=== PATIENT | female | born 1950 | race Hispanic/Latino ===

== ENCOUNTER 2020-01-24 10:49 | Emergency (ER) | payer MEDICARE, OTHER, SELFPAY ==
[2020-01-24] VITALS (29 sets, daily range): BP systolic 147–205; BP diastolic 51–156; PULSE 60–73; RESP 12–20; TEMP 36.6; O2SAT 95–100
--- NOTE | 2020-01-24 11:04 | ECG_ITS ---
Measurements Intervals [place] Rate: 69 P: 44 MT: 168 QRS: -40 QRSD: 147 T: 18 QT: 451 QTc: 484 Interpretive Statements SINUS RHYTHM RIGHT BUNDLE BRANCH BLOCK BASELINE ARTIFACT- II, III, AVF, V3 ABNORMAL ECG Electronically Signed On 01-24-2020 13:40:04 CDT by Fito Mcintosh D.O.
[2020-01-24 11:13] LABS: Basophils Absolute Auto 0.1 K/mm3 (0.0-0.1); Basophils Percent Auto 0.3 % (0.2-1.2); Eosinophils Absolute Auto 0.1 K/mm3 (0-0.3); Eosinophils Percent Auto 0.4 % (0-4.4); Hematocrit 31.7 % (37.0-47.0); Hemoglobin 9.7 g/dL (12.0-15.0); Immature Granulocyte Absolute 0.12 K/mm3 (0.00-0.031); Immature Granulocyte Percent A 0.8 % (0-0.5); Lymphocytes Absolute Auto 0.97 K/mm3 (0.9-3.2); Lymphocytes Percent Auto 6.6 % (18.3-44.2); Mean Corpuscular HGB Conc 30.6 g/dl (32-36); Mean Corpuscular Hemoglobin 28.8 pg (26-34); Mean Corpuscular Volume 94.1 fl (80-100); Mean Platelet Volume 10.8 fl (7.4-10.4); Monocytes Absolute Auto 0.5 K/mm3 (0.1-0.6); Monocytes Percent Auto 3.3 % (2.6-8.5); Neutrophils Percent Auto 88.6 % (45.5-73.1); Platelet Count Result 291 k/mm3 (150-375); Red Blood Count 3.37 M/mm3 (4.2-5.4); Red Cell Distribution Width 13.3 % (11.5-14.5); White Blood Count 14.7 K/mm3 (4.5-10.0)
[2020-01-24] MEDS: PANTOPRAZOLE SODIUM IV 40 MG VIAL IV PUSH (11:46)
[2020-01-24] MEDS: SODIUM CHLORIDE 0.9% IV 500 ML 999 ML IV CONT (11:46)
[2020-01-24 12:05] LABS: Phosphorus 4.4 mg/dL (2.5-4.5)
[2020-01-24 12:06] LABS: Alanine Aminotransferase 8 U/L (4-35); Alkaline Phosphatase 240 U/L (38-126); Aspartate Amino Transferase 15 U/L (14-36); Bilirubin,Total 0.2 mg/dL (0.2-1.3); Lipase 51 U/L (23-300)
[2020-01-24 12:07] LABS: Anion Gap 5 mmol/L (8-16); Blood Urea Nitrogen 29 mg/dL (7-17); Calcium 8.1 mg/dL (8.4-10.2); Carbon Dioxide 28 mmol/L (22-30); Chloride 106 mmol/L (98-107); Estimated Glomerular Filt Rate 26; Glucose 230 mg/dL (65-105); Potassium 4.1 mmol/L (3.4-5.0); Sodium 139 mmol/L (137-145)
[2020-01-24 12:11] LABS: Lipase 49 U/L (23-300)
[2020-01-24 14:02] LABS: Add Urine Microscopic? YES; Appearance Urine Clear (Clear); Bacteria Urine 1+ /hpf; Bilirubin Urine Negative (Negative); Blood Urine Negative (Negative); Color Urine Yellow (Yellow); Glucose Urine UA 3+ mg/dL (Negative); Ketones Urine Negative (Negative); Leukocyte Esterase Ur Negative LEU/UL (Negative); Mucus Urine Rare /lpf; Nitrate Urine Negative (Negative); Protein Urine 3+ mg/dL (Negative); Specific Grav Ur 1.025 (1.001-1.035); Urobilinogen Urine Negative mg/dL (<2.0)
--- NOTE | 2020-01-24 14:12 | ED.GENADULT ---
HPI - General Adult General Chief complaint: Unspecified Stated complaint: HOT FLASHES AND PUKING Time Seen by Provider: 01/24/20 11:06 Source: patient and family Mode of arrival: ambulatory Limitations: no limitations History of Present Illness HPI narrative: Patient is a 69-year-old female who presented to emergency department with family for evaluation of nausea and 1 episode of emesis today noting that she did not feel well this morning but had felt fine yesterday patient has history of renal dialysis and history of infection of the right foot and is currently being scheduled to have amputation patient receives her antibiotics at dialysis and has been compliant with dialysis which she has tomorrow patient on arrival to emergency department in the room in no distress resting comfortably on arrival denying pain. Related Data Home Medications Medication Instructions Recorded Confirmed amlodipine 10 mg PO DAILY 11/03/19 11/03/19 apixaban 5 mg PO BID 11/03/19 11/03/19 carvedilol 25 mg PO BID 11/03/19 11/03/19 gabapentin 200 mg PO TID 11/03/19 11/03/19 insulin aspart U-100 [Novolog 8 unit SUBCUT TID 11/03/19 11/03/19 Flexpen U-100 Insulin] insulin degludec [Tresiba U-100 24 unit SUBCUT HS 11/03/19 11/03/19 Insulin] losartan 50 mg PO DAILY 11/03/19 11/03/19 pravastatin 40 mg PO DAILY 11/03/19 11/03/19 vancomycin in 0.9 % sodium chl 1 g IV Q12H 11/03/19 11/03/19 cefepime 1 g IM EVERY OTHER DAY 01/24/20 clopidogrel 75 mg PO DAILY 01/24/20 Allergies Allergy/AdvReac Type Severity Reaction Status Date / Time No Known Allergies Allergy Verified 01/24/20 10:55 Review of Systems Review of Systems: All systems reviewed & are unremarkable except as noted in HPI and below PMFSH Past Medical History Medical History (Updated 01/24/20 @ 14:19 by Graeme Oconnor PA-C) Below knee amputation Chronic kidney disease Diabetes mellitus Hypertension Osteomyelitis Family History Family History (Updated 12/30/15 @ 23:19 by DOCTOR UNKNOWN) Mother Family history of diabetes mellitus in first degree relative Father Family history of lung cancer Social History Social History (Reviewed 01/24/20 @ 14:15 by NATALI Prado Smoking status: Former smoker Smoking end date: 06/03/15 Alcohol intake: current Gender identity (if verbalized by the patient): Female Exam Narrative: Exam Narrative: GENERAL: Chronically ill-appearing, well-nourished, and in no acute distress. HEAD: Normocephalic, atraumatic. EYES: PERRLA and EOMI. ENT: Nares clear, no rhinorrhea or epistaxis. Mucous membranes moist. Oropharynx without tonsillar hypertrophy exudate or other lesions. NECK: Supple. No adenopathy or masses. CHEST: Clear to auscultation. No respiratory distress. No wheezes rales or rhonchi HEART: Regular rate and rhythm. No murmur heard. Normal peripheral pulses. ABDOMEN: Soft, nontender, nondistended. EXTREMITIES: Normal range of motion. No edema. Patient with left below the knee amputation. Patient with osteomyelitis infection of the right foot which she has been treated for SKIN: Warm, dry, no rash. NEURO: No focal deficits. Alert and oriented x3. Cranial nerves II through XII grossly intact PSYCH: Normal mood and affect. Course Course Emergency Course: Patient in the room at this time resting comfortably in no distress aware of case findings treatment plan and diagnosis follow-up with specialist and primary care patient was given fluid bolus coupled with nausea medication with improvement and is tolerating p.o. intake feeling much better at this time will be discharged home with family who feels comfortable with this plan Vital Signs Vital signs: Vital Signs Temperature 97.8 F 01/24/20 10:52 Pulse Rate 65 01/24/20 10:52 Respiratory Rate 12 01/24/20 10:52 Blood Pressure 147/112 H 01/24/20 10:52 Pulse Oximetry 99 01/24/20 10:52 Temperature 97.8 F 01/24/20 10:52 Pulse Rate 62 08
== END 2020-01-24 14:33 | disposition home or self-care (01) ==
PROVIDERS: Emergency Medicine Emergency Medical Services; Emergency Provider Emergency Medicine; PCP Internal Medicine
DX: R11.2 Nausea with vomiting, unspecified (principal); E11.22 Type 2 diabetes mellitus with diabetic chronic kidney disease; I12.0 Hypertensive chronic kidney disease with stage 5 chronic kidney disease or end stage renal disease; N18.6 End stage renal disease; Z99.2 Dependence on renal dialysis; Z79.4 Long term (current) use of insulin; Z89.519 Acquired absence of unspecified leg below knee; Z87.891 Personal history of nicotine dependence
CPT/HCPCS: 36415; 51701; 80048; 80076; 81001; 83690; 83735; 84100; 85025; 93005; 96361; 96374; 96375; 99284; C9113; J0131; J7040

== ENCOUNTER 2020-01-28 07:45 | Outpatient (RCR) | payer MEDICARE, SELFPAY ==
[2019-11-03 12:10] VITALS: BMI 27.4
--- NOTE | 2019-11-03 12:30 | P.PNWOUND_ITS ---
Wound Care Note Date/Time: 11/03/19 12:30 Assessment and Plan Additional Plan Observe hand after antibiotics are stopped. Review records from her doctors for indications for antibiotics chosen. Continue wound care at [facility]. Change to Santyl daily at home. F/U Wound Center 2 weeks. to see in 1 month Review of Systems Review of Systems: Narrative: End stage renal diabetic followed in [place]. We see her for open surgical wound of the left ring and small finger amputation sites. Surgery done at [facility] and the surgeon chooses not to follow the open dehisced wound. Onset apparently due to vascular steal related to now ligated A-V fistula. Has been on IV Vanco and oral cefalosporin and Metronidazole No negative progression of wound. No drainage. No erythema. Thick yellow dry slough over entire area of sound. Also on thr 2nd metacarpal phalangeal joint radial aspect. That site likely caused by dressings. No new wounds. Antibiotics to stop this week.
--- NOTE | 2019-11-03 14:07 | PCWOUND ---
WOCN NOTE Wound care not following patient for right heel and right foot wound as patient is being followed at [facility] for these wounds.
--- NOTE | 2019-12-01 12:24 | WPDWOUNDNOTE ---
Wound Care Note Date/Time: 12/01/19 12:24 History: Ray amputation of Left 4th and 5th fingers of left hand at [facility] for complications of dialysis fistula. Referred for wound care. Wound width: 6.0 Wound length: 1.5 Wound depth: Undetermined. Drainage: n Surrounding tissue appearance: No cellulitis Tunneling: n Percentage granulation tissue: 2 Treatment/Procedures: kWound measurements improved by 50%. Minimal debridements. Same care. F/Davina in 1 month
--- NOTE | 2019-12-24 09:22 | PCWOUND ---
WOCN NOTE patients daughter called to cancel appointment, she wants to see Dr Rocha at a different date. she will call Dr's office to make a new appointment.
== END 2020-02-01 23:59 | disposition home or self-care (01) ==
LOC: ANHWOC 07:45
PROVIDERS: PCP Internal Medicine; Visit Provider Plastic Surgery
DX: L89.619 Pressure ulcer of right heel, unspecified stage (principal); T81.31XD Disruption of external operation (surgical) wound, not elsewhere classified, subsequent encounter
CPT/HCPCS: 99212; 99213; A9270; G0463

== ENCOUNTER 2020-02-09 11:33 | Outpatient (RCR) | payer MEDICARE, OTHER, SELFPAY ==
[2020-02-02 00:03] VITALS: BMI 27.4
--- NOTE | 2020-02-09 16:53 | WPDWOUNDNOTE ---
Wound Care Note Date/Time: 02/09/20 16:53 History: Open surgical wound left ulnar hand. History of amputation of left 4th and 5th finger. History of A-V shunt vascular steal. Type 2 Diabetes Mellitus End stage renal disease. S/P left BKA. Chronic diabetic right foot wound. Diabetic cardiovascular disease. Assessment and Plan Additional Plan Continue current wound care to hand. Right AKA pending soon per Ortho. Plastic Surgery to F/U one month. Exam Narrative: Exam Narrative: Granulating amputation site 4th and 5th rays. Bone no longer exposed. 1.5 x 4.5 cm. Extrem: General: edema Left upper extremity: hand Hand/finger images: 1. wound site
== END 2020-05-09 23:59 | disposition home or self-care (01) ==
LOC: ANHWOC 11:33
PROVIDERS: PCP Internal Medicine; Visit Provider Plastic Surgery
DX: L89.619 Pressure ulcer of right heel, unspecified stage (principal); T81.31XD Disruption of external operation (surgical) wound, not elsewhere classified, subsequent encounter
CPT/HCPCS: 11042

== ENCOUNTER 2020-02-16 00:37 | Outpatient (CLI) | payer MEDICARE, OTHER, SELFPAY ==
[2020-02-16 17:26] LABS: SARS-CoV-2 RNA PCR Negative
== END 2020-02-16 00:38 | disposition home or self-care (01) ==
LOC: ANHCOVIDDT 00:38
PROVIDERS: PCP Internal Medicine; Visit Provider Orthopaedic Surgery
DX: Z01.812 Encounter for preprocedural laboratory examination (principal); Z20.828 Contact with and (suspected) exposure to other viral communicable diseases
CPT/HCPCS: 87635; C9803; U0003

== ENCOUNTER 2020-02-19 10:00 | Inpatient (IN) | payer MEDICARE, OTHER, SELFPAY ==
[2020-02-11 11:14] VITALS: BMI 27.6
--- NOTE | 2020-02-17 13:39 | WPDANESEPPF ---
Anes - Initial Pre Proc Eval Procedure: Operation Date: 02/18/20 07:30 Proposed Procedures p Right Below Knee Amputation With Immediate Cast - Mauricio Murphy MD Date/Time: 02/17/20 13:39 Surgeon: Mauricio Murphy MD Pre Op Diagnosis: Right Foot Osteomyelitis, Patient Data Age: 69 Gender: F Height: 5 ft 4 in Weight: 73 kg Allergies Allergy/AdvReac Type Severity Reaction Status Date / Time No Known Allergies Allergy Verified 02/18/20 06:24 Home Medications Medication Instructions Recorded Confirmed Type apixaban [Eliquis] 5 mg PO BID 11/03/19 02/18/20 History carvedilol 25 mg PO BID 11/03/19 02/18/20 History gabapentin 300 mg PO TID 11/03/19 02/18/20 History insulin aspart U-100 [Novolog 8 unit SUBCUT TID 11/03/19 02/18/20 History Flexpen U-100 Insulin] insulin degludec [Tresiba U-100 24 unit SUBCUT HS 11/03/19 02/18/20 History Insulin] losartan 50 mg PO QAM 11/03/19 02/18/20 History pravastatin 40 mg PO HS 11/03/19 02/18/20 History vancomycin in 0.9 % sodium chl 1 g IV Q12H 11/03/19 02/18/20 History cefepime 1 g IM EVERY OTHER DAY 01/24/20 02/18/20 History clopidogrel 75 mg PO QAM 01/24/20 02/18/20 History acetaminophen 1,000 mg PO Q6H PRN 02/11/20 02/18/20 History amlodipine 2.5 mg PO QAM 02/11/20 02/18/20 History ferrous sulfate 324 mg PO BID 02/11/20 02/18/20 History oxycodone-acetaminophen 1 - 2 tablet PO Q6H PRN 02/11/20 02/18/20 History sertraline 25 mg PO QAM 02/11/20 02/18/20 History Patient hx anesthesia problems: none Family hx anesthesia problems: none PMFSH Past Medical History Medical History (Updated 01/26/20 @ 19:19 by Mauricio Murphy MD) Anemia Arterial vascular disease Below knee amputation Chronic kidney disease Dyalisis Diabetes mellitus Digital arterial occlusive disease Foot osteomyelitis, right High cholesterol History of amputation of finger Hypertension Osteomyelitis Vision abnormalities Surgical History Surgical History (Updated 01/26/20 @ 19:19 by Mauricio Murphy MD) History of amputation below knee left History of amputation below knee Social History Social History Smoking packs per day: 1 Smoking cigarettes per day: 20.0 Years smoked: 40 Smoking pack-years: 40.00 Smoking status: Former smoker Smoking end date: 06/03/15 Alcohol intake: former Alcohol use details: DRANK SOCIALLY YEARS AGO Substance use: never Living arrangements: with family Additional living arrangements comments: LIVES WITH [facility] [phone] Gender identity (if verbalized by the patient): Female Spiritual care concerns: No Anes - Eval Final PreProcedure Day of Procedure 02/17/20 13:39 Patient weight: overweight Heart: regular rate and rhythm Lungs: clear to auscultation Airway: Mallampati scale class III Neurological: alert and oriented Last oral intake: >/= 8 hours ASA classification: III Emergent: no Anesthetic plan: proceed Anesthesia type and monitoring: general LMA (or ETT) and standard monitoring Informed Consent: The patient's anesthetic plan and its attendant risks and benefits were discussed with the patient/family/POA. Questions were solicited and answers provided to the satisfaction of the patient/family/POA.
[2020-02-18] VITALS (11 sets, daily range): BP systolic 161–192; BP diastolic 47–68; PULSE 62–88; RESP 10–18; TEMP 36.2–36.8; O2SAT 96–100; BMI 27.7
--- NOTE | 2020-02-18 07:05 | WPDHPUPDATE1 ---
History and Physical Update Update Date/Time: 02/18/20 07:05 History and Physical has been reviewed, including an updated exam of the patient. There are NO changes in the patient's condition. Covid test negative. Risks, benefits, and alternatives have been discussed and questions answered. Patient agrees to proceed with procedure.
[2020-02-18 07:11] LABS: Glucose Point of Care 99 (65-105)
[2020-02-18] MEDS: SODIUM CHLORIDE 0.9% IV 500 ML 30 ML IV CONT (07:21)
[2020-02-18] MEDS: fentaNYL CITRATE INJ (*CRX) 100 MCG/2 ML VIAL 25 MCG IV PUSH (07:22)
[2020-02-18] MEDS: KETOROLAC 15 MG/ML VIAL (*BKC) IV PUSH (07:22)
[2020-02-18 07:25] LABS: Anion Gap 2 mmol/L (8-16); Blood Urea Nitrogen 12 mg/dL (7-17); Carbon Dioxide 32 mmol/L (22-30); Chloride 103 mmol/L (98-107); Estimated CRCL calculation 27 ml/min; Estimated Glomerular Filt Rate 34; Glucose 105 mg/dL (65-105); Potassium 3.8 mmol/L (3.4-5.0); Sodium 137 mmol/L (137-145)
[2020-02-18] MEDS: ceFAZolin 2 GM/D5W 50 ML 2 GM/50 ML BAG IVPB (07:32)
[2020-02-18 07:43] LABS: INR 1.3; Prothrombin Time 16.1 Seconds (11.1-14.7)
[2020-02-18 07:44] LABS: Partial Thromboplastin Time 47.7 SECONDS (22.3-36.8)
[2020-02-18] MEDS: BUPIVACAINE/EPINEPHRINE 0.5% 30 ML VIAL INFILTRATE (08:27)
[2020-02-18 09:41] LABS: Glucose Point of Care 79 (65-105)
--- NOTE | 2020-02-18 09:49 | P.OP_ITS ---
Procedure Note - Detailed Date of procedure: 02/18/20 Pre-op diagnosis: Right Foot Osteomyelitis, Procedure performed: right below-knee amputation with immediate cast fitting Description of procedure: Indications: Patient is a 69-year-old woman with severe peripheral arterial disease, diabetes with neuropathy and renal failure. She has undergone previous left below-knee amputation. She now has chronic osteomyelitis and ulceration of the right foot. She presents for right below- knee amputation as she was unable to heal the right foot ulcer despite revascularization attempts. What was done: Patient identified in the preoperative holding. Informed consent given. Operative extremity marked. Patient received intravenous antibiotics. Patient brought to the operating room where underwent general anesthetic by anesthesia team. Positioned supine on operating room table. Time-out performed confirming the patient, site of the surgery and the plan. Leg then prepped and draped usual sterile surgical fashion using Betadine prep solution. Calf and leg exsanguinated and a thigh tourniquet inflated to 250 mmHg. Anatomic landmarks mapped out on the skin to allow for a posterior flap and approximately 12 cm of tibia below the tibial tubercle. Skin incision made with a 10 blade knife. Hemostasis controlled electrocautery. Cautery dissection carried down circumferentially through the fascia. Dissection then carried around the proximal fibula, retractors placed in sagittal saw used to transect the fibula. Elevator used to dissect soft tissue off of the tibia. Tibia once again measured and the tibia osteotomy performed with a sagittal saw with retractors posterior to protect the soft tissue. Saphenous vessels and peroneal vessels were identified and ligated with 2 0 silk suture. The peroneal nerve and saphenous nerve identified and anesthetized with 0.5% Marcaine with epinephrine and ligated. Tibia was then brought forward and an amputation knife was placed posterior to the tibia and the distal fibula and the soft tissue was transected away from the bone. The cut was completed through the Achilles tendon. The distal leg ankle and foot were then passed off as specimen. Tibial artery identified and ligated with 2 0 silk suture. Tibial nerve identified and anesthetized with 0.5% Marcaine with epinephrine and ligated. Any other bleeding points coagulated with cautery. The tourniquet was then released. Any further bleeding was controlled with cautery or 2 0 silk suture ligation. After thorough hemostasis the wound was thoroughly irrigated with antibiotic solution. The anterior cortex of the tibia was shaped with the saw to reduce pressure. Thorough irrigation again performed. Myodesis was then performed of the gastrocnemius over the distal tibia using #2 Ethibond suture placed through trans osseous holes in the distal tibia. Fascia then repaired with 0 Vicryl interrupted suture. Subcutaneous tissue repaired with 2 Vicryl and 3 0 Monocryl interrupted suture and skin repaired with randa And 3 0 nylon interrupted suture. Sterile dressing followed by a immediate fitting weight-bearing cast using fiberglass cast material. Patient awoken from anesthesia, extubated and taken to recovery room in stable condition. All sponge needle and instrument counts correct at the end of the case. Anesthesia: GLMA Surgeon: Mauricio Murphy MD Claims Service Adjustor: 1st executive chef assistant Estimated blood loss (mL): 50 Tourniquet time (min): 30 Drains: No Packing: No Pathology: none sent Complications: None Condition: stable Disposition: PACU Findings: FHL and posterior tibial and flexor digitorum musculature dusky. Peroneal calf and tibialis anterior musculature with good vascularity.
--- NOTE | 2020-02-18 11:00 | ADMGEN ---
This patient, Tawana Prado, was admitted to Medical Room 342-01. Patient/family oriented to hospital policies and general routines including ID bracelet, bed and alarms, visiting hours, pain management, procedures, bathroom and other care routines, personal items, smoking policy, room service/diet, and visiting hours. Valuables list has been completed. Information on how to activate the Rapid Response Team has been discussed. Patient/Family are encouraged to report perceived risks to care and to ask questions if they do not understand what they are told or what they should do.
[2020-02-18 11:18] LABS: Glucose Point of Care 79 (65-105)
--- NOTE | 2020-02-18 14:10 | WPDCN ---
Assessment and Plan Assessment and plan (1) Arterial vascular disease: Code(s): I70.90 - Unspecified atherosclerosis Status: Acute Assessment and Plan: Status post right below-knee amputation. Wound care and pain control per Dr. Murphy. (2) End-stage renal disease on hemodialysis: Code(s): N18.6 - End stage renal disease; Z99.2 - Dependence on renal dialysis Status: Acute Assessment and Plan: Nephrology consulted for dialysis on Saturday. (3) Insulin dependent type 2 diabetes mellitus: Code(s): E11.9 - Type 2 diabetes mellitus without complications; Z79.4 - care home (current) use of insulin Status: Acute Assessment and Plan: Continue basal insulin and initiate sliding scale insulin, Accu-Cheks, and hypoglycemic protocol. Check hemoglobin A1c in a.m. (4) Hypertension: Code(s): I10 - Essential (primary) hypertension Status: Acute Assessment and Plan: Blood pressures were reviewed and they are not at goal in the 160s, but seem historically poorly controlled. Continue antihypertensives and monitor closely. (5) Chronic anemia: Code(s): D64.9 - Anemia, unspecified Status: Acute Assessment and Plan: Check hemoglobin and hematocrit in a.m. Additional Plan Thank you for allowing us to participate in this patient's care. Please do not hesitate to contact us with any questions. Supervising physician for this history and physical is Dr. Vanita El. HPI Data of Consult Date/Time: 02/18/20 14:10 Requesting Physician: Mauricio Murphy MD Primary Care Provider: Rut Viera, Consult Narrative Narrative: Tawana Prado is a 69-year-old female with peripheral vascular disease, insulin-dependent diabetes, end-stage renal disease on hemodialysis, hypertension, chronic anemia whom the hospitalist service has been consulted for management of her medical conditions postoperatively. She has suffered from osteomyelitis of the right foot with continued right lower extremity pain for quite some time, and unfortunately attempts at revascularization have been unsuccessful or impossible and thus she presented today for right [id number] amputation. Her surgery was performed today under general anesthesia and there were no immediate complications documented. Estimated blood loss was 50 mL. At the time my evaluation she complains of a 10/10 pain at the site of the amputation and has a difficult time describing the pain. She denies postoperative fever, chills, chest pain, shortness of breath, nausea, and vomiting. Review of Systems Review of Systems: Narrative: Twelve systems were reviewed with pertinent positives and negatives as per HPI. No recent cold or flu symptoms. She denies recent travel and sick contacts. She believes her diabetes is fairly well controlled. No blurry vision, polydipsia, or polyuria. Except as documented, all other systems were reviewed and are negative. [facility] Past Medical History Medical History (Updated 02/18/20 @ 22:37 by Susan Escudero PA-C) Arterial vascular disease Below knee amputation Chronic anemia Diabetes mellitus Digital arterial occlusive disease End-stage renal disease on hemodialysis Foot osteomyelitis, right History of amputation of finger Hyperlipidemia Hypertension 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 Osteomyelitis Surgical History Surgical History (Updated 02/18/20 @ 22:33 by Susan Escudero PA-C) Amputation of right forefoot :Right 4th and 5th ray amputation in 04/2017. :Right foot transmetatarsal a
[2020-02-18] MEDS: GABAPENTIN 300 MG CAPSULE PO ×2 (14:48→22:01)
[2020-02-18] MEDS: FERROUS SULFATE 324 MG TABLET PO (16:44)
[2020-02-18] MEDS: APIXABAN 5 MG TABLET PO (16:44)
[2020-02-18] MEDS: oxyCODONE HCL (*CRX) 5 MG TAB IR PO (16:48)
[2020-02-18] MEDS: diazePAM (*CRX) 5 MG TABLET PO (16:48)
[2020-02-18 17:09] LABS: Glucose Point of Care 130 (65-105)
[2020-02-18] MEDS: INSULIN ASPART (*BKC) 100 UNITS/ML 8 UNITS SUB-Q (17:14)
[2020-02-18] MEDS: MORPHINE SULFATE (*CRX) 2 MG/ML INJ IV PUSH ×2 (18:45→22:02)
[2020-02-18] MEDS: carvediloL 25 MG TABLET PO (20:40)
[2020-02-18] MEDS: DOCUSATE SODIUM 100 MG CAPSULE PO (20:40)
[2020-02-18] MEDS: INSULIN GLARGINE (*BKC) 100 UNITS/ML 24 UNITS SUB-Q (20:40)
[2020-02-18] MEDS: PRAVASTATIN SODIUM 20 MG TABLET 40 MG PO (20:40)
[2020-02-18] MEDS: FAMOTIDINE 20 MG TABLET PO (20:40)
[2020-02-19] VITALS (21 sets, daily range): BP systolic 101–212; BP diastolic 44–70; PULSE 69–82; RESP 16–18; TEMP 36.3–37; O2SAT 93–98; BMI 27.7
[2020-02-19] MEDS: oxyCODONE HCL (*CRX) 5 MG TAB IR PO ×2 (06:03→18:04)
[2020-02-19] MEDS: GABAPENTIN 300 MG CAPSULE PO ×2 (06:03→20:22)
[2020-02-19 06:16] LABS: Basophils Percent Auto 0.3 % (0.2-1.2); Eosinophils Absolute Auto 0.1 K/mm3 (0-0.3); Eosinophils Percent Auto 0.9 % (0-4.4); Hematocrit 26.3 % (37.0-47.0); Hemoglobin 7.8 g/dL (12.0-15.0); Immature Granulocyte Absolute 0.09 K/mm3 (0.00-0.031); Immature Granulocyte Percent A 0.9 % (0-0.5); Lymphocytes Absolute Auto 1.06 K/mm3 (0.9-3.2); Lymphocytes Percent Auto 10.8 % (18.3-44.2); Mean Corpuscular HGB Conc 29.7 g/dl (32-36); Mean Corpuscular Hemoglobin 27.7 pg (26-34); Mean Corpuscular Volume 93.3 fl (80-100); Mean Platelet Volume 10.7 fl (7.4-10.4); Monocytes Absolute Auto 0.7 K/mm3 (0.1-0.6); Monocytes Percent Auto 7.3 % (2.6-8.5); Neutrophils Absolute Auto 7.8 K/mm3 (1.3-6.7); Neutrophils Percent Auto 79.8 % (45.5-73.1); Platelet Count Result 275 k/mm3 (150-375); Red Blood Count 2.82 M/mm3 (4.2-5.4); Red Cell Distribution Width 13.9 % (11.5-14.5); White Blood Count 9.8 K/mm3 (4.5-10.0)
[2020-02-19 06:40] LABS: Anion Gap 4 mmol/L (8-16); Blood Urea Nitrogen 15 mg/dL (7-17); Calcium 7.6 mg/dL (8.4-10.2); Carbon Dioxide 29 mmol/L (22-30); Chloride 102 mmol/L (98-107); Estimated CRCL calculation 26 ml/min; Estimated Glomerular Filt Rate 30; Glucose 108 mg/dL (65-105); Sodium 135 mmol/L (137-145)
[2020-02-19 07:13] LABS: Hemoglobin A1C 6.8 % (<5.7)
[2020-02-19 07:40] LABS: Glucose Point of Care 124 (65-105)
[2020-02-19] MEDS: INSULIN ASPART (*BKC) 100 UNITS/ML 8 UNITS SUB-Q (07:58)
[2020-02-19] MEDS: FERROUS SULFATE 324 MG TABLET PO ×2 (07:59→18:06)
[2020-02-19] MEDS: carvediloL 25 MG TABLET PO ×2 (08:00→20:22)
[2020-02-19] MEDS: CLOPIDOGREL BISULFATE 75 MG TABLET PO (08:00)
[2020-02-19] MEDS: SERTRALINE HCL 25 MG TABLET PO (08:00)
[2020-02-19] MEDS: APIXABAN 5 MG TABLET PO ×2 (08:00→18:06)
[2020-02-19] MEDS: DOCUSATE SODIUM 100 MG CAPSULE PO ×2 (08:00→20:22)
[2020-02-19] MEDS: LOSARTAN POTASSIUM 50 MG TABLET PO (08:00)
[2020-02-19] MEDS: FAMOTIDINE 20 MG TABLET PO ×2 (08:00→20:22)
[2020-02-19] MEDS: amLODIPine BESYLATE 2.5 MG TABLET PO (08:01)
[2020-02-19] MEDS: diazePAM (*CRX) 5 MG TABLET PO ×2 (08:37→18:04)
[2020-02-19] MEDS: MORPHINE SULFATE (*CRX) 2 MG/ML INJ IV PUSH (08:38)
--- NOTE | 2020-02-19 08:46 | PM.PNORT ---
Progress Note: A&P Assessment and Plan (1) Amputation below knee: Code(s): S88.119A - Complete traumatic amputation at level between knee and ankle, unspecified lower leg, initial encounter Status: Acute Assessment and Plan: postoperative day 1. Right below-knee amputation. Cast in place with patient having a lot of pain and difficulty with transfers secondary to the weight of the cast. Plan to remove cast to allow patient to flex knee in to assist with transfers to chair. Reviewed pain control. Valium for muscle spasm. (2) End-stage renal disease on hemodialysis: Code(s): N18.6 - End stage renal disease; Z99.2 - Dependence on renal dialysis Status: Acute Assessment and Plan: Diabetes, renal failure, arterial disease, dialysis. Appreciate hospitalist consultation. Appreciate Nephrology. (3) Arterial vascular disease: Code(s): I70.90 - Unspecified atherosclerosis Status: Acute Subjective Subjective Date/Time Seen: 02/19/20 08:46 patient awake oriented. Complains of right calf pain. Difficulty moving with cast place. Complains of SYLVAIN horses right leg unable to bend knee. Review of Systems Constitutional: Constitutional: Denies fever(s) Eyes: Eyes: Denies blurry vision ENT: Reports Normal hearing present Cardiovascular: Cardiovascular: Denies chest pain and Denies dyspnea Respiratory: Respiratory: Denies dyspnea and Denies wheezing Gastrointestinal: Gastrointestinal: Denies abdominal pain Genitourinary: Genitourinary: Denies urinary urgency and Reports other ( Dialysis) Musculoskeletal: Musculoskeletal: Reports as per HPI Integumentary/Breasts: Skin/Breast: Reports other ( left hand wound with dressing) Neurologic: Reports Normal hearing present, Denies behavioral changes, Denies confusion, Denies numbness and Denies convulsions Psychiatric: Psychiatric: Denies behavioral changes, Denies confusion and Denies hallucinations Endocrine: Endocrine: Denies heat intolerance Hematologic/Lymphatic: Hematologic/Lymphatic: Denies easy bleeding Allergic/Immunologic: Allergic/Immunologic: Denies wheezing Exam Const: General: no acute distress and ill appearing chronically; No in distress or confusion Orientation/consciousness: patient oriented x3 and No confusion HENMT: Head: normal to inspection, normocephalic and atraumatic Eyes: Conjunctivae: conjunctivae normal Sclera: sclerae normal Resp: Effort & Inspection: normal respiratory effort and no audible wheezes Neuro: General: patient oriented x3 and No confusion Extrem: Other: cast in place right leg. Tender at the thigh to palpation. Two finger with at the proximal cast. Left leg amputation incision well-healed. No erythema or warmth. Psych: Affect: normal affect Objective Data Vital Signs Vital Signs: Vital Signs - 24 hr 02/18/20 09:35 02/18/20 09:50 02/18/20 10:05 Temperature 97.3 F L Pulse Rate 66 67 66 Respiratory Rate 10 L 10 L 11 L Blood Pressure 161/56 H 167/68 H 181/63 H Pulse Oximetry 100 100 100 02/18/20 10:08 02/18/20 10:20 02/18/20 10:35 Temperature Pulse Rate 66 62 64 Respiratory Rate 10 L 11 L 16 Blood Pressure 165/59 H 163/53 H Pulse Oximetry 100 100 99 02/18/20 11:21 02/18/20 14:00 02/18/20 20:40 Temperature 97.2 F L 97.8 F Pulse Rate 63 88 77 Respiratory Rate 12 18 Blood Pressure 165/49 H 192/48 H Pulse Oximetry 98 97 02/18/20 20:56 02/19/20 04:45 02/19/20 08:00 Temperature 98.1 F 98.3 F Pulse Rate 79 79 80 Respiratory Rate 16 16 Blood Pressure 174/52 H 212/70 H Pulse Oximetry 96 98 Intake/Output Intake/Output: Intake & Output 02/16/20 02/17/20 02/18/20 02/19/20 23:59 23:59 23:59 23:59 Intake Total 1220 200 Output Total 400 450 Balance 820 -250 Meds/Results Medications: Active Medications Generic Name Dose Route Start Last Admin Trade Name Freq PRN Reason Stop Dose Admin Acetaminophen 1,000 mg
--- NOTE | 2020-02-19 09:27 | PM.PROC ---
Procedure Note - Detailed Date of procedure: 02/19/20 Pre-op diagnosis: Right Foot Osteomyelitis, Surgeon: Mauricio Murphy MD cast removed right leg. Skin intact. Incision clean dry and intact with mild sanguinous drainage. Good skin color. Patient with noted pain relief after cast removal. Dressing instructions entered. Patient tolerated without incident.
--- NOTE | 2020-02-19 10:19 | PCWOUND ---
WOCN NOTE Entered orders for wound care for left hand wound. patient to continue home orders for daily care.
[2020-02-19] MEDS: COLLAGENASE OINT 30 GM TUBE 1 APPLIC TOPICAL (10:59)
--- NOTE | 2020-02-19 11:21 | PCOTNOTE ---
Attempted to see patient this am, however patient unable to arouse for functional OT at this time. Daughter at bedside stated patient was having a lot of pain this am and has been lethargic from medicine. Pt not seen for this reason.
[2020-02-19] MEDS: GLUCOSE ORAL GEL 15 GM OF GLUCSE IN 37.5 GM TUBE PO (11:41)
[2020-02-19 11:42] LABS: Glucose Point of Care 54 (65-105)
[2020-02-19] MEDS: GLUCAGON FOR INJ 1 MG VIAL IM (11:59)
--- NOTE | 2020-02-19 12:18 | PM.IMPN ---
Progress Note: A&P Assessment and Plan (1) Amputation below knee: Code(s): S88.119A - Complete traumatic amputation at level between knee and ankle, unspecified lower leg, initial encounter Status: Acute Assessment and Plan: Status post right below-knee amputation on 02/19/[address] Murphy. Pain management, Discharge planning, Post-op care, DVT Prophylaxis per Dr. Murphy Continue Wound Care management. (2) Arterial vascular disease: Code(s): I70.90 - Unspecified atherosclerosis Status: Acute Assessment and Plan: Severe, chronic arterial vascular disease. She was on long-term IV antibiotics for chronic wound to right foot without any improvement even with revascularization. Decided to do a right BKA. 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 Both wounds are stable and being monitored by wound care at this time. Continue the patient's Eliquis and Plavix. (3) End-stage renal disease on hemodialysis: Code(s): N18.6 - End stage renal disease; Z99.2 - Dependence on renal dialysis Status: Acute Assessment and Plan: Nephrology was consulted she had dialysis today. Creatinine appears to be stable at 1.7, BUN 15, and GFR 30. Continue monitoring renal function and electrolytes during hospitalization. (4) Insulin dependent type 2 diabetes mellitus: Code(s): E11.9 - Type 2 diabetes mellitus without complications; Z79.4 - geophysics scientist (current) use of insulin Status: Acute Assessment and Plan: Hemoglobin A1c is 6.8% which is pretty well controlled. She had been restarted on her home Lantus 24 units and 8 units of insulin with meals and became hypoglycemic today. I decreased her Lantus at night to be 15 units and stopped her mealtime insulin and is implemented the sliding scale insulin. We may even hold her Lantus tonight if she continues to be hypoglycemia or low normal. Continue monitoring glucose ACHS. Initiate sliding scale insulin and hypoglycemic protocol. (5) Hypertension: Code(s): I10 - Essential (primary) hypertension Status: Acute Assessment and Plan: Blood pressures were reviewed and they are improved today during dialysis. Continue antihypertensives and monitor closely. (6) Chronic anemia: Code(s): D64.9 - Anemia, unspecified Status: Acute Assessment and Plan: Appears her hemoglobin in January was 9.7, today was 7.8. Most likely chronic from CKD on dialysis also slightly lower from acute blood loss from amputation yesterday. Will continue monitoring H&H. No acute signs of bleeding at this time. Transfuse as needed. Time Spent With Patient Time with patient: 25 - 35 minutes Subjective Date/time seen: 02/19/20 12:18 Interval history: Date of service 02/19/2020: Patient is very drowsy today, daughter states she received morphine and Valium this morning. Patient denies any pain at this time. She is arousable to touch and saying her name. Her glucose was low and she denies increased thirst, lightheadedness, dizziness or any other symptoms. She denies chest pain, shortness of breath, fever, chills, cough, nausea, vomiting, diarrhea, constipation, urinary symptoms, or any other symptoms at this time. Review of Systems Review of Systems: All systems reviewed & are unremarkable except as noted in HPI and below Exam Narrative: Exam Narrative: General: 69-year-old woman sitting up in the chair with her daughter at bedside. Appears comfortable. In no acute distress. Skin: No jaundice or cyanosis. Good skin turgor. Neck: Full range of motion
--- NOTE | 2020-02-19 12:18 | PCDIET ---
Hypoglycemic protocol x2 for glucose of 54/52. After second hypoglycemic treatment, bedside glucose 96. IM injection given for second treatment r/t IV access unable to flush. Hospitalist notified and is adjusting insulin administration.
[2020-02-19 12:33] LABS: Glucose Point of Care 52 (65-105)
[2020-02-19 12:33] LABS: Glucose Point of Care 96 (65-105)
--- NOTE | 2020-02-19 13:25 | PM.CNNEP ---
Assessment and Plan Assessment and plan (1) End-stage renal disease on hemodialysis: Code(s): N18.6 - End stage renal disease; Z99.2 - Dependence on renal dialysis Status: Acute Assessment and Plan: the patient has end-stage renal disease. She has been on dialysis for about a year. Dialysis is generally uneventful according to her daughter. We will do dialysis today and take 1 or 2L off as tolerated. She has a normal potassium so will use a 3K bath. Her hemoglobin is below 11 saw go ahead and give her some EPO. It is likely the hemoglobin will drop some because of the surgery. (2) Insulin dependent type 2 diabetes mellitus: Code(s): E11.9 - Type 2 diabetes mellitus without complications; Z79.4 - [facility] (current) use of insulin Status: Acute Assessment and Plan: The patient is on Accu-Cheks and sliding-scale insulin (3) Hypertension: Code(s): I10 - Essential (primary) hypertension Status: Acute Assessment and Plan: her blood pressure is high. She will get back on her blood pressure medications. We will remove some fluid on dialysis and will reassess at that point. (4) Erythropoietin deficiency anemia: Code(s): D63.1 - Anemia in chronic kidney disease Status: Acute Assessment and Plan: Hemoglobin is 10.7. Will give her some EPOgen. (5) Renal osteodystrophy: Code(s): N25.0 - Renal osteodystrophy Status: Acute Assessment and Plan: Will get a renal function panel in the morning. History of Present Illness Reason for Consult Consult date: 02/19/20 Chief Complaint Chief complaint: Right Foot Osteomyelitis, History of Present Illness Narrative: Tawana is a very pleasant 69-year-old lady who has multiple medical problems including end-stage renal disease on dialysis for about a year, diabetes with neuropathy nephropathy and retinopathy, peripheral vascular disease status post left BKA in 2016 and now with a BKA this admission because of vascular disease and a nonhealing wound. The patient also has hypertension, hyperlipidemia, depression, and is on anticoagulation. The patient is sleepy because of pain pills but Cyndi her daughter was present in gave me most of the history as well as what is in her chart. The patient came in the hospital because she needed an amputation. This was after extensive attempts at saving her leg were unsuccessful. She had severe pain in the leg which also drove of this decision. The patient gets dialysis 3 times a week. She does pretty well on the machine. She has a catheter. She had a left AV fistula but developed steal and lost a couple of fingers recently because of this. Review of Systems Review of Systems: ROS unobtainable: Yes unobtainable due to medical condition Endocrine: Endocrine: Reports no additional endocrine complaints PMFSH Past Medical History Medical History Amputation below knee Arterial vascular disease Below knee amputation Chronic anemia Diabetes mellitus Digital arterial occlusive disease End-stage renal disease on hemodialysis Foot osteomyelitis, right History of amputation of finger Hyperlipidemia Hypertension 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 Osteomyelitis Surgical History Surgical History Amputation of right forefoot :Right 4th and 5th ray amputation in 04/2017. :Right foot transmetatarsal amputation with partial fasciotomy due to wet gangrene, osteomyelitis, and necrotizing fasciitis in May 2017. 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 History of below-knee amputation of both lower extremities Left afyll-[id number]-uusw amputation in 2017. Right [id number] amputation in 02/2020. History o
--- NOTE | 2020-02-19 13:50 | PC.NURSE ---
Patient to dialysis per recliner. Report to ALVARO Mc.
[2020-02-19] MEDS: SODIUM CHLORIDE 0.9% IV 1,000 ML 999 ML IV CONT (13:58)
[2020-02-19] MEDS: EPOETIN ALFA-EPBX 10,000 UNITS/ML VIAL 10000 UNITS IV PUSH (14:00)
[2020-02-19 16:59] LABS: Hepatitis B Surface Antigen Negative (Negative)
[2020-02-19] MEDS: HEPARIN SODIUM 1,000 UNITS/ML VIAL 1000 UNITS IV PUSH (17:17)
[2020-02-19 17:18] LABS: Hepatitis B Surface Anti Res Positive
--- NOTE | 2020-02-19 17:57 | PC.NURSE ---
Patient returned from Dialysis per chair.
[2020-02-19 18:00] LABS: Glucose Point of Care 114 (65-105)
[2020-02-19] MEDS: INSULIN GLARGINE (*BKC) 100 UNITS/ML 15 UNITS SUB-Q (20:21)
[2020-02-19] MEDS: PRAVASTATIN SODIUM 20 MG TABLET 40 MG PO (20:22)
[2020-02-19 20:47] LABS: Glucose Point of Care 147 (65-105)
[2020-02-20] VITALS (13 sets, daily range): BP systolic 131–186; BP diastolic 46–72; PULSE 67–78; RESP 16–20; TEMP 36.3–37.4; O2SAT 94–98
[2020-02-20] MEDS: diazePAM (*CRX) 5 MG TABLET PO (03:06)
[2020-02-20] MEDS: oxyCODONE HCL (*CRX) 5 MG TAB IR PO ×3 (03:06→14:58)
[2020-02-20] MEDS: GABAPENTIN 300 MG CAPSULE PO ×3 (05:36→21:14)
[2020-02-20 06:01] LABS: Albumin Level 2.3 g/dL (3.5-5.1); Anion Gap 3 mmol/L (8-16); Blood Urea Nitrogen 13 mg/dL (7-17); Calcium 7.6 mg/dL (8.4-10.2); Carbon Dioxide 34 mmol/L (22-30); Chloride 96 mmol/L (98-107); Estimated CRCL calculation 27 ml/min; Estimated Glomerular Filt Rate 28; Glucose 136 mg/dL (65-105); Phosphorus 3.6 mg/dL (2.5-4.5); Potassium 3.8 mmol/L (3.4-5.0); Sodium 133 mmol/L (137-145)
[2020-02-20 06:06] LABS: Hematocrit 23.1 % (37.0-47.0); Mean Corpuscular HGB Conc 29.9 g/dl (32-36); Mean Corpuscular Hemoglobin 27.6 pg (26-34); Mean Corpuscular Volume 92.4 fl (80-100); Mean Platelet Volume 10.7 fl (7.4-10.4); Platelet Count Result 223 k/mm3 (150-375); Red Cell Distribution Width 14.1 % (11.5-14.5); White Blood Count 8.1 K/mm3 (4.5-10.0)
[2020-02-20 06:10] LABS: Hemoglobin 6.9 g/dL (12.0-15.0)
[2020-02-20 07:43] LABS: Glucose Point of Care 123 (65-105)
[2020-02-20] MEDS: carvediloL 25 MG TABLET PO ×2 (08:08→21:18)
[2020-02-20] MEDS: SERTRALINE HCL 25 MG TABLET PO (08:08)
[2020-02-20] MEDS: CLOPIDOGREL BISULFATE 75 MG TABLET PO (08:08)
[2020-02-20] MEDS: FERROUS SULFATE 324 MG TABLET PO ×2 (08:08→16:46)
[2020-02-20] MEDS: amLODIPine BESYLATE 2.5 MG TABLET PO (08:08)
[2020-02-20] MEDS: APIXABAN 5 MG TABLET PO ×2 (08:09→16:46)
[2020-02-20] MEDS: LOSARTAN POTASSIUM 50 MG TABLET PO (08:09)
--- NOTE | 2020-02-20 08:13 | PM.PNORT ---
Progress Note: A&P Assessment and Plan (1) Amputation below knee: Code(s): S88.119A - Complete traumatic amputation at level between knee and ankle, unspecified lower leg, initial encounter Status: Acute Assessment and Plan: Postoperative day 2. Right BKA pain better after removing cast. Daily dressing changes. Transfers to chair with assistance. PT/OT. Appreciate Hospitalists/assistant customer service manager. Dialysis yesterday and plan for dialysis on Saturday. Acute anemia. Plan for 1 unit PRBC replacement today (2) Anemia associated with acute blood loss: Code(s): D62 - Acute posthemorrhagic anemia Status: Acute Assessment and Plan: planned transfusion today Subjective Subjective Date/Time Seen: 02/20/20 08:13 patient awake and answers questions. Eating breakfast. Appears comfortable. Patient states better with cast removed. Still has cramping, tingling and pain right leg Exam Const: General: no acute distress and ill appearing chronically; No in distress or confusion Orientation/consciousness: patient oriented x3 and No confusion HENMT: Head: normal to inspection, normocephalic and atraumatic Eyes: Conjunctivae: conjunctivae normal Sclera: sclerae normal Resp: Effort & Inspection: normal respiratory effort and no audible wheezes Neuro: General: patient oriented x3 and No confusion Extrem: Other: right leg amputation incision clean and dry. No erythema. Tender to palpation amputation stump diffusely. Able to flex and extend knee. Left leg amputation incision well-healed. No erythema or warmth. Psych: Affect: normal affect Objective Data Vital Signs Vital Signs: Vital Signs - 24 hr 02/19/20 13:50 02/19/20 13:56 02/19/20 14:15 Temperature 98 F Pulse Rate 78 76 78 Respiratory Rate 18 Blood Pressure 146/66 H 153/68 H 101/44 L Pulse Oximetry 02/19/20 14:30 02/19/20 14:45 02/19/20 15:00 Temperature Pulse Rate 78 73 70 Respiratory Rate Blood Pressure 117/51 L 159/68 H 154/67 H Pulse Oximetry 02/19/20 15:15 02/19/20 15:30 02/19/20 15:45 Temperature Pulse Rate 69 70 74 Respiratory Rate Blood Pressure 145/57 H 152/63 H 144/60 H Pulse Oximetry 02/19/20 16:00 02/19/20 16:15 02/19/20 16:30 Temperature Pulse Rate 77 75 76 Respiratory Rate Blood Pressure 112/54 L 137/57 L 126/56 L Pulse Oximetry 02/19/20 16:45 02/19/20 17:00 02/19/20 17:15 Temperature Pulse Rate 75 78 79 Respiratory Rate Blood Pressure 131/59 L 125/49 L 112/49 L Pulse Oximetry 02/19/20 17:28 02/19/20 17:35 02/19/20 20:10 Temperature 98 F 97.3 F L Pulse Rate 79 81 82 Respiratory Rate 18 16 Blood Pressure 133/64 141/56 H 154/52 H Pulse Oximetry 93 02/19/20 20:22 02/20/20 06:00 02/20/20 08:08 Temperature 97.4 F L Pulse Rate 82 73 72 Respiratory Rate 16 Blood Pressure 165/72 H Pulse Oximetry 98 Intake/Output Intake/Output: Intake & Output 02/17/20 02/18/20 02/19/20 02/20/20 23:59 23:59 23:59 23:59 Intake Total 1220 560 200 Output Total 400 1650 Balance 820 -1090 200 Meds/Results Medications: Active Medications Generic Name Dose Route Start Last Admin Trade Name Freq PRN Reason Stop Dose Admin Acetaminophen 1,000 mg 02/18/20 10:52 Tylenol Tablet PO Q6H PRN mild pain Amlodipine Besylate 2.5 mg 02/19/20 09:00 02/20/20 08:08 Norvasc PO 2.5 mg QAM KEMI Administration Apixaban 5 mg 02/18/20 17:00 02/20/20 08:09 Eliquis PO 5 mg BID KEMI Administration Carvedilol 25 mg 02/18/20 21:00 02/20/20 08:08 Coreg PO 25 mg Q12HR KEMI Administration Clopidogrel Bisulfate 75 mg 02/19/20 09:00 02/20/20 08:08 Plavix PO 75 mg QAM KEMI Administration Collagenase 1 applic 02/19/20 09:00 02/19/20 10:59 Santyl Oint TOPICAL 1 applic QAM KEMI Administration Dextrose 12.5 gm 02/18/20 22:07 Dextrose 50% Syringe IV PUSH PRN PRN Hypogl
[2020-02-20] MEDS: FAMOTIDINE 20 MG TABLET PO ×2 (09:06→21:14)
[2020-02-20] MEDS: DOCUSATE SODIUM 100 MG CAPSULE PO ×2 (09:06→21:14)
[2020-02-20] MEDS: SODIUM CHLORIDE 0.9% IV 250 ML 30 ML IV CONT (10:10)
[2020-02-20] MEDS: COLLAGENASE OINT 30 GM TUBE 1 APPLIC TOPICAL (11:26)
[2020-02-20 11:48] LABS: Glucose Point of Care 151 (65-105)
--- NOTE | 2020-02-20 12:19 | PCOTNOTE ---
Upon arrival patient was receiving a blood transfusion, therapy session withheld this date.
[2020-02-20 13:52] LABS: SARS-CoV-2 RNA PCR Negative
--- NOTE | 2020-02-20 14:28 | PM.IMPN ---
Progress Note: A&P Assessment and Plan (1) Chronic anemia: Code(s): D64.9 - Anemia, unspecified Status: Acute Assessment and Plan: Appears her hemoglobin in January was 9.7, today was 7.8. Most likely chronic from CKD on dialysis also slightly lower from acute blood loss from amputation yesterday. Acute on Chronic anemia 02/20/2020: H&H this morning were 6.9/23.1% .She was given 1 Unit of pRBC and pending H&H repeat. Nephrology also gave EPO with dialysis yesterday to help with anemia. Will continue monitoring H&H. No acute signs of bleeding at this time. Transfuse as needed. (2) Amputation below knee: Code(s): S88.119A - Complete traumatic amputation at level between knee and ankle, unspecified lower leg, initial encounter Status: Acute Assessment and Plan: Status post right below-knee amputation on 02/19/[address] Murphy. Pain management, Discharge planning, Post-op care, DVT Prophylaxis per Dr. Murphy Continue Wound Care management. (3) Arterial vascular disease: Code(s): I70.90 - Unspecified atherosclerosis Status: Acute Assessment and Plan: Severe, chronic arterial vascular disease. She was on long-term IV antibiotics for chronic wound to right foot without any improvement even with revascularization. Decided to do a right BKA. 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 Both wounds are stable and being monitored by wound care at this time. Continue the patient's Eliquis and Plavix. (4) End-stage renal disease on hemodialysis: Code(s): N18.6 - End stage renal disease; Z99.2 - Dependence on renal dialysis Status: Acute Assessment and Plan: Nephrology was consulted she had dialysis yesterday. Creatinine appears to be stable at 1.8, BUN 13, and GFR 28. Continue monitoring renal function and electrolytes during hospitalization. 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 She had been restarted on her home Lantus 24 units and 8 units of insulin with meals and became hypoglycemic today. I decreased her Lantus at night to be 15 units and stopped her mealtime insulin and is implemented the sliding scale insulin. We may even hold her Lantus tonight if she continues to be hypoglycemia or low normal. Continue monitoring glucose ACHS. Initiate sliding scale insulin and hypoglycemic protocol. (6) Hypertension: Code(s): I10 - Essential (primary) hypertension Status: Acute Assessment and Plan: Blood pressures were reviewed and they are slightly elevated 140-160's at times. Continue antihypertensives and monitor closely. Time Spent With Patient Time with patient: 25 - 35 minutes Subjective Date/time seen: 02/20/20 14:28 Interval history: Date of service 02/20/2020: Patient is very drowsy today, daughter states she received morphine and Valium this morning. Patient denies any pain at this time. She is arousable to touch and saying her name. Her glucose was low and she denies increased thirst, lightheadedness, dizziness or any other symptoms. She denies chest pain, shortness of breath, fever, chills, cough, nausea, vomiting, diarrhea, constipation, urinary symptoms, or any other symptoms at this time. Review of Systems Review of Systems: All systems reviewed & are unremarkable except as noted in HPI and below Exam Narrative: Exam Narrative: General:
[2020-02-20 15:14] LABS: Hematocrit 25.9 % (37.0-47.0)
--- NOTE | 2020-02-20 15:46 | PM.PNNEP ---
Progress Note: A&P Assessment and Plan (1) End-stage renal disease on hemodialysis: Code(s): N18.6 - End stage renal disease; Z99.2 - Dependence on renal dialysis Status: Acute Assessment and Plan: the patient has end-stage renal disease. She had dialysis yesterday. She is due on Saturday. (2) Insulin dependent type 2 diabetes mellitus: Code(s): E11.9 - Type 2 diabetes mellitus without complications; Z79.4 - long term acute care registered nurse (current) use of insulin Status: Acute Assessment and Plan: The patient is on Accu-Cheks and sliding-scale insulin (3) Hypertension: Code(s): I10 - Essential (primary) hypertension Status: Acute Assessment and Plan: her blood pressure is Doing pretty well today. (4) Erythropoietin deficiency anemia: Code(s): D63.1 - Anemia in chronic kidney disease Status: Acute Assessment and Plan: Hemoglobin is Dropped. She received transfusion. Will check stool guaiacs. it would be hard to believe that she lost this much blood in her colon because blood usually acts as a cathartic and she has not had a bowel movement since Saturday. Will check LDH to make sure she is not hemolyzing. She is not bleeding from her wound but possibly could have lost some blood in surgery. Discussed with Cyndi her daughter. (5) Renal osteodystrophy: Code(s): N25.0 - Renal osteodystrophy Status: Acute Assessment and Plan: Phosphorus is well controlled Subjective Date/time seen: 02/20/20 15:46 Interval history: Patient is alert. Just had her dressing change. She did just receive some pain pills though and so she is looking forward to feeling better. She has not had a bowel movement since Saturday. No chest pain or shortness of breath Review of Systems Cardiovascular: Cardiovascular: Reports no additional cardiovascular complaints Respiratory: Respiratory: Reports no additional respiratory complaints Gastrointestinal: Gastrointestinal: Reports no additional gastrointestinal complaints Genitourinary: Genitourinary: Reports no additional female genitourinary complaints Exam Narrative: Exam Narrative: WDWN in NAD skin no rash head ncat lungs clear cor reg no rub abd BS+ nontender and soft ext no edema. bilateral above the knee amputations. Objective Data Vital Signs Vital Signs: Vital Signs - 24 hr 02/19/20 16:00 02/19/20 16:15 02/19/20 16:30 Temperature Pulse Rate 77 75 76 Respiratory Rate Blood Pressure 112/54 L 137/57 L 126/56 L Pulse Oximetry 02/19/20 16:45 02/19/20 17:00 02/19/20 17:15 Temperature Pulse Rate 75 78 79 Respiratory Rate Blood Pressure 131/59 L 125/49 L 112/49 L Pulse Oximetry 02/19/20 17:28 02/19/20 17:35 02/19/20 20:10 Temperature 36.6 C 36.3 C L Pulse Rate 79 81 82 Respiratory Rate 18 16 Blood Pressure 133/64 141/56 H 154/52 H Pulse Oximetry 93 02/19/20 20:22 02/20/20 06:00 02/20/20 08:00 Temperature 36.3 C L Pulse Rate 82 73 68 Respiratory Rate 16 18 Blood Pressure 165/72 H Pulse Oximetry 98 96 02/20/20 08:08 02/20/20 09:34 02/20/20 10:10 Temperature 37.1 C Pulse Rate 72 68 Respiratory Rate 18 Blood Pressure 147/49 H Pulse Oximetry 94 96 02/20/20 10:35 02/20/20 14:00 02/20/20 14:06 Temperature 37.1 C 37.4 C 37.4 C Pulse Rate 72 77 76 Respiratory Rate 18 20 20 Blood Pressure 153/49 H 147/47 H 147/47 H Pulse Oximetry 96 95 95 Intake/Output Intake/Output: Intake & Output 02/17/20 02/18/20 02/19/20 02/20/20 23:59 23:59 23:59 23:59 Intake Total 1220 560 780 Output Total 400 1650 300 Balance 820 -1090 480 Meds/Results Medications: Active Medications Generic Name Dose Route Start Last Admin Trade Name Freq PRN Reason Stop Dose Admin Acetaminophen 1,000 mg 02/18/20 10:52 Tylenol Tablet PO Q6H PRN mild pain Amlodipine Besylate 2.5 mg 02/19/20 09:00
[2020-02-20 16:35] LABS: Glucose Point of Care 215 (65-105)
[2020-02-20] MEDS: INSULIN ASPART (*BKC) 100 UNITS/ML SUB-Q (16:40)
[2020-02-20] MEDS: hydrALAZINE HCL 20 MG/ML VIAL 10 MG IV PUSH (20:11)
[2020-02-20] MEDS: INSULIN GLARGINE (*BKC) 100 UNITS/ML 15 UNITS SUB-Q (21:18)
[2020-02-20 21:24] LABS: Glucose Point of Care 236 (65-105)
[2020-02-20] MEDS: PRAVASTATIN SODIUM 20 MG TABLET 40 MG PO (21:29)
[2020-02-21] VITALS (7 sets, daily range): BP systolic 123–156; BP diastolic 44–78; PULSE 67–82; RESP 14–16; TEMP 36.2–37.6; O2SAT 94–95
[2020-02-21] MEDS: diazePAM (*CRX) 5 MG TABLET PO (05:22)
[2020-02-21] MEDS: GABAPENTIN 300 MG CAPSULE PO ×3 (05:22→21:07)
[2020-02-21] MEDS: oxyCODONE HCL (*CRX) 5 MG TAB IR PO ×2 (05:22→10:00)
[2020-02-21 06:08] LABS: Hematocrit 28.5 % (37.0-47.0); Hemoglobin 8.7 g/dL (12.0-15.0); Mean Corpuscular HGB Conc 30.5 g/dl (32-36); Mean Corpuscular Hemoglobin 28.2 pg (26-34); Mean Corpuscular Volume 92.2 fl (80-100); Mean Platelet Volume 10.9 fl (7.4-10.4); Platelet Count Result 235 k/mm3 (150-375); Red Blood Count 3.09 M/mm3 (4.2-5.4); Red Cell Distribution Width 14.2 % (11.5-14.5); White Blood Count 8.7 K/mm3 (4.5-10.0)
[2020-02-21 06:55] LABS: Albumin Level 2.6 g/dL (3.5-5.1); Anion Gap 3 mmol/L (8-16); Blood Urea Nitrogen 28 mg/dL (7-17); Calcium 7.9 mg/dL (8.4-10.2); Carbon Dioxide 32 mmol/L (22-30); Chloride 97 mmol/L (98-107); Estimated CRCL calculation 19 ml/min; Estimated Glomerular Filt Rate 18; Glucose 205 mg/dL (65-105); Lactate Dehydrogenase 433 U/L (313-618); Phosphorus 3.5 mg/dL (2.5-4.5); Potassium 4.5 mmol/L (3.4-5.0); Sodium 132 mmol/L (137-145)
[2020-02-21] MEDS: MAGNESIUM HYDROXIDE SUSP 30 ML UDC PO (07:21)
[2020-02-21] MEDS: ACETAMINOPHEN 500 MG TABLET 1000 MG PO (07:28)
[2020-02-21 07:38] LABS: Glucose Point of Care 189 (65-105)
[2020-02-21] MEDS: FERROUS SULFATE 324 MG TABLET PO ×2 (08:57→16:49)
[2020-02-21] MEDS: LOSARTAN POTASSIUM 50 MG TABLET PO (08:58)
[2020-02-21] MEDS: CLOPIDOGREL BISULFATE 75 MG TABLET PO (08:58)
[2020-02-21] MEDS: amLODIPine BESYLATE 2.5 MG TABLET PO (08:58)
[2020-02-21] MEDS: APIXABAN 5 MG TABLET PO ×2 (08:59→16:49)
[2020-02-21] MEDS: carvediloL 25 MG TABLET PO ×2 (08:59→21:08)
[2020-02-21] MEDS: FAMOTIDINE 20 MG TABLET PO ×2 (09:03→21:07)
[2020-02-21] MEDS: SERTRALINE HCL 25 MG TABLET PO (09:04)
[2020-02-21] MEDS: DOCUSATE SODIUM 100 MG CAPSULE PO ×2 (09:04→21:07)
[2020-02-21] MEDS: COLLAGENASE OINT 30 GM TUBE 1 APPLIC TOPICAL (09:45)
[2020-02-21] MEDS: polyethylene glycoL 3350 17 GM POWD.PACK PO (09:46)
--- NOTE | 2020-02-21 10:12 | PM.PNNEP ---
Progress Note: A&P Assessment and Plan (1) End-stage renal disease on hemodialysis: Code(s): N18.6 - End stage renal disease; Z99.2 - Dependence on renal dialysis Status: Acute Assessment and Plan: the patient has end-stage renal disease. She had dialysis yesterday. She is due tomorrow orders have been written (2) Insulin dependent type 2 diabetes mellitus: Code(s): E11.9 - Type 2 diabetes mellitus without complications; Z79.4 - manager terminal (current) use of insulin Status: Acute Assessment and Plan: The patient is on Accu-Cheks and sliding-scale insulin (3) Hypertension: Code(s): I10 - Essential (primary) hypertension Status: Acute Assessment and Plan: her blood pressure is under good control (4) Erythropoietin deficiency anemia: Code(s): D63.1 - Anemia in chronic kidney disease Status: Acute Assessment and Plan: Hemoglobin is up a little bit to 8.7.. She received transfusion Yesterday which drove it up to 8.0.. stool guaiacs Are unavailable cause of no bowel movement.. I ordered p.r.n. lactulose (5) Renal osteodystrophy: Code(s): N25.0 - Renal osteodystrophy Status: Acute Assessment and Plan: Phosphorus is well controlled Subjective Date/time seen: 02/21/20 10:12 Interval history: Patient is alert. Sitting up in a chair. Physical therapy was just working with her and she did well with a sliding board with the assistive 2. Yesterday she was a max assist. She has still not had a bowel movement since Saturday. No chest pain or shortness of breath Review of Systems Cardiovascular: Cardiovascular: Reports no additional cardiovascular complaints Respiratory: Respiratory: Reports no additional respiratory complaints Gastrointestinal: Gastrointestinal: Reports no additional gastrointestinal complaints Genitourinary: Genitourinary: Reports no additional female genitourinary complaints Exam Narrative: Exam Narrative: Well developed well-nourished female sitting up in a chair in no acute distress Lungs are clear Heart regular rate and rhythm no rub or gallop Abdomen bowel sounds positive soft nontender Extremities show no cyanosis clubbing or edema, bilateral [id number] amputations, wound on stump on the right. Skin no rash Objective Data Vital Signs Vital Signs: Vital Signs - 24 hr 02/20/20 10:35 02/20/20 11:35 02/20/20 13:35 Temperature 37.1 C 37.2 C 37.1 C Pulse Rate 72 67 74 Respiratory Rate 18 18 20 Blood Pressure 153/49 H 131/47 L 158/55 H Pulse Oximetry 96 96 97 02/20/20 14:00 02/20/20 14:06 02/20/20 19:54 Temperature 37.4 C 37.4 C 36.6 C Pulse Rate 77 76 72 Respiratory Rate 20 20 18 Blood Pressure 147/47 H 147/47 H 186/58 H Pulse Oximetry 95 95 98 02/20/20 21:18 02/20/20 21:19 02/21/20 05:23 Temperature 36.7 C Pulse Rate 78 78 82 Respiratory Rate 16 Blood Pressure 162/54 H 147/78 H Pulse Oximetry 95 02/21/20 08:00 02/21/20 08:59 Temperature Pulse Rate 82 82 Respiratory Rate 16 Blood Pressure Pulse Oximetry 95 Intake/Output Intake/Output: Intake & Output 02/18/20 02/19/20 02/20/20 02/21/20 23:59 23:59 23:59 23:59 Intake Total 4363 165 9867 460 Output Total 400 1650 500 200 Balance 820 -1090 840 260 Meds/Results Medications: Active Medications Generic Name Dose Route Start Last Admin Trade Name Freq PRN Reason Stop Dose Admin Acetaminophen 1,000 mg 02/18/20 10:52 02/21/20 07:28 Tylenol Tablet PO 1,000 mg Q6H PRN Administration mild pain Amlodipine Besylate 2.5 mg 02/19/20 09:00 02/21/20 08:58 Norvasc PO 2.5 mg QAM KEMI Administration Apixaban 5 mg 02/18/20 17:00 02/21/20 08:59 Eliquis PO 5 mg BID KEMI Administration Bisacodyl 10 mg 02/21/20 09:13 Dulcolax Suppository RECTAL QAM PRN Constipation Carvedilol 25 mg 02/18/20 21:00 02/21/20 08
--- NOTE | 2020-02-21 11:44 | PM.PNORT ---
Progress Note: A&P Assessment and Plan (1) Amputation below knee: Code(s): S88.119A - Complete traumatic amputation at level between knee and ankle, unspecified lower leg, initial encounter Status: Acute Assessment and Plan: Postoperative day 3. Right BKA Pain slightly better. Daily dressing changes. Transfers to chair with assistance. PT/OT. 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 Plan for dialysis on Saturday. 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 Pain with transfers and pressure on leg Exam Const: General: no acute distress and ill appearing chronically; No in distress or confusion Orientation/consciousness: patient oriented x3 and No confusion HENMT: Head: normal to inspection, normocephalic and atraumatic Eyes: Conjunctivae: conjunctivae normal Sclera: sclerae normal Resp: Effort & Inspection: normal respiratory effort and no audible wheezes Neuro: General: patient oriented x3 and No confusion Extrem: Other: right leg amputation incision clean and dry. No erythema. Tender to palpation amputation stump diffusely. Able to flex and extend knee. Left leg amputation incision well-healed. No erythema or warmth. Psych: Affect: normal affect Objective Data Vital Signs Vital Signs: Vital Signs - 24 hr 02/20/20 13:35 02/20/20 14:00 02/20/20 14:06 Temperature 98.8 F 99.4 F 99.4 F Pulse Rate 74 77 76 Respiratory Rate 20 20 20 Blood Pressure 158/55 H 147/47 H 147/47 H Pulse Oximetry 97 95 95 02/20/20 19:54 02/20/20 21:18 02/20/20 21:19 Temperature 98 F Pulse Rate 72 78 78 Respiratory Rate 18 Blood Pressure 186/58 H 162/54 H Pulse Oximetry 98 02/21/20 05:23 02/21/20 08:00 02/21/20 08:59 Temperature 98.1 F Pulse Rate 82 82 82 Respiratory Rate 16 16 Blood Pressure 147/78 H Pulse Oximetry 95 95 Intake/Output Intake/Output: Intake & Output 02/18/20 02/19/20 02/20/20 02/21/20 23:59 23:59 23:59 23:59 Intake Total 0273 592 3271 460 Output Total 400 1650 500 200 Balance 820 -1090 840 260 Meds/Results Medications: Active Medications Generic Name Dose Route Start Last Admin Trade Name Freq PRN Reason Stop Dose Admin Acetaminophen 1,000 mg 02/18/20 10:52 02/21/20 07:28 Tylenol Tablet PO 1,000 mg Q6H PRN Administration mild pain Amlodipine Besylate 2.5 mg 02/19/20 09:00 02/21/20 08:58 Norvasc PO 2.5 mg QAM [facility] Administration Apixaban 5 mg 02/18/20 17:00 02/21/20 08:59 Eliquis PO 5 mg BID [facility] Administration Carvedilol 25 mg 02/18/20 21:00 02/21/20 08:59 Coreg PO 25 mg Q12HR [facility] Administration Clopidogrel Bisulfate 75 mg 02/19/20 09:00 02/21/20 08:58 Plavix PO 75 mg QAM [facility] Administration Collagenase 1 applic 02/19/20 09:00 02/21/20 09:45 Santyl Oint TOPICAL 1 applic QAM [facility] Administration Dextrose 12.5 gm 02/18/20 22:07 Dextrose 50% Syringe IV PUSH PRN PRN Hypoglycemia Protocol Diazepam 5 mg 02/18/20 10:52 02/21/20 05:22 Valium Po PO 5 mg Q8H PRN Administration Muscle Spasm Docusate Sodium 100 mg 02/18/20 21:00 02/21/20 09:04 Colace Capsule PO 100 mg Q12HR [facility] Administration Epoetin José-epbx 10,000 units 02/19/20 12:35 02/19/20 14:00 Retacrit IV PUSH 10,000 units MoWeFr
--- NOTE | 2020-02-21 12:01 | PM.IMPN ---
Progress Note: A&P Assessment and Plan (1) Chronic anemia: Code(s): D64.9 - Anemia, unspecified Status: Acute Assessment and Plan: Appears her hemoglobin in January was 9.7, 02/21/20 was 6.9, post-op and after dialysis treatment. She was given 1 Unit of pRBC. This morning H&H improved to 8.7/28.5% after transfusion and EPO injection by Nephrology. Will continue monitoring H&H. No acute signs of bleeding at this time. Transfuse as needed. (2) Amputation below knee: Code(s): S88.119A - Complete traumatic amputation at level between knee and ankle, unspecified lower leg, initial encounter Status: Acute Assessment and Plan: Status post right below-knee amputation on 02/19/[address] Murphy. Pain management, Discharge planning, Post-op care, DVT Prophylaxis per Dr. Murphy Continue Wound Care management. (3) Arterial vascular disease: Code(s): I70.90 - Unspecified atherosclerosis Status: Acute Assessment and Plan: Severe, chronic arterial vascular disease. She was on long-term IV antibiotics for chronic wound to right foot without any improvement even with revascularization. Decided to do a right BKA. 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 Both wounds are stable and being monitored by wound care at this time. Continue the patient's Eliquis and Plavix. (4) End-stage renal disease on hemodialysis: Code(s): N18.6 - End stage renal disease; Z99.2 - Dependence on renal dialysis Status: Acute Assessment and Plan: Nephrology was consulted she had dialysis Saturday Creatinine increased to 2.60, BUN 28, GFR 19. She is scheduled for dialysis again tomorrow. Continue monitoring renal function and electrolytes during hospitalization. 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 She had been restarted on her home Lantus 24 units and 8 units of insulin with meals and became hypoglycemic post-op Continue Lantus at night to be 15 units and stopped her mealtime insulin and is implemented the sliding scale insulin. We may even hold her Lantus tonight if she continues to be hypoglycemia or low normal. Continue monitoring glucose ACHS. Initiate sliding scale insulin and hypoglycemic protocol. (6) Hypertension: Code(s): I10 - Essential (primary) hypertension Status: Acute Assessment and Plan: Blood pressures were reviewed and they are slightly elevated 140-160's at times. Continue antihypertensives and monitor closely. Time Spent With Patient Time with patient: 25 - 35 minutes Subjective Date/time seen: 02/21/20 12:01 Interval history: Date of service 02/21/2020: Patient is more awake and alert today. She reports 10/10 pain to her post surgical stump. She had just received PO Oxycodone and states she did have some improvement of pain. The patient has not had a bowel movement since before arrival, dispite Colace, Miralax and Mag Oxide she was given this morning. She denies lightheadedness, dizziness or any other symptoms. She denies chest pain, shortness of breath, fever, chills, cough, nausea, vomiting, diarrhea, urinary symptoms, or any other symptoms at this time. Review of Systems Review of Systems: All systems reviewed & are unremarkable except as noted in HPI and below Exam Narrative: Exam Narrative: General: 69-year-old woman sitting up in the chair wit
[2020-02-21 12:03] LABS: Glucose Point of Care 207 (65-105)
[2020-02-21] MEDS: INSULIN ASPART (*BKC) 100 UNITS/ML SUB-Q (12:48)
[2020-02-21] MEDS: LACTULOSE 20 GM/30 ML UDC PO (14:38)
[2020-02-21 16:40] LABS: Glucose Point of Care 152 (65-105)
[2020-02-21] MEDS: PRAVASTATIN SODIUM 20 MG TABLET 40 MG PO (21:07)
[2020-02-21] MEDS: INSULIN GLARGINE (*BKC) 100 UNITS/ML 15 UNITS SUB-Q (21:08)
[2020-02-22] VITALS (23 sets, daily range): BP systolic 98–174; BP diastolic 38–75; PULSE 67–76; RESP 12–20; TEMP 36.1–37; O2SAT 95–97
[2020-02-22] LABS: Glucose Point of Care 218 (65-105)
[2020-02-22 05:33] LABS: Hematocrit 26.9 % (37.0-47.0); Hemoglobin 8.3 g/dL (12.0-15.0); Mean Corpuscular HGB Conc 30.9 g/dl (32-36); Mean Corpuscular Hemoglobin 28.3 pg (26-34); Mean Corpuscular Volume 91.8 fl (80-100); Mean Platelet Volume 10.7 fl (7.4-10.4); Platelet Count Result 236 k/mm3 (150-375); Red Blood Count 2.93 M/mm3 (4.2-5.4); Red Cell Distribution Width 14.1 % (11.5-14.5); White Blood Count 8.2 K/mm3 (4.5-10.0)
[2020-02-22] MEDS: GABAPENTIN 300 MG CAPSULE PO ×3 (05:40→20:34)
[2020-02-22 05:47] LABS: Albumin Level 2.6 g/dL (3.5-5.1); Anion Gap 3 mmol/L (8-16); Blood Urea Nitrogen 38 mg/dL (7-17); Calcium 7.9 mg/dL (8.4-10.2); Carbon Dioxide 32 mmol/L (22-30); Chloride 97 mmol/L (98-107); Estimated CRCL calculation 16 ml/min; Estimated Glomerular Filt Rate 15; Glucose 180 mg/dL (65-105); Phosphorus 4.3 mg/dL (2.5-4.5); Potassium 4.6 mmol/L (3.4-5.0); Sodium 132 mmol/L (137-145)
--- NOTE | 2020-02-22 07:29 | PM.PNORT ---
Progress Note: A&P Assessment and Plan (1) Amputation below knee: Code(s): S88.119A - Complete traumatic amputation at level between knee and ankle, unspecified lower leg, initial encounter Status: Acute Assessment and Plan: Postoperative day 4. Right BKA Pain right leg. Daily dressing changes. Transfers to chair with assistance. PT/OT. 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 Plan for dialysis today. 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 No new complaints. Still with pain right leg. Exam Const: General: no acute distress and ill appearing chronically; No in distress or confusion Orientation/consciousness: patient oriented x3 and No confusion HENMT: Head: normal to inspection, normocephalic and atraumatic Eyes: Conjunctivae: conjunctivae normal Sclera: sclerae normal Resp: Effort & Inspection: normal respiratory effort and no audible wheezes Neuro: General: patient oriented x3 and No confusion Extrem: Other: right leg amputation incision clean and dry. No erythema. Tender to palpation amputation stump diffusely. Able to flex and extend knee. Left leg amputation incision well-healed. No erythema or warmth. Psych: Affect: normal affect Objective Data Vital Signs Vital Signs: Vital Signs - 24 hr 02/21/20 08:00 02/21/20 08:59 02/21/20 14:00 Temperature 97.1 F L Pulse Rate 82 82 68 Respiratory Rate 16 14 Blood Pressure 123/44 L Pulse Oximetry 95 95 02/21/20 14:54 02/21/20 20:29 02/21/20 21:08 Temperature 99.7 F H Pulse Rate 72 70 67 Respiratory Rate 14 Blood Pressure 153/47 H 156/66 H Pulse Oximetry 94 02/22/20 05:40 Temperature 98.1 F Pulse Rate 69 Respiratory Rate 14 Blood Pressure 134/51 L Pulse Oximetry 97 Intake/Output Intake/Output: Intake & Output 02/19/20 02/20/20 02/21/20 02/22/20 23:59 23:59 23:59 23:59 Intake Total 560 1340 920 300 Output Total 1650 500 200 50 Balance -1090 840 720 250 Meds/Results Medications: Active Medications Generic Name Dose Route Start Last Admin Trade Name Freq PRN Reason Stop Dose Admin Acetaminophen 1,000 mg 02/18/20 10:52 02/21/20 07:28 Tylenol Tablet PO 1,000 mg Q6H PRN Administration mild pain Amlodipine Besylate 2.5 mg 02/19/20 09:00 02/21/20 08:58 Norvasc PO 2.5 mg QAM [facility] Administration Apixaban 5 mg 02/18/20 17:00 02/21/20 16:49 Eliquis PO 5 mg BID [facility] Administration Carvedilol 25 mg 02/18/20 21:00 02/21/20 21:08 Coreg PO 25 mg Q12HR [facility] Administration Clopidogrel Bisulfate 75 mg 02/19/20 09:00 02/21/20 08:58 Plavix PO 75 mg QAM [facility] Administration Collagenase 1 applic 02/19/20 09:00 02/21/20 09:45 Santyl Oint TOPICAL 1 applic QAM [facility] Administration Dextrose 12.5 gm 02/18/20 22:07 Dextrose 50% Syringe IV PUSH PRN PRN Hypoglycemia Protocol Diazepam 5 mg 02/18/20 10:52 02/21/20 05:22 Valium Po PO 5 mg Q8H PRN Administration Muscle Spasm Docusate Sodium 100 mg 02/18/20 21:00 02/21/20 21:07 Colace Capsule PO 100 mg Q12HR [facility] Administration Epoetin José-epbx 20,000 units 02/22/20 18:00 Retacrit IV PUSH [email or web address] [facility] Famotidine 20 mg 02/18/20 21:00 02/21/20 21:07 Pepcid PO 20 mg Q12HR [facility] Ad
[2020-02-22 07:45] LABS: Glucose Point of Care 163 (65-105)
--- NOTE | 2020-02-22 08:03 | PCOTNOTE ---
Per RN, patient going for dialysis soon and requiring dressing changes and ask to wait to see patient until later today. Will re-attempt later today to see for OT.
[2020-02-22] MEDS: COLLAGENASE OINT 30 GM TUBE 1 APPLIC TOPICAL (08:32)
[2020-02-22] MEDS: oxyCODONE HCL (*CRX) 5 MG TAB IR PO ×2 (08:40→13:24)
--- NOTE | 2020-02-22 08:58 | PC.NURSE ---
Pt to dialysis.
[2020-02-22] MEDS: EPOETIN ALFA-EPBX 10,000 UNITS/ML VIAL 20000 UNITS IV PUSH (10:28)
--- NOTE | 2020-02-22 10:56 | P.PNNP_ITS ---
Progress Note: A&P Assessment and Plan (1) End-stage renal disease on hemodialysis: Code(s): N18.6 - End stage renal disease; Z99.2 - Dependence on renal dialysis Status: Acute Assessment and Plan: * HD today and continue M/W/F schedule * follow electrolytes, volume status, and clearance (2) Amputation below knee: Code(s): S88.119A - Complete traumatic amputation at level between knee and ankle, unspecified lower leg, initial encounter Status: Acute Assessment and Plan: * s/p right BKA * due to chronic non-healing wounds in-spite of revascularization * Orthopedics following * local wound care * pain control (3) Hypertension: Code(s): I10 - Essential (primary) hypertension Status: Acute Assessment and Plan: * BP well controlled * follow trend of hemodynamics (4) Erythropoietin deficiency anemia: Code(s): D63.1 - Anemia in chronic kidney disease Status: Acute Assessment and Plan: * suspect due to ESRD, acute illness, and operative intervetion * Epogen with HD * follow trend of H/H (5) Renal osteodystrophy: Code(s): N25.0 - Renal osteodystrophy Status: Acute Assessment and Plan: * calcium and phosphorus controlled * follow parameters Will continue to follow. Subjective Date/time seen: 02/22/20 10:56 Tolerating dialysis at the time of my visit (seen on HD at ~ 10:45AM); no apparent distress voiced; no events/problems overnight or earlier this AM; pain control satisfactory. Exam Narrative: Exam Narrative: General: WD/WN female in NAD Heart: normal S1 and S2; no rub Lungs: clear to auscultation Abdomen: soft, nontender, nondistended, positive bowel sounds Extremities: no cyanosis or clubbing; no edema; bilateral [id number] amputations; wound on stump on the right. Skin: warm and dry Objective Data Vital Signs Vital Signs: Vital Signs Temp Pulse Resp BP Pulse Ox 02/22/20 09:30 69 99/50 L 02/22/20 09:15 70 98/45 L 02/22/20 09:02 68 174/75 H 02/22/20 08:55 36.7 C 70 18 160/69 H 02/22/20 05:40 36.7 C 69 14 134/51 L 97 02/21/20 21:08 67 02/21/20 20:29 37.6 C H 70 14 156/66 H 94 02/21/20 14:54 72 153/47 H 02/21/20 14:00 36.2 C L 68 14 123/44 L 95 Intake/Output Intake/Output: Intake & Output 02/19/20 02/20/20 02/21/20 02/22/20 23:59 23:59 23:59 23:59 Intake Total 560 1340 920 540 Output Total 1650 500 200 50 Balance -1090 840 720 490 Meds/Results Medications: Active Medications Generic Name Dose Route Start Last Admin Trade Name Freq PRN Reason Stop Dose Admin Acetaminophen 1,000 mg 02/18/20 10:52 02/21/20 07:28 Tylenol Tablet PO 1,000 mg Q6H PRN Administration mild pain Amlodipine Besylate 2.5 mg 02/19/20 09:00 02/21/20 08:58 Norvasc PO 2.5 mg QAM [facility] Administration Apixaban 5 mg 02/18/20 17:00 02/21/20 16:49 Eliquis PO 5 mg BID [facility] Administration Carvedilol 25 mg 02/18/20 21:00 02/21/20 21:08 Coreg PO 25 mg Q12HR [facility] Administration Clopidogrel Bisulfate 75 mg 02/19/20 09:00 02/21/20 08:58 Plavix PO 75 mg
--- NOTE | 2020-02-22 10:56 | PM.PNNEP ---
Progress Note: A&P Assessment and Plan (1) End-stage renal disease on hemodialysis: Code(s): N18.6 - End stage renal disease; Z99.2 - Dependence on renal dialysis Status: Acute Assessment and Plan: HD today and continue M/W/F schedule follow electrolytes, volume status, and clearance (2) Amputation below knee: Code(s): S88.119A - Complete traumatic amputation at level between knee and ankle, unspecified lower leg, initial encounter Status: Acute Assessment and Plan: s/p right BKA due to chronic non-healing wounds in-spite of revascularization Orthopedics following local wound care pain control (3) Hypertension: Code(s): I10 - Essential (primary) hypertension Status: Acute Assessment and Plan: BP well controlled follow trend of hemodynamics (4) Erythropoietin deficiency anemia: Code(s): D63.1 - Anemia in chronic kidney disease Status: Acute Assessment and Plan: suspect due to ESRD, acute illness, and operative intervetion Epogen with HD follow trend of H/H (5) Renal osteodystrophy: Code(s): N25.0 - Renal osteodystrophy Status: Acute Assessment and Plan: calcium and phosphorus controlled follow parameters Will continue to follow. Subjective Date/time seen: 02/22/20 10:56 Tolerating dialysis at the time of my visit (seen on HD at ~ 10:45AM); no apparent distress voiced; no events/problems overnight or earlier this AM; pain control satisfactory. Exam Narrative: Exam Narrative: General: WD/WN female in NAD Heart: normal S1 and S2; no rub Lungs: clear to auscultation Abdomen: soft, nontender, nondistended, positive bowel sounds Extremities: no cyanosis or clubbing; no edema; bilateral [id number] amputations; wound on stump on the right. Skin: warm and dry Objective Data Vital Signs Vital Signs: Vital Signs Temp Pulse Resp BP Pulse Ox 02/22/20 09:30 69 99/50 L 02/22/20 09:15 70 98/45 L 02/22/20 09:02 68 174/75 H 02/22/20 08:55 36.7 C 70 18 160/69 H 02/22/20 05:40 36.7 C 69 14 134/51 L 97 02/21/20 21:08 67 02/21/20 20:29 37.6 C H 70 14 156/66 H 94 02/21/20 14:54 72 153/47 H 02/21/20 14:00 36.2 C L 68 14 123/44 L 95 Intake/Output Intake/Output: Intake & Output 02/19/20 02/20/20 02/21/20 02/22/20 23:59 23:59 23:59 23:59 Intake Total 560 1340 920 540 Output Total 1650 500 200 50 Balance -1090 840 720 490 Meds/Results Medications: Active Medications Generic Name Dose Route Start Last Admin Trade Name Freq PRN Reason Stop Dose Admin Acetaminophen 1,000 mg 02/18/20 10:52 02/21/20 07:28 Tylenol Tablet PO 1,000 mg Q6H PRN Administration mild pain Amlodipine Besylate 2.5 mg 02/19/20 09:00 02/21/20 08:58 Norvasc PO 2.5 mg QAM [facility] Administration Apixaban 5 mg 02/18/20 17:00 02/21/20 16:49 Eliquis PO 5 mg BID [facility] Administration Carvedilol 25 mg 02/18/20 21:00 02/21/20 21:08 Coreg PO 25 mg Q12HR [facility] Administration Clopidogrel Bisulfate 75 mg 02/19/20 09:00 02/21/20 08:58 Plavix PO 75 mg QAM [facility] Administration Collagenase 1 applic 02/19/20 09:00 02/22/20 08:32 Santyl Oint TOPICAL 1 applic QAM [facility] Administration Dextrose 12.5 gm 02/18/20 22:07 Dextrose 50% Syringe IV PUSH PRN PRN Hypoglycemia Protocol Diazepam 5 mg 02/18/20 10:52 02/21/20 05:22 Valium Po PO 5 mg Q8H PRN Administration Muscle Spasm Docusate Sodium 100 mg 02/18/20 21:00 02/21/20 21:07 Colace Capsule PO 100 mg Q12HR [facility] Administration Epoetin José-epbx 20,000 units 02/22/20 18:00 02/22/20 10:28 Retacrit IV PUSH 20,000 units [email or web address] [facility] Administration Famotidine 20 mg 02/18/20 21:00 02/21/20 21:07 Pepcid PO 20 mg Q12HR [facility] Administration Ferrous Sulfate 324 mg 02/18/20 17:00 02/21/20 16:49 Ferrous S
--- NOTE | 2020-02-22 11:16 | PM.IMPN ---
Progress Note: A&P Assessment and Plan (1) Chronic anemia: Code(s): D64.9 - Anemia, unspecified Status: Acute Assessment and Plan: Appears her hemoglobin in January was 9.7, 02/21/20 was 6.9, post-op and after dialysis treatment. She was given 1 Unit of pRBC. This morning H&H improved after transfusion on 02/20/2020 and EPO injection by Nephrology. H&H remains stable today at 8.3/26.9%. She is in dialysis now and receive EPO tonight. Will continue monitoring H&H. No acute signs of bleeding at this time. Transfuse as needed. (2) Amputation below knee: Code(s): S88.119A - Complete traumatic amputation at level between knee and ankle, unspecified lower leg, initial encounter Status: Acute Assessment and Plan: Status post right below-knee amputation on 02/19/[address] Murphy. Pain management, Discharge planning, Post-op care, DVT Prophylaxis per Dr. Murphy Continue Wound Care management. (3) Arterial vascular disease: Code(s): I70.90 - Unspecified atherosclerosis Status: Acute Assessment and Plan: Severe, chronic arterial vascular disease. She was on long-term IV antibiotics for chronic wound to right foot without any improvement even with revascularization. Decided to do a right BKA. 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 Both wounds are stable and being monitored by wound care at this time. Continue the patient's Eliquis and Plavix. (4) End-stage renal disease on hemodialysis: Code(s): N18.6 - End stage renal disease; Z99.2 - Dependence on renal dialysis Status: Acute Assessment and Plan: Nephrology was consulted Creatinine increased to 3.10. She is in dialysis now. Continue monitoring renal function and electrolytes during hospitalization. 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 She had been restarted on her home Lantus 24 units and 8 units of insulin with meals and became hypoglycemic post-op Continue Lantus at night to be 15 units and stopped her mealtime insulin and is implemented the sliding scale insulin. Continue monitoring glucose ACHS. Initiate sliding scale insulin and hypoglycemic protocol. (6) Hypertension: Code(s): I10 - Essential (primary) hypertension Status: Acute Assessment and Plan: Blood pressures were reviewed and they are slightly elevated 140-160's at times. Continue antihypertensives and monitor closely. Time Spent With Patient Time with patient: 25 - 35 minutes Subjective Date/time seen: 02/22/20 11:16 Interval history: Date of service 02/22/2020: Patient is in dialysis. She is awake and alert. She reports pain to her surgical right stump, stating it is 10/10, but its much better after she received PO Oxycodone an hour ago. She states her pain gets out of control when she misses a pain medication dose. She has still not had a bowel movement despite lactulose, miralax and Colace. She feels like she needs to have a bowel movement. She denies lightheadedness, dizziness or any other symptoms. She denies chest pain, shortness of breath, fever, chills, cough, nausea, vomiting, diarrhea, urinary symptoms, or any other symptoms at this time. Review of Systems Review of Systems: All systems reviewed & are unremarkable except as noted in HPI and below Exam Narrative: Exam Narrative: General: 69-year-old woman lay
--- NOTE | 2020-02-22 12:13 | PCNFU ---
Nutrition Follow-Up Complete: Inadequate Oral Intake as related to pain as evidenced by Left BKA. Goal:Meet estimated nutritional needs Progressing towards goal. We will continue current goal. Pt current nutrition is Renal Dialysis. Nutrition recommendation:Agree Last recorded weight is 88 kg, no new weight since admit. Bowel Motility:NO BM reported. Labs Reviewed:Cr 3.10,BUN 38, GFR 15, Glu 163, Hct 26.9,Hgb 8.3 Meds Noted:Colace,Miralax,Lactulose, Novolog, Lantus Additional Notes: Patient having dialysis today. Oral Intake has been fair. Breakfast today-cereal. Patient has orders for Kumar BID for wound healing due to BKA. Diet orders remains appropriate at this time. Monitoring: Will monitor every 5 days.
[2020-02-22 13:07] LABS: IFOB Positive Control Positive; Immunochemical Fecal Occult Bl Positive (N)
[2020-02-22 13:15] LABS: Glucose Point of Care 111 (65-105)
--- NOTE | 2020-02-22 13:20 | PC.NURSE ---
pt returned from dialysis.
[2020-02-22] MEDS: polyethylene glycoL 3350 17 GM POWD.PACK PO (13:23)
[2020-02-22] MEDS: CLOPIDOGREL BISULFATE 75 MG TABLET PO (13:23)
[2020-02-22] MEDS: APIXABAN 5 MG TABLET PO ×2 (13:23→18:14)
[2020-02-22] MEDS: LOSARTAN POTASSIUM 50 MG TABLET PO (13:23)
[2020-02-22] MEDS: FERROUS SULFATE 324 MG TABLET PO ×2 (13:23→18:14)
[2020-02-22] MEDS: SERTRALINE HCL 25 MG TABLET PO (13:23)
[2020-02-22] MEDS: amLODIPine BESYLATE 2.5 MG TABLET PO (13:23)
[2020-02-22] MEDS: carvediloL 25 MG TABLET PO ×2 (13:24→20:33)
[2020-02-22] MEDS: DOCUSATE SODIUM 100 MG CAPSULE PO ×2 (13:27→20:33)
[2020-02-22] MEDS: FAMOTIDINE 20 MG TABLET PO ×2 (13:27→20:33)
[2020-02-22 16:36] LABS: Glucose Point of Care 167 (65-105)
[2020-02-22] MEDS: ACETAMINOPHEN 500 MG TABLET 1000 MG PO (18:16)
[2020-02-22] MEDS: INSULIN GLARGINE (*BKC) 100 UNITS/ML 15 UNITS SUB-Q (20:33)
[2020-02-22] MEDS: PRAVASTATIN SODIUM 20 MG TABLET 40 MG PO (20:33)
[2020-02-22] MEDS: diazePAM (*CRX) 5 MG TABLET PO (20:35)
[2020-02-22 21:11] LABS: Glucose Point of Care 199 (65-105)
[2020-02-22 23:00] LABS: Hepatitis B Core Ab Total Nonreactive (Nonreactive)
[2020-02-23] VITALS (9 sets, daily range): BP systolic 109–206; BP diastolic 42–58; PULSE 67–72; RESP 12–16; TEMP 36.2–36.8; O2SAT 94–96
[2020-02-23] MEDS: GABAPENTIN 300 MG CAPSULE PO ×3 (05:32→20:56)
[2020-02-23 06:09] LABS: Hematocrit 27.8 % (37.0-47.0); Hemoglobin 8.4 g/dL (12.0-15.0)
[2020-02-23 06:16] LABS: Albumin Level 2.5 g/dL (3.5-5.1); Anion Gap 2 mmol/L (8-16); Blood Urea Nitrogen 24 mg/dL (7-17); Calcium 7.8 mg/dL (8.4-10.2); Carbon Dioxide 35 mmol/L (22-30); Chloride 96 mmol/L (98-107); Estimated CRCL calculation 21 ml/min; Estimated Glomerular Filt Rate 21; Glucose 147 mg/dL (65-105); Phosphorus 3.1 mg/dL (2.5-4.5); Potassium 3.9 mmol/L (3.4-5.0); Sodium 133 mmol/L (137-145)
[2020-02-23 07:49] LABS: Glucose Point of Care 135 (65-105)
[2020-02-23] MEDS: oxyCODONE HCL (*CRX) 5 MG TAB IR PO (08:30)
[2020-02-23] MEDS: polyethylene glycoL 3350 17 GM POWD.PACK PO (08:32)
[2020-02-23] MEDS: APIXABAN 5 MG TABLET PO ×2 (08:33→18:25)
[2020-02-23] MEDS: FERROUS SULFATE 324 MG TABLET PO ×2 (08:33→18:25)
[2020-02-23] MEDS: SERTRALINE HCL 25 MG TABLET PO (08:33)
[2020-02-23] MEDS: DOCUSATE SODIUM 100 MG CAPSULE PO ×2 (08:33→20:11)
[2020-02-23] MEDS: CLOPIDOGREL BISULFATE 75 MG TABLET PO (08:33)
[2020-02-23] MEDS: amLODIPine BESYLATE 2.5 MG TABLET PO (08:48)
[2020-02-23] MEDS: LOSARTAN POTASSIUM 50 MG TABLET PO (08:48)
[2020-02-23] MEDS: carvediloL 25 MG TABLET PO ×2 (08:48→20:56)
--- NOTE | 2020-02-23 10:07 | PM.PNORT ---
Progress Note: A&P Assessment and Plan (1) Amputation below knee: Code(s): S88.119A - Complete traumatic amputation at level between knee and ankle, unspecified lower leg, initial encounter Status: Acute Assessment and Plan: POD #5: Right BKA Continued c/o pain right leg. Daily dressing changes. Transfers to chair with assistance. PT/OT. GI consulted due to stool occult blood positive Plan for dressing change/incision evaluation this afternoon. Continue stump protector. Appreciate hospitalist/commercial finance analyst recommendations. (2) End-stage renal disease on hemodialysis: Code(s): N18.6 - End stage renal disease; Z99.2 - Dependence on renal dialysis Status: Acute Assessment and Plan: HD per nephrology (3) Insulin dependent type 2 diabetes mellitus: Code(s): E11.9 - Type 2 diabetes mellitus without complications; Z79.4 - termite control representative (current) use of insulin Status: Acute Assessment and Plan: close diabetic control needed for optimal healing. (4) Erythropoietin deficiency anemia: Code(s): D63.1 - Anemia in chronic kidney disease Status: Acute Assessment and Plan: Transfusion over weekend. Stool occult +. GI consulted by Medicine team. (5) Anemia associated with acute blood loss: Code(s): D62 - Acute posthemorrhagic anemia Status: Acute Subjective Subjective Date/Time Seen: 02/23/20 0900 Patient awake. Sitting in chair at bedside working with PT/OT. Review of Systems Review of Systems: All systems reviewed & are unremarkable except as noted in HPI and below Exam Const: General: no acute distress and ill appearing chronically; No in distress or confusion Orientation/consciousness: patient oriented x3 and No confusion HENMT: Head: normal to inspection, normocephalic and atraumatic Eyes: Conjunctivae: conjunctivae normal Sclera: sclerae normal Resp: Effort & Inspection: normal respiratory effort and no audible wheezes Neuro: General: patient oriented x3 and No confusion Extrem: Other: Right leg with stump protector in place. Unable to assess incision at time of exam due to working with PT. Thigh soft, nontender. Able to flex and extend knee. Left leg amputation incision well-healed. No erythema or warmth. Psych: Affect: normal affect Objective Data Vital Signs Vital Signs: Vital Signs - 24 hr 02/22/20 10:15 02/22/20 10:30 02/22/20 10:45 Temperature Pulse Rate 71 69 69 Respiratory Rate Blood Pressure 119/59 L 131/59 L 130/56 L Pulse Oximetry 02/22/20 11:00 02/22/20 11:15 02/22/20 11:30 Temperature Pulse Rate 67 67 71 Respiratory Rate Blood Pressure 115/53 L 110/50 L 107/38 L Pulse Oximetry 02/22/20 11:45 02/22/20 12:00 02/22/20 12:15 Temperature Pulse Rate 72 68 69 Respiratory Rate Blood Pressure 112/52 L 104/51 L 107/52 L Pulse Oximetry 02/22/20 12:30 02/22/20 12:36 02/22/20 13:09 Temperature 36.7 C Pulse Rate 68 75 70 Respiratory Rate 20 Blood Pressure 106/50 L 119/52 L 160/69 H Pulse Oximetry 02/22/20 13:24 02/22/20 15:17 02/22/20 19:29 Temperature 36.3 C L 36.1 C L Pulse Rate 73 76 70 Respiratory Rate 18 12 Blood Pressure 120/40 L 149/39 H Pulse Oximetry 95 95 02/22/20 20:33 02/23/20 05:33 02/23/20 08:35 Temperature 36.2 C L Pulse Rate 70 67 72 Respiratory Rate 12 Blood Pressure 155/53 H 164/50 H Pulse Oximetry 94 02/23/20 08:45 02/23/20 08:48 Temperature Pulse Rate 72 Respiratory Rate Blood Pressure 109/58 L Pulse Oximetry Intake/Output Intake/Output: Intake & Output 02/20/20 02/21/20 02/22/20 02/23/20 23:59 23:59 23:59 23:59 Intake Total 1340 920 900 640 Output Total 944 941 8328 Balance 840 720 -1300 640 Meds/Results Medications: Active Medications Generic Name Dose Route Start Last Admin Trade Name Freq PRN Reason Stop Dose Admin Acetaminophen 1,000 mg 02/18/20 10:52
--- NOTE | 2020-02-23 10:55 | PM.PNNEP ---
Progress Note: A&P Assessment and Plan (1) End-stage renal disease on hemodialysis: Code(s): N18.6 - End stage renal disease; Z99.2 - Dependence on renal dialysis Status: Acute Assessment and Plan: HD tomorrow and continue M/W/F schedule follow electrolytes, volume status, and clearance (2) Amputation below knee: Code(s): S88.119A - Complete traumatic amputation at level between knee and ankle, unspecified lower leg, initial encounter Status: Acute Assessment and Plan: s/p right BKA due to chronic non-healing wounds in-spite of revascularization Orthopedics following local wound care pain control (3) Hypertension: Code(s): I10 - Essential (primary) hypertension Status: Acute Assessment and Plan: BP well controlled follow trend of hemodynamics (4) Erythropoietin deficiency anemia: Code(s): D63.1 - Anemia in chronic kidney disease Status: Acute Assessment and Plan: suspect due to ESRD, acute illness, and operative intervetion Epogen with HD follow trend of H/H (5) Renal osteodystrophy: Code(s): N25.0 - Renal osteodystrophy Status: Acute Assessment and Plan: calcium and phosphorus controlled follow parameters Will continue to follow. Subjective Date/time seen: 02/23/20 10:55 Tolerated dialysis yesterday without any issues or problems; noted to be guaiac positive so GI consulted; pain control stable with current medication regimen although some concerns regarding lethargy noted (thought to be secondary to pain medications). Exam Narrative: Exam Narrative: General: WD/WN female in NAD Heart: normal S1 and S2; no rub Lungs: clear to auscultation Abdomen: soft, nontender, nondistended, positive bowel sounds Extremities: no cyanosis or clubbing; no edema; bilateral [id number] amputations; wound on stump on the right. Skin: warm and intact Objective Data Vital Signs Vital Signs: Vital Signs Temp Pulse Resp BP Pulse Ox 02/23/20 08:48 72 02/23/20 08:45 109/58 L 02/23/20 08:35 72 164/50 H 02/23/20 05:33 36.2 C L 67 12 155/53 H 94 02/22/20 20:33 70 02/22/20 19:29 36.1 C L 70 12 149/39 H 95 02/22/20 15:17 36.3 C L 76 18 120/40 L 95 02/22/20 13:24 73 02/22/20 13:09 36.7 C 70 20 160/69 H 02/22/20 12:36 75 119/52 L 02/22/20 12:30 68 106/50 L 02/22/20 12:15 69 107/52 L 02/22/20 12:00 68 104/51 L 02/22/20 11:45 72 112/52 L 02/22/20 11:30 71 107/38 L 02/22/20 11:15 67 110/50 L 02/22/20 11:00 67 115/53 L Intake/Output Intake/Output: Intake & Output 02/20/20 02/21/20 02/22/20 02/23/20 23:59 23:59 23:59 23:59 Intake Total 1340 920 900 640 Output Total 465 704 4030 Balance 840 720 -1300 640 Meds/Results Medications: Active Medications Generic Name Dose Route Start Last Admin Trade Name Freq PRN Reason Stop Dose Admin Acetaminophen 1,000 mg 02/18/20 10:52 02/22/20 18:16 Tylenol Tablet PO 1,000 mg Q6H PRN Administration mild pain Amlodipine Besylate 2.5 mg 02/19/20 09:00 02/23/20 08:48 Norvasc PO 2.5 mg QAM [facility] Administration Apixaban 5 mg 02/18/20 17:00 02/23/20 08:33 Eliquis PO 5 mg BID [facility] Administration Carvedilol 25 mg 02/18/20 21:00 02/23/20 08:48 Coreg PO 25 mg Q12HR [facility] Administration Clopidogrel Bisulfate 75 mg 02/19/20 09:00 02/23/20 08:33 Plavix PO 75 mg QAM [facility] Administration Collagenase 1 applic 02/19/20 09:00 02/22/20 08:32 Santyl Oint TOPICAL 1 applic QAM [facility] Administration Dextrose 12.5 gm 02/18/20 22:07 Dextrose 50% Syringe IV PUSH PRN PRN Hypoglycemia Protocol Diazepam 5 mg 02/18/20 10:52 02/22/20 20:35 Valium Po PO 5 mg Q8H PRN Administration Muscle Spasm Docusate Sodium 100 mg 02/18/20 21:00 02/23/20 08:33 Colace Capsule PO 100 mg
[2020-02-23 11:44] LABS: Glucose Point of Care 147 (65-105)
[2020-02-23] MEDS: FAMOTIDINE 20 MG TABLET PO ×2 (12:17→20:11)
[2020-02-23] MEDS: COLLAGENASE OINT 30 GM TUBE 1 APPLIC TOPICAL (12:18)
--- NOTE | 2020-02-23 13:17 | PM.IMPN ---
Progress Note: A&P Assessment and Plan (1) Chronic anemia: Code(s): D64.9 - Anemia, unspecified Status: Acute Assessment and Plan: Baseline hemoglobin in January was 9.7. Hemoglobin 02/21/20 was 6.9 and she received 1 unit pRBC. Anemia is likely secondary to ESRD and post-op blood loss. She received epogen per nephrology. Stool guaiac was positive. I have consulted GI given this finding and significant anemia requiring blood transfusion. Recommendations are greatly appreciated. Hemoglobin and hematocrit are stable today. Continue to monitor closely and transfuse PRN to maintain Hb >7. (2) Stool guaiac positive: Code(s): R19.5 - Other fecal abnormalities Status: Acute Assessment and Plan: The pt denies melena or hematochezia but guaiac testing was positive. GI was consulted and recommendations are appreciated. Her daughter states that her colonoscopy was many years ago. She was supposed to do Cologuard testing but this was not accomplished. (3) Amputation below knee: Code(s): S88.119A - Complete traumatic amputation at level between knee and ankle, unspecified lower leg, initial encounter Status: Acute Assessment and Plan: Pt is s/p right below-knee amputation on 02/19/[address] Murphy. Pain management, discharge disposition, post-op care, and DVT Prophylaxis per Dr. Murphy. Continue Wound Care management. (4) Arterial vascular disease: Code(s): I70.90 - Unspecified atherosclerosis Status: Acute Assessment and Plan: Pt is s/p bilateral BKA. Continue eliquis and plavix. (5) End-stage renal disease on hemodialysis: Code(s): N18.6 - End stage renal disease; Z99.2 - Dependence on renal dialysis Status: Acute Assessment and Plan: Nephrology is on board. Continue hemodialysis on her regular M// schedule. Management per nephrology. (6) Insulin dependent type 2 diabetes mellitus: Code(s): E11.9 - Type 2 diabetes mellitus without complications; Z79.4 - shelter (current) use of insulin Status: Acute Assessment and Plan: Hemoglobin A1c was 6.8%. Blood sugars were low post-op so mealtime insulin was discontinued and basal insulin was decreased to lantus 15 units qHS. Continue ACHS glucose monitoring, sliding scale insulin, and hypoglycemia protocol. (7) Hypertension: Code(s): I10 - Essential (primary) hypertension Status: Acute Assessment and Plan: Blood pressures were reviewed with intermittent elevation and low readings (likely due to narcotics). Continue amlodipine, carvedilol, and losartan. Continue to monitor. Subjective Date/time seen: 02/23/20 13:17 Mrs. Prado is a chronically-ill 69 y.o. female with multiple medical problems to include ESRD on HD, PAD s/p bilateral BKA, CAD, IDDM who is seen in follow-up s/p right BKA by Dr. Murphy. Guaiac stool was positive so GI has been consulted. The patient reports RLE pain with movement. She reports that her appetite is good. She denies abdominal pain, nausea, and vomiting. She denies chest pain and dyspnea. She denies subjective fever and chills. She reports a large bowel movement yesterday. Guaiac stool testing was positive and GI was consulted. The patient is somnolent secondary to pain medication and her regimen will be hairspring adjuster per orthopedic surgery. She has no other complaints. She denies hematochezia and melena. Review of Systems Review of Systems: All systems reviewed & are unremarkable except as noted in HPI and below Exam Narrative: Exam Narrative: General: Chronically ill-appearing, well-nourished 69 y.o. female lying supine in bed in no acute distress. HEENT: Normocephalic and atraumatic. Conjunctivae without injection or exudate. PERRL. EOMI. Oral mucosa moist. Neck: Supple without lymphadenopathy or masses. Cardiac: Regular rate and rhythm. S1 and S2 normal. Chest: Tunneled hemodialysis catheter to th
--- NOTE | 2020-02-23 16:12 | WPDGICN ---
Assessment and Plan Assessment and plan (1) Stool guaiac positive: Code(s): R19.5 - Other fecal abnormalities Status: Acute Assessment and Plan: occult blood in stools but no report of GIB I think anemia most likely combination from ESRD and post-op (had Rt BKA) she will need a colonoscopy but I will offer as outpatient, I do not think that right now is best timing as she is recovering from recent major surgery and also will have hard time to complete bowel prep, of course if she has overt gib then we can do it while she is here in the hospital (2) Anemia associated with acute blood loss: Code(s): D62 - Acute posthemorrhagic anemia Status: Acute Assessment and Plan: hb stable after her surgery now, monitor (3) Amputation below knee: Code(s): S88.119A - Complete traumatic amputation at level between knee and ankle, unspecified lower leg, initial encounter Status: Acute (4) Insulin dependent type 2 diabetes mellitus: Code(s): E11.9 - Type 2 diabetes mellitus without complications; Z79.4 - [facility] (current) use of insulin Status: Acute (5) Arterial vascular disease: Code(s): I70.90 - Unspecified atherosclerosis Status: Acute (6) End-stage renal disease on hemodialysis: Code(s): N18.6 - End stage renal disease; Z99.2 - Dependence on renal dialysis Status: Acute GI Consult Note Consult date/time: 02/23/20 16:12 Reason for consult: occult blood in stools HPI: Tawana Prado is a 69 year old female with multiple medical problems including peripheral vascular disease, insulin-dependent diabetes, end-stage renal disease on hemodialysis for almost 2 years, hypertension, chronic anemia (Hb 8-9) who was admitted because osteomyelitis of the right foot that failed medical intervention therefore had Right BKA byt orthopedics on 02/17. Hb post-op 6.9 but after transfusion has been around mid 8's. No report of blood in stools or GIB. Had a colonoscopy but years ago. Review of Systems Constitutional: Constitutional: Reports fatigue and Denies headache(s) Eyes: Eyes: Denies blurry vision ENT: Reports Normal hearing present, Denies headache(s) and Denies neck pain Cardiovascular: Cardiovascular: Denies chest pain and Denies dyspnea Respiratory: Respiratory: Denies dyspnea Gastrointestinal: Gastrointestinal: Reports no additional gastrointestinal complaints Musculoskeletal: Comments: s/p Rt BKA Integumentary/Breasts: Skin/Breast: Denies dry skin Neurologic: Reports Normal hearing present, Denies headache(s) and Denies weakness Psychiatric: Psychiatric: Denies anxiety Endocrine: Endocrine: Denies change in body appearance Hematologic/Lymphatic: Hematologic/Lymphatic: Denies easy bleeding Allergic/Immunologic: Allergic/Immunologic: Denies urticaria PMF Past Medical History Medical History (Updated 02/23/20 @ 14:10 by Jocelynn Garrett PA-C) Amputation below knee Anemia associated with acute blood loss Arterial vascular disease Below knee amputation Chronic anemia Diabetes mellitus Digital arterial occlusive disease End-stage renal disease on hemodialysis Erythropoietin deficiency anemia Foot osteomyelitis, right History of amputation of finger Hyperlipidemia Hypertension 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 Osteomyelitis Renal osteodystrophy Surgical History Surgical History Amputation of right forefoot :Right 4th and 5th ray amputation in 04/2017. :Right foot transmetatarsal amputation with partial fasciotomy due to wet gangrene, osteomyelitis, and necrotizing fasciitis in May 2017. 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 History of below-knee amputation of both lower extremities Left [id number] amputation in 2017.
[2020-02-23 16:16] LABS: Glucose Point of Care 144 (65-105)
[2020-02-23] MEDS: hydrALAZINE HCL 20 MG/ML VIAL 10 MG IV PUSH (20:10)
[2020-02-23] MEDS: PRAVASTATIN SODIUM 20 MG TABLET 40 MG PO (20:11)
[2020-02-23] MEDS: INSULIN GLARGINE (*BKC) 100 UNITS/ML 15 UNITS SUB-Q (20:18)
[2020-02-23 21:03] LABS: Glucose Point of Care 157 (65-105)
[2020-02-24] VITALS (22 sets, daily range): BP systolic 95–189; BP diastolic 38–85; PULSE 67–81; RESP 16–18; TEMP 36.2–37.3; O2SAT 97–99
[2020-02-24 05:06] LABS: Hematocrit 27.9 % (37.0-47.0); Hemoglobin 8.4 g/dL (12.0-15.0)
[2020-02-24 05:21] LABS: Albumin Level 2.5 g/dL (3.5-5.1); Anion Gap 3 mmol/L (8-16); Blood Urea Nitrogen 30 mg/dL (7-17); Calcium 7.7 mg/dL (8.4-10.2); Carbon Dioxide 34 mmol/L (22-30); Chloride 98 mmol/L (98-107); Estimated CRCL calculation 20 ml/min; Estimated Glomerular Filt Rate 19; Glucose 158 mg/dL (65-105); Phosphorus 3.2 mg/dL (2.5-4.5); Sodium 135 mmol/L (137-145)
[2020-02-24] MEDS: GABAPENTIN 300 MG CAPSULE PO ×2 (05:47→14:49)
[2020-02-24 07:36] LABS: Glucose Point of Care 130 (65-105)
[2020-02-24] MEDS: FERROUS SULFATE 324 MG TABLET PO ×2 (08:09→16:53)
[2020-02-24] MEDS: DOCUSATE SODIUM 100 MG CAPSULE PO (08:09)
[2020-02-24] MEDS: carvediloL 25 MG TABLET PO (08:09)
[2020-02-24] MEDS: LOSARTAN POTASSIUM 50 MG TABLET PO (08:09)
[2020-02-24] MEDS: CLOPIDOGREL BISULFATE 75 MG TABLET PO (08:09)
[2020-02-24] MEDS: APIXABAN 5 MG TABLET PO ×2 (08:09→16:53)
[2020-02-24] MEDS: SERTRALINE HCL 25 MG TABLET PO (08:10)
[2020-02-24] MEDS: amLODIPine BESYLATE 2.5 MG TABLET PO (08:10)
[2020-02-24] MEDS: polyethylene glycoL 3350 17 GM POWD.PACK PO (08:10)
[2020-02-24] MEDS: COLLAGENASE OINT 30 GM TUBE 1 APPLIC TOPICAL (08:10)
[2020-02-24] MEDS: FAMOTIDINE 20 MG TABLET PO (08:12)
--- NOTE | 2020-02-24 09:00 | PC.NURSE ---
Patient to dialysis per bed. Report to ALVARO Griffin.
--- NOTE | 2020-02-24 09:59 | PM.PNNEP ---
Progress Note: A&P Assessment and Plan (1) End-stage renal disease on hemodialysis: Code(s): N18.6 - End stage renal disease; Z99.2 - Dependence on renal dialysis Status: Acute Assessment and Plan: HD today and continue M/W/F schedule follow electrolytes, volume status, and clearance (2) Amputation below knee: Code(s): S88.119A - Complete traumatic amputation at level between knee and ankle, unspecified lower leg, initial encounter Status: Acute Assessment and Plan: s/p right BKA due to chronic non-healing wounds in-spite of revascularization Orthopedics following local wound care pain control (3) Hypertension: Qualifiers: Hypertension type: renovascular hypertension Qualified Code(s): I15.0 - Renovascular hypertension Code(s): I10 - Essential (primary) hypertension Status: Acute Assessment and Plan: BP well controlled follow trend of hemodynamics (4) Erythropoietin deficiency anemia: Code(s): D63.1 - Anemia in chronic kidney disease Status: Acute Assessment and Plan: suspect due to ESRD, acute illness, and operative intervetion Epogen with HD follow trend of H/H (5) Renal osteodystrophy: Code(s): N25.0 - Renal osteodystrophy Status: Acute Assessment and Plan: calcium and phosphorus controlled follow parameters Will continue to follow. Subjective Date/time seen: 02/24/20 09:59 Tolerating dialysis at the time of my visit (seen on HD at ~ 9:50AM); pain control appears reasonable; no apparent distress voiced; mentation appears stable. Exam Narrative: Exam Narrative: General: WD/WN female in NAD Heart: normal S1 and S2; no rub Lungs: clear to auscultation Abdomen: soft, nontender, nondistended, positive bowel sounds Extremities: no cyanosis or clubbing; no edema; bilateral [id number] amputations; wound on stump on the right Skin: no rash or nodules Objective Data Vital Signs Vital Signs: Vital Signs Temp Pulse Resp BP Pulse Ox 02/24/20 09:45 76 131/64 02/24/20 09:30 81 174/79 H 02/24/20 09:23 70 189/85 H 02/24/20 09:00 37.3 C 70 16 173/77 H 02/24/20 08:09 73 02/24/20 05:49 36.7 C 73 16 150/48 H 97 02/23/20 20:56 72 02/23/20 19:59 36.7 C 72 16 206/58 H 96 02/23/20 19:45 95 02/23/20 14:00 36.8 C 71 14 143/42 H 94 Intake/Output Intake/Output: Intake & Output 02/21/20 02/22/20 02/23/20 02/24/20 23:59 23:59 23:59 23:59 Intake Total 938 787 2214 100 Output Total 200 2200 Balance 720 -1300 1130 100 Meds/Results Medications: Active Medications Generic Name Dose Route Start Last Admin Trade Name Freq PRN Reason Stop Dose Admin Acetaminophen 325 mg 02/23/20 13:40 Tylenol Tablet PO Q6H PRN Mild Pain (1-3) or Fever Amlodipine Besylate 2.5 mg 02/19/20 09:00 02/24/20 08:10 Norvasc PO 2.5 mg QAM [facility] Administration Apixaban 5 mg 02/18/20 17:00 02/24/20 08:09 Eliquis PO 5 mg BID [facility] Administration Carvedilol 25 mg 02/18/20 21:00 02/24/20 08:09 Coreg PO 25 mg Q12HR [facility] Administration Clopidogrel Bisulfate 75 mg 02/19/20 09:00 02/24/20 08:09 Plavix PO 75 mg QAM [facility] Administration Collagenase 1 applic 02/19/20 09:00 02/24/20 08:10 Santyl Oint TOPICAL 1 applic QAM [facility] Administration Dextrose 12.5 gm 02/18/20 22:07 Dextrose 50% Syringe IV PUSH PRN PRN Hypoglycemia Protocol Docusate Sodium 100 mg 02/18/20 21:00 02/24/20 08:09 Colace Capsule PO 100 mg Q12HR [facility] Administration Epoetin [id number]-epbx 20,000 units 02/22/20 18:00 02/22/20 10:28 Retacrit IV PUSH 20,000 units [id number] [facility] Administration Famotidine 20 mg 02/18/20 21:00 02/24/20 08:12 Pepcid PO 20 mg Q12HR [facility] Administration Ferrous Sulfate 324 mg 02/18/20 17:00 02/24/20 08:09 Ferrous Sulfate PO 324 mg
--- NOTE | 2020-02-24 10:08 | PM.IMPN ---
Progress Note: A&P Assessment and Plan (1) Chronic anemia: Code(s): D64.9 - Anemia, unspecified Status: Acute Assessment and Plan: Baseline hemoglobin in January was 9.7. Hemoglobin 02/21/20 was 6.9 and she received 1 unit pRBC. Anemia is likely secondary to ESRD and post-op blood loss. She received epogen per nephrology. Stool guaiac was positive and GI has recommended outpatient colonoscopy after recovery from surgery. Recommendations are greatly appreciated. Hemoglobin and hematocrit remain stable. Continue to monitor closely and transfuse PRN to maintain Hb >7. (2) Stool guaiac positive: Code(s): R19.5 - Other fecal abnormalities Status: Acute Assessment and Plan: The pt denies melena or hematochezia but guaiac testing was positive. GI was consulted and has recommended colonoscopy outpatient once she recovers from surgery. She has no evidence of overt bleeding. Hemoglobin and hematocrit are stable. Continue to monitor. (3) Amputation below knee: Code(s): S88.119A - Complete traumatic amputation at level between knee and ankle, unspecified lower leg, initial encounter Status: Acute Assessment and Plan: Pt is s/p right below-knee amputation on 02/19/[address] Murphy. Pain management, discharge disposition, post-op care, and DVT Prophylaxis per Dr. Murphy. Continue Wound Care management. (4) Arterial vascular disease: Code(s): I70.90 - Unspecified atherosclerosis Status: Acute Assessment and Plan: Pt is s/p bilateral BKA. Continue eliquis and plavix. (5) End-stage renal disease on hemodialysis: Code(s): N18.6 - End stage renal disease; Z99.2 - Dependence on renal dialysis Status: Acute Assessment and Plan: Nephrology is on board. Continue hemodialysis on her regular M/W/F schedule. Management per nephrology. 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 Blood sugars were low post-op so mealtime insulin was discontinued and basal insulin was decreased to lantus 15 units qHS. Continue ACHS glucose monitoring, sliding scale insulin, and hypoglycemia protocol. (7) Hypertension: Code(s): I10 - Essential (primary) hypertension Status: Acute Assessment and Plan: Blood pressures were reviewed and elevated overnight but improved today. Continue amlodipine, carvedilol, and losartan. Continue to monitor. Subjective Date/time seen: 02/24/20 10:08 Mrs. Prado is a chronically-ill 69 y.o. female with multiple medical problems to include ESRD on HD, PAD s/p bilateral BKA, CAD, IDDM who is seen in follow-up s/p right BKA by Dr. Murphy. Guaiac stool was positive and GI was consulted and has recommended outpatient colonoscopy once she recovers from surgery. Hemoglobin and hematocrit are stable. Mrs. Prado is seen in dialysis. She is much more awake and alert today. She reports RLE pain including mild phantom limb pain but feels that it is well-controlled on her current pain regimen. She denies chest pain, dyspnea, and cough. She denies nausea, vomiting, and abdominal pain. Her bowels are regular and she had a bowel movement yesterday. She has no urinary complaints. Review of Systems Review of Systems: All systems reviewed & are unremarkable except as noted in HPI and below Exam Narrative: Exam Narrative: General: Chronically ill-appearing, well-nourished 69 y.o. female lying supine receiving dialysis. She is in no acute distress. HEENT: Normocephalic and atraumatic. EOMI. Oral mucosa moist. Neck: Supple without lymphadenopathy or masses. Cardiac: Regular rate and rhythm. S1 and S2 normal. Chest: Tunneled hemodialysis catheter to the right chest. Lungs: Lungs are clear to auscultation bilaterally. Ab
--- NOTE | 2020-02-24 10:57 | PCOTNOTE ---
Attempted to see patient this am, however patient was off floor for dialysis at this time.
--- NOTE | 2020-02-24 11:29 | WPDGIPROGNO ---
Progress Note: A&P Assessment and Plan (1) Chronic anemia: Code(s): D64.9 - Anemia, unspecified Status: Acute Assessment and Plan: hb is stable, no report of overt gib no plan for colonoscopy now but she can see me in office after she is recovered from recent surgery anemia probably combination from esrd, post-op after amputation, etc call us if questions (2) Stool guaiac positive: Code(s): R19.5 - Other fecal abnormalities Status: Acute Assessment and Plan: denies overt gib (3) Renal osteodystrophy: Code(s): N25.0 - Renal osteodystrophy Status: Acute (4) Arterial vascular disease: Code(s): I70.90 - Unspecified atherosclerosis Status: Acute (5) End-stage renal disease on hemodialysis: Code(s): N18.6 - End stage renal disease; Z99.2 - Dependence on renal dialysis Status: Acute Assessment and Plan: by nephrology (6) Foot osteomyelitis, right: Qualifiers: Osteomyelitis type: other chronic Qualified Code(s): M86.671 - Other chronic osteomyelitis, right ankle and foot Code(s): M86.9 - Osteomyelitis, unspecified Status: Acute Assessment and Plan: recent amputation Subjective Date/time seen: 02/24/20 11:29 Interval history: she is comfortable on dialysis, denies any GIB Review of Systems Review of Systems: All systems reviewed & are unremarkable except as noted in HPI and below Exam Const: General: no acute distress and ill appearing; No in distress or confusion Orientation/consciousness: patient oriented x3 and No confusion HENMT: Head: normal to inspection, normocephalic and atraumatic General nose exam: Normal nares present Eyes: Conjunctivae: conjunctivae normal Sclera: sclerae normal Neck: Neck: supple Resp: Effort & Inspection: normal respiratory effort and no audible wheezes Cardio: Rhythm: regular rhythm GI: GI Palp: Yes Soft to palpation, No Firmness to palpation present (GI) and No Tenderness to palpation present (GI) Auscultation: normal bowel sounds Skin: General skin exam: no erythema Neuro: General: patient oriented x3 and No confusion Speech: normal speech Extrem: Other: Right leg with stump protector in place. Left leg amputation incision well-healed. Psych: Affect: normal affect Objective Data Vital Signs Vital Signs: Vital Signs - 24 hr 09/22/20 14:00 02/23/20 19:45 02/23/20 19:59 Temperature 98.2 F 98.1 F Pulse Rate 71 72 Respiratory Rate 14 16 Blood Pressure 143/42 H 206/58 H Pulse Oximetry 94 95 96 02/23/20 20:56 02/24/20 05:49 02/24/20 08:09 Temperature 98.1 F Pulse Rate 72 73 73 Respiratory Rate 16 Blood Pressure 150/48 H Pulse Oximetry 97 02/24/20 09:00 02/24/20 09:23 02/24/20 09:30 Temperature 99.1 F Pulse Rate 70 70 81 Respiratory Rate 16 Blood Pressure 173/77 H 189/85 H 174/79 H Pulse Oximetry 02/24/20 09:45 02/24/20 10:00 02/24/20 10:15 Temperature Pulse Rate 76 74 70 Respiratory Rate Blood Pressure 131/64 133/64 110/53 L Pulse Oximetry 02/24/20 10:30 02/24/20 10:45 02/24/20 11:00 Temperature Pulse Rate 77 72 75 Respiratory Rate Blood Pressure 96/42 L 130/61 144/65 H Pulse Oximetry 02/24/20 11:15 Temperature Pulse Rate 71 Respiratory Rate Blood Pressure 143/60 H Pulse Oximetry Intake/Output Intake/Output: Intake & Output 02/21/20 02/22/20 02/23/20 02/24/20 23:59 23:59 23:59 23:59 Intake Total 948 640 8755 280 Output Total 200 2200 Balance 720 -1300 1130 280 Meds/Results Medications: Active Medications Generic Name Dose Route Start Last Admin Trade Name Freq PRN Reason Stop Dose Admin Acetaminophen 325 mg 02/23/20 13:40 Tylenol Tablet PO Q6H PRN Mild Pain (1-3) or Fever Amlodipine Besylate 2.5 mg 02/19/20 09:00 02/24/20 08:10 Norvasc PO 2.5 mg QAM KEMI Administration Apixaban 5 mg 02/18/20 17:00 02/24/20 08:09
[2020-02-24] MEDS: EPOETIN ALFA-EPBX 10,000 UNITS/ML VIAL 20000 UNITS IV PUSH (11:36)
[2020-02-24] MEDS: ACETAMINOPHEN 325 MG TABLET PO (12:51)
[2020-02-24 12:56] LABS: Glucose Point of Care 129 (65-105)
[2020-02-24] MEDS: HEPARIN SODIUM 1,000 UNITS/ML VIAL 1000 UNITS IV PUSH (13:25)
--- NOTE | 2020-02-24 13:39 | PC.NURSE ---
Patient returned from dialysis per bed. Report received per ALVARO Griffin.
--- NOTE | 2020-02-24 13:45 | PCPTNOTE ---
attempted PT x 2-pt out of room for dialysis
[2020-02-24 16:29] LABS: Glucose Point of Care 257 (65-105)
--- NOTE | 2020-02-24 16:40 | PM.DS ---
DS: Admitting Diagnosis Admitting Diagnosis Admitting Diagnosis: Right Foot Osteomyelitis, DS: Discharge Diagnosis Discharge Diagnosis (1) Status post below knee amputation of right lower extremity: Code(s): Z89.511 - Acquired absence of right leg below knee Status: Acute Assessment and Plan: 1 week status post right BKA. Continue with daily dressing changes. Stump protector when up. PT/OT with nonweightbearing. Wheelchair for ambulation. Assist with transfers. Suture and staple removal March 08, 2020. Follow up in orthopedic office in 3 to 4 weeks. (2) Insulin dependent type 2 diabetes mellitus: Code(s): E11.9 - Type 2 diabetes mellitus without complications; Z79.4 - correction (current) use of insulin Status: Acute (3) End-stage renal disease on hemodialysis: Code(s): N18.6 - End stage renal disease; Z99.2 - Dependence on renal dialysis Status: Acute Assessment and Plan: continue hemodialysis on Saturday schedule (4) History of amputation below knee: Qualifiers: Laterality: left Qualified Code(s): Z89.512 - Acquired absence of left leg below knee Code(s): Z89.519 - Acquired absence of unspecified leg below knee Status: Acute (5) Foot osteomyelitis, right: Qualifiers: Osteomyelitis type: other chronic Qualified Code(s): M86.671 - Other chronic osteomyelitis, right ankle and foot Code(s): M86.9 - Osteomyelitis, unspecified Status: Acute Assessment and Plan: Resolved with below-knee amputation (6) Arterial vascular disease: Code(s): I70.90 - Unspecified atherosclerosis Status: Acute (7) Hypertension: Qualifiers: Hypertension type: renovascular hypertension Qualified Code(s): I15.0 - Renovascular hypertension Code(s): I10 - Essential (primary) hypertension Status: Acute (8) Anemia associated with acute blood loss: Code(s): D62 - Acute posthemorrhagic anemia Status: Acute Assessment and Plan: Patient received 1 unit packed red blood cells. Responded well to transfusion. H&H have been stable. Continue with routine labs for dialysis. (9) Renal osteodystrophy: Code(s): N25.0 - Renal osteodystrophy Status: Acute (10) Erythropoietin deficiency anemia: Code(s): D63.1 - Anemia in chronic kidney disease Status: Acute (11) Chronic anemia: Code(s): D64.9 - Anemia, unspecified Status: Acute (12) Stool guaiac positive: Code(s): R19.5 - Other fecal abnormalities Status: Acute Assessment and Plan: H&H stable at this time. Continue to monitor labs. Follow-up with gastroenterology as outpatient. Agree with colo guard stool testing DS: Summary Time Spent with Patient Time attestation: Total time spent providing and/or coordinating discharge services: patient admitted on February 17 and taken to operating room for right below-knee amputation for chronic unresolved osteomyelitis of the right foot and chronic unhealing diabetic foot ulcer. Patient with severe peripheral arterial disease and inability to heal lower extremity reconstruction. Patient admitted after surgery. Initially had difficulty with pain control and muscle spasms. The immediate cast was removed in the incision leg were checked and noted to be stable. Daily dressing changes were instituted. PT/OT was consulted. Wound Care was consulted for continued care of the left hand chronic wound. Postoperative course complicated by pain control which eventually was better with oral medication. Hospitalist consultation for assistance with medical management. Patient continued with dialysis. Nephrology consult for her dialysis orders. Found to have 1 episode of acute anemia which was thought to be result of surgical acute blood loss. Responded well to blood transfusion. Also noted to have guaiac-positive stool test. Gastroent
[2020-02-24] MEDS: INSULIN ASPART (*BKC) 100 UNITS/ML SUB-Q (16:48)
== END 2020-02-24 18:55 | DRG 617 ==
LOC: ANHSURGERY 10:15 → ANH3MED 10:15
PROVIDERS: Anesthesiology; Internal Medicine; Internal Medicine Nephrology; Physician Assistant; Admitting Provider Orthopaedic Surgery; PCP Internal Medicine; Visit Provider Orthopaedic Surgery
PROC: (CPT 27882; principal; 2020-02-18 07:30)
DX: E11.69 Type 2 diabetes mellitus with other specified complication (principal); M86.671 Other chronic osteomyelitis, right ankle and foot; I12.0 Hypertensive chronic kidney disease with stage 5 chronic kidney disease or end stage renal disease; D62 Acute posthemorrhagic anemia; D63.1 Anemia in chronic kidney disease; Z20.828 Contact with and (suspected) exposure to other viral communicable diseases; N18.6 End stage renal disease; E11.22 Type 2 diabetes mellitus with diabetic chronic kidney disease; E11.40 Type 2 diabetes mellitus with diabetic neuropathy, unspecified; E11.51 Type 2 diabetes mellitus with diabetic peripheral angiopathy without gangrene; E11.621 Type 2 diabetes mellitus with foot ulcer; L97.519 Non-pressure chronic ulcer of other part of right foot with unspecified severity; Z99.2 Dependence on renal dialysis; R19.5 Other fecal abnormalities; E78.00 Pure hypercholesterolemia, unspecified; N25.0 Renal osteodystrophy; Z23 Encounter for immunization; Z79.01 Long term (current) use of anticoagulants; Z79.4 Long term (current) use of insulin; Z89.512 Acquired absence of left leg below knee
CPT/HCPCS: 36415; 36430; 80048; 80069; 82274; 83036; 83615; 85014; 85018; 85025; 85027; 85610; 85730; 86704; 86706; 86850; 86900; 86901; 86920; 87040; 87340; 87635; 88307; 88311; 90471; 90686; 97110; 97161; 97166; 97530; 97535; A9270; C9803; G0008; G0257; J0360; J0690; J1170; J1610; J1644; J1815; J1885; J2250; J2270; J2405; J2704; J3010; J7030; J7040; J7050; P9016; Q5106; U0003

== ENCOUNTER 2020-05-09 01:45 | Outpatient (CLI) | payer MEDICARE, OTHER, SELFPAY ==
[2020-05-09 18:52] LABS: SARS-CoV-2 RNA PCR Negative
== END 2020-05-09 01:46 | disposition home or self-care (01) ==
LOC: ANHCOVIDDT 01:46
PROVIDERS: PCP Internal Medicine; Visit Provider Orthopaedic Surgery
DX: Z01.812 Encounter for preprocedural laboratory examination (principal); Z20.828 Contact with and (suspected) exposure to other viral communicable diseases
CPT/HCPCS: 87635; C9803; U0003

== ENCOUNTER 2020-05-10 07:28 | Outpatient (RCR) | payer MEDICARE, OTHER, SELFPAY ==
--- NOTE | 2020-04-22 14:37 | PM.PNORT ---
Progress Note: A&P Assessment and Plan (1) Status post below knee amputation of right lower extremity: Code(s): Z89.511 - Acquired absence of right leg below knee Status: Acute Assessment and Plan: The patient is now 2 months status post right transtibial amputation. She had unfortunate interval wound dehiscence with necrosis secondary to peripheral vascular disease. Per the patient and her family she has a blockage in the right femoral artery. She has not seen her vascular surgeon since the time of surgery but does plan to make an appointment today following her wound clinic evaluation. She was recently seen by her home health and there was concern for worsening of the wound bed. She was instructed to be seen in the Wound Clinic today. She has been undergoing daily dressing changes with silver gel. Recommended transitioning to sandal and silver gel for debridement and infection control. Patient to continue with nonweightbearing of the right hip at this time. Recommended follow up next Saturday for re-evaluation. Patient may need surgical debridement however at this time it is important for her to have her evaluation by her vascular surgeon in order to improve blood flow prior to a 2nd surgical intervention. Patient family at bedside verbalized understanding. Subjective Subjective Date/Time Seen: 04/22/20 14:37 69-year-old female returns today status post right kaafg-pok-blac amputation. She is 2 months status post surgical intervention. She unfortunately now has a wound dehiscence of the right stump with necrosis secondary to peripheral vascular disease. Her dressing changes as performed by her family as well as her home health team. She has been utilizing silver gel to the wound bed Daily. she presents today [facility] wound clinic today for further evaluation. Review of Systems Review of Systems: All systems reviewed & are unremarkable except as noted in HPI and below Exam Const: General: no acute distress and ill appearing chronically; No in distress or confusion Orientation/consciousness: patient oriented x3 and No confusion HENMT: Head: normal to inspection, normocephalic and atraumatic General nose exam: Normal nares present Eyes: Conjunctivae: conjunctivae normal Sclera: sclerae normal Neck: Neck: supple Resp: Effort & Inspection: normal respiratory effort and no audible wheezes Cardio: Rhythm: regular rhythm GI: GI Palp: Yes Soft to palpation and No Tenderness to palpation present (GI) Skin: General skin exam: no erythema Neuro: General: patient oriented x3 and No confusion Speech: normal speech Extrem: Right lower extremity: knee ( BKA, see below ) Left lower extremity: knee ( BKA) Other: Right stump with incision dehiscence and necrosis. The incision measures 3.7 x 8.5 x 2.5 cm with tunneling in the 1 o'clock position to 2.5 cm and at the 3 o'clock position to 2.7 cm. The medial aspect of the wound measures 1 x 1 x 0.8 cm with green and blue drainage. Wound bed is necrotic in nature with sloughing as well. Surrounding tissue without redness, warmth or swelling. No tracking up the more proximal aspect of the leg. Knee benign. Left BKA well healed. Psych: Affect: normal affect Objective Data Meds/Results Medications: Active Medications Generic Name Dose Route Start Last Admin Trade Name Freq PRN Reason Stop Dose Admin Collagenase 1 applic 04/22/20 08:32 Collagenase Oint 30 Gm Tube TOPICAL 07/23/20 23:59 PRN PRN Wound Care Silver Nitrate 1 applic 04/22/20 08:32 Silvergel (Elta) 45 Ml TOPICAL 07/23/20 23:59 PRN PRN Wound Care
--- NOTE | 2020-04-26 12:12 | PM.PNORT ---
Progress Note: A&P Assessment and Plan (1) Status post below knee amputation of right lower extremity: Code(s): Z89.511 - Acquired absence of right leg below knee Status: Acute Assessment and Plan: The patient follows up in the [facility] wound clinic today 2 months status post right transtibial amputation. She was seen last week due to an unfortunate wound dehiscence with necrosis secondary to peripheral vascular disease. Following our appointment on Saturday of last week they contacted their vascular surgeon. The vascular surgeon then contacted our office for further discussion. Per her surgeon, the patient has a FFA in severe vascular compromise of the right lower extremity. He does not feel she is a candidate for opening up the femoral artery as it would occlude days later. He does not believe she has a good chance of healing a pdyis-azj-asiy amputation. He does feel that she would have a good chance of healing and above the knee amputation. We discussed this in depth with the patient and her daughter at the bedside today. Wound with very little improvement status post beginning Santyl from last week. No signs of acute infection. Patient denies fever, chills, night sweats, nausea, vomiting or diarrhea. Discussed further debridement versus dvcuj-yto-xbig amputation. The patient and family would like to continue with conservative treatment at this time while determining definitive treatment plan. Patient aware of likely need for above the knee amputation poor chances of wound healing given severe peripheral vascular disease. Continue Santyl and silver gel to the right stump wound in the interim. We did reviewed signs and symptoms of worsening infection to report to the emergency room immediately. Patient and family member verbalized understanding. The patient will follow up in 1 week for re-evaluation at which time we will determine further surgical intervention. Subjective Subjective Date/Time Seen: 04/26/20 12:12 69-year-old female returns today status post right sxsgq-dpu-cits amputation. She is 2 months status post surgical intervention. She unfortunately now has a wound dehiscence of the right stump with necrosis secondary to peripheral vascular disease. Her dressing changes as performed by her family as well as her home health team. She has been utilizing silver gel/santyl to the wound bed daily. She presents today to [facility] wound clinic today for further evaluation. Review of Systems Review of Systems: All systems reviewed & are unremarkable except as noted in HPI and below Exam Const: General: no acute distress and ill appearing chronically; No in distress or confusion Orientation/consciousness: patient oriented x3 and No confusion HENMT: Head: normal to inspection, normocephalic and atraumatic General nose exam: Normal nares present Eyes: Conjunctivae: conjunctivae normal Sclera: sclerae normal Neck: Neck: supple Resp: Effort & Inspection: normal respiratory effort and no audible wheezes Cardio: Rhythm: regular rhythm GI: GI Palp: Yes Soft to palpation and No Tenderness to palpation present (GI) Skin: General skin exam: no erythema Neuro: General: patient oriented x3 and No confusion Speech: normal speech Extrem: Right lower extremity: knee ( BKA, see below ) Left lower extremity: knee ( BKA) Other: Right stump with incision dehiscence and necrosis. The incision measures 4.0x8.8x2.0 cm with tunneling in the 1 o'clock position to 2.5 cm and at the 3 o'clock position to 2.7 cm. The medial aspect of the wound measures 1 x 1 x 0.8 cm with green and blue drainage. Wound bed is necrotic in nature with sloughing as well. Surrounding tissue without redness, warmth or swelling. No tracking up the more proximal aspect of the leg. Knee benign. Left BKA well healed. Psych: Affect: normal affect Objective Data Meds/Results Medications: Active Medications Generic Name Dose Route St
--- NOTE | 2020-05-03 08:28 | PM.PNORT ---
Progress Note: A&P Assessment and Plan (1) Status post below knee amputation of right lower extremity: Code(s): Z89.511 - Acquired absence of right leg below knee Status: Acute Assessment and Plan: The patient follows up today [place] wound clinic today with continuing worsening pain of her right BKA wound. She was seen 1 week ago for re-evaluation at which point we discussed an vwbmy-mmi-ptti amputation. Previous vascular surgeon was consulted and did not feel that she was a candidate for healing the current vljwe-ktu-cuie amputation wound. Given her severe peripheral vascular disease, he feels that she would be a better candidate for qbpah-gru-jieb amputation. We discussed this again with the patient and family today. Given lack of improvement despite aggressive wound care for the past 1 week, the patient would like to proceed with surgical intervention. We will continue conservative treatment with wound care in the interim. We will plan for surgical intervention in 1 week. Patient will need preoperative workup as well as a negative COVID-19 testing. She will need inpatient hospitalization status post qptbg-pjm-bedg amputation. She will follow up in 1 week. We reviewed signs symptoms of infection to report to the emergency room immediately, patient verbalized understanding agrees with plan of care. Patient's daughter at the bedside also verbalized understanding agrees with plan of care. Continue Santyl delivered all to the right stump wound in the interim .Patient follow up 1 week. Subjective Subjective Date/Time Seen: 05/03/20 08:28 69-year-old female returns today status post right avfcm-ixy-tahk amputation. She is 2 months status post surgical intervention. She unfortunately now has a wound dehiscence of the right stump with necrosis secondary to peripheral vascular disease. Her dressing changes as performed by her family as well as her home health team. She has been utilizing silver gel/santyl to the wound bed daily. She presents today to [place] wound clinic today for further evaluation. Review of Systems Review of Systems: All systems reviewed & are unremarkable except as noted in HPI and below Exam Const: General: no acute distress and ill appearing chronically; No in distress or confusion Orientation/consciousness: patient oriented x3 and No confusion HENMT: Head: normal to inspection, normocephalic and atraumatic General nose exam: Normal nares present Eyes: Conjunctivae: conjunctivae normal Sclera: sclerae normal Neck: Neck: supple Resp: Effort & Inspection: normal respiratory effort and no audible wheezes Cardio: Rhythm: regular rhythm GI: GI Palp: Yes Soft to palpation and No Tenderness to palpation present (GI) Skin: General skin exam: no erythema Neuro: General: patient oriented x3 and No confusion Speech: normal speech Extrem: Right lower extremity: knee ( BKA, see below ) Left lower extremity: knee ( BKA) Other: Right thumb with continued incision dehiscence and worsening necrosis. The incision measures 4.0 x 8.8 x 2.0 cm with ongoing to the bone. Large amount of slough seen in necrotic tissue noted. Green blue drainage noted as well. Surrounding tissue without redness, warmth or swelling. No signs of active worsening infection. No tracking to the more proximal aspect of the leg. The knee remains benign. Left BKA is well healed. No purulence drainage. No malodor. Psych: Affect: normal affect Objective Data Meds/Results Medications: Active Medications Generic Name Dose Route Start Last Admin Trade Name Freq PRN Reason Stop Dose Admin Collagenase 1 applic 04/22/20 08:32 Collagenase Oint 30 Gm Tube TOPICAL 07/23/20 23:59 PRN PRN Wound Care Silver Nitrate 1 applic 04/22/20 08:32 Silvergel (Elta) 45 Ml TOPICAL 07/23/20 23:59 PRN PRN Wound Care
--- NOTE | 2020-05-10 08:42 | PM.CNOR ---
Assessment and Plan Assessment and plan (1) Status post below knee amputation of right lower extremity: Code(s): Z89.511 - Acquired absence of right leg below knee Status: Acute Assessment and Plan: 3 months status post right below-knee amputation complicated by wound dehiscence and now with exposed tibia. Patient with peripheral arterial disease with blockage at the popliteal fossa right leg. Per vascular surgery unable to improve blood flow. Wound dehiscence is nonhealing and now suspected osteomyelitis of the tibia given the exposure to air. Long discussion with the patient and family, her daughter is here with her, regarding treatment options of continued non operative treatment, revision below-knee amputation, above knee amputation. Risks, benefits and alternatives of each were discussed in detail. Their questions were answered. She would like to proceed with xocvw-scy-edek amputation. Discussed nonoperative and operative treatment options with the patient. Risks and benefits of each as well as alternatives were reviewed. All of the patient's questions were answered. The risks of surgery reviewed including but not limited to: Neurovascular damage, wound complication, infection, blood clot, pulmonary embolus, stroke, myocardial infarction, and anesthetic risks up to and including . Continued pain and possible dysfunction were explained. Specific risks of the procedure including later recurrence of deformity. No guarantees were offered. If hardware used, discussed risk of failure/ breakage and possible need for removal. If complications occur, the patient understands the need for further treatment, possible further surgery. Patient verbalizes understanding and wishes to proceed. PLAN: Right above knee amputation (2) Wound dehiscence, surgical: Qualifiers: Encounter type: subsequent encounter Qualified Code(s): T81.31XD - Disruption of external operation (surgical) wound, not elsewhere classified, subsequent encounter Code(s): T81.31XA - Disruption of external operation (surgical) wound, not elsewhere classified, initial encounter Status: Acute (3) Osteomyelitis of right tibia: Qualifiers: Osteomyelitis type: other Qualified Code(s): M86.8X6 - Other osteomyelitis, lower leg Code(s): M86.9 - Osteomyelitis, unspecified Status: Acute (4) Arterial vascular disease: Code(s): I70.90 - Unspecified atherosclerosis Status: Acute History of Present Illness HPI Consult date: 05/10/20 Requesting physician: Maximiliano,MD [facility] Consult reason: other ( right below-knee amputation wound dehiscence and infection) Chief complaint: Z89.511 Acquired absence of right leg below knee Narrative: 69-year-old woman 3 months now status post right below-knee amputation with wound dehiscence and infection. Patient returns [facility] wound clinic for re-evaluation. She reports pain at the distal end of the amputation stump. She also has pain posterior to the knee difficulty with range of motion and extending the knee. She also has phantom pain. She has been unable to be up more than just to transfer to a chair. She has continued dressing changes with the assistance of home health for the right leg. Review of Systems Constitutional: Constitutional: Denies fever(s) Eyes: Eyes: Denies blurry vision ENT: Reports Normal hearing present Cardiovascular: Cardiovascular: Denies chest pain and Denies dyspnea Respiratory: Respiratory: Denies dyspnea and Denies wheezing Gastrointestinal: Gastrointestinal: Denies abdominal pain Genitourinary: Genitourinary: Denies urinary urgency and Reports other ( Dialysis) Musculoskeletal: Musculoskeletal: Reports as per HPI Integumentary/Breasts: Skin/Breast: Reports other ( left hand wound with dressing) Neurologic: Reports Normal hearing present, Denies behavioral changes, Denies confusion, Denies numbness and Den
== END 2020-07-13 12:43 | disposition home or self-care (01) ==
LOC: ANHWOC 07:28
PROVIDERS: PCP Internal Medicine; Visit Provider Nurse Practitioner Family
DX: Z89.511 Acquired absence of right leg below knee (principal); T81.31XD Disruption of external operation (surgical) wound, not elsewhere classified, subsequent encounter
CPT/HCPCS: 11042; 99212; G0463

== ENCOUNTER 2020-05-12 08:36 | Inpatient (IN) | payer MEDICARE, OTHER, SELFPAY ==
[2020-05-05 10:06] VITALS: BMI 25.0
[2020-05-12] VITALS (11 sets, daily range): BP systolic 146–231; BP diastolic 42–108; PULSE 63–88; RESP 10–20; TEMP 36.2–36.8; O2SAT 96–100; BMI 25.0
--- NOTE | ~2020-05-12 | CT_ITS ---
EXAMINATION: CT brain wo con DATE: 05/16/2020 13:58 INDICATION: Altered mental status TECHNIQUE: Computed tomography (CT) of the head was performed without intravenous contrast. The dose- length product was 605.33 mGy-cm. Automated exposure control and iterative reconstruction technique w ere employed. COMPARISON: None FINDINGS: No acute intracranial hemorrhage, infarction, mass or mass effect. There are scattered mode rate periventricular and subcortical white matter changes, most likely related to small vessel ischem ic disease (microangiopathy). There is intracranial atherosclerosis. No ventriculomegaly or midline s hift. Basilar cisterns are patent. Study limited by motion artifact. Paranasal sinuses are pneumatize d. Mastoids are pneumatized. No depressed skull fractures. IMPRESSION: 1. No acute intracranial abnormality. 2: Chronic age-related findings. Reviewed, dictated and finalized at location A. [facility] [employer]
--- NOTE | 2020-05-12 06:47 | WPDHPUPDATE1 ---
History and Physical Update Update Date/Time: 05/12/20 06:47 History and Physical has been reviewed, including an updated exam of the patient. There are NO changes in the patient's condition. Covid test negative. Risks, benefits, and alternatives have been discussed and questions answered. Patient agrees to proceed with procedure.
--- NOTE | 2020-05-12 08:15 | WPDANESEPP ---
Anes - Eval Pre Procedure Procedure: Operation Date: 05/12/20 12:00 Proposed Procedures p Right Above Knee Amputation - Mauricio Murphy MD Date/Time: 05/12/20 08:15 Pre Op Diagnosis: right non healing amputation site Patient Data Age: 69 Gender: F Height: 1.65 m Weight: 68.18 kg Allergies Allergy/AdvReac Type Severity Reaction Status Date / Time No Known Allergies Allergy Verified 05/05/20 09:37 Home Medications Medication Instructions Recorded Confirmed Type Eliquis 5 mg PO BID 11/03/19 05/05/20 History Tresiba U-100 Insulin 24 unit SUBCUT HS 11/03/19 05/05/20 History carvedilol 25 mg PO BID 11/03/19 05/05/20 History gabapentin 400 mg PO TID 11/03/19 05/05/20 History insulin aspart U-100 [Novolog 8 unit SUBCUT TID 11/03/19 05/05/20 History Flexpen U-100 Insulin] losartan 50 mg PO QAM 11/03/19 05/05/20 History pravastatin 40 mg PO HS 11/03/19 05/05/20 History clopidogrel 75 mg PO QAM 01/24/20 05/05/20 History acetaminophen 1,000 mg PO Q6H PRN 02/11/20 05/05/20 History amlodipine 2.5 mg PO QAM 02/11/20 05/05/20 History ferrous sulfate 324 mg PO BID 02/11/20 05/05/20 History sertraline 25 mg PO QAM 02/11/20 05/05/20 History foam bandage [Mepilex Border #10 ea 02/24/20 04/12/20 Rx Sacrum] B complex with C 20-folic acid 1 cap PO DAILY 05/05/20 05/05/20 History [Renal Softgels] Patient hx anesthesia problems: none Family hx anesthesia problems: none PMFSH Past Medical History Medical History Amputation below knee Anemia associated with acute blood loss Arterial vascular disease Below knee amputation Chronic anemia Diabetes mellitus Digital arterial occlusive disease End-stage renal disease on hemodialysis Erythropoietin deficiency anemia Foot osteomyelitis, right History of amputation of finger Hyperlipidemia Hypertension 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 Osteomyelitis Osteomyelitis of right tibia Renal osteodystrophy Wound dehiscence, surgical Surgical History Surgical History Amputation of right forefoot :Right 4th and 5th ray amputation in 04/2017. :Right foot transmetatarsal amputation with partial fasciotomy due to wet gangrene, osteomyelitis, and necrotizing fasciitis in May 2017. 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 History of below-knee amputation of both lower extremities Left msvvz-syc-xvhi amputation in 2017. Right vrwoc-jlg-fgag amputation in 02/2020. History of carpal tunnel release History of spinal fusion History of surgical procedure on eye proper using laser Related to diabetic retinopathy. History of vascular surgery Right lower extremity stents in March 2017. Left lower extremity stent in 2014. Status post below knee amputation of right lower extremity Family History Family History Mother Family history of diabetes mellitus in first degree relative Father Family history of lung cancer Social History Social History Social History: Surrogate decision maker: Hunter Prado, spouse. Code status: Full code. Smoking packs per day: 1 Smoking cigarettes per day: 20.0 Years smoked: 40 Smoking pack-years: 40.00 Smoking status: Former smoker Smoking end date: 06/03/15 Alcohol intake: former Substance use: never Living arrangements: with family Additional living arrangements comments: Lives with her in [place]. Gender identity (if verbalized by the patient): Female Spiritual care concerns: No Exam Day of Procedure 05/12/20 08:15
[2020-05-12] MEDS: SODIUM CHLORIDE 0.9% IV 500 ML 30 ML IV CONT (11:05)
[2020-05-12 11:06] LABS: Glucose Point of Care 130 (65-105)
[2020-05-12 11:07] LABS: Hematocrit 38.5 % (37.0-47.0); Hemoglobin 12.5 g/dL (12.0-15.0)
[2020-05-12 11:18] LABS: Prothrombin Time 14.2 Seconds (11.1-14.7)
[2020-05-12 11:19] LABS: Anion Gap 4 mmol/L (8-16); Blood Urea Nitrogen 19 mg/dL (7-17); Calcium 8.6 mg/dL (8.4-10.2); Carbon Dioxide 32 mmol/L (22-30); Chloride 103 mmol/L (98-107); Estimated CRCL calculation 28 ml/min; Estimated Glomerular Filt Rate 34; Glucose 141 mg/dL (65-105); Partial Thromboplastin Time 40.1 SECONDS (22.3-36.8); Potassium 4.3 mmol/L (3.4-5.0); Sodium 139 mmol/L (137-145)
[2020-05-12] MEDS: fentaNYL CITRATE INJ (*CRX) 100 MCG/2 ML VIAL 25 MCG IV PUSH ×4 (11:27→16:03)
--- NOTE | 2020-05-12 11:27 | WPDANESEPPF ---
Anes - Initial Pre Proc Eval Procedure: Operation Date: 05/12/20 12:00 Proposed Procedures p Right Above Knee Amputation - Mauricio Murphy MD Date/Time: 05/12/20 11:27 Surgeon: Mauricio Murphy MD Pre Op Diagnosis: right non healing amputation site Patient Data Age: 69 Gender: F Height: 5 ft 5 in Weight: 68.18 kg Allergies Allergy/AdvReac Type Severity Reaction Status Date / Time No Known Allergies Allergy Verified 05/05/20 09:37 Home Medications Medication Instructions Recorded Confirmed Type Eliquis 5 mg PO BID 11/03/19 05/05/20 History Tresiba U-100 Insulin 24 unit SUBCUT HS 11/03/19 05/05/20 History carvedilol 25 mg PO BID 11/03/19 05/05/20 History gabapentin 400 mg PO TID 11/03/19 05/05/20 History insulin aspart U-100 [Novolog 8 unit SUBCUT TID 11/03/19 05/05/20 History Flexpen U-100 Insulin] losartan 50 mg PO QAM 11/03/19 05/05/20 History pravastatin 40 mg PO HS 11/03/19 05/05/20 History clopidogrel 75 mg PO QAM 01/24/20 05/05/20 History acetaminophen 1,000 mg PO Q6H PRN 02/11/20 05/05/20 History amlodipine 2.5 mg PO QAM 02/11/20 05/05/20 History ferrous sulfate 324 mg PO BID 02/11/20 05/05/20 History sertraline 25 mg PO QAM 02/11/20 05/05/20 History foam bandage [Mepilex Border #10 ea 02/24/20 04/12/20 Rx Sacrum] B complex with C 20-folic acid 1 cap PO DAILY 05/05/20 05/05/20 History [Renal Softgels] Laboratory Tests 05/12/20 05/12/20 05/12/20 10:52 10:52 10:52 Hgb 12.5 g/dL D g/dL (12.0-15.0) Hct 38.5 % % (37.0-47.0) PT 14.2 Seconds Seconds (11.1-14.7) INR 1.0 APTT 40.1 SECONDS H SECONDS (22.3-36.8) Sodium 139 mmol/L mmol/L (137-145) Potassium 4.3 mmol/L mmol/L (3.4-5.0) Chloride 103 mmol/L mmol/L (98-107) Carbon Dioxide 32 mmol/L H mmol/L (22-30) Anion Gap 4 mmol/L L mmol/L (8-16) BUN 19 mg/dL H D mg/dL (7-17) Creatinine 1.50 mg/dL H mg/dL (0.7-1.0) Estim Creat Clear Calc 28 ml/min ml/min Estimated GFR 34 L (59 - ) Glucose 141 mg/dL H mg/dL (65-105) POC Capillary Glucose Calcium 8.6 mg/dL mg/dL (8.4-10.2) 05/12/20 11:01 Hgb Hct PT INR APTT Sodium Potassium Chloride Carbon Dioxide Anion Gap BUN Creatinine Estim Creat Clear Calc Estimated GFR Glucose POC Capillary Glucose 130 mg/dl H mg/dl (65-105) Calcium Patient hx anesthesia problems: none Family hx anesthesia problems: none PMFSH Past Medical History Medical History Amputation below knee Anemia associated with acute blood loss Arterial vascular disease Below knee amputation Chronic anemia Diabetes mellitus Digital arterial occlusive disease End-stage renal disease on hemodialysis Erythropoietin deficiency anemia Foot osteomyelitis, right History of amputation of finger Hyperlipidemia Hypertension 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 Osteomyelitis Osteomyelitis of right tibia Renal osteodystrophy Wound dehiscence, surgical Surgical History Surgical History Amputation of right forefoot :Right 4th and 5th ray amputation in 04/2017. :Right foot transmetatarsal amputation with partial fasciotomy due to wet gangrene, osteomyelitis, and necrotizing fasciitis in May 2017. 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 History of below-knee amputation of both lower extremities Left exyes-pze-ddcl amputation in 2017. Right pdqvl-rup-mqwv amputation in 02/2020. History of carpal tunnel release History of spinal fusion History of surgical p
[2020-05-12] MEDS: ceFAZolin 2 GM/D5W 50 ML 2 GM/50 ML BAG IVPB (13:16)
[2020-05-12 14:59] LABS: Glucose Point of Care 113 (65-105)
[2020-05-12] MEDS: hydrALAZINE HCL 20 MG/ML VIAL 10 MG IV PUSH (15:20)
--- NOTE | 2020-05-12 15:30 | PM.PROC ---
Procedure Note - Detailed Date of procedure: 05/12/20 Pre-op diagnosis: right non healing amputation site Post-op diagnosis: same Procedure performed: right above knee amputation Description of procedure: Indications: Patient is a 69-year-old woman with peripheral vascular disease renal failure and diabetes who underwent a previous right transtibial amputation. This was complicated by postoperative wound necrosis, wound dehiscence and tibial osteomyelitis. She presents now for treatment with above knee amputation. What was done: Patient identified in the preoperative holding. Informed consent given. Operative extremity marked. Patient received intravenous antibiotics. Patient brought to the operating room where underwent general anesthetic by anesthesia team. Positioned supine on operating room table. Time-out performed confirming the patient, site of the surgery and the plan. The right leg was prepped and draped usual sterile surgical fashion using a Betadine prep solution. There was a large ulceration from the previous below-knee amputation approximately 6 x 7 cm over the midportion of the incision with necrotic tissue as well as exposed tibia which appear to be infected. Sterile stockinette was placed over this and secured. Local anesthetic with 0.5% Marcaine plain was done at the distal thigh. Skin incision was marked out on the leg to allow for a posterior skin flap. Ten blade knife was used to make the incision just proximal to the patella with a posterior based flap. Hemostasis was controlled electrocautery. Bovie dissection was then carried down through the soft tissue and the fascia in circumferential fashion. The superficial femoral artery was then dissected out from the posteromedial aspect of the distal femur this was suture ligated and cut. Sagittal saw was then used to transect the femur. Amputation knife was then used to divide the soft tissue posterior to the femur to complete the amputation. The distal stump was then passed off as specimen. Anterior portion of the femur was shaped with the sagittal saw to remove pressure. Bleeding points were either coagulated or controlled with suture ligation. Meticulous hemostasis was ensured. Wound was then thoroughly irrigated antibiotic solution. The posterior fascia was repaired to the anterior fascia with 0 Vicryl interrupted suture including the quadriceps tendon. Subcutaneous tissue repaired with 2 Vicryl interrupted suture and skin repaired with randa. Sterile dressing applied. The patient was then woken from anesthesia, extubated and taken to the recovery room in stable condition. All sponge, needle, instrument counts were correct at the end of the case. Implants: none Anesthesia: GLMA Surgeon: Mauricio Murphy MD Administrative Analyst: 1st executive administrative assistant Estimated blood loss (mL): 500 Tourniquet time (min): 0 Drains: No Packing: No Pathology: yes ( right leg specimen) Complications: None Condition: stable Disposition: PACU
[2020-05-12] MEDS: ONDANSETRON INJ 4 MG/2 ML VIAL IV PUSH ×2 (16:08→20:51)
[2020-05-12] MEDS: MORPHINE SULFATE (*CRX) 2 MG/ML INJ IV PUSH ×2 (16:34→21:37)
[2020-05-12] MEDS: HYDROcodone/acetaminophen (*CRX) 5-325 MG TABLET 1 TAB PO (17:48)
[2020-05-12] MEDS: FERROUS SULFATE 324 MG TABLET PO (17:50)
[2020-05-12] MEDS: GABAPENTIN 400 MG CAPSULE PO (17:50)
[2020-05-12] MEDS: DOCUSATE SODIUM 100 MG CAPSULE PO (17:50)
[2020-05-12] MEDS: carvediloL 25 MG TABLET PO (17:50)
[2020-05-12] MEDS: APIXABAN 5 MG TABLET PO (17:50)
[2020-05-12 18:03] LABS: Glucose Point of Care 192 (65-105)
--- NOTE | 2020-05-12 18:06 | ADMGEN ---
This patient, Tawana Prado, was admitted to 2 Medical Room 253-01. Patient/family oriented to hospital policies and general routines including ID bracelet, bed and alarms, visiting hours, pain management, procedures, bathroom and other care routines, personal items, smoking policy, room service/diet, and visiting hours. Information on how to activate the Rapid Response Team has been discussed. Patient/Family are encouraged to report perceived risks to care and to ask questions if they do not understand what they are told or what they should do.
--- NOTE | 2020-05-12 19:51 | ADMGEN ---
This patient, Tawana Prado, was admitted to Medical Room [facility] at 1935. Patient/family oriented to hospital policies and general routines including ID bracelet, bed and alarms, visiting hours, pain management, procedures, bathroom and other care routines, personal items, smoking policy, room service/diet, and visiting hours. Information on how to activate the Rapid Response Team has been discussed. Patient/Family are encouraged to report perceived risks to care and to ask questions if they do not understand what they are told or what they should do.
[2020-05-12] MEDS: PRAVASTATIN SODIUM 20 MG TABLET 40 MG PO (20:52)
--- NOTE | 2020-05-12 22:00 | WPDCN ---
Assessment and Plan Assessment and plan (1) Arterial vascular disease: Code(s): I70.90 - Unspecified atherosclerosis Status: Acute (2) End-stage renal disease on hemodialysis: Code(s): N18.6 - End stage renal disease; Z99.2 - Dependence on renal dialysis Status: Acute (3) Insulin dependent type 2 diabetes mellitus: Code(s): E11.9 - Type 2 diabetes mellitus without complications; Z79.4 - FCI (current) use of insulin Status: Acute (4) Hypertension: Qualifiers: Hypertension type: renovascular hypertension Qualified Code(s): I15.0 - Renovascular hypertension Code(s): I10 - Essential (primary) hypertension Status: Acute (5) Chronic anemia: Code(s): D64.9 - Anemia, unspecified Status: Acute (6) Osteomyelitis of right tibia: Qualifiers: Osteomyelitis type: other Qualified Code(s): M86.8X6 - Other osteomyelitis, lower leg Code(s): M86.9 - Osteomyelitis, unspecified Status: Acute Additional Plan Postoperative day 0, status post right fiyst-ghi-nrvc amputation given wound dehiscence and necrosis of a previous right BKA with right tibial osteomyelitis. Wound care and pain control will be deferred to Dr. Murphy as well as antibiotics and DVT prophylaxis. She seems to have been doing a pretty good job with regards to keeping her diabetes under control, and I stressed the importance of good glycemic control to aid in wound healing. We will continue her basal insulin and initiate sliding scale insulin. Her blood pressures were reviewed and they have been high post-operatively, I suspect due to her ongoing nausea and pain. Her antihypertensives have been resumed and we will need to monitor her blood pressures closely. Check baseline labs in a.m.. Nephrology has been consulted for dialysis. Thank you for allowing us to participate in this patient's care. Please do not hesitate to contact us with any questions. We will follow with you. Supervising physician for this medical consultation is Dr. Baljit Mendoza. HPI Data of Consult Date/Time: 05/12/20 22:00 Requesting Physician: Mauricio Murphy MD Primary Care Provider: Rut Viera, Consult Narrative Narrative: Tawana Prado is a 69-year-old female with peripheral vascular disease, insulin-dependent diabetes, end-stage renal disease on hemodialysis, hypertension, and chronic anemia whom the hospitalist service has been consulted for management of her medical conditions postoperatively. She is known to myself in the hospitalist service as we saw her in consultation on February 18, 2020 at which time she was status post right gqawl-aff-cdrw amputation due to ongoing issues with osteomyelitis. Unfortunately her postoperative course has been complicated by wound necrosis and dehiscence with osteomyelitis of the tibia. She is now status post right akmdj-tja-bgag amputation with no immediate complications documented an estimated blood loss of 500 mL. Postoperatively she has had some nausea which has improved with Zofran. She is currently complaining of a tight pain in her right thigh. She has no other complaints and specifically denies fever, chills, sweats, vomiting, chest pain, and shortness of breath. Review of Systems Review of Systems: Narrative: Twelve systems were reviewed with pertinent positives and negatives as per HPI. She denies fever, chills, sweats. No recent cold or flu symptoms. No known exposure to those positive for COVID-19. Her diabetes has been pretty well controlled with a hemoglobin A1c of 6.8% in February 2020. She has occasional lows but nothing too frequent or severe. Except as documented, all other systems were reviewed and are negative. [facility] Past Medical History Medical History (Updated 05/12/20 @ 22:47 by Susan Escudero PA-C) Arterial vascular disease Chronic anemia Digital arterial occlusive disease End-stage renal disease on hemod
[2020-05-13] VITALS (27 sets, daily range): BP systolic 95–217; BP diastolic 42–88; PULSE 70–110; RESP 14–20; TEMP 36–37.4; O2SAT 94–98
[2020-05-13 00:30] LABS: Glucose Point of Care 162 (65-105)
[2020-05-13] MEDS: HYDROcodone/acetaminophen (*CRX) 5-325 MG TABLET 1 TAB PO ×4 (04:37→23:51)
[2020-05-13 05:48] LABS: Basophils Percent Auto 0.3 % (0.2-1.2); Eosinophils Absolute Auto 0.1 K/mm3 (0-0.3); Eosinophils Percent Auto 0.9 % (0-4.4); Hematocrit 32.6 % (37.0-47.0); Hemoglobin 10.3 g/dL (12.0-15.0); Immature Granulocyte Absolute 0.08 K/mm3 (0.00-0.031); Immature Granulocyte Percent A 0.9 % (0-0.5); Lymphocytes Absolute Auto 1.13 K/mm3 (0.9-3.2); Lymphocytes Percent Auto 12.4 % (18.3-44.2); Mean Corpuscular HGB Conc 31.6 g/dl (32-36); Mean Corpuscular Hemoglobin 29.7 pg (26-34); Mean Corpuscular Volume 93.9 fl (80-100); Mean Platelet Volume 11.5 fl (7.4-10.4); Monocytes Absolute Auto 0.5 K/mm3 (0.1-0.6); Monocytes Percent Auto 5.7 % (2.6-8.5); Neutrophils Absolute Auto 7.3 K/mm3 (1.3-6.7); Neutrophils Percent Auto 79.8 % (45.5-73.1); Platelet Count Result 134 k/mm3 (150-375); Red Blood Count 3.47 M/mm3 (4.2-5.4); Red Cell Distribution Width 13.2 % (11.5-14.5); White Blood Count 9.1 K/mm3 (4.5-10.0)
[2020-05-13 06:00] LABS: Hemoglobin A1C 7.5 % (<5.7)
[2020-05-13 06:01] LABS: Anion Gap 4 mmol/L (8-16); Blood Urea Nitrogen 22 mg/dL (7-17); Calcium 7.9 mg/dL (8.4-10.2); Carbon Dioxide 30 mmol/L (22-30); Chloride 102 mmol/L (98-107); Estimated CRCL calculation 25 ml/min; Estimated Glomerular Filt Rate 30; Glucose 174 mg/dL (65-105); Magnesium 1.7 mg/dL (1.6-2.3); Potassium 4.5 mmol/L (3.4-5.0); Sodium 136 mmol/L (137-145)
--- NOTE | 2020-05-13 07:12 | WPDANESPN ---
Anes - Prog Note Post-Op Date/Time: 05/13/20 07:12 Cardiovascular status: normal Respiratory status: normal Airway patency: baseline Mental status: baseline Post-Op hydration status: normal Vital Signs: Last Vital Signs Temp 97.8 F 05/13/20 01:58 Pulse 70 05/13/20 01:58 Resp 20 05/13/20 01:58 BP 142/50 H 05/13/20 01:58 Pulse Ox 98 05/13/20 01:58 Pain Score (VAS): 08/10 I/O: Intake & Output 05/12/20 05/12/20 05/13/20 15:59 23:59 07:59 Intake Total 50 0 Output Total 0 Balance 50 0 Laboratory Tests 05/13/20 05:36 05/13/20 05:36 05/12/20 05/12/20 05/12/20 10:52 10:52 10:52 WBC RBC Hgb 12.5 D Hct 38.5 MCV MCH MCHC RDW Plt Count MPV Immature Gran % (Auto) Neut % (Auto) Lymph % (Auto) [place] % (Auto) Eos % (Auto) Baso % (Auto) Lymph # (Auto) [place] # (Auto) Eos # (Auto) Baso # (Auto) Abs Immat Gran (auto) Absolute Neuts (auto) Absolute Nucleated RBC Nucleated RBC % PT 14.2 INR 1.0 APTT 40.1 H Sodium 139 Potassium 4.3 Chloride 103 Carbon Dioxide 32 H Anion Gap 4 L BUN 19 H D Creatinine 1.50 H Estim Creat Clear Calc 28 Estimated GFR 34 L Glucose 141 H POC Capillary Glucose Hemoglobin A1c Calcium 8.6 Magnesium Blood Type Antibody Screen 05/12/20 05/12/20 05/12/20 10:52 11:01 14:56 WBC RBC Hgb Hct MCV MCH MCHC RDW Plt Count MPV Immature Gran % (Auto) Neut % (Auto) Lymph % (Auto) [place] % (Auto) Eos % (Auto) Baso % (Auto) Lymph # (Auto) [place] # (Auto) Eos # (Auto) Baso # (Auto) Abs Immat Gran (auto) Absolute Neuts (auto) Absolute Nucleated RBC Nucleated RBC % PT INR APTT Sodium Potassium Chloride Carbon Dioxide Anion Gap BUN Creatinine Estim Creat Clear Calc Estimated GFR Glucose POC Capillary Glucose 130 H 113 H Hemoglobin A1c Calcium Magnesium Blood Type O Positive Antibody Screen Negative 05/12/20 05/12/20 05/13/20 18:01 21:42 05:36 WBC 9.1 RBC 3.47 L Hgb 10.3 L Hct 32.6 L MCV 93.9 MCH 29.7 MCHC 31.6 L RDW 13.2 Plt Count 134 L MPV 11.5 H Immature Gran % (Auto) 0.9 H Neut % (Auto) 79.8 H Lymph % (Auto) 12.4 L [place] % (Auto) 5.7 Eos % (Auto) 0.9 Baso % (Auto) 0.3 Lymph # (Auto) 1.13 [place] # (Auto) 0.5 Eos # (Auto) 0.1 Baso # (Auto) 0.0 Abs Immat Gran (auto) 0.08 H Absolute Neuts (auto) 7.3 H Absolute Nucleated RBC 0.0 Nucleated RBC % 0.0 PT INR APTT Sodium Potassium Chloride Carbon Dioxide Anion Gap BUN Creatinine Estim Creat Clear Calc Estimated GFR Glucose POC Capillary Glucose 192 H 162 H Hemoglobin A1c Calcium Magnesium Blood Type Antibody Screen 05/13/20 05/13/20 05:36 05:36 WBC RBC Hgb Hct MCV MCH MCHC RDW Plt Count MPV Immature Gran % (Auto) Neut % (Auto) Lymph % (Auto) [place] % (Auto) Eos % (Auto) Baso % (Auto) Lymph # (Auto) [place] # (Auto) Eos # (Auto) Baso # (Auto) Abs Immat Gran (auto) Absolute Neuts (auto) Absolute Nucleated RBC Nucleated RBC % PT INR APTT Sodium 136 L Potassium 4.5 Chloride 102 Carbon Dioxide 30 Anion Gap 4 L BUN 22 H Creatinine 1.70 H Estim Creat Clear Calc 25 Estimated GFR 30 L Glucose 174 H POC Capillary Glucose Hemoglobin A1c 7.5 H Calcium 7.9 L Magnesium 1.7 Blood Type Antibody Screen Post-procedural complaints: none Patient Feedback: Patient satisfied with anesthetic care.
[2020-05-13 07:41] LABS: Glucose Point of Care 186 (65-105)
--- NOTE | 2020-05-13 08:52 | PM.PNORT ---
Progress Note: A&P Assessment and Plan (1) Osteomyelitis of right tibia: Qualifiers: Osteomyelitis type: other Qualified Code(s): M86.8X6 - Other osteomyelitis, lower leg Code(s): M86.9 - Osteomyelitis, unspecified Status: Acute Assessment and Plan: Postoperative day 1 right above knee amputation. Patient overall stable except for pain control. Difficulty with medication given kidney disease and dialysis. We will see if we can add some breakthrough control. PT/OT for transfers. Plan for dialysis today. Overall goal is for discharge home if pain controlled. Subjective Subjective Date/Time Seen: 05/13/20 08:52 Patient awake and alert. Transferred to sitting at the edge of the bed with the help of therapy. Patient complains of severe pain posterior aspect of the right leg. Was able to sleep last night. Minimal appetite. No nausea or vomiting. Exam Const: General: no acute distress and ill appearing chronically; No in distress or confusion Orientation/consciousness: patient oriented x3 and No confusion HENMT: Head: normal to inspection, normocephalic and atraumatic General nose exam: Normal nares present Eyes: Conjunctivae: conjunctivae normal Sclera: sclerae normal Neck: Neck: supple Resp: Effort & Inspection: normal respiratory effort and no audible wheezes Cardio: Rhythm: regular rhythm GI: GI Palp: Yes Soft to palpation and No Tenderness to palpation present (GI) Skin: General skin exam: no erythema Neuro: General: patient oriented x3 and No confusion Speech: normal speech Extrem: Right lower extremity: knee ( BKA, see below ) Left lower extremity: knee ( BKA) Other: Left hand dehiscence improved. Left BKA is well healed. Right leg dressing in place, clean and dry. Patient able to flex and extend the hip. No purulence drainage. No malodor. Psych: Affect: normal affect Objective Data Vital Signs Vital Signs: Vital Signs - 24 hr 05/12/20 10:18 05/12/20 14:44 05/12/20 14:55 Temperature 97.3 F L 97.6 F Pulse Rate 63 67 67 Respiratory Rate 20 10 L 12 Blood Pressure 183/108 H 195/76 H 231/80 H Pulse Oximetry 100 100 98 05/12/20 15:10 05/12/20 15:25 05/12/20 15:40 Temperature Pulse Rate 66 67 68 Respiratory Rate 16 16 14 Blood Pressure 226/72 H 211/69 H 195/55 H Pulse Oximetry 100 100 98 05/12/20 15:55 05/12/20 16:10 05/12/20 17:50 Temperature Pulse Rate 67 68 88 Respiratory Rate 14 14 Blood Pressure 172/57 H 181/52 H Pulse Oximetry 98 100 05/12/20 18:45 05/12/20 22:00 05/13/20 01:58 Temperature 97.1 F L 98.3 F 97.8 F Pulse Rate 69 73 70 Respiratory Rate 16 20 20 Blood Pressure 146/42 H 170/54 H 142/50 H Pulse Oximetry 96 98 98 05/13/20 05:58 Temperature 98.9 F Pulse Rate 70 Respiratory Rate 16 Blood Pressure 180/48 H Pulse Oximetry 94 Intake/Output Intake/Output: Intake & Output 05/10/20 05/11/20 05/12/20 05/13/20 23:59 23:59 23:59 23:59 Intake Total 50 520 Output Total 0 600 Balance 50 -80 Meds/Results Medications: Active Medications Generic Name Dose Route Start Last Admin Trade Name Freq PRN Reason Stop Dose Admin Acetaminophen 1,000 mg 05/12/20 16:13 Acetaminophen 500 Mg Tablet PO Q6H PRN PAIN RATED 1-3 Hydrocodone Bitart/Acetaminophen 1 tab 05/12/20 16:13 05/13/20 04:37 Hydrocodone/Acetaminophen (*Crx) 5-325 Mg Tablet PO 1 tab Q3H PRN Administration Pain Rated 4-6 Amlodipine Besylate 2.5 mg 05/13/20 09:00 Amlodipine Besylate 2.5 Mg Tablet PO QAM [facility] Apixaban 5 mg 05/12/20 17:00 05/12/20 17:50 Apixaban 5 Mg Tablet PO 5 mg BID KEMI Administration Carvedilol 25 mg 05/12/20 17:00 05/12/20 17:50 Carvedilol 25 Mg Tablet PO 25 mg BID KEMI Administration Clopidogrel Bisulfate 75 mg 05/13/20 09:00 Clopidogrel Bisulfate 75 Mg Tablet PO QAM KEMI Dextrose 12.5 gm 05/12/20 22:59 Dextrose 50% 25 Gm/50 Ml Syringe IV PUS
[2020-05-13] MEDS: APIXABAN 5 MG TABLET PO ×2 (09:11→16:59)
[2020-05-13] MEDS: amLODIPine BESYLATE 2.5 MG TABLET PO (09:11)
[2020-05-13] MEDS: LOSARTAN POTASSIUM 50 MG TABLET PO (09:12)
[2020-05-13] MEDS: carvediloL 25 MG TABLET PO ×2 (09:12→16:59)
[2020-05-13] MEDS: DOCUSATE SODIUM 100 MG CAPSULE PO ×2 (09:12→17:00)
[2020-05-13] MEDS: GABAPENTIN 400 MG CAPSULE PO ×2 (09:12→17:00)
[2020-05-13] MEDS: CLOPIDOGREL BISULFATE 75 MG TABLET PO (09:12)
[2020-05-13] MEDS: FERROUS SULFATE 324 MG TABLET PO ×2 (09:12→17:00)
[2020-05-13] MEDS: VITAMIN B CMPLX/VIT C/FOLIC AC 1 CAPSULE 1 CAP PO (09:13)
[2020-05-13] MEDS: SERTRALINE HCL 25 MG TABLET PO (09:13)
[2020-05-13] MEDS: INSULIN ASPART (*BKC) 100 UNITS/ML 8 UNITS SUB-Q (09:19)
[2020-05-13 11:43] LABS: Hepatitis B Core IgM Result Negative (Negative); Hepatitis B Surface Antigen Negative (Negative)
[2020-05-13 11:56] LABS: Hepatitis B Surface Anti Res Positive
[2020-05-13] MEDS: EPOETIN ALFA-EPBX 10,000 UNITS/ML VIAL 10000 UNITS IV PUSH (13:16)
--- NOTE | 2020-05-13 14:58 | PM.CNNEP ---
Assessment and Plan Assessment and plan (1) End stage renal disease: Code(s): N18.6 - End stage renal disease Status: Chronic Assessment and Plan: HD today and continue M/W/F dialysis schedule follow electrolytes, volume status, and clearance (2) Status post above-knee amputation of right lower extremity: Code(s): Z89.611 - Acquired absence of right leg above knee Status: Acute Assessment and Plan: tolerated the procedure reasonably well local wound care pain control PT/OT as outlined by Orthopedics (3) Anemia: Code(s): D64.9 - Anemia, unspecified Status: Acute Assessment and Plan: due to ESRD Epogen with HD follow trend of H/H (4) Hypertension: Qualifiers: Hypertension type: renovascular hypertension Qualified Code(s): I15.0 - Renovascular hypertension Code(s): I10 - Essential (primary) hypertension Status: Acute Assessment and Plan: reasonable control at this time follow trend of hemodynamics (5) Insulin dependent type 2 diabetes mellitus: Code(s): E11.9 - Type 2 diabetes mellitus without complications; Z79.4 - shelter (current) use of insulin Status: Acute Assessment and Plan: follow accuchecks on SSI Will continue to follow. History of Present Illness Reason for Consult Consult date: 05/13/20 Reason for consult: end stage renal disease Chief Complaint Chief complaint: Right tibia osteo History of Present Illness Narrative: The patient is a 69-year-old female with past medical history as outlined below who was admitted to the hospital following her planned/scheduled right above knee amputation. The patient was recently admitted several months ago for issues/problems of right lower extremity wounds/infections. At that time, she underwent a right below-knee amputation for definitive treatment of this issue as it was felt that given her severe peripheral vascular disease, these wounds/infections would never heal with conservative therapy. Unfortunately, her postoperative course in the last few months has been complicated by wound necorosis and dehiscence as well as right tibial osteomyelitis. Hence, she presented yesterday for further surgical intervention in the form of the right above knee amputation. She tolerated the right above knee amputation without any significant issues or problems although she has had some postoperative nausea and decrease in appetite. She does have pain in her right thigh area but her medications seem to be helping to some degree. She has no other acute issues or complaints at this time with regard to fevers, chills chest pain, or shortness of breath. Renal consultation was requested due to her end-stage renal disease. The patient normally dialyzes on a Saturday, Saturday, Saturday dialysis schedule at [facility] dialysis under the care of Dr. Clarke. she usually does reasonably well with her dialysis treatments although she has had issues /problems with dialysis access as her previous AV fistula cause steal syndrome and she currently dialyzes through a tunneled dialysis catheter. She is currently receiving dialysis at the time of this dictation and seems to be doing reasonably well. She has no critical electrolyte abnormalities and her volume status appears to be stable at this time as well. Currently, her only major complaint is that of some thigh pain which is tolerable. Review of Systems Review of Systems: Narrative: As per HPI. [facility] Past Medical History Medical History (Updated 05/14/20 @ 07:47 by Elio Pereira MD) Arterial vascular disease Chronic anemia Digital arterial occlusive disease End-stage renal disease on hemodialysis Saturday, Saturday, Saturday. 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 Hemoglobin A1c was 6.8% in February 2020. [facility]
[2020-05-13 15:33] LABS: Glucose Point of Care 164 (65-105)
--- NOTE | 2020-05-13 16:31 | PM.IMPN ---
Progress Note: A&P Assessment and Plan (1) Osteomyelitis of right tibia: Qualifiers: Osteomyelitis type: other Qualified Code(s): M86.8X6 - Other osteomyelitis, lower leg Code(s): M86.9 - Osteomyelitis, unspecified Status: Acute Assessment and Plan: -status post above the knee amputation postop day 1 -patient doing well overall -continue Eliquis -continue with Dr. Murphy says recommendations (2) Insulin dependent type 2 diabetes mellitus: Code(s): E11.9 - Type 2 diabetes mellitus without complications; Z79.4 - intermediate manager (current) use of insulin Status: Acute Assessment and Plan: Last glucose 164 -I am hesitant to start long-acting insulin since the patient isn't eating every meal -will continue sliding scale insulin and will add Lantus if her glucose worsens -A1c 7.5 (3) Arterial vascular disease: Code(s): I70.90 - Unspecified atherosclerosis Status: Acute Assessment and Plan: Patient has a right fakys-nxx-xpxy amputation and a left dgnxj-xcu-fcgz amputation -continue Plavix (4) End-stage renal disease on hemodialysis: Code(s): N18.6 - End stage renal disease; Z99.2 - Dependence on renal dialysis Status: Acute Assessment and Plan: Continue dialysis per Nephrology -1500 mL were taken off today within the patient became hypotensive -she continues to have crackles (5) Hypertension: Qualifiers: Hypertension type: renovascular hypertension Qualified Code(s): I15.0 - Renovascular hypertension Code(s): I10 - Essential (primary) hypertension Status: Acute Assessment and Plan: Last blood pressure 149/42 -continue Coreg and losartan (6) Chronic anemia: Code(s): D64.9 - Anemia, unspecified Status: Acute Assessment and Plan: Hemoglobin 10.3 and stable -continue Epoetin Time Spent With Patient Time with patient: 25 - 35 minutes Subjective Date/time seen: 05/13/20 16:31 Interval history: Pt is a 69-year-old female here for right above the knee amputation. Patient was seen today while and dialysis and was very sleepy but able to answer my questions. She states her pain was controlled. Pt denies nausea, vomiting, fevers, chills, constipation, diarrhea, chest pain, sob, or abdominal pain. She has been really tired and does not have much of an appetite Review of Systems Review of Systems: All systems reviewed & are unremarkable except as noted in HPI and below Exam Narrative: Exam Narrative: General: Elderly patient resting comfortably in bed in no acute distress HEENT: normocephalic Neck: supple Neuro: Alert and oriented x to herself, place and situation but did not know the president or the year. Somnolent on exam but easily aroused. No neurological deficits noted CV:RRR Resp: Crackles bilaterally Abd: Soft, non distended. No pain to palpation. Positive bowel sounds Extremities: Right above the knee amputation wrapped in Chente wrap without excessive bleeding noted. Left mjvpg-tqu-qsuq amputation Objective Data Vital Signs Vital Signs: Vital Signs - 24 hr 05/12/20 17:50 05/12/20 18:45 05/12/20 22:00 Temperature 97.1 F L 98.3 F Pulse Rate 88 69 73 Respiratory Rate 16 20 Blood Pressure 146/42 H 170/54 H Pulse Oximetry 96 98 05/13/20 01:58 05/13/20 05:58 05/13/20 08:00 Temperature 97.8 F 98.9 F Pulse Rate 70 70 70 Respiratory Rate 20 16 16 Blood Pressure 142/50 H 180/48 H Pulse Oximetry 98 94 94 05/13/20 09:12 05/13/20 10:00 05/13/20 11:07 Temperature 97.8 F 99.3 F Pulse Rate 70 76 77 Respiratory Rate 14 18 Blood Pressure 183/50 H 196/79 H Pulse Oximetry 95 05/13/20 11:20 05/13/20 11:30 05/13/20 11:45 Temperature Pulse Rate 73 74 71 Respiratory Rate Blood Pressure 217/88 H 183/84 H 152/67 H Pulse Oximetry 05/13/20 12:00 05/13/20 12:15 05/13/20 12:24 Temperature Pulse Rate 88 79 1
[2020-05-13 17:14] LABS: Glucose Point of Care 167 (65-105)
--- NOTE | 2020-05-13 18:22 | PC.NURSE ---
Patient picked at pudding, and some liquids for dinner. Scheduled insulin was held due to poor intake.
[2020-05-13] MEDS: PRAVASTATIN SODIUM 20 MG TABLET 40 MG PO (20:41)
[2020-05-13] MEDS: MORPHINE SULFATE (*CRX) 2 MG/ML INJ IV PUSH (20:44)
[2020-05-13] MEDS: ONDANSETRON INJ 4 MG/2 ML VIAL IV PUSH (20:46)
[2020-05-13 20:51] LABS: Glucose Point of Care 314 (65-105)
[2020-05-14] VITALS (8 sets, daily range): BP systolic 121–155; BP diastolic 41–52; PULSE 64–77; RESP 14–18; TEMP 36.2–37.3; O2SAT 95–98
[2020-05-14] MEDS: HYDROcodone/acetaminophen (*CRX) 5-325 MG TABLET 1 TAB PO ×4 (05:01→20:36)
[2020-05-14 06:22] LABS: Hematocrit 31.8 % (37.0-47.0); Hemoglobin 10.1 g/dL (12.0-15.0)
[2020-05-14 06:35] LABS: Alanine Aminotransferase 13 U/L (4-35); Albumin Level 2.8 g/dL (3.5-5.1); Alkaline Phosphatase 124 U/L (38-126); Anion Gap 4 mmol/L (8-16); Aspartate Amino Transferase 25 U/L (14-36); Bilirubin,Total 0.4 mg/dL (0.2-1.3); Blood Urea Nitrogen 19 mg/dL (7-17); Carbon Dioxide 28 mmol/L (22-30); Chloride 102 mmol/L (98-107); Estimated CRCL calculation 20 ml/min; Estimated Glomerular Filt Rate 23; Glucose 227 mg/dL (65-105); Potassium 4.3 mmol/L (3.4-5.0); Sodium 134 mmol/L (137-145)
[2020-05-14 07:41] LABS: Glucose Point of Care 228 (65-105)
[2020-05-14] MEDS: INSULIN ASPART (*BKC) 100 UNITS/ML SUB-Q (07:46)
[2020-05-14] MEDS: INSULIN ASPART (*BKC) 100 UNITS/ML 8 UNITS SUB-Q ×3 (07:51→18:08)
[2020-05-14] MEDS: APIXABAN 5 MG TABLET PO ×2 (08:01→17:59)
[2020-05-14] MEDS: carvediloL 25 MG TABLET PO ×2 (08:01→18:01)
[2020-05-14] MEDS: amLODIPine BESYLATE 2.5 MG TABLET PO (08:01)
[2020-05-14] MEDS: DOCUSATE SODIUM 100 MG CAPSULE PO ×2 (08:05→18:04)
[2020-05-14] MEDS: FERROUS SULFATE 324 MG TABLET PO ×2 (08:05→18:00)
[2020-05-14] MEDS: GABAPENTIN 400 MG CAPSULE PO ×3 (08:05→18:00)
[2020-05-14] MEDS: CLOPIDOGREL BISULFATE 75 MG TABLET PO (08:05)
[2020-05-14] MEDS: SERTRALINE HCL 25 MG TABLET PO (08:06)
[2020-05-14] MEDS: LOSARTAN POTASSIUM 50 MG TABLET PO (08:06)
[2020-05-14] MEDS: VITAMIN B CMPLX/VIT C/FOLIC AC 1 CAPSULE 1 CAP PO (08:06)
--- NOTE | 2020-05-14 09:02 | PM.PNNEP ---
Progress Note: A&P Assessment and Plan (1) End stage renal disease: Code(s): N18.6 - End stage renal disease Status: Chronic Assessment and Plan: HD Saturday. Volume status looks okay. Potassium is normal. (2) Status post above-knee amputation of right lower extremity: Code(s): Z89.611 - Acquired absence of right leg above knee Status: Acute Assessment and Plan: tolerated the procedure reasonably well local wound care pain control PT/OT as outlined by Orthopedics (3) Anemia: Code(s): D64.9 - Anemia, unspecified Status: Acute Assessment and Plan: due to ESRD Epogen with HD follow trend of H/H (4) Hypertension: Qualifiers: Hypertension type: renovascular hypertension Qualified Code(s): I15.0 - Renovascular hypertension Code(s): I10 - Essential (primary) hypertension Status: Acute Assessment and Plan: Good control (5) Insulin dependent type 2 diabetes mellitus: Code(s): E11.9 - Type 2 diabetes mellitus without complications; Z79.4 - [facility]itentiary (current) use of insulin Status: Acute Assessment and Plan: follow accuchecks on SSI Will continue to follow. Subjective Date/time seen: 05/14/20 09:02 Interval history: Patient is alert. She is feeling okay. Appetite is not very good. She is about to start dialysis. Her pain is moderate right now. She is just getting some pain pills now. No shortness of breath. She just had dialysis yesterday Review of Systems Cardiovascular: Cardiovascular: Reports no additional cardiovascular complaints Respiratory: Respiratory: Reports no additional respiratory complaints Gastrointestinal: Gastrointestinal: Reports no additional gastrointestinal complaints Genitourinary: Genitourinary: Reports no additional female genitourinary complaints Exam Narrative: Exam Narrative: WDWN in NAD skin no rash head ncat lungs clear cor reg no rub abd BS+ nontender and soft ext no edema or cyanosis. Objective Data Vital Signs Vital Signs: Vital Signs - 24 hr 05/13/20 09:12 05/13/20 10:00 05/13/20 11:07 Temperature 36.6 C 37.4 C Pulse Rate 70 76 77 Respiratory Rate 14 18 Blood Pressure 183/50 H 196/79 H Pulse Oximetry 95 05/13/20 11:20 05/13/20 11:30 05/13/20 11:45 Temperature Pulse Rate 73 74 71 Respiratory Rate Blood Pressure 217/88 H 183/84 H 152/67 H Pulse Oximetry 05/13/20 12:00 05/13/20 12:15 05/13/20 12:24 Temperature Pulse Rate 88 79 110 H Respiratory Rate Blood Pressure 141/66 H 117/61 95/45 L Pulse Oximetry 05/13/20 12:27 05/13/20 12:30 05/13/20 12:45 Temperature Pulse Rate 101 H 88 86 Respiratory Rate Blood Pressure 120/55 L 122/55 L 126/49 L Pulse Oximetry 05/13/20 13:00 05/13/20 13:15 05/13/20 13:30 Temperature Pulse Rate 77 81 84 Respiratory Rate Blood Pressure 133/60 127/56 L 104/48 L Pulse Oximetry 05/13/20 13:45 05/13/20 14:00 05/13/20 14:15 Temperature Pulse Rate 81 79 80 Respiratory Rate Blood Pressure 110/52 L 106/49 L 111/51 L Pulse Oximetry 05/13/20 14:32 05/13/20 14:42 05/13/20 15:10 Temperature 36.7 C 36.6 C Pulse Rate 81 74 82 Respiratory Rate 18 14 Blood Pressure 110/49 L 130/53 L 149/42 H Pulse Oximetry 94 05/13/20 16:59 05/13/20 18:00 05/13/20 21:41 Temperature 36.7 C 36.2 C L Pulse Rate 82 84 76 Respiratory Rate 16 18 Blood Pressure 166/51 H 121/48 L Pulse Oximetry 97 98 05/14/20 01:24 05/14/20 06:00 05/14/20 08:01 Temperature 36.3 C L 36.3 C L Pulse Rate 68 64 76 Respiratory Rate 18 16 Blood Pressure 136/41 L 132/45 L Pulse Oximetry 97 95 Intake/Output Intake/Output: Intake & Output 05/11/20 05/12/20 05/13/20 05/14/20 23:59 23:59 23:59 23:59 Intake Total 50 820 220 Output Total 0 2100 50 Balance 50 -1280 170 Meds/Results Medications: Active Medications Generic Name
--- NOTE | 2020-05-14 09:50 | PM.PNORT ---
Progress Note: A&P Assessment and Plan (1) Osteomyelitis of right tibia: Qualifiers: Osteomyelitis type: other Qualified Code(s): M86.8X6 - Other osteomyelitis, lower leg Code(s): M86.9 - Osteomyelitis, unspecified Status: Acute Assessment and Plan: Postoperative day 2 right above knee amputation. Patient overall stable, pain control Slightly improved. Dressing changed yesterday. appreciate hospitalist and nephrologists input. dialysis yesterday and plan for Saturday. PT/OT for transfers. Overall goal is for discharge home if pain controlled. Subjective Subjective Date/Time Seen: 05/14/20 09:15 Patient awake and alert. Pain better today. Dressing changed yesterday per nursing. Exam Const: General: no acute distress and ill appearing chronically; No in distress or confusion Orientation/consciousness: patient oriented x3 and No confusion HENMT: Head: normal to inspection, normocephalic and atraumatic General nose exam: Normal nares present Eyes: Conjunctivae: conjunctivae normal Sclera: sclerae normal Neck: Neck: supple Resp: Effort & Inspection: normal respiratory effort and no audible wheezes Cardio: Rhythm: regular rhythm GI: GI Palp: Yes Soft to palpation and No Tenderness to palpation present (GI) Skin: General skin exam: no erythema Neuro: General: patient oriented x3 and No confusion Speech: normal speech Extrem: Right lower extremity: knee ( BKA, see below ) Left lower extremity: knee ( BKA) Other: Left hand dehiscence improved. Left BKA is well healed. Right leg dressing in place, clean and dry. Patient able to flex and extend the hip. No purulence drainage. No malodor. Psych: Affect: normal affect Objective Data Vital Signs Vital Signs: Vital Signs - 24 hr 05/13/20 10:00 05/13/20 11:07 05/13/20 11:20 Temperature 97.8 F 99.3 F Pulse Rate 76 77 73 Respiratory Rate 14 18 Blood Pressure 183/50 H 196/79 H 217/88 H Pulse Oximetry 95 05/13/20 11:30 05/13/20 11:45 05/13/20 12:00 Temperature Pulse Rate 74 71 88 Respiratory Rate Blood Pressure 183/84 H 152/67 H 141/66 H Pulse Oximetry 05/13/20 12:15 05/13/20 12:24 05/13/20 12:27 Temperature Pulse Rate 79 110 H 101 H Respiratory Rate Blood Pressure 117/61 95/45 L 120/55 L Pulse Oximetry 05/13/20 12:30 05/13/20 12:45 05/13/20 13:00 Temperature Pulse Rate 88 86 77 Respiratory Rate Blood Pressure 122/55 L 126/49 L 133/60 Pulse Oximetry 05/13/20 13:15 05/13/20 13:30 05/13/20 13:45 Temperature Pulse Rate 81 84 81 Respiratory Rate Blood Pressure 127/56 L 104/48 L 110/52 L Pulse Oximetry 05/13/20 14:00 05/13/20 14:15 05/13/20 14:32 Temperature Pulse Rate 79 80 81 Respiratory Rate Blood Pressure 106/49 L 111/51 L 110/49 L Pulse Oximetry 05/13/20 14:42 05/13/20 15:10 05/13/20 16:59 Temperature 98.0 F 97.9 F Pulse Rate 74 82 82 Respiratory Rate 18 14 Blood Pressure 130/53 L 149/42 H Pulse Oximetry 94 05/13/20 18:00 05/13/20 21:41 05/14/20 01:24 Temperature 98.0 F 97.1 F L 97.3 F L Pulse Rate 84 76 68 Respiratory Rate 16 18 18 Blood Pressure 166/51 H 121/48 L 136/41 L Pulse Oximetry 97 98 97 05/14/20 06:00 05/14/20 08:01 Temperature 97.4 F L Pulse Rate 64 76 Respiratory Rate 16 Blood Pressure 132/45 L Pulse Oximetry 95 Intake/Output Intake/Output: Intake & Output 05/11/20 05/12/20 05/13/20 05/14/20 23:59 23:59 23:59 23:59 Intake Total 50 820 220 Output Total 0 2100 50 Balance 50 -1280 170 Meds/Results Medications: Active Medications Generic Name Dose Route Start Last Admin Trade Name Freq PRN Reason Stop Dose Admin Acetaminophen 1,000 mg 05/12/20 16:13 Acetaminophen 500 Mg Tablet PO Q6H PRN PAIN RATED 1-3 Hydrocodone Bitart/Acetaminophen 1 tab 05/12/20 16:13 05/14/20 08:00 Hydrocodone/Acetaminophen (*Crx) 5-325 Mg Tablet PO 1 tab Q3H PRN Admi
[2020-05-14 11:50] LABS: Glucose Point of Care 171 (65-105)
--- NOTE | 2020-05-14 14:18 | PM.IMPN ---
Progress Note: A&P Assessment and Plan (1) Osteomyelitis of right tibia: Qualifiers: Osteomyelitis type: other Qualified Code(s): M86.8X6 - Other osteomyelitis, lower leg Code(s): M86.9 - Osteomyelitis, unspecified Status: Acute Assessment and Plan: -status post above the knee amputation postop day 2 -patient doing well overall -continue Eliquis -continue with Dr. Murphy recommendations (2) Insulin dependent type 2 diabetes mellitus: Code(s): E11.9 - Type 2 diabetes mellitus without complications; Z79.4 - keno terminal operator (current) use of insulin Status: Acute Assessment and Plan: Last glucose 171 -she was 314 before bed last night and 200s today so I am going to start long-acting insulin -what she takes at home is non formulary. When transitioning to Lantus it is recommended that you take the dose and decrease it by 20%. Because of her low appetite I am just going to do 10 units of Lantus and increase as needed -will continue sliding scale insulin -A1c 7.5 (3) Arterial vascular disease: Code(s): I70.90 - Unspecified atherosclerosis Status: Acute Assessment and Plan: Patient has a right tgojf-uzm-gmlq amputation and a left jlypz-nmy-ntcs amputation -continue Plavix (4) End-stage renal disease on hemodialysis: Code(s): N18.6 - End stage renal disease; Z99.2 - Dependence on renal dialysis Status: Acute Assessment and Plan: Continue dialysis per Nephrology -1500 mL was taken off 05/13/20 -she continues to have crackles but no shortness of breath (5) Hypertension: Qualifiers: Hypertension type: renovascular hypertension Qualified Code(s): I15.0 - Renovascular hypertension Code(s): I10 - Essential (primary) hypertension Status: Acute Assessment and Plan: Last blood pressure 134/46 -continue Coreg and losartan (6) Chronic anemia: Code(s): D64.9 - Anemia, unspecified Status: Acute Assessment and Plan: Hemoglobin 10.1 and stable -continue Epoetin Subjective Date/time seen: 05/14/20 14:18 Interval history: Pt is a 69-year-old female here for right above the knee amputation. Patient was seen today and is doing okay. She does have night of 10 pain and is due for her pain medication at this time. The patient has no other complaints and denies chest pain, shortness of breath, fevers, chills, abdominal pain, nausea or vomiting. She believes her appetite is better. Exam Narrative: Exam Narrative: General: Elderly patient resting comfortably in bed in no acute distress HEENT: normocephalic Neck: supple Neuro: Alert and oriented x4. No neurological deficits noted CV:RRR Resp: Crackles bilaterally Abd: Soft, non distended. No pain to palpation. Positive bowel sounds Extremities: Right above the knee amputation wrapped in Chente wrap with some blood on the gauze wrap. Left xqdvr-nba-qkhd amputation Objective Data Vital Signs Vital Signs: Vital Signs - 24 hr 05/13/20 14:32 05/13/20 14:42 05/13/20 15:10 Temperature 98.0 F 97.9 F Pulse Rate 81 74 82 Respiratory Rate 18 14 Blood Pressure 110/49 L 130/53 L 149/42 H Pulse Oximetry 94 05/13/20 16:59 05/13/20 18:00 05/13/20 21:41 Temperature 98.0 F 97.1 F L Pulse Rate 82 84 76 Respiratory Rate 16 18 Blood Pressure 166/51 H 121/48 L Pulse Oximetry 97 98 05/14/20 01:24 05/14/20 06:00 05/14/20 08:01 Temperature 97.3 F L 97.4 F L Pulse Rate 68 64 76 Respiratory Rate 18 16 Blood Pressure 136/41 L 132/45 L Pulse Oximetry 97 95 05/14/20 10:59 Temperature 99 F Pulse Rate 69 Respiratory Rate 15 Blood Pressure 134/46 L Pulse Oximetry 98 Intake/Output Intake/Output: Intake & Output 05/11/20 05/12/20 05/13/20 05/14/20 23:59 23:59 23:59 23:59 Intake Total 50 820 220 Output Total 0 2100 50 Balance 50 -1280 170 Meds/Results Medications: Active Medications Gener
[2020-05-14 17:43] LABS: Glucose Point of Care 125 (65-105)
[2020-05-14] MEDS: INSULIN GLARGINE (*BKC) 100 UNITS/ML 10 UNITS SUB-Q (20:38)
[2020-05-14] MEDS: PRAVASTATIN SODIUM 20 MG TABLET 40 MG PO (20:39)
[2020-05-14 22:39] LABS: Glucose Point of Care 141 (65-105)
[2020-05-15] VITALS (9 sets, daily range): BP systolic 96–128; BP diastolic 35–52; PULSE 60–88; RESP 16–18; TEMP 36.1–36.9; O2SAT 96–100
[2020-05-15] MEDS: HYDROcodone/acetaminophen (*CRX) 5-325 MG TABLET 1 TAB PO ×4 (00:24→17:08)
[2020-05-15 06:35] LABS: Hematocrit 28.9 % (37.0-47.0); Hemoglobin 9.1 g/dL (12.0-15.0); Mean Corpuscular HGB Conc 31.5 g/dl (32-36); Mean Corpuscular Volume 98.3 fl (80-100); Mean Platelet Volume 11.8 fl (7.4-10.4); Platelet Count Result 143 k/mm3 (150-375); Red Blood Count 2.94 M/mm3 (4.2-5.4); Red Cell Distribution Width 13.7 % (11.5-14.5); White Blood Count 6.8 K/mm3 (4.5-10.0)
--- NOTE | 2020-05-15 07:00 | PM.PNNEP ---
Progress Note: A&P Assessment and Plan (1) End stage renal disease: Code(s): N18.6 - End stage renal disease Status: Chronic Assessment and Plan: HD tomorrow Volume status looks okay. Potassium is pending for today. (2) Status post above-knee amputation of right lower extremity: Code(s): Z89.611 - Acquired absence of right leg above knee Status: Acute Assessment and Plan: tolerated the procedure reasonably well local wound care pain control with oral narcotics. PT/OT (3) Anemia: Code(s): D64.9 - Anemia, unspecified Status: Acute Assessment and Plan: due to ESRD Epogen 10,000 with HD follow trend of H/H (4) Hypertension: Qualifiers: Hypertension type: renovascular hypertension Qualified Code(s): I15.0 - Renovascular hypertension Code(s): I10 - Essential (primary) hypertension Status: Acute Assessment and Plan: Good control (5) Insulin dependent type 2 diabetes mellitus: Code(s): E11.9 - Type 2 diabetes mellitus without complications; Z79.4 - care home (current) use of insulin Status: Acute Assessment and Plan: follow accuchecks on SSI Subjective Date/time seen: 05/15/20 07:00 Interval history: Patient is alert. She is feeling okay. She slept well last night. No shortness of breath. Due for dialysis tomorrow Review of Systems Cardiovascular: Cardiovascular: Reports no additional cardiovascular complaints Respiratory: Respiratory: Reports no additional respiratory complaints Gastrointestinal: Gastrointestinal: Reports no additional gastrointestinal complaints Genitourinary: Genitourinary: Reports no additional female genitourinary complaints Exam Narrative: Exam Narrative: WDWN in NAD skin no rash head ncat lungs clear bilaterally cor reg no rub or gallop abd BS+ nontender and soft ext no edema or cyanosis. Objective Data Vital Signs Vital Signs: Vital Signs - 24 hr 05/14/20 08:01 05/14/20 10:59 05/14/20 14:00 Temperature 37.2 C 37.3 C Pulse Rate 76 69 70 Respiratory Rate 15 14 Blood Pressure 134/46 L 129/44 L Pulse Oximetry 98 98 05/14/20 18:00 05/14/20 18:01 05/14/20 21:44 Temperature 36.4 C 36.2 C L Pulse Rate 75 68 77 Respiratory Rate 18 16 Blood Pressure 155/52 H 121/46 L Pulse Oximetry 98 98 05/15/20 06:00 Temperature 36.1 C L Pulse Rate 72 Respiratory Rate 16 Blood Pressure 128/42 L Pulse Oximetry 100 Intake/Output Intake/Output: Intake & Output 05/12/20 05/13/20 05/14/20 05/15/20 23:59 23:59 23:59 23:59 Intake Total 50 820 1100 300 Output Total 0 2100 350 Balance 50 -1280 750 300 Meds/Results Medications: Active Medications Generic Name Dose Route Start Last Admin Trade Name Freq PRN Reason Stop Dose Admin Acetaminophen 1,000 mg 05/12/20 16:13 Acetaminophen 500 Mg Tablet PO Q6H PRN PAIN RATED 1-3 Hydrocodone Bitart/Acetaminophen 1 tab 05/12/20 16:13 05/15/20 04:45 Hydrocodone/Acetaminophen (*Crx) 5-325 Mg Tablet PO 1 tab Q3H PRN Administration Pain Rated 4-6 Amlodipine Besylate 2.5 mg 05/13/20 09:00 05/14/20 08:01 Amlodipine Besylate 2.5 Mg Tablet PO 2.5 mg QAM KEMI Administration Apixaban 5 mg 05/12/20 17:00 05/14/20 17:59 Apixaban 5 Mg Tablet PO 5 mg BID KEMI Administration Carvedilol 25 mg 05/12/20 17:00 05/14/20 18:01 Carvedilol 25 Mg Tablet PO 25 mg BID KEMI Administration Clopidogrel Bisulfate 75 mg 05/13/20 09:00 05/14/20 08:05 Clopidogrel Bisulfate 75 Mg Tablet PO 75 mg QAM KEMI Administration Dextrose 12.5 gm 05/12/20 22:59 Dextrose 50% 25 Gm/50 Ml Syringe IV PUSH PRN PRN Hypoglycemia Protocol Docusate Sodium 100 mg 05/12/20 17:00 05/14/20 18:04 Docusate Sodium 100 Mg Capsule PO 100 mg BID KEMI Administration Epoetin José-epbx 10,000 units 05/16/20 09:00 Epoetin José-[id number] 1
[2020-05-15 07:09] LABS: Albumin Level 2.7 g/dL (3.5-5.1); Anion Gap 5 mmol/L (8-16); Blood Urea Nitrogen 36 mg/dL (7-17); Calcium 7.9 mg/dL (8.4-10.2); Carbon Dioxide 28 mmol/L (22-30); Chloride 103 mmol/L (98-107); Estimated CRCL calculation 13 ml/min; Estimated Glomerular Filt Rate 13; Glucose 214 mg/dL (65-105); Phosphorus 5.2 mg/dL (2.5-4.5); Sodium 136 mmol/L (137-145)
[2020-05-15 07:36] LABS: Potassium 4.2 mmol/L (3.4-5.0)
--- NOTE | 2020-05-15 08:21 | PM.PNORT ---
Progress Note: A&P Assessment and Plan (1) Osteomyelitis of right tibia: Qualifiers: Osteomyelitis type: other Qualified Code(s): M86.8X6 - Other osteomyelitis, lower leg Code(s): M86.9 - Osteomyelitis, unspecified Status: Acute Assessment and Plan: Postoperative day 3 right above knee amputation. Patient overall stable, pain control slightly improved. appreciate hospitalist and nephrologists input. dialysis plan for Saturday. PT/OT for transfers. Overall goal is for discharge home if pain controlled and medically stable. Subjective Subjective Date/Time Seen: 05/15/20 08:21 Patient resting comfortably. Pain improved. Appetite slightly improved. Exam Const: General: no acute distress and ill appearing chronically; No in distress or confusion Orientation/consciousness: patient oriented x3 and No confusion HENMT: Head: normal to inspection, normocephalic and atraumatic General nose exam: Normal nares present Eyes: Conjunctivae: conjunctivae normal Sclera: sclerae normal Neck: Neck: supple Resp: Effort & Inspection: normal respiratory effort and no audible wheezes Cardio: Rhythm: regular rhythm GI: GI Palp: Yes Soft to palpation and No Tenderness to palpation present (GI) Skin: General skin exam: no erythema Neuro: General: patient oriented x3 and No confusion Speech: normal speech Extrem: Right lower extremity: knee ( BKA, see below ) Left lower extremity: knee ( BKA) Other: Left hand dehiscence improved. Left BKA is well healed. Right leg dressing in place, clean and dry. Patient able to flex and extend the hip. No purulence drainage. No malodor. Psych: Affect: normal affect Objective Data Vital Signs Vital Signs: Vital Signs - 24 hr 05/14/20 10:59 05/14/20 14:00 05/14/20 18:00 Temperature 99 F 99.1 F 97.6 F Pulse Rate 69 70 75 Respiratory Rate 15 14 18 Blood Pressure 134/46 L 129/44 L 155/52 H Pulse Oximetry 98 98 98 05/14/20 18:01 05/14/20 21:44 05/15/20 06:00 Temperature 97.2 F L 96.9 F L Pulse Rate 68 77 72 Respiratory Rate 16 16 Blood Pressure 121/46 L 128/42 L Pulse Oximetry 98 100 Intake/Output Intake/Output: Intake & Output 12/10/20 05/13/20 05/14/20 05/15/20 23:59 23:59 23:59 23:59 Intake Total 50 820 1100 300 Output Total 0 2100 350 Balance 50 -1280 750 300 Meds/Results Medications: Active Medications Generic Name Dose Route Start Last Admin Trade Name Freq PRN Reason Stop Dose Admin Acetaminophen 1,000 mg 05/12/20 16:13 Acetaminophen 500 Mg Tablet PO Q6H PRN PAIN RATED 1-3 Hydrocodone Bitart/Acetaminophen 1 tab 05/12/20 16:13 05/15/20 04:45 Hydrocodone/Acetaminophen (*Crx) 5-325 Mg Tablet PO 1 tab Q3H PRN Administration Pain Rated 4-6 Amlodipine Besylate 2.5 mg 05/13/20 09:00 05/14/20 08:01 Amlodipine Besylate 2.5 Mg Tablet PO 2.5 mg QAM KEMI Administration Apixaban 5 mg 05/12/20 17:00 05/14/20 17:59 Apixaban 5 Mg Tablet PO 5 mg BID KEMI Administration Calcium Acetate 667 mg 05/15/20 09:00 Calcium Acetate 667 Mg Tablet PO TID KEMI Carvedilol 25 mg 05/12/20 17:00 05/14/20 18:01 Carvedilol 25 Mg Tablet PO 25 mg BID KEMI Administration Clopidogrel Bisulfate 75 mg 05/13/20 09:00 05/14/20 08:05 Clopidogrel Bisulfate 75 Mg Tablet PO 75 mg QAM KEMI Administration Dextrose 12.5 gm 05/12/20 22:59 Dextrose 50% 25 Gm/50 Ml Syringe IV PUSH PRN PRN Hypoglycemia Protocol Docusate Sodium 100 mg 05/12/20 17:00 05/14/20 18:04 Docusate Sodium 100 Mg Capsule PO 100 mg BID KEMI Administration Epoetin José-epbx 10,000 units 05/16/20 09:00 Epoetin José-Epbx 10,000 Units/Ml Vial IV PUSH [facility] Ferrous Sulfate 324 mg 05/12/20 17:00 05/14/20 18:00 Ferrous Sulfate 324 Mg Tablet PO 324 mg BID KEMI Administration Gabapentin 400 mg 05/12/20 17:00 05/14/20 18:00 Gabapentin 400 Mg Capsule PO
[2020-05-15] MEDS: INSULIN ASPART (*BKC) 100 UNITS/ML 8 UNITS SUB-Q (08:41)
[2020-05-15] MEDS: INSULIN ASPART (*BKC) 100 UNITS/ML SUB-Q ×2 (08:41→17:07)
[2020-05-15] MEDS: amLODIPine BESYLATE 2.5 MG TABLET PO (08:45)
[2020-05-15] MEDS: CALCIUM ACETATE 667 MG TABLET PO ×2 (08:46→17:02)
[2020-05-15] MEDS: CLOPIDOGREL BISULFATE 75 MG TABLET PO (08:46)
[2020-05-15] MEDS: APIXABAN 5 MG TABLET PO ×2 (08:46→17:02)
[2020-05-15] MEDS: carvediloL 25 MG TABLET PO ×2 (08:46→17:02)
[2020-05-15] MEDS: GABAPENTIN 400 MG CAPSULE PO ×2 (08:47→17:02)
[2020-05-15] MEDS: VITAMIN B CMPLX/VIT C/FOLIC AC 1 CAPSULE 1 CAP PO (08:47)
[2020-05-15] MEDS: LOSARTAN POTASSIUM 50 MG TABLET PO (08:47)
[2020-05-15] MEDS: FERROUS SULFATE 324 MG TABLET PO ×2 (08:47→17:02)
[2020-05-15] MEDS: SERTRALINE HCL 25 MG TABLET PO (08:47)
[2020-05-15] MEDS: DOCUSATE SODIUM 100 MG CAPSULE PO ×2 (08:53→17:08)
[2020-05-15 09:19] LABS: Glucose Point of Care 226 (65-105)
[2020-05-15 12:11] LABS: Glucose Point of Care 174 (65-105)
[2020-05-15] MEDS: ONDANSETRON INJ 4 MG/2 ML VIAL IV PUSH (12:21)
--- NOTE | 2020-05-15 12:55 | PM.IMPN ---
Progress Note: A&P Assessment and Plan (1) Osteomyelitis of right tibia: Qualifiers: Osteomyelitis type: other Qualified Code(s): M86.8X6 - Other osteomyelitis, lower leg Code(s): M86.9 - Osteomyelitis, unspecified Status: Acute Assessment and Plan: -status post above the knee amputation postop day 3 -patient doing well overall -continue Eliquis -continue with Dr. Murphy recommendations (2) Insulin dependent type 2 diabetes mellitus: Code(s): E11.9 - Type 2 diabetes mellitus without complications; Z79.4 - [employer] professional (current) use of insulin Status: Acute Assessment and Plan: Last glucose 174 -Continue SSI and lantus -hold meal time insulin d/t her throwing up and non-consistent diet -A1c 7.5 (3) Arterial vascular disease: Code(s): I70.90 - Unspecified atherosclerosis Status: Acute Assessment and Plan: Patient has a right pwpqr-[id number] amputation and a left mcxjp-jnu-cpgg amputation -continue Plavix (4) End-stage renal disease on hemodialysis: Code(s): N18.6 - End stage renal disease; Z99.2 - Dependence on renal dialysis Status: Acute Assessment and Plan: Continue dialysis per Nephrology -1500 mL was taken off 05/13/20 -she continues to have crackles but no shortness of breath (5) Hypertension: Qualifiers: Hypertension type: renovascular hypertension Qualified Code(s): I15.0 - Renovascular hypertension Code(s): I10 - Essential (primary) hypertension Status: Acute Assessment and Plan: Last blood pressure 118/38 -continue Coreg and losartan (6) Chronic anemia: Code(s): D64.9 - Anemia, unspecified Status: Acute Assessment and Plan: Hemoglobin 9.1 and stable -continue Epoetin Subjective Date/time seen: 05/15/20 12:55 Interval history: Pt is a 69-year-old female here for right above the knee amputation. Patient was seen today and is sitting down getting a bath. She states she feels a little woozy and is nauseated. This is the 1st time she has been sitting up in a chair since her surgery. She has not had a bowel movement since her surgery but is not having any abdominal pain. She also denies chest pain, shortness of breath, fevers, chills or headache. Exam Narrative: Exam Narrative: General: Elderly patient resting comfortably in the chair in no acute distress but is dry heaving HEENT: normocephalic Neck: supple Neuro: Alert and oriented x4. No neurological deficits noted CV:RRR Resp: Crackles bilaterally Abd: Soft, non distended. No pain to palpation. Positive bowel sounds Extremities: Right above the knee amputation wrapped in Chente wrap with some blood on the gauze wrap. Nurse reports no signs of infection when changing the wound dressing prior to my arrival. Left prelv-ddc-ollb amputation Objective Data Vital Signs Vital Signs: Vital Signs - 24 hr 05/14/20 14:00 05/14/20 18:00 05/14/20 18:01 Temperature 99.1 F 97.6 F Pulse Rate 70 75 68 Respiratory Rate 14 18 Blood Pressure 129/44 L 155/52 H Pulse Oximetry 98 98 05/14/20 21:44 05/15/20 06:00 05/15/20 08:46 Temperature 97.2 F L 96.9 F L Pulse Rate 77 72 88 Respiratory Rate 16 16 Blood Pressure 121/46 L 128/42 L Pulse Oximetry 98 100 05/15/20 10:00 05/15/20 12:19 Temperature 97.4 F L Pulse Rate 71 Respiratory Rate 18 Blood Pressure 96/44 L 118/38 L Pulse Oximetry 97 Intake/Output Intake/Output: Intake & Output 05/12/20 05/13/20 05/14/20 05/15/20 23:59 23:59 23:59 23:59 Intake Total 50 820 1100 520 Output Total 0 2100 350 Balance 50 -1280 750 520 Meds/Results Medications: Active Medications Generic Name Dose Route Start Last Admin Trade Name Freq PRN Reason Stop Dose Admin Acetaminophen 1,000 mg 05/12/20 16:13 Acetaminophen 500 Mg Tablet PO Q6H PRN PAIN RATED 1-3 Hydrocodone Bitart/Acetaminophen 1 tab 05/03
[2020-05-15 17:05] LABS: Glucose Point of Care 209 (65-105)
[2020-05-15] MEDS: PRAVASTATIN SODIUM 20 MG TABLET 40 MG PO (20:30)
[2020-05-15] MEDS: INSULIN GLARGINE (*BKC) 100 UNITS/ML 10 UNITS SUB-Q (20:31)
[2020-05-15 20:50] LABS: Glucose Point of Care 183 (65-105)
[2020-05-16] VITALS (26 sets, daily range): BP systolic 87–155; BP diastolic 34–67; PULSE 56–102; RESP 13–22; TEMP 36.1–37.3; O2SAT 96–98
[2020-05-16 05:44] LABS: Basophils Percent Auto 0.5 % (0.2-1.2); Eosinophils Absolute Auto 0.3 K/mm3 (0-0.3); Hematocrit 29.4 % (37.0-47.0); Hemoglobin 9.1 g/dL (12.0-15.0); Immature Granulocyte Absolute 0.04 K/mm3 (0.00-0.031); Immature Granulocyte Percent A 0.7 % (0-0.5); Lymphocytes Absolute Auto 1.31 K/mm3 (0.9-3.2); Lymphocytes Percent Auto 23.3 % (18.3-44.2); Mean Corpuscular Hemoglobin 30.2 pg (26-34); Mean Corpuscular Volume 97.7 fl (80-100); Mean Platelet Volume 11.6 fl (7.4-10.4); Monocytes Absolute Auto 0.5 K/mm3 (0.1-0.6); Monocytes Percent Auto 8.3 % (2.6-8.5); Neutrophils Absolute Auto 3.5 K/mm3 (1.3-6.7); Neutrophils Percent Auto 62.2 % (45.5-73.1); Platelet Count Result 167 k/mm3 (150-375); Red Blood Count 3.01 M/mm3 (4.2-5.4); Red Cell Distribution Width 13.5 % (11.5-14.5); White Blood Count 5.6 K/mm3 (4.5-10.0)
[2020-05-16 05:58] LABS: Albumin Level 2.7 g/dL (3.5-5.1); Anion Gap 5 mmol/L (8-16); Blood Urea Nitrogen 50 mg/dL (7-17); Calcium 8.2 mg/dL (8.4-10.2); Carbon Dioxide 28 mmol/L (22-30); Chloride 103 mmol/L (98-107); Estimated CRCL calculation 12 ml/min; Estimated Glomerular Filt Rate 12; Glucose 161 mg/dL (65-105); Phosphorus 5.8 mg/dL (2.5-4.5); Potassium 4.4 mmol/L (3.4-5.0); Sodium 136 mmol/L (137-145)
[2020-05-16] MEDS: HYDROcodone/acetaminophen (*CRX) 5-325 MG TABLET 1 TAB PO ×2 (07:32→15:19)
[2020-05-16 07:44] LABS: Glucose Point of Care 187 (65-105)
[2020-05-16] MEDS: CLOPIDOGREL BISULFATE 75 MG TABLET PO (08:57)
[2020-05-16] MEDS: FERROUS SULFATE 324 MG TABLET PO ×2 (08:57→17:35)
[2020-05-16] MEDS: GABAPENTIN 400 MG CAPSULE PO ×3 (08:58→17:35)
[2020-05-16] MEDS: CALCIUM ACETATE 667 MG TABLET PO ×3 (08:58→17:34)
[2020-05-16] MEDS: APIXABAN 5 MG TABLET PO ×2 (08:58→20:21)
[2020-05-16] MEDS: SERTRALINE HCL 25 MG TABLET PO (08:58)
[2020-05-16] MEDS: VITAMIN B CMPLX/VIT C/FOLIC AC 1 CAPSULE 1 CAP PO (08:58)
--- NOTE | 2020-05-16 09:08 | PM.PNORT ---
Progress Note: A&P Assessment and Plan (1) Osteomyelitis of right tibia: Qualifiers: Osteomyelitis type: other Qualified Code(s): M86.8X6 - Other osteomyelitis, lower leg Code(s): M86.9 - Osteomyelitis, unspecified Status: Acute Assessment and Plan: POD #4: Right AKA Continue PT/OT. Continue pain control. Elevate b/l LE on pillows. Monitor drainage. Dressing changed today. Xeroform, gauze, cover dry. Plan for HD today. Dispo: Goal is for d/c home with home health when medically stable. Patient had home health on board prior to admission, resume for post op wound care. Staple removal at 3 weeks post op. Subjective Subjective Date/Time Seen: 05/16/20 09:08 Patient awake. Eating breakfast. Pain well controlled. No new complaints. Review of Systems Constitutional: Constitutional: Denies fever(s) Eyes: Eyes: Denies blurry vision ENT: Reports Normal hearing present Cardiovascular: Cardiovascular: Denies chest pain and Denies dyspnea Respiratory: Respiratory: Denies dyspnea and Denies wheezing Gastrointestinal: Gastrointestinal: Denies abdominal pain Genitourinary: Genitourinary: Denies urinary urgency and Reports other ( Dialysis) Musculoskeletal: Musculoskeletal: Reports as per HPI Integumentary/Breasts: Skin/Breast: Reports other ( left hand wound with dressing) Neurologic: Reports Normal hearing present, Denies behavioral changes, Denies confusion, Denies numbness and Denies convulsions Psychiatric: Psychiatric: Denies behavioral changes, Denies confusion and Denies hallucinations Endocrine: Endocrine: Denies heat intolerance Hematologic/Lymphatic: Hematologic/Lymphatic: Denies easy bleeding Allergic/Immunologic: Allergic/Immunologic: Denies wheezing Exam Const: General: no acute distress and ill appearing chronically; No in distress or confusion Orientation/consciousness: patient oriented x3 and No confusion HENMT: Head: normal to inspection, normocephalic and atraumatic General nose exam: Normal nares present Eyes: Conjunctivae: conjunctivae normal Sclera: sclerae normal Neck: Neck: supple Resp: Effort & Inspection: normal respiratory effort and no audible wheezes Cardio: Rhythm: regular rhythm GI: GI Palp: Yes Soft to palpation and No Tenderness to palpation present (GI) Skin: General skin exam: no erythema Neuro: General: patient oriented x3 and No confusion Speech: normal speech Extrem: Right lower extremity: knee ( BKA, see below ) Left lower extremity: knee ( BKA) Other: Left hand dehiscence improved. Left BKA is well healed. Right AKA dressing changed. Scant drainage. No signs of infection. Patient able to flex/extend the hip. No malodor. New dressing applied. Psych: Affect: normal affect Objective Data Vital Signs Vital Signs: Vital Signs - 24 hr 05/15/20 10:00 05/15/20 12:19 05/15/20 14:00 Temperature 36.3 C L 36.3 C L Pulse Rate 71 60 Respiratory Rate 18 18 Blood Pressure 96/44 L 118/38 L 106/52 L Pulse Oximetry 97 98 05/15/20 16:15 05/15/20 17:02 05/15/20 18:15 Temperature 36.9 C 36.4 C L Pulse Rate 64 70 76 Respiratory Rate 18 18 Blood Pressure 124/48 L 116/50 L Pulse Oximetry 100 99 05/15/20 21:23 05/16/20 06:00 Temperature 36.5 C 36.1 C L Pulse Rate 74 70 Respiratory Rate 18 16 Blood Pressure 118/35 L 138/38 L Pulse Oximetry 96 98 Intake/Output Intake/Output: Intake & Output 05/13/20 05/14/20 05/15/20 05/16/20 23:59 23:59 23:59 23:59 Intake Total 820 1100 890 150 Output Total 2100 350 300 50 Balance -1280 750 590 100 Meds/Results Medications: Active Medications Generic Name Dose Route Start Last Admin Trade Name Freq PRN Reason Stop Dose Admin Acetaminophen 1,000 mg 05/12/20 16:13 Acetaminophen 500 Mg Tablet PO Q6H PRN PAIN RATED 1-3 Hydrocodone Bitart/Acetaminophen 1 tab 05/12/20 16:13 05/16/20 07:32 Hydrocodone/Acetaminophen (*Crx) 5-325 M
--- NOTE | 2020-05-16 10:21 | PM.PNNEP ---
Progress Note: A&P Assessment and Plan (1) End stage renal disease: Code(s): N18.6 - End stage renal disease Status: Chronic Assessment and Plan: HD today. Volume status looks okay. Potassium is normal today. (2) Status post above-knee amputation of right lower extremity: Code(s): Z89.611 - Acquired absence of right leg above knee Status: Acute Assessment and Plan: tolerated the procedure reasonably well local wound care pain control with oral narcotics. PT/OT . Working with a transfer board. She had 1 at home. (3) Anemia: Code(s): D64.9 - Anemia, unspecified Status: Acute Assessment and Plan: due to ESRD Epogen 10,000 with HD Hemoglobin stable at 9.1. (4) Hypertension: Qualifiers: Hypertension type: renovascular hypertension Qualified Code(s): I15.0 - Renovascular hypertension Code(s): I10 - Essential (primary) hypertension Status: Acute Assessment and Plan: Good control (5) Insulin dependent type 2 diabetes mellitus: Code(s): E11.9 - Type 2 diabetes mellitus without complications; Z79.4 - manager intermediate (current) use of insulin Status: Acute Assessment and Plan: follow accuchecks on SSI Subjective Date/time seen: 05/16/20 10:21 Interval history: Patient is alert. She is feeling okay. She is on dialysis now and tolerating it well. She was seen at 9:50 a.m. she slept well last night. Her pain in the stump is much better. She is eager for discharge Review of Systems Cardiovascular: Cardiovascular: Reports no additional cardiovascular complaints Respiratory: Respiratory: Reports no additional respiratory complaints Gastrointestinal: Gastrointestinal: Reports no additional gastrointestinal complaints Genitourinary: Genitourinary: Reports no additional female genitourinary complaints Exam Narrative: Exam Narrative: WDWN in NAD skin no rash or subcu nodules head ncat lungs clear bilaterally cor reg no rub or gallop abd BS+ nontender ext no edema or cyanosis. Objective Data Vital Signs Vital Signs: Vital Signs - 24 hr 05/15/20 12:19 05/15/20 14:00 05/15/20 16:15 Temperature 36.3 C L 36.9 C Pulse Rate 60 64 Respiratory Rate 18 18 Blood Pressure 118/38 L 106/52 L 124/48 L Pulse Oximetry 98 100 05/15/20 17:02 05/15/20 18:15 05/15/20 21:23 Temperature 36.4 C L 36.5 C Pulse Rate 70 76 74 Respiratory Rate 18 18 Blood Pressure 116/50 L 118/35 L Pulse Oximetry 99 96 05/16/20 06:00 05/16/20 09:15 05/16/20 09:33 Temperature 36.1 C L 36.1 C L Pulse Rate 70 73 71 Respiratory Rate 16 18 Blood Pressure 138/38 L 140/53 L 155/67 H Pulse Oximetry 98 05/16/20 09:45 05/16/20 09:54 05/16/20 10:00 Temperature Pulse Rate 70 87 80 Respiratory Rate Blood Pressure 117/55 L 87/34 L 102/44 L Pulse Oximetry 05/16/20 10:15 Temperature Pulse Rate 73 Respiratory Rate Blood Pressure 119/55 L Pulse Oximetry Intake/Output Intake/Output: Intake & Output 05/13/20 05/14/20 05/15/20 05/16/20 23:59 23:59 23:59 23:59 Intake Total 820 1100 890 150 Output Total 2100 350 300 50 Balance -1280 750 590 100 Meds/Results Medications: Active Medications Generic Name Dose Route Start Last Admin Trade Name Freq PRN Reason Stop Dose Admin Acetaminophen 1,000 mg 05/12/20 16:13 Acetaminophen 500 Mg Tablet PO Q6H PRN PAIN RATED 1-3 Hydrocodone Bitart/Acetaminophen 1 tab 05/12/20 16:13 05/16/20 07:32 Hydrocodone/Acetaminophen (*Crx) 5-325 Mg Tablet PO 1 tab Q3H PRN Administration Pain Rated 4-6 Amlodipine Besylate 2.5 mg 05/13/20 09:00 05/15/20 08:45 Amlodipine Besylate 2.5 Mg Tablet PO 2.5 mg QAM KEMI Administration Apixaban 5 mg 05/12/20 17:00 05/16/20 08:58 Apixaban 5 Mg Tablet PO 5 mg BID KEMI Administration Calcium Acetate 667 mg 05/15/20 09:00 05/16/20 08:58
[2020-05-16] MEDS: EPOETIN ALFA-EPBX 10,000 UNITS/ML VIAL 10000 UNITS IV PUSH (11:41)
--- NOTE | 2020-05-16 12:11 | PM.IMPN ---
Progress Note: A&P Assessment and Plan (1) Acute metabolic encephalopathy: Code(s): G93.41 - Metabolic encephalopathy Status: Acute Assessment and Plan: Noted today during dialysis -no neurological deficits noted -patient seems to be improving already -vitals were completely stable and glucose in 130s -differential includes: Infection, stroke, TIA, seizure, hospital delirium, electrolyte shift, CO2 retention, or narcotic use -at this time stroke seems less likely since no neurological deficits and the patient is on Eliquis as well as Plavix. Will order CT scan. Obviously tPA cannot be given since she is on Eliquis and her symptoms are improving already -will await her lab work such as ammonia, ABG, CBC, LFTs, lactic, and will do neurological checks -I spoke with Dr. Murphy and until her blood cultures come back, will start vancomycin and cefepime for infection since she had a recent amputation although this seems less likely since the patient is afebrile with no leukocytosis (2) Osteomyelitis of right tibia: Qualifiers: Osteomyelitis type: other Qualified Code(s): M86.8X6 - Other osteomyelitis, lower leg Code(s): M86.9 - Osteomyelitis, unspecified Status: Acute Assessment and Plan: -status post above the knee amputation postop day 4 -continue Eliquis -continue with Dr. Murphy recommendations -pain under control with pain medications (3) Insulin dependent type 2 diabetes mellitus: Code(s): E11.9 - Type 2 diabetes mellitus without complications; Z79.4 - FPC (current) use of insulin Status: Acute Assessment and Plan: Last glucose 187 -Continue SSI and lantus -hold meal time insulin d/t inconsistent diet -will discharge on home regimen -A1c 7.5 (4) Arterial vascular disease: Code(s): I70.90 - Unspecified atherosclerosis Status: Acute Assessment and Plan: Patient has a right ksxit-zbx-cqja amputation and a left pbrxn-vqv-bbke amputation -continue Plavix (5) End-stage renal disease on hemodialysis: Code(s): N18.6 - End stage renal disease; Z99.2 - Dependence on renal dialysis Status: Acute Assessment and Plan: Continue dialysis per Nephrology -dialysis was done today and 1500 taken off (6) Hypertension: Qualifiers: Hypertension type: renovascular hypertension Qualified Code(s): I15.0 - Renovascular hypertension Code(s): I10 - Essential (primary) hypertension Status: Acute Assessment and Plan: Last blood pressure 117/44 -continue Coreg and losartan (7) Chronic anemia: Code(s): D64.9 - Anemia, unspecified Status: Acute Assessment and Plan: Hemoglobin 9.1 and stable -continue Epoetin Subjective Date/time seen: 05/16/20 12:11 Interval history: Pt is a 69-year-old female here for right above the knee amputation. Patient was seen today during dialysis due to altered mental status. The patient is usually alert and oriented x4 but was hallucinating and only alert and oriented to herself during dialysis. On my exam she seems calm and collective and states she is in no pain. She knows her name, year, president and that she hd surgery but thinks she is at [employer]. It did take her a while to, with these answers. She specifically denied numbness, tingling, chest pain, shortness of breath, fevers, chills, abdominal pain. She states her pain is not that bad in her lower extremity Exam Narrative: Exam Narrative: General: Elderly patient resting comfortably in dialysis in no acute distress HEENT: normocephalic Neck: supple Neuro: Alert and oriented to herself, president, and year but not location. She knew she just had surgery. Cranial nerves 2-12 appear to be intact. Able to do hytbka-rx-tlzk with both extremities. Upper extremities 5/5. Appears to move her lower extremities as well. No slurred speech and tongue is midl
[2020-05-16 13:12] LABS: Glucose Point of Care 135 (65-105)
[2020-05-16] MEDS: HEPARIN SODIUM 1,000 UNITS/ML VIAL 1000 UNITS IV PUSH (13:31)
--- NOTE | 2020-05-16 13:56 | PCPTNOTE ---
The PT treatment was unable to be completed today due to patient being out of room for dialysis and tests. Will continue per Plan of Care frequency and duration.
[2020-05-16 14:20] LABS: Alveolar/Arterial O2 Gradient 38.1 mmHg; Base Excess ABG 3.3 mEq/l (+/-2.0); Carboxyhemoglobin 0.3 % THb (0-2.0); Fractional Inspired Oxygen 21 %; HCO3 ABG 27.7 mEq/l (22.0-26.0); Methemoglobin ABG 0.2 %THb (0-1.5); Oxygen Content ABG 14.3 %vol (16.0-22.0); Oxygen Saturation ABG 92.7 % (95.0-100.0); PCO2 ABG 41.2 mmHg (35.0-45.0); PO2 ABG 62.3 mmHg (80.0-100.0); PO2 FiO2 Ratio Arterial Blood 2.97 %; Reduced Hemoglobin 7.5 %THb (0-5.0); pH ABG 7.445 (7.350-7.450)
[2020-05-16 14:21] LABS: Device ROOM AIR; Modified Allen's Test Pass; Site Drawn RIGHT RADIAL
[2020-05-16] MEDS: amLODIPine BESYLATE 2.5 MG TABLET PO (14:22)
[2020-05-16] MEDS: LOSARTAN POTASSIUM 50 MG TABLET PO (14:23)
[2020-05-16] MEDS: carvediloL 25 MG TABLET PO ×2 (14:23→17:34)
[2020-05-16] MEDS: DOCUSATE SODIUM 100 MG CAPSULE PO ×2 (14:28→17:36)
[2020-05-16 14:50] LABS: Basophils Percent Auto 0.3 % (0.2-1.2); Eosinophils Absolute Auto 0.2 K/mm3 (0-0.3); Eosinophils Percent Auto 2.8 % (0-4.4); Hematocrit 32.6 % (37.0-47.0); Hemoglobin 10.5 g/dL (12.0-15.0); Immature Granulocyte Absolute 0.09 K/mm3 (0.00-0.031); Immature Granulocyte Percent A 1.2 % (0-0.5); Lymphocytes Absolute Auto 1.08 K/mm3 (0.9-3.2); Lymphocytes Percent Auto 13.8 % (18.3-44.2); Mean Corpuscular HGB Conc 32.2 g/dl (32-36); Mean Corpuscular Hemoglobin 30.5 pg (26-34); Mean Corpuscular Volume 94.8 fl (80-100); Mean Platelet Volume 11.1 fl (7.4-10.4); Monocytes Absolute Auto 0.5 K/mm3 (0.1-0.6); Neutrophils Absolute Auto 5.9 K/mm3 (1.3-6.7); Neutrophils Percent Auto 75.9 % (45.5-73.1); Platelet Count Result 217 k/mm3 (150-375); Red Blood Count 3.44 M/mm3 (4.2-5.4); Red Cell Distribution Width 13.3 % (11.5-14.5); White Blood Count 7.8 K/mm3 (4.5-10.0)
[2020-05-16 15:03] LABS: Glucose Point of Care 183 (65-105)
[2020-05-16 15:04] LABS: Alanine Aminotransferase 8 U/L (4-35); Albumin Level 3.3 g/dL (3.5-5.1); Alkaline Phosphatase 150 U/L (38-126); Ammonia < 9 umol/L (9-30); Aspartate Amino Transferase 24 U/L (14-36); Bilirubin,Total 0.5 mg/dL (0.2-1.3)
[2020-05-16 15:05] LABS: Lactic Acid Reflex 0.9 mmol/L (0.7-2.1)
[2020-05-16 15:11] LABS: Anion Gap 6 mmol/L (8-16); Blood Urea Nitrogen 15 mg/dL (7-17); Calcium 8.2 mg/dL (8.4-10.2); Carbon Dioxide 32 mmol/L (22-30); Chloride 94 mmol/L (98-107); Estimated CRCL calculation 26 ml/min; Estimated Glomerular Filt Rate 32; Glucose 142 mg/dL (65-105); Potassium 3.6 mmol/L (3.4-5.0); Sodium 132 mmol/L (137-145)
[2020-05-16] MEDS: INSULIN ASPART (*BKC) 100 UNITS/ML SUB-Q (17:37)
[2020-05-16 18:13] LABS: Glucose Point of Care 210 (65-105)
[2020-05-16] MEDS: PRAVASTATIN SODIUM 20 MG TABLET 40 MG PO (20:21)
[2020-05-16] MEDS: INSULIN GLARGINE (*BKC) 100 UNITS/ML 10 UNITS SUB-Q (20:22)
[2020-05-16 20:58] LABS: Glucose Point of Care 222 (65-105)
[2020-05-17 03:54] LABS: Hepatitis B Core Ab Total Nonreactive (Nonreactive)
[2020-05-17 05:45] LABS: Basophils Percent Auto 0.4 % (0.2-1.2); Eosinophils Absolute Auto 0.3 K/mm3 (0-0.3); Eosinophils Percent Auto 4.4 % (0-4.4); Hemoglobin 8.8 g/dL (12.0-15.0); Immature Granulocyte Absolute 0.05 K/mm3 (0.00-0.031); Immature Granulocyte Percent A 0.7 % (0-0.5); Lymphocytes Absolute Auto 1.31 K/mm3 (0.9-3.2); Lymphocytes Percent Auto 18.2 % (18.3-44.2); Mean Corpuscular HGB Conc 32.6 g/dl (32-36); Mean Corpuscular Hemoglobin 30.4 pg (26-34); Mean Corpuscular Volume 93.4 fl (80-100); Mean Platelet Volume 11.3 fl (7.4-10.4); Monocytes Absolute Auto 0.8 K/mm3 (0.1-0.6); Monocytes Percent Auto 10.6 % (2.6-8.5); Neutrophils Absolute Auto 4.7 K/mm3 (1.3-6.7); Neutrophils Percent Auto 65.7 % (45.5-73.1); Platelet Count Result 178 k/mm3 (150-375); Red Blood Count 2.89 M/mm3 (4.2-5.4); Red Cell Distribution Width 13.2 % (11.5-14.5); White Blood Count 7.2 K/mm3 (4.5-10.0)
[2020-05-17 06:00] VITALS: BP 134/59; PULSE 62; RESP 20; TEMP 36.2; O2SAT 98
[2020-05-17 06:02] LABS: Albumin Level 2.7 g/dL (3.5-5.1); Anion Gap 4 mmol/L (8-16); Blood Urea Nitrogen 30 mg/dL (7-17); Calcium 7.8 mg/dL (8.4-10.2); Carbon Dioxide 32 mmol/L (22-30); Chloride 93 mmol/L (98-107); Estimated CRCL calculation 15 ml/min; Estimated Glomerular Filt Rate 17; Glucose 196 mg/dL (65-105); Phosphorus 3.7 mg/dL (2.5-4.5); Sodium 129 mmol/L (137-145)
--- NOTE | 2020-05-17 07:00 | PM.PNNEP ---
Progress Note: A&P Assessment and Plan (1) End stage renal disease: Code(s): N18.6 - End stage renal disease Status: Chronic Assessment and Plan: HD tomorrow. Either here or at her home unit if she is discharged.. (2) Status post above-knee amputation of right lower extremity: Code(s): Z89.611 - Acquired absence of right leg above knee Status: Acute Assessment and Plan: tolerated the procedure reasonably well local wound care PT/OT . (3) Anemia: Code(s): D64.9 - Anemia, unspecified Status: Acute Assessment and Plan: due to ESRD Epogen 10,000 with HD Hemoglobin stable at a value of around 9. (4) Hypertension: Qualifiers: Hypertension type: renovascular hypertension Qualified Code(s): I15.0 - Renovascular hypertension Code(s): I10 - Essential (primary) hypertension Status: Acute Assessment and Plan: Good control (5) Insulin dependent type 2 diabetes mellitus: Code(s): E11.9 - Type 2 diabetes mellitus without complications; Z79.4 - intermediate (current) use of insulin Status: Acute Assessment and Plan: follow accuchecks on SSI Subjective Date/time seen: 05/17/20 07:00 Interval history: Patient is alert. She is feeling okay. Slept well last night. The rest of her dialysis yesterday went well. She is eager for discharge Review of Systems Cardiovascular: Cardiovascular: Reports no additional cardiovascular complaints Respiratory: Respiratory: Reports no additional respiratory complaints Gastrointestinal: Gastrointestinal: Reports no additional gastrointestinal complaints Genitourinary: Genitourinary: Reports no additional female genitourinary complaints Exam Narrative: Exam Narrative: WDWN in NAD skin no rash or subcu nodules head ncat lungs clear bilaterally cor reg no rub or gallop abd BS+ nontender ext no edema or cyanosis. Objective Data Vital Signs Vital Signs: Vital Signs - 24 hr 05/16/20 09:15 05/16/20 09:33 05/16/20 09:45 Temperature 36.1 C L Pulse Rate 73 71 70 Respiratory Rate 18 Blood Pressure 140/53 L 155/67 H 117/55 L Pulse Oximetry 05/16/20 09:54 05/16/20 10:00 05/16/20 10:15 Temperature Pulse Rate 87 80 73 Respiratory Rate Blood Pressure 87/34 L 102/44 L 119/55 L Pulse Oximetry 05/16/20 10:30 05/16/20 10:45 05/16/20 11:00 Temperature Pulse Rate 72 71 102 H Respiratory Rate Blood Pressure 134/54 L 111/49 L 104/57 L Pulse Oximetry 05/16/20 11:15 05/16/20 11:30 05/16/20 11:45 Temperature Pulse Rate 72 72 71 Respiratory Rate Blood Pressure 128/55 L 124/56 L 137/55 L Pulse Oximetry 05/16/20 12:00 05/16/20 12:15 05/16/20 12:30 Temperature Pulse Rate 71 74 89 Respiratory Rate Blood Pressure 140/62 112/56 L 102/57 L Pulse Oximetry 05/16/20 12:45 05/16/20 13:00 05/16/20 13:09 Temperature Pulse Rate 80 83 79 Respiratory Rate Blood Pressure 104/53 L 115/59 L 118/45 L Pulse Oximetry 05/16/20 13:20 05/16/20 14:20 05/16/20 14:23 Temperature 36.6 C 36.6 C Pulse Rate 72 74 72 Respiratory Rate 13 22 H Blood Pressure 117/44 L 154/51 H Pulse Oximetry 97 05/16/20 17:34 05/16/20 18:00 05/16/20 22:00 Temperature 36.2 C L 36.2 C L Pulse Rate 72 76 56 L Respiratory Rate 18 18 Blood Pressure 110/47 L 119/54 L Pulse Oximetry 97 96 Intake/Output Intake/Output: Intake & Output 05/14/20 05/15/20 05/16/20 05/17/20 23:59 23:59 23:59 23:59 Intake Total 1100 890 880 Output Total 709 990 0623 Balance 750 590 -970 Meds/Results Medications: Active Medications Generic Name Dose Route Start Last Admin Trade Name Freq PRN Reason Stop Dose Admin Acetaminophen 1,000 mg 05/12/20 16:13 Acetaminophen 500 Mg Tablet PO Q6H PRN PAIN RATED 1-3 Hydrocodone Bitart/Acetaminophen 1 tab 05/12/20 16:13 05/16/20 15:19 Hydrocodone
[2020-05-17 08:10] LABS: Glucose Point of Care 197 (65-105)
--- NOTE | 2020-05-17 08:46 | PM.PNORT ---
Progress Note: A&P Assessment and Plan (1) Osteomyelitis of right tibia: Qualifiers: Osteomyelitis type: other Qualified Code(s): M86.8X6 - Other osteomyelitis, lower leg Code(s): M86.9 - Osteomyelitis, unspecified Status: Acute Assessment and Plan: POD #5: Right AKA Continue PT/OT. Continue pain control. Elevate b/l LE on pillows. Monitor drainage. Dressing changed. Xeroform, gauze, cover dry. Plan for HD tomorrow at her home unit if medically cleared for d/c per nephrology notes. Dispo: Goal is for d/c home with home health today s/p if medically cleared. Patient had home health on board prior to admission, resume for post op wound care. Staple removal at 3 weeks post op, appt scheduled. Subjective Subjective Date/Time Seen: 05/17/20 08:46 No new complaints. Feels better today. Up in chair eating breakfast. Wants to go home. Review of Systems Constitutional: Constitutional: Denies fever(s) Eyes: Eyes: Denies blurry vision ENT: Reports Normal hearing present Cardiovascular: Cardiovascular: Denies chest pain and Denies dyspnea Respiratory: Respiratory: Denies dyspnea and Denies wheezing Gastrointestinal: Gastrointestinal: Denies abdominal pain Genitourinary: Genitourinary: Denies urinary urgency and Reports other ( Dialysis) Musculoskeletal: Musculoskeletal: Reports as per HPI Integumentary/Breasts: Skin/Breast: Reports other ( left hand wound with dressing) Neurologic: Reports Normal hearing present, Denies behavioral changes, Denies confusion, Denies numbness and Denies convulsions Psychiatric: Psychiatric: Denies behavioral changes, Denies confusion and Denies hallucinations Endocrine: Endocrine: Denies heat intolerance Hematologic/Lymphatic: Hematologic/Lymphatic: Denies easy bleeding Allergic/Immunologic: Allergic/Immunologic: Denies wheezing Exam Const: General: no acute distress and ill appearing chronically; No in distress or confusion Orientation/consciousness: patient oriented x3 and No confusion HENMT: Head: normal to inspection, normocephalic and atraumatic General nose exam: Normal nares present Eyes: Conjunctivae: conjunctivae normal Sclera: sclerae normal Neck: Neck: supple Resp: Effort & Inspection: normal respiratory effort and no audible wheezes Cardio: Rhythm: regular rhythm GI: GI Palp: Yes Soft to palpation and No Tenderness to palpation present (GI) Skin: General skin exam: no erythema Neuro: General: patient oriented x3 and No confusion Speech: normal speech Extrem: Right lower extremity: knee ( BKA, see below ) Left lower extremity: knee ( BKA) Other: Left hand dehiscence improved. Left BKA is well healed. Right AKA dressing changed. Scant drainage. No signs of infection. Patient able to flex/extend the hip. No malodor. New dressing applied. Psych: Affect: normal affect Objective Data Vital Signs Vital Signs: Vital Signs - 24 hr 05/16/20 09:15 05/16/20 09:33 05/16/20 09:45 Temperature 36.1 C L Pulse Rate 73 71 70 Respiratory Rate 18 Blood Pressure 140/53 L 155/67 H 117/55 L Pulse Oximetry 05/16/20 09:54 05/16/20 10:00 05/16/20 10:15 Temperature Pulse Rate 87 80 73 Respiratory Rate Blood Pressure 87/34 L 102/44 L 119/55 L Pulse Oximetry 05/16/20 10:30 05/16/20 10:45 05/16/20 11:00 Temperature Pulse Rate 72 71 102 H Respiratory Rate Blood Pressure 134/54 L 111/49 L 104/57 L Pulse Oximetry 05/16/20 11:15 05/16/20 11:30 05/16/20 11:45 Temperature Pulse Rate 72 72 71 Respiratory Rate Blood Pressure 128/55 L 124/56 L 137/55 L Pulse Oximetry 05/16/20 12:00 05/16/20 12:15 05/16/20 12:30 Temperature Pulse Rate 71 74 89 Respiratory Rate Blood Pressure 140/62 112/56 L 102/57 L Pulse Oximetry 05/16/20 12:45 05/16/20 13:00 05/16/20 13:09 Temperature Pulse Rate 80 83 79 Respiratory Rate Blood Pressure 104/53 L 115/59 L 11
[2020-05-17 09:24] VITALS: PULSE 62
[2020-05-17] MEDS: LOSARTAN POTASSIUM 50 MG TABLET PO (09:24)
[2020-05-17] MEDS: GABAPENTIN 400 MG CAPSULE PO ×2 (09:24→14:04)
[2020-05-17] MEDS: CLOPIDOGREL BISULFATE 75 MG TABLET PO (09:24)
[2020-05-17] MEDS: carvediloL 25 MG TABLET PO (09:24)
[2020-05-17] MEDS: VITAMIN B CMPLX/VIT C/FOLIC AC 1 CAPSULE 1 CAP PO (09:24)
[2020-05-17] MEDS: SERTRALINE HCL 25 MG TABLET PO (09:28)
[2020-05-17] MEDS: amLODIPine BESYLATE 2.5 MG TABLET PO (09:28)
[2020-05-17] MEDS: FERROUS SULFATE 324 MG TABLET PO (09:28)
[2020-05-17] MEDS: APIXABAN 5 MG TABLET PO (09:28)
[2020-05-17] MEDS: CALCIUM ACETATE 667 MG TABLET PO ×2 (09:28→14:04)
[2020-05-17] MEDS: DOCUSATE SODIUM 100 MG CAPSULE PO (09:30)
--- NOTE | 2020-05-17 09:34 | PCOTNOTE ---
Unable to complete OT treatment due to patient refusal. Pt states she is feeling light headed and declines therapy at this time, will continue per POC
--- NOTE | 2020-05-17 11:07 | PM.IMPN ---
Progress Note: A&P Assessment and Plan (1) Acute metabolic encephalopathy: Code(s): G93.41 - Metabolic encephalopathy Status: Resolved Assessment and Plan: Confusion noted during dialysis yesterday; resolved today. Workup including CT brain, ABG, ammonia, routine labs unrevealing. May have been related to electrolyte shift with dialysis vs. TIA. Patient was started empirically on antibiotics yesterday; with blood cultures no growth to date this afternoon, reasonable to stop ABX. She is afebrile without leukocytosis. (2) Osteomyelitis of right tibia: Qualifiers: Osteomyelitis type: other Qualified Code(s): M86.8X6 - Other osteomyelitis, lower leg Code(s): M86.9 - Osteomyelitis, unspecified Status: Acute Assessment and Plan: Status post above the knee amputation postop day 5. Management per the primary service. Patient is medically stable for discharge from hospitalist standpoint. (3) Insulin dependent type 2 diabetes mellitus: Code(s): E11.9 - Type 2 diabetes mellitus without complications; Z79.4 - halfway (current) use of insulin Status: Acute Assessment and Plan: A1c 7.5%; discharge with home regimen. (4) Arterial vascular disease: Code(s): I70.90 - Unspecified atherosclerosis Status: Acute Assessment and Plan: Patient has a right nwdvr-vtf-[id number] amputation and a left oexek-saf-hynp amputation. Continue Plavix (5) End-stage renal disease on hemodialysis: Code(s): N18.6 - End stage renal disease; Z99.2 - Dependence on renal dialysis Status: Acute Assessment and Plan: Continue dialysis per Nephrology recommendations. (6) Hypertension: Qualifiers: Hypertension type: renovascular hypertension Qualified Code(s): I15.0 - Renovascular hypertension Code(s): I10 - Essential (primary) hypertension Status: Acute Assessment and Plan: BPs stable on the lower end. Continue home Coreg and losartan, monitor BP. (7) Chronic anemia: Code(s): D64.9 - Anemia, unspecified Status: Acute Assessment and Plan: Hgb low but stable, has been getting Epogen with dialysis. Monitor CBC. Subjective Date/time seen: 05/17/20 1000 Interval history: Ms. Prado is a 69yo F admitted for right AKA seen in consultation follow up now POD#5. She was confused yesterday during dialysis but is able to answer all questions appropriately for me this morning. She reports minimal right stump discomfort with movement but is tolerable. She denies chest pain, shortness of breath, cough or palpitations. She denies nausea or vomiting. Review of Systems Review of Systems: All systems reviewed & are unremarkable except as noted in HPI and below Exam Narrative: Exam Narrative: General: Female resting comfortably supine in bed in no acute distress. HEENT: Normocephalic, EOMI, oral mucosa moist. Cardiovascular: Rate and rhythm are regular. Respiratory: Lungs clear to auscultation bilaterally. Respirations even and non-labored. Tolerating room air. Abdomen: Soft, non-tender, non-distended, bowel sounds present. Extremities: New right AKA in BENNIE wrap; left BKA with normal appearance. ELIDA radial pulses 2+. Neuro: No focal neurological deficits are noted. Speech is clear. She is awake and answering questions appropriately; oriented to self, [facility], month and year. Appears improved compared to notes from yesterday. Objective Data Vital Signs Vital Signs: Last Vital Signs Temp 97.2 F L 05/17/20 06:00 Pulse 62 05/17/20 09:24 Resp 20 05/17/20 06:00 BP 134/59 L 05/17/20 06:00 Pulse Ox 98 05/17
[2020-05-17 11:44] LABS: Glucose Point of Care 224 (65-105)
[2020-05-17] MEDS: INSULIN ASPART (*BKC) 100 UNITS/ML SUB-Q (11:45)
[2020-05-17 14:00] VITALS: BP 122/42; PULSE 71; RESP 16; TEMP 36.9; O2SAT 98
--- NOTE | 2020-05-24 15:30 | PM.DS ---
DS: Admitting Diagnosis Admitting Diagnosis Admitting Diagnosis: Right tibia osteomyelitis, right leg wound dehiscence peripheral arterial disease DS: Discharge Diagnosis Discharge Diagnosis (1) Status post above-knee amputation of right lower extremity: Code(s): Z89.611 - Acquired absence of right leg above knee Status: Acute Assessment and Plan: dressing changes reviewed with the patient and family. Nonweightbearing right leg. Continue with dialysis as scheduled. Pain control reviewed. Follow up in orthopedic office in 2 to 3 weeks. (2) Osteomyelitis of right tibia: Qualifiers: Osteomyelitis type: other Qualified Code(s): M86.8X6 - Other osteomyelitis, lower leg Code(s): M86.9 - Osteomyelitis, unspecified Status: Acute (3) Wound dehiscence, surgical: Qualifiers: Encounter type: subsequent encounter Qualified Code(s): T81.31XD - Disruption of external operation (surgical) wound, not elsewhere classified, subsequent encounter Code(s): T81.31XA - Disruption of external operation (surgical) wound, not elsewhere classified, initial encounter Status: Acute (4) Insulin dependent type 2 diabetes mellitus: Code(s): E11.9 - Type 2 diabetes mellitus without complications; Z79.4 - residential (current) use of insulin Status: Acute (5) Arterial vascular disease: Code(s): I70.90 - Unspecified atherosclerosis Status: Acute (6) End-stage renal disease on hemodialysis: Code(s): N18.6 - End stage renal disease; Z99.2 - Dependence on renal dialysis Status: Acute DS: Summary Hospital Course Reason for hospitalization: Wound dehiscence with osteomyelitis right leg Hospital Course: Patient with previous right below-knee amputation complicated by wound dehiscence, poor healing and peripheral arterial disease. When on to develop wound necrosis and tibial osteomyelitis. Presents now for conversion of below-knee to above knee amputation. Patient taken the operating room on May 12, 2020 where she underwent right above knee amputation. Tolerated procedure without incident was admitted to the floor postoperatively in stable condition. Patient went to dialysis on May 13 and May 16, 2020. Initially was in difficulty with pain control. Eventually was weaned off of intravenous medications and was stable on oral medication. Her eating gradually improved. Her voiding return to baseline. Dressing changes were started on May 13. Her incision remained stable. Patient cleared for discharge on May 17, 2020 to home with home health in stable condition. Status at Discharge Functional status at discharge: wheelchair bound Overall status at discharge: patient is not back to baseline Time Spent with Patient Time attestation: Total time spent providing and/or coordinating discharge services: Patient with previous right below-knee amputation complicated by wound dehiscence, poor healing and peripheral arterial disease. When on to develop wound necrosis and tibial osteomyelitis. Presents now for conversion of below-knee to above knee amputation. Patient taken the operating room on May 12, 2020 where she underwent right above knee amputation. Tolerated procedure without incident was admitted to the floor postoperatively in stable condition. Patient went to dialysis on May 13 and May 16, 2020. Initially was in difficulty with pain control. Eventually was weaned off of intravenous medications and was stable on oral medication. Her eating gradually improved. Her voiding return to baseline. Dressing changes were started on May 13. Her incision remained stable. Patient cleared for discharge on May 17, 2020 to home with home health in stable condition. Exam Const: General: no acute distress and ill appearing chronically; No in distress or confusion Orientation/consciousness: patient oriented x3 and No confusion SANDRA
== END 2020-05-17 17:55 | disposition home health service (06) | DRG 616 ==
LOC: ANHSURGERY 10:08 → ANH2MED 17:39
PROVIDERS: Anesthesiology; Internal Medicine Nephrology; Physician Assistant; Admitting Provider Orthopaedic Surgery; PCP Internal Medicine; Visit Provider Orthopaedic Surgery
PROC: 0Y6C0Z3 Detachment at Right Upper Leg, Low, Open Approach (ICD-10-PCS; CPT 27882; principal; 2020-05-12 12:00)
DX: E11.69 Type 2 diabetes mellitus with other specified complication (principal); G93.41 Metabolic encephalopathy; M86.8X6 Other osteomyelitis, lower leg; I12.0 Hypertensive chronic kidney disease with stage 5 chronic kidney disease or end stage renal disease; T87.53 Necrosis of amputation stump, right lower extremity; T87.81 Dehiscence of amputation stump; N18.6 End stage renal disease; E11.22 Type 2 diabetes mellitus with diabetic chronic kidney disease; I70.90 Unspecified atherosclerosis; D63.1 Anemia in chronic kidney disease; E78.5 Hyperlipidemia, unspecified; E11.319 Type 2 diabetes mellitus with unspecified diabetic retinopathy without macular edema; E11.21 Type 2 diabetes mellitus with diabetic nephropathy; E11.40 Type 2 diabetes mellitus with diabetic neuropathy, unspecified; N25.0 Renal osteodystrophy; E11.51 Type 2 diabetes mellitus with diabetic peripheral angiopathy without gangrene; Z89.512 Acquired absence of left leg below knee; Z89.511 Acquired absence of right leg below knee; Z99.2 Dependence on renal dialysis; Z79.4 Long term (current) use of insulin; Z87.891 Personal history of nicotine dependence; Z98.1 Arthrodesis status
CPT/HCPCS: 36415; 36600; 70450; 80048; 80069; 80076; 82140; 82375; 82805; 83036; 83050; 83605; 83735; 85014; 85018; 85025; 85027; 85610; 85730; 86704; 86705; 86706; 86850; 86900; 86901; 87040; 87340; 88307; 88311; 97110; 97161; 97165; 97530; 97535; 99212; A9270; C9803; G0257; G0463; J0360; J0690; J0692; J1644; J1815; J2270; J2405; J2704; J3010; J3370; J7030; J7040; Q5106; U0003

== ENCOUNTER 2020-08-03 15:17 | Emergency (ER) | payer MEDICARE, OTHER, SELFPAY ==
--- NOTE | ~2020-08-03 | CT_ITS ---
EXAMINATION: CT thoracic spine wo con EXAM DATE: 08/03/2020 16:28 INDICATION: Fall, mid back pain. TECHNIQUE: Spiral CT thoracic spine wo con was performed without contrast. Axial, coronal and sagit rich images were reviewed. The dose-length product (DLP) for this examination was 1132.52 mGy-cm. Th e exposure was tailored according to patient size (auto mA exposure control), and iterative reconstru ction (ASIR) was used as additional dose reduction technique. There is no prior study for comparison . FINDINGS: There is moderate mid and lower thoracic disc disease. The vertebral body heights are relat ively well-maintained. There are no acute fractures identified. No posterior rib fracture. The verteb ral bodies are aligned in the AP dimension. Mild to moderate thoracic arthropathy. No evidence of tho racic central canal stenosis. Number than mild to moderate thoracic neural foraminal stenosis at some of the midthoracic levels. Linear left basilar atelectasis. Liver granulomata. IMPRESSION: 1. No acute thoracic findings. 2. Moderate thoracic disc disease, mild to moderate arthropathy. Reviewed, dictated and finalized at location A. ACE ATTENDANT
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
--- NOTE | ~2020-08-03 | XR_ITS ---
EXAMINATION: XR chest 1V EXAM DATE: 08/03/2020 16:33 INDICATION: Fell out of wheelchair today, shortness of breath. History high blood pressure, diabetes. TECHNIQUE: Portable AP frontal chest x-ray was obtained. There is no prior study for comparison. FINDINGS: Double-lumen right-sided IJ approach dialysis catheter. There is mild cardiomegaly and pulm onary vascular congestion. Sternotomy wires and plates. Some linear left basilar atelectasis. The julius gs are otherwise clear. There is no pneumothorax suspected. There are no pleural effusions. Mild thor acic dextroscoliosis. IMPRESSION: 1. Cardiomegaly, congestion. 2. Left basilar linear subsegmental atelectasis. Reviewed, dictated and finalized at location A. R VALVE MECHANIC
[2020-08-03 15:29] VITALS: BP 209/84; PULSE 69; RESP 18; TEMP 36.6; O2SAT 100
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
[2020-08-03 15:54] VITALS: BP 192/62
[2020-08-03] MEDS: ACETAMINOPHEN 500 MG TABLET 1000 MG PO (15:54)
[2020-08-03 17:29] VITALS: BP 178/74; PULSE 71; RESP 18; O2SAT 100
== END 2020-08-03 17:49 | disposition home or self-care (01) ==
PROVIDERS: Emergency Provider Emergency Medicine; PCP Internal Medicine
DX: S20.223A Contusion of bilateral back wall of thorax, initial encounter (principal); S16.1XXA Strain of muscle, fascia and tendon at neck level, initial encounter; E11.22 Type 2 diabetes mellitus with diabetic chronic kidney disease; I12.0 Hypertensive chronic kidney disease with stage 5 chronic kidney disease or end stage renal disease; N18.6 End stage renal disease; Z99.2 Dependence on renal dialysis; E11.319 Type 2 diabetes mellitus with unspecified diabetic retinopathy without macular edema; E11.40 Type 2 diabetes mellitus with diabetic neuropathy, unspecified; E11.21 Type 2 diabetes mellitus with diabetic nephropathy; Z87.891 Personal history of nicotine dependence; D63.1 Anemia in chronic kidney disease; E78.5 Hyperlipidemia, unspecified; N25.0 Renal osteodystrophy; Z79.4 Long term (current) use of insulin; Z89.022 Acquired absence of left finger(s); Z89.512 Acquired absence of left leg below knee; Z89.511 Acquired absence of right leg below knee; W05.0XXA Fall from non-moving wheelchair, initial encounter
CPT/HCPCS: 70450; 71045; 72125; 72128; 99284; A9270

== ENCOUNTER 2020-12-28 19:48 | Emergency (ER) | payer MEDICARE, OTHER, SELFPAY ==
[2020-12-28 19:50] VITALS: BP 90/42; PULSE 76; RESP 18; TEMP 36.7; O2SAT 99
[2020-12-28 19:53] LABS: Glucose Point of Care 120 mg/dl (65-105)
--- NOTE | 2020-12-28 20:04 | ECG_ITS ---
Measurements Intervals Peggs Rate: 73 P: 25 MA: 168 QRS: -82 QRSD: 141 T: -14 QT: 427 QTc: 473 Interpretive Statements SINUS RHYTHM LEFT AXIS DEVIATION RIGHT BUNDLE BRANCH BLOCK BASELINE WANDER- I, II, III, AVR, AVL, AVF, V2-V3 ABNORMAL ECG Electronically Signed On 12-29-2020 6:42:50 CDT by Fito Mcintosh D.O.
--- NOTE | 2020-12-28 20:07 | ED.GENADULT ---
HPI - General Adult General Chief complaint: Unspecified Stated complaint: UNKNOWN Time Seen by Provider: 12/28/20 19:48 History of Present Illness HPI narrative: 70 yo female w/ h/o ESRD on dialysis, DM presents to the ED for AMS. She reports that she accidentally took too much insulin. She thinks this happened around 1630 today. Her daughter reports that when she saw her she looked pale and was not talking to her. glucose on arrival here is 120. She is awake and fully oriented. She reports feeling mildly weak and dizzy. She says that sometimes this happens after dialysis, which she had today. No CP, SOB. Related Data Home Medications Medication Instructions Recorded Confirmed Eliquis 5 mg PO BID 11/03/19 06/07/20 Tresiba U-100 Insulin 24 unit SUBCUT HS 11/03/19 06/07/20 carvedilol 25 mg PO BID 11/03/19 06/07/20 gabapentin 400 mg PO TID 11/03/19 06/07/20 insulin aspart U-100 [Novolog 8 unit SUBCUT TID 11/03/19 06/07/20 Flexpen U-100 Insulin] losartan 50 mg PO QAM 11/03/19 06/07/20 pravastatin 40 mg PO HS 11/03/19 06/07/20 clopidogrel 75 mg PO QAM 01/24/20 06/07/20 acetaminophen 1,000 mg PO Q6H PRN 02/11/20 06/07/20 ferrous sulfate 324 mg PO BID 02/11/20 06/07/20 sertraline 25 mg PO QAM 02/11/20 06/07/20 B complex with C 20-folic acid 1 cap PO DAILY 05/05/20 06/07/20 insulin aspart U-100 [Novolog unit SUBCUT 12/28/20 Flexpen U-100 Insulin] Allergies Allergy/AdvReac Type Severity Reaction Status Date / Time No Known Allergies Allergy Verified 12/28/20 19:59 Review of Systems Review of Systems: All systems reviewed & are unremarkable except as noted in HPI and below Constitutional: Constitutional: Denies fever(s) ENT: Reports system reviewed and no additional complaints, except as documented Cardiovascular: Cardiovascular: Denies chest pain Respiratory: Respiratory: Denies dyspnea Gastrointestinal: Gastrointestinal: Denies nausea Genitourinary: Genitourinary: Reports no additional female genitourinary complaints Musculoskeletal: Musculoskeletal: Reports no additional musculoskeletal complaints Neurologic: Reports dizziness and Reports weakness [facility] Past Medical History Medical History Arterial vascular disease Chronic anemia Digital arterial occlusive disease End-stage renal disease on hemodialysis Saturday, Saturday, Saturday. 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 Hemoglobin A1c was 6.8% in February 2020. Osteomyelitis Osteomyelitis of right tibia Renal osteodystrophy Surgical History Surgical History Amputation of right forefoot :Right 4th and 5th ray amputation in 04/2017. :Right foot transmetatarsal amputation with partial fasciotomy due to wet gangrene, osteomyelitis, and necrotizing fasciitis in May 2017. 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 History of below-knee amputation of both lower extremities Left kbxlv-ogk-[id number] amputation in 2017. Right qjhvb-vbg-kplo amputation in 02/2020. History of carpal tunnel release History of right above knee amputation (~05/12/20) History of right below knee amputation (~02/2020) History of spinal fusion History of surgical procedure on eye proper using laser Related to diabetic retinopathy. History of vascular surgery Right lower extremity stents in March 2017. Left lower extremity stent in 2014. Family History Family History Mother Diabetes mellitus Father Lung cancer Social History Social History Social History: Surrogate decision maker: Hunter Prado, spouse. Code status: Full code. Smoking packs per day: 1 Smoking ciga
[2020-12-28 20:28] LABS: Basophils Percent Auto 0.4 % (0.2-1.2); Eosinophils Absolute Auto 0.2 K/mm3 (0-0.3); Hematocrit 34.5 % (37.0-47.0); Hemoglobin 11.3 g/dL (12.0-15.0); Immature Granulocyte Absolute 0.03 K/mm3 (0.00-0.031); Immature Granulocyte Percent A 0.4 % (0-0.5); Lymphocytes Absolute Auto 1.26 K/mm3 (0.9-3.2); Lymphocytes Percent Auto 15.9 % (18.3-44.2); Mean Corpuscular HGB Conc 32.8 g/dl (32-36); Mean Corpuscular Hemoglobin 31.9 pg (26-34); Mean Corpuscular Volume 97.5 fl (80-100); Mean Platelet Volume 11.7 fl (7.4-10.4); Monocytes Absolute Auto 0.6 K/mm3 (0.1-0.6); Monocytes Percent Auto 7.2 % (2.6-8.5); Neutrophils Absolute Auto 5.9 K/mm3 (1.3-6.7); Neutrophils Percent Auto 74.1 % (45.5-73.1); Nucleated Red Blood Cells Perc 0.3 % (0.0-0.2); Platelet Count Result 143 k/mm3 (150-375); Red Blood Count 3.54 M/mm3 (4.2-5.4); Red Cell Distribution Width 12.8 % (11.5-14.5); White Blood Count 7.9 K/mm3 (4.5-10.0)
[2020-12-28 20:39] LABS: Anion Gap 6 mmol/L (8-16); Blood Urea Nitrogen 18 mg/dL (7-17); Calcium 8.4 mg/dL (8.4-10.2); Carbon Dioxide 32 mmol/L (22-30); Chloride 97 mmol/L (98-107); Estimated CRCL calculation 19 ml/min; Estimated Glomerular Filt Rate 19; Glucose 121 mg/dL (65-110); Potassium 4.3 mmol/L (3.4-5.0); Sodium 135 mmol/L (137-145)
[2020-12-28 21:36] LABS: Glucose Point of Care 133 mg/dl (65-105)
[2020-12-28 22:01] VITALS: BP 104/78; PULSE 78; RESP 18; O2SAT 99
== END 2020-12-28 22:02 | disposition home or self-care (01) ==
PROVIDERS: Emergency Provider Emergency Medicine; PCP Internal Medicine
DX: R55 Syncope and collapse (principal); D64.9 Anemia, unspecified; I12.0 Hypertensive chronic kidney disease with stage 5 chronic kidney disease or end stage renal disease; E11.22 Type 2 diabetes mellitus with diabetic chronic kidney disease; N18.6 End stage renal disease; Z99.2 Dependence on renal dialysis; Z79.4 Long term (current) use of insulin; E78.5 Hyperlipidemia, unspecified
CPT/HCPCS: 36415; 80048; 82948; 85025; 93005; 99283

== ENCOUNTER 2021-09-15 09:30 | Emergency (ER) | payer MEDICARE, OTHER, SELFPAY ==
[2021-09-15] VITALS (7 sets, daily range): BP systolic 147–179; BP diastolic 51–64; PULSE 62–79; RESP 14–18; TEMP 36.6; O2SAT 96–100
--- NOTE | ~2021-09-15 | XR_ITS ---
EXAMINATION: XR chest 1V portable EXAM DATE: 09/15/2021 10:16 INDICATION: Shortness of breath. TECHNIQUE: Portable AP frontal chest x-ray was obtained. Comparison is made to prior examination from 08/03/2020. FINDINGS: There is double-lumen dialysis catheter, tip projecting over right atrium. Sternotomy wires in place. No confluent consolidation, pneumothorax or pleural effusion suspected. Cardiomediastinal silhouette is normal. There are no osseous abnormalities identified. There is no significant interval change. IMPRESSION: No acute cardiopulmonary findings. Reviewed, dictated and finalized at location B.
--- NOTE | 2021-09-15 10:02 | ECG_ITS ---
Measurements Intervals [place] Rate: 65 P: 30 FL: 186 QRS: -78 QRSD: 149 T: 18 QT: 457 QTc: 475 Interpretive Statements SINUS RHYTHM LEFT AXIS DEVIATION [QRS AXIS < -30] RIGHT BUNDLE BRANCH BLOCK [120+ ms QRS DURATION, UPRIGHT V1, 40+ ms S IN I/aVL/V4/V5/V6] PROBABLE ANTEROSEPTAL MYOCARDIAL INFARCTION , OF INDETERMINATE AGE [35 ms Q WAVE IN V1- V4] ABNORMAL ECG COMPARED TO ECG 12/28/2020 20:09:04 NO SIGNIFICANT CHANGES Electronically Signed On 09-15-2021 15:48:40 CDT by Noé Calzada M.D.
[2021-09-15] MEDS: ALBUTEROL SULFATE NEB 2.5 MG/0.5 ML INH 5 MG INHALATION (10:23)
--- NOTE | 2021-09-15 10:36 | ED.SOB ---
HPI - SOB/Dyspnea General Chief Complaint: Shortness of Breath/Dyspnea Stated Complaint: shortness of breath Time Seen by Provider: 09/15/21 09:41 Source: patient, EMS, RN notes reviewed and old records reviewed Mode of arrival: EMS Limitations: no limitations History of Present Illness HPI Narrative: This is a 70 year old female with history of CABG, smoking, ESRD on dialysis who presents for evaluation of shortness of breath. Patient states she was short of breath prior to dialysis this morning. She states an hour into her dialysis treatment her shortness of breath worsened. She reports during dialysis she developed chest tightness. She also reports associated nonproductive cough for a couple days and wheezing. She is unsure is she has been diagnosed with COPD or asthma but she does smoke cigarettes. She denies fever, chills, nausea, vomiting or sinus congestion. She denies any sick contacts and she has been vaccinated for covid. She states she feels slightly better but she is still having chest tightness. Her tightness does seem worse with breathing. She is on chronic anticoaguation. Related Data Home Medications Medication Instructions Recorded Confirmed Eliquis 5 mg PO BID 11/03/19 06/07/20 Tresiba U-100 Insulin 24 unit SUBCUT HS 11/03/19 06/07/20 carvedilol 25 mg PO BID 11/03/19 06/07/20 gabapentin 400 mg PO TID 11/03/19 06/07/20 insulin aspart U-100 [Novolog 8 unit SUBCUT TID 11/03/19 06/07/20 Flexpen U-100 Insulin] losartan 50 mg PO QAM 11/03/19 06/07/20 pravastatin 40 mg PO HS 11/03/19 06/07/20 clopidogrel 75 mg PO QAM 01/24/20 06/07/20 acetaminophen 1,000 mg PO Q6H PRN 02/11/20 06/07/20 ferrous sulfate 324 mg PO BID 02/11/20 06/07/20 sertraline 25 mg PO QAM 02/11/20 06/07/20 B complex with C 20-folic acid 1 cap PO DAILY 05/05/20 06/07/20 insulin aspart U-100 [Novolog unit SUBCUT 12/28/20 Flexpen U-100 Insulin] Allergies Allergy/AdvReac Type Severity Reaction Status Date / Time No Known Allergies Allergy Verified 12/28/20 19:59 Review of Systems Review of Systems: All systems reviewed & are unremarkable except as noted in HPI and below PMFSH Past Medical History Medical History Arterial vascular disease Chronic anemia Digital arterial occlusive disease End-stage renal disease on hemodialysis Saturday, Saturday, Saturday. 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 Hemoglobin A1c was 6.8% in February 2020. Osteomyelitis Osteomyelitis of right tibia Renal osteodystrophy Surgical History Surgical History Amputation of right forefoot :Right 4th and 5th ray amputation in 04/2017. :Right foot transmetatarsal amputation with partial fasciotomy due to wet gangrene, osteomyelitis, and necrotizing fasciitis in May 2017. 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 History of below-knee amputation of both lower extremities Left ofjol-bpi-dqhb amputation in 2017. Right pvaod-nec-otue amputation in 02/2020. History of carpal tunnel release History of right above knee amputation (~05/12/20) History of right below knee amputation (~02/2020) History of spinal fusion History of surgical procedure on eye proper using laser Related to diabetic retinopathy. History of vascular surgery Right lower extremity stents in March 2017. Left lower extremity stent in 2014. Family History Family History Mother Diabetes mellitus Father Lung cancer Social History Social History Social History: Surrogate decision maker: Hunteryocasta Prado, spouse. Code status: Full code. Smoking packs per day: 1 Smoking cigarette
[2021-09-15 10:48] LABS: Base Excess ABG 2.8 mEq/l (+/-2.0); Carboxyhemoglobin 2.1 % THb (0-2.0); Fractional Inspired Oxygen 36 %; HCO3 ABG 28.6 mEq/l (22.0-26.0); Methemoglobin ABG 0.3 %THb (0-1.5); Oxygen Content ABG 16.4 %vol (16.0-22.0); Oxygen Saturation ABG 99.4 % (95.0-100.0); PO2 ABG 214.6 mmHg (80.0-100.0); PO2 FiO2 Ratio Arterial Blood 5.96 %; Reduced Hemoglobin 1.6 %THb (0-5.0); Total Hemoglobin 11.8 g/dL (12.0-18.0); pH ABG 7.384 (7.350-7.450)
[2021-09-15 10:50] LABS: Device OTHER DEVICE; Modified Allen's Test Pass; Site Drawn RIGHT RADIAL
[2021-09-15] MEDS: IPRATROPIUM BR 0.02% INH SOLN 0.5 MG/2.5 ML VIAL INHALATION (11:00)
[2021-09-15 11:02] LABS: SARS-CoV-2 RNA PCR Negative
[2021-09-15 11:07] LABS: Basophils Absolute Auto 0.1 K/mm3 (0.0-0.1); Basophils Percent Auto 0.3 % (0.2-1.2); Eosinophils Absolute Auto 0.2 K/mm3 (0-0.3); Eosinophils Percent Auto 1.2 % (0-4.4); Hematocrit 32.3 % (37.0-47.0); Hemoglobin 10.7 g/dL (12.0-15.0); Immature Granulocyte Absolute 0.13 K/mm3 (0.00-0.031); Immature Granulocyte Percent A 0.9 % (0-0.5); Lymphocytes Absolute Auto 1.44 K/mm3 (0.9-3.2); Mean Corpuscular HGB Conc 33.1 g/dl (32-36); Mean Corpuscular Hemoglobin 32.6 pg (26-34); Mean Corpuscular Volume 98.5 fl (80-100); Mean Platelet Volume 11.8 fl (7.4-10.4); Monocytes Absolute Auto 0.7 K/mm3 (0.1-0.6); Monocytes Percent Auto 4.8 % (2.6-8.5); Neutrophils Absolute Auto 11.9 K/mm3 (1.3-6.7); Neutrophils Percent Auto 82.8 % (45.5-73.1); Platelet Count Result 152 k/mm3 (150-375); Red Blood Count 3.28 M/mm3 (4.2-5.4); Red Cell Distribution Width 12.3 % (11.5-14.5); White Blood Count 14.4 K/mm3 (4.5-10.0)
[2021-09-15 11:10] LABS: Alanine Aminotransferase 13 U/L (4-35); Albumin Level 3.6 g/dL (3.5-5.1); Alkaline Phosphatase 218 U/L (38-126); Anion Gap 10 mmol/L (8-16); Aspartate Amino Transferase 19 U/L (14-36); Bilirubin,Total 0.3 mg/dL (0.2-1.3); Blood Urea Nitrogen 30 mg/dL (7-17); Calcium 7.9 mg/dL (8.4-10.2); Carbon Dioxide 27 mmol/L (22-30); Chloride 99 mmol/L (98-107); Estimated Glomerular Filt Rate 11; Glucose 162 mg/dL (65-110); Potassium 4.4 mmol/L (3.4-5.0); Sodium 136 mmol/L (137-145)
[2021-09-15 11:21] LABS: NT Pro B Type Natriuretic Pept 7420 pg/mL (5-100)
[2021-09-15 11:25] LABS: Troponin I < 0.012 ng/mL (0.000-0.034)
--- NOTE | 2021-09-15 12:20 | PC.NURSE ---
[facility] in [place]. They are unable to complete pts treatment today since they close at 2pm.
[2021-09-15] MEDS: predniSONE 20 MG TABLET 60 MG PO (12:28)
--- NOTE | 2021-09-15 12:37 | PC.NURSE ---
Store Operations Manager informed patient that we needed to straight cath her for urine. Patient reported that she does make urine and was able to urinate herself in a bedpan. salvage engineering technician and fiction writer placed patient on bedpan at this time. Patient requested her daughter sit with her until she is able to urinate. Patient's daughter at bedside with call light and instructed to alert staff when patient is able to provide urine sample or is unable and wants to come off the bedpan.
[2021-09-15 13:36] LABS: Glucose Point of Care 119 mg/dl (65-105)
[2021-09-15 13:58] LABS: Bacteria Urine 4+ /hpf; Squamous Epithelial Cell Urine Rare /hpf (Few); WBC Clumps Urine Present /HPF; WBC Urine 51-75 /hpf
--- NOTE | 2021-09-15 14:10 | PC.NURSE ---
Spoke with other [facility] in [place]. They are unable to fit pt in for treatment tomorrow. Pt okay with waiting until saturday.
[2021-09-15 14:12] LABS: Add Urine Microscopic? YES; Appearance Urine Cloudy (Clear); Bilirubin Urine Negative (Negative); Blood Urine 1+ (Negative); Color Urine Yellow (Yellow); Glucose Urine UA Negative (Negative); Ketones Urine Trace mg/dL (Negative); Leukocyte Esterase Ur Trace LEU/UL (Negative); Nitrate Urine Negative (Negative); Protein Urine 3+ mg/dL (Negative); Specific Grav Ur 1.025 (1.001-1.035); Urobilinogen Urine 0.2 mg/dL (<2.0)
== END 2021-09-15 15:20 | disposition home or self-care (01) ==
PROVIDERS: Emergency Provider General Practice; PCP Internal Medicine
DX: J44.1 Chronic obstructive pulmonary disease with (acute) exacerbation (principal); N39.0 Urinary tract infection, site not specified; E11.22 Type 2 diabetes mellitus with diabetic chronic kidney disease; I12.0 Hypertensive chronic kidney disease with stage 5 chronic kidney disease or end stage renal disease; N18.6 End stage renal disease; Z20.822 Contact with and (suspected) exposure to COVID-19; E11.319 Type 2 diabetes mellitus with unspecified diabetic retinopathy without macular edema; E11.40 Type 2 diabetes mellitus with diabetic neuropathy, unspecified; E11.21 Type 2 diabetes mellitus with diabetic nephropathy; I25.10 Atherosclerotic heart disease of native coronary artery without angina pectoris; D64.9 Anemia, unspecified; E78.5 Hyperlipidemia, unspecified; N25.0 Renal osteodystrophy; Z99.2 Dependence on renal dialysis; Z95.1 Presence of aortocoronary bypass graft; Z89.022 Acquired absence of left finger(s); Z89.611 Acquired absence of right leg above knee; Z89.512 Acquired absence of left leg below knee; Z87.891 Personal history of nicotine dependence; I45.10 Unspecified right bundle-branch block; R94.31 Abnormal electrocardiogram [ECG] [EKG]; Z79.01 Long term (current) use of anticoagulants; Z79.4 Long term (current) use of insulin
CPT/HCPCS: 36415; 36600; 71045; 80053; 81001; 82375; 82805; 82948; 83050; 83880; 84484; 85025; 87086; 87088; 93005; 94640; 96365; 99284; C9803; J0696; J7512; U0003; U0005

== ENCOUNTER 2021-10-09 06:58 | Observation (INO) | payer MEDICARE, OTHER, SELFPAY ==
[2021-10-09] VITALS (17 sets, daily range): BP systolic 141–194; BP diastolic 45–102; PULSE 63–73; RESP 11–21; TEMP 36.4–36.9; O2SAT 93–100; BMI 33.1
--- NOTE | ~2021-10-09 | XR_ITS ---
EXAMINATION: XR chest 2V DATE: 10/09/2021 07:32 INDICATION: Shortness of breath and chest pain TECHNIQUE: AP and lateral views of the chest are obtained. COMPARISON: 09/15/2021 FINDINGS: A right internal jugular dialysis catheter ends with its tip in the right atrium. The lungs are free of acute opacities. There is no pleural effusion or pneumothorax. Median sternotomy wires a nd mediastinal surgical clips are seen, likely from prior coronary artery bypass grafting. There is m oderate thoracic spondylosis. IMPRESSION: 1. No acute cardiopulmonary abnormality. Reviewed, dictated and finalized at location A.
--- NOTE | 2021-10-09 07:06 | ECG_ITS ---
Measurements Intervals [place] Rate: 70 P: 95 [place]: 178 QRS: -81 QRSD: 146 T: 39 QT: 434 QTc: 471 Interpretive Statements SINUS RHYTHM LEFT AXIS DEVIATION RIGHT BUNDLE BRANCH BLOCK BASELINE ARTIFACT- V3 ABNORMAL ECG Electronically Signed On 10-09-2021 7:47:47 CDT by Fito Mcintosh D.O.
[2021-10-09 07:16] LABS: Basophils Percent Auto 0.3 % (0.2-1.2); Eosinophils Absolute Auto 0.2 K/mm3 (0-0.3); Eosinophils Percent Auto 1.3 % (0-4.4); Hematocrit 30.7 % (37.0-47.0); Hemoglobin 9.6 g/dL (12.0-15.0); Immature Granulocyte Absolute 0.08 K/mm3 (0.00-0.031); Immature Granulocyte Percent A 0.6 % (0-0.5); Lymphocytes Absolute Auto 1.07 K/mm3 (0.9-3.2); Mean Corpuscular HGB Conc 31.3 g/dl (32-36); Mean Corpuscular Hemoglobin 31.6 pg (26-34); Mean Platelet Volume 11.9 fl (7.4-10.4); Monocytes Absolute Auto 0.3 K/mm3 (0.1-0.6); Monocytes Percent Auto 2.4 % (2.6-8.5); Neutrophils Absolute Auto 11.8 K/mm3 (1.3-6.7); Neutrophils Percent Auto 87.4 % (45.5-73.1); Platelet Count Result 165 k/mm3 (150-375); Red Blood Count 3.04 M/mm3 (4.2-5.4); Red Cell Distribution Width 12.2 % (11.5-14.5); White Blood Count 13.4 K/mm3 (4.5-10.0)
[2021-10-09 07:25] LABS: INR 1.6; Prothrombin Time 18.7 Seconds (11.1-14.7)
[2021-10-09 07:27] LABS: Partial Thromboplastin Time 56.4 SECONDS (22.3-36.8)
[2021-10-09 07:30] LABS: Alanine Aminotransferase 11 U/L (6-35); Albumin Level 3.2 g/dL (3.5-5.1); Alkaline Phosphatase 181 U/L (38-126); Anion Gap 8 mmol/L (8-16); Aspartate Amino Transferase 18 U/L (14-36); Bilirubin,Total 0.3 mg/dL (0.2-1.3); Blood Urea Nitrogen 48 mg/dL (7-17); Calcium 7.5 mg/dL (8.4-10.2); Carbon Dioxide 26 mmol/L (22-30); Chloride 104 mmol/L (98-107); Estimated Glomerular Filt Rate 10; Glucose 150 mg/dL (65-110); Lipase 367 U/L (23-300); Potassium 4.8 mmol/L (3.4-5.0); Sodium 138 mmol/L (137-145)
[2021-10-09 07:41] LABS: Troponin I < 0.012 ng/mL (0.000-0.034)
--- NOTE | 2021-10-09 09:20 | ED.SOB ---
HPI - SOB/Dyspnea General Chief Complaint: Shortness of Breath/Dyspnea Stated Complaint: CP/SOB @ dialysis Time Seen by Provider: 10/09/21 07:11 Source: patient and EMS Mode of arrival: EMS Limitations: clinical condition History of Present Illness HPI Narrative: 70-year-old with a history of diabetes, ESRD on hemodialysis, bilateral BKA, COPD, was brought from dialysis center with complaints of chest pain, shortness of breath. Patient's daughter who is at bedside stated he was she was at the dialysis center started having chest pain. Upon arrival patient denies having any fever or chills or cough. She states that chest pain is much improved. Related Data Home Medications Medication Instructions Recorded Confirmed Eliquis 5 mg PO BID 11/03/19 06/07/20 Tresiba U-100 Insulin 24 unit SUBCUT HS 11/03/19 06/07/20 carvedilol 25 mg PO BID 11/03/19 06/07/20 gabapentin 400 mg PO TID 11/03/19 06/07/20 insulin aspart U-100 [Novolog 8 unit SUBCUT TID 11/03/19 06/07/20 Flexpen U-100 Insulin] losartan 50 mg PO QAM 11/03/19 06/07/20 pravastatin 40 mg PO HS 11/03/19 06/07/20 clopidogrel 75 mg PO QAM 01/24/20 06/07/20 acetaminophen 1,000 mg PO Q6H PRN 02/11/20 06/07/20 ferrous sulfate 324 mg PO BID 02/11/20 06/07/20 sertraline 25 mg PO QAM 02/11/20 06/07/20 B complex with C 20-folic acid 1 cap PO DAILY 05/05/20 06/07/20 insulin aspart U-100 [Novolog unit SUBCUT 12/28/20 Flexpen U-100 Insulin] Allergies Allergy/AdvReac Type Severity Reaction Status Date / Time No Known Allergies Allergy Verified 10/09/21 07:17 Review of Systems Review of Systems: All systems reviewed & are unremarkable except as noted in HPI and below Constitutional: Constitutional: Reports no additional constitutional complaints Eyes: Eyes: Reports no additional eye complaints ENT: Reports system reviewed and no additional complaints, except as documented Cardiovascular: Cardiovascular: Reports as per HPI Respiratory: Respiratory: Reports as per HPI Gastrointestinal: Gastrointestinal: Reports no additional gastrointestinal complaints Musculoskeletal: Musculoskeletal: Reports no additional musculoskeletal complaints [facility] Past Medical History Medical History Arterial vascular disease Chronic anemia Digital arterial occlusive disease End-stage renal disease on hemodialysis Saturday, Saturday, Saturday. 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 Hemoglobin A1c was 6.8% in February 2020. Osteomyelitis Osteomyelitis of right tibia Renal osteodystrophy Surgical History Surgical History Amputation of right forefoot :Right 4th and 5th ray amputation in 04/2017. :Right foot transmetatarsal amputation with partial fasciotomy due to wet gangrene, osteomyelitis, and necrotizing fasciitis in May 2017. 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 History of below-knee amputation of both lower extremities Left ompzo-rhb-dupt amputation in 2017. Right jcogw-rtq-nswf amputation in 02/2020. History of carpal tunnel release History of right above knee amputation (~05/12/20) History of right below knee amputation (~02/2020) History of spinal fusion History of surgical procedure on eye proper using laser Related to diabetic retinopathy. History of vascular surgery Right lower extremity stents in March 2017. Left lower extremity stent in 2014. Family History Family History Mother Diabetes mellitus Father Lung cancer Social History Social History Social History: Surrogate decision maker: Hunter Prado, spouse. Code status: Full code. Smoking packs per day: 1
[2021-10-09 10:52] LABS: Troponin I < 0.012 ng/mL (0.000-0.034)
--- NOTE | 2021-10-09 11:28 | PC.NURSE ---
Ordered meal tray for patient
[2021-10-09 12:21] LABS: Glucose Point of Care 118 mg/dl (65-105)
--- NOTE | 2021-10-09 14:03 | ADMGEN ---
This patient, Tawana Prado, was admitted to IMU Room 210-01 on 10/09/21 at 1340. Patient/family oriented to hospital policies and general routines including ID bracelet, bed and alarms, visiting hours, pain management, procedures, bathroom and other care routines, personal items, smoking policy, room service/diet, and visiting hours. Information on how to activate the Rapid Response Team has been discussed. Patient/Family are encouraged to report perceived risks to care and to ask questions if they do not understand what they are told or what they should do.
--- NOTE | 2021-10-09 14:23 | PM.IMHP ---
H&P: HPI History of Present Illness Date/Time: Patient was placed observation status for expected length of stay less than 23 hours for management, will plan to re-evaluate tomorrow for improvement. 10/09/21 14:23 Chief Complaint: Chest pain Narrative: Ms. Prado is a 70-year-old female who presented to the emergency room with complaints of chest discomfort. Patient is end-stage renal disease on hemodialysis Saturday, Saturday, and Saturday and was at dialysis for approximately 40 minutes today when she began having midsternal chest discomfort. Patient states that she did feel short of breath and had some nausea vomiting associated with this chest discomfort. Patient denied any diaphoresis. Patient states that she was unable to finish her hemodialysis treatment and was sent to emergency room via EMS. Patient states she is chest pain-free at this time. Patient states that nothing made the chest pain worse such as deep breathing or movement. Patient states that nothing made the chest pain better, although she did not try any medical regimens. Patient does have a significant history for coronary artery disease. Patient follows with Cardiology and [facility] Dr. Vu Blackwood and states the last time she saw Dr. Blackwood was in June and she was told everything was within normal limits and to continue to follow the routine basis. Patient has a known history of coronary artery disease status post coronary bypass grafting, COPD, diabetes mellitus, peripheral vascular disease status post bilateral BKA, amputation of 4th and 5th digit on left hand secondary to vascular problems, and end-stage renal disease on hemodialysis Saturday, Saturday, and Saturday. Review of Systems Review of Systems: A 12 point review of systems was completed patient all pertinent positive and negative per HPI the remainder are unremarkable. [facility] Past Medical History Medical History (Updated 10/09/21 @ 14:27 by Verito Oliveira APRN) Arterial vascular disease Chronic anemia Coronary artery disease Digital arterial occlusive disease End-stage renal disease on hemodialysis Saturday, Saturday, Saturday. 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 Hemoglobin A1c was 6.8% in February 2020. Osteomyelitis Osteomyelitis of right tibia Renal osteodystrophy Surgical History Surgical History (Updated 10/09/21 @ 14:27 by Verito Oliveira APRN) Amputation of right forefoot :Right 4th and 5th ray amputation in 04/2017. :Right foot transmetatarsal amputation with partial fasciotomy due to wet gangrene, osteomyelitis, and necrotizing fasciitis in May 2017. 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 History of below-knee amputation of both lower extremities Left viikp-gpo-rrqq amputation in 2017. Right cechd-mkg-beak amputation in 02/2020. History of carpal tunnel release History of coronary artery bypass graft History of right above knee amputation (~05/12/20) History of right below knee amputation (~02/2020) History of spinal fusion History of surgical procedure on eye proper using laser Related to diabetic retinopathy. History of vascular surgery Right lower extremity stents in March 2017. Left lower extremity stent in 2014. Family History Family History Mother Diabetes mellitus Father Lung cancer Social History Social History Social History: Surrogate decision maker: Hunter Prado, spouse. Code status: Full code. Smoking packs per day: 1 Smoking cigarettes per day: 20.0 Years smoked: 40 Smoking pack-years: 40.00 Smoking status: Current every day smoker Tobacco type: cigarettes Smoking end date: 06/03/15 Alcohol intake: never Alcohol use details: Previous social
[2021-10-09 14:29] LABS: Phosphorus 6.1 mg/dL (2.5-4.5)
[2021-10-09 14:53] LABS: Troponin I < 0.012 ng/mL (0.000-0.034)
[2021-10-09 16:41] LABS: Glucose Point of Care 95 mg/dl (65-105)
--- NOTE | 2021-10-09 16:45 | PM.CNNEP ---
Assessment and Plan Assessment and plan (1) End stage renal disease: Code(s): N18.6 - End stage renal disease Status: Chronic Assessment and Plan: only received partial dialysis treatment no critical electrolytes and volume status is stable will plan HD treatment tomorrow and eventually get her back on M/W/F dialysis schedule follow electrolytes, volume status, and clearance (2) Chest pain: Qualifiers: Chest pain type: unspecified Qualified Code(s): R07.9 - Chest pain, unspecified Code(s): R07.9 - Chest pain, unspecified Status: Acute Assessment and Plan: as noted on admission this AM follow trend of troponins follows with Dr. Cass Blackwood (3) Hypertension: Qualifiers: Hypertension type: renovascular hypertension Qualified Code(s): I15.0 - Renovascular hypertension Code(s): I10 - Essential (primary) hypertension Status: Chronic Assessment and Plan: reasonable control resume home medications may improve further following dialysis (4) Anemia: Code(s): D64.9 - Anemia, unspecified Status: Chronic Assessment and Plan: due to ESRD Epogen with HD follow H/H (5) Insulin dependent type 2 diabetes mellitus: Code(s): E11.9 - Type 2 diabetes mellitus without complications; Z79.4 - prison (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 History of Present Illness Reason for Consult Consult date: 10/09/21 Reason for consult: end stage renal disease Chief Complaint Chief complaint: Chest Pain History of Present Illness Narrative: The patient is a 70-year-old female with a past medical history as outlined below who presented to [facility] Emergency room from her outpatient dialysis unit with complaints of chest pain. The patient was receiving dialysis earlier this morning when she developed chest pain approximately 40 minutes into her dialysis treatment. Associated symptoms include some mild shortness of breath as well as nausea and vomiting. No reported diaphoresis either. Her dialysis treatment was aborted due to the a for mentioned chest pain and subsequently 911 was called and EMS transfer the patient to [facility] Emergency room for further evaluation. Workup and evaluation emergency room demonstrated the patient to be hemodynamically stable and by the time of her arrival to the ER, she was chest pain-free. Further workup and evaluation demonstrated labs consistent with her known history of end-stage renal disease and her troponins were elevated but in the context of her end-stage renal disease were not significant and were flat. Her chest x-ray did not demonstrate any type of acute pulmonary process. However, as she did not receive her complete hemodialysis treatment today in conjunction with the constellation of symptoms that led to her presentation to the ER as well as her complex medical history, she was admitted the hospital for further evaluation and therapy. Renal consultation was requested due to her end-stage renal disease. The patient normally dialyzes on a Saturday, Saturday, Saturday dialysis schedule at [facility] under the care of Dr. Clarke. She usually does reasonably well with her dialysis treatments although she has had issues /problems with dialysis access as her previous AV fistula caused steal syndrome and she currently dialyzes through a tunneled dialysis catheter. From my discussion with her outpatient dialysis unit, her compliance with dialysis is not that good and she sometimes misses quite a few treatments in a month. As mentioned above, she only received about 40 minutes of her dialysis treatment today before her dialysis treatment was aborted and she was transferred to the emergency room for further evaluation. Currently, at the time my visit, she does
[2021-10-09 20:31] LABS: Glucose Point of Care 123 mg/dl (65-105)
[2021-10-09] MEDS: ALBUTEROL SULFATE NEB 2.5 MG/0.5 ML INH 5 MG INHALATION (21:15)
[2021-10-09] MEDS: IPRATROPIUM BR 0.02% INH SOLN 0.5 MG/2.5 ML VIAL INHALATION (21:15)
[2021-10-09] MEDS: PRAVASTATIN SODIUM 20 MG TABLET 40 MG PO (22:17)
[2021-10-09] MEDS: carvediloL 25 MG TABLET PO (22:17)
[2021-10-09] MEDS: ASCORBIC ACID 500 MG TABLET PO (22:17)
[2021-10-09 22:49] LABS: SARS-CoV-2 RNA PCR Negative
[2021-10-09 23:54] LABS: Glucose Point of Care 63 mg/dl (65-105)
[2021-10-09] MEDS: DEXTROSE 50% 25 GM/50 ML SYRINGE IV PUSH (23:54)
[2021-10-10] VITALS (27 sets, daily range): BP systolic 107–184; BP diastolic 34–80; PULSE 60–88; RESP 16–20; TEMP 35.2–37.1; O2SAT 94–97
[2021-10-10 00:39] LABS: Glucose Point of Care 150 mg/dl (65-105)
[2021-10-10] MEDS: ALBUTEROL SULFATE NEB 2.5 MG/0.5 ML INH 5 MG INHALATION ×3 (02:45→14:38)
[2021-10-10] MEDS: IPRATROPIUM BR 0.02% INH SOLN 0.5 MG/2.5 ML VIAL INHALATION ×3 (02:45→14:38)
[2021-10-10 03:16] LABS: Basophils Absolute Auto 0.1 K/mm3 (0.0-0.1); Basophils Percent Auto 0.6 % (0.2-1.2); Eosinophils Absolute Auto 0.3 K/mm3 (0-0.3); Eosinophils Percent Auto 3.7 % (0-4.4); Hematocrit 27.8 % (37.0-47.0); Hemoglobin 8.4 g/dL (12.0-15.0); Immature Granulocyte Absolute 0.04 K/mm3 (0.00-0.031); Immature Granulocyte Percent A 0.5 % (0-0.5); Lymphocytes Absolute Auto 1.52 K/mm3 (0.9-3.2); Mean Corpuscular HGB Conc 30.2 g/dl (32-36); Mean Corpuscular Hemoglobin 31.7 pg (26-34); Mean Corpuscular Volume 104.9 fl (80-100); Mean Platelet Volume 11.8 fl (7.4-10.4); Monocytes Absolute Auto 0.5 K/mm3 (0.1-0.6); Monocytes Percent Auto 6.2 % (2.6-8.5); Platelet Count Result 141 k/mm3 (150-375); Red Blood Count 2.65 M/mm3 (4.2-5.4); Red Cell Distribution Width 12.4 % (11.5-14.5); White Blood Count 8.4 K/mm3 (4.5-10.0)
[2021-10-10 03:28] LABS: Alanine Aminotransferase 10 U/L (6-35); Alkaline Phosphatase 128 U/L (38-126); Anion Gap 7 mmol/L (8-16); Aspartate Amino Transferase 16 U/L (14-36); Bilirubin,Total 0.2 mg/dL (0.2-1.3); Blood Urea Nitrogen 54 mg/dL (7-17); Calcium 7.3 mg/dL (8.4-10.2); Carbon Dioxide 26 mmol/L (22-30); Chloride 107 mmol/L (98-107); Estimated CRCL calculation 10 ml/min; Estimated Glomerular Filt Rate 8; Glucose 86 mg/dL (65-110); Magnesium 2.1 mg/dL (1.6-2.3); Phosphorus 6.5 mg/dL (2.5-4.5); Potassium 4.8 mmol/L (3.4-5.0); Sodium 140 mmol/L (137-145)
--- NOTE | 2021-10-10 04:18 | PC.NURSE ---
around 0000 hr, patient was lethargic, diaphoretic, increased confusion. she did not even know who she was. all answers were inappropriate. patients blood sugar was checked and she was 63. per protocol was given d50. patient blood sugar did go up to around 150. patient orientation was better, no longer diaphoretic and was answering questions correctly.
[2021-10-10 04:19] LABS: Hepatitis B Surface Antigen Negative (Negative)
[2021-10-10 04:40] LABS: Hepatitis B Surface Anti Res Positive
--- NOTE | 2021-10-10 04:53 | PC.NURSE ---
patient is now alert and oriented x3, smiling and talking clearly.
[2021-10-10 08:59] LABS: Glucose Point of Care 80 mg/dl (65-105)
--- NOTE | 2021-10-10 09:48 | PM.PNNEP ---
Progress Note: A&P Assessment and Plan (1) End stage renal disease: Code(s): N18.6 - End stage renal disease Status: Chronic Assessment and Plan: only received partial dialysis treatment yesterday (about 40 minutes) HD treatment today and eventually get her back on M/W/F dialysis schedule follow electrolytes, volume status, and clearance (2) Chest pain: Qualifiers: Chest pain type: unspecified Qualified Code(s): R07.9 - Chest pain, unspecified Code(s): R07.9 - Chest pain, unspecified Status: Acute Assessment and Plan: as noted on admission this AM follow trend of troponins follows with Dr. Cass Blackwood (outpatient Cardiology) (3) Hypertension: Qualifiers: Hypertension type: renovascular hypertension Qualified Code(s): I15.0 - Renovascular hypertension Code(s): I10 - Essential (primary) hypertension Status: Chronic Assessment and Plan: reasonable control resume home medications may improve further following dialysis (4) Anemia: Code(s): D64.9 - Anemia, unspecified Status: Chronic Assessment and Plan: due to ESRD Epogen with HD follow H/H (5) Insulin dependent type 2 diabetes mellitus: Code(s): E11.9 - Type 2 diabetes mellitus without complications; Z79.4 - tank terminal gauger (current) use of insulin Status: Chronic Assessment and Plan: follow accuchecks glycemic control Would not be opposed to discharge following dialysis if otherwise medically stable and no further testing/intervention to be done. Will continue to follow. Subjective Date/time seen: 10/10/21 09:48 Tolerating hemodialysis treatment at the time of my visit (seen on HD at 9:30PM); no issues or events overnight or earlier this AM; no apparent distress voiced currently; no further chest pain since admission. Exam Narrative: General: WD/WN female in NAD Heart: normal S1 and S2; no rub Lungs: clear to auscultation Abdomen: soft, nontender, nondistended, positive bowel sounds Extremities: no cyanosis or clubbing; no edema; bilateral cwiyu-upf-exko amputations Skin: warm and dry Objective Data Vital Signs Vital Signs: Vital Signs Temp Pulse Resp BP Pulse Ox 10/10/21 09:45 74 155/39 H 10/10/21 09:25 65 165/34 H 10/10/21 09:05 83 183/53 H 10/10/21 08:55 37.1 C 86 16 182/53 H 10/10/21 08:40 65 18 10/10/21 08:35 96 10/10/21 08:32 60 18 10/10/21 08:00 36.2 C L 67 16 184/63 H 97 10/10/21 06:00 66 10/10/21 04:00 36.6 C 68 20 155/80 H 97 10/10/21 02:56 62 18 10/10/21 02:45 61 18 10/10/21 02:00 60 10/10/21 00:00 64 18 94 10/09/21 23:52 36.4 C 63 18 146/45 H 94 10/09/21 22:17 68 10/09/21 22:00 73 10/09/21 21:25 67 18 10/09/21 21:15 67 18 98 10/09/21 20:00 36.6 C 71 18 194/48 H 99 10/09/21 18:00 69 10/09/21 16:00 36.7 C 68 12 154/59 H 98 10/09/21 14:00 68 10/09/21 13:40 36.9 C 71 19 145/46 H 99 10/09/21 13:15 67 18 173/63 H 100 10/09/21 10:32 69 21 H 144/102 H 99 Intake/Output Intake/Output: Intake & Output 10/07/21 10/08/21 10/09/21 10/10/21 23:59 23:59 23:59 23:59 Intake Total 200 100 Output Total 300 Balance -100 100 Meds/Results Medications: Active Medications Generic Name Dose Route Start Last Admin Trade Name Freq PRN Reason Stop Dose Admin Acetaminophen 1,000 mg 10/09/21 20:43 Acetaminophen 500 Mg Tablet PO Q6H PRN Pain Albuterol 5 mg 10/09/21 14:00 10/10/21 08:32 Albuterol Sulfate Neb 2.5 Mg/0.5 Ml Inh INHALATION 5 mg Q6HRT KEMI Administration Albuterol 2 puff 10/09/21 20:43 Albuterol Sulfate (*Sp) Aerosol 1 Puff INHALATION Q6H PRN shortness of breath or wheezing Apixaban 5 mg 10/10/21 09:00 Apixaban 5 Mg Tablet PO BID [facility] Ascorbic Acid 500 mg 10/09/21 22:00
[2021-10-10] MEDS: ACETAMINOPHEN 500 MG TABLET 1000 MG PO (13:08)
[2021-10-10] MEDS: carvediloL 25 MG TABLET PO (13:10)
[2021-10-10] MEDS: LOSARTAN POTASSIUM 100 MG TABLET PO (13:11)
[2021-10-10] MEDS: ASPIRIN 81 MG CHEWABLE TABLET PO (13:11)
[2021-10-10] MEDS: GABAPENTIN 400 MG CAPSULE PO (13:11)
[2021-10-10] MEDS: ASCORBIC ACID 500 MG TABLET PO (13:12)
[2021-10-10] MEDS: APIXABAN 5 MG TABLET PO (13:12)
[2021-10-10] MEDS: SERTRALINE HCL 25 MG TABLET PO (13:12)
[2021-10-10] MEDS: FERROUS SULFATE 324 MG TABLET PO (13:13)
--- NOTE | 2021-10-10 13:35 | PM.DS ---
DS: Admitting Diagnosis Discharge Date 10/10/2021 Admitting Diagnosis chest pain DS: Discharge Diagnosis Discharge Diagnosis (1) Chest pain: Qualifiers: Chest pain type: unspecified Qualified Code(s): R07.9 - Chest pain, unspecified Code(s): R07.9 - Chest pain, unspecified Status: Acute Assessment and Plan: Patient has had 2 troponins that were negative and EKG shows normal sinus rhythm with right bundle branch block which is the same as previous EKGs. Patient follows up with cardiology elsewhere. Will attempt to obtain records. If patient can not rule out for myocardial infarction patient can follow up with her motor tune up specialist as an outpatient for any further recommendations. (2) End stage renal disease: Code(s): N18.6 - End stage renal disease Status: Chronic Assessment and Plan: Patient is a hemodialysis patient on Saturday, Saturday, and Saturday. Patient only received 40 minutes of hemodialysis prior to being transported to the emergency room. Nephrology has been consult and appreciate further recommendations. (3) Hypertension: Qualifiers: Hypertension type: renovascular hypertension Qualified Code(s): I15.0 - Renovascular hypertension Code(s): I10 - Essential (primary) hypertension Status: Chronic Assessment and Plan: Will resume patient's home medications once verified home medication list and adjust medications accordingly for optimal blood pressure control. (4) Insulin dependent type 2 diabetes mellitus: Code(s): E11.9 - Type 2 diabetes mellitus without complications; Z79.4 - correction (current) use of insulin Status: Chronic Assessment and Plan: Will have blood glucose monitoring before meals and at bedtime with sliding scale insulin available. DS: Summary Hospital Course Reason for hospitalization: Chief Complaint: Chest pain Narrative: Ms. Prado is a 70-year-old female who presented to the emergency room with complaints of chest discomfort. Patient is end-stage renal disease on hemodialysis Saturday, Saturday, and Saturday and was at dialysis for approximately 40 minutes today when she began having midsternal chest discomfort. Patient states that she did feel short of breath and had some nausea vomiting associated with this chest discomfort. Patient denied any diaphoresis. Patient states that she was unable to finish her hemodialysis treatment and was sent to emergency room via EMS. Patient states she is chest pain-free at this time. Patient states that nothing made the chest pain worse such as deep breathing or movement. Patient states that nothing made the chest pain better, although she did not try any medical regimens. Patient does have a significant history for coronary artery disease. Patient follows with Cardiology and current City Dr. Vu Blackwood and states the last time she saw Dr. Blackwood was in June and she was told everything was within normal limits and to continue to follow the routine basis. Patient has a known history of coronary artery disease status post coronary bypass grafting, COPD, diabetes mellitus, peripheral vascular disease status post bilateral BKA, amputation of 4th and 5th digit on left hand secondary to vascular problems, and end-stage renal disease on hemodialysis Saturday, Saturday, and Saturday. Hospital Course: 70-year-old female with history of diabetes and end-stage renal disease on hemodialysis presented with chest pain patient workup is negative seen by Nephrology and suspect most likely secondary to volume overload, patient is feeling better chest pain has resolved will discharge the patient today Status at Discharge Functional status at discharge: wheelchair bound Overall status at discharge: patient is back to baseline Time Spent with Patient Time attestation: Total time spent providing and/or coordinating discharge services: Patient was seen and examined at the time of the discharge Condition at di
[2021-10-10 13:41] LABS: Glucose Point of Care 130 mg/dl (65-105)
== END 2021-10-10 15:26 | disposition home or self-care (01) ==
LOC: ANHED 10:01 → ANHIMU 15:21
PROVIDERS: Internal Medicine Nephrology; Nurse Practitioner Adult Health; Admitting Provider Internal Medicine; Emergency Provider Family Medicine; PCP Internal Medicine; Visit Provider Family Medicine
DX: R07.9 Chest pain, unspecified (principal); R06.02 Shortness of breath; E11.22 Type 2 diabetes mellitus with diabetic chronic kidney disease; N18.6 End stage renal disease; Z99.2 Dependence on renal dialysis; Z89.512 Acquired absence of left leg below knee; Z89.511 Acquired absence of right leg below knee; J44.9 Chronic obstructive pulmonary disease, unspecified; E78.5 Hyperlipidemia, unspecified; F17.210 Nicotine dependence, cigarettes, uncomplicated; I25.10 Atherosclerotic heart disease of native coronary artery without angina pectoris; Z95.1 Presence of aortocoronary bypass graft; I12.0 Hypertensive chronic kidney disease with stage 5 chronic kidney disease or end stage renal disease; D64.9 Anemia, unspecified; Z20.822 Contact with and (suspected) exposure to COVID-19; Z79.4 Long term (current) use of insulin
CPT/HCPCS: 36415; 71046; 80053; 82948; 83690; 83735; 84100; 84484; 85025; 85610; 85730; 86706; 87040; 87340; 93005; 94640; 96374; 99285; A9270; C9803; G0257; G0378; J1644; J7030; U0003; U0005

== ENCOUNTER 2021-10-25 16:15 | Observation (INO) | payer MEDICARE, OTHER, SELFPAY ==
--- NOTE | ~2021-10-25 | XR_ITS ---
EXAMINATION: XR chest 1V portable DATE: 10/26/2021 07:41 INDICATION: Shortness of breath. TECHNIQUE: A single frontal view of the chest was obtained. COMPARISON: Chest 2 views 10/09/2021, CT abdomen and pelvis 10/25/2021 FINDINGS: There are interstitial opacities in the mid and lower lung zones, likely mild pulmonary dinh ma. No pleural effusion or pneumothorax. Cardiomegaly is noted. Median sternotomy wires and mediastin al surgical clips are seen, likely from prior coronary artery bypass grafting. A right internal jugul ar central venous catheter is seen with tip in the right atrium. IMPRESSION: 1. Mild pulmonary edema. 2. Cardiomegaly. Reviewed, dictated and finalized at location A.
--- NOTE | ~2021-10-25 | CT_ITS ---
EXAMINATION: CT abdomen pelvis wo con DATE: 10/25/2021 18:08 INDICATION: pancreatitis TECHNIQUE: Computed tomography (CT) of the abdomen and pelvis was performed without intravenous contr ast. Automated exposure control and iterative reconstruction technique were employed. The dose-length product was 1112.71 mGy-cm. COMPARISON: None FINDINGS: Lower thorax: Motion artifact. Bibasilar atelectasis. Liver: Granulomatous calcifications. Hepatomegaly. Nodular liver border. Biliary/Gallbladder: Cholelithiasis. No bile duct dilation. Pancreas: No mass or duct dilation. Spleen: Normal. Adrenals:No mass. Kidneys: Scattered vascular and nonobstructing punctate calculi. No renal mass. Bilateral atrophy and perinephric stranding. GI tract: No small or large bowel dilation. Normal appendix. Scattered diverticuli without diverticul itis. Mesentery/Peritoneum: Mamie hepatic, upper abdominal, and mesenteric lymphadenopathy. No free air or free fluid. Retroperitoneum: No mass. Severe abdominal arterial calcification. Pelvis: The endometrial cavity is dilated by fluid and to a maximum transverse diameter of 9.6 cm. Soft Tissues: Soft tissues and body wall unremarkable. Bones: No acute osseous finding. IMPRESSION: No CT evidence of pancreatitis. Cirrhosis. Portal hepatic, upper abdominal mesenteric adenopathy. Hyd rometra (abnormal fluid collection in the endometrial cavity) with marked uterine distention, which c an occur with infection, inflammation, or malignancy. Reviewed, dictated and finalized at location K. IMPRESSION: No CT evidence of pancreatitis. Cirrhosis. Portal hepatic, upper abdominal mese nteric adenopathy. Hydrometra (abnormal fluid collection in the endometrial cav ity) with marked uterine distention, which can occur with infection, inflammati on, or malignancy.
--- NOTE | ~2021-10-25 | US_ITS ---
EXAMINATION: US transvaginal DATE: 10/26/2021 15:02 INDICATION: Abnormal CT of the uterus. Comparison:No prior studies for comparison. TECHNIQUE: Multiple transabdominal and endovaginal sonographic images of the pelvis performed. FINDINGS: The uterus measures 12.8 x 11.4 x 8.7 cm. The endometrium contains a large amount of comple x debris of heterogeneous echotexture. The endometrial complex measures 7.6 cm. The ovaries are not visualized. There is no free fluid in the pelvis. There are no abnormal masses seen on either side. IMPRESSION: 1. Markedly thickened endometrium filled with complex debris measuring up to 7.6 cm. Differential mandy gnosis includes malignancy, infection and inflammatory process. Recommend direct clinical correlation . Reviewed, dictated and finalized at location A. IMPRESSION: 1. Markedly thickened endometrium filled with complex debris measuring up to 7. 6 cm. Differential diagnosis includes malignancy, infection and inflammatory pr ocess. Recommend direct clinical correlation.
[2021-10-25 16:36] VITALS: BP 189/66; PULSE 75; RESP 18; TEMP 37.3; O2SAT 94
[2021-10-25 17:03] LABS: Basophils Percent Auto 0.1 % (0.2-1.2); Eosinophils Absolute Auto 0.2 K/mm3 (0-0.3); Eosinophils Percent Auto 1.1 % (0-4.4); Hematocrit 30.7 % (37.0-47.0); Hemoglobin 9.3 g/dL (12.0-15.0); Immature Granulocyte Absolute 0.09 K/mm3 (0.00-0.031); Immature Granulocyte Percent A 0.6 % (0-0.5); Lymphocytes Absolute Auto 1.74 K/mm3 (0.9-3.2); Lymphocytes Percent Auto 12.3 % (18.3-44.2); Mean Corpuscular HGB Conc 30.3 g/dl (32-36); Mean Corpuscular Hemoglobin 31.3 pg (26-34); Mean Corpuscular Volume 103.4 fl (80-100); Mean Platelet Volume 11.6 fl (7.4-10.4); Monocytes Absolute Auto 0.8 K/mm3 (0.1-0.6); Monocytes Percent Auto 5.4 % (2.6-8.5); Neutrophils Absolute Auto 11.4 K/mm3 (1.3-6.7); Neutrophils Percent Auto 80.5 % (45.5-73.1); Platelet Count Result 137 k/mm3 (150-375); Red Blood Count 2.97 M/mm3 (4.2-5.4); Red Cell Distribution Width 12.9 % (11.5-14.5); White Blood Count 14.1 K/mm3 (4.5-10.0)
[2021-10-25 17:11] LABS: Alanine Aminotransferase 19 U/L (6-35); Albumin Level 3.4 g/dL (3.5-5.1); Alkaline Phosphatase 202 U/L (38-126); Anion Gap 7 mmol/L (8-16); Aspartate Amino Transferase 27 U/L (14-36); Bilirubin,Total 0.2 mg/dL (0.2-1.3); Blood Urea Nitrogen 42 mg/dL (7-17); Calcium 7.6 mg/dL (8.4-10.2); Carbon Dioxide 24 mmol/L (22-30); Chloride 105 mmol/L (98-107); Estimated Glomerular Filt Rate 10; Glucose 117 mg/dL (65-110); Lipase 1138 U/L (23-300); Potassium 4.8 mmol/L (3.4-5.0); Sodium 136 mmol/L (137-145)
[2021-10-25 17:40] LABS: Appearance Urine Slightly Cloudy (Clear); Bilirubin Urine Negative (Negative); Blood Urine 2+ (Negative); Color Urine Yellow (Yellow); Glucose Urine UA Negative (Negative); Ketones Urine Negative (Negative); Leukocyte Esterase Ur 2+ LEU/UL (Negative); Nitrate Urine Positive (Negative); Protein Urine 3+ mg/dL (Negative); Specific Grav Ur 1.025 (1.001-1.035); Urobilinogen Urine 0.2 mg/dL (<2.0)
[2021-10-25 17:44] LABS: Bacteria Urine 1+ /hpf; RBC Urine 21-50 /hpf (0-2); Squamous Epithelial Cell Urine Occasional /hpf (Few); WBC Urine >75 /hpf
[2021-10-25 17:47] LABS: Add Urine Microscopic? YES
--- NOTE | 2021-10-25 17:50 | ED.NAVMDI ---
HPI - Nausea/Vomiting/Diarrhea General Chief complaint: Nausea/Vomiting/Diarrhea <Katie Peck PA-C - Last Filed: 10/25/21 17:55> Stated complaint: V/D <Katie Peck PA-C - Last Filed: 10/25/21 17:55> Time Seen by Provider: 10/25/21 17:15 <Katie Peck PA-C - Last Filed: 10/25/21 17:55> Source: patient <BRIJESH Andrews Last Filed: 10/25/21 17:55> Mode of arrival: EMS <BRIJESH Andrews Last Filed: 10/25/21 17:55> Limitations: no limitations <BRIJESH Andrews Last Filed: 10/25/21 17:55> History of Present Illness HPI Narrative: This is a 71-year-old female that presents to the emergency department for abdominal discomfort and diarrhea. Ongoing since yesterday. She has history of ESRD is on dialysis Saturday, Saturday and Saturday. She was unable to go to dialysis today due to frequent diarrhea. Denies fever, chest pain, shortness of breath, vomiting, or hematochezia. <BRIJESH Andrews Last Filed: 10/25/21 17:55> Related Data Home medications: Home Medications Medication Instructions Recorded Confirmed apixaban 5 mg tablet (Eliquis) 5 mg PO BID 11/03/19 10/09/21 carvedilol 25 mg tablet 25 mg PO BID 11/03/19 10/09/21 insulin aspart U-100 100 unit/mL 8 unit subcut TIDWM 11/03/19 10/09/21 (3 mL) subcutaneous pen (Novolog Flexpen U-100 Insulin aspart) insulin degludec 100 unit/mL 35 unit subcut HS 11/03/19 10/09/21 subcutaneous solution (Tresiba U-100 Insulin) pravastatin 40 mg tablet 40 mg PO HS 11/03/19 10/09/21 acetaminophen 500 mg capsule 1,000 mg PO Q6H PRN Pain 02/11/20 10/09/21 ferrous sulfate 324 mg (65 mg 324 mg PO BID 02/11/20 10/09/21 iron) tablet,delayed release sertraline 25 mg tablet 25 mg PO QAM 02/11/20 10/09/21 insulin aspart U-100 100 unit/mL See Rx Instructions .Route .COMPLEX 12/28/20 10/09/21 (3 mL) subcutaneous pen (Novolog Flexpen U-100 Insulin aspart) ascorbic acid (vitamin C) 500 mg 500 mg PO Q12H 10/09/21 10/09/21 tablet gabapentin 400 mg capsule 400 mg PO TID 10/09/21 10/09/21 losartan 100 mg tablet 100 mg PO [id number] 10/09/21 10/09/21 nifedipine 30 mg tablet,extended 30 mg PO Q12H 10/09/21 10/09/21 release <Katie Peck PA-C - Last Filed: 10/25/21 17:55> Allergies/Adverse reactions: Allergies Allergy/AdvReac Type Severity Reaction Status Date / Time No Known Allergies Allergy Verified 10/09/21 07:17 <Katie Peck PA-C - Last Filed: 10/25/21 17:55> Review of Systems Review of Systems: CONSTITUTIONAL: Denies fever CARDIOVASCULAR: Denies chest pain or edema. RESPIRATORY: Denies dyspnea. GASTROINTESTINAL: Reports abdominal pain, and diarrhea. Denies nausea, or vomiting. GENITOURINARY: Denies dysuria <Katie Peck PA-C - Last Filed: 10/25/21 17:55> All systems reviewed & are unremarkable except as noted in HPI and below <Katie Peck PA-C - Last Filed: 10/25/21 17:55> [facility] Past Medical History Medical History: Medical History (Updated 10/09/21 @ 16:49 by Elio Pereira MD) Arterial vascular disease Chronic anemia Coronary artery disease Digital arterial occlusive disease End-stage renal disease on hemodialysis Saturday, Saturday, Saturday. 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 Hemoglobin A1c was 6.8% in February 2020. Osteomyelitis Osteomyelitis of right tibia Renal osteodystrophy <BRIJESH Andrews Last Filed: 10/25/21 17:55> Surgical History Surgical History: Surgical History (Updated 10/09/21 @ 14:27 by Verito Oliveira APRN) Amputation of right forefoot :Right 4th and 5th ray amputation in 04/2017. :Right foot transmetatarsal amputation with partial fasciotomy due to wet gangrene, osteomyelitis, and necrotizing fasciitis in May 2017. History of amputation of finger of left hand Ray amputation of left 4th an
--- NOTE | 2021-10-25 18:03 | PC.NURSE ---
pt to CT at this time.
--- NOTE | 2021-10-25 19:49 | PM.IMHP ---
H&P: HPI History of Present Illness Date/Time: 10/25/21 19:49 Chief Complaint: Diarrhea. Narrative: This is a 71-year-old female with past medical history significant for end-stage renal disease on hemodialysis, hypertension, hyperlipidemia, type 2 diabetes mellitus, right AKA and left BKA, peripheral arterial vascular disease, tobacco dependence, patient is a current everyday smoker. Patient has been having numerous episodes of diarrhea and a skip dialysis due to these not feeling well, patient denies any chills, rigors, fevers, any pain or burning with urination, no cough, no sputum production. Preliminary workup was significant for urinalysis with numerous WBCs present, lipase of 1000, CT of abdomen and pelvis showed an enlarged uterus, gallbladder with stones no inflammatory changes of the pancreas. Patient has been admitted for further evaluation management and treatment. Review of Systems Review of Systems: Diarrhea, generalized weakness. Constitutional: Constitutional: Denies chills, Reports fatigue, Denies fever(s), Reports lethargy and Denies night sweats Eyes: Eyes: Denies change in vision ENT: Denies dysphagia, Denies nasal congestion, Denies nasal discharge and Denies odynophagia Cardiovascular: Cardiovascular: Denies chest pain, Reports pedal edema, Denies lightheadedness, Denies radiating jaw, neck or arm pain, Denies palpitations, Denies dyspnea on exertion, Denies orthopnea and Reports other (Patient is a bilateral lower extremity amputee) Respiratory: Respiratory: Denies change in phlegm color, Denies cough, Denies excessive phlegm production and Denies dyspnea Gastrointestinal: Gastrointestinal: Denies abdominal pain, Denies dyspepsia, Denies heartburn, Reports diarrhea, Denies nausea and Denies vomiting Musculoskeletal: Musculoskeletal: Denies arthralgias and Denies joint swelling Integumentary/Breasts: Skin/Breast: Denies rash Psychiatric: Psychiatric: Reports no additional psychiatric complaints and Reports as per HPI Endocrine: Endocrine: Denies cold intolerance, Denies fatigue, Denies flushing, Denies heat intolerance, Denies polyphagia, Denies polydipsia and Denies palpitations Hematologic/Lymphatic: Hematologic/Lymphatic: Reports no additional hematologic/lymphatic complaints and Reports as per HPI Allergic/Immunologic: Allergic/Immunologic: Reports no additional allergic/immunologic complaints and Reports as per HPI [facility] Past Medical History Medical History (Updated 10/26/21 @ 04:47 by Abbe Guzmán MD) Arterial vascular disease Chronic anemia Coronary artery disease Digital arterial occlusive disease End-stage renal disease on hemodialysis Saturday, Saturday, Saturday. 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 Hemoglobin A1c was 6.8% in February 2020. Osteomyelitis Osteomyelitis of right tibia Renal osteodystrophy Surgical History Surgical History (Updated 10/09/21 @ 14:27 by Verito Oliveira APRN) Amputation of right forefoot :Right 4th and 5th ray amputation in 04/2017. :Right foot transmetatarsal amputation with partial fasciotomy due to wet gangrene, osteomyelitis, and necrotizing fasciitis in May 2017. 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 History of below-knee amputation of both lower extremities Left yqozz-cud-bcsu amputation in 2017. Right xreci-rlb-jezq amputation in 02/2020. History of carpal tunnel release History of coronary artery bypass graft History of right above knee amputation (~05/12/20) History of right below knee amputation (~02/2020) History of spinal fusion History of surgical procedure on eye proper using laser Related to diabetic retinopathy. History of vascular surgery Right lower extremity stents in March 2017. Left lower extremity stent in 2014. Family History
[2021-10-25 20:19] VITALS: BP 131/40; PULSE 74; RESP 20; TEMP 36.6; O2SAT 92; BMI 37.8
[2021-10-25 22:01] VITALS: BP 124/70; PULSE 75; RESP 20; TEMP 37.8; O2SAT 93
[2021-10-25 22:08] LABS: Glucose Point of Care 127 mg/dl (65-105)
--- NOTE | 2021-10-25 22:19 | ADMGEN ---
This patient, Tawana Prado, was admitted to [facility] Surg Room 316-02. Patient/family oriented to hospital policies and general routines including ID bracelet, bed and alarms, visiting hours, pain management, procedures, bathroom and other care routines, personal items, smoking policy, room service/diet, and visiting hours. Information on how to activate the Rapid Response Team has been discussed. Patient/Family are encouraged to report perceived risks to care and to ask questions if they do not understand what they are told or what they should do.
[2021-10-26] VITALS (22 sets, daily range): BP systolic 122–176; BP diastolic 43–67; PULSE 64–98; RESP 16–17; TEMP 36.2–37; O2SAT 91–97
[2021-10-26 07:51] LABS: Glucose Point of Care 87 mg/dl (65-105)
--- NOTE | 2021-10-26 08:02 | PM.IMHP ---
H&P: HPI History of Present Illness Date/Time: 10/26/21 08:02 Chief Complaint: Diarrhea Narrative: 71-year-old female who lies asked to see secondary to enlarged uterus. She has long history of multiple medical problems including end-stage renal disease and multiple amputations secondary to uncontrolled diabetes. She had a CT scan enlarged uterus with fluid inside was seen. She is presently being treated with antibiotics for presumed infection. Ultrasound is pending at this point. [facility] Past Medical History Medical History Arterial vascular disease Chronic anemia Coronary artery disease Digital arterial occlusive disease End-stage renal disease on hemodialysis Saturday, Saturday, Saturday. 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 Hemoglobin A1c was 6.8% in February 2020. Osteomyelitis Osteomyelitis of right tibia Renal osteodystrophy Surgical History Surgical History Amputation of right forefoot :Right 4th and 5th ray amputation in 04/2017. :Right foot transmetatarsal amputation with partial fasciotomy due to wet gangrene, osteomyelitis, and necrotizing fasciitis in May 2017. 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 History of below-knee amputation of both lower extremities Left hrulk-hef-ldib amputation in 2017. Right rlipw-lfi-ezjo amputation in 02/2020. History of carpal tunnel release History of coronary artery bypass graft History of right above knee amputation (~05/12/20) History of right below knee amputation (~02/2020) History of spinal fusion History of surgical procedure on eye proper using laser Related to diabetic retinopathy. History of vascular surgery Right lower extremity stents in March 2017. Left lower extremity stent in 2014. Family History Family History Mother Diabetes mellitus Father Lung cancer Social History Social History Social History: Surrogate decision maker: Hunteryocasta Prado, spouse. Code status: Full code. Smoking packs per day: 0.3 Smoking cigarettes per day: 6.0 Years smoked: 40 Smoking pack-years: 12.00 Smoking status: Current every day smoker Tobacco type: cigarettes Smoking end date: 06/03/15 Alcohol intake: former Alcohol use details: Previous social drinker. Substance use: never Substance use type: does not use Additional living arrangements comments: Lives with her in [place]. Gender identity (if verbalized by the patient): Female Spiritual care concerns: No Meds Home Medications and Allergies Home Medications Medication Instructions Recorded Confirmed Type apixaban 5 mg tablet (Eliquis) 5 mg PO BID 11/03/19 10/25/21 History carvedilol 25 mg tablet 25 mg PO BID 11/03/19 10/25/21 History insulin aspart U-100 100 unit/mL 8 unit subcut TIDWM 11/03/19 10/25/21 History (3 mL) subcutaneous pen (Novolog Flexpen U-100 Insulin aspart) insulin degludec 100 unit/mL 35 unit subcut HS 11/03/19 10/25/21 History subcutaneous solution (Tresiba U-100 Insulin) pravastatin 40 mg tablet 40 mg PO HS 11/03/19 10/25/21 History acetaminophen 500 mg capsule 1,000 mg PO Q6H PRN Pain 02/11/20 10/25/21 History ferrous sulfate 324 mg (65 mg 324 mg PO BID 02/11/20 10/25/21 History iron) tablet,delayed release sertraline 25 mg tablet 25 mg PO QAM 02/11/20 10/25/21 History albuterol sulfate 90 mcg/actuation 2 puff inhalation QID PRN 09/15/21 10/25/21 Rx aerosol inhaler shortness of breath or wheezing #6.7 grams ascorbic acid (vitamin C) 500 mg 500 mg PO Q12H 10/09/21 10/25/21 History tablet gabapentin 400 mg
[2021-10-26] MEDS: ASPIRIN 81 MG CHEWABLE TABLET PO (08:26)
[2021-10-26] MEDS: GABAPENTIN 400 MG CAPSULE PO ×3 (08:26→16:09)
[2021-10-26] MEDS: FERROUS SULFATE 324 MG TABLET PO ×2 (08:27→16:09)
[2021-10-26] MEDS: APIXABAN 5 MG TABLET PO ×2 (08:27→16:09)
[2021-10-26] MEDS: LOSARTAN POTASSIUM 100 MG TABLET PO (08:27)
[2021-10-26] MEDS: ASCORBIC ACID 500 MG TABLET PO ×2 (08:27→20:21)
[2021-10-26] MEDS: NIFEdipine 30 MG TAB.ER.24 PO ×2 (08:27→20:23)
[2021-10-26] MEDS: carvediloL 25 MG TABLET PO ×2 (08:27→20:21)
[2021-10-26] MEDS: SERTRALINE HCL 25 MG TABLET PO (08:27)
--- NOTE | 2021-10-26 09:30 | PM.IMPN ---
Progress Note: A&P Assessment and Plan (1) Urinary tract infection: Code(s): N39.0 - Urinary tract infection, site not specified Status: Acute Assessment and Plan: UA Positive Nitrates, 2+ Leukocyte esterase, >75 WBC 1+ Bacteria Continue Zosyn Trend urine output Cultures in progress Adjust therapy to culture results WBC 14.4, trend (2) End-stage renal disease on hemodialysis: Code(s): N18.6 - End stage renal disease; Z99.2 - Dependence on renal dialysis Status: Acute Assessment and Plan: Patient dialyzes Saturday and Saturday Nephrology consult to help manage dialysis Current BUN/Cr 42/4.20 Trend urine output Daily weights (3) Elevated lipase: Code(s): R74.8 - Abnormal levels of other serum enzymes Status: Acute Assessment and Plan: CT abdomen and pelvis did not show pancreas inflammation Does report nausea Lipases is 1138 Trend labs Clear liquid diet (4) Diarrhea: Code(s): R19.7 - Diarrhea, unspecified Status: Acute Assessment and Plan: Secondary to underlying disease seems to be resolved at this time Continue to monitor Supportive care (5) Enlarged uterus: Code(s): N85.2 - Hypertrophy of uterus Status: Acute Assessment and Plan: Concerning findings for enlarged uterus on CT of abdomen and pelvis Marine Engine Mechanic consult thank you for your help Transvaginal ultrasound pending (6) Insulin dependent type 2 diabetes mellitus: Code(s): E11.9 - Type 2 diabetes mellitus without complications; Z79.4 - watermelon inspector (current) use of insulin Status: Chronic Assessment and Plan: Current Glucose 117 Continue home meds Continue to monitor Accu-Cheks AC and HS Trend glucose Adjust therapy as indicated (7) Chronic anemia: Code(s): D64.9 - Anemia, unspecified Status: Acute Assessment and Plan: H/H 9.3/30.7 Anemia of chronic diseases, and ESRD Continue to trend H/H Transfuse as indicated Procrit in the outpatient (8) Coronary artery disease: Code(s): I25.10 - Atherosclerotic heart disease of [place] coronary artery without angina pectoris Status: Acute Assessment and Plan: Chest pain-free Continue home meds (9) Obesity: Code(s): E66.9 - Obesity, unspecified Status: Acute Assessment and Plan: Lifestyle and diet modifications Carb consistent diet 1800 calorie Ethologist consult Time Spent With Patient Time with patient: 25 - 35 minutes Subjective Date/time seen: 10/26/21 0930 Patient seems to be very drowsy today. She states that she feels funny. She states she is nauseated however her diarrhea has stopped. She has been he abdominal pain. She denies any chest pain, shortness a breath, vomiting, weakness or fatigue. 10/25/21? 19:49 This is a 71-year-old female with past medical history significant for end-stage renal disease on hemodialysis, hypertension, hyperlipidemia, type 2 diabetes mellitus, right AKA and left BKA, peripheral arterial vascular disease, tobacco dependence, patient is a current everyday smoker. Patient has been having numerous episodes of diarrhea and a skip dialysis due to these not feeling well, patient denies any chills, rigors, fevers, any pain or burning with urination, no cough, no sputum production.? Preliminary workup was significant for urinalysis with numerous WBCs present, lipase of 1000, CT of abdomen and pelvis showed an enlarged uterus, gallbladder with stones no inflammatory changes of the pancreas.? Patient has been admitted for further evaluation management and treatment. Review of Systems Review of Systems: All systems reviewed & are unremarkable except as noted in HPI and below Exam Const: General: comfortable, no acute distress, well developed, alert, awake, ill appearing chronically and tired appea
--- NOTE | 2021-10-26 09:30 | P.PNIM_ITS ---
Progress Note: A&P Assessment and Plan (1) Urinary tract infection: Code(s): N39.0 - Urinary tract infection, site not specified Status: Acute Assessment and Plan: UA Positive Nitrates, 2+ Leukocyte esterase, >75 WBC 1+ Bacteria Continue Zosyn Trend urine output Cultures in progress Adjust therapy to culture results WBC 14.4, trend (2) End-stage renal disease on hemodialysis: Code(s): N18.6 - End stage renal disease; Z99.2 - Dependence on renal dialysis Status: Acute Assessment and Plan: * Patient dialyzes Saturday and Saturday * Nephrology consult to help manage dialysis * Current BUN/Cr 42/4.20 * Trend urine output * Daily weights (3) Elevated lipase: Code(s): R74.8 - Abnormal levels of other serum enzymes Status: Acute Assessment and Plan: * CT abdomen and pelvis did not show pancreas inflammation * Does report nausea * Lipases is 1138 * Trend labs * Clear liquid diet (4) Diarrhea: Code(s): R19.7 - Diarrhea, unspecified Status: Acute Assessment and Plan: * Secondary to underlying disease * seems to be resolved at this time * Continue to monitor * Supportive care (5) Enlarged uterus: Code(s): N85.2 - Hypertrophy of uterus Status: Acute Assessment and Plan: * Concerning findings for enlarged uterus on CT of abdomen and pelvis * Oven Attendant consult thank you for your help * Transvaginal ultrasound pending (6) Insulin dependent type 2 diabetes mellitus: Code(s): E11.9 - Type 2 diabetes mellitus without complications; Z79.4 - drapery sewer hand (current) use of insulin Status: Chronic Assessment and Plan: * Current Glucose 117 * Continue home meds * Continue to monitor * Accu-Cheks AC and HS * Trend glucose * Adjust therapy as indicated (7) Chronic anemia: Code(s): D64.9 - Anemia, unspecified Status: Acute Assessment and Plan: * H/H 9.3/30.7 * Anemia of chronic diseases, and ESRD * Continue to trend H/H * Transfuse as indicated * Procrit in the outpatient (8) Coronary artery disease: Code(s): I25.10 - Atherosclerotic heart disease of [place] coronary artery without angina pectoris Status: Acute Assessment and Plan: * Chest pain-free * Continue home meds (9) Obesity: Code(s): E66.9 - Obesity, unspecified Status: Acute Assessment and Plan: * Lifestyle and diet modifications * Carb consistent diet 1800 calorie * Comic Book Designer consult Time Spent With Patient Time with patient: 25 - 35 minutes Subjective Date/time seen: 10/26/21 0930 Patient seems to be very drowsy today. She states that she feels funny. She states she is nauseated however her diarrhea has stopped. She has been he abdominal pain. She denies any chest pain, shortness a breath, vomiting, weakness or fatigue. 10/25/21? 19:49 This is a 71-year-old female with past medical history significant for end-stage renal disease on hemodialysis, hypertension, hyperlipidemia, type 2 diabetes mellitus, right AKA and left BKA, peripheral arterial vascular disease, tobacco dependence, patient is a current everyday smoker. Patient has been having numerous episodes of diarrhea and a skip dialysis due to these not feeling well, patient denies any chills, r
--- NOTE | 2021-10-26 10:45 | PC.NURSE ---
family reported pt has not have dialysis since Saturday, family inquiring about pt going to dialysis today. Called Md Pereira, Md Pereira consulted for pt yesterday. Md Pereira to see pt today.
[2021-10-26 11:47] LABS: Glucose Point of Care 116 mg/dl (65-105)
--- NOTE | 2021-10-26 14:09 | PC.NURSE ---
pt to have dialysis later this afternoon.
--- NOTE | 2021-10-26 15:33 | PM.CNNEP ---
Assessment and Plan Assessment and plan (1) End stage renal disease: Code(s): N18.6 - End stage renal disease Status: Chronic Assessment and Plan: short HD treatment today and then full treatment tomorrow to resume M/W/F dialysis schedule follow electrolytes, volume status, and clearance (2) Urinary tract infection: Code(s): N39.0 - Urinary tract infection, site not specified Status: Acute Assessment and Plan: as evidenced by admission urinalysis on antibiotics follow culture results (3) Enlarged uterus: Code(s): N85.2 - Hypertrophy of uterus Status: Acute Assessment and Plan: as noted by admission imaging Window Repairer consultation/recommendations noted (4) Hypertension: Qualifiers: Hypertension type: renovascular hypertension Qualified Code(s): I15.0 - Renovascular hypertension Code(s): I10 - Essential (primary) hypertension Status: Chronic Assessment and Plan: reasonable control resume home medications may improve further following dialysis (5) Anemia: Code(s): D64.9 - Anemia, unspecified Status: Chronic Assessment and Plan: due to ESRD Epogen with HD follow H/H (6) Insulin dependent type 2 diabetes mellitus: Code(s): E11.9 - Type 2 diabetes mellitus without complications; Z79.4 - intermediate frame tender (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 History of Present Illness Reason for Consult Consult date: 10/26/21 Reason for consult: end stage renal disease Chief Complaint Chief complaint: UTI, pancreatitis History of Present Illness Narrative: 71-year-old female with past medical history significant for end-stage renal disease on hemodialysis, hypertension, hyperlipidemia, type 2 diabetes mellitus, right AKA and left BKA, peripheral arterial vascular disease, tobacco dependence, patient is a current everyday smoker. Patient has been having numerous episodes of diarrhea and a skip dialysis due to these not feeling well, patient denies any chills, rigors, fevers, any pain or burning with urination, no cough, no sputum production.? Preliminary workup was significant for urinalysis with numerous WBCs present, lipase of 1000, CT of abdomen and pelvis showed an enlarged uterus, gallbladder with stones no inflammatory changes of the pancreas.? Patient has been admitted for further evaluation management and treatment. The patient is a 70-year-old female with a past medical history as outlined below who presented to [facility] Emergency room abdominal pain and diarrhea. The patient states that she has had numerous episodes of diarrhea and this is the reason why she did not go to dialysis on the day of presentation to the emergency room. She gave no specific complaints of chills, fevers, burning with urination, cough, shortness of breath or nausea /vomiting. Workup and evaluation emergency room demonstrated the patient to be hemodynamically stable. Routine blood test demonstrated elevated white blood cell count, elevated lipase, and electrolytes/chemistry consistent with her known history of end-stage renal disease. Given the elevated lipase, she underwent a CT scan of the abdomen pelvis which did not demonstrate any evidence of pancreatitis but did show liver cirrhosis. portal hepatic, upper abdominal mesenteric adenopathy and hydrometra with marked uterine distention. Her urinalysis was also highly suggestive of urinary tract infection as well. Given these findings in conjunction with a constellation of symptoms that led to her presentation to the emergency room, appropriate cultures were obtained, she was started on IV antibiotic therapy, and admitted to the hospital for further evaluation and therapy. Since her admission, she has been seen by Gynecology with regard to the a for mentioned CT sc
[2021-10-26 16:42] LABS: Glucose Point of Care 111 mg/dl (65-105)
--- NOTE | 2021-10-26 17:56 | PC.NURSE ---
all insulin was held this shift, DEPUTY JAILER Venu Huang informed, pt currently on clear liquid diet bs 80-110's.
--- NOTE | 2021-10-26 18:51 | PC.NURSE ---
pt to received short dialysis tx today 10/26/21, and longer tx tomorrow to resume MWF schedule per Md Pereira.
[2021-10-26] MEDS: PRAVASTATIN SODIUM 20 MG TABLET 40 MG PO (20:23)
[2021-10-26 21:04] LABS: Glucose Point of Care 118 mg/dl (65-105)
--- NOTE | 2021-10-26 22:20 | PC.NURSE ---
1950 Pt return to room from dialysis, no acute distress noted.
[2021-10-27] VITALS (18 sets, daily range): BP systolic 103–152; BP diastolic 37–57; PULSE 66–80; RESP 16–18; TEMP 35.7–37.5; O2SAT 95
[2021-10-27 07:29] LABS: Basophils Percent Auto 0.2 % (0.2-1.2); Eosinophils Absolute Auto 0.2 K/mm3 (0-0.3); Eosinophils Percent Auto 1.1 % (0-4.4); Hematocrit 28.4 % (37.0-47.0); Hemoglobin 8.8 g/dL (12.0-15.0); Immature Granulocyte Absolute 0.08 K/mm3 (0.00-0.031); Immature Granulocyte Percent A 0.6 % (0-0.5); Lymphocytes Absolute Auto 0.97 K/mm3 (0.9-3.2); Lymphocytes Percent Auto 7.2 % (18.3-44.2); Mean Corpuscular Hemoglobin 31.2 pg (26-34); Mean Corpuscular Volume 100.7 fl (80-100); Mean Platelet Volume 12.1 fl (7.4-10.4); Monocytes Absolute Auto 0.7 K/mm3 (0.1-0.6); Monocytes Percent Auto 4.9 % (2.6-8.5); Neutrophils Absolute Auto 11.5 K/mm3 (1.3-6.7); Platelet Count Result 144 k/mm3 (150-375); Red Blood Count 2.82 M/mm3 (4.2-5.4); Red Cell Distribution Width 12.7 % (11.5-14.5); White Blood Count 13.4 K/mm3 (4.5-10.0)
[2021-10-27 07:39] LABS: Glucose Point of Care 119 mg/dl (65-105)
[2021-10-27 07:40] LABS: Alanine Aminotransferase 12 U/L (6-35); Albumin Level 2.9 g/dL (3.5-5.1); Alkaline Phosphatase 135 U/L (38-126); Anion Gap 4 mmol/L (8-16); Aspartate Amino Transferase 17 U/L (14-36); Bilirubin,Total 0.5 mg/dL (0.2-1.3); Blood Urea Nitrogen 25 mg/dL (7-17); Calcium 7.3 mg/dL (8.4-10.2); Carbon Dioxide 30 mmol/L (22-30); Chloride 102 mmol/L (98-107); Estimated Glomerular Filt Rate 14; Glucose 118 mg/dL (65-110); Magnesium 1.9 mg/dL (1.6-2.3); Potassium 4.2 mmol/L (3.4-5.0); Sodium 136 mmol/L (137-145)
[2021-10-27] MEDS: ASPIRIN 81 MG CHEWABLE TABLET PO (08:15)
[2021-10-27] MEDS: FERROUS SULFATE 324 MG TABLET PO ×2 (08:15→16:10)
[2021-10-27] MEDS: GABAPENTIN 400 MG CAPSULE PO ×3 (08:16→16:10)
[2021-10-27] MEDS: SERTRALINE HCL 25 MG TABLET PO (08:16)
[2021-10-27] MEDS: ASCORBIC ACID 500 MG TABLET PO (08:16)
--- NOTE | 2021-10-27 10:00 | PCPTNOTE ---
The patient treatment was not able to be completed due to patient out of room for dialysis. Will plan to continue treatment per plan of care.
--- NOTE | 2021-10-27 10:20 | PM.PNNEP ---
Progress Note: A&P Assessment and Plan (1) End stage renal disease: Code(s): N18.6 - End stage renal disease Status: Chronic Assessment and Plan: HD today and continue M/W/F dialysis outpatient schedule follow electrolytes, volume status, and clearance (2) Urinary tract infection: Code(s): N39.0 - Urinary tract infection, site not specified Status: Acute Assessment and Plan: as evidenced by admission urinalysis on antibiotics follow culture results (3) Enlarged uterus: Code(s): N85.2 - Hypertrophy of uterus Status: Acute Assessment and Plan: as noted by admission imaging Seed Analyst consultation/recommendations noted (4) Hypertension: Qualifiers: Hypertension type: renovascular hypertension Qualified Code(s): I15.0 - Renovascular hypertension Code(s): I10 - Essential (primary) hypertension Status: Chronic Assessment and Plan: reasonable control resume home medications may improve further following dialysis (5) Anemia: Code(s): D64.9 - Anemia, unspecified Status: Chronic Assessment and Plan: due to ESRD Epogen with HD follow H/H (6) Insulin dependent type 2 diabetes mellitus: Code(s): E11.9 - Type 2 diabetes mellitus without complications; Z79.4 - equipment operator intermodal yard (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 Subjective Date/time seen: 10/27/21 10:20 Tolerating dialysis treatment at the time of my visit (seen on HD at ~ 10:00AM); tolerated short HD treatment yesterday afternoon/eveninng as well; no issues/events overnight or earlier this AM. Exam Narrative: General: WD/WN female in NAD Heart: normal S1 and S2; no rub Lungs: clear to auscultation Abdomen: soft, nontender, nondistended, positive bowel sounds Extremities: no cyanosis or clubbing; no edema; bilateral ibdor-ect-fqwi amputations Skin: warm and dry Objective Data Vital Signs Vital Signs: Vital Signs Temp Pulse Resp BP Pulse Ox O2 Del Method 10/27/21 09:34 73 116/49 L 10/27/21 09:15 73 112/44 L 10/27/21 08:56 74 130/51 L 10/27/21 08:45 37.4 C 75 16 147/57 H 10/27/21 08:25 Room Air 10/27/21 05:51 36.2 C L 73 18 130/37 L 95 10/26/21 20:00 Room Air 10/26/21 21:29 36.3 C L 68 16 122/47 L 93 10/26/21 21:06 97 Room Air 10/26/21 20:21 98 10/26/21 18:30 64 145/61 H 10/26/21 18:00 64 164/60 H 10/26/21 17:45 64 150/58 H 10/26/21 17:30 65 148/61 H 10/26/21 17:15 65 167/66 H 10/26/21 19:40 36.7 C 66 16 163/53 H 10/26/21 19:30 65 136/62 10/26/21 19:15 67 138/66 10/26/21 19:00 66 168/60 H 10/26/21 18:45 64 172/64 H 10/26/21 18:15 66 176/59 H 10/26/21 16:59 36.9 C 68 16 166/65 H 10/26/21 17:02 67 149/67 H 10/26/21 14:34 97 Room Air 10/26/21 14:00 36.2 C L 65 17 162/43 H 94 10/26/21 11:01 Room Air Intake/Output Intake/Output: Intake & Output 10/24/21 10/25/21 10/26/21 10/27/21 23:59 23:59 23:59 23:59 Intake Total 50 1630 390 Output Total 1900 50 Balance 50 -270 340 Meds/Results Medications: Active Medications Generic Name Dose Route Start Last Admin Trade Name Freq PRN Reason Stop Dose Admin Acetaminophen 1,000 mg 10/26/21 04:09 Acetaminophen 500 Mg Tablet PO Q6H PRN Pain Albuterol 2 puff 10/26/21 04:09 Albuterol Sulfate (*Sp) Aerosol 1 Puff INHALATION QIDRT PRN shortness of breath or wheezin Apixaban 5 mg 10/26/21 09:00 10/26/21 16:09 Apixaban 5 Mg Tablet PO 5 mg BID KEMI Administration Ascorbic Acid 500 mg 10/26/21 09:00 10/27/21 08:16 Ascorbic Acid 500 Mg Tablet PO 500 mg Q12HR KEMI Administration Aspirin 81 mg 10/26/21 08:00 10/27/21 08:15 Aspirin 81 Mg Chew[place]
--- NOTE | 2021-10-27 10:30 | P.DS_ITS ---
DS: Admitting Diagnosis Discharge Date 10/27/21 1045 Admitting Diagnosis UTI/Uterine enlargement DS: Discharge Diagnosis Discharge Diagnosis (1) Urinary tract infection: Code(s): N39.0 - Urinary tract infection, site not specified Status: Acute Assessment and Plan: UA Positive Nitrates, 2+ Leukocyte esterase, >75 WBC 1+ Bacteria Continue Zosyn Trend urine output Cultures found mixed yris indicating contamination Adjust therapy to culture results WBC 13.8 today (2) End-stage renal disease on hemodialysis: Code(s): N18.6 - End stage renal disease; Z99.2 - Dependence on renal dialysis Status: Acute Assessment and Plan: * Patient dialyzes Saturday and Saturday * Nephrology consult to help manage dialysis * Current BUN/Cr 25/3.30 * Trend urine output * Daily weights (3) Elevated lipase: Code(s): R74.8 - Abnormal levels of other serum enzymes Status: Acute Assessment and Plan: * CT abdomen and pelvis did not show pancreas inflammation * Does report nausea * Lipases is * Trend labs * advanced diet to renal (4) Diarrhea: Code(s): R19.7 - Diarrhea, unspecified Status: Acute Assessment and Plan: * Secondary to underlying disease * seems to be resolved at this time * Continue to monitor * Supportive care (5) Enlarged uterus: Code(s): N85.2 - Hypertrophy of uterus Status: Acute Assessment and Plan: * Concerning findings for enlarged uterus on CT of abdomen and pelvis * Regional Truck Driver consult thank you for your help * Transvaginal ultrasound Markedly thickened endometrium filled with complex debris measuring up to 7.6 cm. Differential diagnosis includes malignancy, infection and inflammatory process. Recommend direct clinical correlation. * Patient is being scheduled for an outpatient D&C (6) Insulin dependent type 2 diabetes mellitus: Code(s): E11.9 - Type 2 diabetes mellitus without complications; Z79.4 - custodial (current) use of insulin Status: Chronic Assessment and Plan: * Current Glucose 119 * Continue home meds * Continue to monitor * Accu-Cheks AC and HS * Trend glucose * Adjust therapy as indicated (7) Chronic anemia: Code(s): D64.9 - Anemia, unspecified Status: Acute Assessment and Plan: * H/H 9.5/30.5 * Anemia of chronic diseases, and ESRD * Continue to trend H/H * Transfuse as indicated * Procrit in the outpatient (8) Coronary artery disease: Code(s): I25.10 - Atherosclerotic heart disease of [place] coronary artery without angina pectoris Status: Acute Assessment and Plan: * Chest pain-free * Continue home meds (9) Obesity: Code(s): E66.9 - Obesity, unspecified Status: Acute Assessment and Plan: * Lifestyle and diet modifications * Carb consistent diet 1800 calorie * Investment Manager consult DS: Summary Hospital Course Hospital Course: Patient is 71-year-old female with a past medical history of end-stage renal disease on hemodialysis, hypertension, hyperlipidemia, type 2 diabetes, right AKA and left BKA that is here for diarrhea. UA did show possibilities of a UTI with positive nitrates, 2+ leukocyte esterase, greater than 75 white blood cell count, 1+ bacteria. Patient was started on IV Zosyn a
--- NOTE | 2021-10-27 10:30 | PM.DS ---
DS: Admitting Diagnosis Discharge Date 10/27/21 1045 Admitting Diagnosis UTI/Uterine enlargement DS: Discharge Diagnosis Discharge Diagnosis (1) Urinary tract infection: Code(s): N39.0 - Urinary tract infection, site not specified Status: Acute Assessment and Plan: UA Positive Nitrates, 2+ Leukocyte esterase, >75 WBC 1+ Bacteria Continue Zosyn Trend urine output Cultures found mixed yris indicating contamination Adjust therapy to culture results WBC 13.8 today (2) End-stage renal disease on hemodialysis: Code(s): N18.6 - End stage renal disease; Z99.2 - Dependence on renal dialysis Status: Acute Assessment and Plan: Patient dialyzes Saturday and Saturday Nephrology consult to help manage dialysis Current BUN/Cr 25/3.30 Trend urine output Daily weights (3) Elevated lipase: Code(s): R74.8 - Abnormal levels of other serum enzymes Status: Acute Assessment and Plan: CT abdomen and pelvis did not show pancreas inflammation Does report nausea Lipases is Trend labs advanced diet to renal (4) Diarrhea: Code(s): R19.7 - Diarrhea, unspecified Status: Acute Assessment and Plan: Secondary to underlying disease seems to be resolved at this time Continue to monitor Supportive care (5) Enlarged uterus: Code(s): N85.2 - Hypertrophy of uterus Status: Acute Assessment and Plan: Concerning findings for enlarged uterus on CT of abdomen and pelvis Underwear Welter consult thank you for your help Transvaginal ultrasound Markedly thickened endometrium filled with complex debris measuring up to 7.6 cm. Differential diagnosis includes malignancy, infection and inflammatory process. Recommend direct clinical correlation. Patient is being scheduled for an outpatient D&C (6) Insulin dependent type 2 diabetes mellitus: Code(s): E11.9 - Type 2 diabetes mellitus without complications; Z79.4 - emt intermediate (current) use of insulin Status: Chronic Assessment and Plan: Current Glucose 119 Continue home meds Continue to monitor Accu-Cheks AC and HS Trend glucose Adjust therapy as indicated (7) Chronic anemia: Code(s): D64.9 - Anemia, unspecified Status: Acute Assessment and Plan: H/H 9.5/30.5 Anemia of chronic diseases, and ESRD Continue to trend H/H Transfuse as indicated Procrit in the outpatient (8) Coronary artery disease: Code(s): I25.10 - Atherosclerotic heart disease of [place] coronary artery without angina pectoris Status: Acute Assessment and Plan: Chest pain-free Continue home meds (9) Obesity: Code(s): E66.9 - Obesity, unspecified Status: Acute Assessment and Plan: Lifestyle and diet modifications Carb consistent diet 1800 calorie Manager Intranet consult DS: Summary Hospital Course Hospital Course: Patient is 71-year-old female with a past medical history of end-stage renal disease on hemodialysis, hypertension, hyperlipidemia, type 2 diabetes, right AKA and left BKA that is here for diarrhea. UA did show possibilities of a UTI with positive nitrates, 2+ leukocyte esterase, greater than 75 white blood cell count, 1+ bacteria. Patient was started on IV Zosyn and white blood cell count was also noted to be elevated. White blood cell count has been trending down it is currently 13.4. Patient did have an abdominal CT which did show enlarged uterus. bottle washer machine was consulted and a transverse ultrasound was performed which did show debris with possible infection versus malignancy. OB is recommending an outpatient D&C for further investigation. Patient was also noted to have a remarkably elevated lipase with no signs of pancreatitis on the CT. Lipase has been trending down and is currently 71 and she is also tolerating a diet. Patient feels okay today and is ready to
[2021-10-27] MEDS: EPOETIN ALFA-EPBX 10,000 UNITS/ML VIAL 10000 UNITS IV PUSH (12:09)
[2021-10-27] MEDS: SODIUM CHLORIDE 0.9% IV 1,000 ML 999 ML IV CONT (12:10)
[2021-10-27 12:25] LABS: Glucose Point of Care 122 mg/dl (65-105)
[2021-10-27] MEDS: APIXABAN 5 MG TABLET PO ×2 (13:51→16:10)
--- NOTE | 2021-10-27 13:54 | PCDIET ---
RDN consulted for diet modification. See nutritional teaching for further information.
--- NOTE | 2021-10-27 14:00 | P.PNIM_ITS ---
Progress Note: A&P Assessment and Plan (1) Urinary tract infection: Code(s): N39.0 - Urinary tract infection, site not specified Status: Acute Assessment and Plan: UA Positive Nitrates, 2+ Leukocyte esterase, >75 WBC 1+ Bacteria Continue Zosyn Trend urine output Cultures found mixed yris indicating contamination Adjust therapy to culture results WBC 11.7 today (2) End-stage renal disease on hemodialysis: Code(s): N18.6 - End stage renal disease; Z99.2 - Dependence on renal dialysis Status: Acute Assessment and Plan: * Patient dialyzes Saturday and Saturday * Nephrology consult to help manage dialysis * Current BUN/Cr 25/3.30 * Trend urine output * Daily weights (3) Elevated lipase: Code(s): R74.8 - Abnormal levels of other serum enzymes Status: Acute Assessment and Plan: * CT abdomen and pelvis did not show pancreas inflammation * Does report nausea * Lipases is * Trend labs * advanced diet to renal (4) Diarrhea: Code(s): R19.7 - Diarrhea, unspecified Status: Acute Assessment and Plan: * Secondary to underlying disease * seems to be resolved at this time * Continue to monitor * Supportive care (5) Enlarged uterus: Code(s): N85.2 - Hypertrophy of uterus Status: Acute Assessment and Plan: * Concerning findings for enlarged uterus on CT of abdomen and pelvis * Striker Out consult thank you for your help * Transvaginal ultrasound Markedly thickened endometrium filled with complex debris measuring up to 7.6 cm. Differential diagnosis includes malignancy, infection and inflammatory process. Recommend direct clinical correlation. * Patient is being scheduled for an outpatient D&C (6) Insulin dependent type 2 diabetes mellitus: Code(s): E11.9 - Type 2 diabetes mellitus without complications; Z79.4 - ad terminal makeup operator (current) use of insulin Status: Chronic Assessment and Plan: * Current Glucose 119 * Continue home meds * Continue to monitor * Accu-Cheks AC and HS * Trend glucose * Adjust therapy as indicated (7) Chronic anemia: Code(s): D64.9 - Anemia, unspecified Status: Acute Assessment and Plan: * H/H 8.5/28.4 * Anemia of chronic diseases, and ESRD * Continue to trend H/H * Transfuse as indicated * Procrit in the outpatient (8) Coronary artery disease: Code(s): I25.10 - Atherosclerotic heart disease of [place] coronary artery without angina pectoris Status: Acute Assessment and Plan: * Chest pain-free * Continue home meds (9) Obesity: Code(s): E66.9 - Obesity, unspecified Status: Acute Assessment and Plan: * Lifestyle and diet modifications * Carb consistent diet 1800 calorie * Aircraft Skin Burnisher consult Time Spent With Patient Time with patient: Greater than 35 minutes Subjective Date/time seen: 10/27/21 10:45 Interval history: 10/27/21 1045 Patient was in dialysis when he went seen her. Patient had no complaints including chest pain, shortness a breath, nausea, vomiting, diarrhea constipation, weakness or fatigue. Ultrasound was done of the uterus which did show 7.6 cm and debris along with possible fluid. Did talk to the daughter ab out patient's plan of care explained to her what the results were. Maya
--- NOTE | 2021-10-27 14:00 | PM.IMPN ---
Progress Note: A&P Assessment and Plan (1) Urinary tract infection: Code(s): N39.0 - Urinary tract infection, site not specified Status: Acute Assessment and Plan: UA Positive Nitrates, 2+ Leukocyte esterase, >75 WBC 1+ Bacteria Continue Zosyn Trend urine output Cultures found mixed yris indicating contamination Adjust therapy to culture results WBC 11.7 today (2) End-stage renal disease on hemodialysis: Code(s): N18.6 - End stage renal disease; Z99.2 - Dependence on renal dialysis Status: Acute Assessment and Plan: Patient dialyzes Saturday and Saturday Nephrology consult to help manage dialysis Current BUN/Cr 25/3.30 Trend urine output Daily weights (3) Elevated lipase: Code(s): R74.8 - Abnormal levels of other serum enzymes Status: Acute Assessment and Plan: CT abdomen and pelvis did not show pancreas inflammation Does report nausea Lipases is Trend labs advanced diet to renal (4) Diarrhea: Code(s): R19.7 - Diarrhea, unspecified Status: Acute Assessment and Plan: Secondary to underlying disease seems to be resolved at this time Continue to monitor Supportive care (5) Enlarged uterus: Code(s): N85.2 - Hypertrophy of uterus Status: Acute Assessment and Plan: Concerning findings for enlarged uterus on CT of abdomen and pelvis Grinding Machine Tender consult thank you for your help Transvaginal ultrasound Markedly thickened endometrium filled with complex debris measuring up to 7.6 cm. Differential diagnosis includes malignancy, infection and inflammatory process. Recommend direct clinical correlation. Patient is being scheduled for an outpatient D&C (6) Insulin dependent type 2 diabetes mellitus: Code(s): E11.9 - Type 2 diabetes mellitus without complications; Z79.4 - [facility] (current) use of insulin Status: Chronic Assessment and Plan: Current Glucose 119 Continue home meds Continue to monitor Accu-Cheks AC and HS Trend glucose Adjust therapy as indicated (7) Chronic anemia: Code(s): D64.9 - Anemia, unspecified Status: Acute Assessment and Plan: H/H 8.5/28.4 Anemia of chronic diseases, and ESRD Continue to trend H/H Transfuse as indicated Procrit in the outpatient (8) Coronary artery disease: Code(s): I25.10 - Atherosclerotic heart disease of [place] coronary artery without angina pectoris Status: Acute Assessment and Plan: Chest pain-free Continue home meds (9) Obesity: Code(s): E66.9 - Obesity, unspecified Status: Acute Assessment and Plan: Lifestyle and diet modifications Carb consistent diet 1800 calorie Gun Number consult Time Spent With Patient Time with patient: Greater than 35 minutes Subjective Date/time seen: 10/27/21 10:45 Interval history: 10/27/21 1045 Patient was in dialysis when he went seen her. Patient had no complaints including chest pain, shortness a breath, nausea, vomiting, diarrhea constipation, weakness or fatigue. Ultrasound was done of the uterus which did show 7.6 cm and debris along with possible fluid. Did talk to the daughter about patient's plan of care explained to her what the results were. Patient's blood pressure is also been low. 10/26/21? 0930 Patient seems to be very drowsy today.? She states that she feels funny.? She states she is nauseated however her diarrhea has stopped.? She has been he abdominal pain.? She denies any chest pain, shortness a breath, vomiting, weakness or fatigue. 10/25/21? 19:49 This is a 71-year-old female with past medical history significant for end-stage renal disease on hemodialysis, hypertension, hyperlipidemia, type 2 diabetes mellitus, right AKA and left BKA, peripheral arterial vascular disease, tobacco dependence, patient is a current everyday smoker.
[2021-10-27] MEDS: carvediloL 25 MG TABLET PO (14:29)
[2021-10-27 14:40] LABS: Basophils Percent Auto 0.2 % (0.2-1.2); Eosinophils Absolute Auto 0.1 K/mm3 (0-0.3); Hematocrit 30.5 % (37.0-47.0); Hemoglobin 9.5 g/dL (12.0-15.0); Immature Granulocyte Absolute 0.08 K/mm3 (0.00-0.031); Immature Granulocyte Percent A 0.6 % (0-0.5); Lymphocytes Absolute Auto 0.97 K/mm3 (0.9-3.2); Lymphocytes Percent Auto 7.1 % (18.3-44.2); Mean Corpuscular HGB Conc 31.1 g/dl (32-36); Mean Corpuscular Hemoglobin 31.4 pg (26-34); Mean Corpuscular Volume 100.7 fl (80-100); Monocytes Absolute Auto 0.6 K/mm3 (0.1-0.6); Monocytes Percent Auto 4.5 % (2.6-8.5); Neutrophils Absolute Auto 11.9 K/mm3 (1.3-6.7); Neutrophils Percent Auto 86.6 % (45.5-73.1); Platelet Count Result 147 k/mm3 (150-375); Red Blood Count 3.03 M/mm3 (4.2-5.4); Red Cell Distribution Width 12.8 % (11.5-14.5); White Blood Count 13.8 K/mm3 (4.5-10.0)
[2021-10-27 14:50] LABS: Lipase 71 U/L (23-300)
== END 2021-10-27 16:25 | disposition home health service (06) ==
LOC: ANHED 17:15 → ANH3MEDSUR 22:14
PROVIDERS: Admitting Provider Internal Medicine; Emergency Provider Emergency Medicine; PCP Internal Medicine; Visit Provider Nurse Practitioner
DX: N39.0 Urinary tract infection, site not specified (principal); R11.2 Nausea with vomiting, unspecified; N85.8 Other specified noninflammatory disorders of uterus; R74.8 Abnormal levels of other serum enzymes; R19.7 Diarrhea, unspecified; N85.2 Hypertrophy of uterus; D64.9 Anemia, unspecified; I12.0 Hypertensive chronic kidney disease with stage 5 chronic kidney disease or end stage renal disease; E11.22 Type 2 diabetes mellitus with diabetic chronic kidney disease; N18.6 End stage renal disease; Z99.2 Dependence on renal dialysis; I25.10 Atherosclerotic heart disease of native coronary artery without angina pectoris; E11.51 Type 2 diabetes mellitus with diabetic peripheral angiopathy without gangrene; E78.5 Hyperlipidemia, unspecified; E11.69 Type 2 diabetes mellitus with other specified complication; M86.9 Osteomyelitis, unspecified; E11.40 Type 2 diabetes mellitus with diabetic neuropathy, unspecified; E11.319 Type 2 diabetes mellitus with unspecified diabetic retinopathy without macular edema; E11.21 Type 2 diabetes mellitus with diabetic nephropathy; N25.0 Renal osteodystrophy; Z79.01 Long term (current) use of anticoagulants; Z79.4 Long term (current) use of insulin; Z79.82 Long term (current) use of aspirin; Z89.022 Acquired absence of left finger(s); Z89.512 Acquired absence of left leg below knee; Z89.511 Acquired absence of right leg below knee; Z95.1 Presence of aortocoronary bypass graft; Z98.1 Arthrodesis status; Z95.820 Peripheral vascular angioplasty status with implants and grafts; F17.210 Nicotine dependence, cigarettes, uncomplicated; E66.9 Obesity, unspecified; Z68.37 Body mass index [BMI] 37.0-37.9, adult
CPT/HCPCS: 36415; 71045; 74176; 76830; 80053; 81001; 82948; 83690; 83735; 85025; 87086; 87088; 96365; 96375; 96376; 97162; 97166; 99285; A9270; G0257; G0378; J0696; J1644; J1815; J2543; J7030; Q5105

== ENCOUNTER 2022-02-06 18:16 | Observation (INO) | payer MEDICARE, OTHER, SELFPAY ==
[2022-02-06] VITALS (15 sets, daily range): BP systolic 155–188; BP diastolic 39–64; PULSE 64–77; RESP 12–20; TEMP 36.4–36.6; O2SAT 94–100; BMI 37.5
--- NOTE | ~2022-02-06 | CT_ITS ---
EXAMINATION: CT brain wo con DATE: 02/07/2022 18:41 INDICATION: confusion . TECHNIQUE: Computed tomography (CT) of the head was performed without intravenous contrast. The mA wa s adjusted according to patient size. Iterative reconstruction technique was employed. The dose-lengt h product was 605.33 mGy-cm. COMPARISON: 08/03/2020 FINDINGS: Motion limited examination. No acute intracranial hemorrhage or extra-axial fluid collection. No hydrocephalus, mass, or herniation. No acute ischemic infarct. Unremarkable dural venous sinus attenuation. No acute osseous abnormality. Trace right mastoid fluid. The remaining aerated spaces are clear. Mild atrophy and moderate chronic white matter change. Atherosclerotic intracranial calcification. Ol d small bilateral basal ganglia and lacunar infarcts. Small left pontine infarct. Bilateral lens repl acements. IMPRESSION: Motion limited examination. Within that constraint, no definite acute intracranial process. Reviewed, dictated and finalized at location K. IMPRESSION: Motion limited examination. Within that constraint, no definite acute intracran ial process.
--- NOTE | ~2022-02-06 | XR_ITS ---
EXAMINATION: XR chest 1V portable Exam Date/Time: 02/07/2022 17:23 CDT HISTORY: chest pain Comparison: 02/06/2022. RESULT: Lines, tubes, and devices: Right IJ catheter remains in stable and good position. Stable sternotomy wires and closure devices. Mediastinal surgical clips. Lungs and pleura: Slightly increased reticular opacities, most evident in the right lower lung. Cardiomediastinal silhouette: Stable. Other: No acute osseous or upper abdominal finding. IMPRESSION: Pulmonary opacities likely reflect slightly increased interstitial pulmonary edema. Reviewed, dictated and finalized at location K. IMPRESSION: Pulmonary opacities likely reflect slightly increased interstitial pulmonary ed jaycee.
--- NOTE | ~2022-02-06 | XR_ITS ---
EXAMINATION: XR chest 1V portable DATE: 02/08/2022 05:53 INDICATION: Shortness of breath. TECHNIQUE: A single frontal view of the chest was obtained. COMPARISON: Chest single view 02/07/2022 FINDINGS: There is mild elevation of right hemidiaphragm without change. There is no pneumonia, pleur al effusion, or pneumothorax. Cardiomegaly is noted. Median sternotomy wires and mediastinal surgical clips are seen, likely from prior coronary artery bypass grafting. A right internal jugular central venous catheter is seen with tip in the right atrium. IMPRESSION: 1. Cardiomegaly. Reviewed, dictated and finalized at location A. IMPRESSION: 1. Cardiomegaly.
--- NOTE | ~2022-02-06 | XR_ITS ---
EXAMINATION: XR chest 2V DATE: 02/06/2022 18:59 INDICATION: Shortness of breath. TECHNIQUE: Frontal and lateral views of the chest were obtained. COMPARISON: Chest single view 10/26/2021, CT abdomen and pelvis 10/25/2021 FINDINGS: There are reticular opacities in the lower lung zones, consistent with mild pulmonary edema . There are small pleural effusions. No pneumothorax. Cardiomegaly is noted. Median sternotomy wires and mediastinal surgical clips are seen, likely from prior coronary artery bypass grafting. There is a right internal jugular central venous catheter with tip in right atrium. IMPRESSION: 1. Mild pulmonary edema. 2. Small pleural effusions. 3. Cardiomegaly. Reviewed, dictated and finalized at location E.
--- NOTE | 2022-02-06 18:22 | ECG_ITS ---
Measurements Intervals [place] Rate: 70 P: 60 CO: 187 QRS: -81 QRSD: 145 T: 61 QT: 437 QTc: 472 Interpretive Statements SINUS RHYTHM RIGHT BUNDLE BRANCH BLOCK LEFT ANTERIOR FASCICULAR BLOCK BASELINE ARTIFACT- AVR, AVL, AVF, V5-V6 ABNORMAL ECG COMPARED TO ECG 10/09/2021 07:03:04 NO SIGNIFICANT CHANGES Electronically Signed On 02-06-2022 21:05:57 CDT by Fito Mcintosh D.O.
[2022-02-06 18:57] LABS: Basophils Percent Auto 0.6 % (0.2-1.2); Eosinophils Absolute Auto 0.4 K/mm3 (0-0.3); Eosinophils Percent Auto 5.3 % (0-4.4); Hematocrit 34.5 % (37.0-47.0); Hemoglobin 10.7 g/dL (12.0-15.0); Immature Granulocyte Absolute 0.02 K/mm3 (0.00-0.031); Immature Granulocyte Percent A 0.3 % (0-0.5); Lymphocytes Absolute Auto 1.48 K/mm3 (0.9-3.2); Lymphocytes Percent Auto 22.4 % (18.3-44.2); Mean Corpuscular Hemoglobin 31.7 pg (26-34); Mean Corpuscular Volume 102.1 fl (80-100); Mean Platelet Volume 12.9 fl (7.4-10.4); Monocytes Absolute Auto 0.3 K/mm3 (0.1-0.6); Monocytes Percent Auto 4.7 % (2.6-8.5); Neutrophils Absolute Auto 4.4 K/mm3 (1.3-6.7); Neutrophils Percent Auto 66.7 % (45.5-73.1); Platelet Count Result 101 k/mm3 (150-375); Red Blood Count 3.38 M/mm3 (4.2-5.4); Red Cell Distribution Width 12.2 % (11.5-14.5); White Blood Count 6.6 K/mm3 (4.5-10.0)
[2022-02-06 19:11] LABS: Alanine Aminotransferase 9 U/L (6-35); Albumin Level 3.3 g/dL (3.5-5.1); Alkaline Phosphatase 157 U/L (38-126); Anion Gap 11 mmol/L (8-16); Aspartate Amino Transferase 16 U/L (14-36); Bilirubin,Total 0.3 mg/dL (0.2-1.3); Blood Urea Nitrogen 64 mg/dL (7-17); Calcium 6.8 mg/dL (8.4-10.2); Carbon Dioxide 22 mmol/L (22-30); Chloride 110 mmol/L (98-107); Estimated Glomerular Filt Rate 6; Glucose 187 mg/dL (65-110); Potassium 5.3 mmol/L (3.4-5.0); Sodium 143 mmol/L (137-145)
--- NOTE | 2022-02-06 20:12 | ED.SOB ---
HPI - SOB/Dyspnea General Chief Complaint: Shortness of Breath/Dyspnea Stated Complaint: SOB Time Seen by Provider: 02/06/22 19:15 History of Present Illness HPI Narrative: This is a 71-year-old female with end-stage renal disease on dialysis Saturday, last dialysis done on February 02, who presents to the emergency department complaining of shortness of breath beginning this morning. Patient states she did not have her regular scheduled dialysis yesterday due to the holiday. She complains of 2/10, chest pressure that does not radiate and denies other pain. She also notes some fevers and chills at home with no known sick contacts. Related Data Home Medications Medication Instructions Recorded Confirmed apixaban 5 mg tablet (Eliquis) 5 mg PO BID 11/03/19 02/06/22 carvedilol 25 mg tablet 25 mg PO BID 11/03/19 02/06/22 insulin degludec 100 unit/mL 32 unit subcut HS 11/03/19 02/06/22 subcutaneous solution (Tresiba U-100 Insulin) pravastatin 40 mg tablet 40 mg PO HS 11/03/19 02/06/22 acetaminophen 500 mg capsule 1,000 mg PO Q6H PRN Pain 02/11/20 02/06/22 sertraline 25 mg tablet 25 mg PO QAM 02/11/20 02/06/22 gabapentin 400 mg capsule 400 mg PO TID 10/09/21 02/06/22 losartan 100 mg tablet 100 mg PO [id number] 10/09/21 02/06/22 nifedipine 30 mg tablet,extended 30 mg PO Q12H 10/09/21 02/06/22 release cetirizine 10 mg tablet 10 mg PO 1XD 02/06/22 02/06/22 Allergies Allergy/AdvReac Type Severity Reaction Status Date / Time No Known Allergies Allergy Verified 10/09/21 07:17 Review of Systems Review of Systems: CONSTITUTIONAL: fever, chills, Denies , or sweats. EYES: Denies visual changes, redness, or discharge. ENT: Denies rhinorrhea, congestion, sore throat, or otalgia. CARDIOVASCULAR: +Chest pressure, denies palpitations, or edema. RESPIRATORY: +dyspnea. Denies cough GASTROINTESTINAL: Denies abdominal pain, nausea, vomiting, or diarrhea. GENITOURINARY: Denies dysuria or hematuria. SKIN: Denies rash or itching. MUSCULOSKELETAL: Denies back pain, joint pain, or myalgia. NEUROLOGIC: Denies headache, numbness, dizziness, or weakness. PSYCHIATRIC: Denies anxiety or depression. [facility] Past Medical History Medical History Arterial vascular disease Chronic anemia Coronary artery disease Digital arterial occlusive disease End-stage renal disease on hemodialysis Saturday, Saturday, Saturday. 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 Hemoglobin A1c was 6.8% in February 2020. Osteomyelitis Osteomyelitis of right tibia Renal osteodystrophy Surgical History Surgical History Amputation of right forefoot :Right 4th and 5th ray amputation in 04/2017. :Right foot transmetatarsal amputation with partial fasciotomy due to wet gangrene, osteomyelitis, and necrotizing fasciitis in May 2017. 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 History of below-knee amputation of both lower extremities Left [id number]-[id number] amputation in 2017. Right [id number] amputation in 02/2020. History of carpal tunnel release History of coronary artery bypass graft History of right above knee amputation (~05/12/20) History of right below knee amputation (~02/2020) History of spinal fusion History of surgical procedure on eye proper using laser Related to diabetic retinopathy. History of vascular surgery Right lower extremity stents in March 2017. Left lower extremity stent in 2014. Family History Family History Mother Diabetes mellitus Father Lung cancer Social History Social History (Updated 02/06/22 @ 23:11 by Lovely Veronica RN) Social History: Surrogate decision maker:
[2022-02-06] MEDS: FUROSEMIDE INJ 40 MG/4 ML VIAL IV PUSH (20:41)
[2022-02-06 20:53] LABS: Troponin I < 0.012 ng/mL (0.000-0.034)
[2022-02-06 21:08] LABS: Fractional Inspired Oxygen 28 %; HCO3 VBG 22.4 mEq/l (24.0-30.0); PCO2 VBG 46.3 mmHg (42.0-48.0); PO2 VBG 42.9 mmHg (35.0-45.0); pH VBG 7.303 (7.300-7.400)
[2022-02-06 21:09] LABS: Device NASAL CANNULA
[2022-02-06 21:20] LABS: SARS-CoV-2 RNA PCR Negative
--- NOTE | 2022-02-06 21:46 | PM.IMHP ---
H&P: HPI History of Present Illness Date/Time: 02/06/22 21:46 Chief Complaint: shortness of breath Narrative: This is a 71-year-old female with past medical history significant for end-stage renal disease on hemodialysis Saturday, type 2 diabetes mellitus, right AKA, left BKA, left upper extremity 4th and 5th finger amputation, failed fistula, Tobacco dependence, hypertension, peripheral vascular disease, anemia chronic disease. patient presents today to the emergency room due to worsening shortness of breath for the last 3 days or so she has skipped dialysis, denies any fevers, rigors, chills have has had a cough productive of sputum however can tell me the color of it is states that has not her usual. Denies any nausea, vomiting, abdominal pain, diarrhea, has has retrosternal chest pain. preliminary workup was significant for chest x-ray 1. Mild pulmonary edema. 2. Small pleural effusions. 3. Cardiomegaly. In emergency room patient receive Lasix times once, the time of my visit she stated having some relieve from shortness of breath. she required supplemental oxygen by nasal cannula and her saturations is stay at 94%. Patient is been admitted for further evaluation management and treatment. Review of Systems Review of Systems: Shortness of breath, cough, productive of sputum. Constitutional: Constitutional: Denies chills, Reports fatigue, Denies fever(s), Reports lethargy, Reports malaise, Denies night sweats and Reports weakness Eyes: Eyes: Denies change in vision ENT: Denies dysphagia, Denies vertigo, Denies dizziness and Denies odynophagia Cardiovascular: Cardiovascular: Reports chest pain, Denies syncope, Denies irregular heart rhythm, Denies lightheadedness, Denies palpitations and Reports dyspnea Respiratory: Respiratory: Denies change in phlegm color, Reports cough, Reports excessive phlegm production and Denies wheezing Gastrointestinal: Gastrointestinal: Denies abdominal pain, Denies dyspepsia, Denies heartburn, Denies diarrhea, Denies nausea and Denies vomiting Genitourinary: Genitourinary: Denies dysuria Musculoskeletal: Musculoskeletal: Denies myalgias and Denies joint swelling Integumentary/Breasts: Skin/Breast: Denies rash Neurologic: Denies focal weakness and Denies Sensory deficit (Neuro) Psychiatric: Psychiatric: Reports no additional psychiatric complaints and Reports as per HPI Endocrine: Endocrine: Denies cold intolerance, Denies flushing, Denies heat intolerance, Denies polyphagia, Denies polydipsia and Denies palpitations Hematologic/Lymphatic: Hematologic/Lymphatic: Reports no additional hematologic/lymphatic complaints and Reports as per HPI Allergic/Immunologic: Allergic/Immunologic: Reports no additional allergic/immunologic complaints and Reports as per HPI PMF Past Medical History Medical History Arterial vascular disease Chronic anemia Coronary artery disease Digital arterial occlusive disease End-stage renal disease on hemodialysis Saturday, Saturday, Saturday. 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 Hemoglobin A1c was 6.8% in February 2020. Osteomyelitis Osteomyelitis of right tibia Renal osteodystrophy Surgical History Surgical History Amputation of right forefoot :Right 4th and 5th ray amputation in 04/2017. :Right foot transmetatarsal amputation with partial fasciotomy due to wet gangrene, osteomyelitis, and necrotizing fasciitis in May 2017. 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 History of below-knee amputation of both lower extremities Left [id number]-tuv-pnld amputation in 2017. Right hwszy-[id number]-[id number] amputation in 02/2020. History of carpal tunnel release His
--- NOTE | 2022-02-06 22:32 | PC.NURSE ---
Report called and given to Lovely at [phone]
--- NOTE | 2022-02-06 23:09 | ADMGEN ---
This patient, Tawana Prado, was admitted to [facility] Surg Room 323-02. Patient/family oriented to hospital policies and general routines including ID bracelet, bed and alarms, visiting hours, pain management, procedures, bathroom and other care routines, personal items, smoking policy, room service/diet, and visiting hours. Information on how to activate the Rapid Response Team has been discussed. Patient/Family are encouraged to report perceived risks to care and to ask questions if they do not understand what they are told or what they should do.
[2022-02-07] VITALS (25 sets, daily range): BP systolic 80–207; BP diastolic 42–102; PULSE 63–96; RESP 14–18; TEMP 36–37; O2SAT 93–100
[2022-02-07 07:57] LABS: Glucose Point of Care 128 mg/dl (65-105)
[2022-02-07] MEDS: FUROSEMIDE INJ 40 MG/4 ML VIAL IV PUSH (08:09)
[2022-02-07] MEDS: NIFEdipine 30 MG TAB.ER.24 PO ×2 (08:37→21:06)
[2022-02-07] MEDS: SERTRALINE HCL 25 MG TABLET PO (08:38)
[2022-02-07] MEDS: carvediloL 25 MG TABLET PO ×2 (08:38→19:40)
[2022-02-07] MEDS: GABAPENTIN 400 MG CAPSULE PO ×3 (08:38→19:41)
[2022-02-07] MEDS: APIXABAN 5 MG TABLET PO ×2 (08:38→21:06)
[2022-02-07] MEDS: ASPIRIN 81 MG CHEWABLE TABLET PO (08:38)
[2022-02-07] MEDS: LORATADINE 10 MG TABLET PO (08:38)
--- NOTE | 2022-02-07 09:29 | PM.CNNEP ---
Assessment and Plan Assessment and plan (1) ESRD (end stage renal disease): Code(s): N18.6 - End stage renal disease Status: Acute Assessment and Plan: Tawana has end-stage renal disease. This is due to diabetes and hypertension. She was due for dialysis last Saturday. Unfortunate she has not been to dialysis in about a week. So presently her potassium is only 5.3. Will do her dialysis today on a low K bath. She does have some volume overload as evidenced by chest x-ray and exam. Will take some fluid off today. (2) Volume overload: Code(s): E87.70 - Fluid overload, unspecified Status: Acute Assessment and Plan: The patient has volume overload due to missing treatments and eating and drinking over the last week. The patient does have some chest pressure. This is most likely related to the fluid however I will let hospitalist evaluate this. So far troponins are negative and the EKG is unchanged. Will remove fluid on dialysis this morning. (3) Renal osteodystrophy: Code(s): N25.0 - Renal osteodystrophy Status: Acute Assessment and Plan: Will check a phosphorus level in the morning (4) Erythropoietin deficiency anemia: Code(s): D63.1 - Anemia in chronic kidney disease Status: Acute Assessment and Plan: hemoglobin is 10.2. Will give Epogen today. (5) Hypertension: Qualifiers: Hypertension type: renovascular hypertension Qualified Code(s): I15.0 - Renovascular hypertension Code(s): I10 - Essential (primary) hypertension Status: Chronic Assessment and Plan: The blood pressure is somewhat generous with a systolic between 150 and 180. Continue home meds and remove fluid. (6) Insulin dependent type 2 diabetes mellitus: Code(s): E11.9 - Type 2 diabetes mellitus without complications; Z79.4 - nursing home (current) use of insulin Status: Chronic Assessment and Plan: Insulin and Accu-Cheks per hospitalist. 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 The patient did not go to dialysis on Saturday. She said that I was just tired of it . Saturday she was supposed to get the dialysis as well but did not go. Yesterday the patient developed some shortness of breath and yesterday evening it got worse and so she came to the hospital. She also had some chest pressure. This is constant and has been going on as long she has been short of breath. She does not have pain down the arm up and the jaw or into the back. She has no cough. No fevers or chills. She has diabetes. She has had this for a long time. Accu-Cheks have been okay. She has chronic hypertension as well and her blood pressures have been under good control. Review of Systems Constitutional: Constitutional: Reports no additional constitutional complaints Eyes: Eyes: Reports no additional eye complaints ENT: Reports system reviewed and no additional complaints, except as documented Cardiovascular: Cardiovascular: Reports no additional cardiovascular complaints Respiratory: Respiratory: Reports no additional respiratory complaints Gastrointestinal: Gastrointestinal: Reports no additional gastrointestinal complaints Genitourinary: Genitourinary: Reports no additional female genitourinary complaints Musculoskeletal: Musculoskeletal: Reports no additio
[2022-02-07 11:31] LABS: Glucose Point of Care 129 mg/dl (65-105)
--- NOTE | 2022-02-07 11:45 | PM.IMPN ---
Progress Note: A&P Assessment and Plan (1) Acute dyspnea: Code(s): R06.00 - Dyspnea, unspecified Status: Acute Assessment and Plan: likely secondary to fluid overload as patient skipped dialysis nephrology has been consulted dialysis scheduled here (2) Pulmonary edema: Code(s): J81.1 - Chronic pulmonary edema Status: Acute Assessment and Plan: Lasix as needed continue to monitor intake and output daily secondary to skipping dialysis Scheduled for inpatient hemodialysis at 1:30 a.m. today. Recheck x-ray in the morning (3) ESRD (end stage renal disease): Code(s): N18.6 - End stage renal disease Status: Acute Assessment and Plan: hemodialysis Saturday (4) Status post above-knee amputation of right lower extremity: Code(s): Z89.611 - Acquired absence of right leg above knee Status: Acute Assessment and Plan: fall precautions (5) Coronary artery disease: Code(s): I25.10 - Atherosclerotic heart disease of [place] coronary artery without angina pectoris Status: Acute Assessment and Plan: no EKG changes (6) History of left below knee amputation: Code(s): Z89.512 - Acquired absence of left leg below knee Status: Acute Assessment and Plan: fall precautions (7) Insulin dependent type 2 diabetes mellitus: Code(s): E11.9 - Type 2 diabetes mellitus without complications; Z79.4 - [facility] (current) use of insulin Status: Chronic Assessment and Plan: continue home meds Accu-Cheks AC and HS Subjective Date/time seen: 02/07/22 11:45 Interval history: feel short of breath earlier today received Lasix IV which helped some. He has awaited for dialysis this afternoon and 130 missed dialysis since last week. Review of Systems Review of Systems: All systems reviewed & are unremarkable except as noted in HPI and below Exam Narrative: GENERAL: Well-developed, well-nourished not in acute distress HEAD: Normocephalic, atraumatic. EYES: PERRLA and EOMI. ENT: Nares clear, no rhinorrhea or epistaxis.? Mucous membranes moist.? NECK: JVD, Supple.? No adenopathy or masses.? No carotid bruits CHEST: Rales noted to bilateral lower lung loera, no wheeze or rhonchi no respiratory distress. HEART: Regular rate and rhythm.? No murmur heard.? Normal peripheral pulses. ABDOMEN: Soft, nontender, nondistended, normal active bowel sounds. EXTREMITIES: Right AKA with well-healed surgical scar, left BKA with well-healed surgical scar, normal range of motion.? No edema. SKIN: Warm, dry, no rash. NEURO: No focal deficits.? Alert and oriented x3. PSYCH: Normal mood and affect. Objective Data Vital Signs Vital Signs: Vital Signs - 24 hr 02/06/22 18:24 02/06/22 18:38 02/06/22 18:39 Temperature 97.6 F Pulse Rate 70 71 Respiratory Rate 14 Blood Pressure 188/58 H Pulse Oximetry 96 96 Oxygen Delivery Room Air Room Air Oxygen Flow Rate 02/06/22 18:39 02/06/22 19:29 02/06/22 19:35 Temperature Pulse Rate 72 Respiratory Rate 14 Blood Pressure 155/57 H Pulse Oximetry 100 98 94 Oxygen Delivery Nasal Cannula Room Air Oxygen Flow Rate 2 02/06/22 19:37 02/06/22 19:27 02/06/22 19:36 Temperature Pulse Rate 72 77 Respiratory Rate 20 14 Blood Pressure 155/57 H Pulse Oximetry 97 100 94 Oxygen Delivery Nasal Cannula Oxygen Flow Rate 2 02/06/22 20:01 02/06/22 20:16 02/06/22 20:31 Temperature Pulse Rate 70 70 71 Respiratory Rate 12 12 12 Blood Pressure 157/57 H 171/55 H 167/64 H Pulse Oximetry 99 98 Oxygen Delivery Oxygen Flow Rate 02/06/22 21:04 02/06/22 22:01 02/06/22 22:16 Temperature Pulse Rate 69 67 67 Respiratory Rate 14 12 12 Blood Pressure 175/56 H 166/60 H Pulse Oximetry 100 Oxygen Delivery Oxygen Flow Rate 02/06/22 22:45 02/07/22 00:00 02/07/22 04:00 Temperature 97.9 F Pulse Rate 64 67 65
--- NOTE | 2022-02-07 13:41 | PC.NURSE ---
patient to dialysis per bed. currently on 2L
[2022-02-07 16:10] LABS: Glucose Point of Care 127 mg/dl (65-105)
[2022-02-07] MEDS: EPOETIN ALFA-EPBX 10,000 UNITS/ML VIAL 10000 UNITS IV PUSH (16:43)
--- NOTE | 2022-02-07 17:16 | ECG_ITS ---
Measurements Intervals [place] Rate: 70 P: 55 SD: 183 QRS: 240 QRSD: 152 T: -24 QT: 431 QTc: 466 Interpretive Statements SINUS RHYTHM RIGHT AXIS DEVIATION RIGHT BUNDLE BRANCH BLOCK BASELINE ARTIFACT- I, II, III, AVR, AVL, AVF, V2-V3, V5 ABNORMAL ECG COMPARED TO ECG 02/06/2022 19:16:08 NO SIGNIFICANT CHANGES Electronically Signed On 02-08-2022 7:10:56 CDT by Fito Mcintosh D.O.
[2022-02-07 17:43] LABS: Glucose Point of Care 128 mg/dl (65-105)
--- NOTE | 2022-02-07 18:00 | PC.NURSE ---
called pharmacy to let them know I am missing 1700 coreg and gabapentin. Will give when received
[2022-02-07 18:27] LABS: Alveolar/Arterial O2 Gradient 79.4 mmHg; Base Excess ABG 2.8 mEq/l (+/-2.0); Device NASAL CANNULA; Fractional Inspired Oxygen 28 %; HCO3 ABG 27.4 mEq/l (22.0-26.0); Oxygen Saturation ABG 94.5 % (95.0-100.0); Oxyhemoglobin 93.2 % THb (90.0-100.0); PCO2 ABG 42.4 mmHg (35.0-45.0); PO2 ABG 70.2 mmHg (80.0-100.0); PO2 FiO2 Ratio Arterial Blood 2.51 %; Site Drawn LEFT BRACHIAL; Total Hemoglobin 12.2 g/dL (12.0-18.0); pH ABG 7.429 (7.350-7.450)
[2022-02-07 20:04] LABS: Troponin I < 0.012 ng/mL (0.000-0.034)
[2022-02-07] MEDS: INSULIN GLARGINE (*BKC) 100 UNITS/ML 32 UNITS SUB-Q (21:04)
[2022-02-07] MEDS: PRAVASTATIN SODIUM 20 MG TABLET 40 MG PO (21:06)
[2022-02-07 21:37] LABS: Glucose Point of Care 165 mg/dl (65-105)
[2022-02-08] VITALS (7 sets, daily range): BP systolic 155–178; BP diastolic 49–58; PULSE 67–72; RESP 16; TEMP 36.3–36.4; O2SAT 93–98
[2022-02-08 06:13] LABS: Basophils Percent Auto 0.8 % (0.2-1.2); Eosinophils Absolute Auto 0.3 K/mm3 (0-0.3); Eosinophils Percent Auto 4.9 % (0-4.4); Hematocrit 31.9 % (37.0-47.0); Hemoglobin 10.2 g/dL (12.0-15.0); Immature Granulocyte Absolute 0.03 K/mm3 (0.00-0.031); Immature Granulocyte Percent A 0.6 % (0-0.5); Lymphocytes Absolute Auto 1.54 K/mm3 (0.9-3.2); Lymphocytes Percent Auto 29.1 % (18.3-44.2); Mean Corpuscular Hemoglobin 30.9 pg (26-34); Mean Corpuscular Volume 96.7 fl (80-100); Mean Platelet Volume 12.4 fl (7.4-10.4); Monocytes Absolute Auto 0.4 K/mm3 (0.1-0.6); Monocytes Percent Auto 6.8 % (2.6-8.5); Neutrophils Absolute Auto 3.1 K/mm3 (1.3-6.7); Neutrophils Percent Auto 57.8 % (45.5-73.1); Platelet Count Result 102 k/mm3 (150-375); Red Cell Distribution Width 11.9 % (11.5-14.5); White Blood Count 5.3 K/mm3 (4.5-10.0)
[2022-02-08 06:24] LABS: Alanine Aminotransferase 9 U/L (6-35); Albumin Level 3.1 g/dL (3.5-5.1); Alkaline Phosphatase 115 U/L (38-126); Anion Gap 11 mmol/L (8-16); Aspartate Amino Transferase 16 U/L (14-36); Bilirubin,Total 0.2 mg/dL (0.2-1.3); Blood Urea Nitrogen 31 mg/dL (7-17); Carbon Dioxide 29 mmol/L (22-30); Chloride 100 mmol/L (98-107); Estimated CRCL calculation 10 ml/min; Estimated Glomerular Filt Rate 10; Glucose 92 mg/dL (65-110); Phosphorus 5.3 mg/dL (2.5-4.5); Potassium 4.1 mmol/L (3.4-5.0); Sodium 140 mmol/L (137-145)
[2022-02-08 07:57] LABS: Glucose Point of Care 87 mg/dl (65-105)
[2022-02-08] MEDS: GABAPENTIN 400 MG CAPSULE PO ×2 (08:50→14:15)
[2022-02-08] MEDS: carvediloL 25 MG TABLET PO (08:50)
[2022-02-08] MEDS: LOSARTAN POTASSIUM 100 MG TABLET PO (08:50)
[2022-02-08] MEDS: APIXABAN 5 MG TABLET PO (08:50)
[2022-02-08] MEDS: LORATADINE 10 MG TABLET PO (08:50)
[2022-02-08] MEDS: ASPIRIN 81 MG CHEWABLE TABLET PO (08:50)
[2022-02-08] MEDS: NIFEdipine 30 MG TAB.ER.24 PO (08:51)
[2022-02-08] MEDS: SERTRALINE HCL 25 MG TABLET PO (08:51)
[2022-02-08 11:21] LABS: Glucose Point of Care 134 mg/dl (65-105)
--- NOTE | 2022-02-08 12:44 | PM.DS ---
DS: Admitting Diagnosis Discharge Date 02/08/2022 02/08/2022 Admitting Diagnosis Shortness of breath DS: Discharge Diagnosis Discharge Diagnosis (1) Acute dyspnea: Code(s): R06.00 - Dyspnea, unspecified Status: Acute (2) Pulmonary edema: Code(s): J81.1 - Chronic pulmonary edema Status: Acute (3) ESRD (end stage renal disease): Code(s): N18.6 - End stage renal disease Status: Acute (4) Status post above-knee amputation of right lower extremity: Code(s): Z89.611 - Acquired absence of right leg above knee Status: Acute (5) Coronary artery disease: Code(s): I25.10 - Atherosclerotic heart disease of [place] coronary artery without angina pectoris Status: Acute (6) History of left below knee amputation: Code(s): Z89.512 - Acquired absence of left leg below knee Status: Acute (7) Insulin dependent type 2 diabetes mellitus: Code(s): E11.9 - Type 2 diabetes mellitus without complications; Z79.4 - USP (current) use of insulin Status: Chronic DS: Summary Hospital Course Reason for hospitalization: Shortness of breath Hospital Course: # acute dyspnea: Chest x-ray with congestive changes. She was treated with Lasix as needed. secondary to fluid overload as patient skipped dialysis since last week ?nephrology has been consulted ? dialysis was scheduled. Repeat chest x-ray with improved congestion # end-stage renal disease on hemodialysis Saturday # status post above-knee amputation right lower extremity and below-knee amputation left lower extremity # coronary artery disease # No EKG changes # insulin-dependent diabetes mellitus: ?continue home meds ?Accu-Cheks AC and HS # confusion post dialysis 02/07/2022 CT head negative ABG okay. Likely due to hypotension transient from dialysis improved next day Time Spent with Patient Time attestation: Total time spent providing and/or coordinating discharge services: 45 minutes Exam Narrative: GENERAL: Well-developed, well-nourished not in acute distress HEAD: Normocephalic, atraumatic. EYES: PERRLA and EOMI. ENT: Nares clear, no rhinorrhea or epistaxis.? Mucous membranes moist.? NECK: JVD, Supple.? No adenopathy or masses.? No carotid bruits CHEST: Rales noted to bilateral lower lung loera, no wheeze or rhonchi no respiratory distress. HEART: Regular rate and rhythm.? No murmur heard.? Normal peripheral pulses. ABDOMEN: Soft, nontender, nondistended, normal active bowel sounds. EXTREMITIES: Right AKA with well-healed surgical scar, left BKA with well-healed surgical scar, normal range of motion.? No edema. SKIN: Warm, dry, no rash. NEURO: No focal deficits.? Alert and oriented x3. PSYCH: Normal mood and affect. DS: Data Data Completed and Pending Labs on day of discharge: Labs from last 24 hours 02/08/22 02/08/22 02/08/22 11:18 07:50 05:52 WBC RBC Hgb Hct MCV MCH MCHC RDW Plt Count MPV Immature Gran % (Auto) Neut % (Auto) Lymph % (Auto) [place] % (Auto) Eos % (Auto) Baso % (Auto) Lymph # (Auto) [place] # (Auto) Eos # (Auto) Baso # (Auto) Abs Immat Gran (auto) Absolute Neuts (auto) Absolute Nucleated RBC Nucleated RBC % Puncture Site ABG pH ABG pCO2 ABG pO2 ABG PO2/FiO2 Ratio ABG HCO3 ABG O2 Saturation ABG O2 Content ABG Base Excess A-a Gradient Oxyhemoglobin Total Hemoglobin O2 Delivery Device O2 Liters/Min FiO2 Sodium 140 Potassium 4.1 Chloride 100 Carbon Dioxide 29 Anion Gap 11 BUN 31 H D Creatinine 4.50 H Estim Creat Clear Calc 10 Estimated GFR 10 L Glucose 92 POC Capillary Glucose 134 H 87 Calcium 7.0 L Phosphorus 5.3 H Total Bilirubin 0.2 AST 16 ALT 9 Alkaline Phosphatase 115 Troponin I Total Protein 6.0 L Albumin 3.1 L 02/08/22 02/07/22
--- NOTE | 2022-02-08 14:33 | PM.PNNEP ---
Progress Note: A&P Assessment and Plan (1) ESRD (end stage renal disease): Code(s): N18.6 - End stage renal disease Status: Acute Assessment and Plan: Tawana has end-stage renal disease. This is due to diabetes and hypertension. She was due for dialysis last Saturday. Unfortunate she has not been to dialysis in about a week. So presently her potassium is only 5.3. Will do her dialysis today on a low K bath. She does have some volume overload as evidenced by chest x-ray and exam. Will take some fluid off today. (2) Volume overload: Code(s): E87.70 - Fluid overload, unspecified Status: Acute Assessment and Plan: The patient has volume overload due to missing treatments and eating and drinking over the last week. The patient does have some chest pressure. This is most likely related to the fluid however I will let hospitalist evaluate this. So far troponins are negative and the EKG is unchanged. Will remove fluid on dialysis this morning. (3) Renal osteodystrophy: Code(s): N25.0 - Renal osteodystrophy Status: Acute Assessment and Plan: Will check a phosphorus level in the morning (4) Erythropoietin deficiency anemia: Code(s): D63.1 - Anemia in chronic kidney disease Status: Acute Assessment and Plan: hemoglobin is 10.2. Will give Epogen today. (5) Hypertension: Qualifiers: Hypertension type: renovascular hypertension Qualified Code(s): I15.0 - Renovascular hypertension Code(s): I10 - Essential (primary) hypertension Status: Chronic Assessment and Plan: The blood pressure is somewhat generous with a systolic between 150 and 180. Continue home meds and remove fluid. 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 Subjective Date/time seen: 02/08/22 14:33 Interval history: Patient is feeling better today. Objective Data Vital Signs Vital Signs: Vital Signs - 24 hr 02/07/22 15:00 02/07/22 17:15 02/07/22 14:40 Temperature Pulse Rate 64 69 64 Respiratory Rate 14 Blood Pressure 175/71 H 92/67 L 196/63 H Pulse Oximetry Oxygen Delivery Oxygen Flow Rate 02/07/22 15:20 02/07/22 15:39 02/07/22 16:00 Temperature Pulse Rate 67 69 72 Respiratory Rate Blood Pressure 187/69 H 207/64 H 151/85 H Pulse Oximetry Oxygen Delivery Oxygen Flow Rate 02/07/22 16:20 02/07/22 16:40 02/07/22 17:00 Temperature Pulse Rate 76 96 69 Respiratory Rate Blood Pressure 80/59 L 133/102 H 134/53 L Pulse Oximetry Oxygen Delivery Oxygen Flow Rate 02/07/22 16:00 02/07/22 17:06 02/07/22 17:30 Temperature 36.2 C L 36.4 C Pulse Rate 72 89 70 Respiratory Rate 16 16 Blood Pressure 158/68 H 129/63 Pulse Oximetry 100 99 Oxygen Delivery Oxygen Flow Rate 02/07/22 19:40 02/07/22 21:21 02/07/22 20:00 Temperature 36.9 C Pulse Rate 78 70 72 Respiratory Rate 16 Blood Pressure 153/57 H Pulse Oximetry 99 Oxygen Delivery Oxygen Flow Rate 02/07/22 20:00 02/08/22 00:00 02/08/22 04:00 Temperature Pulse Rate 72 69 Respiratory Rate Blood Pressure Pulse Oximetry 99 Oxygen Delivery Nasal Cannula Oxygen Flow Rate 2 02/08/22 05:51 02/08/22 08:50 02/08/22 08:00 Temperature 36.4 C Pulse Rate 67 67 Respiratory Rate 16 Blood Pressure 155/58 H Pulse Oximetry 98 93 Oxygen Delivery Room Air Oxygen Flow Rate 02/08/22 12:00 Temperature Pulse Rate Respiratory Rate Blood Pressure Pulse Oximetry 94 Oxygen Delivery Oxygen Flow Rate Intake/Output Intake/Output: Intake & Output 02/05/22 02/06/22 02/07/22 02/08/22 23:59 23:59 23:59 23:59 Intake Total 800 1090 Output T[place]
--- NOTE | 2022-02-08 14:36 | PM.PNNEP ---
Progress Note: A&P Assessment and Plan (1) ESRD (end stage renal disease): Code(s): N18.6 - End stage renal disease Status: Acute Assessment and Plan: The patient had dialysis yesterday. She had lots of fluid removed. Today she is feeling fine. She is eager for discharge. I agree with her going home volume overload is better. Had fluid removed yesterday. Blood pressure is a little bit on the high side. She is back on her home antihypertensive regimen. hemoglobin is target at 10.2. Will continue Epogen with dialysis. She has diabetes. Accu-Cheks and sliding-scale insulin per hospitalist. The patient has renal osteodystrophy. Her phosphorus level is doing pretty well. Discussed with Dr. De La Cruz Subjective Date/time seen: 02/08/22 14:36 Interval history: The patient feels okay. She is not having any chest pain or shortness of breath. She is eager for discharge. Review of Systems Cardiovascular: Cardiovascular: Reports no additional cardiovascular complaints Respiratory: Respiratory: Reports no additional respiratory complaints Gastrointestinal: Gastrointestinal: Reports no additional gastrointestinal complaints Genitourinary: Genitourinary: Reports no additional female genitourinary complaints Exam Narrative: WDWN in NAD skin no rash head ncat lungs clear cor reg no rub abd BS+ nontender and soft ext no edema. Objective Data Vital Signs Vital Signs: Vital Signs - 24 hr 02/07/22 15:00 02/07/22 17:15 02/07/22 14:40 Temperature Pulse Rate 64 69 64 Respiratory Rate 14 Blood Pressure 175/71 H 92/67 L 196/63 H Pulse Oximetry Oxygen Delivery Oxygen Flow Rate 02/07/22 15:20 02/07/22 15:39 02/07/22 16:00 Temperature Pulse Rate 67 69 72 Respiratory Rate Blood Pressure 187/69 H 207/64 H 151/85 H Pulse Oximetry Oxygen Delivery Oxygen Flow Rate 02/07/22 16:20 02/07/22 16:40 02/07/22 17:00 Temperature Pulse Rate 76 96 69 Respiratory Rate Blood Pressure 80/59 L 133/102 H 134/53 L Pulse Oximetry Oxygen Delivery Oxygen Flow Rate 02/07/22 16:00 02/07/22 17:06 02/07/22 17:30 Temperature 36.2 C L 36.4 C Pulse Rate 72 89 70 Respiratory Rate 16 16 Blood Pressure 158/68 H 129/63 Pulse Oximetry 100 99 Oxygen Delivery Oxygen Flow Rate 02/07/22 19:40 02/07/22 21:21 02/07/22 20:00 Temperature 36.9 C Pulse Rate 78 70 72 Respiratory Rate 16 Blood Pressure 153/57 H Pulse Oximetry 99 Oxygen Delivery Oxygen Flow Rate 02/07/22 20:00 02/08/22 00:00 02/08/22 04:00 Temperature Pulse Rate 72 69 Respiratory Rate Blood Pressure Pulse Oximetry 99 Oxygen Delivery Nasal Cannula Oxygen Flow Rate 2 02/08/22 05:51 02/08/22 08:50 02/08/22 08:00 Temperature 36.4 C Pulse Rate 67 67 Respiratory Rate 16 Blood Pressure 155/58 H Pulse Oximetry 98 93 Oxygen Delivery Room Air Oxygen Flow Rate 02/08/22 12:00 Temperature Pulse Rate Respiratory Rate Blood Pressure Pulse Oximetry 94 Oxygen Delivery Oxygen Flow Rate Intake/Output Intake/Output: Intake & Output 02/05/22 02/06/22 02/07/22 02/08/22 23:59 23:59 23:59 23:59 Intake Total 800 1090 Output Total 3000 Balance -2200 1090 Meds/Results Medications: Active Medications Generic Name Dose Route Start Last Admin Trade Name Freq PRN Reason Stop Dose Admin Acetaminophen 1,000 mg 02/07/22 01:34 Acetaminophen 500 Mg Tablet PO Q6H PRN Pain Albuterol 2 puff 02/07/22 01:34 Albuterol Sulfate (*Sp) Aerosol 1 Puff INHALATION QID PRN shortness of breath or wheezing Apixaban 5 mg 02/07/22 09:00 02/08/22 08:50 Apixaban 5 Mg Tablet PO 5 mg Q12HR KEMI Administration Aspirin 81 mg 02/07/22 08:00 02/08/22 08:50 Aspirin 81 Mg Chewable Tablet PO 81 mg DAILY@0800 KEMI Administration Carvedilol 25 mg 02/07/22 08:00
== END 2022-02-08 14:44 | disposition home or self-care (01) ==
LOC: ANHED 20:01 → ANH3MEDSUR 22:06
PROVIDERS: Emergency Medicine; Admitting Provider Internal Medicine; Emergency Provider Preventive Medicine Aerospace Medicine; PCP Internal Medicine; Visit Provider Internal Medicine
DX: R06.00 Dyspnea, unspecified (principal); R50.9 Fever, unspecified; R07.89 Other chest pain; I12.0 Hypertensive chronic kidney disease with stage 5 chronic kidney disease or end stage renal disease; N18.6 End stage renal disease; E11.22 Type 2 diabetes mellitus with diabetic chronic kidney disease; D63.1 Anemia in chronic kidney disease; Z99.2 Dependence on renal dialysis; E11.42 Type 2 diabetes mellitus with diabetic polyneuropathy; E78.5 Hyperlipidemia, unspecified; M86.9 Osteomyelitis, unspecified; N25.0 Renal osteodystrophy; R09.02 Hypoxemia; J90 Pleural effusion, not elsewhere classified; Z95.820 Peripheral vascular angioplasty status with implants and grafts; I51.7 Cardiomegaly; J81.1 Chronic pulmonary edema; E87.70 Fluid overload, unspecified; I45.2 Bifascicular block; Z20.822 Contact with and (suspected) exposure to COVID-19; Z89.022 Acquired absence of left finger(s); Z89.611 Acquired absence of right leg above knee; Z89.512 Acquired absence of left leg below knee; Z95.1 Presence of aortocoronary bypass graft; I25.10 Atherosclerotic heart disease of native coronary artery without angina pectoris; E11.21 Type 2 diabetes mellitus with diabetic nephropathy; E11.319 Type 2 diabetes mellitus with unspecified diabetic retinopathy without macular edema; F17.210 Nicotine dependence, cigarettes, uncomplicated; Z79.4 Long term (current) use of insulin; Z79.01 Long term (current) use of anticoagulants; Z79.1 Long term (current) use of non-steroidal anti-inflammatories (NSAID); Z79.51 Long term (current) use of inhaled steroids; Z79.82 Long term (current) use of aspirin; Z79.899 Other long term (current) drug therapy
CPT/HCPCS: 36415; 36600; 70450; 71045; 71046; 80053; 82803; 82805; 82948; 84100; 84484; 85025; 93005; 96374; 96375; 96376; 99285; A9270; C9803; G0257; G0378; J1815; J1940; J7030; Q5105; U0003; U0005

== ENCOUNTER 2022-02-28 06:31 | Inpatient (IN) | payer MEDICARE, OTHER, SELFPAY ==
[2022-02-28] VITALS (30 sets, daily range): BP systolic 169–211; BP diastolic 32–92; PULSE 62–80; RESP 12–20; TEMP 36–36.8; O2SAT 95–100; BMI 31.9
--- NOTE | 2022-02-28 | ECHO_ITS ---
Patient Info Name: Tawana Prado Age: 71 years : 1950 Gender: Female Ht: 64 in Wt: 194 lbs BSA: 2.03 m2 BP: 181 / 58 mmHg Heart Rhythm: Sinus Rhythm Technical Quality: Fair Exam Date: 02/28/2022 2:11 PM Exam Location: [facility] Pulmonary Patient Status: Outpatient Admit Date: 02/28/2022 Staff Ordering Physician: Noé Calzada MD Industrial Hygiene Technician: Pinky Angulo RDCS Attending Provider: Karlene Cortes DO Referring Physician: Zheng GRAHAM; Exam Type: CA echo doppler color flow Study Info Indications R07.9 - Chest pain, unspecified Complete two-dimensional, color flow and Doppler transthoracic echocardiogram is performed. Summary 1. Technically difficult study. 2. Left ventricular systolic function is normal, estimated at 55-60%. 3. There is mildly increased left ventricular wall thickness. Left Ventricle Left ventricular systolic function is normal, estimated at 55-60%. There is mildly increased left ventricular wall thickness. Right Ventricle Right ventricular chamber dimension is normal. Right ventricular systolic function is normal. Left Atria Left atrial chamber dimension is normal. Right Atria Right atrial chamber dimension is normal. Aortic Valve The aortic valve is not well visualized. There is no aortic valve stenosis. There is no aortic valve regurgitation. Pulmonic Valve The pulmonic valve is not well visualized. Mitral Valve The mitral valve has normal leaflets. There is no mitral valve stenosis. There is mild mitral valve regurgitation. Tricuspid Valve The tricuspid valve leaflets are not well visualized. There is trace tricuspid valve regurgitation. Pericardium/Pleural There is no pericardial effusion. Aorta The aortic root size at the sinus of Valsalva is normal. Left Ventricular Outflow Tract Name Value Normal LVOT 2D LVOT Diameter 1.9 cm LVOT Doppler LVOT Peak Gradient 2 mmHg LVOT Mean Gradient 1 mmHg LVOT VTI 21 cm LVOT VTI/AV VTI Ratio 0.5 LVOT Stroke Volume 57 ml LVOT CO 3.7 l/min LVOT CI 1.8 l/min/m2 Pulmonic Valve Name Value Normal RVOT Doppler RVOT Peak Gradient 2 mmHg PV Doppler PV Peak Gradient 4 mmHg Mitral Valve Name Value Normal MV Doppler MV Peak Gradient 10 mmHg
--- NOTE | ~2022-02-28 | NM_ITS ---
EXAMINATION: NM guevara stress w perfusion DATE: 03/01/2022 10:03 INDICATION: Chest pain. TECHNIQUE: Rest images were obtained following intravenous administration of 10.5 mCi Tc99m tetrofosm in (Myoview). The patient was infused intravenously with Lexiscan (regadenoson). Then, 33 mCi Tc99m t etrofosmin (Myoview) was administered intravenously, and stress images were obtained. Data was recons tructed into short axis and horizontal and vertical long axis SPECT images. Gated SPECT images were a lso obtained. COMPARISON: None. FINDINGS: There is no definite reversible or fixed perfusion abnormality to suggest ischemia or infar ction. There is no segmental wall motion abnormality. Left ventricular ejection fraction measures 5 6%. IMPRESSION: 1. No definite ischemia or infarct. 2. Normal left ventricular ejection fraction measuring 56%. Reviewed, dictated and finalized at location A.
--- NOTE | ~2022-02-28 | XR_ITS ---
EXAMINATION: XR chest 2V DATE: 02/28/2022 06:54 INDICATION: Chest pain. TECHNIQUE: Frontal and lateral views of the chest were obtained. COMPARISON: Chest single view 02/08/2022, chest 2 views 02/06/2022 FINDINGS: There is mild atelectasis in right middle lower lung zones. No pleural effusion or pneumoth orax. Cardiomegaly is noted. Median sternotomy fixation and mediastinal surgical clips are seen, like ly from prior coronary artery bypass grafting. A right internal jugular central venous catheter is se en with tip in the right atrium. There is mild chronic anterior wedging of multiple thoracic vertebra l bodies. IMPRESSION: 1. Mild atelectasis in right mid and lower lung zones. 2. Cardiomegaly. Reviewed, dictated and finalized at location A.
--- NOTE | 2022-02-28 06:31 | ECG_ITS ---
Measurements Intervals [place] Rate: 63 P: 45 [place]: 193 QRS: -79 QRSD: 156 T: 60 QT: 466 QTc: 480 Interpretive Statements SINUS RHYTHM RIGHT BUNDLE BRANCH BLOCK LEFT ANTERIOR FASCICULAR BLOCK ABNORMAL ECG COMPARED TO ECG 02/07/2022 17:39:10 LEFT ANTERIOR FASCICULAR BLOCK NOW PRESENT Electronically Signed On 02-28-2022 7:06:11 CDT by Fito Mcintosh D.O.
--- NOTE | 2022-02-28 07:07 | ED.CHESTPAIN ---
HPI - Chest Pain General Chief Complaint: Chest Pain Stated Complaint: chest pain Time Seen by Provider: 02/28/22 07:02 Source: RN notes reviewed History of Present Illness HPI narrative: Patient presents emergency department from home for chest pain. Patient states pain began upon awaking this morning the pain was across the lower mid chest and was described as a tightness in nature. Patient states she felt mildly short of breath with the pain. Patient states the pain is resolved at this time she denies any fevers or chills abdominal pain nausea or vomiting she states that she is a dialysis patient and gets dialysis Saturday history of dialysis today. Patient states she does have a history of cardiac history with a stent in place Related Data Home Medications Medication Instructions Recorded Confirmed apixaban 5 mg tablet (Eliquis) 5 mg PO BID 11/03/19 02/06/22 carvedilol 25 mg tablet 25 mg PO BID 11/03/19 02/06/22 insulin degludec 100 unit/mL 32 unit subcut HS 11/03/19 02/06/22 subcutaneous solution (Tresiba U-100 Insulin) pravastatin 40 mg tablet 40 mg PO HS 11/03/19 02/06/22 acetaminophen 500 mg capsule 1,000 mg PO Q6H PRN Pain 02/11/20 02/06/22 sertraline 25 mg tablet 25 mg PO QAM 02/11/20 02/06/22 gabapentin 400 mg capsule 400 mg PO TID 10/09/21 02/06/22 losartan 100 mg tablet 100 mg PO [id number] 10/09/21 02/06/22 nifedipine 30 mg tablet,extended 30 mg PO Q12H 10/09/21 02/06/22 release cetirizine 10 mg tablet 10 mg PO 1XD 02/06/22 02/06/22 Allergies Allergy/AdvReac Type Severity Reaction Status Date / Time No Known Allergies Allergy Verified 10/09/21 07:17 Review of Systems Review of Systems: Gen.: Denies fevers or chills ENT: Denies congestion Respiratory: Reports shortness of breath CV: See HPI GI: Denies abdominal pain nausea, emesis or diarrhea reports chronic renal failure dialysis Musculoskeletal: Denies back pain or muscle pain Neuro: Denies numbness, tingling, weakness or focal weakness Skin: Denies rash Except as documented, all other systems reviewed and negative PMFSH Past Medical History Medical History Arterial vascular disease Chronic anemia Coronary artery disease Digital arterial occlusive disease End-stage renal disease on hemodialysis Saturday, Saturday, Saturday. 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 Hemoglobin A1c was 6.8% in February 2020. Osteomyelitis Osteomyelitis of right tibia Renal osteodystrophy Volume overload Surgical History Surgical History Amputation of right forefoot :Right 4th and 5th ray amputation in 04/2017. :Right foot transmetatarsal amputation with partial fasciotomy due to wet gangrene, osteomyelitis, and necrotizing fasciitis in May 2017. 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 History of below-knee amputation of both lower extremities Left [id number] amputation in 2017. Right [id number] amputation in 02/2020. History of carpal tunnel release History of coronary artery bypass graft History of right above knee amputation (~05/12/20) History of right below knee amputation (~02/2020) History of spinal fusion History of surgical procedure on eye proper using laser Related to diabetic retinopathy. History of vascular surgery Right lower extremity stents in March 2017. Left lower extremity stent in 2014. Family History Family History Mother Diabetes mellitus Father Lung cancer Social History Social History Social History: Surrogate decision maker: Hunter Prado, spouse. Code status: Full code. Smoking packs per
[2022-02-28 07:09] LABS: Basophils Percent Auto 0.5 % (0.2-1.2); Eosinophils Absolute Auto 0.4 K/mm3 (0-0.3); Eosinophils Percent Auto 6.2 % (0-4.4); Hematocrit 35.8 % (37.0-47.0); Hemoglobin 11.3 g/dL (12.0-15.0); Immature Granulocyte Absolute 0.01 K/mm3 (0.00-0.031); Immature Granulocyte Percent A 0.2 % (0-0.5); Lymphocytes Absolute Auto 1.25 K/mm3 (0.9-3.2); Lymphocytes Percent Auto 21.4 % (18.3-44.2); Mean Corpuscular HGB Conc 31.6 g/dl (32-36); Mean Corpuscular Hemoglobin 31.8 pg (26-34); Mean Corpuscular Volume 100.8 fl (80-100); Monocytes Absolute Auto 0.4 K/mm3 (0.1-0.6); Monocytes Percent Auto 6.3 % (2.6-8.5); Neutrophils Absolute Auto 3.8 K/mm3 (1.3-6.7); Neutrophils Percent Auto 65.4 % (45.5-73.1); Platelet Count Result 101 k/mm3 (150-375); Red Blood Count 3.55 M/mm3 (4.2-5.4); White Blood Count 5.8 K/mm3 (4.5-10.0)
[2022-02-28 07:18] LABS: INR 1.3; Partial Thromboplastin Time 36.4 SECONDS (22.3-36.8)
[2022-02-28 07:20] LABS: Alanine Aminotransferase 14 U/L (6-35); Albumin Level 3.2 g/dL (3.5-5.1); Alkaline Phosphatase 208 U/L (38-126); Anion Gap 9 mmol/L (8-16); Aspartate Amino Transferase 18 U/L (14-36); Bilirubin,Total 0.3 mg/dL (0.2-1.3); Blood Urea Nitrogen 47 mg/dL (7-17); Calcium 7.4 mg/dL (8.4-10.2); Carbon Dioxide 24 mmol/L (22-30); Chloride 104 mmol/L (98-107); Estimated CRCL calculation 9 ml/min; Estimated Glomerular Filt Rate 8; Glucose 252 mg/dL (65-110); Lipase 388 U/L (23-300); Potassium 4.7 mmol/L (3.4-5.0); Sodium 137 mmol/L (137-145)
[2022-02-28 07:31] LABS: Troponin I < 0.012 ng/mL (0.000-0.034)
--- NOTE | 2022-02-28 09:01 | PM.IMHP ---
H&P: HPI History of Present Illness Date/Time: 02/28/22 09:01 Chief Complaint: Dyspnea Narrative: 71-year-old female with past medical history significant for end-stage renal disease on hemodialysis as well as coronary disease with history of CABG x4 vessels is presenting with shortness of breath described as a chest tightness and inability to take a deep breath. No nausea, vomiting or diarrhea. No fevers or chills. No recent travel. Cardiology was consulted from the ER. ECG showed right bundle branch block with new left anterior fascicular block. Troponins negative x2. Review of Systems Review of Systems: 12 point review of systems was assessed and was negative except as noted in the HPI [facility] Past Medical History Medical History Arterial vascular disease Chronic anemia Coronary artery disease Digital arterial occlusive disease End-stage renal disease on hemodialysis Saturday, Saturday, Saturday. 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 Hemoglobin A1c was 6.8% in February 2020. Osteomyelitis Osteomyelitis of right tibia Renal osteodystrophy Volume overload Surgical History Surgical History Amputation of right forefoot :Right 4th and 5th ray amputation in 04/2017. :Right foot transmetatarsal amputation with partial fasciotomy due to wet gangrene, osteomyelitis, and necrotizing fasciitis in May 2017. 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 History of below-knee amputation of both lower extremities Left [id number] amputation in 2017. Right [id number]-[id number] amputation in 02/2020. History of carpal tunnel release History of coronary artery bypass graft History of right above knee amputation (~05/12/20) History of right below knee amputation (~02/2020) History of spinal fusion History of surgical procedure on eye proper using laser Related to diabetic retinopathy. History of vascular surgery Right lower extremity stents in March 2017. Left lower extremity stent in 2014. Family History Family History Mother Diabetes mellitus Father Lung cancer Social History Social History Social History: Surrogate decision maker: Hunter Prado, spouse. Code status: Full code. Smoking packs per day: 0.3 Smoking cigarettes per day: 6.0 Years smoked: 60 Smoking pack-years: 18.00 Smoking status: Current every day smoker Tobacco type: cigarettes Second hand tobacco smoke exposure: Yes Smoking end date: 06/03/15 Alcohol intake: current Drinks per week: 1 Alcohol use details: Previous social drinker. Substance use: never Substance use type: does not use Additional living arrangements comments: Lives with her in [place]. Gender identity (if verbalized by the patient): Female Spiritual care concerns: No Meds Home Medications and Allergies Home Medications Medication Instructions Recorded Confirmed Type apixaban 5 mg tablet (Eliquis) 5 mg PO BID 11/03/19 02/28/22 History carvedilol 25 mg tablet 25 mg PO BID 11/03/19 02/28/22 History insulin degludec 100 unit/mL 32 unit subcut HS 11/03/19 02/28/22 History subcutaneous solution (Tresiba U-100 Insulin) pravastatin 40 mg tablet 40 mg PO HS 11/03/19 02/28/22 History acetaminophen 500 mg capsule 1,000 mg PO Q6H PRN Pain 02/11/20 02/28/22 History sertraline 25 mg tablet 25 mg PO QAM 02/11/20 02/28/22 History albuterol sulfate 90 mcg/actuation 2 puff inhalation QID PRN 09/15/21 02/28/22 Rx aerosol inhaler shortness of breath or wheezing #6.7 grams gabapentin 400 mg capsule 400 mg PO TID 10/09/21 02/28/22 History losa
--- NOTE | 2022-02-28 09:14 | PM.CNCAR ---
Assessment and Plan Assessment and plan (1) Chest pain: Code(s): R07.9 - Chest pain, unspecified Status: Acute Assessment and Plan: Chest pain is probably cardiac. May be though related to marked hypertension or underlying CAD or combination of both. Continue rule out myocardial infarction with serial cardiac enzymes. Continue her carvedilol, losartan, nifedipine, pravastatin. Medical reconciliation says she is on apixaban I am sending this is because of her significant peripheral vascular disease albeit not confirmed. 2D echocardiogram with Doppler will be ordered and will be reviewed. If she rules out for myocardial infarction, will proceed with Lexiscan stress test tomorrow. P.r.n. nitroglycerin to be given for chest pain (2) ESRD (end stage renal disease): Code(s): N18.6 - End stage renal disease Status: Acute Assessment and Plan: Will need dialysis today (3) Coronary artery disease: Code(s): I25.10 - Atherosclerotic heart disease of [place] coronary artery without angina pectoris Status: Acute Assessment and Plan: As detailed above. Continue current meds. (4) Hypertension: Qualifiers: Hypertension type: renovascular hypertension Qualified Code(s): I15.0 - Renovascular hypertension Code(s): I10 - Essential (primary) hypertension Status: Chronic Assessment and Plan: Resume home medications. Will give a dose of IV hydralazine 10 mg now since her blood pressure is markedly elevated History of Present Illness History of Present Illness Consult date/time: 02/28/22 09:14 Requesting physician: oKle Dyson DO Consult reason: chest pain Reason For Visit: Chest Pain/Chronic Renal Failure Narrative: Date of service 02/28/2022 Reason consultation: Chest pain Requesting physician: Dr. Dyson History patient is a 71-year-old female who has a history of coronary disease in CABG about 4 years ago. She also has significant vascular disease, end-stage renal disease, hypertension and multiple other health concerns. She woke up this morning and was brushing her teeth and she felt some tightness in her chest. EMS was called and she was given 2 sprays of sublingual nitroglycerin which did seem to help her pain. Her blood pressure was markedly elevated. Blood pressure is around 200 systolic. She was also short of breath. She denies any recent syncope or presyncope. No swelling. She does have a cough and has some PND whenever she does cough at times. No palpitations. Currently has no pain. Initial troponins are negative and EKG shows no acute ST or T-wave abnormalities. Review of Systems Review of Systems: All systems reviewed & are unremarkable except as noted in HPI and below Constitutional: Constitutional: Denies body ache(s) Eyes: Eyes: Denies blurry vision ENT: Reports Normal hearing present Cardiovascular: Cardiovascular: Reports chest pain Respiratory: Respiratory: Reports dyspnea Gastrointestinal: Gastrointestinal: Denies abdominal pain Genitourinary: Genitourinary: Denies nocturia Musculoskeletal: Musculoskeletal: Denies back pain Integumentary/Breasts: Skin/Breast: Denies dry skin Neurologic: Denies headache(s) Psychiatric: Psychiatric: Denies confusion Endocrine: Endocrine: Denies fatigue Hematologic/Lymphatic: Hematologic/Lymphatic: Denies easy bleeding Allergic/Immunologic: Allergic/Immunologic: Denies GI upset with certain foods PMFSH Past Medical History Medical History Arterial vascular disease Chronic anemia Coronary artery disease Digital arterial occlusive disease End-stage renal disease on hemodialysis Saturday, Saturday, Saturday. 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 Hemoglobin A1c was 6.8% in February 2020. Osteomyelitis Osteom
--- NOTE | 2022-02-28 09:20 | ADMGEN ---
This patient, Tawana Prado, was admitted to IMU Room 207-01. Patient/family oriented to hospital policies and general routines including ID bracelet, bed and alarms, visiting hours, pain management, procedures, bathroom and other care routines, personal items, smoking policy, room service/diet, and visiting hours. Information on how to activate the Rapid Response Team has been discussed. Patient/Family are encouraged to report perceived risks to care and to ask questions if they do not understand what they are told or what they should do.
[2022-02-28 09:30] LABS: Glucose Point of Care 272 mg/dl (65-105)
[2022-02-28] MEDS: hydrALAZINE HCL 20 MG/ML VIAL 10 MG IV PUSH (09:32)
[2022-02-28 10:12] LABS: Troponin I < 0.012 ng/mL (0.000-0.034)
[2022-02-28 12:50] LABS: Glucose Point of Care 222 mg/dl (65-105)
[2022-02-28 13:21] LABS: Troponin I < 0.012 ng/mL (0.000-0.034)
[2022-02-28 13:32] LABS: Hemoglobin A1C 6.8 % (<5.7)
--- NOTE | 2022-02-28 15:15 | PM.CNNEP ---
Assessment and Plan Assessment and plan (1) End stage renal disease: Code(s): N18.6 - End stage renal disease Status: Chronic Assessment and Plan: HD treatment today and resume M/W/F dialysis schedule follow electrolytes, volume status, and clearance (2) Chest pain: Code(s): R07.9 - Chest pain, unspecified Status: Acute Assessment and Plan: as noted on admission follow cardiac enzymes continue BP medications and statin Cardiology following with recommendations noted follow up on Echo possible stess test tomorrow (3) Hypertension: Qualifiers: Hypertension type: renovascular hypertension Qualified Code(s): I15.0 - Renovascular hypertension Code(s): I10 - Essential (primary) hypertension Status: Chronic Assessment and Plan: still quite elevated at this time resume home medications may improve with dialysis PRN IV hydralazine (4) Anemia: Code(s): D64.9 - Anemia, unspecified Status: Chronic Assessment and Plan: due to ESRD at goal Epogen with HD follow trend of H/H (5) Insulin dependent type 2 diabetes mellitus: Code(s): E11.9 - Type 2 diabetes mellitus without complications; Z79.4 - jail (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 History of Present Illness Reason for Consult Consult date: 02/28/22 Reason for consult: end stage renal disease Chief Complaint Chief complaint: Chest Pain/Chronic Renal Failure History of Present Illness Narrative: The patient is a 71-year-old female with a past medical history as outlined below who presented to [facility] Emergency room for further evaluation of chest pain. The patient woke up this morning and felt some chest tightness while brushing her teeth. She called EMS for further assistance and was given sublingual nitroglycerin which helped alleviate this pain. Her blood pressure was reported quite high in the 200 systolic range. Associated symptoms included short of breath as well. but denies nausea, vomiting, palpitations or lightheadedness. She was subsequently transferred to the ER. Work-up and evaluation in the ER demonstrated the patient to be hemodynamically stable with the exception of her elevated blood pressure. She denied any chest pain on arrival to the ER. Routine blood tests were consistent with her known history of end stage renal disease. Initial troponins were negative and her EKG shows no acute ST or T-wave abnormalities. Given her constellation of symptoms in conjunction with her history and laboratory findings, she was admitted to the hospital for furtehr evaluation. Renal consultation was requested due to her end-stage renal disease. The patient normally dialyzes on a Saturday, Saturday, Saturday dialysis schedule at [facility] under the care of Dr. Clarke. She usually does reasonably well with her dialysis treatments although her compliance with dialysis in general is not very good as noted by her recurrent admissions here for volume overload and hyperkalemia. Per my discussion with her outpatient dialysis unit, she misses quite a few treatments in a month. I am not sure when her last dialysis treatment was but she has no critical electroltyes and her volume status is relatively stable. Currently, at the time my visit, she is tolerating her hemodialysis treatment (seen on HD at 3:10PM) and she does not appear to be in acute distress. Review of Systems Review of Systems: As per HPI. [facility] Past Medical History Medical History Arterial vascular disease Chronic anemia Coronary artery disease Digital arterial occlusive disease End-stage renal disease on hemodialysis Saturday, Saturday, Saturday. Hyperlipidemia Hypertension Insulin dependent type 2 diabetes me
[2022-02-28 20:26] LABS: Glucose Point of Care 148 mg/dl (65-105)
[2022-02-28 20:46] LABS: Hepatitis B Surface Antigen Negative (Negative)
[2022-02-28 20:51] LABS: Hepatitis B Core IgM Result Negative (Negative)
[2022-02-28 21:11] LABS: Hepatitis B Surface Anti Res Positive
[2022-03-01] VITALS (21 sets, daily range): BP systolic 163–216; BP diastolic 37–60; PULSE 62–91; RESP 14–18; TEMP 36.1–36.9; O2SAT 96–100
--- NOTE | 2022-03-01 | EST_ITS ---
Patient Info Name: Tawana Prado Age: 71 years : 1950 Gender: Female Ht: 64 in Wt: 186 lbs BSA: 1.98 m2 Exam Date: 03/01/2022 8:32 AM Exam Location: [facility] Stress Patient Status: Inpatient Admit Date: 02/28/2022 Staff Ordering Physician: Basil Bentley Attending Provider: Karlene Cortes DO Exercise Technologist: Raquel Carnes RDCS Nurse: BASIL BENTLEY NP Exam Type: CA stress guevara w NM Study Info Indications R07.9 - Chest pain, unspecified A regadenoson stress test was performed. Summary 1. Sinus rhythm with right bundle branch block at baseline and with Lexiscan. 2. No ST/T wave changes with Lexiscan. 3. Occasional PACs. 4. Please correlate with nuclear medicine images, reported separately. Protocol: Lexiscan Stress ECG Details Stage: REST Duration (min): 3 min : 11 sec HR (bpm): 61 SBP (mmHg): 244 DBP (mmHg): 73 Stage: REST Duration (min): 9 min : 7 sec HR (bpm): 80 SBP (mmHg): 190 DBP (mmHg): 88 Stage: STAGE 1 Duration (min): 1 min : 0 sec HR (bpm): 87 SBP (mmHg): 190 DBP (mmHg): 88 Stage: RECOVERY Duration (min): 1 min : 0 sec HR (bpm): 94 SBP (mmHg): 190 DBP (mmHg): 88 Stage: RECOVERY Duration (min): 2 min : 0 sec HR (bpm): 88 SBP (mmHg): 190 DBP (mmHg): 88 Stage: RECOVERY Duration (min): 3 min : 0 sec HR (bpm): 90 SBP (mmHg): 190 DBP (mmHg): 88 Stage: RECOVERY Duration (min): 4 min : 0 sec HR (bpm): 88 SBP (mmHg): 190 DBP (mmHg): 88 Stage: RECOVERY Duration (min): 4 min : 46 sec HR (bpm): 89 SBP (mmHg): 186 DBP (mmHg): 76 Rest HR: 80 bpm Peak HR: 95 bpm Rest Sys BP: 242 mmHg Peak Sys BP: 186 mmHg Max Pred HR: 147 bpm % Max Pred HR: 65 % Target HR: 125 bpm Max RPP: 17,670 bpm*mmHg Total Time: 1 min : 0 sec Rest Engel BP: 70 mmHg Peak Engel BP: 76 mmHg Total Dose: 0.4 mg Resting ECG Sinus rhythm. Right bundle branch block. Stress ECG SInus rhythm. Right bundle branch block. No ST/T wave changes with Lexiscan. Arrhythmias Occasional PACs. Report Signatures
[2022-03-01] MEDS: carvediloL 25 MG TABLET PO ×2 (04:52→21:45)
[2022-03-01] MEDS: NIFEdipine 30 MG TAB.ER.24 PO ×2 (04:52→21:45)
[2022-03-01] MEDS: LOSARTAN POTASSIUM 100 MG TABLET PO (04:52)
--- NOTE | 2022-03-01 07:33 | PM.IMPN ---
Progress Note: A&P Assessment and Plan (1) Chest pain: Code(s): R07.9 - Chest pain, unspecified Status: Acute Assessment and Plan: Stress test was normal, Cardiology signed off Differential diagnosis includes costochondritis, other musculoskeletal allergy and anxiety Will trial Ativan 1 mg IV and monitor, also ordered albuterol treatment No sign of COPD exacerbation or pleural etiology, do not suspect PE at this time, could consider V/Q scan (2) ESRD (end stage renal disease): Code(s): N18.6 - End stage renal disease Status: Acute Assessment and Plan: Appreciate nephrology consultation, received dialysis (3) History of left below knee amputation: Code(s): Z89.512 - Acquired absence of left leg below knee Status: Acute (4) Coronary artery disease: Code(s): I25.10 - Atherosclerotic heart disease of [place] coronary artery without angina pectoris Status: Acute (5) Status post above-knee amputation of right lower extremity: Code(s): Z89.611 - Acquired absence of right leg above knee Status: Acute (6) Hypertension: Qualifiers: Hypertension type: renovascular hypertension Qualified Code(s): I15.0 - Renovascular hypertension Code(s): I10 - Essential (primary) hypertension Status: Chronic Assessment and Plan: Continue home meds, still somewhat elevated, will defer to Cardiology for further medication (7) Insulin dependent type 2 diabetes mellitus: Code(s): E11.9 - Type 2 diabetes mellitus without complications; Z79.4 - snf (current) use of insulin Status: Chronic Assessment and Plan: Check A1c, continue sliding scale with Accu-Cheks Plan DVT prophylaxis with SCDs GI prophylaxis not indicated Code status full code Subjective Date/time seen: 03/01/22 07:33 Interval history: Patient still with some dyspnea on occasion with inability to take a deep breath. No overnight events noted. No chest pain or shortness of breath. No nausea, vomiting or diarrhea. No fevers or chills. Review of Systems Review of Systems: 12 point review of systems was assessed and was negative except as noted in the HPI Exam Narrative: General: No acute distress, alert and oriented per baseline HEENT: Atraumatic, normocephalic, mucous membranes moist CV: Regular rate and rhythm, S1, S2 Lungs: Clear to auscultation bilaterally, no rales or crackles noted, no wheezes, good air entry Abdomen: Soft, nontender, nondistended Extremities: Normal to inspection Skin: No rashes noted, no lesions or wounds seen Psych: Euthymic, normal affect Objective Data Vital Signs Vital Signs: Vital Signs - 24 hr 02/28/22 07:47 02/28/22 08:02 02/28/22 08:17 Temperature Pulse Rate 65 65 66 Respiratory Rate 13 13 13 Blood Pressure 198/62 H 205/61 H 208/67 H Pulse Oximetry 97 96 98 Oxygen Delivery 02/28/22 08:32 02/28/22 09:16 02/28/22 09:57 Temperature 97.9 F Pulse Rate 66 65 Respiratory Rate 12 16 Blood Pressure 197/61 H 200/54 H 181/58 H Pulse Oximetry 95 100 Oxygen Delivery 02/28/22 10:00 02/28/22 12:00 02/28/22 12:00 Temperature 97.2 F L Pulse Rate 65 68 64 Respiratory Rate 16 Blood Pressure 197/48 H Pulse Oximetry 100 Oxygen Delivery 02/28/22 10:00 02/28/22 12:43 02/28/22 16:00 Temperature Pulse Rate Respiratory Rate Blood Pressure Pulse Oximetry 97 Oxygen Delivery Room Air Room Air Room Air 02/28/22 15:00 02/28/22 15:18 02/28/22 15:30 Temperature 97.2 F L Pulse Rate 78 70 70 Respiratory Rate 20 Blood Pressure 191/70 H 201/69 H 196/74 H Pulse Oximetry 95 Oxygen Delivery 02/28/22 15:45 02/28/22 16:00 02/28/22 16:15 Temperature Pulse Rate 80 74 80 Respiratory Rate Blood Pressure 211/80 H 180/70 H 199/71 H Pulse Oximetry Oxygen Delivery 02/28/22 16:30 02/28/22 16:45 02/28/22 17:00 Temperature Pulse Rate 76
--- NOTE | 2022-03-01 08:56 | PM.PNCARD ---
Progress Note: A&P Assessment and Plan (1) Chest pain: Code(s): R07.9 - Chest pain, unspecified Status: Acute Assessment and Plan: Chest pain is probably cardiac. May be though related to marked hypertension or underlying CAD or combination of both. Ruled out for NH with negative serial cardiac enzymes Continue carvedilol, losartan, nifedipine, pravastatin. 2D echocardiogram with Doppler pending P.r.n. nitroglycerin to be given for chest pain Lexiscan stress test performed this morning. Will leave any further recommendations when results are available. (2) ESRD (end stage renal disease): Code(s): N18.6 - End stage renal disease Status: Acute Assessment and Plan: On dialysis (3) Coronary artery disease: Code(s): I25.10 - Atherosclerotic heart disease of [place] coronary artery without angina pectoris Status: Acute Assessment and Plan: Continue current medical therapy (4) Hypertension: Qualifiers: Hypertension type: renovascular hypertension Qualified Code(s): I15.0 - Renovascular hypertension Code(s): I10 - Essential (primary) hypertension Status: Chronic Assessment and Plan: Resume home medications. Subjective Date/time seen: 03/01/22 08:56 Cardiology follow up for chest pain Complaining of persistent productive cough. No chest pain, shortness of breath. Review of Systems Review of Systems: All systems reviewed & are unremarkable except as noted in HPI and below Constitutional: Constitutional: Denies body ache(s), Denies fatigue and Denies headache(s) Eyes: Eyes: Denies blurry vision ENT: Reports Normal hearing present and Denies headache(s) Cardiovascular: Cardiovascular: Reports chest pain and Reports dyspnea Respiratory: Respiratory: Reports dyspnea Gastrointestinal: Gastrointestinal: Denies abdominal pain Genitourinary: Genitourinary: Denies nocturia Musculoskeletal: Musculoskeletal: Denies back pain Integumentary/Breasts: Skin/Breast: Denies dry skin Neurologic: Reports Normal hearing present, Denies confusion and Denies headache(s) Psychiatric: Psychiatric: Denies confusion Endocrine: Endocrine: Denies fatigue Hematologic/Lymphatic: Hematologic/Lymphatic: Denies easy bleeding Allergic/Immunologic: Allergic/Immunologic: Denies GI upset with certain foods Exam Narrative: Alert oriented. Appears stated age Const: General: comfortable and no acute distress; No confusion Orientation/consciousness: No confusion HENMT: General nose exam: Normal nares present Eyes: Sclera: sclerae normal Neck: Neck: supple Carotids: no bruits Chest: Other: No reproducible chest wall pain to palpation. Previous sternotomy incision noted Resp: Effort & Inspection: normal respiratory effort Auscultation: diminished lung sounds Cardio: Rate: regular rate Rhythm: regular rhythm GI: Auscultation: normal bowel sounds Skin: General skin exam: normal color Neuro: General: No confusion Cranial nerves: Yes Normal hearing present Speech: normal speech Extrem: Other: Status post right AKA, left BKA. No upper extremity edema Psych: Affect: normal affect Objective Data Vital Signs Vital Signs: Vital Signs - 24 hr 02/28/22 09:16 02/28/22 09:57 02/28/22 10:00 Temperature 36.6 C Pulse Rate 65 65 Respiratory Rate 16 Blood Pressure 200/54 H 181/58 H Pulse Oximetry 100 Oxygen Delivery 02/28/22 12:00 02/28/22 12:00 02/28/22 10:00 Temperature 36.2 C L Pulse Rate 68 64 Respiratory Rate 16 Blood Pressure 197/48 H Pulse Oximetry 100 Oxygen Delivery Room Air 02/28/22 12:43 02/28/22 16:00 02/28/22 15:00 Temperature 36.2 C L Pulse Rate 78 Respiratory Rate 20 Blood Pressure 191/70 H Pulse Oximetry 97 95 Oxygen Delivery Room Air Room Air 02/28/22 15:18 02/28/22 15:30 02/28/22 15:45 Temperature Pulse Rate 70 70 80 Respiratory Rate Bloo
[2022-03-01 09:58] LABS: Glucose Point of Care 122 mg/dl (65-105)
--- NOTE | 2022-03-01 10:10 | P.PNNP_ITS ---
Progress Note: A&P Assessment and Plan (1) End stage renal disease: Code(s): N18.6 - End stage renal disease Status: Chronic Assessment and Plan: * HD tomorrow and continue M/W/F dialysis schedule * follow electrolytes, volume status, and clearance (2) Chest pain: Code(s): R07.9 - Chest pain, unspecified Status: Acute Assessment and Plan: * as noted on admission * trend of cardiac enzymes noted * continue BP medications and statin * Cardiology following with recommendations noted * follow up on Echo * stress test this AM (3) Hypertension: Qualifiers: Hypertension type: renovascular hypertension Qualified Code(s): I15.0 - Renovascular hypertension Code(s): I10 - Essential (primary) hypertension Status: Chronic Assessment and Plan: * still quite elevated at this time * resumed home medications * consider titration of nifedipine depending on trend of hemodynamics * however, heart already in the 60 - 70s * will add oral hydralazine * PRN IV hydralazine (4) Anemia: Code(s): D64.9 - Anemia, unspecified Status: Chronic Assessment and Plan: * due to ESRD * at goal * Epogen with HD * follow trend of H/H (5) Insulin dependent type 2 diabetes mellitus: Code(s): E11.9 - Type 2 diabetes mellitus without complications; Z79.4 - halfway (current) use of insulin Status: Chronic Assessment and Plan: * follow accuchecks * glycemic control Will continue to follow. Subjective Date/time seen: 03/01/22 10:10 Tolerated dialysis treatment yesterday without any issues or problems; no further chest pain reported; stress test done this AM (results pending); no other problems or events overnight or earlier this morning. Exam Narrative: General: WD/WN female in NAD Heart: normal S1 and S2; no rub Lungs: clear to auscultation Abdomen: soft, nontender, nondistended, positive bowel sounds Extremities: no cyanosis or clubbing; no edema; s/p left BKA and right AKA Skin: warm and dry Objective Data Vital Signs Vital Signs: Vital Signs Temp Pulse Resp BP Pulse Ox O2 Del Method 03/01/22 07:45 Room Air 03/01/22 08:00 63 03/01/22 06:00 65 03/01/22 06:28 171/45 H 03/01/22 04:00 62 03/01/22 04:00 96 Room Air 03/01/22 04:52 70 03/01/22 04:00 36.1 C L 63 16 216/48 H 97 03/01/22 04:03 200/60 H 03/01/22 02:00 70 03/01/22 00:00 66 02/28/22 23:42 36.7 C 65 14 197/59 H 98 02/28/22 22:00 67 02/28/22 20:00 65 02/28/22 20:00 36.2 C L 70 16 169/32 H 100 02/28/22 18:25 36.8 C 66 14 179/73 H 02/28/22 18:20 62 181/70 H 02/28/22 18:15 66 173/64 H 02/28/22 18:00 70 182/92 H 02/28/22 17:45 71 188/88 H 02/28/22 17:30 65 201/77 H 02/28/22 18:00 64 02/28/22 16:00 65 02/28/22 14:00 68 02/28/22 17:15 62 194/72 H 02/28/22 17:00 75 176/68 H 02/28/22 16:45 75 180/70 H 02/28/22 16:30 76 210/73 H 02/28/22 16:15 80 199/71 H 02/28/22 16:00 74 180/70 H 02/28/22 15:45 80 211/80 H
--- NOTE | 2022-03-01 10:10 | PM.PNNEP ---
Progress Note: A&P Assessment and Plan (1) End stage renal disease: Code(s): N18.6 - End stage renal disease Status: Chronic Assessment and Plan: HD tomorrow and continue M/W/F dialysis schedule follow electrolytes, volume status, and clearance (2) Chest pain: Code(s): R07.9 - Chest pain, unspecified Status: Acute Assessment and Plan: as noted on admission trend of cardiac enzymes noted continue BP medications and statin Cardiology following with recommendations noted follow up on Echo stress test this AM (3) Hypertension: Qualifiers: Hypertension type: renovascular hypertension Qualified Code(s): I15.0 - Renovascular hypertension Code(s): I10 - Essential (primary) hypertension Status: Chronic Assessment and Plan: still quite elevated at this time resumed home medications consider titration of nifedipine depending on trend of hemodynamics however, heart already in the 60 - 70s will add oral hydralazine PRN IV hydralazine (4) Anemia: Code(s): D64.9 - Anemia, unspecified Status: Chronic Assessment and Plan: due to ESRD at goal Epogen with HD follow trend of H/H (5) Insulin dependent type 2 diabetes mellitus: Code(s): E11.9 - Type 2 diabetes mellitus without complications; Z79.4 - 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 Subjective Date/time seen: 03/01/22 10:10 Tolerated dialysis treatment yesterday without any issues or problems; no further chest pain reported; stress test done this AM (results pending); no other problems or events overnight or earlier this morning. Exam Narrative: General: WD/WN female in NAD Heart: normal S1 and S2; no rub Lungs: clear to auscultation Abdomen: soft, nontender, nondistended, positive bowel sounds Extremities: no cyanosis or clubbing; no edema; s/p left BKA and right AKA Skin: warm and dry Objective Data Vital Signs Vital Signs: Vital Signs Temp Pulse Resp BP Pulse Ox O2 Del Method 03/01/22 07:45 Room Air 03/01/22 08:00 63 03/01/22 06:00 65 03/01/22 06:28 171/45 H 03/01/22 04:00 62 03/01/22 04:00 96 Room Air 03/01/22 04:52 70 03/01/22 04:00 36.1 C L 63 16 216/48 H 97 03/01/22 04:03 200/60 H 03/01/22 02:00 70 03/01/22 00:00 66 02/28/22 23:42 36.7 C 65 14 197/59 H 98 02/28/22 22:00 67 02/28/22 20:00 65 02/28/22 20:00 36.2 C L 70 16 169/32 H 100 02/28/22 18:25 36.8 C 66 14 179/73 H 02/28/22 18:20 62 181/70 H 02/28/22 18:15 66 173/64 H 02/28/22 18:00 70 182/92 H 02/28/22 17:45 71 188/88 H 02/28/22 17:30 65 201/77 H 02/28/22 18:00 64 02/28/22 16:00 65 02/28/22 14:00 68 02/28/22 17:15 62 194/72 H 02/28/22 17:00 75 176/68 H 02/28/22 16:45 75 180/70 H 02/28/22 16:30 76 210/73 H 02/28/22 16:15 80 199/71 H 02/28/22 16:00 74 180/70 H 02/28/22 15:45 80 211/80 H 02/28/22 15:30 70 196/74 H 02/28/22 15:18 70 201/69 H 02/28/22 15:00 36.2 C L 78 20 191/70 H 95 02/28/22 16:00 97 Room Air 02/28/22 12:43 Room Air 02/28/22 12:00 36.2 C L 64 16 197/48 H 100 02/28/22 12:00 68 Intake/Output Intake/Output: Intake & Output 02/26/22 02/27/22 02/28/22 03/01/22 23:59 23:59 23:59 23:59 Intake Total 440 200 Output Total 2850 450 Balance -2410 -250 Meds/Results Medications: Active Medications Generic Name Dose Route Start Last Admin Trade Name Nba PRN Reason Stop Dose Admin Acetaminophen 1,000 mg 03/01/22 03:50 Acetaminophen 500 Mg Tablet PO Q6H PRN Pain Rated 1-3 Albuterol 2 puff 03/01/22 03:50 Albuterol Sulfate (*Sp) Aerosol 1 Puff INHALAT
[2022-03-01] MEDS: APIXABAN 5 MG TABLET PO ×2 (10:42→17:40)
[2022-03-01] MEDS: GABAPENTIN 400 MG CAPSULE PO ×3 (10:42→17:40)
[2022-03-01] MEDS: PANTOPRAZOLE 40 MG TABLET PO (10:42)
[2022-03-01] MEDS: SERTRALINE HCL 25 MG TABLET PO (10:42)
[2022-03-01] MEDS: LORATADINE 10 MG TABLET PO (10:42)
[2022-03-01] MEDS: ASPIRIN 81 MG CHEWABLE TABLET PO (10:44)
[2022-03-01] MEDS: hydrALAZINE HCL 20 MG/ML VIAL 10 MG IV PUSH (11:24)
[2022-03-01 12:28] LABS: Glucose Point of Care 142 mg/dl (65-105)
[2022-03-01] MEDS: INSULIN ASPART (*BKC) 100 UNITS/ML 8 UNITS SUB-Q ×2 (12:56→17:39)
--- NOTE | 2022-03-01 14:04 | PC.NURSE ---
On 03/01/22, the student, [Zonia Sam], provided care and [facility]. I have reviewed the student's documentation and agree with the findings.
[2022-03-01] MEDS: LORazepam INJ (*CRX) 2 MG/ML VIAL 1 MG IV PUSH (15:35)
[2022-03-01 16:46] LABS: Glucose Point of Care 105 mg/dl (65-105)
[2022-03-01 20:32] LABS: Glucose Point of Care 153 mg/dl (65-105)
[2022-03-01] MEDS: PRAVASTATIN SODIUM 20 MG TABLET 40 MG PO (21:45)
[2022-03-01] MEDS: INSULIN GLARGINE (*BKC) 100 UNITS/ML 32 UNITS SUB-Q (22:09)
[2022-03-02] VITALS (19 sets, daily range): BP systolic 128–192; BP diastolic 46–76; PULSE 66–73; RESP 16–20; TEMP 36–36.8; O2SAT 97
[2022-03-02 08:25] LABS: Glucose Point of Care 111 mg/dl (65-105)
--- NOTE | 2022-03-02 08:36 | PM.DS ---
DS: Admitting Diagnosis Discharge Date March 02, 2022 Admitting Diagnosis Chest pain DS: Discharge Diagnosis Discharge Diagnosis (1) Chest pain: Code(s): R07.9 - Chest pain, unspecified Status: Acute Assessment and Plan: Stress test was normal, Cardiology signed off Differential diagnosis includes costochondritis, other musculoskeletal allergy and anxiety Will trial Ativan 1 mg IV and monitor, also ordered albuterol treatment No sign of COPD exacerbation or pleural etiology, do not suspect PE at this time, could consider V/Q scan (2) ESRD (end stage renal disease): Code(s): N18.6 - End stage renal disease Status: Acute Assessment and Plan: Appreciate nephrology consultation, received dialysis (3) History of left below knee amputation: Code(s): Z89.512 - Acquired absence of left leg below knee Status: Acute (4) Coronary artery disease: Code(s): I25.10 - Atherosclerotic heart disease of [place] coronary artery without angina pectoris Status: Acute (5) Status post above-knee amputation of right lower extremity: Code(s): Z89.611 - Acquired absence of right leg above knee Status: Acute (6) Hypertension: Qualifiers: Hypertension type: renovascular hypertension Qualified Code(s): I15.0 - Renovascular hypertension Code(s): I10 - Essential (primary) hypertension Status: Chronic Assessment and Plan: Continue home meds, still somewhat elevated, will defer to Cardiology for further medication (7) Insulin dependent type 2 diabetes mellitus: Code(s): E11.9 - Type 2 diabetes mellitus without complications; Z79.4 - watermaster (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 No nausea, vomiting or diarrhea.? No fevers or chills. No recent travel. Cardiology was consulted from the ER.? ECG showed right bundle branch block with new left anterior fascicular block.? Troponins negative x2. Cardiology ordered a stress test and echo, both of which were within normal limits and they signed off. Nephrology was consulted for dialysis. Patient's symptoms completely resolved with Ativan. They were thought to be secondary to anxiety versus costochondritis. She was discharged in good condition with close outpatient follow-up. Time Spent with Patient Time attestation: Total time spent providing and/or coordinating discharge services: Exam Narrative: General: No acute distress, alert and oriented per baseline HEENT: Atraumatic, normocephalic, mucous membranes moist CV: Regular rate and rhythm, S1, S2 Lungs: Clear to auscultation bilaterally, no rales or crackles noted, no wheezes, good air entry Abdomen: Soft, nontender, nondistended Extremities: Normal to inspection Skin: No rashes noted, no lesions or wounds seen Psych: Euthymic, normal affect DS: Data Data Completed and Pending Labs on day of discharge: Labs from last 24 hours 03/02/22 03/01/22 03/01/22 08:00 19:54 16:43 POC Capillary Glucose 111 H 153 H 105 03/01/22 03/01/22 12:26 09:54 POC Capillary Glucose 142 H 122 H Discharge Plan Discharge Attending physician on discharge: Karlene Cortes Consulting providers: Noé Calzada ; Elio Pereira Discharging Clinician: Karlene Cortes Patient Disposition: Home, Self-Care Activity: as tolerated Diet: as tolerated Patient Instructions: Hydralazine (By mouth), Cardiac Stress Test (DC), Transthora
[2022-03-02 09:58] LABS: Hematocrit 36.3 % (37.0-47.0); Hemoglobin 11.6 g/dL (12.0-15.0); Mean Corpuscular Hemoglobin 31.8 pg (26-34); Mean Corpuscular Volume 99.5 fl (80-100); Mean Platelet Volume 12.6 fl (7.4-10.4); Platelet Count Result 110 k/mm3 (150-375); Red Blood Count 3.65 M/mm3 (4.2-5.4); Red Cell Distribution Width 11.9 % (11.5-14.5); White Blood Count 6.4 K/mm3 (4.5-10.0)
[2022-03-02] MEDS: carvediloL 25 MG TABLET PO ×2 (09:58→20:20)
[2022-03-02] MEDS: SERTRALINE HCL 25 MG TABLET PO (09:58)
[2022-03-02] MEDS: APIXABAN 5 MG TABLET PO (09:58)
[2022-03-02] MEDS: GABAPENTIN 400 MG CAPSULE PO (09:58)
[2022-03-02] MEDS: LORATADINE 10 MG TABLET PO (09:58)
[2022-03-02] MEDS: hydrALAZINE HCL 50 MG TABLET PO (09:59)
[2022-03-02] MEDS: NIFEdipine 30 MG TAB.ER.24 PO ×2 (09:59→20:20)
[2022-03-02] MEDS: INSULIN ASPART (*BKC) 100 UNITS/ML 8 UNITS SUB-Q (10:00)
[2022-03-02] MEDS: ASPIRIN 81 MG CHEWABLE TABLET PO (10:05)
[2022-03-02 10:17] LABS: Albumin Level 3.2 g/dL (3.5-5.1); Anion Gap 10 mmol/L (8-16); Blood Urea Nitrogen 32 mg/dL (7-17); Calcium 7.5 mg/dL (8.4-10.2); Carbon Dioxide 27 mmol/L (22-30); Chloride 101 mmol/L (98-107); Estimated CRCL calculation 10 ml/min; Estimated Glomerular Filt Rate 9; Glucose 97 mg/dL (65-110); Phosphorus 5.5 mg/dL (2.5-4.5); Sodium 138 mmol/L (137-145)
[2022-03-02 12:49] LABS: Glucose Point of Care 73 mg/dl (65-105)
--- NOTE | 2022-03-02 14:04 | P.PNNP_ITS ---
Progress Note: A&P Assessment and Plan (1) End stage renal disease: Code(s): N18.6 - End stage renal disease Status: Chronic Assessment and Plan: * HD today and continue M/W/ dialysis schedule * follow electrolytes, volume status, and clearance (2) Chest pain: Code(s): R07.9 - Chest pain, unspecified Status: Acute Assessment and Plan: * as noted on admission * trend of cardiac enzymes noted * continue BP medications and statin * Cardiology following with recommendations noted * follow up on Echo * stress test this AM (3) Hypertension: Qualifiers: Hypertension type: renovascular hypertension Qualified Code(s): I15.0 - Renovascular hypertension Code(s): I10 - Essential (primary) hypertension Status: Chronic Assessment and Plan: * still elevated at this time * resumed home medications * consider titration of nifedipine depending on trend of hemodynamics * however, heart already in the 60 - 70s * added oral hydralazine and titrate as needed * PRN IV hydralazine (4) Anemia: Code(s): D64.9 - Anemia, unspecified Status: Chronic Assessment and Plan: * due to ESRD * at goal * Epogen with HD * follow trend of H/H (5) Insulin dependent type 2 diabetes mellitus: Code(s): E11.9 - Type 2 diabetes mellitus without complications; Z79.4 - watermaster (current) use of insulin Status: Chronic Assessment and Plan: * follow accuchecks * glycemic control Not oppose to discharge from renal perspective if otherwise medically stable. Will continue to follow. Subjective Date/time seen: 03/02/22 14:04 Tolerating hemodialysis treatment at the time of my visit (seen on HD at ~ 1:45PM); no apparent issues or problems to report at this time; stress test yesterday as negative for ischemia; BP still running high but oral hydralazine just started; no issues/events overnight or earlier this morning. Exam Narrative: General: WD/WN female in NAD Heart: normal S1 and S2; no rub Lungs: clear to auscultation Abdomen: soft, nontender, nondistended, positive bowel sounds Extremities: no cyanosis or clubbing; no edema; s/p left BKA and right AKA Skin: warm and dry Objective Data Vital Signs Vital Signs: Vital Signs Temp Pulse Resp BP Pulse Ox O2 Del Method 03/02/22 08:00 67 03/02/22 08:00 Room Air 03/02/22 09:58 73 03/02/22 08:00 36.6 C 68 16 189/46 H 97 03/02/22 04:00 Room Air 03/02/22 06:00 67 03/02/22 04:00 73 03/02/22 04:00 36.6 C 67 16 173/62 H 97 03/02/22 02:00 67 03/02/22 00:00 71 03/01/22 22:00 72 03/01/22 20:00 75 03/02/22 00:00 Room Air 03/01/22 20:00 Room Air 03/01/22 23:48 36.3 C L 69 16 163/42 H 99 03/01/22 21:45 72 03/01/22 20:00 36.6 C 76 14 170/42 H 100 03/01/22 18:00 91 03/01/22 16:00 Room Air 03/01/22 16:00 73 03/01/22 15:54 36.3 C L 72 16 163/41 H 96 03/01/22 15:11 71 18 03/01/22 15:11 71 96 Room Air Intake/Output Intake/Output: Intake & Output 02/27/22 02/28/22 03/01/22
--- NOTE | 2022-03-02 14:04 | PM.PNNEP ---
Progress Note: A&P Assessment and Plan (1) End stage renal disease: Code(s): N18.6 - End stage renal disease Status: Chronic Assessment and Plan: HD today and continue M/W/F dialysis schedule follow electrolytes, volume status, and clearance (2) Chest pain: Code(s): R07.9 - Chest pain, unspecified Status: Acute Assessment and Plan: as noted on admission trend of cardiac enzymes noted continue BP medications and statin Cardiology following with recommendations noted follow up on Echo stress test this AM (3) Hypertension: Qualifiers: Hypertension type: renovascular hypertension Qualified Code(s): I15.0 - Renovascular hypertension Code(s): I10 - Essential (primary) hypertension Status: Chronic Assessment and Plan: still elevated at this time resumed home medications consider titration of nifedipine depending on trend of hemodynamics however, heart already in the 60 - 70s added oral hydralazine and titrate as needed PRN IV hydralazine (4) Anemia: Code(s): D64.9 - Anemia, unspecified Status: Chronic Assessment and Plan: due to ESRD at goal Epogen with HD follow trend of H/H (5) Insulin dependent type 2 diabetes mellitus: Code(s): E11.9 - Type 2 diabetes mellitus without complications; Z79.4 - longterm (current) use of insulin Status: Chronic Assessment and Plan: follow accuchecks glycemic control Not oppose to discharge from renal perspective if otherwise medically stable. Will continue to follow. Subjective Date/time seen: 03/02/22 14:04 Tolerating hemodialysis treatment at the time of my visit (seen on HD at ~ 1:45PM); no apparent issues or problems to report at this time; stress test yesterday as negative for ischemia; BP still running high but oral hydralazine just started; no issues/events overnight or earlier this morning. Exam Narrative: General: WD/WN female in NAD Heart: normal S1 and S2; no rub Lungs: clear to auscultation Abdomen: soft, nontender, nondistended, positive bowel sounds Extremities: no cyanosis or clubbing; no edema; s/p left BKA and right AKA Skin: warm and dry Objective Data Vital Signs Vital Signs: Vital Signs Temp Pulse Resp BP Pulse Ox O2 Del Method 03/02/22 08:00 67 03/02/22 08:00 Room Air 03/02/22 09:58 73 03/02/22 08:00 36.6 C 68 16 189/46 H 97 03/02/22 04:00 Room Air 03/02/22 06:00 67 03/02/22 04:00 73 03/02/22 04:00 36.6 C 67 16 173/62 H 97 03/02/22 02:00 67 03/02/22 00:00 71 03/01/22 22:00 72 03/01/22 20:00 75 03/02/22 00:00 Room Air 03/01/22 20:00 Room Air 03/01/22 23:48 36.3 C L 69 16 163/42 H 99 03/01/22 21:45 72 03/01/22 20:00 36.6 C 76 14 170/42 H 100 03/01/22 18:00 91 03/01/22 16:00 Room Air 03/01/22 16:00 73 03/01/22 15:54 36.3 C L 72 16 163/41 H 96 03/01/22 15:11 71 18 03/01/22 15:11 71 96 Room Air Intake/Output Intake/Output: Intake & Output 02/27/22 02/28/22 03/01/22 03/02/22 23:59 23:59 23:59 23:59 Intake Total 440 710 540 Output Total 2850 840 200 Balance -2410 -130 340 Meds/Results Medications: Active Medications Generic Name Dose Route Start Last Admin Trade Name Freq PRN Reason Stop Dose Admin Acetaminophen 1,000 mg 03/01/22 03:50 Acetaminophen 500 Mg Tablet PO Q6H PRN Pain Rated 1-3 Albuterol 2 puff 03/01/22 03:50 Albuterol Sulfate (*Sp) Aerosol 1 Puff INHALATION QID PRN shortness of breath or wheezing Apixaban 5 mg 03/01/22 09:00 03/02/22 09:58 Apixaban 5 Mg Tablet PO 5 mg BID KEMI Administration Aspirin 81 mg 03/01/22 08:00 03/02/22 10:05 Aspirin 81 Mg Chewable Tablet PO 81 mg DAILY@0800 KEMI Administration Carvedilol 25 mg 03/01/22 09:00 03/02/22 09:58
[2022-03-02] MEDS: EPOETIN ALFA-EPBX 4,000 UNITS/ML VIAL 4000 UNITS IV PUSH (16:22)
[2022-03-02] MEDS: PRAVASTATIN SODIUM 20 MG TABLET 40 MG PO (20:20)
[2022-03-02 20:45] LABS: Glucose Point of Care 137 mg/dl (65-105)
== END 2022-03-02 20:58 | disposition home or self-care (01) | DRG 313 ==
LOC: ANHED 08:17 → ANHIMU 08:34 → ANH3MEDSUR 03-02 16:34 → ANHIMU 03-02 16:35
PROVIDERS: Emergency Medicine; Internal Medicine Nephrology; Admitting Provider Student in an Organized Health Care Education/Training Program; Emergency Provider Emergency Medicine; PCP Internal Medicine; Visit Provider Student in an Organized Health Care Education/Training Program
DX: R07.89 Other chest pain (principal); N18.6 End stage renal disease; I25.10 Atherosclerotic heart disease of native coronary artery without angina pectoris; E11.22 Type 2 diabetes mellitus with diabetic chronic kidney disease; D63.1 Anemia in chronic kidney disease; I15.0 Renovascular hypertension; E11.319 Type 2 diabetes mellitus with unspecified diabetic retinopathy without macular edema; E11.40 Type 2 diabetes mellitus with diabetic neuropathy, unspecified; E78.5 Hyperlipidemia, unspecified; F17.210 Nicotine dependence, cigarettes, uncomplicated; Z99.2 Dependence on renal dialysis; Z79.01 Long term (current) use of anticoagulants; Z79.4 Long term (current) use of insulin; Z79.82 Long term (current) use of aspirin; Z79.899 Other long term (current) drug therapy; Z89.511 Acquired absence of right leg below knee; Z89.512 Acquired absence of left leg below knee; Z95.1 Presence of aortocoronary bypass graft
CPT/HCPCS: 36415; 71046; 78452; 80053; 80069; 82948; 83036; 83690; 84484; 85025; 85027; 85610; 85730; 86705; 86706; 87340; 93005; 93017; 93306; 94640; 96374; 96375; 96376; 99285; A9270; A9502; G0257; G0378; J0360; J1815; J2060; J2785; Q5105

== ENCOUNTER 2022-03-26 13:15 | Observation (INO) | payer MEDICARE, OTHER, SELFPAY ==
[2022-03-26] VITALS (7 sets, daily range): BP systolic 151–186; BP diastolic 52–96; PULSE 56–62; RESP 13–20; TEMP 36.6–37; O2SAT 94–98; BMI 33.0
--- NOTE | ~2022-03-26 | XR_ITS ---
XR chest 2V 03/26/2022 15:50 Indication: Cough and dyspnea Procedure: Two-view chest Comparison: Comparison to multiple prior studies sequentially, with oldest reviewed study dated 12/2021. Findings: Status post median sternotomy for CABG. Cardiomegaly. Bibasilar atelectasis. Port catheter tips near the cavoatrial junction. No focal pneumonia, edema or pneumothorax. No significant effusion . Impression: 1: Bibasilar atelectasis. 2: Cardiomegaly. Reviewed, dictated and finalized at location B. Impression: 1: Bibasilar atelectasis. 2: Cardiomegaly.
--- NOTE | ~2022-03-26 | XR_ITS ---
XR chest 1V portable DATE: 03/26/2022 14:39 INDICATION: Shortness of breath TECHNIQUE: Portable AP chest on 03/22/2022 at 1436 hours COMPARISON: 02/28/2022 AP and lateral chest FINDINGS: Status post sternotomy and probable coronary bypass graft surgery. Cardiomegaly. Aortic maru cification. There is pulmonary vascular redistribution suggesting mild pulmonary venous hypertension. No pulmonary infiltrate or consolidation, pleural effusion or pneumothorax. Diffuse osteopenia. IMPRESSION: Cardiomegaly, pulmonary vascular redistribution, suggesting mild congestive change Reviewed, dictated and finalized at location A. IMPRESSION: Cardiomegaly, pulmonary vascular redistribution, suggesting mild co ngestive change
--- NOTE | 2022-03-26 13:17 | ECG_ITS ---
Measurements Intervals Center Rate: 59 P: -21 ME: 148 QRS: 261 QRSD: 149 T: 19 QT: 465 QTc: 463 Interpretive Statements SINUS BRADYCARDIA RIGHT AXIS DEVIATION RIGHT BUNDLE BRANCH BLOCK ABNORMAL ECG COMPARED TO ECG 02/28/2022 06:38:56 HEART RATE HAS DECREASED Electronically Signed On 03-26-2022 16:26:00 CDT by Shaheen Patel M.D.
[2022-03-26 13:35] LABS: Basophils Percent Auto 0.4 % (0.2-1.2); Eosinophils Absolute Auto 0.1 K/mm3 (0-0.3); Eosinophils Percent Auto 4.1 % (0-4.4); Hematocrit 35.5 % (37.0-47.0); Immature Granulocyte Absolute 0.01 K/mm3 (0.00-0.031); Immature Granulocyte Percent A 0.4 % (0-0.5); Immature Platelet Fraction Pct 8.5 % (0.9-11.2); Lymphocytes Absolute Auto 1.23 K/mm3 (0.9-3.2); Lymphocytes Percent Auto 45.4 % (18.3-44.2); Mean Corpuscular Hemoglobin 31.7 pg (26-34); Mean Corpuscular Volume 102.3 fl (80-100); Mean Platelet Volume 12.6 fl (7.4-10.4); Monocytes Absolute Auto 0.3 K/mm3 (0.1-0.6); Neutrophils Absolute Auto 1.1 K/mm3 (1.3-6.7); Neutrophils Percent Auto 39.7 % (45.5-73.1); Platelet Count Result 85 k/mm3 (150-375); Red Blood Count 3.47 M/mm3 (4.2-5.4); Red Cell Distribution Width 12.2 % (11.5-14.5); White Blood Count 2.7 K/mm3 (4.5-10.0)
[2022-03-26 13:49] LABS: Alanine Aminotransferase 17 U/L (6-35); Albumin Level 3.1 g/dL (3.5-5.1); Alkaline Phosphatase 117 U/L (38-126); Anion Gap 10 mmol/L (8-16); Aspartate Amino Transferase 27 U/L (14-36); Bilirubin,Total 0.2 mg/dL (0.2-1.3); Blood Urea Nitrogen 42 mg/dL (7-17); Calcium 6.5 mg/dL (8.4-10.2); Carbon Dioxide 23 mmol/L (22-30); Chloride 105 mmol/L (98-107); Estimated CRCL calculation 7 ml/min; Estimated Glomerular Filt Rate 6; Glucose 91 mg/dL (65-110); Potassium 5.3 mmol/L (3.4-5.0); Sodium 138 mmol/L (137-145)
--- NOTE | 2022-03-26 13:51 | ED.GENADULT ---
HPI - General Adult General Chief complaint: Shortness of Breath/Dyspnea Stated complaint: sob, covid + 03/26, missed dialysis today History of Present Illness HPI narrative: This is a 71-year-old female with history of end-stage renal disease presenting ED with 3 days of feeling unwell. Patient describes shortness of breath, weakness and body aches. She denies nausea vomiting diarrhea, chest pain, abdominal pain or urinary symptoms. She is supposed to have dialysis Saturday. She skip paralysis good she has not feel well. Patient is vaccinated against COVID. She is vaccinated against flu. She denies sick contacts at home. Related Data Home Medications Medication Instructions Recorded Confirmed apixaban 5 mg tablet (Eliquis) 5 mg PO BID 11/03/19 02/28/22 carvedilol 25 mg tablet 25 mg PO BID 11/03/19 02/28/22 insulin degludec 100 unit/mL 32 unit subcut HS 11/03/19 02/28/22 subcutaneous solution (Tresiba U-100 Insulin) pravastatin 40 mg tablet 40 mg PO HS 11/03/19 02/28/22 acetaminophen 500 mg capsule 1,000 mg PO Q6H PRN Pain 02/11/20 02/28/22 sertraline 25 mg tablet 25 mg PO QAM 02/11/20 02/28/22 gabapentin 400 mg capsule 400 mg PO TID 10/09/21 02/28/22 losartan 100 mg tablet 100 mg PO [id number] 10/09/21 02/28/22 nifedipine 30 mg tablet,extended 30 mg PO Q12H 10/09/21 02/28/22 release cetirizine 10 mg tablet 10 mg PO 1XD 02/06/22 02/28/22 insulin aspart U-100 100 unit/mL 8 unit subcut TIDWMEAL 02/28/22 02/28/22 (3 mL) subcutaneous pen (Novolog Flexpen U-100 Insulin aspart) pantoprazole 40 mg tablet,delayed 40 mg PO 1XD PRN Heartburn 02/28/22 02/28/22 release Allergies Allergy/AdvReac Type Severity Reaction Status Date / Time No Known Allergies Allergy Verified 03/26/22 13:16 Review of Systems Review of Systems: CONSTITUTIONAL: Denies night sweats. EYES: No eye pain ENT: Denies rhinorrhea CARDIOVASCULAR: Denies palpitations RESPIRATORY: Denies hemoptysis GASTROINTESTINAL: Denies hematemesis GENITOURINARY: Denies hematuria. SKIN: Denies rash MUSCULOSKELETAL: Denies myalgia. NEUROLOGIC: Denies weakness. PSYCHIATRIC: Denies delusions PMF Past Medical History Medical History Arterial vascular disease Chronic anemia Coronary artery disease Digital arterial occlusive disease End-stage renal disease on hemodialysis Saturday, Saturday, Saturday. 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 Hemoglobin A1c was 6.8% in February 2020. Osteomyelitis Osteomyelitis of right tibia Renal osteodystrophy Volume overload Surgical History Surgical History Amputation of right forefoot :Right 4th and 5th ray amputation in 04/2017. :Right foot transmetatarsal amputation with partial fasciotomy due to wet gangrene, osteomyelitis, and necrotizing fasciitis in May 2017. 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 History of below-knee amputation of both lower extremities Left rilei-ihp-xorz amputation in 2017. Right exepr-ubx-wmzi amputation in 02/2020. History of carpal tunnel release History of coronary artery bypass graft History of right above knee amputation (~05/12/20) History of right below knee amputation (~02/2020) History of spinal fusion History of surgical procedure on eye proper using laser Related to diabetic retinopathy. History of vascular surgery Right lower extremity stents in March 2017. Left lower extremity stent in 2014. Family History Family History Mother Diabetes mellitus Father Lung cancer Social History Social History Social History: Surrogate decision maker: Hunter
[2022-03-26] MEDS: methylPREDNISolone SOD SUCC 125 MG VIAL IV PUSH (14:07)
[2022-03-26 14:10] LABS: SARS-CoV-2 RNA PCR Positive
[2022-03-26] MEDS: IPRATROPIUM BR 0.02% INH SOLN 0.5 MG/2.5 ML VIAL INHALATION (14:12)
[2022-03-26] MEDS: ALBUTEROL SULFATE NEB 2.5 MG/3 ML INH 5 MG INHALATION (14:12)
[2022-03-26 14:13] LABS: Atypical Lymphocytes Present; Platelet Estimate Decreased (Adequate); Schistocytes None Seen (NORMAL)
--- NOTE | 2022-03-26 18:00 | PM.IMHP ---
H&P: HPI History of Present Illness Date/Time: 03/26/22 18:00 <Susan Escudero PA-C - Last Filed: 03/27/22 17:02> Chief Complaint: Cough and shortness of breath. <Susan Escudero PA-C - Last Filed: 03/27/22 17:02> Narrative: This is a 71-year-old female with peripheral vascular disease, insulin-dependent diabetes, end-stage renal disease on hemodialysis, hypertension, and chronic anemia who presented to the emergency department for evaluation of cough and shortness of breath. She has not been feeling well for a couple of days with subjective fever, sore throat, chest congestion, nonproductive cough, and decreased appetite. She was supposed to go to dialysis today but did not feel well enough to do so thus she came to the hospital. Vital signs were stable on arrival. Chest x-ray showed pulmonary vascular congestion but no evidence of pneumonia. SARS-CoV-2 by PCR came back positive. Potassium was mildly elevated at 5.3 but her other labs look stable. She is being admitted in this setting for dialysis. Currently she has no specific complaints aside for those listed as above. She is hungry, however. She lives with her sister who has had similar symptoms. <Susan Escudero PA-C - Last Filed: 03/27/22 17:02> Review of Systems Review of Systems: Twelve systems were reviewed and are negative except for as per HPI. <Susan Escudero PA-C - Last Filed: 03/27/22 17:02> [facility] Past Medical History Medical History: Medical History (Updated 04/10/22 @ 07:45 by Patricia Bowers MD) Arterial vascular disease Chronic anemia Coronary artery disease Digital arterial occlusive disease End-stage renal disease on hemodialysis Saturday, Saturday, Saturday. 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 Hemoglobin A1c was 6.8% in February 2020. Osteomyelitis Renal osteodystrophy Thrombocytopenia Volume overload <Susan Escudero PA-C - Last Filed: 03/27/22 17:02> Surgical History Surgical History: Surgical History Amputation of right forefoot :Right 4th and 5th ray amputation in 04/2017. :Right foot transmetatarsal amputation with partial fasciotomy due to wet gangrene, osteomyelitis, and necrotizing fasciitis in May 2017. 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 History of below-knee amputation of both lower extremities Left wgkth-yom-uafj amputation in 2017. Right dxuny-hoa-leyy amputation in 02/2020. History of carpal tunnel release History of coronary artery bypass graft History of right above knee amputation (~05/12/20) History of right below knee amputation (~02/2020) History of spinal fusion History of surgical procedure on eye proper using laser Related to diabetic retinopathy. History of vascular surgery Right lower extremity stents in March 2017. Left lower extremity stent in 2014. <Susan Escudero PA-C - Last Filed: 03/27/22 17:02> Family History Family History: Family History Mother Diabetes mellitus Father Lung cancer <Susan Escudero PA-C - Last Filed: 03/27/22 17:02> Social History Social History: Social History Social History: Code status: Full code. Smoking packs per day: 0.25 Smoking cigarettes per day: 5.0 Years smoked: 60 Smoking pack-years: 15.00 Smoking status: Never smoker Tobacco type: cigarettes Second hand tobacco smoke exposure: Yes Smoking end date: 06/03/15 Alcohol intake: never Drinks per week: 1 Alcohol use details: Previous social drinker. Substance use: never Substance use type: does not use Lack of Transportation: No Lack of Food: Sometimes True Current Housing
--- NOTE | 2022-03-26 19:30 | ADMGEN ---
This patient, Tawana Prado, was admitted to [facility] Surg Room 311-01. Patient/family oriented to hospital policies and general routines including ID bracelet, bed and alarms, visiting hours, pain management, procedures, bathroom and other care routines, personal items, smoking policy, room service/diet, and visiting hours. Information on how to activate the Rapid Response Team has been discussed. Patient/Family are encouraged to report perceived risks to care and to ask questions if they do not understand what they are told or what they should do.
[2022-03-27] VITALS (22 sets, daily range): BP systolic 99–190; BP diastolic 41–77; PULSE 50–88; RESP 12–22; TEMP 36–37.1; O2SAT 92–94
--- NOTE | 2022-03-27 00:39 | PC.NURSE ---
Pt arrived to the floor at shift change. Pt is covid positive and understands the reason for wearing PPE. Pt educated on covid protocol. Pt participated and contributed in plan of care for shift. During pt intake pt expressed to charge nurse that if something should happen and she become unresponsive, pt does not want to be resuscitated. Pt verbalized this to multiple staff and provider put in DNR orders. Pt has not complaints or needs at this time. Pt will continue to be monitored.
[2022-03-27 03:22] LABS: Hemoglobin A1C 6.9 % (<5.7)
[2022-03-27 03:27] LABS: Anion Gap 12 mmol/L (8-16); Blood Urea Nitrogen 48 mg/dL (7-17); Calcium 6.6 mg/dL (8.4-10.2); Carbon Dioxide 23 mmol/L (22-30); Chloride 105 mmol/L (98-107); Estimated CRCL calculation 7 ml/min; Estimated Glomerular Filt Rate 5; Glucose 149 mg/dL (65-110); Potassium 6.3 mmol/L (3.4-5.0); Sodium 140 mmol/L (137-145)
[2022-03-27] MEDS: SODIUM POLYSTYRENE SULFONONATE 15 GM/60 ML BTL 30 GM PO (05:02)
[2022-03-27] MEDS: carvediloL 25 MG TABLET PO ×2 (07:39→21:44)
[2022-03-27] MEDS: APIXABAN 5 MG TABLET PO ×2 (07:40→17:00)
[2022-03-27] MEDS: LORATADINE 10 MG TABLET PO (07:40)
[2022-03-27] MEDS: hydrALAZINE HCL 50 MG TABLET PO ×3 (07:40→17:00)
[2022-03-27] MEDS: NIFEdipine 30 MG TAB.ER.24 PO ×2 (07:40→21:44)
[2022-03-27] MEDS: ASPIRIN 81 MG CHEWABLE TABLET PO (07:41)
[2022-03-27] MEDS: SERTRALINE HCL 25 MG TABLET PO (07:41)
[2022-03-27] MEDS: GABAPENTIN 400 MG CAPSULE PO ×3 (07:41→17:00)
[2022-03-27] MEDS: PANTOPRAZOLE 40 MG TABLET PO (07:41)
[2022-03-27 08:08] LABS: Glucose Point of Care 169 mg/dl (65-105)
[2022-03-27] MEDS: INSULIN ASPART (*BKC) 100 UNITS/ML 8 UNITS SUB-Q ×3 (08:24→16:59)
[2022-03-27 08:45] LABS: Hematocrit 36.3 % (37.0-47.0); Hemoglobin 11.5 g/dL (12.0-15.0); Immature Granulocyte Absolute 0.01 K/mm3 (0.00-0.031); Immature Granulocyte Percent A 0.5 % (0-0.5); Immature Platelet Fraction Pct 8.6 % (0.9-11.2); Lymphocytes Absolute Auto 0.62 K/mm3 (0.9-3.2); Mean Corpuscular HGB Conc 31.7 g/dl (32-36); Mean Corpuscular Volume 101.1 fl (80-100); Mean Platelet Volume 12.7 fl (7.4-10.4); Monocytes Absolute Auto 0.2 K/mm3 (0.1-0.6); Monocytes Percent Auto 7.5 % (2.6-8.5); Neutrophils Absolute Auto 1.4 K/mm3 (1.3-6.7); Platelet Count Result 91 k/mm3 (150-375); Red Blood Count 3.59 M/mm3 (4.2-5.4); Red Cell Distribution Width 11.9 % (11.5-14.5); White Blood Count 2.1 K/mm3 (4.5-10.0)
[2022-03-27 08:55] LABS: Anion Gap 12 mmol/L (8-16); Blood Urea Nitrogen 52 mg/dL (7-17); Calcium 6.6 mg/dL (8.4-10.2); Carbon Dioxide 20 mmol/L (22-30); Chloride 109 mmol/L (98-107); Estimated CRCL calculation 6 ml/min; Estimated Glomerular Filt Rate 5; Glucose 153 mg/dL (65-110); Magnesium 2.2 mg/dL (1.6-2.3); Phosphorus 8.4 mg/dL (2.5-4.5); Potassium 5.3 mmol/L (3.4-5.0); Sodium 141 mmol/L (137-145)
--- NOTE | 2022-03-27 09:31 | PC.NURSE ---
patient to dialysis per bed
--- NOTE | 2022-03-27 10:47 | PM.IMPN ---
Progress Note: A&P Assessment and Plan (1) COVID: Code(s): U07.1 - COVID-19 Status: Acute Assessment and Plan: Currently not requiring any oxygen. She is mildly short of breath. Patient cannot Have remdesivir due to end-stage renal disease. Hold on dexamethasone. (2) Pancytopenia: Code(s): D61.818 - Other pancytopenia Status: Acute Assessment and Plan: White blood cell count has dropped. Other parameters stable. Will monitor. (3) Hyperkalemia: Code(s): E87.5 - Hyperkalemia Status: Acute Assessment and Plan: Improved. Monitor. (4) Volume overload: Code(s): E87.70 - Fluid overload, unspecified Status: Acute Assessment and Plan: Secondary to end-stage renal disease needing hemodialysis. Nephrology has been consulted. (5) End stage renal disease: Code(s): N18.6 - End stage renal disease Status: Chronic Assessment and Plan: nephrology has been consult (6) Insulin dependent type 2 diabetes mellitus: Code(s): E11.9 - Type 2 diabetes mellitus without complications; Z79.4 - correction (current) use of insulin Status: Chronic Assessment and Plan: will continue insulin. Monitor blood sugars. (7) Hypertension: Qualifiers: Hypertension type: renovascular hypertension Qualified Code(s): I15.0 - Renovascular hypertension Code(s): I10 - Essential (primary) hypertension Status: Chronic Assessment and Plan: monitor blood pressure. (8) Chronic anemia: Code(s): D64.9 - Anemia, unspecified Status: Acute Subjective Date/time seen: 03/27/22 10:47 patient reports she is having some myalgias but otherwise feels okay. Exam Narrative: General: Chronically ill appearing female. HEENT: PERRL, EOMI. Sclera anicteric. Tacky mucous membranes. Neck: Supple. Respiratory: Respirations are nonlabored. Fine crackles at the bases with scattered expiratory wheezing. Cardiovascular: Regular rate and rhythm with S1-S2. Chest: Hemodialysis catheter in the right chest. Gastrointestinal: Abdomen is soft, nontender, and nondistended with positive bowel sounds. No organomegaly. Skin: Warm and dry. No rash or lesions on limited exam. Extremities: No cyanosis, clubbing, or edema. Status post left akhkg-slw-bzpa amputation right wnubo-lru-xjbk amputation. Neurological: Alert. Cranial nerves 2-12 are grossly intact. Speech is clear. No gross focal deficits to casual conversation. Psychiatric: Pleasant and cooperative with normal mood and affect. Judgment and insight intact. Objective Data Vital Signs Vital Signs: Vital Signs - 24 hr 03/26/22 13:07 03/26/22 13:14 03/26/22 13:14 Temperature 98.6 F Pulse Rate 62 61 Respiratory Rate 19 Blood Pressure 156/52 H Pulse Oximetry 94 95 Oxygen Delivery Room Air Room Air 03/26/22 13:14 03/26/22 14:10 03/26/22 14:22 Temperature Pulse Rate 57 L 56 L Respiratory Rate 13 13 Blood Pressure Pulse Oximetry 95 Oxygen Delivery Room Air 03/26/22 18:04 03/26/22 19:11 03/26/22 23:00 Temperature Pulse Rate 62 60 Respiratory Rate 20 14 Blood Pressure 151/96 H 186/59 H Pulse Oximetry 96 97 Oxygen Delivery Room Air 03/26/22 19:30 03/27/22 04:01 03/27/22 07:39 Temperature 97.8 F Pulse Rate 57 L 54 L 57 L Respiratory Rate 15 Blood Pressure 168/54 H Pulse Oximetry 98 Oxygen Delivery 03/27/22 06:00 03/27/22 09:30 03/27/22 09:20 Temperature 97 F L 98.3 F Pulse Rate 61 61 63 Respiratory Rate 16 22 H Blood Pressure 190/57 H 161/60 H 146/65 H Pulse Oximetry 94 Oxygen Delivery 03/27/22 09:50 03/27/22 10:10 03/27/22 10:30 Temperature Pulse Rate 61 61 63 Respiratory Rate Blood Pressure 149/59 H 104/43 L 99/49 L Pulse Oximetry Oxygen Delivery 03/27/22 08:00 Temperature Pulse Rate 70 Respiratory Rate Blood Pressure Pulse Oximet
[2022-03-27 11:45] LABS: Glucose Point of Care 130 mg/dl (65-105)
--- NOTE | 2022-03-27 15:03 | PM.CNNEP ---
Assessment and Plan Assessment and plan (1) ESRD (end stage renal disease): Code(s): N18.6 - End stage renal disease Status: Acute Assessment and Plan: Patient has end-stage renal disease. She dialyzes 3 times a week on Wednesdays and Fridays. She skipped yesterday. Today her potassium was very high at 6.3 so she was done on a low-potassium bath in dialysis this morning. She has some volume overload as well so fluid was removed in dialysis. (2) COVID: Code(s): U07.1 - COVID-19 Status: Acute Assessment and Plan: The patient has COVID. She has zjlr-ca-vqowhihu symptoms but is not hypoxic. (3) Hyperkalemia: Code(s): E87.5 - Hyperkalemia Status: Acute Assessment and Plan: The patient's potassium was high from skipping treatments. Will check another potassium in the morning (4) Volume overload: Code(s): E87.70 - Fluid overload, unspecified Status: Acute Assessment and Plan: this is from skipping treatments. We remove some fluid today and will remove fluid tomorrow as well. (5) Diarrhea: Code(s): R19.7 - Diarrhea, unspecified Status: Acute Assessment and Plan: She says she has a little bit of liquid stools today which just started happening today. She will talk with hospitalist about that. (6) Renal osteodystrophy: Code(s): N25.0 - Renal osteodystrophy Status: Acute Assessment and Plan: Will check a phosphorus level in the morning (7) Erythropoietin deficiency anemia: Code(s): D63.1 - Anemia in chronic kidney disease Status: Acute Assessment and Plan: hemoglobin was above 11 last night. Will check another CBC tomorrow. No EPO given. (8) Hypertension: Qualifiers: Hypertension type: renovascular hypertension Qualified Code(s): I15.0 - Renovascular hypertension Code(s): I10 - Essential (primary) hypertension Status: Chronic Assessment and Plan: Blood pressure is under good control (9) Insulin dependent type 2 diabetes mellitus: Code(s): E11.9 - Type 2 diabetes mellitus without complications; Z79.4 - residential (current) use of insulin Status: Chronic Assessment and Plan: on Accu-Cheks and sliding-scal e inspuliner hospitalists History of Present Illness Reason for Consult Consult date: 03/27/22 Chief Complaint Chief complaint: covid History of Present Illness Narrative: Tawana is a very pleasant 71-year-old lady who has multiple medical problems including end-stage renal disease on dialysis 3 times a week, hypertension, diabetes, chronic anemia, renal osteodystrophy, peripheral vascular disease status post left saonp-bbj-mzph and right inljf-int-xzxc amputations, a 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 The patient still smokes. Patient normally dialyzes on Wednesdays and Fridays. She says that on Saturday she started getting sick. She had a cough and weakness. She did not have a fever that she knew of however she did feel hot and cold all weekend long. She had a calm COVID test which was positive. Yesterday she felt crummy so she decided not to go to dialysis. Today she felt worse so came to the ER. Her sister also has COVID. She has a cough, sore throat, headache he feeling, poor appetite, some abdominal discomfort, and generalized weakness. These symptoms have gradually gotten worse over the last few days but about the same today as yesterday. Review of Systems Constitutional: Constitutional: Reports no additional constitutional complaints Eyes: Eyes: Reports no additional eye complaints ENT: Reports system reviewed and no additional complaints, except as documented Cardiovascular: Cardiovascular: Reports no additional cardiovascular complaints Respiratory: Respiratory: Reports no additional respiratory complaints Gastroin
[2022-03-27 16:56] LABS: Glucose Point of Care 148 mg/dl (65-105)
[2022-03-27] MEDS: ALBUTEROL SULFATE (*SP) INHALER 2 PUFF INHALATION (17:45)
[2022-03-27] MEDS: PRAVASTATIN SODIUM 20 MG TABLET 40 MG PO (21:44)
[2022-03-27] MEDS: INSULIN GLARGINE (*BKC) 100 UNITS/ML 32 UNITS SUB-Q (21:44)
[2022-03-27 21:52] LABS: Glucose Point of Care 166 mg/dl (65-105)
[2022-03-28] VITALS (18 sets, daily range): BP systolic 110–164; BP diastolic 44–65; PULSE 62–88; RESP 16–19; TEMP 35.9–37; O2SAT 94–95
--- NOTE | 2022-03-28 07:06 | PM.PNNEP ---
Progress Note: A&P Assessment and Plan (1) ESRD (end stage renal disease): Code(s): N18.6 - End stage renal disease Status: Acute Assessment and Plan: Patient has end-stage renal disease. She dialyzes 3 times a week on Wednesdays and Fridays. she had dialysis yesterday. She did well. She will get another treatment today to get back on schedule. Labs today are pending. Will remove more fluid in dialysis today. (2) COVID: Code(s): U07.1 - COVID-19 Status: Acute Assessment and Plan: The patient has COVID. She is on no supplementary oxygen She has fgmy-oi-yjnxpzro symptoms but is not hypoxic. (3) Hyperkalemia: Code(s): E87.5 - Hyperkalemia Status: Acute Assessment and Plan: this is pending (4) Volume overload: Code(s): E87.70 - Fluid overload, unspecified Status: Acute Assessment and Plan: will remove more fluid today as tolerated. (5) Diarrhea: Code(s): R19.7 - Diarrhea, unspecified Status: Acute (6) Renal osteodystrophy: Code(s): N25.0 - Renal osteodystrophy Status: Acute Assessment and Plan: Phosphorus pending (7) Erythropoietin deficiency anemia: Code(s): D63.1 - Anemia in chronic kidney disease Status: Acute Assessment and Plan: hemoglobin 11.5 yesterday morning. (8) Hypertension: Qualifiers: Hypertension type: renovascular hypertension Qualified Code(s): I15.0 - Renovascular hypertension Code(s): I10 - Essential (primary) hypertension Status: Chronic Assessment and Plan: Systolic running 110-145. She is on carvedilol, nifedipine, hydralazine, losartan. (9) Insulin dependent type 2 diabetes mellitus: Code(s): E11.9 - Type 2 diabetes mellitus without complications; Z79.4 - senior care (current) use of insulin Status: Chronic Assessment and Plan: on Accu-Cheks and sliding-scal e inspuliner hospitalists Subjective Date/time seen: 03/28/22 07:06 Interval history: the patient is feeling about the same. Cough is the same. Shortness of breath is better. Still in respiratory isolation on no oxygen. Review of Systems Cardiovascular: Cardiovascular: Reports no additional cardiovascular complaints Respiratory: Respiratory: Reports no additional respiratory complaints Gastrointestinal: Gastrointestinal: Reports no additional gastrointestinal complaints Genitourinary: Genitourinary: Reports no additional female genitourinary complaints Exam Narrative: WDWN in NAD skin no rash head ncat lungs clear bilaterally cor reg no rub abd BS+ nontender and soft ext no edema. Objective Data Vital Signs Vital Signs: Vital Signs - 24 hr 03/27/22 07:39 03/27/22 09:30 03/27/22 09:20 Temperature 36.8 C Pulse Rate 57 L 61 63 Respiratory Rate 22 H Blood Pressure 161/60 H 146/65 H Pulse Oximetry Oxygen Delivery 03/27/22 09:50 03/27/22 10:10 03/27/22 10:30 Temperature Pulse Rate 61 61 63 Respiratory Rate Blood Pressure 149/59 H 104/43 L 99/49 L Pulse Oximetry Oxygen Delivery 03/27/22 10:50 03/27/22 11:10 03/27/22 11:30 Temperature Pulse Rate 67 65 63 Respiratory Rate Blood Pressure 106/47 L 112/53 L 118/53 L Pulse Oximetry Oxygen Delivery 03/27/22 11:50 03/27/22 12:10 03/27/22 12:31 Temperature Pulse Rate 50 L 88 66 Respiratory Rate Blood Pressure 107/50 L 112/77 119/52 L Pulse Oximetry Oxygen Delivery 03/27/22 12:40 03/27/22 08:00 03/27/22 12:00 Temperature 37.1 C Pulse Rate 64 70 60 Respiratory Rate 18 Blood Pressure 122/57 L Pulse Oximetry Oxygen Delivery 03/27/22 14:00 03/27/22 16:00 03/27/22 21:44 Temperature 36.1 C L Pulse Rate 67 70 65 Respiratory Rate 12 Blood Pressure 133/41 L Pulse Oximetry 92 Oxygen Delivery 03/27/22 22:00 03/27/22 21:44 10
[2022-03-28 07:15] LABS: Albumin Level 2.7 g/dL (3.5-5.1); Anion Gap 12 mmol/L (8-16); Blood Urea Nitrogen 30 mg/dL (7-17); Calcium 6.1 mg/dL (8.4-10.2); Carbon Dioxide 31 mmol/L (22-30); Chloride 97 mmol/L (98-107); Estimated CRCL calculation 9 ml/min; Estimated Glomerular Filt Rate 8; Glucose 99 mg/dL (65-110); Phosphorus 4.9 mg/dL (2.5-4.5); Potassium 3.5 mmol/L (3.4-5.0); Sodium 140 mmol/L (137-145)
[2022-03-28 08:19] LABS: Glucose Point of Care 90 mg/dl (65-105)
[2022-03-28] MEDS: INSULIN ASPART (*BKC) 100 UNITS/ML 8 UNITS SUB-Q (09:47)
[2022-03-28] MEDS: ACETAMINOPHEN 500 MG TABLET 1000 MG PO (09:49)
[2022-03-28] MEDS: SERTRALINE HCL 25 MG TABLET PO (09:50)
[2022-03-28] MEDS: carvediloL 25 MG TABLET PO (09:50)
[2022-03-28] MEDS: GABAPENTIN 400 MG CAPSULE PO ×2 (09:50→13:51)
[2022-03-28] MEDS: LORATADINE 10 MG TABLET PO (09:50)
[2022-03-28] MEDS: NIFEdipine 30 MG TAB.ER.24 PO (09:50)
[2022-03-28] MEDS: APIXABAN 5 MG TABLET PO (09:50)
[2022-03-28] MEDS: ASPIRIN 81 MG CHEWABLE TABLET PO (09:50)
[2022-03-28] MEDS: hydrALAZINE HCL 50 MG TABLET PO (09:51)
[2022-03-28 11:42] LABS: Glucose Point of Care 81 mg/dl (65-105)
--- NOTE | 2022-03-28 14:50 | PM.DS ---
DS: Admitting Diagnosis Discharge Date 03/28/22 Admitting Diagnosis Cough and shortness of breath DS: Discharge Diagnosis Discharge Diagnosis (1) COVID: Code(s): U07.1 - COVID-19 Status: Acute (2) Pancytopenia: Code(s): D61.818 - Other pancytopenia Status: Acute (3) Hyperkalemia: Code(s): E87.5 - Hyperkalemia Status: Acute (4) Volume overload: Code(s): E87.70 - Fluid overload, unspecified Status: Acute (5) End stage renal disease: Code(s): N18.6 - End stage renal disease Status: Chronic (6) Insulin dependent type 2 diabetes mellitus: Code(s): E11.9 - Type 2 diabetes mellitus without complications; Z79.4 - custodial (current) use of insulin Status: Chronic (7) Hypertension: Qualifiers: Hypertension type: renovascular hypertension Qualified Code(s): I15.0 - Renovascular hypertension Code(s): I10 - Essential (primary) hypertension Status: Chronic (8) Chronic anemia: Code(s): D64.9 - Anemia, unspecified Status: Acute DS: Summary Hospital Course Reason for hospitalization: 71yo female with DM, ESRD, HTN and chronic anemia here for cough and SOB. Please see H&P for details Hospital Course: The patient presented to the ED for cough and shortness of breath. She tested positive for SARS-CoV-2 by PCR. She has no oxygen requirement thus no indication for dexamethasone. Labs show a mild pancytopenia which was felt to be chronic that was made worse by the COVID infection. She had evidence of mild volume overload related to her missing dialysis. She had no critical electrolyte abnormalities except her potassium was elevated at 6.3. Dr. Maria was consulted by the ED physician for dialysis and the patient underwent dialysis here. Her CXR showed CMG and pulmonary vascular redistribution. Calcium was low but felt related to low albumin (corrected was 7.4). Paxlovid not recommended in renal failure patients. She remained afebrile and vital signs were stable. She remained on room air. She overall did well and was able to be discharged home Status at Discharge Cognitive/behavioral status at discharge: stable Time Spent with Patient Time attestation: Total time spent providing and/or coordinating discharge services: 35 minutes Time spent: Greater than 30 minutes Specific discharge activities: Discussed with family. All questions were answered. Exam Narrative: AF 98.6 124/44 68 16 94% RA Gen - NARD Chest - CTA bilaterally, nml RR CV - RRR S1/S2 Abd - Soft, NT/ND, Positive BS Ext - No pedal edema Neuro - Alert and oriented. Nonfocal exam. Psych - Nml mood and affect Skin - Warm and dry DS: Data Data Completed and Pending Labs on day of discharge: Labs from last 24 hours 03/28/22 03/28/22 03/28/22 11:39 08:07 06:26 Sodium 140 Potassium 3.5 Chloride 97 L Carbon Dioxide 31 H Anion Gap 12 BUN 30 H D Creatinine 5.30 H Estim Creat Clear Calc 9 Estimated GFR 8 L Glucose 99 POC Capillary Glucose 81 90 Calcium 6.1 L Phosphorus 4.9 H Albumin 2.7 L 03/27/22 03/27/22 21:40 16:37 Sodium Potassium Chloride Carbon Dioxide Anion Gap BUN Creatinine Estim Creat Clear Calc Estimated GFR Glucose POC Capillary Glucose 166 H 148 H Calcium Phosphorus Albumin Preliminary micro results at discharge 03/26/22 23:18 Blood Culture - Preliminary Blood 03/26/22 23:18 Blood Culture - Preliminary Blood Discharge Plan Discharge Attending physician on discharge: Brad Mendoza Consulting providers: San[facility] Maria Discharging Clinician: Brad Mendoza Anticipated Discharge Date/Time: 03/28/22 14:55 Patient Disposition: Home, Self-Care Activity: as tolerated Diet: renal Discharge Instructions: Per Care Coordination , please fax discharge instructions and medication sheets
[2022-03-28 16:31] LABS: Glucose Point of Care 160 mg/dl (65-105)
--- NOTE | 2022-04-04 09:46 | PC.NURSE ---
Blood cx are negative. Dr. Reji buitrago.
== END 2022-03-28 17:35 | disposition home or self-care (01) ==
LOC: ANHED 17:19 → ANH3MEDSUR 19:52
PROVIDERS: Internal Medicine Nephrology; Physician Assistant; Admitting Provider Family Medicine; Emergency Provider Emergency Medicine; PCP Internal Medicine; Visit Provider Internal Medicine
DX: U07.1 COVID-19 (principal); D61.818 Other pancytopenia; E87.5 Hyperkalemia; E87.70 Fluid overload, unspecified; E11.22 Type 2 diabetes mellitus with diabetic chronic kidney disease; I12.0 Hypertensive chronic kidney disease with stage 5 chronic kidney disease or end stage renal disease; N18.6 End stage renal disease; Z99.2 Dependence on renal dialysis; R19.7 Diarrhea, unspecified; E78.5 Hyperlipidemia, unspecified; D63.1 Anemia in chronic kidney disease; I25.10 Atherosclerotic heart disease of native coronary artery without angina pectoris; Z95.1 Presence of aortocoronary bypass graft; D64.9 Anemia, unspecified; E11.319 Type 2 diabetes mellitus with unspecified diabetic retinopathy without macular edema; E11.40 Type 2 diabetes mellitus with diabetic neuropathy, unspecified; E11.21 Type 2 diabetes mellitus with diabetic nephropathy; M86.9 Osteomyelitis, unspecified; M86.8X6 Other osteomyelitis, lower leg; J98.11 Atelectasis; R00.1 Bradycardia, unspecified; I45.10 Unspecified right bundle-branch block; R94.31 Abnormal electrocardiogram [ECG] [EKG]; N25.0 Renal osteodystrophy; Z89.022 Acquired absence of left finger(s); Z89.512 Acquired absence of left leg below knee; Z89.511 Acquired absence of right leg below knee; Z95.820 Peripheral vascular angioplasty status with implants and grafts; Z79.01 Long term (current) use of anticoagulants; F17.210 Nicotine dependence, cigarettes, uncomplicated; Z79.1 Long term (current) use of non-steroidal anti-inflammatories (NSAID); Z79.4 Long term (current) use of insulin; Z79.899 Other long term (current) drug therapy; Z83.3 Family history of diabetes mellitus; F10.90 Alcohol use, unspecified, uncomplicated; I51.7 Cardiomegaly
CPT/HCPCS: 36415; 71045; 71046; 80048; 80053; 80069; 82948; 83036; 83735; 84100; 85025; 85055; 87040; 93005; 94640; 96374; 99285; A9270; G0257; G0378; J1644; J1815; J2930; J7030; U0003; U0005

== ENCOUNTER 2022-03-31 22:39 | Inpatient (IN) | payer MEDICARE, OTHER, SELFPAY ==
[2022-03-31] VITALS (12 sets, daily range): BP systolic 106–117; BP diastolic 37–42; PULSE 69–86; RESP 14–21; TEMP 38.2; O2SAT 85–98
--- NOTE | ~2022-03-31 | XR_ITS ---
EXAMINATION: XR chest 1V portable DATE: 04/03/2022 05:56 INDICATION: COVID-19 pneumonia. TECHNIQUE: A single frontal view of the chest was obtained. COMPARISON: Chest single view 03/31/2022, CT abdomen and pelvis 10/25/2021 FINDINGS: There are mild airspace opacities in right mid and lower lung zones. No pleural effusion or pneumothorax. Cardiomegaly is noted. Median sternotomy wires and mediastinal surgical clips are seen , likely from prior coronary artery bypass grafting. A right internal jugular central venous catheter is seen with tip in the right atrium. IMPRESSION: 1. Stable mild airspace opacities in right mid and lower lung zones, consistent with atelectasis vers us pulmonary edema versus pneumonia. 2. Cardiomegaly. Reviewed, dictated and finalized at location A. IMPRESSION: 1. Stable mild airspace opacities in right mid and lower lung zones, consistent with atelectasis versus pulmonary edema versus pneumonia. 2. Cardiomegaly.
--- NOTE | ~2022-03-31 | CT_ITS ---
EXAMINATION: CT brain wo con DATE: 04/01/2022 00:55 INDICATION: Confusion and weakness. TECHNIQUE: Computed tomography (CT) of the head was performed without intravenous contrast. The dose- length product was 681.00 mGy-cm. Automated exposure control and iterative reconstruction technique w ere employed. COMPARISON: CT dated 02/07/2022 FINDINGS: Mild generalized atrophy. There are scattered moderate periventricular and subcortical whit e matter changes, most likely related to small vessel ischemic disease (microangiopathy). No ventricu lomegaly or midline shift. Basilar cisterns are patent. There is intracranial atherosclerosis. There is mild mucosal thickening of the maxillary and ethmoid sinuses. Mastoids are pneumatized. No depress ed skull fractures. IMPRESSION: 1. No acute intracranial abnormality. 2: Mild sinus disease. 3: Chronic age-related findings. Reviewed, dictated and finalized at location A.
--- NOTE | ~2022-03-31 | XR_ITS ---
XR chest 1V portable 03/31/2022 23:54 Indication: Confusion and weakness. Covid positive. Procedure: AP portable chest Comparison: Comparison to multiple prior studies sequentially, with oldest reviewed study dated 01/2022. Findings: Status post median sternotomy for CABG. Cardiomegaly. There is diffuse bilateral interstiti al infiltrates with peribronchial thickening. No pleural effusion or pneumothorax. Large bore right I J central venous catheter tip near the cavoatrial junction. Impression: 1: Diffuse bilateral interstitial infiltrates which may represent edema or less likely pneumonia. Reviewed, dictated and finalized at location A. Impression: 1: Diffuse bilateral interstitial infiltrates which may represent edema or less likely pneumonia.
--- NOTE | 2022-03-31 22:58 | ECG_ITS ---
Measurements Intervals [place] Rate: 71 P: 72 NC: 182 QRS: -81 QRSD: 162 T: 71 QT: 438 QTc: 478 Interpretive Statements SINUS RHYTHM RIGHT BUNDLE BRANCH BLOCK [120+ ms QRS DURATION, UPRIGHT V1, 40+ ms S IN I/aVL/V4/V5/V6] PROBABLE SEPTAL MYOCARDIAL INFARCTION , PROBABLY OLD [35 ms Q WAVE IN V1/V2] COMPARED TO ECG 03/26/2022 13:49:08 NO SIGNIFICANT CHANGES Electronically Signed On 04-01-2022 12:15:46 CDT by Marci Domínguez M.D.
[2022-03-31 23:10] LABS: Glucose Point of Care 167 mg/dl (65-105)
--- NOTE | 2022-03-31 23:20 | ED.GENADULT ---
HPI - General Adult General Chief complaint: Altered Mental Status Stated complaint: covid positive and ams Time Seen by Provider: 03/31/22 23:06 History of Present Illness HPI narrative: Patient 71-year-old female who presents the emergency department with chief complaint of generalized weakness and altered mental status. Patient reports that she has history of recent diagnosis of COVID-19 on the and reports that since then she has been getting more short of breath at home. The family noticed that she was confused and hypoxic. Related Data Home Medications Medication Instructions Recorded Confirmed apixaban 5 mg tablet (Eliquis) 5 mg PO BID 11/03/19 03/26/22 carvedilol 25 mg tablet 25 mg PO BID 11/03/19 03/26/22 insulin degludec 100 unit/mL 32 unit subcut HS 11/03/19 03/26/22 subcutaneous solution (Tresiba U-100 Insulin) pravastatin 40 mg tablet 40 mg PO HS 11/03/19 03/26/22 acetaminophen 500 mg capsule 1,000 mg PO Q6H PRN Pain 02/11/20 03/26/22 sertraline 25 mg tablet 25 mg PO QAM 02/11/20 03/26/22 gabapentin 400 mg capsule 400 mg PO TID 10/09/21 03/26/22 losartan 100 mg tablet 100 mg PO [id number] 10/09/21 03/26/22 nifedipine 30 mg tablet,extended 30 mg PO Q12H 10/09/21 03/26/22 release cetirizine 10 mg tablet 10 mg PO 1XD 02/06/22 03/26/22 insulin aspart U-100 100 unit/mL 8 unit subcut TIDWMEAL 02/28/22 03/26/22 (3 mL) subcutaneous pen (Novolog Flexpen U-100 Insulin aspart) pantoprazole 40 mg tablet,delayed 40 mg PO 1XD PRN Heartburn 02/28/22 03/26/22 release Allergies Allergy/AdvReac Type Severity Reaction Status Date / Time No Known Allergies Allergy Verified 03/26/22 23:14 Review of Systems Review of Systems: A 10 system review of systems was completed on the patient and is negative except for what is stated in the HPI. Nursing and ancillary documentation was reviewed. [facility] Past Medical History Medical History Arterial vascular disease Chronic anemia Coronary artery disease Digital arterial occlusive disease End-stage renal disease on hemodialysis Saturday, Saturday, Saturday. 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 Hemoglobin A1c was 6.8% in February 2020. Osteomyelitis Renal osteodystrophy Volume overload Surgical History Surgical History Amputation of right forefoot :Right 4th and 5th ray amputation in 04/2017. :Right foot transmetatarsal amputation with partial fasciotomy due to wet gangrene, osteomyelitis, and necrotizing fasciitis in May 2017. 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 History of below-knee amputation of both lower extremities Left zdnzc-lju-enms amputation in 2017. Right vldix-etu-sxpp amputation in 02/2020. History of carpal tunnel release History of coronary artery bypass graft History of right above knee amputation (~05/12/20) History of right below knee amputation (~02/2020) History of spinal fusion History of surgical procedure on eye proper using laser Related to diabetic retinopathy. History of vascular surgery Right lower extremity stents in March 2017. Left lower extremity stent in 2014. Family History Family History Mother Diabetes mellitus Father Lung cancer Social History Social History Social History: Code status: Full code. Smoking packs per day: 0.25 Smoking cigarettes per day: 5.0 Years smoked: 60 Smoking pack-years: 15.00 Smoking status: Current every day smoker Tobacco type: cigarettes Second hand tobacco smoke exposure: Yes Smoking end date: 06/03/15 Alcohol intake: never Dri
[2022-03-31 23:36] LABS: Basophils Percent Auto 0.2 % (0.2-1.2); Eosinophils Absolute Auto 0.2 K/mm3 (0-0.3); Eosinophils Percent Auto 4.1 % (0-4.4); Hematocrit 30.5 % (37.0-47.0); Hemoglobin 9.5 g/dL (12.0-15.0); Immature Granulocyte Absolute 0.02 K/mm3 (0.00-0.031); Immature Granulocyte Percent A 0.4 % (0-0.5); Immature Platelet Fraction Pct 9.4 % (0.9-11.2); Lymphocytes Absolute Auto 1.31 K/mm3 (0.9-3.2); Lymphocytes Percent Auto 28.6 % (18.3-44.2); Mean Corpuscular HGB Conc 31.1 g/dl (32-36); Mean Corpuscular Hemoglobin 31.3 pg (26-34); Mean Corpuscular Volume 100.3 fl (80-100); Mean Platelet Volume 12.7 fl (7.4-10.4); Monocytes Absolute Auto 0.4 K/mm3 (0.1-0.6); Monocytes Percent Auto 8.5 % (2.6-8.5); Neutrophils Absolute Auto 2.7 K/mm3 (1.3-6.7); Neutrophils Percent Auto 58.2 % (45.5-73.1); Platelet Count Result 99 k/mm3 (150-375); Red Blood Count 3.04 M/mm3 (4.2-5.4); White Blood Count 4.6 K/mm3 (4.5-10.0)
[2022-03-31 23:45] LABS: INR 1.7; Prothrombin Time 18.9 Seconds (11.1-14.7)
[2022-03-31 23:46] LABS: Partial Thromboplastin Time 54.1 SECONDS (22.3-36.8)
[2022-03-31] MEDS: ALBUTEROL SULFATE (*SP) INHALER 2 PUFF INHALATION (23:46)
[2022-03-31 23:47] LABS: Appearance Urine Cloudy (Clear); Bilirubin Urine Negative (Negative); Blood Urine Trace-lysed (Negative); Color Urine Yellow (Yellow); Glucose Urine UA Trace mg/dL (Negative); Ketones Urine Negative (Negative); Leukocyte Esterase Ur Trace LEU/UL (Negative); Nitrate Urine Negative (Negative); Protein Urine 3+ mg/dL (Negative); Urobilinogen Urine 0.2 mg/dL (<2.0)
[2022-03-31 23:48] LABS: Alanine Aminotransferase 15 U/L (6-35); Albumin Level 2.7 g/dL (3.5-5.1); Alkaline Phosphatase 95 U/L (38-126); Anion Gap 9 mmol/L (8-16); Aspartate Amino Transferase 21 U/L (14-36); Bilirubin,Total 0.2 mg/dL (0.2-1.3); Blood Urea Nitrogen 28 mg/dL (7-17); Calcium 6.2 mg/dL (8.4-10.2); Carbon Dioxide 28 mmol/L (22-30); Chloride 98 mmol/L (98-107); Estimated Glomerular Filt Rate 7; Glucose 167 mg/dL (65-110); Lactic Acid Reflex 1.5 mmol/L (0.7-2.0); Magnesium 1.9 mg/dL (1.6-2.3); Potassium 3.7 mmol/L (3.4-5.0); Sodium 135 mmol/L (137-145)
[2022-03-31 23:53] LABS: Bacteria Urine 2+ /hpf; Mucus Urine Rare /lpf; Squamous Epithelial Cell Urine Few /hpf (Few); WBC Clumps Urine Present /HPF; WBC Urine >75 /hpf
[2022-03-31 23:56] LABS: Add Urine Microscopic? YES
[2022-03-31 23:59] LABS: NT Pro B Type Natriuretic Pept 6300 pg/mL (5-100); Troponin I 0.023 ng/mL (0.000-0.034)
[2022-04-01] VITALS (29 sets, daily range): BP systolic 100–143; BP diastolic 36–93; PULSE 60–81; RESP 12–22; TEMP 36.2–38.2; O2SAT 91–100; BMI 44.4
[2022-04-01 00:02] LABS: Alveolar/Arterial O2 Gradient 135.5 mmHg; Base Excess ABG 2.8 mEq/l (+/-2.0); Fractional Inspired Oxygen 48 %; HCO3 ABG 28.4 mEq/l (22.0-26.0); Oxygen Content ABG 14.8 %vol (16.0-22.0); Oxygen Saturation ABG 98.9 % (95.0-100.0); Oxyhemoglobin 95.6 % THb (90.0-100.0); PCO2 ABG 48.7 mmHg (35.0-45.0); PO2 ABG 151.7 mmHg (80.0-100.0); PO2 FiO2 Ratio Arterial Blood 3.16 %; Total Hemoglobin 10.8 g/dL (12.0-18.0); pH ABG 7.384 (7.350-7.450)
[2022-04-01 00:03] LABS: Site Drawn RIGHT BRACHIAL
[2022-04-01 00:04] LABS: Device NASAL CANNULA
--- NOTE | 2022-04-01 00:16 | PM.IMHP ---
H&P: HPI History of Present Illness Date/Time: 04/01/22 00:16 Chief Complaint: shortness of breath Narrative: This is a 71-year-old female with past medical history significant for end-stage renal disease on hemodialysis, peripheral vascular disease, status post right BKA and left AKA, tobacco dependence, morbid obesity, atrial fibrillation rate controlled anticoagulated, hypertension, insulin-dependent diabetes mellitus, dyslipidemia. patient was just recently discharged from [facility] patient was treated for COPD exacerbation and she was successfully treated and went home however she comes back today with shortness of breath, chest congestion, productive cough, generalized malaise, chills, fevers. history taking was somehow limited due to patient's obtundation, lethargy, preliminary workup was significant for positive COVID-19, a urinalysis was significant for +75 white blood cells per high-power field. Patient is been admitted for further evaluation management and treat. Review of Systems Review of Systems: ROS unobtainable: Yes unobtainable due to mental status ( OBTUNDATION, LETHARGY) [facility] Past Medical History Medical History Arterial vascular disease Chronic anemia Coronary artery disease Digital arterial occlusive disease End-stage renal disease on hemodialysis Saturday, Saturday, Saturday. 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 Hemoglobin A1c was 6.8% in February 2020. Osteomyelitis Renal osteodystrophy Volume overload Surgical History Surgical History Amputation of right forefoot :Right 4th and 5th ray amputation in 04/2017. :Right foot transmetatarsal amputation with partial fasciotomy due to wet gangrene, osteomyelitis, and necrotizing fasciitis in May 2017. 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 History of below-knee amputation of both lower extremities Left [id number] amputation in 2017. Right [id number] amputation in 02/2020. History of carpal tunnel release History of coronary artery bypass graft History of right above knee amputation (~05/12/20) History of right below knee amputation (~02/2020) History of spinal fusion History of surgical procedure on eye proper using laser Related to diabetic retinopathy. History of vascular surgery Right lower extremity stents in March 2017. Left lower extremity stent in 2014. Family History Family History Mother Diabetes mellitus Father Lung cancer Social History Social History Social History: Code status: Full code. Smoking packs per day: 0.25 Smoking cigarettes per day: 5.0 Years smoked: 60 Smoking pack-years: 15.00 Smoking status: Current every day smoker Tobacco type: cigarettes Second hand tobacco smoke exposure: Yes Smoking end date: 06/03/15 Alcohol intake: never Drinks per week: 1 Alcohol use details: Previous social drinker. Substance use: never Substance use type: does not use Has the Lack of Transportation Kept You From Medical Appointments or From Getting Medications?: Yes Within the Past 12 Months, Were You Worried Whether Your Food Would Run Out Before You Got Money to Buy More?: Never True What is Your Housing Situation Today?: I Have Housing Are You Worried That in the Next 2 Months, You May Not Have Your Own Housing to Live In?: No Do You Have Trouble Paying Your Heating Or Electricity Bill?: No Do You Have Trouble Paying For Medicines?: No Are You Currently Unemployed and Looking for Work?: No Highest Level of Education Completed: Grade School Do You Have
[2022-04-01 00:42] LABS: Procalcitonin 0.3 ng/mL
[2022-04-01] MEDS: ONDANSETRON INJ 4 MG/2 ML VIAL IV PUSH (01:47)
--- NOTE | 2022-04-01 02:33 | ADMGEN ---
This patient, Tawana Prado, was admitted to [facility] Surg Room 331-01. Patient/family oriented to hospital policies and general routines including ID bracelet, bed and alarms, visiting hours, pain management, procedures, bathroom and other care routines, personal items, smoking policy, room service/diet, and visiting hours. Information on how to activate the Rapid Response Team has been discussed. Patient/Family are encouraged to report perceived risks to care and to ask questions if they do not understand what they are told or what they should do.
[2022-04-01] MEDS: ALBUTEROL SULFATE (*SP) AEROSOL 1 PUFF 2 PUFF INHALATION ×5 (02:45→20:13)
[2022-04-01 03:18] LABS: Troponin I 0.022 ng/mL (0.000-0.034)
[2022-04-01 08:06] LABS: Glucose Point of Care 161 mg/dl (65-105)
--- NOTE | 2022-04-01 09:34 | PM.CNNEP ---
Assessment and Plan Assessment and plan (1) ESRD (end stage renal disease): Code(s): N18.6 - End stage renal disease Status: Acute Assessment and Plan: the patient has end-stage renal disease. this is due to diabetes and hypertension. She is due for dialysis tomorrow. She does have some volume overload with some swelling and infiltrates on chest x-ray but she has good oxygenation and is not symptomatically short of breath. Will hold off on dialysis today and treat her tomorrow. (2) COVID: Code(s): U07.1 - COVID-19 Status: Acute Assessment and Plan: The patient has COVID. He has just a few symptoms including a cough. She is on respiratory isolation. Consider steroid since she is on oxygen? (3) AMS (altered mental status): Code(s): R41.82 - Altered mental status, unspecified Status: Acute Assessment and Plan: It is hard to know whether the altered mental status is due to the COVID or due to the bladder infection but she is getting treatment for both. Her altered mental status is better today. (4) UTI (urinary tract infection): Code(s): N39.0 - Urinary tract infection, site not specified Status: Acute Assessment and Plan: The patient has pyuria. Urine culture is pending. She is on ceftriaxone (5) Anemia: Code(s): D64.9 - Anemia, unspecified Status: Chronic Assessment and Plan: hemoglobin is below 10. Will give Epogen with dialysis. (6) Thrombocytopenia: Code(s): D69.6 - Thrombocytopenia, unspecified Status: Acute Assessment and Plan: This has been an issue since October of this year. 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 History of Present Illness Reason for Consult Consult date: 04/01/22 Chief Complaint Chief complaint: covid-19, pnuemonia, esrd, uti History of Present Illness Narrative: Tawana is a very pleasant 71-year-old lady who has multiple medical problems including end-stage renal disease on dialysis 3 times a week, peripheral vascular disease, status post bilateral lower extremity amputations, hyperlipidemia, hypertension, diabetes, osteomyelitis in the past, anemia of chronic kidney disease, renal osteodystrophy, coronary disease , atrial fibrillation. The patient dialyzes on Wednesdays and Fridays. She went to dialysis all 3 times last week she thinks.. The patient was in the hospital last week for COPD exacerbation. She was treated supportively and improved and was discharged. She was home for a few days but then became weak. Apparently she became short of breath as well. The patient came to the hospital. She was confused yesterday on admission and hypoxic. The patient was given oxygen and supportive care and admitted to the floor. COVID test was positive so she is on respiratory isolation. Today the patient does not remember much of yesterday. She is fairly alert and oriented and remembers who I am. She is somewhat tangential. She denies shortness of breath. She does have a little bit of a cough. She has no nausea or vomiting. She ate all of her breakfast. Review of Systems Constitutional: Constitutional: Reports no additional constitutional complaints Eyes: Eyes: Reports no ad
[2022-04-01 11:54] LABS: Glucose Point of Care 254 mg/dl (65-105)
--- NOTE | 2022-04-01 12:02 | PM.IMPN ---
Progress Note: A&P Assessment and Plan (1) AMS (altered mental status): Code(s): R41.82 - Altered mental status, unspecified Status: Acute Assessment and Plan: Patient alert but confused. CT the brain showing no acute findings. Routine lab work showing no acute findings to explain her altered mental status. Probably related to COVID and/ or UTI. Continue to monitor. Further workup if her condition does not improve with appropriate treatment. (2) COVID: Code(s): U07.1 - COVID-19 Status: Acute Assessment and Plan: COVID positive on 03/26. CXR on 03/26 showing bibasilar atelectasis. She did not have an o2 requirement so no treatment for COVID at that time. Patient returns with SOB and now with O2 requirement. CXR showing diffuse bilateral interstitial infiltrates; possibly PNA but more likely related to fluid overload. Trop negative x2. Started on Cefepime and Vanco. Started on Decadron. Unclear if she has been compliant with HD. Plan for HD tomorrow. Repeat CXR after HD. (3) UTI (urinary tract infection): Code(s): N39.0 - Urinary tract infection, site not specified Status: Acute Assessment and Plan: UA noted but has been abnormal before with negative cultures. Will continue IV abx. Follow up on BCx and UCx results. (4) End-stage renal disease on hemodialysis: Code(s): N18.6 - End stage renal disease; Z99.2 - Dependence on renal dialysis Status: Acute Assessment and Plan: Patient due for HD tomorrow. Nephrology consulted and appreciate their input. 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 The patient's blood glucose was reviewed on 04/01/22 Glucose remains reasonably well controlled. Continue AccuCheks covering with sliding scale. Hypoglycemia protocol available as needed. Continue to monitor Plan TCP - Plt count at 99K. Plt count has been low for most of the year. Check b12 level. COVID could be contributing to her low plt count. Subjective Date/time seen: 04/01/22 12:02 Interval history: 71yo female with ESRD, DM and recent COVID infection who was recently hospitalized here and returns for GNW and altered mental status. Patient is alert but confused. She is unable to provide history. Review of Systems Review of Systems: ROS unobtainable: Yes unobtainable due to mental status Exam Narrative: Tm 100.7 97.6 138/43 64 12 100% 4L Gen - NARD lying semi-recumbent in bed. Chest - bibasilar crackles. right upper chest tunneled hemodialysis catheter noted. CV - RRR S1/S2.Telemetry showing no alarms Abd - Soft, NT/ND, Positive BS Ext - 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 Neuro - Alert but confused. Psych - Nml mood and affect Skin - Warm and dry Objective Data Vital Signs Vital Signs: Vital Signs - 24 hr 03/31/22 22:44 03/31/22 23:26 03/31/22 23:26 Temperature 100.7 F H Pulse Rate 74 Respiratory Rate 19 Blood Pressure Pulse Oximetry 93 85 L 90 Oxygen Delivery Nasal Cannula Room Air Nasal Cannula Oxygen Flow Rate 2 2 03/31/22 23:26 03/31/22 23:26 03/31/22 23:26 Temperature Pulse Rate Respiratory Rate Blood Pressure Pulse Oximetry 85 L 88 L 89 L Oxygen Delivery Nasal Cannula Nasal Cannula Nasal Cannula Oxygen Flow Rate 2 4 6 03/31/22 23:45 03/31/22 23:47 04/01/22 00:00 Temperature Pulse Rate 69 69 69 Respiratory Rate 16 20 20 Blood Pressure 107/41 L Pulse Oximetry 90 Oxygen Delivery Oxygen Flow Rate 04/01/22 01:43 03/31/22 23:46 04/01/22 02:26 Temperature 100.7 F H Pulse Rate 76 Respiratory Rate 20 Blood Pressure Pulse Oximetry 95 Oxygen Delivery Nasal Cannula Oxygen Flow Rate 4 03/31/22 22:56 03/31/22 23:00 03/31/22
[2022-04-01] MEDS: hydrALAZINE HCL 50 MG TABLET PO ×2 (14:15→17:43)
[2022-04-01] MEDS: LOSARTAN POTASSIUM 100 MG TABLET PO (14:16)
[2022-04-01] MEDS: LORATADINE 10 MG TABLET PO (14:16)
[2022-04-01] MEDS: GABAPENTIN 400 MG CAPSULE PO ×2 (14:16→21:04)
[2022-04-01] MEDS: PANTOPRAZOLE 40 MG TABLET PO (14:17)
[2022-04-01] MEDS: NIFEdipine 30 MG TAB.ER.24 PO ×2 (14:17→21:04)
[2022-04-01] MEDS: carvediloL 25 MG TABLET PO ×2 (14:17→21:04)
[2022-04-01 16:24] LABS: Glucose Point of Care 284 mg/dl (65-105)
[2022-04-01] MEDS: INSULIN ASPART (*BKC) 100 UNITS/ML SUB-Q (17:42)
[2022-04-01] MEDS: SERTRALINE HCL 25 MG TABLET PO (17:43)
[2022-04-01] MEDS: ASPIRIN 81 MG CHEWABLE TABLET PO (17:43)
[2022-04-01] MEDS: APIXABAN 5 MG TABLET PO (17:44)
[2022-04-01] MEDS: PRAVASTATIN SODIUM 20 MG TABLET 40 MG PO (21:04)
[2022-04-01] MEDS: INSULIN GLARGINE (*BKC) 100 UNITS/ML 32 UNITS SUB-Q (21:05)
[2022-04-01 21:15] LABS: Glucose Point of Care 259 mg/dl (65-105)
[2022-04-02] VITALS (24 sets, daily range): BP systolic 100–145; BP diastolic 35–66; PULSE 60–77; RESP 16–20; TEMP 35.9–37; O2SAT 98–99
[2022-04-02] MEDS: ALBUTEROL SULFATE (*SP) AEROSOL 1 PUFF 2 PUFF INHALATION ×3 (01:04→21:35)
[2022-04-02] MEDS: GABAPENTIN 400 MG CAPSULE PO ×3 (06:39→22:13)
[2022-04-02 06:52] LABS: Basophils Percent Auto 0.3 % (0.2-1.2); Hematocrit 31.1 % (37.0-47.0); Hemoglobin 9.9 g/dL (12.0-15.0); Immature Granulocyte Absolute 0.02 K/mm3 (0.00-0.031); Immature Granulocyte Percent A 0.6 % (0-0.5); Lymphocytes Absolute Auto 0.68 K/mm3 (0.9-3.2); Lymphocytes Percent Auto 21.3 % (18.3-44.2); Mean Corpuscular HGB Conc 31.8 g/dl (32-36); Mean Corpuscular Hemoglobin 31.5 pg (26-34); Mean Platelet Volume 12.6 fl (7.4-10.4); Monocytes Absolute Auto 0.3 K/mm3 (0.1-0.6); Monocytes Percent Auto 8.5 % (2.6-8.5); Neutrophils Absolute Auto 2.2 K/mm3 (1.3-6.7); Neutrophils Percent Auto 69.3 % (45.5-73.1); Platelet Count Result 101 k/mm3 (150-375); Red Blood Count 3.14 M/mm3 (4.2-5.4); Red Cell Distribution Width 11.9 % (11.5-14.5); White Blood Count 3.2 K/mm3 (4.5-10.0)
[2022-04-02 07:06] LABS: Albumin Level 2.7 g/dL (3.5-5.1); Anion Gap 10 mmol/L (8-16); Blood Urea Nitrogen 45 mg/dL (7-17); Carbon Dioxide 26 mmol/L (22-30); Chloride 97 mmol/L (98-107); Estimated Glomerular Filt Rate 5; Glucose 237 mg/dL (65-110); Phosphorus 6.7 mg/dL (2.5-4.5); Potassium 4.6 mmol/L (3.4-5.0); Sodium 133 mmol/L (137-145)
[2022-04-02 07:54] LABS: Glucose Point of Care 265 mg/dl (65-105)
[2022-04-02 08:07] LABS: Folic Acid 9.3 ng/mL (2.76->20)
[2022-04-02 08:21] LABS: Thyroid Stimulating Hormone Reflex 0.801 uIU/mL (0.465-4.68)
[2022-04-02] MEDS: carvediloL 25 MG TABLET PO ×2 (09:48→22:11)
[2022-04-02] MEDS: ASPIRIN 81 MG CHEWABLE TABLET PO (09:48)
[2022-04-02] MEDS: LORATADINE 10 MG TABLET PO (09:48)
[2022-04-02] MEDS: SERTRALINE HCL 25 MG TABLET PO (09:48)
[2022-04-02] MEDS: APIXABAN 5 MG TABLET PO ×2 (09:49→17:32)
[2022-04-02] MEDS: PANTOPRAZOLE 40 MG TABLET PO (09:49)
[2022-04-02] MEDS: INSULIN ASPART (*BKC) 100 UNITS/ML SUB-Q ×2 (09:49→17:32)
[2022-04-02] MEDS: NIFEdipine 30 MG TAB.ER.24 PO ×2 (09:49→21:59)
[2022-04-02] MEDS: hydrALAZINE HCL 50 MG TABLET PO ×2 (09:49→17:32)
--- NOTE | 2022-04-02 11:14 | PM.IMPN ---
Progress Note: A&P Assessment and Plan (1) AMS (altered mental status): Code(s): R41.82 - Altered mental status, unspecified Status: Acute Assessment and Plan: Patient was alert but confused on admission. CT the brain showing no acute findings. Routine lab work showing no acute findings to explain her altered mental status. Probably related to UTI. Her mental status is much better today. Continue to monitor. Resolving (2) UTI (urinary tract infection): Code(s): N39.0 - Urinary tract infection, site not specified Status: Acute Assessment and Plan: UA noted and UCx growing EColi. Will continue IV abx. Follow up on BCx and UCx results. (3) COVID: Code(s): U07.1 - COVID-19 Status: Acute Assessment and Plan: COVID positive on 03/26. CXR on 03/26 showing bibasilar atelectasis. She was admitted but did not have an O2 requirement so no treatment for COVID at that time. Patient returns with SOB and now with O2 requirement. CXR showing diffuse bilateral interstitial infiltrates; possibly PNA but more likely related to fluid overload. Trop negative x2. Started on Cefepime and Vanco. Started on Decadron. She states she has been compliant with HD. Plan for HD today. Repeat CXR tomorrow (4) End-stage renal disease on hemodialysis: Code(s): N18.6 - End stage renal disease; Z99.2 - Dependence on renal dialysis Status: Acute Assessment and Plan: Patient due for HD today. Nephrology following and appreciate their input. 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 The patient's blood glucose was reviewed on 04/02 Glucose poorly controlled. Continue AccuCheks covering with sliding scale. Hypoglycemia protocol available as needed. Resume meal time insulin. Advance Lantus. Continue to monitor Plan TCP - Plt count at 101K. Plt count has been low for most of the year. B12 level okay. COVID could be contributing to her low plt count. Follow Subjective Date/time seen: 04/02/22 11:14 Interval history: 71yo female with ESRD, DM and recent COVID infection who was recently hospitalized here and returns for GNW and altered mental status. Patient is more oriented today. SOB better. No n/v. No CP. She did do HD the week prior. Exam Narrative: AF 97.8 143/65 63 20 98% 4L Gen - NARD lying semi-recumbent in bed. Chest - R>L mid and lower lung inspiratory crackles. nml RR. right upper chest tunneled hemodialysis catheter noted. CV - RRR S1/S2.Telemetry showing significant dysrhythmias Abd - Soft, NT/ND, Positive BS Ext - 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 Neuro - Alert and oriented x3 (not month) Psych - Nml mood and affect Skin - Warm and dry Objective Data Vital Signs Vital Signs: Vital Signs - 24 hr 04/01/22 14:17 04/01/22 12:00 04/01/22 16:00 Temperature Pulse Rate 64 64 61 Respiratory Rate Blood Pressure Pulse Oximetry Oxygen Delivery Oxygen Flow Rate 04/01/22 20:15 04/01/22 21:04 04/01/22 22:00 Temperature 97.2 F L Pulse Rate 61 62 Respiratory Rate 22 H Blood Pressure 143/93 H Pulse Oximetry 100 100 Oxygen Delivery Nasal Cannula Oxygen Flow Rate 2 04/01/22 20:00 04/02/22 00:00 04/02/22 04:00 Temperature Pulse Rate 60 63 64 Respiratory Rate Blood Pressure Pulse Oximetry Oxygen Delivery Oxygen Flow Rate 04/02/22 05:47 04/02/22 08:05 04/02/22 09:48 Temperature 96.9 F L Pulse Rate 68 68 Respiratory Rate 20 Blood Pressure 140/49 L Pulse Oximetry 99 98 Oxygen Delivery Nasal Cannula Oxygen Flow Rate 2 04/02/22 10:27 04/02/22 10:19 04/02/22 10:19 Temperature 97.8 F Pulse Rate 63 64 Respiratory Rate 20 Blood Pressure 143/65 H 145
[2022-04-02 11:31] LABS: Glucose Point of Care 166 mg/dl (65-105)
--- NOTE | 2022-04-02 12:01 | PM.PNNEP ---
Progress Note: A&P Assessment and Plan (1) ESRD (end stage renal disease): Code(s): N18.6 - End stage renal disease Status: Acute Assessment and Plan: the patient has end-stage renal disease. this is due to diabetes and hypertension. the patient is going to get dialysis today. (2) COVID: Code(s): U07.1 - COVID-19 Status: Acute Assessment and Plan: The patient has COVID. He has just a few symptoms including a cough. The patient is on dexamethasone She is on respiratory isolation. (3) AMS (altered mental status): Code(s): R41.82 - Altered mental status, unspecified Status: Acute Assessment and Plan: seems to be thinking a little bit better today. (4) UTI (urinary tract infection): Code(s): N39.0 - Urinary tract infection, site not specified Status: Acute Assessment and Plan: The patient has pyuria. Urine culture Shows E coli. Sensitivities are pending. She is on ceftriaxone (5) Anemia: Code(s): D64.9 - Anemia, unspecified Status: Chronic Assessment and Plan: hemoglobin is below 10. Patient will get Epogen with dialysis. (6) Thrombocytopenia: Code(s): D69.6 - Thrombocytopenia, unspecified Status: Acute Assessment and Plan: This has been an issue since October of this year. (7) Renal osteodystrophy: Code(s): N25.0 - Renal osteodystrophy Status: Acute Assessment and Plan: Will check a phosphorus in the morning (8) Hypertension: Qualifiers: Hypertension type: renovascular hypertension Qualified Code(s): I15.0 - Renovascular hypertension Code(s): I10 - Essential (primary) hypertension Status: Chronic Assessment and Plan: blood pressure is well controlled (9) Insulin dependent type 2 diabetes mellitus: Code(s): E11.9 - Type 2 diabetes mellitus without complications; Z79.4 - custodial (current) use of insulin Status: Chronic Assessment and Plan: on Accu-Cheks and sliding-scale insulin per hospitalist. Subjective Date/time seen: 04/02/22 12:01 Interval history: Tawana is feeling a little bit better. Still weak. She has a little bit of a cough. Mild dyspnea. Review of Systems Cardiovascular: Cardiovascular: Reports no additional cardiovascular complaints Respiratory: Respiratory: Reports no additional respiratory complaints Gastrointestinal: Gastrointestinal: Reports no additional gastrointestinal complaints Genitourinary: Genitourinary: Reports no additional female genitourinary complaints Exam Narrative: WDWN in NAD skin no rash head ncat lungs Rare crackles at the bases cor reg no rub abd BS+ nontender and soft ext no edema. Objective Data Vital Signs Vital Signs: Vital Signs - 24 hr 04/01/22 14:17 04/01/22 16:00 04/01/22 20:15 Temperature Pulse Rate 64 61 Respiratory Rate Blood Pressure Pulse Oximetry 100 Oxygen Delivery Nasal Cannula Oxygen Flow Rate 2 04/01/22 21:04 04/01/22 22:00 04/01/22 20:00 Temperature 36.2 C L Pulse Rate 61 62 60 Respiratory Rate 22 H Blood Pressure 143/93 H Pulse Oximetry 100 Oxygen Delivery Oxygen Flow Rate 04/02/22 00:00 04/02/22 04:00 04/02/22 05:47 Temperature 36.1 C L Pulse Rate 63 64 68 Respiratory Rate 20 Blood Pressure 140/49 L Pulse Oximetry 99 Oxygen Delivery Oxygen Flow Rate 04/02/22 08:05 04/02/22 09:48 04/02/22 10:27 Temperature Pulse Rate 68 63 Respiratory Rate Blood Pressure 143/65 H Pulse Oximetry 98 Oxygen Delivery Nasal Cannula Oxygen Flow Rate 2 04/02/22 10:19 04/02/22 10:19 Temperature 36.6 C Pulse Rate 64 Respiratory Rate 20 Blood Pressure 145/61 H Pulse Oximetry Oxygen Delivery Oxygen Flow Rate 4 Intake/Output Intake/Output: Intake & Output 03/30/22 03/31/22 04/01/22 04/02/22 23:59 23:59
[2022-04-02 16:37] LABS: Glucose Point of Care 245 mg/dl (65-105)
[2022-04-02 21:56] LABS: Glucose Point of Care 186 mg/dl (65-105)
[2022-04-02] MEDS: PRAVASTATIN SODIUM 20 MG TABLET 40 MG PO (21:57)
[2022-04-02] MEDS: INSULIN GLARGINE (*BKC) 100 UNITS/ML 36 UNITS SUB-Q (22:05)
[2022-04-03] VITALS (11 sets, daily range): BP systolic 126–143; BP diastolic 39–76; PULSE 62–80; RESP 16–20; TEMP 36.6–37.5; O2SAT 92–100
[2022-04-03] MEDS: ALBUTEROL SULFATE (*SP) AEROSOL 1 PUFF 2 PUFF INHALATION ×3 (03:11→14:07)
[2022-04-03 06:21] LABS: Basophils Percent Auto 0.2 % (0.2-1.2); Eosinophils Percent Auto 0.2 % (0-4.4); Hematocrit 31.3 % (37.0-47.0); Hemoglobin 9.9 g/dL (12.0-15.0); Immature Granulocyte Absolute 0.07 K/mm3 (0.00-0.031); Immature Granulocyte Percent A 1.4 % (0-0.5); Lymphocytes Absolute Auto 1.18 K/mm3 (0.9-3.2); Lymphocytes Percent Auto 23.9 % (18.3-44.2); Mean Corpuscular HGB Conc 31.6 g/dl (32-36); Mean Corpuscular Hemoglobin 31.7 pg (26-34); Mean Corpuscular Volume 100.3 fl (80-100); Mean Platelet Volume 12.3 fl (7.4-10.4); Monocytes Absolute Auto 0.5 K/mm3 (0.1-0.6); Monocytes Percent Auto 9.7 % (2.6-8.5); Neutrophils Absolute Auto 3.2 K/mm3 (1.3-6.7); Neutrophils Percent Auto 64.6 % (45.5-73.1); Platelet Count Result 112 k/mm3 (150-375); Red Blood Count 3.12 M/mm3 (4.2-5.4); Red Cell Distribution Width 11.9 % (11.5-14.5); White Blood Count 4.9 K/mm3 (4.5-10.0)
[2022-04-03 06:57] LABS: Albumin Level 2.8 g/dL (3.5-5.1); Anion Gap 8 mmol/L (8-16); Blood Urea Nitrogen 33 mg/dL (7-17); Carbon Dioxide 32 mmol/L (22-30); Chloride 97 mmol/L (98-107); Estimated Glomerular Filt Rate 9; Glucose 100 mg/dL (65-110); Phosphorus 4.2 mg/dL (2.5-4.5); Potassium 3.8 mmol/L (3.4-5.0); Sodium 137 mmol/L (137-145)
[2022-04-03] MEDS: ERTAPENEM SODIUM 0.5 GM in SODIUM CHLORIDE 0.9% IV 50 ML IVPB (09:00)
[2022-04-03 09:04] LABS: Glucose Point of Care 73 mg/dl (65-105)
[2022-04-03] MEDS: PANTOPRAZOLE 40 MG TABLET PO (09:36)
[2022-04-03] MEDS: GABAPENTIN 400 MG CAPSULE PO ×3 (09:36→22:41)
[2022-04-03] MEDS: carvediloL 25 MG TABLET PO ×2 (09:36→22:41)
[2022-04-03] MEDS: SERTRALINE HCL 25 MG TABLET PO (09:36)
[2022-04-03] MEDS: LORATADINE 10 MG TABLET PO (09:36)
[2022-04-03] MEDS: ASPIRIN 81 MG CHEWABLE TABLET PO (09:36)
[2022-04-03] MEDS: NIFEdipine 30 MG TAB.ER.24 PO ×2 (09:36→22:42)
[2022-04-03] MEDS: APIXABAN 5 MG TABLET PO ×2 (09:37→17:46)
[2022-04-03] MEDS: hydrALAZINE HCL 50 MG TABLET PO ×3 (09:37→17:46)
[2022-04-03] MEDS: LOSARTAN POTASSIUM 100 MG TABLET PO (09:37)
--- NOTE | 2022-04-03 10:53 | PM.PNNEP ---
Progress Note: A&P Assessment and Plan (1) ESRD (end stage renal disease): Code(s): N18.6 - End stage renal disease Status: Acute Assessment and Plan: the patient has end-stage renal disease. this is due to diabetes and hypertension. she is due for hd tomorrow. (2) COVID: Code(s): U07.1 - COVID-19 Status: Acute Assessment and Plan: The patient has COVID. He has just a few symptoms including a cough. The patient is on dexamethasone She is on respiratory isolation. (3) AMS (altered mental status): Code(s): R41.82 - Altered mental status, unspecified Status: Acute Assessment and Plan: mental status is better. (4) UTI (urinary tract infection): Code(s): N39.0 - Urinary tract infection, site not specified Status: Acute Assessment and Plan: The patient has pyuria. Urine culture Shows E coli. Sensitivities show ESBL. getting ertapenem now. (5) Anemia: Code(s): D64.9 - Anemia, unspecified Status: Chronic Assessment and Plan: hemoglobin is below 10. Patient will get Epogen with dialysis. (6) Thrombocytopenia: Code(s): D69.6 - Thrombocytopenia, unspecified Status: Acute Assessment and Plan: This has been an issue since October of this year. 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 Subjective Date/time seen: 04/03/22 10:53 Interval history: Tawana is feeling better. no sob. Exam Narrative: WDWN in NAD skin no rash head ncat lungs Rare crackles at the bases cor reg no rub or gallop abd BS+ nontender and soft ext no edema or cyanosis.. Objective Data Vital Signs Vital Signs: Vital Signs - 24 hr 04/02/22 10:57 04/02/22 11:00 04/02/22 11:30 Temperature Pulse Rate 77 67 60 Respiratory Rate Blood Pressure 141/51 H 130/66 117/56 L Pulse Oximetry Oxygen Delivery Oxygen Flow Rate 04/02/22 12:00 04/02/22 12:30 04/02/22 13:00 Temperature Pulse Rate 61 60 60 Respiratory Rate Blood Pressure 133/56 L 132/57 L 120/58 L Pulse Oximetry Oxygen Delivery Oxygen Flow Rate 04/02/22 13:30 04/02/22 13:58 04/02/22 14:13 Temperature 36.8 C Pulse Rate 75 63 63 Respiratory Rate 16 Blood Pressure 100/53 L 117/53 L 144/54 H Pulse Oximetry Oxygen Delivery Oxygen Flow Rate 04/02/22 14:00 04/02/22 12:00 04/02/22 16:00 Temperature 35.9 C L Pulse Rate 68 61 65 Respiratory Rate 16 Blood Pressure 109/35 L Pulse Oximetry 98 Oxygen Delivery Oxygen Flow Rate 04/02/22 22:11 04/02/22 22:00 04/02/22 21:40 Temperature 37.0 C Pulse Rate 66 63 Respiratory Rate 18 Blood Pressure 140/35 L Pulse Oximetry 99 98 Oxygen Delivery Nasal Cannula Oxygen Flow Rate 2 04/02/22 20:00 04/03/22 06:00 04/03/22 08:33 Temperature 36.8 C 36.8 C Pulse Rate 66 66 63 Respiratory Rate 18 20 16 Blood Pressure 139/39 L 137/42 L Pulse Oximetry 99 100 100 Oxygen Delivery Nasal Cannula Oxygen Flow Rate 2 04/03/22 08:57 04/03/22 09:36 04/03/22 09:30 Temperature Pulse Rate 78 68 Respiratory Rate 16 Blood Pressure Pulse Oximetry 100 Oxygen Delivery Nasal Cannula Oxygen Flow Rate 2 Intake/Output Intake/Output: Intak
[2022-04-03 11:33] LABS: Glucose Point of Care 118 mg/dl (65-105)
--- NOTE | 2022-04-03 11:36 | PM.IMPN ---
Progress Note: A&P Assessment and Plan (1) AMS (altered mental status): Code(s): R41.82 - Altered mental status, unspecified Status: Acute Assessment and Plan: Patient was alert but confused on admission. CT the brain showing no acute findings. Routine lab work showing no acute findings to explain her altered mental status. Probably related to UTI. Her mental status has returned to baseline. Continue to monitor. Resolved (2) UTI (urinary tract infection): Code(s): N39.0 - Urinary tract infection, site not specified Status: Acute Assessment and Plan: UA noted and UCx growing ESBL EColi. BCx NGTD. Changed to Ertapenem. Discussed with PharmD ID about abx choices with HD. He recommended Ertapenem 500mg thrice weekly after HD. Plan to discharge tomorrow after HD and a dose of Ertapenem. (3) COVID: Code(s): U07.1 - COVID-19 Status: Acute Assessment and Plan: COVID positive on 03/26. CXR on 03/26 showing bibasilar atelectasis. She was admitted but did not have an O2 requirement so no treatment for COVID at that time. Patient returns with SOB and now with O2 requirement. She states she has been compliant with HD. CXR showing diffuse bilateral interstitial infiltrates; possibly PNA vs fluid overload. Trop negative x2. CXR today after HD still showing mild airspace disease. Started on Cefepime and Vanco but now changed to Ertapenem. Continue Decadron. (4) End-stage renal disease on hemodialysis: Code(s): N18.6 - End stage renal disease; Z99.2 - Dependence on renal dialysis Status: Acute Assessment and Plan: Nephrology following and appreciate their input. Continue HD per nephrology (5) Insulin dependent type 2 diabetes mellitus: Code(s): E11.9 - Type 2 diabetes mellitus without complications; Z79.4 - mechatronics technologist (current) use of insulin Status: Chronic Assessment and Plan: A1c 6.9. The patient's blood glucose was reviewed on 04/03 Glucose better controled but still widely flucuating 73-235 Continue AccuCheks covering with sliding scale. Hypoglycemia protocol available as needed. Continue meal time insulin. Decrease Lantus since morning glucose was 100. Continue to monitor Plan TCP - Plt count at 112K. Plt count has been low for most of the year. B12 level okay. COVID could be contributing to her low plt count. Follow Subjective Date/time seen: 04/03/22 11:36 Interval history: 71yo female with ESRD, DM and recent COVID infection who was recently hospitalized here and returns for GNW and altered mental status. Patient has a nonproductive cough. Eating well. No chest pain, shortness of breath, nausea or vomiting. Exam Narrative: AF 98.2 137/42 68 16 100% 2L Gen - NARD lying semi-recumbent in bed. Chest -bilateraly mid and lower lung field inspiratory crackles, nml RR. 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 Neuro - Alert and appropriate Psych - Nml mood and affect Skin - Warm and dry Objective Data Vital Signs Vital Signs: Vital Signs - 24 hr 04/02/22 12:00 04/02/22 12:30 04/02/22 13:00 Temperature Pulse Rate 61 60 60 Respiratory Rate Blood Pressure 133/56 L 132/57 L 120/58 L Pulse Oximetry Oxygen Delivery Oxygen Flow Rate 04/02/22 13:30 04/02/22 13:58 04/02/22 14:13 Temperature 98.2 F Pulse Rate 75 63 63 Respiratory Rate 16 Blood Pressure 100/53 L 117/53 L 144/54 H Pulse Oximetry Oxygen Delivery Oxygen Flow Rate 04/02/22 14:00 04/02/22 12:00 04/02/22 16:00 Temperature 96.6 F L Pulse Rate 68 61 65 Respiratory Rate 16 Blood Pressure 109/35 L Pulse Oximetry 98 Oxygen Delivery Oxygen Flow Rate 04/02/22 22:11 04/02/22 22:00 04/02/22 21:40 Temperature 98.6 F Pulse Rate 66 63 Respiratory Rate 18 Blood Pressure
--- NOTE | 2022-04-03 12:08 | IDPHARM ---
Background The patient is currently receiving ertapenem for the management of an ESBL E coli UTI. The patient's PMH includes ESRD receiving hemodialysis. Assessment/Recommendation/Discussion Upon discussing with the patient's provider it was determined that a post-HD dosing based regimen would be most ideal for this patient to facilitate discharge. Unfortunately, given the resistance profile of the organism, carbapenems, specifically ertapenem is likely the most appropriate. Post-HD dosing for ertapenem is available at 500 mg - 1000 mg given after dialysis on dialysis days only. I had contacted [employer] [facility] to confirm the following: Ertapenem remains sensitive and Ertapenem's JIA for this isolate is <= 0.5 mcg/mL. They will be releasing this information shortly. The references that relate the thrice-weekly post-HD dosing scheme are PMID's: [id number], [id number], [id number] and are all pharmacokinetic studies. Most notably the study notated by the first PMID found 500 mg daily to be sufficient in maintaining a plasma level of 2 mcg/mL (which is sufficient for our patient's isolate with an JIA of less than or equal to 0.5 mcg/mL). The other two reference the 1-gram dosing strategem. One study was a single-dose PK study while the second relates the authors' success with their pilot boat deckhand study of 1g thrice weekly with this agent. Through this, it appears that an ertapenem 500 mg thrice weekly after dialysis dosing seems appropriate for this patient given the sufficiently low JIA's of the E coli to carbapenems. Please consider reaching out if I may be of further assistance. Thank you for the interesting consult. Carlos Domínguez, PharmD Infectious Disease/Antimicrobial Stewardship Pharmacist 04/03/22; [id number]
[2022-04-03 16:41] LABS: Glucose Point of Care 235 mg/dl (65-105)
[2022-04-03] MEDS: INSULIN ASPART (*BKC) 100 UNITS/ML SUB-Q (17:47)
[2022-04-03] MEDS: INSULIN ASPART (*BKC) 100 UNITS/ML 8 UNITS SUB-Q (17:47)
[2022-04-03] MEDS: PRAVASTATIN SODIUM 20 MG TABLET 40 MG PO (22:40)
[2022-04-03 22:48] LABS: Glucose Point of Care 127 mg/dl (65-105)
[2022-04-04] VITALS (22 sets, daily range): BP systolic 105–163; BP diastolic 38–62; PULSE 63–72; RESP 14–20; TEMP 35.9–36.8; O2SAT 92–100
--- NOTE | 2022-04-04 01:30 | PCRCNOTE ---
window of time for administration has passed. next available administration at 0200.
[2022-04-04] MEDS: ALBUTEROL SULFATE (*SP) AEROSOL 1 PUFF 2 PUFF INHALATION ×2 (03:46→15:42)
[2022-04-04 07:45] LABS: Albumin Level 2.8 g/dL (3.5-5.1); Anion Gap 11 mmol/L (8-16); Blood Urea Nitrogen 47 mg/dL (7-17); Carbon Dioxide 30 mmol/L (22-30); Chloride 95 mmol/L (98-107); Estimated Glomerular Filt Rate 6; Glucose 108 mg/dL (65-110); Phosphorus 4.4 mg/dL (2.5-4.5); Potassium 3.7 mmol/L (3.4-5.0); Sodium 136 mmol/L (137-145)
[2022-04-04 08:31] LABS: Glucose Point of Care 98 mg/dl (65-105)
[2022-04-04 11:53] LABS: Glucose Point of Care 123 mg/dl (65-105)
[2022-04-04] MEDS: EPOETIN ALFA-EPBX 10,000 UNITS/ML VIAL 10000 UNITS IV PUSH (12:19)
[2022-04-04] MEDS: SODIUM CHLORIDE 0.9% IV 1,000 ML 999 ML IV CONT (12:19)
[2022-04-04] MEDS: NIFEdipine 30 MG TAB.ER.24 PO ×2 (13:16→21:11)
[2022-04-04] MEDS: APIXABAN 5 MG TABLET PO ×2 (13:17→17:25)
[2022-04-04] MEDS: LORATADINE 10 MG TABLET PO (13:17)
[2022-04-04] MEDS: SERTRALINE HCL 25 MG TABLET PO (13:17)
[2022-04-04] MEDS: PANTOPRAZOLE 40 MG TABLET PO (13:17)
[2022-04-04] MEDS: ASPIRIN 81 MG CHEWABLE TABLET PO (13:18)
[2022-04-04] MEDS: GABAPENTIN 400 MG CAPSULE PO ×3 (13:18→22:34)
[2022-04-04 16:19] LABS: Glucose Point of Care 177 mg/dl (65-105)
[2022-04-04] MEDS: hydrALAZINE HCL 50 MG TABLET PO (17:41)
[2022-04-04] MEDS: INSULIN ASPART (*BKC) 100 UNITS/ML 8 UNITS SUB-Q (17:43)
[2022-04-04] MEDS: ERTAPENEM SODIUM 0.5 GM in SODIUM CHLORIDE 0.9% IV 50 ML IVPB (17:45)
--- NOTE | 2022-04-04 18:17 | PC.NURSE ---
Pt was in dialysis this AM so cardiac meds and insulin held and given as appropriate for vitals and blood sugar.
--- NOTE | 2022-04-04 19:13 | PM.PNNEP ---
Progress Note: A&P Assessment and Plan (1) ESRD (end stage renal disease): Code(s): N18.6 - End stage renal disease Status: Acute Assessment and Plan: the patient has end-stage renal disease. this is due to diabetes and hypertension. she had treatment today earlier (2) COVID: Code(s): U07.1 - COVID-19 Status: Acute Assessment and Plan: The patient has COVID. He has just a few symptoms including a cough. The patient is on dexamethasone She is on respiratory isolation. (3) AMS (altered mental status): Code(s): R41.82 - Altered mental status, unspecified Status: Acute Assessment and Plan: mental status is better. (4) UTI (urinary tract infection): Code(s): N39.0 - Urinary tract infection, site not specified Status: Acute Assessment and Plan: The patient has pyuria. Urine culture Shows E coli. Sensitivities show ESBL. getting ertapenem now. id pharmacist said it is okay to give ertapenem 500 mg IV after each dialysis for the rest of her treatment. She will probably need a prescription and to pick this up at the pharmacy and take it with her to dialysis. (5) Anemia: Code(s): D64.9 - Anemia, unspecified Status: Chronic Assessment and Plan: Patient is getting Epogen with dialysis. Neck CBC tomorrow (6) Thrombocytopenia: Code(s): D69.6 - Thrombocytopenia, unspecified Status: Acute Assessment and Plan: This has been an issue since October of this year. (7) Renal osteodystrophy: Code(s): N25.0 - Renal osteodystrophy Status: Acute Assessment and Plan: phosphorus level is normal (8) Hypertension: Qualifiers: Hypertension type: renovascular hypertension Qualified Code(s): I15.0 - Renovascular hypertension Code(s): I10 - Essential (primary) hypertension Status: Chronic Assessment and Plan: blood pressure is well controlled (9) Insulin dependent type 2 diabetes mellitus: Code(s): E11.9 - Type 2 diabetes mellitus without complications; Z79.4 - intermediate (current) use of insulin Status: Chronic Assessment and Plan: on Accu-Cheks and sliding-scale insulin per hospitalist. Subjective Date/time seen: 04/04/22 19:13 Interval history: Tawana is feeling better. She is eager for discharge. she had dialysis earlier today Exam Narrative: WDWN in NAD skin no rash or subcu nodules head ncat lungs Rare crackles at the bases cor reg no rub or gallop abd BS+ nontender and soft ext no edema or cyanosis. Objective Data Vital Signs Vital Signs: Vital Signs - 24 hr 04/03/22 22:41 04/03/22 20:00 04/03/22 23:39 Temperature 36.9 C 36.6 C Pulse Rate 62 66 64 Respiratory Rate 20 20 Blood Pressure 126/45 L 135/71 Pulse Oximetry 95 92 Oxygen Delivery 04/04/22 03:55 04/04/22 04:00 04/04/22 09:16 Temperature 36.8 C Pulse Rate 65 64 Respiratory Rate 20 Blood Pressure 163/49 H 136/59 L Pulse Oximetry 96 94 Oxygen Delivery Room Air 04/04/22 09:05 04/04/22 09:30 04/04/22 09:50 Temperature 36.6 C Pulse Rate 64 68 63 Respiratory Rate 18 Blood Pressure 146/60 H 137/62 121/57 L Pulse Oximetry Oxygen Delivery 04/04/22 10:10 04/04/22 10:30 04/04/22 10:50 Temperature Pulse Rate 67 63 64 Respiratory Rate Blood Pressure 119/47 L 109/48 L 120/55 L Pulse Oximetry Oxygen Delivery 04/04/22 11:10 04/04/22 11:30 04/04/22 11:50 Temperature Pulse Rate 65 64 67 Respiratory Rate Blood Pressure 132/58 L 115/52 L 105/51 L Pulse Oximetry Oxygen Delivery 04/04/22 12:10 04/04/22 12:30 04/04/22 12:47 Temperature Pulse Rate 69 68 70 Respiratory Rate Blood Pressure 114/55 L 105/49 L 126/52 L Pulse Oximetry Oxygen Delivery 04/04/22 12:55 04/04/22 08:00 04/04/22 14:57 Temperature 36.4 C 36.1 C L 36.3 C L Pulse Rate 68
--- NOTE | 2022-04-04 19:42 | PM.IMPN ---
Progress Note: A&P Assessment and Plan (1) AMS (altered mental status): Code(s): R41.82 - Altered mental status, unspecified Status: Acute (2) UTI (urinary tract infection): Code(s): N39.0 - Urinary tract infection, site not specified Status: Acute (3) COVID: Code(s): U07.1 - COVID-19 Status: Acute (4) End-stage renal disease on hemodialysis: Code(s): N18.6 - End stage renal disease; Z99.2 - Dependence on renal dialysis Status: Acute (5) Insulin dependent type 2 diabetes mellitus: Code(s): E11.9 - Type 2 diabetes mellitus without complications; Z79.4 - retirement (current) use of insulin Status: Chronic Plan 06/03/21 Patient was alert but confused on admission.? CT the brain showing no acute findings.? Routine lab work showing no acute findings to explain her altered mental status. Probably related to UTI. Her mental status has returned to baseline. Continue to monitor.? Resolved UA noted and UCx growing ESBL EColi. BCx NGTD. Changed to Ertapenem. Discussed with PharmD ID about abx choices with HD.? He recommended Ertapenem 500mg thrice weekly after HD. Plan to discharge tomorrow after HD and a dose of Ertapenem.? COVID positive on 03/26. CXR on 03/26 showing bibasilar atelectasis. She was admitted but did not have an O2 requirement so no treatment for COVID at that time. Patient returns with SOB and now with O2 requirement. She states she has been compliant with HD. CXR showing diffuse bilateral interstitial infiltrates; possibly PNA vs fluid overload. Trop negative x2. CXR today after HD still showing mild airspace disease. Started on Cefepime and Vanco but now changed to Ertapenem. Continue Decadron.? Nephrology following and appreciate their input. Continue HD per nephrology A1c 6.9. The patient's blood glucose was reviewed on 04/03 Glucose better controled but still widely flucuating 73-235 Continue AccuCheks covering with sliding scale.? Hypoglycemia protocol available as needed.? Continue meal time insulin. Decrease Lantus since morning glucose was 100. Continue to monitor Plt count at 112K. Plt count has been low for most of the year. B12 level okay. COVID could be contributing to her low plt count. Follow 04/04/22 pt doing ok confusion improving reports that Dr Montelongo is her body artist understands we are pending abx plan to dc her POC reviewed w Dr Maria, recs appreciated cont current care off isolation precautions for COVID tomorrow c/s CM for DC planning Subjective Date/time seen: 04/04/22 19:42 pt doing ok asking when she can go home Review of Systems Review of Systems: All systems reviewed & are unremarkable except as noted in HPI and below Exam Narrative: Gen - NAD, chronically ill appearing Chest -bilateraly mid and lower lung field inspiratory crackles, nml RR. 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 Neuro - Alert and appropriate Psych - congruent mood and affect Skin - Warm and dry Objective Data Vital Signs Vital Signs: Vital Signs - 24 hr 04/03/22 22:41 04/03/22 20:00 04/03/22 23:39 Temperature 98.5 F 98 F Pulse Rate 62 66 64 Respiratory Rate 20 20 Blood Pressure 126/45 L 135/71 Pulse Oximetry 95 92 Oxygen Delivery 04/04/22 03:55 04/04/22 04:00 04/04/22 09:16 Temperature 98.3 F Pulse Rate 65 64 Respiratory Rate 20 Blood Pressure 163/49 H 136/59 L Pulse Oximetry 96 94 Oxygen Delivery Room Air 04/04/22 09:05 04/04/22 09:30 04/04/22 09:50 Temperature 97.9 F Pulse Rate 64 68 63 Respiratory Rate 18 Blood Pressure 146/60 H 137/62 121/57 L Pulse Oximetry Oxygen Delivery 04/04/22 10:10 04/04/22 10:30 04/04/22 10:50 Temperature Pulse Rate 67 63 64 Respiratory Rate Blood Pressure 119/47 L 109/48 L 120/55 L Pulse Oximetry Oxygen Delivery 04/04/22 11:1
[2022-04-04 20:18] LABS: Glucose Point of Care 226 mg/dl (65-105)
[2022-04-04] MEDS: PRAVASTATIN SODIUM 20 MG TABLET 40 MG PO (21:09)
[2022-04-04] MEDS: carvediloL 25 MG TABLET PO (21:10)
[2022-04-04] MEDS: INSULIN GLARGINE (*BKC) 100 UNITS/ML 32 UNITS SUB-Q (21:11)
--- NOTE | 2022-04-04 21:57 | PCRCNOTE ---
Window of time for administration has passed. See next scheduled administration.
[2022-04-05] VITALS (10 sets, daily range): BP systolic 137–158; BP diastolic 47–52; PULSE 64–71; RESP 18–20; TEMP 36–36.3; O2SAT 91–98
[2022-04-05] MEDS: ALBUTEROL SULFATE (*SP) AEROSOL 1 PUFF 2 PUFF INHALATION ×4 (02:16→21:08)
[2022-04-05] MEDS: GABAPENTIN 400 MG CAPSULE PO ×3 (05:21→21:14)
[2022-04-05 07:28] LABS: Hematocrit 33.7 % (37.0-47.0); Hemoglobin 10.7 g/dL (12.0-15.0); Mean Corpuscular HGB Conc 31.8 g/dl (32-36); Mean Corpuscular Hemoglobin 31.5 pg (26-34); Mean Corpuscular Volume 99.1 fl (80-100); Mean Platelet Volume 12.2 fl (7.4-10.4); Platelet Count Result 143 k/mm3 (150-375); Red Cell Distribution Width 11.9 % (11.5-14.5); White Blood Count 6.7 K/mm3 (4.5-10.0)
[2022-04-05 07:32] LABS: Anion Gap 9 mmol/L (8-16); Blood Urea Nitrogen 29 mg/dL (7-17); Calcium 6.3 mg/dL (8.4-10.2); Carbon Dioxide 31 mmol/L (22-30); Chloride 96 mmol/L (98-107); Estimated Glomerular Filt Rate 10; Glucose 99 mg/dL (65-110); Phosphorus 3.5 mg/dL (2.5-4.5); Potassium 3.8 mmol/L (3.4-5.0); Sodium 136 mmol/L (137-145)
[2022-04-05 08:13] LABS: Glucose Point of Care 78 mg/dl (65-105)
[2022-04-05] MEDS: LOSARTAN POTASSIUM 100 MG TABLET PO (09:14)
[2022-04-05] MEDS: carvediloL 25 MG TABLET PO ×2 (09:14→21:13)
[2022-04-05] MEDS: NIFEdipine 30 MG TAB.ER.24 PO ×2 (09:14→21:14)
[2022-04-05] MEDS: ASPIRIN 81 MG CHEWABLE TABLET PO (09:14)
[2022-04-05] MEDS: SERTRALINE HCL 25 MG TABLET PO (09:14)
[2022-04-05] MEDS: LORATADINE 10 MG TABLET PO (09:14)
[2022-04-05] MEDS: APIXABAN 5 MG TABLET PO ×2 (09:14→17:17)
[2022-04-05] MEDS: hydrALAZINE HCL 50 MG TABLET PO ×3 (09:18→17:16)
[2022-04-05] MEDS: INSULIN ASPART (*BKC) 100 UNITS/ML 8 UNITS SUB-Q (09:19)
[2022-04-05 11:34] LABS: Glucose Point of Care 66 mg/dl (65-105)
--- NOTE | 2022-04-05 15:42 | PM.PNNEP ---
Progress Note: A&P Assessment and Plan (1) ESRD (end stage renal disease): Code(s): N18.6 - End stage renal disease Status: Acute Assessment and Plan: the patient has end-stage renal disease. this is due to diabetes and hypertension. Will get another tx tomorrow. (2) COVID: Code(s): U07.1 - COVID-19 Status: Acute Assessment and Plan: The patient has COVID. cough but no hypoxia. The patient is on dexamethasone She is on respiratory isolation. (3) AMS (altered mental status): Code(s): R41.82 - Altered mental status, unspecified Status: Acute Assessment and Plan: mental status is better. (4) UTI (urinary tract infection): Code(s): N39.0 - Urinary tract infection, site not specified Status: Acute Assessment and Plan: The patient has pyuria. Urine culture Shows E coli. Sensitivities show ESBL. getting ertapenem now. outpt unit won't give her the ertapenem. will stay her for 4 more days. (5) Anemia: Code(s): D64.9 - Anemia, unspecified Status: Chronic Assessment and Plan: Patient is getting Epogen with dialysis. hb 10.7 check CBC tomorrow (6) Thrombocytopenia: Code(s): D69.6 - Thrombocytopenia, unspecified Status: Acute Assessment and Plan: This has been an issue since October of this year. (7) Renal osteodystrophy: Code(s): N25.0 - Renal osteodystrophy Status: Acute Assessment and Plan: phosphorus level is normal calcium is low and so is albumin. will give tms at bedtime (8) Hypertension: Qualifiers: Hypertension type: renovascular hypertension Qualified Code(s): I15.0 - Renovascular hypertension Code(s): I10 - Essential (primary) hypertension Status: Chronic Assessment and Plan: blood pressure is well controlled (9) Insulin dependent type 2 diabetes mellitus: Code(s): E11.9 - Type 2 diabetes mellitus without complications; Z79.4 - termite helper (current) use of insulin Status: Chronic Assessment and Plan: on Accu-Cheks and sliding-scale insulin per hospitalist. Subjective Date/time seen: 04/05/22 15:42 Interval history: Tawana is feeling better. no sob. HD went well yesterday. Exam Narrative: WDWN in NAD skin no rash or subcu nodules head ncat lungs fairly clear today cor reg no rub or gallop abd BS+ nontender and soft ext no edema Objective Data Vital Signs Vital Signs: Vital Signs - 24 hr 04/04/22 16:00 04/04/22 21:10 04/04/22 20:00 Temperature 36.4 C L 35.9 C L Pulse Rate 72 70 71 Respiratory Rate 18 16 Blood Pressure 157/45 H 149/38 H Pulse Oximetry 100 97 Oxygen Delivery 04/05/22 00:00 04/04/22 20:00 04/05/22 04:00 Temperature 36.2 C L 36.3 C L Pulse Rate 66 68 Respiratory Rate 18 18 Blood Pressure 158/52 H 157/52 H Pulse Oximetry 95 95 95 Oxygen Delivery Room Air 04/05/22 08:00 04/05/22 09:14 04/05/22 09:40 Temperature 36.2 C L Pulse Rate 65 64 68 Respiratory Rate 20 Blood Pressure 143/49 H Pulse Oximetry 94 98 Oxygen Delivery Room Air 04/05/22 09:40 04/05/22 11:34 Temperature 36.0 C L Pulse Rate 68 66 Respiratory Rate 18 20 Blood Pressure 153/47 H Pulse Oximetry 95 Oxygen Delivery Intake/Output Intake/Output: Intake & Output 04/02/22 04/03/22 04/04/22 04/05/22 23:59 23:59 23:59 23:59 Intake Total 970 1620 1130 358 Output Total 2900 2000 Balance -1930 1620 -870 358 Meds/Results Medications: Active Medications Generic Name Dose Route Start Last Admin Trade Name Joshq PRN Reason Stop Dose Admin Acetaminophen 1,000 mg 04/01/22 07:42 Acetaminophen 500 Mg Tablet PO Q6H PRN Pain Albuterol 2 puff 04/01/22 02:00 04/05/22 14:34 Albuterol Sulfate (*Sp) Aerosol 1 Puff INHALATION 2 puff Q6HRT KEMI Administration Albuterol 2 puff 04/01/22 07:42
[2022-04-05 16:57] LABS: Glucose Point of Care 157 mg/dl (65-105)
[2022-04-05] MEDS: INSULIN ASPART (*BKC) 100 UNITS/ML 6 UNITS SUB-Q (17:20)
--- NOTE | 2022-04-05 17:49 | PM.IMPN ---
Progress Note: A&P Assessment and Plan (1) AMS (altered mental status): Code(s): R41.82 - Altered mental status, unspecified Status: Acute (2) UTI (urinary tract infection): Code(s): N39.0 - Urinary tract infection, site not specified Status: Acute (3) COVID: Code(s): U07.1 - COVID-19 Status: Acute (4) End-stage renal disease on hemodialysis: Code(s): N18.6 - End stage renal disease; Z99.2 - Dependence on renal dialysis Status: Acute (5) Insulin dependent type 2 diabetes mellitus: Code(s): E11.9 - Type 2 diabetes mellitus without complications; Z79.4 - alf (current) use of insulin Status: Chronic Plan 06/03/21 Patient was alert but confused on admission.? CT the brain showing no acute findings.? Routine lab work showing no acute findings to explain her altered mental status. Probably related to UTI. Her mental status has returned to baseline. Continue to monitor.? Resolved UA noted and UCx growing ESBL EColi. BCx NGTD. Changed to Ertapenem. Discussed with PharmD ID about abx choices with HD.? He recommended Ertapenem 500mg thrice weekly after HD. Plan to discharge tomorrow after HD and a dose of Ertapenem.? COVID positive on 03/26. CXR on 03/26 showing bibasilar atelectasis. She was admitted but did not have an O2 requirement so no treatment for COVID at that time. Patient returns with SOB and now with O2 requirement. She states she has been compliant with HD. CXR showing diffuse bilateral interstitial infiltrates; possibly PNA vs fluid overload. Trop negative x2. CXR today after HD still showing mild airspace disease. Started on Cefepime and Vanco but now changed to Ertapenem. Continue Decadron.? Nephrology following and appreciate their input. Continue HD per nephrology A1c 6.9. The patient's blood glucose was reviewed on 04/03 Glucose better controled but still widely flucuating 73-235 Continue AccuCheks covering with sliding scale.? Hypoglycemia protocol available as needed.? Continue meal time insulin. Decrease Lantus since morning glucose was 100. Continue to monitor Plt count at 112K. Plt count has been low for most of the year. B12 level okay. COVID could be contributing to her low plt count. Follow 04/04/22 pt doing ok confusion improving reports that Dr Montelongo is her radiologic technologist understands we are pending abx plan to dc her POC reviewed w Dr Maria, recs appreciated cont current care off isolation precautions for COVID tomorrow c/s CM for DC planning 04/05/22 difficulty urinating Bladder scan w 285 HD dependent repeat scan at 9pm cont current care anticipate dc Saturday Subjective Date/time seen: 04/05/22 17:49 pt ok understands that she needs to stay hospitalized until abx completed complains of difficulty urinating RN requested to bladder scan pt Review of Systems Review of Systems: All systems reviewed & are unremarkable except as noted in HPI and below Exam Narrative: Gen - NAD, chronically ill appearing , obese Chest -inspiratory crackles, Right upper chest tunnelled catheter CV - RRR S1/S2 Abd - Soft, NT/ND, Positive BS : palpable bladder Ext - 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 Neuro - Alert and appropriate Psych - congruent mood and affect Skin - Warm and dry Objective Data Vital Signs Vital Signs: Vital Signs - 24 hr 04/04/22 21:10 04/04/22 20:00 04/05/22 00:00 Temperature 96.6 F L 97.2 F L Pulse Rate 70 71 66 Respiratory Rate 16 18 Blood Pressure 149/38 H 158/52 H Pulse Oximetry 97 95 Oxygen Delivery 04/04/22 20:00 04/05/22 04:00 04/05/22 08:00 Temperature 97.3 F L 97.2 F L Pulse Rate 68 65 Respiratory Rate 18 20 Blood Pressure 157/52 H 143/49 H Pulse Oximetry 95 95 94 Oxygen Delivery Room Air 04/05/22 09:14 04/05/22 09:40 04/05/22 09:40 Temperature Pulse Rate 64 68 68 Respiratory Rate 18 Blood Pressure Pulse Oximetry 98 Oxygen Delivery
[2022-04-05 20:48] LABS: Glucose Point of Care 161 mg/dl (65-105)
[2022-04-05] MEDS: PRAVASTATIN SODIUM 20 MG TABLET 40 MG PO (21:14)
[2022-04-05] MEDS: INSULIN GLARGINE (*BKC) 100 UNITS/ML 32 UNITS SUB-Q (21:14)
[2022-04-05] MEDS: CALCIUM CARBONATE (TUMS) 500 MG (200 MG ELEMENTAL) PO (21:14)
--- NOTE | 2022-04-05 23:41 | PC.NURSE ---
Pt was bladder scanned with maximum volume found at 138 mL.
[2022-04-06] VITALS (23 sets, daily range): BP systolic 92–182; BP diastolic 45–64; PULSE 59–84; RESP 16–20; TEMP 36.1–37.1; O2SAT 91–99
[2022-04-06] MEDS: ALBUTEROL SULFATE (*SP) AEROSOL 1 PUFF 2 PUFF INHALATION ×3 (01:45→20:16)
[2022-04-06] MEDS: GABAPENTIN 400 MG CAPSULE PO ×3 (05:53→21:56)
[2022-04-06 06:47] LABS: Albumin Level 2.9 g/dL (3.5-5.1); Anion Gap 8 mmol/L (8-16); Blood Urea Nitrogen 45 mg/dL (7-17); Calcium 6.3 mg/dL (8.4-10.2); Carbon Dioxide 31 mmol/L (22-30); Chloride 95 mmol/L (98-107); Estimated Glomerular Filt Rate 8; Glucose 103 mg/dL (65-110); Phosphorus 4.4 mg/dL (2.5-4.5); Potassium 3.7 mmol/L (3.4-5.0); Sodium 134 mmol/L (137-145)
[2022-04-06 08:24] LABS: Glucose Point of Care 88 mg/dl (65-105)
[2022-04-06] MEDS: INSULIN ASPART (*BKC) 100 UNITS/ML 6 UNITS SUB-Q ×3 (08:33→17:19)
[2022-04-06] MEDS: SODIUM CHLORIDE 0.9% IV 1,000 ML 999 ML IV CONT (09:40)
[2022-04-06] MEDS: EPOETIN ALFA-EPBX 10,000 UNITS/ML VIAL 10000 UNITS IV PUSH (12:08)
[2022-04-06 12:46] LABS: Glucose Point of Care 76 mg/dl (65-105)
[2022-04-06] MEDS: ASPIRIN 81 MG CHEWABLE TABLET PO (12:57)
[2022-04-06] MEDS: carvediloL 25 MG TABLET PO ×2 (12:58→21:53)
[2022-04-06] MEDS: LORATADINE 10 MG TABLET PO (13:02)
[2022-04-06] MEDS: SERTRALINE HCL 25 MG TABLET PO (13:02)
[2022-04-06] MEDS: hydrALAZINE HCL 50 MG TABLET PO ×2 (13:03→17:24)
--- NOTE | 2022-04-06 13:03 | PC.NURSE ---
per dialysis nurse-hold all AM meds unless blood pressure is elevated and then ok to administer AM blood pressure medications if elevated BP. ALL AM meds held except Novolog as pt. was going to eat breakfast during dialysis.
--- NOTE | 2022-04-06 16:38 | PM.PNNEP ---
Progress Note: A&P Assessment and Plan (1) ESRD (end stage renal disease): Code(s): N18.6 - End stage renal disease Status: Acute Assessment and Plan: the patient has end-stage renal disease. this is due to diabetes and hypertension. She had dialysis earlier today. (2) COVID: Code(s): U07.1 - COVID-19 Status: Acute Assessment and Plan: The patient has COVID. She timed out and so is off isolation. The patient is on dexamethasone (3) AMS (altered mental status): Code(s): R41.82 - Altered mental status, unspecified Status: Acute Assessment and Plan: mental status is better. (4) UTI (urinary tract infection): Code(s): N39.0 - Urinary tract infection, site not specified Status: Acute Assessment and Plan: The patient has pyuria. Urine culture Shows E coli. Sensitivities show ESBL. getting ertapenem now. outpt unit won't give her the ertapenem. will stay her for a few more days (5) Anemia: Code(s): D64.9 - Anemia, unspecified Status: Chronic Assessment and Plan: Patient is getting Epogen with dialysis. hb 10.7 check CBC tomorrow (6) Thrombocytopenia: Code(s): D69.6 - Thrombocytopenia, unspecified Status: Acute Assessment and Plan: This has been an issue since October of this year. (7) Renal osteodystrophy: Code(s): N25.0 - Renal osteodystrophy Status: Acute Assessment and Plan: phosphorus level is normal calcium is low and so is albumin. will give tms at bedtime (8) Hypertension: Qualifiers: Hypertension type: renovascular hypertension Qualified Code(s): I15.0 - Renovascular hypertension Code(s): I10 - Essential (primary) hypertension Status: Chronic Assessment and Plan: blood pressure is well controlled (9) Insulin dependent type 2 diabetes mellitus: Code(s): E11.9 - Type 2 diabetes mellitus without complications; Z79.4 - [facility] (current) use of insulin Status: Chronic Assessment and Plan: on Accu-Cheks and sliding-scale insulin per hospitalist. Subjective Date/time seen: 04/06/22 16:38 Interval history: Tawana is feeling better. daughter in the room. Patient feels good. Eager for discharge. Exam Narrative: WDWN in NAD skin no rash or subcu nodules head ncat lungs fairly clear today cor reg no rub or gallop abd BS+ nontender and soft ext no edema Objective Data Vital Signs Vital Signs: Vital Signs - 24 hr 04/05/22 21:08 04/05/22 20:00 04/05/22 20:00 Temperature 36.1 C L Pulse Rate 64 64 Respiratory Rate 18 18 Blood Pressure 142/48 H Pulse Oximetry 91 94 91 Oxygen Delivery Room Air Room Air 04/05/22 23:08 04/06/22 00:00 04/06/22 04:00 Temperature 36.8 C 36.3 C L Pulse Rate 64 65 70 Respiratory Rate 18 18 18 Blood Pressure 143/50 H 152/59 H Pulse Oximetry 91 99 96 Oxygen Delivery Room Air 04/06/22 08:33 04/06/22 08:57 04/06/22 08:49 Temperature 36.1 C L 36.6 C Pulse Rate 65 59 L 60 Respiratory Rate 18 18 Blood Pressure 144/46 H 121/52 L 141/52 H Pulse Oximetry 94 Oxygen Delivery 04/06/22 09:00 04/06/22 09:30 04/06/22 10:00 Temperature Pulse Rate 66 61 64 Respiratory Rate Blood Pressure 140/63 112/52 L 94/45 L Pulse Oximetry Oxygen Delivery 04/06/22 10:30 04/06/22 11:00 04/06/22 12:58 Temperature Pulse Rate 63 65 84 Respiratory Rate Blood Pressure 119/52 L 134/64 Pulse Oximetry Oxygen Delivery 04/06/22 13:43 04/06/22 13:49 04/06/22 11:30 Temperature 36.9 C Pulse Rate 68 66 Respiratory Rate 16 Blood Pressure 132/45 L 121/55 L Pulse Oximetry 96 Oxygen Delivery Room Air 04/06/22 12:00 04/06/22 12:19 04/06/22 12:25 Temperature 36.8 C Pulse Rate 69 73 69 Respiratory Rate 18 Blood Pressure 92/45 L 95/45 L 135/59 L Pulse Oximetry Oxyg
[2022-04-06 17:03] LABS: Glucose Point of Care 117 mg/dl (65-105)
[2022-04-06] MEDS: APIXABAN 5 MG TABLET PO (17:26)
--- NOTE | 2022-04-06 17:34 | PM.IMPN ---
Progress Note: A&P Assessment and Plan (1) AMS (altered mental status): Code(s): R41.82 - Altered mental status, unspecified Status: Acute (2) UTI (urinary tract infection): Code(s): N39.0 - Urinary tract infection, site not specified Status: Acute (3) COVID: Code(s): U07.1 - COVID-19 Status: Acute (4) End-stage renal disease on hemodialysis: Code(s): N18.6 - End stage renal disease; Z99.2 - Dependence on renal dialysis Status: Acute (5) Insulin dependent type 2 diabetes mellitus: Code(s): E11.9 - Type 2 diabetes mellitus without complications; Z79.4 - residential (current) use of insulin Status: Chronic Plan 06/03/21 Patient was alert but confused on admission.? CT the brain showing no acute findings.? Routine lab work showing no acute findings to explain her altered mental status. Probably related to UTI. Her mental status has returned to baseline. Continue to monitor.? Resolved UA noted and UCx growing ESBL EColi. BCx NGTD. Changed to Ertapenem. Discussed with PharmD ID about abx choices with HD.? He recommended Ertapenem 500mg thrice weekly after HD. Plan to discharge tomorrow after HD and a dose of Ertapenem.? COVID positive on 03/26. CXR on 03/26 showing bibasilar atelectasis. She was admitted but did not have an O2 requirement so no treatment for COVID at that time. Patient returns with SOB and now with O2 requirement. She states she has been compliant with HD. CXR showing diffuse bilateral interstitial infiltrates; possibly PNA vs fluid overload. Trop negative x2. CXR today after HD still showing mild airspace disease. Started on Cefepime and Vanco but now changed to Ertapenem. Continue Decadron.? Nephrology following and appreciate their input. Continue HD per nephrology A1c 6.9. The patient's blood glucose was reviewed on 04/03 Glucose better controled but still widely flucuating 73-235 Continue AccuCheks covering with sliding scale.? Hypoglycemia protocol available as needed.? Continue meal time insulin. Decrease Lantus since morning glucose was 100. Continue to monitor Plt count at 112K. Plt count has been low for most of the year. B12 level okay. COVID could be contributing to her low plt count. Follow 04/04/22 pt doing ok confusion improving reports that Dr Montelongo is her golf range attendant understands we are pending abx plan to dc her POC reviewed w Dr Maria, recs appreciated cont current care off isolation precautions for COVID tomorrow c/s CM for DC planning 04/05/22 difficulty urinating Bladder scan w 285 HD dependent repeat scan at 9pm cont current care anticipate dc Saturday04/06/2022 Patient feeling better no further signs or symptoms of urinary distention vital signs within normal limits continue ertapenem through Saturday off COVID isolation continue current care Dispo discharge home to care of sister on Saturday after completion of antibiotic therapy with ongoing outpatient hemodialysis Subjective Date/time seen: 04/06/22 12:34 patient seen during dialysis doing well without any complaints Exam Narrative: Gen - NAD, chronically ill appearing , obese Chest -inspiratory crackles, Right upper chest tunnelled catheter CV - RRR S1/S2 Abd - Soft, NT/ND, Positive BS : palpable bladder Ext - 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 Neuro - Alert and appropriate Psych - congruent mood and affect Skin - Warm and dry Objective Data Vital Signs Vital Signs: Vital Signs - 24 hr 04/05/22 21:08 04/05/22 20:00 04/05/22 20:00 Temperature 96.9 F L Pulse Rate 64 64 Respiratory Rate 18 18 Blood Pressure 142/48 H Pulse Oximetry 91 94 91 Oxygen Delivery Room Air Room Air 04/05/22 23:08 04/06/22 00:00 04/06/22 04:00 Temperature 98.3 F 97.4 F L Pulse Rate 64 65 70 Respiratory Rate 18 18 18 Blood Pressure 143/50 H 152/59 H Pulse Oximetry 91 99 96 Oxygen Delivery Room Air 04/06/22 08:33
[2022-04-06] MEDS: ERTAPENEM SODIUM 0.5 GM in SODIUM CHLORIDE 0.9% IV 50 ML IVPB (17:51)
[2022-04-06] MEDS: INSULIN GLARGINE (*BKC) 100 UNITS/ML 32 UNITS SUB-Q (21:50)
[2022-04-06] MEDS: NIFEdipine 30 MG TAB.ER.24 PO (21:55)
[2022-04-06] MEDS: PRAVASTATIN SODIUM 20 MG TABLET 40 MG PO (21:56)
[2022-04-06 22:01] LABS: Glucose Point of Care 192 mg/dl (65-105)
[2022-04-06] MEDS: CALCIUM CARBONATE (TUMS) 500 MG (200 MG ELEMENTAL) PO (22:04)
[2022-04-07] VITALS (13 sets, daily range): BP systolic 114–270; BP diastolic 55–100; PULSE 56–74; RESP 14–18; TEMP 36–36.8; O2SAT 92–100
[2022-04-07] MEDS: LOSARTAN POTASSIUM 100 MG TABLET PO ×2 (01:50→09:04)
[2022-04-07] MEDS: ALBUTEROL SULFATE (*SP) AEROSOL 1 PUFF 2 PUFF INHALATION ×4 (02:01→21:17)
[2022-04-07] MEDS: hydrALAZINE HCL 20 MG/ML VIAL 10 MG IV PUSH (04:12)
[2022-04-07] MEDS: GABAPENTIN 400 MG CAPSULE PO ×3 (05:39→20:57)
[2022-04-07 08:08] LABS: Glucose Point of Care 109 mg/dl (65-105)
[2022-04-07] MEDS: INSULIN ASPART (*BKC) 100 UNITS/ML 6 UNITS SUB-Q ×3 (09:02→17:35)
[2022-04-07] MEDS: LORATADINE 10 MG TABLET PO (09:04)
[2022-04-07] MEDS: hydrALAZINE HCL 50 MG TABLET PO ×3 (09:04→18:19)
[2022-04-07] MEDS: ASPIRIN 81 MG CHEWABLE TABLET PO (09:04)
[2022-04-07] MEDS: APIXABAN 5 MG TABLET PO ×2 (09:04→18:19)
[2022-04-07] MEDS: SERTRALINE HCL 25 MG TABLET PO (09:04)
[2022-04-07] MEDS: NIFEdipine 30 MG TAB.ER.24 PO ×2 (09:05→20:57)
--- NOTE | 2022-04-07 09:23 | PC.NURSE ---
call to pharm for missing coreg dose
[2022-04-07 12:13] LABS: Glucose Point of Care 121 mg/dl (65-105)
[2022-04-07] MEDS: carvediloL 25 MG TABLET PO ×2 (13:00→20:57)
--- NOTE | 2022-04-07 15:22 | PM.PNNEP ---
Progress Note: A&P Assessment and Plan (1) ESRD (end stage renal disease): Code(s): N18.6 - End stage renal disease Status: Acute Assessment and Plan: the patient has end-stage renal disease. this is due to diabetes and hypertension. due for HD on saturday (2) COVID: Code(s): U07.1 - COVID-19 Status: Acute Assessment and Plan: The patient has COVID. She timed out and so is off isolation. The patient is off dexamethasone (3) AMS (altered mental status): Code(s): R41.82 - Altered mental status, unspecified Status: Acute Assessment and Plan: resolved. (4) UTI (urinary tract infection): Code(s): N39.0 - Urinary tract infection, site not specified Status: Acute Assessment and Plan: The patient has pyuria. Urine culture Shows resistant E coli. getting ertapenem now. (5) Anemia: Code(s): D64.9 - Anemia, unspecified Status: Chronic Assessment and Plan: Patient is getting Epogen with dialysis. hb 10.7 check CBC tomorrow (6) Thrombocytopenia: Code(s): D69.6 - Thrombocytopenia, unspecified Status: Acute Assessment and Plan: This has been an issue since October of this year. (7) Renal osteodystrophy: Code(s): N25.0 - Renal osteodystrophy Status: Acute Assessment and Plan: phosphorus level is normal calcium is low and so is albumin. on tums at hs (8) Hypertension: Qualifiers: Hypertension type: renovascular hypertension Qualified Code(s): I15.0 - Renovascular hypertension Code(s): I10 - Essential (primary) hypertension Status: Chronic Assessment and Plan: blood pressure is well controlled (9) Insulin dependent type 2 diabetes mellitus: Code(s): E11.9 - Type 2 diabetes mellitus without complications; Z79.4 - [facility] (current) use of insulin Status: Chronic Assessment and Plan: on Accu-Cheks and sliding-scale insulin per hospitalist. Subjective Date/time seen: 04/07/22 15:22 Interval history: Tawana is feeling better. eating some lunch Patient feels good. Eager for discharge. Hoping for saturday Exam Narrative: WDWN in NAD skin no rash or subcu nodules head ncat lungs clear cor reg no rub or gallop abd BS+ nontender and soft ext no edema or cyanosis Objective Data Vital Signs Vital Signs: Vital Signs - 24 hr 04/06/22 18:19 04/06/22 20:00 04/06/22 21:53 Temperature 36.1 C L 37.1 C Pulse Rate 76 72 70 Respiratory Rate 18 16 Blood Pressure 168/50 H 182/62 H Pulse Oximetry 91 95 Oxygen Delivery 04/06/22 20:35 04/07/22 00:00 04/07/22 01:35 Temperature 36.7 C Pulse Rate 70 68 Respiratory Rate 16 14 Blood Pressure 207/65 H 240/98 H Pulse Oximetry 95 98 Oxygen Delivery Room Air 04/06/22 20:16 04/06/22 20:35 04/06/22 20:35 Temperature Pulse Rate 72 70 70 Respiratory Rate 18 20 20 Blood Pressure Pulse Oximetry 95 Oxygen Delivery Room Air 04/07/22 02:01 04/07/22 02:19 04/07/22 03:38 Temperature Pulse Rate 74 70 Respiratory Rate 18 18 Blood Pressure 270/100 H Pulse Oximetry Oxygen Delivery 04/07/22 03:41 04/07/22 05:09 04/07/22 08:00 Temperature 36.7 C 36.2 C L Pulse Rate 65 69 Respiratory Rate 16 16 Blood Pressure 190/68 H 145/55 H Pulse Oximetry 95 94 Oxygen Delivery 04/07/22 12:00 04/07/22 13:00 04/07/22 08:30 Temperature 36.8 C Pulse Rate 66 66 Respiratory Rate 18 Blood Pressure 156/55 H Pulse Oximetry 100 Oxygen Delivery Room Air 04/07/22 13:53 Temperature Pulse Rate Respiratory Rate Blood Pressure Pulse Oximetry 96 Oxygen Delivery Room Air Intake/Output Intake/Output: Intake & Output 04/04/22 04/05/22 04/06/22 04/07/22 23:59 23:59 23:59 23:59 Intake Total 1130 1271 997 220 Output Total 1999 1999 [facility] -[phone] 220
[2022-04-07 16:43] LABS: Glucose Point of Care 217 mg/dl (65-105)
--- NOTE | 2022-04-07 17:20 | PM.IMPN ---
Progress Note: A&P Assessment and Plan (1) AMS (altered mental status): Code(s): R41.82 - Altered mental status, unspecified Status: Acute (2) UTI (urinary tract infection): Code(s): N39.0 - Urinary tract infection, site not specified Status: Acute (3) COVID: Code(s): U07.1 - COVID-19 Status: Acute (4) End-stage renal disease on hemodialysis: Code(s): N18.6 - End stage renal disease; Z99.2 - Dependence on renal dialysis Status: Acute (5) Insulin dependent type 2 diabetes mellitus: Code(s): E11.9 - Type 2 diabetes mellitus without complications; Z79.4 - nursing home (current) use of insulin Status: Chronic (6) Constipation: Code(s): K59.00 - Constipation, unspecified Status: Acute (7) S/P AKA (above knee amputation) unilateral: Code(s): Z89.619 - Acquired absence of unspecified leg above knee Status: Acute Plan 06/03/21 Patient was alert but confused on admission.? CT the brain showing no acute findings.? Routine lab work showing no acute findings to explain her altered mental status. Probably related to UTI. Her mental status has returned to baseline. Continue to monitor.? Resolved UA noted and UCx growing ESBL EColi. BCx NGTD. Changed to Ertapenem. Discussed with PharmD ID about abx choices with HD.? He recommended Ertapenem 500mg thrice weekly after HD. Plan to discharge tomorrow after HD and a dose of Ertapenem.? COVID positive on 03/26. CXR on 03/26 showing bibasilar atelectasis. She was admitted but did not have an O2 requirement so no treatment for COVID at that time. Patient returns with SOB and now with O2 requirement. She states she has been compliant with HD. CXR showing diffuse bilateral interstitial infiltrates; possibly PNA vs fluid overload. Trop negative x2. CXR today after HD still showing mild airspace disease. Started on Cefepime and Vanco but now changed to Ertapenem. Continue Decadron.? Nephrology following and appreciate their input. Continue HD per nephrology A1c 6.9. The patient's blood glucose was reviewed on 04/03 Glucose better controled but still widely flucuating 73-235 Continue AccuCheks covering with sliding scale.? Hypoglycemia protocol available as needed.? Continue meal time insulin. Decrease Lantus since morning glucose was 100. Continue to monitor Plt count at 112K. Plt count has been low for most of the year. B12 level okay. COVID could be contributing to her low plt count. Follow 04/04/22 pt doing ok confusion improving reports that Dr Montelongo is her mfg assoc understands we are pending abx plan to dc her POC reviewed w Dr Maria, recs appreciated cont current care off isolation precautions for COVID tomorrow c/s CM for DC planning 04/05/22 difficulty urinating Bladder scan w 285 HD dependent repeat scan at 9pm cont current care anticipate dc Saturday04/06/2022 Patient feeling better no further signs or symptoms of urinary distention vital signs within normal limits continue ertapenem through Saturday off COVID isolation continue current care Dispo discharge home to care of sister on Saturday after completion of antibiotic therapy with ongoing outpatient hemodialysis 04/07/22 cont Ertapenem last dose Saturday lactulose q 6hr until stooling supportive care HD per nephro dispo home w sister Sat Subjective Date/time seen: 04/07/22 12:20 pt doing ok complains of constipation otherwise well voided this am feels relief from pressure Review of Systems Review of Systems: All systems reviewed & are unremarkable except as noted in HPI and below Exam Narrative: Gen - NAD, chronically ill appearing , obese Chest -symmetric chest rise, Right upper chest tunnelled catheter Abd - Soft, NT/ND, Positive BS Ext - 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 Neuro - Alert and appropriate Psych - congruent mood and affect Skin - Warm and dry Objective Data Vital Signs
[2022-04-07] MEDS: INSULIN ASPART (*BKC) 100 UNITS/ML SUB-Q (17:34)
[2022-04-07] MEDS: LACTULOSE 20 GM/30 ML UDC PO (18:19)
[2022-04-07] MEDS: ERTAPENEM SODIUM 0.5 GM in SODIUM CHLORIDE 0.9% IV 50 ML IVPB (18:20)
[2022-04-07] MEDS: CALCIUM CARBONATE (TUMS) 500 MG (200 MG ELEMENTAL) PO (20:57)
[2022-04-07] MEDS: PRAVASTATIN SODIUM 20 MG TABLET 40 MG PO (20:57)
[2022-04-07] MEDS: INSULIN GLARGINE (*BKC) 100 UNITS/ML 32 UNITS SUB-Q (21:01)
[2022-04-08] VITALS (11 sets, daily range): BP systolic 140–167; BP diastolic 50–70; PULSE 61–96; RESP 14–20; TEMP 35.9–36.9; O2SAT 93–96
[2022-04-08 00:06] LABS: Glucose Point of Care 148 mg/dl (65-105)
--- NOTE | 2022-04-08 01:26 | PC.NURSE ---
Daylight Savings Time For Daylight Savings Time Ending in the Fall - Clocks are moved back. For Daylight Savings Time Beginning in the Spring - Clocks are moved ahead. For [facility], the time of change occurs at 0200 hrs. Time is taken from the in home baby sitter. This entry on the patient's chart recognizes the change in time reflected during documentation. Example: 2 entries for vital signs may be charted for 0200 hrs.
[2022-04-08] MEDS: ALBUTEROL SULFATE (*SP) AEROSOL 1 PUFF 2 PUFF INHALATION ×3 (02:52→20:59)
[2022-04-08] MEDS: GABAPENTIN 400 MG CAPSULE PO ×3 (06:00→21:52)
[2022-04-08 07:58] LABS: Hematocrit 34.8 % (37.0-47.0); Hemoglobin 10.9 g/dL (12.0-15.0); Mean Corpuscular HGB Conc 31.3 g/dl (32-36); Mean Corpuscular Volume 98.9 fl (80-100); Mean Platelet Volume 11.8 fl (7.4-10.4); Platelet Count Result 175 k/mm3 (150-375); Red Blood Count 3.52 M/mm3 (4.2-5.4); Red Cell Distribution Width 12.6 % (11.5-14.5); White Blood Count 8.9 K/mm3 (4.5-10.0)
[2022-04-08] MEDS: GLUCOSE ORAL GEL 15 GM OF GLUCSE IN 37.5 GM TUBE PO ×2 (08:04→08:29)
[2022-04-08 08:11] LABS: Glucose Point of Care 44 mg/dl (65-105)
[2022-04-08 08:20] LABS: Albumin Level 2.9 g/dL (3.5-5.1); Anion Gap 12 mmol/L (8-16); Blood Urea Nitrogen 54 mg/dL (7-17); Calcium 7.1 mg/dL (8.4-10.2); Carbon Dioxide 31 mmol/L (22-30); Chloride 96 mmol/L (98-107); Estimated Glomerular Filt Rate 7; Glucose 40 mg/dL (65-110); Phosphorus 4.4 mg/dL (2.5-4.5); Potassium 3.9 mmol/L (3.4-5.0); Sodium 139 mmol/L (137-145)
[2022-04-08 08:31] LABS: Glucose Point of Care 47 mg/dl (65-105)
[2022-04-08] MEDS: hydrALAZINE HCL 50 MG TABLET PO ×3 (08:32→17:35)
[2022-04-08] MEDS: ASPIRIN 81 MG CHEWABLE TABLET PO (08:32)
[2022-04-08] MEDS: APIXABAN 5 MG TABLET PO ×2 (08:33→17:35)
[2022-04-08] MEDS: carvediloL 25 MG TABLET PO ×2 (08:33→21:52)
[2022-04-08] MEDS: SERTRALINE HCL 25 MG TABLET PO (08:34)
[2022-04-08] MEDS: LORATADINE 10 MG TABLET PO (08:34)
[2022-04-08] MEDS: NIFEdipine 30 MG TAB.ER.24 PO ×2 (08:35→21:52)
[2022-04-08] MEDS: LOSARTAN POTASSIUM 100 MG TABLET PO (08:35)
[2022-04-08 08:53] LABS: Glucose Point of Care 64 mg/dl (65-105)
[2022-04-08] MEDS: DEXTROSE 50% 25 GM/50 ML SYRINGE IV PUSH (09:13)
[2022-04-08 10:31] LABS: Glucose Point of Care 183 mg/dl (65-105)
--- NOTE | 2022-04-08 11:01 | PM.PNNEP ---
Progress Note: A&P Assessment and Plan (1) ESRD (end stage renal disease): Code(s): N18.6 - End stage renal disease Status: Acute Assessment and Plan: the patient has end-stage renal disease. this is due to diabetes and hypertension. will get dialysis tomorrow.y (2) COVID: Code(s): U07.1 - COVID-19 Status: Acute Assessment and Plan: The patient has COVID. She timed out and so is off isolation. The patient is off dexamethasone (3) AMS (altered mental status): Code(s): R41.82 - Altered mental status, unspecified Status: Acute Assessment and Plan: resolved. (4) UTI (urinary tract infection): Code(s): N39.0 - Urinary tract infection, site not specified Status: Acute Assessment and Plan: The patient has pyuria. Urine culture Shows resistant E coli. getting ertapenem now. Last dose coming up. (5) Anemia: Code(s): D64.9 - Anemia, unspecified Status: Chronic Assessment and Plan: Patient is getting Epogen with dialysis. hb 10.7 check CBC tomorrow (6) Thrombocytopenia: Code(s): D69.6 - Thrombocytopenia, unspecified Status: Acute Assessment and Plan: This has been an issue since October of this year. (7) Renal osteodystrophy: Code(s): N25.0 - Renal osteodystrophy Status: Acute Assessment and Plan: phosphorus level is normal calcium is low and so is albumin. on tums at hs (8) Hypertension: Qualifiers: Hypertension type: renovascular hypertension Qualified Code(s): I15.0 - Renovascular hypertension Code(s): I10 - Essential (primary) hypertension Status: Chronic Assessment and Plan: blood pressure is well controlled (9) Insulin dependent type 2 diabetes mellitus: Code(s): E11.9 - Type 2 diabetes mellitus without complications; Z79.4 - [facility] (current) use of insulin Status: Chronic Assessment and Plan: on Accu-Cheks and sliding-scale insulin per hospitalist. Subjective Date/time seen: 04/08/22 11:01 Interval history: Tawana is feeling better. eating some lunch Patient feels good. Hemodialysis due tomorrow Exam Narrative: WDWN in NAD skin no rash or subcu nodules head ncat lungs clear bilaterally cor reg no rub or gallop abd BS+ nontender and soft ext no edema or cyanosis Objective Data Vital Signs Vital Signs: Vital Signs - 24 hr 04/07/22 13:00 04/07/22 13:53 04/07/22 16:00 Temperature 36.3 C L Pulse Rate 66 70 Respiratory Rate 14 Blood Pressure 140/65 Pulse Oximetry 96 92 Oxygen Delivery Room Air 04/07/22 20:00 04/08/22 00:00 04/08/22 03:32 Temperature 36.0 C L 36.1 C L 35.9 C L Pulse Rate 56 L 63 64 Respiratory Rate 18 20 17 Blood Pressure 114/72 140/50 L 150/55 H Pulse Oximetry 97 96 96 Oxygen Delivery 04/08/22 08:33 04/08/22 08:00 Temperature 36.9 C Pulse Rate 64 64 Respiratory Rate 16 Blood Pressure 165/70 H Pulse Oximetry 93 Oxygen Delivery Intake/Output Intake/Output: Intake & Output 04/05/22 04/06/22 04/07/22 04/08/22 23:59 23:59 23:59 22:59 Intake Total 1673 421 0876 240 Output Total 1999 Balance 1274 -1230 1160 240 Meds/Results Medications: Active Medications Generic Name Dose Route Start Last Admin Trade Name Freq PRN Reason Stop Dose Admin Acetaminophen 1,000 mg 04/01/22 07:42 Acetaminophen 500 Mg Tablet PO Q6H PRN Pain Albuterol 2 puff 04/01/22 02:00 04/08/22 10:03 Albuterol Sulfate (*Sp) Aerosol 1 Puff INHALATION 2 puff Q6HRT KEMI Administration Albuterol 2 puff 04/01/22 07:42 04/01/22 17:50 Albuterol Sulfate (*Sp) Aerosol 1 Puff INHALATION 2 puff QID PRN Administration shortness of breath or wheezing Apixaban 5 mg 04/01/22 09:00 04/08/22 08:33 Apixaban 5 Mg Tablet PO 5 mg BID KEMI Administration Aspirin
[2022-04-08 11:29] LABS: Glucose Point of Care 183 mg/dl (65-105)
--- NOTE | 2022-04-08 11:38 | PM.IMPN ---
Progress Note: A&P Assessment and Plan (1) AMS (altered mental status): Code(s): R41.82 - Altered mental status, unspecified Status: Acute (2) UTI (urinary tract infection): Code(s): N39.0 - Urinary tract infection, site not specified Status: Acute (3) COVID: Code(s): U07.1 - COVID-19 Status: Acute (4) End-stage renal disease on hemodialysis: Code(s): N18.6 - End stage renal disease; Z99.2 - Dependence on renal dialysis Status: Acute (5) Insulin dependent type 2 diabetes mellitus: Code(s): E11.9 - Type 2 diabetes mellitus without complications; Z79.4 - [facility] (current) use of insulin Status: Chronic (6) Constipation: Code(s): K59.00 - Constipation, unspecified Status: Acute (7) S/P AKA (above knee amputation) unilateral: Code(s): Z89.619 - Acquired absence of unspecified leg above knee Status: Acute Plan 06/03/21 Patient was alert but confused on admission.? CT the brain showing no acute findings.? Routine lab work showing no acute findings to explain her altered mental status. Probably related to UTI. Her mental status has returned to baseline. Continue to monitor.? Resolved UA noted and UCx growing ESBL EColi. BCx NGTD. Changed to Ertapenem. Discussed with PharmD ID about abx choices with HD.? He recommended Ertapenem 500mg thrice weekly after HD. Plan to discharge tomorrow after HD and a dose of Ertapenem.? COVID positive on 03/26. CXR on 03/26 showing bibasilar atelectasis. She was admitted but did not have an O2 requirement so no treatment for COVID at that time. Patient returns with SOB and now with O2 requirement. She states she has been compliant with HD. CXR showing diffuse bilateral interstitial infiltrates; possibly PNA vs fluid overload. Trop negative x2. CXR today after HD still showing mild airspace disease. Started on Cefepime and Vanco but now changed to Ertapenem. Continue Decadron.? Nephrology following and appreciate their input. Continue HD per nephrology A1c 6.9. The patient's blood glucose was reviewed on 04/03 Glucose better controled but still widely flucuating 73-235 Continue AccuCheks covering with sliding scale.? Hypoglycemia protocol available as needed.? Continue meal time insulin. Decrease Lantus since morning glucose was 100. Continue to monitor Plt count at 112K. Plt count has been low for most of the year. B12 level okay. COVID could be contributing to her low plt count. Follow 04/04/22 pt doing ok confusion improving reports that Dr Montelongo is her cpc coder understands we are pending abx plan to dc her POC reviewed w Dr Maria, recs appreciated cont current care off isolation precautions for COVID tomorrow c/s CM for DC planning 04/05/22 difficulty urinating Bladder scan w 285 HD dependent repeat scan at 9pm cont current care anticipate dc Saturday04/06/2022 Patient feeling better no further signs or symptoms of urinary distention vital signs within normal limits continue ertapenem through Saturday off COVID isolation continue current care Dispo discharge home to care of sister on Saturday after completion of antibiotic therapy with ongoing outpatient hemodialysis 04/07/22 cont Ertapenem last dose Saturday lactulose q 6hr until stooling supportive care HD per nephro dispo home w sister Sat04/08/22 BG 40s this am -> lantus 32U -> 25 U 1/2 Amp D50 dexamethasone discontinued pt does not have sign or sxs of COVID will adjust insulin tomorrow off steroid to ensure dc meds appropriate pt will have HD on Saturday and then receive last dose of Ertapenem she should be able to return to home with her sister after HD and Abx administered plan is home w [facility] Subjective Date/time seen: 04/08/22 11:38 Spoke with RN this morning; patient noted to have hypoglycemia down in the 40s this morning hypoglycemia protocol was followed but patient did not improve as anticipated. Half amp of D50 was ordered and
[2022-04-08 16:54] LABS: Glucose Point of Care 352 mg/dl (65-105)
--- NOTE | 2022-04-08 17:16 | PC.NURSE ---
Pt started off the day with a blood sugar of 44. Pt was treated with 15 glutose. Pt came up to 47 and was treated with 15 glutose again. Pt came up to 64. Pt was treated with 1/2amp D50 per Dr. Bowers. Pt then went up to 183. Insulin was held at lunch time due to dropping early in the day. Pt then came up to above 300. Pt will be treated with standing dose and sliding scale per Dr. Bowers. Pt has been able to participate and contribute to plan of care. Pt has no complaints of pain and verbalizes no needs. Will continue to monitor pt.
[2022-04-08] MEDS: INSULIN ASPART (*BKC) 100 UNITS/ML 6 UNITS SUB-Q (17:33)
[2022-04-08] MEDS: INSULIN ASPART (*BKC) 100 UNITS/ML SUB-Q (17:33)
[2022-04-08] MEDS: ERTAPENEM SODIUM 0.5 GM in SODIUM CHLORIDE 0.9% IV 50 ML IVPB (17:34)
[2022-04-08 20:36] LABS: Glucose Point of Care 274 mg/dl (65-105)
[2022-04-08] MEDS: CALCIUM CARBONATE (TUMS) 500 MG (200 MG ELEMENTAL) PO (21:51)
[2022-04-08] MEDS: PRAVASTATIN SODIUM 20 MG TABLET 40 MG PO (21:52)
[2022-04-09] VITALS (17 sets, daily range): BP systolic 86–155; BP diastolic 45–71; PULSE 64–80; RESP 14–22; TEMP 36.7–37; O2SAT 95–97
[2022-04-09] MEDS: ALBUTEROL SULFATE (*SP) AEROSOL 1 PUFF 2 PUFF INHALATION ×3 (02:50→13:49)
[2022-04-09] MEDS: GABAPENTIN 400 MG CAPSULE PO (05:37)
[2022-04-09 06:25] LABS: Hemoglobin 10.6 g/dL (12.0-15.0); Mean Corpuscular HGB Conc 31.2 g/dl (32-36); Mean Corpuscular Volume 99.4 fl (80-100); Mean Platelet Volume 11.7 fl (7.4-10.4); Platelet Count Result 156 k/mm3 (150-375); Red Blood Count 3.42 M/mm3 (4.2-5.4); Red Cell Distribution Width 13.1 % (11.5-14.5); White Blood Count 8.5 K/mm3 (4.5-10.0)
[2022-04-09 06:41] LABS: Albumin Level 2.9 g/dL (3.5-5.1); Anion Gap 14 mmol/L (8-16); Blood Urea Nitrogen 66 mg/dL (7-17); Calcium 6.6 mg/dL (8.4-10.2); Carbon Dioxide 28 mmol/L (22-30); Chloride 94 mmol/L (98-107); Estimated Glomerular Filt Rate 7; Glucose 134 mg/dL (65-110); Phosphorus 5.2 mg/dL (2.5-4.5); Potassium 4.2 mmol/L (3.4-5.0); Sodium 136 mmol/L (137-145)
[2022-04-09 08:39] LABS: Glucose Point of Care 115 mg/dl (65-105)
[2022-04-09] MEDS: ASPIRIN 81 MG CHEWABLE TABLET PO (09:22)
[2022-04-09] MEDS: APIXABAN 5 MG TABLET PO (09:22)
[2022-04-09] MEDS: SERTRALINE HCL 25 MG TABLET PO (09:22)
[2022-04-09] MEDS: NIFEdipine 30 MG TAB.ER.24 PO (09:22)
[2022-04-09] MEDS: LORATADINE 10 MG TABLET PO (09:22)
[2022-04-09] MEDS: hydrALAZINE HCL 50 MG TABLET PO (09:23)
[2022-04-09] MEDS: carvediloL 25 MG TABLET PO (09:24)
[2022-04-09] MEDS: INSULIN ASPART (*BKC) 100 UNITS/ML 6 UNITS SUB-Q (09:28)
[2022-04-09] MEDS: SODIUM CHLORIDE 0.9% IV 1,000 ML 999 ML IV CONT (10:15)
[2022-04-09] MEDS: EPOETIN ALFA-EPBX 10,000 UNITS/ML VIAL 10000 UNITS IV PUSH (10:15)
--- NOTE | 2022-04-09 11:29 | PCNWS ---
Weekly nutritional screen. Patient is tolerating current diet with adequate intake. No weight loss reported. No nutritional needs at this time.
--- NOTE | 2022-04-09 11:33 | PM.PNNEP ---
Progress Note: A&P Assessment and Plan (1) ESRD (end stage renal disease): Code(s): N18.6 - End stage renal disease Status: Acute Assessment and Plan: HD today and continue M/W/F schedule follow electrolytes, volume status, and clearance (2) COVID: Code(s): U07.1 - COVID-19 Status: Acute Assessment and Plan: off isolation completed treatment with steroids respiratory status stable (3) AMS (altered mental status): Code(s): R41.82 - Altered mental status, unspecified Status: Acute Assessment and Plan: resolved follow mentantion (4) UTI (urinary tract infection): Code(s): N39.0 - Urinary tract infection, site not specified Status: Acute Assessment and Plan: urine culture with E.coli on IV antibiotics (last dose today) (5) Anemia: Code(s): D64.9 - Anemia, unspecified Status: Chronic Assessment and Plan: due to ESRD on Epogen with HD follow trend of H/H (6) Hypertension: Qualifiers: Hypertension type: renovascular hypertension Qualified Code(s): I15.0 - Renovascular hypertension Code(s): I10 - Essential (primary) hypertension Status: Chronic Assessment and Plan: reasonable control at this time follow trend of hemodynamics (7) Insulin dependent type 2 diabetes mellitus: Code(s): E11.9 - Type 2 diabetes mellitus without complications; Z79.4 - terminal manager (current) use of insulin Status: Chronic Assessment and Plan: follow Accu-Cheks on sliding-scale insulin per hospitalist Will continue to follow. Subjective Date/time seen: 04/09/22 11:33 Chart reviewed -- assuming care from Dr. Maria; tolerating dialysis treatment at the time of my visit (seen on HD treatment at 11:20AM); no apparent distress voiced; no issues/events overnight or earlier this morning; no apparent distress noted. Exam Narrative: General: WD/WN female in NAD Heart: normal S1 and S2; no rub Lungs: clear to auscultation Abdomen: soft, nontender, nondistended, positive bowel sounds Extremities: no cyanosis or clubbing; no edema; s/p left BKA and right AKA Skin: warm and dry Objective Data Vital Signs Vital Signs: Vital Signs Temp Pulse Resp BP Pulse Ox O2 Del Method 04/09/22 11:20 65 101/45 L 04/09/22 11:00 64 114/51 L 04/09/22 08:00 Room Air 04/09/22 10:40 66 86/45 L 04/09/22 10:20 65 106/50 L 04/09/22 10:00 66 107/50 L 04/09/22 09:30 36.7 C 69 16 145/71 H 04/09/22 09:41 66 142/64 H 04/09/22 09:24 69 04/09/22 08:43 96 Room Air 04/09/22 06:02 97 Room Air 04/09/22 04:00 36.7 C 69 22 H 155/59 H 95 04/09/22 02:51 76 14 04/08/22 23:57 36.2 C L 66 18 163/54 H 93 04/08/22 21:52 96 04/08/22 21:00 69 14 04/08/22 20:00 36.7 C 68 18 156/55 H 93 04/08/22 16:00 36.7 C 67 16 167/54 H 95 04/08/22 12:00 36.7 C 61 16 164/52 H 95 Intake/Output Intake/Output: Intake & Output 04/07/22 04/08/22 04/08/22 04/09/22 00:59 00:59 23:59 23:59 Intake Total 0 Output Total 100 Balance -100 Meds/Results Medications: Active Medications Generic Name Dose Route Start Last Admin Trade Name Freq PRN Reason Stop Dose Admin Acetaminophen 1,000 mg 04/01/22 07:42 Acetaminophen 500 Mg Tablet PO Q6H PRN Pain Albuterol 2 puff 04/01/22 02:00 04/09/22 08:42 Albuterol Sulfate (*Sp) Aerosol 1 Puff INHALATION 2 puff Q6HRT KEMI Administration Albuterol 2 puff 04/01/22 07:42 04/01/22 17:50 Albuterol Sulfate (*Sp) Aerosol 1 Puff INHALATION 2 puff QID PRN Administration shortness of breath or wheezing Apixaban 5 mg 04/01/22 09:00 04/09/22 09:22 Apixaban 5 Mg Tablet PO 5 mg BID KEMI Administration Aspirin 81 mg 04/01/22 08:00 04/09/22 09:22 Aspirin 81 Mg Chewable Tablet PO 81 mg
--- NOTE | 2022-04-09 12:37 | PM.DS ---
DS: Admitting Diagnosis Discharge Date 04/19/22 Admitting Diagnosis (1) COVID: ?Code(s): U07.1 - COVID-19 ?Status:?Acute (2) UTI (urinary tract infection): ?Code(s): N39.0 - Urinary tract infection, site not specified ?Status:?Acute (3) End-stage renal disease on hemodialysis: ?Code(s): N18.6 - End stage renal disease; Z99.2 - Dependence on renal dialysis ?Status:?Acute (4) Insulin dependent type 2 diabetes mellitus: ?Code(s): E11.9 - Type 2 diabetes mellitus without complications; Z79.4 - senior care (current) use of insulin ?Status:?Chronic ? (5) AMS (altered mental status): ?Code(s): R41.82 - Altered mental status, unspecified ?Status:?Acute (6) Status post below knee amputation of right lower extremity: ?Code(s): Z89.511 - Acquired absence of right leg below knee ?Status:?Acute (7) S/P AKA (above knee amputation) unilateral: ?Code(s): Z89.619 - Acquired absence of unspecified leg above knee ?Status:?Acute DS: Discharge Diagnosis Discharge Diagnosis (1) Thrombocytopenia: Code(s): D69.6 - Thrombocytopenia, unspecified Status: Chronic (2) Constipation: Code(s): K59.00 - Constipation, unspecified Status: Acute (3) S/P AKA (above knee amputation) unilateral: Code(s): Z89.619 - Acquired absence of unspecified leg above knee Status: Acute (4) AMS (altered mental status): Code(s): R41.82 - Altered mental status, unspecified Status: Acute (5) COVID: Code(s): U07.1 - COVID-19 Status: Acute (6) End-stage renal disease on hemodialysis: Code(s): N18.6 - End stage renal disease; Z99.2 - Dependence on renal dialysis Status: Acute (7) Amputation below knee: Code(s): S88.119A - Complete traumatic amputation at level between knee and ankle, unspecified lower leg, initial encounter Status: Acute (8) UTI due to extended-spectrum beta lactamase (ESBL) producing Escherichia coli: Code(s): N39.0 - Urinary tract infection, site not specified; B96.29 - Other Escherichia coli [E. coli] as the cause of diseases classified elsewhere; Z16.12 - Extended spectrum beta lactamase (ESBL) resistance Status: Acute DS: Summary Hospital Course Reason for hospitalization: Chief Complaint: ?shortness of breath Narrative: ?This is a 71-year-old female with past medical history significant for end-stage renal disease on hemodialysis, peripheral vascular disease, status post right BKA and? left AKA, tobacco dependence, morbid obesity, atrial fibrillation rate controlled anticoagulated, hypertension, insulin-dependent diabetes mellitus, dyslipidemia. patient was just recently discharged from [facility] patient was treated for COPD exacerbation and she was successfully treated and went home however she comes back today with shortness of breath, chest congestion, productive cough, generalized malaise, chills, fevers.? history taking was somehow limited due to patient's obtundation, lethargy, preliminary workup was significant for positive COVID-19, a urinalysis was significant for +75 white blood cells per high-power field. Patient is been admitted for further evaluation management and treat. Hospital Course: 04/01/22 patient has been admitted to regular medical floor ?supportive care ?started on broad-spectrum antibiotics for antibacterial coverage ?patient just recently discharged from [facility] ?continue to monitor ?on broad-spectrum antibiotics ?await cultures ?patient dialyzes Tuesdays and Saturdays ?nephrology consult ?continue insulin ?Accu-Cheks AC and HS ?1800? carb consistent diet ?likely secondary to acute illness ?supportive care ?fall precautions ?left lower extremity 04/02/22 Patient was alert but confused on admission.? CT the brain showing no acute findings.? Routine lab work showing no acute findings to explain her altered mental status
[2022-04-09 12:44] LABS: Glucose Point of Care 93 mg/dl (65-105)
[2022-04-09] MEDS: ERTAPENEM SODIUM 0.5 GM in SODIUM CHLORIDE 0.9% IV 50 ML IVPB (12:58)
== END 2022-04-09 14:45 | disposition home or self-care (01) | DRG 689 ==
LOC: ANHED 23:56 → ANH3MEDSUR 04-01 01:00
PROVIDERS: Internal Medicine; Internal Medicine Nephrology; Physician Assistant; Admitting Provider Internal Medicine; Emergency Provider Emergency Medicine; PCP Internal Medicine; Visit Provider Hospitalist
DX: N39.0 Urinary tract infection, site not specified (principal); N18.6 End stage renal disease; U07.1 COVID-19; I12.0 Hypertensive chronic kidney disease with stage 5 chronic kidney disease or end stage renal disease; Z16.12 Extended spectrum beta lactamase (ESBL) resistance; B96.20 Unspecified Escherichia coli [E. coli] as the cause of diseases classified elsewhere; I25.10 Atherosclerotic heart disease of native coronary artery without angina pectoris; E11.22 Type 2 diabetes mellitus with diabetic chronic kidney disease; Z99.2 Dependence on renal dialysis; E11.319 Type 2 diabetes mellitus with unspecified diabetic retinopathy without macular edema; E11.40 Type 2 diabetes mellitus with diabetic neuropathy, unspecified; D69.6 Thrombocytopenia, unspecified; D63.8 Anemia in other chronic diseases classified elsewhere; N25.0 Renal osteodystrophy; E78.5 Hyperlipidemia, unspecified; F17.210 Nicotine dependence, cigarettes, uncomplicated; E11.51 Type 2 diabetes mellitus with diabetic peripheral angiopathy without gangrene; E66.01 Morbid (severe) obesity due to excess calories; J44.9 Chronic obstructive pulmonary disease, unspecified; R41.82 Altered mental status, unspecified; I48.91 Unspecified atrial fibrillation; K59.00 Constipation, unspecified; Z79.01 Long term (current) use of anticoagulants; Z79.4 Long term (current) use of insulin; Z79.82 Long term (current) use of aspirin; Z79.899 Other long term (current) drug therapy; Z89.511 Acquired absence of right leg below knee; Z89.612 Acquired absence of left leg above knee; Z99.3 Dependence on wheelchair
CPT/HCPCS: 36415; 36600; 51701; 70450; 71045; 80053; 80069; 81001; 82565; 82607; 82746; 82805; 82948; 83605; 83735; 83880; 84145; 84443; 84484; 85025; 85027; 85055; 85610; 85730; 87040; 87077; 87086; 87088; 87186; 93005; 94640; 99285; A9270; G0257; J0131; J0360; J0692; J1100; J1335; J1644; J1815; J2405; J3370; J7030; Q5105

== ENCOUNTER 2022-08-09 08:05 | Observation (INO) | payer MEDICARE, OTHER, SELFPAY ==
[2022-08-09] VITALS (39 sets, daily range): BP systolic 182–223; BP diastolic 33–83; PULSE 59–94; RESP 12–19; TEMP 35.7–36.7; O2SAT 93–100; BMI 17.8
--- NOTE | ~2022-08-09 | XR_ITS ---
Clinical Indication: Shortness of breath AP and lateral views of the chest: Comparison: 04/03/2022 Findings: Stable right-sided central venous support line. Possible minimal central congestive change. No consolidation or pleural effusion otherwise. Cardiomediastinal silhouette is stable. Bones and s oft tissues are unremarkable. Impression: No interval change. Stable support line. Possible minimal central congestive change. Stable evidence of prior cardiac surgery. Reviewed, dictated and finalized at location M. TESY DRIVER Impression: No interval change. Stable support line. Possible minimal central congestive change. Stable evidence of prior cardiac surgery.
--- NOTE | 2022-08-09 08:10 | ECG_ITS ---
Measurements Intervals [place] Rate: 74 P: 42 FL: 177 QRS: -80 QRSD: 151 T: 50 QT: 418 QTc: 465 Interpretive Statements SINUS RHYTHM RIGHT BUNDLE BRANCH BLOCK LEFT ANTERIOR FASCICULAR BLOCK CONSIDER ANTEROSEPTAL INFARCT, AGE INDETERMINATE ABNORMAL ECG COMPARED TO ECG 03/31/2022 23:13:36 NO SIGNIFICANT CHANGES Electronically Signed On 08-09-2022 8:19:44 ADVERTISING DIRECTOR by Fito Mcintosh D.O.
--- NOTE | 2022-08-09 08:11 | ED.SOB ---
HPI - SOB/Dyspnea General Chief Complaint: Shortness of Breath/Dyspnea Stated Complaint: SOB COUGH Time Seen by Provider: 08/09/22 08:11 Source: patient and EMS Mode of arrival: EMS Limitations: no limitations History of Present Illness HPI Narrative: 71 years old white female came from home by an ambulance complaining of productive cough of yellow sputum for the last 2 weeks, right chest pain all night long worse with breathing, worsening shortness of breath over the last 2 days. Patient is status post a dialysis yesterday. History of CHF, CABG, diabetes, hypertension, right above-knee amputation, left below-knee amputation, pressure ulcer on the buttocks and tobacco dependence. Patient is DNR. Patient is telling me that she missed dialysis sometimes. Related Data Home Medications Medication Instructions Recorded Confirmed apixaban 5 mg tablet (Eliquis) 5 mg PO BID 11/03/19 04/01/22 carvedilol 25 mg tablet 25 mg PO BID 11/03/19 04/01/22 insulin degludec 100 unit/mL 32 unit subcut HS 11/03/19 04/01/22 subcutaneous solution (Tresiba U-100 Insulin) pravastatin 40 mg tablet 40 mg PO HS 11/03/19 04/01/22 acetaminophen 500 mg capsule 1,000 mg PO Q6H PRN Pain 02/11/20 04/01/22 sertraline 25 mg tablet 25 mg PO QAM 02/11/20 04/01/22 gabapentin 400 mg capsule 400 mg PO TID 10/09/21 04/01/22 losartan 100 mg tablet 100 mg PO [id number] 10/09/21 04/01/22 nifedipine 30 mg tablet,extended 30 mg PO Q12H 10/09/21 04/01/22 release cetirizine 10 mg tablet 10 mg PO 1XD 02/06/22 04/01/22 insulin aspart U-100 100 unit/mL 8 unit subcut TIDWMEAL 02/28/22 04/01/22 (3 mL) subcutaneous pen (Novolog FlexPen U-100 Insulin aspart) pantoprazole 40 mg tablet,delayed 40 mg PO 1XD PRN Heartburn 02/28/22 04/01/22 release Allergies Allergy/AdvReac Type Severity Reaction Status Date / Time No Known Allergies Allergy Verified 08/09/22 08:21 Review of Systems Review of Systems: All systems reviewed & are unremarkable except as noted in HPI and below PMFSH Past Medical History Medical History Arterial vascular disease Chronic anemia Coronary artery disease Digital arterial occlusive disease End-stage renal disease on hemodialysis Saturday, Saturday, Saturday. 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 Hemoglobin A1c was 6.8% in February 2020. Osteomyelitis Renal osteodystrophy Thrombocytopenia Volume overload Surgical History Surgical History Amputation of right forefoot :Right 4th and 5th ray amputation in 04/2017. :Right foot transmetatarsal amputation with partial fasciotomy due to wet gangrene, osteomyelitis, and necrotizing fasciitis in May 2017. 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 History of below-knee amputation of both lower extremities Left [id number]-[id number] amputation in 2017. Right ehfnf-bcu-uojn amputation in 02/2020. History of carpal tunnel release History of coronary artery bypass graft History of right above knee amputation (~05/12/20) History of right below knee amputation (~02/2020) History of spinal fusion History of surgical procedure on eye proper using laser Related to diabetic retinopathy. History of vascular surgery Right lower extremity stents in March 2017. Left lower extremity stent in 2014. Family History Family History Mother Diabetes mellitus Father Lung cancer Social History Social History Social History: Code status: Full code. Smoking packs per day: 0.25 Smoking cigarettes per day: 5.0 Years smoked: 60 Smoking pack-years: 15.00 Smoking status: Never smoker Tobacco type: cigarettes S
--- NOTE | 2022-08-09 08:40 | PC.NURSE ---
Pt off floor to xray.
[2022-08-09 08:48] LABS: Basophils Percent Auto 0.5 % (0.2-1.2); Eosinophils Absolute Auto 0.3 K/mm3 (0-0.3); Hematocrit 34.5 % (37.0-47.0); Hemoglobin 10.9 g/dL (12.0-15.0); Immature Granulocyte Absolute 0.03 K/mm3 (0.00-0.031); Immature Granulocyte Percent A 0.5 % (0-0.5); Lymphocytes Absolute Auto 0.99 K/mm3 (0.9-3.2); Mean Corpuscular HGB Conc 31.6 g/dl (32-36); Mean Corpuscular Hemoglobin 31.1 pg (26-34); Mean Corpuscular Volume 98.6 fl (80-100); Mean Platelet Volume 12.4 fl (7.4-10.4); Monocytes Absolute Auto 0.3 K/mm3 (0.1-0.6); Monocytes Percent Auto 4.4 % (2.6-8.5); Neutrophils Absolute Auto 4.5 K/mm3 (1.3-6.7); Neutrophils Percent Auto 73.6 % (45.5-73.1); Platelet Count Result 110 k/mm3 (150-375); Red Cell Distribution Width 12.2 % (11.5-14.5); White Blood Count 6.2 K/mm3 (4.5-10.0)
[2022-08-09 08:59] LABS: Alanine Aminotransferase 12 U/L (6-35); Albumin Level 3.4 g/dL (3.5-5.1); Alkaline Phosphatase 168 U/L (38-126); Anion Gap 3 mmol/L (8-16); Aspartate Amino Transferase 15 U/L (14-36); Bilirubin,Total 0.4 mg/dL (0.2-1.3); Blood Urea Nitrogen 24 mg/dL (7-17); Calcium 7.8 mg/dL (8.4-10.2); Carbon Dioxide 30 mmol/L (22-30); Chloride 106 mmol/L (98-107); Estimated CRCL calculation 11 ml/min; Estimated Glomerular Filt Rate 10; Glucose 262 mg/dL (65-110); INR 1.3; Prothrombin Time 15.6 Seconds (11.1-14.7); Sodium 139 mmol/L (137-145)
[2022-08-09 09:00] LABS: Partial Thromboplastin Time 35.9 SECONDS (22.3-36.8)
[2022-08-09 09:10] LABS: NT Pro B Type Natriuretic Pept 17500 pg/mL (19.9-100); Troponin I < 0.012 ng/mL (0.000-0.034)
[2022-08-09 09:31] LABS: Alveolar/Arterial O2 Gradient 30.9 mmHg; Base Excess ABG 2.4 mEq/l (+/-2.0); Fractional Inspired Oxygen 21 %; Oxygen Content ABG 14.4 %vol (16.0-22.0); PCO2 ABG 54.1 mmHg (35.0-45.0); PO2 FiO2 Ratio Arterial Blood 2.57 %; pH ABG 7.347 (7.350-7.450)
[2022-08-09 09:34] LABS: Oxygen Saturation ABG 85.9 % (95.0-100.0); Oxyhemoglobin 85.2 % THb (90.0-100.0); Site Drawn RIGHT BRACHIAL
--- NOTE | 2022-08-09 09:48 | PC.NURSE ---
Per Dr Nicholas, no need for blood cultures at this time. to cancel order
[2022-08-09 10:10] LABS: SARS-CoV-2 RNA PCR Negative
[2022-08-09] MEDS: FUROSEMIDE INJ 40 MG/4 ML VIAL 60 MG IV PUSH (10:26)
--- NOTE | 2022-08-09 10:55 | PC.NURSE ---
Per sister, patient is a Saturday, Saturday, and Saturday dialysis patient, Did complete treatment yesterday. Pt sees mercerizer at [facility].
--- NOTE | 2022-08-09 11:05 | PC.NURSE ---
report received from Sommer JOHN including plan of care and history and physical
--- NOTE | 2022-08-09 11:29 | PC.NURSE ---
aware of BP. Verbal order to restart home BP medications per list sent from sister.
[2022-08-09] MEDS: LOSARTAN POTASSIUM 100 MG TABLET PO (11:52)
[2022-08-09] MEDS: carvediloL 25 MG TABLET PO ×2 (11:52→19:11)
--- NOTE | 2022-08-09 14:00 | PC.NURSE ---
patient to dialysis at this time
--- NOTE | 2022-08-09 14:30 | PM.CNNEP ---
Assessment and Plan Assessment and plan (1) End stage renal disease: Code(s): N18.6 - End stage renal disease Status: Chronic Assessment and Plan: HD treatment tomorrow and continue M/W/F dialysis schedule follow electrolytes, volume status, and clearance (2) Acute respiratory failure with hypoxia: Code(s): J96.01 - Acute respiratory failure with hypoxia Status: Acute Assessment and Plan: suspect multifactorial: CHF/volume overload bronchitis(?) possible pneumonia (?) DUF today (dry ultrafiltration) for fluid removal repeat CXR in AM follow respiratory status (3) Hypertension: Qualifiers: Hypertension type: renovascular hypertension Qualified Code(s): I15.0 - Renovascular hypertension Code(s): I10 - Essential (primary) hypertension Status: Chronic Assessment and Plan: still quite elevated at this time resume home medications may improve with dialysis PRN IV hydralazine (4) Anemia: Code(s): D64.9 - Anemia, unspecified Status: Chronic Assessment and Plan: due to ESRD at goal Epogen with HD follow trend of H/H (5) Insulin dependent type 2 diabetes mellitus: Code(s): E11.9 - Type 2 diabetes mellitus without complications; Z79.4 - lobsterman (current) use of insulin Status: Chronic Assessment and Plan: follow accuchecks glycemic control per hospitalists Will continue to follow. History of Present Illness Reason for Consult Consult date: 08/09/22 Reason for consult: end stage renal disease Chief Complaint Chief complaint: Acute Hypoxic,Hypercapnic Resp Failure,CHF,Dialysi History of Present Illness Narrative: The patient is a 71-year-old female with a past medical history as outlined below who presented to [facility] Emergency room for further evaluation of shortness of breath. The patient reports that for the last 2 weeks she has had significant coughing with yellowish sputum production in association with shortness of breath. She reports right-sided chest pain that she thinks is related to all the coughing that she has been doing and yesterday evening, she had a difficult time catching her breath. As the symptoms seem to be progressively getting worse including her shortness of breath, more so in the last couple of days, she presented to the emergency room via EMS for further assessment. Workup and evaluation emergency room demonstrated labs consistent with her known history of end-stage renal disease although she was quite hypertensive. She reports that her last dialysis treatment was yesterday and she did completed but she is well known to miss treatments at times which she admits to. Her chest x-ray showed minimal pulmonary vascular congestion more so in the central location with no overt infiltrates or other significant findings. She was requiring 1-2 L of oxygen for support with regard to her shortness of breath. Given her constellation of symptoms in association with her complex medical history, she was admitted the hospital for further evaluation and therapy. Renal consultation was requested due to her end-stage renal disease. The patient normally dialyzes on a Saturday, Saturday, Saturday dialysis schedule at [facility] under the care of Dr. Clarke. She usually does reasonably well with her dialysis treatments although her compliance with dialysis in general is not very good as noted by her recurrent admissions here for volume overload and hyperkalemia. Per my discussion with her outpatient dialysis unit, she misses quite a few treatments in a month. As already mentioned above, she reports her last dialysis treatment was yesterday. Currently, at the time my visit, she is tolerating her dry ultrafiltration treatment (seen on DUF at 2:15PM) and she does not appear to be in acute distress. Review of Systems Review of Systems: As per HPI. PMF
--- NOTE | 2022-08-09 14:39 | PC.NURSE ---
report given to Jocelynn JOHN at this time
[2022-08-09 17:22] LABS: Glucose Point of Care 373 mg/dl (65-105)
--- NOTE | 2022-08-09 17:28 | ADMGEN ---
This patient, Tawana Prado, was admitted to IMU Room 203-01. Patient/family oriented to hospital policies and general routines including ID bracelet, bed and alarms, visiting hours, pain management, procedures, bathroom and other care routines, personal items, smoking policy, room service/diet, and visiting hours. Information on how to activate the Rapid Response Team has been discussed. Patient/Family are encouraged to report perceived risks to care and to ask questions if they do not understand what they are told or what they should do.
--- NOTE | 2022-08-09 18:15 | PM.IMHP ---
H&P: HPI History of Present Illness Date/Time: 08/09/22 18:15 Chief Complaint: Shortness of breath. Narrative: This is a pleasant 71-year-old female with peripheral vascular disease, insulin-dependent diabetes, end-stage renal disease on hemodialysis, hypertension, and chronic anemia who presented to the emergency department for evaluation of shortness of breath. Patient provides the following history. He she had full dialysis session yesterday but is unsure if she got to her dry weight, in fact she does not even know her dry weight. She felt fine when she got home yesterday but she does mention that for the last couple of weeks she has had a nagging cough. In the cat operator hours she awoke with shortness of breath and it sounds as though she had a pretty significant coughing jag. Thereafter she felt as though she just could not catch her breath and she called 911. On arrival to triage she was speaking in short sentences and her SpO2 was 88% on room air. In route to the hospital she was given 5 mg albuterol nebulizer treatment and 10 mg IV Decadron. Blood pressure in the ED was as high as 223/65. Labs were reviewed and there were no critical electrolyte abnormalities. ProBNP was quite a bit higher than what it typically runs at 17,500. Chest x-ray showed minimal central congestive changes. She was sent for dialysis and reports quite a bit improvement following her treatment. She continues to have cough but again that has been going on for weeks. It is rarely productive of yellow phlegm. Her sister lives at home with her and she has not been ill. The patient denies fever, chills, sweats, sinus congestion, sore throat, chest pain, pleuritic pain, nausea, vomiting, diarrhea, and dysuria (she still urinates a small amount). Review of Systems Review of Systems: Twelve systems were reviewed and are negative except for as per HPI. [facility] Past Medical History Medical History (Updated 08/09/22 @ 22:46 by Susan Escudero PA-C) Arterial vascular disease Chronic anemia Coronary artery disease Digital arterial occlusive disease End-stage renal disease on hemodialysis Saturday, Saturday, Saturday. 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 Hemoglobin A1c was 6.8% in February 2020. Osteomyelitis Renal osteodystrophy Thrombocytopenia Volume overload Surgical History Surgical History (Updated 08/09/22 @ 17:08 by Susan Escudero PA-C) Amputation of right forefoot Right 4th and 5th ray amputation in 04/2017. Right foot transmetatarsal amputation with partial fasciotomy due to wet gangrene, osteomyelitis, and necrotizing fasciitis in May 2017. 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 History of below-knee amputation of both lower extremities Left uczcz-efo-iuqv amputation in 2017. Right biopn-xsm-ebcz amputation in 02/2020. History of carpal tunnel release History of coronary artery bypass graft History of right above knee amputation (~05/12/20) History of right below knee amputation (~02/2020) History of spinal fusion History of surgical procedure on eye proper using laser Related to diabetic retinopathy. History of vascular surgery Right lower extremity stents in March 2017. Left lower extremity stent in 2014. Family History Family History Mother Diabetes mellitus Father Lung cancer Social History Social History (Updated 08/09/22 @ 22:41 by Susan Escudero PA-C) Social History: Surrogate medical decision maker: Kierra Blanton (sister) or Cyndi Blanton (daughter). Code status: Full code. Smoking packs per day: 0.25 Smoking cigarettes per day: 5.0 Years smoked: 60 Smoking pack-years: 15.00 Smoking status: Current every day smoker Tobacco type: cigarettes Second hand toba
[2022-08-09] MEDS: GABAPENTIN 400 MG CAPSULE PO (19:10)
[2022-08-09] MEDS: APIXABAN 5 MG TABLET PO (19:11)
[2022-08-09 20:16] LABS: Glucose Point of Care 381 mg/dl (65-105)
[2022-08-09] MEDS: PRAVASTATIN SODIUM 20 MG TABLET 40 MG PO (21:07)
[2022-08-09] MEDS: NIFEdipine 30 MG TAB.ER.24 PO (21:08)
[2022-08-09] MEDS: INSULIN GLARGINE (*BKC) 100 UNITS/ML 32 UNITS SUB-Q (21:08)
[2022-08-10] VITALS (30 sets, daily range): BP systolic 110–195; BP diastolic 46–83; PULSE 58–78; RESP 18–20; TEMP 36–36.7; O2SAT 92–100; BMI 17.8
[2022-08-10] MEDS: AZITHROMYCIN 250 MG TABLET 500 MG PO (01:34)
[2022-08-10 05:01] LABS: Hematocrit 31.4 % (37.0-47.0); Hemoglobin 10.1 g/dL (12.0-15.0); Mean Corpuscular HGB Conc 32.2 g/dl (32-36); Mean Corpuscular Hemoglobin 31.1 pg (26-34); Mean Corpuscular Volume 96.6 fl (80-100); Mean Platelet Volume 12.7 fl (7.4-10.4); Platelet Count Result 118 k/mm3 (150-375); Red Blood Count 3.25 M/mm3 (4.2-5.4); White Blood Count 6.9 K/mm3 (4.5-10.0)
[2022-08-10 05:14] LABS: Alanine Aminotransferase 12 U/L (6-35); Albumin Level 3.2 g/dL (3.5-5.1); Alkaline Phosphatase 101 U/L (38-126); Anion Gap 5 mmol/L (8-16); Aspartate Amino Transferase 13 U/L (14-36); Bilirubin,Total 0.4 mg/dL (0.2-1.3); Blood Urea Nitrogen 39 mg/dL (7-17); Calcium 7.3 mg/dL (8.4-10.2); Carbon Dioxide 29 mmol/L (22-30); Chloride 104 mmol/L (98-107); Estimated CRCL calculation 6 ml/min; Estimated Glomerular Filt Rate 8; Glucose 231 mg/dL (65-110); Magnesium 2.2 mg/dL (1.6-2.3); Phosphorus 4.6 mg/dL (2.5-4.5); Potassium 5.5 mmol/L (3.4-5.0); Sodium 138 mmol/L (137-145)
[2022-08-10] MEDS: IPRATROPIUM BR 0.02% INH SOLN 0.5 MG/2.5 ML VIAL INHALATION (07:21)
[2022-08-10] MEDS: ALBUTEROL SULFATE NEB 2.5 MG/3 ML INH INHALATION (07:21)
[2022-08-10 08:08] LABS: Glucose Point of Care 164 mg/dl (65-105)
[2022-08-10] MEDS: INSULIN ASPART (*BKC) 100 UNITS/ML 8 UNITS SUB-Q ×3 (08:34→16:49)
[2022-08-10] MEDS: carvediloL 25 MG TABLET PO ×2 (09:02→16:54)
[2022-08-10] MEDS: NIFEdipine 30 MG TAB.ER.24 PO (09:02)
[2022-08-10] MEDS: GABAPENTIN 400 MG CAPSULE PO ×3 (09:02→16:54)
[2022-08-10] MEDS: LORATADINE 10 MG TABLET PO (09:02)
[2022-08-10] MEDS: SERTRALINE HCL 25 MG TABLET PO (09:02)
[2022-08-10] MEDS: ASPIRIN 81 MG CHEWABLE TABLET PO (09:03)
[2022-08-10] MEDS: APIXABAN 5 MG TABLET PO ×2 (09:03→16:54)
[2022-08-10] MEDS: AZITHROMYCIN 250 MG TABLET PO (09:03)
--- NOTE | 2022-08-10 10:24 | P.PNNP_ITS ---
Progress Note: A&P Assessment and Plan (1) End stage renal disease: Code(s): N18.6 - End stage renal disease Status: Chronic Assessment and Plan: * hemodialysis Underway (2) Acute respiratory failure with hypoxia: Code(s): J96.01 - Acute respiratory failure with hypoxia Status: Acute Assessment and Plan: * suspect multifactorial: * CHF/volume overload * bronchitis(?) * possible pneumonia (?) * DUF today (dry ultrafiltration) for fluid removal * repeat CXR from yesterday shows mild congestive changes. * follow respiratory status (3) Hypertension: Qualifiers: Hypertension type: renovascular hypertension Qualified Code(s): I15.0 - Renovascular hypertension Code(s): I10 - Essential (primary) hypertension Status: Chronic Assessment and Plan: * Blood pressure is still high. Today early in dialysis it was 154. Will remove fluid and see how the blood pressure is after dialysis. * At home she takes carvedilol 25 twice a day, losartan 100mg once a day, nifedipine 30 twice a day, and hydralazine 50 3 times a day. * Will restart the hydralazine to start this evening. (4) Anemia: Code(s): D64.9 - Anemia, unspecified Status: Chronic Assessment and Plan: * due to ESRD * at goal * Epogen with HD * follow trend of H/H (5) Insulin dependent type 2 diabetes mellitus: Code(s): E11.9 - Type 2 diabetes mellitus without complications; Z79.4 - superintendent container terminal (current) use of insulin Status: Chronic Assessment and Plan: * follow accuchecks * glycemic control per hospitalists Subjective Date/time seen: 08/10/22 10:24 Interval history: patient is feeling better. Shortness of breath is better but still there is some. She has some swelling. Review of Systems Cardiovascular: Cardiovascular: Reports no additional cardiovascular complaints Respiratory: Respiratory: Reports no additional respiratory complaints Gastrointestinal: Gastrointestinal: Reports no additional gastrointestinal complaints Genitourinary: Genitourinary: Reports no additional female genitourinary complaints Exam Narrative: WDWN in NAD skin no rash head ncat lungs clear cor reg no rub abd BS+ nontender and soft ext Bilateral amputations. 1+ bilateral edema. Objective Data Vital Signs Vital Signs: Vital Signs - 24 hr 08/09/22 10:29 08/09/22 10:30 08/09/22 10:47 Temperature Pulse Rate 86 70 94 Respiratory Rate 12 16 Blood Pressure 223/65 H Pulse Oximetry 100 Oxygen Delivery Oxygen Flow Rate Fraction of Inspired Oxygen 08/09/22 11:07 08/09/22 11:26 08/09/22 11:34 Temperature Pulse Rate 83 69 73 Respiratory Rate 13 13 Blood Pressure Pulse Oximetry 100 97 Oxygen Delivery Oxygen Flow Rate Fraction of Inspired Oxygen 08/09/22 11:52 08/09/22 10:30 08/09/22 11:00 Temperature Pulse Rate 69 83 72 Respiratory Rate 16 Blood Pressure 219/64 H 221/67 H Pulse Oximetry Oxygen Delivery Oxygen Flow Rate Fraction of Inspired Oxygen
--- NOTE | 2022-08-10 10:24 | PM.PNNEP ---
Progress Note: A&P Assessment and Plan (1) End stage renal disease: Code(s): N18.6 - End stage renal disease Status: Chronic Assessment and Plan: hemodialysis Underway (2) Acute respiratory failure with hypoxia: Code(s): J96.01 - Acute respiratory failure with hypoxia Status: Acute Assessment and Plan: suspect multifactorial: CHF/volume overload bronchitis(?) possible pneumonia (?) DUF today (dry ultrafiltration) for fluid removal repeat CXR from yesterday shows mild congestive changes. follow respiratory status (3) Hypertension: Qualifiers: Hypertension type: renovascular hypertension Qualified Code(s): I15.0 - Renovascular hypertension Code(s): I10 - Essential (primary) hypertension Status: Chronic Assessment and Plan: Blood pressure is still high. Today early in dialysis it was 154. Will remove fluid and see how the blood pressure is after dialysis. At home she takes carvedilol 25 twice a day, losartan 100mg once a day, nifedipine 30 twice a day, and hydralazine 50 3 times a day. Will restart the hydralazine to start this evening. (4) Anemia: Code(s): D64.9 - Anemia, unspecified Status: Chronic Assessment and Plan: due to ESRD at goal Epogen with HD follow trend of H/H (5) Insulin dependent type 2 diabetes mellitus: Code(s): E11.9 - Type 2 diabetes mellitus without complications; Z79.4 - lobsterman (current) use of insulin Status: Chronic Assessment and Plan: follow accuchecks glycemic control per hospitalists Subjective Date/time seen: 08/10/22 10:24 Interval history: patient is feeling better. Shortness of breath is better but still there is some. She has some swelling. Review of Systems Cardiovascular: Cardiovascular: Reports no additional cardiovascular complaints Respiratory: Respiratory: Reports no additional respiratory complaints Gastrointestinal: Gastrointestinal: Reports no additional gastrointestinal complaints Genitourinary: Genitourinary: Reports no additional female genitourinary complaints Exam Narrative: WDWN in NAD skin no rash head ncat lungs clear cor reg no rub abd BS+ nontender and soft ext Bilateral amputations. 1+ bilateral edema. Objective Data Vital Signs Vital Signs: Vital Signs - 24 hr 08/09/22 10:29 08/09/22 10:30 08/09/22 10:47 Temperature Pulse Rate 86 70 94 Respiratory Rate 12 16 Blood Pressure 223/65 H Pulse Oximetry 100 Oxygen Delivery Oxygen Flow Rate Fraction of Inspired Oxygen 08/09/22 11:07 08/09/22 11:26 08/09/22 11:34 Temperature Pulse Rate 83 69 73 Respiratory Rate 13 13 Blood Pressure Pulse Oximetry 100 97 Oxygen Delivery Oxygen Flow Rate Fraction of Inspired Oxygen 08/09/22 11:52 08/09/22 10:30 08/09/22 11:00 Temperature Pulse Rate 69 83 72 Respiratory Rate 16 Blood Pressure 219/64 H 221/67 H Pulse Oximetry Oxygen Delivery Oxygen Flow Rate Fraction of Inspired Oxygen 08/09/22 11:15 08/09/22 14:00 08/09/22 14:00 Temperature 98.0 F Pulse Rate 68 65 Respiratory Rate 16 18 Blood Pressure 219/76 H 201/74 H Pulse Oximetry 97 Oxygen Delivery Oxygen Flow Rate 1 Fraction of Inspired Oxygen 08/09/22 14:10 08/09/22 14:30 08/09/22 14:50 Temperature Pulse Rate 67 61 64 Respiratory Rate Blood Pressure 200/59 H 182/33 H 182/33 H Pulse Oximetry Oxygen Delivery Oxygen Flow Rate Fraction of Inspired Oxygen 08/09/22 15:10 08/09/22 15:30 08/09/22 15:50 Temperature Pulse Rate 59 L 64 64 Respiratory Rate Blood Pressure 198/58 H 207/62 H 205/53 H Pulse Oximetry Oxygen Delivery Oxygen Flow Rate Fraction of Inspired Oxygen 08/09/22 16:10 08/09/22 16:30 08/09/22 16:40 Temperature Pulse Rate 64 64 75 Respiratory Rate Blood Pressure 185/55 H 209/
[2022-08-10 11:02] LABS: Hepatitis B Surface Antigen Negative (Negative)
[2022-08-10 11:07] LABS: Hepatitis B Core IgM Result Negative (Negative)
[2022-08-10 11:19] LABS: Hepatitis B Surface Anti Res Positive
--- NOTE | 2022-08-10 12:14 | PM.IMPN ---
Progress Note: A&P Assessment and Plan (1) Chronic obstructive pulmonary disease: Code(s): J44.9 - Chronic obstructive pulmonary disease, unspecified Status: Acute (2) CHF (congestive heart failure): Code(s): I50.9 - Heart failure, unspecified Status: Acute (3) S/P AKA (above knee amputation) unilateral: Code(s): Z89.619 - Acquired absence of unspecified leg above knee Status: Acute (4) Volume overload: Code(s): E87.70 - Fluid overload, unspecified Status: Acute (5) ESRD (end stage renal disease): Code(s): N18.6 - End stage renal disease Status: Acute Plan DVT prophylaxis with Eliquis GI prophylaxis with PPI Code status DNR Subjective Date/time seen: 08/10/22 12:14 Interval history: 71-year-old female with peripheral vascular disease, insulin-dependent diabetes, end-stage renal disease on hemodialysis, hypertension, and chronic anemia who presented to the emergency department for evaluation of shortness of breath. Objective Data Vital Signs Vital Signs: Vital Signs - 24 hr 08/09/22 14:00 08/09/22 14:00 08/09/22 14:10 Temperature 98.0 F Pulse Rate 65 67 Respiratory Rate 18 Blood Pressure 201/74 H 200/59 H Pulse Oximetry Oxygen Delivery Oxygen Flow Rate 1 Fraction of Inspired Oxygen 08/09/22 14:30 08/09/22 14:50 08/09/22 15:10 Temperature Pulse Rate 61 64 59 L Respiratory Rate Blood Pressure 182/33 H 182/33 H 198/58 H Pulse Oximetry Oxygen Delivery Oxygen Flow Rate Fraction of Inspired Oxygen 08/09/22 15:30 08/09/22 15:50 08/09/22 16:10 Temperature Pulse Rate 64 64 64 Respiratory Rate Blood Pressure 207/62 H 205/53 H 185/55 H Pulse Oximetry Oxygen Delivery Oxygen Flow Rate Fraction of Inspired Oxygen 08/09/22 16:30 08/09/22 16:40 08/09/22 16:54 Temperature 97.8 F Pulse Rate 64 75 65 Respiratory Rate 16 Blood Pressure 209/47 H 214/59 H 203/49 H Pulse Oximetry Oxygen Delivery Oxygen Flow Rate Fraction of Inspired Oxygen 08/09/22 17:00 08/09/22 19:11 08/09/22 18:00 Temperature 97.9 F Pulse Rate 62 66 92 Respiratory Rate 18 Blood Pressure 192/63 H Pulse Oximetry 100 Oxygen Delivery Oxygen Flow Rate Fraction of Inspired Oxygen 08/09/22 20:00 08/09/22 20:00 08/09/22 20:00 Temperature 97.2 F L Pulse Rate 67 68 68 Respiratory Rate 16 16 Blood Pressure 213/52 H Pulse Oximetry 99 99 Oxygen Delivery Nasal Cannula Oxygen Flow Rate 3 Fraction of Inspired Oxygen 08/10/22 00:00 08/10/22 00:00 08/10/22 00:00 Temperature 97.4 F L Pulse Rate 72 78 78 Respiratory Rate 20 20 Blood Pressure 110/73 Pulse Oximetry 100 100 Oxygen Delivery Nasal Cannula Oxygen Flow Rate 3 Fraction of Inspired Oxygen 08/10/22 02:00 08/10/22 04:00 08/10/22 04:00 Temperature Pulse Rate 69 66 66 Respiratory Rate 20 Blood Pressure Pulse Oximetry 100 Oxygen Delivery Nasal Cannula Oxygen Flow Rate 3 Fraction of Inspired Oxygen 08/10/22 04:00 08/10/22 06:00 08/10/22 07:21 Temperature 97.6 F Pulse Rate 67 68 65 Respiratory Rate 20 18 Blood Pressure 177/53 H Pulse Oximetry 98 97 Oxygen Delivery Nasal Cannula Oxygen Flow Rate 2 Fraction of Inspired Oxygen 28 08/10/22 07:21 08/10/22 07:39 08/10/22 08:09 Temperature 97.0 F L Pulse Rate 65 66 65 Respiratory Rate 18 18 18 Blood Pressure 182/53 H Pulse Oximetry 100 Oxygen Delivery Oxygen Flow Rate Fraction of Inspired Oxygen 08/10/22 09:02 08/10/22 09:20 08/10/22 09:25 Temperature 98.0 F Pulse Rate 69 66 Respiratory Rate 20 Blood Pressure 154/58 H Pulse Oximetry 98 Oxygen Delivery Oxygen Flow Rate 2 Fraction of Inspired Oxygen 08/10/22 09:36 08/10/22 09:40 08/10/22 10:00 Temperature Pulse Rate 67 65 64 Respiratory Rate Blood Pressure 181/74 H 181/83 H 195/78 H Pulse Ox
[2022-08-10] MEDS: EPOETIN ALFA-EPBX 4,000 UNITS/ML VIAL 4000 UNITS IV PUSH (12:24)
[2022-08-10 13:28] LABS: Glucose Point of Care 94 mg/dl (65-105)
--- NOTE | 2022-08-10 15:57 | PM.DS ---
DS: Admitting Diagnosis Discharge Date 08/10/22 Admitting Diagnosis Dyspnea with cough DS: Discharge Diagnosis Discharge Diagnosis (1) Chronic obstructive pulmonary disease: Code(s): J44.9 - Chronic obstructive pulmonary disease, unspecified Status: Acute (2) CHF (congestive heart failure): Code(s): I50.9 - Heart failure, unspecified Status: Acute (3) S/P AKA (above knee amputation) unilateral: Code(s): Z89.619 - Acquired absence of unspecified leg above knee Status: Acute (4) Volume overload: Code(s): E87.70 - Fluid overload, unspecified Status: Acute (5) ESRD (end stage renal disease): Code(s): N18.6 - End stage renal disease Status: Acute DS: Summary Hospital Course Hospital Course: 71-year-old female with peripheral vascular disease, insulin-dependent diabetes, end-stage renal disease on hemodialysis hypertension anemia presented to the ER with shortness of breath and cough. She was started on a short course of azithromycin and given a few extra treatments of dialysis. Chest x-ray had showed some mild congestion that resolved with dialysis. All symptoms resolved she was discharged back home in stable condition. Time Spent with Patient Time attestation: Total time spent providing and/or coordinating discharge services: Exam Narrative: General: No acute distress, alert and oriented per baseline HEENT: Atraumatic, normocephalic, mucous membranes moist CV: Regular rate and rhythm, S1, S2 Lungs: Clear to auscultation bilaterally, no wheeze, a few scattered crackles noted at bases Abdomen: Soft, nontender, nondistended Extremities: Left BKA, right AKA Skin: No rashes noted, no lesions or wounds seen Psych: Euthymic, normal affect DS: Data Data Completed and Pending Labs on day of discharge: Labs from last 24 hours 08/10/22 08/10/22 08/10/22 13:25 07:48 04:41 WBC RBC Hgb Hct MCV MCH MCHC RDW Plt Count MPV Sodium Potassium Chloride Carbon Dioxide Anion Gap BUN Creatinine Estim Creat Clear Calc Estimated GFR Glucose POC Capillary Glucose 94 164 H Calcium Phosphorus Magnesium Total Bilirubin AST ALT Alkaline Phosphatase Total Protein Albumin TSH (Reflex) 1.620 Hep Bs Antigen Hep Bs Antibody Hep B Core IgM Ab 08/10/22 08/10/22 08/10/22 04:41 04:41 04:25 WBC 6.9 RBC 3.25 L Hgb 10.1 L Hct 31.4 L MCV 96.6 MCH 31.1 MCHC 32.2 RDW 12.0 Plt Count 118 L MPV 12.7 H Sodium 138 Potassium 5.5 H Chloride 104 Carbon Dioxide 29 Anion Gap 5 L BUN 39 H D Creatinine 5.20 H Estim Creat Clear Calc 6 Estimated GFR 8 L Glucose 231 H POC Capillary Glucose Calcium 7.3 L Phosphorus 4.6 H Magnesium 2.2 Total Bilirubin 0.4 AST 13 L ALT 12 Alkaline Phosphatase 101 Total Protein 6.0 L Albumin 3.2 L TSH (Reflex) Hep Bs Antigen Negative Hep Bs Antibody Positive Hep B Core IgM Ab Negative 08/09/22 08/09/22 20:10 17:17 WBC RBC Hgb Hct MCV MCH MCHC RDW Plt Count MPV Sodium Potassium Chloride Carbon Dioxide Anion Gap BUN Creatinine Estim Creat Clear Calc Estimated GFR Glucose POC Capillary Glucose 381 H 373 H Calcium Phosphorus Magnesium Total Bilirubin AST ALT Alkaline Phosphatase Total Protein Albumin TSH (Reflex) Hep Bs Antigen Hep Bs Antibody Hep B Core IgM Ab Discharge Plan Discharge Attending physician on discharge: Karlene Cortes Consulting providers: Elio Pereira Discharging Clinician: Karlene Cortes Patient Disposition: Home, Self-Care Activity: as tolerated Diet: as tolerated and renal Patient Instructions: Antibiotic Form Stand Alone Forms: General Discharge Information Fol
[2022-08-10 16:47] LABS: Glucose Point of Care 103 mg/dl (65-105)
--- NOTE | 2022-08-10 19:55 | PC.NURSE ---
rose delgado family member of patient is coming up to pepper picker patient for discharge. patient was supposed to go by [facility] but it was taking to long. housekeeping and laundry team leader updated.
[2022-08-10 20:23] LABS: Glucose Point of Care 165 mg/dl (65-105)
== END 2022-08-10 20:30 | disposition home or self-care (01) ==
LOC: ANHED 08:35 → ANHIMU 12:48
PROVIDERS: Internal Medicine Nephrology; Physician Assistant; Admitting Provider Student in an Organized Health Care Education/Training Program; Emergency Provider Emergency Medicine; PCP Internal Medicine; Visit Provider Student in an Organized Health Care Education/Training Program
DX: J44.9 Chronic obstructive pulmonary disease, unspecified (principal); I13.2 Hypertensive heart and chronic kidney disease with heart failure and with stage 5 chronic kidney disease, or end stage renal disease; I50.9 Heart failure, unspecified; E11.22 Type 2 diabetes mellitus with diabetic chronic kidney disease; N18.6 End stage renal disease; Z99.2 Dependence on renal dialysis; D64.9 Anemia, unspecified; E11.319 Type 2 diabetes mellitus with unspecified diabetic retinopathy without macular edema; E11.40 Type 2 diabetes mellitus with diabetic neuropathy, unspecified; E11.21 Type 2 diabetes mellitus with diabetic nephropathy; E87.70 Fluid overload, unspecified; L89.309 Pressure ulcer of unspecified buttock, unspecified stage; Z20.822 Contact with and (suspected) exposure to COVID-19; R12 Heartburn; I25.10 Atherosclerotic heart disease of native coronary artery without angina pectoris; Z95.1 Presence of aortocoronary bypass graft; E78.5 Hyperlipidemia, unspecified; N25.0 Renal osteodystrophy; D69.6 Thrombocytopenia, unspecified; Z98.62 Peripheral vascular angioplasty status; Z89.611 Acquired absence of right leg above knee; Z89.512 Acquired absence of left leg below knee; Z89.022 Acquired absence of left finger(s); R94.31 Abnormal electrocardiogram [ECG] [EKG]; Z89.431 Acquired absence of right foot; Z77.22 Contact with and (suspected) exposure to environmental tobacco smoke (acute) (chronic); F10.90 Alcohol use, unspecified, uncomplicated; Z66 Do not resuscitate; Z79.01 Long term (current) use of anticoagulants; Z79.4 Long term (current) use of insulin; Z79.1 Long term (current) use of non-steroidal anti-inflammatories (NSAID); Z79.85 Long-term (current) use of injectable non-insulin antidiabetic drugs; Z79.899 Other long term (current) drug therapy; Z83.3 Family history of diabetes mellitus
CPT/HCPCS: 36415; 36600; 71046; 80053; 82805; 82948; 83735; 83880; 84100; 84443; 84484; 85025; 85027; 85610; 85730; 86705; 86706; 87340; 93005; 94640; 96374; 99285; A9270; G0257; G0378; J1644; J1815; J1940; J7030; Q5105; U0003; U0005

== ENCOUNTER 2022-10-06 08:03 | Observation (INO) | payer MEDICARE, OTHER, SELFPAY ==
[2022-10-06] VITALS (49 sets, daily range): BP systolic 127–198; BP diastolic 49–123; PULSE 59–80; RESP 11–20; TEMP 36–36.7; O2SAT 96–100; BMI 37.8
--- NOTE | ~2022-10-06 | XR_ITS ---
EXAMINATION: XR chest 1V portable DATE: 10/06/2022 08:23 INDICATION: Chest pain. TECHNIQUE: A single frontal view of the chest was obtained. COMPARISON: Chest 2 views 08/10/2022, CT abdomen and pelvis 10/25/2021 FINDINGS: There are airspace opacities in the lower lung zones. No pleural effusion or pneumothorax. Cardiomegaly is noted. Median sternotomy wires and mediastinal surgical clips are seen, likely from p rior coronary artery bypass grafting. A right internal jugular central venous catheter is seen with t ip in the right atrium. IMPRESSION: 1. Airspace opacities in the lower lung zones, consistent with atelectasis versus pneumonia. 2. Cardiomegaly. Reviewed, dictated and finalized at location A. IMPRESSION: 1. Airspace opacities in the lower lung zones, consistent with atelectasis vers us pneumonia. 2. Cardiomegaly.
--- NOTE | 2022-10-06 08:04 | ECG_ITS ---
Measurements Intervals [place] Rate: 63 P: 44 MO: 196 QRS: -80 QRSD: 149 T: 65 QT: 470 QTc: 485 Interpretive Statements SINUS RHYTHM RIGHT BUNDLE BRANCH BLOCK LEFT ANTERIOR FASCICULAR BLOCK CONSIDER ANTEROSEPTAL INFARCT, AGE INDETERMINATE BASELINE ARTIFACT- AVL ABNORMAL ECG COMPARED TO ECG 08/09/2022 08:15:14 NO SIGNIFICANT CHANGES Electronically Signed On 10-06-2022 8:53:34 CDT by Fito Mcintosh D.O.
--- NOTE | 2022-10-06 08:13 | PC.NURSE ---
Patient reports she get dialysis every Saturday, , and Saturday. Patient missed her dialysis today due to coming to the hospital.
[2022-10-06 08:25] LABS: Basophils Percent Auto 0.5 % (0.2-1.2); Eosinophils Absolute Auto 0.3 K/mm3 (0-0.3); Eosinophils Percent Auto 4.7 % (0-4.4); Hematocrit 31.2 % (37.0-47.0); Hemoglobin 9.8 g/dL (12.0-15.0); Immature Granulocyte Absolute 0.03 K/mm3 (0.00-0.031); Immature Granulocyte Percent A 0.5 % (0-0.5); Lymphocytes Absolute Auto 0.98 K/mm3 (0.9-3.2); Lymphocytes Percent Auto 15.2 % (18.3-44.2); Mean Corpuscular HGB Conc 31.4 g/dl (32-36); Mean Corpuscular Hemoglobin 31.8 pg (26-34); Mean Corpuscular Volume 101.3 fl (80-100); Mean Platelet Volume 12.4 fl (7.4-10.4); Monocytes Absolute Auto 0.4 K/mm3 (0.1-0.6); Monocytes Percent Auto 5.4 % (2.6-8.5); Neutrophils Absolute Auto 4.7 K/mm3 (1.3-6.7); Neutrophils Percent Auto 73.7 % (45.5-73.1); Platelet Count Result 111 k/mm3 (150-375); Red Blood Count 3.08 M/mm3 (4.2-5.4); Red Cell Distribution Width 12.4 % (11.5-14.5); White Blood Count 6.4 K/mm3 (4.5-10.0)
--- NOTE | 2022-10-06 08:29 | PC.NURSE ---
Patient oxygen turned off and patient's oxygen saturations dropped to 88%, freelance writer placed patient back on 2L of oxygen and oxygen saturations increased to 97%.
[2022-10-06 08:36] LABS: INR 1.4; Prothrombin Time 18.2 Seconds (11.1-14.7)
[2022-10-06 08:39] LABS: Alanine Aminotransferase 13 U/L (6-35); Albumin Level 3.4 g/dL (3.5-5.1); Alkaline Phosphatase 128 U/L (38-126); Anion Gap 8 mmol/L (8-16); Aspartate Amino Transferase 15 U/L (14-36); Bilirubin,Total 0.4 mg/dL (0.2-1.3); Blood Urea Nitrogen 30 mg/dL (7-17); Calcium 6.9 mg/dL (8.4-10.2); Carbon Dioxide 29 mmol/L (22-30); Chloride 102 mmol/L (98-107); Estimated Glomerular Filt Rate 6; Glucose 143 mg/dL (65-110); Potassium 5.1 mmol/L (3.4-5.0); Sodium 139 mmol/L (137-145)
[2022-10-06] MEDS: IPRATROPIUM BR 0.02% INH SOLN 0.5 MG/2.5 ML VIAL 1.5 MG INHALATION (09:00)
[2022-10-06] MEDS: LEVALBUTEROL NEB 1.25 MG/3 ML 2.5 MG INHALATION (09:00)
[2022-10-06 09:18] LABS: NT Pro B Type Natriuretic Pept > 30000 pg/mL (19.9-100)
--- NOTE | 2022-10-06 10:49 | ED.CHESTPAIN ---
HPI - Chest Pain General Chief Complaint: Chest Pain Stated Complaint: CP c SOB History of Present Illness HPI narrative: Patient is a 71-year-old female who presents ER with chest pain and shortness of breath. Began this morning. Central chest pain worse with deep breath. She also reports she is having dyspnea at rest and has noticed some wheezing. No fevers or chills or sweats. She is anticoagulated on Eliquis. Patient has history of end-stage renal disease and requires dialysis. She is due for dialysis today. Denies missing a treatment. No runny nose or sore throat. Patient does make urine. Related Data Home Medications Medication Instructions Recorded Confirmed apixaban 5 mg tablet (Eliquis) 5 mg PO BID 11/03/19 10/06/22 carvedilol 25 mg tablet 25 mg PO BID 11/03/19 10/06/22 insulin degludec 100 unit/mL 32 unit subcut HS 11/03/19 10/06/22 subcutaneous solution (Tresiba U-100 Insulin) pravastatin 40 mg tablet 40 mg PO HS 11/03/19 10/06/22 acetaminophen 500 mg capsule 1,000 mg PO Q6H PRN Pain 02/11/20 10/06/22 sertraline 25 mg tablet 25 mg PO QAM 02/11/20 10/06/22 gabapentin 400 mg capsule 400 mg PO TID 10/09/21 10/06/22 losartan 100 mg tablet 100 mg PO [id number] 10/09/21 10/06/22 nifedipine 30 mg tablet,extended 30 mg PO Q12H 10/09/21 10/06/22 release cetirizine 10 mg tablet 10 mg PO 1XD 02/06/22 10/06/22 insulin aspart U-100 100 unit/mL 8 unit subcut TIDWMEAL 02/28/22 10/06/22 (3 mL) subcutaneous pen (Novolog FlexPen U-100 Insulin aspart) pantoprazole 40 mg tablet,delayed 40 mg PO 1XD PRN Heartburn 02/28/22 10/06/22 release Allergies Allergy/AdvReac Type Severity Reaction Status Date / Time No Known Allergies Allergy Verified 10/06/22 15:23 Review of Systems Review of Systems: All systems reviewed & are unremarkable except as noted in HPI and below Constitutional: Constitutional: Denies chills, Denies fatigue and Denies fever(s) ENT: Denies nasal congestion and Denies sore throat Cardiovascular: Cardiovascular: Reports chest pain, Denies rapid heart rate and Denies radiating jaw, neck or arm pain Respiratory: Respiratory: Reports cough, Reports dyspnea and Reports wheezing Gastrointestinal: Gastrointestinal: Denies abdominal pain, Denies nausea and Denies vomiting [facility] Past Medical History Medical History (Updated 10/06/22 @ 17:58 by Kimo Cooper MD) Arterial vascular disease Chronic anemia Coronary artery disease Digital arterial occlusive disease End-stage renal disease on hemodialysis Saturday, Saturday, Saturday. 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 Hemoglobin A1c was 6.8% in February 2020. Osteomyelitis Renal osteodystrophy Thrombocytopenia Surgical History Surgical History (Updated 10/06/22 @ 14:23 by Susan Escudero PA-C) Amputation of right forefoot Right 4th and 5th ray amputation in 04/2017. Right foot transmetatarsal amputation with partial fasciotomy due to wet gangrene, osteomyelitis, and necrotizing fasciitis in May 2017. 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 History of below-knee amputation of both lower extremities Left [id number] amputation in 2017. Right [id number] amputation in 02/2020. History of bilateral cataract extraction History of carpal tunnel release History of four vessel coronary artery bypass graft (04/2019) History of right above knee amputation (05/12/20) History of right below knee amputation (10/06/22) History of spinal fusion History of surgical procedure on eye proper using laser Related to diabetic retinopathy. History of vascular surgery Right lower extremity stents in March 2017. Left lower extremity stent in 2014. Family History Family History Mother Diabetes me
[2022-10-06] MEDS: FUROSEMIDE INJ 100 MG/10 ML VIAL 40 MG IV PUSH (11:18)
[2022-10-06 11:40] LABS: Troponin I 0.075 ng/mL (0.000-0.034)
--- NOTE | 2022-10-06 13:39 | PC.NURSE ---
PT tray ordered at this time
[2022-10-06] MEDS: LEVALBUTEROL NEB 1.25 MG/3 ML 0.63 MG INHALATION ×2 (14:17→20:25)
[2022-10-06] MEDS: IPRATROPIUM BR 0.02% INH SOLN 0.5 MG/2.5 ML VIAL INHALATION ×2 (14:17→20:25)
--- NOTE | 2022-10-06 14:19 | PM.IMHP ---
H&P: HPI History of Present Illness Date/Time: 10/06/22 15:00 Chief Complaint: Chest pain and shortness of breath. Narrative: This is a pleasant 71-year-old female with coronary artery disease, peripheral vascular disease, insulin-dependent diabetes, end-stage renal disease on hemodialysis, hypertension, chronic obstructive pulmonary disease, and chronic anemia who presented to the emergency department for evaluation of chest pain and shortness of breath. The patient provides the following history. It is not unusual for her to have a cough and this morning she reports having a prolonged coughing fit, productive of clear phlegm. She felt like she was not able to catch her breath after that coughing episode and she reports having a tightness and heaviness sensation in the substernal chest at that time. She was also wheezing quite significantly in used her rescue inhaler with only mild benefit. She denies syncope, near syncope, sweats, nausea, vomiting, pleuritic pain, and palpitations. Due to ongoing chest discomfort and shortness of breath EMS was summoned. On arrival her SpO2 was 80% on room air and she has been on 2 L nasal cannula since that time. Labs were significant for a stable anemia, sodium 139, potassium 5.1, troponin 0.070, proBNP greater than 30,000. EKG showed a sinus rhythm with right bundle branch block, left anterior fascicular block, and age-indeterminate anteroseptal infarct; this tracing is not significantly changed when compared to prior EKGs. With her comorbidities I was asked to admit the patient overnight to rule out acute coronary syndrome. At the time my evaluation she is not having any chest discomfort at this time. She denies feeling any more short of breath than usual. Review of Systems Review of Systems: Twelve systems were reviewed and are negative except for as per HPI. [facility] Past Medical History Medical History (Updated 10/06/22 @ 20:41 by Susan Escudero PA-C) Arterial vascular disease Chronic anemia Coronary artery disease Digital arterial occlusive disease End-stage renal disease on hemodialysis Saturday, , Saturday. 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 Hemoglobin A1c was 6.8% in February 2020. Osteomyelitis Renal osteodystrophy Thrombocytopenia Surgical History Surgical History (Updated 10/06/22 @ 14:23 by Susan Escudero PA-C) Amputation of right forefoot Right 4th and 5th ray amputation in 04/2017. Right foot transmetatarsal amputation with partial fasciotomy due to wet gangrene, osteomyelitis, and necrotizing fasciitis in May 2017. 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 History of below-knee amputation of both lower extremities Left [id number]-[id number] amputation in 2017. Right [id number]-gin-jefg amputation in 02/2020. History of bilateral cataract extraction History of carpal tunnel release History of four vessel coronary artery bypass graft (04/2019) History of right above knee amputation (05/12/20) History of right below knee amputation (10/06/22) History of spinal fusion History of surgical procedure on eye proper using laser Related to diabetic retinopathy. History of vascular surgery Right lower extremity stents in March 2017. Left lower extremity stent in 2014. Family History Family History Mother Diabetes mellitus Father Lung cancer Social History Social History Social History: Surrogate medical decision maker: Kierra Blanton (sister) or Cyndi Blanton (daughter). Code status: Full code. Smoking packs per day: 0.5 Smoking cigarettes per day: 10.0 Years smoked: 55 Smoking pack-years: 27.50 Smoking status: Current every day smoker Tobacco type: ciga
[2022-10-06 14:39] LABS: Troponin I 0.058 ng/mL (0.000-0.034)
[2022-10-06 15:05] LABS: Glucose Point of Care 224 mg/dl (65-105)
--- NOTE | 2022-10-06 15:20 | ADMGEN ---
This patient, Tawana Prado, was admitted to IMU Room 212-01. Patient/family oriented to hospital policies and general routines including ID bracelet, bed and alarms, visiting hours, pain management, procedures, bathroom and other care routines, personal items, smoking policy, room service/diet, and visiting hours. Information on how to activate the Rapid Response Team has been discussed. Patient/Family are encouraged to report perceived risks to care and to ask questions if they do not understand what they are told or what they should do.
[2022-10-06 17:33] LABS: Hepatitis B Surface Antigen Negative (Negative)
--- NOTE | 2022-10-06 17:35 | PM.CNNEP ---
Assessment and Plan Assessment and plan (1) End stage renal disease: Code(s): N18.6 - End stage renal disease Status: Chronic Assessment and Plan: HD today and continue T/T/S dialysis schedule follow electrolytes, volume status, and clearance (2) Chest pain: Qualifiers: Chest pain type: unspecified Qualified Code(s): R07.9 - Chest pain, unspecified Code(s): R07.9 - Chest pain, unspecified Status: Acute Assessment and Plan: suspect musculoskeletal etiology troponins and EKG noted reproducible pain on palpation of chest related to cough (?) continue supportive therapy (3) Chronic obstructive pulmonary disease: Code(s): J44.9 - Chronic obstructive pulmonary disease, unspecified Status: Acute Assessment and Plan: exacerbation noted continue supplemental oxygen continue nebulizer treatment need steroids (?) follow respiratory status (4) Hypertension: Qualifiers: Hypertension type: renovascular hypertension Qualified Code(s): I15.0 - Renovascular hypertension Code(s): I10 - Essential (primary) hypertension Status: Chronic Assessment and Plan: quite elevated at this time resume home medications may improve with dialysis PRN IV hydralazine (5) Anemia: Code(s): D64.9 - Anemia, unspecified Status: Chronic Assessment and Plan: due to ESRD at goal Epogen with HD follow trend of H/H (6) Insulin dependent type 2 diabetes mellitus: Code(s): E11.9 - Type 2 diabetes mellitus without complications; Z79.4 - [employer] (current) use of insulin Status: Chronic Assessment and Plan: follow accuchecks glycemic control per hospitalists Will continue to follow. History of Present Illness Reason for Consult Consult date: 10/06/22 Reason for consult: end stage renal disease Chief Complaint Chief complaint: Chest pain, volume overload, wheezing History of Present Illness Narrative: The patient is a 71-year-old female with a past medical history as outlined below who presented to [facility] Emergency room for further evaluation of shortness of breath and chest pain. she noted this morning that she had a cough that was somewhat more prolonged than usual productive of clear sputum. Following this event she was unable to catch her breath and reports feeling a tightness /heaviness in the substernal chest area. She also reports audible wheezing which usually improves with use of her rescue inhaler but this did not occur. Due to the progressive nature of her shortness of breath and chest discomfort, she called 911. upon EMS arrival, she was apparently 80% on room air and had to be placed on 2 L of oxygen to improve her oxygen saturations. She was subsequently transferred to the ER for further assessment. Workup and evaluation in the emergency room demonstrated the patient to be hemodynamically stable (if not hypertensive). Routine blood tests were significant for labs consistent with her known history of end-stage renal disease with a potassium that was mildly elevated at 5.1 a proBNP greater than 30,000 and no other significant electrolyte abnormalities. Her EKG did not show any significant ischemic changes. It should be noted that by the time of her arrival to the emergency room, her chest discomfort had resolved. Never less, given her extensive comorbidities and past medical history, the patient was admitted to the hospital for further evaluation and therapy. Renal consultation was requested due to her end-stage renal disease. The patient normally dialyzes on a Saturday, , Saturday dialysis schedule at [facility] under the care of Dr. Clarke. She usually does reasonably well with her dialysis treatments although her compliance with dialysis in general is not very good as noted by her recurrent admissions here at [facility] fo
[2022-10-06 17:51] LABS: Hepatitis B Surface Anti Res Positive
[2022-10-06] MEDS: EPOETIN ALFA-EPBX 4,000 UNITS/ML VIAL 4000 UNITS IV PUSH (18:33)
[2022-10-06] MEDS: SODIUM CHLORIDE 0.9% IV 1,000 ML 999 ML IV CONT (18:33)
[2022-10-06 20:35] LABS: Glucose Point of Care 255 mg/dl (65-105)
[2022-10-06] MEDS: FUROSEMIDE INJ 40 MG/4 ML VIAL IV PUSH (22:12)
[2022-10-06] MEDS: APIXABAN 5 MG TABLET PO (22:12)
[2022-10-06] MEDS: carvediloL 25 MG TABLET PO (22:13)
[2022-10-06] MEDS: PANTOPRAZOLE 40 MG TABLET PO (22:13)
[2022-10-06] MEDS: NIFEdipine 30 MG TAB.ER.24 PO (22:14)
[2022-10-06] MEDS: GABAPENTIN 400 MG CAPSULE PO (22:14)
[2022-10-06] MEDS: PRAVASTATIN SODIUM 20 MG TABLET 40 MG PO (22:15)
[2022-10-07] VITALS (23 sets, daily range): BP systolic 116–198; BP diastolic 40–102; PULSE 51–78; RESP 16–22; TEMP 36.3–36.6; O2SAT 91–100
[2022-10-07] MEDS: LEVALBUTEROL NEB 1.25 MG/3 ML 0.63 MG INHALATION ×4 (02:06→21:27)
[2022-10-07] MEDS: IPRATROPIUM BR 0.02% INH SOLN 0.5 MG/2.5 ML VIAL INHALATION ×4 (02:07→21:27)
[2022-10-07 04:46] LABS: Hematocrit 31.2 % (37.0-47.0); Mean Corpuscular HGB Conc 32.1 g/dl (32-36); Mean Corpuscular Hemoglobin 31.8 pg (26-34); Mean Corpuscular Volume 99.4 fl (80-100); Mean Platelet Volume 12.2 fl (7.4-10.4); Platelet Count Result 106 k/mm3 (150-375); Red Blood Count 3.14 M/mm3 (4.2-5.4); Red Cell Distribution Width 12.4 % (11.5-14.5); White Blood Count 6.9 K/mm3 (4.5-10.0)
[2022-10-07 05:10] LABS: Anion Gap 3 mmol/L (8-16); Blood Urea Nitrogen 23 mg/dL (7-17); Calcium 7.1 mg/dL (8.4-10.2); Carbon Dioxide 37 mmol/L (22-30); Chloride 96 mmol/L (98-107); Estimated CRCL calculation 11 ml/min; Estimated Glomerular Filt Rate 10; Glucose 182 mg/dL (65-110); Magnesium 1.9 mg/dL (1.6-2.3); Sodium 136 mmol/L (137-145)
[2022-10-07] MEDS: carvediloL 25 MG TABLET PO ×2 (08:53→16:29)
[2022-10-07] MEDS: NIFEdipine 30 MG TAB.ER.24 PO (08:54)
[2022-10-07] MEDS: LOSARTAN POTASSIUM 100 MG TABLET PO (08:54)
[2022-10-07] MEDS: LORATADINE 10 MG TABLET PO (08:54)
[2022-10-07] MEDS: GABAPENTIN 400 MG CAPSULE PO ×2 (08:54→16:30)
[2022-10-07] MEDS: AZITHROMYCIN 250 MG TABLET PO (08:54)
[2022-10-07] MEDS: APIXABAN 5 MG TABLET PO ×2 (08:54→16:29)
[2022-10-07] MEDS: FUROSEMIDE INJ 40 MG/4 ML VIAL IV PUSH ×2 (08:54→21:07)
[2022-10-07] MEDS: ASPIRIN 81 MG CHEWABLE TABLET PO (08:54)
[2022-10-07] MEDS: SERTRALINE HCL 25 MG TABLET PO (08:55)
[2022-10-07 10:56] LABS: Glucose Point of Care 149 mg/dl (65-105)
[2022-10-07 12:13] LABS: Glucose Point of Care 162 mg/dl (65-105)
--- NOTE | 2022-10-07 12:13 | PM.IMPN ---
Progress Note: A&P Assessment and Plan (1) Chest pain: Qualifiers: Chest pain type: unspecified Qualified Code(s): R07.9 - Chest pain, unspecified Code(s): R07.9 - Chest pain, unspecified Status: Acute Assessment and Plan: Resolved, do not suspect cardiac etiology (2) End-stage renal disease on hemodialysis: Code(s): N18.6 - End stage renal disease; Z99.2 - Dependence on renal dialysis Status: Acute Assessment and Plan: Appreciate nephrology management for fluid overload (3) Hypertension: Qualifiers: Hypertension type: renovascular hypertension Qualified Code(s): I15.0 - Renovascular hypertension Code(s): I10 - Essential (primary) hypertension Status: Chronic Assessment and Plan: Continue antihypertensives Blood pressures reviewed 10/07 Hydralazine as needed (4) Insulin dependent type 2 diabetes mellitus: Code(s): E11.9 - Type 2 diabetes mellitus without complications; Z79.4 - [facility] (current) use of insulin Status: Chronic Assessment and Plan: Continue basal insulin. Initiate sliding scale insulin, Accu-Cheks, and hypoglycemic protocol. Blood glucose reviewed 10/07 (5) Chronic anemia: Code(s): D64.9 - Anemia, unspecified Status: Acute Assessment and Plan: Stable on review of previous labs. (6) Chronic obstructive pulmonary disease: Code(s): J44.9 - Chronic obstructive pulmonary disease, unspecified Status: Acute Assessment and Plan: No significant bronchospasm on exam today. Continue p.r.n. inhalers. Plan DVT prophylaxis with Eliquis GI prophylaxis not indicated Code status full code Subjective Date/time seen: 10/07/22 12:13 Interval history: 71-year-old female with history of heart disease, diabetes, ESRD on hemodialysis as well as COPD is presenting with chest pain and shortness of breath thought to be secondary to volume overload, nephrology consulted for dialysis. No overnight events noted. No chest pain. No nausea, vomiting or diarrhea. No fevers or chills. States she feels like there is fluid in her chest and is c/o MATHIS. Review of Systems Review of Systems: 12 point review of systems was assessed and was negative except as noted in the HPI Exam Narrative: General: No acute distress, alert and oriented per baseline HEENT: Atraumatic, normocephalic, mucous membranes moist CV: Regular rate and rhythm, S1, S2 Lungs: Scattered crackles, no wheeze, diminished at bases Abdomen: Soft, nontender, nondistended Extremities: Normal to inspection, B/L BKA Skin: No rashes noted, no lesions or wounds seen Psych: Euthymic, normal affect Objective Data Vital Signs Vital Signs: Vital Signs - 24 hr 10/06/22 12:15 10/06/22 12:16 10/06/22 12:31 Temperature Pulse Rate 65 65 64 Respiratory Rate 12 13 13 Blood Pressure 166/67 H 159/67 H Pulse Oximetry 100 100 100 Oxygen Delivery Oxygen Flow Rate 10/06/22 12:32 10/06/22 12:49 10/06/22 13:00 Temperature Pulse Rate 63 62 63 Respiratory Rate 12 16 Blood Pressure Pulse Oximetry 100 100 Oxygen Delivery Oxygen Flow Rate 10/06/22 13:02 10/06/22 14:43 10/06/22 14:44 Temperature 97.3 F L Pulse Rate 64 67 Respiratory Rate 12 20 Blood Pressure 166/64 H 190/58 H 172/61 H Pulse Oximetry 100 100 Oxygen Delivery Oxygen Flow Rate 10/06/22 17:20 10/06/22 17:15 10/06/22 17:15 Temperature 98.0 F Pulse Rate 69 71 Respiratory Rate 18 Blood Pressure 179/92 H 198/77 H Pulse Oximetry Oxygen Delivery Oxygen Flow Rate 2 10/06/22 17:40 10/06/22 18:00 10/06/22 18:20 Temperature Pulse Rate 80 66 65 Respiratory Rate Blood Pressure 179/96 H 194/89 H 187/78 H Pulse Oximetry Oxygen Delivery Oxygen Flow Rate 10/06/22 18:40 10/06/22 19:00 10/06/22 19:20 Temperature Pulse Rate 65 70
--- NOTE | 2022-10-07 12:17 | P.PNNP_ITS ---
Progress Note: A&P Assessment and Plan (1) End stage renal disease: Code(s): N18.6 - End stage renal disease Status: Chronic Assessment and Plan: * HD yesterday and continue T/T/S dialysis schedule while hospitalized * follow electrolytes, volume status, and clearance (2) Chest pain: Qualifiers: Chest pain type: unspecified Qualified Code(s): R07.9 - Chest pain, unspecified Code(s): R07.9 - Chest pain, unspecified Status: Acute Assessment and Plan: * suspect musculoskeletal etiology * troponins and EKG noted * reproducible pain on palpation of chest * related to cough (?) * continue supportive therapy (3) Chronic obstructive pulmonary disease: Code(s): J44.9 - Chronic obstructive pulmonary disease, unspecified Status: Acute Assessment and Plan: * exacerbation noted * continue supplemental oxygen * continue nebulizer treatment * follow respiratory status (4) Hypertension: Qualifiers: Hypertension type: renovascular hypertension Qualified Code(s): I15.0 - Renovascular hypertension Code(s): I10 - Essential (primary) hypertension Status: Chronic Assessment and Plan: * still elevated at this time (difficult to control at baseline) * resumed on home medications * will increase nifedipine to 60mg bid * PRN IV hydralazine (5) Anemia: Code(s): D64.9 - Anemia, unspecified Status: Chronic Assessment and Plan: * due to ESRD * at goal * Epogen with HD * follow trend of H/H (6) Insulin dependent type 2 diabetes mellitus: Code(s): E11.9 - Type 2 diabetes mellitus without complications; Z79.4 - skilled nursing (current) use of insulin Status: Chronic Assessment and Plan: * follow accuchecks * glycemic control per hospitalists Will continue to follow. Subjective Date/time seen: 10/07/22 12:17 Interval history: Follow-up for end stage renal disease on hemodialysis. Tolerated dialysis treatment yesterday afternoon/evening with almost 3.5L fluid removal; breathing/respiratory status seems to have significantly improved at this time; no other acute issues/events overnight or earlier this morning; no ap parent distress. Exam Narrative: General: WD/WN female in NAD Heart: normal S1 and S2; no rub Lungs: clear anteriorly; decreased at bases Abdomen: soft, nontender, nondistended, positive bowel sounds Extremities: no cyanosis or clubbing; no edema; s/p left BKA and right AKA Skin: warm and dry Objective Data Vital Signs Vital Signs: Vital Signs Temp Pulse Resp BP Pulse Ox O2 Del Method O2 Flow Rate 10/07/22 12:00 71 10/07/22 12:00 97.6 F 66 20 187/102 H 97 10/07/22 11:27 96 Room Air 10/07/22 08:00 67 10/07/22 08:00 97.4 F L 65 20 198/46 H 97 10/07/22 08:53 65 10/07/22 08:39 75 18 10/07/22 08:20 63 18 10/07/22 07:54 51 L 16 97 Nasal Cannula 1 10/07/22 04:00 97 Nasal Cannula 2 10/07/22 00:00 98 Nasal Cannula 2 10/07/22 06:00 63 10/07/22 04:00 65 10/07/22 02:00 65 10/07/22 00:00 65 10/06/22 22:00 67 10/06/22 20:00 72 10/06/22 20:00 98 Nasal Cannul
--- NOTE | 2022-10-07 12:17 | PM.PNNEP ---
Progress Note: A&P Assessment and Plan (1) End stage renal disease: Code(s): N18.6 - End stage renal disease Status: Chronic Assessment and Plan: HD yesterday and continue T/T/S dialysis schedule while hospitalized follow electrolytes, volume status, and clearance (2) Chest pain: Qualifiers: Chest pain type: unspecified Qualified Code(s): R07.9 - Chest pain, unspecified Code(s): R07.9 - Chest pain, unspecified Status: Acute Assessment and Plan: suspect musculoskeletal etiology troponins and EKG noted reproducible pain on palpation of chest related to cough (?) continue supportive therapy (3) Chronic obstructive pulmonary disease: Code(s): J44.9 - Chronic obstructive pulmonary disease, unspecified Status: Acute Assessment and Plan: exacerbation noted continue supplemental oxygen continue nebulizer treatment follow respiratory status (4) Hypertension: Qualifiers: Hypertension type: renovascular hypertension Qualified Code(s): I15.0 - Renovascular hypertension Code(s): I10 - Essential (primary) hypertension Status: Chronic Assessment and Plan: still elevated at this time (difficult to control at baseline) resumed on home medications will increase nifedipine to 60mg bid PRN IV hydralazine (5) Anemia: Code(s): D64.9 - Anemia, unspecified Status: Chronic Assessment and Plan: due to ESRD at goal Epogen with HD follow trend of H/H (6) Insulin dependent type 2 diabetes mellitus: Code(s): E11.9 - Type 2 diabetes mellitus without complications; Z79.4 - [facility] (current) use of insulin Status: Chronic Assessment and Plan: follow accuchecks glycemic control per hospitalists Will continue to follow. Subjective Date/time seen: 10/07/22 12:17 Interval history: Follow-up for end stage renal disease on hemodialysis. Tolerated dialysis treatment yesterday afternoon/evening with almost 3.5L fluid removal; breathing/respiratory status seems to have significantly improved at this time; no other acute issues/events overnight or earlier this morning; no apparent distress. Exam Narrative: General: WD/WN female in NAD Heart: normal S1 and S2; no rub Lungs: clear anteriorly; decreased at bases Abdomen: soft, nontender, nondistended, positive bowel sounds Extremities: no cyanosis or clubbing; no edema; s/p left BKA and right AKA Skin: warm and dry Objective Data Vital Signs Vital Signs: Vital Signs Temp Pulse Resp BP Pulse Ox O2 Del Method O2 Flow Rate 10/07/22 12:00 71 10/07/22 12:00 97.6 F 66 20 187/102 H 97 10/07/22 11:27 96 Room Air 10/07/22 08:00 67 10/07/22 08:00 97.4 F L 65 20 198/46 H 97 10/07/22 08:53 65 10/07/22 08:39 75 18 10/07/22 08:20 63 18 10/07/22 07:54 51 L 16 97 Nasal Cannula 1 10/07/22 04:00 97 Nasal Cannula 2 10/07/22 00:00 98 Nasal Cannula 2 10/07/22 06:00 63 10/07/22 04:00 65 10/07/22 02:00 65 10/07/22 00:00 65 10/06/22 22:00 67 10/06/22 20:00 72 10/06/22 20:00 98 Nasal Cannula 2 10/07/22 04:00 97.7 F 64 20 176/43 H 100 10/07/22 02:22 64 16 10/06/22 20:42 66 16 10/07/22 02:09 65 16 10/06/22 23:30 97.4 F L 68 20 168/49 H 99 10/06/22 22:13 66 10/06/22 20:00 97.1 F L 68 20 154/49 H 96 10/06/22 20:29 97 Nasal Cannula 2 10/06/22 20:28 68 16 10/06/22 18:00 72 10/06/22 16:00 69 10/06/22 20:11 98 F 69 16 147/90 H 10/06/22 20:00 67 130/58 L 10/06/22 19:40 67 127/65 10/06/22 19:20 67 141/68 H 10/06/22 19:00 70 173/92 H 10/06/22 18:40 65 176/82 H 10/06/22 18:20 65 187/78 H 10/06/22 18:00 66 194/89 H 10/06/22 17:40 80 17
[2022-10-07] MEDS: INSULIN ASPART (*BKC) 100 UNITS/ML SUB-Q (16:29)
[2022-10-07] MEDS: hydrALAZINE HCL 20 MG/ML VIAL 10 MG IV PUSH (16:31)
[2022-10-07 16:58] LABS: Glucose Point of Care 209 mg/dl (65-105)
[2022-10-07 20:25] LABS: Glucose Point of Care 173 mg/dl (65-105)
[2022-10-07] MEDS: INSULIN GLARGINE (*BKC) 100 UNITS/ML 32 UNITS SUB-Q (21:07)
[2022-10-07] MEDS: PRAVASTATIN SODIUM 20 MG TABLET 40 MG PO (21:08)
[2022-10-07] MEDS: NIFEdipine 30 MG TAB.ER.24 60 MG PO (21:08)
[2022-10-08] VITALS (9 sets, daily range): BP systolic 144–154; BP diastolic 47–49; PULSE 51–74; RESP 14–20; TEMP 36.4–36.5; O2SAT 91–99
[2022-10-08] MEDS: IPRATROPIUM BR 0.02% INH SOLN 0.5 MG/2.5 ML VIAL INHALATION ×2 (02:09→08:41)
[2022-10-08] MEDS: LEVALBUTEROL NEB 1.25 MG/3 ML 0.63 MG INHALATION ×2 (02:10→08:41)
[2022-10-08 07:44] LABS: Glucose Point of Care 89 mg/dl (65-105)
[2022-10-08] MEDS: APIXABAN 5 MG TABLET PO (09:14)
[2022-10-08] MEDS: carvediloL 25 MG TABLET PO (09:14)
[2022-10-08] MEDS: ASPIRIN 81 MG CHEWABLE TABLET PO (09:14)
[2022-10-08] MEDS: GABAPENTIN 400 MG CAPSULE PO ×2 (09:14→12:13)
[2022-10-08] MEDS: FUROSEMIDE INJ 40 MG/4 ML VIAL IV PUSH (09:15)
[2022-10-08] MEDS: AZITHROMYCIN 250 MG TABLET PO (09:15)
[2022-10-08] MEDS: LORATADINE 10 MG TABLET PO (09:15)
[2022-10-08] MEDS: NIFEdipine 30 MG TAB.ER.24 60 MG PO (09:15)
[2022-10-08] MEDS: SERTRALINE HCL 25 MG TABLET PO (09:16)
--- NOTE | 2022-10-08 10:15 | P.PNNP_ITS ---
Progress Note: A&P Assessment and Plan (1) End stage renal disease: Code(s): N18.6 - End stage renal disease Status: Chronic Assessment and Plan: * HD tomorrow and continue T/T/S dialysis schedule while hospitalized * follow electrolytes, volume status, and clearance (2) Chest pain: Qualifiers: Chest pain type: unspecified Qualified Code(s): R07.9 - Chest pain, unspecified Code(s): R07.9 - Chest pain, unspecified Status: Acute Assessment and Plan: * suspect musculoskeletal etiology * troponins and EKG noted * reproducible pain on palpation of chest * related to cough (?) * continue supportive therapy (3) Chronic obstructive pulmonary disease: Code(s): J44.9 - Chronic obstructive pulmonary disease, unspecified Status: Acute Assessment and Plan: * exacerbation noted - suspect precipitated by volume overload * off supplemental oxygen * continue nebulizer treatment * follow respiratory status (4) Hypertension: Qualifiers: Hypertension type: renovascular hypertension Qualified Code(s): I15.0 - Renovascular hypertension Code(s): I10 - Essential (primary) hypertension Status: Chronic Assessment and Plan: * better control at this time * resumed on home medications * now on nifedipine to 60mg bid * PRN IV hydralazine (5) Anemia: Code(s): D64.9 - Anemia, unspecified Status: Chronic Assessment and Plan: * due to ESRD * at goal * Epogen with HD * follow trend of H/H (6) Insulin dependent type 2 diabetes mellitus: Code(s): E11.9 - Type 2 diabetes mellitus without complications; Z79.4 - long-term (current) use of insulin Status: Chronic Assessment and Plan: * follow accuchecks * glycemic control per hospitalists Not opposed to discharge from renal perspective if otherwise medically stable. Will continue to follow. Subjective Date/time seen: 10/08/22 10:15 Interval history: Follow-up for end stage renal disease on hemodialysis. Breathing and respiratory status appear stable at the time of my vist; blood pressure seems to be doing better with recent medication changes as well; no other complaints voiced at this time. Exam Narrative: General: WD/WN female in NAD Heart: normal S1 and S2; no rub Lungs: clear anteriorly; decreased at bases Abdomen: soft, nontender, nondistended, positive bowel sounds Extremities: no cyanosis or clubbing; no edema; s/p left BKA and right AKA Skin: warm and intact Objective Data Vital Signs Vital Signs: Vital Signs Temp Pulse Resp BP Pulse Ox O2 Del Method 10/08/22 08:00 Room Air 10/08/22 10:00 59 L 10/08/22 08:00 72 10/08/22 08:58 62 16 10/08/22 08:45 91 Room Air 10/08/22 08:45 60 16 10/08/22 08:00 97.6 F 61 20 144/47 H 96 10/08/22 06:00 59 L 10/08/22 04:00 97.7 F 51 L 20 154/49 H 99 10/08/22 04:00 61 10/08/22 02:00 61 10/08/22 00:00 62 10/08/22 02:11 74 14 10/07/22 23:31 97.6 F 62 20 116/54 L 95 10/07/22 22:00 62 10/07/22 20:00 64 10/07/22 21:27 78 16 10/07/22 20:00 97.5 F L 66 20 130/47 L 93 05/0
--- NOTE | 2022-10-08 10:15 | PM.PNNEP ---
Progress Note: A&P Assessment and Plan (1) End stage renal disease: Code(s): N18.6 - End stage renal disease Status: Chronic Assessment and Plan: HD tomorrow and continue T/T/S dialysis schedule while hospitalized follow electrolytes, volume status, and clearance (2) Chest pain: Qualifiers: Chest pain type: unspecified Qualified Code(s): R07.9 - Chest pain, unspecified Code(s): R07.9 - Chest pain, unspecified Status: Acute Assessment and Plan: suspect musculoskeletal etiology troponins and EKG noted reproducible pain on palpation of chest related to cough (?) continue supportive therapy (3) Chronic obstructive pulmonary disease: Code(s): J44.9 - Chronic obstructive pulmonary disease, unspecified Status: Acute Assessment and Plan: exacerbation noted - suspect precipitated by volume overload off supplemental oxygen continue nebulizer treatment follow respiratory status (4) Hypertension: Qualifiers: Hypertension type: renovascular hypertension Qualified Code(s): I15.0 - Renovascular hypertension Code(s): I10 - Essential (primary) hypertension Status: Chronic Assessment and Plan: better control at this time resumed on home medications now on nifedipine to 60mg bid PRN IV hydralazine (5) Anemia: Code(s): D64.9 - Anemia, unspecified Status: Chronic Assessment and Plan: due to ESRD at goal Epogen with HD follow trend of H/H (6) Insulin dependent type 2 diabetes mellitus: Code(s): E11.9 - Type 2 diabetes mellitus without complications; Z79.4 - longterm (current) use of insulin Status: Chronic Assessment and Plan: follow accuchecks glycemic control per hospitalists Not opposed to discharge from renal perspective if otherwise medically stable. Will continue to follow. Subjective Date/time seen: 10/08/22 10:15 Interval history: Follow-up for end stage renal disease on hemodialysis. Breathing and respiratory status appear stable at the time of my vist; blood pressure seems to be doing better with recent medication changes as well; no other complaints voiced at this time. Exam Narrative: General: WD/WN female in NAD Heart: normal S1 and S2; no rub Lungs: clear anteriorly; decreased at bases Abdomen: soft, nontender, nondistended, positive bowel sounds Extremities: no cyanosis or clubbing; no edema; s/p left BKA and right AKA Skin: warm and intact Objective Data Vital Signs Vital Signs: Vital Signs Temp Pulse Resp BP Pulse Ox O2 Del Method 10/08/22 08:00 Room Air 10/08/22 10:00 59 L 10/08/22 08:00 72 10/08/22 08:58 62 16 10/08/22 08:45 91 Room Air 10/08/22 08:45 60 16 10/08/22 08:00 97.6 F 61 20 144/47 H 96 10/08/22 06:00 59 L 10/08/22 04:00 97.7 F 51 L 20 154/49 H 99 10/08/22 04:00 61 10/08/22 02:00 61 10/08/22 00:00 62 10/08/22 02:11 74 14 10/07/22 23:31 97.6 F 62 20 116/54 L 95 10/07/22 22:00 62 10/07/22 20:00 64 10/07/22 21:27 78 16 10/07/22 20:00 97.5 F L 66 20 130/47 L 93 10/07/22 18:00 69 10/07/22 16:30 98 F 66 22 H 167/40 H 91 10/07/22 16:00 65 10/07/22 16:29 66 10/07/22 16:28 167/65 H 10/07/22 16:00 95 Room Air 10/07/22 15:23 68 20 10/07/22 12:00 71 10/07/22 12:00 97.6 F 66 20 187/102 H 97 Intake/Output Intake/Output: Intake & Output 10/05/22 10/06/22 10/07/22 10/08/22 23:59 23:59 23:59 23:59 Intake Total 2130 200 Output Total 3441 1250 400 Balance -3441 880 -200 Meds/Results Medications: Active Medications Generic Name Dose Route Start Last Admin Trade Name Freq PRN Reason Stop Dose Admin Acetaminophen 650 mg 10/06/22 10:52 Acetaminophen 325 Mg Tablet PO Q4H PRN Mild Pain (1
--- NOTE | 2022-10-08 12:51 | PM.DS ---
DS: Admitting Diagnosis Discharge Date 10/08/22 Admitting Diagnosis sob DS: Summary Hospital Course Hospital Course: 71-year-old female with history of heart disease, diabetes, ESRD on hemodialysis as well as COPD is presenting with chest pain and shortness of breath thought to be secondary to volume overload, nephrology consulted for dialysis. The patient was dialyzed in all symptoms resolved. Nephrology did increase her nifedipine dosing. She was discharged in stable condition with close outpatient follow-up. Please see above and med rec for details. Time Spent with Patient Time attestation: Total time spent providing and/or coordinating discharge services: DS: Data Data Completed and Pending Labs on day of discharge: Labs from last 24 hours 10/08/22 10/07/22 10/07/22 07:24 20:02 16:21 POC Capillary Glucose 89 173 H 209 H Discharge Plan Discharge Attending physician on discharge: Karlene Cortes Consulting providers: Elio Pereira Discharging Clinician: Karlene Cortes Patient Disposition: Home, Self-Care Activity: as tolerated Diet: as tolerated Patient Instructions: Antibiotic Form, How to Stop Smoking (GEN) Stand Alone Forms: General Discharge Information Follow-up/Referrals: Maximiliano,MD Rut [Primary Care Provider] - Discharge Medications: New nifedipine [Procardia XL] 30 mg Tablet Extended Release 24hr 60 mg PO Q12H Qty: 120 0RF Continued carvedilol 25 mg Tablet 25 mg PO BID pravastatin 40 mg Tablet 40 mg PO HS Eliquis 5 mg Tablet 5 mg PO BID insulin degludec [Tresiba U-100 Insulin] 100 unit/mL Solution 32 unit SUBCUT HS albuterol sulfate 90 mcg/actuation HFA aerosol inhaler 2 puff inhalation QID PRN (Reason: shortness of breath or wheezing) Qty: 6.7 0RF pantoprazole 40 mg tablet,delayed release (DR/EC) 40 mg PO 1XD PRN (Reason: Heartburn) insulin aspart U-100 [Novolog FlexPen U-100 Insulin] 100 unit/mL (3 mL) insulin pen 8 unit SUBCUT TIDWMEAL Rx Instructions: 8 units + sliding scale sertraline 25 mg Tablet 25 mg PO QAM acetaminophen 500 mg Capsule 1,000 mg PO Q6H PRN (Reason: Pain) gabapentin 400 mg capsule 400 mg PO TID losartan 100 mg tablet 100 mg PO [id number] Rx Instructions: to be taken on non-dialysis days aspirin [Children's Aspirin] 81 mg Tablet,Chewable 81 mg PO DAILY@0800 Qty: 30 0RF cetirizine 10 mg tablet 10 mg PO 1XD Discontinued nifedipine 30 mg tablet extended release 30 mg PO Q12H azithromycin [Zithromax] 250 mg Tablet 250 mg PO DAILY 3 Days Qty: 3 0RF Date of admission: 10/06/22 10:52 Primary Care Provider: Maximiliano,Rut Admitting Provider: Karlene Cortes Attending physician on admission: Karlene Cortes Condition: Improved
== END 2022-10-08 15:15 | disposition home or self-care (01) ==
LOC: ANHED 08:16 → ANHIMU 13:54
PROVIDERS: Internal Medicine Nephrology; Physician Assistant; Admitting Provider Student in an Organized Health Care Education/Training Program; Emergency Provider Emergency Medicine; PCP Internal Medicine; Visit Provider Student in an Organized Health Care Education/Training Program
DX: R07.9 Chest pain, unspecified (principal); E11.22 Type 2 diabetes mellitus with diabetic chronic kidney disease; I12.0 Hypertensive chronic kidney disease with stage 5 chronic kidney disease or end stage renal disease; N18.6 End stage renal disease; Z99.2 Dependence on renal dialysis; E11.319 Type 2 diabetes mellitus with unspecified diabetic retinopathy without macular edema; D64.9 Anemia, unspecified; J44.9 Chronic obstructive pulmonary disease, unspecified; R06.02 Shortness of breath; E11.42 Type 2 diabetes mellitus with diabetic polyneuropathy; E11.21 Type 2 diabetes mellitus with diabetic nephropathy; E87.70 Fluid overload, unspecified; I25.10 Atherosclerotic heart disease of native coronary artery without angina pectoris; Z95.1 Presence of aortocoronary bypass graft; R94.31 Abnormal electrocardiogram [ECG] [EKG]; R91.8 Other nonspecific abnormal finding of lung field; I45.2 Bifascicular block; E78.5 Hyperlipidemia, unspecified; D69.6 Thrombocytopenia, unspecified; M86.9 Osteomyelitis, unspecified; F17.210 Nicotine dependence, cigarettes, uncomplicated; Z79.01 Long term (current) use of anticoagulants; Z79.4 Long term (current) use of insulin; Z79.82 Long term (current) use of aspirin; Z79.1 Long term (current) use of non-steroidal anti-inflammatories (NSAID); Z79.899 Other long term (current) drug therapy
CPT/HCPCS: 36415; 71045; 80048; 80053; 82948; 83735; 83880; 84484; 85025; 85027; 85610; 85730; 86706; 87340; 93005; 94640; 96374; 96375; 99285; A9270; G0257; G0378; J0360; J1644; J1815; J1940; J7030; Q5105

== ENCOUNTER 2022-11-12 02:39 | Inpatient (IN) | payer MEDICARE, OTHER, SELFPAY ==
[2022-11-12] VITALS (56 sets, daily range): BP systolic 91–189; BP diastolic 43–86; PULSE 19–86; RESP 13–20; TEMP 36–37; O2SAT 94–100; BMI 47.4
--- NOTE | 2022-11-12 | ECHO_ITS ---
Patient Info Name: Tawana Prado Age: 72 years : 1950 Gender: Female Ht: 52 in Wt: 189 lbs BSA: 1.84 m2 HR: 75 bpm BP: 136 / 45 mmHg Heart Rhythm: Sinus Rhythm Technical Quality: Fair Exam Date: 11/12/2022 3:28 PM Exam Location: [facility] Exam Room: 214 Patient Status: Inpatient Admit Date: 11/12/2022 Staff Ordering Physician: Brad Mendoza MD Engineer System Administrator: Meche Garduno RDCS Attending Provider: Lisa Enriquez DO Exam Type: CA echo dop color flow w con Study Info Indications - chest pain - on hemo dialysis cad cabg bilateral leg amputee Complete two-dimensional, color flow and Doppler transthoracic echocardiogram is performed. Contrast/Agitated Saline Contrast/Ag. Saline: Definity Amount: 2.00 ml Administered By: Meche Garduno [facility] Existing IV Access: Yes IV Access Condition: patent with no signs of infiltration Summary 1. Complete two-dimensional, color flow and Doppler transthoracic echocardiogram is performed. 2. Technically difficult study with limited views. Definity contrast administered. 3. Left ventricular chamber dimension is normal. 4. Left ventricular systolic function is normal, estimated at 60-65%. 5. There is moderately increased left ventricular wall thickness. 6. The left ventricular diastolic function is grade I diastolic dysfunction. 7. There is no aortic valve stenosis. 8. There is trace mitral valve regurgitation. 9. There is trace tricuspid valve regurgitation. 10. No pulmonary hypertension, estimated pulmonary arterial systolic pressure is 23 mmHg. Left Ventricle Left ventricular chamber dimension is normal. Left ventricular systolic function is normal, estimated at 60-65%. There is moderately increased left ventricular wall thickness. The left ventricular diastolic function is grade I diastolic dysfunction. Technically difficult study with limited views. Definity contrast administered. Right Ventricle Right ventricular chamber dimension is normal. Right ventricular systolic function is normal. Left Atria Left atrial chamber dimension is mildly enlarged. Right Atria Right atrial chamber dimension is normal. Aortic Valve The aortic valve is probable trileaflet. There is mild aortic valve sclerosis. There is no aortic valve stenosis. There is trace aortic valve regurgitation. Pulmonic Valve The pulmonic valve is not well visualized. Mitral Valve The mitral valve has thickened leaflets. There is trace mitral valve regurgitation. The mitral valve annulus is moderately calcified. Tricuspid Valve The tricuspid valve leaflets are not well visualized. There is trace tricuspid valve regurgitation. No pulmonary hypertension, estimated pulmonary arterial systolic pressure is 23 mmHg. Pericardium/Pleural The pericardium appears epicardial fat pad. There is trivial pericardial effusion. Aorta The aortic root size at the sinus of Valsalva is normal. There is mild-moderate aortic atherosclerosis. Left Ventricular Outflow Tract Name Value Normal LVOT 2D LVOT Diameter 2.04 cm LVOT Doppler LVOT Peak Gradient 4 mmHg LVOT Mean Gradient
--- NOTE | ~2022-11-12 | XR_ITS ---
EXAMINATION: XR chest 1V portable INDICATION: Shortness of breath TECHNIQUE: Portable AP chest at 0400 hours COMPARISON: 10/06/2022 FINDINGS: A right internal jugular central venous catheter ends with its tip in the proximal right at rium. Cardiomegaly is noted. There is a mild diffuse interstitial pattern. No pleural effusion or pne umothorax. IMPRESSION: 1. Cardiomegaly with mild pulmonary edema. Reviewed, dictated and finalized at location A.
--- NOTE | ~2022-11-12 | US_ITS ---
EXAMINATION: US abdomen complete DATE: 11/12/2022 19:14 INDICATION: thrombocytopenia - assess for hepatosplemeg TECHNIQUE: Multiple grayscale and Doppler ultrasound images of the abdomen were obtained. COMPARISON: 10/25/2021, CT abdomen and pelvis. FINDINGS: The visualized portions of the pancreas are normal. The liver is small to normal size, with heterogeneous parenchyma. Nodular liver surface. Normal hepatopetal flow in the main portal vein. Th e gallbladder is normal size with no abnormal wall thickening or pericholecystic fluid. Gallstones ar e present. The common bile duct measures 5 mm. There was no sonographic Woodson sign. The visualized p ortions of the aorta and inferior vena cava are normal. The right kidney measures 10.1 x 3.8 x 4.5 cm. The left kidney measures 10.0 x 5.0 x 4.2 cm. The kidn eys demonstrate normal parenchymal echogenicity. Bilateral cortical thinning. There is no hydronephro sis. The spleen is normal in appearance and measures 12 cm. IMPRESSION: Cirrhosis. Cholelithiasis without sonographic evidence of cholecystitis. Reviewed, dictated and finalized at location K.
--- NOTE | 2022-11-12 02:52 | ECG_ITS ---
Measurements Intervals [place] Rate: 77 P: 52 NH: 172 QRS: -86 QRSD: 158 T: 61 QT: 438 QTc: 496 Interpretive Statements SINUS RHYTHM RIGHT BUNDLE BRANCH BLOCK [120+ ms QRS DURATION, UPRIGHT V1, 40+ ms S IN I/aVL/V4/V5/V6] LEFT ANTERIOR FASCICULAR BLOCK [QRS AXIS <= -45, QR IN I, RS IN II] MODERATE T-WAVE ABNORMALITY, CONSIDER LATERAL ISCHEMIA [-0.1+ mV T WAVE IN I/aVL/V5/V6] ABNORMAL ECG COMPARED TO ECG 10/06/2022 08:09:16 NO SIGNIFICANT CHANGES Electronically Signed On 11-12-2022 11:27:01 CDT by Gilbert Hurley M.D.
[2022-11-12 03:12] LABS: Basophils Percent Auto 0.6 % (0.2-1.2); Eosinophils Absolute Auto 0.2 K/mm3 (0-0.3); Eosinophils Percent Auto 4.4 % (0-4.4); Hematocrit 34.6 % (37.0-47.0); Hemoglobin 11.1 g/dL (12.0-15.0); Immature Granulocyte Absolute 0.02 K/mm3 (0.00-0.031); Immature Granulocyte Percent A 0.4 % (0-0.5); Immature Platelet Fraction Pct 11.4 % (0.9-11.2); Lymphocytes Absolute Auto 1.12 K/mm3 (0.9-3.2); Lymphocytes Percent Auto 21.3 % (18.3-44.2); Mean Corpuscular HGB Conc 32.1 g/dl (32-36); Mean Corpuscular Hemoglobin 31.8 pg (26-34); Mean Corpuscular Volume 99.1 fl (80-100); Monocytes Absolute Auto 0.4 K/mm3 (0.1-0.6); Monocytes Percent Auto 6.9 % (2.6-8.5); Neutrophils Absolute Auto 3.5 K/mm3 (1.3-6.7); Neutrophils Percent Auto 66.4 % (45.5-73.1); Platelet Count Result 87 k/mm3 (150-375); Red Blood Count 3.49 M/mm3 (4.2-5.4); Red Cell Distribution Width 13.1 % (11.5-14.5); White Blood Count 5.3 K/mm3 (4.5-10.0)
[2022-11-12 03:23] LABS: Alanine Aminotransferase 16 U/L (6-35); Albumin Level 3.7 g/dL (3.5-5.1); Alkaline Phosphatase 269 U/L (38-126); Anion Gap 7 mmol/L (8-16); Aspartate Amino Transferase 22 U/L (14-36); Bilirubin,Total 0.4 mg/dL (0.2-1.3); Blood Urea Nitrogen 40 mg/dL (7-17); Calcium 7.6 mg/dL (8.4-10.2); Carbon Dioxide 30 mmol/L (22-30); Chloride 97 mmol/L (98-107); Estimated Glomerular Filt Rate 7; Glucose 496 mg/dL (65-110); Lactic Acid Reflex 1.3 mmol/L (0.7-2.0); Potassium 4.5 mmol/L (3.4-5.0); Sodium 134 mmol/L (137-145)
[2022-11-12 03:25] LABS: INR 1.1; Prothrombin Time 14.4 Seconds (11.1-14.7)
[2022-11-12 03:26] LABS: Partial Thromboplastin Time 30.3 SECONDS (22.3-36.8)
[2022-11-12 03:34] LABS: NT Pro B Type Natriuretic Pept > 30000 pg/mL (19.9-100); Troponin I 0.031 ng/mL (0.000-0.034)
[2022-11-12 03:47] LABS: Influenza A QL RT-PCR Negative (Negative); Influenza B QL RT-PCR Negative (Negative); SARS-CoV-2 RNA PCR Negative (Negative)
--- NOTE | 2022-11-12 04:10 | ED.GENADULT ---
HPI - General Adult General Chief complaint: Shortness of Breath/Dyspnea Stated complaint: Respiratory distress Time Seen by Provider: 11/12/22 02:53 History of Present Illness HPI narrative: Patient 72-year-old female who presents the emergency department with chief complaint of shortness of breath. Patient has prior history of congestive heart failure and end-stage renal disease and on dialysis Saturday the patient reports that she went to her normal run of dialysis on Saturday and reports that she started having shortness of breath this evening. The patient has history of a below-knee amputation on the left and an above-knee amputation on the right patient reports that this feels similar to whenever she is been fluid overloaded. When EMS arrived the patient sats she was hypoxic and was extremely tachypneic the patient was started on CPAP prior to arrival in the emergency department. Related Data Home Medications Medication Instructions Recorded Confirmed apixaban 5 mg tablet (Eliquis) 5 mg PO BID 11/03/19 10/06/22 carvedilol 25 mg tablet 25 mg PO BID 11/03/19 10/06/22 insulin degludec 100 unit/mL 32 unit subcut HS 11/03/19 10/06/22 subcutaneous solution (Tresiba U-100 Insulin) pravastatin 40 mg tablet 40 mg PO HS 11/03/19 10/06/22 acetaminophen 500 mg capsule 1,000 mg PO Q6H PRN Pain 02/11/20 10/06/22 sertraline 25 mg tablet 25 mg PO QAM 02/11/20 10/06/22 gabapentin 400 mg capsule 400 mg PO TID 10/09/21 10/06/22 losartan 100 mg tablet 100 mg PO [id number] 10/09/21 10/06/22 cetirizine 10 mg tablet 10 mg PO 1XD 02/06/22 10/06/22 insulin aspart U-100 100 unit/mL 8 unit subcut TIDWMEAL 02/28/22 10/06/22 (3 mL) subcutaneous pen (Novolog FlexPen U-100 Insulin aspart) pantoprazole 40 mg tablet,delayed 40 mg PO 1XD PRN Heartburn 02/28/22 10/06/22 release Allergies Allergy/AdvReac Type Severity Reaction Status Date / Time No Known Allergies Allergy Verified 10/06/22 15:23 Review of Systems Review of Systems: A 10 system review of systems was completed on the patient and is negative except for what is stated in the HPI. Nursing and ancillary documentation was reviewed. [facility] Past Medical History Medical History Arterial vascular disease Chronic anemia Coronary artery disease Digital arterial occlusive disease End-stage renal disease on hemodialysis Saturday, , Saturday. 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 Hemoglobin A1c was 6.8% in February 2020. Osteomyelitis Renal osteodystrophy Thrombocytopenia Surgical History Surgical History Amputation of right forefoot Right 4th and 5th ray amputation in 04/2017. Right foot transmetatarsal amputation with partial fasciotomy due to wet gangrene, osteomyelitis, and necrotizing fasciitis in May 2017. 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 History of below-knee amputation of both lower extremities Left kgclx-plq-mlzz amputation in 2017. Right wfrfg-kfz-evtg amputation in 02/2020. History of bilateral cataract extraction History of carpal tunnel release History of four vessel coronary artery bypass graft (04/2019) History of right above knee amputation (05/12/20) History of right below knee amputation (10/06/22) History of spinal fusion History of surgical procedure on eye proper using laser Related to diabetic retinopathy. History of vascular surgery Right lower extremity stents in March 2017. Left lower extremity stent in 2014. Family History Family History Mother Diabetes mellitus Father Lung cancer Social History Social History (Reviewed 11/12/22 @ 04
[2022-11-12 04:51] LABS: Procalcitonin 0.2 ng/mL
[2022-11-12] MEDS: INSULIN ASPART (*BKC) 100 UNITS/ML SUB-Q (05:22)
--- NOTE | 2022-11-12 05:47 | PC.NURSE ---
ERP stated pt transport to IMU on 4L instead of BIPAP. Receiving nurse Katie at IMU is aware, EDP respiratory also made aware. Pt to continue BIPAP once settled in at IMU.
--- NOTE | 2022-11-12 05:49 | PC.NURSE ---
This patient, Tawana Prado, was admitted to IMU Room 214-01. Patient/family oriented to hospital policies and general routines including ID bracelet, bed and alarms, visiting hours, pain management, procedures, bathroom and other care routines, personal items, smoking policy, room service/diet, and visiting hours. Information on how to activate the Rapid Response Team has been discussed. Patient/Family are encouraged to report perceived risks to care and to ask questions if they do not understand what they are told or what they should do.
[2022-11-12 07:02] LABS: Troponin I 0.276 ng/mL (0.000-0.034)
--- NOTE | 2022-11-12 07:41 | PM.CNNEP ---
Assessment and Plan Assessment and plan (1) End-stage renal disease on hemodialysis: Code(s): N18.6 - End stage renal disease; Z99.2 - Dependence on renal dialysis Status: Acute Assessment and Plan: The patient has end-stage renal disease. She is due for dialysis tomorrow but she is volume overloaded today by chest x-ray. It is unclear why she is volume overloaded now since she just had treatment on Saturday. She says that she did not get all the fluid taken off on Saturday. Her blood pressure is a bit high and the chest x-ray does show some fluid so volume overload may be why she short of breath. Her potassium is okay. Will dialyze her today on a 3K bath and get fluid off. (2) Shortness of breath: Code(s): R06.02 - Shortness of breath Status: Acute Assessment and Plan: The patient has shortness of breath. She did have some chest pain last night. She does not have any more today. Most likely the patient shortness of breath is due to volume overload. It is possible that this may be a cardiac issue because she had the chest pain and she does have known coronary artery disease and her troponin did rise a bit. Will repeat the EKG and get another troponin level to see if we need to get Cardiology a involved. I will add a nitrate until we figure this out. (3) Hypertension: Qualifiers: Hypertension type: renovascular hypertension Qualified Code(s): I15.0 - Renovascular hypertension Code(s): I10 - Essential (primary) hypertension Status: Chronic Assessment and Plan: Blood pressure is mildly high. Will take some fluid off in dialysis and see however blood pressure is afterwards before adjusting medications. The nitrate may help bring the blood pressure down a bit as well. (4) Chronic anemia: Code(s): D64.9 - Anemia, unspecified Status: Acute Assessment and Plan: Hemoglobin is low but above target so will not give EPO today. (5) Insulin dependent type 2 diabetes mellitus: Code(s): E11.9 - Type 2 diabetes mellitus without complications; Z79.4 - lab rn (current) use of insulin Status: Chronic Assessment and Plan: Hospitalists to manage this. (6) Renal osteodystrophy: Code(s): N25.0 - Renal osteodystrophy Status: Acute Assessment and Plan: Will check a renal panel in the morning (7) Coronary artery disease: Code(s): I25.10 - Atherosclerotic heart disease of [place] coronary artery without angina pectoris Status: Acute Assessment and Plan: Will check troponins and another EKG (8) Chronic obstructive pulmonary disease: Code(s): J44.9 - Chronic obstructive pulmonary disease, unspecified Status: Acute Assessment and Plan: She continues to smoke 5-6 cigarettes per day. History of Present Illness Reason for Consult Consult date: 11/12/22 Chief Complaint Chief complaint: Respiratory Failure/End Stage Renal Disease on Marcia History of Present Illness Narrative: Tawana is a very pleasant 72-year-old lady who has multiple medical problems including end-stage renal disease on dialysis Tuesdays and Saturdays, congestive heart failure, coronary disease, hyperlipidemia, hypertension, anemia, renal osteodystrophy, diabetes, peripheral vascular disease, thrombocytopenia, history of osteomyelitis. Patient gets dialysis at [facility] under the care of Dr. Blackwood. She went to dialysis on Saturday. She does not know if she had a lot of fluid on but they did not take all of her fluid off she says. She did not have cramping or low blood pressure. The rest of Saturday and Saturday morning she did fine but then last night she woke up with chest pain and shortness of breath. She came to the emergency room. She appeared volume overloaded according to the emergency room doctor. Troponin was 0.031 and then a few hours later was 0.276. EKG showed sinus rhythm, right bundle branch block, l
[2022-11-12 07:53] LABS: Glucose Point of Care 411 mg/dl (65-105)
--- NOTE | 2022-11-12 07:53 | ECG_ITS ---
Measurements Intervals [place] Rate: 67 P: 42 [place]: 189 QRS: -84 QRSD: 157 T: 211 QT: 405 QTc: 428 Interpretive Statements SINUS RHYTHM WITH OCCASIONAL SUPRAVENTRICULAR PREMATURE COMPLEXES RIGHT BUNDLE BRANCH BLOCK LEFT ANTERIOR FASCICULAR BLOCK MODERATE T-WAVE ABNORMALITY, CONSIDER LATERAL ISCHEMIA ABNORMAL ECG COMPARED TO ECG 11/12/2022 02:49:59 NO SIGNIFICANT CHANGES Electronically Signed On 11-12-2022 17:02:54 CDT by Shaheen Patel M.D.
--- NOTE | 2022-11-12 08:15 | PM.IMHP ---
H&P: HPI History of Present Illness Date/Time: 11/12/22 08:15 Chief Complaint: Shortness of breath Narrative: 72yo female with ESRD on HD T//Sat, DM, CAD and HTN here for shortness of breath. She is compliant with HD and last dialysis was 11/10. She developed shortness of breath overnight hours and contracted EMS. She is somnolent and confused but able to provide the following history. She is not sure how much fluid was removed or if she was down to her dry weight. She felt well after HD on 11/10. She is not on oxygen or NIV at home. No hx of ALANNA. She felt well yesterday except for complaints of lower suprapubic abdominal pain with dysruia. No heamturia. Having normal BMs without diarrhea, constipation, melena or hematochezia. She is compliant with her medications. She does not drink excessive amounts of fluids at home. Not been hospitalized since being here one month ago. Patient, while laying flat in bed this morning, developed acute onset of shortness of breath. She denies fever, chills, cough or palpitations. Was having chest pain (01/10) lower substernal area. No radiation to the pain. No diaphoresis or nausea. She had CABG in 2018 and denies stress test or LHC since that time (however chart review shows normal Lexiscan stress test Feb 2022). EMS was called. No EMS report but per the notes, patient noted to be hypoxic and tachypneic so CPAP started. Patient was brought to the ED for evaluation. It the ED, vital signs were normal. RR was 18 and states 98% on room air (but suspect she was on BiPAP at this time). WBC was normal, Hgb 11 and plt count low at 87K (but has hx of low platelet counts). ABG attempted but patient refused. Glucose was 496 with BUN 40 and Cr 6. Potassium was normal and no acidosis. Troponin 0.031 --> 0.276. BNP >30K. Procalcitonin 0.2. Influenza and COVID negative. CXR showing CMG with pulmonary edema. BCx collected. EKG showing normal sinus, Rt BBB, LAFB but no change from prior. She was given 5U SQ insulin and admitted for further care to IMU on BiPAP. She is being taken for HD this morning. Review of Systems Review of Systems: All systems reviewed & are unremarkable except as noted in HPI and below PMFSH Past Medical History Medical History Arterial vascular disease Chronic anemia Coronary artery disease Digital arterial occlusive disease End-stage renal disease on hemodialysis Saturday, , Saturday. 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 Hemoglobin A1c was 6.8% in February 2020. Osteomyelitis Renal osteodystrophy Thrombocytopenia Surgical History Surgical History Amputation of right forefoot Right 4th and 5th ray amputation in 04/2017. Right foot transmetatarsal amputation with partial fasciotomy due to wet gangrene, osteomyelitis, and necrotizing fasciitis in May 2017. 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 History of below-knee amputation of both lower extremities Left gvdeg-dtl-[id number] amputation in 2017. Right wxccb-ssg-hcbn amputation in 02/2020. History of bilateral cataract extraction History of carpal tunnel release History of four vessel coronary artery bypass graft (04/2019) History of right above knee amputation (05/12/20) History of right below knee amputation (10/06/22) History of spinal fusion History of surgical procedure on eye proper using laser Related to diabetic retinopathy. History of vascular surgery Right lower extremity stents in March 2017. Left lower extremity stent in 2014. Family History Family History Mother Diabetes mellitus Father Lung cancer Sibling Diabetes mellitus Social History Social History (Up
[2022-11-12] MEDS: NITROGLYCERIN 0.2 MG/HR PATCH 1 PATCH TRANSDERM (08:32)
[2022-11-12 10:08] LABS: Troponin I 0.655 ng/mL (0.000-0.034)
[2022-11-12 11:16] LABS: Hemoglobin A1C 6.5 % (<5.7)
--- NOTE | 2022-11-12 11:35 | PM.CNCAR ---
Assessment and Plan Assessment and plan (1) Elevated troponin: Code(s): R77.8 - Other specified abnormalities of plasma proteins <BRENDON Riley - Last Filed: 11/12/22 15:46> Status: Acute <Alisa ABRENDON Thomas - Last Filed: 11/12/22 15:46> Assessment and Plan: Troponin levels are elevated at 0.276, 0.655, 1.190. Her EKG showed sinus rhythm with RBBB, diffuse T wave inversions, minimal ST elevation in aVR, V1. She is denying any chest pain at this time. Her EKG changes and elevated troponin levels are likely secondary to hypoxia and CHF (BNP >30,000). She did have a lexiscan in February of 2022 that did not show any ischemia. Unlikely she would develop any obstructive CAD in that period of time. Will repeat EKG now and check another troponin level this evening. Check echo for WMA, LV systolic function. Further recommendations will be forthcoming based on results of the echo, but in the absence of chest pain no further ischemic workup is being recommended at this time. <BRENDON Riley - Last Filed: 11/12/22 15:46> (2) Hypertension: Qualifiers: Hypertension type: renovascular hypertension Qualified Code(s): I15.0 - Renovascular hypertension <BRENDON Riley - Last Filed: 11/12/22 15:46> Code(s): I10 - Essential (primary) hypertension <BRENDON Riley - Last Filed: 11/12/22 15:46> Status: Chronic <BRENDON Riley - Last Filed: 11/12/22 15:46> Assessment and Plan: BP reasonably controlled at present. <BRENDON Riley - Last Filed: 11/12/22 15:46> (3) Coronary artery disease: Code(s): I25.10 - Atherosclerotic heart disease of [place] coronary artery without angina pectoris <BRENDON Riley - Last Filed: 11/12/22 15:46> Status: Acute <BRENDON Riley - Last Filed: 11/12/22 15:46> Assessment and Plan: S/p CABG in 2019. Continue ASA, pravastatin, coreg. <BRENDON Riley - Last Filed: 11/12/22 15:46> (4) Shortness of breath: Code(s): R06.02 - Shortness of breath <BRENDON Riley - Last Filed: 11/12/22 15:46> Status: Acute <BRENDON Riley - Last Filed: 11/12/22 15:46> Assessment and Plan: Resolved. Now breathing comfortably on room air. ? Secondary to CHF, mild pulmonary edema on CXR in ED. Volume removal with dialysis. <BRENDON Riley - Last Filed: 11/12/22 15:46> Assessment and Plan: Attending addendum: I agree with the above documentation and plan of care as outlined. <Shaheen Patel MD - Last Filed: 11/12/22 16:58> History of Present Illness History of Present Illness Consult date/time: 11/12/22 11:35 <BRENDON Riley - Last Filed: 11/12/22 15:46> Requesting physician: Brad Mendoza MD <BRENDON Riley - Last Filed: 11/12/22 15:46> Consult reason: chest pain <BRENDON Riley - Last Filed: 11/12/22 15:46> Reason For Visit: Respiratory Failure/End Stage Renal Disease on Marcia <BRENDON Riley - Last Filed: 11/12/22 15:46> Narrative: Tawana Prado is a 72 year old female with end stage renal disease on dialysis, type 2 diabetes mellitus, coronary artery disease status post bypass grafting in 2019. This is a patient who follows at [facility] with Dr. Blackwood. She enters the hospital because of shortness of breath. At the time of my evaluation she is lethargic and does not stay awake for long enough to answer many questions. She does confirm that significant shortness of breath was the reason she came to the hospital. She denies having any chest pain at the time of my visit with her. Unable to give me any other history or details surrounding any symptoms she has been having lately. <BRENDON Riley - Last Filed: 11/12/22 15:46> Review of Systems Review of Systems: ROS unobtainable: Yes unobtainable due to medical condition <BRENDON Riley - [place]
[2022-11-12 13:26] LABS: Glucose Point of Care 162 mg/dl (65-105)
[2022-11-12 13:30] LABS: Hepatitis B Surface Antigen Negative (Negative)
[2022-11-12] MEDS: APIXABAN 5 MG TABLET PO ×2 (13:41→20:23)
[2022-11-12] MEDS: SERTRALINE HCL 25 MG TABLET PO (13:41)
[2022-11-12] MEDS: GABAPENTIN 400 MG CAPSULE PO (13:42)
[2022-11-12] MEDS: ASPIRIN 81 MG CHEWABLE TABLET PO (13:45)
[2022-11-12] MEDS: NIFEdipine 30 MG TAB.ER.24 PO ×2 (13:46→20:24)
[2022-11-12] MEDS: carvediloL 25 MG TABLET PO ×2 (13:47→20:23)
[2022-11-12 15:41] LABS: Hepatitis B Surface Anti Res Indeterminate
--- NOTE | 2022-11-12 15:48 | ECG_ITS ---
Measurements Intervals [place] Rate: 71 P: 46 [place]: 169 QRS: -81 QRSD: 154 T: 110 QT: 457 QTc: 498 Interpretive Statements SINUS RHYTHM WITH OCCASIONAL SUPRAVENTRICULAR PREMATURE COMPLEXES MARKED LEFT AXIS DEVIATION [QRS AXIS < -30] RIGHT BUNDLE BRANCH BLOCK MODERATE T-WAVE ABNORMALITY, CONSIDER LATERAL ISCHEMIA ABNORMAL ECG COMPARED TO ECG 11/12/2022 08:22:20 LEFT-AXIS DEVIATION NOW PRESENT Electronically Signed On 11-12-2022 17:20:13 CDT by Shaheen Patel M.D.
[2022-11-12] MEDS: PERFLUTREN LIPID MICROSPHERES 1.5 ML VIAL DILUTED TO 10 ML TOTAL VOLUME IV PUSH (15:50)
[2022-11-12 16:36] LABS: Glucose Point of Care 182 mg/dl (65-105)
[2022-11-12] MEDS: PRAVASTATIN SODIUM 20 MG TABLET 40 MG PO (20:23)
[2022-11-12 20:31] LABS: Glucose Point of Care 212 mg/dl (65-105)
[2022-11-12] MEDS: INSULIN GLARGINE (*BKC) 100 UNITS/ML 31 UNITS SUB-Q (20:33)
[2022-11-13] VITALS (26 sets, daily range): BP systolic 97–153; BP diastolic 41–84; PULSE 58–84; RESP 18–20; TEMP 36–36.8; O2SAT 93–99
[2022-11-13 05:00] LABS: Basophils Percent Auto 0.6 % (0.2-1.2); Eosinophils Absolute Auto 0.2 K/mm3 (0-0.3); Eosinophils Percent Auto 4.4 % (0-4.4); Hematocrit 32.7 % (37.0-47.0); Hemoglobin 10.4 g/dL (12.0-15.0); Immature Granulocyte Absolute 0.02 K/mm3 (0.00-0.031); Immature Granulocyte Percent A 0.4 % (0-0.5); Lymphocytes Absolute Auto 1.45 K/mm3 (0.9-3.2); Lymphocytes Percent Auto 26.9 % (18.3-44.2); Mean Corpuscular HGB Conc 31.8 g/dl (32-36); Mean Corpuscular Hemoglobin 31.6 pg (26-34); Mean Corpuscular Volume 99.4 fl (80-100); Mean Platelet Volume 12.7 fl (7.4-10.4); Monocytes Absolute Auto 0.4 K/mm3 (0.1-0.6); Monocytes Percent Auto 7.8 % (2.6-8.5); Neutrophils Absolute Auto 3.2 K/mm3 (1.3-6.7); Neutrophils Percent Auto 59.9 % (45.5-73.1); Platelet Count Result 104 k/mm3 (150-375); Red Blood Count 3.29 M/mm3 (4.2-5.4); Red Cell Distribution Width 13.2 % (11.5-14.5); White Blood Count 5.4 K/mm3 (4.5-10.0)
[2022-11-13 05:23] LABS: Alanine Aminotransferase 15 U/L (6-35); Albumin Level 3.2 g/dL (3.5-5.1); Alkaline Phosphatase 81 U/L (38-126); Anion Gap 2 mmol/L (8-16); Aspartate Amino Transferase 22 U/L (14-36); Bilirubin,Total 0.4 mg/dL (0.2-1.3); Blood Urea Nitrogen 24 mg/dL (7-17); Calcium 7.5 mg/dL (8.4-10.2); Carbon Dioxide 36 mmol/L (22-30); Chloride 97 mmol/L (98-107); Estimated Glomerular Filt Rate 9; Glucose 211 mg/dL (65-110); Magnesium 2.1 mg/dL (1.6-2.3); Phosphorus 4.1 mg/dL (2.5-4.5); Potassium 4.3 mmol/L (3.4-5.0); Sodium 135 mmol/L (137-145)
[2022-11-13 07:38] LABS: Ammonia < 9 umol/L (9-30)
[2022-11-13 07:39] LABS: Glucose Point of Care 220 mg/dl (65-105)
[2022-11-13] MEDS: ASPIRIN 81 MG CHEWABLE TABLET PO (08:22)
[2022-11-13] MEDS: carvediloL 25 MG TABLET PO (08:22)
[2022-11-13] MEDS: GABAPENTIN 400 MG CAPSULE PO ×3 (08:22→17:11)
[2022-11-13] MEDS: APIXABAN 5 MG TABLET PO (08:22)
[2022-11-13] MEDS: SERTRALINE HCL 25 MG TABLET PO (08:22)
[2022-11-13] MEDS: NIFEdipine 30 MG TAB.ER.24 PO (08:23)
[2022-11-13] MEDS: NITROGLYCERIN 0.2 MG/HR PATCH 1 PATCH TRANSDERM (08:23)
[2022-11-13] MEDS: INSULIN ASPART (*BKC) 100 UNITS/ML 6 UNITS SUB-Q ×3 (08:23→17:12)
[2022-11-13] MEDS: INSULIN ASPART (*BKC) 100 UNITS/ML SUB-Q (08:24)
[2022-11-13] MEDS: PANTOPRAZOLE 40 MG TABLET PO (14:21)
[2022-11-13 14:29] LABS: Glucose Point of Care 142 mg/dl (65-105)
--- NOTE | 2022-11-13 15:48 | PM.PNCARD ---
Progress Note: A&P Assessment and Plan (1) Elevated troponin: Code(s): R77.8 - Other specified abnormalities of plasma proteins <BRENDON Riley - Last Filed: 11/13/22 16:12> Status: Acute <BRENDON Riley - Last Filed: 11/13/22 16:12> Assessment and Plan: Troponin levels elevated at 0.276, 0.655, 1.190. Her EKG showed sinus rhythm with RBBB, diffuse T wave inversions, minimal ST elevation in aVR, V1. No chest pain. Her EKG changes and elevated troponin levels are likely secondary to hypoxia and CHF (BNP >30,000). She did have a lexiscan in February of 2022 that did not show any ischemia. Unlikely she would develop any obstructive CAD in that period of time. Repeat EKG with improvement of t wave abnormalities, similar to older EKGs. Echo showed normal LVSF, with EF 60-65%, grade I diastolic dysfunction, no RWMA. She continues to be free from chest pain. Will not pursue any ischemic workup at this time. She should follow up with her vp sales, Dr. Blackwood after discharge. Cardiology will sign off. Please call with questions. <BRENDON Riley - Last Filed: 11/13/22 16:12> (2) Hypertension: Qualifiers: Hypertension type: renovascular hypertension Qualified Code(s): I15.0 - Renovascular hypertension <BRENDON Riley - Last Filed: 11/13/22 16:12> Code(s): I10 - Essential (primary) hypertension <BRENDON Riley - Last Filed: 11/13/22 16:12> Status: Chronic <BRENDON Riley - Last Filed: 11/13/22 16:12> Assessment and Plan: BP reasonably controlled at present. <BRENDON Riley - Last Filed: 11/13/22 16:12> (3) Coronary artery disease: Code(s): I25.10 - Atherosclerotic heart disease of [place] coronary artery without angina pectoris <BRENDON Riley - Last Filed: 11/13/22 16:12> Status: Acute <BRENDON Riley - Last Filed: 11/13/22 16:12> Assessment and Plan: S/p CABG in 2019. Continue ASA, pravastatin, coreg. <BRENDON Riley - Last Filed: 11/13/22 16:12> (4) Shortness of breath: Code(s): R06.02 - Shortness of breath <BRENDON Riley - Last Filed: 11/13/22 16:12> Status: Acute <BRENDON Riley - Last Filed: 11/13/22 16:12> Assessment and Plan: Resolved. Now breathing comfortably on room air. ? Secondary to CHF, mild pulmonary edema on CXR in ED. Volume removal with dialysis. <BRENDON Riley - Last Filed: 11/13/22 16:12> Assessment and Plan: Attending addendum: I agree with the above documentation and plan of care as outlined. <BRENDON Riley - Last Filed: 11/13/22 16:12> Attending addendum: I agree with the above documentation and plan of care as outlined. While she remains hospitalized will follow her on an as-needed basis. Please do not hesitate to contact with any questions or concerns. Continue aspirin 81 mg daily in addition to statin therapy. She remains on Eliquis which would need to be held least 72 hours prior to invasive procedure. As she is asymptomatic in this regard continue with conservative medical management. <Shaheen Patel MD - Last Filed: 11/13/22 16:51> Subjective Date/time seen: 11/13/22 15:48 Cardiology follow up for elevated troponin <BRENDON Riley - Last Filed: 11/13/22 16:12> Interval history: She is feeling better today. Had another dialysis treatment this morning. Breathing comfortably on room air now. She continues to deny chest pain. <BRENDON Riley - Last Filed: 11/13/22 16:12> Review of Systems Review of Systems: All systems reviewed & are unremarkable except as noted in HPI and below <BRENDON Riley - Last Filed: 11/13/22 16:12> Exam Const: General: comfortable and no acute distress <BRENDON Riley - Last Filed: 11/13/22 16:12> HENMT: Head: normal to inspection <BRENDON Riley - Last Filed: 11/13/
--- NOTE | 2022-11-13 16:27 | PM.DS ---
DS: Admitting Diagnosis Discharge Date 11/13/22 Admitting Diagnosis Shortness of breath DS: Discharge Diagnosis Discharge Diagnosis (1) Acute respiratory failure with hypoxia: Code(s): J96.01 - Acute respiratory failure with hypoxia Status: Acute (2) Pulmonary edema: Code(s): J81.1 - Chronic pulmonary edema Status: Acute (3) AMS (altered mental status): Code(s): R41.82 - Altered mental status, unspecified Status: Acute (4) Chest pain: Qualifiers: Chest pain type: unspecified Qualified Code(s): R07.9 - Chest pain, unspecified Code(s): R07.9 - Chest pain, unspecified Status: Acute (5) Elevated troponin: Code(s): R77.8 - Other specified abnormalities of plasma proteins Status: Acute (6) Abdominal pain: Code(s): R10.9 - Unspecified abdominal pain Status: Acute (7) End-stage renal disease on hemodialysis: Code(s): N18.6 - End stage renal disease; Z99.2 - Dependence on renal dialysis Status: Acute (8) Insulin dependent type 2 diabetes mellitus: Code(s): E11.9 - Type 2 diabetes mellitus without complications; Z79.4 - terminal make up operator (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 Please see H&P for details. Hospital Course: In the ED, vital signs were normal. RR was 18 and states 98% on room air (but suspect she was on BiPAP at this time). WBC was normal, Hgb 11 and plt count low at 87K (but has hx of low platelet counts). ABG attempted but patient refused. Glucose was 496 with BUN 40 and Cr 6. Potassium was normal and no acidosis. Troponin 0.031 --> 0.276. BNP >30K. Procalcitonin 0.2. Influenza and COVID negative. CXR showing CMG with pulmonary edema. BCx NGTD. EKG showing normal sinus, Rt BBB, LAFB but no change from prior. Repeat EKG showing diffuse T wave changes. Cardiology was consulted. Echo showing EF 60-65%, Grade I diastolic dysfunction. Repeat EKG showing resolution of the T wave changes. Patient had a normal stress test in Feb 2022. Cardiology had no further recommendations. For her respiroatory distress, she wsa stabilized with BiPAP. She underwent HD 2 days in a row with improved fluid status. She was able to come off bipap and oxygen. Low platelet and abdominal pain prompted an abdominal US which showed cirrhosis and cholelithiasis without cholecystitis. Ammonia <9. She had clinical improvement and was able to be discharged home on 11/13/22. Discussed with family and all questions answered. Status at Discharge Cognitive/behavioral status at discharge: stable Time Spent with Patient Time attestation: Total time spent providing and/or coordinating discharge services: 35 minutes Time spent: Greater than 30 minutes Exam Narrative: AF 98.0 140/59 76 20 94% RA Gen - chronically ill appearing female in NARD Chest - bibasilar inspiratory crackles with a few scattered expiratory wheeze. Right upper chest tunneled HD catheter CV - RRR. S1-S2. Tele showing PVCs Abd - soft, NT/ND, +BS Ext - Left BKA, Right AKA. Left hand s/p amputation of 4th/5th fingers Psych - normal mood Skin - warm and dry. DS: Data Data Completed and Pending Labs on day of discharge: Labs from last 24 hours 11/13/22 11/13/22 11/13/22 14:20 07:22 07:20 WBC RBC Hgb Hct MCV MCH MCHC
[2022-11-13 16:35] LABS: Glucose Point of Care 195 mg/dl (65-105)
--- NOTE | 2022-11-13 17:53 | PM.PNNEP ---
Progress Note: A&P Assessment and Plan (1) End-stage renal disease on hemodialysis: Code(s): N18.6 - End stage renal disease; Z99.2 - Dependence on renal dialysis Status: Acute Assessment and Plan: The patient has end-stage renal disease. she had dialysis yesterday and today. Volume status looks better. Her potassium is good at 4.3. (2) Shortness of breath: Code(s): R06.02 - Shortness of breath Status: Acute Assessment and Plan: The patient had shortness of breath. Most likely from volume overload. She is doing much better now. She does have positive troponins. Cardiology saw the patient and is evaluating her. (3) Hypertension: Qualifiers: Hypertension type: renovascular hypertension Qualified Code(s): I15.0 - Renovascular hypertension Code(s): I10 - Essential (primary) hypertension Status: Chronic Assessment and Plan: Blood pressure is Better overall. It dropped to 97 on dialysis but generally has been better ranging from 110-150. No need to change her blood pressure meds. (4) Chronic anemia: Code(s): D64.9 - Anemia, unspecified Status: Acute Assessment and Plan: Hemoglobin is low And now in the 10s. If she still here on we can give her some EPO then (5) Insulin dependent type 2 diabetes mellitus: Code(s): E11.9 - Type 2 diabetes mellitus without complications; Z79.4 - longterm (current) use of insulin Status: Chronic Assessment and Plan: Hospitalists to manage this. (6) Renal osteodystrophy: Code(s): N25.0 - Renal osteodystrophy Status: Acute Assessment and Plan: phosphorus is normal (7) Coronary artery disease: Code(s): I25.10 - Atherosclerotic heart disease of [place] coronary artery without angina pectoris Status: Acute Assessment and Plan: Will check troponins and another EKG (8) Chronic obstructive pulmonary disease: Code(s): J44.9 - Chronic obstructive pulmonary disease, unspecified Status: Acute Assessment and Plan: She continues to smoke 5-6 cigarettes per day. Subjective Date/time seen: 11/13/22 17:53 Interval history: Patient feels better today. She is off oxygen and off the CPAP machine during the day. She is not having any chest pain. No jaw pain, no back pain, no left shoulder or arm pain, and no nausea. Review of Systems Cardiovascular: Cardiovascular: Reports no additional cardiovascular complaints Respiratory: Respiratory: Reports no additional respiratory complaints Gastrointestinal: Gastrointestinal: Reports no additional gastrointestinal complaints Genitourinary: Genitourinary: Reports no additional female genitourinary complaints Exam Narrative: WDWN in NAD skin no rash head ncat lungs clear cor reg no rub abd BS+ nontender and soft ext no edema. Right above the knee and left clfaa-mha-epun amputations Objective Data Vital Signs Vital Signs: Vital Signs - 24 hr 11/12/22 18:00 11/12/22 20:00 11/12/22 20:23 Temperature 97.9 F Pulse Rate 71 86 70 Respiratory Rate 20 Blood Pressure 128/63 Pulse Oximetry 98 Oxygen Delivery Oxygen Flow Rate Fraction of Inspired Oxygen 11/12/22 20:00 11/12/22 23:16 11/12/22 20:00 Temperature 97.9 F Pulse Rate 70 65 70 Respiratory Rate 20 20 Blood Pressure 134/79 Pulse Oximetry 98 96 Oxygen Delivery Nasal Cannula Oxygen Flow Rate 1 Fraction of Inspired Oxygen 11/12/22 22:00 11/13/22 00:00 11/13/22 00:00 Temperature Pulse Rate 70 65 63 Respiratory Rate 20 Blood Pressure Pulse Oximetry 96 Oxygen Delivery Nasal Cannula Oxygen Flow Rate 1 Fraction of Inspired Oxygen 11/12/22 20:00 11/13/22 02:00 11/13/22 03:18 Temperature 97.6 F Pulse Rate 71 63 65 Respiratory Rate 20 20 Blood Pressure 119/75 Pulse Oximetry 98 98 Oxygen Delivery Nasal Cannu
[2022-11-17 03:14] LABS: Hepatitis B Core Ab Total Nonreactive (Nonreactive)
== END 2022-11-13 18:58 | disposition home or self-care (01) | DRG 291 ==
LOC: ANHED 05:09 → ANHIMU 05:24
PROVIDERS: Internal Medicine Nephrology; Nurse Practitioner; Admitting Provider Internal Medicine; Emergency Provider Emergency Medicine; PCP Internal Medicine; Visit Provider Internal Medicine
DX: I13.2 Hypertensive heart and chronic kidney disease with heart failure and with stage 5 chronic kidney disease, or end stage renal disease (principal); J96.01 Acute respiratory failure with hypoxia; N18.6 End stage renal disease; J81.1 Chronic pulmonary edema; M86.9 Osteomyelitis, unspecified; E11.22 Type 2 diabetes mellitus with diabetic chronic kidney disease; F17.210 Nicotine dependence, cigarettes, uncomplicated; I50.9 Heart failure, unspecified; R07.9 Chest pain, unspecified; R77.8 Other specified abnormalities of plasma proteins; I15.0 Renovascular hypertension; D69.6 Thrombocytopenia, unspecified; D63.1 Anemia in chronic kidney disease; E78.5 Hyperlipidemia, unspecified; I25.10 Atherosclerotic heart disease of native coronary artery without angina pectoris; N25.0 Renal osteodystrophy; Z20.822 Contact with and (suspected) exposure to COVID-19; Z89.512 Acquired absence of left leg below knee; Z89.611 Acquired absence of right leg above knee; Z79.82 Long term (current) use of aspirin; Z89.022 Acquired absence of left finger(s); Z98.41 Cataract extraction status, right eye; Z98.42 Cataract extraction status, left eye; Z95.1 Presence of aortocoronary bypass graft; Z98.1 Arthrodesis status; Z99.2 Dependence on renal dialysis; Z79.4 Long term (current) use of insulin
CPT/HCPCS: 36415; 36600; 71045; 76700; 80053; 82140; 82948; 83036; 83605; 83735; 83880; 84100; 84145; 84484; 85025; 85055; 85610; 85730; 86704; 86706; 87040; 87340; 87636; 93005; 99291; A9270; C8929; G0257; G0378; J1644; J1815; J7030; Q9957

== ENCOUNTER 2022-11-24 13:20 | Observation (INO) | payer MEDICARE, OTHER, SELFPAY ==
[2022-11-24] VITALS (12 sets, daily range): BP systolic 101–195; BP diastolic 51–77; PULSE 57–70; RESP 13–20; TEMP 36.5–36.7; O2SAT 90–100; BMI 33.8
--- NOTE | ~2022-11-24 | XR_ITS ---
XR chest 1V portable DATE: 11/24/2022 13:46 INDICATION: Chest pain, shortness of breath. STEMI. TECHNIQUE: Portable AP view on 11/20/2022 at 1344 hours COMPARISON: 11/12/2022 portable AP chest at 0400 hours FINDINGS: A right tunneled catheter tip overlying right atrium. Status post sternotomy, coronary bypass graft surgery. Probable cardiomegaly. Aortic arch calcification. There is mild elevation right leaf of diaphragm. There are minimal atelectasis at the right lung base . The lungs otherwise appear clear. No of any pleural effusion. No pneumothorax. IMPRESSION: No significant change since 11/12/2022 Reviewed, dictated and finalized at location A.
--- NOTE | 2022-11-24 13:23 | ECG_ITS ---
Measurements Intervals [place] Rate: 67 P: 48 CO: 163 QRS: 216 QRSD: 142 T: 255 QT: 435 QTc: 462 Interpretive Statements SINUS RHYTHM WITH OCCASIONAL VENTRICULAR PREMATURE COMPLEXES INDETERMINATE AXIS RIGHT BUNDLE BRANCH BLOCK [120+ ms QRS DURATION, UPRIGHT V1, 40+ ms S IN I/aVL/V4/V5/V6] WITH NONSPECIFIC ST AND T-WAVE CHANGES ABNORMAL ECG COMPARED TO ECG 11/12/2022 16:10:56 NO SIGNIFICANT CHANGES Electronically Signed On 11-25-2022 8:23:21 CDT by Gilbert Hurley M.D.
--- NOTE | 2022-11-24 13:34 | ED.GENADULT ---
HPI - General Adult General Chief complaint: Chest Pain Stated complaint: CP/SOB Time Seen by Provider: 11/24/22 13:24 History of Present Illness HPI narrative: this is a 72-year-old female presenting to ED with chief complaint of chest pain. Patient was undergoing dialysis when she started to develop chest pain was sent to the hospital for evaluation. Patient is A&O times 1-2. She says the pain feels like someone is sitting on her chest. The patient is A&O times 1-2 and cannot provide very much useful information. patient gets dialysis Saturday. Related Data Home Medications Medication Instructions Recorded Confirmed apixaban 5 mg tablet (Eliquis) 5 mg PO BID 11/03/19 11/12/22 carvedilol 25 mg tablet 25 mg PO BID 11/03/19 11/12/22 insulin degludec 100 unit/mL 35 unit subcut HS 11/03/19 11/12/22 subcutaneous solution (Tresiba U-100 Insulin) pravastatin 40 mg tablet 40 mg PO HS 11/03/19 11/12/22 sertraline 25 mg tablet 25 mg PO QAM 02/11/20 11/12/22 gabapentin 400 mg capsule 400 mg PO TID 10/09/21 11/12/22 losartan 100 mg tablet See Rx Instructions .Route .COMPLEX 10/09/21 11/12/22 cetirizine 10 mg tablet 10 mg PO DAILY 02/06/22 11/12/22 insulin aspart U-100 100 unit/mL 8 unit subcut TIDWMEAL 02/28/22 11/12/22 (3 mL) subcutaneous pen (Novolog FlexPen U-100 Insulin aspart) pantoprazole 40 mg tablet,delayed 40 mg PO DAILY Heartburn 02/28/22 11/12/22 release nifedipine 30 mg tablet,extended 30 mg PO Q12H 11/12/22 11/12/22 release 24 hr (Procardia XL) Allergies Allergy/AdvReac Type Severity Reaction Status Date / Time No Known Allergies Allergy Verified 11/24/22 13:53 [facility] Past Medical History Medical History Arterial vascular disease Chronic anemia Coronary artery disease Digital arterial occlusive disease End-stage renal disease on hemodialysis Saturday, , Saturday. 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 Hemoglobin A1c was 6.8% in February 2020. Osteomyelitis Renal osteodystrophy Thrombocytopenia Surgical History Surgical History Amputation of right forefoot Right 4th and 5th ray amputation in 04/2017. Right foot transmetatarsal amputation with partial fasciotomy due to wet gangrene, osteomyelitis, and necrotizing fasciitis in May 2017. 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 History of below-knee amputation of both lower extremities Left zizxp-tcc-dudo amputation in 2017. Right uwsje-xzw-ernj amputation in 02/2020. History of bilateral cataract extraction History of carpal tunnel release History of four vessel coronary artery bypass graft (04/2019) History of right above knee amputation (05/12/20) History of right below knee amputation (10/06/22) History of spinal fusion History of surgical procedure on eye proper using laser Related to diabetic retinopathy. History of vascular surgery Right lower extremity stents in March 2017. Left lower extremity stent in 2014. Family History Family History Mother Diabetes mellitus Father Lung cancer Sibling Diabetes mellitus Social History Social History Social History: Surrogate medical decision maker: Kierra Blanton (sister) or Cyndi Blanton (daughter). Code status: DNR Smoking packs per day: 0.5 Smoking cigarettes per day: 10.0 Years smoked: 60 Smoking pack-years: 30.00 Smoking status: Current every day smoker Tobacco type: cigarettes Second hand tobacco smoke exposure: Yes Smoking end date: 06/03/15 Alcohol intake: never Drinks per week: 1 Alcohol use details: Previous social drinker.
--- NOTE | 2022-11-24 13:39 | ECG_ITS ---
Measurements Intervals [place] Rate: 67 P: 41 ME: 177 QRS: 232 QRSD: 143 T: 248 QT: 428 QTc: 452 Interpretive Statements SINUS RHYTHM WITH OCCASIONAL VENTRICULAR PREMATURE COMPLEXES RIGHT AXIS DEVIATION [QRS AXIS > 100] RIGHT BUNDLE BRANCH BLOCK [120+ ms QRS DURATION, UPRIGHT V1, 40+ ms S IN I/aVL/V4/V5/V6] NONSPECIFIC ST AND T-WAVE CHANGES ABNORMAL ECG COMPARED WITH EARLIER TODAY NO SIGNIFICANT CHANGES Electronically Signed On 11-25-2022 8:24:13 CDT by Gilbert Hurley M.D.
[2022-11-24 13:53] LABS: Basophils Percent Auto 0.5 % (0.2-1.2); Eosinophils Absolute Auto 0.2 K/mm3 (0-0.3); Eosinophils Percent Auto 3.5 % (0-4.4); Hematocrit 32.1 % (37.0-47.0); Hemoglobin 10.4 g/dL (12.0-15.0); Immature Granulocyte Absolute 0.05 K/mm3 (0.00-0.031); Immature Granulocyte Percent A 0.9 % (0-0.5); Immature Platelet Fraction Pct 12.5 % (0.9-11.2); Lymphocytes Absolute Auto 1.11 K/mm3 (0.9-3.2); Lymphocytes Percent Auto 19.3 % (18.3-44.2); Mean Corpuscular HGB Conc 32.4 g/dl (32-36); Mean Corpuscular Hemoglobin 32.5 pg (26-34); Mean Corpuscular Volume 100.3 fl (80-100); Mean Platelet Volume 13.3 fl (7.4-10.4); Monocytes Absolute Auto 0.3 K/mm3 (0.1-0.6); Monocytes Percent Auto 5.6 % (2.6-8.5); Neutrophils Absolute Auto 4.1 K/mm3 (1.3-6.7); Neutrophils Percent Auto 70.2 % (45.5-73.1); Platelet Count Result 104 k/mm3 (150-375); Red Cell Distribution Width 12.7 % (11.5-14.5); White Blood Count 5.8 K/mm3 (4.5-10.0)
[2022-11-24 13:56] LABS: Alanine Aminotransferase 21 U/L (6-35); Albumin Level 3.5 g/dL (3.5-5.1); Alkaline Phosphatase 123 U/L (38-126); Anion Gap 3 mmol/L (8-16); Aspartate Amino Transferase 24 U/L (14-36); Bilirubin,Total 0.4 mg/dL (0.2-1.3); Blood Urea Nitrogen 29 mg/dL (7-17); Calcium 7.5 mg/dL (8.4-10.2); Carbon Dioxide 32 mmol/L (22-30); Chloride 104 mmol/L (98-107); Estimated CRCL calculation 12 ml/min; Estimated Glomerular Filt Rate 11; Glucose 181 mg/dL (65-110); Lipase 287 U/L (23-300); Potassium 4.1 mmol/L (3.4-5.0); Sodium 139 mmol/L (137-145)
[2022-11-24 13:57] LABS: INR 1.4; Prothrombin Time 17.7 Seconds (11.1-14.7)
[2022-11-24 13:58] LABS: Partial Thromboplastin Time 37.5 SECONDS (22.3-36.8)
[2022-11-24 14:10] LABS: Troponin I 0.043 ng/mL (0.000-0.034)
--- NOTE | 2022-11-24 14:12 | PC.NURSE ---
pt. stated they would like staff to call her sister 'Kierra' and daughter 'Cyndi'. Both parties did not answer the phone call.
[2022-11-24 16:14] LABS: Appearance Urine Turbid (Clear); Bacteria Urine 4+ /hpf; Bilirubin Urine Negative (Negative); Blood Urine 1+ (Negative); Color Urine Yellow (Yellow); Glucose Urine UA 2+ mg/dL (Negative); Hyaline Casts Urine Present /lpf; Ketones Urine Negative (Negative); Leukocyte Esterase Ur 2+ LEU/UL (Negative); Nitrate Urine Negative (Negative); Protein Urine 4+ mg/dL (Negative); Specific Grav Ur 1.019 (1.001-1.035); Squamous Epithelial Cell Urine Occasional /hpf (Few); Urobilinogen Urine 0.2 mg/dL (<2.0); WBC Urine >100 /hpf; pH Urine 6.5 (5.0-9.0)
[2022-11-24 16:32] LABS: Add Urine Microscopic? YES
[2022-11-24] MEDS: PIPERACILLIN/TAZ 2.25G/NS 50ML 2.25 GM/50 ML BAG IVPB ×2 (17:19→20:52)
[2022-11-24] MEDS: CRASH CART LOCKS 1 EACH XX (17:19)
[2022-11-24 17:45] LABS: Troponin I < 0.012 ng/mL (0.000-0.034)
[2022-11-24 20:10] LABS: Troponin I 0.047 ng/mL (0.000-0.034)
--- NOTE | 2022-11-24 20:17 | PM.IMHP ---
H&P: HPI History of Present Illness Date/Time: 11/24/22 20:17 Chief Complaint: Chest pain Narrative: This is a 72-year-old female patient who came in with chest pain. The patient has end-stage renal disease and had dialysis today. Patient stated that her chest pain developed while she was in hemodialysis. The patient stated that she felt like somebody was sitting on her chest. She stated that she does occasionally make some urine. Her H&H is 10.4 and 32.1 which appears to be her baseline. Her platelet count is 104. BUN 29 creatinine 3.9 with a GFR of 11. Her blood glucose was 181 and then 106. Troponin 0.043 and 0.049. Her urine was positive for UTI. The patient was started on Zosyn. Chest x-ray was read as no significant change. The patient is being admitted to inpatient status on the date of service of 11/24/2022. Review of Systems Review of Systems: All systems reviewed & are unremarkable except as noted in HPI and below Constitutional: Constitutional: Reports as per HPI and Reports no additional constitutional complaints Eyes: Eyes: Reports as per HPI and Reports no additional eye complaints ENT: Reports system reviewed and no additional complaints, except as documented and Reports Normal hearing present Cardiovascular: Cardiovascular: Reports no additional cardiovascular complaints Respiratory: Respiratory: Reports no additional respiratory complaints and Reports no additional respiratory complaints Gastrointestinal: Gastrointestinal: Reports as per HPI and Reports no additional gastrointestinal complaints Musculoskeletal: Musculoskeletal: Reports no additional musculoskeletal complaints Integumentary/Breasts: Skin/Breast: Reports system reviewed and no additional complaints, except as docu and Reports as per HPI Neurologic: Reports system reviewed and no additional complaints, except as documented, Reports as per HPI and Reports Normal hearing present Psychiatric: Psychiatric: Reports no additional psychiatric complaints and Reports as per HPI Endocrine: Endocrine: Reports no additional endocrine complaints Hematologic/Lymphatic: Hematologic/Lymphatic: Reports no additional hematologic/lymphatic complaints Allergic/Immunologic: Allergic/Immunologic: Reports no additional allergic/immunologic complaints [facility] Past Medical History Medical History (Updated 11/25/22 @ 00:14 by Marta Juarez NP) Anxiety with depression Arterial vascular disease Chronic anemia Coronary artery disease COVID Digital arterial occlusive disease End-stage renal disease on hemodialysis Saturday, , Saturday. 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 Hemoglobin A1c was 6.8% in February 2020. Osteomyelitis Renal osteodystrophy Thrombocytopenia Surgical History Surgical History (Updated 11/25/22 @ 00:03 by Marta Juarez NP) Amputation of right forefoot Right 4th and 5th ray amputation in 04/2017. Right foot transmetatarsal amputation with partial fasciotomy due to wet gangrene, osteomyelitis, and necrotizing fasciitis in May 2017. 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 History of below-knee amputation of both lower extremities Left zoqzu-oon-xuyh amputation in 2017. Right istio-tod-tgkg amputation in 02/2020. 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 History of vascular surgery Right lower extremity stents in March 2017. Left lower extremity stent in 2014. Family History Family History Mother Marcia
[2022-11-24 20:34] LABS: Troponin I 0.049 ng/mL (0.000-0.034)
[2022-11-24 22:11] LABS: Glucose Point of Care 106 mg/dl (65-105)
--- NOTE | 2022-11-24 23:07 | ADMGEN ---
This patient, Tawana Prado, was admitted to [facility] Surg Room 330-01 at 1910. Patient/family oriented to hospital policies and general routines including ID bracelet, bed and alarms, visiting hours, pain management, procedures, bathroom and other care routines, personal items, smoking policy, room service/diet, and visiting hours. Information on how to activate the Rapid Response Team has been discussed. Patient/Family are encouraged to report perceived risks to care and to ask questions if they do not understand what they are told or what they should do.
[2022-11-25] VITALS (16 sets, daily range): BP systolic 139–206; BP diastolic 41–57; PULSE 56–84; RESP 16–18; TEMP 35.8–36.7; O2SAT 92–100
[2022-11-25] MEDS: carvediloL 25 MG TABLET PO ×3 (02:20→16:47)
[2022-11-25] MEDS: NIFEdipine 30 MG TAB.ER.24 PO ×3 (02:20→21:51)
[2022-11-25] MEDS: hydrALAZINE HCL 20 MG/ML VIAL 10 MG IV PUSH (04:30)
[2022-11-25] MEDS: PIPERACILLIN/TAZ 2.25G/NS 50ML 2.25 GM/50 ML BAG IVPB ×3 (05:24→21:51)
[2022-11-25 07:41] LABS: Lactic Acid Reflex 1.3 mmol/L (0.7-2.0)
[2022-11-25 07:42] LABS: Hemoglobin A1C 7.1 % (<5.7)
[2022-11-25 07:43] LABS: Alanine Aminotransferase 20 U/L (6-35); Albumin Level 3.2 g/dL (3.5-5.1); Alkaline Phosphatase 87 U/L (38-126); Anion Gap 4 mmol/L (8-16); Aspartate Amino Transferase 24 U/L (14-36); Bilirubin,Total 0.4 mg/dL (0.2-1.3); Blood Urea Nitrogen 37 mg/dL (7-17); Calcium 7.7 mg/dL (8.4-10.2); Carbon Dioxide 32 mmol/L (22-30); Chloride 102 mmol/L (98-107); Estimated CRCL calculation 9 ml/min; Estimated Glomerular Filt Rate 8; Glucose 189 mg/dL (65-110); Magnesium 2.3 mg/dL (1.6-2.3); Phosphorus 5.9 mg/dL (2.5-4.5); Potassium 4.6 mmol/L (3.4-5.0); Sodium 138 mmol/L (137-145)
[2022-11-25 07:53] LABS: Troponin I 0.038 ng/mL (0.000-0.034)
[2022-11-25 08:04] LABS: Basophils Percent Auto 0.5 % (0.2-1.2); Eosinophils Absolute Auto 0.2 K/mm3 (0-0.3); Eosinophils Percent Auto 4.1 % (0-4.4); Hematocrit 31.8 % (37.0-47.0); Hemoglobin 9.9 g/dL (12.0-15.0); Immature Granulocyte Absolute 0.03 K/mm3 (0.00-0.031); Immature Granulocyte Percent A 0.7 % (0-0.5); Lymphocytes Absolute Auto 0.72 K/mm3 (0.9-3.2); Lymphocytes Percent Auto 16.3 % (18.3-44.2); Mean Corpuscular HGB Conc 31.1 g/dl (32-36); Mean Corpuscular Hemoglobin 31.5 pg (26-34); Mean Corpuscular Volume 101.3 fl (80-100); Mean Platelet Volume 13.4 fl (7.4-10.4); Monocytes Absolute Auto 0.3 K/mm3 (0.1-0.6); Monocytes Percent Auto 6.3 % (2.6-8.5); Neutrophils Absolute Auto 3.2 K/mm3 (1.3-6.7); Neutrophils Percent Auto 72.1 % (45.5-73.1); Platelet Count Result 92 k/mm3 (150-375); Red Blood Count 3.14 M/mm3 (4.2-5.4); Red Cell Distribution Width 12.8 % (11.5-14.5); White Blood Count 4.4 K/mm3 (4.5-10.0)
[2022-11-25 08:32] LABS: Glucose Point of Care 186 mg/dl (65-105)
[2022-11-25] MEDS: APIXABAN 5 MG TABLET PO ×2 (09:01→16:47)
[2022-11-25] MEDS: LOSARTAN POTASSIUM 100 MG TABLET BY MOUTH (09:01)
[2022-11-25] MEDS: PANTOPRAZOLE 40 MG TABLET PO (09:01)
[2022-11-25] MEDS: GABAPENTIN 400 MG CAPSULE PO ×3 (09:02→16:47)
[2022-11-25] MEDS: SERTRALINE HCL 25 MG TABLET PO (09:02)
[2022-11-25] MEDS: LORATADINE 10 MG TABLET PO (09:02)
[2022-11-25 12:09] LABS: Glucose Point of Care 210 mg/dl (65-105)
[2022-11-25] MEDS: INSULIN ASPART (*BKC) 100 UNITS/ML SUB-Q ×3 (12:12→21:53)
--- NOTE | 2022-11-25 12:55 | PM.IMPN ---
Progress Note: A&P Assessment and Plan (1) Acute UTI: Code(s): N39.0 - Urinary tract infection, site not specified Status: Acute Assessment and Plan: UA showing 2+ leukocyte esterase, 3-5 RBCs, greater than 100 wbc's and 4+ bacteria. The patient has a history of ESBL. The patient was started on piperacillin and tazobactam as this is sensitive to the ESBL. Blood and urine cultures are pending. (2) Diabetes: Code(s): E11.9 - Type 2 diabetes mellitus without complications Status: Acute Assessment and Plan: Accu-Cheks AC and HS with sliding scale insulin continue with long-acting insulin. Continue with gabapentin for the diabetic neuropathy. Patient has had multiple amputations. Hemoglobin A1c 7.1 (3) COPD (chronic obstructive pulmonary disease): Code(s): J44.9 - Chronic obstructive pulmonary disease, unspecified Status: Acute Assessment and Plan: No problems at this time. (4) CHF (congestive heart failure): Code(s): I50.9 - Heart failure, unspecified Status: Acute Assessment and Plan: Last echo on 11/12/2022. (5) HTN (hypertension): Code(s): I10 - Essential (primary) hypertension Status: Acute Assessment and Plan: Continue with Coreg, losartan and Procardia (6) End-stage renal disease (ESRD): Code(s): N18.6 - End stage renal disease Status: Acute Assessment and Plan: Patient has dialysis on Saturday. The patient stated that she had her dialysis today. Nephrology has been consulted. (7) Elevated troponin: Code(s): R77.8 - Other specified abnormalities of plasma proteins Status: Acute Assessment and Plan: Most likely secondary to her end-stage renal disease. The patient initially complained of chest pain but this is now resolved. (8) Chronic anemia: Code(s): D64.9 - Anemia, unspecified Status: Acute Assessment and Plan: The patient is at her baseline. (9) Anxiety with depression: Code(s): F41.8 - Other specified anxiety disorders Status: Acute Assessment and Plan: Continue with Zoloft Plan Anticoagulation continue with Eliquis. Subjective Date/time seen: 11/25/22 12:55 Interval history: Patient feeling much better today. She presented with chest pain although this is resolved. Is found to have UTI. She rarely urinates. States that she might urinate once a day. She is on dialysis. She denies dizziness, chest pain, shortness a breath, nausea, vomiting and edema. Awaiting cultures to return. Review of Systems Review of Systems: All systems reviewed & are unremarkable except as noted in HPI and below Exam Narrative: GENERAL: Comfortable, no acute distress HENMT: moist mucous membranes EYES: EOM intact b/l NECK: no lymphadenopathy RESPIRATORY: clear to auscultation CARDIO: RRR GI: soft, nontender, bowel sounds present SKIN: no rashes EXTREMITIES: Bilateral lower extremity amputation Objective Data Vital Signs Vital Signs: Vital Signs - 24 hr 11/24/22 13:20 11/24/22 13:22 11/24/22 13:28 Temperature 98.0 F 98.0 F Pulse Rate 65 67 67 Respiratory Rate 15 13 Blood Pressure 101/51 L 101/51 L Pulse Oximetry 96 92 Oxygen Delivery Room Air Oxygen Flow Rate 11/24/22 13:37 11/24/22 13:56 11/24/22 15:30 Temperature Pulse Rate 70 68 61 Respiratory Rate 20 14 15 Blood Pressure 110/54 L 110/54 L 165/54 H Pulse Oximetry 90 98 100 Oxygen Delivery Oxygen Flow Rate 11/24/22 17:05 11/24/22 18:22 11/24/22 18:49 Temperature Pulse Rate 64 58 L 61 Respiratory Rate 13 14 17 Blood Pressure 186/57 H 129/77 Pulse Oximetry 92 98 96 Oxygen Delivery Oxygen Flow Rate 11/24/22 19:56 11/24/22 20:36 11/24/22 20:00 Temperature 97.7 F 97.7 F Pulse Rate 58 L 57 L 59 L Respiratory
--- NOTE | 2022-11-25 13:17 | PM.CNNEP ---
Assessment and Plan Assessment and plan (1) End stage renal disease: Code(s): N18.6 - End stage renal disease Status: Chronic Assessment and Plan: plan HD Saturday and continue T/T/S dialysis schedule while hospitalized follow electrolytes, volume status, and clearance (2) Chest pain: Qualifiers: Chest pain type: unspecified Qualified Code(s): R07.9 - Chest pain, unspecified Code(s): R07.9 - Chest pain, unspecified Status: Acute Assessment and Plan: resolved on its own troponins and EKG noted continue supportive therapy (3) Acute UTI: Code(s): N39.0 - Urinary tract infection, site not specified Status: Acute Assessment and Plan: admission UA highly suggestive known history of ESBL E.coli on antibiotics follow cultures results (4) Chronic obstructive pulmonary disease: Code(s): J44.9 - Chronic obstructive pulmonary disease, unspecified Status: Acute Assessment and Plan: appears compensated at this time continue supplemental oxygen continue home inhalesrs follow respiratory status (5) Hypertension: Qualifiers: Hypertension type: renovascular hypertension Qualified Code(s): I15.0 - Renovascular hypertension Code(s): I10 - Essential (primary) hypertension Status: Chronic Assessment and Plan: reasonable control at this time resumed on home medications follow trend of hemodynamics (6) Anemia: Code(s): D64.9 - Anemia, unspecified Status: Chronic Assessment and Plan: due to ESRD close to goal Epogen with HD follow trend of H/H (7) Insulin dependent type 2 diabetes mellitus: Code(s): E11.9 - Type 2 diabetes mellitus without complications; Z79.4 - shelter (current) use of insulin Status: Chronic Assessment and Plan: follow accuchecks glycemic control per hospitalists I will continue follow the patient with you while she remains hospitalized make further recommendations during her hospital course. Thank you for allowing me to participate in the care of this patient. History of Present Illness Reason for Consult Consult date: 11/25/22 Reason for consult: end stage renal disease Chief Complaint Chief complaint: UTI/Chest Pain History of Present Illness Narrative: The patient is a 72-year-old female with a past medical history as outlined below who presented to [facility] Emergency room for further evaluation of chest pain. The patient apparently had chest pain during her dialysis treatment yesterday. She her dialysis treatment was subsequently ended early and EMS was called for transport to the ER. She reported that the chest pain was like somebody was standing on my chest that was persistent during her dialysis treatment and was not easing up despite conservative therapy. Hence, as already mentioned, her dialysis treatment was aborted and EMS was called for further evaluation and subsequent transport to the ER for assessment. Workup and evaluation emergency room demonstrated the patient be hemodynamically stable (if not hypertensive). Her initial EKG was concerning for possible ischemia and STEMI but on further review of her previous EKGs, there were no significant changes. Troponins were mildly elevated but relatively flat. Routine blood test demonstrated labs consistent with her known history of end-stage renal disease with no critical electrolyte abnormalities and her CBC was unremarkable with anemia consistent with her previous laboratory findings. Her urinalysis was highly suggestive of urinary tract infection and her chest x-ray demonstrated no significant pathology. After appropriate cultures were obtained, she was started on broad-spectrum IV antibiotic therapy for her presumed urinary tract infection and possible bloodstream infection (she does have a tunneled dialysis catheter in place) and subseque
--- NOTE | 2022-11-25 15:59 | PC.NURSE ---
Pt has been compliant with care all day. Pt has reported no pain and expresses no needs at this time. Pt has times of confusion but can answer questions appropriately if given time to recall information. Will continue to monitor pt.
[2022-11-25 17:11] LABS: Glucose Point of Care 221 mg/dl (65-105)
[2022-11-25 21:10] LABS: Glucose Point of Care 248 mg/dl (65-105)
[2022-11-25] MEDS: PRAVASTATIN SODIUM 20 MG TABLET 40 MG PO (21:51)
[2022-11-25] MEDS: INSULIN GLARGINE (*BKC) 100 UNITS/ML 35 UNITS SUB-Q (22:00)
[2022-11-26] VITALS (16 sets, daily range): BP systolic 136–167; BP diastolic 44–59; PULSE 60–83; RESP 12–20; TEMP 35.5–36.6; O2SAT 95–100
[2022-11-26] MEDS: PIPERACILLIN/TAZ 2.25G/NS 50ML 2.25 GM/50 ML BAG IVPB (04:58)
[2022-11-26 06:32] LABS: Basophils Percent Auto 0.6 % (0.2-1.2); Eosinophils Absolute Auto 0.2 K/mm3 (0-0.3); Eosinophils Percent Auto 4.8 % (0-4.4); Hematocrit 29.9 % (37.0-47.0); Hemoglobin 9.3 g/dL (12.0-15.0); Immature Granulocyte Absolute 0.03 K/mm3 (0.00-0.031); Immature Granulocyte Percent A 0.6 % (0-0.5); Immature Platelet Fraction Pct 10.7 % (0.9-11.2); Lymphocytes Absolute Auto 0.84 K/mm3 (0.9-3.2); Lymphocytes Percent Auto 18.1 % (18.3-44.2); Mean Corpuscular HGB Conc 31.1 g/dl (32-36); Mean Corpuscular Hemoglobin 31.7 pg (26-34); Mean Platelet Volume 13.3 fl (7.4-10.4); Monocytes Absolute Auto 0.3 K/mm3 (0.1-0.6); Monocytes Percent Auto 6.5 % (2.6-8.5); Neutrophils Absolute Auto 3.2 K/mm3 (1.3-6.7); Neutrophils Percent Auto 69.4 % (45.5-73.1); Platelet Count Result 91 k/mm3 (150-375); Red Blood Count 2.93 M/mm3 (4.2-5.4); Red Cell Distribution Width 12.7 % (11.5-14.5); White Blood Count 4.6 K/mm3 (4.5-10.0)
[2022-11-26 06:34] LABS: Alanine Aminotransferase 17 U/L (6-35); Albumin Level 3.1 g/dL (3.5-5.1); Alkaline Phosphatase 87 U/L (38-126); Anion Gap 5 mmol/L (8-16); Aspartate Amino Transferase 20 U/L (14-36); Bilirubin,Total 0.4 mg/dL (0.2-1.3); Blood Urea Nitrogen 47 mg/dL (7-17); Calcium 7.1 mg/dL (8.4-10.2); Carbon Dioxide 30 mmol/L (22-30); Chloride 103 mmol/L (98-107); Estimated CRCL calculation 7 ml/min; Estimated Glomerular Filt Rate 6; Glucose 169 mg/dL (65-110); Potassium 4.5 mmol/L (3.4-5.0); Sodium 138 mmol/L (137-145)
[2022-11-26 07:10] LABS: Hepatitis B Surface Antigen Negative (Negative)
[2022-11-26 07:40] LABS: Glucose Point of Care 154 mg/dl (65-105)
[2022-11-26] MEDS: SERTRALINE HCL 25 MG TABLET PO (09:41)
[2022-11-26] MEDS: NIFEdipine 30 MG TAB.ER.24 PO ×2 (09:41→21:04)
[2022-11-26] MEDS: PANTOPRAZOLE 40 MG TABLET PO (09:41)
[2022-11-26] MEDS: LOSARTAN POTASSIUM 100 MG TABLET BY MOUTH (09:42)
[2022-11-26] MEDS: LORATADINE 10 MG TABLET PO (09:42)
[2022-11-26] MEDS: APIXABAN 5 MG TABLET PO ×2 (09:42→17:17)
[2022-11-26] MEDS: GABAPENTIN 400 MG CAPSULE PO ×3 (09:42→17:17)
[2022-11-26] MEDS: carvediloL 25 MG TABLET PO ×2 (09:42→17:18)
[2022-11-26 09:44] LABS: Hepatitis B Surface Anti Res Indeterminate
--- NOTE | 2022-11-26 10:12 | PM.PNNEP ---
Progress Note: A&P Assessment and Plan (1) End stage renal disease: Code(s): N18.6 - End stage renal disease Status: Chronic Assessment and Plan: HD tomorrow and continue T/T/S dialysis schedule while hospitalized follow electrolytes, volume status, and clearance (2) Chest pain: Qualifiers: Chest pain type: unspecified Qualified Code(s): R07.9 - Chest pain, unspecified Code(s): R07.9 - Chest pain, unspecified Status: Acute Assessment and Plan: resolved on its own troponins and EKG noted continue supportive therapy (3) Acute UTI: Code(s): N39.0 - Urinary tract infection, site not specified Status: Acute Assessment and Plan: admission UA highly suggestive urine culture with Enterococcus 1/2 blood culture with gram positive cocci (contaminant?) on antibiotics follow cultures results (4) Chronic obstructive pulmonary disease: Code(s): J44.9 - Chronic obstructive pulmonary disease, unspecified Status: Acute Assessment and Plan: appears compensated at this time continue supplemental oxygen continue home inhalesrs follow respiratory status (5) Hypertension: Qualifiers: Hypertension type: renovascular hypertension Qualified Code(s): I15.0 - Renovascular hypertension Code(s): I10 - Essential (primary) hypertension Status: Chronic Assessment and Plan: reasonable control at this time resumed on home medications follow trend of hemodynamics (6) Anemia: Code(s): D64.9 - Anemia, unspecified Status: Chronic Assessment and Plan: due to ESRD close to goal Epogen with HD follow trend of H/H (7) Insulin dependent type 2 diabetes mellitus: Code(s): E11.9 - Type 2 diabetes mellitus without complications; Z79.4 - residential (current) use of insulin Status: Chronic Assessment and Plan: follow accuchecks glycemic control per hospitalists Will continue to follow. Subjective Date/time seen: 11/26/22 10:12 Interval history: Follow-up for end stage renal disease on hemodialysis. No apparent distress noted at the time of my visit; no recurrence of chest pain noted; breathing appears stable; no issues/events overnight or earlier this morning. Exam Narrative: General: elderly female in NAD Heart: normal S1 and S2; no rub Lungs: clear anteriorly; decreased at bases Abdomen: soft, nontender, nondistended, positive bowel sounds Extremities: no cyanosis or clubbing; no edema; s/p left BKA and right AKA Skin: warm and dry Objective Data Vital Signs Vital Signs: Vital Signs Temp Pulse Resp BP Pulse Ox O2 Del Method O2 Flow Rate 11/26/22 08:02 63 11/26/22 08:00 100 Nasal Cannula 2 11/26/22 09:42 63 11/26/22 07:54 97.7 F 60 12 139/44 L 100 11/26/22 06:00 96 F L 65 16 160/46 H 100 11/26/22 04:00 70 11/26/22 00:10 95 Nasal Cannula 2 11/26/22 01:40 97 F L 65 20 167/54 H 96 11/26/22 00:00 66 11/25/22 20:00 97 Nasal Cannula 2 11/25/22 20:00 84 11/25/22 20:15 96.4 F L 60 18 159/45 H 97 11/25/22 16:02 65 11/25/22 14:00 97.3 F L 62 16 150/41 H 97 11/25/22 16:47 66 Intake/Output Intake/Output: Intake & Output 11/23/22 11/24/22 11/25/22 11/26/22 23:59 23:59 23:59 23:59 Intake Total 100 1230 570 Output Total 0 240 Balance 100 1230 330 Meds/Results Medications: Active Medications Generic Name Dose Route Start Last Admin Trade Name Freq PRN Reason Stop Dose Admin Apixaban 5 mg 11/25/22 09:00 11/26/22 09:42 Apixaban 5 Mg Tablet PO 5 mg BID KEMI Administration Carvedilol 25 mg 11/25/22 09:00 11/26/22 09:42 Carvedilol 25 Mg Tablet PO 25 mg BID KEMI Administration Dextrose 12.5 gm 11/24/22 23:59 Dextrose 50% 25 Gm/50 Ml Syringe IV PUSH PRN PRN Hyp
--- NOTE | 2022-11-26 10:12 | P.PNNP_ITS ---
Progress Note: A&P Assessment and Plan (1) End stage renal disease: Code(s): N18.6 - End stage renal disease Status: Chronic Assessment and Plan: * HD tomorrow and continue T/T/S dialysis schedule while hospitalized * follow electrolytes, volume status, and clearance (2) Chest pain: Qualifiers: Chest pain type: unspecified Qualified Code(s): R07.9 - Chest pain, unspecified Code(s): R07.9 - Chest pain, unspecified Status: Acute Assessment and Plan: * resolved on its own * troponins and EKG noted * continue supportive therapy (3) Acute UTI: Code(s): N39.0 - Urinary tract infection, site not specified Status: Acute Assessment and Plan: * admission UA highly suggestive * urine culture with Enterococcus * 1/2 blood culture with gram positive cocci (contaminant?) * on antibiotics * follow cultures results (4) Chronic obstructive pulmonary disease: Code(s): J44.9 - Chronic obstructive pulmonary disease, unspecified Status: Acute Assessment and Plan: * appears compensated at this time * continue supplemental oxygen * continue home inhalesrs * follow respiratory status (5) Hypertension: Qualifiers: Hypertension type: renovascular hypertension Qualified Code(s): I15.0 - Renovascular hypertension Code(s): I10 - Essential (primary) hypertension Status: Chronic Assessment and Plan: * reasonable control at this time * resumed on home medications * follow trend of hemodynamics (6) Anemia: Code(s): D64.9 - Anemia, unspecified Status: Chronic Assessment and Plan: * due to ESRD * close to goal * Epogen with HD * follow trend of H/H (7) Insulin dependent type 2 diabetes mellitus: Code(s): E11.9 - Type 2 diabetes mellitus without complications; Z79.4 - [facility] (current) use of insulin Status: Chronic Assessment and Plan: * follow accuchecks * glycemic control per hospitalists Will continue to follow. Subjective Date/time seen: 11/26/22 10:12 Interval history: Follow-up for end stage renal disease on hemodialysis. No apparent distress noted at the time of my visit; no recurrence of chest pain noted; breathing appears stable; no issues/events overnight or earlier this morning. Exam Narrative: General: elderly female in NAD Heart: normal S1 and S2; no rub Lungs: clear anteriorly; decreased at bases Abdomen: soft, nontender, nondistended, positive bowel sounds Extremities: no cyanosis or clubbing; no edema; s/p left BKA and right AKA Skin: warm and dry Objective Data Vital Signs Vital Signs: Vital Signs Temp Pulse Resp BP Pulse Ox O2 Del Method O2 Flow Rate 11/26/22 08:02 63 11/26/22 08:00 100 Nasal Cannula 2 11/26/22 09:42 63 11/26/22 07:54 97.7 F 60 12 139/44 L 100 11/26/22 06:00 96 F L 65 16 160/46 H 100 11/26/22 04:00 70 11/26/22 00:10 95 Nasal Cannula 2 11/26/22 01:40 97 F L 65 20 167/54 H 96 11/26/22 00:00 66 11/25/22 20:00 97 Nasal Cannula 2 11/25/22 20:00 84 11/25/22 20:15 96.4 F L 60 18 159/45 H 97 11/25/22 16:02 65 11/25/22 14:00 97.3 F L 62 16 150/
--- NOTE | 2022-11-26 11:25 | PCCCNOTE ---
On 11/26/22, the student, [Lorraine Flanagan], provided care and completed [facility] documentation on this patient. I have reviewed the student's documentation and agree with the findings.
[2022-11-26 11:26] LABS: Glucose Point of Care 196 mg/dl (65-105)
--- NOTE | 2022-11-26 13:21 | PM.IMPN ---
Progress Note: A&P Assessment and Plan (1) Acute UTI: Code(s): N39.0 - Urinary tract infection, site not specified Status: Acute Assessment and Plan: UA showing 2+ leukocyte esterase, 3-5 RBCs, greater than 100 wbc's and 4+ bacteria. The patient has a history of ESBL. The patient was initially started on piperacillin and tazobactam as this is sensitive to the ESBL. Zosyn discontinued. 11/26 Urine culture post Enterococcus species Blood culture positive for g positive cocci in 1 bottle Antibiotics transition to vancomycin, sensitivities pending (2) Diabetes: Code(s): E11.9 - Type 2 diabetes mellitus without complications Status: Acute Assessment and Plan: Accu-Cheks AC and HS with sliding scale insulin continue with long-acting insulin. Continue with gabapentin for the diabetic neuropathy. Patient has had multiple amputations. Hemoglobin A1c 7.1 (3) COPD (chronic obstructive pulmonary disease): Code(s): J44.9 - Chronic obstructive pulmonary disease, unspecified Status: Acute Assessment and Plan: No problems at this time. (4) CHF (congestive heart failure): Code(s): I50.9 - Heart failure, unspecified Status: Acute Assessment and Plan: Last echo on 11/12/2022. (5) HTN (hypertension): Code(s): I10 - Essential (primary) hypertension Status: Acute Assessment and Plan: Continue with Coreg, losartan and Procardia (6) End-stage renal disease (ESRD): Code(s): N18.6 - End stage renal disease Status: Acute Assessment and Plan: Patient has dialysis on Saturday. The patient stated that she had her dialysis today. Nephrology has been consulted. (7) Elevated troponin: Code(s): R77.8 - Other specified abnormalities of plasma proteins Status: Acute Assessment and Plan: Most likely secondary to her end-stage renal disease. The patient initially complained of chest pain but this is now resolved. (8) Chronic anemia: Code(s): D64.9 - Anemia, unspecified Status: Acute Assessment and Plan: The patient is at her baseline. (9) Anxiety with depression: Code(s): F41.8 - Other specified anxiety disorders Status: Acute Assessment and Plan: Continue with Zoloft Plan Anticoagulation continue with Eliquis. Subjective Date/time seen: 11/26/22 13:21 Interval history: Patient doing much better today and has no new complaints. Her chest pain has resolved. She denies any nausea, vomiting, abdominal pain, dizziness, shortness of breath. Discussed with her the course of action with a positive urine and blood culture. Review of Systems Review of Systems: All systems reviewed & are unremarkable except as noted in HPI and below Exam Narrative: GENERAL: Comfortable, no acute distress HENMT: moist mucous membranes EYES: EOM intact b/l NECK: no lymphadenopathy RESPIRATORY: clear to auscultation CARDIO: RRR GI: soft, nontender, bowel sounds present SKIN: no rashes EXTREMITIES: no edema, redness or tenderness Objective Data Vital Signs Vital Signs: Vital Signs - 24 hr 11/25/22 16:47 11/25/22 14:00 11/25/22 16:02 Temperature 97.3 F L Pulse Rate 66 62 65 Respiratory Rate 16 Blood Pressure 150/41 H Pulse Oximetry 97 Oxygen Delivery Oxygen Flow Rate Fraction of Inspired Oxygen 11/25/22 20:15 11/25/22 20:00 11/25/22 20:00 Temperature 96.4 F L Pulse Rate 60 84 Respiratory Rate 18 Blood Pressure 159/45 H Pulse Oximetry 97 97 Oxygen Delivery Nasal Cannula Oxygen Flow Rate 2 Fraction of Inspired Oxygen 11/26/22 00:00 11/26/22 01:40 11/26/22 00:10 Temperature 97 F L Pulse Rate 66 65 Respiratory Rate 20 Blood Pressure 167/54 H Pulse Oximetry 96 95 Oxygen Delivery Nasal Cannula Oxygen
[2022-11-26 16:54] LABS: Glucose Point of Care 350 mg/dl (65-105)
[2022-11-26] MEDS: INSULIN ASPART (*BKC) 100 UNITS/ML SUB-Q ×2 (17:18→20:55)
--- NOTE | 2022-11-26 19:29 | PC.NURSE ---
Pt has no change in status today. Pt has been compliant with care and reported no pain. Pt expresses no needs at this time. Pt monitored for any changes.
[2022-11-26 20:15] LABS: Glucose Point of Care 296 mg/dl (65-105)
[2022-11-26] MEDS: INSULIN GLARGINE (*BKC) 100 UNITS/ML 35 UNITS SUB-Q (20:57)
[2022-11-26] MEDS: PRAVASTATIN SODIUM 20 MG TABLET 40 MG PO (20:59)
[2022-11-27] VITALS (24 sets, daily range): BP systolic 108–171; BP diastolic 42–63; PULSE 55–89; RESP 16–20; TEMP 36–36.9; O2SAT 94–98
[2022-11-27 05:20] LABS: Basophils Percent Auto 0.4 % (0.2-1.2); Eosinophils Absolute Auto 0.3 K/mm3 (0-0.3); Eosinophils Percent Auto 5.4 % (0-4.4); Hematocrit 29.5 % (37.0-47.0); Hemoglobin 9.4 g/dL (12.0-15.0); Immature Granulocyte Absolute 0.03 K/mm3 (0.00-0.031); Immature Granulocyte Percent A 0.6 % (0-0.5); Immature Platelet Fraction Pct 11.7 % (0.9-11.2); Lymphocytes Absolute Auto 1.02 K/mm3 (0.9-3.2); Lymphocytes Percent Auto 20.5 % (18.3-44.2); Mean Corpuscular HGB Conc 31.9 g/dl (32-36); Mean Corpuscular Hemoglobin 32.3 pg (26-34); Mean Corpuscular Volume 101.4 fl (80-100); Mean Platelet Volume 12.9 fl (7.4-10.4); Monocytes Absolute Auto 0.3 K/mm3 (0.1-0.6); Monocytes Percent Auto 6.4 % (2.6-8.5); Neutrophils Absolute Auto 3.3 K/mm3 (1.3-6.7); Neutrophils Percent Auto 66.7 % (45.5-73.1); Platelet Count Result 89 k/mm3 (150-375); Red Blood Count 2.91 M/mm3 (4.2-5.4); Red Cell Distribution Width 12.4 % (11.5-14.5)
[2022-11-27 05:30] LABS: Alanine Aminotransferase 16 U/L (6-35); Albumin Level 3.2 g/dL (3.5-5.1); Alkaline Phosphatase 93 U/L (38-126); Anion Gap 6 mmol/L (8-16); Aspartate Amino Transferase 18 U/L (14-36); Bilirubin,Total 0.3 mg/dL (0.2-1.3); Blood Urea Nitrogen 52 mg/dL (7-17); Calcium 6.8 mg/dL (8.4-10.2); Carbon Dioxide 28 mmol/L (22-30); Chloride 102 mmol/L (98-107); Estimated CRCL calculation 6 ml/min; Estimated Glomerular Filt Rate 5; Glucose 182 mg/dL (65-110); Potassium 4.6 mmol/L (3.4-5.0); Sodium 136 mmol/L (137-145)
[2022-11-27 05:47] LABS: Vancomycin Random 18.3 ug/mL (10-20)
[2022-11-27 08:04] LABS: Glucose Point of Care 152 mg/dl (65-105)
[2022-11-27] MEDS: GABAPENTIN 400 MG CAPSULE PO ×3 (08:54→17:03)
[2022-11-27] MEDS: carvediloL 25 MG TABLET PO ×2 (08:54→17:03)
[2022-11-27] MEDS: NIFEdipine 30 MG TAB.ER.24 PO (08:54)
[2022-11-27] MEDS: SERTRALINE HCL 25 MG TABLET PO (08:55)
[2022-11-27] MEDS: APIXABAN 5 MG TABLET PO ×2 (08:55→17:03)
[2022-11-27] MEDS: PANTOPRAZOLE 40 MG TABLET PO (08:55)
[2022-11-27] MEDS: LORATADINE 10 MG TABLET PO (08:55)
[2022-11-27] MEDS: EPOETIN ALFA-EPBX 10,000 UNITS/ML VIAL 10000 UNITS IV PUSH (09:57)
--- NOTE | 2022-11-27 10:00 | P.PNNP_ITS ---
Progress Note: A&P Assessment and Plan (1) End stage renal disease: Code(s): N18.6 - End stage renal disease Status: Chronic Assessment and Plan: * HD today and continue T/T/S dialysis schedule while hospitalized * follow electrolytes, volume status, and clearance (2) Chest pain: Qualifiers: Chest pain type: unspecified Qualified Code(s): R07.9 - Chest pain, unspecified Code(s): R07.9 - Chest pain, unspecified Status: Acute Assessment and Plan: * resolved on its own * troponins and EKG noted * continue supportive therapy (3) Acute UTI: Code(s): N39.0 - Urinary tract infection, site not specified Status: Acute Assessment and Plan: * admission UA highly suggestive * urine culture with Enterococcus * 1/2 blood culture with gram positive cocci (contaminant?) * on antibiotics * follow cultures results (4) Chronic obstructive pulmonary disease: Code(s): J44.9 - Chronic obstructive pulmonary disease, unspecified Status: Acute Assessment and Plan: * appears compensated at this time * continue supplemental oxygen * continue home inhalesrs * follow respiratory status (5) Hypertension: Qualifiers: Hypertension type: renovascular hypertension Qualified Code(s): I15.0 - Renovascular hypertension Code(s): I10 - Essential (primary) hypertension Status: Chronic Assessment and Plan: * reasonable control at this time * resumed on home medications * follow trend of hemodynamics (6) Anemia: Code(s): D64.9 - Anemia, unspecified Status: Chronic Assessment and Plan: * due to ESRD * close to goal * Epogen with HD * follow trend of H/H (7) Insulin dependent type 2 diabetes mellitus: Code(s): E11.9 - Type 2 diabetes mellitus without complications; 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 Subjective Date/time seen: 11/27/22 10:00 Interval history: Follow-up for end stage renal disease on hemodialysis. Tolerating hemodialysis treatment at the time of my visit (seen on HD at ~ 9:48AM); resting comfortably currently; no other acute complaints voiced; no issues/events overnight or earlier today. Exam Narrative: General: elderly female in NAD Heart: normal S1 and S2; no rub Lungs: clear anteriorly; decreased at bases Abdomen: soft, nontender, nondistended, positive bowel sounds Extremities: no cyanosis or clubbing; no edema; s/p left BKA and right AKA Skin: warm and intact Objective Data Vital Signs Vital Signs: Vital Signs Temp Pulse Resp BP Pulse Ox O2 Del Method O2 Flow Rate 11/27/22 08:54 84 11/27/22 06:00 96.9 F L 61 16 171/47 H 98 11/27/22 04:00 63 11/27/22 00:00 65 11/26/22 20:00 71 11/27/22 01:30 98.4 F 63 20 118/45 L 97 11/26/22 20:00 100 Nasal Cannula 2 11/26/22 22:00 97.8 F 65 20 166/48 H 100 11/26/22 21:58 67 97 Nasal Cannula 2 11/26/22 16:02 69 11/26/22 12:03 67 11/26/22 17:18 83 11/26/22 14:00 96.9 F L 64 14 136/59 L 99 Intake/Outp
--- NOTE | 2022-11-27 10:00 | PM.PNNEP ---
Progress Note: A&P Assessment and Plan (1) End stage renal disease: Code(s): N18.6 - End stage renal disease Status: Chronic Assessment and Plan: HD today and continue T/T/S dialysis schedule while hospitalized follow electrolytes, volume status, and clearance (2) Chest pain: Qualifiers: Chest pain type: unspecified Qualified Code(s): R07.9 - Chest pain, unspecified Code(s): R07.9 - Chest pain, unspecified Status: Acute Assessment and Plan: resolved on its own troponins and EKG noted continue supportive therapy (3) Acute UTI: Code(s): N39.0 - Urinary tract infection, site not specified Status: Acute Assessment and Plan: admission UA highly suggestive urine culture with Enterococcus 1/2 blood culture with gram positive cocci (contaminant?) on antibiotics follow cultures results (4) Chronic obstructive pulmonary disease: Code(s): J44.9 - Chronic obstructive pulmonary disease, unspecified Status: Acute Assessment and Plan: appears compensated at this time continue supplemental oxygen continue home inhalesrs follow respiratory status (5) Hypertension: Qualifiers: Hypertension type: renovascular hypertension Qualified Code(s): I15.0 - Renovascular hypertension Code(s): I10 - Essential (primary) hypertension Status: Chronic Assessment and Plan: reasonable control at this time resumed on home medications follow trend of hemodynamics (6) Anemia: Code(s): D64.9 - Anemia, unspecified Status: Chronic Assessment and Plan: due to ESRD close to goal Epogen with HD follow trend of H/H (7) Insulin dependent type 2 diabetes mellitus: Code(s): E11.9 - Type 2 diabetes mellitus without complications; 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 Subjective Date/time seen: 11/27/22 10:00 Interval history: Follow-up for end stage renal disease on hemodialysis. Tolerating hemodialysis treatment at the time of my visit (seen on HD at ~ 9:48AM); resting comfortably currently; no other acute complaints voiced; no issues/events overnight or earlier today. Exam Narrative: General: elderly female in NAD Heart: normal S1 and S2; no rub Lungs: clear anteriorly; decreased at bases Abdomen: soft, nontender, nondistended, positive bowel sounds Extremities: no cyanosis or clubbing; no edema; s/p left BKA and right AKA Skin: warm and intact Objective Data Vital Signs Vital Signs: Vital Signs Temp Pulse Resp BP Pulse Ox O2 Del Method O2 Flow Rate 11/27/22 08:54 84 11/27/22 06:00 96.9 F L 61 16 171/47 H 98 11/27/22 04:00 63 11/27/22 00:00 65 11/26/22 20:00 71 11/27/22 01:30 98.4 F 63 20 118/45 L 97 11/26/22 20:00 100 Nasal Cannula 2 11/26/22 22:00 97.8 F 65 20 166/48 H 100 11/26/22 21:58 67 97 Nasal Cannula 2 11/26/22 16:02 69 11/26/22 12:03 67 11/26/22 17:18 83 11/26/22 14:00 96.9 F L 64 14 136/59 L 99 Intake/Output Intake/Output: Intake & Output 11/24/22 11/25/22 11/26/22 11/27/22 23:59 23:59 23:59 23:59 Intake Total 100 1230 626 340 Output Total 0 240 Balance 100 1230 386 340 Meds/Results Medications: Active Medications Generic Name Dose Route Start Last Admin Trade Name Freq PRN Reason Stop Dose Admin Apixaban 5 mg 11/25/22 09:00 11/27/22 08:55 Apixaban 5 Mg Tablet PO 5 mg BID KEMI Administration Carvedilol 25 mg 11/25/22 09:00 11/27/22 08:54 Carvedilol 25 Mg Tablet PO 25 mg BID KEMI Administration Dextrose 12.5 gm 11/24/22 23:59 Dextrose 50% 25 Gm/50 Ml Syringe IV PUSH PRN PRN Hypoglycemia Protocol Epoetin José-epbx 10,000
--- NOTE | 2022-11-27 10:31 | P.CDI_ITS ---
CDI Query Clarification Request Documented history of CHF. CHF noted in the assessment and plan. Please specify type and acuity of heart failure if known. * Acute * Chronic * Acute on Chronic * Unknown * Systolic * Diastolic * Combined Systolic and Diastolic * Unknown
--- NOTE | 2022-11-27 10:31 | WPDCDIQUERY2 ---
CDI Query Clarification Request Documented history of CHF. CHF noted in the assessment and plan. Please specify type and acuity of heart failure if known. Acute Chronic Acute on Chronic Unknown Systolic Diastolic Combined Systolic and Diastolic Unknown
[2022-11-27 11:55] LABS: Glucose Point of Care 123 mg/dl (65-105)
[2022-11-27] MEDS: AMOXICILLIN 500 MG CAPSULE PO (13:33)
--- NOTE | 2022-11-27 13:56 | PM.DS ---
DS: Admitting Diagnosis Discharge Date 11/27/22 Admitting Diagnosis Chest pain DS: Discharge Diagnosis Discharge Diagnosis (1) Acute UTI: Code(s): N39.0 - Urinary tract infection, site not specified Status: Acute Assessment and Plan: UA showing 2+ leukocyte esterase, 3-5 RBCs, greater than 100 wbc's and 4+ bacteria. The patient has a history of ESBL. The patient was initially started on piperacillin and tazobactam as this is sensitive to the ESBL. Zosyn discontinued. 11/26 Urine culture post Enterococcus species Blood culture positive for Staph epidermis and micrococcus species. This is likely contaminant. Vancomycin transition to amoxicillin to cover for Enterococcus species. (2) Diabetes: Code(s): E11.9 - Type 2 diabetes mellitus without complications Status: Acute Assessment and Plan: Accu-Cheks AC and HS with sliding scale insulin continue with long-acting insulin. Continue with gabapentin for the diabetic neuropathy. Patient has had multiple amputations. Hemoglobin A1c 7.1 (3) COPD (chronic obstructive pulmonary disease): Code(s): J44.9 - Chronic obstructive pulmonary disease, unspecified Status: Acute Assessment and Plan: No problems at this time. (4) CHF (congestive heart failure): Code(s): I50.9 - Heart failure, unspecified Status: Acute Assessment and Plan: Last echo on 11/12/2022. (5) HTN (hypertension): Code(s): I10 - Essential (primary) hypertension Status: Acute Assessment and Plan: Continue with Coreg, losartan and Procardia (6) End-stage renal disease (ESRD): Code(s): N18.6 - End stage renal disease Status: Acute Assessment and Plan: Patient has dialysis on Saturday. The patient stated that she had her dialysis today. Nephrology has been consulted. (7) Elevated troponin: Code(s): R77.8 - Other specified abnormalities of plasma proteins Status: Acute Assessment and Plan: Most likely secondary to her end-stage renal disease. The patient initially complained of chest pain but this is now resolved. (8) Chronic anemia: Code(s): D64.9 - Anemia, unspecified Status: Acute Assessment and Plan: The patient is at her baseline. (9) Anxiety with depression: Code(s): F41.8 - Other specified anxiety disorders Status: Acute Assessment and Plan: Continue with Zoloft Plan Anticoagulation continue with Eliquis. DS: Summary Hospital Course Hospital Course: This is a 72-year-old female that presents to the ED on 11/24/2022 with chief complaint of chest pain. She has a history of end-stage renal disease requiring dialysis, diabetes, CAD, hypertension, hyperlipidemia, and chronic anemia. Patient's chest x-ray revealed no significant change. Her troponins were slightly elevated but flat likely due to her end-stage renal disease. Her urine appeared to be infectious. UA showing 2+ leukocyte esterase, 3-5 rbc's and greater than 100 wbc's with 4+ bacteria. She has a history of ESBL and she was started on Zosyn that was sensitive to ESBL previously. Urine cultures came back positive for Enterococcus and she was put on vancomycin. He had 1 positive blood culture for Staph epidermidis and micrococcus species which were likely contaminants. Vancomycin transition to amoxicillin for her to continue total therapy of 5 days. Patient received dialysis during her stay her dialysis days are Saturday and Saturday. Patient's symptom of chest pain resolved. She is feeling much better and has no complaints at this time. She will be sent home with antibiotics and advised to continue her regularly scheduled dialysis appointments. Patient medically cleared for discharge. Time Spent with Patient Time attestation: Total time spent providing and/o
--- NOTE | 2022-11-27 15:25 | PC.NURSE ---
Called Kierra, patient's sister, to verify she will be home to let EMS inside upon arrival. Kierra stated she was home and will be for the rest of the day and night.
[2022-11-27 16:49] LABS: Glucose Point of Care 109 mg/dl (65-105)
== END 2022-11-27 18:10 | disposition home or self-care (01) ==
LOC: ANHED 17:55 → ANH3MEDSUR 23:42
PROVIDERS: Internal Medicine Nephrology; Nurse Practitioner; Admitting Provider Internal Medicine; Emergency Provider Emergency Medicine; PCP Internal Medicine; Visit Provider Internal Medicine Critical Care Medicine
DX: N39.0 Urinary tract infection, site not specified (principal); B95.2 Enterococcus as the cause of diseases classified elsewhere; B95.7 Other staphylococcus as the cause of diseases classified elsewhere; J44.9 Chronic obstructive pulmonary disease, unspecified; I13.2 Hypertensive heart and chronic kidney disease with heart failure and with stage 5 chronic kidney disease, or end stage renal disease; I50.9 Heart failure, unspecified; E11.22 Type 2 diabetes mellitus with diabetic chronic kidney disease; D63.1 Anemia in chronic kidney disease; N18.6 End stage renal disease; R77.8 Other specified abnormalities of plasma proteins; F41.8 Other specified anxiety disorders; I25.10 Atherosclerotic heart disease of native coronary artery without angina pectoris; Z95.1 Presence of aortocoronary bypass graft; Z66 Do not resuscitate; Z99.2 Dependence on renal dialysis; I15.0 Renovascular hypertension; I45.10 Unspecified right bundle-branch block; E78.5 Hyperlipidemia, unspecified; N25.0 Renal osteodystrophy; D69.6 Thrombocytopenia, unspecified; R94.31 Abnormal electrocardiogram [ECG] [EKG]; F17.210 Nicotine dependence, cigarettes, uncomplicated; Z79.01 Long term (current) use of anticoagulants; Z79.4 Long term (current) use of insulin; Z79.899 Other long term (current) drug therapy; Z89.431 Acquired absence of right foot; Z89.022 Acquired absence of left finger(s); Z89.512 Acquired absence of left leg below knee; Z89.511 Acquired absence of right leg below knee; Z83.3 Family history of diabetes mellitus
CPT/HCPCS: 36415; 71045; 80053; 80202; 81001; 82948; 83036; 83605; 83690; 83735; 84100; 84443; 84484; 85025; 85055; 85610; 85730; 86706; 86850; 86900; 86901; 87040; 87086; 87147; 87181; 87186; 87340; 93005; 96365; 96366; 96375; 99285; A9270; G0257; G0378; J0360; J1644; J1815; J2543; J3370; J7030; Q5105

== ENCOUNTER 2022-12-09 09:24 | Inpatient (IN) | payer MEDICARE, OTHER, SELFPAY ==
[2022-12-09] VITALS (51 sets, daily range): BP systolic 173–225; BP diastolic 50–108; PULSE 60–70; RESP 12–19; TEMP 36.7–37; O2SAT 92–100; BMI 34.9
--- NOTE | ~2022-12-09 | XR_ITS ---
EXAMINATION: XR chest 1V portable DATE: 12/09/2022 10:23 INDICATION: Chest pain. Shortness of breath. Cough. TECHNIQUE: A single frontal view of the chest was obtained. COMPARISON: Chest single view 11/20/2022, CT abdomen and pelvis 10/25/2021 FINDINGS: There are airspace opacities in left lower lung zone with mild elevation of left hemidiaphr agm. Kimi B-lines are noted, consistent mild pulmonary edema. No pleural effusion or pneumothorax. Cardiomegaly is noted. There are changes of coronary artery bypass grafting. A right internal jugular central venous catheter is seen with tip in the right atrium. IMPRESSION: 1. Mild pulmonary edema. 2. Airspace opacities in left lower lung zone, consistent with atelectasis or less likely pneumonia. 3. Cardiomegaly. Reviewed, dictated and finalized at location A. IMPRESSION: 1. Mild pulmonary edema. 2. Airspace opacities in left lower lung zone, consistent with atelectasis or l ess likely pneumonia. 3. Cardiomegaly.
--- NOTE | 2022-12-09 09:41 | ECG_ITS ---
Measurements Intervals [place] Rate: 65 P: 84 ND: 183 QRS: -87 QRSD: 149 T: 87 QT: 482 QTc: 502 Interpretive Statements SINUS RHYTHM RIGHT BUNDLE BRANCH BLOCK LEFT ANTERIOR FASCICULAR BLOCK CANNOT RULE OUT SEPTAL INFARCT, AGE INDETERMINATE BASELINE ARTIFACT- I, III, AVL, V2-V3, V5-V6 ABNORMAL ECG NO PREVIOUS ECG AVAILABLE FOR COMPARISON Electronically Signed On 12-09-2022 18:41:49 CDT by Fito Mcintosh D.O.
--- NOTE | 2022-12-09 09:52 | ED.CHESTPAIN ---
HPI - Chest Pain General Chief Complaint: Chest Pain Stated Complaint: chest pain Time Seen by Provider: 12/09/22 09:40 History of Present Illness HPI narrative: Patient is a 72-year-old female with a history of ESRD on dialysis Saturdays, COPD, CAD, diabetes presenting with shortness of breath. Patient states that she woke up this morning feeling short of breath with diffuse chest pain. States that she has had this before. She denies missing any dialysis treatments. States that she went yesterday. She denies fevers, lightheadedness, headache, abdominal pain, vomiting, diarrhea. Patient does make urine denies dysuria. Related Data Home Medications Medication Instructions Recorded Confirmed apixaban 5 mg tablet (Eliquis) 5 mg PO BID 11/03/19 11/24/22 carvedilol 25 mg tablet 25 mg PO BID 11/03/19 11/24/22 insulin degludec 100 unit/mL 35 unit subcut HS 11/03/19 11/24/22 subcutaneous solution (Tresiba U-100 Insulin) pravastatin 40 mg tablet 40 mg PO HS 11/03/19 11/24/22 sertraline 25 mg tablet 25 mg PO QAM 02/11/20 11/24/22 gabapentin 400 mg capsule 400 mg PO TID 10/09/21 11/24/22 losartan 100 mg tablet See Rx Instructions .Route .COMPLEX 10/09/21 11/24/22 cetirizine 10 mg tablet 10 mg PO DAILY 02/06/22 11/24/22 insulin aspart U-100 100 unit/mL 8 unit subcut TIDWMEAL 02/28/22 11/24/22 (3 mL) subcutaneous pen (Novolog FlexPen U-100 Insulin aspart) pantoprazole 40 mg tablet,delayed 40 mg PO DAILY Heartburn 02/28/22 11/24/22 release nifedipine 30 mg tablet,extended 30 mg PO Q12H 11/12/22 11/24/22 release 24 hr (Procardia XL) gabapentin 400 mg capsule 400 mg PO TID 12/09/22 12/09/22 insulin aspart U-100 100 unit/mL 10 unit subcut TID 12/09/22 12/09/22 (3 mL) subcutaneous pen (Novolog FlexPen U-100 Insulin aspart) losartan 100 mg tablet 100 mg PO DAILY 12/09/22 12/09/22 nifedipine 30 mg tablet,extended 30 mg PO DAILY 12/09/22 12/09/22 release Allergies Allergy/AdvReac Type Severity Reaction Status Date / Time No Known Allergies Allergy Verified 12/10/22 09:16 Review of Systems Review of Systems: All systems reviewed & are unremarkable except as noted in HPI and below PMFSH Past Medical History Medical History Anxiety with depression Arterial vascular disease Chronic anemia Coronary artery disease COVID Digital arterial occlusive disease End-stage renal disease on hemodialysis Saturday, , Saturday. 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 Hemoglobin A1c was 6.8% in February 2020. Osteomyelitis Renal osteodystrophy Thrombocytopenia Surgical History Surgical History Amputation of right forefoot Right 4th and 5th ray amputation in 04/2017. Right foot transmetatarsal amputation with partial fasciotomy due to wet gangrene, osteomyelitis, and necrotizing fasciitis in May 2017. 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 History of below-knee amputation of both lower extremities Left [id number] amputation in 2017. Right cofya-[id number]-[id number] amputation in 02/2020. 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 History of vascular surgery Right lower extremity stents in March 2017. Left lower extremity stent in 2014. Family History Family History Mother Diabetes mellitus Father Lung cancer Sibling Diabetes mellitus Social History Social History (Reviewe
[2022-12-09 09:59] LABS: Basophils Percent Auto 0.5 % (0.2-1.2); Eosinophils Absolute Auto 0.2 K/mm3 (0-0.3); Hematocrit 31.7 % (42.0-52.0); Hemoglobin 9.8 g/dL (14.0-18.0); Immature Granulocyte Absolute 0.03 K/mm3 (0.00-0.031); Immature Granulocyte Percent A 0.5 % (0-0.5); Lymphocytes Absolute Auto 1.02 K/mm3 (0.9-3.2); Lymphocytes Percent Auto 16.9 % (18.3-44.2); Mean Corpuscular HGB Conc 30.9 g/dl (32-36); Mean Corpuscular Hemoglobin 31.2 pg (26-34); Mean Platelet Volume 12.4 fl (7.4-10.4); Monocytes Absolute Auto 0.4 K/mm3 (0.1-0.6); Monocytes Percent Auto 7.1 % (2.6-8.5); Neutrophils Absolute Auto 4.3 K/mm3 (1.3-6.7); Platelet Count Result 107 k/mm3 (150-375); Red Blood Count 3.14 M/mm3 (4.6-6.20); Red Cell Distribution Width 13.1 % (11.5-14.5); White Blood Count 6.1 K/mm3 (4.5-10.0)
[2022-12-09 10:09] LABS: INR 1.2
[2022-12-09 10:10] LABS: Partial Thromboplastin Time 36.4 SECONDS (22.3-36.8)
[2022-12-09] MEDS: ALBUTEROL SULFATE NEB 2.5 MG/3 ML INH 5 MG INHALATION (10:11)
[2022-12-09] MEDS: IPRATROPIUM BR 0.02% INH SOLN 0.5 MG/2.5 ML VIAL INHALATION ×3 (10:11→20:05)
[2022-12-09 10:31] LABS: Troponin I 0.362 ng/mL (0.000-0.034)
[2022-12-09 10:47] LABS: Influenza A QL RT-PCR Negative (Negative); Influenza B QL RT-PCR Negative (Negative); SARS-CoV-2 RNA PCR Negative (Negative)
[2022-12-09 11:16] LABS: Alanine Aminotransferase 16 U/L (6-35); Albumin Level 3.3 g/dL (3.5-5.1); Alkaline Phosphatase 130 U/L (38-126); Anion Gap 0 mmol/L (8-16); Aspartate Amino Transferase 20 U/L (14-36); Bilirubin,Total 0.4 mg/dL (0.2-1.3); Blood Urea Nitrogen 42 mg/dL (7-17); Calcium 7.3 mg/dL (8.4-10.2); Carbon Dioxide 31 mmol/L (22-30); Chloride 99 mmol/L (98-107); Estimated CRCL calculation 6 ml/min; Estimated Glomerular Filt Rate 6; Glucose 284 mg/dL (65-110); Lipase 241 U/L (23-300); Potassium 4.9 mmol/L (3.4-5.0); Sodium 130 mmol/L (137-145)
[2022-12-09 13:20] LABS: Troponin I 0.416 ng/mL (0.000-0.034)
[2022-12-09] MEDS: ALBUTEROL SULFATE NEB 2.5 MG/3 ML INH INHALATION ×2 (14:08→20:05)
[2022-12-09] MEDS: FUROSEMIDE INJ 40 MG/4 ML VIAL IV PUSH (14:41)
--- NOTE | 2022-12-09 15:43 | ADMGEN ---
This patient, Tawana Prado, was admitted to 3 [facility] Surg Room 327-01 @ 1530. Patient/family oriented to hospital policies and general routines including ID bracelet, bed and alarms, visiting hours, pain management, procedures, bathroom and other care routines, personal items, smoking policy, room service/diet, and visiting hours. Information on how to activate the Rapid Response Team has been discussed. Patient/Family are encouraged to report perceived risks to care and to ask questions if they do not understand what they are told or what they should do.
--- NOTE | 2022-12-09 15:46 | PM.IMHP ---
H&P: HPI History of Present Illness Date/Time: 12/09/22 15:46 Chief Complaint: chest pain Narrative: ED-HPI narrative: Patient is a 72-year-old female with a history of ESRD on dialysis Saturdays, COPD, CAD, diabetes presenting with shortness of breath.? Patient states that she woke up this morning feeling short of breath with diffuse chest pain.? States that she has had this before.? She denies missing any dialysis treatments.? States that she went yesterday.? She denies fevers, lightheadedness, headache, abdominal pain, vomiting, diarrhea.? Patient does make urine denies dysuria. patient is 72 y/o female with history of ESRD on HD Saturday, and Saturday presented with C/O of shortness of breath and CP, patient tropes are elevated and chest x-ray suspecious for volume overload, discuss with ER physician and senior hr business partner, most likely volume overload, will give lasix and may need HD, will monitor. Patient admitted as observation status Review of Systems Review of Systems: All systems reviewed & are unremarkable except as noted in HPI and below PMFSH Past Medical History Medical History (Updated 12/10/22 @ 14:02 by Vanita El MD) Anxiety with depression Arterial vascular disease Chronic anemia Coronary artery disease COVID Digital arterial occlusive disease End-stage renal disease on hemodialysis Saturday, , Saturday. 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 Hemoglobin A1c was 6.8% in February 2020. Osteomyelitis Renal osteodystrophy Thrombocytopenia Surgical History Surgical History (Updated 12/10/22 @ 09:16 by Shabnam Schwartz) Amputation of right forefoot Right 4th and 5th ray amputation in 04/2017. Right foot transmetatarsal amputation with partial fasciotomy due to wet gangrene, osteomyelitis, and necrotizing fasciitis in May 2017. 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 History of below-knee amputation of both lower extremities Left qwyqy-etq-auav amputation in 2017. Right yscul-rxv-qmbk amputation in 02/2020. 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 History of vascular surgery Right lower extremity stents in March 2017. Left lower extremity stent in 2014. Family History Family History (System 12/10/22 @ 09:16 by Shabnam Schwartz) Mother Diabetes mellitus Father Lung cancer Sibling Diabetes mellitus Social History Social History (System 12/10/22 @ 09:16 by Shabnam Schwartz) Social History: The patient currently lives with her sister. She is . She is retired. She has a son and a daughter. Surrogate medical decision maker: Kierra Blanton (sister) or Cyndi Blanton (daughter). Code status: DNR Smoking packs per day: 0.5 Smoking cigarettes per day: 10.0 Years smoked: 40 Smoking pack-years: 20.00 Smoking status: Current every day smoker Tobacco type: cigarettes Second hand tobacco smoke exposure: Yes Alcohol intake: never Drinks per week: 1 Alcohol use details: Previous social drinker. Substance use: never Substance use type: does not use Lack of Transportation: No Lack of Food: Never True Current Housing: I Have Housing Concerned About Future Housing: No Difficulty Paying Gas/Electric Bills: No Difficulty Paying for Meds: No Currently Unemployed: No Education: Don't Know Difficulty w/ Childcare or Family Care: No Living arrangements: with family Additional living arrangements comments: Lives in [place]. Sister lives with her. Spiritual care conc
[2022-12-09 20:14] LABS: Glucose Point of Care 197 mg/dl (65-105)
[2022-12-09 20:34] LABS: Troponin I 0.434 ng/mL (0.000-0.034)
[2022-12-09] MEDS: HEPARIN SODIUM 5,000 UNITS/ML VIAL 5000 UNITS SUB-Q (20:48)
[2022-12-10] VITALS (29 sets, daily range): BP systolic 135–199; BP diastolic 52–80; PULSE 56–70; RESP 13–18; TEMP 0–36.9; O2SAT 91–96
[2022-12-10] MEDS: IPRATROPIUM BR 0.02% INH SOLN 0.5 MG/2.5 ML VIAL INHALATION ×4 (02:02→22:21)
[2022-12-10] MEDS: ALBUTEROL SULFATE NEB 2.5 MG/3 ML INH INHALATION ×4 (02:02→22:21)
[2022-12-10 06:14] LABS: Basophils Percent Auto 0.6 % (0.2-1.2); Eosinophils Absolute Auto 0.2 K/mm3 (0-0.3); Eosinophils Percent Auto 3.9 % (0-4.4); Hematocrit 30.4 % (37.0-47.0); Hemoglobin 9.5 g/dL (12.0-15.0); Immature Granulocyte Absolute 0.03 K/mm3 (0.00-0.031); Immature Granulocyte Percent A 0.6 % (0-0.5); Lymphocytes Absolute Auto 1.37 K/mm3 (0.9-3.2); Lymphocytes Percent Auto 26.4 % (18.3-44.2); Mean Corpuscular HGB Conc 31.3 g/dl (32-36); Mean Corpuscular Hemoglobin 31.4 pg (26-34); Mean Corpuscular Volume 100.3 fl (80-100); Mean Platelet Volume 12.8 fl (7.4-10.4); Monocytes Absolute Auto 0.4 K/mm3 (0.1-0.6); Monocytes Percent Auto 7.9 % (2.6-8.5); Neutrophils Absolute Auto 3.1 K/mm3 (1.3-6.7); Neutrophils Percent Auto 60.6 % (45.5-73.1); Platelet Count Result 104 k/mm3 (150-375); Red Blood Count 3.03 M/mm3 (4.2-5.4); White Blood Count 5.2 K/mm3 (4.5-10.0)
[2022-12-10 06:18] LABS: Alanine Aminotransferase 13 U/L (6-35); Albumin Level 3.2 g/dL (3.5-5.1); Alkaline Phosphatase 78 U/L (38-126); Anion Gap 6 mmol/L (8-16); Aspartate Amino Transferase 19 U/L (14-36); Bilirubin,Total 0.4 mg/dL (0.2-1.3); Blood Urea Nitrogen 48 mg/dL (7-17); Calcium 7.2 mg/dL (8.4-10.2); Carbon Dioxide 31 mmol/L (22-30); Chloride 101 mmol/L (98-107); Estimated CRCL calculation 6 ml/min; Estimated Glomerular Filt Rate 5; Glucose 125 mg/dL (65-110); Magnesium 2.3 mg/dL (1.6-2.3); Phosphorus 6.3 mg/dL (2.5-4.5); Potassium 4.2 mmol/L (3.4-5.0); Sodium 138 mmol/L (137-145)
[2022-12-10 06:55] LABS: Hepatitis B Surface Antigen Negative (Negative)
[2022-12-10 07:14] LABS: Hepatitis B Surface Anti Res Positive
[2022-12-10 07:54] LABS: Glucose Point of Care 135 mg/dl (65-105)
[2022-12-10] MEDS: HEPARIN SODIUM 5,000 UNITS/ML VIAL 5000 UNITS SUB-Q ×2 (09:20→21:22)
[2022-12-10] MEDS: GABAPENTIN 400 MG CAPSULE PO ×3 (09:29→17:50)
[2022-12-10 11:29] LABS: Glucose Point of Care 188 mg/dl (65-105)
[2022-12-10] MEDS: INSULIN ASPART (*BKC) 100 UNITS/ML 10 UNITS SUB-Q ×2 (12:30→17:52)
--- NOTE | 2022-12-10 14:06 | WPDPN ---
Progress Note: A&P Assessment and Plan (1) End-stage renal disease on hemodialysis: Code(s): N18.6 - End stage renal disease; Z99.2 - Dependence on renal dialysis Status: Acute Assessment and Plan: ED-HPI narrative: Patient is a 72-year-old female with a history of ESRD on dialysis Saturdays, COPD, CAD, diabetes presenting with shortness of breath.? Patient states that she woke up this morning feeling short of breath with diffuse chest pain.? States that she has had this before.? She denies missing any dialysis treatments.? States that she went yesterday.? She denies fevers, lightheadedness, headache, abdominal pain, vomiting, diarrhea.? Patient does make urine denies dysuria. 12/10/2022 interval history: patient is 72 y/o female with history of ESRD on HD Saturday, and Saturday presented with C/O of shortness of breath and CP, patient tropes are elevated and chest x-ray suspecious for volume overload, discuss with ER physician and business ethics professor, most likely volume overload, will give lasix and may need HD, also will consult supervisor telephone clerks for further revaluation and recommendations. patient is scheduled for dialysis today. (2) Chronic anemia: Code(s): D64.9 - Anemia, unspecified Status: Acute Assessment and Plan: Most likely secondary to chronic kidney disease seen by Nephrology and further recommendation to follow (3) Shortness of breath at rest: Code(s): R06.02 - Shortness of breath Status: Acute Assessment and Plan: Patient with history of end-stage renal disease on hemodialysis suspect volume overload patient does urinate will give the patient Lasix patient may need additional dialysis will discuss with business ethics professor Subjective Date/time seen: 12/10/22 14:06 Interval history: ED-HPI narrative: Patient is a 72-year-old female with a history of ESRD on dialysis Saturdays, COPD, CAD, diabetes presenting with shortness of breath.? Patient states that she woke up this morning feeling short of breath with diffuse chest pain.? States that she has had this before.? She denies missing any dialysis treatments.? States that she went yesterday.? She denies fevers, lightheadedness, headache, abdominal pain, vomiting, diarrhea.? Patient does make urine denies dysuria. 12/10/2022 interval history: patient is 72 y/o female with history of ESRD on HD Saturday, and Saturday presented with C/O of shortness of breath and CP, patient tropes are elevated and chest x-ray suspecious for volume overload, discuss with ER physician and business ethics professor, most likely volume overload, will give lasix and may need HD, also will consult supervisor telephone clerks for further revaluation and recommendations. patient is scheduled for dialysis today. Review of Systems Review of Systems: All systems reviewed & are unremarkable except as noted in HPI and below Exam Narrative: Morbidly obese Patient is comfortable, NAD HEENT: eyes are clear and none icteric LUNGS: Bilateral fair air entry with rales and rhonchi HEART: RR S1S2 ABD: Distended Lower extremities: no edema SKIN: nonjaundiced Neuro: grossly intact. Objective Data Vital Signs Vital Signs: Vital Signs - 24 hr 12/09/22 14:10 12/09/22 14:10 12/09/22 14:15 Temperature Pulse Rate 63 61 65 Respiratory Rate 17 14 16 Blood Pressure Pulse Oximetry 100 100 Oxygen Delivery Nasal Cannula Oxygen Flow Rate 1 Fraction of Inspired Oxygen 24 12/09/22 14:16 12/09/22 14:30 12/09/22 14:45 Temperature Pulse Rate 63 70 62 Respiratory Rate 15 19 13 Blood Pressure 208/73 H Pulse Oximetry 100 99 98 Oxygen Delivery Oxygen Flow Rate Fraction of Inspired Oxygen 12/09/22 15:43 12/09/22 15:32 12/09/22 16:00 Temperature 98.2 F Pulse Rate 61 63 Respiratory Rate 13 Blood Pressure 194/71 H Pulse Oximetry 97 97 Oxygen Delivery Nasal Cannula Oxygen Flow Rate 1 Fraction of Inspir
--- NOTE | 2022-12-10 15:00 | PM.CNNEP ---
Assessment and Plan Assessment and plan (1) End stage renal disease: Status: Chronic Assessment and Plan: plan HD tomorrow and continue T/T/S dialysis schedule while hospitalized follow electrolytes, volume status, and clearance (2) Volume overload: Code(s): E87.70 - Fluid overload, unspecified Status: Acute Assessment and Plan: as noted by exam and imaging studies on admision dry ultrafiltration today for excess fluid removal plan HD tomorrow for further fluid removal (3) Chronic obstructive pulmonary disease: Status: Acute Assessment and Plan: partly playing a role with shortness of breath and hypoxia continue supplemental oxygen PRN continue home inhalers and nebulizer treatments follow respiratory status (4) Hypertension: Qualifiers: Qualified Code(s): I15.0 - Renovascular hypertension Status: Chronic Assessment and Plan: reasonable control at this time resumed on home medications follow trend of hemodynamics (5) Anemia: Status: Chronic Assessment and Plan: due to ESRD close to goal Epogen with HD follow trend of H/H (6) Insulin dependent type 2 diabetes mellitus: Status: Chronic Assessment and Plan: follow accuchecks glycemic control per hospitalists I will continue follow the patient with you while she remains hospitalized make further recommendations during her hospital course. Thank you for allowing me to participate in the care of this patient. History of Present Illness Reason for Consult Consult date: 12/10/22 Reason for consult: end stage renal disease Chief Complaint Chief complaint: Respiratory failure with hypoxia History of Present Illness Narrative: The patient is a 72-year-old female with a past medical history as outlined below who presented to [facility] Emergency Room with complaints of shortness of breath. The patient reports she woke up early on the morning of admission feeling short of breath in association with diffuse chest pain. The patient reports that she has had symptoms like this before and usually they resolve with just supportive therapy. She reported no other subjective symptoms with regard to fevers, chills, lightheadedness, headache, abdominal pain, vomiting, diarrhea, or palpitations. Given the persistence of the symptoms, she presented to the ER for further assessment Workup and evaluation emergency room demonstrated the patient be hemodynamically stable but in mild respiratory distress. Routine blood test demonstrated labs consistent with her known history of end-stage renal disease with no significant electrolyte abnormalities and her CBC demonstrated labs consistent with anemia of chronic kidney disease. Her chest x-ray was somewhat suggestive of mild volume overload but was also noted on physical exam that she had significant wheezing arguing in favor possible reactive airway disease or COPD exacerbation. She was given diuretics on the assumption of mild volume and started on nebulizer treatments as well as supplemental oxygen with subsequent admission to the hospital for further evaluation Since her admission, her respiratory status seems to be doing somewhat better with current interventions today. Renal consultation was requested due to her end-stage renal disease. The patient normally dialyzes on a Saturday, , Saturday dialysis schedule at [facility] under the care of Dr. Clarke. She usually does reasonably well with her dialysis treatments although her compliance with dialysis in general is not very good as noted by her recurrent admissions here at [facility] for volume overload and hyperkalemia. According to the patient, she had her dialysis treatment on Saturday (12/08/22). She has no critical electrolyte abnormalities based on her recent blood work but as already mentioned, her volume status is somewhat of
--- NOTE | 2022-12-10 15:08 | PCWOUND ---
Patient currently in dialysis, will assess patient tomorrow 12/11/22.
[2022-12-10 17:51] LABS: Glucose Point of Care 166 mg/dl (65-105)
[2022-12-10 20:44] LABS: Glucose Point of Care 190 mg/dl (65-105)
[2022-12-11] VITALS (28 sets, daily range): BP systolic 122–179; BP diastolic 59–89; PULSE 57–98; RESP 14–18; TEMP 35.7–37.1; O2SAT 91–97
--- NOTE | 2022-12-11 04:56 | PCRCNOTE ---
Pt refused 0200 updraft treatment due to wanting sleep. RT instructed to call RN if short of breath. RN to RT and RT to patient.
[2022-12-11 06:40] LABS: Hematocrit 33.7 % (37.0-47.0); Hemoglobin 10.6 g/dL (12.0-15.0); Mean Corpuscular HGB Conc 31.5 g/dl (32-36); Mean Corpuscular Hemoglobin 31.9 pg (26-34); Mean Corpuscular Volume 101.5 fl (80-100); Mean Platelet Volume 12.8 fl (7.4-10.4); Platelet Count Result 119 k/mm3 (150-375); Red Blood Count 3.32 M/mm3 (4.2-5.4); Red Cell Distribution Width 12.9 % (11.5-14.5); White Blood Count 5.4 K/mm3 (4.5-10.0)
[2022-12-11 07:05] LABS: Albumin Level 3.6 g/dL (3.5-5.1); Anion Gap 7 mmol/L (8-16); Blood Urea Nitrogen 57 mg/dL (7-17); Calcium 7.6 mg/dL (8.4-10.2); Carbon Dioxide 28 mmol/L (22-30); Chloride 101 mmol/L (98-107); Estimated CRCL calculation 5 ml/min; Estimated Glomerular Filt Rate 4; Glucose 144 mg/dL (65-110); Magnesium 2.3 mg/dL (1.6-2.3); Phosphorus 6.8 mg/dL (2.5-4.5); Potassium 5.1 mmol/L (3.4-5.0); Sodium 136 mmol/L (137-145)
[2022-12-11 07:20] LABS: Glucose Point of Care 157 mg/dl (65-105)
[2022-12-11] MEDS: GABAPENTIN 400 MG CAPSULE PO ×3 (08:26→16:51)
[2022-12-11] MEDS: HEPARIN SODIUM 5,000 UNITS/ML VIAL 5000 UNITS SUB-Q ×2 (08:30→21:14)
[2022-12-11] MEDS: ALBUTEROL SULFATE NEB 2.5 MG/3 ML INH INHALATION ×3 (08:42→21:28)
[2022-12-11] MEDS: IPRATROPIUM BR 0.02% INH SOLN 0.5 MG/2.5 ML VIAL INHALATION ×3 (08:42→21:28)
--- NOTE | 2022-12-11 10:21 | PM.PNNEP ---
Progress Note: A&P Assessment and Plan (1) End stage renal disease: Code(s): N18.6 - End stage renal disease Status: Chronic Assessment and Plan: HD today and continue T/T/S dialysis schedule while hospitalized follow electrolytes, volume status, and clearance (2) Volume overload: Code(s): E87.70 - Fluid overload, unspecified Status: Acute Assessment and Plan: as evidenced by exam and CXR on admission s/p dry ultrafiltration with 3L fluid removal HD today for further fluid removal (3) Chronic obstructive pulmonary disease: Code(s): J44.9 - Chronic obstructive pulmonary disease, unspecified Status: Acute Assessment and Plan: playing some role with shortness of breath/hypoxia evidence of wheezing on presentation continue PRN supplemental oxygen continue nebulizer treatments/home inhalers follow respiratory status (4) Hypertension: Status: Chronic Assessment and Plan: can be quite erratic at times resumed on home medications follow trend of hemodynamics (5) Anemia: Code(s): D64.9 - Anemia, unspecified Status: Chronic Assessment and Plan: due to ESRD close to goal Epogen with HD follow trend of H/H (6) Insulin dependent type 2 diabetes mellitus: Code(s): E11.9 - Type 2 diabetes mellitus without complications; Z79.4 - correction (current) use of insulin Status: Chronic Assessment and Plan: follow accuchecks glycemic control per hospitalists Will continue to follow. Subjective Date/time seen: 12/11/22 10:21 Interval history: Follow-up for end stage renal disease on hemodialysis. Tolerating dialysis treatment at the time of my visit (seen on HD at 10:10AM); breathing/respiratory status appears stable if not improved; no apparent distress noted; no issues/events overnight or earlier this morning. Exam Narrative: General: elderly female in NAD Heart: normal S1 and S2; no rub Lungs: clear anteriorly; decreased at bases Abdomen: soft, nontender, nondistended, positive bowel sounds Extremities: no cyanosis or clubbing; no edema; s/p left BKA and right AKA Skin: warm and dry Objective Data Vital Signs Vital Signs: Vital Signs Temp Pulse Resp BP Pulse Ox O2 Del Method 12/11/22 10:20 62 170/69 H 12/11/22 10:00 63 138/63 12/11/22 09:40 60 169/67 H 12/11/22 09:29 63 169/60 H 12/11/22 09:20 98.7 F 67 18 179/59 H 12/11/22 08:00 60 12/11/22 09:00 84 16 12/11/22 08:51 92 Room Air 12/11/22 08:44 80 16 12/11/22 05:44 97.2 F L 61 14 179/64 H 95 12/11/22 04:00 63 12/11/22 00:00 63 12/10/22 20:00 66 12/10/22 22:31 63 92 Room Air 12/10/22 22:30 67 16 12/10/22 22:21 63 18 12/10/22 21:36 98.2 F 66 13 158/60 H 93 12/10/22 17:30 97.7 F 64 16 176/78 H 12/10/22 17:17 69 158/79 H 12/10/22 17:00 69 172/56 H 12/10/22 16:40 67 151/71 H 12/10/22 16:20 64 159/71 H 12/10/22 16:00 68 135/67 12/10/22 15:40 67 139/61 12/10/22 15:20 66 137/52 L 12/10/22 15:00 66 176/62 H 12/10/22 14:45 65 199/80 H 12/10/22 14:35 98.5 F 69 17 191/78 H 12/10/22 16:00 67 12/10/22 14:21 68 16 12/10/22 14:11 91 Room Air 12/10/22 14:07 64 16 Intake/Output Intake/Output: Intake & Output 12/08/22 12/09/22 12/10/22 12/11/22 23:59 23:59 23:59 23:59 Intake Total 722 253 6399 Output Total 3475 Balance 640 -6581 1104 Meds/Results Medications: Active Medications Generic Name Dose Route Start Last Admin Trade Name Freq PRN Reason Stop Dose Admin Albuterol 2.5 mg 12/09/22 14:00 12/11/22 08:42 Albuterol Sulfate Neb 2.5 Mg/3 Ml Inh INHALATION 2.5 mg Q6HRT KEMI Administration Dextrose 12.5 gm 12/09/22 18:30 Dextrose 50% 25 Gm/50 Ml Syringe IV PUSH
--- NOTE | 2022-12-11 10:21 | P.PNNP_ITS ---
Progress Note: A&P Assessment and Plan (1) End stage renal disease: Code(s): N18.6 - End stage renal disease Status: Chronic Assessment and Plan: * HD today and continue T/T/S dialysis schedule while hospitalized * follow electrolytes, volume status, and clearance (2) Volume overload: Code(s): E87.70 - Fluid overload, unspecified Status: Acute Assessment and Plan: * as evidenced by exam and CXR on admission * s/p dry ultrafiltration with 3L fluid removal * HD today for further fluid removal (3) Chronic obstructive pulmonary disease: Code(s): J44.9 - Chronic obstructive pulmonary disease, unspecified Status: Acute Assessment and Plan: * playing some role with shortness of breath/hypoxia * evidence of wheezing on presentation * continue PRN supplemental oxygen * continue nebulizer treatments/home inhalers * follow respiratory status (4) Hypertension: Status: Chronic Assessment and Plan: * can be quite erratic at times * resumed on home medications * follow trend of hemodynamics (5) Anemia: Code(s): D64.9 - Anemia, unspecified Status: Chronic Assessment and Plan: * due to ESRD * close to goal * Epogen with HD * follow trend of H/H (6) Insulin dependent type 2 diabetes mellitus: Code(s): E11.9 - Type 2 diabetes mellitus without complications; Z79.4 - medical terminologist (current) use of insulin Status: Chronic Assessment and Plan: * follow accuchecks * glycemic control per hospitalists Will continue to follow. Subjective Date/time seen: 12/11/22 10:21 Interval history: Follow-up for end stage renal disease on hemodialysis. Tolerating dialysis treatment at the time of my visit (seen on HD at 10:10AM); breathing/respiratory status appears stable if not improved; no apparent distress noted; no issues/events overnight or earlier this morning. Exam Narrative: General: elderly female in NAD Heart: normal S1 and S2; no rub Lungs: clear anteriorly; decreased at bases Abdomen: soft, nontender, nondistended, positive bowel sounds Extremities: no cyanosis or clubbing; no edema; s/p left BKA and right AKA Skin: warm and dry Objective Data Vital Signs Vital Signs: Vital Signs Temp Pulse Resp BP Pulse Ox O2 Del Method 12/11/22 10:20 62 170/69 H 12/11/22 10:00 63 138/63 12/11/22 09:40 60 169/67 H 12/11/22 09:29 63 169/60 H 12/11/22 09:20 98.7 F 67 18 179/59 H 12/11/22 08:00 60 12/11/22 09:00 84 16 12/11/22 08:51 92 Room Air 12/11/22 08:44 80 16 12/11/22 05:44 97.2 F L 61 14 179/64 H 95 12/11/22 04:00 63 12/11/22 00:00 63 12/10/22 20:00 66 12/10/22 22:31 63 92 Room Air 12/10/22 22:30 67 16 12/10/22 22:21 63 18 12/10/22 21:36 98.2 F 66 13 158/60 H 93 12/10/22 17:30 97.7 F 64 16 176/78 H 12/10/22 17:17 69 158/79 H 12/10/22 17:00 69 172/56 H 12/10/22 16:40 67 151/71 H 12/10/22 16:20 64 159/71 H 12/10/22 16:00 68 135/67 12/10/22 15:40 67 139/61 12/10/22 15:20 66 137/52 L 12/10/22 15:00 66 176/62 H
[2022-12-11] MEDS: EPOETIN ALFA-EPBX 2,000 UNITS/ML VIAL 2000 UNITS IV PUSH (11:36)
[2022-12-11 11:43] LABS: Glucose Point of Care 183 mg/dl (65-105)
[2022-12-11] MEDS: EPOETIN ALFA-EPBX 4,000 UNITS/ML VIAL 8000 UNITS IV PUSH (11:47)
--- NOTE | 2022-12-11 12:14 | PM.CNCAR ---
Assessment and Plan Assessment and plan (1) Elevated troponin: Code(s): R77.8 - Other specified abnormalities of plasma proteins Status: Acute Assessment and Plan: Mildly elevated troponins. EKG shows some chronic ST and T changes. Likely not ACS but troponinemia related to her CHF, hypertension and end-stage renal disease. She did have some chest discomfort on admission which be angina related to her severe hypertension and CHF, but she also has some chest wall tenderness. --follow-up with her usual montessori lead teacher, Dr. Blackwood (2) Coronary artery disease: Code(s): I25.10 - Atherosclerotic heart disease of [place] coronary artery without angina pectoris Status: Acute Assessment and Plan: History of CAD and CABG in 2019. Negative Lexiscan in November 2022. --continue Eliquis and pravastatin (3) Acute diastolic CHF (congestive heart failure): Code(s): I50.31 - Acute diastolic (congestive) heart failure Status: Acute Assessment and Plan: Acute on chronic diastolic heart failure, likely related to volume overload and end-stage renal disease. --volume control through dialysis --blood pressure control (4) Hypertension: Qualifiers: Hypertension type: renovascular hypertension Qualified Code(s): I15.0 - Renovascular hypertension Code(s): I10 - Essential (primary) hypertension Status: Chronic Assessment and Plan: Blood pressure still running high. --continue nifedipine, losartan, carvedilol --blood pressure does not improve may need the addition of hydralazine or other blood pressure lowering agent (5) End stage renal disease: Code(s): N18.6 - End stage renal disease Status: Chronic Assessment and Plan: Followed by Dr. Pereira. History of Present Illness History of Present Illness Consult date/time: 12/11/22 12:14 Reason For Visit: Respiratory failure with hypoxia Narrative: Tawana Prado is a 72-year-old female whom we are asked to see at the request of Dr. El for advice and opinion regarding her elevated troponins and chest pain, in consultation. She usually sees Dr. Cass Blackwood for her CAD and h/o CABG. She is a dialysis patient and has lower extremity amputations. She takes Eliquis chronically (for vascular disease? ). Ms. Conklin felt fine over the w/e but awoke on 12/09/2022 complaining of shortness of breath and chest discomfort. She felt a strong heart ache in the substernal area which lasted approximately 2 hours. When she came to the emergency room, her BP was 215/94. She required O2 and she appeared to be volume overloaded. She has been dialyzed since then and her discomfort and shortness of breath have been relieved. She states that she has had this discomfort before but can not give me any specifics, though apparently none recently except for the day of admission. She states her blood pressure is usually well controlled. She had not missed any dialysis treatments. The patient was admitted in November 2022 for shortness of breath and heart failure, volume overload. She was very tachypneic on arrival and had elevated troponins at that time as well as some inferolateral T-wave inversion. EKG changes and elevated troponins were thought to be related to nonischemic cardiac injury due to her heart failure, hypoxia. She had a similar though less severe admission in October. 12/09/2022 troponins: 0.36, 0.42, 0.43 11/12/2022 echo: EF 60-65%, LVH, diastolic dysfunction, technically difficult study. 03/01/2022 Lexiscan: Normal perfusion, EF 56%. 12/09/2022 EKG at 9:29 a.m.: NSR, RBBB, LAFB, nonspecific ST and T-wave changes. She has some slight chronic ST in elevation in AVR and V1, and the previously noted infero- lateral T-wave inversion have improved. However, the ST and T-wave changes appear chronic. Personally reviewed. Review of Systems Constitutional: Constitutional: Denies fever(s) Eyes: E
--- NOTE | 2022-12-11 12:39 | WPDPN ---
Progress Note: A&P Assessment and Plan (1) End-stage renal disease on hemodialysis: Code(s): N18.6 - End stage renal disease; Z99.2 - Dependence on renal dialysis Status: Acute Assessment and Plan: ED-HPI narrative: Patient is a 72-year-old female with a history of ESRD on dialysis Saturdays, COPD, CAD, diabetes presenting with shortness of breath.? Patient states that she woke up this morning feeling short of breath with diffuse chest pain.? States that she has had this before.? She denies missing any dialysis treatments.? States that she went yesterday.? She denies fevers, lightheadedness, headache, abdominal pain, vomiting, diarrhea.? Patient does make urine denies dysuria. 12/11/2022 interval history: patient is 72 y/o female with history of ESRD on HD Saturday, and Saturday presented with C/O of shortness of breath and CP, patient tropes are elevated and chest x-ray suspecious for volume overload, discuss with ER physician and hydraulic controls technician, most likely volume overload, will give lasix and may need HD, Patient had HD on 12/10 and patient is having HD today again, stats her symptms are improving, patient will be seen by her hydraulic controls technician, also consulted remotely piloted vehicle controller for further revaluation and recommendations. (2) Chronic anemia: Code(s): D64.9 - Anemia, unspecified Status: Acute Assessment and Plan: Most likely secondary to chronic kidney disease seen by Nephrology and further recommendation to follow (3) Shortness of breath at rest: Code(s): R06.02 - Shortness of breath Status: Acute Assessment and Plan: Patient with history of end-stage renal disease on hemodialysis suspect volume overload patient does urinate will give the patient Lasix patient may need additional dialysis will discuss with hydraulic controls technician Subjective Date/time seen: 12/11/22 12:39 Interval history: ED-HPI narrative: Patient is a 72-year-old female with a history of ESRD on dialysis Saturdays, COPD, CAD, diabetes presenting with shortness of breath.? Patient states that she woke up this morning feeling short of breath with diffuse chest pain.? States that she has had this before.? She denies missing any dialysis treatments.? States that she went yesterday.? She denies fevers, lightheadedness, headache, abdominal pain, vomiting, diarrhea.? Patient does make urine denies dysuria. 12/11/2022 interval history: patient is 72 y/o female with history of ESRD on HD Saturday, and Saturday presented with C/O of shortness of breath and CP, patient tropes are elevated and chest x-ray suspecious for volume overload, discuss with ER physician and hydraulic controls technician, most likely volume overload, will give lasix and may need HD, Patient had HD on 12/10 and patient is having HD today again, stats her symptms are improving, patient will be seen by her hydraulic controls technician, also consulted remotely piloted vehicle controller for further revaluation and recommendations. Review of Systems Review of Systems: All systems reviewed & are unremarkable except as noted in HPI and below Exam Narrative: Morbidly obese Patient is comfortable, NAD HEENT: eyes are clear and none icteric LUNGS: Bilateral fair air entry with rales and rhonchi HEART: RR S1S2 ABD: Distended Lower extremities: no edema SKIN: nonjaundiced Neuro: grossly intact. Objective Data Vital Signs Vital Signs: Vital Signs - 24 hr 12/10/22 14:07 12/10/22 14:11 12/10/22 14:21 Temperature Pulse Rate 64 68 Respiratory Rate 16 16 Blood Pressure Pulse Oximetry 91 Oxygen Delivery Room Air 12/10/22 16:00 12/10/22 14:35 12/10/22 14:45 Temperature 98.5 F Pulse Rate 67 69 65 Respiratory Rate 17 Blood Pressure 191/78 H 199/80 H Pulse Oximetry Oxygen Delivery 12/10/22 15:00 12/10/22 15:20 12/10/22 15:40 Temperature Pulse Rate 66 66 67 Respiratory Rate Blood Pressure 176/62 H 137/52 L 139/61 Pulse Oximetry
[2022-12-11 16:27] LABS: Glucose Point of Care 263 mg/dl (65-105)
[2022-12-11] MEDS: INSULIN ASPART (*BKC) 100 UNITS/ML 10 UNITS SUB-Q (16:53)
[2022-12-11 21:03] LABS: Glucose Point of Care 254 mg/dl (65-105)
[2022-12-12] VITALS (11 sets, daily range): BP systolic 157–173; BP diastolic 42–48; PULSE 65–81; RESP 18; TEMP 35.9–36.8; O2SAT 90–99
[2022-12-12] MEDS: IPRATROPIUM BR 0.02% INH SOLN 0.5 MG/2.5 ML VIAL INHALATION ×2 (03:35→13:56)
[2022-12-12] MEDS: ALBUTEROL SULFATE NEB 2.5 MG/3 ML INH INHALATION ×2 (03:35→13:56)
[2022-12-12 06:39] LABS: Albumin Level 3.4 g/dL (3.5-5.1); Anion Gap 6 mmol/L (8-16); Blood Urea Nitrogen 34 mg/dL (7-17); Calcium 7.9 mg/dL (8.4-10.2); Carbon Dioxide 26 mmol/L (22-30); Chloride 105 mmol/L (98-107); Estimated CRCL calculation 8 ml/min; Estimated Glomerular Filt Rate 7; Glucose 231 mg/dL (65-110); Magnesium 2.2 mg/dL (1.6-2.3); Phosphorus 6.1 mg/dL (2.5-4.5); Potassium 4.3 mmol/L (3.4-5.0); Sodium 137 mmol/L (137-145)
[2022-12-12 06:47] LABS: Hematocrit 32.4 % (37.0-47.0); Hemoglobin 9.9 g/dL (12.0-15.0); Mean Corpuscular HGB Conc 30.6 g/dl (32-36); Mean Corpuscular Volume 101.6 fl (80-100); Platelet Count Result 107 k/mm3 (150-375); Red Blood Count 3.19 M/mm3 (4.2-5.4); Red Cell Distribution Width 12.9 % (11.5-14.5); White Blood Count 5.5 K/mm3 (4.5-10.0)
[2022-12-12 07:20] LABS: Glucose Point of Care 214 mg/dl (65-105)
[2022-12-12] MEDS: INSULIN ASPART (*BKC) 100 UNITS/ML 10 UNITS SUB-Q ×2 (09:09→12:10)
[2022-12-12] MEDS: HEPARIN SODIUM 5,000 UNITS/ML VIAL 5000 UNITS SUB-Q (09:12)
[2022-12-12] MEDS: NIFEdipine 30 MG TAB.ER.24 PO (09:15)
[2022-12-12] MEDS: GABAPENTIN 400 MG CAPSULE PO ×2 (09:15→12:10)
[2022-12-12 11:35] LABS: Glucose Point of Care 317 mg/dl (65-105)
--- NOTE | 2022-12-12 13:22 | PM.PNNEP ---
Progress Note: A&P Assessment and Plan (1) End stage renal disease: Code(s): N18.6 - End stage renal disease Status: Chronic Assessment and Plan: HD tomorrow and continue T/T/S dialysis schedule while hospitalized follow electrolytes, volume status, and clearance (2) Volume overload: Code(s): E87.70 - Fluid overload, unspecified Status: Acute Assessment and Plan: as evidenced by exam and CXR on admission s/p dry ultrafiltration with 3L fluid removal HD yesterday (3) Chronic obstructive pulmonary disease: Code(s): J44.9 - Chronic obstructive pulmonary disease, unspecified Status: Acute Assessment and Plan: playing some role with shortness of breath/hypoxia evidence of wheezing on presentation continue PRN supplemental oxygen continue nebulizer treatments/home inhalers follow respiratory status (4) Hypertension: Qualifiers: Qualified Code(s): I15.0 - Renovascular hypertension Code(s): I10 - Essential (primary) hypertension Status: Chronic Assessment and Plan: can be quite erratic at times resumed on home medications follow trend of hemodynamics (5) Anemia: Code(s): D64.9 - Anemia, unspecified Status: Chronic Assessment and Plan: due to ESRD close to goal Epogen with HD follow trend of H/H (6) Insulin dependent type 2 diabetes mellitus: Code(s): E11.9 - Type 2 diabetes mellitus without complications; Z79.4 - intermission coordinator (current) use of insulin Status: Chronic Assessment and Plan: follow accuchecks glycemic control per hospitalists Not opposed to discharge from renal perspective if otherwise medically stable. Will continue to follow. Subjective Date/time seen: 12/12/22 13:22 Interval history: Follow-up for end stage renal disease on hemodialysis. Tolerated dialysis treatment yesterday with issues or problems; respiratory status/breathing seems back to baseline if not better; no other issues/events overnight or earlier this morning. Exam Narrative: General: elderly female in NAD Heart: normal S1 and S2; no rub Lungs: clear anteriorly; decreased at bases Abdomen: soft, nontender, nondistended, positive bowel sounds Extremities: no cyanosis or clubbing; no edema; s/p left BKA and right AKA Skin: warm and intact Objective Data Vital Signs Vital Signs: Vital Signs Temp Pulse Resp BP Pulse Ox O2 Del Method 12/12/22 13:07 96.7 F L 66 18 157/48 H 94 12/12/22 12:00 70 12/12/22 08:00 67 12/12/22 08:00 90 Room Air 12/12/22 08:30 93 Room Air 12/12/22 04:53 98.3 F 71 18 173/42 H 99 12/12/22 04:00 65 12/12/22 03:48 75 18 12/12/22 03:35 73 18 12/12/22 00:00 81 12/11/22 20:00 74 12/11/22 21:36 78 18 12/11/22 21:28 75 18 12/11/22 20:28 97.6 F 74 16 176/62 H 94 12/11/22 16:00 68 Intake/Output Intake/Output: Intake & Output 12/09/22 12/10/22 12/11/22 12/12/22 23:59 23:59 23:59 23:59 Intake Total 738 051 1231 920 Output Total 3475 500 Balance 640 -8456 1344 920 Meds/Results Medications: Active Medications Generic Name Dose Route Start Last Admin Trade Name Freq PRN Reason Stop Dose Admin Albuterol 2.5 mg 12/09/22 14:00 12/12/22 13:56 Albuterol Sulfate Neb 2.5 Mg/3 Ml Inh INHALATION 2.5 mg Q6HRT KEMI Administration Dextrose 12.5 gm 12/09/22 18:30 Dextrose 50% 25 Gm/50 Ml Syringe IV PUSH PRN PRN Hypoglycemia Protocol Gabapentin 400 mg 12/10/22 09:00 12/12/22 12:10 Gabapentin 400 Mg Capsule PO 400 mg TID KEMI Administration Glucagon 1 mg 12/09/22 18:30 Glucagon For Inj 1 Mg Vial IM PRN PRN Hypoglycemia Protocol Glucose 15 gm 12/09/22 18:30 Glucose Oral Gel 15 Gm Of Glucse In 37.5 Gm Tube PO PRN PRN Hypoglycemia Protocol Hepa
--- NOTE | 2022-12-12 13:22 | P.PNNP_ITS ---
Progress Note: A&P Assessment and Plan (1) End stage renal disease: Code(s): N18.6 - End stage renal disease Status: Chronic Assessment and Plan: * HD tomorrow and continue T/T/S dialysis schedule while hospitalized * follow electrolytes, volume status, and clearance (2) Volume overload: Code(s): E87.70 - Fluid overload, unspecified Status: Acute Assessment and Plan: * as evidenced by exam and CXR on admission * s/p dry ultrafiltration with 3L fluid removal * HD yesterday (3) Chronic obstructive pulmonary disease: Code(s): J44.9 - Chronic obstructive pulmonary disease, unspecified Status: Acute Assessment and Plan: * playing some role with shortness of breath/hypoxia * evidence of wheezing on presentation * continue PRN supplemental oxygen * continue nebulizer treatments/home inhalers * follow respiratory status (4) Hypertension: Qualifiers: Qualified Code(s): I15.0 - Renovascular hypertension Code(s): I10 - Essential (primary) hypertension Status: Chronic Assessment and Plan: * can be quite erratic at times * resumed on home medications * follow trend of hemodynamics (5) Anemia: Code(s): D64.9 - Anemia, unspecified Status: Chronic Assessment and Plan: * due to ESRD * close to goal * Epogen with HD * follow trend of H/H (6) Insulin dependent type 2 diabetes mellitus: Code(s): E11.9 - Type 2 diabetes mellitus without complications; Z79.4 - intermediate manager (current) use of insulin Status: Chronic Assessment and Plan: * follow accuchecks * glycemic control per hospitalists Not opposed to discharge from renal perspective if otherwise medically stable. Will continue to follow. Subjective Date/time seen: 12/12/22 13:22 Interval history: Follow-up for end stage renal disease on hemodialysis. Tolerated dialysis treatment yesterday with issues or problems; respiratory status/breathing seems back to baseline if not better; no other issues/events overnight or earlier this morning. Exam Narrative: General: elderly female in NAD Heart: normal S1 and S2; no rub Lungs: clear anteriorly; decreased at bases Abdomen: soft, nontender, nondistended, positive bowel sounds Extremities: no cyanosis or clubbing; no edema; s/p left BKA and right AKA Skin: warm and intact Objective Data Vital Signs Vital Signs: Vital Signs Temp Pulse Resp BP Pulse Ox O2 Del Method 12/12/22 13:07 96.7 F L 66 18 157/48 H 94 12/12/22 12:00 70 12/12/22 08:00 67 12/12/22 08:00 90 Room Air 12/12/22 08:30 93 Room Air 12/12/22 04:53 98.3 F 71 18 173/42 H 99 12/12/22 04:00 65 12/12/22 03:48 75 18 12/12/22 03:35 73 18 12/12/22 00:00 81 12/11/22 20:00 74 12/11/22 21:36 78 18 12/11/22 21:28 75 18 12/11/22 20:28 97.6 F 74 16 176/62 H 94 12/11/22 16:00 68 Intake/Output Intake/Output: Intake & Output 12/09/22 12/10/22 12/11/22 12/12/22 23:59 23:59 23:59 23:59 Intake Total 414 917 2160 920 Output Total 3475 500 Balance 640 -1461 5275 920
--- NOTE | 2022-12-12 14:31 | PM.DS ---
DS: Admitting Diagnosis Discharge Date 12/12/2022 Admitting Diagnosis Chest Pain DS: Discharge Diagnosis Discharge Diagnosis (1) End-stage renal disease on hemodialysis: Code(s): N18.6 - End stage renal disease; Z99.2 - Dependence on renal dialysis Status: Acute Assessment and Plan: ED-HPI narrative: Patient is a 72-year-old female with a history of ESRD on dialysis Saturdays, COPD, CAD, diabetes presenting with shortness of breath.? Patient states that she woke up this morning feeling short of breath with diffuse chest pain.? States that she has had this before.? She denies missing any dialysis treatments.? States that she went yesterday.? She denies fevers, lightheadedness, headache, abdominal pain, vomiting, diarrhea.? Patient does make urine denies dysuria. 12/11/2022 interval history: patient is 72 y/o female with history of ESRD on HD Saturday, and Saturday presented with C/O of shortness of breath and CP, patient tropes are elevated and chest x-ray suspecious for volume overload, discuss with ER physician and food sampler, most likely volume overload, will give lasix and may need HD, Patient had HD on 12/10 and patient is having HD today again, stats her symptms are improving, patient will be seen by her food sampler, also consulted footwear sales coordinator for further revaluation and recommendations. (2) Chronic anemia: Code(s): D64.9 - Anemia, unspecified Status: Acute Assessment and Plan: Most likely secondary to chronic kidney disease seen by Nephrology and further recommendation to follow (3) Shortness of breath at rest: Code(s): R06.02 - Shortness of breath Status: Acute Assessment and Plan: Patient with history of end-stage renal disease on hemodialysis suspect volume overload patient does urinate will give the patient Lasix patient may need additional dialysis will discuss with food sampler DS: Summary Hospital Course Reason for hospitalization: chest pain Narrative: ED-HPI narrative: Patient is a 72-year-old female with a history of ESRD on dialysis Saturdays, COPD, CAD, diabetes presenting with shortness of breath.? Patient states that she woke up this morning feeling short of breath with diffuse chest pain.? States that she has had this before.? She denies missing any dialysis treatments.? States that she went yesterday.? She denies fevers, lightheadedness, headache, abdominal pain, vomiting, diarrhea.? Patient does make urine denies dysuria. patient is 72 y/o female with history of ESRD on HD Saturday, and Saturday presented with C/O of shortness of breath and CP, patient tropes are elevated and chest x-ray suspecious for volume overload, discuss with ER physician and food sampler, most likely volume overload, will give lasix and may need HD, will monitor. Hospital Course: patient is 72 y/o female with history of ESRD on HD Saturday, and Saturday presented with C/O of shortness of breath and CP, patient tropes are elevated and chest x-ray suspecious for volume overload, discuss with ER physician and food sampler, most likely volume overload, will give lasix and may need HD, Patient had HD on 12/10 and patient is having HD today again, stats her symptms are improving, patient will be seen by her food sampler, also? consulted footwear sales coordinator for further revaluation and recommendations. Patient had HD and her symptosm have improved, clinically stable, will discaharge patient today. Time Spent with Patient Time attestation: Total time spent providing and/or coordinating discharge services: Exam Narrative: Morbidly obese Patient is comfortable, NAD HEENT: eyes are clear and none icteric LUNGS: Bilateral fair air entry with rales and rhonchi HEART: RR S1S2 ABD: Distended Lower extremities: no edema SKIN: nonjaundiced Neuro: grossly intact. DS: Data Data Completed and Pending Labs on day of discharge: Labs fr
--- NOTE | 2022-12-12 15:59 | PM.PNCARD ---
Progress Note: A&P Assessment and Plan (1) Elevated troponin: Code(s): R77.8 - Other specified abnormalities of plasma proteins Status: Acute Assessment and Plan: Mildly elevated troponins. EKG shows some chronic ST and T changes. Likely not ACS but troponinemia related to her CHF, hypertension and end-stage renal disease. She did have some chest discomfort on admission which be angina related to her severe hypertension and CHF, but she also has some chest wall tenderness. --follow-up with her usual field artillery fire control man, Dr. Blackwood (2) Coronary artery disease: Code(s): I25.10 - Atherosclerotic heart disease of [place] coronary artery without angina pectoris Status: Acute Assessment and Plan: History of CAD and CABG in 2019. Negative Lexiscan in November 2022. --continue Eliquis and pravastatin (3) Acute diastolic CHF (congestive heart failure): Code(s): I50.31 - Acute diastolic (congestive) heart failure Status: Acute Assessment and Plan: Acute on chronic diastolic heart failure, likely related to volume overload and end-stage renal disease. --Admits to dietary indiscretion recently --volume control through dialysis --blood pressure control (4) Hypertension: Qualifiers: Hypertension type: renovascular hypertension Qualified Code(s): I15.0 - Renovascular hypertension Code(s): I10 - Essential (primary) hypertension Status: Chronic Assessment and Plan: Blood pressure still running high. --continue nifedipine, losartan, carvedilol (has not been getting the latter two this admission) --blood pressure does not improve may need the addition of hydralazine or other blood pressure lowering agent (5) End stage renal disease: Code(s): N18.6 - End stage renal disease Status: Chronic Assessment and Plan: Followed by Dr. Pereira. Subjective Date/time seen: 12/12/22 15:59 Interval history: Follow-up for chest pressure and elevated troponins, thought to be secondary to CHF, hypertension and volume overload. History of CAD, CABG 2019, and diastolic CHF. Her usual field artillery fire control man is Dr. Evette Blackwood. Date of service 12/12/2022: Blood pressure is running usually 155-178 mmHg systolic. Pt thinks she is not getting her reguuar home meds. Admits to fluid indiscretion over the lsat 2 weeks. On room air. Had dialysis 2 days in a row. Prob DC today. Review of Systems Review of Systems: No dizziness, SOB and chest pressure better, no nausea, bleeding Exam Const: General: cooperative and comfortable; No confusion Orientation/consciousness: oriented to person, patient oriented x3 and No confusion Other: Lying supine, NAD HENMT: Mouth: Yes moist mucous membranes Eyes: General: appearance normal, both eyes and all related structures EOM: EOMs intact bilaterally Resp: Effort & Inspection: normal respiratory effort Auscultation: clear to auscultation bilaterally Cardio: Rate: regular rate Rhythm: regular rhythm Heart sounds: no murmurs GI: Inspection: normal to inspection GI Palp: No abdominal tenderness Skin: General skin exam: normal color and no rashes or lesions noted Neuro: General: oriented to person, patient oriented x3 and No confusion Extrem: Right lower extremity: no edema Left lower extremity: no edema Other: left AKA, right BKA, also some finger amputations LUE Psych: Appearance: grossly normal Mental Status: mental status grossly normal Objective Data Vital Signs Vital Signs: Vital Signs - 24 hr 12/11/22 16:00 12/11/22 20:28 12/11/22 21:28 Temperature 97.6 F Pulse Rate 68 74 75 Respiratory Rate 16 18 Blood Pressure 176/62 H Pulse Oximetry 94 Oxygen Delivery 12/11/22 21:36 12/11/22 20:00 12/12/22 00:00 Temperature Pulse Rate 78 74 81 Respiratory Rate 18 Blood Pressure Pulse Oximetry Oxygen Delivery 12/12/22 03:35 12/12/22 03
== END 2022-12-12 17:00 | disposition home or self-care (01) | DRG 291 ==
LOC: ANHED 10:25 → ANH3MEDSUR 15:18
PROVIDERS: Internal Medicine Nephrology; Admitting Provider Family Medicine; Emergency Provider Emergency Medicine; PCP Internal Medicine; Visit Provider Family Medicine
DX: I13.2 Hypertensive heart and chronic kidney disease with heart failure and with stage 5 chronic kidney disease, or end stage renal disease (principal); I50.33 Acute on chronic diastolic (congestive) heart failure; N18.6 End stage renal disease; E11.22 Type 2 diabetes mellitus with diabetic chronic kidney disease; Z99.2 Dependence on renal dialysis; I25.10 Atherosclerotic heart disease of native coronary artery without angina pectoris; I70.208 Unspecified atherosclerosis of native arteries of extremities, other extremity; J44.9 Chronic obstructive pulmonary disease, unspecified; E78.5 Hyperlipidemia, unspecified; E11.319 Type 2 diabetes mellitus with unspecified diabetic retinopathy without macular edema; E11.40 Type 2 diabetes mellitus with diabetic neuropathy, unspecified; N25.0 Renal osteodystrophy; D63.1 Anemia in chronic kidney disease; D69.6 Thrombocytopenia, unspecified; F41.9 Anxiety disorder, unspecified; F32.A Depression, unspecified; F17.210 Nicotine dependence, cigarettes, uncomplicated; Z20.822 Contact with and (suspected) exposure to COVID-19; Z89.431 Acquired absence of right foot; Z89.022 Acquired absence of left finger(s); Z89.512 Acquired absence of left leg below knee; Z89.511 Acquired absence of right leg below knee; Z95.1 Presence of aortocoronary bypass graft; Z95.5 Presence of coronary angioplasty implant and graft; Z79.01 Long term (current) use of anticoagulants; Z79.4 Long term (current) use of insulin
CPT/HCPCS: 36415; 71045; 80053; 80069; 82948; 83690; 83735; 84100; 84484; 85025; 85027; 85610; 85730; 86706; 87340; 87636; 93005; 94640; 96372; 96374; 96376; 99285; A9270; G0257; G0378; J1644; J1815; J1940; J7030; Q5105

== ENCOUNTER 2022-12-19 17:15 | Observation (INO) | payer MEDICARE, OTHER, SELFPAY ==
--- NOTE | ~2022-12-19 | CT_ITS ---
EXAMINATION: CT abdomen pelvis wo con DATE: 12/19/2022 19:49 INDICATION: Coccyx ulcer evaluate for abscess ESRD on HD TECHNIQUE: Computed tomography (CT) of the abdomen and pelvis was performed without intravenous contr ast. Automated exposure control and iterative reconstruction technique were employed. The dose-length product was 1129.40 mGy-cm. COMPARISON: 10/25/2021. FINDINGS: Lower thorax: New 1.4 cm right lower lobe nodule. Bibasilar atelectasis. Small left and trace right p leural effusions. Incompletely visualized dialysis catheter terminating in right atrium. Abandoned ep icardial pacing wire. Coronary artery calcifications. Innumerable diffuse punctate calcifications. Liver: Diffuse calcifications, possibly vascular and/or granulomatous. Nodular liver border as can be seen with cirrhosis. Biliary/Gallbladder: Cholelithiasis. No bile duct dilation. Pancreas: No mass or duct dilation. Spleen: Normal. Adrenals:No mass. Kidneys: No mass, stone, or hydronephrosis. Bilateral cortical thinning. GI tract: No small or large bowel dilation. Normal appendix. Diverticulosis without diverticulitis. Mesentery/Peritoneum: Multiple enlarged mesenteric lymph nodes Retroperitoneum: No mass. Atherosclerotic abdominal aortic and/or arterial calcifications. Multiple e nlarged right peroneal lymph nodes. Pelvis: Mild bladder wall thickening. Extensive calcifications within the uterus, likely vascular. In terval resolution of the previously described hydrometra. Soft Tissues: Soft tissue induration overlying the distal sacrum and coccyx without soft tissue defec t. No fluid collection. Bones: No acute osseous finding. Specifically, there is no erosion, osteopenia, or sclerosis in the distal sacrum/coccyx. IMPRESSION: New 1.4 cm right lower lobe pulmonary nodule, suspicious for malignancy. Recommend CT-guided lung bio psy or PET/CT. Small left and trace right pleural effusions. Cirrhosis. Mesenteric and retroperitoneal lymphadenopathy. Soft tissue induration overlying the sacrum and coccyx, may correspond to a sacral decubitus ulcer. N o abscess or CT evidence of osteomyelitis. Reviewed, dictated and finalized at location K. IMPRESSION: New 1.4 cm right lower lobe pulmonary nodule, suspicious for malignancy. Recomm end CT-guided lung biopsy or PET/CT. Small left and trace right pleural effusions. Cirrhosis. Mesenteric and retroperitoneal lymphadenopathy. Soft tissue induration overlying the sacrum and coccyx, may correspond to a sac ral decubitus ulcer. No abscess or CT evidence of osteomyelitis.
--- NOTE | ~2022-12-19 | XR_ITS ---
EXAMINATION: XR chest 1V Exam Date/Time: 12/19/2022 19:45 CDT HISTORY: Shortness of breath BROUGHT IN FOR HYPOXIA Comparison: 12/09/2022; CT abdomen pelvis 12/19/2022. RESULT: Lines, tubes, and devices: Right IJ dialysis catheter terminating in the right atrium. Sternotomy wi res and closure devices. Mediastinal surgical clips. Abandoned epicardial pacing wires. Lungs and pleura: Nodular 1.4 cm opacity in the right lower lobe. Streaky bibasilar atelectasis. Cardiomediastinal silhouette: Stable. Other: No acute osseous or upper abdominal finding. IMPRESSION: 1.4 cm nodular right lower lobe opacity concerning for malignancy, recommend CT guided lung biopsy or PET CT. Bibasilar atelectasis. The small pleural effusions seen by the prior CT are not visible radi ographically. Reviewed, dictated and finalized at location K. IMPRESSION: 1.4 cm nodular right lower lobe opacity concerning for malignancy, recommend CT guided lung biopsy or PET CT. Bibasilar atelectasis. The small pleural effusio ns seen by the prior CT are not visible radiographically.
[2022-12-19 17:40] VITALS: BP 133/46; PULSE 70; RESP 24; TEMP 36.1; O2SAT 96
--- NOTE | 2022-12-19 18:17 | PC.NURSE ---
Subclavian R upper chest upon arrival
[2022-12-19 19:09] VITALS: BP 136/70; PULSE 67; RESP 12; O2SAT 98
--- NOTE | 2022-12-19 19:27 | ECG_ITS ---
Measurements Intervals [place] Rate: 64 P: 54 NC: 184 QRS: -79 QRSD: 158 T: 173 QT: 434 QTc: 448 Interpretive Statements SINUS RHYTHM RIGHT BUNDLE BRANCH BLOCK LEFT ANTERIOR FASCICULAR BLOCK ST-T WAVE ABNORMALITY IN ANTEROLAT/HIGH LAT LEADS- CONSIDER ISCHEMIA BASELINE ARTIFACT- V5 ABNORMAL ECG COMPARED TO ECG 12/09/2022 09:29:53 NO SIGNIFICANT CHANGES Electronically Signed On 12-19-2022 21:04:27 CDT by Fito Mcintosh D.O.
[2022-12-19] MEDS: MORPHINE SULFATE (*CRX) 4 MG/ML INJ IV PUSH (19:57)
--- NOTE | 2022-12-19 19:57 | ED.GENADULT ---
HPI - General Adult General Chief complaint: Wound/Laceration Stated complaint: bed sores, hyperglycemia, hypoxia Time Seen by Provider: 12/19/22 19:09 History of Present Illness HPI narrative: Patient is a 72-year-old female who presents to Emergency Department with a chief complaint of shortness of breath and pain in the sacral area. The patient reports she has history of diabetes also end-stage renal disease and on dialysis patient has history of a above-knee amputation of the right lower extremity in a below-knee amputation on the left lower extremity. Patient was recently hospitalized for shortness of breath and reports that she has been having discomfort in her coccyx area and reports that there is a ulceration that is present. The patient reports she has been applying barrier cream to the area denies purulent drainage from the area patient also reports that she is been short of breath lately and normally goes to dialysis Saturday. Related Data Home Medications Medication Instructions Recorded Confirmed apixaban 5 mg tablet (Eliquis) 5 mg PO BID 11/03/19 11/24/22 carvedilol 25 mg tablet 25 mg PO BID 11/03/19 11/24/22 insulin degludec 100 unit/mL 35 unit subcut HS 11/03/19 11/24/22 subcutaneous solution (Tresiba U-100 Insulin) pravastatin 40 mg tablet 40 mg PO HS 11/03/19 11/24/22 sertraline 25 mg tablet 25 mg PO QAM 02/11/20 11/24/22 gabapentin 400 mg capsule 400 mg PO TID 10/09/21 11/24/22 losartan 100 mg tablet See Rx Instructions .Route .COMPLEX 10/09/21 11/24/22 cetirizine 10 mg tablet 10 mg PO DAILY 02/06/22 11/24/22 insulin aspart U-100 100 unit/mL 8 unit subcut TIDWMEAL 02/28/22 11/24/22 (3 mL) subcutaneous pen (Novolog FlexPen U-100 Insulin aspart) pantoprazole 40 mg tablet,delayed 40 mg PO DAILY Heartburn 02/28/22 11/24/22 release nifedipine 30 mg tablet,extended 30 mg PO Q12H 11/12/22 11/24/22 release 24 hr (Procardia XL) gabapentin 400 mg capsule 400 mg PO TID 12/09/22 12/09/22 insulin aspart U-100 100 unit/mL 10 unit subcut TID 12/09/22 12/09/22 (3 mL) subcutaneous pen (Novolog FlexPen U-100 Insulin aspart) losartan 100 mg tablet 100 mg PO DAILY 12/09/22 12/09/22 nifedipine 30 mg tablet,extended 30 mg PO DAILY 12/09/22 12/09/22 release Allergies Allergy/AdvReac Type Severity Reaction Status Date / Time No Known Allergies Allergy Verified 12/19/22 18:19 Review of Systems Review of Systems: A 10 system review of systems was completed on the patient and is negative except for what is stated in the HPI. Nursing and ancillary documentation was reviewed. [facility] Past Medical History Medical History Anxiety with depression Arterial vascular disease Chronic anemia Coronary artery disease COVID Digital arterial occlusive disease End-stage renal disease on hemodialysis Saturday, , Saturday. 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 Hemoglobin A1c was 6.8% in February 2020. Osteomyelitis Renal osteodystrophy Thrombocytopenia Surgical History Surgical History Amputation of right forefoot Right 4th and 5th ray amputation in 04/2017. Right foot transmetatarsal amputation with partial fasciotomy due to wet gangrene, osteomyelitis, and necrotizing fasciitis in May 2017. 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 History of below-knee amputation of both lower extremities Left [id number] amputation in 2017. Right dzjvu-[id number] amputation in 02/2020. History of bilateral cataract extraction History of carpal tunnel release History of four vessel coronary artery bypass graft (04/2019) History of right above knee amputation (05/12/20) His
[2022-12-19 20:20] LABS: Basophils Percent Auto 0.4 % (0.2-1.2); Eosinophils Absolute Auto 0.1 K/mm3 (0-0.3); Eosinophils Percent Auto 1.5 % (0-4.4); Hematocrit 31.3 % (37.0-47.0); Hemoglobin 9.6 g/dL (12.0-15.0); Immature Granulocyte Absolute 0.03 K/mm3 (0.00-0.031); Immature Granulocyte Percent A 0.4 % (0-0.5); Lymphocytes Percent Auto 10.6 % (18.3-44.2); Mean Corpuscular HGB Conc 30.7 g/dl (32-36); Mean Corpuscular Hemoglobin 30.8 pg (26-34); Mean Corpuscular Volume 100.3 fl (80-100); Mean Platelet Volume 12.9 fl (7.4-10.4); Monocytes Absolute Auto 0.5 K/mm3 (0.1-0.6); Monocytes Percent Auto 6.4 % (2.6-8.5); Neutrophils Absolute Auto 6.1 K/mm3 (1.3-6.7); Neutrophils Percent Auto 80.7 % (45.5-73.1); Platelet Count Result 118 k/mm3 (150-375); Red Blood Count 3.12 M/mm3 (4.2-5.4); Red Cell Distribution Width 13.2 % (11.5-14.5); White Blood Count 7.5 K/mm3 (4.5-10.0)
[2022-12-19 20:30] LABS: Alanine Aminotransferase 15 U/L (6-35); Albumin Level 3.2 g/dL (3.5-5.1); Alkaline Phosphatase 112 U/L (38-126); Anion Gap 7 mmol/L (8-16); Aspartate Amino Transferase 17 U/L (14-36); Bilirubin,Total 0.6 mg/dL (0.2-1.3); Blood Urea Nitrogen 42 mg/dL (7-17); Calcium 7.6 mg/dL (8.4-10.2); Carbon Dioxide 32 mmol/L (22-30); Chloride 100 mmol/L (98-107); Estimated CRCL calculation 7 ml/min; Estimated Glomerular Filt Rate 6; Glucose 304 mg/dL (65-110); Magnesium 2.2 mg/dL (1.6-2.3); Potassium 4.4 mmol/L (3.4-5.0); Sodium 139 mmol/L (137-145)
[2022-12-19 20:32] LABS: Lactic Acid Reflex 0.9 mmol/L (0.7-2.0)
[2022-12-19 20:33] LABS: Prothrombin Time 23.5 Seconds (11.1-14.7)
[2022-12-19 20:34] LABS: Partial Thromboplastin Time 55.6 SECONDS (22.3-36.8)
[2022-12-19 20:46] LABS: Troponin I 0.822 ng/mL (0.000-0.034)
--- NOTE | 2022-12-19 20:53 | PC.NURSE ---
Barrier cream applied to pts wound and to groin area.
[2022-12-19] MEDS: ASPIRIN 81 MG CHEWABLE TABLET 324 MG PO (21:56)
[2022-12-19 23:38] VITALS: BP 128/49; PULSE 61; RESP 13; O2SAT 94
[2022-12-19 23:53] VITALS: PULSE 62
--- NOTE | 2022-12-19 23:59 | PM.IMHP ---
H&P: HPI History of Present Illness Date/Time: 12/19/22 23:59 Chief Complaint: Shortness of breath and sacral pain Narrative: Patient is a 72-year-old female with a past medical history including but not limited to ESRD on hemodialysis TTS, left BKA, right AKA, who presents to Emergency Department with a chief complaint of shortness of breath and pain in the sacral area.? The patient reports a history of complicated diabetes with end-stage renal disease on dialysis, above-knee amputation of the right lower extremity and a below-knee amputation on the left lower extremity.? Patient was recently hospitalized for shortness of breath and reports that she has been having discomfort in her coccyx area and reports that there is a ulceration that is present.? The patient reports she has been applying barrier cream to the area denies purulent drainage from the area patient also reports that she is been short of breath lately and normally goes to dialysis Saturday. In the emergency department the patient had the following vital signs: Temperature of 36.1?, pulse 70, respiration 24, blood pressure 133/46, ox 96% on room air. Her CBC showed a WBC of 7.5, hemoglobin 9.6, hematocrit 31.3 and a platelet count of 118. Serum chemistry shows a sodium of 139, potassium 4.4, chloride 100, bicarbonate 32, BUN 42, creatinine is [address] Abdomen CT reveals new 14 cm right lower lobe pulmonary nodule, suspicious for malignancy. Recommend CT-guided lung biopsy or PET/CT. Small left and trace right pleural effusions. Cirrhosis. Mesenteric and retroperitoneal lymphadenopathy. Soft tissue induration overlying the sacrum and coccyx, may correspond to a sacral decubitus ulcer. No abscess or CT evidence of osteomyelitis. Chest x-ray shows 1.4 cm nodular right lower lobe opacity concerning for malignancy, recommend CT guided lung biopsy or PET CT. Bibasilar atelectasis. The small pleural effusions seen by the prior CT are not visible radiographically. [facility] Past Medical History Medical History Anxiety with depression Arterial vascular disease Chronic anemia Coronary artery disease COVID Digital arterial occlusive disease End-stage renal disease on hemodialysis Saturday, , Saturday. 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 Hemoglobin A1c was 6.8% in February 2020. Osteomyelitis Renal osteodystrophy Thrombocytopenia Surgical History Surgical History Amputation of right forefoot Right 4th and 5th ray amputation in 04/2017. Right foot transmetatarsal amputation with partial fasciotomy due to wet gangrene, osteomyelitis, and necrotizing fasciitis in May 2017. 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 History of below-knee amputation of both lower extremities Left fydlt-[id number] amputation in 2017. Right nyacj-ivt-jkji amputation in 02/2020. 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 History of vascular surgery Right lower extremity stents in March 2017. Left lower extremity stent in 2014. Family History Family History (Updated 12/20/22 @ 00:18 by Drea Rivers RN) Mother Diabetes mellitus Father Lung cancer Acute myocardial infarction Sibling Diabetes mellitus Social History Social History Social History: The patient currently lives with her sister. She is . She is reti
[2022-12-20] VITALS (26 sets, daily range): BP systolic 93–157; BP diastolic 42–74; PULSE 56–109; RESP 12–18; TEMP 35.5–37.2; O2SAT 95–100; BMI 55.5
[2022-12-20 00:07] LABS: Troponin I 0.762 ng/mL (0.000-0.034)
[2022-12-20 00:14] LABS: Glucose Point of Care 267 mg/dl (65-105)
--- NOTE | 2022-12-20 00:40 | PC.NURSE ---
This patient, Tawana Prado, was admitted to IMU Room 206-01. Patient/family oriented to hospital policies and general routines including ID bracelet, bed and alarms, visiting hours, pain management, procedures, bathroom and other care routines, personal items, smoking policy, room service/diet, and visiting hours. Information on how to activate the Rapid Response Team has been discussed. Patient/Family are encouraged to report perceived risks to care and to ask questions if they do not understand what they are told or what they should do.
--- NOTE | 2022-12-20 01:11 | PC.NURSE ---
Spoke with sister Kierra Carmel. Pt was unsure if she had taken all of her meds tonight. Kierra confirms that she has.
[2022-12-20] MEDS: traMADol HCL (*CRX) 50 MG TABLET PO (04:34)
[2022-12-20 05:41] LABS: Hematocrit 27.5 % (37.0-47.0); Hemoglobin 8.5 g/dL (12.0-15.0); Mean Corpuscular HGB Conc 30.9 g/dl (32-36); Mean Corpuscular Hemoglobin 31.7 pg (26-34); Mean Corpuscular Volume 102.6 fl (80-100); Mean Platelet Volume 13.4 fl (7.4-10.4); Platelet Count Result 108 k/mm3 (150-375); Red Blood Count 2.68 M/mm3 (4.2-5.4); Red Cell Distribution Width 13.3 % (11.5-14.5); White Blood Count 6.3 K/mm3 (4.5-10.0)
[2022-12-20 05:43] LABS: Anion Gap 7 mmol/L (8-16); Blood Urea Nitrogen 46 mg/dL (7-17); Calcium 7.2 mg/dL (8.4-10.2); Carbon Dioxide 29 mmol/L (22-30); Chloride 103 mmol/L (98-107); Estimated Glomerular Filt Rate 5; Glucose 169 mg/dL (65-110); Potassium 4.2 mmol/L (3.4-5.0); Sodium 139 mmol/L (137-145)
[2022-12-20 08:09] LABS: Iron 35 ug/dL (37-170)
[2022-12-20 08:12] LABS: Prealbumin 11.4 mg/dL (17.6-36.0)
[2022-12-20 08:29] LABS: Percent Iron Saturation 16 % (20-50)
[2022-12-20 08:43] LABS: Vitamin D 25 Hydroxy 13.7 ng/mL
[2022-12-20 09:12] LABS: Folic Acid 7.3 ng/mL (2.76->20)
[2022-12-20 09:58] LABS: Hepatitis B Surface Antigen Negative (Negative)
[2022-12-20] MEDS: NIFEdipine 30 MG TAB.ER.24 PO ×2 (09:59→20:34)
[2022-12-20] MEDS: LORATADINE 10 MG TABLET PO (09:59)
[2022-12-20] MEDS: PANTOPRAZOLE 40 MG TABLET PO (09:59)
[2022-12-20] MEDS: GABAPENTIN 400 MG CAPSULE PO ×2 (09:59→17:20)
[2022-12-20] MEDS: carvediloL 25 MG TABLET PO ×2 (09:59→20:35)
[2022-12-20] MEDS: APIXABAN 5 MG TABLET PO ×2 (09:59→17:20)
[2022-12-20] MEDS: LOSARTAN POTASSIUM 100 MG TABLET PO (09:59)
[2022-12-20] MEDS: SERTRALINE HCL 25 MG TABLET PO (09:59)
[2022-12-20] MEDS: ASPIRIN 81 MG CHEWABLE TABLET PO (10:01)
[2022-12-20] MEDS: INSULIN ASPART (*BKC) 100 UNITS/ML 8 UNITS SUB-Q (10:03)
[2022-12-20 10:12] LABS: Glucose Point of Care 173 mg/dl (65-105)
[2022-12-20] MEDS: ACETAMINOPHEN 325 MG TABLET 650 MG PO (10:48)
--- NOTE | 2022-12-20 10:49 | PC.NURSE ---
Pt to dialysis via bed
--- NOTE | 2022-12-20 11:24 | PM.CNCAR ---
Assessment and Plan Assessment and plan (1) Elevated troponin: Code(s): R77.8 - Other specified abnormalities of plasma proteins Status: Acute Assessment and Plan: These are not related to acute coronary syndrome. Likely secondary to renal insufficiency/kidney failure. She has no clinical syndrome or significant rise or fall of troponins. No need for further workup at this point (2) Sacral decubitus ulcer: Code(s): L89.159 - Pressure ulcer of sacral region, unspecified stage Status: Acute Assessment and Plan: Treatment per wound care and hospitalist service (3) End stage renal disease on dialysis: Code(s): N18.6 - End stage renal disease; Z99.2 - Dependence on renal dialysis Status: Acute Assessment and Plan: On dialysis (4) Coronary artery disease: Code(s): I25.10 - Atherosclerotic heart disease of [place] coronary artery without angina pectoris Status: Acute Assessment and Plan: Continue carvedilol, statin, ARB, Eliquis History of Present Illness History of Present Illness Consult date/time: 12/20/22 11:24 Requesting physician: Brad Cohen MD Consult reason: Other (Elevated troponin) Reason For Visit: Dyspnea/Elevated Troponin/ESRD on HD/Sacral Wound Narrative: Reason for consultation: Elevated troponin Date of service 12/20/2022 Requesting provider: Dr. Cohen History: Patient is a 72-year-old female who was known to the service who we were consulted because of elevated troponins. She came to hospital though because of sacral pain from decubitus ulcers. Troponins were drawn which were minimally elevated. Troponins were drawn for unknown reasons as she has no chest pain or shortness of breath. Consultation was requested though because of the elevated troponins. She is seen in dialysis and currently denies any chest pain, shortness breath, syncope, presyncope, paroxysmal nocturnal dyspnea, orthopnea or palpitations. Review of Systems Review of Systems: All systems reviewed & are unremarkable except as noted in HPI and below Constitutional: Constitutional: Denies body ache(s) Eyes: Eyes: Denies blurry vision ENT: Reports Normal hearing present Cardiovascular: Cardiovascular: Denies chest pain Respiratory: Respiratory: Denies dyspnea Gastrointestinal: Gastrointestinal: Denies abdominal pain Genitourinary: Genitourinary: Denies hematuria Musculoskeletal: Musculoskeletal: Denies back pain Integumentary/Breasts: Skin/Breast: Reports wounds Neurologic: Denies Abnormal speech present Psychiatric: Psychiatric: Denies confusion Endocrine: Endocrine: Denies fatigue Hematologic/Lymphatic: Hematologic/Lymphatic: Denies easy bleeding Allergic/Immunologic: Allergic/Immunologic: Denies GI upset with certain foods PMFSH Past Medical History Medical History Anxiety with depression Arterial vascular disease Chronic anemia Coronary artery disease COVID Digital arterial occlusive disease End-stage renal disease on hemodialysis Saturday, , Saturday. 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 Hemoglobin A1c was 6.8% in February 2020. Osteomyelitis Renal osteodystrophy Thrombocytopenia Surgical History Surgical History Amputation of right forefoot Right 4th and 5th ray amputation in 04/2017. Right foot transmetatarsal amputation with partial fasciotomy due to wet gangrene, osteomyelitis, and necrotizing fasciitis in May 2017. 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 History of below-knee amputation of both lower extremities Left [id number]-[id number] amputation in 2017. Right [id number]-[id number] amputation in
[2022-12-20 11:55] LABS: Glucose Point of Care 132 mg/dl (65-105)
--- NOTE | 2022-12-20 13:05 | PM.EVENT ---
Event Note Event Note Event Note: Patient is on dialysis. She is tolerating it well. She was seen at 12:55 p.m..
--- NOTE | 2022-12-20 13:05 | PM.CNNEP ---
Assessment and Plan Assessment and plan (1) End-stage renal disease on hemodialysis: Code(s): N18.6 - End stage renal disease; Z99.2 - Dependence on renal dialysis Status: Acute Assessment and Plan: The patient has end-stage renal disease. She dialyzes at [facility] under Dr. Clarke. Her dialysis sessions go pretty well generally. She says she does not have a lot of fluid on generally. She has had no cramps. She is due for dialysis today She does not seem to have a whole lot of fluid on today. But she does have some intermittent swelling so will take a little fluid off.\ The patient's potassium is okay so will do a 3K bath. (2) Decubitus ulcer of back: Code(s): L89.109 - Pressure ulcer of unspecified part of back, unspecified stage Status: Acute Assessment and Plan: The patient will be seen by surgeon and the wound nurse. Fortunately the CT does not show osteomyelitis. Will see what it looks like after debridement. (3) Hypertension: Qualifiers: Hypertension type: renovascular hypertension Qualified Code(s): I15.0 - Renovascular hypertension Code(s): I10 - Essential (primary) hypertension Status: Chronic Assessment and Plan: Systolic blood pressure 119 today. Will continue outpatient medications. (4) Chronic anemia: Code(s): D64.9 - Anemia, unspecified Status: Acute Assessment and Plan: Hemoglobin is 8.5. She will get Epogen with her dialysis. 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 (6) Renal osteodystrophy: Code(s): N25.0 - Renal osteodystrophy Status: Acute Assessment and Plan: Will check a phosphorus level in the morning. (7) Coronary artery disease: Code(s): I25.10 - Atherosclerotic heart disease of [place] coronary artery without angina pectoris Status: Acute Assessment and Plan: No chest pain. History of Present Illness Reason for Consult Consult date: 12/20/22 Chief Complaint Chief complaint: Dyspnea/Elevated Troponin/ESRD on HD/Sacral Wound History of Present Illness Narrative: The Kecia is a very pleasant lady who has multiple medical problems including end-stage renal disease who gets dialysis on Tuesdays and Saturdays at [facility] under the care of Dr. Betancourt. 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 The patient says that she has had a wound that is been draining slowly for the last couple of weeks. This wound is pre sacral. She was getting dressing changes for this however the pain became worse and she was hardly able to stand at yesterday so she came to the ER. In the ER they evaluated her. CT scan did not show osteomyelitis but she needed attention to her wound so she was admitted for wound care and surgical consultation. The patient is due for dialysis today. She has been on dialysis for a few years. She has been tolerating the treatments well. She has been getting to her dry weight. She has not had any cramps. She denies any chest pain or shortness of breath. Blood pressure has been fairly well controlled. Review of Systems Constitutional: Constitutional: Reports no additional constitutional complaints Eyes: Eyes: Reports no additional eye complaints ENT: Reports system reviewed and no additional complaints, except as documented Cardiovascular: Cardiovascular: Reports no additional cardiovascular complaints Respiratory: Respiratory: Reports no additional respiratory complaints Gastrointestinal: Gastrointestinal: Reports n
[2022-12-20 13:45] LABS: Glucose Point of Care 99 mg/dl (65-105)
[2022-12-20] MEDS: SODIUM CHLORIDE 0.9% IV 1,000 ML 999 ML IV CONT (13:55)
[2022-12-20] MEDS: EPOETIN ALFA-EPBX 4,000 UNITS/ML VIAL 4000 UNITS IV PUSH (13:56)
[2022-12-20] MEDS: EPOETIN ALFA-EPBX 3,000 UNITS/ML VIAL 6000 UNITS IV PUSH (13:56)
--- NOTE | 2022-12-20 14:40 | PC.NURSE ---
Pt returned from dialysis via bed
[2022-12-20 16:12] LABS: Glucose Point of Care 73 mg/dl (65-105)
--- NOTE | 2022-12-20 17:28 | PM.IMPN ---
Progress Note: A&P Assessment and Plan (1) Shortness of breath at rest: Code(s): R06.02 - Shortness of breath Status: Acute Assessment and Plan: Patient presenting with shortness of breath at rest. Chest x-ray does not show evidence of congestion but does show a new 1.4cm RLL lung nodule. CT A/P does show smal bibasilar pleural effusions and atelectasis. There is mild flat elevation of troponin. She was started on anti-platelet therapy. Cardiology was consulted but did not feel elevated Troponins were related to ACS. SOB better after HD. PE unlikely given that she is on Eliquis. She is on O2. Wean O2 as tolerated. (2) Elevated troponin: Code(s): R77.8 - Other specified abnormalities of plasma proteins Status: Acute Assessment and Plan: Elevation of troponin is deemed to be flat: 0.88->0.76->0.77. Currently patient asymptomatic. She was started on anti-platelet treatment. Patient was already on Eliquis, carvedilol, losartan and nifedipine at home. Reeder elevated Trop related to her renal failure. (3) Sacral decubitus ulcer: Code(s): L89.159 - Pressure ulcer of sacral region, unspecified stage Status: Acute Assessment and Plan: No evidence of osteomyelitis on abdomen pelvis CT. Wound Care consulted. Continue current dressing changes. (4) Hypertension: Qualifiers: Hypertension type: renovascular hypertension Qualified Code(s): I15.0 - Renovascular hypertension Code(s): I10 - Essential (primary) hypertension Status: Chronic Assessment and Plan: Patient's blood pressure was reviewed on 12/20 Blood pressure remains well controlled. Her BP was soft and she was symptomatic during HD. Will discuss with Nephrology to see if some of her anti-HTN medications should be held on dialysis days. Will continue current medications. (5) End-stage renal disease on hemodialysis: Code(s): N18.6 - End stage renal disease; Z99.2 - Dependence on renal dialysis Status: Acute Assessment and Plan: Patient has ESRD secondary to diabetes on dialysis Saturday. Nephrology has been consulted. (6) Chronic anemia: Code(s): D64.9 - Anemia, unspecified Status: Acute Assessment and Plan: Anemia is moderate with any hemoglobin of 8-9. macrocytic and normochromic. Iron study consistent wiht anemia of chronic disease related to her ESRD. (7) Insulin dependent type 2 diabetes mellitus: Code(s): E11.9 - Type 2 diabetes mellitus without complications; Z79.4 - long term (current) use of insulin Status: Chronic Assessment and Plan: A1c 7.1. The patient's blood glucose was reviewed on 12/20 Glucose remains well controlled. Continue AccuCheks covering with sliding scale. Hypoglycemia protocol available as needed. Continue to monitor Subjective Date/time seen: 12/20/22 17:28 Interval history: 72yo female with ESRD and DM here for shortness of breath and sacral pain from known sacral decubitus ulcer. She is somnolent but awakens easily. She is back from HD. She denies CP or SOB. Able to lie flat in bed without respiratory problems. Patient did have HD earlier and had HoTN 93/44 and became diaphoretic. Glucose was normal. She states this happens often with HD. Exam Narrative: AF 95.9 122/44 59 12 95% ra Gen - NARD Chest - clear anteriorly, nml RR. Tunneled HD catheter in the right upper chest. CV - RRR S1/S2. Tele showing no significant dysrhythmias Abd - Soft, NT/ND, Positive BS Ext - Left BKA and Right AKA Psych - somnolent Skin - Warm and dry Objective Data Vital Signs Vital Signs: Vital Signs - 24 hr 12/19/22 17:40 12/19/22 19:09 12/19/22 23:38 Temperature 97 F L Pulse Rate 70 67 61 Respiratory Rate 24 H 12 13 Blood Pressure 133/46 L 136/70 128/49 L Pulse Oximetry 96 98 94 Oxygen Delivery Room Air 12/20/22 00:10 12/20/22 02:00 12/20/22
[2022-12-20 19:37] LABS: Glucose Point of Care 109 mg/dl (65-105)
[2022-12-20] MEDS: PRAVASTATIN SODIUM 20 MG TABLET 40 MG PO (20:34)
[2022-12-21] VITALS (8 sets, daily range): BP systolic 110–115; BP diastolic 34–52; PULSE 58–70; RESP 16–18; TEMP 36.4–36.8; O2SAT 95–100
[2022-12-21 07:25] LABS: Albumin Level 3.2 g/dL (3.5-5.1); Anion Gap 7 mmol/L (8-16); Blood Urea Nitrogen 28 mg/dL (7-17); Calcium 7.4 mg/dL (8.4-10.2); Carbon Dioxide 32 mmol/L (22-30); Chloride 99 mmol/L (98-107); Estimated Glomerular Filt Rate 8; Glucose 100 mg/dL (65-110); Phosphorus 5.4 mg/dL (2.5-4.5); Potassium 4.4 mmol/L (3.4-5.0); Sodium 138 mmol/L (137-145)
[2022-12-21 09:29] LABS: Hematocrit 30.8 % (37.0-47.0); Hemoglobin 9.2 g/dL (12.0-15.0); Mean Corpuscular HGB Conc 29.9 g/dl (32-36); Mean Corpuscular Hemoglobin 30.9 pg (26-34); Mean Corpuscular Volume 103.4 fl (80-100); Mean Platelet Volume 13.5 fl (7.4-10.4); Platelet Count Result 131 k/mm3 (150-375); Red Blood Count 2.98 M/mm3 (4.2-5.4); Red Cell Distribution Width 13.4 % (11.5-14.5)
[2022-12-21 09:31] LABS: Immature Platelet Fraction Pct 13.3 % (0.9-11.2)
[2022-12-21] MEDS: SERTRALINE HCL 25 MG TABLET PO (10:13)
[2022-12-21] MEDS: APIXABAN 5 MG TABLET PO ×2 (10:13→17:49)
[2022-12-21] MEDS: NIFEdipine 30 MG TAB.ER.24 PO ×2 (10:13→21:47)
[2022-12-21] MEDS: GABAPENTIN 400 MG CAPSULE PO ×3 (10:13→17:49)
[2022-12-21] MEDS: ASPIRIN 81 MG CHEWABLE TABLET PO (10:13)
[2022-12-21] MEDS: carvediloL 25 MG TABLET PO ×2 (10:13→21:47)
[2022-12-21] MEDS: PANTOPRAZOLE 40 MG TABLET PO (10:14)
[2022-12-21] MEDS: LORATADINE 10 MG TABLET PO (10:14)
[2022-12-21] MEDS: LOSARTAN POTASSIUM 100 MG TABLET PO (10:14)
--- NOTE | 2022-12-21 11:09 | PM.PNNEP ---
Progress Note: A&P Assessment and Plan (1) End-stage renal disease on hemodialysis: Code(s): N18.6 - End stage renal disease; Z99.2 - Dependence on renal dialysis Status: Acute Assessment and Plan: The patient has end-stage renal disease. She dialyzes at [facility] under Dr. Clarke. She had dialysis yesterday. Will write orders for tomorrow's treatment. Volume status looks okay. Potassium has been good (2) Decubitus ulcer of back: Code(s): L89.109 - Pressure ulcer of unspecified part of back, unspecified stage Status: Acute Assessment and Plan: The patient will be seen by the wound nurse. Fortunately the CT does not show osteomyelitis. Management per wound nurse (3) Hypertension: Qualifiers: Hypertension type: renovascular hypertension Qualified Code(s): I15.0 - Renovascular hypertension Code(s): I10 - Essential (primary) hypertension Status: Chronic Assessment and Plan: Systolic blood pressure 113 today. Will continue outpatient medications. (4) Chronic anemia: Code(s): D64.9 - Anemia, unspecified Status: Acute Assessment and Plan: Hemoglobin is 9.3. She will get Epogen with her dialysis. (5) Insulin dependent type 2 diabetes mellitus: Code(s): E11.9 - Type 2 diabetes mellitus without complications; Z79.4 - manager intermediate (current) use of insulin Status: Chronic Assessment and Plan: Hospitalists to manage this. (6) Renal osteodystrophy: Code(s): N25.0 - Renal osteodystrophy Status: Acute Assessment and Plan: Phosphorus 5.4. She is not on any binders right now. Will start a small dose of sevelamer. (7) Coronary artery disease: Code(s): I25.10 - Atherosclerotic heart disease of [place] coronary artery without angina pectoris Status: Acute Assessment and Plan: No chest pain. Subjective Date/time seen: 12/21/22 11:09 Interval history: Tawana is feeling better today. Grandson is in the room. She is eating some popcorn. She has no chest pain or shortness of breath. Review of Systems Cardiovascular: Cardiovascular: Reports no additional cardiovascular complaints Respiratory: Respiratory: Reports no additional respiratory complaints Gastrointestinal: Gastrointestinal: Reports no additional gastrointestinal complaints Genitourinary: Genitourinary: Reports no additional female genitourinary complaints Exam Narrative: WDWN in NAD skin no rash head ncat lungs clear cor reg no rub abd BS+ nontender and soft ext no edema. Objective Data Vital Signs Vital Signs: Vital Signs - 24 hr 12/20/22 11:20 12/20/22 11:40 12/20/22 12:00 Temperature Pulse Rate 58 L 61 63 Respiratory Rate Blood Pressure 157/68 H 139/74 102/64 Pulse Oximetry Oxygen Delivery 12/20/22 11:57 12/20/22 12:20 12/20/22 12:40 Temperature 97.6 F Pulse Rate 63 63 62 Respiratory Rate 16 Blood Pressure 101/49 L 124/64 131/68 Pulse Oximetry 98 Oxygen Delivery 12/20/22 13:00 12/20/22 13:20 12/20/22 13:40 Temperature Pulse Rate 62 62 63 Respiratory Rate Blood Pressure 119/62 99/51 L 116/58 L Pulse Oximetry Oxygen Delivery 12/20/22 14:00 12/20/22 14:16 12/20/22 16:00 Temperature 98 F 95.9 F L Pulse Rate 64 62 59 L Respiratory Rate 16 12 Blood Pressure 98/46 L 93/44 L 122/44 L Pulse Oximetry 100 Oxygen Delivery 12/20/22 16:00 12/20/22 16:00 12/20/22 18:00 Temperature Pulse Rate 60 62 Respiratory Rate Blood Pressure Pulse Oximetry 95 Oxygen Delivery Room Air 12/20/22 12:00 12/20/22 14:00 12/20/22 20:01 Temperature 97.7 F Pulse Rate 62 63 109 H Respiratory Rate 16 Blood Pressure 120/47 L Pulse Oximetry 95 Oxygen Delivery 12/20/22 20:35 12/20/22 20:00 12/20/22 20:00 Temperature Pulse Rate 97 97 63 Respiratory Rate 16 Blood Pressure Pulse Oxime
[2022-12-21 12:28] LABS: Glucose Point of Care 185 mg/dl (65-105)
[2022-12-21] MEDS: INSULIN ASPART (*BKC) 100 UNITS/ML 8 UNITS SUB-Q ×2 (12:44→17:49)
[2022-12-21] MEDS: SEVELAMER CARBONATE 800 MG TABLET PO ×2 (12:44→17:49)
--- NOTE | 2022-12-21 13:28 | PCCCNOTE ---
On 12/21/22, the student, [Lorraine Flanagan], provided care and completed [facility] documentation on this patient. I have reviewed the student's documentation and agree with the findings.
--- NOTE | 2022-12-21 16:18 | PM.IMPN ---
Progress Note: A&P Assessment and Plan (1) Shortness of breath at rest: Code(s): R06.02 - Shortness of breath Status: Acute Assessment and Plan: Patient presenting with shortness of breath at rest. Chest x-ray does not show evidence of congestion but does show a new 1.4cm RLL lung nodule. CT A/P does show smal bibasilar pleural effusions and atelectasis. There is mild flat elevation of troponin. She was started on anti-platelet therapy. Cardiology was consulted but did not feel elevated Troponins were related to ACS. SOB better after HD but still on O2. PE unlikely given that she is on Eliquis. Wean O2 as tolerated. (2) Elevated troponin: Code(s): R77.8 - Other specified abnormalities of plasma proteins Status: Acute Assessment and Plan: Elevation of troponin is deemed to be flat: 0.88->0.76->0.77. Currently patient asymptomatic. She was started on anti-platelet treatment. Patient was already on Eliquis, carvedilol, losartan and nifedipine at home. [place] elevated Trop related to her renal failure. (3) Sacral decubitus ulcer: Code(s): L89.159 - Pressure ulcer of sacral region, unspecified stage Status: Acute Assessment and Plan: No evidence of osteomyelitis on abdomen pelvis CT. Wound care input appreciated. Continue Triple Care Antifungal barrier cream. Continue current wound care. (4) Hypertension: Qualifiers: Hypertension type: renovascular hypertension Qualified Code(s): I15.0 - Renovascular hypertension Code(s): I10 - Essential (primary) hypertension Status: Chronic Assessment and Plan: Patient's blood pressure was reviewed on 12/21 Blood pressure remains well controlled. Her BP was soft and she was symptomatic during HD yesterday. Discussed with Nephrology. Will hold her Nifedipine before HD tomorrow Will continue to follow (5) End-stage renal disease on hemodialysis: Code(s): N18.6 - End stage renal disease; Z99.2 - Dependence on renal dialysis Status: Acute Assessment and Plan: Patient has ESRD secondary to diabetes on dialysis Saturday. Nephrology has been consulted and appreciate thier input (6) Chronic anemia: Code(s): D64.9 - Anemia, unspecified Status: Acute Assessment and Plan: Anemia is moderate with any hemoglobin of 8-9. macrocytic and normochromic. Iron study consistent wiht anemia of chronic disease related to her ESRD. Hgb stable (7) Insulin dependent type 2 diabetes mellitus: Code(s): E11.9 - Type 2 diabetes mellitus without complications; Z79.4 - USP (current) use of insulin Status: Chronic Assessment and Plan: A1c 7.1. The patient's blood glucose was reviewed on 12/21 Glucose remains well controlled. Continue AccuCheks covering with sliding scale. Hypoglycemia protocol available as needed. Continue to monitor Subjective Date/time seen: 12/21/22 16:18 Interval history: 72yo female with ESRD and DM here for shortness of breath and sacral pain from known sacral decubitus ulcer. She is more awake and alert. Slept well last night. No n/v. No CP or SOB. Exam Narrative: AF 98.2 113/52 62 16 99% ra (on 1.5L at the time of my visit) Gen - NARD Chest - right lung base crackles. CV - RRR S1/S2. Tele showing no alarms Abd - Soft, NT/ND, Positive BS Ext - Left BKA and Right AKA Psych - more awake and alert. Skin - Warm and dry Objective Data Vital Signs Vital Signs: Vital Signs - 24 hr 12/20/22 18:00 12/20/22 20:01 12/20/22 20:35 Temperature 97.7 F Pulse Rate 62 109 H 97 Respiratory Rate 16 Blood Pressure 120/47 L Pulse Oximetry 95 Oxygen Delivery 12/20/22 20:00 12/20/22 20:00 12/20/22 23:15 Temperature 97.7 F Pulse Rate 97 63 65 Respiratory Rate 16 17 Blood Pressure 128/42 L Pulse Oximetry 95 98 Oxygen Delivery Room Air 12/21/22 08:00 12/21/22 08:00 Tem
[2022-12-21 17:45] LABS: Glucose Point of Care 118 mg/dl (65-105)
[2022-12-21 21:29] LABS: Glucose Point of Care 182 mg/dl (65-105)
[2022-12-21] MEDS: PRAVASTATIN SODIUM 20 MG TABLET 40 MG PO (21:46)
[2022-12-21] MEDS: INSULIN GLARGINE (*BKC) 100 UNITS/ML 35 UNITS SUB-Q (21:50)
--- NOTE | 2022-12-21 22:30 | PC.NURSE ---
This patient, Tawana Prado, was transferred to [facility] on 12/21/22 at 2230. Personal belongings sent with patient. Report given to Anamika JOHN. Appropriate documentation sent with patient.
--- NOTE | 2022-12-21 23:02 | PC.NURSE ---
Addendum entered by Gisselle Bautista RN 12/21/22 23:16: EDIT: Pt transferred to Room 248. Original Note: Pt transferred from IMU to 2nd Medical Room 249 @ 2338. Report received from Katie JOHN.
[2022-12-22] VITALS (22 sets, daily range): BP systolic 91–162; BP diastolic 42–73; PULSE 56–76; RESP 14–18; TEMP 35.3–37; O2SAT 94–95
[2022-12-22 05:50] LABS: Albumin Level 3.4 g/dL (3.5-5.1); Anion Gap 10 mmol/L (8-16); Blood Urea Nitrogen 44 mg/dL (7-17); Calcium 7.2 mg/dL (8.4-10.2); Carbon Dioxide 31 mmol/L (22-30); Chloride 95 mmol/L (98-107); Estimated Glomerular Filt Rate 5; Glucose 152 mg/dL (65-110); Potassium 4.4 mmol/L (3.4-5.0); Sodium 136 mmol/L (137-145)
[2022-12-22 07:59] LABS: Glucose Point of Care 147 mg/dl (65-105)
[2022-12-22] MEDS: INSULIN ASPART (*BKC) 100 UNITS/ML 8 UNITS SUB-Q ×3 (08:51→17:48)
[2022-12-22] MEDS: SEVELAMER CARBONATE 800 MG TABLET PO ×3 (08:52→17:48)
[2022-12-22] MEDS: APIXABAN 5 MG TABLET PO ×2 (09:19→17:47)
[2022-12-22] MEDS: GABAPENTIN 400 MG CAPSULE PO ×3 (09:19→17:47)
[2022-12-22] MEDS: ALBUMIN HUMAN 25% 12.5 GM/50ML 50 ML IVPB (10:06)
--- NOTE | 2022-12-22 10:36 | PM.PNNEP ---
Progress Note: A&P Assessment and Plan (1) End-stage renal disease on hemodialysis: Code(s): N18.6 - End stage renal disease; Z99.2 - Dependence on renal dialysis Status: Acute Assessment and Plan: The patient has end-stage renal disease. She dialyzes at [facility] under Dr. Clarke. Dialysis underway. She dropped her pressure and became diaphoretic last visit when we only removed 1L. Will not take any fluid off today. Volume status looks okay. Potassium has been good (2) Decubitus ulcer of back: Code(s): L89.109 - Pressure ulcer of unspecified part of back, unspecified stage Status: Acute Assessment and Plan: The patient will be seen by the wound nurse. Fortunately the CT does not show osteomyelitis. Management per wound nurse (3) Hypertension: Qualifiers: Hypertension type: renovascular hypertension Qualified Code(s): I15.0 - Renovascular hypertension Code(s): I10 - Essential (primary) hypertension Status: Chronic Assessment and Plan: Systolic blood pressure 107 today. Will continue outpatient medications. (4) Chronic anemia: Code(s): D64.9 - Anemia, unspecified Status: Acute Assessment and Plan: Hemoglobin is 9.3 last check. She will get Epogen with her dialysis. 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 (6) Renal osteodystrophy: Code(s): N25.0 - Renal osteodystrophy Status: Acute Assessment and Plan: Phosphorus 7 today She is not on any binders right now. She just started on sevelamer (7) Coronary artery disease: Code(s): I25.10 - Atherosclerotic heart disease of [place] coronary artery without angina pectoris Status: Acute Assessment and Plan: No chest pain. Subjective Date/time seen: 12/22/22 10:36 Interval history: Patient is on dialysis and tolerating it well. She was seen at 10:25 a.m.. Blood pressure is 107. Will hold off on fluid removal today. She is going to go home. Exam Narrative: WDWN in NAD skin no rash head ncat lungs clear cor reg no rub abd BS+ nontender and soft ext no edema. Objective Data Vital Signs Vital Signs: Vital Signs - 24 hr 12/21/22 12:00 12/21/22 16:00 12/21/22 16:00 Temperature 97.9 F Pulse Rate 63 60 58 L Respiratory Rate 18 Blood Pressure 110/34 L Pulse Oximetry 100 Oxygen Delivery 12/21/22 19:57 12/21/22 21:47 12/21/22 20:00 Temperature 97.6 F Pulse Rate 64 70 63 Respiratory Rate 18 Blood Pressure 115/49 L Pulse Oximetry 95 Oxygen Delivery 12/21/22 20:00 12/21/22 22:00 12/21/22 22:35 Temperature Pulse Rate 68 Respiratory Rate Blood Pressure Pulse Oximetry 95 Oxygen Delivery Room Air Room Air 12/21/22 23:27 12/22/22 00:00 12/22/22 04:00 Temperature Pulse Rate 63 65 64 Respiratory Rate Blood Pressure Pulse Oximetry Oxygen Delivery 12/22/22 05:02 Temperature 98.6 F Pulse Rate 63 Respiratory Rate 16 Blood Pressure 141/45 H Pulse Oximetry 94 Oxygen Delivery Intake/Output Intake/Output: Intake & Output 12/19/22 12/20/22 12/21/22 12/22/22 23:59 23:59 23:59 23:59 Intake Total 680 1570 240 Output Total 2420 Balance -1740 1570 240 Meds/Results Medications: Active Medications Generic Name Dose Route Start Last Admin Trade Name Freq PRN Reason Stop Dose Admin Acetaminophen 650 mg 12/20/22 10:31 12/20/22 10:48 Acetaminophen 325 Mg Tablet PO 650 mg Q4H PRN Administration Mild Pain (1-3) or Fever Apixaban 5 mg 12/20/22 09:00 12/22/22 09:19 Apixaban 5 Mg Tablet PO 5 mg BID KEMI Administration Aspirin 81 mg 12/20/22 08:00 12/21/22 10:13 Aspirin 81 Mg Chewable Tablet
--- NOTE | 2022-12-22 11:54 | PM.DS ---
DS: Admitting Diagnosis Discharge Date 12/22/22 Admitting Diagnosis Shortness of breath DS: Discharge Diagnosis Discharge Diagnosis (1) Shortness of breath at rest: Code(s): R06.02 - Shortness of breath Status: Acute (2) Elevated troponin: Code(s): R77.8 - Other specified abnormalities of plasma proteins Status: Acute (3) Sacral decubitus ulcer: Code(s): L89.159 - Pressure ulcer of sacral region, unspecified stage Status: Acute (4) Hypertension: Qualifiers: Hypertension type: renovascular hypertension Qualified Code(s): I15.0 - Renovascular hypertension Code(s): I10 - Essential (primary) hypertension Status: Chronic (5) End-stage renal disease on hemodialysis: Code(s): N18.6 - End stage renal disease; Z99.2 - Dependence on renal dialysis Status: Acute (6) Chronic anemia: Code(s): D64.9 - Anemia, unspecified Status: Acute (7) Insulin dependent type 2 diabetes mellitus: Code(s): E11.9 - Type 2 diabetes mellitus without complications; Z79.4 - terminologist (current) use of insulin Status: Chronic (8) Lung mass: Code(s): R91.8 - Other nonspecific abnormal finding of lung field Status: Acute DS: Summary Hospital Course Reason for hospitalization: 72yo female with ESRD and DM here for shortness of breath and sacral pain from known sacral decubitus ulcer. Please see H&P for details Hospital Course: Patient presented with shortness of breath at rest.? Chest x-ray did not show evidence of congestion but does show a new 1.4cm RLL lung nodule. CT A/P does show a new 1.4cm RLL pulmonary nodule suspicious for malignancy, small bibasilar pleural effusions, cirrhosis, abdominal lymphadenopathy and sacral decubitus ulcer but no abscess or evidence of osteomyelitis. Troponin was elevated but overall flat at 0.88.?She was started on anti-platelet treatment.? Patient was already on Eliquis, carvedilol, losartan and nifedipine at home. Cardiology consulted and felt elevated Trop related to her renal failure. Wound care evaluated the patient and she was started on Triple Care Antifungal barrier cream. Patient's blood pressure remained well controlled.?Her BP was soft and she was symptomatic during HD so we held her Nifedipine before HD. Patient has ESRD secondary to diabetes on dialysis Rtaqsjm-Qkjthzch-Kshtmemo.? Nephrology was consulted and HD was continued. SOB was better after HD but still on O2. PE unlikely given that she is on Eliquis. Able to wean of oxygen. It was felt her SOB was related to fluid overload. Anemia is chronic with hemoglobin of 8-9.?Iron study consistent with anemia of chronic disease related to her ESRD. A1c 7.1. The patient's blood glucose was monitored closely with AccuCheks covering with sliding scale.? Hypoglycemia protocol was available as needed.? She overall did well and was able to be discharged home on 12/22/22. Patient will need further evaluation of this lung mass with biopsy off Eliquis. Called three different times to reach daughter but no answer. I did leave a message with Dtr. No answer at the other two contacts in the chart (son and sibling). Status at Discharge Cognitive/behavioral status at discharge: stable Time Spent with Patient Time attestation: Total time spent providing and/or coordinating discharge services: 35 minutes Time spent: Greater than 30 minutes Exam Narrative: AF 98.6 141/45 63 16 94% ra Gen - NARD lying semirecumbent in bed undergoing HD Chest - lungs clear anteriorly. CV - RRR S1/S2. Tele showing frequent PACs possibly MAT vs AFib vs frequent PACs Abd - Soft, NT/ND, Positive BS Ext - Left BKA and Right AKA Psych - awake and alert. Skin - Warm and dry DS: Data Data Completed and Pending Labs on day of discharge: Labs from last 24 hours 12/22/22 12/22/22 12/21/22 07:42 05:27 21:26 Sodium 136 L Potassium 4.4 Chloride 95 L Carbon Di
[2022-12-22] MEDS: EPOETIN ALFA 10,000 UNITS/ML VIAL 10000 UNITS IV PUSH (12:33)
[2022-12-22 14:04] LABS: Glucose Point of Care 126 mg/dl (65-105)
[2022-12-22] MEDS: SERTRALINE HCL 25 MG TABLET PO (14:09)
[2022-12-22] MEDS: ASPIRIN 81 MG CHEWABLE TABLET PO (14:10)
[2022-12-22] MEDS: LORATADINE 10 MG TABLET PO (14:10)
[2022-12-22] MEDS: carvediloL 25 MG TABLET PO ×2 (14:13→20:33)
[2022-12-22] MEDS: PANTOPRAZOLE 40 MG TABLET PO (14:13)
[2022-12-22 17:31] LABS: Glucose Point of Care 136 mg/dl (65-105)
[2022-12-22] MEDS: PRAVASTATIN SODIUM 20 MG TABLET 40 MG PO (20:33)
[2022-12-22 23:00] LABS: Glucose Point of Care 118 mg/dl (65-105)
--- NOTE | 2022-12-28 11:38 | PC.NURSE ---
Blood cultures are negative. Dr. Reji buitrago.
== END 2022-12-22 22:33 | disposition home or self-care (01) ==
LOC: ANHED 22:32 → ANHIMU 12-20 00:41 → ANH2MED 12-22 12:17 → ANHIMU 12-24 12:27
PROVIDERS: Internal Medicine Nephrology; Admitting Provider Internal Medicine; Emergency Provider Emergency Medicine; PCP Internal Medicine; Visit Provider Internal Medicine
DX: R06.02 Shortness of breath (principal); R77.8 Other specified abnormalities of plasma proteins; L89.159 Pressure ulcer of sacral region, unspecified stage; D69.6 Thrombocytopenia, unspecified; E11.22 Type 2 diabetes mellitus with diabetic chronic kidney disease; I12.0 Hypertensive chronic kidney disease with stage 5 chronic kidney disease or end stage renal disease; N18.6 End stage renal disease; D63.1 Anemia in chronic kidney disease; Z99.2 Dependence on renal dialysis; E11.319 Type 2 diabetes mellitus with unspecified diabetic retinopathy without macular edema; E11.40 Type 2 diabetes mellitus with diabetic neuropathy, unspecified; E11.65 Type 2 diabetes mellitus with hyperglycemia; N25.0 Renal osteodystrophy; E78.5 Hyperlipidemia, unspecified; E87.8 Other disorders of electrolyte and fluid balance, not elsewhere classified; R59.0 Localized enlarged lymph nodes; F41.8 Other specified anxiety disorders; M86.9 Osteomyelitis, unspecified; I70.92 Chronic total occlusion of artery of the extremities; R79.89 Other specified abnormal findings of blood chemistry; R91.8 Other nonspecific abnormal finding of lung field; K74.60 Unspecified cirrhosis of liver; R91.1 Solitary pulmonary nodule; R94.31 Abnormal electrocardiogram [ECG] [EKG]; I25.10 Atherosclerotic heart disease of native coronary artery without angina pectoris; I45.2 Bifascicular block; Z95.1 Presence of aortocoronary bypass graft; Z89.611 Acquired absence of right leg above knee; Z89.021 Acquired absence of right finger(s); Z89.512 Acquired absence of left leg below knee; Z66 Do not resuscitate; F17.210 Nicotine dependence, cigarettes, uncomplicated; Z86.16 Personal history of COVID-19; Z79.01 Long term (current) use of anticoagulants; Z79.4 Long term (current) use of insulin; Z79.899 Other long term (current) drug therapy
CPT/HCPCS: 36415; 71045; 74176; 80048; 80053; 80069; 82306; 82607; 82728; 82746; 82948; 83540; 83550; 83605; 83735; 84134; 84484; 85025; 85027; 85610; 85730; 87040; 87340; 93005; 96374; 96375; 96376; 99285; A9270; G0257; G0378; J1644; J1815; J2270; J7030; P9047; Q4081; Q5105

== ENCOUNTER 2023-01-10 12:31 | Observation (INO) | payer MEDICARE, OTHER, SELFPAY ==
[2023-01-10] VITALS (43 sets, daily range): BP systolic 106–183; BP diastolic 37–105; PULSE 59–73; RESP 12–23; TEMP 36.7–36.9; O2SAT 95–100
--- NOTE | ~2023-01-10 | XR_ITS ---
EXAMINATION: XR chest 1V portable DATE: 01/10/2023 13:06 INDICATION: Chest pain. TECHNIQUE: A single frontal view of the chest was obtained. COMPARISON: Chest one view 12/19/2022 FINDINGS: There is no pneumonia, pleural effusion, or pneumothorax. The heart size is normal. Median sternotomy wires and mediastinal surgical clips are seen, likely from prior coronary artery bypass gr afting. A right internal jugular central venous catheter is seen with tip in the right atrium. IMPRESSION: 1. No acute cardiopulmonary disease. Reviewed, dictated and finalized at location A.
--- NOTE | ~2023-01-10 | CT_ITS ---
EXAMINATION:CT diagnostic chest wo con DATE: 01/11/2023 15:54 INDICATION: Lung nodule. TECHNIQUE: Computed tomography (CT) of the chest was performed without intravenous contrast. Automate d exposure control and iterative reconstruction technique were employed. The dose-length product (DLP ) was 425.08 mGy-cm. COMPARISON: CT abdomen and pelvis 12/19/2022, 10/25/2021 FINDINGS: There is a 13 mm nodule in right lung lower lobe, new from 10/25/21. There is mild atelectas is bilaterally. There are trace right and small left pleural effusions. There is a right internal jug ular central venous catheter with tip in right atrium. Cardiomegaly is noted. There are coronary sarah ry calcifications. There are changes of coronary artery bypass grafting. The liver demonstrates a nod ular surface contour, consistent with cirrhosis. Calcifications in the liver and spleen are consisten t with old granulomatous disease. There are gallstones in the gallbladder, which is normal in size. T here are widespread arterial calcifications. There is moderate thoracic spondylosis. IMPRESSION: 1. 13 mm nodule in right lung lower lobe suspicious for primary bronchogenic carcinoma. 2. Cirrhosis of the liver. 3. Small left pleural effusion. Reviewed, dictated and finalized at location A. IMPRESSION: 1. 13 mm nodule in right lung lower lobe suspicious for primary bronchogenic ca rcinoma. 2. Cirrhosis of the liver. 3. Small left pleural effusion.
--- NOTE | 2023-01-10 12:36 | ECG_ITS ---
Measurements Intervals [place] Rate: 61 P: 42 AL: 185 QRS: -74 QRSD: 137 T: -32 QT: 454 QTc: 458 Interpretive Statements SINUS RHYTHM MARKED LEFT AXIS DEVIATION [QRS AXIS < -30] RIGHT BUNDLE BRANCH BLOCK [120+ ms QRS DURATION, UPRIGHT V1, 40+ ms S IN I/aVL/V4/V5/V6] MODERATE T-WAVE ABNORMALITY, CONSIDER LATERAL ISCHEMIA [-0.1+ mV T WAVE IN I/aVL/V5/V6] ABNORMAL ECG COMPARED TO ECG 12/19/2022 20:34:34 LEFT-AXIS DEVIATION NOW PRESENT Electronically Signed On 01-10-2023 13:09:06 CDT by Noé Calzada M.D.
[2023-01-10 13:07] LABS: Basophils Percent Auto 0.7 % (0.2-1.2); Eosinophils Absolute Auto 0.2 K/mm3 (0-0.3); Eosinophils Percent Auto 3.5 % (0-4.4); Hematocrit 32.3 % (37.0-47.0); Hemoglobin 9.9 g/dL (12.0-15.0); Immature Granulocyte Absolute 0.02 K/mm3 (0.00-0.031); Immature Granulocyte Percent A 0.4 % (0-0.5); Immature Platelet Fraction Pct 8.3 % (0.9-11.2); Lymphocytes Absolute Auto 0.92 K/mm3 (0.9-3.2); Lymphocytes Percent Auto 20.3 % (18.3-44.2); Mean Corpuscular HGB Conc 30.7 g/dl (32-36); Mean Corpuscular Hemoglobin 30.7 pg (26-34); Mean Platelet Volume 12.1 fl (7.4-10.4); Monocytes Absolute Auto 0.3 K/mm3 (0.1-0.6); Monocytes Percent Auto 6.4 % (2.6-8.5); Neutrophils Absolute Auto 3.1 K/mm3 (1.3-6.7); Neutrophils Percent Auto 68.7 % (45.5-73.1); Platelet Count Result 108 k/mm3 (150-375); Red Blood Count 3.23 M/mm3 (4.2-5.4); Red Cell Distribution Width 13.2 % (11.5-14.5); White Blood Count 4.5 K/mm3 (4.5-10.0)
[2023-01-10 13:16] LABS: INR 1.4; Prothrombin Time 18.4 Seconds (11.1-14.7)
[2023-01-10 13:17] LABS: Alanine Aminotransferase 13 U/L (6-35); Albumin Level 3.6 g/dL (3.5-5.1); Alkaline Phosphatase 108 U/L (38-126); Anion Gap 6 mmol/L (8-16); Aspartate Amino Transferase 17 U/L (14-36); Bilirubin,Total 0.4 mg/dL (0.2-1.3); Blood Urea Nitrogen 26 mg/dL (7-17); Calcium 7.9 mg/dL (8.4-10.2); Carbon Dioxide 34 mmol/L (22-30); Chloride 100 mmol/L (98-107); Estimated Glomerular Filt Rate 10; Glucose 156 mg/dL (65-110); Lipase 209 U/L (23-300); Partial Thromboplastin Time 40.5 SECONDS (22.3-36.8); Potassium 4.5 mmol/L (3.4-5.0); Sodium 140 mmol/L (137-145)
[2023-01-10] MEDS: ASPIRIN 81 MG CHEWABLE TABLET 324 MG PO (13:17)
[2023-01-10 13:27] LABS: Troponin I < 0.012 ng/mL (0.000-0.034)
--- NOTE | 2023-01-10 15:20 | ED.CHESTPAIN ---
HPI - Chest Pain General Chief Complaint: Chest Pain Stated Complaint: cp Time Seen by Provider: 01/10/23 14:39 Source: patient Limitations: no limitations History of Present Illness HPI narrative: Patient is a 72-year-old female presents to the emergency department complaining of chest pain. Patient states she was at dialysis which she typically gets Saturday and Saturday for usually 3 hours at a time and about 1 hour and 2 the dialysis session she gradually noticed left-sided chest pain described as a stretching sensation that was nonradiating with associated shortness of breath, notes that it lasted until she arrived in the emergency department and is since resolved and not recurred while being present in the emergency department. Patient admits to a history of this pain in the past when getting dialysis. Patient notes that she sees a packaging line attendant on a regular basis and last saw 1 about 3 weeks ago. Patient admits to a history of a CABG. Patient admits to being a smoker. Patient denies cough, fever, recent injuries, recent illness, diarrhea, vomiting, melena, hematochezia, vaginal bleeding, abdominal pain, numbness, weakness, headache, vision changes, sore throat. Patient states that currently overall she feels well. Patient denies noticing anything associated with exertion in regards to pain. Patient denies history of blood clots or use of blood thinners. Patient denies diaphoresis. Related Data Home Medications Medication Instructions Recorded Confirmed apixaban 5 mg tablet (Eliquis) 5 mg PO BID 11/03/19 01/10/23 carvedilol 25 mg tablet 25 mg PO BID 11/03/19 01/10/23 insulin degludec 100 unit/mL 35 unit subcut HS 11/03/19 01/10/23 subcutaneous solution (Tresiba U-100 Insulin) pravastatin 40 mg tablet 40 mg PO HS 11/03/19 01/10/23 sertraline 25 mg tablet 25 mg PO DAILY 02/11/20 01/10/23 cetirizine 10 mg tablet 10 mg PO DAILY 02/06/22 01/10/23 insulin aspart U-100 100 unit/mL 8 unit subcut TIDWMEAL 02/28/22 01/10/23 (3 mL) subcutaneous pen (Novolog FlexPen U-100 Insulin aspart) pantoprazole 40 mg tablet,delayed 40 mg PO DAILY Heartburn 02/28/22 01/10/23 release gabapentin 400 mg capsule 400 mg PO TID 12/09/22 01/10/23 losartan 100 mg tablet 100 mg PO DAILY 12/09/22 01/10/23 Allergies Allergy/AdvReac Type Severity Reaction Status Date / Time No Known Allergies Allergy Verified 01/10/23 13:13 [facility] Past Medical History Medical History Anxiety with depression Arterial vascular disease Chronic anemia Coronary artery disease COVID Digital arterial occlusive disease End-stage renal disease on hemodialysis Saturday, , Saturday. 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 Hemoglobin A1c was 6.8% in February 2020. Osteomyelitis Renal osteodystrophy Thrombocytopenia Surgical History Surgical History Amputation of right forefoot Right 4th and 5th ray amputation in 04/2017. Right foot transmetatarsal amputation with partial fasciotomy due to wet gangrene, osteomyelitis, and necrotizing fasciitis in May 2017. 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 History of below-knee amputation of both lower extremities Left cdysa-avu-vthc amputation in 2017. Right lovqs-snf-hggo amputation in 02/2020. 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 History of vascular surgery Right lower extremity stents in March 2017. Left lower extremity stent in 2014
[2023-01-10 16:00] LABS: NT Pro B Type Natriuretic Pept > 30000 pg/mL (19.9-100); Troponin I < 0.012 ng/mL (0.000-0.034)
--- NOTE | 2023-01-10 19:00 | PC.NURSE ---
Assumed care of pt. at this time. Report from ALVARO Sarmiento
[2023-01-10 19:04] LABS: Troponin I < 0.012 ng/mL (0.000-0.034)
[2023-01-10] MEDS: NIFEdipine 30 MG TAB.ER.24 PO (23:29)
[2023-01-10] MEDS: GABAPENTIN 400 MG CAPSULE PO (23:29)
[2023-01-10] MEDS: APIXABAN 5 MG TABLET PO (23:29)
[2023-01-10] MEDS: INSULIN GLARGINE (*BKC) 100 UNITS/ML 35 UNITS SUB-Q (23:29)
[2023-01-10] MEDS: carvediloL 25 MG TABLET PO (23:29)
--- NOTE | 2023-01-10 23:38 | PM.IMHP ---
H&P: HPI History of Present Illness Date/Time: 01/10/23 23:38 [facility] Past Medical History Medical History Anxiety with depression Arterial vascular disease Chronic anemia Coronary artery disease COVID Digital arterial occlusive disease End-stage renal disease on hemodialysis Saturday, , Saturday. 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 Hemoglobin A1c was 6.8% in February 2020. Osteomyelitis Renal osteodystrophy Thrombocytopenia Surgical History Surgical History Amputation of right forefoot Right 4th and 5th ray amputation in 04/2017. Right foot transmetatarsal amputation with partial fasciotomy due to wet gangrene, osteomyelitis, and necrotizing fasciitis in May 2017. 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 History of below-knee amputation of both lower extremities Left qddpd-now-omty amputation in 2017. Right jpsqy-qjo-jyuk amputation in 02/2020. 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 History of vascular surgery Right lower extremity stents in March 2017. Left lower extremity stent in 2014. Family History Family History Mother Diabetes mellitus Father Lung cancer Acute myocardial infarction Sibling Diabetes mellitus Social History Social History Social History: The patient currently lives with her sister. She is . She is retired. She has a son and a daughter. Surrogate medical decision maker: Kierra Blanton (sister) or Cyndi Blanton (daughter). Code status: DNR Smoking packs per day: 0.15 Smoking cigarettes per day: 3.0 Years smoked: 59 Smoking pack-years: 8.85 Smoking status: Current every day smoker Tobacco type: cigarettes Second hand tobacco smoke exposure: Yes Additional smoking assessment comments: 4 daily currently Alcohol intake: never Drinks per week: 1 Alcohol use details: Previous social drinker. Substance use: never Substance use type: does not use Lack of Transportation: YES Lack of Food: Never True Current Housing: I Have Housing Concerned About Future Housing: No Difficulty Paying Gas/Electric Bills: No Difficulty Paying for Meds: No Currently Unemployed: No Education: Grade School Difficulty w/ Childcare or Family Care: No Living arrangements: with family Additional living arrangements comments: Lives in [place]. Sister lives with her. Spiritual care concerns: No Meds Home Medications and Allergies Home Medications Medication Instructions Recorded Confirmed Type apixaban 5 mg tablet (Eliquis) 5 mg PO BID 11/03/19 01/10/23 History carvedilol 25 mg tablet 25 mg PO BID 11/03/19 01/10/23 History insulin degludec 100 unit/mL 35 unit subcut HS 11/03/19 01/10/23 History subcutaneous solution (Tresiba U-100 Insulin) pravastatin 40 mg tablet 40 mg PO DAILY 11/03/19 01/10/23 History sertraline 25 mg tablet 25 mg PO DAILY 02/11/20 01/10/23 History cetirizine 10 mg tablet 10 mg PO DAILY 02/06/22 01/10/23 History insulin aspart U-100 100 unit/mL 8 unit subcut TIDWMEAL 02/28/22 01/10/23 History (3 mL) subcutaneous pen (Novolog FlexPen U-100 Insulin aspart) pantoprazole 40 mg tablet,delayed 40 mg PO DAILY Heartburn 02/28/22 01/10/23 History release gabapentin 400 mg capsule 400 mg PO TID 12/09/22 01/10/23 History losartan 100 m
[2023-01-10 23:40] LABS: Glucose Point of Care 120 mg/dl (65-105)
[2023-01-11] VITALS (13 sets, daily range): BP systolic 133–163; BP diastolic 31–56; PULSE 58–98; RESP 16–20; TEMP 36.1–37; O2SAT 91–99
[2023-01-11] MEDS: SEVELAMER CARBONATE 800 MG TABLET PO ×3 (08:38→16:59)
[2023-01-11] MEDS: INSULIN ASPART (*BKC) 100 UNITS/ML 8 UNITS SUB-Q ×2 (08:38→11:38)
[2023-01-11] MEDS: LOSARTAN POTASSIUM 100 MG TABLET PO (08:39)
[2023-01-11] MEDS: APIXABAN 5 MG TABLET PO ×2 (08:40→16:59)
[2023-01-11] MEDS: carvediloL 25 MG TABLET PO ×2 (08:40→16:59)
[2023-01-11] MEDS: PRAVASTATIN SODIUM 20 MG TABLET 40 MG PO (08:40)
[2023-01-11] MEDS: PANTOPRAZOLE 40 MG TABLET PO (08:41)
[2023-01-11] MEDS: SERTRALINE HCL 25 MG TABLET PO (08:41)
[2023-01-11] MEDS: LORATADINE 10 MG TABLET PO (08:41)
[2023-01-11] MEDS: GABAPENTIN 400 MG CAPSULE PO ×2 (08:41→16:59)
[2023-01-11] MEDS: NIFEdipine 30 MG TAB.ER.24 PO ×2 (08:41→20:50)
[2023-01-11 08:49] LABS: Glucose Point of Care 68 mg/dl (65-105)
[2023-01-11 11:46] LABS: Glucose Point of Care 61 mg/dl (65-105)
--- NOTE | 2023-01-11 14:41 | PM.IMHP ---
H&P: HPI History of Present Illness Date/Time: 01/24/23 07:41 Chief Complaint: Chest pain Narrative: 72-year-old female present to the ED with complaint of shortness of breath and chest pain.? She was of the dialysis which she typically gets Saturday.? While on dialysis yesterday she noticed stretching sensation and her retro sternum nonradiating associated with shortness of breath.? It lasted until she arrived to the ED and has resolved since then.? She sees a ui engineer at [facility].? She has a history of CABG.? She is smoker no cough fever.? EKG was done which showed nonspecific ST-T changes.? Troponin was negative chest x-ray was negative.? He currently feels well.? Denies any new pain.? She has history of peripheral vascular disease insulin-dependent diabetes mellitus hypertension hyperlipidemia status post AKA right and BKA left history of osteomyelitis.? And chronic anemia lipase was 209 BNP was greater than 30,000.? She is admitted for further observation.? She feels back to her normal self Review of Systems Review of Systems: - CONSTITUTIONAL: Denies weight loss, fever and chills. - HEENT: Denies changes in vision and hearing - RESPIRATORY: Denies SOB and cough. - CV: Denies palpitations and reports CP. - GI: Denies abdominal pain, nausea, vomiting and diarrhea. - : Denies dysuria and urinary frequency. - MSK: Denies myalgia and joint pain. - SKIN: Denies rash and pruritus. - NEUROLOGICAL: Denies headache and syncope. - PSYCHIATRIC: Denies recent changes in mood. Denies anxiety and depression. [facility] Past Medical History Medical History Anxiety with depression Arterial vascular disease Chronic anemia Coronary artery disease COVID Digital arterial occlusive disease End-stage renal disease on hemodialysis Saturday, , Saturday. 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 Hemoglobin A1c was 6.8% in February 2020. Osteomyelitis Renal osteodystrophy Thrombocytopenia Surgical History Surgical History Amputation of right forefoot Right 4th and 5th ray amputation in 04/2017. Right foot transmetatarsal amputation with partial fasciotomy due to wet gangrene, osteomyelitis, and necrotizing fasciitis in May 2017. 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 History of below-knee amputation of both lower extremities Left ehvrd-vth-osvr amputation in 2017. Right abcju-ram-cgjl amputation in 02/2020. 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 History of vascular surgery Right lower extremity stents in March 2017. Left lower extremity stent in 2014. Family History Family History Mother Diabetes mellitus Father Lung cancer Acute myocardial infarction Sibling Diabetes mellitus Social History Social History Social History: The patient currently lives with her sister. She is . She is retired. She has a son and a daughter. Surrogate medical decision maker: Kierra Blanton (sister) or Cyndi Blanton (daughter). Code status: DNR Smoking packs per day: 0.15 Smoking cigarettes per day: 3.0 Years smoked: 59 Smoking pack-years: 8.85 Smoking status: Current every day smoker Tobacco type: cigarettes Second hand tobacco smoke exposure: Yes Additional smoking assessment comments: 4 daily currently Al
--- NOTE | 2023-01-11 14:57 | PM.IMPN ---
Progress Note: A&P Assessment and Plan (1) Chest pain: Code(s): R07.9 - Chest pain, unspecified Status: Acute (2) Hypertension: Qualifiers: Hypertension type: renovascular hypertension Qualified Code(s): I15.0 - Renovascular hypertension Code(s): I10 - Essential (primary) hypertension Status: Chronic (3) Arterial vascular disease: Code(s): I70.90 - Unspecified atherosclerosis Status: Acute (4) History of amputation below knee: Code(s): Z89.519 - Acquired absence of unspecified leg below knee Status: Acute (5) End-stage renal disease on hemodialysis: Code(s): N18.6 - End stage renal disease; Z99.2 - Dependence on renal dialysis Status: Acute (6) Chronic anemia: Code(s): D64.9 - Anemia, unspecified Status: Acute (7) Insulin dependent type 2 diabetes mellitus: Code(s): E11.9 - Type 2 diabetes mellitus without complications; Z79.4 - penitentiary (current) use of insulin Status: Chronic Plan 72-year-old female present to the ED with complaint of shortness of breath and chest pain. She was of the dialysis which she typically gets Saturday. While on dialysis yesterday she noticed stretching sensation and her retro sternum nonradiating associated with shortness of breath. It lasted until she arrived to the ED and has resolved since then. She sees a cone former at [facility]. She has a history of CABG. She is smoker no cough fever. EKG was done which showed nonspecific ST-T changes. Troponin was negative chest x-ray was negative. He currently feels well. Denies any new pain. She has history of peripheral vascular disease insulin-dependent diabetes mellitus hypertension hyperlipidemia status post AKA right and BKA left history of osteomyelitis. And chronic anemia lipase was 209 BNP was greater than 30,000. She is admitted for further observation. She feels back to her normal self. Continue to monitor for any chest pain. With subtle new changes in the EKG will repeat [address] abdomen pelvis showed right lower lobe 1.4 cm nodule patient already on Eliquis and needs to be off Eliquis for biopsy PE unlikely as she is on Eliquis she was recently started on antiplatelet therapy for underlying coronary artery disease continue on carvedilol losartan nifedipine has sacral decubitus ulcer will get dedicated CT chest today. Stress test 02/22 was negative with ejection fraction 56% Subjective Date/time seen: 01/11/23 14:57 Interval history: 72-year-old female present to the ED with complaint of shortness of breath and chest pain. She was of the dialysis which she typically gets Saturday. While on dialysis yesterday she noticed stretching sensation and her retro sternum nonradiating associated with shortness of breath. It lasted until she arrived to the ED and has resolved since then. She sees a cone former at [facility]. She has a history of CABG. She is smoker no cough fever. EKG was done which showed nonspecific ST-T changes. Troponin was negative chest x-ray was negative. He currently feels well. Denies any new pain. She has history of peripheral vascular disease insulin-dependent diabetes mellitus hypertension hyperlipidemia status post AKA right and BKA left history of osteomyelitis. And chronic anemia lipase was 209 BNP was greater than 30,000. She is admitted for further observation. She feels back to her normal self Review of Systems Review of Systems: All systems reviewed & are unremarkable except as noted in HPI and below Exam Narrative: Gen - NARD lying semirecumbent in bed undergoing HD Chest - lungs clear anteriorly. CV - RRR S1/S2. Abd - Soft, NT/ND, Positive BS Ext - Left BKA and Right AKA Psych - awake and alert. Skin - Warm and dry Objective Data Vital Signs Vital Signs: Vital Signs - 24 hr 01/10/23 15:00 01/10/23 15:01 01/10/23 15:16 Temperature Pul
--- NOTE | 2023-01-11 15:00 | PM.CNNEP ---
Assessment and Plan Assessment and plan (1) End stage renal disease: Assessment and Plan: plan HD tomorrow and continue T/T/S dialysis schedule while hospitalized follow electrolytes, volume status, and clearance (2) Chest pain: Code(s): R07.9 - Chest pain, unspecified Status: Acute Assessment and Plan: no further episodes since admission she thinks it was precipitated by dialysis staff attempting to remove too much fluid to fast... continue supportive therapy (3) Hypertension: Assessment and Plan: reasonable control at this time resumed on home medications follow trend of hemodynamics (4) Anemia: Assessment and Plan: due to ESRD close to goal Epogen with HD follow trend of H/H (5) Insulin dependent type 2 diabetes mellitus: Assessment and Plan: follow accuchecks glycemic control per hospitalists I will continue follow the patient with you while she remains hospitalized make further recommendations during her hospital course. Thank you for allowing me to participate in the care of this patient. History of Present Illness Reason for Consult Consult date: 01/11/23 Reason for consult: end stage renal disease Chief Complaint Chief complaint: chest pain History of Present Illness Narrative: The patient is a 72-year-old female with a past medical history as outlined below who presented to [facility] Emergency Room with complaints of chest pain. The patient went to her regularly scheduled dialysis treatment yesterday. She started her dialysis treatment without any issues or problems but then about an hour into her treatment she developed left-sided chest pain. She described the chest pain as a stretching sensation with no radiation but was associated with mild shortness of breath. Given these symptoms, her dialysis treatment was aborted and EMS was called and she was subsequently transported to the emergency room for further assessment. On further questioning, the patient admits that she has had symptoms like this before in the past when getting dialysis and usually resolves with discontinuation of dialysis in general. She does state that in the past, she has associated the symptoms with the dialysis nursing staff being too aggressive and in fluid removal. She reported no other symptoms with regard to fever, chills, nausea, vomiting, diarrhea, dysuria, abdominal pain, weakness, lightheadedness, or any other subjective symptoms. Workup and evaluation emergency room demonstrated the patient be hemodynamically stable and would seem that her chest pain symptoms resolved by the time of her arrival. Routine blood test demonstrated labs consistent with her known history of end-stage renal disease without any critical electrolyte abnormalities. Her chest x-ray did not show any significant pulmonary findings either. However, given her significant risk profile and history, she was admitted the hospital for further evaluation and therapy. Since her admission, as noted earlier, she reports no further chest pain and appears to be back to her baseline. Renal consultation was requested due to her end-stage renal disease. The patient normally dialyzes on a Saturday, , Saturday dialysis schedule at [facility] under the care of Dr. Clarke. She usually does reasonably well with her dialysis treatments although her compliance with dialysis in general is not very good as noted by her recurrent admissions here at [facility] for volume overload and hyperkalemia. Her last dialysis treatment was yesterday but only received a partial treatment as her dialysis treatment was aborted/discontinued when she starting having chest pain. She is tentatively due for dialysis tomorrow. Currently, at the time my visit, she appears in no distress Review of Systems Review of Systems: As per HPI. [facility] Past Medical History Medical Histo
--- NOTE | 2023-01-11 15:01 | ECG_ITS ---
Measurements Intervals [place] Rate: 67 P: 38 UT: 181 QRS: -86 QRSD: 148 T: 82 QT: 449 QTc: 475 Interpretive Statements SINUS RHYTHM MARKED LEFT AXIS DEVIATION [QRS AXIS < -30] RIGHT BUNDLE BRANCH BLOCK [120+ ms QRS DURATION, UPRIGHT V1, 40+ ms S IN I/aVL/V4/V5/V6] ABNORMAL ECG COMPARED TO ECG 01/10/2023 12:42:02 NO SIGNIFICANT CHANGES Electronically Signed On 01-12-2023 12:36:14 CDT by Noé Calzada M.D.
--- NOTE | 2023-01-11 16:57 | PC.NURSE ---
This RN took over for previous RN. This RN proceeded to do 1700 med pass and seen that Gabapentin from 1300 was hanging out on chart. Pt not sure if she received medication or not. Medication non-admin on aug. Pt received 1700 dose from this RN
[2023-01-11] MEDS: INSULIN ASPART (*BKC) 100 UNITS/ML 6 UNITS SUB-Q (16:59)
[2023-01-11 17:05] LABS: Glucose Point of Care 118 mg/dl (65-105)
[2023-01-11 20:48] LABS: Glucose Point of Care 130 mg/dl (65-105)
[2023-01-11] MEDS: INSULIN GLARGINE (*BKC) 100 UNITS/ML 24 UNITS SUB-Q (20:50)
[2023-01-12] VITALS (18 sets, daily range): BP systolic 109–167; BP diastolic 39–71; PULSE 54–67; RESP 13–16; TEMP 36–36.8; O2SAT 95–96
[2023-01-12 04:55] LABS: Basophils Percent Auto 0.4 % (0.2-1.2); Eosinophils Absolute Auto 0.2 K/mm3 (0-0.3); Eosinophils Percent Auto 4.7 % (0-4.4); Hematocrit 31.1 % (37.0-47.0); Hemoglobin 9.5 g/dL (12.0-15.0); Immature Granulocyte Absolute 0.01 K/mm3 (0.00-0.031); Immature Granulocyte Percent A 0.2 % (0-0.5); Immature Platelet Fraction Pct 6.6 % (0.9-11.2); Lymphocytes Absolute Auto 1.51 K/mm3 (0.9-3.2); Lymphocytes Percent Auto 33.5 % (18.3-44.2); Mean Corpuscular HGB Conc 30.5 g/dl (32-36); Mean Corpuscular Hemoglobin 30.9 pg (26-34); Mean Corpuscular Volume 101.3 fl (80-100); Mean Platelet Volume 11.7 fl (7.4-10.4); Monocytes Absolute Auto 0.3 K/mm3 (0.1-0.6); Monocytes Percent Auto 7.3 % (2.6-8.5); Neutrophils Absolute Auto 2.4 K/mm3 (1.3-6.7); Neutrophils Percent Auto 53.9 % (45.5-73.1); Platelet Count Result 116 k/mm3 (150-375); Red Blood Count 3.07 M/mm3 (4.2-5.4); Red Cell Distribution Width 13.2 % (11.5-14.5); White Blood Count 4.5 K/mm3 (4.5-10.0)
[2023-01-12 05:04] LABS: Alanine Aminotransferase 13 U/L (6-35); Albumin Level 3.3 g/dL (3.5-5.1); Alkaline Phosphatase 92 U/L (38-126); Anion Gap 8 mmol/L (8-16); Aspartate Amino Transferase 17 U/L (14-36); Bilirubin,Total 0.4 mg/dL (0.2-1.3); Blood Urea Nitrogen 40 mg/dL (7-17); Calcium 7.6 mg/dL (8.4-10.2); Carbon Dioxide 29 mmol/L (22-30); Chloride 100 mmol/L (98-107); Estimated Glomerular Filt Rate 6; Glucose 90 mg/dL (65-110); Magnesium 2.4 mg/dL (1.6-2.3); Sodium 137 mmol/L (137-145)
[2023-01-12 05:55] LABS: Hepatitis B Surface Antigen Negative (Negative)
[2023-01-12 07:18] LABS: Hepatitis B Surface Anti Res Indeterminate
[2023-01-12 07:33] LABS: Glucose Point of Care 86 mg/dl (65-105)
[2023-01-12] MEDS: SEVELAMER CARBONATE 800 MG TABLET PO (09:50)
--- NOTE | 2023-01-12 10:45 | PM.PNNEP ---
Progress Note: A&P Assessment and Plan (1) End stage renal disease: Code(s): N18.6 - End stage renal disease Status: Chronic Assessment and Plan: HD todayand continue T/T/S dialysis schedule while hospitalized follow electrolytes, volume status, and clearance (2) Chest pain: Code(s): R07.9 - Chest pain, unspecified Status: Acute Assessment and Plan: no further episodes since admission she thinks it was precipitated by dialysis staff attempting to remove too much fluid to fast... continue supportive therapy (3) Hypertension: Qualifiers: Qualified Code(s): I15.0 - Renovascular hypertension Code(s): I10 - Essential (primary) hypertension Status: Chronic Assessment and Plan: can be quite erratic at times resumed on home medications follow trend of hemodynamics (4) Anemia: Code(s): D64.9 - Anemia, unspecified Status: Chronic Assessment and Plan: due to ESRD close to goal Epogen with HD follow trend of H/H (5) Insulin dependent type 2 diabetes mellitus: Code(s): E11.9 - Type 2 diabetes mellitus without complications; Z79.4 - skilled nursing (current) use of insulin Status: Chronic Assessment and Plan: follow accuchecks glycemic control per hospitalists Not opposed to discharge from renal perspective if otherwise medically stable. Will continue to follow. Subjective Date/time seen: 01/12/23 10:45 Interval history: Follow-up for end stage renal disease on hemodialysis. Tolerating hemodialysis treatment at the time of my visit (seen on HD at 10:35AM); no issues/events overnight or earlier this morning; no apparent distress noted; no further chest pain episodes since her admission to the hospital. Exam Narrative: General: elderly female in NAD Heart: normal S1 and S2; no rub Lungs: clear anteriorly; decreased at bases Abdomen: soft, nontender, nondistended, positive bowel sounds Extremities: no cyanosis or clubbing; no edema; s/p left BKA and right AKA Skin: warm and intact Objective Data Vital Signs Vital Signs: Vital Signs Temp Pulse Resp BP Pulse Ox O2 Del Method 01/12/23 10:40 57 L 156/66 H 01/12/23 10:20 55 L 141/54 H 01/12/23 10:00 58 L 153/49 H 01/12/23 09:40 57 L 143/48 H 01/12/23 09:21 67 147/69 H 01/12/23 09:10 98.0 F 63 16 135/55 L 01/12/23 08:00 Room Air 01/12/23 08:00 59 L 01/12/23 07:58 98.3 F 64 13 109/39 L 95 01/12/23 04:00 61 01/12/23 00:00 64 01/12/23 00:00 97.6 F 64 16 131/44 L 96 01/11/23 20:00 73 01/11/23 20:00 Room Air 01/11/23 19:56 97.1 F L 71 18 133/31 L 96 01/11/23 16:00 98.6 F 70 20 162/53 H 91 01/11/23 16:59 72 01/11/23 16:00 98 01/11/23 14:00 65 01/11/23 12:00 65 01/11/23 12:00 97.7 F 65 20 135/55 L 99 01/11/23 12:00 Room Air Intake/Output Intake/Output: Intake & Output 01/09/23 01/10/23 01/11/23 01/12/23 23:59 23:59 23:59 23:59 Intake Total 610 800 Output Total 150 Balance 610 650 Meds/Results Medications: Active Medications Generic Name Dose Route Start Last Admin Trade Name Freq PRN Reason Stop Dose Admin Acetaminophen 1,000 mg 01/10/23 22:57 Acetaminophen 500 Mg Tablet PO Q6H PRN Pain1-5 Albuterol 2 puff 01/10/23 22:57 Albuterol Sulfate (*Sp) Aerosol 1 Puff INHALATION QID PRN Shortness Of Breath Or Wheezing Apixaban 5 mg 01/10/23 23:15 01/11/23 16:59 Apixaban 5 Mg Tablet PO 5 mg BID KEMI Administration Calcium Carbonate 200 mg 01/12/23 11:00 Calcium Carbonate (Tums) 500 Mg (200 Mg Elemental) PO DAILY KEMI Carvedilol 25 mg 01/10/23 23:00 01/11/23 16:59 Carvedilol 25 Mg Tablet PO 25 mg BID KEMI Administration Dextrose 12.5 gm 01/10/23 22:59 Dextrose 50% 25 Gm/50 Ml Syringe
[2023-01-12] MEDS: EPOETIN ALFA 10,000 UNITS/ML VIAL 10000 UNITS IV PUSH (11:24)
--- NOTE | 2023-01-12 15:08 | PM.DS ---
DS: Admitting Diagnosis Discharge Date 01/12/2023 Admitting Diagnosis shortness of breath DS: Discharge Diagnosis Discharge Diagnosis (1) Chest pain: Code(s): R07.9 - Chest pain, unspecified Status: Acute (2) Hypertension: Qualifiers: Hypertension type: renovascular hypertension Qualified Code(s): I15.0 - Renovascular hypertension Code(s): I10 - Essential (primary) hypertension Status: Chronic (3) Arterial vascular disease: Code(s): I70.90 - Unspecified atherosclerosis Status: Acute (4) History of amputation below knee: Code(s): Z89.519 - Acquired absence of unspecified leg below knee Status: Acute (5) End-stage renal disease on hemodialysis: Code(s): N18.6 - End stage renal disease; Z99.2 - Dependence on renal dialysis Status: Acute (6) Chronic anemia: Code(s): D64.9 - Anemia, unspecified Status: Acute (7) Insulin dependent type 2 diabetes mellitus: Code(s): E11.9 - Type 2 diabetes mellitus without complications; Z79.4 - roasterman (current) use of insulin Status: Chronic DS: Summary Hospital Course Hospital Course: 72-year-old female present to the ED with complaint of shortness of breath and chest pain.? She was of the dialysis which she typically gets Saturday.? While on dialysis she noticed stretching sensation and her retro sternum nonradiating associated with shortness of breath.? It lasted until she arrived to the ED and has resolved since then.? She sees a dental cream maker at [facility].? She has a history of CABG.? She is smoker no cough fever.? EKG was done which showed nonspecific ST-T changes.? Troponin was negative chest x-ray was negative.? He currently feels well.? Denies any new pain.? She has history of peripheral vascular disease insulin-dependent diabetes mellitus hypertension hyperlipidemia status post AKA right and BKA left history of osteomyelitis.? And chronic anemia lipase was 209 BNP was greater than 30,000.? She is admitted for further observation.? She feels back to her normal self with no further recurrence of chest pain /shortness of breath.? Recent CT abdomen pelvis showed right lower lobe 1.4 cm nodule patient already on Eliquis and needs to be off Eliquis for biopsy PE unlikely as she is on Eliquis she was recently started on antiplatelet therapy for underlying coronary artery disease continue on carvedilol losartan nifedipine has sacral decubitus ulcer. dedicated CT chest Reveals 13 mm nodule in right lung lower lobe suspicious for primary bronchogenic carcinoma along with cirrhosis of liver and small left pleural effusion. This was discussed with the patient and suggested possible biopsy of this lesion with further workup. She does 1 do any further workup as suggested to follow up with PCP /Pulmonary in case she decides to undergo further treatment and evaluation. She also had Stress test 02/22 which was negative with ejection fraction 56%. She will be discharged back home to follow-up with PCP for ongoing management. She also sees regular dental cream maker was suggested to follow-up with. Time Spent with Patient Time attestation: Total time spent providing and/or coordinating discharge services: 45 minutes Exam Narrative: Gen - NARD lying semirecumbent in bed undergoing HD Chest - lungs clear anteriorly. CV - RRR S1/S2. Abd - Soft, NT/ND, Positive BS Ext - Left BKA and Right AKA Psych - awake and alert. Skin - Warm and dry DS: Data Data Completed and Pending Labs on day of discharge: Labs from last 24 hours 01/12/23 01/12/23 01/12/23 07:30 04:41 04:40 WBC 4.5 RBC 3.07 L Hgb 9.5 L Hct 31.1 L MCV 101.3 H MCH 30.9 MCHC 30.5 L RDW 13.2 Plt Count 116 L MPV 11.7 H Immature Gran % (Auto) 0.2 Neut % (Auto) 53.9 Lymph % (Auto) 33.5 [place] % (Auto) 7.3 Eos % (Auto) 4.7 H Baso % (Auto) 0.4 Lymph # (Auto) 1.51 [place] # (A
== END 2023-01-12 16:49 | disposition home or self-care (01) ==
LOC: ANHED 17:44 → ANHIMU 21:16
PROVIDERS: Internal Medicine Nephrology; Preventive Medicine Aerospace Medicine; Admitting Provider Internal Medicine; Emergency Provider Student in an Organized Health Care Education/Training Program; PCP Internal Medicine; Visit Provider Internal Medicine
DX: I12.0 Hypertensive chronic kidney disease with stage 5 chronic kidney disease or end stage renal disease (principal); R07.9 Chest pain, unspecified; R06.02 Shortness of breath; I70.90 Unspecified atherosclerosis; E11.22 Type 2 diabetes mellitus with diabetic chronic kidney disease; N18.6 End stage renal disease; Z99.2 Dependence on renal dialysis; I25.10 Atherosclerotic heart disease of native coronary artery without angina pectoris; E78.5 Hyperlipidemia, unspecified; N25.0 Renal osteodystrophy; D64.9 Anemia, unspecified; F41.8 Other specified anxiety disorders; E11.41 Type 2 diabetes mellitus with diabetic mononeuropathy; Z95.1 Presence of aortocoronary bypass graft; Z79.01 Long term (current) use of anticoagulants; Z79.4 Long term (current) use of insulin; Z95.820 Peripheral vascular angioplasty status with implants and grafts; F17.210 Nicotine dependence, cigarettes, uncomplicated; Z89.519 Acquired absence of unspecified leg below knee
CPT/HCPCS: 36415; 71045; 71250; 80053; 82948; 83690; 83735; 83880; 84484; 85025; 85055; 85610; 85730; 86706; 87040; 87340; 93005; 96374; 99285; A9270; G0257; G0378; J1644; J1815; J7030; Q4081

== ENCOUNTER 2023-01-24 09:47 | Observation (INO) | payer MEDICARE, OTHER, SELFPAY ==
[2023-01-24] VITALS (41 sets, daily range): BP systolic 96–156; BP diastolic 29–90; PULSE 62–83; RESP 12–23; TEMP 36.3–36.6; O2SAT 90–100
--- NOTE | ~2023-01-24 | XR_ITS ---
XR chest 1V portable 01/24/2023 11:00 Indication: Vomiting Procedure: AP portable chest Comparison: Comparison to multiple prior studies sequentially, with oldest reviewed study dated 11/24. Findings: Status post median sternotomy for CABG. Heart size normal. Central venous catheter tips in the right atrium. There is ar 13 mm right lower lobe nodule, suspicious for bronchogenic carcinoma. N o focal pneumonia, edema, pleural effusion or pneumothorax. Impression: 1: Right basilar nodule measuring 13 mm, concerning for bronchogenic carcinoma. Reviewed, dictated and finalized at location L. Impression: 1: Right basilar nodule measuring 13 mm, concerning for bronchogenic carcinoma.
[2023-01-24 10:30] LABS: Basophils Absolute Auto 0.1 K/mm3 (0.0-0.1); Basophils Percent Auto 0.7 % (0.2-1.2); Eosinophils Absolute Auto 0.1 K/mm3 (0-0.3); Eosinophils Percent Auto 1.1 % (0-4.4); Hematocrit 37.6 % (37.0-47.0); Immature Granulocyte Absolute 0.04 K/mm3 (0.00-0.031); Immature Granulocyte Percent A 0.5 % (0-0.5); Immature Platelet Fraction Pct 13.3 % (0.9-11.2); Lymphocytes Absolute Auto 0.87 K/mm3 (0.9-3.2); Lymphocytes Percent Auto 11.6 % (18.3-44.2); Mean Corpuscular HGB Conc 31.9 g/dl (32-36); Mean Corpuscular Hemoglobin 31.3 pg (26-34); Mean Corpuscular Volume 97.9 fl (80-100); Mean Platelet Volume 12.9 fl (7.4-10.4); Monocytes Absolute Auto 0.3 K/mm3 (0.1-0.6); Monocytes Percent Auto 4.3 % (2.6-8.5); Neutrophils Absolute Auto 6.2 K/mm3 (1.3-6.7); Neutrophils Percent Auto 81.8 % (45.5-73.1); Platelet Count Result 105 k/mm3 (150-375); Red Blood Count 3.84 M/mm3 (4.2-5.4); Red Cell Distribution Width 13.5 % (11.5-14.5); White Blood Count 7.5 K/mm3 (4.5-10.0)
[2023-01-24 10:41] LABS: Alanine Aminotransferase 20 U/L (6-35); Albumin Level 4.1 g/dL (3.5-5.1); Alkaline Phosphatase 85 U/L (38-126); Anion Gap 9 mmol/L (8-16); Aspartate Amino Transferase 26 U/L (14-36); Bilirubin,Total 0.6 mg/dL (0.2-1.3); Blood Urea Nitrogen 27 mg/dL (7-17); Calcium 8.1 mg/dL (8.4-10.2); Carbon Dioxide 32 mmol/L (22-30); Chloride 94 mmol/L (98-107); Estimated Glomerular Filt Rate 9; Glucose 278 mg/dL (65-110); Lipase 131 U/L (23-300); Potassium 3.8 mmol/L (3.4-5.0); Sodium 135 mmol/L (137-145)
--- NOTE | 2023-01-24 10:47 | ECG_ITS ---
Measurements Intervals [place] Rate: 63 P: 44 ID: [id number] QRS: -82 QRSD: 165 T: 109 QT: 501 QTc: 517 Interpretive Statements SINUS RHYTHM WITH OCCASIONAL SUPRAVENTRICULAR PREMATURE COMPLEXES MARKED LEFT AXIS DEVIATION [QRS AXIS < -30] RIGHT BUNDLE BRANCH BLOCK NONSPECIFIC ST ELEVATION/REPOLARIZATION IN V1 WHICH IS CHRONIC. SIGNIFICANT QT PROLONGATION, CONSIDER DRUG EFFECT OR ELECTROLYTE ABNORMALITY. COMPARED TO ECG 01/11/2023 15:36:06 QT PROLONGATION IS NEW. INFORMATION ARCHITECT informed. Electronically Signed On 01-24-2023 11:34:33 CDT by Abril Vance M.D.
--- NOTE | 2023-01-24 10:49 | ED.NAVMDI ---
HPI - Nausea/Vomiting/Diarrhea General Chief complaint: Nausea/Vomiting/Diarrhea Stated complaint: nausea Time Seen by Provider: 01/24/23 10:23 Source: patient Limitations: no limitations History of Present Illness HPI Narrative: Patient states discharged from hospital yesterday and unable to tolerate PO since arriving home. Lives with sister. Full course of dialysis yesterday. Does not make urine. Denies fever or sick contacts. Admits to regular bowel movements. MD elicited complaint: nausea, vomiting and other (No abdominal pain, chest pain, shortness of breath, or diaphoresis.) Pertinent past history: other (ESRD on hemodialysis with last dialysis yesterday that was a full course. DM. HTN. CHF. Sacral decubitus ulcer. ) Onset (ago): day(s) (1) Description of vomiting: food contents and watery Associated nausea: Yes Associated abdominal pain: No Associated symptoms: other (Denies cough, diarrhea, melena, fever, antibiotic use, numbness, weakness, abdominal pain, back pain, rash, sore throat, rhinorrhea, alcohol use, illicit drug use, recent injuries, fatigue, myalgias, ) Treatment prior to arrival: none Related Data Home Medications Medication Instructions Recorded Confirmed apixaban 5 mg tablet (Eliquis) 5 mg PO BID 11/03/19 01/24/23 carvedilol 25 mg tablet 6.25 mg PO BID 11/03/19 01/24/23 insulin degludec 100 unit/mL 15 unit subcut HS 11/03/19 01/24/23 subcutaneous solution (Tresiba U-100 Insulin) pravastatin 40 mg tablet 40 mg PO HS 11/03/19 01/24/23 sertraline 25 mg tablet 25 mg PO HS 02/11/20 01/24/23 cetirizine 10 mg tablet 10 mg PO DAILY 02/06/22 01/24/23 insulin aspart U-100 100 unit/mL 8 unit subcut TIDWMEAL 02/28/22 01/24/23 (3 mL) subcutaneous pen (Novolog FlexPen U-100 Insulin aspart) pantoprazole 40 mg tablet,delayed 40 mg PO DAILY Heartburn 02/28/22 01/24/23 release gabapentin 400 mg capsule 400 mg PO TID 12/09/22 01/24/23 losartan 100 mg tablet 50 mg PO DAILY 12/09/22 01/24/23 acetaminophen 500 mg capsule 1,000 mg PO Q6H PRN Pain 01/10/23 01/24/23 albuterol sulfate 90 mcg/actuation 2 puff inhalation QID PRN 01/10/23 01/24/23 aerosol inhaler Shortness Of Breath Or Wheezing calcium carbonate 300 mg (750 mg) 2 tablet PO DAILY PRN Indigestion 01/10/23 01/24/23 chewable tablet (Tums E-X) aspirin 81 mg tablet 81 mg PO DAILY 01/24/23 01/24/23 miconazole nitrate 2 % topical 1 applic topical BID PRN redness 01/24/23 01/24/23 ointment to sacral area Allergies Allergy/AdvReac Type Severity Reaction Status Date / Time No Known Allergies Allergy Verified 01/24/23 09:58 [facility] Past Medical History Medical History Anxiety with depression Arterial vascular disease Chronic anemia Coronary artery disease COVID Digital arterial occlusive disease End-stage renal disease on hemodialysis Saturday, , Saturday. 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 Hemoglobin A1c was 6.8% in February 2020. Osteomyelitis Renal osteodystrophy Thrombocytopenia Surgical History Surgical History Amputation of right forefoot Right 4th and 5th ray amputation in 04/2017. Right foot transmetatarsal amputation with partial fasciotomy due to wet gangrene, osteomyelitis, and necrotizing fasciitis in May 2017. 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 History of below-knee amputation of both lower extremities Left [id number] amputation in 2017. Right [id number] amputation in 02/2020. History of bilateral cataract extraction History of carpal tunnel release History of four vessel coronary artery bypass graft (04/2019) History of right above knee amputation (05/12/20) History of spinal fusion History of surgic
[2023-01-24] MEDS: ONDANSETRON INJ 4 MG/2 ML VIAL IV PUSH (10:58)
[2023-01-24] MEDS: FAMOTIDINE 20 MG/2 ML VIAL IV PUSH (10:58)
[2023-01-24 12:26] LABS: Magnesium 2.1 mg/dL (1.6-2.3)
[2023-01-24 12:47] LABS: Troponin I 0.156 ng/mL (0.000-0.034)
[2023-01-24 15:48] LABS: Troponin I 0.163 ng/mL (0.000-0.034)
--- NOTE | 2023-01-24 16:53 | PC.NURSE ---
Dinner tray ordered for pt and request sent to room 207-1
--- NOTE | 2023-01-24 20:40 | PM.IMHP ---
H&P: HPI History of Present Illness Date/Time: 01/24/23 21:00 Chief Complaint: Nausea and vomiting. Narrative: This is a 72-year-old female with peripheral vascular disease, insulin-dependent diabetes, end-stage renal disease on hemodialysis, hypertension, and chronic anemia who presented to the emergency department for evaluation of nausea and vomiting. Patient provides the following history. She has not felt well for the past 24 hours and reports nearly intractable nausea and vomiting. She was supposed to go to dialysis today however came to the ER instead as they would send her to the ER if she presented there with these complaints. She denies epigastric and abdominal pain, bloating, hematemesis, melena, and hematochezia. She also denies sick contacts. She has not had chest pain, pleuritic pain, palpitations, or significant shortness of breath. Labs done on arrival to the ED seem to be fairly consistent compared to previous labs. Her troponin was elevated however and while this is not necessarily unusual for her, her troponins were well within normal limits last week and thus I was asked to admit her to trend the troponins. As above she is not having any chest pain whatsoever, reports feeling better, and she was able eat her dinner this evening without issue. Review of Systems Review of Systems: Twelve systems were reviewed and are negative except for as per HPI. [facility] Past Medical History Medical History Anxiety with depression Arterial vascular disease Chronic anemia Coronary artery disease COVID Digital arterial occlusive disease End-stage renal disease on hemodialysis Saturday, , Saturday. 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 Hemoglobin A1c was 6.8% in February 2020. Osteomyelitis Renal osteodystrophy Thrombocytopenia Surgical History Surgical History Amputation of right forefoot Right 4th and 5th ray amputation in 04/2017. Right foot transmetatarsal amputation with partial fasciotomy due to wet gangrene, osteomyelitis, and necrotizing fasciitis in May 2017. 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 History of below-knee amputation of both lower extremities Left [id number] amputation in 2017. Right [id number] amputation in 02/2020. 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 History of vascular surgery Right lower extremity stents in March 2017. Left lower extremity stent in 2014. Family History Family History Mother Diabetes mellitus Father Lung cancer Acute myocardial infarction Sibling Diabetes mellitus Social History Social History Social History: The patient currently lives with her sister. She is . She is retired. She has a son and a daughter. Surrogate medical decision maker: Kierra Blanton (sister) or Cyndi Blanton (daughter). Code status: DNR Smoking packs per day: 0.15 Smoking cigarettes per day: 3.0 Years smoked: 30 Smoking pack-years: 4.50 Smoking status: Current some day smoker Tobacco type: cigarettes Second hand tobacco smoke exposure: Yes Additional smoking assessment comments: 4 daily currently Alcohol intake: never Drinks per week: 1 Alcohol use details: Previous social drinker. Substance use: never Substance use type: does not use Lack of Transportat
[2023-01-25] VITALS (10 sets, daily range): BP systolic 99–129; BP diastolic 53–66; PULSE 61–82; RESP 12–16; TEMP 35.7–36.8; O2SAT 82–98
[2023-01-25 00:24] LABS: Glucose Point of Care 127 mg/dl (65-105)
[2023-01-25] MEDS: SERTRALINE HCL 25 MG TABLET PO (00:28)
[2023-01-25] MEDS: carvediloL 6.25 MG TABLET PO ×2 (00:28→09:29)
[2023-01-25] MEDS: PRAVASTATIN SODIUM 20 MG TABLET 40 MG PO (00:28)
[2023-01-25] MEDS: APIXABAN 5 MG TABLET PO ×2 (00:28→09:30)
[2023-01-25] MEDS: INSULIN GLARGINE (*BKC) 100 UNITS/ML 15 UNITS SUB-Q (00:29)
[2023-01-25 04:58] LABS: Basophils Absolute Auto 0.1 K/mm3 (0.0-0.1); Basophils Percent Auto 0.8 % (0.2-1.2); Eosinophils Absolute Auto 0.2 K/mm3 (0-0.3); Hematocrit 33.8 % (37.0-47.0); Hemoglobin 10.6 g/dL (12.0-15.0); Immature Granulocyte Absolute 0.02 K/mm3 (0.00-0.031); Immature Granulocyte Percent A 0.3 % (0-0.5); Lymphocytes Absolute Auto 1.84 K/mm3 (0.9-3.2); Lymphocytes Percent Auto 28.9 % (18.3-44.2); Mean Corpuscular HGB Conc 31.4 g/dl (32-36); Mean Corpuscular Hemoglobin 30.9 pg (26-34); Mean Corpuscular Volume 98.5 fl (80-100); Mean Platelet Volume 12.9 fl (7.4-10.4); Monocytes Absolute Auto 0.6 K/mm3 (0.1-0.6); Monocytes Percent Auto 8.6 % (2.6-8.5); Neutrophils Absolute Auto 3.7 K/mm3 (1.3-6.7); Neutrophils Percent Auto 58.4 % (45.5-73.1); Platelet Count Result 102 k/mm3 (150-375); Red Blood Count 3.43 M/mm3 (4.2-5.4); Red Cell Distribution Width 13.3 % (11.5-14.5); White Blood Count 6.4 K/mm3 (4.5-10.0)
[2023-01-25 05:09] LABS: Magnesium 2.2 mg/dL (1.6-2.3); Phosphorus 5.4 mg/dL (2.5-4.5)
[2023-01-25 07:59] LABS: Glucose Point of Care 127 mg/dl (65-105)
--- NOTE | 2023-01-25 08:31 | PM.IMPN ---
Progress Note: A&P Assessment and Plan (1) Nausea & vomiting: Qualifiers: Vomiting type: unspecified Qualified Code(s): R11.2 - Nausea with vomiting, unspecified Code(s): R11.2 - Nausea with vomiting, unspecified Status: Acute Assessment and Plan: Unsure of etiology, reassess after dialysis (2) Elevated troponin: Code(s): R77.8 - Other specified abnormalities of plasma proteins Status: Acute Assessment and Plan: Likely secondary to dialysis, do not suspect acute cardiac etiology, troponin curve is quite flat (3) End-stage renal disease on hemodialysis: Code(s): N18.6 - End stage renal disease; Z99.2 - Dependence on renal dialysis Status: Acute Assessment and Plan: Appreciate nephrology consultation (4) Hypertension: Qualifiers: Hypertension type: renovascular hypertension Qualified Code(s): I15.0 - Renovascular hypertension Code(s): I10 - Essential (primary) hypertension Status: Chronic Assessment and Plan: Blood pressures reviewed 01/25 (5) Insulin dependent type 2 diabetes mellitus: Code(s): E11.9 - Type 2 diabetes mellitus without complications; Z79.4 - polisher balance screwhead (current) use of insulin Status: Chronic Assessment and Plan: Blood glucose reviewed 01/25 Accu-Cheks, sliding scale insulin A1c is 7.1 11/23 (6) Chronic anemia: Code(s): D64.9 - Anemia, unspecified Status: Acute Assessment and Plan: Stable, monitor (7) Chronic obstructive pulmonary disease: Code(s): J44.9 - Chronic obstructive pulmonary disease, unspecified Status: Acute Assessment and Plan: Does not appear to be in acute exacerbation Plan DVT prophylaxis with eliquis GI prophylaxis not indicated Code status full code Subjective Date/time seen: 01/25/23 08:31 Interval history: No overnight events noted. No chest pain or shortness of breath. No nausea, vomiting or diarrhea. No fevers or chills. Review of Systems Review of Systems: 12 point review of systems was assessed and was negative except as noted in the HPI Exam Narrative: General: No acute distress, alert and oriented per baseline HEENT: Atraumatic, normocephalic, mucous membranes moist CV: Regular rate and rhythm, S1, S2 Lungs: Clear to auscultation bilaterally, no rales or crackles noted, no wheezes, good air entry Abdomen: Soft, nontender, nondistended Extremities: Normal to inspection Skin: No rashes noted, no lesions or wounds seen Psych: Euthymic, normal affect Objective Data Vital Signs Vital Signs: Vital Signs - 24 hr 01/24/23 09:50 01/24/23 09:54 01/24/23 09:56 Temperature 97.8 F Pulse Rate 67 67 Respiratory Rate 20 20 Blood Pressure 156/42 H 156/42 H Pulse Oximetry 95 95 93 Oxygen Delivery Room Air 01/24/23 10:00 01/24/23 10:02 01/24/23 10:03 Temperature Pulse Rate 66 66 67 Respiratory Rate 19 19 19 Blood Pressure 145/38 H Pulse Oximetry 91 90 91 Oxygen Delivery 01/24/23 10:31 01/24/23 10:45 01/24/23 11:00 Temperature Pulse Rate 64 70 65 Respiratory Rate 15 23 H 15 Blood Pressure Pulse Oximetry 92 Oxygen Delivery 01/24/23 11:15 01/24/23 11:30 01/24/23 11:45 Temperature Pulse Rate 64 64 64 Respiratory Rate 14 13 13 Blood Pressure Pulse Oximetry Oxygen Delivery 01/24/23 12:00 01/24/23 12:15 01/24/23 12:34 Temperature Pulse Rate 63 62 64 Respiratory Rate 14 12 12 Blood Pressure Pulse Oximetry Oxygen Delivery 01/24/23 12:45 01/24/23 13:00 01/24/23 13:16 Temperature Pulse Rate 68 64 76 Respiratory Rate 14 13 15 Blood Pressure Pulse Oximetry Oxygen Delivery 01/24/23 13:18 01/24/23 13:19 01/24/23 13:30 Temperature Pulse Rate 66 67 67 Respiratory Rate 14 13 15 Blood Pressure 113/50 L Pulse Oximetry Oxygen Delivery 01/24/23 13:46 0
[2023-01-25] MEDS: INSULIN ASPART (*BKC) 100 UNITS/ML 8 UNITS SUB-Q ×2 (09:28→12:00)
[2023-01-25] MEDS: SEVELAMER CARBONATE 800 MG TABLET PO ×2 (09:29→12:00)
[2023-01-25] MEDS: ASPIRIN 81 MG ENTERIC TABLET PO (09:29)
[2023-01-25] MEDS: PANTOPRAZOLE 40 MG TABLET PO (09:30)
[2023-01-25] MEDS: LORATADINE 10 MG TABLET PO (09:30)
[2023-01-25] MEDS: GABAPENTIN 400 MG CAPSULE PO ×2 (09:30→12:00)
[2023-01-25] MEDS: LOSARTAN POTASSIUM 50 MG TABLET PO (09:30)
[2023-01-25 11:38] LABS: Glucose Point of Care 113 mg/dl (65-105)
--- NOTE | 2023-01-25 14:43 | PM.DS ---
DS: Admitting Diagnosis Discharge Date 01/25/23 Admitting Diagnosis nausea with emesis DS: Discharge Diagnosis Discharge Diagnosis (1) Nausea & vomiting: Qualifiers: Vomiting type: unspecified Qualified Code(s): R11.2 - Nausea with vomiting, unspecified Code(s): R11.2 - Nausea with vomiting, unspecified Status: Acute (2) Elevated troponin: Code(s): R77.8 - Other specified abnormalities of plasma proteins Status: Acute (3) End-stage renal disease on hemodialysis: Code(s): N18.6 - End stage renal disease; Z99.2 - Dependence on renal dialysis Status: Acute (4) Hypertension: Qualifiers: Hypertension type: renovascular hypertension Qualified Code(s): I15.0 - Renovascular hypertension Code(s): I10 - Essential (primary) hypertension Status: Chronic (5) Insulin dependent type 2 diabetes mellitus: Code(s): E11.9 - Type 2 diabetes mellitus without complications; Z79.4 - snf (current) use of insulin Status: Chronic (6) Chronic anemia: Code(s): D64.9 - Anemia, unspecified Status: Acute (7) Chronic obstructive pulmonary disease: Code(s): J44.9 - Chronic obstructive pulmonary disease, unspecified Status: Acute Plan Assessment and Plan (1) Nausea & vomiting: ?Qualifiers: ?Vomiting type:?unspecified? Qualified Code(s):?R11.2 - Nausea with vomiting, unspecified ?Code(s): R11.2 - Nausea with vomiting, unspecified ?Status:?Acute ?Assessment and Plan: Unsure of etiology, reassess after dialysis (2) Elevated troponin: ?Code(s): R77.8 - Other specified abnormalities of plasma proteins ?Status:?Acute ?Assessment and Plan: Likely secondary to dialysis, do not suspect acute cardiac etiology, troponin curve is quite flat (3) End-stage renal disease on hemodialysis: ?Code(s): N18.6 - End stage renal disease; Z99.2 - Dependence on renal dialysis ?Status:?Acute ?Assessment and Plan: Appreciate nephrology consultation (4) Hypertension: ?Qualifiers: ?Hypertension type:?renovascular hypertension? Qualified Code(s):?I15.0 - Renovascular hypertension ?Code(s): I10 - Essential (primary) hypertension ?Status:?Chronic ?Assessment and Plan: Blood pressures reviewed 01/25 (5) Insulin dependent type 2 diabetes mellitus: ?Code(s): E11.9 - Type 2 diabetes mellitus without complications; Z79.4 - long term care social worker (current) use of insulin ?Status:?Chronic ?Assessment and Plan: Blood glucose reviewed 01/25 Accu-Cheks, sliding scale insulin A1c is 7.1 11/23 (6) Chronic anemia: ?Code(s): D64.9 - Anemia, unspecified ?Status:?Acute ?Assessment and Plan: Stable, monitor (7) Chronic obstructive pulmonary disease: ?Code(s): J44.9 - Chronic obstructive pulmonary disease, unspecified ?Status:?Acute ?Assessment and Plan: Does not appear to be in acute exacerbation Plan DVT prophylaxis with eliquis GI prophylaxis not indicated Code status full code DS: Summary Hospital Course Hospital Course: 72-year-old female with peripheral vascular disease, insulin-dependent diabetes, end-stage renal disease on hemodialysis, hypertension, and chronic anemia who presented to the emergency department for evaluation of nausea and vomiting. All symptoms resolved with supportive care and patient requested to be discharged home. Please see above and med rec for details. Time Spent with Patient Time attestation: Total time spent providing and/or coordinating discharge services: Exam Narrative: General: No acute distress, alert and oriented per baseline HEENT: Atraumatic, normocephalic, mucous membranes moist CV: Regular rate and rhythm, S1, S2 Lungs: Clear to auscultation bilaterally, no rales or crackles noted, no wheezes, good air entry Abdomen: Soft, nontender, nondistended Extremities: Norm
--- NOTE | 2023-01-25 16:20 | PC.NURSE ---
1601 Report given to [facility] staff, vitals stable, pt alert and oriented, belongings sent.
== END 2023-01-25 16:01 | disposition home or self-care (01) ==
LOC: ANHED 16:07 → ANHIMU 16:41
PROVIDERS: Physician Assistant; Admitting Provider Student in an Organized Health Care Education/Training Program; Emergency Provider Student in an Organized Health Care Education/Training Program; PCP Internal Medicine; Visit Provider Student in an Organized Health Care Education/Training Program
DX: R11.2 Nausea with vomiting, unspecified (principal); R77.8 Other specified abnormalities of plasma proteins; I13.2 Hypertensive heart and chronic kidney disease with heart failure and with stage 5 chronic kidney disease, or end stage renal disease; E11.22 Type 2 diabetes mellitus with diabetic chronic kidney disease; N18.6 End stage renal disease; I50.9 Heart failure, unspecified; D63.1 Anemia in chronic kidney disease; Z99.2 Dependence on renal dialysis; J44.9 Chronic obstructive pulmonary disease, unspecified; L89.159 Pressure ulcer of sacral region, unspecified stage; R06.02 Shortness of breath; K30 Functional dyspepsia; F41.8 Other specified anxiety disorders; E78.5 Hyperlipidemia, unspecified; E11.51 Type 2 diabetes mellitus with diabetic peripheral angiopathy without gangrene; E11.319 Type 2 diabetes mellitus with unspecified diabetic retinopathy without macular edema; Z86.16 Personal history of COVID-19; M86.9 Osteomyelitis, unspecified; Z98.62 Peripheral vascular angioplasty status; Z89.431 Acquired absence of right foot; Z89.022 Acquired absence of left finger(s); R91.8 Other nonspecific abnormal finding of lung field; R94.31 Abnormal electrocardiogram [ECG] [EKG]; I25.10 Atherosclerotic heart disease of native coronary artery without angina pectoris; Z95.1 Presence of aortocoronary bypass graft; F17.210 Nicotine dependence, cigarettes, uncomplicated; Z66 Do not resuscitate; Z79.01 Long term (current) use of anticoagulants; Z79.4 Long term (current) use of insulin; Z79.1 Long term (current) use of non-steroidal anti-inflammatories (NSAID); Z79.51 Long term (current) use of inhaled steroids; Z79.82 Long term (current) use of aspirin; Z79.899 Other long term (current) drug therapy
CPT/HCPCS: 36415; 71045; 80053; 82948; 83690; 83735; 84100; 84443; 84484; 85025; 85055; 93005; 96374; 96375; 99285; A9270; G0378; J1815; J2405

== ENCOUNTER 2023-02-20 02:01 | Inpatient (IN) | payer MEDICARE, OTHER, SELFPAY ==
[2023-02-20] VITALS (42 sets, daily range): BP systolic 126–201; BP diastolic 32–87; PULSE 63–75; RESP 12–19; TEMP 36–37.1; O2SAT 89–100
--- NOTE | ~2023-02-20 | XR_ITS ---
Portable chest x-ray Comparison: 01/24/2023 Clinical History: Chest pain Findings: Right-sided central venous line is unchanged. There is mild bibasilar haziness, suggestive of mild pulmonary edema. No pleural effusion or pneumothorax. Cardiomediastinal silhouette is stabl e. Bones and soft tissues are unremarkable. Impression: Probable mild bibasilar pulmonary edema. Stable support line. Reviewed, dictated and finalized at location M. Impression: Probable mild bibasilar pulmonary edema. Stable support line.
--- NOTE | 2023-02-20 02:08 | ECG_ITS ---
Measurements Intervals [place] Rate: 71 P: 40 TX: 199 QRS: -82 QRSD: 155 T: 67 QT: 452 QTc: 492 Interpretive Statements SINUS RHYTHM ATRIAL PREMATURE COMPLEXES RIGHT BUNDLE BRANCH BLOCK LEFT ANTERIOR FASCICULAR BLOCK CANNOT RULE OUT SEPTAL INFARCT, AGE INDETERMINATE BASELINE ARTIFACT- V5 ABNORMAL ECG COMPARED TO ECG 01/24/2023 11:13:52 NO SIGNIFICANT CHANGES Electronically Signed On 02-20-2023 7:52:38 CDT by Fito Mcintosh D.O.
--- NOTE | 2023-02-20 02:15 | ED.CHESTPAIN ---
HPI - Chest Pain General Chief Complaint: Chest Pain Stated Complaint: CP, DIFFICULTY IN BREATHING Time Seen by Provider: 02/20/23 02:03 History of Present Illness HPI narrative: Patient brought to the emergency department by EMS for chest discomfort. Patient is end-stage renal disease and gets dialysis Saturday and Saturdays. She missed dialysis yesterday because she was having diarrhea. Patient denies abdominal discomfort. She woke up in the middle of the night to go to the bathroom and developed diffuse chest discomfort. Also mild shortness of breath. Related Data Home Medications Medication Instructions Recorded Confirmed apixaban 5 mg tablet (Eliquis) 5 mg PO BID 11/03/19 01/24/23 carvedilol 25 mg tablet 6.25 mg PO BID 11/03/19 01/24/23 insulin degludec 100 unit/mL 15 unit subcut HS 11/03/19 01/24/23 subcutaneous solution (Tresiba U-100 Insulin) pravastatin 40 mg tablet 40 mg PO HS 11/03/19 01/24/23 sertraline 25 mg tablet 25 mg PO HS 02/11/20 01/24/23 cetirizine 10 mg tablet 10 mg PO DAILY 02/06/22 01/24/23 insulin aspart U-100 100 unit/mL 8 unit subcut TIDWMEAL 02/28/22 01/24/23 (3 mL) subcutaneous pen (Novolog FlexPen U-100 Insulin aspart) pantoprazole 40 mg tablet,delayed 40 mg PO DAILY Heartburn 02/28/22 01/24/23 release gabapentin 400 mg capsule 400 mg PO TID 12/09/22 01/24/23 losartan 100 mg tablet 50 mg PO DAILY 12/09/22 01/24/23 acetaminophen 500 mg capsule 1,000 mg PO Q6H PRN Pain 01/10/23 01/24/23 albuterol sulfate 90 mcg/actuation 2 puff inhalation QID PRN 01/10/23 01/24/23 aerosol inhaler Shortness Of Breath Or Wheezing calcium carbonate 300 mg (750 mg) 2 tablet PO DAILY PRN Indigestion 01/10/23 01/24/23 chewable tablet (Tums E-X) aspirin 81 mg tablet 81 mg PO DAILY 01/24/23 01/24/23 miconazole nitrate 2 % topical 1 applic topical BID PRN redness 01/24/23 01/24/23 ointment to sacral area Allergies Allergy/AdvReac Type Severity Reaction Status Date / Time No Known Allergies Allergy Verified 01/24/23 09:58 Review of Systems Review of Systems: Negative except what is documented in the [facility] Past Medical History Medical History Anxiety with depression Arterial vascular disease Chronic anemia Coronary artery disease COVID Digital arterial occlusive disease End-stage renal disease on hemodialysis Saturday, , Saturday. 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 Hemoglobin A1c was 6.8% in February 2020. Osteomyelitis Renal osteodystrophy Thrombocytopenia Surgical History Surgical History Amputation of right forefoot Right 4th and 5th ray amputation in 04/2017. Right foot transmetatarsal amputation with partial fasciotomy due to wet gangrene, osteomyelitis, and necrotizing fasciitis in May 2017. 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 History of below-knee amputation of both lower extremities Left [id number] amputation in 2017. Right vkgro-mgu-[id number] amputation in 02/2020. 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 History of vascular surgery Right lower extremity stents in March 2017. Left lower extremity stent in 2014. Family History Family History Mother Diabetes mellitus Father Lung cancer Acute myocardial infarction Sibling Diabetes mellitus Social History Social History (Reviewed 01/25/23 @ 14:41 by Susan
[2023-02-20 02:23] LABS: Basophils Percent Auto 0.7 % (0.2-1.2); Eosinophils Absolute Auto 0.2 K/mm3 (0-0.3); Eosinophils Percent Auto 2.9 % (0-4.4); Hematocrit 35.5 % (37.0-47.0); Hemoglobin 10.8 g/dL (12.0-15.0); Immature Granulocyte Absolute 0.03 K/mm3 (0.00-0.031); Immature Granulocyte Percent A 0.5 % (0-0.5); Immature Platelet Fraction Pct 8.2 % (0.9-11.2); Lymphocytes Absolute Auto 1.47 K/mm3 (0.9-3.2); Lymphocytes Percent Auto 25.4 % (18.3-44.2); Mean Corpuscular HGB Conc 30.4 g/dl (32-36); Mean Corpuscular Hemoglobin 31.9 pg (26-34); Mean Corpuscular Volume 104.7 fl (80-100); Mean Platelet Volume 12.9 fl (7.4-10.4); Monocytes Absolute Auto 0.3 K/mm3 (0.1-0.6); Monocytes Percent Auto 5.5 % (2.6-8.5); Neutrophils Absolute Auto 3.8 K/mm3 (1.3-6.7); Platelet Count Result 104 k/mm3 (150-375); Red Blood Count 3.39 M/mm3 (4.2-5.4); Red Cell Distribution Width 13.6 % (11.5-14.5); White Blood Count 5.8 K/mm3 (4.5-10.0)
--- NOTE | 2023-02-20 02:24 | PC.NURSE ---
Pt reports pain now 11/10. Nitro given per orders.
[2023-02-20] MEDS: NITROGLYCERIN SL 0.4 MG TABLET SUBLINGUAL ×2 (02:25→02:32)
[2023-02-20 02:31] LABS: Alanine Aminotransferase 14 U/L (6-35); Albumin Level 3.4 g/dL (3.5-5.1); Alkaline Phosphatase 129 U/L (38-126); Anion Gap 7 mmol/L (8-16); Aspartate Amino Transferase 19 U/L (14-36); Bilirubin,Total 0.4 mg/dL (0.2-1.3); Blood Urea Nitrogen 50 mg/dL (7-17); Calcium 7.7 mg/dL (8.4-10.2); Carbon Dioxide 27 mmol/L (22-30); Chloride 105 mmol/L (98-107); Estimated Glomerular Filt Rate 6; Glucose 260 mg/dL (65-110); Sodium 139 mmol/L (137-145)
--- NOTE | 2023-02-20 02:32 | PC.NURSE ---
Still reports pain 6/10. Second sublingual nitro given.
--- NOTE | 2023-02-20 02:34 | PC.NURSE ---
Pt O2 sats decreased to 90% with good pleath. Placed pt back on 2L NC with increase in O2 sats to 98%
--- NOTE | 2023-02-20 02:37 | PC.NURSE ---
Reports cp remains 11/10
[2023-02-20 02:42] LABS: Troponin I 0.014 ng/mL (0.000-0.034)
[2023-02-20] MEDS: fentaNYL CITRATE INJ (*CRX) 100 MCG/2 ML VIAL 50 MCG IV PUSH (02:44)
--- NOTE | 2023-02-20 02:51 | PC.NURSE ---
Reports pain now 5/10 after fentanyl
--- NOTE | 2023-02-20 04:57 | ADMGEN ---
This patient, Tawana Prado, was admitted to 2 Medical Room 249-01. Patient/family oriented to hospital policies and general routines including ID bracelet, bed and alarms, visiting hours, pain management, procedures, bathroom and other care routines, personal items, smoking policy, room service/diet, and visiting hours. Information on how to activate the Rapid Response Team has been discussed. Patient/Family are encouraged to report perceived risks to care and to ask questions if they do not understand what they are told or what they should do.
--- NOTE | 2023-02-20 05:00 | PM.IMHP ---
H&P: HPI History of Present Illness Date/Time: 02/20/23 05:00 Chief Complaint: patient missed her hemodialysis yesterday and was brought to the ER for evaluation by EMS for chest pain Narrative: Our patient is a very unfortunate 72 years old female with bilateral leg amputations and CKD on hemodialysis, who missed her hemodialysis on Saturday because of diarrhea. She does hemodialysis Tuesdays and Saturdays. She got up in the middle of the night to go to the bathroom and developed chest pain, intensity 5/10 located in the upper chest, no palpitations or sweating, no radiation down the arms. She has history of CAD and got concerned, called EMS who brought her to the ER for evaluation. Patient was given IV fentanyl and sublingual nitroglycerin which helped with her symptoms. First set of troponin was obtained which was negative. Cardiology was consulted and she is being placed under observation for nephrology evaluation, hemodialysis, monitoring of cardiac enzymes, Cardiology evaluation and further work up. Review of Systems Review of Systems: she denies any nausea or vomiting, abdominal pain fever rigors chills. All systems reviewed & are unremarkable except as noted in HPI and below PMFSH Past Medical History Medical History Anxiety with depression Arterial vascular disease Chronic anemia Coronary artery disease COVID Digital arterial occlusive disease End-stage renal disease on hemodialysis Saturday, , Saturday. 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 Hemoglobin A1c was 6.8% in February 2020. Osteomyelitis Renal osteodystrophy Thrombocytopenia Surgical History Surgical History Amputation of right forefoot Right 4th and 5th ray amputation in 04/2017. Right foot transmetatarsal amputation with partial fasciotomy due to wet gangrene, osteomyelitis, and necrotizing fasciitis in May 2017. 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 History of below-knee amputation of both lower extremities Left hwkdo-[id number]-[id number] amputation in 2017. Right wlixl-hse-jitd amputation in 02/2020. 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 History of vascular surgery Right lower extremity stents in March 2017. Left lower extremity stent in 2014. Family History Family History Mother Diabetes mellitus Father Lung cancer Acute myocardial infarction Sibling Diabetes mellitus Social History Social History Social History: The patient currently lives with her sister. She is . She is retired. She has a son and a daughter. Surrogate medical decision maker: Kierra Blanton (sister) or Cyndi Blanton (daughter). Code status: DNR Smoking packs per day: 0.15 Smoking cigarettes per day: 3.0 Years smoked: 60 Smoking pack-years: 9.00 Smoking status: Current every day smoker Tobacco type: cigarettes Second hand tobacco smoke exposure: Yes Additional smoking assessment comments: 4 daily currently Alcohol intake: never Drinks per week: 1 Alcohol use details: Previous social drinker. Substance use: never Substance use type: does not use Lack of Transportation: No Lack of Food: Never True Current Housing: I Have Housing Concerned About Future Housing: No Difficulty Paying Gas/Electric Bills: No Difficulty Paying for Meds: No Currently
[2023-02-20 06:34] LABS: Troponin I 0.023 ng/mL (0.000-0.034)
[2023-02-20 08:34] LABS: Glucose Point of Care 247 mg/dl (65-105)
[2023-02-20] MEDS: ASPIRIN 81 MG ENTERIC TABLET PO (08:36)
[2023-02-20] MEDS: carvediloL 6.25 MG TABLET PO ×2 (08:36→20:23)
[2023-02-20] MEDS: APIXABAN 5 MG TABLET PO ×2 (08:36→20:22)
[2023-02-20] MEDS: LOSARTAN POTASSIUM 50 MG TABLET PO (08:36)
[2023-02-20] MEDS: GABAPENTIN 400 MG CAPSULE PO ×3 (08:36→16:38)
[2023-02-20] MEDS: SEVELAMER CARBONATE 800 MG TABLET PO ×3 (08:37→16:38)
[2023-02-20] MEDS: PANTOPRAZOLE 40 MG TABLET PO (08:37)
[2023-02-20] MEDS: NIFEdipine 30 MG TAB.ER.24 PO ×2 (08:39→16:38)
[2023-02-20] MEDS: INSULIN ASPART (*BKC) 100 UNITS/ML 8 UNITS SUB-Q (08:39)
[2023-02-20 09:02] LABS: Troponin I 0.028 ng/mL (0.000-0.034)
--- NOTE | 2023-02-20 09:24 | PM.CNCAR ---
Assessment and Plan Assessment and plan (1) Coronary artery disease with hx of myocardial infarct w/o hx of CABG: Code(s): I25.10 - Atherosclerotic heart disease of [place] coronary artery without angina pectoris; I25.2 - Old myocardial infarction Status: Acute Assessment and Plan: Continue aspirin, statin, beta-keith, losartan, nifedipine. (2) Chest pain: Qualifiers: Chest pain type: unspecified Qualified Code(s): R07.9 - Chest pain, unspecified Code(s): R07.9 - Chest pain, unspecified Status: Acute Assessment and Plan: Chest pain may be anginal but she did have a negative stress test around a year ago. Will continue to up titrate medications. She is pain-free at this point certainly her symptoms may have been related to missed dialysis today. Will increase her carvedilol to 12.5 mg p.o. b.i.d.. If she has recurrent chest pain, would order a Lexiscan perfusion study but at this point, since her troponins are negative and she is pain free, will not pursue further inpatient workup at this point. (3) Hypertension: Qualifiers: Hypertension type: renovascular hypertension Qualified Code(s): I15.0 - Renovascular hypertension Code(s): I10 - Essential (primary) hypertension Status: Chronic Assessment and Plan: Above goal (4) Missed dialysis: Status: Acute Assessment and Plan: Per nephrology (5) End-stage renal disease on hemodialysis: Code(s): N18.6 - End stage renal disease; Z99.2 - Dependence on renal dialysis Status: Acute History of Present Illness History of Present Illness Consult date/time: 02/20/23 09:24 Requesting physician: Ken Ross MD Consult reason: chest pain Reason For Visit: Chest Pain Narrative: Date of service 02/20/2023: Reason consultation: Chest pain, CAD Requesting provider: History: Patient is a 72-year-old female who follows with Dr. Blackwood for her CAD. She has a history of CABG, P 80, lower extremity amputations bilaterally, end-stage renal disease who has been in and out of the hospital several times recently. She had an echocardiogram in November which showed preserved ejection fraction. She had a stress test in February of 2022 which was normal. She returns to the hospital because of recurrent chest pain. She Mr. Dialysis yesterday because of some diarrhea. She woke up in the night she was having some chest pain and she came to the hospital for further evaluation. She reportedly was given fentanyl as well as nitroglycerin. This combination did improve her symptoms. Troponins have remained negative although slightly up trending. She currently has no chest pain, shortness breath, syncope, presyncope, paroxysmal nocturnal dyspnea, orthopnea edema palpitations. There is no acute ST or T-wave changes at this point. Review of Systems Review of Systems: All systems reviewed & are unremarkable except as noted in HPI and below Constitutional: Constitutional: Denies body ache(s) Eyes: Eyes: Denies blurry vision ENT: Reports Normal hearing present Cardiovascular: Cardiovascular: Reports chest pain Respiratory: Respiratory: Denies hemoptysis Gastrointestinal: Gastrointestinal: Reports diarrhea Genitourinary: Genitourinary: Denies hematuria Musculoskeletal: Musculoskeletal: Denies back pain Integumentary/Breasts: Skin/Breast: Denies dry skin Neurologic: Reports Abnormal speech present Psychiatric: Psychiatric: Denies anxiety Endocrine: Endocrine: Denies excessive sweating Hematologic/Lymphatic: Hematologic/Lymphatic: Denies easy bleeding Allergic/Immunologic: Allergic/Immunologic: Denies GI upset with certain foods PMFSH Past Medical History Medical History Anxiety with depression Arterial vascular disease Chronic anemia Coronary artery disease COVID Digital arterial occlusive disease End-stage renal
[2023-02-20 11:53] LABS: Glucose Point of Care 145 mg/dl (65-105)
[2023-02-20 11:58] LABS: Hepatitis B Surface Antigen Negative (Negative)
--- NOTE | 2023-02-20 13:15 | PM.CNNEP ---
Assessment and Plan Assessment and plan (1) End stage renal disease: Assessment and Plan: HD today since missed treatment yesterday plan HD tomorrow and continue T/T/S dialysis schedule while hospitalized follow electrolytes, volume status, and clearance (2) Chest pain: Qualifiers: Chest pain type: unspecified Qualified Code(s): R07.9 - Chest pain, unspecified Code(s): R07.9 - Chest pain, unspecified Status: Acute Assessment and Plan: no further episodes since admission related to missed dialysis treatment Cardiology recommendations noted . (3) Hypertension: Assessment and Plan: elevated at this time resumed on home medications will add PRN medications as well follow trend of hemodynamics (4) Anemia: Assessment and Plan: due to ESRD close to goal Epogen with HD follow trend of H/H (5) Insulin dependent type 2 diabetes mellitus: Assessment and Plan: follow accuchecks glycemic control per hospitalists I will continue follow the patient with you while she remains hospitalized make further recommendations during her hospital course. Thank you for allowing me to participate in the care of this patient. History of Present Illness Reason for Consult Consult date: 02/20/23 Reason for consult: end stage renal disease Chief Complaint Chief complaint: Chest Pain History of Present Illness Narrative: The patient is a 72-year-old female with a past medical history as outlined below who presented to [facility] Emergency Room with complaints of chest pain. Yesterday evening, she got up in the middle the night to go to the bathroom and developed chest pain. The chest pain was rated as a 5/10 in severity and localized to her upper chest. She had no associated symptoms with regard to palpitations, diaphoresis, or radiation. She has a known history of coronary artery disease and due to the severity of the pain, called EMS who brought her to [facility] Emergency Room for further assessment. Workup and evaluation emergency room demonstrated the patient be hemodynamically stable if not a bit hypertensive. She was given sublingual nitroglycerin as well as IV fentanyl with seem to alleviate her symptoms. Her initial troponin was negative and EKG did not show any other significant ischemic changes as far as I am aware. However, given the patient's complex medical history including known coronary artery disease, she was admitted the hospital for further evaluation therapy. Since her admission, she has been seen by Cardiology with subsequent adjustment in her medications at this time. Recommendations are possible stress test if her chest pain continues to persist or recur her. Renal consultation was requested due to her end-stage renal disease. The patient is quite familiar to me as I have taking care of her on multiple occasions whenever she is admitted here to [facility]. The patient normally dialyzes on a Saturday, , Saturday dialysis schedule at [facility] under the care of Dr. Clarke. She usually does reasonably well with her dialysis treatments although her compliance with dialysis in general is not very good as noted by her recurrent admissions here at [facility] for volume overload and hyperkalemia. Her last dialysis treatment Saturday (02/16/23) as she missed her treatment yesterday due to issues related to diarrhea. Currently, at the time my visit, she is tolerating dialysis without any issues or problems (she was seen on HD at 1:05PM). Review of Systems Review of Systems: As per HPI. [facility] Past Medical History Medical History Anxiety with depression Arterial vascular disease Chronic anemia Coronary artery disease COVID Digital arterial occlusive disease End-stage renal disease on hemodialysis Saturday, , Saturday.
[2023-02-20 16:47] LABS: Glucose Point of Care 90 mg/dl (65-105)
[2023-02-20] MEDS: ATORVASTATIN 40 MG TABLET PO (20:22)
[2023-02-20] MEDS: PRAVASTATIN SODIUM 20 MG TABLET 40 MG PO (20:22)
[2023-02-20 21:11] LABS: Glucose Point of Care 137 mg/dl (65-105)
[2023-02-20 23:04] LABS: Hepatitis B Surface Anti Res Indeterminate
[2023-02-21] VITALS (27 sets, daily range): BP systolic 120–198; BP diastolic 38–89; PULSE 61–92; RESP 16–18; TEMP 36–37.6; O2SAT 68–97
[2023-02-21 06:42] LABS: Basophils Percent Auto 0.4 % (0.2-1.2); Eosinophils Absolute Auto 0.2 K/mm3 (0-0.3); Eosinophils Percent Auto 3.8 % (0-4.4); Hematocrit 34.5 % (37.0-47.0); Hemoglobin 10.6 g/dL (12.0-15.0); Immature Granulocyte Absolute 0.02 K/mm3 (0.00-0.031); Immature Granulocyte Percent A 0.4 % (0-0.5); Lymphocytes Absolute Auto 1.46 K/mm3 (0.9-3.2); Lymphocytes Percent Auto 32.5 % (18.3-44.2); Mean Corpuscular HGB Conc 30.7 g/dl (32-36); Mean Corpuscular Hemoglobin 31.5 pg (26-34); Mean Corpuscular Volume 102.4 fl (80-100); Mean Platelet Volume 12.7 fl (7.4-10.4); Monocytes Absolute Auto 0.4 K/mm3 (0.1-0.6); Monocytes Percent Auto 7.8 % (2.6-8.5); Neutrophils Absolute Auto 2.5 K/mm3 (1.3-6.7); Neutrophils Percent Auto 55.1 % (45.5-73.1); Platelet Count Result 108 k/mm3 (150-375); Red Blood Count 3.37 M/mm3 (4.2-5.4); Red Cell Distribution Width 13.3 % (11.5-14.5); White Blood Count 4.5 K/mm3 (4.5-10.0)
[2023-02-21 06:54] LABS: Albumin Level 3.3 g/dL (3.5-5.1); Anion Gap 4 mmol/L (8-16); Blood Urea Nitrogen 27 mg/dL (7-17); Calcium 7.7 mg/dL (8.4-10.2); Carbon Dioxide 36 mmol/L (22-30); Chloride 98 mmol/L (98-107); Estimated Glomerular Filt Rate 9; Glucose 138 mg/dL (65-110); Phosphorus 3.5 mg/dL (2.5-4.5); Potassium 4.4 mmol/L (3.4-5.0); Sodium 138 mmol/L (137-145)
[2023-02-21 07:46] LABS: Glucose Point of Care 132 mg/dl (65-105)
[2023-02-21] MEDS: SEVELAMER CARBONATE 800 MG TABLET PO ×2 (08:15→18:33)
[2023-02-21] MEDS: APIXABAN 5 MG TABLET PO (08:15)
[2023-02-21] MEDS: ASPIRIN 81 MG ENTERIC TABLET PO (08:16)
[2023-02-21] MEDS: GABAPENTIN 400 MG CAPSULE PO ×2 (08:16→18:33)
[2023-02-21] MEDS: carvediloL 6.25 MG TABLET PO (08:16)
[2023-02-21] MEDS: LOSARTAN POTASSIUM 50 MG TABLET PO (08:17)
[2023-02-21] MEDS: PANTOPRAZOLE 40 MG TABLET PO (08:17)
[2023-02-21] MEDS: ALBUTEROL SULFATE (*SP) AEROSOL 1 PUFF 2 PUFF INHALATION (11:50)
[2023-02-21 12:02] LABS: Glucose Point of Care 243 mg/dl (65-105)
[2023-02-21] MEDS: INSULIN ASPART (*BKC) 100 UNITS/ML SUB-Q (12:17)
--- NOTE | 2023-02-21 12:54 | PC.NURSE ---
On 02/21/23, the student, [Page Vergara], provided care and completed [facility] documentation on this patient. I have reviewed the student's documentation and agree with the findings.
--- NOTE | 2023-02-21 14:55 | PM.PNNEP ---
Progress Note: A&P Assessment and Plan (1) End stage renal disease: Status: Chronic Assessment and Plan: HD yesterday (since missed treatment on Saturday) HD today and continue T/T/S dialysis schedule while hospitalized follow electrolytes, volume status, and clearance (2) Chest pain: Code(s): R07.9 - Chest pain, unspecified Status: Acute Assessment and Plan: no further episodes since admission related to missed dialysis treatment Cardiology recommendations noted (3) Hypertension: Status: Chronic Assessment and Plan: can be quite erratic at times resumed on home medications follow trend of hemodynamics (4) Anemia: Status: Chronic Assessment and Plan: due to ESRD close to goal Epogen with HD follow trend of H/H (5) Insulin dependent type 2 diabetes mellitus: Status: Chronic Assessment and Plan: follow accuchecks glycemic control per hospitalists Not opposed to discharge from renal perspective if otherwise medically stable. Will continue to follow. Subjective Date/time seen: 02/21/23 14:55 Interval history: Follow-up for end stage renal disease on hemodialysis. Tolerating dialysis treatment at the time of my visit (seen on HD at 2:45PM); resting comfortably and in no distress; no further episodes of chest pain voiced; breathing appears stable; no other issues/events overnight or earlier this morning. Exam Narrative: General: elderly female in NAD Heart: normal S1 and S2; no rub Lungs: clear anteriorly; decreased at bases Abdomen: soft, nontender, nondistended, positive bowel sounds Extremities: no cyanosis or clubbing; no edema; s/p left BKA and right AKA Skin: warm and dry Objective Data Vital Signs Vital Signs: Vital Signs Temp Pulse Resp BP Pulse Ox O2 Del Method 02/21/23 14:45 64 181/75 H 02/21/23 14:34 66 169/87 H 02/21/23 12:00 66 02/21/23 11:53 92 Room Air 02/21/23 08:00 65 02/21/23 11:19 Room Air 02/21/23 09:54 96.8 F L 65 16 156/58 H 97 02/21/23 08:37 93 Room Air 02/21/23 08:26 66 155/60 H 93 02/21/23 08:16 66 02/21/23 04:00 98.5 F 64 18 169/41 H 94 02/21/23 04:00 62 02/21/23 04:00 98.5 F 62 18 152/38 H 96 02/21/23 00:00 98.3 F 68 18 186/51 H 68 L 02/21/23 00:00 98.1 F 92 18 120/42 L 94 02/21/23 00:04 77 02/20/23 20:01 70 02/20/23 20:23 68 02/20/23 20:00 98.0 F 70 18 158/45 H 96 02/20/23 20:09 98.8 F 71 18 141/32 H 92 02/20/23 16:00 70 02/20/23 16:00 97.5 F L 71 18 151/55 H 94 Intake/Output Intake/Output: Intake & Output 02/18/23 02/19/23 02/20/23 02/21/23 23:59 23:59 23:59 23:59 Intake Total 390 480 Output Total 2000 200 Balance -1610 280 Meds/Results Medications: Active Medications Generic Name Dose Route Start Last Admin Trade Name Freq PRN Reason Stop Dose Admin Acetaminophen 650 mg 02/20/23 05:20 Acetaminophen 325 Mg Tablet PO Q4H PRN Mild Pain (1-3) or Fever Albuterol 2 puff 02/20/23 05:14 02/21/23 11:50 Albuterol Sulfate (*Sp) Aerosol 1 Puff INHALATION 2 puff QID PRN Administration Shortness Of Breath Or Wheezing Apixaban 5 mg 02/20/23 09:00 02/21/23 08:15 Apixaban 5 Mg Tablet PO 5 mg Q12HR KEMI Administration Aspirin 81 mg 02/20/23 09:00 02/21/23 08:16 Aspirin 81 Mg Enteric Tablet PO 81 mg QAM KEMI Administration Atorvastatin Calcium 40 mg 02/20/23 21:00 02/20/23 20:22 Atorvastatin 40 Mg Tablet PO 40 mg HS KEMI Administration Calcium Carbonate 400 mg 02/20/23 05:25 Calcium Carbonate (Tums) 500 Mg (200 Mg Elemental) BY MOUTH DAILY PRN Indigestion Carvedilol 6.25 mg 02/20/23 09:00 02/21/23 08:16 Carvedilol 6.25 Mg Tablet PO 6.25 mg Q12HR KEMI Administration Dextrose 12.5 gm 02/20/23 11:56 D
--- NOTE | 2023-02-21 15:43 | PM.DS ---
DS: Admitting Diagnosis Discharge Date 02/21/2023 Admitting Diagnosis Shortness of breath/chest pain DS: Discharge Diagnosis Discharge Diagnosis (1) Chest pain: Qualifiers: Chest pain type: unspecified Qualified Code(s): R07.9 - Chest pain, unspecified Code(s): R07.9 - Chest pain, unspecified Status: Acute (2) Coronary artery disease with hx of myocardial infarct w/o hx of CABG: Code(s): I25.10 - Atherosclerotic heart disease of [place] coronary artery without angina pectoris; I25.2 - Old myocardial infarction Status: Acute (3) Benign hypertension with ESRD (end-stage renal disease): Code(s): I12.0 - Hypertensive chronic kidney disease with stage 5 chronic kidney disease or end stage renal disease; N18.6 - End stage renal disease Status: Acute (4) Amputation of lower extremity: Code(s): S88.919A - Complete traumatic amputation of unspecified lower leg, level unspecified, initial encounter Status: Acute (5) Hypertension: Qualifiers: Hypertension type: renovascular hypertension Qualified Code(s): I15.0 - Renovascular hypertension Code(s): I10 - Essential (primary) hypertension Status: Chronic (6) Digital arterial occlusive disease: Code(s): I77.9 - Disorder of arteries and arterioles, unspecified Status: Acute (7) History of amputation below knee: Code(s): Z89.519 - Acquired absence of unspecified leg below knee Status: Acute (8) End-stage renal disease on hemodialysis: Code(s): N18.6 - End stage renal disease; Z99.2 - Dependence on renal dialysis Status: Acute (9) Chronic anemia: Code(s): D64.9 - Anemia, unspecified Status: Acute (10) Insulin dependent type 2 diabetes mellitus: Code(s): E11.9 - Type 2 diabetes mellitus without complications; Z79.4 - FDC (current) use of insulin Status: Chronic (11) Amputation below knee: Code(s): S88.119A - Complete traumatic amputation at level between knee and ankle, unspecified lower leg, initial encounter Status: Acute (12) Obesity: Code(s): E66.9 - Obesity, unspecified Status: Acute (13) ESRD (end stage renal disease): Code(s): N18.6 - End stage renal disease Status: Acute (14) Anxiety with depression: Code(s): F41.8 - Other specified anxiety disorders Status: Acute (15) Missed dialysis: Status: Acute DS: Summary Hospital Course Hospital Course: Patient presented the ER with chest discomfort and shortness of breath. She has end-stage renal disease and gets dialysis Saturday. She missed dialysis on Saturday because she was having diarrhea. She reports the diarrhea has already resolved. She woke up in the middle of the night to go to the bathroom and developed diffuse chest discomfort and mild shortness of breath. She was hypertensive on arrival to the ER. EKG had some subtle changes which were reviewed with the radiologic technician. Troponin were negative. Chest x-ray with probable mild bibasilar pulmonary edema. It was suspected her symptoms related to her missed dialysis. She was dialyzed with the help of Nephrology team on Saturday with improvement in her symptoms. She is continued on they usual dialysis schedule and will be discharged home. Cardiology deferred any inpatient workup for her chest pain as was probably related to her missed dialysis. She was hypertensive and will had just her medication losartan to 100 mg daily. She will be discharged home and will follow-up with her regular radiologic technician and juvenile justice officer as an outpatient basis. Time Spent with Patient Time attestation: Total time spent providing and/or coordinating discharge services: 35 minutes Exam Narrative: General physical exam: patient lying in bed, no acute distress Head/eyes: Atraumatic, EOMI, PERRLA ENT: Moist mucous membranes, nasal passages clear Neck: Supple, full
[2023-02-21] MEDS: EPOETIN ALFA-EPBX 10,000 UNITS/ML VIAL 10000 UNITS IV PUSH (16:38)
[2023-02-21] MEDS: HEPARIN SODIUM 1,000 UNITS/ML VIAL 1000 UNITS IV PUSH (17:43)
== END 2023-02-21 19:15 | disposition home or self-care (01) | DRG 313 ==
LOC: ANHED 03:34 → ANH2MED 04:18
PROVIDERS: Hospitalist; Internal Medicine Nephrology; Admitting Provider Family Medicine; Emergency Provider Emergency Medicine; PCP Internal Medicine; Visit Provider Internal Medicine
DX: R07.89 Other chest pain (principal); N18.6 End stage renal disease; I12.0 Hypertensive chronic kidney disease with stage 5 chronic kidney disease or end stage renal disease; Z91.158 Patient's noncompliance with renal dialysis for other reason; E11.22 Type 2 diabetes mellitus with diabetic chronic kidney disease; I25.10 Atherosclerotic heart disease of native coronary artery without angina pectoris; F41.8 Other specified anxiety disorders; E66.9 Obesity, unspecified; E78.5 Hyperlipidemia, unspecified; N25.0 Renal osteodystrophy; D63.1 Anemia in chronic kidney disease; E11.319 Type 2 diabetes mellitus with unspecified diabetic retinopathy without macular edema; E11.42 Type 2 diabetes mellitus with diabetic polyneuropathy; Z66 Do not resuscitate; F17.210 Nicotine dependence, cigarettes, uncomplicated; Z79.4 Long term (current) use of insulin; I25.2 Old myocardial infarction; Z86.16 Personal history of COVID-19; Z95.1 Presence of aortocoronary bypass graft; Z98.41 Cataract extraction status, right eye; Z98.42 Cataract extraction status, left eye; Z99.2 Dependence on renal dialysis; Z98.1 Arthrodesis status; Z89.611 Acquired absence of right leg above knee; Z89.512 Acquired absence of left leg below knee; Z89.022 Acquired absence of left finger(s); Z95.820 Peripheral vascular angioplasty status with implants and grafts
CPT/HCPCS: 36415; 71045; 80053; 80069; 82948; 84484; 85025; 85055; 86706; 87040; 87340; 93005; 94640; 96374; 99285; A9270; G0257; G0378; J1644; J1815; J3010; J7030; Q5105

== ENCOUNTER 2023-02-26 06:50 | Inpatient (IN) | payer MEDICARE, OTHER, SELFPAY ==
[2023-02-26] VITALS (37 sets, daily range): BP systolic 130–199; BP diastolic 54–88; PULSE 64–85; RESP 15–23; TEMP 36–37.1; O2SAT 87–100; BMI 48.2
--- NOTE | ~2023-02-26 | XR_ITS ---
EXAMINATION: XR chest 1V portable DATE: 02/26/2023 07:36 INDICATION: Chest pain. Shortness of breath. TECHNIQUE: A single frontal view of the chest was obtained. COMPARISON: Chest single view 02/20/2023 FINDINGS: There is an interstitial pattern, consistent with mild pulmonary edema. No pleural effusion or pneumothorax. Cardiomegaly is noted. Median sternotomy wires and mediastinal surgical clips are s een, likely from prior coronary artery bypass grafting. A right internal jugular central venous slade ter is seen with tip in the right atrium. IMPRESSION: 1. Mild pulmonary edema. 2. Cardiomegaly. Reviewed, dictated and finalized at location A.
--- NOTE | 2023-02-26 06:54 | ECG_ITS ---
Measurements Intervals [place] Rate: 79 P: 54 MD: 200 QRS: -89 QRSD: 152 T: 64 QT: 423 QTc: 486 Interpretive Statements SINUS RHYTHM ATRIAL PREMATURE COMPLEXES RIGHT BUNDLE BRANCH BLOCK LEFT ANTERIOR FASCICULAR BLOCK CANNOT RULE OUT SEPTAL INFARCT, AGE INDETERMINATE BASELINE WANDER- I, III, AVR, AVL, AVF, V4-V6 ABNORMAL ECG COMPARED TO ECG 02/20/2023 02:09:42 NO SIGNIFICANT CHANGES Electronically Signed On 02-26-2023 7:02:17 CDT by Fito Mcintosh D.O.
[2023-02-26 07:11] LABS: Basophils Percent Auto 0.5 % (0.2-1.2); Eosinophils Absolute Auto 0.2 K/mm3 (0-0.3); Eosinophils Percent Auto 2.8 % (0-4.4); Hematocrit 36.2 % (37.0-47.0); Hemoglobin 11.2 g/dL (12.0-15.0); Immature Granulocyte Absolute 0.04 K/mm3 (0.00-0.031); Immature Granulocyte Percent A 0.5 % (0-0.5); Lymphocytes Absolute Auto 1.18 K/mm3 (0.9-3.2); Lymphocytes Percent Auto 15.8 % (18.3-44.2); Mean Corpuscular HGB Conc 30.9 g/dl (32-36); Mean Corpuscular Hemoglobin 31.9 pg (26-34); Mean Corpuscular Volume 103.1 fl (80-100); Mean Platelet Volume 12.9 fl (7.4-10.4); Monocytes Absolute Auto 0.5 K/mm3 (0.1-0.6); Monocytes Percent Auto 6.3 % (2.6-8.5); Neutrophils Absolute Auto 5.6 K/mm3 (1.3-6.7); Neutrophils Percent Auto 74.1 % (45.5-73.1); Platelet Count Result 111 k/mm3 (150-375); Red Blood Count 3.51 M/mm3 (4.2-5.4); Red Cell Distribution Width 13.5 % (11.5-14.5); White Blood Count 7.5 K/mm3 (4.5-10.0)
[2023-02-26 07:21] LABS: Alanine Aminotransferase 13 U/L (6-35); Albumin Level 3.6 g/dL (3.5-5.1); Alkaline Phosphatase 125 U/L (38-126); Anion Gap 7 mmol/L (8-16); Aspartate Amino Transferase 18 U/L (14-36); Bilirubin,Total 0.7 mg/dL (0.2-1.3); Blood Urea Nitrogen 35 mg/dL (7-17); Calcium 7.5 mg/dL (8.4-10.2); Carbon Dioxide 28 mmol/L (22-30); Chloride 103 mmol/L (98-107); Estimated Glomerular Filt Rate 7; Glucose 287 mg/dL (65-110); Lipase 239 U/L (23-300); Potassium 4.9 mmol/L (3.4-5.0); Sodium 138 mmol/L (137-145)
[2023-02-26 07:22] LABS: INR 1.3; Prothrombin Time 16.8 Seconds (11.1-14.7)
[2023-02-26 07:23] LABS: Partial Thromboplastin Time 35.9 SECONDS (22.3-36.8)
[2023-02-26 07:33] LABS: Troponin I 0.019 ng/mL (0.000-0.034)
--- NOTE | 2023-02-26 07:35 | ED.GENADULT ---
HPI - General Adult General Chief complaint: Chest Pain Stated complaint: chest pain Time Seen by Provider: 02/26/23 06:59 History of Present Illness HPI narrative: 72-year-old female presented to the emergency department for evaluation of increased shortness of breath. Patient is on dialysis and gets dialysis on Tuesdays and Saturday. Patient began having increased chest pain and shortness of breath overnight. Related Data Home Medications Medication Instructions Recorded Confirmed apixaban 5 mg tablet (Eliquis) 5 mg PO BID 11/03/19 02/26/23 carvedilol 25 mg tablet 6.25 mg PO BID 11/03/19 02/26/23 insulin degludec 100 unit/mL 15 unit subcut HS 11/03/19 02/26/23 subcutaneous solution (Tresiba U-100 Insulin) pravastatin 40 mg tablet 40 mg PO HS 11/03/19 02/26/23 cetirizine 10 mg tablet 10 mg PO DAILY PRN allergies 02/06/22 02/26/23 insulin aspart U-100 100 unit/mL 8 unit subcut TIDWMEAL 02/28/22 02/26/23 (3 mL) subcutaneous pen (Novolog FlexPen U-100 Insulin aspart) pantoprazole 40 mg tablet,delayed 40 mg PO DAILY Heartburn 02/28/22 02/26/23 release acetaminophen 500 mg capsule 1,000 mg PO Q6H PRN Pain 01/10/23 02/26/23 calcium carbonate 300 mg (750 mg) 2 tablet PO DAILY PRN Indigestion 01/10/23 02/26/23 chewable tablet (Tums E-X) nifedipine 30 mg tablet,extended 30 mg PO .MONWEDFRISUN 02/20/23 02/26/23 release Allergies Allergy/AdvReac Type Severity Reaction Status Date / Time No Known Allergies Allergy Verified 01/24/23 09:58 Review of Systems Review of Systems: All systems reviewed & are unremarkable except as noted in HPI and below PMFSH Past Medical History Medical History Anxiety with depression Arterial vascular disease Chronic anemia Coronary artery disease COVID Digital arterial occlusive disease End-stage renal disease on hemodialysis Saturday, , Saturday. 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 Hemoglobin A1c was 6.8% in February 2020. Osteomyelitis Peripheral vascular disease Renal osteodystrophy Thrombocytopenia Surgical History Surgical History Amputation of right forefoot Right 4th and 5th ray amputation in 04/2017. Right foot transmetatarsal amputation with partial fasciotomy due to wet gangrene, osteomyelitis, and necrotizing fasciitis in May 2017. 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 History of below-knee amputation of both lower extremities Left [id number] amputation in 2017. Right [id number] amputation in 02/2020. 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 History of vascular surgery Right lower extremity stents in March 2017. Left lower extremity stent in 2014. Family History Family History Mother Diabetes mellitus Father Lung cancer Acute myocardial infarction Sibling Diabetes mellitus Social History Social History Social History: Surrogate medical decision maker: Kierra Blanton (sister) or Cyndi Blanton (daughter). Code status: DNR Smoking packs per day: 0.15 Smoking cigarettes per day: 3.0 Years smoked: 60 Smoking pack-years: 9.00 Smoking status: Current some day smoker Tobacco type: cigarettes Second hand tobacco smoke exposure: Yes Additional smoking assessment comments: 4 daily currently Alcohol intake: never Drinks per week: 1 Alcohol
[2023-02-26] MEDS: ALBUTEROL SULFATE NEB 2.5 MG/3 ML INH INHALATION (07:48)
--- NOTE | 2023-02-26 10:31 | ADMGEN ---
This patient, Tawana Prado, was admitted to IMU Room [id number]. Patient/family oriented to hospital policies and general routines including ID bracelet, bed and alarms, visiting hours, pain management, procedures, bathroom and other care routines, personal items, smoking policy, room service/diet, and visiting hours. Information on how to activate the Rapid Response Team has been discussed. Patient/Family are encouraged to report perceived risks to care and to ask questions if they do not understand what they are told or what they should do.
--- NOTE | 2023-02-26 12:35 | PM.CNNEP ---
Assessment and Plan Assessment and plan (1) End stage renal disease: Status: Chronic Assessment and Plan: HD today continue T/T/S dialysis schedule while hospitalized follow electrolytes, volume status, and clearance (2) Chest pain: Qualifiers: Chest pain type: unspecified Qualified Code(s): R07.9 - Chest pain, unspecified Code(s): R07.9 - Chest pain, unspecified Status: Acute Assessment and Plan: no further episodes since admission follow telemetry and repeat troponins need for stress test? . (3) Shortness of breath: Code(s): R06.02 - Shortness of breath Status: Acute Assessment and Plan: likely related to several issues: mild pulmonary edema chest pain underlying history of COPD admission CXR noted push fluid removal/ultrafiltration as tolerated wean supplemental oxygen as tolerated (4) Hypertension: Status: Chronic Assessment and Plan: elevated at this time resumed home medications may need to add PRN medications as well follow trend of hemodynamics post-HD (5) Anemia: Status: Chronic Assessment and Plan: due to ESRD at goal Epogen with HD if Hgb < 10 follow trend of H/H (6) Insulin dependent type 2 diabetes mellitus: Status: Chronic Assessment and Plan: follow accuchecks glycemic control per hospitalists I will continue follow the patient with you while she remains hospitalized make further recommendations during her hospital course. Thank you for allowing me to participate in the care of this patient. History of Present Illness Reason for Consult Consult date: 02/26/23 Reason for consult: end stage renal disease Chief Complaint Chief complaint: chest pain,fluid overload,hypoxia History of Present Illness Narrative: The patient is a 72-year-old female with a past medical history as outlined below who presented to [facility] Emergency Room with complaints of chest pain and shortness of breath. The patient reports that she started having issues with shortness of breath and chest pain early this AM that did not resolve and continued to worsen. Her symptoms started about an hour prior to her arrival to the emergency room and seemed to worsen when she attempted to use the restroom. As she was feeling so poorly, EMS was called for assistance. By the time of their arrival, she reportedly was 83% on room air and a non-rebreather mask had to be applied to improve her oxygen saturations. Given her complaints of chest pain, she was given sublingual nitro as well as aspirin and subsequently transferred to the emergency room for further assessment. Workup and evaluation in the emergency room demonstrated the patient to be hemodynamically stable (if not a bit hypertensive in the 160s systolic) with improvement in her complaints of shortness of breath and chest pain By the time of her arrival. Her oxygen saturations were doing better and she was able to be weaned down to 2 L nasal cannula. Routine blood test demonstrated labs consistent with her known history of end-stage renal disease with no critical electrolyte abnormalities. Her chest x-ray showed mild pulmonary edema and cardiomegaly and her EKG did not demonstrate any acute ischemic changes. Her initial troponin was negative. Given her known complex history with regard to cardiovascular disease and numerous risk factors as well as the fact that she is due for dialysis today, she was admitted to the hospital for further evaluation and therapy. Renal consultation was requested due to her end-stage renal disease. The patient is quite familiar to me as I have taking care of her on multiple occasions whenever she is admitted here to [facility]. The patient normally dialyzes on a Saturday, , Saturday dialysis schedule at [facility] under the care of Dr. Clarke. From my discussion with her ou
--- NOTE | 2023-02-26 13:09 | PM.IMHP ---
H&P: HPI History of Present Illness Date/Time: 02/26/23 13:00 Chief Complaint: Chest pain. Narrative: This is a 72-year-old female with coronary artery disease with history of CABG peripheral vascular disease status post bilateral lower extremity amputations, insulin-dependent diabetes, end-stage renal disease on hemodialysis, hypertension, and chronic anemia who presented to the emergency department for evaluation of chest pain. She is well known to the hospitalist service from frequent admissions over the years. She has been in and out of the hospital recently with chest pain and was just discharged home 5 days ago. She was seen by Dr. Calzada at that time who increased her carvedilol dose to 12.5 mg p.o. b.i.d.; her troponins were negative throughout the stay. He did recommend a Lexiscan perfusion study if she developed chest pain again. This morning she got up to use the restroom and she started to feel short of breath ?like I was suffocating? with diffuse anterior chest tightness. Emergency services were summoned and on EMS arrival her spO2 was 83%. She was placed on a non-rebreather mask and was given aspirin and nitroglycerin en route to the hospital. She is chest pain free at this time. In the ED: Blood pressures have been running between the 150s to 190s systolic. CMP and CBC are pretty consistent with her baseline without electrolyte abnormalities. Initial troponin was 0.019 however her 3 are troponin did jump to 0.390. EKG showed sinus rhythm without any significant change compared to prior tracings. Mild pulmonary edema was noted on chest x-ray. She is being admitted in this setting for close monitoring and Cardiology consultation. Review of Systems Review of Systems: Twelve systems were reviewed and are negative except for as per HPI. [facility] Past Medical History Medical History Anxiety with depression Arterial vascular disease Chronic anemia Coronary artery disease COVID Digital arterial occlusive disease End-stage renal disease on hemodialysis Saturday, , Saturday. 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 Hemoglobin A1c was 6.8% in February 2020. Osteomyelitis Peripheral vascular disease Renal osteodystrophy Thrombocytopenia Surgical History Surgical History Amputation of right forefoot Right 4th and 5th ray amputation in 04/2017. Right foot transmetatarsal amputation with partial fasciotomy due to wet gangrene, osteomyelitis, and necrotizing fasciitis in May 2017. 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 History of below-knee amputation of both lower extremities Left [id number] amputation in 2017. Right [id number] amputation in 02/2020. 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 History of vascular surgery Right lower extremity stents in March 2017. Left lower extremity stent in 2014. Family History Family History Mother Diabetes mellitus Father Lung cancer Acute myocardial infarction Sibling Diabetes mellitus Social History Social History Social History: Surrogate medical decision maker: Kierra Blanton (sister) or Cyndi Blanton (daughter). Code status: DNR Smoking packs per day: 0.15 Smoking cigarettes per day: 3.0 Years smoked: 60 Smoking pack-years: 9.00 Smoking status: Current some day smoke
--- NOTE | 2023-02-26 16:19 | PM.CNCAR ---
Assessment and Plan Assessment and plan (1) NSTEMI (non-ST elevated myocardial infarction): Code(s): I21.4 - Non-ST elevation (NSTEMI) myocardial infarction Status: Acute Assessment and Plan: Initial troponin negative at 0.019. Second troponin elevated at 0.390. Third troponin is now up to 1.480. EKG with sinus rhythm, PACs, RBBB, no significant changes compared to prior EKG. At last admission on 02/20, her troponins were negative at that time. Patient has had several recurrent admissions now for chest pain evaluation. I personally reviewed the coronary angiogram images that were done at [facility] in 2019 prior to her bypass, along with her last peripheral angiography images. She has not had catheterization since her bypass. Given her history of significant complex coronary artery disease, her symptoms, and the degree of troponin elevation, recommend coronary angiography + bypass graft angiography to delineate her coronary and graft anatomy. Her presentation this time certainly could be demand ischemia from hypertensive urgency, but cannot rule out underlying acute coronary syndrome. I discussed recommendations for cardiac cath with the patient, including indication for the procedure, procedure details, risks vs benefits, along with alternative management options with the patient. I also discussed with the patient that she is at higher risk for complications, particularly vascular complications given her known severe PAD. I also discussed with the patient that if she did need coronary intervention done, unfortunately, we would not be able to do intervention here at [facility] as we cannot perform complex intervention here. I also discussed with the patient that because she is on Eliquis, we would need at least a 48 hour washout prior to cath to decrease her risk of bleeding. Patient states that she took all of her medications this morning, therefore, the earliest that we would be able to do the cardiac cath would be . After my discussion with the patient, patient is agreeable to cardiac cath, but she also tells me that she would prefer to have procedure done by her [facility] team if possible. I will reach out to [facility] team to discuss her case and possible transfer to their team. In the meantime, I will place her Eliquis on hold. Loaded with ASA 324mg in the ED, will continue with ASA 81mg once daily. Will load with Plavix 600mg x 1 followed by 75mg daily. Will start Heparin drip. Continue beta keith and statin. (2) Coronary artery disease with hx of myocardial infarct w/o hx of CABG: Code(s): I25.10 - Atherosclerotic heart disease of [place] coronary artery without angina pectoris; I25.2 - Old myocardial infarction Status: Acute Assessment and Plan: Underwent 4 vessel CABG on 04/29/[address] Alexander. Graft anatomy: HATSINGS to LAD SVG to Ramus SVG to OM SVG to posterolateral branch of RCA Management of CAD as noted above (3) Peripheral vascular disease: Code(s): I73.9 - Peripheral vascular disease, unspecified Status: Acute Assessment and Plan: Has known severe PAD. Continue ASA, statin. (4) Hypertension: Qualifiers: Hypertension type: renovascular hypertension Qualified Code(s): I15.0 - Renovascular hypertension Code(s): I10 - Essential (primary) hypertension Status: Chronic Assessment and Plan: Presented with SBP in the 190s, now improved. Continue home Losartan 100mg. Continue home Nifedipine and Coreg. Can uptitrate dose of Nifedipine and Coreg as needed for additional blood pressure control. (5) End-stage renal disease on hemodialysis: Code(s): N18.6 - End stage renal disease; Z99.2 - Dependence on renal dialysis Status: Acute Assessment and Plan: Nephrology has been consulted. (6) Insulin dependent type 2 diabetes mellitus: Code(s): E11.9 - Type 2 diabetes mellitus without complications; Z79.4 - prison (current) use of i
[2023-02-26 17:08] LABS: Glucose Point of Care 185 mg/dl (65-105)
[2023-02-26 17:27] LABS: Basophils Percent Auto 0.6 % (0.2-1.2); Eosinophils Absolute Auto 0.2 K/mm3 (0-0.3); Eosinophils Percent Auto 2.7 % (0-4.4); Hematocrit 36.7 % (37.0-47.0); Hemoglobin 11.3 g/dL (12.0-15.0); Immature Granulocyte Absolute 0.04 K/mm3 (0.00-0.031); Immature Granulocyte Percent A 0.6 % (0-0.5); Lymphocytes Absolute Auto 1.19 K/mm3 (0.9-3.2); Lymphocytes Percent Auto 18.6 % (18.3-44.2); Mean Corpuscular HGB Conc 30.8 g/dl (32-36); Mean Corpuscular Hemoglobin 31.7 pg (26-34); Mean Corpuscular Volume 102.8 fl (80-100); Mean Platelet Volume 12.9 fl (7.4-10.4); Monocytes Absolute Auto 0.4 K/mm3 (0.1-0.6); Monocytes Percent Auto 6.7 % (2.6-8.5); Neutrophils Absolute Auto 4.5 K/mm3 (1.3-6.7); Neutrophils Percent Auto 70.8 % (45.5-73.1); Platelet Count Result 118 k/mm3 (150-375); Red Blood Count 3.57 M/mm3 (4.2-5.4); Red Cell Distribution Width 13.4 % (11.5-14.5); White Blood Count 6.4 K/mm3 (4.5-10.0)
[2023-02-26] MEDS: HEPARIN SODIUM 5,000 UNITS/ML VIAL 3000 UNITS IV PUSH (17:30)
[2023-02-26] MEDS: HEPARIN SOD/D5W 100 UNITS/ML 25,000 UNITS/250 ML BAG 6 UNITS IV CONT (17:31)
[2023-02-26] MEDS: CLOPIDOGREL BISULFATE 300 MG TABLET 600 MG PO (17:31)
[2023-02-26] MEDS: SEVELAMER CARBONATE 800 MG TABLET PO (17:32)
[2023-02-26] MEDS: carvediloL 12.5 MG TABLET PO (17:32)
[2023-02-26] MEDS: INSULIN ASPART (*BKC) 100 UNITS/ML 8 UNITS SUB-Q (17:32)
[2023-02-26 17:43] LABS: INR 1.2; Prothrombin Time 16.1 Seconds (11.1-14.7)
[2023-02-26 17:45] LABS: Partial Thromboplastin Time 38.4 SECONDS (22.3-36.8)
[2023-02-26 20:59] LABS: Glucose Point of Care 152 mg/dl (65-105)
[2023-02-26] MEDS: PRAVASTATIN SODIUM 20 MG TABLET 40 MG PO (21:03)
[2023-02-26] MEDS: INSULIN GLARGINE (*BKC) 100 UNITS/ML 15 UNITS SUB-Q (21:07)
[2023-02-27] VITALS (18 sets, daily range): BP systolic 145–172; BP diastolic 31–54; PULSE 57–78; RESP 16–21; TEMP 36.1–37.1; O2SAT 94–100
[2023-02-27 00:03] LABS: Partial Thromboplastin Time 48.7 SECONDS (22.3-36.8)
[2023-02-27] MEDS: HEPARIN SODIUM 5,000 UNITS/ML VIAL 4000 UNITS IV PUSH (00:25)
[2023-02-27 08:00] LABS: Basophils Percent Auto 0.5 % (0.2-1.2); Eosinophils Absolute Auto 0.2 K/mm3 (0-0.3); Eosinophils Percent Auto 2.6 % (0-4.4); Hematocrit 35.3 % (37.0-47.0); Hemoglobin 10.8 g/dL (12.0-15.0); Immature Granulocyte Absolute 0.03 K/mm3 (0.00-0.031); Immature Granulocyte Percent A 0.5 % (0-0.5); Lymphocytes Absolute Auto 1.37 K/mm3 (0.9-3.2); Lymphocytes Percent Auto 24.1 % (18.3-44.2); Mean Corpuscular HGB Conc 30.6 g/dl (32-36); Mean Corpuscular Hemoglobin 31.4 pg (26-34); Mean Corpuscular Volume 102.6 fl (80-100); Mean Platelet Volume 12.5 fl (7.4-10.4); Monocytes Absolute Auto 0.4 K/mm3 (0.1-0.6); Neutrophils Absolute Auto 3.7 K/mm3 (1.3-6.7); Neutrophils Percent Auto 65.3 % (45.5-73.1); Platelet Count Result 103 k/mm3 (150-375); Red Blood Count 3.44 M/mm3 (4.2-5.4); Red Cell Distribution Width 13.3 % (11.5-14.5); White Blood Count 5.7 K/mm3 (4.5-10.0)
[2023-02-27 08:16] LABS: Anion Gap 8 mmol/L (8-16); Blood Urea Nitrogen 20 mg/dL (7-17); Calcium 7.5 mg/dL (8.4-10.2); Carbon Dioxide 27 mmol/L (22-30); Chloride 100 mmol/L (98-107); Estimated Glomerular Filt Rate 10; Glucose 209 mg/dL (65-110); Magnesium 2.1 mg/dL (1.6-2.3); Potassium 4.2 mmol/L (3.4-5.0); Sodium 135 mmol/L (137-145)
[2023-02-27 08:20] LABS: Glucose Point of Care 168 mg/dl (65-105)
[2023-02-27 08:23] LABS: Partial Thromboplastin Time > 200.0 SECONDS (22.3-36.8)
[2023-02-27] MEDS: PANTOPRAZOLE 40 MG TABLET PO (09:10)
[2023-02-27] MEDS: SEVELAMER CARBONATE 800 MG TABLET PO ×3 (09:10→17:04)
[2023-02-27] MEDS: carvediloL 12.5 MG TABLET PO ×2 (09:10→17:04)
[2023-02-27] MEDS: ASPIRIN 81 MG ENTERIC TABLET PO (09:10)
[2023-02-27] MEDS: CLOPIDOGREL BISULFATE 75 MG TABLET PO (09:10)
[2023-02-27] MEDS: LOSARTAN POTASSIUM 100 MG TABLET PO (09:10)
[2023-02-27] MEDS: INSULIN ASPART (*BKC) 100 UNITS/ML 8 UNITS SUB-Q ×3 (09:11→17:13)
[2023-02-27] MEDS: NIFEdipine 30 MG TAB.ER.24 PO (09:16)
[2023-02-27 09:31] LABS: Partial Thromboplastin Time 66.2 SECONDS (22.3-36.8)
--- NOTE | 2023-02-27 09:46 | PM.IMPN ---
Progress Note: A&P Assessment and Plan (1) Chest pain: Qualifiers: Chest pain type: unspecified Qualified Code(s): R07.9 - Chest pain, unspecified Code(s): R07.9 - Chest pain, unspecified Status: Acute (2) Elevated troponin: Code(s): R77.8 - Other specified abnormalities of plasma proteins Status: Acute (3) End-stage renal disease on hemodialysis: Code(s): N18.6 - End stage renal disease; Z99.2 - Dependence on renal dialysis Status: Acute (4) Hypertension: Qualifiers: Hypertension type: renovascular hypertension Qualified Code(s): I15.0 - Renovascular hypertension Code(s): I10 - Essential (primary) hypertension Status: Chronic (5) Insulin dependent type 2 diabetes mellitus: Code(s): E11.9 - Type 2 diabetes mellitus without complications; Z79.4 - snf (current) use of insulin Status: Chronic (6) Chronic anemia: Code(s): D64.9 - Anemia, unspecified Status: Acute (7) Chronic obstructive pulmonary disease: Code(s): J44.9 - Chronic obstructive pulmonary disease, unspecified Status: Acute (8) Peripheral vascular disease: Code(s): I73.9 - Peripheral vascular disease, unspecified Status: Acute Plan NSTEMI The patient presented to the emergency department for evaluation of chest pain shortness a breath as detailed in HPI. Labs, imaging, EKG, and all reports were personally reviewed. Her troponins are trending upwards. Dr. Domínguez spoke with the patient's global technical writer and they recommend going ahead with cardiac catheterization here at [place] however she is a high risk candidate for PCI and will need to be transferred if intervention was deemed necessary. She is on apixaban and presumably took her morning dose and thus her cardiac catheterization will be postponed until . She will be started on a heparin drip in the interim. Vital signs are stable, END-STAGE RENAL DISEASE AND UNCONTROLLED HYPERTENSION blood pressures are improving following dialysis. No acute electrolyte abnormalities noted on labs. CHRONIC ANEMIA Hemoglobin and hematocrit are stable. TYPE 2 DIABETES Initiate sliding scale insulin, Accu-Cheks, and hypoglycemic protocol. Her home medications will be reviewed and resumed as appropriate. Subjective Date/time seen: 02/27/23 09:46 Interval history: I saw and examined patient today. Patient still has intermittent chest pain. Patient denies shortness breath, palpitation Exam Narrative: General:??Chronically ill appearing female sitting up in bed. Weight: 81 kg. HEENT:??PERRL, EOMI. Sclera anicteric. Tacky mucous membranes. Neck:??Supple. Respiratory:?Respirations are nonlabored. Fine crackles at the bases. Cardiovascular:??Regular rate and rhythm with S1-S2.? Chest:?Hemodialysis catheter in the right chest. Gastrointestinal:??Abdomen is soft, nontender, and nondistended with positive bowel sounds. Skin:??Warm and dry. Extremities:??No cyanosis, clubbing, or edema. Status post left [id number] amputation and right usani-wew-zqos amputation. Neurological:??Alert.? Cranial nerves 2-12 are grossly intact. No gross focal deficits to casual conversation. Psychiatric:?Appropriate mood and affect. Objective Data Vital Signs Vital Signs: Vital Signs - 24 hr 02/26/23 11:52 02/26/23 11:52 02/26/23 12:05 Temperature 98.3 F Pulse Rate 69 65 Respiratory Rate 18 Blood Pressure 189/75 H 192/86 H Pulse Oximetry Oxygen Delivery Oxygen Flow Rate 2 Fraction of Inspired Oxygen 02/26/23 12:00 02/26/23 12:15 02/26/23 12:45 Temperature 97.4 F L Pulse Rate 66 65 64 Respiratory Rate 18 Blood Pressure 156/64 H 199/88 H 174/76 H Pulse Oximetry 100 Oxygen Delivery Oxygen Flow Rate Fraction of Inspired Oxygen 02/26/23 13:15 02/26/23 13:45 02/26/23 14:15 Temperature Pulse Rate 65 66 68 Respiratory Rate Blood Pressure 165
[2023-02-27] MEDS: HEPARIN SODIUM 5,000 UNITS/ML VIAL 2000 UNITS IV PUSH ×2 (09:53→17:04)
[2023-02-27 11:59] LABS: Glucose Point of Care 187 mg/dl (65-105)
--- NOTE | 2023-02-27 12:00 | PM.PNCARD ---
Progress Note: A&P Assessment and Plan (1) NSTEMI (non-ST elevated myocardial infarction): Code(s): I21.4 - Non-ST elevation (NSTEMI) myocardial infarction Status: Acute Assessment and Plan: Initial troponin negative at 0.019. Second troponin elevated at 0.390. Third troponin is now up to 1.480. Her troponin peaked at 2. EKG with sinus rhythm, PACs, RBBB, no significant changes compared to prior EKG. At last admission on 02/20, her troponins were negative at that time. Patient has had several recurrent admissions now for chest pain evaluation. I personally reviewed the coronary angiogram images that were done at [facility] in 2019 prior to her bypass, along with her last peripheral angiography images. She has not had catheterization since her bypass. Given her history of significant complex coronary artery disease, her symptoms, and the degree of troponin elevation, recommend coronary angiography + bypass graft angiography to delineate her coronary and graft anatomy. Her presentation this time certainly could be demand ischemia from hypertensive urgency, but cannot rule out underlying acute coronary syndrome. I discussed recommendations for cardiac cath with the patient, including indication for the procedure, procedure details, risks vs benefits, along with alternative management options with the patient. I also discussed with the patient that she is at higher risk for complications, particularly vascular complications given her known severe PAD. I also discussed with the patient that if she did need coronary intervention done, unfortunately, we would not be able to do intervention here at [facility] as we cannot perform complex intervention here. I also discussed with the patient that because she is on Eliquis, we would need at least a 48 hour washout prior to cath to decrease her risk of bleeding. Therefore, the earliest that we would be able to do the cardiac cath would be 02/28. After my discussion with the patient, patient is agreeable to cardiac cath. I also discussed patient's case with her primary clinical associate, Dr. Evette Blackwood with [facility]. Will plan on doing cardiac cath here at [place]. If she does need coronary intervention, then will plan to do that as an outpatient with her [facility] team (would not need inpatient transfer for PCI as patient has remained chest pain free, feels well and otherwise remains stable). Cardiac cath on 02/28. Eliquis on hold, Heparin drip started. Loaded with ASA 324mg in the ED, will continue with ASA 81mg once daily. Loaded with Plavix 600mg x 1, continue 75mg daily. Continue beta keith and statin. (2) Coronary artery disease with hx of myocardial infarct w/o hx of CABG: Code(s): I25.10 - Atherosclerotic heart disease of [place] coronary artery without angina pectoris; I25.2 - Old myocardial infarction Status: Acute Assessment and Plan: Underwent 4 vessel CABG on 04/29/[address] Alexander. Graft anatomy: HASTINGS to LAD SVG to Ramus SVG to OM SVG to posterolateral branch of RCA Management of CAD as noted above (3) Peripheral vascular disease: Code(s): I73.9 - Peripheral vascular disease, unspecified Status: Acute Assessment and Plan: Has known severe PAD. Continue ASA, statin. (4) Hypertension: Qualifiers: Hypertension type: renovascular hypertension Qualified Code(s): I15.0 - Renovascular hypertension Code(s): I10 - Essential (primary) hypertension Status: Chronic Assessment and Plan: Presented with SBP in the 190s, now improved. Continue home Losartan 100mg. Continue home Nifedipine and Coreg. Can uptitrate dose of Nifedipine and Coreg as needed for additional blood pressure control. (5) End-stage renal disease on hemodialysis: Code(s): N18.6 - End stage renal disease; Z99.2 - Dependence on renal dialysis Status: Acute Assessment and Plan: Nephrology has been consulted. (6) Insulin dependent
--- NOTE | 2023-02-27 13:08 | PM.PNNEP ---
Progress Note: A&P Assessment and Plan (1) End stage renal disease: Assessment and Plan: HD tomorrow continue T/T/S dialysis schedule while hospitalized follow electrolytes, volume status, and clearance (2) Chest pain: Qualifiers: Chest pain type: unspecified Qualified Code(s): R07.9 - Chest pain, unspecified Code(s): R07.9 - Chest pain, unspecified Status: Acute Assessment and Plan: elevated troponins noted Cardiology recommendations noted plan for cardiac catheterization tomorrow . (3) Shortness of breath: Code(s): R06.02 - Shortness of breath Status: Acute Assessment and Plan: likely related to several issues: mild pulmonary edema chest pain underlying history of COPD admission CXR noted push fluid removal/ultrafiltration as tolerated wean supplemental oxygen as tolerated (4) Hypertension: Assessment and Plan: can be quite erratic at times resumed on home medications follow trend of hemodynamics (5) Anemia: Assessment and Plan: due to ESRD at goal Epogen with HD when Hgb < 10 follow trend of H/H (6) Insulin dependent type 2 diabetes mellitus: Assessment and Plan: follow accuchecks glycemic control per hospitalists Will continue to follow. Subjective Date/time seen: 02/27/23 13:08 Interval history: Follow-up for end stage renal disease on hemodialysis. Tolerated hemodialysis treatment yesterday without any issues or problems; no apparent distress noted; trend of troponins noted but no further chest pain episodes since her admission to the hospital; no events overnight or earlier this morning. Exam Narrative: General: elderly female in NAD Heart: normal S1 and S2; no rub Lungs: clear anteriorly; decreased at bases Abdomen: soft, nontender, nondistended, positive bowel sounds Extremities: no cyanosis or clubbing; no edema; s/p left BKA and right AKA Skin: warm and dry Objective Data Vital Signs Vital Signs: Vital Signs Temp Pulse Resp BP Pulse Ox O2 Del Method O2 Flow Rate 02/27/23 12:00 68 02/27/23 12:00 96 Room Air 02/27/23 11:23 98.2 F 68 21 H 168/31 H 96 02/27/23 08:00 94 Room Air 02/27/23 10:00 63 02/27/23 08:00 64 02/27/23 08:10 94 Room Air 02/27/23 07:43 97.0 F L 60 20 154/43 H 100 02/27/23 06:00 58 L 02/26/23 20:00 99 Nasal Cannula 2 02/27/23 04:00 58 L 02/27/23 04:00 99 Nasal Cannula 2 02/27/23 03:19 98.7 F 57 L 16 149/54 H 99 02/27/23 02:00 60 02/27/23 00:00 100 Nasal Cannula 2 02/26/23 22:00 66 02/27/23 00:00 64 02/26/23 20:00 70 02/27/23 00:00 96.9 F L 64 20 164/54 H 100 02/26/23 20:00 99 Nasal Cannula 2 02/26/23 20:00 96.9 F L 67 16 164/60 H 99 02/26/23 18:00 70 02/26/23 16:00 100 Nasal Cannula 2 02/26/23 16:00 68 02/26/23 16:00 97.6 F 67 16 188/57 H 100 02/26/23 15:38 71 130/65 02/26/23 15:30 68 160/75 H 02/26/23 15:15 68 162/73 H 02/26/23 15:44 97.9 F 66 18 173/76 H 02/26/23 15:00 153/76 H Intake/Output Intake/Output: Intake & Output 02/24/23 02/25/23 02/26/23 02/27/23 23:59 23:59 23:59 23:59 Intake Total 340 680 Output Total 2500 Balance -2160 680 Meds/Results Medications: Active Medications Generic Name Dose Route Start Last Admin Trade Name Freq PRN Reason Stop Dose Admin Acetaminophen 650 mg 02/26/23 14:33 Acetaminophen 325 Mg Tablet PO Q6H PRN Mild Pain (1-3) or Fever Apixaban 5 mg 02/26/23 17:00 Apixaban 5 Mg Tablet PO BID KEMI Aspirin 81 mg 02/27/23 09:00 02/27/23 09:10 Aspirin 81 Mg Enteric Tablet PO 81 mg QAM KEMI Administration Calcium Carbonate 400 mg 02/26/23 14:34 Calcium Carbonate (Tums) 500 Mg (200 Mg Elemental) PO
[2023-02-27 16:46] LABS: Partial Thromboplastin Time 70.9 SECONDS (22.3-36.8)
[2023-02-27 17:14] LABS: Glucose Point of Care 134 mg/dl (65-105)
[2023-02-27 20:47] LABS: Glucose Point of Care 146 mg/dl (65-105)
[2023-02-27] MEDS: PRAVASTATIN SODIUM 20 MG TABLET 40 MG PO (21:40)
[2023-02-27 23:20] LABS: Partial Thromboplastin Time 88.4 SECONDS (22.3-36.8)
[2023-02-27] MEDS: HEPARIN SOD/D5W 100 UNITS/ML 25,000 UNITS/250 ML BAG 9 UNITS IV CONT (23:37)
[2023-02-28] VITALS (27 sets, daily range): BP systolic 137–187; BP diastolic 44–89; PULSE 55–67; RESP 12–20; TEMP 35.7–36.9; O2SAT 93–100
[2023-02-28 05:18] LABS: Hematocrit 32.1 % (37.0-47.0); Hemoglobin 10.3 g/dL (12.0-15.0); Immature Platelet Fraction Pct 10.4 % (0.9-11.2); Mean Corpuscular HGB Conc 32.1 g/dl (32-36); Mean Corpuscular Volume 99.7 fl (80-100); Mean Platelet Volume 12.6 fl (7.4-10.4); Platelet Count Result 99 k/mm3 (150-375); Red Blood Count 3.22 M/mm3 (4.2-5.4); Red Cell Distribution Width 13.1 % (11.5-14.5); White Blood Count 5.4 K/mm3 (4.5-10.0)
[2023-02-28 05:27] LABS: Albumin Level 3.2 g/dL (3.5-5.1); Anion Gap 5 mmol/L (8-16); Blood Urea Nitrogen 29 mg/dL (7-17); Calcium 7.5 mg/dL (8.4-10.2); Carbon Dioxide 26 mmol/L (22-30); Chloride 101 mmol/L (98-107); Estimated Glomerular Filt Rate 7; Glucose 136 mg/dL (65-110); Magnesium 2.2 mg/dL (1.6-2.3); Phosphorus 4.3 mg/dL (2.5-4.5); Potassium 4.2 mmol/L (3.4-5.0); Sodium 132 mmol/L (137-145)
[2023-02-28 05:29] LABS: Partial Thromboplastin Time 76.2 SECONDS (22.3-36.8)
[2023-02-28 08:36] LABS: Glucose Point of Care 176 mg/dl (65-105)
[2023-02-28] MEDS: LOSARTAN POTASSIUM 100 MG TABLET PO (08:37)
[2023-02-28] MEDS: CLOPIDOGREL BISULFATE 75 MG TABLET PO (08:37)
[2023-02-28] MEDS: ASPIRIN 81 MG ENTERIC TABLET PO (08:37)
[2023-02-28] MEDS: carvediloL 12.5 MG TABLET PO ×2 (08:38→17:14)
[2023-02-28] MEDS: PANTOPRAZOLE 40 MG TABLET PO (08:38)
[2023-02-28 11:36] LABS: Glucose Point of Care 194 mg/dl (65-105)
--- NOTE | 2023-02-28 13:22 | PC.NURSE ---
Dialysis treatment cx after set-up. Patient in cardiac nursery laborer for extended time (scheduled for 1000). MD notified and dialysis treatment moved to 9 AM. Floor RN notified.
--- NOTE | 2023-02-28 13:41 | WPDMODSED ---
Moderate Sedation Note-Pt Data Patient Data Diagnosis: NSTEMI Present Complaint: NSTEMI Procedure to be performed/Plan: Coronary angiography, left heart cath, bypass graft angiography Allergies Allergy/AdvReac Type Severity Reaction Status Date / Time No Known Allergies Allergy Verified 01/24/23 09:58 Home Medications Medication Instructions Recorded Confirmed Type apixaban 5 mg tablet (Eliquis) 5 mg PO BID 11/03/19 02/26/23 History carvedilol 25 mg tablet 6.25 mg PO BID 11/03/19 02/26/23 History insulin degludec 100 unit/mL 15 unit subcut HS 11/03/19 02/26/23 History subcutaneous solution (Tresiba U-100 Insulin) pravastatin 40 mg tablet 40 mg PO HS 11/03/19 02/26/23 History cetirizine 10 mg tablet 10 mg PO DAILY PRN allergies 02/06/22 02/26/23 History insulin aspart U-100 100 unit/mL 8 unit subcut TIDWMEAL 02/28/22 02/26/23 History (3 mL) subcutaneous pen (Novolog FlexPen U-100 Insulin aspart) pantoprazole 40 mg tablet,delayed 40 mg PO DAILY Heartburn 02/28/22 02/26/23 History release sevelamer carbonate 800 mg tablet 800 mg PO TIDWM #90 tabs 12/22/22 02/26/23 Rx (Renvela) acetaminophen 500 mg capsule 1,000 mg PO Q6H PRN Pain 01/10/23 02/26/23 History calcium carbonate 300 mg (750 mg) 2 tablet PO DAILY PRN Indigestion 01/10/23 02/26/23 History chewable tablet (Tums E-X) nifedipine 30 mg tablet,extended 30 mg PO .MONWEDFRISUN 02/20/23 02/26/23 History release losartan 100 mg tablet 100 mg PO DAILY #30 tabs 02/21/23 02/26/23 Rx Current Medications: Active Medications Acetaminophen (Acetaminophen 325 Mg Tablet) 650 mg PO Q6H PRN PRN Reason: Mild Pain (1-3) or Fever Apixaban (Apixaban 5 Mg Tablet) 5 mg PO BID KEMI Calcium Carbonate (Calcium Carbonate (Tums) 500 Mg (200 Mg Elemental)) 400 mg PO DAILY PRN PRN Reason: Indigestion Carvedilol (Carvedilol 12.5 Mg Tablet) 12.5 mg PO BID [facility] Last Admin: 02/28/23 08:38 Dose: 12.5 mg Clopidogrel Bisulfate (Clopidogrel Bisulfate 75 Mg Tablet) 75 mg PO QAM [facility] Last Admin: 02/28/23 08:37 Dose: 75 mg Dextrose (Dextrose 50% 25 Gm/50 Ml Syringe) 12.5 gm IV PUSH PRN PRN; Protocol PRN Reason: Hypoglycemia Epoetin José-epbx (Epoetin José-Epbx 10,000 Units/Ml Vial) 10,000 units IV PUSH ONCE ONE Stop: 02/28/23 20:01 Glucagon (Glucagon For Inj 1 Mg Vial) 1 mg IM PRN PRN; Protocol PRN Reason: Hypoglycemia Glucose (Glucose Oral Gel 15 Gm Of Glucse In 37.5 Gm Tube) 15 gm PO PRN PRN; Protocol PRN Reason: Hypoglycemia Albumin Human (Albutein) 50 mls @ 999 mls/hr IVPB Q10M PRN PRN Reason: HYPOTENSION Stop: 03/28/23 09:38 Dextrose (Dextrose 5% 1,000 Ml) 1,000 mls @ 100 mls/hr IVPB PRN PRN; Protocol PRN Reason: Hypoglycemia Insulin Aspart (Insulin Aspart (*Bkc) 100 Units/Ml) 3 - 6 units SUB-Q TIDWM [facility]; Protocol Last Admin: 02/28/23 11:50 Dose: Not Given Insulin Aspart (Insulin Aspart (*Bkc) 100 Units/Ml) 1 - 3 units SUB-Q HS KEMI; Protocol Last Admin: 02/27/23 21:42 Dose: Not Given Insulin Aspart (Insulin Aspart (*Bkc) 100 Units/Ml) 8 units SUB-Q TIDWM [facility] Last Admin: 02/28/23 12:12 Dose: Not Given Insulin Glargine (Insulin Glargine (*Bkc) 100 Units/Ml) 15 units SUB-Q HS [facility] Stop: 03/28/23 20:59 Last Admin: 02/27/23 21:42 Dose: Not Given Loratadine (Loratadine 10 Mg Tablet) 10 mg PO DAILY PRN PRN Reason: allergies Losartan Potassium (Losartan Potassium 100 Mg Tablet) 100 mg PO DAILY [facility] Last Admin: 02/28/23 08:37 Dose: 100 mg Nifedipine (Nifedipine 30 Mg Tab.Er.24) 30 mg PO [id number] [facility] Last Admin: 02/27/23 09:16 Dose: 30 mg Pantoprazole Sodium (Pantoprazole 40 Mg Tablet) 40 mg PO DAILY [facility] Last Admin: 02/28/23 08:38 Dose: 40 mg Pravastatin Sodium (Pravastatin Sodium 20 Mg Tablet) 40 mg PO HS [facility] Last Admin: 02/27/23 21:40 Dose: 40 mg Sevelamer Carbonate (Sevelamer Carbonate 800 Mg Tablet) 800 mg PO TIDWM [facility] Last Admin: 02/28/23 12:12 Dose: Not Given Sedation/Anesthesia: No previ
--- NOTE | 2023-02-28 13:42 | WPDCARDPROC ---
Cardiac Cath Procedure Note Date of procedure:: 02/28/23 Performing physician:: CATHETERIZATION LABORATORY REPORT Procedure Date: 02/28/2023 Integrative Medicine Physician: Marci Domínguez M.D., [facility]? Referring Physician: Marci Domínguez M.D. ? Anesthesia: Versed and Fentanyl were ordered and given in my presence at 12:18, procedure ended at 13:28. Supervision of nurse monitored moderate sedation with Versed and Fentanyl was provided for 70 minutes. Total of Versed 4mg and Fentanyl 100mcg were administered by the Design Engineer Agricultural Equipment RN Ro Callahan. Pre-op Diagnosis: Coronary artery disease Post-op Diagnosis: 1. Severe [place] multivessel coronary artery disease 2. Patent HASTINGS to LAD bypass graft, however, the proximal portion of HASTINGS has a 70-80% focal stenosis. 3. Patent sequential SVG bypass graft to Ramus, OM, and RPLV. However, the proximal portion of the SVG bypass graft has an 80-90% focal stenosis; the mid portion of the graft has an 80% stenosis. 4. Left ventricular end-diastolic pressure is 14mmHg 5. Occluded right common femoral artery Procedure(s): 1. Moderate sedation 2. Ultrasound-guided access of the right common femoral artery, left common femoral artery 3. Coronary angiography 4. Left heart cath 5. Bypass graft angiography Access Site: Left common femoral artery (Right common femoral artery was accessed with micropuncture needle, but was found to be occluded; no sheath was placed in RCFA). Brief History and Clinical Indications: Patient is a 72 year old female with severe vascular disease and CAD s/p CABG who is referred for coronary angiography, left heart cath, bypass graft angiography for NSTEMI. All risks, benefits and alternatives to left heart catheterization with or without percutaneous coronary intervention was discussed at length with the patient. Risk of complications including but not limited to bleeding, infection, arrhythmia, stroke, worsening kidney function, blood loss, groin hematoma, limb loss, emergency coronary artery bypass grafting, and even were discussed with the patient and all questions were answered. The patient understood and wished to proceed. Time out called, patient name, date of , medical record number, allergies, procedure performed, identify Integrative Medicine Physician, patient and staff member concurred with accurate data, procedure carried on. Findings: LEFT HEART CATHETERIZATION FINDINGS: 1. Left main: There is severe distal left main stenosis of 90-99%. 2. Left anterior descending: The ostial LAD has a 90-99% stenosis. The LAD is AUGER SUPERVISOR in its mid portion immediately after the bifurcation of the first diagonal branch. The first diagonal branch is diffusely disease. Competitive filling is seen from the HASTINGS graft. 3. Ramus: The Ramus is a very small caliber vessel that is completely occluded just after the ostium. 4. Left circumflex: The left circumflex is diffusely diseased with severe ostial stenosis and severe disease throughout the mid and distal portions. OM-1 is a small caliber vessel with diffuse disease. Slow antegrade flow is seen in OM-2 with competitive filling in the distal portion from the bypass graft. OM-3 is a small caliber vessel with diffuse disease. 5. Right coronary artery: The RCA is the dominant vessel. The RCA is diffusely diseased with an 80% stenosis in the mid-distal portion. RPLV with significant diffuse disease with competitive filling seen in the distal portion. 6. Bypass graft angiography: A. Patent HASTINGS to LAD bypass graft, however, the proximal portion of HASTINGS has a 70-80% focal stenosis. B. Patent sequential SVG bypass graft to Ramus, OM, and RPLV. However, the proximal portion of the SVG bypass graft has an 80-90% focal stenosis; the mid portion of the graft has an 80% stenosis. 7. Left ventricle: A. End-diastolic pressure 14mmHg. B. LV gram deferred. C. No significant gradient across aortic valve on catheter pullback. 8. Iliofemoral angiography shows occlud
--- NOTE | 2023-02-28 14:16 | PM.PNCARD ---
Progress Note: A&P Assessment and Plan (1) NSTEMI (non-ST elevated myocardial infarction): Code(s): I21.4 - Non-ST elevation (NSTEMI) myocardial infarction Status: Acute Assessment and Plan: Initial troponin negative at 0.019. Second troponin elevated at 0.390. Third troponin is now up to 1.480. Her troponin peaked at 2. EKG with sinus rhythm, PACs, RBBB, no significant changes compared to prior EKG. At last admission on 02/20, her troponins were negative at that time. Patient has had several recurrent admissions now for chest pain evaluation. I personally reviewed the coronary angiogram images that were done at [facility] in 2019 prior to her bypass, along with her last peripheral angiography images. She has not had catheterization since her bypass. Given her history of significant complex coronary artery disease, her symptoms, and the degree of troponin elevation, recommend coronary angiography + bypass graft angiography to delineate her coronary and graft anatomy. Her presentation this time certainly could be demand ischemia from hypertensive urgency, but cannot rule out underlying acute coronary syndrome. I discussed recommendations for cardiac cath with the patient, including indication for the procedure, procedure details, risks vs benefits, along with alternative management options with the patient. I also discussed with the patient that she is at higher risk for complications, particularly vascular complications given her known severe PAD. I also discussed with the patient that if she did need coronary intervention done, unfortunately, we would not be able to do intervention here at [facility] as we cannot perform complex intervention here. I also discussed with the patient that because she is on Eliquis, we would need at least a 48 hour washout prior to cath to decrease her risk of bleeding. Therefore, the earliest that we would be able to do the cardiac cath would be 02/28. After my discussion with the patient, patient is agreeable to cardiac cath. I also discussed patient's case with her primary wheat combine driver, Dr. Evette Blackwood with [facility]. Will plan on doing cardiac cath here at [place]. If she does need coronary intervention, then will plan to do that as an outpatient with her [facility] team (would not need inpatient transfer for PCI as patient has remained chest pain free, feels well and otherwise remains stable). Cardiac cath on 02/28: 1. Severe [place] multivessel coronary artery disease 2. Patent HASTINGS to LAD bypass graft, however, the proximal portion of HASTINGS has a 70-80% focal stenosis. 3. Patent sequential SVG bypass graft to Ramus, OM, and RPLV. However, the proximal portion of the SVG bypass graft has an 80-90% focal stenosis; the mid portion of the graft has an 80% stenosis. 4. Left ventricular end-diastolic pressure is 14mmHg 5. Occluded right common femoral artery Continue with medical management of CAD. Will resume Eliquis 03/01. Has completed 48 hours of Heparin therapy for NSTEMI, therefore, will discontinue Heparin drip. To avoid triple therapy for now, will stop ASA and continue with Plavix. Continue beta keith and statin. (2) Coronary artery disease with hx of myocardial infarct w/o hx of CABG: Code(s): I25.10 - Atherosclerotic heart disease of [place] coronary artery without angina pectoris; I25.2 - Old myocardial infarction Status: Acute Assessment and Plan: Underwent 4 vessel CABG on 04/29/[address] Alexander. Graft anatomy: HASTINGS to LAD SVG to Ramus SVG to OM SVG to posterolateral branch of RCA Management of CAD as noted above (3) Peripheral vascular disease: Code(s): I73.9 - Peripheral vascular disease, unspecified Status: Acute Assessment and Plan: Has known severe PAD. Continue ASA, statin. (4) Hypertension: Qualifiers: Hypertension type: renovascular hypertension Qualified Code(s): I15.0 - Renovascular hypertension Code(s): I10 - E
[2023-02-28] MEDS: hydrALAZINE HCL 20 MG/ML VIAL 5 MG IV PUSH (14:23)
--- NOTE | 2023-02-28 15:50 | PM.IMPN ---
Progress Note: A&P Assessment and Plan (1) Chest pain: Qualifiers: Chest pain type: unspecified Qualified Code(s): R07.9 - Chest pain, unspecified Code(s): R07.9 - Chest pain, unspecified Status: Acute (2) Elevated troponin: Code(s): R77.8 - Other specified abnormalities of plasma proteins Status: Acute (3) End-stage renal disease on hemodialysis: Code(s): N18.6 - End stage renal disease; Z99.2 - Dependence on renal dialysis Status: Acute (4) Hypertension: Qualifiers: Hypertension type: renovascular hypertension Qualified Code(s): I15.0 - Renovascular hypertension Code(s): I10 - Essential (primary) hypertension Status: Chronic (5) Insulin dependent type 2 diabetes mellitus: Code(s): E11.9 - Type 2 diabetes mellitus without complications; Z79.4 - assisted (current) use of insulin Status: Chronic (6) Chronic anemia: Code(s): D64.9 - Anemia, unspecified Status: Acute (7) Chronic obstructive pulmonary disease: Code(s): J44.9 - Chronic obstructive pulmonary disease, unspecified Status: Acute (8) Peripheral vascular disease: Code(s): I73.9 - Peripheral vascular disease, unspecified Status: Acute Plan NSTEMI The patient presented to the emergency department for evaluation of chest pain shortness a breath as detailed in HPI. Labs, imaging, EKG, and all reports were personally reviewed. Her troponins are trending upwards. Dr. 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 She was on apixaban, postponed cardiac catheterization today Bridge heparin drip in the interim. Patient still has chest pain today associated with some shortness breath END-STAGE RENAL DISEASE AND UNCONTROLLED HYPERTENSION blood pressures are improving following dialysis. ?No acute electrolyte abnormalities noted on labs. CHRONIC ANEMIA Hemoglobin and hematocrit are stable. TYPE 2 DIABETES Initiate sliding scale insulin, Accu-Cheks, and hypoglycemic protocol. Her home medications will be reviewed and resumed as appropriate. Subjective Date/time seen: 02/28/23 15:50 Exam Narrative: General:??Chronically ill appearing female sitting up in bed. Weight: 81 kg. HEENT:??PERRL, EOMI. Sclera anicteric. Tacky mucous membranes. Neck:??Supple. Respiratory:?Respirations are nonlabored. Fine crackles at the bases. Cardiovascular:??Regular rate and rhythm with S1-S2.? Chest:?Hemodialysis catheter in the right chest. Gastrointestinal:??Abdomen is soft, nontender, and nondistended with positive bowel sounds. Skin:??Warm and dry. Extremities:??No cyanosis, clubbing, or edema. Status post left aaymn-sow-icyc amputation and right faswd-hds-xvem amputation. Neurological:??Alert.? Cranial nerves 2-12 are grossly intact. No gross focal deficits to casual conversation. Psychiatric:?Appropriate mood and affect. Objective Data Vital Signs Vital Signs: Vital Signs - 24 hr 02/27/23 16:00 02/27/23 16:00 02/27/23 16:00 Temperature 98.1 F Pulse Rate 68 67 Respiratory Rate 21 H Blood Pressure 151/48 H Pulse Oximetry 96 97 Oxygen Delivery Room Air Fraction of Inspired Oxygen 02/27/23 18:00 02/27/23 20:33 02/27/23 20:00 Temperature 97.0 F L Pulse Rate 78 64 63 Respiratory Rate 18 Blood Pressure 145/49 H Pulse Oximetry 98 Oxygen Delivery Fraction of Inspired Oxygen 02/27/23 20:00 02/27/23 22:00 02/27/23 23:53 Temperature 97.2 F L Pulse Rate 62 61 Respiratory Rate 18 Blood Pressure 172/50 H Pulse Oximetry 97 100 Oxygen Delivery Room Air Fraction of Inspired Oxygen 02/28/23 00:00 02/28/23 00:00 02/28/23 02:00 Temperature Pulse Rate 63 61 Respiratory Rate Blood Pressure Pu
[2023-02-28 16:13] LABS: Glucose Point of Care 137 mg/dl (65-105)
--- NOTE | 2023-02-28 16:47 | PC.NURSE ---
On 02/28/23, the student, Charles [facility]ASQUEZ [facility], provided care and completed [facility] documentation on this patient. I have reviewed the student's documentation and agree with the findings.
[2023-02-28] MEDS: SEVELAMER CARBONATE 800 MG TABLET PO (17:14)
[2023-02-28] MEDS: hydrALAZINE HCL 20 MG/ML VIAL 10 MG IV PUSH (17:44)
[2023-02-28 20:26] LABS: Glucose Point of Care 211 mg/dl (65-105)
[2023-02-28] MEDS: INSULIN ASPART (*BKC) 100 UNITS/ML SUB-Q (20:43)
[2023-02-28] MEDS: PRAVASTATIN SODIUM 20 MG TABLET 40 MG PO (20:43)
[2023-02-28] MEDS: INSULIN GLARGINE (*BKC) 100 UNITS/ML 15 UNITS SUB-Q (20:43)
[2023-03-01] VITALS (32 sets, daily range): BP systolic 102–197; BP diastolic 36–97; PULSE 60–83; RESP 16–20; TEMP 36.2–37; O2SAT 97–98
[2023-03-01 04:17] LABS: Hematocrit 30.8 % (37.0-47.0); Mean Corpuscular HGB Conc 32.5 g/dl (32-36); Mean Corpuscular Hemoglobin 32.1 pg (26-34); Mean Corpuscular Volume 98.7 fl (80-100); Mean Platelet Volume 12.5 fl (7.4-10.4); Platelet Count Result 103 k/mm3 (150-375); Red Blood Count 3.12 M/mm3 (4.2-5.4); Red Cell Distribution Width 13.6 % (11.5-14.5); White Blood Count 5.1 K/mm3 (4.5-10.0)
[2023-03-01 04:27] LABS: Albumin Level 3.1 g/dL (3.5-5.1); Anion Gap 7 mmol/L (8-16); Blood Urea Nitrogen 35 mg/dL (7-17); Calcium 7.6 mg/dL (8.4-10.2); Carbon Dioxide 26 mmol/L (22-30); Chloride 100 mmol/L (98-107); Estimated Glomerular Filt Rate 6; Glucose 98 mg/dL (65-110); Phosphorus 4.8 mg/dL (2.5-4.5); Potassium 4.9 mmol/L (3.4-5.0); Sodium 133 mmol/L (137-145)
[2023-03-01 07:46] LABS: Glucose Point of Care 103 mg/dl (65-105)
[2023-03-01] MEDS: carvediloL 12.5 MG TABLET PO ×2 (08:54→17:54)
[2023-03-01] MEDS: PANTOPRAZOLE 40 MG TABLET PO (08:54)
[2023-03-01] MEDS: LOSARTAN POTASSIUM 100 MG TABLET PO (08:54)
[2023-03-01] MEDS: SEVELAMER CARBONATE 800 MG TABLET PO (08:54)
[2023-03-01] MEDS: ISOSORBIDE MONONITRATE 30 MG TAB.ER.24H PO (08:54)
[2023-03-01] MEDS: CLOPIDOGREL BISULFATE 75 MG TABLET PO (08:54)
[2023-03-01] MEDS: NIFEdipine 30 MG TAB.ER.24 PO (08:57)
--- NOTE | 2023-03-01 09:47 | PM.IMPN ---
Progress Note: A&P Assessment and Plan (1) Chest pain: Qualifiers: Chest pain type: unspecified Qualified Code(s): R07.9 - Chest pain, unspecified Code(s): R07.9 - Chest pain, unspecified Status: Acute (2) Elevated troponin: Code(s): R77.8 - Other specified abnormalities of plasma proteins Status: Acute (3) End-stage renal disease on hemodialysis: Code(s): N18.6 - End stage renal disease; Z99.2 - Dependence on renal dialysis Status: Acute (4) Hypertension: Qualifiers: Hypertension type: renovascular hypertension Qualified Code(s): I15.0 - Renovascular hypertension Code(s): I10 - Essential (primary) hypertension Status: Chronic (5) Insulin dependent type 2 diabetes mellitus: Code(s): E11.9 - Type 2 diabetes mellitus without complications; Z79.4 - assisted (current) use of insulin Status: Chronic (6) Chronic anemia: Code(s): D64.9 - Anemia, unspecified Status: Acute (7) Chronic obstructive pulmonary disease: Code(s): J44.9 - Chronic obstructive pulmonary disease, unspecified Status: Acute (8) Peripheral vascular disease: Code(s): I73.9 - Peripheral vascular disease, unspecified Status: Acute Plan NSTEMI The patient presented to the emergency department for evaluation of chest pain shortness a breath as detailed in HPI. Labs, imaging, EKG, and all reports were personally reviewed. Her troponins are trending upwards. Dr. 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 She was on apixaban, bridge heparin drip in the interim. underwent cardiac catheterization 02/28 1. Severe [place] multivessel coronary artery disease 2. Patent HASTINGS to LAD bypass graft, however, the proximal portion of HASTINGS has a 70-80% focal stenosis. 3. Patent sequential SVG bypass graft to Ramus, OM, and RPLV. However, the proximal portion of the SVG bypass graft has an 80-90% focal stenosis; the mid portion of the graft has an 80% stenosis. 4. Left ventricular end-diastolic pressure is 14mmHg 5. Occluded right common femoral artery Plan for outpatient PCI with her primary cardiology team at [facility] Continue with medical management of CAD.? Eliquis resumed today. Continue Plavix, beta keith, and statin.? ASA discontinued to avoid triple therapy. Patient has no chest pain today on HD END-STAGE RENAL DISEASE AND UNCONTROLLED HYPERTENSION blood pressures are improving following dialysis. ?No acute electrolyte abnormalities noted on labs. CHRONIC ANEMIA Hemoglobin and hematocrit are stable. TYPE 2 DIABETES Initiate sliding scale insulin, Accu-Cheks, and hypoglycemic protocol. Her home medications will be reviewed and resumed as appropriate. Subjective Date/time seen: 03/01/23 09:47 Interval history: I saw and examined patient when patient was on dialysis. Patient feels tired, denies chest pain, shortness of breath. Patient is afebrile,, labs reviewed Exam Narrative: General:??Chronically ill appearing female sitting up in bed. Weight: 81 kg. HEENT:??PERRL, EOMI. Sclera anicteric. Tacky mucous membranes. Neck:??Supple. Respiratory:?Respirations are nonlabored. Fine crackles at the bases. Cardiovascular:??Regular rate and rhythm with S1-S2.? Chest:?Hemodialysis catheter in the right chest. Gastrointestinal:??Abdomen is soft, nontender, and nondistended with positive bowel sounds. Skin:??Warm and dry. Extremities:??No cyanosis, clubbing, or edema. Status post left lntup-cqt-gqbl amputation and right qxali-wcj-hhfj amputation. Neurological:??Alert.? Cranial nerves 2-12 are grossly intact. No gross focal deficits to casual conversation. Psychiatric:?Appropriate mood and affect. Objective Data Vital Signs Vital Signs: Vital Signs - 24 hr
--- NOTE | 2023-03-01 10:00 | PM.PNNEP ---
Progress Note: A&P Assessment and Plan (1) End stage renal disease: Status: Chronic Assessment and Plan: HD today and tomorrow continue T/T/S dialysis schedule while hospitalized follow electrolytes, volume status, and clearance (2) Chest pain: Qualifiers: Chest pain type: unspecified Qualified Code(s): R07.9 - Chest pain, unspecified Code(s): R07.9 - Chest pain, unspecified Status: Acute Assessment and Plan: elevated troponins noted s/p cardiac catheterization with findings noted continue medical management Cardiology following . (3) Shortness of breath: Code(s): R06.02 - Shortness of breath Status: Acute Assessment and Plan: likely related to several issues: mild pulmonary edema chest pain underlying history of COPD admission CXR noted push fluid removal/ultrafiltration as tolerated (although LVEDP on cath reasonable) (4) Hypertension: Status: Chronic Assessment and Plan: can be quite erratic at times resumed on home medications; adjust/titrate as needed follow trend of hemodynamics (5) Anemia: Status: Chronic Assessment and Plan: due to ESRD at goal Epogen with HD when Hgb < 10 follow trend of H/H (6) Insulin dependent type 2 diabetes mellitus: Status: Chronic Assessment and Plan: follow accuchecks glycemic control per hospitalists Will continue to follow. Subjective Date/time seen: 03/01/23 10:00 Interval history: Follow-up for end stage renal disease on hemodialysis. Tolerating hemodialysis treatment at the time of my visit (seen on HD at 9:50AM); unable to see yesterday due to cardiac catheterization which she tolerated reasonably well; no further chest pain or acute complaints of shortness of breath; no apparent distress voiced at this time. Exam Narrative: General: elderly female in NAD Heart: normal S1 and S2; no rub Lungs: clear anteriorly; decreased at bases Abdomen: soft, nontender, nondistended, positive bowel sounds Extremities: no cyanosis or clubbing; no edema; s/p left BKA and right AKA Skin: warm and intact Objective Data Vital Signs Vital Signs: Vital Signs Temp Pulse Resp BP Pulse Ox O2 Del Method 03/01/23 09:09 97.7 F 65 16 160/65 H 03/01/23 10:00 67 03/01/23 08:00 69 03/01/23 09:15 Room Air 03/01/23 08:54 66 03/01/23 07:28 97.5 F L 66 18 169/38 H 98 03/01/23 06:00 62 03/01/23 04:00 Room Air 03/01/23 04:00 60 03/01/23 04:00 97.1 F L 60 20 170/44 H 98 03/01/23 00:00 Room Air 03/01/23 02:00 61 03/01/23 00:00 60 02/28/23 23:56 98.2 F 63 16 179/89 H 97 02/28/23 22:00 64 02/28/23 20:00 Room Air 02/28/23 20:00 63 02/28/23 19:39 97.3 F L 67 20 162/44 H 99 02/28/23 18:00 66 02/28/23 16:00 58 L 02/28/23 16:00 Room Air 02/28/23 16:38 96.5 F L 55 L 12 187/58 H 100 02/28/23 15:38 97.8 F 56 L 16 181/51 H 100 02/28/23 15:30 62 16 177/68 H 98 Room Air 02/28/23 15:00 61 14 183/56 H 98 Room Air 02/28/23 14:45 65 12 160/68 H 96 Room Air 02/28/23 15:15 65 16 186/62 H 100 Room Air 02/28/23 14:20 63 13 170/50 H 95 Room Air 02/28/23 14:10 62 13 167/50 H 95 Room Air 02/28/23 14:30 62 14 168/51 H 96 Room Air 02/28/23 14:25 61 14 164/79 H 96 Room Air 02/28/23 14:15 62 14 155/55 H 93 Room Air 02/28/23 14:05 63 15 150/61 H 96 Room Air Intake/Output Intake/Output: Intake & Output 02/26/23 02/27/23 02/28/23 03/01/23 23:59 23:59 23:59 23:59 Intake Total 340 1170 360 200 Output Total 2500 100 150 Balance -2160 1170 260 50 Meds/Results Medications: Active Medications Generic Name Dose Route Start Last Admin Trade Name Freq PRN Reason Stop Dose Admin Acetaminophen 650 mg 02/26/23 14:33 Ac
--- NOTE | 2023-03-01 10:00 | P.PNNP_ITS ---
Progress Note: A&P Assessment and Plan (1) End stage renal disease: Status: Chronic Assessment and Plan: * HD today and tomorrow * continue T/T/S dialysis schedule while hospitalized * follow electrolytes, volume status, and clearance (2) Chest pain: Qualifiers: Chest pain type: unspecified Qualified Code(s): R07.9 - Chest pain, unspecified Code(s): R07.9 - Chest pain, unspecified Status: Acute Assessment and Plan: * elevated troponins noted * s/p cardiac catheterization with findings noted * continue medical management * Cardiology following . (3) Shortness of breath: Code(s): R06.02 - Shortness of breath Status: Acute Assessment and Plan: * likely related to several issues: * mild pulmonary edema * chest pain * underlying history of COPD * admission CXR noted * push fluid removal/ultrafiltration as tolerated (although LVEDP on cath reasonable) (4) Hypertension: Status: Chronic Assessment and Plan: * can be quite erratic at times * resumed on home medications; adjust/titrate as needed * follow trend of hemodynamics (5) Anemia: Status: Chronic Assessment and Plan: * due to ESRD * at goal * Epogen with HD when Hgb < 10 * follow trend of H/H (6) Insulin dependent type 2 diabetes mellitus: Status: Chronic Assessment and Plan: * follow accuchecks * glycemic control per hospitalists Will continue to follow. Subjective Date/time seen: 03/01/23 10:00 Interval history: Follow-up for end stage renal disease on hemodialysis. Tolerating hemodialysis treatment at the time of my visit (seen on HD at 9:50AM); unable to see yesterday due to cardiac catheterization which she kraig ated reasonably well; no further chest pain or acute complaints of shortness of breath; no apparent distress voiced at this time. Exam Narrative: General: elderly female in NAD Heart: normal S1 and S2; no rub Lungs: clear anteriorly; decreased at bases Abdomen: soft, nontender, nondistended, positive bowel sounds Extremities: no cyanosis or clubbing; no edema; s/p left BKA and right AKA Skin: warm and intact Objective Data Vital Signs Vital Signs: Vital Signs Temp Pulse Resp BP Pulse Ox O2 Del Method 03/01/23 09:09 97.7 F 65 16 160/65 H 03/01/23 10:00 67 03/01/23 08:00 69 03/01/23 09:15 Room Air 03/01/23 08:54 66 03/01/23 07:28 97.5 F L 66 18 169/38 H 98 03/01/23 06:00 62 03/01/23 04:00 Room Air 03/01/23 04:00 60 03/01/23 04:00 97.1 F L 60 20 170/44 H 98 03/01/23 00:00 Room Air 03/01/23 02:00 61 03/01/23 00:00 60 02/28/23 23:56 98.2 F 63 16 179/89 H 97 02/28/23 22:00 64 02/28/23 20:00 Room Air 02/28/23 20:00 63 02/28/23 19:39 97.3 F L 67 20 162/44 H 99 02/28/23 18:00 66 02/28/23 16:00 58 L 02/28/23 16:00 Room Air 02/28/23 16:38 96.5 F L 55 L 12 187/58 H 100 02/28/23 15:38 97.8 F 56 L 16 181/51 H 100 02/28/23 15:30 62 16 177/68 H 98 Room Air 02/28/23 15:00 61 14 183/56 H 98 Room Air 02/28/23 14:45 65
[2023-03-01 11:24] LABS: Glucose Point of Care 190 mg/dl (65-105)
[2023-03-01] MEDS: EPOETIN ALFA-EPBX 10,000 UNITS/ML VIAL 10000 UNITS IV PUSH (11:28)
--- NOTE | 2023-03-01 13:01 | PM.PNCARD ---
Progress Note: A&P Assessment and Plan (1) NSTEMI (non-ST elevated myocardial infarction): Code(s): I21.4 - Non-ST elevation (NSTEMI) myocardial infarction Status: Acute Assessment and Plan: Initial troponin negative at 0.019. Second troponin elevated at 0.390. Third troponin is now up to 1.480. Her troponin peaked at 2. EKG with sinus rhythm, PACs, RBBB, no significant changes compared to prior EKG. At last admission on 02/20, her troponins were negative at that time. Patient has had several recurrent admissions now for chest pain evaluation. I personally reviewed the coronary angiogram images that were done at [facility] in 2019 prior to her bypass, along with her last peripheral angiography images. She has not had catheterization since her bypass. Given her history of significant complex coronary artery disease, her symptoms, and the degree of troponin elevation, recommend coronary angiography + bypass graft angiography to delineate her coronary and graft anatomy. Her presentation this time certainly could be demand ischemia from hypertensive urgency, but cannot rule out underlying acute coronary syndrome. Cardiac cath on 02/28: 1. Severe [place] multivessel coronary artery disease 2. Patent HASTINGS to LAD bypass graft, however, the proximal portion of HASTINGS has a 70-80% focal stenosis. 3. Patent sequential SVG bypass graft to Ramus, OM, and RPLV. However, the proximal portion of the SVG bypass graft has an 80-90% focal stenosis; the mid portion of the graft has an 80% stenosis. 4. Left ventricular end-diastolic pressure is 14mmHg 5. Occluded right common femoral artery Plan for outpatient PCI with her primary cardiology team at [facility] Continue with medical management of CAD. Eliquis resumed today. Continue Plavix, beta keith, and statin. ASA discontinued to avoid triple therapy. (2) Coronary artery disease with hx of myocardial infarct w/o hx of CABG: Code(s): I25.10 - Atherosclerotic heart disease of [place] coronary artery without angina pectoris; I25.2 - Old myocardial infarction Status: Acute Assessment and Plan: Underwent 4 vessel CABG on 04/29/[address] Alexander. Graft anatomy: HASTINGS to LAD SVG to Ramus SVG to OM SVG to posterolateral branch of RCA Management of CAD as noted above (3) Peripheral vascular disease: Code(s): I73.9 - Peripheral vascular disease, unspecified Status: Acute Assessment and Plan: Has known severe PAD. Continue ASA, statin. (4) Hypertension: Qualifiers: Hypertension type: renovascular hypertension Qualified Code(s): I15.0 - Renovascular hypertension Code(s): I10 - Essential (primary) hypertension Status: Chronic Assessment and Plan: Presented with SBP in the 190s, now improved. Continue home Losartan 100mg. Continue home Nifedipine and Coreg. Can uptitrate dose of Nifedipine and Coreg as needed for additional blood pressure control. (5) End-stage renal disease on hemodialysis: Code(s): N18.6 - End stage renal disease; Z99.2 - Dependence on renal dialysis Status: Acute Assessment and Plan: Nephrology has been consulted. 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 (7) Paroxysmal atrial fibrillation: Code(s): I48.0 - Paroxysmal atrial fibrillation Status: Acute Assessment and Plan: In sinus rhythm. Continue beta keith. Eliquis resumed Subjective Date/time seen: 03/01/23 13:01 Interval history: Reason for visit: NSTEMI HPI: We are consulted for chest pain. This is a 72 year old female with coronary artery disease s/[place] CAB[place] [address] Alexander, peripheral arterial disease s/p prior intervention, history of bilateral lower extremity amputation, paroxysmal atrial fibri
[2023-03-01 16:03] LABS: Glucose Point of Care 199 mg/dl (65-105)
[2023-03-01] MEDS: APIXABAN 5 MG TABLET PO (17:54)
[2023-03-01 20:19] LABS: Glucose Point of Care 210 mg/dl (65-105)
[2023-03-01] MEDS: INSULIN ASPART (*BKC) 100 UNITS/ML SUB-Q (20:45)
[2023-03-01] MEDS: INSULIN GLARGINE (*BKC) 100 UNITS/ML 15 UNITS SUB-Q (20:45)
[2023-03-01] MEDS: PRAVASTATIN SODIUM 20 MG TABLET 40 MG PO (20:45)
[2023-03-02] VITALS (20 sets, daily range): BP systolic 140–203; BP diastolic 48–88; PULSE 64–83; RESP 16–19; TEMP 35.8–37; O2SAT 95–100
[2023-03-02 08:01] LABS: Glucose Point of Care 109 mg/dl (65-105)
--- NOTE | 2023-03-02 10:30 | PM.PNNEP ---
Progress Note: A&P Assessment and Plan (1) End stage renal disease: Assessment and Plan: short HD treatment today (since had HD yesterday) continue T/T/S dialysis schedule while hospitalized follow electrolytes, volume status, and clearance (2) Chest pain: Qualifiers: Chest pain type: unspecified Qualified Code(s): R07.9 - Chest pain, unspecified Code(s): R07.9 - Chest pain, unspecified Status: Acute Assessment and Plan: elevated troponins noted s/p cardiac catheterization with findings noted continue medical management Cardiology following . (3) Shortness of breath: Code(s): R06.02 - Shortness of breath Status: Acute Assessment and Plan: likely related to several issues: mild pulmonary edema chest pain underlying history of COPD admission CXR noted push fluid removal/ultrafiltration as tolerated (although LVEDP on cath reasonable) (4) Hypertension: Assessment and Plan: can be quite erratic at times resumed on home medications; adjust/titrate as needed follow trend of hemodynamics (5) Anemia: Assessment and Plan: due to ESRD at goal Epogen with HD when Hgb < 10 follow trend of H/H (6) Insulin dependent type 2 diabetes mellitus: Assessment and Plan: follow accuchecks glycemic control per hospitalists Not opposed to discharge from renal perspective if otherwise medically stable. Will continue to follow. Subjective Date/time seen: 03/02/23 10:30 Interval history: Follow-up for end stage renal disease on hemodialysis. Tolerating hemodialysis treatment at the time of my visit (seen on HD at 10:20AM); tolerated dialysis yesterday as well (unable to receive treatment on due to emergency dialysis treatments at another hospital); no apparent distress noted; no issues/events overnight or earlier this AM. Exam Narrative: General: elderly female in NAD Heart: normal S1 and S2; no rub Lungs: clear anteriorly; decreased at bases Abdomen: soft, nontender, nondistended, positive bowel sounds Extremities: no cyanosis or clubbing; no edema; s/p left BKA and right AKA Skin: no rash Objective Data Vital Signs Vital Signs: Vital Signs Temp Pulse Resp BP Pulse Ox O2 Del Method 03/02/23 10:20 69 195/83 H 03/02/23 10:00 72 140/62 03/02/23 09:40 64 189/83 H 03/02/23 09:30 68 198/74 H 03/02/23 09:20 96.4 F L 68 17 161/71 H 100 03/02/23 10:00 70 03/02/23 08:00 70 03/02/23 09:12 95 Room Air 03/02/23 07:43 97.4 F L 71 19 181/60 H 100 03/02/23 06:00 64 03/02/23 04:28 97.7 F 71 16 141/65 H 98 03/02/23 04:00 Room Air 03/02/23 04:00 69 03/02/23 01:50 65 03/01/23 23:54 Room Air 03/01/23 23:53 72 03/01/23 23:38 97.8 F 67 18 141/97 H 97 03/01/23 22:00 64 03/01/23 20:00 Room Air 03/01/23 20:00 65 03/01/23 20:11 97.8 F 69 18 176/60 H 97 03/01/23 18:00 74 03/01/23 17:54 66 03/01/23 16:00 Room Air 03/01/23 16:00 66 03/01/23 15:38 97.7 F 66 18 152/43 H 97 Intake/Output Intake/Output: Intake & Output 02/27/23 02/28/23 03/01/23 03/02/23 23:59 23:59 23:59 23:59 Intake Total 4708 938 1361 340 Output Total 100 2033 550 Balance 1014 264 -674 -245 Meds/Results Medications: Active Medications Generic Name Dose Route Start Last Admin Trade Name Freq PRN Reason Stop Dose Admin Acetaminophen 650 mg 02/26/23 14:33 Acetaminophen 325 Mg Tablet PO Q6H PRN Mild Pain (1-3) or Fever Apixaban 5 mg 02/26/23 17:00 03/02/23 12:48 Apixaban 5 Mg Tablet PO 5 mg BID KEMI Administration Calcium Carbonate 400 mg 02/26/23 14:34 Calcium Carbonate (Tums) 500 Mg (200 Mg Elemental) PO DAILY PRN Indigestion Carvedilol 12.5 mg 02/26/23 17:00 03/02/23 12:48 Carvedilol 1
--- NOTE | 2023-03-02 10:30 | P.PNNP_ITS ---
Progress Note: A&P Assessment and Plan (1) End stage renal disease: Assessment and Plan: * short HD treatment today (since had HD yesterday) * continue T/T/S dialysis schedule while hospitalized * follow electrolytes, volume status, and clearance (2) Chest pain: Qualifiers: Chest pain type: unspecified Qualified Code(s): R07.9 - Chest pain, unspecified Code(s): R07.9 - Chest pain, unspecified Status: Acute Assessment and Plan: * elevated troponins noted * s/p cardiac catheterization with findings noted * continue medical management * Cardiology following . (3) Shortness of breath: Code(s): R06.02 - Shortness of breath Status: Acute Assessment and Plan: * likely related to several issues: * mild pulmonary edema * chest pain * underlying history of COPD * admission CXR noted * push fluid removal/ultrafiltration as tolerated (although LVEDP on cath reasonable) (4) Hypertension: Assessment and Plan: * can be quite erratic at times * resumed on home medications; adjust/titrate as needed * follow trend of hemodynamics (5) Anemia: Assessment and Plan: * due to ESRD * at goal * Epogen with HD when Hgb < 10 * follow trend of H/H (6) Insulin dependent type 2 diabetes mellitus: Assessment and Plan: * follow accuchecks * glycemic control per hospitalists Not opposed to discharge from renal perspective if otherwise medically stable. Will continue to follow. Subjective Date/time seen: 03/02/23 10:30 Interval history: Follow-up for end stage renal disease on hemodialysis. Tolerating hemodialysis treatment at the time of my visit (seen on HD at 10: 20AM); tolerated dialysis yesterday as well (unable to receive treatment on due to emergency dialysis treatments at another hospital); no apparent distress noted; no issues/events overnight or earlier this AM. Exam Narrative: General: elderly female in NAD Heart: normal S1 and S2; no rub Lungs: clear anteriorly; decreased at bases Abdomen: soft, nontender, nondistended, positive bowel sounds Extremities: no cyanosis or clubbing; no edema; s/p left BKA and right AKA Skin: no rash Objective Data Vital Signs Vital Signs: Vital Signs Temp Pulse Resp BP Pulse Ox O2 Del Method 03/02/23 10:20 69 195/83 H 03/02/23 10:00 72 140/62 03/02/23 09:40 64 189/83 H 03/02/23 09:30 68 198/74 H 03/02/23 09:20 96.4 F L 68 17 161/71 H 100 03/02/23 10:00 70 03/02/23 08:00 70 03/02/23 09:12 95 Room Air 03/02/23 07:43 97.4 F L 71 19 181/60 H 100 03/02/23 06:00 64 03/02/23 04:28 97.7 F 71 16 141/65 H 98 03/02/23 04:00 Room Air 03/02/23 04:00 69 03/02/23 01:50 65 03/01/23 23:54 Room Air 03/01/23 23:53 72 03/01/23 23:38 97.8 F 67 18 141/97 H 97 03/01/23 22:00 64 03/01/23 20:00 Room Air 03/01/23 20:00 65 03/01/23 20:11 97.8 F 69 18 176/60 H 97 03/01/23 18:00 74 03/01/23 17:54 66 03/01/23 16:00 Room Air 03/01/23 16:00 66 03/01/23 15:38 97.7 F 66 18 152/43 H 97
--- NOTE | 2023-03-02 11:04 | PM.IMPN ---
Progress Note: A&P Assessment and Plan (1) Chest pain: Qualifiers: Chest pain type: unspecified Qualified Code(s): R07.9 - Chest pain, unspecified Code(s): R07.9 - Chest pain, unspecified Status: Acute (2) Elevated troponin: Code(s): R77.8 - Other specified abnormalities of plasma proteins Status: Acute (3) End-stage renal disease on hemodialysis: Code(s): N18.6 - End stage renal disease; Z99.2 - Dependence on renal dialysis Status: Acute (4) Hypertension: Qualifiers: Hypertension type: renovascular hypertension Qualified Code(s): I15.0 - Renovascular hypertension Code(s): I10 - Essential (primary) hypertension Status: Chronic (5) Insulin dependent type 2 diabetes mellitus: Code(s): E11.9 - Type 2 diabetes mellitus without complications; Z79.4 - intermediate (current) use of insulin Status: Chronic (6) Chronic anemia: Code(s): D64.9 - Anemia, unspecified Status: Acute (7) Chronic obstructive pulmonary disease: Code(s): J44.9 - Chronic obstructive pulmonary disease, unspecified Status: Acute (8) Peripheral vascular disease: Code(s): I73.9 - Peripheral vascular disease, unspecified Status: Acute Plan NSTEMI The patient presented to the emergency department for evaluation of chest pain shortness a breath as detailed in HPI. Labs, imaging, EKG, and all reports were personally reviewed. Her troponins are trending upwards. Dr. Domínguez spoke with the patient's overnight cashier and they recommend going ahead with cardiac catheterization here at [facility] however she is a high risk candidate for PCI and will need to be transferred if intervention was deemed necessary. She was on apixaban, bridge heparin drip in the interim. underwent cardiac catheterization 02/28 1. Severe [place] multivessel coronary artery disease 2. Patent HASTINGS to LAD bypass graft, however, the proximal portion of HASTINGS has a 70-80% focal stenosis. 3. Patent sequential SVG bypass graft to Ramus, OM, and RPLV. However, the proximal portion of the SVG bypass graft has an 80-90% focal stenosis; the mid portion of the graft has an 80% stenosis. 4. Left ventricular end-diastolic pressure is 14mmHg 5. Occluded right common femoral artery Plan for outpatient PCI with her primary cardiology team at [facility] Continue with medical management of CAD.? Eliquis resumed today. Continue Plavix, beta keith, and statin.? ASA discontinued to avoid triple therapy. Patient has no chest pain today on HD END-STAGE RENAL DISEASE AND UNCONTROLLED HYPERTENSION blood pressures are improving following dialysis. ?No acute electrolyte abnormalities noted on labs. CHRONIC ANEMIA Hemoglobin and hematocrit are stable. TYPE 2 DIABETES Initiate sliding scale insulin, Accu-Cheks, and hypoglycemic protocol. Her home medications will be reviewed and resumed as appropriate. Subjective Date/time seen: 03/02/23 11:04 Interval history: I saw and examined patient when patient was on dialysis. Patient feels better, denies chest pain, shortness of breath. Patient is afebrile,, labs reviewed Exam Narrative: General:??Chronically ill appearing female sitting up in bed. Weight: 81 kg. HEENT:??PERRL, EOMI. Sclera anicteric. Tacky mucous membranes. Neck:??Supple. Respiratory:?Respirations are nonlabored. Fine crackles at the bases. Cardiovascular:??Regular rate and rhythm with S1-S2.? Chest:?Hemodialysis catheter in the right chest. Gastrointestinal:??Abdomen is soft, nontender, and nondistended with positive bowel sounds. Skin:??Warm and dry. Extremities:??No cyanosis, clubbing, or edema. Status post left xavll-ppb-[id number] amputation and right hracs-bxb-[id number] amputation. Neurological:??Alert.? Cranial nerves 2-12 are grossly intact. No gross focal deficits to casual conversation. Psychiatric:?Appropriate mood and affect. Objective Data Vital Signs Vital Signs: Vital Signs - 24 hr
[2023-03-02 11:42] LABS: Basophils Percent Auto 0.5 % (0.2-1.2); Eosinophils Absolute Auto 0.2 K/mm3 (0-0.3); Eosinophils Percent Auto 2.3 % (0-4.4); Hematocrit 34.7 % (37.0-47.0); Hemoglobin 10.9 g/dL (12.0-15.0); Immature Granulocyte Absolute 0.08 K/mm3 (0.00-0.031); Lymphocytes Absolute Auto 1.39 K/mm3 (0.9-3.2); Lymphocytes Percent Auto 17.8 % (18.3-44.2); Mean Corpuscular HGB Conc 31.4 g/dl (32-36); Mean Corpuscular Hemoglobin 31.1 pg (26-34); Mean Corpuscular Volume 98.9 fl (80-100); Mean Platelet Volume 12.6 fl (7.4-10.4); Monocytes Absolute Auto 0.6 K/mm3 (0.1-0.6); Neutrophils Absolute Auto 5.6 K/mm3 (1.3-6.7); Neutrophils Percent Auto 71.4 % (45.5-73.1); Platelet Count Result 116 k/mm3 (150-375); Red Blood Count 3.51 M/mm3 (4.2-5.4); Red Cell Distribution Width 13.5 % (11.5-14.5); White Blood Count 7.8 K/mm3 (4.5-10.0)
[2023-03-02 12:09] LABS: Anion Gap 6 mmol/L (8-16); Blood Urea Nitrogen 8 mg/dL (7-17); Calcium 8.8 mg/dL (8.4-10.2); Carbon Dioxide 28 mmol/L (22-30); Chloride 97 mmol/L (98-107); Estimated Glomerular Filt Rate 23; Glucose 125 mg/dL (65-110); Potassium 3.7 mmol/L (3.4-5.0); Sodium 131 mmol/L (137-145)
[2023-03-02] MEDS: PANTOPRAZOLE 40 MG TABLET PO (12:48)
[2023-03-02] MEDS: ISOSORBIDE MONONITRATE 30 MG TAB.ER.24H PO (12:48)
[2023-03-02] MEDS: CLOPIDOGREL BISULFATE 75 MG TABLET PO (12:48)
[2023-03-02] MEDS: LOSARTAN POTASSIUM 100 MG TABLET PO (12:48)
[2023-03-02] MEDS: carvediloL 12.5 MG TABLET PO (12:48)
[2023-03-02] MEDS: APIXABAN 5 MG TABLET PO (12:48)
[2023-03-02] MEDS: SEVELAMER CARBONATE 800 MG TABLET PO (12:48)
--- NOTE | 2023-03-02 13:05 | PM.DS ---
DS: Admitting Diagnosis Discharge Date Today Admitting Diagnosis (1) Chest pain: ?Qualifiers: ?Chest pain type:?unspecified? Qualified Code(s):?R07.9 - Chest pain, unspecified ?Code(s): R07.9 - Chest pain, unspecified ?Status:?Acute (2) Elevated troponin: ?Code(s): R77.8 - Other specified abnormalities of plasma proteins ?Status:?Acute (3) End-stage renal disease on hemodialysis: ?Code(s): N18.6 - End stage renal disease; Z99.2 - Dependence on renal dialysis ?Status:?Acute (4) Hypertension: ?Qualifiers: ?Hypertension type:?renovascular hypertension? Qualified Code(s):?I15.0 - Renovascular hypertension ?Code(s): I10 - Essential (primary) hypertension ?Status:?Chronic (5) Insulin dependent type 2 diabetes mellitus: ?Code(s): E11.9 - Type 2 diabetes mellitus without complications; Z79.4 - continuous churn buttermaker (current) use of insulin ?Status:?Chronic (6) Chronic anemia: ?Code(s): D64.9 - Anemia, unspecified ?Status:?Acute (7) Chronic obstructive pulmonary disease: ?Code(s): J44.9 - Chronic obstructive pulmonary disease, unspecified ?Status:?Acute (8) Peripheral vascular disease: ?Code(s): I73.9 - Peripheral vascular disease, unspecified ?Status:?Acute DS: Discharge Diagnosis Discharge Diagnosis (1) Chest pain: Qualifiers: Chest pain type: unspecified Qualified Code(s): R07.9 - Chest pain, unspecified Code(s): R07.9 - Chest pain, unspecified Status: Acute (2) Elevated troponin: Code(s): R77.8 - Other specified abnormalities of plasma proteins Status: Acute (3) End-stage renal disease on hemodialysis: Code(s): N18.6 - End stage renal disease; Z99.2 - Dependence on renal dialysis Status: Acute (4) Hypertension: Qualifiers: Hypertension type: renovascular hypertension Qualified Code(s): I15.0 - Renovascular hypertension Code(s): I10 - Essential (primary) hypertension Status: Chronic (5) Insulin dependent type 2 diabetes mellitus: Code(s): E11.9 - Type 2 diabetes mellitus without complications; Z79.4 - long-term (current) use of insulin Status: Chronic (6) Chronic anemia: Code(s): D64.9 - Anemia, unspecified Status: Acute (7) Chronic obstructive pulmonary disease: Code(s): J44.9 - Chronic obstructive pulmonary disease, unspecified Status: Acute (8) Peripheral vascular disease: Code(s): I73.9 - Peripheral vascular disease, unspecified Status: Acute DS: Summary Hospital Course Hospital Course: Per H&P, this is a 72-year-old female with coronary artery disease with history of CABG peripheral vascular disease status post bilateral lower extremity amputations, insulin-dependent diabetes, end-stage renal disease on hemodialysis, hypertension, and chronic anemia who presented to the emergency department for evaluation of chest pain. She is well known to the hospitalist service from frequent admissions over the years. She has been in and out of the hospital recently with chest pain and was just discharged home 5 days ago. She was seen by Dr. Calzada at that time who increased her carvedilol dose to 12.5 mg p.o. b.i.d.; her troponins were negative throughout the stay. He did recommend a Lexiscan perfusion study if she developed chest pain again. This morning she got up to use the restroom and she started to feel short of breath ?like I was suffocating? with diffuse anterior chest tightness. Emergency services were summoned and on EMS arrival her spO2 was 83%. She was placed on a non-rebreather mask and was given aspirin and nitroglycerin en route to the hospital. In the ED: Blood pressures have been running between the 150s to 190s systolic. CMP and CBC are pretty consistent with her baseline without electrolyte abnormalities. Initial troponin was 0.019 however her 3 are troponin did jump to 0.390. EKG showed sinus
== END 2023-03-02 15:45 | disposition home or self-care (01) | DRG 280 ==
LOC: ANHED 07:54 → ANHIMU 08:24
PROVIDERS: Internal Medicine; Internal Medicine Cardiovascular Disease; Internal Medicine Nephrology; Physician Assistant; Admitting Provider Internal Medicine; Emergency Provider Emergency Medicine; PCP Internal Medicine; Visit Provider Hospitalist
PROC: 4A023N7 Measurement of Cardiac Sampling and Pressure, Left Heart, Percutaneous Approach (ICD-10-PCS; CPT 93459; principal; 2023-02-28 10:30)
DX: I21.4 Non-ST elevation (NSTEMI) myocardial infarction (principal); N18.6 End stage renal disease; I12.0 Hypertensive chronic kidney disease with stage 5 chronic kidney disease or end stage renal disease; I25.810 Atherosclerosis of coronary artery bypass graft(s) without angina pectoris; I25.10 Atherosclerotic heart disease of native coronary artery without angina pectoris; R07.9 Chest pain, unspecified; E11.22 Type 2 diabetes mellitus with diabetic chronic kidney disease; R77.8 Other specified abnormalities of plasma proteins; I73.9 Peripheral vascular disease, unspecified; J44.9 Chronic obstructive pulmonary disease, unspecified; F41.8 Other specified anxiety disorders; N25.0 Renal osteodystrophy; E78.5 Hyperlipidemia, unspecified; E11.319 Type 2 diabetes mellitus with unspecified diabetic retinopathy without macular edema; I48.0 Paroxysmal atrial fibrillation; E11.21 Type 2 diabetes mellitus with diabetic nephropathy; D63.1 Anemia in chronic kidney disease; F17.210 Nicotine dependence, cigarettes, uncomplicated; Z66 Do not resuscitate; Z99.2 Dependence on renal dialysis; Z79.4 Long term (current) use of insulin; Z95.1 Presence of aortocoronary bypass graft; Z86.16 Personal history of COVID-19; Z89.611 Acquired absence of right leg above knee; Z89.512 Acquired absence of left leg below knee; Z98.42 Cataract extraction status, left eye; Z98.41 Cataract extraction status, right eye; Z98.1 Arthrodesis status; I25.2 Old myocardial infarction; Z79.01 Long term (current) use of anticoagulants
CPT/HCPCS: 36415; 71045; 80048; 80053; 80069; 82948; 83690; 83735; 84484; 85025; 85027; 85055; 85610; 85730; 93005; 93459; 94640; 96365; 96366; 99285; A9270; C1769; C1887; C1894; G0257; G0378; J0360; J1644; J1815; J2250; J3010; J7030; J7040; Q5105

== ENCOUNTER 2023-03-04 15:33 | Observation (INO) | payer MEDICARE, OTHER, SELFPAY ==
--- NOTE | ~2023-03-04 | XR_ITS ---
EXAMINATION: XR chest 1V portable Exam Date/Time: 03/04/2023 17:16 CDT HISTORY: SOB Comparison: 02/26/2023. RESULT: Lines, tubes, and devices: Right IJ dialysis catheter, terminating in the right atrium. Intact gold otomy wires and sternal closure devices. Mediastinal surgical clips. Abandoned epicardial pacing wire s. Lungs and pleura: Mild diffuse reticular opacities. Linear left basilar scar/atelectasis. Cardiomediastinal silhouette: Stable. Other: No acute osseous or upper abdominal finding. IMPRESSION: Mild interstitial edema. Reviewed, dictated and finalized at location K. IMPRESSION: Mild interstitial edema.
--- NOTE | ~2023-03-04 | US_ITS ---
EXAMINATION: US venous doppler UE RT DATE: 03/04/2023 20:25 INDICATION: pain, swelling, redness . TECHNIQUE: Grayscale ultrasound images without and with compression and Doppler ultrasound images of the right upper extremity veins were obtained. COMPARISON: None. FINDINGS: The visualized portions of the right internal jugular vein, subclavian vein, axillary vein, brachial veins, basilic vein, cephalic vein, radial vein, and ulnar vein are patent. IMPRESSION: No deep venous thrombosis. Reviewed, dictated and finalized at location K. IMPRESSION: No deep venous thrombosis.
[2023-03-04 15:37] VITALS: BP 196/62; PULSE 87; RESP 17; TEMP 37.6; O2SAT 96
[2023-03-04 15:47] VITALS: PULSE 84
--- NOTE | 2023-03-04 16:31 | ECG_ITS ---
Measurements Intervals [place] Rate: 84 P: 38 MD: 187 QRS: 264 QRSD: 164 T: 66 QT: 414 QTc: 490 Interpretive Statements SINUS RHYTHM MARKED RIGHT AXIS DEVIATION [QRS AXIS > 100] RIGHT BUNDLE BRANCH BLOCK [120+ ms QRS DURATION, UPRIGHT V1, 40+ ms S IN I/aVL/V4/V5/V6] COMPARED TO ECG 02/26/2023 06:57:39 NO SIGNIFICANT CHANGES Electronically Signed On 03-05-2023 12:11:39 CDT by Marci Domínguez M.D.
[2023-03-04 17:08] LABS: Basophils Percent Auto 0.4 % (0.2-1.2); Eosinophils Absolute Auto 0.1 K/mm3 (0-0.3); Eosinophils Percent Auto 1.4 % (0-4.4); Hematocrit 34.4 % (37.0-47.0); Hemoglobin 10.9 g/dL (12.0-15.0); Immature Granulocyte Absolute 0.04 K/mm3 (0.00-0.031); Immature Granulocyte Percent A 0.6 % (0-0.5); Lymphocytes Absolute Auto 1.18 K/mm3 (0.9-3.2); Lymphocytes Percent Auto 16.6 % (18.3-44.2); Mean Corpuscular HGB Conc 31.7 g/dl (32-36); Mean Corpuscular Volume 100.9 fl (80-100); Monocytes Absolute Auto 0.6 K/mm3 (0.1-0.6); Monocytes Percent Auto 8.3 % (2.6-8.5); Neutrophils Absolute Auto 5.2 K/mm3 (1.3-6.7); Neutrophils Percent Auto 72.7 % (45.5-73.1); Platelet Count Result 102 k/mm3 (150-375); Red Blood Count 3.41 M/mm3 (4.2-5.4); Red Cell Distribution Width 13.4 % (11.5-14.5); White Blood Count 7.1 K/mm3 (4.5-10.0)
[2023-03-04 17:15] VITALS: BP 176/54; PULSE 85; RESP 20; O2SAT 96
[2023-03-04 17:17] LABS: Alanine Aminotransferase 16 U/L (6-35); Albumin Level 3.5 g/dL (3.5-5.1); Alkaline Phosphatase 114 U/L (38-126); Anion Gap 8 mmol/L (8-16); Aspartate Amino Transferase 26 U/L (14-36); Bilirubin,Total 0.6 mg/dL (0.2-1.3); Blood Urea Nitrogen 32 mg/dL (7-17); Calcium 7.5 mg/dL (8.4-10.2); Carbon Dioxide 24 mmol/L (22-30); Chloride 101 mmol/L (98-107); Estimated Glomerular Filt Rate 6; Glucose 271 mg/dL (65-110); Sodium 133 mmol/L (137-145)
--- NOTE | 2023-03-04 19:03 | ED.WEAKNESS ---
HPI - Weakness General Chief complaint: Weakness <Katie Peck PA-C - Last Filed: 03/04/23 23:17> Stated complaint: weak <BRIJESH Andrews Last Filed: 03/04/23 23:17> Time Seen by Provider: 03/04/23 17:18 <BRIJESH Andrews Last Filed: 03/04/23 23:17> Source: patient and family <BRIJESH Andrews Last Filed: 03/04/23 23:17> Mode of arrival: EMS <BRIJESH Andrews Last Filed: 03/04/23 23:17> Limitations: no limitations <BRIJESH Andrews Last Filed: 03/04/23 23:17> History of Present Illness HPI Narrative: This is a 72 year old female that presents to the ER for generalized weakness today. Reports no localizing symptoms. Daughter reports an area of tenderness to the right forearm where her recent IV site was. Denies fever, chest pain, shortness of breath, abdominal pain, vomiting, or dysuria. <BRIJESH Andrews Last Filed: 03/04/23 23:17> Related Data Home medications: Home Medications Medication Instructions Recorded Confirmed apixaban 5 mg tablet (Eliquis) 5 mg PO BID 11/03/19 03/04/23 insulin degludec 100 unit/mL 15 unit subcut HS 11/03/19 03/05/23 subcutaneous solution (Tresiba U-100 Insulin) pravastatin 40 mg tablet 40 mg PO HS 11/03/19 03/04/23 cetirizine 10 mg tablet 10 mg PO DAILY PRN allergies 02/06/22 03/04/23 insulin aspart U-100 100 unit/mL 8 unit subcut TIDWMEAL 02/28/22 03/05/23 (3 mL) subcutaneous pen (Novolog FlexPen U-100 Insulin aspart) pantoprazole 40 mg tablet,delayed 40 mg PO DAILY Heartburn 02/28/22 03/04/23 release acetaminophen 500 mg capsule 1,000 mg PO Q6H PRN Pain 01/10/23 03/04/23 calcium carbonate 300 mg (750 mg) 2 tablet PO DAILY PRN Indigestion 01/10/23 03/05/23 chewable tablet (Tums E-X) nifedipine 30 mg tablet,extended 30 mg PO .MONWEDFRISUN 02/20/23 03/04/23 release <Katie Peck PA-C - Last Filed: 03/04/23 23:17> Allergies/Adverse reactions: Allergies Allergy/AdvReac Type Severity Reaction Status Date / Time No Known Allergies Allergy Verified 03/04/23 23:56 <Katie Peck PA-C - Last Filed: 03/04/23 23:17> Review of Systems Review of Systems: CONSTITUTIONAL: Denies fever ENT: Denies congestion, sore throat CARDIOVASCULAR: Denies chest pain, or edema. RESPIRATORY: Denies cough or dyspnea. GASTROINTESTINAL: Denies abdominal pain, nausea, vomiting GENITOURINARY: Denies dysuria NEUROLOGIC: Reports generalized weakness. <Katie Peck PA-C - Last Filed: 03/04/23 23:17> All systems reviewed & are unremarkable except as noted in HPI and below <Katie Peck PA-C - Last Filed: 03/04/23 23:17> [facility] Past Medical History Medical History: Medical History (Updated 03/04/23 @ 23:43 by Lisa Enriquez DO) Anxiety with depression Arterial vascular disease Chronic anemia Coronary artery disease COVID Digital arterial occlusive disease End-stage renal disease on hemodialysis Saturday, , Saturday. 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 Hemoglobin A1c was 6.8% in February 2020. NSTEMI (non-ST elevated myocardial infarction) Osteomyelitis Paroxysmal atrial fibrillation Peripheral vascular disease Renal osteodystrophy Thrombocytopenia <Katie Peck PA-C - Last Filed: 03/04/23 23:17> Surgical History Surgical History: Surgical History Amputation of right forefoot Right 4th and 5th ray amputation in 04/2017. Right foot transmetatarsal amputation with partial fasciotomy due to wet gangrene, osteomyelitis, and necrotizing fasciitis in May 2017. 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 History of below-knee amputation of both lower extremities Left [id number] amputation i
[2023-03-04 19:35] LABS: Lactic Acid Reflex 1.9 mmol/L (0.7-2.0)
[2023-03-04 19:51] LABS: Erythrocyte Sedimentation Rate 66 mm/hr (0-20)
[2023-03-04 19:51] LABS: Influenza A QL RT-PCR Negative (Negative); Influenza B QL RT-PCR Negative (Negative); SARS-CoV-2 RNA PCR Negative (Negative)
[2023-03-04] MEDS: ACETAMINOPHEN 500 MG TABLET 1000 MG PO (20:47)
[2023-03-04 20:49] VITALS: BP 199/62; PULSE 87; RESP 17; O2SAT 96
[2023-03-04 21:20] VITALS: TEMP 37.7
[2023-03-04] MEDS: ceFAZolin 1 GM/NS 50 ML 1 GM/50 ML BAG IVPB (22:00)
--- NOTE | 2023-03-04 23:24 | PM.IMHP ---
H&P: HPI History of Present Illness Date/Time: 03/04/23 23:24 Chief Complaint: Weakness Narrative: 72-year-old female with past medical history of end-stage renal disease on hemodialysis Saturday, hypertension, hyperlipidemia, insulin-dependent diabetes mellitus and other associated complications who presented to the ER from home due to generalized weakness. The patient has no other complaints P 100 generalized weakness. She has a small amount of urine output at baseline denies dysuria. She has erythema of the right forearm. She has not had any fevers. Her temperature on arrival to the ER was 99.7. She denies any respiratory symptoms. She has not had any changes in her bowels. Patient was alert oriented person place and year. She is confused as to the month and thought it was December. She has had numerous contacts with the healthcare system recently and multiple admissions. She receives hemodialysis in [place] her computer systems architect is located there is well. The patient had just been hospitalized 02/27/2023 through 03/02/2023 for same symptoms. At that time she was having some chest pain and given she had multiple admissions for similar symptoms she underwent cardiac catheterization which demonstrated multivessel coronary artery disease. Her case was discussed with her track and field coach who recommended medical management. Her CT did demonstrate new stenosis 1 artery 70- 80%. Patient was discharged home. Patient reports that the day after she was discharged home she developed erythema to her right forearm with some tenderness at an IV site. She has not had any drainage from the area. In the ER CRP and ESR were elevated. Patient's clinical exam fits with superficial thrombophlebitis. Patient was admitted for treatment of possible cellulitis. Review of Systems Review of Systems: 12 systems were reviewed with pertinent positives and negatives per HPI. Except as documented in the HPI, all other systems were reviewed and are negative. FORMERLY [facility], [facility] Past Medical History Medical History (Updated 03/04/23 @ 23:43 by Lisa Enriquez DO) Anxiety with depression Arterial vascular disease Chronic anemia Coronary artery disease COVID Digital arterial occlusive disease End-stage renal disease on hemodialysis Saturday, , Saturday. 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 Hemoglobin A1c was 6.8% in February 2020. NSTEMI (non-ST elevated myocardial infarction) Osteomyelitis Paroxysmal atrial fibrillation Peripheral vascular disease Renal osteodystrophy Thrombocytopenia Surgical History Surgical History Amputation of right forefoot Right 4th and 5th ray amputation in 04/2017. Right foot transmetatarsal amputation with partial fasciotomy due to wet gangrene, osteomyelitis, and necrotizing fasciitis in May 2017. 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 History of below-knee amputation of both lower extremities Left mhjfy-hfi-arow amputation in 2017. Right vista-duq-cenw amputation in 02/2020. 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 History of vascular surgery Right lower extremity stents in March 2017. Left lower extremity stent in 2014. Family History Family History Mother Diabetes mellitus Father Lung cancer Acute myocardial infarction Sibling Diabetes mellitus Social History Social History (Updated 03/04/23 @ 23:31 by Lisa Enriquez DO) S
[2023-03-04 23:35] VITALS: BP 140/48; PULSE 73; RESP 16; TEMP 35.6; O2SAT 98
--- NOTE | 2023-03-04 23:35 | ADMGEN ---
This patient, Tawana Prado, was admitted to Medical Room 344-01. Patient/family oriented to hospital policies and general routines including ID bracelet, bed and alarms, visiting hours, pain management, procedures, bathroom and other care routines, personal items, smoking policy, room service/diet, and visiting hours. Information on how to activate the Rapid Response Team has been discussed. Patient/Family are encouraged to report perceived risks to care and to ask questions if they do not understand what they are told or what they should do.
[2023-03-04 23:59] VITALS: BMI 35.9
[2023-03-05] VITALS (15 sets, daily range): BP systolic 107–197; BP diastolic 44–105; PULSE 65–97; RESP 16–18; TEMP 35.6–37.2; O2SAT 96–99; BMI 35.9
[2023-03-05] MEDS: ceFAZolin 1 GM/NS 50 ML 1 GM/50 ML BAG IVPB ×2 (05:26→13:31)
[2023-03-05 08:28] LABS: Glucose Point of Care 271 mg/dl (65-105)
[2023-03-05] MEDS: ISOSORBIDE MONONITRATE 30 MG TAB.ER.24H PO (09:06)
[2023-03-05] MEDS: CLOPIDOGREL BISULFATE 75 MG TABLET PO (09:06)
[2023-03-05] MEDS: LOSARTAN POTASSIUM 100 MG TABLET PO (09:06)
[2023-03-05] MEDS: PANTOPRAZOLE 40 MG TABLET PO (09:07)
[2023-03-05] MEDS: APIXABAN 5 MG TABLET PO (09:07)
[2023-03-05] MEDS: SEVELAMER CARBONATE 800 MG TABLET PO ×3 (09:07→17:36)
[2023-03-05] MEDS: INSULIN ASPART (*BKC) 100 UNITS/ML SUB-Q ×2 (09:08→13:32)
[2023-03-05] MEDS: carvediloL 12.5 MG TABLET PO (09:08)
[2023-03-05] MEDS: INSULIN ASPART (*BKC) 100 UNITS/ML 8 UNITS SUB-Q ×3 (09:09→17:39)
--- NOTE | 2023-03-05 11:22 | PM.CNNEP ---
Assessment and Plan Assessment and plan (1) End stage renal disease: Status: Chronic Assessment and Plan: HD today continue T/T/S dialysis schedule while hospitalized follow electrolytes, volume status, and clearance (2) Thrombophlebitis: Code(s): I80.9 - Phlebitis and thrombophlebitis of unspecified site Status: Acute Assessment and Plan: on antibiotics follow culture data monitor clinical exam (3) Hypertension: Status: Chronic Assessment and Plan: reasonable control at this time resumed home medications follow trend of hemodynamics (4) Anemia: Status: Chronic Assessment and Plan: due to ESRD at goal Epogen with HD if Hgb < 10 follow trend of H/H (5) Insulin dependent type 2 diabetes mellitus: Status: Chronic Assessment and Plan: follow accuchecks glycemic control per hospitalists I will continue follow the patient with you while she remains hospitalized make further recommendations during her hospital course. Thank you for allowing me to participate in the care of this patient. History of Present Illness Reason for Consult Consult date: 03/05/23 Reason for consult: end stage renal disease Chief Complaint Chief complaint: Cellulitis History of Present Illness Narrative: The patient is a 72-year-old female with a past medical history as outlined below who presented to [facility] Emergency Room with complaints of generalized weakness. The patient was just recently hospitalized last week for similar symptoms and at that time, she also had chest pain in association with shortness of breath. She underwent a cardiac catheterization which demonstrated her known multi-vessel coronary artery disease with no specific intervention. She was maximized on medical therapy and was recommended that she did have cardiac symptoms, she should follow-up with her primary prepared foods associate if not go to the institution where she is based at which would be [facility]. She was subsequently discharged without any further intervention. The patient reports that the day after she was discharged, she noticed increased redness and erythema to her right forearm as well as some increased tenderness which was the approximate location of a previous IV site. She has not noticed any drainage from the area but it is quite tender to touch. The symptoms were in consider junction with her generalized weakness. She reports no fevers or chills. Given her constellation of symptoms as mentioned, she presented to [facility] ER for further assessment. Workup and evaluation emergency room demonstrated the patient be hemodynamically stable although she had a slight temperature of 99.7?. Routine laboratory findings were consistent with her known history of end-stage renal disease although her inflammatory parameters including her CRP and ESR were elevated. Her exam was somewhat consistent with superficial thrombophlebitis but given her extensive medical history there was a concern for potential progression to overt cellulitis. After appropriate cultures were obtained, she was started on antibiotic therapy and subsequent admitted to the hospital for further evaluation and therapy. Since her admission, she appears to be in no apparent distress and her superficial thrombophlebitis seems to be actually clinically better if not improved in comparison to what was seen in the emergency room. Renal consultation was requested due to her end-stage renal disease. The patient is quite familiar to me as I have taking care of her on multiple occasions whenever she is admitted here to [facility]. The patient normally dialyzes on a Saturday, , Saturday dialysis schedule at [facility] under the care of Dr. Clarke. As already mentioned above, the patient was just recently discharged after being admitted here for similar symptoms w
[2023-03-05 12:21] LABS: Glucose Point of Care 208 mg/dl (65-105)
--- NOTE | 2023-03-05 14:08 | PM.DS ---
DS: Admitting Diagnosis Discharge Date 03/05/2023 Admitting Diagnosis Weakness DS: Discharge Diagnosis Discharge Diagnosis (1) Chest pain: Qualifiers: Chest pain type: unspecified Qualified Code(s): R07.9 - Chest pain, unspecified Code(s): R07.9 - Chest pain, unspecified Status: Acute (2) Elevated troponin: Code(s): R77.8 - Other specified abnormalities of plasma proteins Status: Acute (3) End-stage renal disease on hemodialysis: Code(s): N18.6 - End stage renal disease; Z99.2 - Dependence on renal dialysis Status: Acute (4) Hypertension: Qualifiers: Hypertension type: renovascular hypertension Qualified Code(s): I15.0 - Renovascular hypertension Code(s): I10 - Essential (primary) hypertension Status: Chronic (5) Insulin dependent type 2 diabetes mellitus: Code(s): E11.9 - Type 2 diabetes mellitus without complications; Z79.4 - long-term (current) use of insulin Status: Chronic (6) Chronic anemia: Code(s): D64.9 - Anemia, unspecified Status: Acute (7) Chronic obstructive pulmonary disease: Code(s): J44.9 - Chronic obstructive pulmonary disease, unspecified Status: Acute (8) Peripheral vascular disease: Code(s): I73.9 - Peripheral vascular disease, unspecified Status: Acute Plan Patient has right upper extremity cellulitis versus thrombophlebitis.? Most likely thrombophlebitis.? Patient does have mildly elevated inflammatory markers in given her history of diabetes and immunocompromised state patient was admitted for antibiotic therapy and monitoring.? Patient was started on empiric antibiotic therapy with Ancef.? Will repeat CBC in a.m.. Patient does have end-stage renal disease on hemodialysis.? She is due for hemodialysis on the morning of the .? Will place Nephrology consult for dialysis management. Patient does have type 2 diabetes mellitus.? She is moderately hyperglycemic in the ER.? She has not received her meds at home.? She had not taken any of her meds today including blood pressure meds.? Will place patient on moderate dose sliding scale insulin and will resume home hypoglycemic agents.? Will change diet to consistent carbohydrate. Patient does have minimally prolonged QT on EKG.? Will avoid QT prolonging medications and monitor on telemetry. DS: Summary Hospital Course Hospital Course: 72-year-old female with past medical history of end-stage renal disease on hemodialysis Saturday, hypertension, hyperlipidemia, insulin-dependent diabetes mellitus and other associated complications who presented to the ER from home due to generalized weakness.? The patient has no other complaints P 100 generalized weakness.? She has a small amount of urine output at baseline denies dysuria.? She has erythema of the right forearm.? She has not had any fevers.? Her temperature on arrival to the ER was 99.7.? She denies any respiratory symptoms.? She has not had any changes in her bowels.? Patient was alert oriented person place and year.? She is confused as to the month and thought it was December.? She has had numerous contacts with the healthcare system recently and multiple admissions.? She receives hemodialysis in [place] her chin strap cutter is located there is well.? The patient had just been hospitalized 02/27/2023 through 03/02/2023 for same symptoms.? At that time she was having some chest pain and given she had multiple admissions for similar symptoms she underwent cardiac catheterization which demonstrated multivessel coronary artery disease.? Her case was discussed with her innovation analyst who recommended medical management.? Her CT did demonstrate new stenosis 1 artery 70- 80%.? Patient was discharged home.? Patient reports that the day after she was discharged home she developed erythema to her right forearm with some tenderness at an IV site.? She has not had any drainage from the area.? In the
[2023-03-05 17:44] LABS: Glucose Point of Care 148 mg/dl (65-105)
[2023-03-05 21:33] LABS: Glucose Point of Care 168 mg/dl (65-105)
[2023-03-06] VITALS: BP 159/69; PULSE 81
[2023-03-06 00:03] VITALS: BP 179/77; PULSE 84
[2023-03-06 00:10] VITALS: BP 188/73; PULSE 97; RESP 18
[2023-03-06] MEDS: INSULIN GLARGINE (*BKC) 100 UNITS/ML 15 UNITS SUB-Q (00:27)
[2023-03-06] MEDS: APIXABAN 5 MG TABLET PO (00:28)
[2023-03-06] MEDS: PRAVASTATIN SODIUM 20 MG TABLET 40 MG PO (00:28)
[2023-03-06] MEDS: carvediloL 12.5 MG TABLET PO (00:28)
[2023-03-06] MEDS: ceFAZolin 1 GM/NS 50 ML 1 GM/50 ML BAG IVPB ×2 (00:31→05:21)
[2023-03-06 03:47] VITALS: BP 172/87; PULSE 66; RESP 18; TEMP 36.6; O2SAT 98
[2023-03-06 04:19] LABS: Glucose Point of Care 125 mg/dl (65-105)
--- NOTE | 2023-03-06 08:44 | PM.IMPN ---
Progress Note: A&P Assessment and Plan (1) End-stage renal disease on hemodialysis: Code(s): N18.6 - End stage renal disease; Z99.2 - Dependence on renal dialysis Status: Acute (2) Insulin dependent type 2 diabetes mellitus: Code(s): E11.9 - Type 2 diabetes mellitus without complications; Z79.4 - roasterman (current) use of insulin Status: Chronic (3) Chronic anemia: Code(s): D64.9 - Anemia, unspecified Status: Acute (4) Chronic obstructive pulmonary disease: Code(s): J44.9 - Chronic obstructive pulmonary disease, unspecified Status: Acute (5) Cellulitis: Qualifiers: Laterality: right Site of cellulitis: extremity Site of cellulitis of extremity: upper extremity Qualified Code(s): L03.113 - Cellulitis of right upper limb Code(s): L03.90 - Cellulitis, unspecified Status: Acute (6) Thrombophlebitis: Code(s): I80.9 - Phlebitis and thrombophlebitis of unspecified site Status: Acute (7) Prolonged QT interval: Code(s): R94.31 - Abnormal electrocardiogram [ECG] [EKG] Status: Acute Plan Patient has right upper extremity cellulitis versus thrombophlebitis.? Most likely thrombophlebitis.? Patient does have mildly elevated inflammatory markers in given her history of diabetes and immunocompromised state patient was admitted for antibiotic therapy and monitoring.? Patient was started on empiric antibiotic therapy with Ancef.? Patient does have end-stage renal disease on hemodialysis.? She is due for hemodialysis on the morning of the .? Will place Nephrology consult for dialysis management. pt can be discharged after dialysis. Patient does have type 2 diabetes mellitus.? She is moderately hyperglycemic in the ER.? She has not received her meds at home.? She had not taken any of her meds today including blood pressure meds.? Will place patient on moderate dose sliding scale insulin and will resume home hypoglycemic agents.? Will change diet to consistent carbohydrate. Subjective Date/time seen: 03/05/23 08:44 Interval history: 72-year-old female with past medical history of end-stage renal disease on hemodialysis Saturday, hypertension, hyperlipidemia, insulin-dependent diabetes mellitus and other associated complications who presented to the ER from home due to generalized weakness.? The patient has no other complaints P 100 generalized weakness.? She has a small amount of urine output at baseline denies dysuria.? She has erythema of the right forearm.? She has not had any fevers.? Her temperature on arrival to the ER was 99.7.? She denies any respiratory symptoms.? She has not had any changes in her bowels.? Patient was alert oriented person place and year.? She is confused as to the month and thought it was December.? She has had numerous contacts with the healthcare system recently and multiple admissions.? She receives hemodialysis in [place] her steam flattener is located there is well.? The patient had just been hospitalized 02/27/2023 through 03/02/2023 for same symptoms.? At that time she was having some chest pain and given she had multiple admissions for similar symptoms she underwent cardiac catheterization which demonstrated multivessel coronary artery disease.? Her case was discussed with her strategy consultant who recommended medical management.? Her CT did demonstrate new stenosis 1 artery 70- 80%.? Patient was discharged home.? Patient reports that the day after she was discharged home she developed erythema to her right forearm with some tenderness at an IV site. Pt is stable for dc after dialysis esau am Exam Narrative: Weight 81.1 kg BMI 37.4 Const: Other: Obese, appears stated age, chronically ill-appearing, no acute distress HENMT: Other: Crowded posterior oropharynx, and dry mucous membranes, no oral pharyngeal erythema Eyes: Other: Pupils are equal and reactive, positive conjunctival pa
== END 2023-03-06 09:08 | disposition home or self-care (01) ==
LOC: ANHED 22:35 → ANH3MED 03-05 08:46
PROVIDERS: General Practice; Admitting Provider Internal Medicine; Emergency Provider Physician Assistant; PCP Internal Medicine; Visit Provider Family Medicine
DX: I80.9 Phlebitis and thrombophlebitis of unspecified site (principal); R94.31 Abnormal electrocardiogram [ECG] [EKG]; L03.113 Cellulitis of right upper limb; Z89.022 Acquired absence of left finger(s); B95.7 Other staphylococcus as the cause of diseases classified elsewhere; Z20.822 Contact with and (suspected) exposure to COVID-19; I12.0 Hypertensive chronic kidney disease with stage 5 chronic kidney disease or end stage renal disease; E11.22 Type 2 diabetes mellitus with diabetic chronic kidney disease; Z99.2 Dependence on renal dialysis; N18.6 End stage renal disease; E78.5 Hyperlipidemia, unspecified; I25.2 Old myocardial infarction; I25.10 Atherosclerotic heart disease of native coronary artery without angina pectoris; Z95.1 Presence of aortocoronary bypass graft; D69.6 Thrombocytopenia, unspecified; Z98.62 Peripheral vascular angioplasty status; M86.9 Osteomyelitis, unspecified; I48.0 Paroxysmal atrial fibrillation; R91.8 Other nonspecific abnormal finding of lung field; K30 Functional dyspepsia; D64.9 Anemia, unspecified; F41.8 Other specified anxiety disorders; Z89.512 Acquired absence of left leg below knee; Z89.511 Acquired absence of right leg below knee; Z87.891 Personal history of nicotine dependence; F12.90 Cannabis use, unspecified, uncomplicated; Z86.16 Personal history of COVID-19; Z79.01 Long term (current) use of anticoagulants; Z79.4 Long term (current) use of insulin
CPT/HCPCS: 36415; 71045; 80053; 82948; 83605; 85025; 85652; 86140; 87040; 87147; 87181; 87186; 87636; 93005; 93971; 96365; 96366; 96367; 99285; A9270; G0257; G0378; J0690; J1644; J1815; J3370; J7030

== ENCOUNTER 2023-03-23 23:07 | Observation (INO) | payer MEDICARE, OTHER, SELFPAY ==
--- NOTE | ~2023-03-23 | XR_ITS ---
XR chest 1V portable 03/23/2023 23:41 Indication: Shortness of breath Procedure: AP portable chest Comparison: Comparison to multiple prior studies sequentially, with oldest reviewed study dated 01/24. Findings: Status post median sternotomy for CABG. Large bore central venous catheter tip at the cavoa trial junction. Cardiomegaly. Mild interstitial edema. No significant effusion. No pneumothorax. Ther e is a masslike density in the right lower lung, suspicious for bronchogenic carcinoma. Recommend cor relation with CT. Impression: 1: Mild interstitial edema. 2: Masslike density right lower lung, suspicious for bronchogenic carcinoma, corresponding to nodule seen on CT dated 01/11/2023. Recommend follow-up CT to assess for interval change. Reviewed, dictated and finalized at location A. Impression: 1: Mild interstitial edema. 2: Masslike density right lower lung, suspicious for bronchogenic carcinoma, co rresponding to nodule seen on CT dated 01/11/2023. Recommend follow-up CT to ass ess for interval change.
[2023-03-23 23:07] VITALS: BP 187/61; PULSE 108; RESP 20; TEMP 37; O2SAT 89
[2023-03-23 23:13] VITALS: PULSE 106; O2SAT 91
[2023-03-23 23:42] LABS: Basophils Percent Auto 0.5 % (0.2-1.2); Eosinophils Absolute Auto 0.3 K/mm3 (0-0.3); Eosinophils Percent Auto 4.7 % (0-4.4); Hematocrit 35.7 % (37.0-47.0); Hemoglobin 10.9 g/dL (12.0-15.0); Immature Granulocyte Absolute 0.02 K/mm3 (0.00-0.031); Immature Granulocyte Percent A 0.3 % (0-0.5); Lymphocytes Percent Auto 21.3 % (18.3-44.2); Mean Corpuscular HGB Conc 30.5 g/dl (32-36); Mean Corpuscular Hemoglobin 31.6 pg (26-34); Mean Corpuscular Volume 103.5 fl (80-100); Mean Platelet Volume 12.9 fl (7.4-10.4); Monocytes Absolute Auto 0.4 K/mm3 (0.1-0.6); Monocytes Percent Auto 6.4 % (2.6-8.5); Neutrophils Absolute Auto 4.4 K/mm3 (1.3-6.7); Neutrophils Percent Auto 66.8 % (45.5-73.1); Platelet Count Result 138 k/mm3 (150-375); Red Blood Count 3.45 M/mm3 (4.2-5.4); White Blood Count 6.6 K/mm3 (4.5-10.0)
[2023-03-23 23:53] LABS: Lactic Acid Reflex 2.5 mmol/L (0.7-2.0)
[2023-03-23 23:55] LABS: Alanine Aminotransferase 24 U/L (6-35); Albumin Level 3.9 g/dL (3.5-5.1); Alkaline Phosphatase 193 U/L (38-126); Anion Gap 8 mmol/L (8-16); Aspartate Amino Transferase 29 U/L (14-36); Bilirubin,Total 0.5 mg/dL (0.2-1.3); Blood Urea Nitrogen 33 mg/dL (7-17); Calcium 8.2 mg/dL (8.4-10.2); Carbon Dioxide 32 mmol/L (22-30); Chloride 99 mmol/L (98-107); Estimated CRCL calculation 12 ml/min; Estimated Glomerular Filt Rate 11; Glucose 354 mg/dL (65-110); Magnesium 2.2 mg/dL (1.6-2.3); Potassium 4.4 mmol/L (3.4-5.0); Sodium 139 mmol/L (137-145)
[2023-03-23 23:59] LABS: INR 1.2; Partial Thromboplastin Time 34.5 SECONDS (22.3-36.8); Prothrombin Time 15.4 Seconds (11.1-14.7)
[2023-03-24] VITALS (22 sets, daily range): BP systolic 136–219; BP diastolic 50–71; PULSE 66–96; RESP 14–20; TEMP 35.9–36.8; O2SAT 91–100; BMI 26.9
[2023-03-24 00:07] LABS: Troponin I 0.034 ng/mL (0.000-0.034)
[2023-03-24 01:13] LABS: Appearance Urine Clear (Clear); Bacteria Urine None Seen /hpf; Bilirubin Urine Negative (Negative); Blood Urine 3+ (Negative); Color Urine Yellow (Yellow); Glucose Urine UA 2+ mg/dL (Negative); Ketones Urine Negative (Negative); Leukocyte Esterase Ur Trace LEU/UL (Negative); Need Manual Microscopic Reviewed; Nitrate Urine Negative (Negative); Non Pathogenic Casts 0-2; Protein Urine 3+ mg/dL (Negative); Specific Grav Ur 1.017 (1.001-1.035); Squamous Epithelial Cell Urine None seen /hpf (Few); Urobilinogen Urine 0.2 mg/dL (<2.0)
--- NOTE | 2023-03-24 01:13 | ED.GENADULT ---
HPI - General Adult General Chief complaint: Shortness of Breath/Dyspnea Stated complaint: SOB,PAIN ACROSS CHEST, BURNING THROAT DOWN CHEST. Time Seen by Provider: 03/23/23 23:14 History of Present Illness HPI narrative: Patient 72-year-old female who presents the emergency department with chief complaint of shortness of breath. Patient reports that she had a burning sensation in her chest and reports that she has had episodes of shortness of breath. The patient was found to be hypoxic by EMS and was placed on oxygen. Patient reports she has history of end-stage renal disease on dialysis and reports she also has history of cardiac disease. Related Data Home Medications Medication Instructions Recorded Confirmed apixaban 5 mg tablet (Eliquis) 5 mg PO BID 11/03/19 03/04/23 insulin degludec 100 unit/mL 15 unit subcut HS 11/03/19 03/05/23 subcutaneous solution (Tresiba U-100 Insulin) pravastatin 40 mg tablet 40 mg PO HS 11/03/19 03/04/23 cetirizine 10 mg tablet 10 mg PO DAILY PRN allergies 02/06/22 03/04/23 insulin aspart U-100 100 unit/mL 8 unit subcut TIDWMEAL 02/28/22 03/05/23 (3 mL) subcutaneous pen (Novolog FlexPen U-100 Insulin aspart) pantoprazole 40 mg tablet,delayed 40 mg PO DAILY Heartburn 02/28/22 03/04/23 release acetaminophen 500 mg capsule 1,000 mg PO Q6H PRN Pain 01/10/23 03/04/23 calcium carbonate 300 mg (750 mg) 2 tablet PO DAILY PRN Indigestion 01/10/23 03/05/23 chewable tablet (Tums E-X) nifedipine 30 mg tablet,extended 30 mg PO .MONWEDFRISUN 02/20/23 03/04/23 release Allergies Allergy/AdvReac Type Severity Reaction Status Date / Time No Known Allergies Allergy Verified 03/04/23 23:56 Review of Systems Review of Systems: A 10 system review of systems was completed on the patient and is negative except for what is stated in the HPI. Nursing and ancillary documentation was reviewed. [facility] Past Medical History Medical History Anxiety with depression Arterial vascular disease Chronic anemia Coronary artery disease COVID Digital arterial occlusive disease End-stage renal disease on hemodialysis Saturday, , Saturday. 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 Hemoglobin A1c was 6.8% in February 2020. NSTEMI (non-ST elevated myocardial infarction) Osteomyelitis Paroxysmal atrial fibrillation Peripheral vascular disease Renal osteodystrophy Thrombocytopenia Surgical History Surgical History Amputation of right forefoot Right 4th and 5th ray amputation in 04/2017. Right foot transmetatarsal amputation with partial fasciotomy due to wet gangrene, osteomyelitis, and necrotizing fasciitis in May 2017. 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 History of below-knee amputation of both lower extremities Left cwowo-oxn-jqmx amputation in 2017. Right qjcxj-liu-ywsc amputation in 02/2020. 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 History of vascular surgery Right lower extremity stents in March 2017. Left lower extremity stent in 2014. Family History Family History Mother Diabetes mellitus Father Lung cancer Acute myocardial infarction Sibling Diabetes mellitus Social History Social History Social History: Surrogate medical decision maker: Kierra Blanton (sister) or Hal
[2023-03-24 01:15] LABS: Add Urine Microscopic? YES
--- NOTE | 2023-03-24 01:47 | PM.IMHP ---
H&P: HPI History of Present Illness Date/Time: 03/24/23 01:47 Chief Complaint: SOB Narrative: THIS IS A 72-YEAR-OLD FEMALE WITH PAST MEDICAL HISTORY SIGNIFICANT FOR END-STAGE RENAL DISEASE ON HEMODIALYSIS, PERIPHERAL VASCULAR DISEASE, CORONARY ARTERY DISEASE STATUS POST CABG, RIGHT AKA LEFT BKA. PATIENT PRESENTS TO THE EMERGENCY ROOM DUE TO SHORTNESS OF BREATH, DIFFICULTY BREATHING, FEVERS, CHILLS, GENERALIZED MALAISE, GENERALIZED FATIGUE, GENERALIZED WEAKNESS. PATIENT WAS HYPOXIC WHEN SHE WAS FOUND BY EMS AND PLACED ON SUPPLEMENTAL OXYGEN. PRELIMINARY WORKUP WAS SIGNIFICANT FOR CHEST X-RAY WITH RIGHT LOWER LOBE INFILTRATE. Review of Systems Review of Systems: SHORTNESS OF BREATH, DIFFICULTY BREATHING, LOW PULSE OX, GENERALIZED MALAISE, BODY ACHES AND PAINS, FATIGUE Constitutional: Constitutional: Reports chills, Reports fatigue, Reports fever(s), Reports malaise and Reports weakness Eyes: Eyes: Denies change in vision ENT: Denies dysphagia and Denies odynophagia Cardiovascular: Cardiovascular: Denies chest pain, Denies radiating jaw, neck or arm pain and Denies palpitations Respiratory: Respiratory: Reports chest congestion, Reports cough and Reports dyspnea Gastrointestinal: Gastrointestinal: Denies abdominal pain, Denies melena, Denies coffee ground emesis, Denies dyspepsia, Denies nausea and Denies vomiting Genitourinary: Genitourinary: Denies dysuria and Denies flank pain Musculoskeletal: Musculoskeletal: Reports other (RIGHT AKA LEFT BKA) Integumentary/Breasts: Skin/Breast: Denies rash Neurologic: Denies focal weakness and Denies Sensory deficit (Neuro) Psychiatric: Psychiatric: Reports no additional psychiatric complaints and Reports as per HPI Endocrine: Endocrine: Denies cold intolerance, Denies fatigue, Denies flushing, Denies heat intolerance, Denies polyphagia, Denies polydipsia and Denies palpitations Hematologic/Lymphatic: Hematologic/Lymphatic: Reports no additional hematologic/lymphatic complaints and Reports as per HPI Allergic/Immunologic: Allergic/Immunologic: Reports no additional allergic/immunologic complaints and Reports as per HPI PMFSH Past Medical History Medical History Anxiety with depression Arterial vascular disease Chronic anemia Coronary artery disease COVID Digital arterial occlusive disease End-stage renal disease on hemodialysis Saturday, , Saturday. 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 Hemoglobin A1c was 6.8% in February 2020. NSTEMI (non-ST elevated myocardial infarction) Osteomyelitis Paroxysmal atrial fibrillation Peripheral vascular disease Renal osteodystrophy Thrombocytopenia Surgical History Surgical History Amputation of right forefoot Right 4th and 5th ray amputation in 04/2017. Right foot transmetatarsal amputation with partial fasciotomy due to wet gangrene, osteomyelitis, and necrotizing fasciitis in May 2017. 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 History of below-knee amputation of both lower extremities Left [id number] amputation in 2017. Right pyglo-lcj-[id number] amputation in 02/2020. 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 History of vascular surgery Right lower extremity stents in March 2017. Left lower extremity stent in 2014. Family History Family History Mother Diabetes mellitus Father Gabbi
[2023-03-24] MEDS: CEFEPIME 2 GM/NS 50 ML 2 GM/50 ML BAG IVPB (01:51)
[2023-03-24] MEDS: ALBUTEROL SULFATE NEB 2.5 MG/3 ML INH INHALATION ×4 (02:01→19:57)
[2023-03-24] MEDS: IPRATROPIUM BR 0.02% INH SOLN 0.5 MG/2.5 ML VIAL INHALATION ×4 (02:01→19:57)
[2023-03-24 02:37] LABS: Reflex Lactic Acid Yes or No Add Lactic
--- NOTE | 2023-03-24 02:40 | ADMGEN ---
This patient, Tawana Prado, was admitted to Medical Room 345-. Patient/family oriented to hospital policies and general routines including ID bracelet, bed and alarms, visiting hours, pain management, procedures, bathroom and other care routines, personal items, smoking policy, room service/diet, and visiting hours. Information on how to activate the Rapid Response Team has been discussed. Patient/Family are encouraged to report perceived risks to care and to ask questions if they do not understand what they are told or what they should do.
[2023-03-24 03:39] LABS: MRSA (PCR) NOT DETECTED (NOT DETECTE)
[2023-03-24 04:43] LABS: Lactic Acid 2.1 mmol/L (0.7-2.0)
[2023-03-24 04:46] LABS: Troponin I 0.315 ng/mL (0.000-0.034)
[2023-03-24 06:10] LABS: Troponin I 0.899 ng/mL (0.000-0.034)
[2023-03-24 09:21] LABS: Glucose Point of Care 238 mg/dl (65-105)
[2023-03-24] MEDS: INSULIN ASPART (*BKC) 100 UNITS/ML 8 UNITS SUB-Q ×3 (09:27→17:04)
[2023-03-24] MEDS: SEVELAMER CARBONATE 800 MG TABLET PO ×3 (09:28→17:04)
[2023-03-24] MEDS: carvediloL 12.5 MG TABLET PO ×2 (09:29→19:39)
[2023-03-24] MEDS: APIXABAN 5 MG TABLET PO ×2 (09:29→19:39)
[2023-03-24] MEDS: PANTOPRAZOLE 40 MG TABLET PO (09:31)
[2023-03-24] MEDS: ISOSORBIDE MONONITRATE 30 MG TAB.ER.24H PO (09:31)
[2023-03-24] MEDS: LOSARTAN POTASSIUM 100 MG TABLET PO (09:31)
[2023-03-24] MEDS: CLOPIDOGREL BISULFATE 75 MG TABLET PO (09:31)
[2023-03-24] MEDS: NIFEdipine 30 MG TAB.ER.24 PO ×2 (09:32→19:39)
--- NOTE | 2023-03-24 09:58 | PM.IMPN ---
Progress Note: A&P Assessment and Plan (1) Pneumonia: Code(s): J18.9 - Pneumonia, unspecified organism Status: Acute Assessment and Plan: Vancomycin and cefepime initiated 03/23 Follow-up blood and sputum cultures (2) End stage renal disease on dialysis: Code(s): N18.6 - End stage renal disease; Z99.2 - Dependence on renal dialysis Status: Acute Assessment and Plan: Appreciate nephrology consultation for hemodialysis (3) Hypoxic respiratory failure: Code(s): J96.91 - Respiratory failure, unspecified with hypoxia Status: Acute Assessment and Plan: Wean oxygen as able, see above Appears to be stable on room air 03/24, monitor (4) Peripheral vascular disease: Code(s): I73.9 - Peripheral vascular disease, unspecified Status: Acute Assessment and Plan: Stable (5) Coronary artery disease with hx of myocardial infarct w/o hx of CABG: Code(s): I25.10 - Atherosclerotic heart disease of [place] coronary artery without angina pectoris; I25.2 - Old myocardial infarction Status: Acute (6) Insulin dependent type 2 diabetes mellitus: Code(s): E11.9 - Type 2 diabetes mellitus without complications; Z79.4 - correction (current) use of insulin Status: Chronic Assessment and Plan: Accu-Cheks, sliding scale insulin, continue home insulin Blood glucose reviewed 03/24 Plan DVT prophylaxis with SCDs GI prophylaxis not indicated Code status DNR Subjective Date/time seen: 03/24/23 09:58 Interval history: 72-year-old female with past medical history of end-stage renal disease on hemodialysis, heart disease and severe vascular disease status post right AKA and left BKA is presenting with shortness of breath and currently being treated for pneumonia. No overnight events noted. No chest pain or shortness of breath. No nausea, vomiting or diarrhea. No fevers or chills. Patient still feels a little weak and dyspnea with exertion. She is coughing up some sputum. Review of Systems Review of Systems: 12 point review of systems was assessed and was negative except as noted in the HPI Exam Narrative: General: No acute distress, alert and oriented per baseline HEENT: Atraumatic, normocephalic, mucous membranes moist CV: Regular rate and rhythm, S1, S2 Lungs: Clear to auscultation bilaterally, no rales or crackles noted, no wheezes, good air entry Abdomen: Soft, nontender, nondistended Skin: No rashes noted, no lesions or wounds seen Psych: Euthymic, normal affect Objective Data Vital Signs Vital Signs: Vital Signs - 24 hr 03/23/23 23:07 03/23/23 23:13 03/23/23 23:13 Temperature 98.6 F Pulse Rate 108 H 106 H Respiratory Rate 20 Blood Pressure 187/61 H Pulse Oximetry 89 L 91 Oxygen Delivery Room Air Room Air 03/24/23 01:52 03/24/23 02:02 03/24/23 03:51 Temperature 97.8 F Pulse Rate 69 96 71 Respiratory Rate 14 18 16 Blood Pressure 198/52 H 176/58 H Pulse Oximetry 100 100 Oxygen Delivery 03/24/23 04:00 03/24/23 07:21 03/24/23 07:25 Temperature Pulse Rate 71 74 Respiratory Rate 18 Blood Pressure Pulse Oximetry 91 Oxygen Delivery Room Air 03/24/23 07:32 03/24/23 09:29 Temperature Pulse Rate 75 73 Respiratory Rate 18 Blood Pressure Pulse Oximetry Oxygen Delivery Intake/Output Intake/Output: Intake & Output 03/21/23 03/22/23 03/23/23 03/24/23 23:59 23:59 23:59 23:59 Intake Total 750 Balance 750 Meds/Results Medications: Active Medications Generic Name Dose Route Start Last Admin Trade Name Freq PRN Reason Stop Dose Admin Acetaminophen 1,000 mg 03/24/23 05:31 Acetaminophen 500 Mg Tablet PO Q6H PRN Pain Albuterol 2.5 mg 03/24/23 02:00 03/24/23 07:20 Albuterol Sulfate Neb 2.5 Mg/3 Ml Inh INHALATION 2.5 mg Q6HRT KEMI Administration Apixaban 5 mg 03/24/23 09:00 03/24/23
[2023-03-24 11:41] LABS: Glucose Point of Care 277 mg/dl (65-105)
--- NOTE | 2023-03-24 12:38 | PM.CNCAR ---
Assessment and Plan Assessment and plan (1) Chest pain: Code(s): R07.9 - Chest pain, unspecified Status: Acute Plan 72-year-old lady with extensive coronary and peripheral vascular disease having ongoing symptoms of myocardial ischemia which are not surprising given her known coronary anatomy that was delineated here in the rn labor and delivery on 02/28/2023. Given the recency of her angiograms and these findings there is no reason at all to repeat ischemia evaluation at this time. It is very important that she contact her established body design checker so that consideration can be given to high-risk PCI both of her EVGENY graft as well as her vein graft as described in Dr. Domínguez's cath note. There is no reason to repeat ischemia evaluation here as I mention. If she remains essentially stable she can probably be discharged tomorrow but it is very important that at the time of her discharge whenever that occurs short interval follow-up and or scheduling PCI is arranged and not left up to the patient since she does not seem to be doing this reliably Gilbert Hurley MD [facility] History of Present Illness History of Present Illness Consult date/time: 03/24/23 12:38 Reason For Visit: ESRD on HD,pneumonia,hypoxic respiratory failure Narrative: This is a 72-year-old woman who is known to have severe coronary and peripheral vascular disease. I am seeing the patient at the request of the hospitalist because of chest pain, shortness of breath and a modest troponin elevation. The patient also has end-stage renal disease and is on chronic hemodialysis 3 times per week. She is in his low established patient of Dr. Blackwood of [facility]. She has been hospitalized here at [facility] many times when she has symptoms of chest pain or dyspnea for some reason she does not go to the hospital where her body design checker provides care. Any event she once again last evening began to experience symptoms of burning retrosternal chest pain and some shortness of breath an ambulance was called and she was brought here for further evaluation. The patient's ER evaluation did not show any evidence of obvious acute MA. Her troponin levels have risen modestly and as a result of this we are asked to see her in consultation. Because of her multitude of admissions here her last admission she underwent follow-up catheterization by my partner, Dr. Domínguez on 02/28/2023. The reader is referred to the details of her catheterization note for those findings. In summary she was found to have severe diffuse multivessel coronary disease. She had 2 potential opportunities for percutaneous revascularization which included in the body of her EVGENY graft to the LAD as well as in a saphenous vein graft to the circumflex system. It was not felt to be reasonable/realistic that these high-risk pleases should be addressed in this rn labor and delivery. Recommendations were that she would follow up with her cardiac established body design checker and consider PCI of this at a larger hospital with more interventional capability. For some reason that has not occurred. The patient states that she did not make an attempt to contact her physicians nor has she heard from anyone else about this. In this setting she is admitted here again in we are seeing her again in consultation. She feels relatively well at this time is enjoying her lunch and does not have any significant complaints. Review of Systems Constitutional: Constitutional: Reports lethargy Eyes: Eyes: Reports no additional eye complaints ENT: Reports system reviewed and no additional complaints, except as documented Cardiovascular: Cardiovascular: Reports as per HPI and Reports chest pain Respiratory: Respiratory: Reports as per HPI and Reports dyspnea Gastrointestinal: Gastrointestinal: Reports no additional gastrointestinal complaints Musculoskeletal: Musculoskeletal: Reports no additional musculoskeletal complaints Integumentary/Breasts: Skin/Br
[2023-03-24 17:02] LABS: Glucose Point of Care 159 mg/dl (65-105)
[2023-03-24] MEDS: PRAVASTATIN SODIUM 20 MG TABLET 40 MG PO (19:39)
[2023-03-24 22:19] LABS: Glucose Point of Care 117 mg/dl (65-105)
[2023-03-24] MEDS: hydrALAZINE HCL 20 MG/ML VIAL 10 MG IV PUSH (22:53)
[2023-03-24 22:57] LABS: Glucose Point of Care 86 mg/dl (65-105)
[2023-03-25] VITALS (14 sets, daily range): BP systolic 148–177; BP diastolic 45–62; PULSE 64–74; RESP 18; TEMP 36.2–36.3; O2SAT 97–100
[2023-03-25] MEDS: CEFEPIME 1 GM/NS 50 ML 1 GM/50 ML BAG IVPB (01:31)
[2023-03-25] MEDS: IPRATROPIUM BR 0.02% INH SOLN 0.5 MG/2.5 ML VIAL INHALATION ×3 (02:28→13:49)
[2023-03-25] MEDS: ALBUTEROL SULFATE NEB 2.5 MG/3 ML INH INHALATION ×3 (02:28→13:49)
[2023-03-25 06:00] LABS: Estimated CRCL calculation 8 ml/min; Estimated Glomerular Filt Rate 8
[2023-03-25 06:12] LABS: Vancomycin Random 18.6 ug/mL (10-20)
[2023-03-25 08:46] LABS: Glucose Point of Care 104 mg/dl (65-105)
[2023-03-25] MEDS: SEVELAMER CARBONATE 800 MG TABLET PO ×2 (09:43→12:36)
[2023-03-25] MEDS: CLOPIDOGREL BISULFATE 75 MG TABLET PO (09:44)
[2023-03-25] MEDS: PANTOPRAZOLE 40 MG TABLET PO (09:44)
[2023-03-25] MEDS: ISOSORBIDE MONONITRATE 30 MG TAB.ER.24H PO (09:44)
[2023-03-25] MEDS: LOSARTAN POTASSIUM 100 MG TABLET PO (09:44)
[2023-03-25] MEDS: carvediloL 12.5 MG TABLET PO (09:44)
[2023-03-25] MEDS: APIXABAN 5 MG TABLET PO (09:44)
[2023-03-25] MEDS: NIFEdipine 30 MG TAB.ER.24 PO (09:46)
--- NOTE | 2023-03-25 10:23 | PC.NURSE ---
Buttoner gave update to Raghavendra on patient's status via telephone
[2023-03-25 11:52] LABS: Glucose Point of Care 168 mg/dl (65-105)
--- NOTE | 2023-03-25 15:54 | PM.DS ---
DS: Admitting Diagnosis Discharge Date 03/25/23 Admitting Diagnosis sob DS: Discharge Diagnosis Discharge Diagnosis (1) Pneumonia: Code(s): J18.9 - Pneumonia, unspecified organism Status: Acute Assessment and Plan: Vancomycin and cefepime initiated 03/23 Follow-up blood and sputum cultures (2) End stage renal disease on dialysis: Code(s): N18.6 - End stage renal disease; Z99.2 - Dependence on renal dialysis Status: Acute Assessment and Plan: Appreciate nephrology consultation for hemodialysis (3) Hypoxic respiratory failure: Code(s): J96.91 - Respiratory failure, unspecified with hypoxia Status: Acute Assessment and Plan: Wean oxygen as able, see above Appears to be stable on room air 03/24, monitor (4) Peripheral vascular disease: Code(s): I73.9 - Peripheral vascular disease, unspecified Status: Acute Assessment and Plan: Stable (5) Coronary artery disease with hx of myocardial infarct w/o hx of CABG: Code(s): I25.10 - Atherosclerotic heart disease of [place] coronary artery without angina pectoris; I25.2 - Old myocardial infarction Status: Acute (6) Insulin dependent type 2 diabetes mellitus: Code(s): E11.9 - Type 2 diabetes mellitus without complications; Z79.4 - terminal operations supervisor (current) use of insulin Status: Chronic Assessment and Plan: Accu-Cheks, sliding scale insulin, continue home insulin Blood glucose reviewed 03/24 Plan DVT prophylaxis with SCDs GI prophylaxis not indicated Code status DNR DS: Summary Hospital Course Hospital Course: 72-year-old female with past medical history of end-stage renal disease on hemodialysis, heart disease and severe vascular disease status post right AKA and left BKA is presenting with shortness of breath and currently being treated for pneumonia. Initially started on vancomycin and cefepime. Blood and MRSA cultures came back negative. Patient discharged home on Augmentin to complete a course of 10 days. Please see above and med rec for details. Time Spent with Patient Time attestation: Total time spent providing and/or coordinating discharge services: Exam Narrative: General: No acute distress, alert and oriented per baseline HEENT: Atraumatic, normocephalic, mucous membranes moist CV: Regular rate and rhythm, S1, S2 Lungs: Clear to auscultation bilaterally, no rales or crackles noted, no wheezes, good air entry Abdomen: Soft, nontender, nondistended Skin: No rashes noted, no lesions or wounds seen Psych: Euthymic, normal affect DS: Data Data Completed and Pending Labs on day of discharge: Labs from last 24 hours 03/25/23 03/25/23 03/25/23 11:45 08:38 05:26 Creatinine 5.50 H Estim Creat Clear Calc 8 Estimated GFR 8 L POC Capillary Glucose 168 H 104 Random Vancomycin 18.6 03/24/23 03/24/23 03/24/23 22:15 19:40 16:56 Creatinine Estim Creat Clear Calc Estimated GFR POC Capillary Glucose 117 H 86 159 H Random Vancomycin Preliminary micro results at discharge 03/24/23 01:32 Blood Culture - Preliminary Blood 03/24/23 01:32 Blood Culture - Preliminary Blood Discharge Plan Discharge Attending physician on discharge: Karlene Cortes Consulting providers: Abril Vance Discharging Clinician: Karlene Cortes Patient Disposition: Home, Self-Care Activity: as tolerated Diet: as tolerated Patient Instructions: Antibiotic Form, Apixaban (By mouth), Safe Use of Anticoagulants (GEN), Blood Thinners (GEN) Stand Alone Forms: General Discharge Information Follow-up/Referrals: Maximiliano,MD [facility] [Primary Care Provider] - Discharge Medications: New amoxicillin-pot clavulanate 875-125 mg tablet 1 tablet PO Q12H 8 Days Qty: 16 0RF Continued pravastatin 40 mg Tablet 40 mg PO HS Eliquis 5 mg Tablet 5 mg PO BID insul
== END 2023-03-25 18:37 | disposition home or self-care (01) ==
LOC: ANHED 03-24 01:17 → ANH3MED 03-24 02:08
PROVIDERS: Admitting Provider Internal Medicine; Emergency Provider Emergency Medicine; PCP Internal Medicine; Visit Provider Student in an Organized Health Care Education/Training Program
DX: J18.9 Pneumonia, unspecified organism (principal); I12.0 Hypertensive chronic kidney disease with stage 5 chronic kidney disease or end stage renal disease; E11.22 Type 2 diabetes mellitus with diabetic chronic kidney disease; N18.6 End stage renal disease; Z99.2 Dependence on renal dialysis; D63.1 Anemia in chronic kidney disease; J96.91 Respiratory failure, unspecified with hypoxia; E11.319 Type 2 diabetes mellitus with unspecified diabetic retinopathy without macular edema; E11.40 Type 2 diabetes mellitus with diabetic neuropathy, unspecified; E11.51 Type 2 diabetes mellitus with diabetic peripheral angiopathy without gangrene; E78.5 Hyperlipidemia, unspecified; Z89.512 Acquired absence of left leg below knee; Z89.611 Acquired absence of right leg above knee; R77.8 Other specified abnormalities of plasma proteins; I25.2 Old myocardial infarction; I48.0 Paroxysmal atrial fibrillation; M86.9 Osteomyelitis, unspecified; R12 Heartburn; T78.40XA Allergy, unspecified, initial encounter; Z95.1 Presence of aortocoronary bypass graft; I25.10 Atherosclerotic heart disease of native coronary artery without angina pectoris; R91.8 Other nonspecific abnormal finding of lung field; F41.8 Other specified anxiety disorders; Z66 Do not resuscitate; Z86.16 Personal history of COVID-19; Z87.891 Personal history of nicotine dependence; Z79.01 Long term (current) use of anticoagulants; Z79.1 Long term (current) use of non-steroidal anti-inflammatories (NSAID); Z79.02 Long term (current) use of antithrombotics/antiplatelets; Z79.899 Other long term (current) drug therapy
CPT/HCPCS: 36415; 71045; 80053; 80202; 81001; 82565; 82948; 83605; 83735; 84484; 85025; 85610; 85730; 87040; 87086; 87088; 87641; 94640; 96365; 96366; 96375; 99285; A9270; G0378; J0360; J0692; J1815; J3370

== ENCOUNTER 2023-03-26 03:03 | Observation (INO) | payer MEDICARE, OTHER, SELFPAY ==
[2023-03-26] VITALS (51 sets, daily range): BP systolic 138–230; BP diastolic 46–93; PULSE 62–95; RESP 12–24; TEMP 36.1–37; O2SAT 94–100; BMI 50.4
--- NOTE | ~2023-03-26 | XR_ITS ---
EXAMINATION: XR barium swallow modified DATE: 03/27/2023 13:48 INDICATION: Dysphagia. TECHNIQUE: The patient was given barium-containing material of multiple consistencies to swallow by faustino clayton speech pathologist while I performed fluoroscopy. Dose-area product was 1.361 Gy-cm2. 1.5 minutes fluoroscopy time FINDINGS: Oral Stage: Within functional limits Pharyngeal Phase: Mild vallecular and piriform sinus residue Cervical/Esophageal Stage: Within functional limits IMPRESSION: Modified esophagram findings as above. Please refer to the speech therapy report for [facility]. Reviewed, dictated and finalized at [facility]. Reviewed, dictated and finalized at location [facility]. IMPRESSION: Modified esophagram findings as above. Please refer to the speech t herapy report for specific recommendations.
--- NOTE | ~2023-03-26 | CT_ITS ---
EXAMINATION: CT brain wo con DATE: 03/26/2023 19:56 INDICATION: New onset dysphagia. TECHNIQUE: Computed tomography (CT) of the head was performed without intravenous contrast. The mA wa s adjusted according to patient size. Iterative reconstruction technique was employed. The dose-lengt h product was 681.00 mGy-cm. COMPARISON: Head CT 04/01/2022 FINDINGS: There are scattered areas of low attenuation in the cerebral white matter. There is no intr acranial hemorrhage, acute infarction, or abnormal intracranial mass lesion. The ventricles are farida l in size. There are likely changes of ocular lens replacement surgeries. The paranasal sinuses are c lear. The mastoid air cells are normal. IMPRESSION: 1. Stable moderate nonspecific cerebral white matter disease, which likely represents chronic small v essel ischemic disease. Reviewed, dictated and finalized at location E. IMPRESSION: 1. Stable moderate nonspecific cerebral white matter disease, which likely repr esents chronic small vessel ischemic disease.
--- NOTE | ~2023-03-26 | CT_ITS ---
EXAMINATION: CTA brain carotid DATE: 03/26/2023 20:40 INDICATION: New onset dysphagia. TECHNIQUE: Computed tomographic angiography (CTA) of the head was performed without and with 100 mL O mnipaque-350 intravenous contrast. CTA of the neck was performed with intravenous contrast. Automated exposure control and iterative reconstruction technique were employed. The dose-length product was 1 175.29 mGy-cm. Maximum intensity projection and volume rendered 3D-reconstructions were created by kayla colindres technologist on a separate workstation. COMPARISON: Head CT 03/26/2023 FINDINGS: HEAD CTA: There are scattered areas of low attenuation in the cerebral white matter. There is no intr acranial hemorrhage, acute infarction, or abnormal intracranial mass lesion. The ventricles are farida l in size. There are likely changes of ocular lens replacement surgeries. The paranasal sinuses are c lear. The mastoid air cells are normal. Right vertebral artery is dominant. There is moderate stenosi s of intracranial left vertebral artery. There is no significant stenosis of basilar artery or the po sterior cerebral arteries. There is no significant stenosis of the intracranial internal carotid sarah benedicto or anterior or middle cerebral arteries. Anterior communicating artery is normal. There is no an eurysm. NECK CTA: A right internal jugular central venous catheter is seen with tip in the right atrium. Ther e are no pathologically enlarged lymph nodes. There is moderate stenosis of proximal right vertebral artery. There is moderate stenosis of proximal and mid left vertebral artery. There is plaque in the proximal internal carotid arteries. There is 0% stenosis of the proximal right internal carotid arter y relative to normal distal artery lumen diameter (NASCET criteria). There is 0% stenosis of the prox imal left internal carotid artery relative to normal distal artery lumen diameter. There is severe ce rvical spondylosis. IMPRESSION: 1. Moderate nonspecific cerebral white matter disease, which likely represents chronic small vessel i schemic disease. 2. Moderate stenosis of the vertebral arteries. 3. 0% stenosis of the proximal internal carotid arteries relative to normal distal artery lumen diame ters (NASCET criteria). Reviewed, dictated and finalized at location E. IMPRESSION: 1. Moderate nonspecific cerebral white matter disease, which likely represents chronic small vessel ischemic disease. 2. Moderate stenosis of the vertebral arteries. 3. 0% stenosis of the proximal internal carotid arteries relative to normal dis rich artery lumen diameters (NASCET criteria).
--- NOTE | ~2023-03-26 | XR_ITS ---
Portable chest x-ray Comparison: 03/23/2023 Clinical History: Dyspnea Findings: Right-sided central venous line is unchanged. There is probable mild central congestive ch sravanthi and minimal interstitial edema. Cardiomediastinal silhouette is stable. Bones and soft tissues are unremarkable. Impression: Mild central congestive change and minimal interstitial edema. Stable support line. Reviewed, dictated and finalized at location . Impression: Mild central congestive change and minimal interstitial edema. Stable support line.
--- NOTE | 2023-03-26 03:14 | ECG_ITS ---
Measurements Intervals [place] Rate: 75 P: 49 UT: 167 QRS: -84 QRSD: 158 T: 64 QT: 448 QTc: 503 Interpretive Statements SINUS RHYTHM WITH OCCASIONAL SUPRAVENTRICULAR PREMATURE COMPLEXES MARKED LEFT AXIS DEVIATION [QRS AXIS < -30] RIGHT BUNDLE BRANCH BLOCK [120+ ms QRS DURATION, UPRIGHT V1, 40+ ms S IN I/aVL/V4/V5/V6] NONSPECIFIC ST CHANGE POSSIBLE OLD sEPTAL MYOCARDIAL INFARCTION COMPARED TO THE PRIOR TRACING: NO SIGNIFICANT CHANGE Electronically Signed On 03-26-2023 19:53:08 CDT by Abril Vance M.D.
[2023-03-26] MEDS: NITROGLYCERIN SL 0.4 MG TABLET SUBLINGUAL (03:23)
[2023-03-26 03:28] LABS: Basophils Percent Auto 0.7 % (0.2-1.2); Eosinophils Absolute Auto 0.4 K/mm3 (0-0.3); Eosinophils Percent Auto 6.7 % (0-4.4); Hematocrit 33.7 % (37.0-47.0); Hemoglobin 10.4 g/dL (12.0-15.0); Immature Granulocyte Absolute 0.02 K/mm3 (0.00-0.031); Immature Granulocyte Percent A 0.4 % (0-0.5); Lymphocytes Absolute Auto 1.01 K/mm3 (0.9-3.2); Lymphocytes Percent Auto 17.8 % (18.3-44.2); Mean Corpuscular HGB Conc 30.9 g/dl (32-36); Mean Corpuscular Hemoglobin 31.7 pg (26-34); Mean Corpuscular Volume 102.7 fl (80-100); Mean Platelet Volume 12.7 fl (7.4-10.4); Monocytes Absolute Auto 0.4 K/mm3 (0.1-0.6); Monocytes Percent Auto 7.2 % (2.6-8.5); Neutrophils Absolute Auto 3.8 K/mm3 (1.3-6.7); Neutrophils Percent Auto 67.2 % (45.5-73.1); Platelet Count Result 122 k/mm3 (150-375); Red Blood Count 3.28 M/mm3 (4.2-5.4); Red Cell Distribution Width 13.8 % (11.5-14.5); White Blood Count 5.7 K/mm3 (4.5-10.0)
--- NOTE | 2023-03-26 03:33 | ED.GENADULT ---
HPI - General Adult General Chief complaint: Shortness of Breath/Dyspnea Stated complaint: SOB Time Seen by Provider: 03/26/23 03:10 History of Present Illness HPI narrative: Patient is a 72-year-old female who presents the emergency department with chief complaint of shortness of breath and chest pain. Patient was just in the hospital and discharged yesterday the patient is end-stage renal disease on dialysis Saturday the patient states that she started getting more short of breath since she left the hospital and EMS found her to be saturating at 74% on room air the patient was transported from [place] to our facility patient also reports that her blood pressures been running high. Related Data Home Medications Medication Instructions Recorded Confirmed apixaban 5 mg tablet (Eliquis) 5 mg PO BID 11/03/19 03/24/23 insulin degludec 100 unit/mL 15 unit subcut HS 11/03/19 03/24/23 subcutaneous solution (Tresiba U-100 Insulin) pravastatin 40 mg tablet 40 mg PO HS 11/03/19 03/24/23 cetirizine 10 mg tablet 10 mg PO DAILY PRN allergies 02/06/22 03/24/23 insulin aspart U-100 100 unit/mL 8 unit subcut TIDWMEAL 02/28/22 03/24/23 (3 mL) subcutaneous pen (Novolog FlexPen U-100 Insulin aspart) pantoprazole 40 mg tablet,delayed 40 mg PO DAILY Heartburn 02/28/22 03/24/23 release acetaminophen 500 mg capsule 1,000 mg PO Q6H PRN Pain 01/10/23 03/24/23 calcium carbonate 300 mg (750 mg) 2 tablet PO DAILY PRN Indigestion 01/10/23 03/24/23 chewable tablet (Tums E-X) nifedipine 30 mg tablet,extended 30 mg PO .MONWEDFRISUN 02/20/23 03/24/23 release Allergies Allergy/AdvReac Type Severity Reaction Status Date / Time No Known Allergies Allergy Verified 03/04/23 23:56 Review of Systems Review of Systems: A 10 system review of systems was completed on the patient and is negative except for what is stated in the HPI. Nursing and ancillary documentation was reviewed. [facility] Past Medical History Medical History Anxiety with depression Arterial vascular disease Chronic anemia Coronary artery disease COVID Digital arterial occlusive disease End-stage renal disease on hemodialysis Saturday, , Saturday. 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 Hemoglobin A1c was 6.8% in February 2020. NSTEMI (non-ST elevated myocardial infarction) Osteomyelitis Paroxysmal atrial fibrillation Peripheral vascular disease Renal osteodystrophy Thrombocytopenia Surgical History Surgical History Amputation of right forefoot Right 4th and 5th ray amputation in 04/2017. Right foot transmetatarsal amputation with partial fasciotomy due to wet gangrene, osteomyelitis, and necrotizing fasciitis in May 2017. 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 History of below-knee amputation of both lower extremities Left pwonc-vri-wkeo amputation in 2017. Right zhokz-tvb-whxl amputation in 02/2020. 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 History of vascular surgery Right lower extremity stents in March 2017. Left lower extremity stent in 2014. Family History Family History Mother Diabetes mellitus Father Lung cancer Acute myocardial infarction Sibling Diabetes mellitus Social History Social History Social History:
[2023-03-26 03:39] LABS: INR 1.2; Lactic Acid Reflex 1.4 mmol/L (0.7-2.0); Prothrombin Time 16.1 Seconds (11.1-14.7)
[2023-03-26 03:41] LABS: Alanine Aminotransferase 17 U/L (6-35); Albumin Level 3.7 g/dL (3.5-5.1); Alkaline Phosphatase 121 U/L (38-126); Anion Gap 10 mmol/L (8-16); Aspartate Amino Transferase 20 U/L (14-36); Bilirubin,Total 0.6 mg/dL (0.2-1.3); Blood Urea Nitrogen 50 mg/dL (7-17); Calcium 7.9 mg/dL (8.4-10.2); Carbon Dioxide 29 mmol/L (22-30); Chloride 98 mmol/L (98-107); Estimated CRCL calculation 7 ml/min; Estimated Glomerular Filt Rate 6; Glucose 241 mg/dL (65-110); Magnesium 2.2 mg/dL (1.6-2.3); Partial Thromboplastin Time 35.4 SECONDS (22.3-36.8); Potassium 4.6 mmol/L (3.4-5.0); Sodium 137 mmol/L (137-145)
[2023-03-26 03:53] LABS: Troponin I 0.292 ng/mL (0.000-0.034)
[2023-03-26 04:07] LABS: Influenza A QL RT-PCR Negative (Negative); Influenza B QL RT-PCR Negative (Negative); SARS-CoV-2 RNA PCR Negative (Negative)
[2023-03-26] MEDS: NITROGLYCERIN OINTMENT 1 INCH DOSE TRANSDERM (04:17)
[2023-03-26] MEDS: ASPIRIN 81 MG CHEWABLE TABLET 324 MG PO (04:55)
--- NOTE | 2023-03-26 05:04 | ADMGEN ---
This patient, Tawana Prado, was admitted to IMU Room 211-01. Patient/family oriented to hospital policies and general routines including ID bracelet, bed and alarms, visiting hours, pain management, procedures, bathroom and other care routines, personal items, smoking policy, room service/diet, and visiting hours. Information on how to activate the Rapid Response Team has been discussed. Patient/Family are encouraged to report perceived risks to care and to ask questions if they do not understand what they are told or what they should do.
[2023-03-26 08:36] LABS: Troponin I 0.309 ng/mL (0.000-0.034)
[2023-03-26 09:33] LABS: Hepatitis B Surface Antigen Negative (Negative)
[2023-03-26 10:53] LABS: Troponin I 0.322 ng/mL (0.000-0.034)
--- NOTE | 2023-03-26 12:45 | PC.NURSE ---
Pt to dialysis via bed.
[2023-03-26 12:47] LABS: Hepatitis B Surface Anti Res Indeterminate
[2023-03-26] MEDS: HEPARIN SODIUM 1,000 UNITS/ML VIAL 1000 UNITS IV PUSH (12:57)
[2023-03-26] MEDS: HEPARIN SODIUM 1,000 UNITS/ML VIAL 500 UNITS IV PUSH ×4 (13:00→16:25)
--- NOTE | 2023-03-26 13:21 | PM.IMHP ---
H&P: HPI History of Present Illness Date/Time: 03/26/23 13:21 Chief Complaint: Patient is a 72-year-old female who presents the emergency department with chief complaint of shortness of breath and chest pain.? Patient was just in the hospital and discharged yesterday the patient is end-stage renal disease on dialysis Saturday the patient states that she started getting more short of breath since she left the hospital and EMS found her to be saturating at 74% on room air the patient was transported from [place] to our facility patient also reports that her blood pressures been running high. Review of Systems Review of Systems: As per HPI. [facility] Past Medical History Medical History Anxiety with depression Arterial vascular disease Chronic anemia Coronary artery disease COVID Digital arterial occlusive disease End-stage renal disease on hemodialysis Saturday, , Saturday. 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 Hemoglobin A1c was 6.8% in February 2020. NSTEMI (non-ST elevated myocardial infarction) Osteomyelitis Paroxysmal atrial fibrillation Peripheral vascular disease Renal osteodystrophy Thrombocytopenia Surgical History Surgical History Amputation of right forefoot Right 4th and 5th ray amputation in 04/2017. Right foot transmetatarsal amputation with partial fasciotomy due to wet gangrene, osteomyelitis, and necrotizing fasciitis in May 2017. 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 History of below-knee amputation of both lower extremities Left [id number] amputation in 2017. Right iobah-ozy-wiek amputation in 02/2020. 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 History of vascular surgery Right lower extremity stents in March 2017. Left lower extremity stent in 2014. Family History Family History Mother Diabetes mellitus Father Lung cancer Acute myocardial infarction Sibling Diabetes mellitus Social History Social History Social History: Surrogate medical decision maker: Kierra Gonzalesquez (sister) or Cyndi Gonzalesquez (daughter). Code status: DNR/DNI Smoking packs per day: 1 Smoking cigarettes per day: 20.0 Years smoked: 40 Smoking pack-years: 40.00 Smoking status: Never smoker Tobacco type: cigarettes Second hand tobacco smoke exposure: No Smoking end date: 02/27/23 Additional smoking assessment comments: 4 daily currently Alcohol intake: never Drinks per week: 1 Alcohol use details: Previous social drinker. Substance use: never Substance use type: does not use Other substance usage details: occasional marijuana Lack of Transportation: No Lack of Food: Never True Current Housing: I Have Housing Concerned About Future Housing: No Difficulty Paying Gas/Electric Bills: No Difficulty Paying for Meds: No Currently Unemployed: No Education: High School Diploma/GED Difficulty w/ Childcare or Family Care: No Living arrangements: with family Additional living arrangements comments: . She has a son and a daughter. Lives in [place]. Sister lives with her. She is wheelchair dependent due to bilateral above the knee amputations. Spiritual care concerns: No Meds Home Medications and Allergies Home Medications Medication Instructi
--- NOTE | 2023-03-26 13:40 | PM.CNCAR ---
Assessment and Plan Assessment and plan (1) Elevated troponin: Code(s): R77.8 - Other specified abnormalities of plasma proteins <Alisa Montez BRENDON Henderson - Last Filed: 03/26/23 17:54> Status: Acute <Alisa HendersonBRENDON - Last Filed: 03/26/23 17:54> Assessment and Plan: Her troponin levels are elevated, though lower than they were during her admission at the end of February. Since she has had a very recent coronary angiogram, there is no indication for any further ischemic workup at this time. Recommendation has been for outpatient follow-up for consideration for high risk PCI with her primary oxygen system tester, Dr. Blackwood at [facility], but patient has not followed up. We may want to consider inpatient transfer for this since the patient has failed to follow up as an outpatient and has recurrent symptoms, and we do not plan to intervene on her CAD at this hospital. <BRENDON Riley - Last Filed: 03/26/23 17:54> (2) Coronary artery disease: Code(s): I25.10 - Atherosclerotic heart disease of [place] coronary artery without angina pectoris <BRENDON Riley - Last Filed: 03/26/23 17:54> Status: Acute <BRENDON Riley - Last Filed: 03/26/23 17:54> Assessment and Plan: As above. Continue Plavix, statin, beta keith. Not on ASA as she is also on apixaban because of PAF <BRENDON Riley - Last Filed: 03/26/23 17:54> (3) Peripheral vascular disease: Code(s): I73.9 - Peripheral vascular disease, unspecified <BRENDON Riley - Last Filed: 03/26/23 17:54> Status: Acute <BRENDON Riley - Last Filed: 03/26/23 17:54> Assessment and Plan: Continue statin <BRENDON Riley - Last Filed: 03/26/23 17:54> (4) Benign hypertension with ESRD (end-stage renal disease): Code(s): I12.0 - Hypertensive chronic kidney disease with stage 5 chronic kidney disease or end stage renal disease; N18.6 - End stage renal disease <BRENDON Riley - Last Filed: 03/26/23 17:54> Status: Acute <BRENDON Riley - Last Filed: 03/26/23 17:54> Assessment and Plan: Significantly elevated on admission, but improving. <BRENDON Riley - Last Filed: 03/26/23 17:54> (5) End stage renal disease on dialysis: Code(s): N18.6 - End stage renal disease; Z99.2 - Dependence on renal dialysis <BRENDON Riley - Last Filed: 03/26/23 17:54> Status: Acute <BRENDON Riley - Last Filed: 03/26/23 17:54> Assessment and Plan: On dialysis. <BRENDON Riley - Last Filed: 03/26/23 17:54> (6) Atrial fibrillation: Code(s): I48.91 - Unspecified atrial fibrillation <BRENDON Riley - Last Filed: 03/26/23 17:54> Status: Acute <BRENDON Riley - Last Filed: 03/26/23 17:54> Assessment and Plan: On a/c with apixaban <BRENDON Riley - Last Filed: 03/26/23 17:54> History of Present Illness History of Present Illness Consult date/time: 03/26/23 13:40 <BRENDON Riley - Last Filed: 03/26/23 17:54> Requesting physician: Gilbert Bryant MD <BRENDON Riley - Last Filed: 03/26/23 17:54> Consult reason: chest pain and Other (elevated troponin) <BRENDON Riley - Last Filed: 03/26/23 17:54> Reason For Visit: Dyspnea, Elevated Troponin, ESRD on HD <BRENDON Riley - Last Filed: 03/26/23 17:54> Narrative: Tawana Prado is a 72 year old female with coronary artery disease [place] CAB[place] [address] Alexander, peripheral arterial disease s/p prior intervention, history of bilateral lower extremity amputation, paroxysmal atrial fibrillation on Eliquis, ESRD on hemodialysis, hypertension, hyperlipidemia, insulin dependent diabetes. She has been hospitalized here at [facility] numerous times recently with complaints of shortness of breath and chest pain. On 02/28/2023 she underwent left heart ca
--- NOTE | 2023-03-26 14:01 | PM.CNNEP ---
Assessment and Plan Assessment and plan (1) End stage renal disease: Status: Chronic Assessment and Plan: HD today continue T/T/S dialysis schedule while hospitalized follow electrolytes, volume status, and clearance (2) Chest pain: Qualifiers: Chest pain type: unspecified Qualified Code(s): R07.9 - Chest pain, unspecified Code(s): R07.9 - Chest pain, unspecified Status: Acute Assessment and Plan: no further episodes since admission follow telemetry and repeat troponins recent cardiac catheterization results noted (02/28/23) -- ultimately, needs to follow-up with her primary church history teacher (3) Shortness of breath: Code(s): R06.02 - Shortness of breath Status: Acute Assessment and Plan: likely related to several issues: mild pulmonary edema chest pain underlying history of COPD recent diagnosed pneumonia admission CXR noted fluid removal/ultrafiltration as tolerated with dialyiss follow respiratory status (4) Hypertension: Status: Chronic Assessment and Plan: quite elevated at this time resumed home medications may need to add PRN medications as well follow trend of hemodynamics post-HD (5) Anemia: Status: Chronic Assessment and Plan: due to ESRD at goal Epogen with HD if Hgb < 10 follow trend of H/H (6) Insulin dependent type 2 diabetes mellitus: Status: Chronic Assessment and Plan: follow accuchecks glycemic control per hospitalists I will continue follow the patient with you while she remains hospitalized make further recommendations during her hospital course. Thank you for allowing me to participate in the care of this patient. History of Present Illness Reason for Consult Consult date: 03/26/23 Reason for consult: end stage renal disease Chief Complaint Chief complaint: Dyspnea, Elevated Troponin, ESRD on HD History of Present Illness Narrative: The patient is a 72-year-old female with a past medical history as outlined below who presented to [facility] Emergency Room with complaints of chest pain and shortness of breath. The patient was just recently admitted and discharged from [facility] the day before yesterday. She was reportedly treated for what appeared to be a right lower lobe pneumonia with IV antibiotic therapy and was subsequent transition to oral antibiotic therapy by the time of discharge. Apparently, after discharge, she reports kidney more short of breath that continued to progressively worsen. This shortness of breath was associated with on and off chest discomfort as well. EMS was called and at the time of their arrival, she was reporting satting 74% on room air. She also reports that her blood pressure has been running extremely high although I had I am unclear if she has been compliant with her home blood pressure medications. She was subsequently transferred to the emergency room for further assessment of these symptoms. Workup and evaluation emergency room demonstrated the patient be quite hypertensive and her hypoxia was confirmed. Routine labs were consistent with her known history of end-stage renal disease and her chest x-ray shows some mild interstitial edema/pulmonary vascular congestion. Given her chest discomfort as well as her elevated blood pressure, she was treated with sublingual nitroglycerin which improved the symptoms and her oxygen requirements improved and she was weaned down to 1 L of oxygen by nasal cannula. Other labs that were drawn did show a mildly elevated troponin but no where nearly as elevated as on previous hospitalizations. Given her somewhat complex medical history and her laboratory and objective findings, she was admitted the hospital for further evaluation therapy. Renal consultation was requested due to her end-stage renal disease. The patient is quite familiar to me as I have taking care of her
[2023-03-26] MEDS: HEPARIN SODIUM 1,000 UNITS/ML VIAL 5000 UNITS IV PUSH (16:47)
--- NOTE | 2023-03-26 16:52 | PC.NURSE ---
Pt reutnred from dialysis via bed, with no issues noted.
[2023-03-26] MEDS: ISOSORBIDE MONONITRATE 30 MG TAB.ER.24H PO (16:54)
[2023-03-26] MEDS: APIXABAN 5 MG TABLET PO (16:54)
[2023-03-26] MEDS: PANTOPRAZOLE 40 MG TABLET PO (16:54)
[2023-03-26] MEDS: LOSARTAN POTASSIUM 100 MG TABLET PO (16:54)
[2023-03-26] MEDS: carvediloL 12.5 MG TABLET PO (16:54)
[2023-03-26] MEDS: CLOPIDOGREL BISULFATE 75 MG TABLET PO (16:54)
[2023-03-26] MEDS: SEVELAMER CARBONATE 800 MG TABLET PO (16:54)
[2023-03-26] MEDS: INSULIN ASPART (*BKC) 100 UNITS/ML 8 UNITS SUB-Q (16:55)
[2023-03-26] MEDS: AMOXICILLIN/CLAVULANATE K 500-125 MG TAB 1 TABLET PO (16:55)
[2023-03-26 17:09] LABS: Glucose Point of Care 117 mg/dl (65-105)
--- NOTE | 2023-03-26 18:38 | PC.NURSE ---
This patient, Tawana Prado, was transferred to [[facility] ] on 03/26/23 at 1838. Personal belongings sent with patient. Report given to [ALVARO Hoyos @ [phone] ]. Appropriate documentation sent with patient.
--- NOTE | 2023-03-26 19:14 | ECG_ITS ---
Measurements Intervals Ione Rate: 70 P: 50 MO: 174 QRS: 212 QRSD: 146 T: -82 QT: 439 QTc: 477 Interpretive Statements SINUS RHYTHM INDETERMINATE AXIS RIGHT BUNDLE BRANCH BLOCK [120+ ms QRS DURATION, UPRIGHT V1, 40+ ms S IN I/aVL/V4/V5/V6] MODERATE T-WAVE ABNORMALITY, CONSIDER INFERIOR AND LATERAL ISCHEMIA [-0.1+ mV T WAVE IN I/aVL/V5/V6] COMPARED TO ECG 03/26/2023 03:08:[address] CHANGES ARE MORE PRONOUNCED Electronically Signed On 03-26-2023 20:07:27 CDT by Abril Vance M.D.
[2023-03-26 19:20] LABS: Glucose Point of Care 84 mg/dl (65-105)
[2023-03-26] MEDS: DEXTROSE 50% 25 GM/50 ML SYRINGE IV PUSH ×3 (19:42→22:52)
[2023-03-26 19:52] LABS: Glucose Point of Care 70 mg/dl (65-105)
[2023-03-26 19:52] LABS: Glucose Point of Care 305 mg/dl (65-105)
[2023-03-26 20:54] LABS: Basophils Percent Auto 0.7 % (0.2-1.2); Eosinophils Absolute Auto 0.2 K/mm3 (0-0.3); Eosinophils Percent Auto 5.6 % (0-4.4); Hematocrit 30.9 % (37.0-47.0); Hemoglobin 9.5 g/dL (12.0-15.0); Immature Granulocyte Absolute 0.01 K/mm3 (0.00-0.031); Immature Granulocyte Percent A 0.2 % (0-0.5); Lymphocytes Absolute Auto 1.11 K/mm3 (0.9-3.2); Lymphocytes Percent Auto 25.8 % (18.3-44.2); Mean Corpuscular HGB Conc 30.7 g/dl (32-36); Mean Corpuscular Hemoglobin 31.6 pg (26-34); Mean Corpuscular Volume 102.7 fl (80-100); Mean Platelet Volume 11.9 fl (7.4-10.4); Monocytes Absolute Auto 0.4 K/mm3 (0.1-0.6); Monocytes Percent Auto 8.1 % (2.6-8.5); Neutrophils Absolute Auto 2.6 K/mm3 (1.3-6.7); Neutrophils Percent Auto 59.6 % (45.5-73.1); Platelet Count Result 113 k/mm3 (150-375); Red Blood Count 3.01 M/mm3 (4.2-5.4); Red Cell Distribution Width 13.9 % (11.5-14.5); White Blood Count 4.3 K/mm3 (4.5-10.0)
[2023-03-26 21:07] LABS: INR 1.5; Prothrombin Time 18.9 Seconds (11.1-14.7)
[2023-03-26 21:08] LABS: Partial Thromboplastin Time 39.1 SECONDS (22.3-36.8)
[2023-03-26 21:13] LABS: Alanine Aminotransferase 14 U/L (6-35); Albumin Level 3.1 g/dL (3.5-5.1); Alkaline Phosphatase 94 U/L (38-126); Anion Gap 7 mmol/L (8-16); Aspartate Amino Transferase 19 U/L (14-36); Bilirubin,Total 0.5 mg/dL (0.2-1.3); Blood Urea Nitrogen 18 mg/dL (7-17); Calcium 7.7 mg/dL (8.4-10.2); Carbon Dioxide 25 mmol/L (22-30); Chloride 104 mmol/L (98-107); Estimated Glomerular Filt Rate 14; Glucose 135 mg/dL (65-110); Phosphorus 3.8 mg/dL (2.5-4.5); Potassium 3.8 mmol/L (3.4-5.0); Sodium 136 mmol/L (137-145)
[2023-03-26 21:20] LABS: Troponin I 0.279 ng/mL (0.000-0.034)
[2023-03-26 21:59] LABS: Glucose Point of Care 102 mg/dl (65-105)
[2023-03-26 22:48] LABS: Glucose Point of Care 77 mg/dl (65-105)
--- NOTE | 2023-03-26 23:12 | P.PNCROSS_ITS ---
Event Note Event Note Event Note: LNK: 18:45 Discovery of Symptoms: 19:14 Call from tobacco sampler: 19:23 Stroke Page: 19:39 Patient was transferred from the IMU to room 307-1. RN transferred patient around 18:45 with glucose of 80. patient did not have any deficits at that time, normal appearing, and no dysarthria. Global Director [employer] And Climate Change came to bedside to assess patient shortly after and noted that she had new dysarthria, diaphoresis, alteration around 19:14. tracer lathe set up operator ordered a stat head CT, non-con and an EKG. Rapid NIHSS performed, total of 6. +nystagmus. Code Stoke paged at 19:39. POC glucose reassessed, now 70. EKG obtained. Due to diaphoresis and glucose dropped, given Dextrose 25G. Repeat BS 305 (19:47) and diaphoresis resolved. Patient expedited to scanner for head CT. Dysarthria persistent despite D50. Head CT: Stable moderate nonspecific cerebral white matter disease, which likely represents chronic small vessel ischemic disease. CTA ordered and [employer] called. Connected with Blanca Armstrong MD (neurology at [facility]). Per consultation, low suspicion for acute CVA given diaphoresis and non-focal deficits. Continue with tox w/u and MRI. Stat labs ordered: CBC, CMP, Mag, coags. If CTA abnormal, call for further instructions. CTA brain and carotid: 1. Moderate nonspecific cerebral white matter disease, which likely represents chronic small vessel ischemic disease. 2. Moderate stenosis of the vertebral arteries. 3. 0% stenosis of the proximal internal carotid arteries relative to normal distal artery lumen diameters (NASCET criteria). MRI brain and brainstem ordered. Labs showed chronic anemia, hypocalcemia 7.7 (7.9 prior) w/normal phos and hypoalbuminemia 3.1. Corrected calcium due to hypoalbuminemia 8.5. Repeat BS 102 at 21:54 and 77 at 22:43. Patient again became diaphoretic more lethargic around 22:43 prompting glucose recheck. Given dextrose 12.5 G. Reasess in 1 hr - 169. Q2H glucose checks. Back to bedside to reasess patient given recurrent diaphoresis and decreased POC glucose. No longer diaphoretic. regarding and more alert than original assessment. dysarthria is persistent. will consult neurology for further recommendations. BS now 118 at 00:07. Will hold Lantus 15 units HS, has not been given today (03/26) and novolog 8 units SQ TIDWM. Correct Mod dose remains in place. adding D5LR at 100 mL/hr x 600 mL. Initial NIHSS 1a: Level of Consciousness - 0 1b: LOC Questions - 0 1c:?LOC Tasks - 1 2:?Best Gaze - 0 3:?Visual?Rosario - 1, R side 4: Facial Palsy - 1, R facial droop 5a: Motor Arm?R - 1 5b: Motor Arm L - 0 6a:?Motor Leg R - 0, +5 resistance with downward pressure against thigh 6a:?Motor Leg L - 0, +5 resistance with downward pressure against thigh 7: Limb Ataxia - 0 8: Sensation - 0 9:?Language/Aphasia - 0 10:?Dysarthria?- 1, dysarthria with intelligible words 11: Extinction and Inattention - 1, extinction correct when assessing LE and UE, incorrect when facial extinction assessed Total: 6 Critical Care Time: I personally spent 80 minutes of direct patient care including (but not limited to) the physical examination, decision-making, bedside evaluation, review of medical records, review of labs and imaging, discussion with nursing staff and other providers for collaborative, critical care management of this patient.
[2023-03-26 23:16] LABS: Glucose Point of Care 169 mg/dl (65-105)
[2023-03-27] VITALS (7 sets, daily range): BP systolic 146–210; BP diastolic 40–94; PULSE 64–72; RESP 16–20; TEMP 36.1–36.6; O2SAT 95–99
[2023-03-27 00:10] LABS: Glucose Point of Care 118 mg/dl (65-105)
[2023-03-27] MEDS: DEXTROSE 5%/LACTATED RINGERS 1,000 ML 100 ML IV CONT (01:05)
[2023-03-27 06:32] LABS: Glucose Point of Care 117 mg/dl (65-105)
[2023-03-27 06:38] LABS: Troponin I 0.236 ng/mL (0.000-0.034)
[2023-03-27] MEDS: carvediloL 12.5 MG TABLET PO ×2 (08:51→17:45)
[2023-03-27] MEDS: SEVELAMER CARBONATE 800 MG TABLET PO ×2 (08:51→17:45)
[2023-03-27] MEDS: AMOXICILLIN/CLAVULANATE K 500-125 MG TAB 1 TABLET PO ×2 (08:51→17:44)
[2023-03-27] MEDS: LOSARTAN POTASSIUM 100 MG TABLET PO (09:03)
[2023-03-27] MEDS: APIXABAN 5 MG TABLET PO ×2 (09:03→17:45)
[2023-03-27] MEDS: PANTOPRAZOLE 40 MG TABLET PO (09:03)
[2023-03-27] MEDS: CLOPIDOGREL BISULFATE 75 MG TABLET PO (09:04)
[2023-03-27] MEDS: NIFEdipine 30 MG TAB.ER.24 PO ×2 (09:04→20:16)
[2023-03-27] MEDS: ISOSORBIDE MONONITRATE 30 MG TAB.ER.24H PO (09:04)
--- NOTE | 2023-03-27 10:17 | PCSTNOTE ---
Please refer to the Bedside Swallow Evaluation in the EMR. Please note, silent aspiration cannot be ruled out at bedside.
--- NOTE | 2023-03-27 10:48 | PC.NURSE ---
spoke to MRI, patient had bilateral femur stents placed in 2017, they are likely too long to do the MRI. family does not have any of the information regarding the stents, daughter Cyndi stated that Tawana sees Dr Blackwood at [facility] heart and vascular. Dr Vance would like us to request records from them. printing release form for patient to sign for release of information.
[2023-03-27 11:37] LABS: Glucose Point of Care 121 mg/dl (65-105)
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
--- NOTE | 2023-03-27 13:46 | P.PNNP_ITS ---
Progress Note: A&P Assessment and Plan (1) End stage renal disease: Code(s): N18.6 - End stage renal disease Status: Chronic Assessment and Plan: * HD tomorrow * continue T/T/S dialysis schedule * follow electrolytes, volume status, and clearance (2) Chest pain: Qualifiers: Chest pain type: unspecified Qualified Code(s): R07.9 - Chest pain, unspecified Code(s): R07.9 - Chest pain, unspecified Status: Acute Assessment and Plan: * no further episodes since admission * follow telemetry and repeat troponins * recent cardiac catheterization results noted (02/28/23) -- ultimately, needs to follow-up with her primary supervisor covering and lining (3) Shortness of breath: Code(s): R06.02 - Shortness of breath Status: Acute Assessment and Plan: * likely related to several issues: * mild pulmonary edema * chest pain * underlying history of COPD * recent diagnosed pneumonia * admission CXR noted * fluid removal/ultrafiltration as tolerated with dialyiss * follow respiratory status (4) Hypertension: Status: Chronic Assessment and Plan: * can be quite erratic at times * resumed on home medications; adjust/titrate as needed * follow trend of hemodynamics (5) Anemia: Status: Chronic Assessment and Plan: * due to ESRD * at goal * Epogen with HD when Hgb < 10 * follow trend of H/H (6) TIA (transient ischemic attack): Code(s): G45.9 - Transient cerebral ischemic attack, unspecified Status: Acute Assessment and Plan: * dysarthria resolving * CT head and CTA unremarkabl; further imaging noted * continue Plavix and Statin * PT/OT/ST * Neurology following (7) Insulin dependent type 2 diabetes mellitus: Status: Chronic Assessment and Plan: * follow accuchecks * glycemic control per hospitalists Will continue to follow. Subjective Date/time seen: 03/27/23 13:46 Interval history: Follow-up for end stage renal disease on hemodialysis. Tolerated dialysis treatment yesterday without any issues or problems; noted events overnight with associated slurred speech and lethargy with subsequent evaluation and testing done; seems back to baseline at this time. Exam Narrative: General: elderly female in NAD Heart: normal S1 and S2; no rub Lungs: clear anteriorly; decreased at bases Abdomen: soft, nontender, nondistended, positive bowel sounds Extremities: no cyanosis or clubbing; no edema; s/p left BKA and right AKA Skin: warm and dry Objective Data Vital Signs Vital Signs: Vital Signs Temp Pulse Resp BP Pulse Ox O2 Del Method 03/27/23 08:00 Room Air 03/27/23 08:51 69 03/27/23 06:00 97.2 F L 69 16 181/62 H 96 03/27/23 01:45 97 F L 64 16 183/57 H 99 03/26/23 20:00 Room Air 03/26/23 22:35 97.2 F L 67 16 99 03/26/23 20:35 97.0 F L 75 16 157/68 H 98 03/26/23 20:20 96.9 F L 70 14 180/72 H 96 03/26/23 20:07 96.9 F L 73 12 201/84 H 99 03/26/23 22:35 67 183/65 H 03/26/23 20:07 96.9 F L 73 12 201/84 H 99 Room Air 03/26/23 19:32 97.5 F L 72 18 205/93 H 100 Room Air 03/26/23 18:45 97.5 F L 72 18 153/73 H 100 03/26/23 17:15 98.3 F 95 18 188/89 H 96
--- NOTE | 2023-03-27 13:46 | PM.PNNEP ---
Progress Note: A&P Assessment and Plan (1) End stage renal disease: Code(s): N18.6 - End stage renal disease Status: Chronic Assessment and Plan: HD tomorrow continue T/T/S dialysis schedule follow electrolytes, volume status, and clearance (2) Chest pain: Qualifiers: Chest pain type: unspecified Qualified Code(s): R07.9 - Chest pain, unspecified Code(s): R07.9 - Chest pain, unspecified Status: Acute Assessment and Plan: no further episodes since admission follow telemetry and repeat troponins recent cardiac catheterization results noted (02/28/23) -- ultimately, needs to follow-up with her primary registered dental assistant (3) Shortness of breath: Code(s): R06.02 - Shortness of breath Status: Acute Assessment and Plan: likely related to several issues: mild pulmonary edema chest pain underlying history of COPD recent diagnosed pneumonia admission CXR noted fluid removal/ultrafiltration as tolerated with dialyiss follow respiratory status (4) Hypertension: Status: Chronic Assessment and Plan: can be quite erratic at times resumed on home medications; adjust/titrate as needed follow trend of hemodynamics (5) Anemia: Status: Chronic Assessment and Plan: due to ESRD at goal Epogen with HD when Hgb < 10 follow trend of H/H (6) TIA (transient ischemic attack): Code(s): G45.9 - Transient cerebral ischemic attack, unspecified Status: Acute Assessment and Plan: dysarthria resolving CT head and CTA unremarkabl; further imaging noted continue Plavix and Statin PT/OT/ST Neurology following (7) Insulin dependent type 2 diabetes mellitus: Status: Chronic Assessment and Plan: follow accuchecks glycemic control per hospitalists Will continue to follow. Subjective Date/time seen: 03/27/23 13:46 Interval history: Follow-up for end stage renal disease on hemodialysis. Tolerated dialysis treatment yesterday without any issues or problems; noted events overnight with associated slurred speech and lethargy with subsequent evaluation and testing done; seems back to baseline at this time. Exam Narrative: General: elderly female in NAD Heart: normal S1 and S2; no rub Lungs: clear anteriorly; decreased at bases Abdomen: soft, nontender, nondistended, positive bowel sounds Extremities: no cyanosis or clubbing; no edema; s/p left BKA and right AKA Skin: warm and dry Objective Data Vital Signs Vital Signs: Vital Signs Temp Pulse Resp BP Pulse Ox O2 Del Method 03/27/23 08:00 Room Air 03/27/23 08:51 69 03/27/23 06:00 97.2 F L 69 16 181/62 H 96 03/27/23 01:45 97 F L 64 16 183/57 H 99 03/26/23 20:00 Room Air 03/26/23 22:35 97.2 F L 67 16 99 03/26/23 20:35 97.0 F L 75 16 157/68 H 98 03/26/23 20:20 96.9 F L 70 14 180/72 H 96 03/26/23 20:07 96.9 F L 73 12 201/84 H 99 03/26/23 22:35 67 183/65 H 03/26/23 20:07 96.9 F L 73 12 201/84 H 99 Room Air 03/26/23 19:32 97.5 F L 72 18 205/93 H 100 Room Air 03/26/23 18:45 97.5 F L 72 18 153/73 H 100 03/26/23 17:15 98.3 F 95 18 188/89 H 96 Intake/Output Intake/Output: Intake & Output 03/24/23 03/25/23 03/26/23 03/27/23 23:59 23:59 23:59 23:59 Intake Total 600 50 Output Total 2650 Balance -2049 50 Meds/Results Medications: Active Medications Generic Name Dose Route Start Last Admin Trade Name Freq PRN Reason Stop Dose Admin Acetaminophen 1,000 mg 03/26/23 13:18 Acetaminophen 500 Mg Tablet PO Q6H PRN Pain Amoxicillin/Clavulanate Potassium 1 tablet 03/26/23 17:00 03/27/23 08:51 Amoxicillin/Clavulanate K 500-125 Mg Tab PO 04/03/23 08:01 1 tablet BIDWM KEMI Administration Apixaban 5 mg 03/26/23 17:00 03/27/23 09:03 Apixaban 5 Mg Tablet PO 5 mg BID
--- NOTE | 2023-03-27 14:33 | PM.IMPN ---
Progress Note: A&P Assessment and Plan (1) Fluid overload: Code(s): E87.70 - Fluid overload, unspecified Status: Acute Assessment and Plan: This is likely the source of her elevated blood pressure and also her shortness of breath. Renal consult for hemodialysis (2) End stage renal disease on dialysis: Code(s): N18.6 - End stage renal disease; Z99.2 - Dependence on renal dialysis Status: Acute Assessment and Plan: Renal consult (3) Pneumonia: Code(s): J18.9 - Pneumonia, unspecified organism Status: Acute Assessment and Plan: Will continue antibiotics she was recently discharged on Continue oral Augmentin (4) Hypoxic respiratory failure: Code(s): J96.91 - Respiratory failure, unspecified with hypoxia Status: Acute Assessment and Plan: Secondary to volume overload most likely. (5) Peripheral vascular disease: Code(s): I73.9 - Peripheral vascular disease, unspecified Status: Acute Assessment and Plan: continue Plavix and statin (6) Chest pain: Code(s): R07.9 - Chest pain, unspecified Status: Acute Assessment and Plan: WIth elevated troponin Cardiology following and recommended medical therapy She was scheduled for outapatient follow up for high risk PCi at [facility] but has failed to follow up cardiology considering inpatient transfer to [facility] for intervention (7) Hypertension: Qualifiers: Hypertension type: renovascular hypertension Qualified Code(s): I15.0 - Renovascular hypertension Code(s): I10 - Essential (primary) hypertension Status: Chronic Assessment and Plan: Likely secondary to volume overload. Hemodialysis. (8) Lung mass: Code(s): R91.8 - Other nonspecific abnormal finding of lung field Status: Acute Assessment and Plan: pullm consulted (9) Dysarthria: Code(s): R47.1 - Dysarthria and anarthria Status: Acute (10) TIA (transient ischemic attack): Code(s): G45.9 - Transient cerebral ischemic attack, unspecified Status: Acute Assessment and Plan: Dysarthria resolving, CT head and CTA unremarkable Continue Plavix and Statin PT/OT/ST Neurology following Subjective Date/time seen: 03/27/23 14:33 Interval history: patient alert and oriented, does not appear to have slurred speech and no focal defcits Review of Systems Review of Systems: As per HPI. Exam Narrative: GENERAL APPEARANCE: chronically ill-appearing female resting in bed in [facility] HEENT: normocephalic, atraumatic, normal conjunctiva and sclera, nares patient NECK: no lymphadenopathy, thyromegaly, or JVD MOUTH: normal lips, teeth, and gums CARDIOVASCULAR: RRR, normal S1 and S2, no rub RESPIRATORY: coarse breath sounds ABDOMEN: soft, nontender, nondistended, positive bowel sounds present EXTREMITIES: s/p left BKA and right AKA; right radial forearm erythema with associated tenderness to touch NEUROLOGICAL: alert and oriented x 3; CN II - XII intact bilaterally; no focal deficits noted Objective Data Vital Signs Vital Signs: Vital Signs - 24 hr 03/26/23 14:45 03/26/23 15:00 03/26/23 15:15 Temperature Pulse Rate 76 74 75 Respiratory Rate Blood Pressure 168/81 H 169/81 H 158/73 H Pulse Oximetry Oxygen Delivery 03/26/23 15:30 03/26/23 15:45 03/26/23 16:00 Temperature Pulse Rate 77 90 62 Respiratory Rate Blood Pressure 148/79 H 140/74 149/92 H Pulse Oximetry Oxygen Delivery 03/26/23 16:15 03/26/23 16:30 03/26/23 16:36 Temperature 97.8 F Pulse Rate 71 95 92 Respiratory Rate 18 Blood Pressure 173/65 H 157/78 H 160/71 H Pulse Oximetry Oxygen Delivery 03/26/23 16:54 03/26/23 17:15 03/26/23 18:45 Temperature 98.3 F 97.5 F L Pulse Rate 94 95 72 Respiratory Rate 18 18 Blood Pressure 188/89 H 153/73 H Pulse Oximetry 96 100 Oxygen Delivery 03/26/23 19:32
--- NOTE | 2023-03-27 14:35 | PCSTNOTE ---
Please refer to the Modified Barium Swallow Evaluation in the EMR.
--- NOTE | 2023-03-27 16:01 | PM.CNPUL ---
Assessment and Plan Assessment and plan (1) Hypoxic respiratory failure: Code(s): J96.91 - Respiratory failure, unspecified with hypoxia Status: Acute (2) Lung nodule: Code(s): R91.1 - Solitary pulmonary nodule Status: Acute Assessment and Plan: 72-year-old female with multiple medical problems including coronary artery disease, congestive heart failure, end-stage renal failure on dialysis, peripheral vascular disease, diabetes mellitus presented with increasing shortness of breath and hypoxemia. Chest x-ray showed lung congestion related to congestive heart failure. Regarding the right lower lobe nodule that was 1st seen on chest imaging studies done within the last 4 months. Patient was going to have work as an outpatient but has not seen the oncologist yet. The nodule looks pretty suspicious for lung cancer. Had a lengthy discussion with the patient and patient's sister who apparently takes care of her. The patient will need workup as an outpatient with a PET scan and CT-guided needle biopsy. I told the patient's sister to call the Pulmonary Clinic to make an appointment following discharge from the hospital. I gave my business card to the patient call to make an appointment. 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 The patient presented with shortness of breath and chest pain. She was discharged the day before after she was hospitalized for similar complaints. 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 On previous chest imaging studies the patient was found to have a right lower lobe nodule measuring approximately 14 mm. The nodule was not present on older chest imaging studies. Patient never had history of lung disease. She has been a smoker for many years. Patient has been hospitalized numerous times over the last year for cardiac in renal problems. Regarding the right lower lobe nodule the patient was going to see an oncologist in [place]. She is still waiting to see the oncologist because the medical records for [facility] were not sent to her office yet. Review of Systems Review of Systems: All systems reviewed & are unremarkable except as noted in HPI and below (HPI and below) [facility] Past Medical History Medical History Anxiety with depression Arterial vascular disease Chronic anemia Coronary artery disease COVID Digital arterial occlusive disease End-stage renal disease on hemodialysis Saturday, ,
[2023-03-27 16:58] LABS: Glucose Point of Care 159 mg/dl (65-105)
[2023-03-27] MEDS: PRAVASTATIN SODIUM 20 MG TABLET 40 MG PO (20:16)
[2023-03-27 21:15] LABS: Glucose Point of Care 187 mg/dl (65-105)
[2023-03-27] MEDS: hydrALAZINE HCL 20 MG/ML VIAL 10 MG IV PUSH (23:04)
[2023-03-28] VITALS (20 sets, daily range): BP systolic 149–211; BP diastolic 50–99; PULSE 65–104; RESP 16–20; TEMP 36.4–37; O2SAT 95–100
[2023-03-28 07:53] LABS: Glucose Point of Care 161 mg/dl (65-105)
[2023-03-28 08:00] LABS: Albumin Level 3.5 g/dL (3.5-5.1); Anion Gap 7 mmol/L (8-16); Blood Urea Nitrogen 26 mg/dL (7-17); Carbon Dioxide 26 mmol/L (22-30); Chloride 103 mmol/L (98-107); Estimated Glomerular Filt Rate 8; Glucose 161 mg/dL (65-110); Phosphorus 5.7 mg/dL (2.5-4.5); Potassium 4.7 mmol/L (3.4-5.0); Sodium 136 mmol/L (137-145)
--- NOTE | 2023-03-28 08:48 | PM.PNPUL ---
Progress Note: A&P Assessment and Plan (1) Lung nodule: Code(s): R91.1 - Solitary pulmonary nodule Status: Acute Assessment and Plan: This 72-year-old female with multiple medical problems presented with shortness of breath related to congestive heart failure. Patient has known right lower lobe nodule 1st detected on previous chest imaging studies within the last 3 months. She has not had any workup for the right lower lobe nodule. Patient was supposed to see an oncologist in the area for further workup. She is not willing to return to pulmonary clinic at [place] for further testing. She will need a PET scan and most likely CT-guided needle aspiration as this nodule looks highly suspicious for malignancy with. If it turns out to be lung cancer patient will probably need just SBRT given her high risk for complications related to possible surgery. I talked to the patient's sister who is her POA about the need for further testing. Clinic phone number to make appointment will be attached to the discharge papers so that they can make a phone call for appointment. Will sign off please call with any questions. (2) Atrial fibrillation: Code(s): I48.91 - Unspecified atrial fibrillation Status: Acute (3) End stage renal disease on dialysis: Code(s): N18.6 - End stage renal disease; Z99.2 - Dependence on renal dialysis Status: Acute (4) Hypoxic respiratory failure: Code(s): J96.91 - Respiratory failure, unspecified with hypoxia Status: Acute (5) Amputation of lower extremity: Code(s): S88.919A - Complete traumatic amputation of unspecified lower leg, level unspecified, initial encounter Status: Acute (6) Digital arterial occlusive disease: Code(s): I77.9 - Disorder of arteries and arterioles, unspecified Status: Acute (7) History of amputation below knee: Code(s): Z89.519 - Acquired absence of unspecified leg below knee Status: Acute (8) Insulin dependent type 2 diabetes mellitus: Code(s): E11.9 - Type 2 diabetes mellitus without complications; Z79.4 - FDC (current) use of insulin Status: Chronic (9) Amputation below knee: Code(s): S88.119A - Complete traumatic amputation at level between knee and ankle, unspecified lower leg, initial encounter Status: Acute Subjective Date/time seen: 03/28/23 08:48 Interval history: Patient has no new respiratory symptoms. As patient whether she has history of sleep apnea. She stated that she never had a sleep study and is not using any PA P at home. Review of Systems Review of Systems: All systems reviewed & are unremarkable except as noted in HPI and below (HPI and below) Exam Narrative: GENERAL APPEARANCE: Well developed, well nourished, alert and cooperative, and appears to be morbidly obese in mild respiratory distress while on room air SKIN: Inspection of the skin reveals no rashes, ulcerations or petechiae. HEENT: Sclerae anicteric and conjunctivae pink and moist. Extraocular movements were intact and pupils were equal, round, NECK: Supple. There was no thyroid enlargement, and no tenderness, or masses were felt. LUNGS: Crackles at bases posteriorly CARDIAC: There was a regular rate and rhythm without any murmurs, gallops, rubs. ABDOMEN: Soft and nontender with normal bowel sounds. There was no organomegaly. LYMPH NODES: No lymphadenopathy was appreciated in the neck. EXTREMITIES: No cyanosis, clubbing or edema. Above knee amputation on right, below-knee amputation on left. NEUROLOGIC: Alert and oriented x 3. Normal affect. Objective Data Vital Signs Vital Signs: Vital Signs - 24 hr 03/27/23 08:51 03/27/23 14:00 03/27/23 17:45 Temperature 36.5 C Pulse Rate 69 72 72 Respiratory Rate 18 Blood Pressure 146/40 H Pulse Oximetry 95 Oxygen Delivery 03/27/23 20:00 03/27/23 22:00 03/27/23 23:40 Temperature 36.6 C Pulse Rate 72 Resp
[2023-03-28] MEDS: AMOXICILLIN/CLAVULANATE K 500-125 MG TAB 1 TABLET PO ×2 (09:00→18:36)
[2023-03-28] MEDS: PANTOPRAZOLE 40 MG TABLET PO (09:10)
[2023-03-28] MEDS: APIXABAN 5 MG TABLET PO (09:10)
[2023-03-28] MEDS: CLOPIDOGREL BISULFATE 75 MG TABLET PO (09:10)
[2023-03-28] MEDS: SEVELAMER CARBONATE 800 MG TABLET PO ×2 (09:10→12:12)
[2023-03-28 11:38] LABS: Glucose Point of Care 210 mg/dl (65-105)
[2023-03-28] MEDS: INSULIN ASPART (*BKC) 100 UNITS/ML SUB-Q (12:12)
--- NOTE | 2023-03-28 14:01 | PM.IMPN ---
Progress Note: A&P Assessment and Plan (1) Fluid overload: Code(s): E87.70 - Fluid overload, unspecified Status: Acute Assessment and Plan: This is likely the source of her elevated blood pressure and also her shortness of breath. Renal consult for hemodialysis (2) End stage renal disease on dialysis: Code(s): N18.6 - End stage renal disease; Z99.2 - Dependence on renal dialysis Status: Acute Assessment and Plan: Renal consult (3) Pneumonia: Code(s): J18.9 - Pneumonia, unspecified organism Status: Acute Assessment and Plan: Will continue antibiotics she was recently discharged on Continue oral Augmentin (4) Hypoxic respiratory failure: Code(s): J96.91 - Respiratory failure, unspecified with hypoxia Status: Acute Assessment and Plan: Secondary to volume overload most likely. (5) Peripheral vascular disease: Code(s): I73.9 - Peripheral vascular disease, unspecified Status: Acute Assessment and Plan: continue Plavix and statin (6) Chest pain: Code(s): R07.9 - Chest pain, unspecified Status: Acute Assessment and Plan: WIth elevated troponin Cardiology following and recommended medical therapy She was scheduled for outapatient follow up for high risk PCi at [facility] but has failed to follow up cardiology considering inpatient transfer to [facility] for intervention (7) Hypertension: Qualifiers: Hypertension type: renovascular hypertension Qualified Code(s): I15.0 - Renovascular hypertension Code(s): I10 - Essential (primary) hypertension Status: Chronic Assessment and Plan: Likely secondary to volume overload. Hemodialysis. (8) Lung mass: Code(s): R91.8 - Other nonspecific abnormal finding of lung field Status: Acute Assessment and Plan: pulm evaluation noted, patient was known to them and had not followed up with oncology referral past admission when the mass was found pulm recommended outpatient follow up and work up if patient will follow up (9) Dysarthria: Code(s): R47.1 - Dysarthria and anarthria Status: Acute (10) TIA (transient ischemic attack): Code(s): G45.9 - Transient cerebral ischemic attack, unspecified Status: Acute Assessment and Plan: Dysarthria resolving, CT head and CTA unremarkable Continue Plavix and Statin PT/OT/ST Neurology following Subjective Date/time seen: 03/28/23 14:01 Interval history: Patient noted she does not want any interventions discussed with her that i will let her discuss that with cardiology Review of Systems Review of Systems: As per HPI. Exam Narrative: GENERAL APPEARANCE: chronically ill-appearing female resting in bed in [facility] HEENT: normocephalic, atraumatic, normal conjunctiva and sclera, nares patient NECK: no lymphadenopathy, thyromegaly, or JVD MOUTH: normal lips, teeth, and gums CARDIOVASCULAR: RRR, normal S1 and S2, no rub RESPIRATORY: coarse breath sounds ABDOMEN: soft, nontender, nondistended, positive bowel sounds present EXTREMITIES: s/p left BKA and right AKA; right radial forearm erythema with associated tenderness to touch NEUROLOGICAL: alert and oriented x 3; CN II - XII intact bilaterally; no focal deficits noted Objective Data Vital Signs Vital Signs: Vital Signs - 24 hr 03/27/23 17:45 03/27/23 20:00 03/27/23 22:00 Temperature 97.8 F Pulse Rate 72 72 Respiratory Rate 20 Blood Pressure 210/94 H Pulse Oximetry 99 Oxygen Delivery Room Air 03/27/23 23:40 03/28/23 06:00 03/28/23 08:00 Temperature 97.5 F L Pulse Rate 68 Respiratory Rate 20 Blood Pressure 188/60 H 192/50 H Pulse Oximetry 100 Oxygen Delivery Room Air Intake/Output Intake/Output: Intake & Output 03/25/23 03/26/23 03/27/23 03/28/23 23:59 23:59 23:59 23:59 Intake Total 600 290 628 Output Total 2650 -2049 2
[2023-03-28 16:41] LABS: Glucose Point of Care 152 mg/dl (65-105)
--- NOTE | 2023-03-28 17:09 | P.PNNP_ITS ---
Progress Note: A&P Assessment and Plan (1) End stage renal disease: Code(s): N18.6 - End stage renal disease Status: Chronic Assessment and Plan: * HD today * continue T/T/S dialysis schedule * follow electrolytes, volume status, and clearance (2) Chest pain: Qualifiers: Chest pain type: unspecified Qualified Code(s): R07.9 - Chest pain, unspecified Code(s): R07.9 - Chest pain, unspecified Status: Acute Assessment and Plan: * no further episodes since admission * telemetry and troponins reviewed * recent cardiac catheterization results noted (02/28/23) -- ultimately, needs to follow-up with her primary component lab tech (3) Shortness of breath: Code(s): R06.02 - Shortness of breath Status: Acute Assessment and Plan: * likely related to several issues: * mild pulmonary edema * chest pain * underlying history of COPD * recent diagnosed pneumonia * admission CXR noted * fluid removal/ultrafiltration as tolerated with dialyiss * follow respiratory status (4) Hypertension: Qualifiers: Hypertension type: renovascular hypertension Qualified Code(s): I15.0 - Renovascular hypertension Code(s): I10 - Essential (primary) hypertension Status: Chronic Assessment and Plan: * erratic at baseline * resumed on home medications * complicated by issues with intradialytic hypotension * follow trend of hemodynamics (5) Anemia: Code(s): D64.9 - Anemia, unspecified Status: Chronic Assessment and Plan: * related to ESRD and frequent hospitalizations * Epogen with HD * follow H/H (6) TIA (transient ischemic attack): Code(s): G45.9 - Transient cerebral ischemic attack, unspecified Status: Acute Assessment and Plan: * dysarthria resolving * CT head and CTA unremarkable; further imaging noted * continue plavix, anticoagulation, and statin * PT/OT/ST as tolerated * Neurology following (7) Insulin dependent type 2 diabetes mellitus: Code(s): E11.9 - Type 2 diabetes mellitus without complications; Z79.4 - watermaster (current) use of insulin Status: Chronic Assessment and Plan: * follow accu-cheks * glycemic control per hospitalists Not opposed to discharge from renal perspective once medically stable. Will continue to follow. Subjective Date/time seen: 03/28/23 17:09 Interval history: Follow-up for end stage renal disease on hemodialysis. Tolerating dialysis treatment at the time of my visit (seen on HD at 5:00PM); no apparent distress voiced at this time; no apparent distress noted at this time; BP elevated currently. Exam Narrative: General: elderly female in NAD Heart: normal S1 and S2; no rub Lungs: clear anteriorly; decreased at bases Abdomen: soft, nontender, nondistended, positive bowel sounds Extremities: no cyanosis or clubbing; no edema; s/p left BKA and right AKA Skin: warm and intact Objective Data Vital Signs Vital Signs: Vital Signs Temp Pulse Resp BP Pulse Ox O2 Del Method 03/28/23 17:00 68 195/79 H 03/28/23 16:45 67 211/96 H 03/28/23 16:29 72 199/89 H 03/28/23 16:21 98.4 F 70 20 207/89 H 03/28/23 14:00 97.9 F 65 16 181/50 H 100 03/28/23 08:00 Room Air 1
--- NOTE | 2023-03-28 17:09 | PM.PNNEP ---
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 (3) Shortness of breath: Code(s): R06.02 - Shortness of breath Status: Acute Assessment and Plan: likely related to several issues: mild pulmonary edema chest pain underlying history of COPD recent diagnosed pneumonia admission CXR noted fluid removal/ultrafiltration as tolerated with dialyiss follow respiratory status (4) Hypertension: Qualifiers: Hypertension type: renovascular hypertension Qualified Code(s): I15.0 - Renovascular hypertension Code(s): I10 - Essential (primary) hypertension Status: Chronic Assessment and Plan: erratic at baseline resumed on home medications complicated by issues with intradialytic hypotension follow trend of hemodynamics (5) Anemia: Code(s): D64.9 - Anemia, unspecified Status: Chronic Assessment and Plan: related to ESRD and frequent hospitalizations Epogen with HD follow H/H (6) TIA (transient ischemic attack): Code(s): G45.9 - Transient cerebral ischemic attack, unspecified Status: Acute Assessment and Plan: dysarthria resolving CT head and CTA unremarkable; further imaging noted continue plavix, anticoagulation, and statin PT/OT/ST as tolerated Neurology following (7) Insulin dependent type 2 diabetes mellitus: Code(s): E11.9 - Type 2 diabetes mellitus without complications; Z79.4 - terminal carman (current) use of insulin Status: Chronic Assessment and Plan: follow accu-cheks glycemic control per hospitalists Not opposed to discharge from renal perspective once medically stable. Will continue to follow. Subjective Date/time seen: 03/28/23 17:09 Interval history: Follow-up for end stage renal disease on hemodialysis. Tolerating dialysis treatment at the time of my visit (seen on HD at 5:00PM); no apparent distress voiced at this time; no apparent distress noted at this time; BP elevated currently. Exam Narrative: General: elderly female in NAD Heart: normal S1 and S2; no rub Lungs: clear anteriorly; decreased at bases Abdomen: soft, nontender, nondistended, positive bowel sounds Extremities: no cyanosis or clubbing; no edema; s/p left BKA and right AKA Skin: warm and intact Objective Data Vital Signs Vital Signs: Vital Signs Temp Pulse Resp BP Pulse Ox O2 Del Method 03/28/23 17:00 68 195/79 H 03/28/23 16:45 67 211/96 H 03/28/23 16:29 72 199/89 H 03/28/23 16:21 98.4 F 70 20 207/89 H 03/28/23 14:00 97.9 F 65 16 181/50 H 100 03/28/23 08:00 Room Air 03/28/23 06:00 97.5 F L 68 20 192/50 H 100 03/27/23 23:40 188/60 H 03/27/23 22:00 97.8 F 72 20 210/94 H 99 03/27/23 20:00 Room Air 03/27/23 17:45 72 Intake/Output Intake/Output: Intake & Output 03/25/23 03/26/23 03/27/23 03/28/23 23:59 23:59 23:59 23:59 Intake Total 600 290 628 Output Total 2650 Balance -0 290 628 Meds/Results Medications: Active Medications Generic Name Dose Route Start Last Admin Trade Name Freq PRN Reason Stop Dose Admin Acetaminophen 1,000 mg 03/26/23 13:18 Acetaminophen 500 Mg Tablet PO Q6H PRN Pain Amoxicillin/Clavulanate Potassium 1 tablet 1
[2023-03-28] MEDS: EPOETIN ALFA-EPBX 10,000 UNITS/ML VIAL 10000 UNITS IV PUSH (19:12)
[2023-03-28] MEDS: HEPARIN SODIUM 1,000 UNITS/ML VIAL 6000 UNITS IV PUSH (19:46)
[2023-03-28] MEDS: PRAVASTATIN SODIUM 20 MG TABLET 40 MG PO (20:30)
[2023-03-28 20:49] LABS: Glucose Point of Care 144 mg/dl (65-105)
--- NOTE | 2023-03-28 21:06 | PC.NURSE ---
report received from framer at 1945. 3L taken off pt. BP remained high during dialysis, with the last pressure being 195/74. Upon return to room 307-1, pt's blood pressure was 157/64. pt reports feeling hot, but has no fever, and does not appear diaphoretic. blood sugar 144. cool rags applied to neck and forehead, and fan turned on. pt keeps stating my butt hurts . no open areas visible to this RN, however with a history of a healed pressure wound on bottom, pt is agreeable to being repositioned at least q2h, if not more often. frequent rounding initiated.
[2023-03-29 04:15] VITALS: BP 223/71
[2023-03-29 04:32] VITALS: BP 252/68
--- NOTE | 2023-03-29 04:40 | PC.NURSE ---
Dr. Guzmán notified of high manual BP. Order received to give hydralazine IVP, and to give her home BP meds early
[2023-03-29 05:05] VITALS: PULSE 70
[2023-03-29] MEDS: carvediloL 12.5 MG TABLET PO (05:05)
[2023-03-29] MEDS: LOSARTAN POTASSIUM 100 MG TABLET PO (05:05)
[2023-03-29] MEDS: hydrALAZINE HCL 20 MG/ML VIAL 10 MG IV PUSH (05:07)
[2023-03-29] MEDS: ACETAMINOPHEN 500 MG TABLET 1000 MG PO (05:07)
[2023-03-29] MEDS: ISOSORBIDE MONONITRATE 30 MG TAB.ER.24H PO (05:10)
[2023-03-29 05:55] VITALS: BP 147/68; PULSE 83
[2023-03-29 05:59] VITALS: PULSE 70; RESP 20; TEMP 37; O2SAT 97
[2023-03-29 07:09] LABS: Basophils Percent Auto 0.6 % (0.2-1.2); Eosinophils Absolute Auto 0.2 K/mm3 (0-0.3); Eosinophils Percent Auto 4.3 % (0-4.4); Hematocrit 34.8 % (37.0-47.0); Hemoglobin 10.7 g/dL (12.0-15.0); Immature Granulocyte Absolute 0.02 K/mm3 (0.00-0.031); Immature Granulocyte Percent A 0.4 % (0-0.5); Lymphocytes Absolute Auto 1.22 K/mm3 (0.9-3.2); Mean Corpuscular HGB Conc 30.7 g/dl (32-36); Mean Corpuscular Hemoglobin 30.9 pg (26-34); Mean Corpuscular Volume 100.6 fl (80-100); Mean Platelet Volume 12.4 fl (7.4-10.4); Monocytes Absolute Auto 0.4 K/mm3 (0.1-0.6); Monocytes Percent Auto 7.4 % (2.6-8.5); Neutrophils Absolute Auto 3.4 K/mm3 (1.3-6.7); Neutrophils Percent Auto 64.3 % (45.5-73.1); Platelet Count Result 124 k/mm3 (150-375); Red Blood Count 3.46 M/mm3 (4.2-5.4); Red Cell Distribution Width 13.5 % (11.5-14.5); White Blood Count 5.3 K/mm3 (4.5-10.0)
[2023-03-29 07:19] LABS: Lactic Acid Reflex 0.8 mmol/L (0.7-2.0)
[2023-03-29 07:20] LABS: Alanine Aminotransferase 12 U/L (6-35); Albumin Level 3.7 g/dL (3.5-5.1); Alkaline Phosphatase 104 U/L (38-126); Anion Gap 8 mmol/L (8-16); Aspartate Amino Transferase 18 U/L (14-36); Bilirubin,Total 0.6 mg/dL (0.2-1.3); Blood Urea Nitrogen 16 mg/dL (7-17); Calcium 8.7 mg/dL (8.4-10.2); Carbon Dioxide 25 mmol/L (22-30); Chloride 103 mmol/L (98-107); Estimated Glomerular Filt Rate 12; Glucose 183 mg/dL (65-110); Potassium 3.9 mmol/L (3.4-5.0); Sodium 136 mmol/L (137-145)
[2023-03-29 08:26] LABS: Glucose Point of Care 191 mg/dl (65-105)
[2023-03-29] MEDS: SEVELAMER CARBONATE 800 MG TABLET PO (09:42)
[2023-03-29] MEDS: AMOXICILLIN/CLAVULANATE K 500-125 MG TAB 1 TABLET PO (09:42)
[2023-03-29] MEDS: APIXABAN 5 MG TABLET PO (09:42)
[2023-03-29] MEDS: PANTOPRAZOLE 40 MG TABLET PO (09:43)
[2023-03-29] MEDS: CLOPIDOGREL BISULFATE 75 MG TABLET PO (09:43)
--- NOTE | 2023-03-29 10:00 | P.PNNP_ITS ---
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-up with 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 primary industrial sewer (3) Shortness of breath: Code(s): R06.02 - Shortness of breath Status: Acute Assessment and Plan: * likely related to several issues: * mild pulmonary edema * chest pain * underlying history of COPD * recent diagnosed pneumonia * admission CXR noted * fluid removal/ultrafiltration as tolerated with dialyiss * follow respiratory status (4) Hypertension: Qualifiers: Hypertension type: renovascular hypertension Qualified Code(s): I15.0 - Renovascular hypertension Code(s): I10 - Essential (primary) hypertension Status: Chronic Assessment and Plan: * erratic at baseline * resumed on home medications * complicated by issues with intradialytic hypotension * follow trend of hemodynamics (5) Anemia: Code(s): D64.9 - Anemia, unspecified Status: Chronic Assessment and Plan: * related to ESRD and frequent hospitalizations * Epogen with HD * follow H/H (6) TIA (transient ischemic attack): Code(s): G45.9 - Transient cerebral ischemic attack, unspecified Status: Acute Assessment and Plan: * dysarthria resolving * CT head and CTA unremarkable; further imaging noted * continue plavix, anticoagulation, and statin * PT/OT/ST as tolerated * Neurology following (7) Insulin dependent type 2 diabetes mellitus: Code(s): E11.9 - Type 2 diabetes mellitus without complications; Z79.4 - residential (current) use of insulin Status: Chronic Assessment and Plan: * follow accu-cheks * glycemic control per hospitalists Not opposed to discharge from renal perspective once medically stable. Will continue to follow. Subjective Date/time seen: 03/29/23 10:00 Interval history: Follow-up for end stage renal disease on hemodialysis. Tolerated dialysis treatment yesterday afternoon without any issues or problems; breathing/respiratory status is stable and no further chest pain noted; anxious for discharge at the time of my visit; no other issues/events overnight or earlier this morning. Exam 2 Narrative: General: elderly female in NAD Heart: normal S1 and S2; no rub Lungs: clear anteriorly; decreased at bases Abdomen: soft, nontender, nondistended, positive bowel sounds Extremities: no cyanosis or clubbing; no edema; s/p left BKA and right AKA Skin: no rash Objective Data Vital Signs Vital Signs: Vital Signs Temp Pulse Resp BP Pulse Ox O2 Del Method 03/29/23 05:59 98.6 F 70 20 97 03/29/23 05:55 83 147/68 H 03/28/23 19:45 195/74 H 03/29/23 05:05 70 03/29/23 04:32 252/68 H 03/28
--- NOTE | 2023-03-29 10:00 | PM.PNNEP ---
Progress Note: A&P Assessment and Plan (1) End stage renal disease: Code(s): N18.6 - End stage renal disease Status: Chronic Assessment and Plan: HD tomorrow continue T/T/S dialysis schedule follow electrolytes, volume status, and clearance (2) Chest pain: Qualifiers: Chest pain type: unspecified Qualified Code(s): R07.9 - Chest pain, unspecified Code(s): R07.9 - Chest pain, unspecified Status: Acute Assessment and Plan: no further episodes since admission telemetry and troponins reviewed recent cardiac catheterization results noted (02/28/23) -- ultimately, needs to follow-up with her primary sample patternmaker (3) Shortness of breath: Code(s): R06.02 - Shortness of breath Status: Acute Assessment and Plan: likely related to several issues: mild pulmonary edema chest pain underlying history of COPD recent diagnosed pneumonia admission CXR noted fluid removal/ultrafiltration as tolerated with dialyiss follow respiratory status (4) Hypertension: Qualifiers: Hypertension type: renovascular hypertension Qualified Code(s): I15.0 - Renovascular hypertension Code(s): I10 - Essential (primary) hypertension Status: Chronic Assessment and Plan: erratic at baseline resumed on home medications complicated by issues with intradialytic hypotension follow trend of hemodynamics (5) Anemia: Code(s): D64.9 - Anemia, unspecified Status: Chronic Assessment and Plan: related to ESRD and frequent hospitalizations Epogen with HD follow H/H (6) TIA (transient ischemic attack): Code(s): G45.9 - Transient cerebral ischemic attack, unspecified Status: Acute Assessment and Plan: dysarthria resolving CT head and CTA unremarkable; further imaging noted continue plavix, anticoagulation, and statin PT/OT/ST as tolerated Neurology following (7) Insulin dependent type 2 diabetes mellitus: Code(s): E11.9 - Type 2 diabetes mellitus without complications; Z79.4 - military technology manager (current) use of insulin Status: Chronic Assessment and Plan: follow accu-cheks glycemic control per hospitalists Not opposed to discharge from renal perspective once medically stable. Will continue to follow. Subjective Date/time seen: 03/29/23 10:00 Interval history: Follow-up for end stage renal disease on hemodialysis. Tolerated dialysis treatment yesterday afternoon without any issues or problems; breathing/respiratory status is stable and no further chest pain noted; anxious for discharge at the time of my visit; no other issues/events overnight or earlier this morning. Exam Narrative: General: elderly female in NAD Heart: normal S1 and S2; no rub Lungs: clear anteriorly; decreased at bases Abdomen: soft, nontender, nondistended, positive bowel sounds Extremities: no cyanosis or clubbing; no edema; s/p left BKA and right AKA Skin: no rash Objective Data Vital Signs Vital Signs: Vital Signs Temp Pulse Resp BP Pulse Ox O2 Del Method 03/29/23 05:59 98.6 F 70 20 97 03/29/23 05:55 83 147/68 H 03/28/23 19:45 195/74 H 03/29/23 05:05 70 03/29/23 04:32 252/68 H 03/28/23 20:00 Room Air 03/28/23 21:26 98.0 F 92 18 157/69 H 95 03/28/23 19:34 98 F 96 20 195/74 H 03/28/23 19:29 86 175/74 H 03/28/23 19:15 82 165/70 H 03/28/23 19:00 84 185/99 H 03/28/23 18:45 88 173/95 H 03/28/23 18:30 104 H 162/91 H 03/28/23 18:15 94 173/67 H 03/28/23 18:00 93 149/86 H 03/28/23 17:45 98 162/75 H 03/28/23 17:30 74 204/79 H 03/28/23 17:15 67 188/85 H 03/28/23 17:00 68 195/79 H 03/28/23 16:45 67 211/96 H 03/28/23 16:29 72 199/89 H 03/28/23 16:21 98.4 F 70 20 207/89 H Intake/Output Intake/Output: Intake
--- NOTE | 2023-03-29 10:32 | PM.IMPN ---
Progress Note: A&P Assessment and Plan (1) Fluid overload: Code(s): E87.70 - Fluid overload, unspecified Status: Acute Assessment and Plan: This is likely the source of her elevated blood pressure and also her shortness of breath. Improving with dialysis nephrology following (2) End stage renal disease on dialysis: Code(s): N18.6 - End stage renal disease; Z99.2 - Dependence on renal dialysis Status: Acute Assessment and Plan: continue dialysis (3) Pneumonia: Code(s): J18.9 - Pneumonia, unspecified organism Status: Acute Assessment and Plan: Will continue antibiotics she was recently discharged on Continue oral Augmentin (4) Hypoxic respiratory failure: Code(s): J96.91 - Respiratory failure, unspecified with hypoxia Status: Acute Assessment and Plan: Secondary to volume overload most likely. resolved (5) Peripheral vascular disease: Code(s): I73.9 - Peripheral vascular disease, unspecified Status: Acute Assessment and Plan: continue Plavix and statin (6) Chest pain: Code(s): R07.9 - Chest pain, unspecified Status: Acute Assessment and Plan: WIth elevated troponin Cardiology following and recommended medical therapy She was scheduled for outapatient follow up for high risk PCi at [facility] but has failed to follow up cardiology considering inpatient transfer to [facility] for intervention (7) Hypertension: Qualifiers: Hypertension type: renovascular hypertension Qualified Code(s): I15.0 - Renovascular hypertension Code(s): I10 - Essential (primary) hypertension Status: Chronic Assessment and Plan: Likely secondary to volume overload. Hemodialysis. (8) Lung mass: Code(s): R91.8 - Other nonspecific abnormal finding of lung field Status: Acute Assessment and Plan: pulm evaluation noted, patient was known to them and had not followed up with oncology referral past admission when the mass was found pulm recommended outpatient follow up and work up if patient will follow up (9) Dysarthria: Code(s): R47.1 - Dysarthria and anarthria Status: Acute (10) TIA (transient ischemic attack): Code(s): G45.9 - Transient cerebral ischemic attack, unspecified Status: Acute Assessment and Plan: Dysarthria resolving, CT head and CTA unremarkable Continue Plavix and Statin PT/OT/ST Neurology following Subjective Date/time seen: 03/29/23 10:32 Interval history: patient still asking for discharge, awaiting cardiology eval Review of Systems Review of Systems: As per HPI. Exam Narrative: GENERAL APPEARANCE: chronically ill-appearing female resting in bed in NAD HEENT: normocephalic, atraumatic, normal conjunctiva and sclera, nares patient NECK: no lymphadenopathy, thyromegaly, or JVD MOUTH: normal lips, teeth, and gums CARDIOVASCULAR: RRR, normal S1 and S2, no rub RESPIRATORY: coarse breath sounds ABDOMEN: soft, nontender, nondistended, positive bowel sounds present EXTREMITIES: s/p left BKA and right AKA; right radial forearm erythema with associated tenderness to touch NEUROLOGICAL: alert and oriented x 3; CN II - XII intact bilaterally; no focal deficits noted Objective Data Vital Signs Vital Signs: Vital Signs - 24 hr 03/28/23 14:00 03/28/23 16:21 03/28/23 16:29 Temperature 97.9 F 98.4 F Pulse Rate 65 70 72 Respiratory Rate 16 20 Blood Pressure 181/50 H 207/89 H 199/89 H Pulse Oximetry 100 Oxygen Delivery 03/28/23 16:45 03/28/23 17:00 03/28/23 17:15 Temperature Pulse Rate 67 68 67 Respiratory Rate Blood Pressure 211/96 H 195/79 H 188/85 H Pulse Oximetry Oxygen Delivery 03/28/23 17:30 03/28/23 17:45 03/28/23 18:00 Temperature Pulse Rate 74 98 93 Respiratory Rate Blood Pressure 204/79 H 162/75 H 149/86 H Pulse Oximetry Oxygen Delivery 10
--- NOTE | 2023-03-29 11:14 | PM.DS ---
DS: Admitting Diagnosis Discharge Date 03/29/23 Admitting Diagnosis Fluid overload DS: Discharge Diagnosis Discharge Diagnosis (1) TIA (transient ischemic attack): Code(s): G45.9 - Transient cerebral ischemic attack, unspecified Status: Acute (2) Fluid overload: Code(s): E87.70 - Fluid overload, unspecified Status: Acute (3) Lung nodule: Code(s): R91.1 - Solitary pulmonary nodule Status: Acute DS: Summary Hospital Course Hospital Course: Patient is a 72-year-old female who presents the emergency department with chief complaint of shortness of breath and chest pain.? Patient was just in the hospital and discharged yesterday the patient is end-stage renal disease on dialysis Saturday the patient states that she started getting more short of breath since she left the hospital and EMS found her to be saturating at 74% on room air the patient was transported from [place] to our facility patient also reports that her blood pressures been running high. Patient underwent dialysis, had RR for slurred speech, evaluation was negative and neurology evaluated and recommended continuation of plavix and statin. Pulm was consultd for lung nodule suspicious for ca, however pulm noted that patient was referred to oncology the last admission but she did not follow, pulm noted he will follow up outpatient Cardiology recommended patient follow up with her cardiology outpatient. Patient stated she wants to be discharged home regardless of Pt/OT eval. Assessment and Plan (1) Fluid overload: ?Code(s): E87.70 - Fluid overload, unspecified ?Status:?Acute ?Assessment and Plan: This is likely the source of her elevated blood pressure and also her shortness of breath.? Improving with dialysis nephrology following (2) End stage renal disease on dialysis: ?Code(s): N18.6 - End stage renal disease; Z99.2 - Dependence on renal dialysis ?Status:?Acute ?Assessment and Plan: continue dialysis (3) Pneumonia: ?Code(s): J18.9 - Pneumonia, unspecified organism ?Status:?Acute ?Assessment and Plan: Will continue antibiotics she was recently discharged on Continue oral Augmentin (4) Hypoxic respiratory failure: ?Code(s): J96.91 - Respiratory failure, unspecified with hypoxia ?Status:?Acute ?Assessment and Plan: Secondary to volume overload most likely. resolved (5) Peripheral vascular disease: ?Code(s): I73.9 - Peripheral vascular disease, unspecified ?Status:?Acute ?Assessment and Plan: continue Plavix and statin (6) Chest pain: ?Code(s): R07.9 - Chest pain, unspecified ?Status:?Acute ?Assessment and Plan: WIth elevated troponin Cardiology following and recommended medical therapy She was scheduled for outapatient follow up for high risk PCi at [facility] but has failed to follow up cardiology considering inpatient transfer to [facility] for intervention (7) Hypertension: ?Qualifiers: ?Hypertension type:?renovascular hypertension? Qualified Code(s):?I15.0 - Renovascular hypertension ?Code(s): I10 - Essential (primary) hypertension ?Status:?Chronic ?Assessment and Plan: Likely secondary to volume overload.? Hemodialysis. (8) Lung mass: ?Code(s): R91.8 - Other nonspecific abnormal finding of lung field ?Status:?Acute ?Assessment and Plan: pulm evaluation noted, patient was known to them and had not followed up with oncology referral past admission when the mass was found pulm recommended outpatient follow up and work up if patient will follow up (9) Dysarthria: ?Code(s): R47.1 - Dysarthria and anarthria ?Status:?Acute (10) TIA (transient ischemic attack): ?Code(s): G45.9 - Transient cerebral ischemic attack, unspecified ?Status:?Acute ?Assessment and Plan: Dysarthria resolving, CT head and CTA unremarkable Continue Plavix and Statin PT/OT/S
--- NOTE | 2023-03-29 11:33 | PM.PNCARD ---
Progress Note: A&P Assessment and Plan (1) Elevated troponin: Code(s): R77.8 - Other specified abnormalities of plasma proteins Status: Acute Assessment and Plan: Her troponin levels are elevated, though lower than they were during her admission at the end of February. Since she has had a very recent coronary angiogram, there is no indication for any further ischemic workup at this time. Recommendation has been for outpatient follow-up for consideration for high risk PCI with her primary training administrator, Dr. Blackwood at [facility], but patient has not followed up. I spoke with Dr. Rosenberg at [facility] on 03/28/23 regarding this patient. Plan for outpatient PCI which will be arranged by his office. Spoke to [facility] RN regarding this appointment and it is to be scheduled. Provided patient with copy of [facility] films and [facility] has requested a copy from medical records. Patient states she does not have her cell phone with her in the hospital and that her sister manages all her appointments. Spoke to patient's sister about importance of this procedure and need for her to check her sister's phone to see if [facility] called and to contact their office to schedule PCI if not. Reinforced the importance of this once again. Also reinforced that patient should not continue to be brought to this hospital with cardiac complaints as her training administrator does not work here and we are unable to perform high risk PCI (2) Coronary artery disease: Code(s): I25.10 - Atherosclerotic heart disease of hughes coronary artery without angina pectoris Status: Acute Assessment and Plan: As above. Continue Plavix, statin, beta keith. Not on ASA as she is also on apixaban because of PAF (3) Peripheral vascular disease: Code(s): I73.9 - Peripheral vascular disease, unspecified Status: Acute Assessment and Plan: Continue statin (4) Benign hypertension with ESRD (end-stage renal disease): Code(s): I12.0 - Hypertensive chronic kidney disease with stage 5 chronic kidney disease or end stage renal disease; N18.6 - End stage renal disease Status: Acute Assessment and Plan: Significantly elevated on admission, but improving. (5) End stage renal disease on dialysis: Code(s): N18.6 - End stage renal disease; Z99.2 - Dependence on renal dialysis Status: Acute Assessment and Plan: On dialysis. (6) Atrial fibrillation: Code(s): I48.91 - Unspecified atrial fibrillation Status: Acute Assessment and Plan: On a/c with apixaban Subjective Date/time seen: 03/29/23 11:33 Interval history: Cardiology follow-up for CAD, chest pain, AFib, hypertension She is tearful this morning but does not have any physical complaints. She denies any chest pain. Denies shortness of breath. Review of Systems Review of Systems: All systems reviewed & are unremarkable except as noted in HPI and below Exam Const: General: comfortable, no acute distress, alert, awake and uncomfortable Orientation/consciousness: patient oriented x3 HENMT: Head: normal to inspection Eyes: General: appearance normal, both eyes and all related structures Pupils: Equal, round and reactive pupils present Neck: Neck: normal visual inspection, supple and no JVD Carotids: normal carotid upstroke Chest: Other: Hemodialysis catheter in place upper right chest. Resp: Effort & Inspection: normal respiratory effort Auscultation: clear to auscultation bilaterally Cardio: Rate: regular rate Rhythm: regular rhythm Heart sounds: S1 normal heart sound present, S2 normal heart sound present and no murmurs GI: Auscultation: normal bowel sounds Skin: General skin exam: normal color Neuro: General: patient oriented x3 Cranial nerves: Yes Equal, round and reactive pupils present Extrem: General: abnormal to inspection Other: R AKA, L BKA, 2 amputated fingers R hand Psych: Appearance: grossly normal Mental
[2023-03-29 11:57] LABS: Glucose Point of Care 221 mg/dl (65-105)
== END 2023-03-29 13:40 | disposition home or self-care (01) ==
LOC: ANHED 04:23 → ANHIMU 04:52 → ANH3MEDSUR 03-27 15:49 → ANHIMU 04-02 08:53
PROVIDERS: Internal Medicine; Internal Medicine Cardiovascular Disease; Internal Medicine Nephrology; Student in an Organized Health Care Education/Training Program; Admitting Provider Chiropractor; Emergency Provider Emergency Medicine; PCP Internal Medicine; Visit Provider Internal Medicine
DX: I12.0 Hypertensive chronic kidney disease with stage 5 chronic kidney disease or end stage renal disease (principal); G45.9 Transient cerebral ischemic attack, unspecified; E87.70 Fluid overload, unspecified; J18.9 Pneumonia, unspecified organism; J96.91 Respiratory failure, unspecified with hypoxia; R91.1 Solitary pulmonary nodule; E11.22 Type 2 diabetes mellitus with diabetic chronic kidney disease; D63.1 Anemia in chronic kidney disease; N18.6 End stage renal disease; Z99.2 Dependence on renal dialysis; R47.1 Dysarthria and anarthria; R77.8 Other specified abnormalities of plasma proteins; Z20.822 Contact with and (suspected) exposure to COVID-19; I25.10 Atherosclerotic heart disease of native coronary artery without angina pectoris; Z95.1 Presence of aortocoronary bypass graft; I25.2 Old myocardial infarction; E78.5 Hyperlipidemia, unspecified; I48.0 Paroxysmal atrial fibrillation; I45.10 Unspecified right bundle-branch block; I49.1 Atrial premature depolarization; F41.8 Other specified anxiety disorders; E83.51 Hypocalcemia; N25.0 Renal osteodystrophy; Z89.512 Acquired absence of left leg below knee; Z89.511 Acquired absence of right leg below knee; Z89.431 Acquired absence of right foot; Z89.021 Acquired absence of right finger(s); E11.319 Type 2 diabetes mellitus with unspecified diabetic retinopathy without macular edema; E11.40 Type 2 diabetes mellitus with diabetic neuropathy, unspecified; E11.51 Type 2 diabetes mellitus with diabetic peripheral angiopathy without gangrene; E11.21 Type 2 diabetes mellitus with diabetic nephropathy; F12.90 Cannabis use, unspecified, uncomplicated; Z66 Do not resuscitate; Z79.4 Long term (current) use of insulin; Z79.82 Long term (current) use of aspirin; Z79.01 Long term (current) use of anticoagulants; Z95.820 Peripheral vascular angioplasty status with implants and grafts; F17.210 Nicotine dependence, cigarettes, uncomplicated; Z99.3 Dependence on wheelchair
CPT/HCPCS: 36415; 70450; 70496; 70498; 71045; 80053; 80069; 82948; 83605; 83735; 84100; 84484; 85025; 85610; 85730; 86706; 87040; 87340; 87636; 92526; 92610; 92611; 93005; 96374; 96375; 96376; 99285; A9270; G0257; G0378; J0360; J1644; J1815; J7030; J7121; Q5105; Q9967

== ENCOUNTER 2023-04-24 18:24 | Observation (INO) | payer MEDICARE, OTHER, SELFPAY ==
[2023-04-24] VITALS (23 sets, daily range): BP systolic 88–202; BP diastolic 40–102; PULSE 68–96; RESP 16–24; TEMP 36.2–37.3; O2SAT 97–100; BMI 28.5
--- NOTE | 2023-04-24 14:35 | PM.IMHP ---
H&P: HPI History of Present Illness Date/Time: 04/24/23 14:35 Chief Complaint: SOB Narrative: 72 y/o F presents here with SOB with PMH of ESRD on HD T/T/S, chronic anemia, CAD, DM2, pAFib and HTN. Patient initially presented to [facility] ER for evaluation due to SOB. Patient reports that she became short of breath this morning around 6:00 a.m. Patient laid down to use the bedpan when she became short of breath. Endorsed chest tightness associated with shortness of breath. States I don't know when asked if she became diaphoretic or nauseated. Patient then called EMS, after their arrival patient was diverted to [facility] due to patient's O2 sat reading 70% on room air. Patient was placed on BiPAP for a short duration and weaned to 2L NC. ED workup revealed patient t be in AFib, given diltiazem and now rate controlled but remains in AFib. While at [facility]'s ED, SOB and chest tightness resolved. No longer complaining of dyspnea or chest tightness. Denies cough, congestion, fever, body aches, N/V/D, or chills. Transferred here for HD, typically receives treatment on T/Thr/Sat. Exchanged to /W/ due to the upcoming holiday. Endorses full treatment on Sat. Current complaint is hunger. Review of Systems Review of Systems: All systems reviewed & are unremarkable except as noted in HPI and below PMFSH Past Medical History Medical History Anxiety with depression Arterial vascular disease Chronic anemia Coronary artery disease COVID Digital arterial occlusive disease End-stage renal disease on hemodialysis Saturday, , Saturday. 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 Hemoglobin A1c was 6.8% in February 2020. NSTEMI (non-ST elevated myocardial infarction) Osteomyelitis Paroxysmal atrial fibrillation Peripheral vascular disease Renal osteodystrophy Thrombocytopenia Surgical History Surgical History Amputation of right forefoot Right 4th and 5th ray amputation in 04/2017. Right foot transmetatarsal amputation with partial fasciotomy due to wet gangrene, osteomyelitis, and necrotizing fasciitis in May 2017. 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 History of below-knee amputation of both lower extremities Left [id number] amputation in 2017. Right [id number]-[id number] amputation in 02/2020. 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 History of vascular surgery Right lower extremity stents in March 2017. Left lower extremity stent in 2014. Family History Family History Mother Diabetes mellitus Father Lung cancer Acute myocardial infarction Sibling Diabetes mellitus Social History Social History (Updated 04/24/23 @ 16:44 by Nancy Pollard, GLOBAL ACCOUNT MANAGER) Social History: Lives at home with sister, wheelchair dependent. Surrogate medical decision maker: Kierra Blanton (sister) or Cyndi Blanton (daughter). Code Status: DNR/DNI. Smoking packs per day: 1 Smoking cigarettes per day: 20.0 Years smoked: 40 Smoking pack-years: 40.00 Smoking status: Never smoker Tobacco type: cigarettes Second hand tobacco smoke exposure: No Smoking end date: 02/27/23 Additional smoking assessment comments: 4 daily currently Alcohol intake: never Drinks per week: 1 Alcohol use details: Previous social drinker. Substance use: never Substance use type: does not use Other substance usage details:
[2023-04-24] MEDS: HEPARIN SODIUM 1,000 UNITS/ML VIAL 1000 UNITS IV PUSH (15:33)
--- NOTE | 2023-04-24 15:35 | P.CONNP_ITS ---
Assessment and Plan Assessment and plan (1) End stage renal disease: Status: Chronic Assessment and Plan: * HD today * plan next HD tretment on Saturday to maintain outpatient T/T/S schedule while hospitalized * follow electrolytes, volume status, and clearance (2) Shortness of breath: Code(s): R06.02 - Shortness of breath Status: Acute Assessment and Plan: * likely related to several issues: * mild pulmonary edema * chest pain * underlying history of COPD * reactive airway disease * OSH ER CXR noted * fluid removal/ultrafiltration as tolerated with dialysis * follow respiratory status (3) Chest pain: Qualifiers: Chest pain type: unspecified Qualified Code(s): R07.9 - Chest pain, unspecified Code(s): R07.9 - Chest pain, unspecified Status: Acute Assessment and Plan: * no further symptoms at this time * appears to have resolved with improvement in shortness of breath -- due to rate control versus BiPAP use? * follow repeat troponins * recent cardiac catheterization results noted (02/28/23) -- ultimately, needs to follow-up with her primary structural shop helper (4) Hypertension: Status: Chronic Assessment and Plan: * quite elevated on ER presentation and currently * resumed home medications * may need PRN/IV medications * follow trend of hemodynamics post-HD (5) Anemia: Status: Chronic Assessment and Plan: * due to ESRD * at goal if not supratherapeutic * Epogen with HD if Hgb < 10 * follow trend of H/H (6) Insulin dependent type 2 diabetes mellitus: Status: Chronic Assessment and Plan: * follow accuchecks * glycemic control per hospitalists I will continue follow the patient with you while she remains hospitalized make further recommendations during her hospital course. Thank you for allowing me to participate in the care of this patient. History of Present Illness Reason for Consult Consult date: 04/24/23 Reason for consult: end stage renal disease Chief Complaint Chief complaint: hypoxia,shortness of breath History of Present Illness Narrative: The patient is a 72-year-old female with a past medical history as outlined below who presented to [facility] Emergency Room with complaints of shortness of breath. Apparently, from review of the records at [facility] ER and discussion with the patient, she developed acute shortness of breath early this morning around 6:00 a.m. along with the shortness of breath she apparently had some chest tightness as well but is difficult to get a full and complete history from the patient as she states numerous times during the interview when asked questions ?I do not know. Her family called EMS given the symptoms and she was transported to [facility] emergency room for further assessment Per EMS records, she was apparently satting 70% on room air. She was noted be quite hypertensive by the time of her arrival to the emergency room with a systolic BP in the 200s P she was placed on BiPAP for a short period time but then was able be quickly mean to supplemental oxygen. She was noted be tachycardic any EKG demonstrated atrial fibrillation with RVR. Given her significant hypertension, she was given a dose of IV diltiazem which apparently improved her heart rate as well as her blood pressure. While in the emergency room at [place], her respiratory status seems to improve in general. She gave no other subjective symptoms with regard to cough congestion, fevers, c
--- NOTE | 2023-04-24 15:35 | PM.CNNEP ---
Assessment and Plan Assessment and plan (1) End stage renal disease: Status: Chronic Assessment and Plan: HD today plan next HD tretment on Saturday to maintain outpatient T/T/S schedule while hospitalized follow electrolytes, volume status, and clearance (2) Shortness of breath: Code(s): R06.02 - Shortness of breath Status: Acute Assessment and Plan: likely related to several issues: mild pulmonary edema chest pain underlying history of COPD reactive airway disease OSH ER CXR noted fluid removal/ultrafiltration as tolerated with dialysis follow respiratory status (3) Chest pain: Qualifiers: Chest pain type: unspecified Qualified Code(s): R07.9 - Chest pain, unspecified Code(s): R07.9 - Chest pain, unspecified Status: Acute Assessment and Plan: no further symptoms at this time appears to have resolved with improvement in shortness of breath -- due to rate control versus BiPAP use? follow repeat troponins recent cardiac catheterization results noted (02/28/23) -- ultimately, needs to follow-up with her primary trailer truck driver (4) Hypertension: Status: Chronic Assessment and Plan: quite elevated on ER presentation and currently resumed home medications may need PRN/IV medications follow trend of hemodynamics post-HD (5) Anemia: Status: Chronic Assessment and Plan: due to ESRD at goal if not supratherapeutic Epogen with HD if Hgb < 10 follow trend of H/H (6) Insulin dependent type 2 diabetes mellitus: Status: Chronic Assessment and Plan: follow accuchecks glycemic control per hospitalists I will continue follow the patient with you while she remains hospitalized make further recommendations during her hospital course. Thank you for allowing me to participate in the care of this patient. History of Present Illness Reason for Consult Consult date: 04/24/23 Reason for consult: end stage renal disease Chief Complaint Chief complaint: hypoxia,shortness of breath History of Present Illness Narrative: The patient is a 72-year-old female with a past medical history as outlined below who presented to [facility] Emergency Room with complaints of shortness of breath. Apparently, from review of the records at [facility] ER and discussion with the patient, she developed acute shortness of breath early this morning around 6:00 a.m. along with the shortness of breath she apparently had some chest tightness as well but is difficult to get a full and complete history from the patient as she states numerous times during the interview when asked questions ?I do not know. Her family called EMS given the symptoms and she was transported to [facility] emergency room for further assessment Per EMS records, she was apparently satting 70% on room air. She was noted be quite hypertensive by the time of her arrival to the emergency room with a systolic BP in the 200s P she was placed on BiPAP for a short period time but then was able be quickly mean to supplemental oxygen. She was noted be tachycardic any EKG demonstrated atrial fibrillation with RVR. Given her significant hypertension, she was given a dose of IV diltiazem which apparently improved her heart rate as well as her blood pressure. While in the emergency room at [place], her respiratory status seems to improve in general. She gave no other subjective symptoms with regard to cough congestion, fevers, chills, body aches, nausea, vomiting, diarrhea, or palpitations. Further testing in the emergency room there demonstrated labs consistent with her known history of end-stage renal disease without any critical electrolyte abnormalities with an initial troponin that was negative and a proBNP that was elevated as well. Testing for COVID, and influenza A/B was negative. Her chest x-ray showed some eviden
[2023-04-24] MEDS: HEPARIN SODIUM 1,000 UNITS/ML VIAL 500 UNITS IV PUSH ×3 (15:36→17:36)
--- NOTE | 2023-04-24 15:50 | PC.NURSE ---
Pt to dialysis via bed
[2023-04-24 17:06] LABS: Troponin I 0.529 ng/mL (0.000-0.034)
[2023-04-24 17:49] LABS: Hepatitis B Surface Antigen Negative (Negative)
[2023-04-24] MEDS: HEPARIN SODIUM 1,000 UNITS/ML VIAL 5000 UNITS IV PUSH (18:32)
--- NOTE | 2023-04-24 18:40 | PC.NURSE ---
Pt returned from dialysis via bed. No issues noted
[2023-04-24 19:13] LABS: Glucose Point of Care 129 mg/dl (65-105)
[2023-04-24 20:39] LABS: Troponin I 0.593 ng/mL (0.000-0.034)
[2023-04-24 22:56] LABS: Troponin I 0.445 ng/mL (0.000-0.034)
[2023-04-25] VITALS (20 sets, daily range): BP systolic 140–218; BP diastolic 45–66; PULSE 63–78; RESP 14–18; TEMP 36.1–36.6; O2SAT 94–100
[2023-04-25 05:35] LABS: Basophils Percent Auto 0.5 % (0.2-1.2); Eosinophils Absolute Auto 0.2 K/mm3 (0-0.3); Eosinophils Percent Auto 3.5 % (0-4.4); Immature Granulocyte Absolute 0.04 K/mm3 (0.00-0.031); Immature Granulocyte Percent A 0.7 % (0-0.5); Lymphocytes Absolute Auto 1.46 K/mm3 (0.9-3.2); Lymphocytes Percent Auto 24.4 % (18.3-44.2); Mean Corpuscular HGB Conc 30.6 g/dl (32-36); Mean Corpuscular Hemoglobin 31.3 pg (26-34); Mean Corpuscular Volume 102.3 fl (80-100); Mean Platelet Volume 12.5 fl (7.4-10.4); Monocytes Absolute Auto 0.4 K/mm3 (0.1-0.6); Monocytes Percent Auto 6.9 % (2.6-8.5); Neutrophils Absolute Auto 3.8 K/mm3 (1.3-6.7); Platelet Count Result 116 k/mm3 (150-375); Red Blood Count 3.52 M/mm3 (4.2-5.4); Red Cell Distribution Width 13.1 % (11.5-14.5)
[2023-04-25 05:44] LABS: Alanine Aminotransferase 17 U/L (6-35); Albumin Level 3.4 g/dL (3.5-5.1); Alkaline Phosphatase 93 U/L (38-126); Anion Gap 12 mmol/L (8-16); Aspartate Amino Transferase 21 U/L (14-36); Bilirubin,Total 0.6 mg/dL (0.2-1.3); Blood Urea Nitrogen 35 mg/dL (7-17); Calcium 8.2 mg/dL (8.4-10.2); Carbon Dioxide 24 mmol/L (22-30); Chloride 104 mmol/L (98-107); Estimated CRCL calculation 8 ml/min; Estimated Glomerular Filt Rate 8; Glucose 161 mg/dL (65-110); Magnesium 2.2 mg/dL (1.6-2.3); Phosphorus 6.3 mg/dL (2.5-4.5); Potassium 4.2 mmol/L (3.4-5.0); Sodium 140 mmol/L (137-145)
[2023-04-25 08:23] LABS: Glucose Point of Care 187 mg/dl (65-105)
--- NOTE | 2023-04-25 08:24 | PC.NURSE ---
BP of 217/64. Razia made aware. Advised to give morning Coreg and Imdur and recheck BP 45 minutes afterwards.
[2023-04-25] MEDS: ISOSORBIDE MONONITRATE 30 MG TAB.ER.24H PO (08:28)
[2023-04-25] MEDS: GABAPENTIN 400 MG CAPSULE PO ×3 (08:28→17:19)
[2023-04-25] MEDS: SEVELAMER CARBONATE 800 MG TABLET PO ×3 (08:28→17:21)
[2023-04-25] MEDS: carvediloL 12.5 MG TABLET PO ×2 (08:28→20:32)
[2023-04-25] MEDS: ASPIRIN 81 MG ENTERIC TABLET PO (08:29)
[2023-04-25] MEDS: PANTOPRAZOLE 40 MG TABLET PO (08:29)
[2023-04-25] MEDS: CLOPIDOGREL BISULFATE 75 MG TABLET PO (08:29)
[2023-04-25] MEDS: APIXABAN 5 MG TABLET PO ×2 (08:29→20:32)
[2023-04-25] MEDS: INSULIN ASPART (*BKC) 100 UNITS/ML 10 UNITS SUB-Q ×3 (08:32→17:19)
--- NOTE | 2023-04-25 10:34 | PC.NURSE ---
BP 178/51. BRIANNA Randle notified. Home nifedipine restarted.
--- NOTE | 2023-04-25 11:00 | ECG_ITS ---
Measurements Intervals [place] Rate: 66 P: 88 DE: 161 QRS: -78 QRSD: 149 T: 112 QT: 464 QTc: 489 Interpretive Statements SINUS RHYTHM RIGHT BUNDLE BRANCH BLOCK LEFT ANTERIOR FASCICULAR BLOCK CANNOT RULE OUT SEPTAL INFARCT, AGE INDETERMINATE ST-T WAVE ABNORMALITY IN HIGH LATERAL LEADS- CONSIDER ISCHEMIA ABNORMAL ECG COMPARED TO ECG 03/26/2023 19:43:51 LEFT-AXIS DEVIATION NOW PRESENT ST-T WAVE ABNORMALITY NOW PRESENT Electronically Signed On 04-25-2023 12:01:18 POULTRY DRESSER by Fito Mcintosh D.O.
--- NOTE | 2023-04-25 11:30 | P.PNNP_ITS ---
Progress Note: A&P Assessment and Plan (1) End stage renal disease: Code(s): N18.6 - End stage renal disease Status: Chronic Assessment and Plan: * HD yesterday due to schedule * plan next HD session on Saturday and to resume T/T/S dialysis schedule * follow electrolytes, volume status, and clearance (2) Shortness of breath: Code(s): R06.02 - Shortness of breath Status: Acute Assessment and Plan: * improved (if not resolved) * likely related to several issues: * mild pulmonary edema * chest pain * underlying history of COPD * reactive airway disease * lung cancer(?) -- CT of chest on 01/11/23 with 13 mm nodule in right lung lower lobe suspicious for primary bronchogenic carcinoma * OSH ER CXR noted * fluid removal/ultrafiltration as tolerated with dialysis * follow respiratory status (3) Chest pain: Qualifiers: Chest pain type: unspecified Qualified Code(s): R07.9 - Chest pain, unspecified Code(s): R07.9 - Chest pain, unspecified Status: Acute Assessment and Plan: * no further symptoms at this time * appears to have resolved with improvement in shortness of breath -- due to rate control versus BiPAP use? * repeat troponins noted * recent cardiac catheterization results noted (02/28/23) -- ultimately, needs to follow-up with her primary scrap picker (4) Hypertension: Qualifiers: Hypertension type: renovascular hypertension Qualified Code(s): I15.0 - Renovascular hypertension Code(s): I10 - Essential (primary) hypertension Status: Chronic Assessment and Plan: * erratic at baseline -- questionable compliance with medications at baseline * resumed on home medications * complicated by issues with intradialytic hypotension * follow trend of hemodynamics (5) Anemia: Code(s): D64.9 - Anemia, unspecified Status: Chronic Assessment and Plan: * related to ESRD and frequent hospitalizations * Epogen with HD * follow H/H (6) Insulin dependent type 2 diabetes mellitus: Code(s): E11.9 - Type 2 diabetes mellitus without complications; Z79.4 - USP (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 Will continue to follow. Subjective Date/time seen: 04/25/23 11:30 Interval history: Follow-up for end stage renal disease on hemodialysis. Tolerated dialysis treatment yesterday afternoon but she ended the treatment ear ly by 30 minutes due to cramping (had about 2.2L fluid removal) breathing/respiratory status stable if not better; sleeping comfortably on room air at the time of my visit; no other issues/events overnight or earlier this morning. Exam Narrative: General: elderly female in NAD Heart: normal S1 and S2; no rub Lungs: clear anteriorly; decreased at bases Abdomen: soft, nontender, nondistended, positive bowel sounds Extremities: no cyanosis or clubbing; no edema; s/p left BKA and right AKA Skin: warm and dry Objective Data Vital Signs Vital Signs: Vital Signs Temp Pulse Resp BP Pulse Ox O2 Del Method O2 Flow Rate 04/25/23 10:00 65 04/25/23 10:24 178/51 H 04/25/23 08:00 97.5 F L
--- NOTE | 2023-04-25 11:30 | PM.PNNEP ---
Progress Note: A&P Assessment and Plan (1) End stage renal disease: Code(s): N18.6 - End stage renal disease Status: Chronic Assessment and Plan: HD yesterday due to schedule plan next HD session on Saturday and to resume T/T/S dialysis schedule follow electrolytes, volume status, and clearance (2) Shortness of breath: Code(s): R06.02 - Shortness of breath Status: Acute Assessment and Plan: improved (if not resolved) likely related to several issues: mild pulmonary edema chest pain underlying history of COPD reactive airway disease lung cancer(?) -- CT of chest on 01/11/23 with 13 mm nodule in right lung lower lobe suspicious for primary bronchogenic carcinoma OSH ER CXR noted fluid removal/ultrafiltration as tolerated with dialysis follow respiratory status (3) Chest pain: Qualifiers: Chest pain type: unspecified Qualified Code(s): R07.9 - Chest pain, unspecified Code(s): R07.9 - Chest pain, unspecified Status: Acute Assessment and Plan: no further symptoms at this time appears to have resolved with improvement in shortness of breath -- due to rate control versus BiPAP use? repeat troponins noted recent cardiac catheterization results noted (02/28/23) -- ultimately, needs to follow-up with her primary broomcorn seeder (4) Hypertension: Qualifiers: Hypertension type: renovascular hypertension Qualified Code(s): I15.0 - Renovascular hypertension Code(s): I10 - Essential (primary) hypertension Status: Chronic Assessment and Plan: erratic at baseline -- questionable compliance with medications at baseline resumed on home medications complicated by issues with intradialytic hypotension follow trend of hemodynamics (5) Anemia: Code(s): D64.9 - Anemia, unspecified Status: Chronic Assessment and Plan: related to ESRD and frequent hospitalizations Epogen with HD follow H/H (6) Insulin dependent type 2 diabetes mellitus: Code(s): E11.9 - Type 2 diabetes mellitus without complications; Z79.4 - halfway (current) use of insulin Status: Chronic Assessment and Plan: follow accu-cheks glycemic control per hospitalists Not opposed to discharge from renal perspective if otherwise medically stable. Will continue to follow. Subjective Date/time seen: 04/25/23 11:30 Interval history: Follow-up for end stage renal disease on hemodialysis. Tolerated dialysis treatment yesterday afternoon but she ended the treatment early by 30 minutes due to cramping (had about 2.2L fluid removal) breathing/respiratory status stable if not better; sleeping comfortably on room air at the time of my visit; no other issues/events overnight or earlier this morning. Exam Narrative: General: elderly female in NAD Heart: normal S1 and S2; no rub Lungs: clear anteriorly; decreased at bases Abdomen: soft, nontender, nondistended, positive bowel sounds Extremities: no cyanosis or clubbing; no edema; s/p left BKA and right AKA Skin: warm and dry Objective Data Vital Signs Vital Signs: Vital Signs Temp Pulse Resp BP Pulse Ox O2 Del Method O2 Flow Rate 04/25/23 10:00 65 04/25/23 10:24 178/51 H 04/25/23 08:00 97.5 F L 75 14 217/64 H 98 04/25/23 08:28 74 04/25/23 04:00 Room Air 04/25/23 06:00 66 04/25/23 04:00 68 04/25/23 02:00 65 04/25/23 00:00 67 04/24/23 22:00 69 04/25/23 04:33 97.5 F L 69 16 207/66 H 94 04/25/23 00:00 Room Air 04/25/23 00:00 97.0 F L 66 16 149/58 H 100 04/24/23 20:00 Room Air 04/24/23 20:00 78 04/24/23 20:23 97.8 F 72 16 138/40 L 98 04/24/23 18:47 97 Room Air 04/24/23 18:47 75 16 141/72 H 97 04/24/23 18:11 79 144/66 H 04/24/23 18:00 87 108/60 04/04
[2023-04-25] MEDS: NIFEdipine 30 MG TAB.ER.24 PO ×2 (12:00→17:20)
[2023-04-25] MEDS: LOSARTAN POTASSIUM 100 MG TABLET PO (12:01)
[2023-04-25] MEDS: INSULIN ASPART (*BKC) 100 UNITS/ML SUB-Q (12:01)
[2023-04-25 12:04] LABS: Glucose Point of Care 257 mg/dl (65-105)
--- NOTE | 2023-04-25 13:17 | P.PNIM_ITS ---
Progress Note: A&P Assessment and Plan (1) Hypoxia: Code(s): R09.02 - Hypoxemia Status: Resolved Assessment and Plan: DDx: pulmonary edema r/t CHF exacerbation, PNA, dysrhythmia, COPD exacerbation, volume overload * suspicion for dyspnea/hypoxia secondary to tachycardia and volume overload given resolution with BIPAP and Cardizem * Patient now on room air * CXR, 1 vw from OSH: Bronchovascular markings suggestive of vascular congestion, post sternotomy status evidence by CABG clips, probably positions right subclavian PICC line, no acute cardiopulmonary abnormalities identified. * HD for fluid removal * Patient's symptoms resolved after arrival to the ED. (2) Atrial fibrillation: Qualifiers: Atrial fibrillation type: paroxysmal Qualified Code(s): I48.0 - Paroxysmal atrial fibrillation Code(s): I48.91 - Unspecified atrial fibrillation Status: Acute Assessment and Plan: * 20 mg of IV diltiazem given at outside hospital, now rate controlled at 79 * repeat EKG, no EKG sent with OSH paperwork * tele monitoring (3) End stage renal disease on dialysis: Code(s): N18.6 - End stage renal disease; Z99.2 - Dependence on renal dialysis Status: Acute Assessment and Plan: * HD on MWF * nephrology consulted * monitor electrolytes and renal function * daily weights (4) Chest pain: Qualifiers: Chest pain type: unspecified Qualified Code(s): R07.9 - Chest pain, unspecified Code(s): R07.9 - Chest pain, unspecified Status: Resolved Assessment and Plan: resolved with SOB - unclear if resolution occurred due to rate control or BIPAP * chronic trop leak, value range in last month: 0.034 - 0.899 * Troponin, today: 0.025 (OSH). 0.529 -> 0.593 -> 0.445 * recent cath, 02/28/23 * multiple cardiac consultations for similar presentation, most recent cardiac consultation recommended outpatient follow-up for consideration for high-risk PCI with her primary action installer, Dr. Blackwood * currently on Plavix, statin, beta-keith and apixaban r/t AFib * tele monitoring (5) Chronic anemia: Code(s): D64.9 - Anemia, unspecified Status: Acute Assessment and Plan: Currently stable. attributed to chronic disease, ESRD. * has received Epogen with HD previously, will defer to nephro * trend CBC (6) Insulin dependent type 2 diabetes mellitus: Code(s): E11.9 - Type 2 diabetes mellitus without complications; Z79.4 - custodial (current) use of insulin Status: Chronic Assessment and Plan: Hypoglycemia protocol * POC blood glucose ACHS * home medication resumed -Tresiba 32 units HS and Novolog 10 U TIDWM * correct regimen ordered - mod dose TIDWM and HS * A1C 7.0 (7) Hypertension: Qualifiers: Hypertension type: renovascular hypertension Qualified Code(s): I15.0 - Renovascular hypertension Code(s): I10 - Essential (primary) hypertension Status: Chronic Assessment and Plan: x of fluctuant BP that has been complicated by hypotension r/t HD * initial BP at arrival 202/69, then during hemodialysis blood pressure dropped to 88/49 and dialysis was cut short. * continue to monitor * BP trended back up after dialysis. Home medications resumed. * Hydralazine p.r.n. for systolic BP greater than 185 Subjective Date/time seen: 04/25/23 13:17 Interval history: Patient doing well today
--- NOTE | 2023-04-25 13:17 | PM.IMPN ---
Progress Note: A&P Assessment and Plan (1) Hypoxia: Code(s): R09.02 - Hypoxemia Status: Resolved Assessment and Plan: DDx: pulmonary edema r/t CHF exacerbation, PNA, dysrhythmia, COPD exacerbation, volume overload suspicion for dyspnea/hypoxia secondary to tachycardia and volume overload given resolution with BIPAP and Cardizem Patient now on room air CXR, 1 vw from OSH: Bronchovascular markings suggestive of vascular congestion, post sternotomy status evidence by CABG clips, probably positions right subclavian PICC line, no acute cardiopulmonary abnormalities identified. HD for fluid removal Patient's symptoms resolved after arrival to the ED. (2) Atrial fibrillation: Qualifiers: Atrial fibrillation type: paroxysmal Qualified Code(s): I48.0 - Paroxysmal atrial fibrillation Code(s): I48.91 - Unspecified atrial fibrillation Status: Acute Assessment and Plan: 20 mg of IV diltiazem given at outside hospital, now rate controlled at 79 repeat EKG, no EKG sent with OSH paperwork tele monitoring (3) End stage renal disease on dialysis: Code(s): N18.6 - End stage renal disease; Z99.2 - Dependence on renal dialysis Status: Acute Assessment and Plan: HD on MWF nephrology consulted monitor electrolytes and renal function daily weights (4) Chest pain: Qualifiers: Chest pain type: unspecified Qualified Code(s): R07.9 - Chest pain, unspecified Code(s): R07.9 - Chest pain, unspecified Status: Resolved Assessment and Plan: resolved with SOB - unclear if resolution occurred due to rate control or BIPAP chronic trop leak, value range in last month: 0.034 - 0.899 Troponin, today: 0.025 (OSH). 0.529 -> 0.593 -> 0.445 recent cath, 02/28/23 multiple cardiac consultations for similar presentation, most recent cardiac consultation recommended outpatient follow-up for consideration for high-risk PCI with her primary outcomes analyst, Dr. Blackwood currently on Plavix, statin, beta-keith and apixaban r/t AFib tele monitoring (5) Chronic anemia: Code(s): D64.9 - Anemia, unspecified Status: Acute Assessment and Plan: Currently stable. attributed to chronic disease, ESRD. has received Epogen with HD previously, will defer to nephro trend CBC (6) Insulin dependent type 2 diabetes mellitus: Code(s): E11.9 - Type 2 diabetes mellitus without complications; Z79.4 - terminal carman (current) use of insulin Status: Chronic Assessment and Plan: Hypoglycemia protocol POC blood glucose ACHS home medication resumed -Tresiba 32 units HS and Novolog 10 U TIDWM correct regimen ordered - mod dose TIDWM and HS A1C 7.0 (7) Hypertension: Qualifiers: Hypertension type: renovascular hypertension Qualified Code(s): I15.0 - Renovascular hypertension Code(s): I10 - Essential (primary) hypertension Status: Chronic Assessment and Plan: x of fluctuant BP that has been complicated by hypotension r/t HD initial BP at arrival 202/69, then during hemodialysis blood pressure dropped to 88/49 and dialysis was cut short. continue to monitor BP trended back up after dialysis. Home medications resumed. Hydralazine p.r.n. for systolic BP greater than 185 Subjective Date/time seen: 04/25/23 13:17 Interval history: Patient doing well today with no new complaints. She denies chest pain, shortness a breath, cough, nausea, vomiting, visual changes and headache. Exam Narrative: GENERAL: Comfortable, no acute distress HENMT: moist mucous membranes EYES: EOM intact b/l NECK: no lymphadenopathy RESPIRATORY: clear to auscultation CARDIO: RRR GI: soft, nontender, bowel sounds present SKIN: no rashes EXTREMITIES: Multiple digit amputation and bilateral lower extremity amputation Objective Data Vital Signs Vital Signs: Vital Signs -
[2023-04-25 17:53] LABS: Glucose Point of Care 127 mg/dl (65-105)
[2023-04-25] MEDS: INSULIN GLARGINE (*BKC) 100 UNITS/ML 32 UNITS SUB-Q (20:28)
[2023-04-25] MEDS: ATORVASTATIN 40 MG TABLET PO (20:32)
[2023-04-25 20:43] LABS: Glucose Point of Care 132 mg/dl (65-105)
[2023-04-26] VITALS (9 sets, daily range): BP systolic 127–164; BP diastolic 41–68; PULSE 63–91; RESP 16–18; TEMP 36.1–36.6; O2SAT 95–97
[2023-04-26 05:03] LABS: Hematocrit 34.2 % (37.0-47.0); Hemoglobin 10.6 g/dL (12.0-15.0); Mean Corpuscular Hemoglobin 31.3 pg (26-34); Mean Corpuscular Volume 100.9 fl (80-100); Mean Platelet Volume 12.4 fl (7.4-10.4); Platelet Count Result 121 k/mm3 (150-375); Red Blood Count 3.39 M/mm3 (4.2-5.4); White Blood Count 6.2 K/mm3 (4.5-10.0)
[2023-04-26 05:32] LABS: Alanine Aminotransferase 16 U/L (6-35); Albumin Level 3.4 g/dL (3.5-5.1); Alkaline Phosphatase 103 U/L (38-126); Anion Gap 15 mmol/L (8-16); Aspartate Amino Transferase 18 U/L (14-36); Bilirubin,Total 0.5 mg/dL (0.2-1.3); Blood Urea Nitrogen 49 mg/dL (7-17); Calcium 8.2 mg/dL (8.4-10.2); Carbon Dioxide 23 mmol/L (22-30); Chloride 102 mmol/L (98-107); Estimated CRCL calculation 7 ml/min; Estimated Glomerular Filt Rate 6; Glucose 185 mg/dL (65-110); Potassium 4.6 mmol/L (3.4-5.0); Sodium 140 mmol/L (137-145)
[2023-04-26] MEDS: INSULIN ASPART (*BKC) 100 UNITS/ML 10 UNITS SUB-Q (07:58)
[2023-04-26] MEDS: APIXABAN 5 MG TABLET PO (07:58)
[2023-04-26] MEDS: SEVELAMER CARBONATE 800 MG TABLET PO (07:58)
[2023-04-26] MEDS: PANTOPRAZOLE 40 MG TABLET PO (07:59)
[2023-04-26] MEDS: ISOSORBIDE MONONITRATE 30 MG TAB.ER.24H PO (07:59)
[2023-04-26] MEDS: CLOPIDOGREL BISULFATE 75 MG TABLET PO (07:59)
[2023-04-26] MEDS: ASPIRIN 81 MG ENTERIC TABLET PO (07:59)
[2023-04-26] MEDS: GABAPENTIN 400 MG CAPSULE PO (07:59)
[2023-04-26] MEDS: carvediloL 12.5 MG TABLET PO (07:59)
[2023-04-26 08:51] LABS: Glucose Point of Care 198 mg/dl (65-105)
--- NOTE | 2023-04-26 10:32 | P.PNNP_ITS ---
Progress Note: A&P Assessment and Plan (1) End stage renal disease: Code(s): N18.6 - End stage renal disease Status: Chronic Assessment and Plan: * HD on due to schedule * plan next HD session tomorrow and to resume T/T/S dialysis schedule * follow electrolytes, volume status, and clearance (2) Shortness of breath: Code(s): R06.02 - Shortness of breath Status: Acute Assessment and Plan: * improved (if not resolved) * likely related to several issues: * mild pulmonary edema * chest pain * underlying history of COPD * reactive airway disease * lung cancer(?) -- CT of chest on 01/11/23 with 13 mm nodule in right lung lower lobe suspicious for primary bronchogenic carcinoma * OSH ER CXR noted * fluid removal/ultrafiltration as tolerated with dialysis * follow respiratory status (3) Chest pain: Qualifiers: Chest pain type: unspecified Qualified Code(s): R07.9 - Chest pain, unspecified Code(s): R07.9 - Chest pain, unspecified Status: Acute Assessment and Plan: * no further symptoms at this time * appears to have resolved with improvement in shortness of breath -- due to rate control versus BiPAP use? * repeat troponins noted * recent cardiac catheterization results noted (02/28/23) -- ultimately, needs to follow-up with her primary medical insurance collector (4) Hypertension: Qualifiers: Hypertension type: renovascular hypertension Qualified Code(s): I15.0 - Renovascular hypertension Code(s): I10 - Essential (primary) hypertension Status: Chronic Assessment and Plan: * erratic at baseline -- questionable compliance with medications at baseline * resumed on home medications * complicated by issues with intradialytic hypotension * follow trend of hemodynamics (5) Anemia: Code(s): D64.9 - Anemia, unspecified Status: Chronic Assessment and Plan: * related to ESRD and frequent hospitalizations * Epogen with HD * follow H/H (6) Insulin dependent type 2 diabetes mellitus: Code(s): E11.9 - Type 2 diabetes mellitus without complications; Z79.4 - halfway (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 Will continue to follow. Subjective Date/time seen: 04/26/23 10:32 Interval history: Follow-up for end stage renal disease on hemodialysis. Breating/respiratory status is stable if not better at this time; no new issues/ events overnight or earlier this morning; no apparent distress noted; feels reasonably well. Exam Narrative: General: elderly female in NAD Heart: normal S1 and S2; no rub Lungs: clear anteriorly; decreased at bases Abdomen: soft, nontender, nondistended, positive bowel sounds Extremities: no cyanosis or clubbing; no edema; s/p left BKA and right AKA Skin: warm and intact Objective Data Vital Signs Vital Signs: Vital Signs Temp Pulse Resp BP Pulse Ox O2 Del Method 04/26/23 10:00 81 04/26/23 08:00 71 04/26/23 08:00 72 16 97 Room Air 04/26/23 08:00 97.7 F 72 16 164/68 H 97 04/26/23 07:59 91 04/26/23 05:40 63 04/26
--- NOTE | 2023-04-26 10:32 | PM.PNNEP ---
Progress Note: A&P Assessment and Plan (1) End stage renal disease: Code(s): N18.6 - End stage renal disease Status: Chronic Assessment and Plan: HD on due to schedule plan next HD session tomorrow and to resume T/T/S dialysis schedule follow electrolytes, volume status, and clearance (2) Shortness of breath: Code(s): R06.02 - Shortness of breath Status: Acute Assessment and Plan: improved (if not resolved) likely related to several issues: mild pulmonary edema chest pain underlying history of COPD reactive airway disease lung cancer(?) -- CT of chest on 01/11/23 with 13 mm nodule in right lung lower lobe suspicious for primary bronchogenic carcinoma OSH ER CXR noted fluid removal/ultrafiltration as tolerated with dialysis follow respiratory status (3) Chest pain: Qualifiers: Chest pain type: unspecified Qualified Code(s): R07.9 - Chest pain, unspecified Code(s): R07.9 - Chest pain, unspecified Status: Acute Assessment and Plan: no further symptoms at this time appears to have resolved with improvement in shortness of breath -- due to rate control versus BiPAP use? repeat troponins noted recent cardiac catheterization results noted (02/28/23) -- ultimately, needs to follow-up with her primary wildlife removal specialist (4) Hypertension: Qualifiers: Hypertension type: renovascular hypertension Qualified Code(s): I15.0 - Renovascular hypertension Code(s): I10 - Essential (primary) hypertension Status: Chronic Assessment and Plan: erratic at baseline -- questionable compliance with medications at baseline resumed on home medications complicated by issues with intradialytic hypotension follow trend of hemodynamics (5) Anemia: Code(s): D64.9 - Anemia, unspecified Status: Chronic Assessment and Plan: related to ESRD and frequent hospitalizations Epogen with HD follow H/H (6) Insulin dependent type 2 diabetes mellitus: Code(s): E11.9 - Type 2 diabetes mellitus without complications; Z79.4 - nursing home (current) use of insulin Status: Chronic Assessment and Plan: follow accu-cheks glycemic control per hospitalists Not opposed to discharge from renal perspective if otherwise medically stable. Will continue to follow. Subjective Date/time seen: 04/26/23 10:32 Interval history: Follow-up for end stage renal disease on hemodialysis. Breating/respiratory status is stable if not better at this time; no new issues/events overnight or earlier this morning; no apparent distress noted; feels reasonably well. Exam Narrative: General: elderly female in NAD Heart: normal S1 and S2; no rub Lungs: clear anteriorly; decreased at bases Abdomen: soft, nontender, nondistended, positive bowel sounds Extremities: no cyanosis or clubbing; no edema; s/p left BKA and right AKA Skin: warm and intact Objective Data Vital Signs Vital Signs: Vital Signs Temp Pulse Resp BP Pulse Ox O2 Del Method 04/26/23 10:00 81 04/26/23 08:00 71 04/26/23 08:00 72 16 97 Room Air 04/26/23 08:00 97.7 F 72 16 164/68 H 97 04/26/23 07:59 91 04/26/23 05:40 63 04/26/23 04:00 64 04/26/23 04:12 97.9 F 66 18 127/42 L 97 04/26/23 04:00 Room Air 04/26/23 02:00 73 04/26/23 00:42 97.0 F L 64 18 127/41 L 95 04/26/23 00:00 70 04/26/23 00:00 Room Air 04/25/23 22:00 69 04/25/23 20:00 70 04/25/23 20:00 Room Air 04/25/23 20:32 69 04/25/23 20:20 97.5 F L 73 18 140/45 L 96 04/25/23 18:14 165/50 H 04/25/23 18:00 70 04/25/23 16:00 97 F L 69 18 173/52 H 96 04/25/23 16:00 Room Air 04/25/23 12:00 Room Air 04/25/23 16:00 69 04/25/23 14:00 72 04/25/23 12:00 63 04/25/23 14:
--- NOTE | 2023-04-26 10:51 | PM.DS ---
DS: Admitting Diagnosis Discharge Date 04/26/23 Admitting Diagnosis Chest pain, end-stage renal disease, hypoxia DS: Discharge Diagnosis Discharge Diagnosis (1) Hypoxia: Code(s): R09.02 - Hypoxemia Status: Resolved (2) Atrial fibrillation: Qualifiers: Atrial fibrillation type: paroxysmal Qualified Code(s): I48.0 - Paroxysmal atrial fibrillation Code(s): I48.91 - Unspecified atrial fibrillation Status: Acute (3) End stage renal disease on dialysis: Code(s): N18.6 - End stage renal disease; Z99.2 - Dependence on renal dialysis Status: Acute (4) Chest pain: Qualifiers: Chest pain type: unspecified Qualified Code(s): R07.9 - Chest pain, unspecified Code(s): R07.9 - Chest pain, unspecified Status: Resolved (5) Chronic anemia: Code(s): D64.9 - Anemia, unspecified Status: Acute (6) Insulin dependent type 2 diabetes mellitus: Code(s): E11.9 - Type 2 diabetes mellitus without complications; Z79.4 - continuous churn buttermaker (current) use of insulin Status: Chronic (7) Hypertension: Qualifiers: Hypertension type: renovascular hypertension Qualified Code(s): I15.0 - Renovascular hypertension Code(s): I10 - Essential (primary) hypertension Status: Chronic DS: Summary Hospital Course Hospital Course: This is a 72-year-old female with a past medical history of end-stage renal disease hemodialysis on Saturday, chronic anemia, CAD, type 2 diabetes, AFib and hypertension that presented to the hospital due to shortness of breath and chest tightness. She was found to have an O2 saturation 70. She was put on BiPAP for short time then weaned to 2 L nasal cannula and eventually transition to room air. One seen by hospitalist group her shortness of breath and chest tightness resolved. She did have some hypertensive episodes which is not uncommon for her. nephrology cleared her for discharge. She is currently stable, on room air and at her baseline. Recommend to resume hemodialysis on regularly scheduled days. Labs and vital signs are stable and she is medically cleared for discharge at this time. Time Spent with Patient Time attestation: Total time spent providing and/or coordinating discharge services: Exam Narrative: GENERAL: Comfortable, no acute distress HENMT: moist mucous membranes EYES: EOM intact b/l NECK: no lymphadenopathy RESPIRATORY: clear to auscultation CARDIO: RRR GI: soft, nontender, bowel sounds present SKIN: no rashes EXTREMITIES: Multiple digit amputation and bilateral lower extremity amputation DS: Data Data Completed and Pending Labs on day of discharge: Labs from last 24 hours 04/26/23 04/26/23 04/25/23 07:47 04:49 20:11 WBC 6.2 RBC 3.39 L Hgb 10.6 L Hct 34.2 L MCV 100.9 H MCH 31.3 MCHC 31.0 L RDW 13.0 Plt Count 121 L MPV 12.4 H Sodium 140 Potassium 4.6 Chloride 102 Carbon Dioxide 23 Anion Gap 15 BUN 49 H D Creatinine 7.10 H Estim Creat Clear Calc 7 Estimated GFR 6 L Glucose 185 H POC Capillary Glucose 198 H 132 H Calcium 8.2 L Total Bilirubin 0.5 AST 18 ALT 16 Alkaline Phosphatase 103 Total Protein 7.0 Albumin 3.4 L 04/25/23 04/25/23 16:13 11:32 WBC RBC Hgb Hct MCV MCH MCHC RDW Plt Count MPV Sodium Potassium Chloride Carbon Dioxide Anion Gap BUN Creatinine Estim Creat Clear Calc Estimated GFR Glucose POC Capillary Glucose 127 H 257 H Calcium Total Bilirubin AST ALT Alkaline Phosphatase Total Protein Albumin Discharge Plan Discharge Attending physician on discharge: Devon Valenzuela Consulting providers: Elio Pereira Discharging Clinician: Razia Harris Patient Disposition: Home, Self-Care Activity: as tolerated Diet: diabetic and renal Discharge
== END 2023-04-26 13:13 | disposition home or self-care (01) ==
PROVIDERS: Internal Medicine Critical Care Medicine; Internal Medicine Nephrology; Student in an Organized Health Care Education/Training Program; Admitting Provider Hospitalist; PCP Internal Medicine; Visit Provider Hospitalist
DX: R09.02 Hypoxemia (principal); I48.0 Paroxysmal atrial fibrillation; F41.8 Other specified anxiety disorders; I25.10 Atherosclerotic heart disease of native coronary artery without angina pectoris; Z95.1 Presence of aortocoronary bypass graft; I12.0 Hypertensive chronic kidney disease with stage 5 chronic kidney disease or end stage renal disease; E11.22 Type 2 diabetes mellitus with diabetic chronic kidney disease; N18.6 End stage renal disease; Z99.2 Dependence on renal dialysis; D69.6 Thrombocytopenia, unspecified; Z86.16 Personal history of COVID-19; R94.31 Abnormal electrocardiogram [ECG] [EKG]; I25.2 Old myocardial infarction; D63.1 Anemia in chronic kidney disease; E78.5 Hyperlipidemia, unspecified; K30 Functional dyspepsia; E11.51 Type 2 diabetes mellitus with diabetic peripheral angiopathy without gangrene; E11.319 Type 2 diabetes mellitus with unspecified diabetic retinopathy without macular edema; Z66 Do not resuscitate; Z79.01 Long term (current) use of anticoagulants; Z79.02 Long term (current) use of antithrombotics/antiplatelets; Z79.82 Long term (current) use of aspirin; Z79.4 Long term (current) use of insulin; Z79.899 Other long term (current) drug therapy
CPT/HCPCS: 36415; 80053; 82948; 83036; 83735; 84100; 84484; 85025; 85027; 87340; 93005; A9270; G0257; G0378; J1644; J1815; J7030

== ENCOUNTER 2023-05-06 16:14 | Inpatient (IN) | payer MEDICARE, OTHER, SELFPAY ==
[2023-05-06] VITALS (30 sets, daily range): BP systolic 123–183; BP diastolic 60–84; PULSE 67–94; RESP 12–26; TEMP 36.4–38.5; O2SAT 93–100; BMI 34.4
--- NOTE | ~2023-05-06 | XR_ITS ---
EXAMINATION: XR chest 1V portable DATE: 05/06/2023 17:07 INDICATION: Shortness of breath. TECHNIQUE: A single frontal view of the chest was obtained. COMPARISON: Chest single view 03/26/2023, chest CT 01/11/2023 FINDINGS: There is a nodule in right lower lobe. There is a diffuse interstitial pattern, consistent mild pulmonary edema. No pleural effusion or pneumothorax. Cardiomegaly is noted. Median sternotomy w ires and mediastinal surgical clips are seen, likely from prior coronary artery bypass grafting. A ri ght internal jugular central venous catheter is seen with tip in the right atrium. IMPRESSION: 1. Nodule in right lung lower lobe suspicious for primary bronchogenic carcinoma. 2. Mild pulmonary edema. 3. Cardiomegaly. Reviewed, dictated and finalized at location E. [employer]OR P[employer]ER IMPRESSION: 1. Nodule in right lung lower lobe suspicious for primary bronchogenic carcinom a. 2. Mild pulmonary edema. 3. Cardiomegaly.
--- NOTE | 2023-05-06 16:23 | ECG_ITS ---
Measurements Intervals [place] Rate: 92 P: 98 [place]: 179 QRS: -81 QRSD: 156 T: 67 QT: 385 QTc: 477 Interpretive Statements SINUS RHYTHM LEFT AXIS DEVIATION [QRS AXIS < -30] RIGHT BUNDLE BRANCH BLOCK [120+ ms QRS DURATION, UPRIGHT V1, 40+ ms S IN I/aVL/V4/V5/V6] ABNORMAL ECG COMPARED TO ECG 04/25/2023 11:14:23 NO SIGNIFICANT CHANGE Electronically Signed On 05-06-2023 16:33:16 HALL COORDINATOR by Gilbert Hurley M.D.
[2023-05-06 16:30] LABS: Glucose Point of Care 168 mg/dl (65-105)
--- NOTE | 2023-05-06 16:30 | ED.AMS ---
HPI - Altered Mental Status General Chief Complaint: Altered Mental Status Stated Complaint: ams Time Seen by Provider: 05/06/23 16:15 History of Present Illness HPI narrative: Patient is a 72-year-old female who presents ER from her home with altered mental status. Typically oriented x3. Last dialysis was 2 days ago. Patient awake alert but not oriented. She is mumbling words. She is quite wheezy and found to be febrile upon arrival. There is no family with her this time. patient is not typically dependent on oxygen but is requiring supplemental at this time. Related Data Home Medications Medication Instructions Recorded Confirmed insulin degludec 100 unit/mL 32 unit subcut HS 11/03/19 04/24/23 subcutaneous solution (Tresiba U-100 Insulin) cetirizine 10 mg tablet 10 mg PO DAILY PRN allergies 02/06/22 04/24/23 insulin aspart U-100 100 unit/mL 10 unit subcut TIDWMEAL 02/28/22 04/24/23 (3 mL) subcutaneous pen (Novolog FlexPen U-100 Insulin aspart) pantoprazole 40 mg tablet,delayed 40 mg PO DAILY 02/28/22 04/24/23 release acetaminophen 500 mg capsule 1,000 mg PO Q6H PRN Pain 01/10/23 04/24/23 calcium carbonate 300 mg (750 mg) 2 tablet PO DAILY PRN Indigestion 01/10/23 04/24/23 chewable tablet (Tums E-X) nifedipine 30 mg tablet,extended 30 mg PO .MONWEDFRISUN 02/20/23 04/24/23 release apixaban 5 mg tablet 5 mg PO BID 03/26/23 04/24/23 aspirin 81 mg tablet 81 mg PO DAILY 04/24/23 04/24/23 atorvastatin 40 mg tablet 40 mg PO HS 04/24/23 04/24/23 carvedilol 12.5 mg tablet (Coreg) 12.5 mg PO Q12H 04/24/23 04/24/23 gabapentin 400 mg capsule 400 mg PO TID 04/24/23 04/24/23 losartan 100 mg tablet 100 mg PO .MONWEDFRISUN 04/24/23 04/24/23 nitroglycerin 0.4 mg sublingual 0.4 mg sublingual Q5MIN PRN Chest 11/22/23 11/22/23 tablet Pain Allergies Allergy/AdvReac Type Severity Reaction Status Date / Time No Known Allergies Allergy Verified 03/04/23 23:56 Review of Systems Review of Systems: ROS unobtainable: Yes unobtainable due to mental status [facility] Past Medical History Medical History Anxiety with depression Arterial vascular disease Chronic anemia Coronary artery disease COVID Digital arterial occlusive disease End-stage renal disease on hemodialysis Saturday, , Saturday. 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 Hemoglobin A1c was 6.8% in February 2020. NSTEMI (non-ST elevated myocardial infarction) Osteomyelitis Paroxysmal atrial fibrillation Peripheral vascular disease Renal osteodystrophy Thrombocytopenia Surgical History Surgical History Amputation of right forefoot Right 4th and 5th ray amputation in 04/2017. Right foot transmetatarsal amputation with partial fasciotomy due to wet gangrene, osteomyelitis, and necrotizing fasciitis in May 2017. 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 History of below-knee amputation of both lower extremities Left mugyp-xmt-jxno amputation in 2017. Right coyqu-aeq-perp amputation in 02/2020. 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 History of vascular surgery Right lower extremity stents in March 2017. Left lower extremity stent in 2014. Family History Family History Mother Diabetes mellitus Father Lung cancer Acute myocardial infarction Sibling Diabetes mellitus Social History Social History (Updated 04/24/23 @ 16:
[2023-05-06] MEDS: IPRATROPIUM BR 0.02% INH SOLN 0.5 MG/2.5 ML VIAL 1.5 MG INHALATION (16:45)
[2023-05-06] MEDS: ALBUTEROL SULFATE NEB 2.5 MG/3 ML INH 15 MG INHALATION (16:46)
[2023-05-06 16:52] LABS: Alveolar/Arterial O2 Gradient 76.8 mmHg; Base Excess ABG -0.4 mEq/l (+/-2.0); Fractional Inspired Oxygen 32 %; HCO3 ABG 25.8 mEq/l (22.0-26.0); Methemoglobin ABG 0.4 %THb (0-1.5); Oxygen Content ABG 16.8 %vol (16.0-22.0); Oxygen Saturation ABG 96.8 % (95.0-100.0); PCO2 ABG 48.3 mmHg (35.0-45.0); PO2 ABG 94.9 mmHg (80.0-100.0); PO2 FiO2 Ratio Arterial Blood 2.97 %; Reduced Hemoglobin 3.6 %THb (0-5.0); Total Hemoglobin 12.5 g/dL (12.0-18.0); pH ABG 7.345 (7.350-7.450)
[2023-05-06 16:53] LABS: Device NASAL CANNULA; Site Drawn RIGHT BRACHIAL
[2023-05-06 17:25] LABS: Basophils Percent Auto 0.4 % (0.2-1.2); Eosinophils Percent Auto 0.1 % (0-4.4); Hematocrit 36.5 % (37.0-47.0); Hemoglobin 11.3 g/dL (12.0-15.0); Immature Granulocyte Absolute 0.05 K/mm3 (0.00-0.031); Immature Granulocyte Percent A 0.6 % (0-0.5); Immature Platelet Fraction Pct 8.4 % (0.9-11.2); Lymphocytes Percent Auto 18.2 % (18.3-44.2); Mean Corpuscular Hemoglobin 30.9 pg (26-34); Mean Corpuscular Volume 99.7 fl (80-100); Mean Platelet Volume 13.1 fl (7.4-10.4); Monocytes Absolute Auto 0.6 K/mm3 (0.1-0.6); Monocytes Percent Auto 7.4 % (2.6-8.5); Neutrophils Percent Auto 73.3 % (45.5-73.1); Platelet Count Result 115 k/mm3 (150-375); Red Blood Count 3.66 M/mm3 (4.2-5.4); Red Cell Distribution Width 13.2 % (11.5-14.5); White Blood Count 8.2 K/mm3 (4.5-10.0)
[2023-05-06 17:35] LABS: INR 1.2; Prothrombin Time 16.3 Seconds (11.1-14.7)
[2023-05-06 17:36] LABS: Partial Thromboplastin Time 36.1 SECONDS (22.3-36.8)
[2023-05-06] MEDS: ACETAMINOPHEN 650 MG SUPPOSITORY RECTAL (17:54)
[2023-05-06 18:07] LABS: Appearance Urine Turbid (Clear); Bacteria Urine 2+ /hpf; Bilirubin Urine Negative (Negative); Blood Urine 3+ (Negative); Color Urine Yellow (Yellow); Glucose Urine UA 1+ mg/dL (Negative); Ketones Urine Negative (Negative); Leukocyte Esterase Ur 3+ LEU/UL (Negative); Need Manual Microscopic Reviewed; Nitrate Urine Negative (Negative); Protein Urine 4+ mg/dL (Negative); RBC Urine >100 /hpf (0-2); Specific Grav Ur 1.018 (1.001-1.035); Squamous Epithelial Cell Urine Moderate /hpf (Few); Urobilinogen Urine 0.2 mg/dL (<2.0); WBC Urine >100 /hpf; pH Urine 5.5 (5.0-9.0)
[2023-05-06 18:09] LABS: Add Urine Microscopic? YES
[2023-05-06 18:19] LABS: Alanine Aminotransferase 40 U/L (6-35); Albumin Level 3.6 g/dL (3.5-5.1); Alkaline Phosphatase 115 U/L (38-126); Anion Gap 11 mmol/L (8-16); Aspartate Amino Transferase 241 U/L (14-36); Bilirubin,Total 0.5 mg/dL (0.2-1.3); Blood Urea Nitrogen 60 mg/dL (7-17); Calcium 8.3 mg/dL (8.4-10.2); Carbon Dioxide 25 mmol/L (22-30); Chloride 99 mmol/L (98-107); Estimated CRCL calculation 6 ml/min; Estimated Glomerular Filt Rate 6; Glucose 187 mg/dL (65-110); Potassium 5.1 mmol/L (3.4-5.0); Sodium 135 mmol/L (137-145)
[2023-05-06 19:30] LABS: Influenza A QL RT-PCR Negative (Negative); Influenza B QL RT-PCR Negative (Negative); SARS-CoV-2 RNA PCR Positive (Negative)
--- NOTE | 2023-05-06 20:02 | PM.IMHP ---
H&P: HPI History of Present Illness Date/Time: 05/06/23 19:00 Chief Complaint: Confusion. Narrative: This is a 72-year-old female with coronary artery disease with history of CABG peripheral vascular disease status post bilateral lower extremity amputations, insulin-dependent diabetes, end-stage renal disease on hemodialysis, hypertension, and chronic anemia who presented to the emergency department for evaluation of confusion. She is well known to the hospitalist service from frequent admissions over the years. She has been in and out of the hospital recently with chest pain and shortness of breath. She was last discharged from this facility on 04/26/2023. She has apparently been her usual state of health since that time and I have been told that she has been compliant with dialysis. She lives at home with her sister who called 911 as she has been confused and mumbling words for the past couple of days. She had a temperature of 101.3? F on arrival to the ED. She tested positive for SARS-CoV-2 by PCR and her urine was positive for leukocyte esterase, greater than 100 wbc's, and 2+ bacteria. It is presumed that her confusion is related to infection. Brain CT was not ordered and at the time my evaluation her exam findings are consistent with her baseline aside from the fact that she does seem to be a bit confused. She complains of a mild cough and sore throat but nothing else. She was unaware that she had a fever. She denies abdominal pain and back pain. She has not noticed any dysuria (she does still urinate). She feels generally weak but denies focal weakness and paresthesias. Review of Systems Review of Systems: Twelve systems were reviewed but limited as she is a bit confused. She reports no concerns aside from those listed above. [facility] Past Medical History Medical History (Updated 05/07/23 @ 01:54 by Susan Escudero PA-C) Anxiety with depression Arterial vascular disease Chronic anemia Coronary artery disease COVID Digital arterial occlusive disease End-stage renal disease on hemodialysis Saturday, , Saturday. 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 Hemoglobin A1c was 6.8% in February 2020. Osteomyelitis Paroxysmal atrial fibrillation Peripheral vascular disease Renal osteodystrophy Thrombocytopenia Surgical History Surgical History Amputation of right forefoot Right 4th and 5th ray amputation in 04/2017. Right foot transmetatarsal amputation with partial fasciotomy due to wet gangrene, osteomyelitis, and necrotizing fasciitis in May 2017. 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 History of below-knee amputation of both lower extremities Left sjtic-ful-dafb amputation in 2017. Right pamum-xap-jpwi amputation in 02/2020. 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 History of vascular surgery Right lower extremity stents in March 2017. Left lower extremity stent in 2014. Family History Family History Mother Diabetes mellitus Father Lung cancer Acute myocardial infarction Sibling Diabetes mellitus Social History Social History (Updated 05/07/23 @ 01:51 by Susan Escudero PA-C) Social History: Surrogate medical decision maker: Kierra Blanton (sister) or Cyndi Blanton (daughter). Code Status: DNR/DNI. Smoking packs per day: 1 Smoking cigarettes per day: 20.0 Years smoked: 40 Smoking pack-years: 40.00 Smoking status:
[2023-05-06] MEDS: ALBUTEROL SULFATE NEB 2.5 MG/3 ML INH INHALATION (21:30)
[2023-05-06] MEDS: IPRATROPIUM BR 0.02% INH SOLN 0.5 MG/2.5 ML VIAL INHALATION (21:30)
[2023-05-06 21:44] LABS: Alveolar/Arterial O2 Gradient 27.9 mmHg; Base Excess ABG -1.6 mEq/l (+/-2.0); Carboxyhemoglobin 0.4 % THb (0-2.0); Fractional Inspired Oxygen 28 %; HCO3 ABG 24.3 mEq/l (22.0-26.0); Methemoglobin ABG 0.4 %THb (0-1.5); Oxygen Saturation ABG 98.1 % (95.0-100.0); Oxyhemoglobin 96.8 % THb (90.0-100.0); PCO2 ABG 45.7 mmHg (35.0-45.0); PO2 ABG 117.8 mmHg (80.0-100.0); PO2 FiO2 Ratio Arterial Blood 4.21 %; Reduced Hemoglobin 2.4 %THb (0-5.0); Total Hemoglobin 11.6 g/dL (12.0-18.0); pH ABG 7.343 (7.350-7.450)
[2023-05-06 21:45] LABS: Device NASAL CANNULA; Site Drawn RIGHT BRACHIAL
--- NOTE | 2023-05-06 23:52 | ADMGEN ---
This patient, Tawana Prado, was admitted to 2 Medical Room 250-01. Patient/family oriented to hospital policies and general routines including ID bracelet, bed and alarms, visiting hours, pain management, procedures, bathroom and other care routines, personal items, smoking policy, room service/diet, and visiting hours. Information on how to activate the Rapid Response Team has been discussed. Patient/Family are encouraged to report perceived risks to care and to ask questions if they do not understand what they are told or what they should do.
[2023-05-07] VITALS (34 sets, daily range): BP systolic 80–134; BP diastolic 26–66; PULSE 64–102; RESP 16–20; TEMP 35.5–37; O2SAT 94–100
[2023-05-07] MEDS: ALBUTEROL SULFATE NEB 2.5 MG/3 ML INH INHALATION ×2 (02:04→20:26)
[2023-05-07] MEDS: IPRATROPIUM BR 0.02% INH SOLN 0.5 MG/2.5 ML VIAL INHALATION ×2 (02:05→20:26)
[2023-05-07] MEDS: REMDESIVIR 200 MG/NS 250 ML 200 MG/250 ML BAG 250 MG IVPB (03:23)
[2023-05-07] MEDS: carvediloL 12.5 MG TABLET PO ×2 (03:30→20:53)
[2023-05-07 06:03] LABS: Hematocrit 33.2 % (37.0-47.0); Mean Corpuscular HGB Conc 30.1 g/dl (32-36); Mean Corpuscular Hemoglobin 31.2 pg (26-34); Mean Corpuscular Volume 103.4 fl (80-100); Mean Platelet Volume 12.7 fl (7.4-10.4); Platelet Count Result 103 k/mm3 (150-375); Red Blood Count 3.21 M/mm3 (4.2-5.4); Red Cell Distribution Width 13.2 % (11.5-14.5); White Blood Count 7.1 K/mm3 (4.5-10.0)
[2023-05-07 06:18] LABS: Anion Gap 14 mmol/L (8-16); Blood Urea Nitrogen 65 mg/dL (7-17); CRP 6.9 mg/dL (<1.0); Calcium 7.7 mg/dL (8.4-10.2); Carbon Dioxide 24 mmol/L (22-30); Chloride 100 mmol/L (98-107); Estimated CRCL calculation 5 ml/min; Estimated Glomerular Filt Rate 5; Glucose 151 mg/dL (65-110); Lactate Dehydrogenase 662 U/L (120-246); Magnesium 2.3 mg/dL (1.6-2.3); Phosphorus 8.1 mg/dL (2.5-4.5); Potassium 5.5 mmol/L (3.4-5.0); Sodium 138 mmol/L (137-145)
--- NOTE | 2023-05-07 07:19 | PM.IMPN ---
Progress Note: A&P Assessment and Plan (1) COVID: Code(s): U07.1 - COVID-19 Status: Acute Assessment and Plan: COVID + on admission On Remdesivir and Dexamethasone Isolation precautions On oxygen 2 L NC 05/07: oxygenation is improving and she is currently on room air. (2) Confusion: Code(s): R41.0 - Disorientation, unspecified Status: Acute Assessment and Plan: Likely 2/2 UTI 05/07: improving appears back to baseline. (3) Urinary tract infection: Code(s): N39.0 - Urinary tract infection, site not specified Status: Acute Assessment and Plan: UA concerning for UTI urine and blood cultures pending started on rocephin 05/07: Urine culture pending, blood cultures with NGTD. (4) End-stage renal disease on hemodialysis: Code(s): N18.6 - End stage renal disease; Z99.2 - Dependence on renal dialysis Status: Acute Assessment and Plan: MWF HD via right chest permcath. Receiving HD today (5) Hypertension: Qualifiers: Hypertension type: renovascular hypertension Qualified Code(s): I15.0 - Renovascular hypertension Code(s): I10 - Essential (primary) hypertension Status: Chronic Assessment and Plan: On home agents coreg, imdur, nifidipine, losartan All home agents resumed 05/07: blood pressures reviewed and are stable (6) Insulin dependent type 2 diabetes mellitus: Code(s): E11.9 - Type 2 diabetes mellitus without complications; Z79.4 - retirement (current) use of insulin Status: Chronic Assessment and Plan: A1C 7.0% in 04/2023 SSI, Lantus, hypoglycemia protocol, ac/hs accu checks. (7) Chronic obstructive pulmonary disease: Code(s): J44.9 - Chronic obstructive pulmonary disease, unspecified Status: Acute Assessment and Plan: Stable. No acute issues. No wheezing. Plan Feeding:Renal diet Analgesia:Tylenol Thromboembolic prophylaxis: Eliquis Ulcer prophylaxis: PPI Glycemic control: Lantus, SSI, accu checks, hypoglycemia protocol Bowel regimen: na Lines: PIV Antibiotics: Rocephin and anti-viral with remdesivir Disposition: lives at home with her sister. Can d/c back there when she is medically able. Subjective Date/time seen: 05/07/23 07:19 Interval history: HPI obtained from the chart, This is a 72-year-old female with coronary artery disease with history of CABG peripheral vascular disease status post bilateral lower extremity amputations, insulin-dependent diabetes, end-stage renal disease on hemodialysis, hypertension, and chronic anemia who presented to the emergency department for evaluation of confusion. She is well known to the hospitalist service from frequent admissions over the years. She has been in and out of the hospital recently with chest pain and shortness of breath. She was last discharged from this facility on 04/26/2023. She has apparently been her usual state of health since that time and I have been told that she has been compliant with dialysis. She lives at home with her sister who called 911 as she has been confused and mumbling words for the past couple of days. She had a temperature of 101.3? F on arrival to the ED. She tested positive for SARS-CoV-2 by PCR and her urine was positive for leukocyte esterase, greater than 100 wbc's, and 2+ bacteria. It is presumed that her confusion is related to infection. Brain CT was not ordered and at the time my evaluation her exam findings are consistent with her baseline aside from the fact that she does seem to be a bit confused. She complains of a mild cough and sore throat but nothing else. She was unaware that she had a fever. She denies abdominal pain and back pain. She has not noticed any dysuria (she does still urinate). She feels generally weak but denies focal weakness and paresthesias. 05/07: Patient is seen while in hemodialysis. She is doing better today than when she came in
[2023-05-07 08:28] LABS: Hepatitis B Surface Antigen Negative (Negative)
[2023-05-07] MEDS: ISOSORBIDE MONONITRATE 30 MG TAB.ER.24H PO (08:45)
[2023-05-07] MEDS: PANTOPRAZOLE 40 MG TABLET PO (08:45)
[2023-05-07] MEDS: GABAPENTIN 400 MG CAPSULE PO ×3 (08:45→18:15)
[2023-05-07] MEDS: APIXABAN 5 MG TABLET PO ×2 (08:45→20:53)
[2023-05-07] MEDS: ASPIRIN 81 MG ENTERIC TABLET PO (08:45)
[2023-05-07] MEDS: CLOPIDOGREL BISULFATE 75 MG TABLET PO (08:45)
[2023-05-07] MEDS: SEVELAMER CARBONATE 800 MG TABLET PO ×3 (08:45→18:15)
[2023-05-07 08:46] LABS: Hepatitis B Surface Anti Res Positive
[2023-05-07 08:46] LABS: Glucose Point of Care 176 mg/dl (65-105)
[2023-05-07 12:01] LABS: Glucose Point of Care 309 mg/dl (65-105)
[2023-05-07] MEDS: INSULIN ASPART (*BKC) 100 UNITS/ML SUB-Q ×2 (12:15→20:53)
[2023-05-07] MEDS: ALBUMIN HUMAN 25% 12.5 GM/50ML 50 ML IVPB (14:50)
--- NOTE | 2023-05-07 14:53 | PM.CNNEP ---
Assessment and Plan Assessment and plan (1) End stage renal disease: Status: Chronic Assessment and Plan: HD today continue T/T/S dialysis schedule while hospitalized follow electrolytes, volume status, and clearance (2) COVID: Code(s): U07.1 - COVID-19 Status: Acute Assessment and Plan: initiated on therapy with remdesivir and dexamethasone at high risk for complications of COVID isolation precautions (3) Acute UTI: Code(s): N39.0 - Urinary tract infection, site not specified Status: Acute Assessment and Plan: admission UA highly suggestive follow urine culture on antibiotics (4) Hypertension: Status: Chronic Assessment and Plan: reasonable control resumed home medications follow trend of hemodynamics post-HD (5) Anemia: Status: Chronic Assessment and Plan: due to ESRD Epogen with HD if Hgb < 10 follow trend of H/H (6) Insulin dependent type 2 diabetes mellitus: Status: Chronic Assessment and Plan: follow accuchecks glycemic control per hospitalists I will continue follow the patient with you while she remains hospitalized make further recommendations during her hospital course. Thank you for allowing me to participate in the care of this patient. History of Present Illness Reason for Consult Consult date: 05/07/23 Reason for consult: end stage renal disease Chief Complaint Chief complaint: Hypoxia, AMS, UTI History of Present Illness Narrative: The patient is a 72-year-old female with extensive past medical history as outlined below who presented to [facility] Emergency Room for further evaluation altered mental status. The patient was apparently in her usual state of health until recently when her sister noted her to be confused and mumbling words over the last few days. initially, her sister thought this was just random fluctuations in her baseline mentation but as the symptoms persisted, she brought the patient to the emergency room for further evaluation. Workup and evaluation emergency room demonstrated the patient to be febrile with a temperature of 101.3?. Routine blood test demonstrated labs consistent with her known history of end-stage renal disease and her urinalysis was somewhat suggestive of a possible urinary tract infection. Subsequent viral testing including influenza and RSV were negative but her COVID-19 testing was positive. It was assumed that her altered mentation was secondary to her acute viral infection and possible UTI. On further questioning, she did report a mild cough and sore throat but no other subjective symptoms Other than mild weakness and fatigue. Given these constellation of symptoms and laboratory findings, she was admitted the hospital for further evaluation therapy. Since her admission, it would seem that her mentation has improved back to her baseline although she was not aware that she had a fever in the ER. Renal consultation was requested due to her end-stage renal disease. The patient is quite familiar to me as I have taking care of her on multiple occasions whenever she is admitted here to [facility]. The patient normally dialyzes on a Saturday, , Saturday dialysis schedule at [facility] under the care of Dr. Clarke. She reports compliance with her dialysis treatments with her last treatment on 05/04/23.. She does not recall any issues or problems with dialysis on Saturday but does she know if she was able to get reach/get to her dry weight or not. Currently, at the time my visit, she is in no apparent distress and tolerating her dialysis treatment (seen on HD at 2:45PM). Review of Systems Review of Systems: As per HPI. [facility] Past Medical History Medical History (Updated 05/09/23 @ 15:01 by Layne Lutz APRN) Anxiety with depression Arterial vascular disease Chronic anem
--- NOTE | 2023-05-07 15:41 | PCRCNOTE ---
1400 Tx not given due to pt being in dialysis.
[2023-05-07] MEDS: ALBUMIN HUMAN 25% 12.5 GM/50ML 50 ML 50 GM (16:26)
[2023-05-07 18:21] LABS: Glucose Point of Care 193 mg/dl (65-105)
[2023-05-07 20:41] LABS: Glucose Point of Care 208 mg/dl (65-105)
[2023-05-07] MEDS: ATORVASTATIN 40 MG TABLET PO (20:53)
[2023-05-07] MEDS: INSULIN GLARGINE (*BKC) 100 UNITS/ML 32 UNITS SUB-Q (20:54)
[2023-05-07] MEDS: REMDESIVIR 100 MG/NS 250 ML 100 MG/250 ML BAG 250 MG IVPB (22:15)
[2023-05-08] VITALS (20 sets, daily range): BP systolic 103–152; BP diastolic 40–61; PULSE 64–79; RESP 18–20; TEMP 36–36.5; O2SAT 93–98
[2023-05-08] MEDS: NIFEdipine 30 MG TAB.ER.24 PO (02:17)
[2023-05-08] MEDS: LOSARTAN POTASSIUM 100 MG TABLET PO (02:17)
[2023-05-08] MEDS: IPRATROPIUM BR 0.02% INH SOLN 0.5 MG/2.5 ML VIAL INHALATION ×4 (02:45→22:09)
[2023-05-08] MEDS: ALBUTEROL SULFATE NEB 2.5 MG/3 ML INH INHALATION ×4 (02:45→22:06)
[2023-05-08 04:40] LABS: Basophils Percent Auto 0.2 % (0.2-1.2); Eosinophils Percent Auto 0.2 % (0-4.4); Hematocrit 27.5 % (37.0-47.0); Hemoglobin 8.4 g/dL (12.0-15.0); Immature Granulocyte Absolute 0.02 K/mm3 (0.00-0.031); Immature Granulocyte Percent A 0.5 % (0-0.5); Immature Platelet Fraction Pct 12.5 % (0.9-11.2); Lymphocytes Absolute Auto 1.24 K/mm3 (0.9-3.2); Lymphocytes Percent Auto 30.8 % (18.3-44.2); Mean Corpuscular HGB Conc 30.5 g/dl (32-36); Mean Corpuscular Hemoglobin 31.5 pg (26-34); Monocytes Absolute Auto 0.3 K/mm3 (0.1-0.6); Monocytes Percent Auto 8.2 % (2.6-8.5); Neutrophils Absolute Auto 2.4 K/mm3 (1.3-6.7); Neutrophils Percent Auto 60.1 % (45.5-73.1); Platelet Count Result 85 k/mm3 (150-375); Red Blood Count 2.67 M/mm3 (4.2-5.4); Red Cell Distribution Width 13.2 % (11.5-14.5)
[2023-05-08 06:30] LABS: Alanine Aminotransferase 24 U/L (6-35); Alkaline Phosphatase 76 U/L (38-126); Anion Gap 15 mmol/L (8-16); Aspartate Amino Transferase 108 U/L (14-36); Bilirubin,Total 0.3 mg/dL (0.2-1.3); Blood Urea Nitrogen 27 mg/dL (7-17); Calcium 6.8 mg/dL (8.4-10.2); Carbon Dioxide 22 mmol/L (22-30); Chloride 105 mmol/L (98-107); Estimated CRCL calculation 12 ml/min; Estimated Glomerular Filt Rate 12; Glucose 132 mg/dL (65-110); Potassium 3.4 mmol/L (3.4-5.0); Sodium 142 mmol/L (137-145)
[2023-05-08 08:53] LABS: Glucose Point of Care 237 mg/dl (65-105)
[2023-05-08] MEDS: ASPIRIN 81 MG ENTERIC TABLET PO (09:08)
[2023-05-08] MEDS: PANTOPRAZOLE 40 MG TABLET PO (09:08)
[2023-05-08] MEDS: carvediloL 12.5 MG TABLET PO ×2 (09:08→21:30)
[2023-05-08] MEDS: GABAPENTIN 400 MG CAPSULE PO ×3 (09:08→17:23)
[2023-05-08] MEDS: SEVELAMER CARBONATE 800 MG TABLET PO ×3 (09:08→17:23)
[2023-05-08] MEDS: CLOPIDOGREL BISULFATE 75 MG TABLET PO (09:08)
[2023-05-08] MEDS: APIXABAN 5 MG TABLET PO ×2 (09:08→21:30)
[2023-05-08] MEDS: ISOSORBIDE MONONITRATE 30 MG TAB.ER.24H PO (09:08)
[2023-05-08] MEDS: INSULIN ASPART (*BKC) 100 UNITS/ML SUB-Q ×2 (09:12→12:31)
--- NOTE | 2023-05-08 12:05 | PM.PNNEP ---
Progress Note: A&P Assessment and Plan (1) End stage renal disease: Code(s): N18.6 - End stage renal disease Status: Chronic Assessment and Plan: HD tomorrow continue T/T/S outpatient dialysis schedule follow electrolytes, volume status, and clearance (2) COVID: Code(s): U07.1 - COVID-19 Status: Acute Assessment and Plan: continue with remdesivir and dexamethasone at high risk for complications of COVID isolation precautions (3) Acute UTI: Code(s): N39.0 - Urinary tract infection, site not specified Status: Acute Assessment and Plan: admission UA highly suggestive follow urine culture -- negative at this time on antibiotics (4) Hypertension: Qualifiers: Hypertension type: renovascular hypertension Qualified Code(s): I15.0 - Renovascular hypertension Code(s): I10 - Essential (primary) hypertension Status: Chronic Assessment and Plan: reasonable control resumed on home medications follow trend of hemodynamics (5) Anemia: Code(s): D64.9 - Anemia, unspecified Status: Chronic Assessment and Plan: related to ESRD and frequent hospitalizations Epogen with HD follow H/H (6) Insulin dependent type 2 diabetes mellitus: Code(s): E11.9 - Type 2 diabetes mellitus without complications; 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 Subjective Date/time seen: 05/08/23 12:05 Interval history: Follow-up for end stage renal disease on hemodialysis. Tolerated dialysis treatment yesterday afternoon without any issues or problems; breathing/respiratory status is stable if not better; no other issues/events overnight or earlier this morning. Exam Narrative: General: elderly female in NAD Heart: normal S1 and S2; no rub Lungs: clear anteriorly; decreased at bases Abdomen: soft, nontender, nondistended, positive bowel sounds Extremities: no cyanosis or clubbing; no edema; s/p left BKA and right AKA Skin: warm and dry Objective Data Vital Signs Vital Signs: Vital Signs Temp Pulse Resp BP Pulse Ox O2 Del Method 05/08/23 12:00 97.0 F L 66 18 138/58 L 98 05/08/23 09:14 119/40 L 05/08/23 09:08 70 05/08/23 08:33 93 Room Air 05/08/23 08:31 72 20 05/08/23 08:11 79 20 05/08/23 04:58 96.8 F L 67 19 103/48 L 95 05/08/23 04:00 66 05/08/23 02:49 72 20 05/08/23 00:01 70 05/07/23 22:00 96.8 F L 101 H 19 126/66 94 05/07/23 21:00 Room Air 05/07/23 20:53 92 05/07/23 20:33 69 20 05/07/23 20:29 68 95 Room Air 05/07/23 20:27 68 20 Intake/Output Intake/Output: Intake & Output 05/05/23 05/06/23 05/07/23 05/08/23 23:59 23:59 23:59 23:59 Intake Total 50 1120 1620 Output Total 30 1000 Balance 20 120 1620 Meds/Results Medications: Active Medications Generic Name Dose Route Start Last Admin Trade Name Nba PRN Reason Stop Dose Admin Acetaminophen 650 mg 05/07/23 01:58 Acetaminophen 325 Mg Tablet PO Q6H PRN Mild Pain (1-3) or Fever Albuterol 2.5 mg 05/06/23 20:00 05/08/23 14:21 Albuterol Sulfate Neb 2.5 Mg/3 Ml Inh INHALATION 2.5 mg Q6HRT KEMI Administration Apixaban 5 mg 05/07/23 09:00 05/08/23 09:08 Apixaban 5 Mg Tablet PO 5 mg Q12HR KEMI Administration Aspirin 81 mg 05/07/23 09:00 05/08/23 09:08 Aspirin 81 Mg Enteric Tablet PO 06/06/23 08:59 81 mg DAILY KEMI Administration Atorvastatin Calcium 40 mg 05/07/23 21:00 05/07/23 20:53 Atorvastatin 40 Mg Tablet PO 40 mg HS KEMI Administration Calcium Carbonate 600 mg 05/07/23 10:21 Calcium Carbonate (Tums) 500 Mg (200 Mg Elemental) PO 06/06/23 10:20 DAILY PRN Indigestion Carvedilol 12.5 mg
--- NOTE | 2023-05-08 12:05 | P.PNNP_ITS ---
Progress Note: A&P Assessment and Plan (1) End stage renal disease: Code(s): N18.6 - End stage renal disease Status: Chronic Assessment and Plan: * HD tomorrow * continue T/T/S outpatient dialysis schedule * follow electrolytes, volume status, and clearance (2) COVID: Code(s): U07.1 - COVID-19 Status: Acute Assessment and Plan: * continue with remdesivir and dexamethasone * at high risk for complications of COVID * isolation precautions (3) Acute UTI: Code(s): N39.0 - Urinary tract infection, site not specified Status: Acute Assessment and Plan: * admission UA highly suggestive * follow urine culture -- negative at this time * on antibiotics (4) Hypertension: Qualifiers: Hypertension type: renovascular hypertension Qualified Code(s): I15.0 - Renovascular hypertension Code(s): I10 - Essential (primary) hypertension Status: Chronic Assessment and Plan: * reasonable control * resumed on home medications * follow trend of hemodynamics (5) Anemia: Code(s): D64.9 - Anemia, unspecified Status: Chronic Assessment and Plan: * related to ESRD and frequent hospitalizations * Epogen with HD * follow H/H (6) Insulin dependent type 2 diabetes mellitus: Code(s): E11.9 - Type 2 diabetes mellitus without complications; Z79.4 - group home (c 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 Subjective Date/time seen: 05/08/23 12:05 Interval history: Follow-up for end stage renal disease on hemodialysis. Tolerated dialysis treatment yesterday afternoon without any issues or problems; breathing/respiratory status is stable if not better; no other issues/events overnight or earlier this morning. Exam Narrative: General: elderly female in NAD Heart: normal S1 and S2; no rub Lungs: clear anteriorly; decreased at bases Abdomen: soft, nontender, nondistended, positive bowel sounds Extremities: no cyanosis or clubbing; no edema; s/p left BKA and right AKA Skin: warm and dry Objective Data Vital Signs Vital Signs: Vital Signs Temp Pulse Resp BP Pulse Ox O2 Del Method 05/08/23 12:00 97.0 F L 66 18 138/58 L 98 05/08/23 09:14 119/40 L 05/08/23 09:08 70 05/08/23 08:33 93 Room Air 05/08/23 08:31 72 20 05/08/23 08:11 79 20 05/08/23 04:58 96.8 F L 67 19 103/48 L 95 05/08/23 04:00 66 05/08/23 02:49 72 20 05/08/23 00:01 70 05/07/23 22:00 96.8 F L 101 H 19 126/66 94 05/07/23 21:00 Room Air 05/07/23 20:53 92 05/07/23 20:33 69 20 05/07/23 20:29 68 95 Room Air 05/07/23 20:27 68 20 Intake/Output Intake/Output: Intake & Output 05/05/23 05/06/23 05/07/23 05/08/23 23:59 23:59 23:59 23:59 Intake Total 50 1120 1620 Output Total 30 1000 Balance 20 120 1620 Meds/Results Medications: Active Medications Generic Name Dose Route Start Last Admin Tr
[2023-05-08 12:17] LABS: Glucose Point of Care 234 mg/dl (65-105)
--- NOTE | 2023-05-08 13:42 | PM.IMPN ---
Progress Note: A&P Assessment and Plan (1) COVID: Code(s): U07.1 - COVID-19 Status: Acute Assessment and Plan: COVID + on admission On Remdesivir and Dexamethasone Isolation precautions now on room air (2) Confusion: Code(s): R41.0 - Disorientation, unspecified Status: Acute Assessment and Plan: Likely 2/2 UTI appears back to baseline. (3) Urinary tract infection: Code(s): N39.0 - Urinary tract infection, site not specified Status: Acute Assessment and Plan: UA concerning for UTI urine and blood cultures pending continue rocephin (4) End-stage renal disease on hemodialysis: Code(s): N18.6 - End stage renal disease; Z99.2 - Dependence on renal dialysis Status: Chronic Assessment and Plan: MWF HD via right chest permcath. unable to finish dialysis yesterday due to soft pressures (5) Hypertension: Qualifiers: Hypertension type: renovascular hypertension Qualified Code(s): I15.0 - Renovascular hypertension Code(s): I10 - Essential (primary) hypertension Status: Chronic Assessment and Plan: On home agents coreg, imdur, nifidipine, losartan All home agents resumed blood pressures reviewed and are stable (6) Insulin dependent type 2 diabetes mellitus: Code(s): E11.9 - Type 2 diabetes mellitus without complications; Z79.4 - jail (current) use of insulin Status: Chronic Assessment and Plan: A1C 7.0% in 04/2023 SSI, Lantus, hypoglycemia protocol, ac/hs accu checks. (7) Chronic obstructive pulmonary disease: Code(s): J44.9 - Chronic obstructive pulmonary disease, unspecified Status: Chronic Assessment and Plan: Stable. No acute issues. No wheezing. Plan Feeding:Renal diet Analgesia:Tylenol Thromboembolic prophylaxis: Eliquis Ulcer prophylaxis: PPI Glycemic control: Lantus, SSI, accu checks, hypoglycemia protocol Bowel regimen: na Lines: PIV Antibiotics: Rocephin and anti-viral with remdesivir Disposition: lives at home with her sister. Can d/c back there when she is medically able. Subjective Date/time seen: 05/08/23 13:42 Interval history: Patient is sitting up in bed this morning eating breakfast. They were unable to finish her hemodialysis yesterday due to soft pressures. She is scheduled 3x week, nephrology consulted and following. She is doing better today, her current only concern is feeling constipated although she had 2 small BM during the night. Will order stool softener as needed. She denies shortness of breath or chest pain. She continues to sat fine on room air. Review of Systems Review of Systems: All systems reviewed & are unremarkable except as noted in HPI and below Exam Narrative: General: chronically ill appearing, well developed, well nourished, appears stated age. HEENT: normocephalic, atraumatic. Mucous membranes moist. EOMI, PERRLA. Respiratory: clear but diminished to auscultation bilaterally. No rales/rhonic/wheezes. Cardiovascular: RRR, normal S1-S2 upon auscultation. No murmurs, rubs. Abdomen: Soft, round, no pulsatile masses, non-distended and non-tender. No rebound, no guarding. No CVA tenderness, no hepatosplenomegaly. Bowel sounds present to all four quadrants. Extremities: No cyanosis, clubbing, or edema present. Pulses are palpable 2/2. Neuro: Alert and orientated x 4. PERRLA. Cranial nerves 2-12 intact without focal deficit. Skin: Warm, dry, and intact, without rash, erythema, or lesion. Psych: pleasant, cooperative, normal speech, normal affect, no hallucinations, no dysarthria Objective Data Vital Signs Vital Signs: Vital Signs - 24 hr 05/07/23 14:08 05/07/23 14:07 05/07/23 14:17 Temperature 96 F L 97.7 F Pulse Rate 68 68 67 Respiratory Rate 16 16 Blood Pressure 122/44 L 103/41 L 107/47 L Pulse Oximetry 97 Oxygen Delivery 05/07/23 14:30 05/07/23 14:45 12
[2023-05-08 15:33] LABS: Magnesium 2.2 mg/dL (1.6-2.3)
[2023-05-08 17:01] LABS: Glucose Point of Care 173 mg/dl (65-105)
[2023-05-08] MEDS: DOCUSATE SODIUM 100 MG CAPSULE PO (17:23)
[2023-05-08] MEDS: INSULIN GLARGINE (*BKC) 100 UNITS/ML 32 UNITS SUB-Q (21:29)
[2023-05-08] MEDS: ATORVASTATIN 40 MG TABLET PO (21:30)
[2023-05-08 21:46] LABS: Glucose Point of Care 192 mg/dl (65-105)
[2023-05-08] MEDS: REMDESIVIR 100 MG/NS 250 ML 100 MG/250 ML BAG 250 MG IVPB (21:55)
[2023-05-09] VITALS (29 sets, daily range): BP systolic 135–221; BP diastolic 54–102; PULSE 60–78; RESP 18–20; TEMP 35.8–37; O2SAT 91–96
[2023-05-09] MEDS: IPRATROPIUM BR 0.02% INH SOLN 0.5 MG/2.5 ML VIAL INHALATION ×2 (03:45→13:58)
[2023-05-09] MEDS: ALBUTEROL SULFATE NEB 2.5 MG/3 ML INH INHALATION ×2 (03:45→13:58)
[2023-05-09 05:53] LABS: Basophils Percent Auto 0.2 % (0.2-1.2); Eosinophils Percent Auto 0.1 % (0-4.4); Hematocrit 29.8 % (37.0-47.0); Hemoglobin 9.3 g/dL (12.0-15.0); Immature Granulocyte Absolute 0.03 K/mm3 (0.00-0.031); Immature Granulocyte Percent A 0.4 % (0-0.5); Immature Platelet Fraction Pct 11.6 % (0.9-11.2); Lymphocytes Absolute Auto 1.02 K/mm3 (0.9-3.2); Lymphocytes Percent Auto 12.6 % (18.3-44.2); Mean Corpuscular HGB Conc 31.2 g/dl (32-36); Mean Corpuscular Hemoglobin 31.6 pg (26-34); Mean Corpuscular Volume 101.4 fl (80-100); Mean Platelet Volume 12.8 fl (7.4-10.4); Monocytes Absolute Auto 0.3 K/mm3 (0.1-0.6); Monocytes Percent Auto 3.4 % (2.6-8.5); Neutrophils Absolute Auto 6.8 K/mm3 (1.3-6.7); Neutrophils Percent Auto 83.3 % (45.5-73.1); Platelet Count Result 93 k/mm3 (150-375); Red Blood Count 2.94 M/mm3 (4.2-5.4); Red Cell Distribution Width 13.2 % (11.5-14.5); White Blood Count 8.1 K/mm3 (4.5-10.0)
[2023-05-09 06:07] LABS: INR 1.6; Prothrombin Time 19.9 Seconds (11.1-14.7)
[2023-05-09 06:20] LABS: Alanine Aminotransferase 23 U/L (6-35); Albumin Level 3.4 g/dL (3.5-5.1); Alkaline Phosphatase 80 U/L (38-126); Anion Gap 12 mmol/L (8-16); Aspartate Amino Transferase 69 U/L (14-36); Bilirubin,Total 0.4 mg/dL (0.2-1.3); Blood Urea Nitrogen 56 mg/dL (7-17); Calcium 7.3 mg/dL (8.4-10.2); Carbon Dioxide 24 mmol/L (22-30); Chloride 101 mmol/L (98-107); Estimated CRCL calculation 7 ml/min; Estimated Glomerular Filt Rate 6; Glucose 112 mg/dL (65-110); Potassium 4.4 mmol/L (3.4-5.0); Sodium 137 mmol/L (137-145)
[2023-05-09] MEDS: SEVELAMER CARBONATE 800 MG TABLET PO ×3 (08:32→19:02)
[2023-05-09] MEDS: ISOSORBIDE MONONITRATE 30 MG TAB.ER.24H PO (08:32)
[2023-05-09] MEDS: GABAPENTIN 400 MG CAPSULE PO ×3 (08:32→19:02)
[2023-05-09] MEDS: PANTOPRAZOLE 40 MG TABLET PO (08:32)
[2023-05-09] MEDS: carvediloL 12.5 MG TABLET PO (08:33)
[2023-05-09] MEDS: ASPIRIN 81 MG ENTERIC TABLET PO (08:33)
[2023-05-09] MEDS: CLOPIDOGREL BISULFATE 75 MG TABLET PO (08:33)
[2023-05-09] MEDS: APIXABAN 5 MG TABLET PO (08:33)
[2023-05-09 08:34] LABS: Glucose Point of Care 127 mg/dl (65-105)
[2023-05-09 11:41] LABS: Glucose Point of Care 196 mg/dl (65-105)
--- NOTE | 2023-05-09 12:19 | PCRCNOTE ---
Window of time for administration has passed. See next scheduled administration.
--- NOTE | 2023-05-09 14:32 | PC.NURSE ---
Report called to Heath JOHN in dialysis.
--- NOTE | 2023-05-09 14:45 | PC.NURSE ---
To dialysis via bed.
--- NOTE | 2023-05-09 14:55 | PM.DS ---
DS: Admitting Diagnosis Discharge Date 05/09/23 Admitting Diagnosis shortness of breath DS: Discharge Diagnosis Discharge Diagnosis (1) COVID: Code(s): U07.1 - COVID-19 Status: Acute Assessment and Plan: COVID + on admission will d/c on PO DEXA for final 7 doses (2) Confusion: Code(s): R41.0 - Disorientation, unspecified Status: Resolved Assessment and Plan: Likely 2/2 UTI, back to baseline (3) Urinary tract infection: Code(s): N39.0 - Urinary tract infection, site not specified Status: Resolved Assessment and Plan: UA concerning for UTI BC pending d/c rocephin as urine culture was clean (4) End-stage renal disease on hemodialysis: Code(s): N18.6 - End stage renal disease; Z99.2 - Dependence on renal dialysis Status: Chronic Assessment and Plan: MWF HD via right chest permcath. to resume hemodialysis outpatient (5) Hypertension: Qualifiers: Hypertension type: renovascular hypertension Qualified Code(s): I15.0 - Renovascular hypertension Code(s): I10 - Essential (primary) hypertension Status: Chronic Assessment and Plan: On home agents coreg, imdur, nifidipine, losartan All home agents resumed blood pressures reviewed and are stable (6) Insulin dependent type 2 diabetes mellitus: Code(s): E11.9 - Type 2 diabetes mellitus without complications; Z79.4 - intermediate (current) use of insulin Status: Chronic Assessment and Plan: A1C 7.0% in 04/2023 resume home regimen monitor BS while on dexa (7) Chronic obstructive pulmonary disease: Code(s): J44.9 - Chronic obstructive pulmonary disease, unspecified Status: Chronic Assessment and Plan: Stable. No acute issues. No wheezing. DS: Summary Hospital Course Hospital Course: Patient is a 72-year-old female with coronary artery disease with history of CABG, peripheral vascular disease status post bilateral lower extremity amputations, insulin-dependent diabetes, end-stage renal disease on hemodialysis, hypertension, and chronic anemia admitted from the emergency department for evaluation of confusion. She is well known to the hospitalist service from frequent admissions over the years. She has been in and out of the hospital recently with chest pain and shortness of breath. She was last discharged from this facility on 04/26/2023. She lives at home with her sister who called 911 as she has been confused and mumbling words for the past couple of days. She had a temperature of 101.3? F on arrival to the ED. She tested positive for SARS-CoV-2 by PCR and her urine was positive for leukocyte esterase, greater than 100 wbc's, and 2+ bacteria. It is presumed that her confusion is related to infection. She is satting fine on room air, feeling better this morning. She is not in any acute distress and would like to go home today. Discussed with nephrology and nephrology is fine with her d/c today after hemodialysis. Will finish her course of steroids at home, d/c Rocephin as her urine culture came back with no growth. BC still pending, will f/u should something pop up. Status at Discharge Functional status at discharge: wheelchair bound Overall status at discharge: patient is back to baseline Time Spent with Patient Time attestation: Total time spent providing and/or coordinating discharge services: Exam Narrative: General: chronically ill appearing, well developed, well nourished, appears stated age. HEENT: normocephalic, atraumatic. Mucous membranes moist. EOMI, PERRLA. Respiratory: clear but diminished to auscultation bilaterally. No rales/rhonic/wheezes. Cardiovascular: RRR, normal S1-S2 upon auscultation. No murmurs, rubs. Abdomen: Soft, round, no pulsatile masses, non-distended and non-tender. No rebound, no guarding. No CVA tenderness, no hepatosplenomegaly. Bowel sounds present to all four quadrants. Extremit
--- NOTE | 2023-05-09 15:22 | P.PNNP_ITS ---
Progress Note: A&P Assessment and Plan (1) End stage renal disease: Code(s): N18.6 - End stage renal disease Status: Chronic Assessment and Plan: * HD todat * continue T/T/S outpatient dialysis schedule * follow electrolytes, volume status, and clearance (2) COVID: Code(s): U07.1 - COVID-19 Status: Acute Assessment and Plan: * continue with remdesivir and dexamethasone * at high risk for complications of COVID * isolation precautions (3) Acute UTI: Code(s): N39.0 - Urinary tract infection, site not specified Status: Acute Assessment and Plan: * admission UA highly suggestive * follow urine culture -- negative at this time * on antibiotics (4) Hypertension: Qualifiers: Hypertension type: renovascular hypertension Qualified Code(s): I15.0 - Renovascular hypertension Code(s): I10 - Essential (primary) hypertension Status: Chronic Assessment and Plan: * reasonable control * resumed on home medications * follow trend of hemodynamics (5) Anemia: Code(s): D64.9 - Anemia, unspecified Status: Chronic Assessment and Plan: * related to ESRD and frequent hospitalizations * Epogen with HD * follow H/H (6) Insulin dependent type 2 diabetes mellitus: Code(s): E11.9 - Type 2 diabetes mellitus without complications; Z79.4 - [facility] (curr ent) use of insulin Status: Chronic Assessment and Plan: * follow accu-cheks * glycemic control per hospitalists Not opposed to discharge from renal perspective if other medically stable. Will continue to follow. Subjective Date/time seen: 05/09/23 15:22 Interval history: Follow-up for end stage renal disease on hemodialysis. Tolerating hemodialysis treatment at the time of my visit (seen on HD at 3:15PM); no apparent distress noted; breathing/respiratory status seems stable if not better; no other issues/events overnight or earlier this morning. Exam Narrative: General: elderly female in NAD Heart: normal S1 and S2; no rub Lungs: clear anteriorly; decreased at bases Abdomen: soft, nontender, nondistended, positive bowel sounds Extremities: no cyanosis or clubbing; no edema; s/p left BKA and right AKA Skin: warm and intact Objective Data Vital Signs Vital Signs: Vital Signs Temp Pulse Resp BP Pulse Ox O2 Del Method 05/09/23 15:15 61 203/94 H 05/09/23 15:00 61 188/87 H 05/09/23 14:55 61 192/88 H 05/09/23 14:46 97.5 F L 61 20 184/84 H 05/09/23 14:20 61 20 05/09/23 14:03 64 20 94 Room Air 05/09/23 13:58 64 20 05/09/23 13:54 96.4 F L 78 20 148/54 H 96 05/09/23 12:00 62 05/09/23 08:00 60 05/09/23 08:33 18 91 Room Air 05/09/23 08:33 65 05/09/23 06:00 98.3 F 65 18 162/66 H 91 05/09/23 04:00 66 05/09/23 03:46 67 20 05/09/23 00:00 62 05/08/23 22:20 72 20 05/08/23 22:09 70 20 05/08/23 20:00 66 05/08/23 21:30 64 05/08/23 20:30 97.7 F 64 18 152/61 H 96 Intake/Output Intake/Output: Intake & Output 05/06/23 05/07/23 05/08/23
--- NOTE | 2023-05-09 15:22 | PM.PNNEP ---
Progress Note: A&P Assessment and Plan (1) End stage renal disease: Code(s): N18.6 - End stage renal disease Status: Chronic Assessment and Plan: HD todat continue T/T/S outpatient dialysis schedule follow electrolytes, volume status, and clearance (2) COVID: Code(s): U07.1 - COVID-19 Status: Acute Assessment and Plan: continue with remdesivir and dexamethasone at high risk for complications of COVID isolation precautions (3) Acute UTI: Code(s): N39.0 - Urinary tract infection, site not specified Status: Acute Assessment and Plan: admission UA highly suggestive follow urine culture -- negative at this time on antibiotics (4) Hypertension: Qualifiers: Hypertension type: renovascular hypertension Qualified Code(s): I15.0 - Renovascular hypertension Code(s): I10 - Essential (primary) hypertension Status: Chronic Assessment and Plan: reasonable control resumed on home medications follow trend of hemodynamics (5) Anemia: Code(s): D64.9 - Anemia, unspecified Status: Chronic Assessment and Plan: related to ESRD and frequent hospitalizations Epogen with HD follow H/H (6) Insulin dependent type 2 diabetes mellitus: Code(s): E11.9 - Type 2 diabetes mellitus without complications; 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 Will continue to follow. Subjective Date/time seen: 05/09/23 15:22 Interval history: Follow-up for end stage renal disease on hemodialysis. Tolerating hemodialysis treatment at the time of my visit (seen on HD at 3:15PM); no apparent distress noted; breathing/respiratory status seems stable if not better; no other issues/events overnight or earlier this morning. Exam Narrative: General: elderly female in NAD Heart: normal S1 and S2; no rub Lungs: clear anteriorly; decreased at bases Abdomen: soft, nontender, nondistended, positive bowel sounds Extremities: no cyanosis or clubbing; no edema; s/p left BKA and right AKA Skin: warm and intact Objective Data Vital Signs Vital Signs: Vital Signs Temp Pulse Resp BP Pulse Ox O2 Del Method 05/09/23 15:15 61 203/94 H 05/09/23 15:00 61 188/87 H 12/07/23 14:55 61 192/88 H 05/09/23 14:46 97.5 F L 61 20 184/84 H 05/09/23 14:20 61 20 05/09/23 14:03 64 20 94 Room Air 05/09/23 13:58 64 20 05/09/23 13:54 96.4 F L 78 20 148/54 H 96 05/09/23 12:00 62 05/09/23 08:00 60 05/09/23 08:33 18 91 Room Air 05/09/23 08:33 65 05/09/23 06:00 98.3 F 65 18 162/66 H 91 05/09/23 04:00 66 05/09/23 03:46 67 20 05/09/23 00:00 62 05/08/23 22:20 72 20 05/08/23 22:09 70 20 05/08/23 20:00 66 05/08/23 21:30 64 05/08/23 20:30 97.7 F 64 18 152/61 H 96 Intake/Output Intake/Output: Intake & Output 05/06/23 05/07/23 05/08/23 05/09/23 23:59 23:59 23:59 23:59 Intake Total 50 1370 1620 360 Output Total 30 1000 Balance 20 370 1620 360 Meds/Results Medications: Active Medications Generic Name Dose Route Start Last Admin Trade Name Freq PRN Reason Stop Dose Admin Acetaminophen 650 mg 05/07/23 01:58 Acetaminophen 325 Mg Tablet PO Q6H PRN Mild Pain (1-3) or Fever Albuterol 2.5 mg 05/06/23 20:00 05/09/23 13:58 Albuterol Sulfate Neb 2.5 Mg/3 Ml Inh INHALATION 2.5 mg Q6HRT KEMI Administration Apixaban 5 mg 05/07/23 09:00 05/09/23 08:33 Apixaban 5 Mg Tablet PO 5 mg Q12HR KEMI Administration Aspirin 81 mg 05/07/23 09:00 05/09/23 08:33 Aspirin 81 Mg Enteric Tablet PO 06/06/23 08:59 81 mg DAILY KEMI Administration Atorvastatin Calcium 40
--- NOTE | 2023-05-09 18:55 | PC.NURSE ---
Returned from dialysis via bed.
[2023-05-09 19:00] LABS: Glucose Point of Care 120 mg/dl (65-105)
== END 2023-05-09 20:10 | disposition home or self-care (01) | DRG 177 ==
LOC: ANHED 19:35 → ANH3MEDSUR 20:54 → ANH2MED 23:04
PROVIDERS: Internal Medicine Nephrology; Nurse Practitioner Acute Care; Physician Assistant; Admitting Provider Family Medicine; Emergency Provider Emergency Medicine; PCP Internal Medicine; Visit Provider Family Medicine
DX: U07.1 COVID-19 (principal); N18.6 End stage renal disease; I12.0 Hypertensive chronic kidney disease with stage 5 chronic kidney disease or end stage renal disease; N39.0 Urinary tract infection, site not specified; R09.02 Hypoxemia; E11.22 Type 2 diabetes mellitus with diabetic chronic kidney disease; I25.10 Atherosclerotic heart disease of native coronary artery without angina pectoris; F41.8 Other specified anxiety disorders; E78.5 Hyperlipidemia, unspecified; E11.319 Type 2 diabetes mellitus with unspecified diabetic retinopathy without macular edema; E11.42 Type 2 diabetes mellitus with diabetic polyneuropathy; I48.0 Paroxysmal atrial fibrillation; D63.1 Anemia in chronic kidney disease; I73.9 Peripheral vascular disease, unspecified; N25.0 Renal osteodystrophy; D69.6 Thrombocytopenia, unspecified; Z99.2 Dependence on renal dialysis; I25.2 Old myocardial infarction; Z95.820 Peripheral vascular angioplasty status with implants and grafts; Z98.1 Arthrodesis status; Z89.512 Acquired absence of left leg below knee; Z89.611 Acquired absence of right leg above knee; Z95.1 Presence of aortocoronary bypass graft; Z98.42 Cataract extraction status, left eye; Z98.41 Cataract extraction status, right eye; Z89.022 Acquired absence of left finger(s); Z99.3 Dependence on wheelchair; Z79.4 Long term (current) use of insulin
CPT/HCPCS: 36415; 36600; 71045; 80048; 80053; 81001; 82248; 82375; 82728; 82805; 82948; 83050; 83615; 83735; 84100; 85025; 85027; 85055; 85610; 85730; 86140; 86706; 87040; 87086; 87088; 87340; 87636; 93005; 94640; 96365; 96367; 96375; 99285; A9270; G0257; G0378; J0248; J0696; J1100; J1644; J1815; J7030; P9047

== ENCOUNTER 2023-05-23 04:28 | Observation (INO) | payer MEDICARE, OTHER, SELFPAY ==
[2023-05-23] VITALS (51 sets, daily range): BP systolic 107–192; BP diastolic 37–93; PULSE 67–111; RESP 12–22; TEMP 27.8–37; O2SAT 94–100
--- NOTE | ~2023-05-23 | XR_ITS ---
Clinical Indication: Chest pain AP and lateral views of the chest: Comparison: 05/06/2023 Findings: Right-sided central venous line is unchanged. There is mild bibasilar haziness, suggestive of mild pulmonary edema. No pleural effusions. Cardiomediastinal silhouette is stable. Bones and sof t tissues are unremarkable. Impression: Probable mild bibasilar pulmonary edema. Correlate clinically for infection. Stable support line. Reviewed, dictated and finalized at location . R SALES REP Impression: Probable mild bibasilar pulmonary edema. Correlate clinically for infection. Stable support line.
--- NOTE | 2023-05-23 04:34 | ECG_ITS ---
Measurements Intervals [place] Rate: 70 P: 57 CA: 197 QRS: -88 QRSD: 149 T: 95 QT: 463 QTc: 501 Interpretive Statements SINUS RHYTHM MARKED LEFT AXIS DEVIATION [QRS AXIS < -30] RIGHT BUNDLE BRANCH BLOCK [120+ ms QRS DURATION, UPRIGHT V1, 40+ ms S IN I/aVL/V4/V5/V6] ABNORMAL ECG COMPARED TO ECG 05/06/2023 16:26:49 NO DIFFERENCE Electronically Signed On 05-23-2023 17:40:14 [employer] by Gilbert Hurley M.D.
[2023-05-23 05:16] LABS: Influenza A QL RT-PCR Negative (Negative); Influenza B QL RT-PCR Negative (Negative); RSV RNA, RT-PCR Negative (Negative); SARS-CoV-2 RNA PCR Positive (Negative)
[2023-05-23] MEDS: FAMOTIDINE 20 MG/2 ML VIAL IV PUSH (05:23)
[2023-05-23] MEDS: ASPIRIN 325 MG TABLET PO (05:23)
--- NOTE | 2023-05-23 05:27 | ED.SOB ---
HPI - SOB/Dyspnea General Chief Complaint: Shortness of Breath/Dyspnea Stated Complaint: sob Time Seen by Provider: 05/23/23 04:37 Source: patient Limitations: no limitations History of Present Illness HPI Narrative: Patient is a 72-year-old female presents to the emergency department complaining of chest pain, difficulty breathing, cough, burning in the middle of her throat. Patient states she has been having burning in the middle of her throat and a point to the neck region for the past 24 hours. Patient states she developed chest pain around 2:00 a.m. this morning when she is going to go urinate, pain is bilateral in the anterior superior aspects of her chest tightness to history is pain in the past but does not know what caused it, feels like something is smacking her chest, constant, has not noticed anything making the pain better or worse, has not tried anything for the pain, denies radiation of the pain the patient admits to associated shortness of breath with the chest pain has also been having a cough for the past approximate 12 hours the has minimal production of sputum that has not noticed any color to it. Patient admits to getting hemodialysis every Saturday and Saturday and received a full course of dialysis on Saturday and is due for dialysis again today. Patient's carpenter foreman is Dr. Jacobo. Patient denies use of oxygen over the bases but does admit to wearing oxygen which she gets dialysis 3 patient is to being a smoker. Patient denies nausea, vomiting, diarrhea, melena, hematochezia, dysuria, abdominal pain, numbness, weakness, recent injuries, recent illness, diaphoresis, rash, headache, neck pain, back pain. Related Data Home Medications Medication Instructions Recorded Confirmed insulin degludec 100 unit/mL 32 unit subcut HS 11/03/19 05/07/23 subcutaneous solution (Tresiba U-100 Insulin) cetirizine 10 mg tablet 10 mg PO DAILY PRN allergies 02/06/22 05/07/23 insulin aspart U-100 100 unit/mL 10 unit subcut TIDWMEAL 02/28/22 05/07/23 (3 mL) subcutaneous pen (Novolog FlexPen U-100 Insulin aspart) pantoprazole 40 mg tablet,delayed 40 mg PO DAILY 02/28/22 05/07/23 release acetaminophen 500 mg capsule 1,000 mg PO Q6H PRN Pain (Scale 01/10/23 05/07/23 Score 1-3) calcium carbonate 300 mg (750 mg) 2 tablet PO DAILY PRN Indigestion 01/10/23 05/07/23 chewable tablet (Tums E-X) nifedipine 30 mg tablet,extended 30 mg PO .SATWEDFRISUN 02/20/23 05/07/23 release apixaban 5 mg tablet 5 mg PO BID 03/26/23 05/07/23 aspirin 81 mg tablet 81 mg PO DAILY 04/24/23 05/07/23 atorvastatin 40 mg tablet 40 mg PO HS 04/24/23 05/07/23 carvedilol 12.5 mg tablet (Coreg) 12.5 mg PO Q12H 04/24/23 05/07/23 gabapentin 400 mg capsule 400 mg PO TID 04/24/23 05/07/23 losartan 100 mg tablet 100 mg PO .DFRISUN 04/24/23 05/07/23 nitroglycerin 0.4 mg sublingual 0.4 mg sublingual Q5MIN PRN Chest 04/24/23 05/07/23 tablet Pain Allergies Allergy/AdvReac Type Severity Reaction Status Date / Time No Known Allergies Allergy Verified 05/23/23 04:40 Review of Systems Review of Systems: A 10 system review of systems was completed on the patient and is negative except for what is stated in the HPI. Nursing and ancillary documentation was reviewed. [facility] Past Medical History Medical History (Updated 05/23/23 @ 06:20 by Eugenio Art DO) Anxiety with depression Arterial vascular disease Chronic anemia Coronary artery disease COVID Digital arterial occlusive disease End-stage renal disease on hemodialysis Saturday, , Saturday. 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 Hemoglobin A1c was 6.8% in February 2020. Osteomyelitis Paroxysmal atrial fibrillation Peripheral vascular disease Renal osteodystrophy Thrombocytopenia Surgical History Surgical History (Reviewed 05/07/23 @ 01:51 by Susan
[2023-05-23 05:32] LABS: Basophils Percent Auto 0.3 % (0.2-1.2); Eosinophils Absolute Auto 0.2 K/mm3 (0-0.3); Hematocrit 33.9 % (37.0-47.0); Hemoglobin 10.3 g/dL (12.0-15.0); Immature Granulocyte Absolute 0.02 K/mm3 (0.00-0.031); Immature Granulocyte Percent A 0.3 % (0-0.5); Immature Platelet Fraction Pct 10.7 % (0.9-11.2); Lymphocytes Absolute Auto 1.02 K/mm3 (0.9-3.2); Lymphocytes Percent Auto 13.9 % (18.3-44.2); Mean Corpuscular HGB Conc 30.4 g/dl (32-36); Mean Corpuscular Hemoglobin 31.6 pg (26-34); Mean Platelet Volume 13.4 fl (7.4-10.4); Monocytes Absolute Auto 0.4 K/mm3 (0.1-0.6); Monocytes Percent Auto 5.9 % (2.6-8.5); Neutrophils Absolute Auto 5.7 K/mm3 (1.3-6.7); Neutrophils Percent Auto 77.6 % (45.5-73.1); Platelet Count Result 85 k/mm3 (150-375); Red Blood Count 3.26 M/mm3 (4.2-5.4); Red Cell Distribution Width 14.1 % (11.5-14.5); White Blood Count 7.4 K/mm3 (4.5-10.0)
[2023-05-23 05:42] LABS: Alanine Aminotransferase 17 U/L (6-35); Albumin Level 3.6 g/dL (3.5-5.1); Alkaline Phosphatase 226 U/L (38-126); Anion Gap 10 mmol/L (8-16); Aspartate Amino Transferase 21 U/L (14-36); Bilirubin,Total 0.5 mg/dL (0.2-1.3); Blood Urea Nitrogen 56 mg/dL (7-17); Calcium 7.3 mg/dL (8.4-10.2); Carbon Dioxide 26 mmol/L (22-30); Chloride 102 mmol/L (98-107); Estimated Glomerular Filt Rate 7; Glucose 244 mg/dL (65-110); Lipase 351 U/L (23-300); Magnesium 2.1 mg/dL (1.6-2.3); Potassium 5.1 mmol/L (3.4-5.0); Sodium 138 mmol/L (137-145)
[2023-05-23 05:43] LABS: INR 1.3; Prothrombin Time 16.6 Seconds (11.1-14.7)
[2023-05-23 05:44] LABS: Partial Thromboplastin Time 40.8 SECONDS (22.3-36.8)
[2023-05-23 05:55] LABS: Troponin I 0.067 ng/mL (0.000-0.034)
[2023-05-23 05:59] LABS: D Dimer 0.53 ug/mL (<0.48)
[2023-05-23] MEDS: DEXTROSE 50% 25 GM/50 ML SYRINGE IV PUSH (06:28)
[2023-05-23] MEDS: SODIUM BICARBONATE 8.4% 50 MEQ/50 ML SYRINGE IV PUSH (06:28)
[2023-05-23] MEDS: SODIUM POLYSTYRENE SULFONONATE 15 GM/60 ML BTL 30 GM PO (06:28)
[2023-05-23] MEDS: INSULIN HUMAN REGULAR (*BKC) 100 UNITS/ML 10 UNITS IV PUSH (06:29)
--- NOTE | 2023-05-23 06:36 | PC.NURSE ---
When admin bicarb, syringe was shattered. This RN pulled another vial from [employer].
--- NOTE | 2023-05-23 07:15 | PC.NURSE ---
report received from weight shifter. pt sleeping. no distress noted. waiting bed assignment.
--- NOTE | 2023-05-23 07:15 | PC.NURSE ---
Repot given to ALVARO Madden at this time.
[2023-05-23 09:13] LABS: Troponin I 0.068 ng/mL (0.000-0.034)
[2023-05-23 12:02] LABS: Glucose Point of Care 190 mg/dl (65-105)
[2023-05-23 12:13] LABS: Troponin I 0.068 ng/mL (0.000-0.034)
--- NOTE | 2023-05-23 12:32 | PM.IMHP ---
H&P: HPI History of Present Illness Date/Time: 05/23/23 12:32 Chief Complaint: Shortness of breath Narrative: 72yo female with ESRD, DM, CAD, HTN and pAFib who presents with shortness of breath. Patient developed cough yesterday. No fever, chills or diaphoresis. Her throat was burning. She was having symptoms of odynophagia and dysphagia. No headache, vision changes, hearing changes or otalgia. No nausea, vomiting or diarrhea. No abdominal pain or back pain. She does still make urine 1-2 times a day and does complain of dysuria still. She has been having dysuria for about a week and was started on antibiotics 2-3 days ago without significant change in her symptoms. She does not recall the name of the antibiotic she is on. She is on hemodialysis every Saturday, and Saturday and did receive a full treatment her last dialysis visit. Patient is not on home oxygen but does use oxygen with dialysis at times. She is a smoker and continues to smoke 3-4 cigarettes a day. Patient developed chest pain this morning around 2:00 a.m.. If fell like ?someone hit me?. Pain was palpable and pleuritic. Made worse with palpation and with cough. Cough is productive. Because of the worsening symptoms she present to the emergency room the lpta hours of admission. Emergency room, she was hemodynamically stable. She was on 4 L at 94%. EKG showed normal sinus rhythm with right bundle branch block and possible old septal CO. her right bundle branch block is chronic. Chest x-ray showed probable mild bibasilar pulmonary edema. She was COVID positive. She was seen here on May 06 and tested positive as well for COVID. Potassium is 5.1. Troponin was elevated 0.068 but flat and much lower than prior values. Lipase was 351. White count was normal. Hemoglobin 10.3 which is within her baseline. Platelet count 85 K which is similar to prior findings. She was treated with aspirin, Pepcid, sodium bicarb, insulin and Kayexalate. She was admitted for further care. Review of Systems Review of Systems: All systems reviewed & are unremarkable except as noted in HPI and below [facility] Past Medical History Medical History Anxiety with depression Arterial vascular disease Chronic anemia Coronary artery disease COVID Digital arterial occlusive disease End-stage renal disease on hemodialysis Saturday, , Saturday. 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 Hemoglobin A1c was 6.8% in February 2020. Osteomyelitis Paroxysmal atrial fibrillation Peripheral vascular disease Renal osteodystrophy Thrombocytopenia Surgical History Surgical History Amputation of right forefoot Right 4th and 5th ray amputation in 04/2017. Right foot transmetatarsal amputation with partial fasciotomy due to wet gangrene, osteomyelitis, and necrotizing fasciitis in May 2017. 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 History of below-knee amputation of both lower extremities Left [id number] amputation in 2017. Right [id number] amputation in 02/2020. 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 History of vascular surgery Right lower extremity stents in March 2017. Left lower extremity stent in 2014. Family History Family History Mother Diabetes mellitus Father Lung cancer Acute myocardial infarction Sibling Diabetes mellitus
[2023-05-23 13:18] LABS: Albumin Level 3.3 g/dL (3.5-5.1); Anion Gap 9 mmol/L (8-16); Blood Urea Nitrogen 57 mg/dL (7-17); Calcium 7.1 mg/dL (8.4-10.2); Carbon Dioxide 27 mmol/L (22-30); Chloride 103 mmol/L (98-107); Estimated Glomerular Filt Rate 6; Glucose 200 mg/dL (65-110); Phosphorus 6.4 mg/dL (2.5-4.5); Sodium 139 mmol/L (137-145)
--- NOTE | 2023-05-23 13:35 | PM.CNNEP ---
Assessment and Plan Assessment and plan (1) End stage renal disease on dialysis: Code(s): N18.6 - End stage renal disease; Z99.2 - Dependence on renal dialysis Status: Acute Assessment and Plan: The patient has end-stage renal disease. This is due to diabetes and hypertension. She is under the care of Dr. Clarke in [place] but he does not come here. She has volume overload to mild degree and is due for dialysis today . We will proceed with dialysis. I talked with the dialysis nurse and she is on the schedule for today. Her potassium is a little high so we will use a 2 K bath. We will remove 2-3 L as tolerated by her blood pressure. (2) Hypoxic respiratory failure: Code(s): J96.91 - Respiratory failure, unspecified with hypoxia Status: Acute Assessment and Plan: The patient has volume overload. We will remove some fluid. The patient also tested positive for COVID. She was on isolation but now her isolation was discontinued because she has chronically positive test. She is on supportive care for this with oxygen supplementation as needed. She is not on oxygen at this moment. (3) COVID: Code(s): U07.1 - COVID-19 Status: Acute Assessment and Plan: the patient is getting supportive care. Chronically positive test and so no need for isolation according to Infectious Disease. (4) Acute hyperkalemia: Code(s): E87.5 - Hyperkalemia Status: Acute Assessment and Plan: The patient received some Kayexalate. A repeat potassium is 5.0 (5) Hypertension: Qualifiers: Hypertension type: renovascular hypertension Qualified Code(s): I15.0 - Renovascular hypertension Code(s): I10 - Essential (primary) hypertension Status: Chronic Assessment and Plan: blood pressure is somewhat generous. At home she is on carvedilol losartan and nifedipine. We will continue these medication and remove fluid in dialysis. (6) Insulin dependent type 2 diabetes mellitus: Code(s): E11.9 - Type 2 diabetes mellitus without complications; Z79.4 - detention (current) use of insulin Status: Chronic Assessment and Plan: She is on Accu-Cheks and sliding scale insulin. Will be managed by the hospitalists. (7) Erythropoietin deficiency anemia: Code(s): D63.1 - Anemia in chronic kidney disease Status: Acute Assessment and Plan: Hemoglobin is in the low 10s. Will give Epogen on dialysis (8) Renal osteodystrophy: Code(s): N25.0 - Renal osteodystrophy Status: Acute Assessment and Plan: will check a phosphorus in the morning (9) Coronary artery disease with hx of myocardial infarct w/o hx of CABG: Code(s): I25.10 - Atherosclerotic heart disease of [place] coronary artery without angina pectoris; I25.2 - Old myocardial infarction Status: Acute Assessment and Plan: the patient has minimally elevated troponins. These were stable 4hours apart. Likely related to her renal insufficiency but ultimately will leave the evaluation of her chest pain up to the hospitalists. History of Present Illness Reason for Consult Consult date: 05/23/23 Chief Complaint Chief complaint: Elevated Troponin History of Present Illness Narrative: Tawana is a very pleasant 72-year-old lady who has multiple medical problems including end-stage renal disease on dialysis Tuesdays and Saturdays under Dr. Clarke in [place], coronary artery disease, atrial fibrillation, hyperlipidemia, hypertension, diabetes, peripheral vascular disease, anemia, renal osteodystrophy, and anxiety with depression. The patient came into the hospital with shortness of breath. She says she woke up this morning with some chest pain. If felt worse when she pushed on it or if she coughed. She did not have a fever. She was short of breath at the time. Things continue to worsen as the night
--- NOTE | 2023-05-23 15:00 | PC.NURSE ---
Off floor to dialysis room via bed with ALVARO Velazquez at [facility].
[2023-05-23 15:45] LABS: Hepatitis B Surface Antigen Negative (Negative)
[2023-05-23 20:40] LABS: Glucose Point of Care 133 mg/dl (65-105)
[2023-05-23] MEDS: ATORVASTATIN 40 MG TABLET PO (20:49)
[2023-05-23] MEDS: carvediloL 12.5 MG TABLET PO (20:49)
[2023-05-24] VITALS (10 sets, daily range): BP systolic 81–152; BP diastolic 37–47; PULSE 62–88; RESP 14–96; TEMP 36.1–36.4; O2SAT 95–100
[2023-05-24] MEDS: MIDODRINE HCL 2.5 MG TABLET 15 MG PO (01:40)
[2023-05-24 05:33] LABS: Hemoglobin 9.4 g/dL (12.0-15.0); Immature Platelet Fraction Pct 12.3 % (0.9-11.2); Mean Corpuscular HGB Conc 30.3 g/dl (32-36); Mean Corpuscular Hemoglobin 31.3 pg (26-34); Mean Corpuscular Volume 103.3 fl (80-100); Mean Platelet Volume 13.1 fl (7.4-10.4); Platelet Count Result 94 k/mm3 (150-375); Red Cell Distribution Width 14.2 % (11.5-14.5); White Blood Count 6.7 K/mm3 (4.5-10.0)
[2023-05-24 05:47] LABS: Anion Gap 3 mmol/L (8-16); Blood Urea Nitrogen 25 mg/dL (7-17); Calcium 7.7 mg/dL (8.4-10.2); Carbon Dioxide 35 mmol/L (22-30); Chloride 98 mmol/L (98-107); Estimated Glomerular Filt Rate 11; Glucose 99 mg/dL (65-110); Magnesium 1.9 mg/dL (1.6-2.3); Phosphorus 4.5 mg/dL (2.5-4.5); Potassium 4.1 mmol/L (3.4-5.0); Sodium 136 mmol/L (137-145)
[2023-05-24 08:26] LABS: Glucose Point of Care 100 mg/dl (65-105)
[2023-05-24] MEDS: ISOSORBIDE MONONITRATE 30 MG TAB.ER.24H PO (08:52)
[2023-05-24] MEDS: carvediloL 12.5 MG TABLET PO (08:52)
[2023-05-24] MEDS: LOSARTAN POTASSIUM 100 MG TABLET PO (08:52)
[2023-05-24] MEDS: APIXABAN 5 MG TABLET PO ×2 (08:52→16:36)
[2023-05-24] MEDS: PANTOPRAZOLE 40 MG TABLET PO (08:52)
[2023-05-24] MEDS: GABAPENTIN 400 MG CAPSULE PO ×3 (08:52→16:37)
[2023-05-24] MEDS: ASPIRIN 81 MG CHEWABLE TABLET PO (08:53)
[2023-05-24 12:16] LABS: Glucose Point of Care 200 mg/dl (65-105)
[2023-05-24] MEDS: INSULIN ASPART (*BKC) 100 UNITS/ML SUB-Q (12:39)
--- NOTE | 2023-05-24 12:56 | PM.PNNEP ---
Progress Note: A&P Assessment and Plan (1) End stage renal disease on dialysis: Code(s): N18.6 - End stage renal disease; Z99.2 - Dependence on renal dialysis Status: Acute Assessment and Plan: The patient has end-stage renal disease. This is due to diabetes and hypertension. She is under the care of Dr. Clarke in [place] but he does not come here. Volume status looks better today. Potassium is back to normal will treat again tomorrow if she is still here. No objection to discharge if okay from the other doctors. (2) Hypoxic respiratory failure: Code(s): J96.91 - Respiratory failure, unspecified with hypoxia Status: Acute Assessment and Plan: This is better. (3) COVID: Code(s): U07.1 - COVID-19 Status: Acute Assessment and Plan: the patient is getting supportive care. Chronically positive test and so no need for isolation according to Infectious Disease. (4) Acute hyperkalemia: Code(s): E87.5 - Hyperkalemia Status: Acute Assessment and Plan: Potassium is okay now (5) Hypertension: Qualifiers: Hypertension type: renovascular hypertension Qualified Code(s): I15.0 - Renovascular hypertension Code(s): I10 - Essential (primary) hypertension Status: Chronic Assessment and Plan: blood pressure is better. last check (6) Insulin dependent type 2 diabetes mellitus: Code(s): E11.9 - Type 2 diabetes mellitus without complications; Z79.4 - [facility] (current) use of insulin Status: Chronic Assessment and Plan: She is on Accu-Cheks and sliding scale insulin. Will be managed by the hospitalists. (7) Erythropoietin deficiency anemia: Code(s): D63.1 - Anemia in chronic kidney disease Status: Acute Assessment and Plan: Hemoglobin is 9.4 today. She received EPO yesterday (8) Renal osteodystrophy: Code(s): N25.0 - Renal osteodystrophy Status: Acute Assessment and Plan: phosphorus level normal (9) Coronary artery disease with hx of myocardial infarct w/o hx of CABG: Code(s): I25.10 - Atherosclerotic heart disease of [place] coronary artery without angina pectoris; I25.2 - Old myocardial infarction Status: Acute Assessment and Plan: the patient has minimally elevated troponins. These were stable 4hours apart. Likely related to her renal insufficiency but ultimately will leave the evaluation of her chest pain up to the hospitalists. Subjective Date/time seen: 05/24/23 12:56 Interval history: patient had dialysis yesterday afternoon. She is no longer short of breath. Review of Systems Cardiovascular: Cardiovascular: Reports no additional cardiovascular complaints Respiratory: Respiratory: Reports no additional respiratory complaints Gastrointestinal: Gastrointestinal: Reports no additional gastrointestinal complaints Genitourinary: Genitourinary: Reports no additional female genitourinary complaints Exam Narrative: WDWN in NAD skin no rash head ncat lungs clear cor reg no rub abd BS+ nontender and soft ext no edema. Objective Data Vital Signs Vital Signs: Vital Signs - 24 hr 05/23/23 14:00 05/23/23 16:00 05/23/23 15:09 Temperature Pulse Rate 71 77 Respiratory Rate Blood Pressure Pulse Oximetry Oxygen Delivery Oxygen Flow Rate 2 05/23/23 15:09 05/23/23 15:21 05/23/23 19:22 Temperature 98.1 F Pulse Rate 81 78 81 Respiratory Rate 18 Blood Pressure 142/62 H 167/83 H 107/43 L Pulse Oximetry Oxygen Delivery Oxygen Flow Rate 05/23/23 19:30 05/23/23 15:30 05/23/23 15:49 Temperature 98.2 F Pulse Rate 70 78 77 Respiratory Rate 16 Blood Pressure 140/69 173/81 H 174/84 H Pulse Oximetry Oxygen Delivery Oxygen Flow Rate 05/23/23 16:00 05/23/23 16:15 05/23/23 16:30 Temperature Pulse Rate 74 78 75 Re
--- NOTE | 2023-05-24 15:38 | PM.DS ---
DS: Admitting Diagnosis Discharge Date 05/24/23 Admitting Diagnosis Shortness of breath DS: Discharge Diagnosis Discharge Diagnosis (1) Hypoxia: Code(s): R09.02 - Hypoxemia Status: Acute (2) COVID: Code(s): U07.1 - COVID-19 Status: Acute (3) Chest pain: Code(s): R07.9 - Chest pain, unspecified Status: Acute (4) Fluid overload: Code(s): E87.70 - Fluid overload, unspecified Status: Acute (5) Acute hyperkalemia: Code(s): E87.5 - Hyperkalemia Status: Acute (6) Urinary tract infection: Code(s): N39.0 - Urinary tract infection, site not specified Status: Resolved (7) End stage renal disease on dialysis: Code(s): N18.6 - End stage renal disease; Z99.2 - Dependence on renal dialysis Status: Acute (8) Atrial fibrillation: Qualifiers: Atrial fibrillation type: paroxysmal Qualified Code(s): I48.0 - Paroxysmal atrial fibrillation Code(s): I48.91 - Unspecified atrial fibrillation Status: Acute (9) Diabetes: Code(s): E11.9 - Type 2 diabetes mellitus without complications Status: Acute (10) Tobacco abuse: Code(s): Z72.0 - Tobacco use Status: Acute DS: Summary Hospital Course Reason for hospitalization: 72yo female with ESRD, DM, CAD, HTN and pAFib who presents with shortness of breath.?? Please see H&P for details. Hospital Course: Patient was seen in the emergency room for shortness of breath and chest pain. Chest x-ray consistent with pulmonary edema so suspect patient probably fluid overloaded. Her positive COVID test is noted but probably residual positive findings from her original COVID test being positive on 05/06/2023. For this reason, we held off on treatment for COVID. Nephrology consulted and pateint underwent hemodialysis to control fluid status. Her hypoxia improved. She may have underlying O2 needs since she requires O2 at dialysis at times.Her hyperkalemia was treated appropriately. Repeat potassium was normal. Troponins elevated but flat and much lower than baseline. EKG is not consistent with acute ischemic changes. She had clinical improvement. She was educated about the benefits of smoking cessation. She overall did well and was able to be discharged home on 05/24/23 Status at Discharge Cognitive/behavioral status at discharge: stable Time Spent with Patient Time attestation: Total time spent providing and/or coordinating discharge services: 35 minutes Time spent: Greater than 30 minutes Exam Narrative: AF 97.3 148/37 65 14 97% ra Gen - chronically ill appearing female in NARD Chest - left basilar crackles o/w clear CV - RRR S1-S2 Abd - Soft, NT Ext - left BKA and right AKA. Psych - normal mood and affect Skin - warm and dry. DS: Data Data Completed and Pending Labs on day of discharge: Labs from last 24 hours 05/24/23 05/24/23 05/24/23 12:03 08:20 04:59 WBC 6.7 RBC 3.00 L Hgb 9.4 L Hct 31.0 L MCV 103.3 H MCH 31.3 MCHC 30.3 L RDW 14.2 Plt Count 94 L MPV 13.1 H % Immature Plt Fraction 12.3 H Sodium 136 L Potassium 4.1 Chloride 98 Carbon Dioxide 35 H Anion Gap 3 L BUN 25 H D Creatinine 4.00 H Estim Creat Clear Calc Not Reportable Estimated GFR 11 L Glucose 99 POC Capillary Glucose 200 H 100 Calcium 7.7 L Phosphorus 4.5 Magnesium 1.9 Albumin 3.0 L Hep Bs Antigen 05/23/23 05/23/23 20:35 11:27 WBC RBC Hgb Hct MCV MCH MCHC RDW Plt Count MPV % Immature Plt Fraction Sodium Potassium Chloride Carbon Dioxide Anion Gap BUN Creatinine Estim Creat Clear Calc Estimated GFR Glucose POC Capillary Glucose 133 H Calcium Phosphorus Magnesium Albumin Hep Bs Antigen Negative Discharge Plan Discharge Attending physician on discharge: Brad Mendoza
--- NOTE | 2023-05-29 11:26 | PC.NURSE ---
Throat culture shows no oropharyngeal pathogens. Dr. Reji buitrago.
== END 2023-05-24 18:04 | disposition home or self-care (01) ==
LOC: ANHED 06:20 → ANHIMU 11:14
PROVIDERS: Internal Medicine Nephrology; Admitting Provider Internal Medicine; Emergency Provider Student in an Organized Health Care Education/Training Program; PCP Internal Medicine; Visit Provider Internal Medicine
DX: I12.0 Hypertensive chronic kidney disease with stage 5 chronic kidney disease or end stage renal disease (principal); E11.22 Type 2 diabetes mellitus with diabetic chronic kidney disease; N18.6 End stage renal disease; D63.1 Anemia in chronic kidney disease; Z99.2 Dependence on renal dialysis; J96.91 Respiratory failure, unspecified with hypoxia; U07.1 COVID-19; E87.5 Hyperkalemia; E87.70 Fluid overload, unspecified; N39.0 Urinary tract infection, site not specified; I48.0 Paroxysmal atrial fibrillation; E11.319 Type 2 diabetes mellitus with unspecified diabetic retinopathy without macular edema; E11.65 Type 2 diabetes mellitus with hyperglycemia; E11.51 Type 2 diabetes mellitus with diabetic peripheral angiopathy without gangrene; Z98.62 Peripheral vascular angioplasty status; F41.8 Other specified anxiety disorders; I25.10 Atherosclerotic heart disease of native coronary artery without angina pectoris; Z95.1 Presence of aortocoronary bypass graft; R79.89 Other specified abnormal findings of blood chemistry; Z89.512 Acquired absence of left leg below knee; Z89.611 Acquired absence of right leg above knee; Z89.022 Acquired absence of left finger(s); Z89.421 Acquired absence of other right toe(s); Z89.431 Acquired absence of right foot; R94.31 Abnormal electrocardiogram [ECG] [EKG]; M86.9 Osteomyelitis, unspecified; E78.5 Hyperlipidemia, unspecified; D69.6 Thrombocytopenia, unspecified; K30 Functional dyspepsia; Z86.16 Personal history of COVID-19; F17.210 Nicotine dependence, cigarettes, uncomplicated; F12.90 Cannabis use, unspecified, uncomplicated; Z79.4 Long term (current) use of insulin; Z79.1 Long term (current) use of non-steroidal anti-inflammatories (NSAID); Z79.01 Long term (current) use of anticoagulants; Z79.82 Long term (current) use of aspirin; Z83.3 Family history of diabetes mellitus
CPT/HCPCS: 36415; 71046; 80053; 80069; 82948; 83690; 83735; 84484; 85025; 85027; 85055; 85380; 85610; 85730; 87070; 87340; 87637; 93005; 96374; 96375; 99285; A9270; G0257; G0378; J1644; J1815; J7030

== ENCOUNTER 2023-05-25 02:36 | Observation (INO) | payer MEDICARE, OTHER, SELFPAY ==
[2023-05-25] VITALS (50 sets, daily range): BP systolic 79–188; BP diastolic 30–91; PULSE 64–94; RESP 13–20; TEMP 36.3–36.9; O2SAT 91–100
--- NOTE | ~2023-05-25 | XR_ITS ---
XR chest 1V portable DATE: 05/25/2023 03:22 INDICATION: Shortness of breath TECHNIQUE: Portable AP chest on 05/25/2023 at 0319 hours COMPARISON: 05/23/2023 AP and lateral chest FINDINGS: Status post sternotomy. Cardiomegaly. Aortic arch calcification. There is mild pulmonary vascular congestion and redistribution. There are bilateral Kimi B-lines moore ggesting pulmonary interstitial edema. There is minimal if any pleural effusion. No pneumothorax. There are mild infiltrates and/or atelectasis in the mid and to a greater extent lower lung zones. Th esther may be due to atelectasis, pneumonia or aspiration pneumonitis or pulmonary edema. Diffuse osteopenia. Right internal jugular dialysis catheter tip overlying right atrium. IMPRESSION: Cardiomegaly, congestive changes Bilateral mild mid and lower lung infiltrates which may be due to pneumonia, pulmonary edema, aspirat ion pneumonitis, atelectasis Aortic calcification Osteopenia Reviewed, dictated and finalized at location A. E TRAINER IMPRESSION: Cardiomegaly, congestive changes Bilateral mild mid and lower lung infiltrates which may be due to pneumonia, pu lmonary edema, aspiration pneumonitis, atelectasis Aortic calcification Osteopenia
--- NOTE | ~2023-05-25 | XR_ITS ---
XR chest 1V portable DATE: 05/26/2023 08:48 INDICATION: Hypoxia TECHNIQUE: Portable AP chest on 05/22/2023 and 0844 hours COMPARISON: 05/25/2020 portable AP chest at 0319 hours FINDINGS: Status post sternotomy and coronary artery bypass graft surgery. Right internal jugular central venous catheter tip in right atrium. There is patchy infiltrate and/or atelectasis in the lung bases. No pleural effusion or pneumothorax is detected. Cardiomegaly. Aortic calcification. IMPRESSION: Bibasilar infiltrate and/or atelectasis Reviewed, dictated and finalized at location A. CTOR TOXICOLOGY
--- NOTE | 2023-05-25 02:41 | ECG_ITS ---
Measurements Intervals [place] Rate: 73 P: 83 NM: 187 QRS: 248 QRSD: 154 T: 47 QT: 465 QTc: 513 Interpretive Statements SINUS RHYTHM INDETERMINATE AXIS RIGHT BUNDLE BRANCH BLOCK [120+ ms QRS DURATION, UPRIGHT V1, 40+ ms S IN I/aVL/V4/V5/V6] SEPTAL MYOCARDIAL INFARCTION , OF INDETERMINATE AGE [40+ ms Q WAVE IN V1/V2] PERSISTENT MILD ST ELEVATION IN V1 AND V2 AND ST DEPRESSION IN INFERIOR LATERAL LEADS COMPARED TO ECG 05/23/2023 04:41:13 NO SIGNIFICANT CHANGE Electronically Signed On 05-25-2023 9:06:42 BRANCH OPERATIONS MANAGER by Abril Vance M.D.
--- NOTE | 2023-05-25 02:52 | ED.GENADULT ---
HPI - General Adult General Chief complaint: Shortness of Breath/Dyspnea Stated complaint: SOB Time Seen by Provider: 05/25/23 02:40 History of Present Illness HPI narrative: 72-year-old female with history of type 2 diabetes bilateral lower extremity amputations, pulmonary edema, COPD, dialysis, smoker presenting to the emergency department for worsening shortness of breath. Patient was discharged around 2:00 p.m. 05/24 and patient returned at 2:40 a.m. 05/25. Patient states he was feeling fine at time of discharge but woke up during the night feeling short of breath. Patient does not have oxygen at home. Patient was hypoxic when EMS arrived. Patient's oxygenation did dip down to 89 on room air well patient talking. Patient does do dialysis on Tuesdays and Saturdays. Patient did have dialysis [facility] Home Medications Medication Instructions Recorded Confirmed insulin degludec 100 unit/mL 32 unit subcut HS 11/03/19 05/25/23 subcutaneous solution (Tresiba U-100 Insulin) cetirizine 10 mg tablet 10 mg PO DAILY PRN allergies 02/06/22 05/25/23 insulin aspart U-100 100 unit/mL 8 unit subcut TIDWMEAL 02/28/22 05/25/23 (3 mL) subcutaneous pen (Novolog FlexPen U-100 Insulin aspart) pantoprazole 40 mg tablet,delayed 40 mg PO DAILY 02/28/22 05/25/23 release calcium carbonate 300 mg (750 mg) 2 tablet PO DAILY PRN Indigestion 01/10/23 05/25/23 chewable tablet (Tums E-X) nifedipine 30 mg tablet,extended See Rx Instructions .Route .COMPLEX 02/20/23 05/25/23 release apixaban 5 mg tablet 5 mg PO BID 03/26/23 05/25/23 atorvastatin 40 mg tablet 40 mg PO HS 04/24/23 05/25/23 carvedilol 12.5 mg tablet (Coreg) 12.5 mg PO Q12H 04/24/23 05/25/23 gabapentin 400 mg capsule 400 mg PO TID 04/24/23 05/25/23 losartan 100 mg tablet 100 mg PO .MONWEDFRISUN 04/24/23 05/25/23 nitroglycerin 0.4 mg sublingual 0.4 mg sublingual Q5MIN PRN Chest 04/24/23 05/25/23 tablet Pain Allergies Allergy/AdvReac Type Severity Reaction Status Date / Time No Known Allergies Allergy Verified 05/25/23 02:47 Review of Systems Review of Systems: All systems reviewed & are unremarkable except as noted in HPI and below PMFSH Past Medical History Medical History Anxiety with depression Arterial vascular disease Chronic anemia Coronary artery disease COVID Digital arterial occlusive disease End-stage renal disease on hemodialysis Saturday, , Saturday. 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 Hemoglobin A1c was 6.8% in February 2020. Osteomyelitis Paroxysmal atrial fibrillation Peripheral vascular disease Renal osteodystrophy Thrombocytopenia Surgical History Surgical History Amputation of right forefoot Right 4th and 5th ray amputation in 04/2017. Right foot transmetatarsal amputation with partial fasciotomy due to wet gangrene, osteomyelitis, and necrotizing fasciitis in May 2017. 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 History of below-knee amputation of both lower extremities Left [id number] amputation in 2017. Right [id number] amputation in 02/2020. 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 History of vascular surgery Right lower extremity stents in March 2017. Left lower extremity stent in 2014. Family History Family History Mother Diabetes mellitus Father Lung
[2023-05-25 03:02] LABS: Alveolar/Arterial O2 Gradient 67.7 mmHg; Base Excess ABG 6.8 mEq/l (+/-2.0); Device NASAL CANNULA; Fractional Inspired Oxygen 28 %; HCO3 ABG 32.5 mEq/l (22.0-26.0); Oxygen Content ABG 13.1 %vol (16.0-22.0); Oxyhemoglobin 91.1 % THb (90.0-100.0); PCO2 ABG 52.4 mmHg (35.0-45.0); PO2 ABG 70.1 mmHg (80.0-100.0); Site Drawn RIGHT BRACHIAL; Total Hemoglobin 10.2 g/dL (12.0-18.0); pH ABG 7.411 (7.350-7.450)
[2023-05-25 03:17] LABS: Basophils Percent Auto 0.5 % (0.2-1.2); Eosinophils Absolute Auto 0.1 K/mm3 (0-0.3); Eosinophils Percent Auto 2.4 % (0-4.4); Hematocrit 30.4 % (37.0-47.0); Hemoglobin 9.3 g/dL (12.0-15.0); Immature Granulocyte Absolute 0.02 K/mm3 (0.00-0.031); Immature Granulocyte Percent A 0.3 % (0-0.5); Immature Platelet Fraction Pct 10.5 % (0.9-11.2); Lymphocytes Absolute Auto 1.19 K/mm3 (0.9-3.2); Lymphocytes Percent Auto 20.4 % (18.3-44.2); Mean Corpuscular HGB Conc 30.6 g/dl (32-36); Mean Corpuscular Hemoglobin 31.6 pg (26-34); Mean Corpuscular Volume 103.4 fl (80-100); Mean Platelet Volume 12.8 fl (7.4-10.4); Monocytes Absolute Auto 0.5 K/mm3 (0.1-0.6); Monocytes Percent Auto 8.4 % (2.6-8.5); Platelet Count Result 87 k/mm3 (150-375); Red Blood Count 2.94 M/mm3 (4.2-5.4); White Blood Count 5.8 K/mm3 (4.5-10.0)
[2023-05-25 03:28] LABS: INR 1.4; Prothrombin Time 17.6 Seconds (11.1-14.7)
[2023-05-25 03:29] LABS: Partial Thromboplastin Time 41.9 SECONDS (22.3-36.8)
[2023-05-25 03:30] LABS: Alanine Aminotransferase 13 U/L (6-35); Albumin Level 3.3 g/dL (3.5-5.1); Alkaline Phosphatase 109 U/L (38-126); Anion Gap 8 mmol/L (8-16); Aspartate Amino Transferase 19 U/L (14-36); Bilirubin,Total 0.5 mg/dL (0.2-1.3); Blood Urea Nitrogen 44 mg/dL (7-17); Calcium 7.5 mg/dL (8.4-10.2); Carbon Dioxide 33 mmol/L (22-30); Chloride 96 mmol/L (98-107); Estimated Glomerular Filt Rate 7; Glucose 104 mg/dL (65-110); Potassium 4.3 mmol/L (3.4-5.0); Sodium 137 mmol/L (137-145)
--- NOTE | 2023-05-25 05:56 | ADMGEN ---
This patient, Tawana Prado, was admitted to IMU Room 206-02. Patient/family oriented to hospital policies and general routines including ID bracelet, bed and alarms, visiting hours, pain management, procedures, bathroom and other care routines, personal items, smoking policy, room service/diet, and visiting hours. Information on how to activate the Rapid Response Team has been discussed. Patient/Family are encouraged to report perceived risks to care and to ask questions if they do not understand what they are told or what they should do.
--- NOTE | 2023-05-25 09:23 | PM.IMHP ---
H&P: HPI History of Present Illness Date/Time: 05/25/23 09:23 Chief Complaint: Shortness of breath Narrative: 72yo female with ESRD, DM, CAD, HTN and pAFib who presents with shortness of breath.? Patient was just hospitalized from 05/23-05/24 for shortness of breath and chest pain.? Chest x-ray was consistent with pulmonary edema so suspect patient probably fluid overloaded.? She was COVID positive but probably residual positive findings from her original COVID test being positive on 05/06/23 so not treated for COVID.? Nephrology was consulted and patient underwent hemodialysis to control fluid status. Her hypoxia resolved and easily weaned to room air. She may have underlying O2 needs since she requires O2 at dialysis at times. Her hyperkalemia was treated appropriately.? Repeat potassium was normal.? Troponins elevated but flat and much lower than baseline.? EKG is not consistent with acute ischemic changes.? She had clinical improvement. She was educated about the benefits of smoking cessation. She overall did well and was able to be discharged home on 05/24/23. Patient felt fine at time of discharge and through out the evening. She did smoke that evening. Around 2AM, she awoke with the need to void. She called her sister who helped her with the bedpan. Patietn able to void and had some dysuria but no hematuria. She has had dysuria for about 1 week. She developed SOB with the exertion of getting on/off the bedpan. No CP but had pleuritic pain and points to the base of her neck anteriorly. No n/v. No lightheadedness. No cough but felt like she needed to. No fever of chills but felt 'warm'. No diarrhea or constipation. No sore throat or otalgia. No abdominal pain or back pain. She does not wear O2 at home but does wear this at dialysis. She does not have ALANNA that she is aware of. EMS was contacted. No EMS report in the chart but ED note states patient was hypoxic. In the ED, patient was 94% on RA and hemodynamically stable. CXR showing cardiomegaly and congestive changes with bilateral mild mid and lower lung infiltrates. EKG showing normal sinus with Rt BBB, indeterminate septal ID and persistent mild ST elevation in V1/V2 without change. BCx collected. ABG 7.41/52/70 on 2L. Baseline labs with chronic changes but no change from last admission. Patient was put on 2L O2 and admitted for further care. Review of Systems Review of Systems: All systems reviewed & are unremarkable except as noted in HPI and below PMFSH Past Medical History Medical History Anxiety with depression Arterial vascular disease Chronic anemia Coronary artery disease COVID Digital arterial occlusive disease End-stage renal disease on hemodialysis Saturday, , Saturday. 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 Hemoglobin A1c was 6.8% in February 2020. Osteomyelitis Paroxysmal atrial fibrillation Peripheral vascular disease Renal osteodystrophy Thrombocytopenia Surgical History Surgical History Amputation of right forefoot Right 4th and 5th ray amputation in 04/2017. Right foot transmetatarsal amputation with partial fasciotomy due to wet gangrene, osteomyelitis, and necrotizing fasciitis in May 2017. 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 History of below-knee amputation of both lower extremities Left [id number] amputation in 2017. Right [id number] amputation in 02/2020. History of bilateral cataract extraction History of carpal tunnel release History of four vessel coronary artery bypass graft (04/2019) History of right above knee amputation (05/12/20) History of spinal fusion History of surgical procedure on eye proper using laser Related to
--- NOTE | 2023-05-25 10:10 | PM.CNNEP ---
Assessment and Plan Assessment and plan (1) End stage renal disease on dialysis: Code(s): N18.6 - End stage renal disease; Z99.2 - Dependence on renal dialysis Status: Acute Assessment and Plan: The patient has end-stage renal disease. This is due to diabetes and hypertension. She is under the care of Dr. Clarke in [place] but he does not come here. The patient was better yesterday morning after dialysis but then developed shortness of breath last night again. Chest x-ray does show volume overload this morning. Labs and x-rays for other causes are unremarkable. He is already on Eliquis and Plavix so thromboembolic disease is unlikely. Troponins are okay. Discussed with Dr. Phelps. Considering a apnea link test. She is getting dialysis and will take off about 4L of fluid as tolerated. (2) Hypoxic respiratory failure: Code(s): J96.91 - Respiratory failure, unspecified with hypoxia Status: Acute Assessment and Plan: The patient has volume overload. We will remove some fluid. The patient has no symptoms of COVID. (3) COVID: Code(s): U07.1 - COVID-19 Status: Acute Assessment and Plan: the patient is getting supportive care. Chronically positive test and so no need for isolation according to Infectious Disease. No fevers or chills. (4) Acute hyperkalemia: Code(s): E87.5 - Hyperkalemia Status: Acute Assessment and Plan: Potassium is okay this time. (5) Hypertension: Qualifiers: Hypertension type: renovascular hypertension Qualified Code(s): I15.0 - Renovascular hypertension Code(s): I10 - Essential (primary) hypertension Status: Chronic Assessment and Plan: blood pressure was high in the emergency room. She has been given her regular medications and as we remove fluid her blood pressure is coming down. 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 Will be managed by the hospitalists. (7) Erythropoietin deficiency anemia: Code(s): D63.1 - Anemia in chronic kidney disease Status: Acute Assessment and Plan: Hemoglobin is 9.3. Will give Epogen on dialysis (8) Renal osteodystrophy: Code(s): N25.0 - Renal osteodystrophy Status: Acute Assessment and Plan: will check a phosphorus in the morning (9) Coronary artery disease with hx of myocardial infarct w/o hx of CABG: Code(s): I25.10 - Atherosclerotic heart disease of [place] coronary artery without angina pectoris; I25.2 - Old myocardial infarction Status: Acute Assessment and Plan: the patient has minimally elevated troponins. These were stable 4hours apart. Likely related to her renal insufficiency but ultimately will leave the evaluation of her chest pain up to the hospitalists. History of Present Illness Reason for Consult Consult date: 05/25/23 Chief Complaint Chief complaint: Shortness of Breath,Hypoxia History of Present Illness Narrative: Tawana is a very pleasant 72-year-old lady who has multiple medical problems including end-stage renal disease on dialysis Tuesdays and Saturdays, coronary disease, atrial fibrillation, hyperlipidemia, hypertension, diabetes, peripheral vascular disease, anemia, renal osteodystrophy, and anxiety with depression. The patient was just discharged from the hospital yesterday after a 2 day stay because of volume overload. She received dialysis and felt better yesterday morning having had dialysis on evening. She went home and felt okay. She said this morning in the wee hours she developed shortness of breath after she urinated into a bedpan. The breathing continued to be a problem and so they called 911 who found
--- NOTE | 2023-05-25 10:32 | PM.EVENT ---
Event Note Event Note Event Note: Patient is on dialysis. She is tolerating it well. She was seen at 9 45 a.m..
[2023-05-25] MEDS: EPOETIN ALFA-EPBX 10,000 UNITS/ML VIAL 10000 UNITS IV PUSH (11:17)
[2023-05-25] MEDS: HEPARIN SODIUM 1,000 UNITS/ML VIAL 5000 UNITS IV PUSH (12:35)
[2023-05-25] MEDS: ISOSORBIDE MONONITRATE 30 MG TAB.ER.24H PO (12:56)
[2023-05-25] MEDS: APIXABAN 5 MG TABLET PO ×2 (12:56→21:23)
[2023-05-25] MEDS: carvediloL 12.5 MG TABLET PO ×2 (12:56→16:46)
[2023-05-25] MEDS: SEVELAMER CARBONATE 800 MG TABLET PO ×2 (12:56→16:46)
[2023-05-25] MEDS: GABAPENTIN 400 MG CAPSULE PO ×2 (12:57→16:46)
[2023-05-25] MEDS: CLOPIDOGREL BISULFATE 75 MG TABLET PO (12:57)
[2023-05-25] MEDS: PANTOPRAZOLE 40 MG TABLET PO (12:57)
[2023-05-25] MEDS: NIFEdipine 30 MG TAB.ER.24 PO ×2 (12:59→21:23)
[2023-05-25] MEDS: INSULIN ASPART (*BKC) 100 UNITS/ML SUB-Q ×2 (13:07→16:47)
[2023-05-25 13:08] LABS: Glucose Point of Care 113 mg/dl (65-105)
[2023-05-25 16:20] LABS: Glucose Point of Care 132 mg/dl (65-105)
[2023-05-25] MEDS: polyethylene glycoL 3350 17 GM POWD.PACK PO (16:46)
[2023-05-25 19:59] LABS: Glucose Point of Care 206 mg/dl (65-105)
[2023-05-25] MEDS: INSULIN GLARGINE (*BKC) 100 UNITS/ML 20 UNITS SUB-Q (21:23)
[2023-05-25] MEDS: ATORVASTATIN 40 MG TABLET PO (21:23)
[2023-05-26] VITALS (19 sets, daily range): BP systolic 110–151; BP diastolic 37–58; PULSE 63–72; RESP 16–20; TEMP 36–36.8; O2SAT 94–98
[2023-05-26 04:55] LABS: Hematocrit 29.6 % (37.0-47.0); Hemoglobin 9.2 g/dL (12.0-15.0); Immature Platelet Fraction Pct 12.6 % (0.9-11.2); Mean Corpuscular HGB Conc 31.1 g/dl (32-36); Mean Corpuscular Hemoglobin 31.9 pg (26-34); Mean Corpuscular Volume 102.8 fl (80-100); Mean Platelet Volume 13.2 fl (7.4-10.4); Platelet Count Result 95 k/mm3 (150-375); Red Blood Count 2.88 M/mm3 (4.2-5.4); Red Cell Distribution Width 13.8 % (11.5-14.5)
[2023-05-26 05:03] LABS: White Blood Count 4.5 K/mm3 (4.5-10.0)
[2023-05-26 05:07] LABS: Albumin Level 3.1 g/dL (3.5-5.1); Anion Gap 6 mmol/L (8-16); Blood Urea Nitrogen 22 mg/dL (7-17); Calcium 7.7 mg/dL (8.4-10.2); Carbon Dioxide 36 mmol/L (22-30); Chloride 94 mmol/L (98-107); Estimated Glomerular Filt Rate 11; Glucose 125 mg/dL (65-110); Phosphorus 4.3 mg/dL (2.5-4.5); Sodium 136 mmol/L (137-145)
[2023-05-26 08:09] LABS: Glucose Point of Care 145 mg/dl (65-105)
[2023-05-26] MEDS: carvediloL 12.5 MG TABLET PO ×2 (09:57→18:08)
[2023-05-26] MEDS: INSULIN ASPART (*BKC) 100 UNITS/ML SUB-Q ×5 (09:59→18:10)
[2023-05-26] MEDS: SEVELAMER CARBONATE 800 MG TABLET PO ×3 (10:00→18:09)
[2023-05-26] MEDS: APIXABAN 5 MG TABLET PO ×2 (10:00→21:30)
[2023-05-26] MEDS: polyethylene glycoL 3350 17 GM POWD.PACK PO (10:01)
[2023-05-26] MEDS: GABAPENTIN 400 MG CAPSULE PO ×3 (10:01→18:09)
[2023-05-26] MEDS: CLOPIDOGREL BISULFATE 75 MG TABLET PO (10:01)
[2023-05-26] MEDS: PANTOPRAZOLE 40 MG TABLET PO (10:01)
[2023-05-26] MEDS: ISOSORBIDE MONONITRATE 30 MG TAB.ER.24H PO (10:01)
[2023-05-26] MEDS: LOSARTAN POTASSIUM 100 MG TABLET PO (10:03)
[2023-05-26 12:13] LABS: Glucose Point of Care 224 mg/dl (65-105)
--- NOTE | 2023-05-26 12:20 | PM.PNNEP ---
Progress Note: A&P Assessment and Plan (1) End stage renal disease on dialysis: Code(s): N18.6 - End stage renal disease; Z99.2 - Dependence on renal dialysis Status: Acute Assessment and Plan: The patient has end-stage renal disease. This is due to diabetes and hypertension. She is under the care of Dr. Clarke in [place] but he does not come here. she had dialysis yesterday afternoon. 2L was removed. More fluid was unable to be removed because of cramping. She is asking if she should be on oxygen at home. She cannot do an ambulatory O2. An apnea link has been ordered. If she desaturates at night than possibly O2 can be ordered an insurance would pay. Will do another dialysis on Saturday (2) Hypoxic respiratory failure: Code(s): J96.91 - Respiratory failure, unspecified with hypoxia Status: Acute Assessment and Plan: The patient seems improved as far as volume overload. The patient has no symptoms of COVID. (3) COVID: Code(s): U07.1 - COVID-19 Status: Acute Assessment and Plan: Chronically positive test and so no need for isolation according to Infectious Disease. No fevers or chills. (4) Acute hyperkalemia: Code(s): E87.5 - Hyperkalemia Status: Acute Assessment and Plan: Potassium is okay today (5) Hypertension: Qualifiers: Hypertension type: renovascular hypertension Qualified Code(s): I15.0 - Renovascular hypertension Code(s): I10 - Essential (primary) hypertension Status: Chronic Assessment and Plan: blood pressure was high in the emergency room. She has been given her regular medications and as we remove fluid her blood pressure is coming down. 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 Will be managed by the hospitalists. (7) Erythropoietin deficiency anemia: Code(s): D63.1 - Anemia in chronic kidney disease Status: Acute Assessment and Plan: Hemoglobin is 9.2. Getting EPO on dialysis (8) Renal osteodystrophy: Code(s): N25.0 - Renal osteodystrophy Status: Acute Assessment and Plan: phosphorus level is good (9) Coronary artery disease with hx of myocardial infarct w/o hx of CABG: Code(s): I25.10 - Atherosclerotic heart disease of [place] coronary artery without angina pectoris; I25.2 - Old myocardial infarction Status: Acute Assessment and Plan: the patient has minimally elevated troponins. These were stable 4hours apart. Likely related to her renal insufficiency but ultimately will leave the evaluation of her chest pain up to the hospitalists. no chest pain Subjective Date/time seen: 05/26/23 12:20 Interval history: patient is lying flat in bed. No cough for shortness of breath Review of Systems Cardiovascular: Cardiovascular: Reports no additional cardiovascular complaints Respiratory: Respiratory: Reports no additional respiratory complaints Gastrointestinal: Gastrointestinal: Reports no additional gastrointestinal complaints Genitourinary: Genitourinary: Reports no additional female genitourinary complaints Exam Narrative: WDWN in NAD skin no rash head ncat lungs clear cor reg no rub abd BS+ nontender and soft ext trace edema. Objective Data Vital Signs Vital Signs: Vital Signs - 24 hr 05/25/23 12:23 05/25/23 12:56 05/25/23 13:11 Temperature 97.8 F 97.8 F Pulse Rate 64 68 68 Respiratory Rate 16 20 Blood Pressure 173/67 H 142/30 H Pulse Oximetry 100 Oxygen Delivery Oxygen Flow Rate 05/25/23 12:50 05/25/23 13:35 05/25/23 14:00 Temperature Pulse Rate 72 Respiratory Rate Blood Pressure Pulse Oximetry 100 Oxygen
--- NOTE | 2023-05-26 15:45 | PM.IMPN ---
Progress Note: A&P Assessment and Plan (1) Hypoxia: Code(s): R09.02 - Hypoxemia Status: Acute Assessment and Plan: Patient admitted to IMU for hypoxia. Not clear if she was actually hypoxia (94% on RA on admission) but CXR does show evidence of fluid overload. Suspect this is the etiology of her mild hypoxia. Consider PNA, untreated ALANNA and/or COPD. Doubt PE since not tachycardic and she is on apixaban. PNA less likely since WBC normal and no fever or cough. She had dialysis 05/25 with removal of 4L. Weaned to room air Apnea link showing AHI 15 and RI 20. 96minutes with Spo2<88%. Will see if she qualifies for nocturnal O2. Repeat Apnea link on 2L here (2) Fluid overload: Code(s): E87.70 - Fluid overload, unspecified Status: Acute Assessment and Plan: As above Use HD to control fluid status She still makes urine so could use diuretic if needed. (3) End stage renal disease on dialysis: Code(s): N18.6 - End stage renal disease; Z99.2 - Dependence on renal dialysis Status: Acute Assessment and Plan: Patient with ESRD related to diabetes and hypertension. She is followed by Dr. Clarke in [place]. She is on the //Sat schedule. Continue HD per nephrology recommendations. Appreciate nephrology input. (4) COVID: Code(s): U07.1 - COVID-19 Status: Acute Assessment and Plan: She had a positive COVID test 05/23 but probably residual positive findings from her original COVID test being positive on 05/06/2023.?? (5) Tobacco abuse: Code(s): Z72.0 - Tobacco use Status: Acute Assessment and Plan: Patient has been educated about the benefits of smoking cessation. 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 The patient's blood glucose was reviewed on 05/26 Glucose remains reasonably well controlled but elevated at times. Continue AccuCheks covering with sliding scale. Hypoglycemia protocol available as needed. Continue to monitor. Plan DVT prophylaxis -Eliquis Code status -DNR Subjective Date/time seen: 05/26/23 15:45 Interval history: 72yo female with ESRD, DM, CAD, HTN and pAFib who presents with shortness of breath.? Patient was just hospitalized from 05/23-05/24 for shortness of breath and chest pain.?? Patient feels well. Still SOB at times. No CP. Eating okay. Exam Narrative: AF 97.3 119/37 71 20 94% ra Gen - NARD Chest - bibasilar crackles, nml RR CV - RRR S1/S2. Tele showing intermittent episodes of AFib Abd - Soft, NT/ND, Positive BS Ext - left BKA and right AKA. Psych - Nml mood and affect Skin - Warm and dry Objective Data Vital Signs Vital Signs: Vital Signs - 24 hr 05/25/23 16:00 05/25/23 16:46 05/25/23 16:00 Temperature 98.5 F Pulse Rate 92 89 Respiratory Rate 16 Blood Pressure 144/57 H Pulse Oximetry 97 97 Oxygen Delivery Room Air Oxygen Flow Rate 05/25/23 16:00 05/25/23 20:28 05/25/23 21:15 Temperature 98.5 F Pulse Rate 94 80 Respiratory Rate 16 Blood Pressure 79/46 L 112/40 L Pulse Oximetry 97 Oxygen Delivery Oxygen Flow Rate 05/25/23 23:16 05/25/23 20:00 05/26/23 00:00 Temperature 98.4 F Pulse Rate 66 80 66 Respiratory Rate 16 16 16 Blood Pressure 117/42 L Pulse Oximetry 97 97 97 Oxygen Delivery Nasal Cannula Room Air Oxygen Flow Rate 2 05/25/23 20:00 05/25/23 22:00 05/26/23 00:00 Temperature Pulse Rate 70 69 66 Respiratory Rate Blood Pressure Pulse Oximetry Oxygen Delivery Oxygen Flow Rate 05/25/23 22:45 05/26/23 03:29 05/26/23 02:00 Temperature 98.3 F Pulse Rate 67 63 Respiratory Rate 16 Blood Pressure 110/48 L Pulse Oximetry 94 97 Oxygen Delivery Room Air Ox
[2023-05-26 16:39] LABS: Glucose Point of Care 221 mg/dl (65-105)
--- NOTE | 2023-05-26 18:32 | PC.NURSE ---
This patient, Tawana Prado, was transferred to [ 3rd med surg] on 05/26/23 at 1832. Personal belongings sent with patient. Report given to [ALVARO Schneider ]. Appropriate documentation sent with patient. Patient alert and oriented, vitals stable, no respiratory distress.
[2023-05-26] MEDS: INSULIN GLARGINE (*BKC) 100 UNITS/ML 20 UNITS SUB-Q (21:30)
[2023-05-26] MEDS: ATORVASTATIN 40 MG TABLET PO (21:30)
[2023-05-26 21:40] LABS: Glucose Point of Care 174 mg/dl (65-105)
[2023-05-26 22:20] LABS: Glucose Point of Care 142 mg/dl (65-105)
[2023-05-27 05:31] VITALS: BP 145/55; PULSE 62; RESP 18; TEMP 36.2; O2SAT 100
[2023-05-27 07:06] LABS: Anion Gap 6 mmol/L (8-16); Blood Urea Nitrogen 36 mg/dL (7-17); Calcium 7.6 mg/dL (8.4-10.2); Carbon Dioxide 34 mmol/L (22-30); Chloride 98 mmol/L (98-107); Estimated Glomerular Filt Rate 8; Glucose 99 mg/dL (65-110); Phosphorus 5.6 mg/dL (2.5-4.5); Sodium 138 mmol/L (137-145)
[2023-05-27 08:06] LABS: Glucose Point of Care 108 mg/dl (65-105)
[2023-05-27] MEDS: GABAPENTIN 400 MG CAPSULE PO ×3 (08:18→16:48)
[2023-05-27] MEDS: APIXABAN 5 MG TABLET PO ×2 (08:18→21:37)
[2023-05-27] MEDS: PANTOPRAZOLE 40 MG TABLET PO (08:18)
[2023-05-27] MEDS: ISOSORBIDE MONONITRATE 30 MG TAB.ER.24H PO (08:19)
[2023-05-27] MEDS: carvediloL 12.5 MG TABLET PO ×2 (08:19→16:48)
[2023-05-27] MEDS: CLOPIDOGREL BISULFATE 75 MG TABLET PO (08:19)
[2023-05-27] MEDS: SEVELAMER CARBONATE 800 MG TABLET PO ×3 (08:19→16:48)
[2023-05-27] MEDS: INSULIN ASPART (*BKC) 100 UNITS/ML SUB-Q ×3 (08:19→16:48)
[2023-05-27] MEDS: LOSARTAN POTASSIUM 100 MG TABLET PO (08:22)
--- NOTE | 2023-05-27 09:11 | PM.IMPN ---
Progress Note: A&P Assessment and Plan (1) Hypoxia: Code(s): R09.02 - Hypoxemia Status: Acute Assessment and Plan: Patient admitted to IMU for hypoxia. Not clear if she was actually hypoxia (94% on RA on admission) but CXR does show evidence of fluid overload. Suspect this is the etiology of her mild hypoxia. Consider PNA, untreated ALANNA and/or COPD. Doubt PE since not tachycardic and she is on apixaban. PNA less likely since WBC normal and no fever or cough. She had dialysis 05/25 with removal of 4L. Weaned to room air Apnea link showing AHI 15 and RI 20. 96 minutes with Spo2<88%. Repeat Apnea link on 2L overnight showing no significant hypoxia. Will see if she qualifies for nocturnal O2. (2) Fluid overload: Code(s): E87.70 - Fluid overload, unspecified Status: Acute Assessment and Plan: As above Use HD to control fluid status She still makes urine so could use diuretic if needed. (3) End stage renal disease on dialysis: Code(s): N18.6 - End stage renal disease; Z99.2 - Dependence on renal dialysis Status: Acute Assessment and Plan: Patient with ESRD related to diabetes and hypertension. She is followed by Dr. Clarke in [place]. She is on the //Sat schedule. Continue HD per nephrology recommendations. Appreciate nephrology input. (4) COVID: Code(s): U07.1 - COVID-19 Status: Acute Assessment and Plan: She had a positive COVID test 05/23 but probably residual positive findings from her original COVID test being positive on 05/06/2023.?? Supportive care (5) Tobacco abuse: Code(s): Z72.0 - Tobacco use Status: Acute Assessment and Plan: Patient has been educated about the benefits of smoking cessation. 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 The patient's blood glucose was reviewed on 05/27 Glucose remains reasonably well controlled but elevated at times. Continue AccuCheks covering with sliding scale. Hypoglycemia protocol available as needed. Continue to monitor. Plan Dysuria still having dysuria. UA remains uncollected. She declines in/out cath. Recommend she call RN before voiding. DVT prophylaxis -Eliquis Code status -DNR Subjective Date/time seen: 05/27/23 09:11 Interval history: 72yo female with ESRD, DM, CAD, HTN and pAFib who presents with shortness of breath.? Patient was just hospitalized from 05/23-05/24 for shortness of breath and chest pain.?? No issues overnight. Wore the 2L at night. No Cp or SOB. Slept well. Still having dysuria. Family in the room and they were updated. Exam Narrative: AF 97.1 145/55 62 18 100% 2L Gen - NARD Chest - scattered inspiratory rhonchi, nml RR CV - RRR S1/S2 Abd - Soft, NT/ND, Positive BS Ext - left BKA and right AKA. Psych - Nml mood and affect Skin - Warm and dry Objective Data Vital Signs Vital Signs: Vital Signs - 24 hr 05/26/23 09:57 05/26/23 11:58 05/26/23 12:00 Temperature 97.3 F L Pulse Rate 67 72 Respiratory Rate 20 Blood Pressure 119/37 L Pulse Oximetry 94 Oxygen Delivery Room Air Oxygen Flow Rate Fraction of Inspired Oxygen 05/26/23 10:00 05/26/23 12:00 05/26/23 14:00 Temperature Pulse Rate 67 71 71 Respiratory Rate Blood Pressure Pulse Oximetry Oxygen Delivery Oxygen Flow Rate Fraction of Inspired Oxygen 05/26/23 17:05 05/26/23 18:08 05/26/23 16:00 Temperature 96.9 F L Pulse Rate 70 70 69 Respiratory Rate 18 Blood Pressure 128/54 L Pulse Oximetry 95 Oxygen Delivery Oxygen Flow Rate Fraction of Inspired Oxygen 05/26/23 21:52 05/26/23 20:30 05/26/23 23:50 Temperature 97.2 F L Pulse Rate 67 Respiratory Rate 16
--- NOTE | 2023-05-27 09:55 | PM.PNNEP ---
Progress Note: A&P Assessment and Plan (1) End stage renal disease on dialysis: Code(s): N18.6 - End stage renal disease; Z99.2 - Dependence on renal dialysis Status: Acute Assessment and Plan: The patient has end-stage renal disease. This is due to diabetes and hypertension. She is under the care of Dr. Clarke in [place] but he does not come here. she had dialysis on Saturday. She did well. Not all the fluid was able to be removed because of cramping. Apnea link was not done apparently. Will do another dialysis on Saturday (2) Hypoxic respiratory failure: Code(s): J96.91 - Respiratory failure, unspecified with hypoxia Status: Acute Assessment and Plan: The patient seems improved as far as volume overload. The patient has no symptoms of COVID. (3) COVID: Code(s): U07.1 - COVID-19 Status: Acute Assessment and Plan: Chronically positive test and so no need for isolation according to Infectious Disease. No fevers or chills. (4) Acute hyperkalemia: Code(s): E87.5 - Hyperkalemia Status: Acute Assessment and Plan: Potassium is okay today (5) Hypertension: Qualifiers: Hypertension type: renovascular hypertension Qualified Code(s): I15.0 - Renovascular hypertension Code(s): I10 - Essential (primary) hypertension Status: Chronic Assessment and Plan: blood pressure was high in the emergency room. She has been given her regular medications After fluid removal her blood pressure seems to be better, with a systolic ranging from 110-151 (6) Insulin dependent type 2 diabetes mellitus: Code(s): E11.9 - Type 2 diabetes mellitus without complications; Z79.4 - residential (current) use of insulin Status: Chronic Assessment and Plan: She is on Accu-Cheks and sliding scale insulin. Will be managed by the hospitalists. (7) Erythropoietin deficiency anemia: Code(s): D63.1 - Anemia in chronic kidney disease Status: Acute Assessment and Plan: Hemoglobin is 9.2. Getting EPO on dialysis (8) Renal osteodystrophy: Code(s): N25.0 - Renal osteodystrophy Status: Acute Assessment and Plan: phosphorus level is good (9) Coronary artery disease with hx of myocardial infarct w/o hx of CABG: Code(s): I25.10 - Atherosclerotic heart disease of [place] coronary artery without angina pectoris; I25.2 - Old myocardial infarction Status: Acute Assessment and Plan: the patient has minimally elevated troponins. These were stable 4hours apart. Likely related to her renal insufficiency but ultimately will leave the evaluation of her chest pain up to the hospitalists. no chest pain Subjective Date/time seen: 05/27/23 09:55 Interval history: daughter is in the room. Tawana is feeling okay today. No shortness of breath or chest pain. Exam Narrative: WDWN in NAD skin no rash head ncat lungs clear bilaterally cor reg no rub abd BS+ nontender and soft ext trace edema. Objective Data Vital Signs Vital Signs: Vital Signs - 24 hr 05/26/23 09:57 05/26/23 11:58 05/26/23 12:00 Temperature 97.3 F L Pulse Rate 67 72 Respiratory Rate 20 Blood Pressure 119/37 L Pulse Oximetry 94 Oxygen Delivery Room Air Oxygen Flow Rate Fraction of Inspired Oxygen 05/26/23 10:00 05/26/23 12:00 05/26/23 14:00 Temperature Pulse Rate 67 71 71 Respiratory Rate Blood Pressure Pulse Oximetry Oxygen Delivery Oxygen Flow Rate Fraction of Inspired Oxygen 05/26/23 17:05 05/26/23 18:08 05/26/23 16:00 Temperature 96.9 F L Pulse Rate 70 70 69 Respiratory Rate 18 Blood Pressure 128/54 L Pulse Oximetry 95 Oxygen Delivery Oxygen Flow Rate Fraction of Inspired Oxygen 05/26/23 21:52 05/26/23 20:30 05/26/23 23:50 Temperature 97.2 F L Pulse Rate 67 Respiratory Rate 1
[2023-05-27 11:25] LABS: Glucose Point of Care 106 mg/dl (65-105)
[2023-05-27 14:00] VITALS: BP 146/50; PULSE 70; RESP 18; TEMP 36.5; O2SAT 94
[2023-05-27 16:56] LABS: Glucose Point of Care 167 mg/dl (65-105)
[2023-05-27 21:15] LABS: Glucose Point of Care 189 mg/dl (65-105)
[2023-05-27 21:28] VITALS: BP 159/56; PULSE 68; RESP 18; TEMP 36.9; O2SAT 98
[2023-05-27] MEDS: ATORVASTATIN 40 MG TABLET PO (21:37)
[2023-05-27] MEDS: INSULIN GLARGINE (*BKC) 100 UNITS/ML 20 UNITS SUB-Q (21:37)
[2023-05-28] VITALS (21 sets, daily range): BP systolic 105–180; BP diastolic 38–73; PULSE 60–71; RESP 16–20; TEMP 36.5–37; O2SAT 97
[2023-05-28 07:22] LABS: Glucose Point of Care 129 mg/dl (65-105)
[2023-05-28] MEDS: GABAPENTIN 400 MG CAPSULE PO ×3 (08:14→17:08)
[2023-05-28] MEDS: APIXABAN 5 MG TABLET PO (08:14)
[2023-05-28] MEDS: CLOPIDOGREL BISULFATE 75 MG TABLET PO (08:14)
[2023-05-28] MEDS: INSULIN ASPART (*BKC) 100 UNITS/ML SUB-Q ×3 (08:15→17:06)
[2023-05-28] MEDS: PANTOPRAZOLE 40 MG TABLET PO (08:15)
[2023-05-28] MEDS: SEVELAMER CARBONATE 800 MG TABLET PO ×3 (08:15→17:08)
[2023-05-28 09:26] LABS: Albumin Level 3.1 g/dL (3.5-5.1); Anion Gap 10 mmol/L (8-16); Blood Urea Nitrogen 47 mg/dL (7-17); Calcium 7.6 mg/dL (8.4-10.2); Carbon Dioxide 29 mmol/L (22-30); Chloride 97 mmol/L (98-107); Estimated Glomerular Filt Rate 5; Glucose 112 mg/dL (65-110); Phosphorus 5.1 mg/dL (2.5-4.5); Potassium 4.4 mmol/L (3.4-5.0); Sodium 136 mmol/L (137-145)
[2023-05-28 11:26] LABS: Glucose Point of Care 107 mg/dl (65-105)
--- NOTE | 2023-05-28 15:21 | PM.PNNEP ---
Progress Note: A&P Assessment and Plan (1) End stage renal disease on dialysis: Code(s): N18.6 - End stage renal disease; Z99.2 - Dependence on renal dialysis Status: Acute Assessment and Plan: The patient has end-stage renal disease. This is due to diabetes and hypertension. She is under the care of Dr. Clarke in [place] but he does not come here. she had dialysis this morning. Her blood pressure did well. She has no swelling and her lungs are clear. Discussed with Dr Farrar. Schafer for discharge from the kidney standpoint (2) Hypoxic respiratory failure: Code(s): J96.91 - Respiratory failure, unspecified with hypoxia Status: Acute Assessment and Plan: The patient seems improved as far as volume overload. The patient has no symptoms of COVID. (3) COVID: Code(s): U07.1 - COVID-19 Status: Acute Assessment and Plan: Chronically positive test and so no need for isolation according to Infectious Disease. No fevers or chills. (4) Acute hyperkalemia: Code(s): E87.5 - Hyperkalemia Status: Acute Assessment and Plan: Potassium is okay today (5) Hypertension: Qualifiers: Hypertension type: renovascular hypertension Qualified Code(s): I15.0 - Renovascular hypertension Code(s): I10 - Essential (primary) hypertension Status: Chronic Assessment and Plan: blood pressure was high in the emergency room. She has been given her regular medications blood pressure doing well. Systolic running in the 110s to 140s. 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 Will be managed by the hospitalists. (7) Erythropoietin deficiency anemia: Code(s): D63.1 - Anemia in chronic kidney disease Status: Acute Assessment and Plan: Hemoglobin was 9.2 yesterday. Getting EPO on dialysis (8) Renal osteodystrophy: Code(s): N25.0 - Renal osteodystrophy Status: Acute Assessment and Plan: phosphorus level is good (9) Coronary artery disease with hx of myocardial infarct w/o hx of CABG: Code(s): I25.10 - Atherosclerotic heart disease of [place] coronary artery without angina pectoris; I25.2 - Old myocardial infarction Status: Acute Assessment and Plan: the patient has minimally elevated troponins. These were stable 4hours apart. Likely related to her renal insufficiency but ultimately will leave the evaluation of her chest pain up to the hospitalists. no chest pain Subjective Date/time seen: 05/28/23 15:21 Interval history: Tawana is feeling better. She had her dialysis this morning. Lying flat in bed without any problem. Exam Narrative: WDWN in NAD skin no rash head ncat lungs clear bilaterally cor reg no rub or gallop abd BS+ nontender and soft ext Minimal edema. Objective Data Vital Signs Vital Signs: Vital Signs - 24 hr 05/27/23 21:28 05/27/23 20:00 05/28/23 06:00 Temperature 98.4 F 97.9 F Pulse Rate 68 67 Respiratory Rate 18 20 Blood Pressure 159/56 H 135/45 L Pulse Oximetry 98 97 Oxygen Delivery Room Air 05/28/23 09:10 05/28/23 08:37 05/28/23 08:45 Temperature 97.7 F Pulse Rate 67 65 65 Respiratory Rate 16 Blood Pressure 168/73 H 180/66 H 166/67 H Pulse Oximetry Oxygen Delivery 05/28/23 09:00 05/28/23 09:15 05/28/23 09:30 Temperature Pulse Rate 65 63 71 Respiratory Rate Blood Pressure 105/38 L 151/64 H 131/38 L Pulse Oximetry Oxygen Delivery 05/28/23 09:45 05/28/23 10:00 05/28/23 10:15 Temperature Pulse Rate 63 69 64 Respiratory Rate Blood Pressure 144/58 H 144/66 H 118/48 L Pulse Oximetry Oxygen Delivery 05/28/23 10:30
--- NOTE | 2023-05-28 16:09 | PCRCNOTE ---
Apnea Link test results came back with needs of 2 L @ [facility]. [facility] contacted.
--- NOTE | 2023-05-28 16:24 | PM.DS ---
DS: Admitting Diagnosis Discharge Date 05/28/23 Admitting Diagnosis Shortness of breath DS: Discharge Diagnosis Discharge Diagnosis (1) Hypoxia: Code(s): R09.02 - Hypoxemia Status: Acute (2) Fluid overload: Code(s): E87.70 - Fluid overload, unspecified Status: Acute (3) End stage renal disease on dialysis: Code(s): N18.6 - End stage renal disease; Z99.2 - Dependence on renal dialysis Status: Acute (4) COVID: Code(s): U07.1 - COVID-19 Status: Acute (5) Tobacco abuse: Code(s): Z72.0 - Tobacco use Status: Acute (6) Insulin dependent type 2 diabetes mellitus: Code(s): E11.9 - Type 2 diabetes mellitus without complications; 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 Patient was just hospitalized from 05/23-05/24 for shortness of breath and chest pain.??Please see H&P for details Hospital Course: Patient admitted to IMU for hypoxia. Not clear if she was actually hypoxia (94% on RA on admission) but CXR does show evidence of fluid overload. Suspect this is the etiology of her mild hypoxia. Consider PNA, untreated ALANNA and/or COPD. Doubt PE since not tachycardic and she is on apixaban. PNA less likely since WBC normal and no fever or cough. Patient with ESRD related to diabetes and hypertension. She is followed by Dr. Clarke in [place]. She is on the //Sat schedule. Nephrology consulted and appreciate their input. She had dialysis 05/25 with removal of 2.9L. She was weaned to room air. Apnea link showing AHI 15 and RI 20. She spent 96 minutes with Spo2<88%. Repeat Apnea link on 2L overnight showing no significant hypoxia. She qualified for nocturnal O2 which was set up. She underwent HD again on 05/28 with 2.4L removed. She had a positive COVID test 05/23 but probably residual positive findings from her original COVID test being positive on 05/06/2023.??Patient has been educated about the benefits of smoking cessation. She overall did well and wa able to be discharged on 05/28/23. Status at Discharge Cognitive/behavioral status at discharge: Stable Time Spent with Patient Time attestation: Total time spent providing and/or coordinating discharge services: 35 minutes Time spent: Greater than 30 minutes Exam Narrative: AF 97.8 130/56 63 18 97% ra Gen - NARD Chest - distant BS. nml RR CV - RRR S1/S2 Abd - Soft, NT/ND, Positive BS Ext - left BKA and right AKA. Psych - Nml mood and affect Skin - Warm and dry DS: Data Data Completed and Pending Labs on day of discharge: Labs from last 24 hours 05/28/23 05/28/23 05/28/23 11:17 08:24 07:17 Sodium 136 L Potassium 4.4 Chloride 97 L Carbon Dioxide 29 Anion Gap 10 BUN 47 H D Creatinine 7.40 H Estim Creat Clear Calc Not Reportable Estimated GFR 5 L Glucose 112 H POC Capillary Glucose 107 H 129 H Calcium 7.6 L Phosphorus 5.1 H Albumin 3.1 L 05/27/23 05/27/23 20:43 16:46 Sodium Potassium Chloride Carbon Dioxide Anion Gap BUN Creatinine Estim Creat Clear Calc Estimated GFR Glucose POC Capillary Glucose 189 H 167 H Calcium Phosphorus Albumin Preliminary micro results at discharge 05/25/23 07:02 Blood Culture - Preliminary Blood 05/25/23 06:41 Blood Culture - Preliminary Blood Discharge Plan Discharge Attending physician on discharge: Brad Mendoza Consulting providers: Elio Pereira Discharging Clinician: Brad Mendoza Anticipated Discharge Date/Time: 05/28/23 16:34 Patient Disposition: Home, Self-Care Activity: as tolerated Diet: renal Discharge Instructions: DO NOT SMOKE NEVER SMOKE OR HAVE OPEN FLAME AROUND OXYGEN Call [facility] to have your Oxygen d
[2023-05-28 17:04] LABS: Glucose Point of Care 136 mg/dl (65-105)
[2023-05-28] MEDS: carvediloL 12.5 MG TABLET PO (17:08)
== END 2023-05-28 18:35 | disposition home or self-care (01) ==
LOC: ANHED 03:12 → ANHIMU 05:18 → ANH3MEDSUR 05-28 14:02 → ANHIMU 05-29 09:48
PROVIDERS: Internal Medicine Nephrology; Admitting Provider Internal Medicine; Emergency Provider Emergency Medicine; PCP Internal Medicine; Visit Provider Internal Medicine
DX: J96.91 Respiratory failure, unspecified with hypoxia (principal); E87.70 Fluid overload, unspecified; I13.2 Hypertensive heart and chronic kidney disease with heart failure and with stage 5 chronic kidney disease, or end stage renal disease; E11.22 Type 2 diabetes mellitus with diabetic chronic kidney disease; N18.6 End stage renal disease; I50.9 Heart failure, unspecified; D63.1 Anemia in chronic kidney disease; Z99.2 Dependence on renal dialysis; U07.1 COVID-19; E87.5 Hyperkalemia; I15.0 Renovascular hypertension; N25.0 Renal osteodystrophy; I25.10 Atherosclerotic heart disease of native coronary artery without angina pectoris; Z95.1 Presence of aortocoronary bypass graft; J44.9 Chronic obstructive pulmonary disease, unspecified; J81.1 Chronic pulmonary edema; D64.9 Anemia, unspecified; R94.31 Abnormal electrocardiogram [ECG] [EKG]; Z98.62 Peripheral vascular angioplasty status; E78.5 Hyperlipidemia, unspecified; E11.319 Type 2 diabetes mellitus with unspecified diabetic retinopathy without macular edema; E11.51 Type 2 diabetes mellitus with diabetic peripheral angiopathy without gangrene; E11.40 Type 2 diabetes mellitus with diabetic neuropathy, unspecified; M86.9 Osteomyelitis, unspecified; I48.0 Paroxysmal atrial fibrillation; F41.8 Other specified anxiety disorders; F17.210 Nicotine dependence, cigarettes, uncomplicated; Z86.16 Personal history of COVID-19; Z66 Do not resuscitate; Z79.4 Long term (current) use of insulin; Z79.01 Long term (current) use of anticoagulants; Z79.899 Other long term (current) drug therapy; R91.8 Other nonspecific abnormal finding of lung field; I70.0 Atherosclerosis of aorta; M85.80 Other specified disorders of bone density and structure, unspecified site
CPT/HCPCS: 36415; 36600; 71045; 80053; 80069; 82805; 82948; 85025; 85027; 85055; 85610; 85730; 87040; 93005; 94762; 96374; A9270; G0257; G0378; J1644; J1815; J7030; Q5105

== ENCOUNTER 2023-06-01 09:15 | Inpatient (IN) | payer MEDICARE, OTHER, SELFPAY ==
[2023-06-01] VITALS (60 sets, daily range): BP systolic 85–138; BP diastolic 38–67; PULSE 66–86; RESP 13–22; TEMP 36.2–37; O2SAT 96–100
--- NOTE | ~2023-06-01 | XR_ITS ---
EXAMINATION: XR chest 1V portable DATE: 06/01/2023 10:32 INDICATION: Dyspnea. Cough. TECHNIQUE: A single frontal view of the chest was obtained. COMPARISON: Chest single view 05/26/2023 FINDINGS: Kimi B lines are noted, consistent with mild pulmonary edema. No pleural effusion or pneu mothorax. Cardiomegaly is noted. Median sternotomy wires and mediastinal surgical clips are seen, lik daniel from prior coronary artery bypass grafting. A right internal jugular central venous catheter is s een with tip in the right atrium. IMPRESSION: 1. Mild pulmonary edema. 2. Cardiomegaly. Reviewed, dictated and finalized at location A. [facility]
--- NOTE | 2023-06-01 09:22 | ECG_ITS ---
Measurements Intervals [place] Rate: 77 P: 78 VT: 202 QRS: -79 QRSD: 152 T: 102 QT: 420 QTc: 478 Interpretive Statements SINUS RHYTHM MARKED LEFT AXIS DEVIATION [QRS AXIS < -30] RIGHT BUNDLE BRANCH BLOCK [120+ ms QRS DURATION, UPRIGHT V1, 40+ ms S IN I/aVL/V4/V5/V6] PROBABLE ANTEROSEPTAL MYOCARDIAL INFARCTION , OF INDETERMINATE AGE [35 ms Q WAVE IN V1- V4] MODERATE T-WAVE ABNORMALITY, CONSIDER LATERAL ISCHEMIA [-0.1+ mV T WAVE IN I/aVL/V5/V6] COMPARED TO ECG 05/25/2023 02:44:21 T-WAVE ABNORMALITY IN THE HIGH LATERAL LEADS IS MORE PRONOUNCED Electronically Signed On 06-02-2023 14:31:54 METEOROLOGIST IN CHARGE by Marci Domínguez M.D.
--- NOTE | 2023-06-01 09:31 | ED.SOB ---
HPI - SOB/Dyspnea General Chief Complaint: Shortness of Breath/Dyspnea <Kika Maravilla PA-C - Last Filed: 06/01/23 14:19> Stated Complaint: resp distress <Kika Maravilla PA-C - Last Filed: 06/01/23 14:19> History of Present Illness HPI Narrative: 72-year-old female with a history of COPD, end-stage renal disease on dialysis, hypertension, insulin-dependent type 2 diabetes, CAD, s/p 4 vessel CABG reports for evaluation for acute dyspnea after she woke up this morning. Patient states she went to bed last night feeling normal. states she woke up this morning and became short of breath with associated chest tightness and called EMS. Patient arrives on a CPAP satting 100%. She reports a cough that is unchanged from baseline. States she no longer still short of breath while on CPAP. She is reporting chest tightness in her anterior chest wall. She denies fever, abdominal pain, nausea, vomiting, diarrhea, edema, dysuria, headache, lightheadedness or dizziness. She is on a Saturday, Saturday dialysis schedule at [facility]. She did not attend her dialysis today but attended her last dialysis appointment 2 days ago. Pt is under the care of Dr. Clarke at [place] (nephrology.) Patient is anticoagulated with Eliquis. States she normally wears 2L NC at night. <Kika Maravilla PA-C - Last Filed: 06/01/23 14:19> Related Data Home Medications: Home Medications Medication Instructions Recorded Confirmed insulin degludec 100 unit/mL 32 unit subcut HS 11/03/19 05/25/23 subcutaneous solution (Tresiba U-100 Insulin) cetirizine 10 mg tablet 10 mg PO DAILY PRN allergies 02/06/22 05/25/23 insulin aspart U-100 100 unit/mL 8 unit subcut TIDWMEAL 02/28/22 05/25/23 (3 mL) subcutaneous pen (Novolog FlexPen U-100 Insulin aspart) pantoprazole 40 mg tablet,delayed 40 mg PO DAILY 02/28/22 05/25/23 release calcium carbonate 300 mg (750 mg) 2 tablet PO DAILY PRN Indigestion 01/10/23 05/25/23 chewable tablet (Tums E-X) nifedipine 30 mg tablet,extended See Rx Instructions .Route .COMPLEX 02/20/23 05/25/23 release apixaban 5 mg tablet 5 mg PO BID 03/26/23 05/25/23 atorvastatin 40 mg tablet 40 mg PO HS 04/24/23 05/25/23 carvedilol 12.5 mg tablet (Coreg) 12.5 mg PO Q12H 04/24/23 05/25/23 gabapentin 400 mg capsule 400 mg PO TID 04/24/23 05/25/23 losartan 100 mg tablet 100 mg PO .MONWEDFRISUN 04/24/23 05/25/23 nitroglycerin 0.4 mg sublingual 0.4 mg sublingual Q5MIN PRN Chest 04/24/23 05/25/23 tablet Pain <Kika Maravilla PA-C - Last Filed: 06/01/23 14:19> Allergies/Adverse Reactions: Allergies Allergy/AdvReac Type Severity Reaction Status Date / Time No Known Allergies Allergy Verified 05/25/23 02:47 <Kika Maravilla PA-C - Last Filed: 06/01/23 14:19> Review of Systems Review of Systems: CONSTITUTIONAL: Denies fever, chills, or sweats. EYES: Denies visual changes, redness, or discharge. ENT: Denies rhinorrhea, congestion, sore throat, or otalgia. CARDIOVASCULAR: Denies chest pain, palpitations, or edema. RESPIRATORY: See HPI GASTROINTESTINAL: Denies abdominal pain, nausea, vomiting, or diarrhea. GENITOURINARY: Denies dysuria or hematuria. SKIN: Denies rash or itching. MUSCULOSKELETAL: Denies back pain, joint pain, or myalgia. NEUROLOGIC: Denies headache, numbness, or weakness. PSYCHIATRIC: Denies anxiety or depression. <Kika Maravilla PA-C - Last Filed: 06/01/23 14:19> [facility] Past Medical History Medical History: Medical History Anxiety with depression Arterial vascular disease Chronic anemia Coronary artery disease COVID Digital arterial occlusive disease End-stage renal disease on hemodialysis Saturday, , Saturday. 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 Hemoglobin A1c was 6.8%
[2023-06-01 09:51] LABS: Basophils Percent Auto 0.5 % (0.2-1.2); Eosinophils Absolute Auto 0.2 K/mm3 (0-0.3); Eosinophils Percent Auto 3.5 % (0-4.4); Hematocrit 29.1 % (37.0-47.0); Hemoglobin 8.7 g/dL (12.0-15.0); Immature Granulocyte Absolute 0.03 K/mm3 (0.00-0.031); Immature Granulocyte Percent A 0.5 % (0-0.5); Lymphocytes Absolute Auto 1.04 K/mm3 (0.9-3.2); Lymphocytes Percent Auto 18.4 % (18.3-44.2); Mean Corpuscular HGB Conc 29.9 g/dl (32-36); Mean Corpuscular Hemoglobin 31.4 pg (26-34); Mean Corpuscular Volume 105.1 fl (80-100); Mean Platelet Volume 12.7 fl (7.4-10.4); Monocytes Absolute Auto 0.3 K/mm3 (0.1-0.6); Monocytes Percent Auto 5.1 % (2.6-8.5); Neutrophils Absolute Auto 4.1 K/mm3 (1.3-6.7); Platelet Count Result 107 k/mm3 (150-375); Red Blood Count 2.77 M/mm3 (4.2-5.4); Red Cell Distribution Width 13.9 % (11.5-14.5); White Blood Count 5.6 K/mm3 (4.5-10.0)
[2023-06-01] MEDS: ASPIRIN 81 MG CHEWABLE TABLET 324 MG PO (09:56)
[2023-06-01 10:05] LABS: Alanine Aminotransferase 11 U/L (6-35); Albumin Level 3.4 g/dL (3.5-5.1); Alkaline Phosphatase 156 U/L (38-126); Anion Gap 9 mmol/L (8-16); Aspartate Amino Transferase 18 U/L (14-36); Bilirubin,Total 0.4 mg/dL (0.2-1.3); Blood Urea Nitrogen 47 mg/dL (7-17); Calcium 8.3 mg/dL (8.4-10.2); Carbon Dioxide 28 mmol/L (22-30); Chloride 103 mmol/L (98-107); Estimated CRCL calculation 7 ml/min; Estimated Glomerular Filt Rate 6; Glucose 271 mg/dL (65-110); Lipase 259 U/L (23-300); Potassium 5.3 mmol/L (3.4-5.0); Sodium 140 mmol/L (137-145)
[2023-06-01 10:14] LABS: INR 1.3; Partial Thromboplastin Time 34.6 SECONDS (22.3-36.8); Prothrombin Time 17.2 Seconds (11.1-14.7)
[2023-06-01 10:18] LABS: NT Pro B Type Natriuretic Pept > 30000 pg/mL (19.9-100); Troponin I 0.366 ng/mL (0.000-0.034)
[2023-06-01 10:47] LABS: Hypochromasia 2+ (NORMAL); Platelet Estimate Decreased (Adequate); Schistocytes None Seen (NORMAL)
[2023-06-01 10:51] LABS: Influenza A QL RT-PCR Negative (Negative); Influenza B QL RT-PCR Negative (Negative); RSV RNA, RT-PCR Negative (Negative); SARS-CoV-2 RNA PCR Negative (Negative)
[2023-06-01 11:15] LABS: Appearance Urine Turbid (Clear); Bacteria Urine 4+ /hpf; Bilirubin Urine Negative (Negative); Blood Urine 3+ (Negative); Color Urine Yellow (Yellow); Glucose Urine UA 2+ mg/dL (Negative); Ketones Urine Trace mg/dL (Negative); Leukocyte Esterase Ur 3+ LEU/UL (Negative); Need Manual Microscopic Reviewed; Nitrate Urine Negative (Negative); Protein Urine 4+ mg/dL (Negative); RBC Urine >100 /hpf (0-2); Specific Grav Ur 1.017 (1.001-1.035); Squamous Epithelial Cell Urine Moderate /hpf (Few); Urobilinogen Urine 0.2 mg/dL (<2.0); WBC Urine >100 /hpf
[2023-06-01 11:16] LABS: Add Urine Microscopic? YES
[2023-06-01 11:42] LABS: Base Excess ABG 1.6 mEq/l (+/-2.0); Fractional Inspired Oxygen 30 %; HCO3 ABG 27.2 mEq/l (22.0-26.0); Oxygen Content ABG 13.3 %vol (16.0-22.0); Oxygen Saturation ABG 96.6 % (95.0-100.0); Oxyhemoglobin 95.2 % THb (90.0-100.0); PCO2 ABG 47.5 mmHg (35.0-45.0); PO2 ABG 90.1 mmHg (80.0-100.0); Total Hemoglobin 9.8 g/dL (12.0-18.0); pH ABG 7.375 (7.350-7.450)
[2023-06-01 11:45] LABS: Site Drawn RIGHT BRACHIAL
[2023-06-01 11:46] LABS: Device NON-INVASIVE VENT; Non-Invasive Vent Rate 16 /MIN
[2023-06-01 11:47] LABS: Non-Invasive Expiratory Pressure 7 CMH2O; Non-Invasive Inspiratory Pressure 14 CMH2O
[2023-06-01 12:08] LABS: Magnesium 2.3 mg/dL (1.6-2.3)
[2023-06-01] MEDS: IPRATROPIUM BR 0.02% INH SOLN 0.5 MG/2.5 ML VIAL INHALATION ×3 (14:02→14:54)
[2023-06-01] MEDS: ALBUTEROL SULFATE NEB 2.5 MG/3 ML INH INHALATION ×3 (14:03→14:53)
[2023-06-01 14:13] LABS: Alveolar/Arterial O2 Gradient 55.5 mmHg; Base Excess ABG 4.3 mEq/l (+/-2.0); Fractional Inspired Oxygen 30 %; Oxygen Content ABG 14.1 %vol (16.0-22.0); Oxygen Saturation ABG 97.4 % (95.0-100.0); Oxyhemoglobin 96.2 % THb (90.0-100.0); PCO2 ABG 50.5 mmHg (35.0-45.0); PO2 ABG 99.1 mmHg (80.0-100.0); Total Hemoglobin 10.3 g/dL (12.0-18.0); pH ABG 7.392 (7.350-7.450)
[2023-06-01 14:14] LABS: Device NON-INVASIVE VENT; Modified Allen's Test Pass; Site Drawn RIGHT BRACHIAL
[2023-06-01 14:15] LABS: Non-Invasive Expiratory Pressure 7 CMH2O; Non-Invasive Inspiratory Pressure 14 CMH2O; Non-Invasive Vent Rate 16 /MIN
--- NOTE | 2023-06-01 14:57 | PM.IMHP ---
H&P: HPI History of Present Illness Date/Time: 06/01/23 15:45 Chief Complaint: Chest pain and shortness of breath. Narrative: This is a 72-year-old female smoker with coronary artery disease with history of CABG, peripheral vascular disease status post bilateral lower extremity amputations, insulin-dependent diabetes, end-stage renal disease on hemodialysis, hypertension, chronic respiratory failure on nighttime oxygen, and chronic anemia who presented to the emergency department via EMS from home for evaluation of chest pain and shortness of breath. She is well known to myself and the hospitalist service from numerous admissions over the years and she has been in and out of the hospital recently with similar complaints. In fact she was last discharged from this facility on 05/28/2023 after presenting with shortness of breath, hypoxia, and fluid overload. She is on a Saturday, , Saturday dialysis schedule and she has not missed any sessions from her most recent discharge. She reports feeling fine when she went to bed last night and shortly after waking up she became extremely short of breath and mid chest tightness. She called 911 and on their arrival she was reportedly in respiratory distress and she was started on CPAP however was weaned from that quickly once she was in the ED. Initial troponin was 0.366 and EKG showed more pronounced ST depression compared to previous EKG tracing. Dr. Domínguez (Cardiology) was consulted by the ED and if the patient desired any intervention she recommended transfer to tertiary care facility as her most recent cardiac catheterization demonstrated disease which would make her at high risk for PCI. ED provider spoke with the patient and her daughter and today reiterate the patient DNR/DNI status and they do not wish the patient to be transferred for consideration for cardiac catheterization as she would not want any intervention. Her chest x-ray showed mild pulmonary edema and BNP was significant for potassium of 5.3, BUN 47, creatinine 6.50. I evaluated the patient while she was in dialysis and she reports feeling back to baseline and is hoping that she can go home later today. She has not had any recurrent chest discomfort and she denies feelings of shortness of breath. She also denies syncope, near syncope, sweats, pleuritic pain, cough, nausea, vomiting, and diarrhea. She does still urinate in small amounts or reports mild dysuria. Review of Systems Review of Systems: Twelve systems were reviewed and are negative except for as per HPI. PMFSH Past Medical History Medical History Anxiety with depression Arterial vascular disease Chronic anemia Coronary artery disease COVID Digital arterial occlusive disease End-stage renal disease on hemodialysis Saturday, , Saturday. 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 Hemoglobin A1c was 6.8% in February 2020. Osteomyelitis Paroxysmal atrial fibrillation Peripheral vascular disease Renal osteodystrophy Thrombocytopenia Surgical History Surgical History Amputation of right forefoot Right 4th and 5th ray amputation in 04/2017. Right foot transmetatarsal amputation with partial fasciotomy due to wet gangrene, osteomyelitis, and necrotizing fasciitis in May 2017. 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 History of below-knee amputation of both lower extremities Left [id number] amputation in 2017. Right [id number] amputation in 02/2020. History of bilateral cataract extraction History of carpal tunnel release History of four vessel coronary artery bypass graft (04/2019) History of right above knee amputation (05/12/20) History of spinal f
--- NOTE | 2023-06-01 15:05 | PC.NURSE ---
Pt taken to Dialysis.
--- NOTE | 2023-06-01 15:35 | PM.CNNEP ---
Assessment and Plan Assessment and plan (1) End stage renal disease: Assessment and Plan: HD today continue T/T/S dialysis schedule while hospitalized follow electrolytes, volume status, and clearance (2) Shortness of breath: Code(s): R06.02 - Shortness of breath Status: Acute Assessment and Plan: likely related to several issues: mild pulmonary edema chest pain underlying history of COPD reactive airway disease admission CXR noted fluid removal/ultrafiltration as tolerated with dialysis follow respiratory status (3) Chest pain: Qualifiers: Chest pain type: unspecified Qualified Code(s): R07.9 - Chest pain, unspecified Code(s): R07.9 - Chest pain, unspecified Status: Acute Assessment and Plan: no further symptoms at this time appears to have resolved with improvement in shortness of breath however, elevated troponins noted recent cardiac catheterization results reviewed(from 02/28/23) (4) Hypertension: Assessment and Plan: reasonable control resume home medications follow trend of hemodynamics post-HD (5) Anemia: Assessment and Plan: due to ESRD Epogen with HD follow trend of H/H (6) Insulin dependent type 2 diabetes mellitus: Assessment and Plan: follow accuchecks glycemic control per hospitalists I will continue follow the patient with you while she remains hospitalized make further recommendations during her hospital course. Thank you for allowing me to participate in the care of this patient. History of Present Illness Reason for Consult Consult date: 06/01/23 Reason for consult: end stage renal disease Chief Complaint Chief complaint: Acute Hypoxic Respiratory Failure History of Present Illness Narrative: The patient is a 72-year-old female with extensive past medical history as outlined below who presented to [facility] for further evaluation of shortness of breath. The patient apparently went to bed last night feeling like her normal usual self. However, she woke up this morning with acute shortness of breath in association with chest tightness. She called EMS to the symptoms and apparently they placed her on CPAP given her symptoms. With application of CPAP, her shortness of breath improved significantly. With regard to her chest tightness, she localizes this to her anterior chest wall and she cannot tell me exactly how long this symptom was present in general she gave no other history with regard to fevers, chills, nausea, vomiting, lightheadedness, dizziness or palpitations. EMS subsequently transferred her to the emergency room for further assessment. it should be noted the patient was just discharged from [facility] approximately 4 days ago with a similar presentation. As mentioned, by the time of her arrival to the emergency room, her shortness of breath seem to have resolved with the use of CPAP. She was otherwise hemodynamically stable. However, due to evidence of increased work of breathing and use of abdominal muscles, she was switched from CPAP to BiPAP which seem to alleviate this issue/problem. Subsequent workup and evaluation demonstrated laboratory findings consistent with her known history of end-stage renal disease with a mildly elevated potassium as well as an elevated BUN and creatinine with no other critical electrolyte abnormalities. Her CBC was unremarkable except for chronic anemia which seems to be close to her baseline. Her EKG showed right bundle-branch block with persistent ST elevation in V1 and V2 and ST depressions in the lateral leads as well which was similar to previous EKGs. Her troponin was mildly elevated but her 3 hour troponin following that was higher at 1.570. However, she denies any chest discomfort or pain on repeat assessment. Her chest x-ray showed mild pulmonary edema and cardiomegaly and her COVID/RSV/ influenza t
--- NOTE | 2023-06-01 16:19 | ADMGEN ---
This patient, Tawana Prado, was admitted to 3 [facility] Surg Room 312-01. Report per ALVARO Nelson. Patient/family oriented to hospital policies and general routines including ID bracelet, bed and alarms, visiting hours, pain management, procedures, bathroom and other care routines, personal items, smoking policy, room service/diet, and visiting hours. Information on how to activate the Rapid Response Team has been discussed. Patient/Family are encouraged to report perceived risks to care and to ask questions if they do not understand what they are told or what they should do.
[2023-06-01] MEDS: EPOETIN ALFA-EPBX 10,000 UNITS/ML VIAL 10000 UNITS IV PUSH (17:01)
[2023-06-01] MEDS: ATORVASTATIN 40 MG TABLET PO (22:48)
[2023-06-02] VITALS (11 sets, daily range): BP systolic 111–142; BP diastolic 35–53; PULSE 61–113; RESP 13–16; TEMP 36.1–36.6; O2SAT 96–100
[2023-06-02 00:14] LABS: Glucose Point of Care 118 mg/dl (65-105)
[2023-06-02 06:25] LABS: Hematocrit 29.5 % (37.0-47.0); Mean Corpuscular HGB Conc 30.5 g/dl (32-36); Mean Corpuscular Hemoglobin 31.8 pg (26-34); Mean Corpuscular Volume 104.2 fl (80-100); Mean Platelet Volume 12.3 fl (7.4-10.4); Platelet Count Result 119 k/mm3 (150-375); Red Blood Count 2.83 M/mm3 (4.2-5.4); Red Cell Distribution Width 13.9 % (11.5-14.5); White Blood Count 4.6 K/mm3 (4.5-10.0)
[2023-06-02 06:50] LABS: Anion Gap 6 mmol/L (8-16); Blood Urea Nitrogen 26 mg/dL (7-17); Calcium 7.9 mg/dL (8.4-10.2); Carbon Dioxide 34 mmol/L (22-30); Chloride 99 mmol/L (98-107); Estimated CRCL calculation 10 ml/min; Estimated Glomerular Filt Rate 10; Glucose 120 mg/dL (65-110); Potassium 4.1 mmol/L (3.4-5.0); Sodium 139 mmol/L (137-145)
[2023-06-02 08:02] LABS: Glucose Point of Care 125 mg/dl (65-105)
--- NOTE | 2023-06-02 08:12 | PM.IMPN ---
Progress Note: A&P Assessment and Plan (1) Abnormal urinalysis: Code(s): R82.90 - Unspecified abnormal findings in urine Status: Acute (2) Elevated troponin: Code(s): R79.89 - Other specified abnormal findings of blood chemistry Status: Acute (3) Hypertension: Qualifiers: Hypertension type: renovascular hypertension Qualified Code(s): I15.0 - Renovascular hypertension Code(s): I10 - Essential (primary) hypertension Status: Chronic (4) History of amputation below knee: Code(s): Z89.519 - Acquired absence of unspecified leg below knee Status: Acute (5) Chronic anemia: Code(s): D64.9 - Anemia, unspecified Status: Acute (6) End-stage renal disease on hemodialysis: Code(s): N18.6 - End stage renal disease; Z99.2 - Dependence on renal dialysis Status: Chronic (7) Insulin dependent type 2 diabetes mellitus: Code(s): E11.9 - Type 2 diabetes mellitus without complications; 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 06/02/2023 - continue oxygen titration, to maintain SpO2 greater than 93% -pt admits to non-compliance with fluid restriction guidelines -reports no- SOB since last HD tx Elevated troponin: suspect demand ischemia, patient with end-stage renal failure on HD -continue telemetry monitoring - initial troponin 0.366 elevated from baseline EKG showed worsening ST depressions in some leads -Patient denies any chest pain at this time - patient/daughter declined transfer to tertiary care and do not wish to pursue intervention at this time CAD: -continue, clopidogrel, isosorbide and atorvastatin End-stage renal disease on hemodialysis: - nephrology consulted -Continue HD as scheduled by Nephrology Followed by Dr. Clarke in [place], on Saturday//Saturday schedule. Unspecific abnormal findings in the urine: - produces some urine, reports mild dysuria Afebrile, WBC count is normal - hold antibiotics until final urine culture Insulin-dependent type 2 diabetes: - continue sliding scale insulin -Accu-Cheks - hypoglycemic protocol HTN -continue Home medication losartan Nifedipine Anemia: chronic, HGB/HCT are stable - patient receives Epogen with HD - recheck CBC, BMP daily VTE: on apixaban Diet: Renal Diet Anticipated hospital stay: > 2days Code Status: DNR Subjective Date/time seen: 06/02/23 08:12 Interval history: This is a 72-year-old female smoker with coronary artery disease with history of CABG, peripheral vascular disease status post bilateral lower extremity amputations, insulin-dependent diabetes, end-stage renal disease on hemodialysis, hypertension, chronic respiratory failure on nighttime oxygen, and chronic anemia who presented to the emergency department via EMS from home for evaluation of chest pain and shortness of breath. She is well known to myself and the hospitalist service from numerous admissions over the years and she has been in and out of the hospital recently with similar complaints. In fact she? was last discharged from this facility on 05/28/2023 after presenting with shortness of breath, hypoxia, and fluid overload. She is on a Saturday, , Saturday dialysis schedule and she has not missed any sessions from her most recent discharge. She reports feeling fine when she went to bed last night and shortly after waking up she became extremely short of breath and mid chest tightness. She called 911 and on their arrival she was reportedly in respiratory distress and she was started on CPAP however was weaned from that quickly once she was in the ED. Initial troponin was 0.366 and EKG showed more pronounced
[2023-06-02] MEDS: GABAPENTIN 400 MG CAPSULE PO ×3 (08:23→17:08)
[2023-06-02] MEDS: carvediloL 12.5 MG TABLET PO (08:23)
[2023-06-02] MEDS: LOSARTAN POTASSIUM 100 MG TABLET PO (08:23)
[2023-06-02] MEDS: PANTOPRAZOLE 40 MG TABLET PO (08:23)
[2023-06-02] MEDS: SEVELAMER CARBONATE 800 MG TABLET PO ×3 (08:23→17:08)
[2023-06-02] MEDS: NIFEdipine 30 MG TAB.ER.24 BY MOUTH (08:23)
[2023-06-02] MEDS: CLOPIDOGREL BISULFATE 75 MG TABLET PO (08:23)
[2023-06-02] MEDS: INSULIN ASPART (*BKC) 100 UNITS/ML 8 UNITS SUB-Q ×3 (08:23→17:08)
--- NOTE | 2023-06-02 11:31 | P.PNNP_ITS ---
Progress Note: A&P Assessment and Plan (1) End stage renal disease: Code(s): N18.6 - End stage renal disease Status: Chronic Assessment and Plan: * HD yesterday * continue T/T/S dialysis schedule * follow electrolytes, volume status, and clearance * does outpatient dialysis at [facility] under the care of Dr. Clarke (2) Shortness of breath: Code(s): R06.02 - Shortness of breath Status: Acute Assessment and Plan: * likely related to several issues: * mild pulmonary edema * non-compliance with fluid restriction * chest pain * underlying history of COPD * reactive airway disease * admission CXR noted * fluid removal/ultrafiltration as tolerated with dialyiss * follow respiratory status (3) Chest pain: Qualifiers: Chest pain type: unspecified Qualified Code(s): R07.9 - Chest pain, unspecified Code(s): R07.9 - Chest pain, unspecified Status: Acute Assessment and Plan: * no further episodes since admission * noted trend/rising troponin levels with known history of CAD * she ferguson not want any cardiac intervention done * previous cardiac catheterization results noted (02/28/23) * continue medical management (4) Hypertension: Qualifiers: Hypertension type: renovascular hypertension Qualified Code(s): I15.0 - Renovascular hypertension Code(s): I10 - Essential (primary) hypertension Status: Chronic Assessment and Plan: * reasonable control at this time * follow trend of hemodynamics (5) Anemia: Code(s): D64.9 - Anemia, unspecified Status: Chronic Assessment and Plan: * related to ESRD and frequent hospitalizations * Epogen with HD * follow H/H (6) Insulin dependent type 2 diabetes mellitus: Code(s): E11.9 - Type 2 diabetes mellitus without complications; Z79.4 - nursing home (c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 Subjective Date/time seen: 06/02/23 11:31 Interval history: Follow-up for end stage renal disease on hemodialysis. Tolerated hemodialysis treatment yesterday afternoon without any issues or problems; breathing/respiratory status appears to be doing better; no apparent distress noted at the time of my visit; no other issues/events overnight or earlier this morning; she is asking me about possible discharge today. Exam Narrative: General: elderly female in NAD Heart: normal S1 and S2; no rub Lungs: clear anteriorly; decreased at bases Abdomen: soft, nontender, nondistended, positive bowel sounds Extremities: no cyanosis or clubbing; no edema; s/p left BKA and right AKA Skin: warm and dry Objective Data Vital Signs Vital Signs: Vital Signs Temp Pulse Resp BP Pulse Ox O2 Del Method O2 Flow Rate 06/02/23 11:00 71 06/02/23 08:20 100 Nasal Cannula 2 06/02/23 08:20 67 06/02/23 08:23 112 H 06/02/23 07:28 97.2 F L 113 H 16 142/50 H 100 06/02/23 04:00 72 06/02/23 00:00 64 06/01/23 20:00 68 06/01/23 20:00 100 Nasal Cannula 3 06/01/23 20:40 97 Nasal Cannula 2 06/01/23 22:00 97.2 F L 66 18 103/39 L 100 06/01
--- NOTE | 2023-06-02 11:31 | PM.PNNEP ---
Progress Note: A&P Assessment and Plan (1) End stage renal disease: Code(s): N18.6 - End stage renal disease Status: Chronic Assessment and Plan: HD yesterday continue T/T/S dialysis schedule follow electrolytes, volume status, and clearance does outpatient dialysis at [facility] under the care of Dr. Clarke (2) Shortness of breath: Code(s): R06.02 - Shortness of breath Status: Acute Assessment and Plan: likely related to several issues: mild pulmonary edema non-compliance with fluid restriction chest pain underlying history of COPD reactive airway disease admission CXR noted fluid removal/ultrafiltration as tolerated with dialyiss follow respiratory status (3) Chest pain: Qualifiers: Chest pain type: unspecified Qualified Code(s): R07.9 - Chest pain, unspecified Code(s): R07.9 - Chest pain, unspecified Status: Acute Assessment and Plan: no further episodes since admission noted trend/rising troponin levels with known history of CAD she ferguson not want any cardiac intervention done previous cardiac catheterization results noted (02/28/23) continue medical management (4) Hypertension: Qualifiers: Hypertension type: renovascular hypertension Qualified Code(s): I15.0 - Renovascular hypertension Code(s): I10 - Essential (primary) hypertension Status: Chronic Assessment and Plan: reasonable control at this time follow trend of hemodynamics (5) Anemia: Code(s): D64.9 - Anemia, unspecified Status: Chronic Assessment and Plan: related to ESRD and frequent hospitalizations Epogen with HD follow H/H (6) Insulin dependent type 2 diabetes mellitus: Code(s): E11.9 - Type 2 diabetes mellitus without complications; Z79.4 - intermediate (current) use of insulin Status: Chronic Assessment and Plan: follow accu-cheks glycemic control per hospitalists Will continue to follow. Subjective Date/time seen: 06/02/23 11:31 Interval history: Follow-up for end stage renal disease on hemodialysis. Tolerated hemodialysis treatment yesterday afternoon without any issues or problems; breathing/respiratory status appears to be doing better; no apparent distress noted at the time of my visit; no other issues/events overnight or earlier this morning; she is asking me about possible discharge today. Exam Narrative: General: elderly female in NAD Heart: normal S1 and S2; no rub Lungs: clear anteriorly; decreased at bases Abdomen: soft, nontender, nondistended, positive bowel sounds Extremities: no cyanosis or clubbing; no edema; s/p left BKA and right AKA Skin: warm and dry Objective Data Vital Signs Vital Signs: Vital Signs Temp Pulse Resp BP Pulse Ox O2 Del Method O2 Flow Rate 06/02/23 11:00 71 06/02/23 08:20 100 Nasal Cannula 2 06/02/23 08:20 67 06/02/23 08:23 112 H 06/02/23 07:28 97.2 F L 113 H 16 142/50 H 100 06/02/23 04:00 72 06/02/23 00:00 64 06/01/23 20:00 68 06/01/23 20:00 100 Nasal Cannula 3 06/01/23 20:40 97 Nasal Cannula 2 06/01/23 22:00 97.2 F L 66 18 103/39 L 100 06/01/23 16:30 100 Nasal Cannula 2 06/01/23 18:08 67 99/38 L 06/01/23 18:00 68 85/40 L 06/01/23 17:45 76 94/49 L 06/01/23 17:30 83 110/52 L 06/01/23 18:15 97.4 F L 68 18 92/40 L 06/01/23 17:15 79 117/46 L 06/01/23 17:00 69 121/63 06/01/23 16:45 67 134/63 06/01/23 16:30 69 120/55 L 06/01/23 16:15 73 123/65 06/01/23 16:00 78 95/48 L 06/01/23 15:45 69 107/43 L 06/01/23 15:30 81 114/46 L 06/01/23 15:15 71 133/63 06/01/23 15:08 72 138/64 06/01/23 15:02 98.0 F 71 18 133/67 06/01/23 15:02 3 06/01/23 14:56 71 16 100 Nasa
[2023-06-02 11:43] LABS: Glucose Point of Care 238 mg/dl (65-105)
[2023-06-02] MEDS: INSULIN ASPART (*BKC) 100 UNITS/ML SUB-Q (12:01)
[2023-06-02 16:42] LABS: Glucose Point of Care 184 mg/dl (65-105)
[2023-06-02 20:02] LABS: Glucose Point of Care 184 mg/dl (65-105)
[2023-06-02] MEDS: INSULIN GLARGINE (LANTUS) 1,000 UNITS/10 ML VIAL 32 UNITS SUB-Q (20:58)
[2023-06-02] MEDS: ATORVASTATIN 40 MG TABLET PO (21:02)
[2023-06-03] VITALS: PULSE 71
[2023-06-03 04:00] VITALS: PULSE 75
[2023-06-03 05:24] VITALS: BP 118/45; PULSE 71; RESP 12; TEMP 36.3; O2SAT 99
[2023-06-03 08:00] VITALS: PULSE 71; RESP 12; O2SAT 99
[2023-06-03 08:17] LABS: Glucose Point of Care 165 mg/dl (65-105)
[2023-06-03] MEDS: SEVELAMER CARBONATE 800 MG TABLET PO ×3 (09:04→18:13)
[2023-06-03] MEDS: GABAPENTIN 400 MG CAPSULE PO ×3 (09:04→18:13)
[2023-06-03] MEDS: CLOPIDOGREL BISULFATE 75 MG TABLET PO (09:05)
[2023-06-03] MEDS: carvediloL 12.5 MG TABLET PO (09:05)
[2023-06-03] MEDS: PANTOPRAZOLE 40 MG TABLET PO (09:05)
[2023-06-03] MEDS: INSULIN ASPART (*BKC) 100 UNITS/ML 8 UNITS SUB-Q ×3 (09:05→18:13)
[2023-06-03] MEDS: LOSARTAN POTASSIUM 100 MG TABLET PO (09:08)
[2023-06-03] MEDS: NIFEdipine 30 MG TAB.ER.24 BY MOUTH (09:08)
[2023-06-03 11:41] LABS: Glucose Point of Care 183 mg/dl (65-105)
--- NOTE | 2023-06-03 13:05 | P.PNNP_ITS ---
Progress Note: A&P Assessment and Plan (1) End stage renal disease: Code(s): N18.6 - End stage renal disease Status: Chronic Assessment and Plan: * HD tomorrow * continue T/T/S dialysis schedule * follow electrolytes, volume status, and clearance * does outpatient dialysis at [facility] under the care of Dr. Clarke (2) Shortness of breath: Code(s): R06.02 - Shortness of breath Status: Acute Assessment and Plan: * likely related to several issues: * mild pulmonary edema * non-compliance with fluid restriction * chest pain * underlying history of COPD * reactive airway disease * admission CXR noted * fluid removal/ultrafiltration as tolerated with dialyiss * follow respiratory status (3) Chest pain: Qualifiers: Chest pain type: unspecified Qualified Code(s): R07.9 - Chest pain, unspecified Code(s): R07.9 - Chest pain, unspecified Status: Acute Assessment and Plan: * no further episodes since admission * noted trend/rising troponin levels with known history of CAD * she ferguson not want any cardiac intervention done * previous cardiac catheterization results noted (02/28/23) * continue medical management (4) Hypertension: Qualifiers: Hypertension type: renovascular hypertension Qualified Code(s): I15.0 - Renovascular hypertension Code(s): I10 - Essential (primary) hypertension Status: Chronic Assessment and Plan: * reasonable control at this time * follow trend of hemodynamics (5) Anemia: Code(s): D64.9 - Anemia, unspecified Status: Chronic Assessment and Plan: * related to ESRD and frequent hospitalizations * Epogen with HD * follow H/H (6) Urinary tract infection: Code(s): N39.0 - Urinary tract infection, site not specified Status: Acute Assessment and Plan: * admission UA suggestive * urine culture with Klebs aerogenes (Enterobacter) * on antibiotics (7) Insulin dependent type 2 diabetes mellitus: Code(s): E11.9 - Type 2 diabetes mellitus without complications; Z79.4 - watermaster (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 Will continue to follow. Subjective Date/time seen: 06/03/23 13:05 Interval history: Follow-up for end stage renal disease on hemodialysis. No new issues or problems voiced at the time of my visit; breathing/respiratory status seems back to baseline if not better; no other acute complaints voiced; no issues/events overnight or earlier this morning; asking me about possible discharge today. Exam Narrative: General: elderly female in NAD Heart: normal S1 and S2; no rub Lungs: clear anteriorly; decreased at bases Abdomen: soft, nontender, nondistended, positive bowel sounds Extremities: no cyanosis or clubbing; no edema; s/p left BKA and right AKA Skin: warm and intact Objective Data Vital Signs Vital Signs: Vital Signs Temp Pulse Resp BP Pulse Ox O2 Del Method O2 Flow Rate 06/03/23 13:00 97.7 F 73 10 L 125/55 L 100 06/03/23 08:00 71 12 99 Nasal Cannula 2 06/03/23 08:00 71 06/03/23 05:24 97.4 F L 71 12 118/45 L
--- NOTE | 2023-06-03 13:05 | PM.PNNEP ---
Progress Note: A&P Assessment and Plan (1) End stage renal disease: Code(s): N18.6 - End stage renal disease Status: Chronic Assessment and Plan: HD tomorrow continue T/T/S dialysis schedule follow electrolytes, volume status, and clearance does outpatient dialysis at [facility] under the care of Dr. Clarke (2) Shortness of breath: Code(s): R06.02 - Shortness of breath Status: Acute Assessment and Plan: likely related to several issues: mild pulmonary edema non-compliance with fluid restriction chest pain underlying history of COPD reactive airway disease admission CXR noted fluid removal/ultrafiltration as tolerated with dialyiss follow respiratory status (3) Chest pain: Qualifiers: Chest pain type: unspecified Qualified Code(s): R07.9 - Chest pain, unspecified Code(s): R07.9 - Chest pain, unspecified Status: Acute Assessment and Plan: no further episodes since admission noted trend/rising troponin levels with known history of CAD she ferguson not want any cardiac intervention done previous cardiac catheterization results noted (02/28/23) continue medical management (4) Hypertension: Qualifiers: Hypertension type: renovascular hypertension Qualified Code(s): I15.0 - Renovascular hypertension Code(s): I10 - Essential (primary) hypertension Status: Chronic Assessment and Plan: reasonable control at this time follow trend of hemodynamics (5) Anemia: Code(s): D64.9 - Anemia, unspecified Status: Chronic Assessment and Plan: related to ESRD and frequent hospitalizations Epogen with HD follow H/H (6) Urinary tract infection: Code(s): N39.0 - Urinary tract infection, site not specified Status: Acute Assessment and Plan: admission UA suggestive urine culture with Klebs aerogenes (Enterobacter) on antibiotics (7) Insulin dependent type 2 diabetes mellitus: Code(s): E11.9 - Type 2 diabetes mellitus without complications; Z79.4 - [facility] (current) use of insulin Status: Chronic Assessment and Plan: follow accu-cheks glycemic control per hospitalists Not opposed to discharge from renal perspective if otherwise medically stable. Will continue to follow. Subjective Date/time seen: 06/03/23 13:05 Interval history: Follow-up for end stage renal disease on hemodialysis. No new issues or problems voiced at the time of my visit; breathing/respiratory status seems back to baseline if not better; no other acute complaints voiced; no issues/events overnight or earlier this morning; asking me about possible discharge today. Exam Narrative: General: elderly female in NAD Heart: normal S1 and S2; no rub Lungs: clear anteriorly; decreased at bases Abdomen: soft, nontender, nondistended, positive bowel sounds Extremities: no cyanosis or clubbing; no edema; s/p left BKA and right AKA Skin: warm and intact Objective Data Vital Signs Vital Signs: Vital Signs Temp Pulse Resp BP Pulse Ox O2 Del Method O2 Flow Rate 06/03/23 13:00 97.7 F 73 10 L 125/55 L 100 06/03/23 08:00 71 12 99 Nasal Cannula 2 06/03/23 08:00 71 06/03/23 05:24 97.4 F L 71 12 118/45 L 99 06/03/23 04:00 75 06/03/23 00:00 71 06/02/23 20:00 79 06/02/23 20:00 96 Nasal Cannula 2 06/02/23 21:09 97.0 F L 61 13 111/53 L 100 Intake/Output Intake/Output: Intake & Output 05/31/23 06/01/23 06/02/23 06/03/23 23:59 23:59 23:59 23:59 Intake Total 0 960 1230 Output Total 2425 Balance -2425 960 1230 Meds/Results Medications: Active Medications Generic Name Dose Route Start Last Admin Trade Name Freq PRN Reason Stop Dose Admin Acetaminophen 650 mg 06/01/23 20:01 Acetaminophen 325 Mg Tablet PO Q6H PRN Mild Pain (1-3) or Fever
--- NOTE | 2023-06-03 13:18 | PM.IMPN ---
Progress Note: A&P Assessment and Plan Plan UA showing 2+ leukocyte esterase, 3-5 RBCs, greater than 100 wbc's and 4+ bacteria. The patient has a history of ESBL. The patient was started on piperacillin and tazobactam as this is sensitive to the ESBL. Blood and urine cultures are pending. Subjective Date/time seen: 06/03/23 13:18 Objective Data Vital Signs Vital Signs: Vital Signs - 24 hr 06/02/23 13:21 06/02/23 16:00 06/02/23 21:09 Temperature 97.9 F 97.0 F L Pulse Rate 80 89 61 Respiratory Rate 16 13 Blood Pressure 124/35 L 111/53 L Pulse Oximetry 98 100 Oxygen Delivery Oxygen Flow Rate 06/02/23 20:00 06/02/23 20:00 06/03/23 00:00 Temperature Pulse Rate 79 71 Respiratory Rate Blood Pressure Pulse Oximetry 96 Oxygen Delivery Nasal Cannula Oxygen Flow Rate 2 06/03/23 04:00 06/03/23 05:24 06/03/23 08:00 Temperature 97.4 F L Pulse Rate 75 71 71 Respiratory Rate 12 Blood Pressure 118/45 L Pulse Oximetry 99 Oxygen Delivery Oxygen Flow Rate 06/03/23 08:00 Temperature Pulse Rate 71 Respiratory Rate 12 Blood Pressure Pulse Oximetry 99 Oxygen Delivery Nasal Cannula Oxygen Flow Rate 2 Intake/Output Intake/Output: Intake & Output 05/31/23 06/01/23 06/02/23 06/03/23 23:59 23:59 23:59 23:59 Intake Total 0 960 990 Output Total 2425 Balance -2425 960 990 Meds/Results Medications: Active Medications Generic Name Dose Route Start Last Admin Trade Name Freq PRN Reason Stop Dose Admin Acetaminophen 650 mg 06/01/23 20:01 Acetaminophen 325 Mg Tablet PO Q6H PRN Mild Pain (1-3) or Fever Atorvastatin Calcium 40 mg 06/01/23 21:00 06/02/23 21:02 Atorvastatin 40 Mg Tablet PO 40 mg HS KEMI Administration Calcium Carbonate 600 mg 06/01/23 20:58 Calcium Carbonate (Tums) 500 Mg (200 Mg Elemental) BY MOUTH DAILY PRN Indigestion Carvedilol 12.5 mg 06/01/23 21:00 06/03/23 09:05 Carvedilol 12.5 Mg Tablet PO 12.5 mg Q12HR KEMI Administration Clopidogrel Bisulfate 75 mg 06/02/23 09:00 06/03/23 09:05 Clopidogrel Bisulfate 75 Mg Tablet PO 75 mg QAM KEMI Administration Dextrose 12.5 gm 06/01/23 20:01 Dextrose 50% 25 Gm/50 Ml Syringe IV PUSH PRN PRN Hypoglycemia Protocol Gabapentin 400 mg 06/02/23 09:00 06/03/23 12:30 Gabapentin 400 Mg Capsule PO 400 mg TID KEMI Administration Glucagon 1 mg 06/01/23 20:01 Glucagon For Inj 1 Mg Vial IM PRN PRN Hypoglycemia Protocol Glucose 15 gm 06/01/23 20:01 Glucose Oral Gel 15 Gm Of Glucse In 37.5 Gm Tube PO PRN PRN Hypoglycemia Protocol Albumin Human 50 mls @ 999 mls/hr 06/01/23 13:40 Albutein IVPB 07/01/23 13:39 Q10M PRN HYPOTENSION Dextrose 1,000 mls @ 100 mls/hr 06/01/23 20:01 Dextrose 5% 1,000 Ml IVPB PRN PRN Hypoglycemia Protocol Piperacillin Sod/Tazobactam Sod 2.25 gm in 50 mls @ 100 mls/hr 06/03/23 13:15 Zosyn 2.25 Gm/Ns 50 Ml IVPB Q8HR KEMI Insulin Aspart 3 - 6 units 06/02/23 08:00 06/03/23 12:01 Insulin Aspart (*Bkc) 100 Units/Ml SUB-Q Not Given [facility] Protocol Insulin Aspart 1 - 3 units 06/01/23 21:00 06/02/23 20:53 Insulin Aspart (*Bkc) 100 Units/Ml SUB-Q Not Given HS [facility] Protocol Insulin Aspart 8 units 06/02/23 08:00 06/03/23 12:31 Insulin Aspart (*Bkc) 100 Units/Ml SUB-Q 8 units TIDWM KEMI Administration Insulin Glargine 32 units 06/02/23 21:00 06/02/23 20:58 Insulin Glargine (Lantus) 1,000 Units/10 Ml Vial SUB-Q 32 units HS [facility] Administration Loratadine 10 mg 06/01/23 20:59 Loratadine 10 Mg Tablet PO DAILY PRN allergies Losartan Potassium 100 mg 06/02/23 09:00 06/03/23 09:08 Losartan Potassium 100 Mg Tablet PO 100 mg [id number] KEMI Administration Nifedipine 30 mg 06/02/23 09:00 06/03/23 09:08 Nifedipine 30 Mg Tab.Er.24
[2023-06-03 14:00] VITALS: BP 125/55; PULSE 73; RESP 10; TEMP 36.5; O2SAT 100
[2023-06-03] MEDS: PIPERACILLIN/TAZ 2.25G/NS 50ML 2.25 GM/50 ML BAG IVPB (14:38)
--- NOTE | 2023-06-03 14:47 | PM.DS ---
DS: Admitting Diagnosis Discharge Date 06/03/23 Admitting Diagnosis abnormal UA DS: Discharge Diagnosis Discharge Diagnosis (1) Abnormal urinalysis: Code(s): R82.90 - Unspecified abnormal findings in urine Status: Acute Assessment and Plan: UA showing 2+ leukocyte esterase, 3-5 RBCs, greater than 100 wbc's and 4+ bacteria. UA culture showed Klebs aerogenes (Enterobacter) Will d/c with ciprofloxacin for 7 days (2) Elevated troponin: Code(s): R79.89 - Other specified abnormal findings of blood chemistry Status: Acute Assessment and Plan: suspect demand ischemia, patient with end-stage renal failure on HD initial troponin 0.366 elevated from baseline EKG showed worsening ST depressions in some leads Patient denies any chest pain at this time; patient/daughter declined transfer to tertiary care and do not wish to pursue intervention at this time (3) Hypertension: Qualifiers: Hypertension type: renovascular hypertension Qualified Code(s): I15.0 - Renovascular hypertension Code(s): I10 - Essential (primary) hypertension Status: Chronic Assessment and Plan: continue Home medication losartan, Nifedipine (4) Chronic anemia: Code(s): D64.9 - Anemia, unspecified Status: Chronic Assessment and Plan: patient receives Epogen with HD stable (5) End-stage renal disease on hemodialysis: Code(s): N18.6 - End stage renal disease; Z99.2 - Dependence on renal dialysis Status: Chronic Assessment and Plan: nephrology consulted Continue HD as scheduled by Nephrology Followed by Dr. Clarke in [place], on Saturday//Saturday schedule. 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 Status: Chronic Assessment and Plan: Continue home regimen (7) Coronary artery disease: Code(s): I25.10 - Atherosclerotic heart disease of [place] coronary artery without angina pectoris Status: Chronic Assessment and Plan: continue, clopidogrel, isosorbide and atorvastatin DS: Summary Hospital Course Hospital Course: Patient is a 72-year-old female smoker with coronary artery disease with history of CABG, peripheral vascular disease status post bilateral lower extremity amputations, insulin-dependent diabetes, end-stage renal disease on hemodialysis, hypertension, chronic respiratory failure on nighttime oxygen, and chronic anemia admitted from home for evaluation of chest pain and shortness of breath. She is well known to the hospitalist service from numerous admissions over the years and she has been in and out of the hospital recently with similar complaints. She was last discharged from this facility on 05/28/2023 after presenting with shortness of breath, hypoxia, and fluid overload. She is on a Saturday, , Saturday dialysis schedule and she has not missed any sessions from her most recent discharge. She regularly uses oxygen at night while sleeping, but not while at awake. Patient reports no overnight events, she denies any chest pain, nausea vomiting fever chills this time. She continues to defer any cardiology evaluation and would like to go home. Medically she is stable and at her baseline. As long as she does not now require daytime oxygen, she would need a home O2 eval prior to d/c. UA indicative of UTI, will send home on ciprofloxacin per culture results. Ambulance to be arranged for her return home later today. Status at Discharge Functional status at discharge: bed bound Overall status at discharge: patient is progressing back to baseline Time Spent with Patient Time attestation: Total time spent providing and/or coordinating discharge services: Exam Narrative: General:??Chronically ill appearing female in the semi-Roblero position in bed. HEENT:??PERRL, EOMI. Sclera an
--- NOTE | 2023-06-03 15:28 | PC.NURSE ---
Family notified of pt discharge.
--- NOTE | 2023-06-03 15:42 | PC.NURSE ---
O2 sats 96% after one hour on room air.
[2023-06-03 17:17] LABS: Glucose Point of Care 178 mg/dl (65-105)
== END 2023-06-03 19:30 | disposition home or self-care (01) | DRG 640 ==
LOC: ANHED 13:47 → ANH3MEDSUR 15:07
PROVIDERS: Physician Assistant; Admitting Provider Student in an Organized Health Care Education/Training Program; Emergency Provider Physician Assistant; PCP Internal Medicine; Visit Provider Nurse Practitioner
DX: E87.79 Other fluid overload (principal); N18.6 End stage renal disease; I12.0 Hypertensive chronic kidney disease with stage 5 chronic kidney disease or end stage renal disease; I24.89 Other forms of acute ischemic heart disease; N39.0 Urinary tract infection, site not specified; J96.11 Chronic respiratory failure with hypoxia; J81.1 Chronic pulmonary edema; Z91.199 Patient's noncompliance with other medical treatment and regimen due to unspecified reason; E11.22 Type 2 diabetes mellitus with diabetic chronic kidney disease; E11.42 Type 2 diabetes mellitus with diabetic polyneuropathy; E11.319 Type 2 diabetes mellitus with unspecified diabetic retinopathy without macular edema; I48.0 Paroxysmal atrial fibrillation; I73.9 Peripheral vascular disease, unspecified; N25.0 Renal osteodystrophy; E78.5 Hyperlipidemia, unspecified; I25.10 Atherosclerotic heart disease of native coronary artery without angina pectoris; J44.9 Chronic obstructive pulmonary disease, unspecified; F17.210 Nicotine dependence, cigarettes, uncomplicated; Z66 Do not resuscitate; F41.8 Other specified anxiety disorders; Z20.822 Contact with and (suspected) exposure to COVID-19; D63.1 Anemia in chronic kidney disease; R82.90 Unspecified abnormal findings in urine; Z99.2 Dependence on renal dialysis; Z86.16 Personal history of COVID-19; Z98.42 Cataract extraction status, left eye; Z98.41 Cataract extraction status, right eye; Z95.1 Presence of aortocoronary bypass graft; Z98.1 Arthrodesis status; Z95.820 Peripheral vascular angioplasty status with implants and grafts; Z89.611 Acquired absence of right leg above knee; Z89.512 Acquired absence of left leg below knee; Z89.022 Acquired absence of left finger(s); Z79.4 Long term (current) use of insulin; B96.89 Other specified bacterial agents as the cause of diseases classified elsewhere; Z99.81 Dependence on supplemental oxygen
CPT/HCPCS: 36415; 36600; 71045; 80048; 80053; 81001; 82805; 82948; 83690; 83735; 83880; 84100; 84484; 85025; 85027; 85610; 85730; 87077; 87086; 87186; 87637; 93005; 94640; 99285; A9270; G0257; J1644; J1815; J2543; J7030; Q5105

== ENCOUNTER 2023-06-05 17:34 | Observation (INO) | payer MEDICARE, OTHER, SELFPAY ==
[2023-06-05] VITALS (13 sets, daily range): BP systolic 98–127; BP diastolic 40–58; PULSE 64–72; RESP 12–27; O2SAT 97–100
--- NOTE | ~2023-06-05 | XR_ITS ---
EXAMINATION: XR chest 2V DATE: 06/05/2023 18:30 INDICATION: Shortness of breath. TECHNIQUE: Frontal and lateral views of the chest were obtained on 3 radiographs. COMPARISON: Chest single view 06/01/2023 FINDINGS: There are airspace opacities in the lower lung zones. There are small pleural effusions. No pneumothorax. Cardiomegaly is noted. Median sternotomy wires and mediastinal surgical clips are seen , likely from prior coronary artery bypass grafting. A right internal jugular central venous catheter is seen with tip in the right atrium. IMPRESSION: 1. Airspace opacities in the lower lung zones with worsening on the right, consistent with atelectasi s versus pneumonia. 2. Small pleural effusions. 3. Cardiomegaly. Reviewed, dictated and finalized at location E. CLERK IMPRESSION: 1. Airspace opacities in the lower lung zones with worsening on the right, cons istent with atelectasis versus pneumonia. 2. Small pleural effusions. 3. Cardiomegaly.
--- NOTE | 2023-06-05 17:41 | ECG_ITS ---
Measurements Intervals [place] Rate: 71 P: 50 NE: 193 QRS: -81 QRSD: 150 T: 112 QT: 437 QTc: 476 Interpretive Statements SINUS RHYTHM LEFT AXIS DEVIATION RIGHT BUNDLE BRANCH BLOCK LEFT ANTERIOR FASCICULAR BLOCK CANNOT RULE OUT SEPTAL INFARCT, AGE INDETERMINATE ST-T WAVE ABNORMALITY IN ANTEROLATERAL LEADS- CONSIDER ISCHEMIA BASELINE ARTIFACT- II, III, AVF ABNORMAL ECG COMPARED TO ECG 06/01/2023 09:27:07 ST-T WAVE ABNORMALITY NOW PRESENT Electronically Signed On 06-05-2023 18:52:53 BINDER STRIPPER MACHINE by Fito Mcintosh D.O.
--- NOTE | 2023-06-05 17:50 | PC.NURSE ---
Pt reports she did not go to dialysis today.
--- NOTE | 2023-06-05 17:53 | ED.SOB ---
HPI - SOB/Dyspnea General Chief Complaint: Shortness of Breath/Dyspnea Stated Complaint: dyspnea Time Seen by Provider: 06/05/23 17:44 History of Present Illness HPI Narrative: Patient is a 72 year old female with history of CAD s/p CABG, PVD s/p BL LE amputations, diabetes ESRD on HD, HTN, Chronic respiratory failure on 2L at night here with shortness of breath. She notes that she was taking a nap and woke up around 330 this afternoon feeling significantly short of breath. EMS was called, they found her to be hypoxic at 89% on arrival and placed her on 4 L nasal cannula. She notes some associated chest discomfort which began around the same time, describes it as a burning sensation which goes up into her throat. She does note that she was recently hospitalized and had very similar symptoms. She is a dialysis patient, dialyzes Saturday, , Saturday, had a full uneventful dialysis run yesterday. She notes that she is currently only on 2 L nasal cannula at night and does not normally wear during the day. She does not believe that her cough is worsened from baseline. She is a smoker, has never been diagnosed with COPD, never been diagnosed with asthma, does not use any inhalers. No nausea or diaphoresis. Related Data Home Medications Medication Instructions Recorded Confirmed insulin degludec 100 unit/mL 32 unit subcut HS 11/03/19 06/01/23 subcutaneous solution (Tresiba U-100 Insulin) cetirizine 10 mg tablet 10 mg PO DAILY PRN allergies 02/06/22 06/01/23 insulin aspart U-100 100 unit/mL 8 unit subcut TIDWMEAL 02/28/22 06/01/23 (3 mL) subcutaneous pen (Novolog FlexPen U-100 Insulin aspart) pantoprazole 40 mg tablet,delayed 40 mg PO DAILY 02/28/22 06/01/23 release calcium carbonate 300 mg (750 mg) 2 tablet PO DAILY PRN Indigestion 01/10/23 06/01/23 chewable tablet (Tums E-X) nifedipine 30 mg tablet,extended See Rx Instructions .Route .COMPLEX 02/20/23 06/01/23 release atorvastatin 40 mg tablet 40 mg PO HS 04/24/23 06/01/23 carvedilol 12.5 mg tablet (Coreg) 12.5 mg PO Q12H 04/24/23 06/01/23 gabapentin 400 mg capsule 400 mg PO TID 04/24/23 06/01/23 losartan 100 mg tablet 100 mg PO .MONWEDFRISUN 04/24/23 06/01/23 nitroglycerin 0.4 mg sublingual 0.4 mg sublingual Q5MIN PRN Chest 04/24/23 06/01/23 tablet Pain Allergies Allergy/AdvReac Type Severity Reaction Status Date / Time No Known Allergies Allergy Verified 05/25/23 02:47 Review of Systems Review of Systems: All systems reviewed & are unremarkable except as noted in HPI and below [facility] Past Medical History Medical History Anxiety with depression Arterial vascular disease Chronic anemia Coronary artery disease COVID Digital arterial occlusive disease End-stage renal disease on hemodialysis Saturday, , Saturday. 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 Hemoglobin A1c was 6.8% in February 2020. Osteomyelitis Paroxysmal atrial fibrillation Peripheral vascular disease Renal osteodystrophy Thrombocytopenia Surgical History Surgical History Amputation of right forefoot Right 4th and 5th ray amputation in 04/2017. Right foot transmetatarsal amputation with partial fasciotomy due to wet gangrene, osteomyelitis, and necrotizing fasciitis in May 2017. 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 History of below-knee amputation of both lower extremities Left xsrrz-ahb-[id number] amputation in 2017. Right godjz-uum-gzvj amputation in 02/2020. History of bilateral cataract extraction History of carpal tunnel release History of four vessel coronary artery bypass graft (04/2019) History of right above knee amputation (05/12/20) History of spinal
[2023-06-05 18:22] LABS: Basophils Percent Auto 0.6 % (0.2-1.2); Eosinophils Absolute Auto 0.2 K/mm3 (0-0.3); Hematocrit 31.2 % (37.0-47.0); Hemoglobin 9.4 g/dL (12.0-15.0); Immature Granulocyte Absolute 0.05 K/mm3 (0.00-0.031); Immature Platelet Fraction Pct 10.2 % (0.9-11.2); Lymphocytes Absolute Auto 1.32 K/mm3 (0.9-3.2); Lymphocytes Percent Auto 25.2 % (18.3-44.2); Mean Corpuscular HGB Conc 30.1 g/dl (32-36); Mean Corpuscular Hemoglobin 31.6 pg (26-34); Mean Corpuscular Volume 105.1 fl (80-100); Mean Platelet Volume 12.9 fl (7.4-10.4); Monocytes Absolute Auto 0.4 K/mm3 (0.1-0.6); Monocytes Percent Auto 7.8 % (2.6-8.5); Neutrophils Absolute Auto 3.2 K/mm3 (1.3-6.7); Neutrophils Percent Auto 61.4 % (45.5-73.1); Platelet Count Result 131 k/mm3 (150-375); Red Blood Count 2.97 M/mm3 (4.2-5.4); White Blood Count 5.2 K/mm3 (4.5-10.0)
[2023-06-05 18:32] LABS: Alanine Aminotransferase 13 U/L (6-35); Albumin Level 3.7 g/dL (3.5-5.1); Alkaline Phosphatase 165 U/L (38-126); Anion Gap 12 mmol/L (8-16); Aspartate Amino Transferase 22 U/L (14-36); Bilirubin,Total 0.5 mg/dL (0.2-1.3); Blood Urea Nitrogen 46 mg/dL (7-17); Calcium 7.8 mg/dL (8.4-10.2); Carbon Dioxide 28 mmol/L (22-30); Chloride 100 mmol/L (98-107); Estimated Glomerular Filt Rate 7; Glucose 255 mg/dL (65-110); Potassium 4.6 mmol/L (3.4-5.0); Sodium 140 mmol/L (137-145)
[2023-06-05 18:50] LABS: NT Pro B Type Natriuretic Pept > 30000 pg/mL (19.9-100); Troponin I 0.599 ng/mL (0.000-0.034)
[2023-06-05 18:58] LABS: Influenza A QL RT-PCR Negative (Negative); Influenza B QL RT-PCR Negative (Negative); RSV RNA, RT-PCR Negative (Negative); SARS-CoV-2 RNA PCR Negative (Negative)
[2023-06-05 19:14] LABS: Anisocytosis 1+ (NORMAL); Large Platelets Present; Macrocytosis 1+ (NORMAL); Ovalocytes 1+ (NORMAL); Platelet Estimate Decreased (Adequate); Stomatocytes 1+ (NORMAL)
[2023-06-05 19:15] LABS: Schistocytes None Seen (NORMAL)
[2023-06-05] MEDS: ASPIRIN 81 MG CHEWABLE TABLET 324 MG PO (19:39)
[2023-06-05 19:49] LABS: Procalcitonin 0.6 ng/mL
[2023-06-05 21:59] LABS: Troponin I 0.655 ng/mL (0.000-0.034)
--- NOTE | 2023-06-05 23:19 | PM.IMHP ---
H&P: HPI History of Present Illness Date/Time: 06/05/23 23:19 Chief Complaint: Patient brought to the ER via EMS from home for worsening shortness of breath Narrative: She is a very unfortunate, chronically ill morbidly obese female with ESRD on hemodialysis, CAD status post CABG, PVD status post bilateral lower extremities amputations, diabetes and hypertension who is chronically at 2 L oxygen via nasal cannula at night at home. She was taking a nap and woke up around 330 this afternoon and started feeling significant shortness of breath. EMS was called and they found the patient to be hypoxic with O2 sats at 89%. Swe was placed on 4 L via oxygen cannula and her O2 sats improved. She is brought to the ER for evaluation. She also complained of some chest discomfort which began around the same time describing it as a burning sensation going into her throat, intensity 2-3/10 without any palpitations or sweating. She has had multiple hospitalizations for similar symptoms. Her BNP is chronically elevated and was more than 30,000. cardiac enzymes were done which are minimally elevated without any spike. She has been placed under observation status for tele monitoring, medical management as well as Cardiology and Nephrology evaluations. Review of Systems Review of Systems: 14 systems were reviewed with pertinent positives and negatives per HPI. Except as documented in the HPI/progress notes, all other systems were reviewed and are negative. All systems reviewed & are unremarkable except as noted in HPI and below [facility] Past Medical History Medical History Anxiety with depression Arterial vascular disease Chronic anemia Coronary artery disease COVID Digital arterial occlusive disease End-stage renal disease on hemodialysis Saturday, , Saturday. 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 Hemoglobin A1c was 6.8% in February 2020. Osteomyelitis Paroxysmal atrial fibrillation Peripheral vascular disease Renal osteodystrophy Thrombocytopenia Surgical History Surgical History Amputation of right forefoot Right 4th and 5th ray amputation in 04/2017. Right foot transmetatarsal amputation with partial fasciotomy due to wet gangrene, osteomyelitis, and necrotizing fasciitis in May 2017. 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 History of below-knee amputation of both lower extremities Left ogajr-eek-lmiw amputation in 2017. Right twsvm-ssn-gmjg amputation in 02/2020. 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 History of vascular surgery Right lower extremity stents in March 2017. Left lower extremity stent in 2014. Family History Family History Mother Diabetes mellitus Father Lung cancer Acute myocardial infarction Sibling Diabetes mellitus Social History Social History Social History: Smokes 3-4 cig/day Surrogate medical decision maker: Kierra Blantno (sister) or Cyndi Blanton (daughter). Code Status: DNR/DNI. Smoking packs per day: 0.25 Smoking cigarettes per day: 5.0 Years smoked: 61 Smoking pack-years: 15.25 Smoking status: Current every day smoker Tobacco type: cigarettes Second hand tobacco smoke exposure: No Alcohol intake: never Drinks per week: 0 Alcohol use details: Previous social drinker. Substance use: never Substance use type
[2023-06-06] VITALS (34 sets, daily range): BP systolic 91–152; BP diastolic 37–99; PULSE 61–115; RESP 12–20; TEMP 36.4–37.9; O2SAT 94–100
--- NOTE | 2023-06-06 00:30 | ADMGEN ---
This patient, Tawana Prado, was admitted to 2 Medical Room 246-. Patient/family oriented to hospital policies and general routines including ID bracelet, bed and alarms, visiting hours, pain management, procedures, bathroom and other care routines, personal items, smoking policy, room service/diet, and visiting hours. Information on how to activate the Rapid Response Team has been discussed. Patient/Family are encouraged to report perceived risks to care and to ask questions if they do not understand what they are told or what they should do.
[2023-06-06 00:33] LABS: Glucose Point of Care 128 mg/dl (65-105)
[2023-06-06 06:26] LABS: Basophils Percent Auto 0.6 % (0.2-1.2); Eosinophils Absolute Auto 0.2 K/mm3 (0-0.3); Eosinophils Percent Auto 4.5 % (0-4.4); Hematocrit 28.1 % (37.0-47.0); Hemoglobin 8.3 g/dL (12.0-15.0); Immature Granulocyte Absolute 0.05 K/mm3 (0.00-0.031); Lymphocytes Absolute Auto 1.22 K/mm3 (0.9-3.2); Lymphocytes Percent Auto 25.1 % (18.3-44.2); Mean Corpuscular HGB Conc 29.5 g/dl (32-36); Mean Corpuscular Hemoglobin 31.2 pg (26-34); Mean Corpuscular Volume 105.6 fl (80-100); Mean Platelet Volume 12.7 fl (7.4-10.4); Monocytes Absolute Auto 0.4 K/mm3 (0.1-0.6); Monocytes Percent Auto 7.4 % (2.6-8.5); Neutrophils Percent Auto 61.4 % (45.5-73.1); Platelet Count Result 137 k/mm3 (150-375); Red Blood Count 2.66 M/mm3 (4.2-5.4); White Blood Count 4.9 K/mm3 (4.5-10.0)
[2023-06-06 06:34] LABS: Alanine Aminotransferase 10 U/L (6-35); Albumin Level 3.1 g/dL (3.5-5.1); Alkaline Phosphatase 96 U/L (38-126); Anion Gap 10 mmol/L (8-16); Aspartate Amino Transferase 16 U/L (14-36); Bilirubin,Total 0.4 mg/dL (0.2-1.3); Blood Urea Nitrogen 48 mg/dL (7-17); Calcium 7.6 mg/dL (8.4-10.2); Carbon Dioxide 27 mmol/L (22-30); Chloride 102 mmol/L (98-107); Estimated Glomerular Filt Rate 6; Glucose 143 mg/dL (65-110); Potassium 4.8 mmol/L (3.4-5.0); Sodium 139 mmol/L (137-145)
[2023-06-06 07:12] LABS: Hypochromasia 1+ (NORMAL); Platelet Estimate Decreased (Adequate)
[2023-06-06 07:13] LABS: Macrocytosis 1+ (NORMAL); Ovalocytes 1+ (NORMAL); Schistocytes None Seen (NORMAL)
[2023-06-06 07:22] LABS: Magnesium 2.2 mg/dL (1.6-2.3); Phosphorus 6.7 mg/dL (2.5-4.5)
[2023-06-06 07:38] LABS: Troponin I 0.591 ng/mL (0.000-0.034)
[2023-06-06 08:07] LABS: Hepatitis B Surface Antigen Negative (Negative)
[2023-06-06 08:30] LABS: Glucose Point of Care 141 mg/dl (65-105)
[2023-06-06] MEDS: PANTOPRAZOLE 40 MG TABLET PO (08:42)
--- NOTE | 2023-06-06 08:45 | PC.NURSE ---
To Dialysis via bed. 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
[2023-06-06 10:29] LABS: Hepatitis B Surface Anti Res Indeterminate
--- NOTE | 2023-06-06 10:52 | PM.IMPN ---
Progress Note: A&P Assessment and Plan (1) Chest pain: Qualifiers: Chest pain type: unspecified Qualified Code(s): R07.9 - Chest pain, unspecified Code(s): R07.9 - Chest pain, unspecified Status: Acute (2) Elevated troponin: Code(s): R79.89 - Other specified abnormal findings of blood chemistry Status: Acute (3) ESRD (end stage renal disease): Code(s): N18.6 - End stage renal disease Status: Acute (4) Hospital acquired PNA: Code(s): J18.9 - Pneumonia, unspecified organism; Y95 - Nosocomial condition Status: Acute Plan 72F w/ PMH CAD s/p CABG, PVD s/p b/l LE amputations, IDDM, ESRD on HD TTHSA, HTN, chronic respiratory failure, chronic anemia, anxiety with depression, HLD, presents with acute onset of SOB accompanied with burning chest pain. Admitted on 06/05/23 # acute on chronic hypoxic respiratory failure - resolved. FLU COVID and RSV pcr negative. - cont tele monitoring # elevated troponin/chest pain - chest pain atypical.now resolved. troponin chronically elevated and have since downtrended on this admission. cardiology consulted, will appreciate their recs. received asa in ER # [facility] - recently admitted for UTI and was sent home on ciprofloxacin - pneumonia as suggested on CXR. on 06/06/23 start cefepime, vancomycin. MRSA nares PCR pending. # ESRD on dialysis TTHSAT - receiving dialysis 06/06/23. FEN: saline lock IV GI prophylaxis: not indicated DVT prophylaxis: lovenox 30mg Lines: pIV Code Status: DNR Dispo: stable. More than 35 minutes spent on chart review, patient interaction and assessment and plan. Subjective Date/time seen: 06/06/23 10:52 Interval history: naoe. patient denies shortness of breath or chest pain. she doesn't converse actively. denies complaints. Review of Systems Review of Systems: All systems reviewed & are unremarkable except as noted in HPI and below (subjective) Exam Const: General: comfortable and no acute distress Other: currently in dialysis suite Eyes: Pupils: Equal, round and reactive pupils present Neck: Neck: supple Resp: Effort & Inspection: normal respiratory effort Auscultation: clear to auscultation bilaterally Cardio: Rate: regular rate Rhythm: regular rhythm Heart sounds: no gallops, no murmurs and no rubs GI: GI Palp: Yes Soft to palpation and No Tenderness to palpation present (GI) Objective Data Vital Signs Vital Signs: Vital Signs - 24 hr 06/05/23 17:37 06/05/23 18:17 06/05/23 17:43 Temperature Pulse Rate 72 72 Respiratory Rate 20 15 Blood Pressure 127/55 L 127/55 L Pulse Oximetry 98 98 97 Oxygen Delivery Nasal Cannula Nasal Cannula Oxygen Flow Rate 4 4 Fraction of Inspired Oxygen 06/05/23 18:15 06/05/23 18:22 06/05/23 18:31 Temperature Pulse Rate 69 67 Respiratory Rate 19 Blood Pressure 110/47 L Pulse Oximetry 100 99 Oxygen Delivery Oxygen Flow Rate Fraction of Inspired Oxygen 06/05/23 18:45 06/05/23 19:00 06/05/23 19:26 Temperature Pulse Rate 67 67 68 Respiratory Rate 13 27 H 20 Blood Pressure 98/58 L Pulse Oximetry 100 100 Oxygen Delivery Oxygen Flow Rate Fraction of Inspired Oxygen 06/05/23 19:29 06/05/23 21:22 06/05/23 22:31 Temperature Pulse Rate 66 64 Respiratory Rate 13 12 Blood Pressure 102/58 L Pulse Oximetry 98 100 100 Oxygen Delivery Nasal Cannula Oxygen Flow Rate 3 Fraction of Inspired Oxygen 06/05/23 23:01 06/06/23 00:00 06/06/23 00:15 Temperature Pulse Rate 66 61 Respiratory Rate 13 12 Blood Pressure 113/40 L 107/37 L Pulse Oximetry 100 100 96 Oxygen Delivery Nasal Cannula Oxygen Flow Rate 2 Fraction of Inspired Oxygen 06/06/23 00:46 06/06/23 04:03 06/06/23 06:22 Temperature 97.6 F Pulse Rate 65 65 66 Respiratory Rate 16 Blood Pressure 115/43 L Pulse Oximetry 94 Oxygen Delivery Oxygen Flow Rate Fraction of Inspired Ox
[2023-06-06] MEDS: EPOETIN ALFA-EPBX 10,000 UNITS/ML VIAL 10000 UNITS IV PUSH (11:11)
--- NOTE | 2023-06-06 12:01 | P.CONNP_ITS ---
Assessment and Plan Assessment and plan (1) End stage renal disease: Status: Chronic Assessment and Plan: * HD today * continue T/T/S dialysis schedule while hospitalized * follow electrolytes, volume status, and clearance (2) Shortness of breath: Code(s): R06.02 - Shortness of breath Status: Acute Assessment and Plan: * likely related to several issues: * mild pulmonary edema * suspected pneumonia * chest pain * underlying history of COPD * reactive airway disease * admission CXR noted * fluid removal/ultrafiltration as tolerated with dialysis * antibiotics * supplemental oxygen * follow respiratory status (3) Chest pain: Qualifiers: Chest pain type: unspecified Qualified Code(s): R07.9 - Chest pain, unspecified Code(s): R07.9 - Chest pain, unspecified Status: Acute Assessment and Plan: * no further symptoms at this time * appears to have resolved with improvement in shortness of breath * Cardiology consulted although patient not interested in any interventions/procedures * recent cardiac catheterization results reviewed (from 02/28/23) (4) Hospital acquired PNA: Code(s): J18.9 - Pneumonia, unspecified organism; Y95 - Nosocomial condition Status: Acute Assessment and Plan: * suspected based on of admission CXR * follow culture data * on antibiotics (5) Hypertension: Status: Chronic Assessment and Plan: * reasonable control * resume home medications * follow trend of hemodynamics post-HD (6) Anemia: Status: Chronic Assessment and Plan: * due to ESRD * Epogen with HD * follow trend of H/H (7) Insulin dependent type 2 diabetes mellitus: Status: Chronic Assessment and Plan: * follow accuchecks * glycemic control per hospitalists I will continue follow the patient with you while she remains hospitalized make further recommendations during her hospital course. Thank you for allowing me to participate in the care of this patient. History of Present Illness Reason for Consult Consult date: 06/06/23 Reason for consult: end stage renal disease Chief Complaint Chief complaint: Chest Pain, Heart Failure History of Present Illness Narrative: The patient is a 72-year-old female with extensive past medical history as outlined below who presented to [facility] Emergency Room for further evaluation of shortness of breath. Apparently, on the day of admission, the patient woke up around 3:30 p.m. and started to feel significantly short of breath. Her shortness of breath continued to progressively get worse and she subsequently called 911 for further assistance. On EMS arrival, apparently she was hypoxic with oxygen saturations of 89% on room air. Supplemental oxygen was applied and she was subsequently transported to the emergency room for further assessment. By the time of her arrival to the emergency room, she was on a total of 4 L of oxygen with significant improvement in her oxygen saturations. Along with the shortness or breath, she also reported some chest discomfort which occurred around the same time as her shortness of breath. She described the chest discomfort as a burning sensation and over seemed to be going down into her throat rated 2 to 3/10 in terms of severity. No associated palpitations diaphoresis nausea, or vomiting. Her symptoms are somewhat suggestive of her previous hospitalizations and ER visits for review regular. Routine blood test demonstrated primer powder blender wet
--- NOTE | 2023-06-06 12:01 | PM.CNNEP ---
Assessment and Plan Assessment and plan (1) End stage renal disease: Status: Chronic Assessment and Plan: HD today continue T/T/S dialysis schedule while hospitalized follow electrolytes, volume status, and clearance (2) Shortness of breath: Code(s): R06.02 - Shortness of breath Status: Acute Assessment and Plan: likely related to several issues: mild pulmonary edema suspected pneumonia chest pain underlying history of COPD reactive airway disease admission CXR noted fluid removal/ultrafiltration as tolerated with dialysis antibiotics supplemental oxygen follow respiratory status (3) Chest pain: Qualifiers: Chest pain type: unspecified Qualified Code(s): R07.9 - Chest pain, unspecified Code(s): R07.9 - Chest pain, unspecified Status: Acute Assessment and Plan: no further symptoms at this time appears to have resolved with improvement in shortness of breath Cardiology consulted although patient not interested in any interventions/procedures recent cardiac catheterization results reviewed (from 02/28/23) (4) Hospital acquired PNA: Code(s): J18.9 - Pneumonia, unspecified organism; Y95 - Nosocomial condition Status: Acute Assessment and Plan: suspected based on of admission CXR follow culture data on antibiotics (5) Hypertension: Status: Chronic Assessment and Plan: reasonable control resume home medications follow trend of hemodynamics post-HD (6) Anemia: Status: Chronic Assessment and Plan: due to ESRD Epogen with HD follow trend of H/H (7) Insulin dependent type 2 diabetes mellitus: Status: Chronic Assessment and Plan: follow accuchecks glycemic control per hospitalists I will continue follow the patient with you while she remains hospitalized make further recommendations during her hospital course. Thank you for allowing me to participate in the care of this patient. History of Present Illness Reason for Consult Consult date: 06/06/23 Reason for consult: end stage renal disease Chief Complaint Chief complaint: Chest Pain, Heart Failure History of Present Illness Narrative: The patient is a 72-year-old female with extensive past medical history as outlined below who presented to [facility] Emergency Room for further evaluation of shortness of breath. Apparently, on the day of admission, the patient woke up around 3:30 p.m. and started to feel significantly short of breath. Her shortness of breath continued to progressively get worse and she subsequently called 911 for further assistance. On EMS arrival, apparently she was hypoxic with oxygen saturations of 89% on room air. Supplemental oxygen was applied and she was subsequently transported to the emergency room for further assessment. By the time of her arrival to the emergency room, she was on a total of 4 L of oxygen with significant improvement in her oxygen saturations. Along with the shortness or breath, she also reported some chest discomfort which occurred around the same time as her shortness of breath. She described the chest discomfort as a burning sensation and over seemed to be going down into her throat rated 2 to 3/10 in terms of severity. No associated palpitations diaphoresis nausea, or vomiting. Her symptoms are somewhat suggestive of her previous hospitalizations and ER visits for review regular. Routine blood test demonstrated chronically elevated ammonium me and cardiac enzymes that were mildly elevated and consistent with her previous readings. To her CBC was notable for anemia of chronic kidney disease and her chemistry was consistent with her known history of end-stage renal disease. Her chest x-ray showed a possible pneumonia on top of some mild pulmonary vascular congestion. After appropriate cultures were obtained, she was started on IV antibiotic t
--- NOTE | 2023-06-06 13:00 | PC.NURSE ---
Returned from dialysis via bed.
[2023-06-06] MEDS: CEFEPIME 1 GM/NS 50 ML 1 GM/50 ML BAG IVPB (13:11)
[2023-06-06] MEDS: CIPROFLOXACIN 250 MG TABLET PO (13:19)
[2023-06-06] MEDS: GABAPENTIN 400 MG CAPSULE PO ×2 (13:19→16:42)
[2023-06-06] MEDS: CLOPIDOGREL BISULFATE 75 MG TABLET PO (13:20)
[2023-06-06] MEDS: ENOXAPARIN 40 MG/0.4 ML SYRINGE SUB-Q (13:22)
[2023-06-06] MEDS: SEVELAMER CARBONATE 800 MG TABLET PO ×2 (13:23→16:42)
--- NOTE | 2023-06-06 13:27 | PM.CNCAR ---
Assessment and Plan Assessment and plan (1) Hospital acquired PNA: Code(s): J18.9 - Pneumonia, unspecified organism; Y95 - Nosocomial condition Status: Acute Assessment and Plan: Treatment as per primary team. (2) Elevated troponin: Code(s): R79.89 - Other specified abnormal findings of blood chemistry Status: Acute Assessment and Plan: Mildly elevated but flat. EKGs are unchanged. Most likely due to demand ischemia. (3) Coronary artery disease: Code(s): I25.10 - Atherosclerotic heart disease of [place] coronary artery without angina pectoris Status: Chronic Assessment and Plan: Has severe [place] multivessel coronary disease s/p CABG with bypass graft disease. She does not want any intervention done and has chosen to be DNR. Continue Plavix, statin, Coreg. Was on Imdur but it somehow got dropped off her medication list last admission. Can increase Imdur to 60mg to see if this helps with her symptoms. (4) Atrial fibrillation: Qualifiers: Atrial fibrillation type: paroxysmal Qualified Code(s): I48.0 - Paroxysmal atrial fibrillation Code(s): I48.91 - Unspecified atrial fibrillation Status: Acute Assessment and Plan: Continue Coreg. Is supposed to be on Eliquis, however it got dropped off her medication list for unknown reason last admission. Resume Eliquis at 5mg BID. Plan Recommendations and plan discussed with Hospitalist. History of Present Illness History of Present Illness Consult date/time: 06/06/23 13:27 Requesting physician: Tiffany Chan MD Consult reason: Other (Elevated troponin, chest pain) Reason For Visit: Chest Pain, Heart Failure Narrative: We are consulted for elevated troponin, chest pain. This is a 72 year old female who is well known to us. She has known severe CAD and PAD, along with ESRD. She is an established patient of [facility]. Has recurrent admissions to here. She was recently discharged from [facility] on 06/03 for chest pain, shortness of breath. Treated for a UTI. She presents again for similar symptoms. Reports she had an episode of shortness of breath yesterday and felt pain in her upper chest/throat area. She was taking a nap and woke up around 3:30 PM with shortness of breath. EMS was called and found her to be hypoxic at 89% and placed her on 4L of oxygen. Troponins are mildly elevated, for which we are consulted. Review of Systems Review of Systems: All systems reviewed & are unremarkable except as noted in HPI and below (HPI) [facility] Past Medical History Medical History Anxiety with depression Arterial vascular disease Chronic anemia Coronary artery disease COVID Digital arterial occlusive disease End-stage renal disease on hemodialysis Saturday, , Saturday. 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 Hemoglobin A1c was 6.8% in February 2020. Osteomyelitis Paroxysmal atrial fibrillation Peripheral vascular disease Renal osteodystrophy Thrombocytopenia Surgical History Surgical History Amputation of right forefoot Right 4th and 5th ray amputation in 04/2017. Right foot transmetatarsal amputation with partial fasciotomy due to wet gangrene, osteomyelitis, and necrotizing fasciitis in May 2017. 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 History of below-knee amputation of both lower extremities Left clrtx-uyj-alip amputation in 2017. Right hacjy-[id number]-[id number] amputation in 02/2020. History of bilateral cataract extraction History of carpal tunnel release History of four vessel coronary artery bypass graft (04/2019) History of right above knee amputation (05/12/20) History o
[2023-06-06 13:29] LABS: Glucose Point of Care 89 mg/dl (65-105)
[2023-06-06] MEDS: VANCOMYCIN 1,500 MG/NS 500 ML 1,500 MG/500 ML BAG 250 MG IVPB (13:39)
[2023-06-06 15:21] LABS: MRSA (PCR) NOT DETECTED (NOT DETECTE)
[2023-06-06 16:39] LABS: Glucose Point of Care 157 mg/dl (65-105)
[2023-06-06] MEDS: carvediloL 12.5 MG TABLET PO (20:14)
[2023-06-06] MEDS: ATORVASTATIN 40 MG TABLET PO (20:14)
[2023-06-06] MEDS: APIXABAN 5 MG TABLET PO (20:14)
[2023-06-06] MEDS: INSULIN GLARGINE (*BKC) 100 UNITS/ML 32 UNITS SUB-Q (20:15)
[2023-06-06] MEDS: LORATADINE 10 MG TABLET PO (20:20)
[2023-06-06 20:53] LABS: Glucose Point of Care 295 mg/dl (65-105)
[2023-06-07] VITALS (10 sets, daily range): BP systolic 136–144; BP diastolic 50–54; PULSE 64–78; RESP 14–18; TEMP 36.8; O2SAT 95–100
[2023-06-07 05:18] LABS: Basophils Percent Auto 0.7 % (0.2-1.2); Eosinophils Absolute Auto 0.2 K/mm3 (0-0.3); Eosinophils Percent Auto 4.8 % (0-4.4); Hematocrit 28.2 % (37.0-47.0); Hemoglobin 8.4 g/dL (12.0-15.0); Immature Granulocyte Absolute 0.06 K/mm3 (0.00-0.031); Immature Granulocyte Percent A 1.3 % (0-0.5); Lymphocytes Absolute Auto 1.34 K/mm3 (0.9-3.2); Lymphocytes Percent Auto 29.5 % (18.3-44.2); Mean Corpuscular HGB Conc 29.8 g/dl (32-36); Mean Corpuscular Hemoglobin 31.5 pg (26-34); Mean Corpuscular Volume 105.6 fl (80-100); Mean Platelet Volume 12.8 fl (7.4-10.4); Monocytes Absolute Auto 0.5 K/mm3 (0.1-0.6); Monocytes Percent Auto 11.2 % (2.6-8.5); Neutrophils Absolute Auto 2.4 K/mm3 (1.3-6.7); Neutrophils Percent Auto 52.5 % (45.5-73.1); Platelet Count Result 137 k/mm3 (150-375); Red Blood Count 2.67 M/mm3 (4.2-5.4); Red Cell Distribution Width 14.6 % (11.5-14.5); White Blood Count 4.5 K/mm3 (4.5-10.0)
[2023-06-07 05:27] LABS: Anion Gap 7 mmol/L (8-16); Blood Urea Nitrogen 22 mg/dL (7-17); Calcium 7.7 mg/dL (8.4-10.2); Carbon Dioxide 32 mmol/L (22-30); Chloride 98 mmol/L (98-107); Estimated Glomerular Filt Rate 11; Glucose 161 mg/dL (65-110); Magnesium 2.1 mg/dL (1.6-2.3); Sodium 137 mmol/L (137-145)
[2023-06-07 08:56] LABS: Glucose Point of Care 130 mg/dl (65-105)
[2023-06-07] MEDS: ISOSORBIDE MONONITRATE 60 MG TAB.ER.24H PO (09:23)
[2023-06-07] MEDS: carvediloL 12.5 MG TABLET PO (09:23)
[2023-06-07] MEDS: SEVELAMER CARBONATE 800 MG TABLET PO (09:24)
[2023-06-07] MEDS: PANTOPRAZOLE 40 MG TABLET PO (09:24)
[2023-06-07] MEDS: CLOPIDOGREL BISULFATE 75 MG TABLET PO (09:24)
[2023-06-07] MEDS: APIXABAN 5 MG TABLET PO (09:24)
[2023-06-07] MEDS: GABAPENTIN 400 MG CAPSULE PO (09:24)
[2023-06-07] MEDS: NIFEdipine 30 MG TAB.ER.24 BY MOUTH (09:27)
[2023-06-07] MEDS: LOSARTAN POTASSIUM 100 MG TABLET PO (09:27)
[2023-06-07] MEDS: INSULIN ASPART (*BKC) 100 UNITS/ML 8 UNITS SUB-Q (09:31)
--- NOTE | 2023-06-07 11:13 | PM.DS ---
DS: Admitting Diagnosis Discharge Date 06/07/23 Admitting Diagnosis shortness of breath DS: Discharge Diagnosis Discharge Diagnosis (1) Hospital acquired PNA: Code(s): J18.9 - Pneumonia, unspecified organism; Y95 - Nosocomial condition Status: Acute (2) Acute respiratory failure with hypoxia: Code(s): J96.01 - Acute respiratory failure with hypoxia Status: Acute (3) Elevated troponin: Code(s): R77.8 - Other specified abnormalities of plasma proteins Status: Acute DS: Summary Hospital Course Hospital Course: 72F w/ PMH CAD s/p CABG, PVD s/p b/l LE amputations, IDDM, ESRD on HD TTHSA, HTN, chronic respiratory failure, chronic anemia, anxiety with depression, HLD, presents with acute onset of SOB accompanied with burning chest pain. The pt troponin elevation downtrended, her chest pain resolved, and was described in an atypical fashion. Cardiology was consulted. The patient declined any further intervention and decided to be DNR. Her acute hypoxic respiratory failure resolved, as she was treated for HCAP with cefepime and vancomycin. On 06/07/23 she is on RA and dc'ed in stable condition back to home with another 5 days of Augmentin. Her imdur and apixaban were restarted, these fell off during the recent admissions. she was ok with taking these as she had taken them before, in spite of already being on plavix. More than 30 minutes spent on discharge planning and documentation. Time Spent with Patient Time attestation: Total time spent providing and/or coordinating discharge services: Exam Const: General: cooperative and no acute distress Resp: Effort & Inspection: normal respiratory effort Auscultation: clear to auscultation bilaterally Cardio: Rate: regular rate Rhythm: regular rhythm Heart sounds: S1 normal heart sound present and S2 normal heart sound present GI: GI Palp: No abdominal tenderness Auscultation: normal bowel sounds DS: Data Data Completed and Pending Labs on day of discharge: Labs from last 24 hours 06/07/23 06/07/23 06/06/23 08:50 04:35 20:49 WBC 4.5 RBC 2.67 L Hgb 8.4 L Hct 28.2 L MCV 105.6 H MCH 31.5 MCHC 29.8 L RDW 14.6 H Plt Count 137 L MPV 12.8 H Immature Gran % (Auto) 1.3 H Neut % (Auto) 52.5 Lymph % (Auto) 29.5 [place] % (Auto) 11.2 H Eos % (Auto) 4.8 H Baso % (Auto) 0.7 Lymph # (Auto) 1.34 [place] # (Auto) 0.5 Eos # (Auto) 0.2 Baso # (Auto) 0.0 Abs Immat Gran (auto) 0.06 H Absolute Neuts (auto) 2.4 Absolute Nucleated RBC 0.0 Nucleated RBC % 0.0 Sodium 137 Potassium 4.0 Chloride 98 Carbon Dioxide 32 H Anion Gap 7 L BUN 22 H D Creatinine 3.90 H Estim Creat Clear Calc Not Reportable Estimated GFR 11 L Glucose 161 H POC Capillary Glucose 130 H 295 H Calcium 7.7 L Magnesium 2.1 Nasal MRSA (PCR) 06/06/23 06/06/23 06/06/23 16:36 14:05 13:24 WBC RBC Hgb Hct MCV MCH MCHC RDW Plt Count MPV Immature Gran % (Auto) Neut % (Auto) Lymph % (Auto) [place] % (Auto) Eos % (Auto) Baso % (Auto) Lymph # (Auto) [place] # (Auto) Eos # (Auto) Baso # (Auto) Abs Immat Gran (auto) Absolute Neuts (auto) Absolute Nucleated RBC Nucleated RBC % Sodium Potassium Chloride Carbon Dioxide Anion Gap BUN Creatinine Estim Creat Clear Calc Estimated GFR Glucose POC Capillary Glucose 157 H 89 Calcium Magnesium Nasal MRSA (PCR) Not detected Discharge Plan Discharge Attending physician on discharge: Felicitas Lawrence Consulting providers: Brittnee Mcclellan; Elio Pereira Discharging Clinician: Felicitas Lawrence Patient Disposition: Home, Self-Care Activity: may shower Diet: diabetic and renal Stand Alone Forms: General Discharge Information Follow-up/Referrals: Maximiliano,MD Rut [Primary
[2023-06-07 12:20] LABS: Glucose Point of Care 144 mg/dl (65-105)
--- NOTE | 2023-06-07 12:34 | PM.PNCARD ---
Progress Note: A&P Assessment and Plan (1) Hospital acquired PNA: Code(s): J18.9 - Pneumonia, unspecified organism; Y95 - Nosocomial condition Status: Acute Assessment and Plan: Treatment as per primary team. (2) Elevated troponin: Code(s): R79.89 - Other specified abnormal findings of blood chemistry Status: Acute Assessment and Plan: Mildly elevated but flat. EKGs are unchanged. Most likely due to demand ischemia. (3) Coronary artery disease: Code(s): I25.10 - Atherosclerotic heart disease of [place] coronary artery without angina pectoris Status: Chronic Assessment and Plan: Has severe [place] multivessel coronary disease s/p CABG with bypass graft disease. She does not want any intervention done and has chosen to be DNR. Continue Plavix, statin, Coreg. continue higher dose Imdur 60 mg daily. She feels better today (4) Atrial fibrillation: Qualifiers: Atrial fibrillation type: paroxysmal Qualified Code(s): I48.0 - Paroxysmal atrial fibrillation Code(s): I48.91 - Unspecified atrial fibrillation Status: Acute Assessment and Plan: Continue Coreg. continue Eliquis. Hemoglobin 8.4. Will need to continue to closely monitor Plan Recommendations and plan discussed with Hospitalist. Subjective Date/time seen: 06/07/23 12:34 Interval history: 72-year-old with CAD, heart failure admitted for chest pain shortness of breath Date of service 06/07/2023: Feels better today. No chest pain. No shortness breath. Patient without complaint Review of Systems Constitutional: Comments: no fever Cardiovascular: Comments: no chest pain Respiratory: Comments: no shortness Exam Const: General: no acute distress HENMT: Mouth: Yes moist mucous membranes Eyes: General: appearance normal, both eyes and all related structures Sclera: sclerae normal Resp: Effort & Inspection: normal respiratory effort Auscultation: diminished lung sounds Cardio: Rhythm: abnormal rhythm irregularly irregular Neuro: Speech: normal speech Extrem: Other: Bilateral AKA Psych: Mental Status: mental status grossly normal Affect: normal affect Objective Data Vital Signs Vital Signs: Vital Signs - 24 hr 06/06/23 12:45 06/06/23 12:45 06/06/23 13:17 Temperature 36.7 C 36.7 C Pulse Rate 99 64 62 Respiratory Rate 16 20 Blood Pressure 120/46 L 148/70 H 105/57 L Pulse Oximetry 95 Oxygen Delivery Oxygen Flow Rate 06/06/23 13:00 06/06/23 16:00 06/06/23 16:00 Temperature 36.8 C Pulse Rate 69 105 H 64 Respiratory Rate 18 Blood Pressure 107/68 106/52 L Pulse Oximetry 96 Oxygen Delivery Oxygen Flow Rate 06/06/23 20:14 06/06/23 20:00 06/06/23 20:15 Temperature 36.4 C Pulse Rate 77 78 Respiratory Rate 18 Blood Pressure 117/42 L Pulse Oximetry 100 100 Oxygen Delivery Nasal Cannula Oxygen Flow Rate 2 06/06/23 20:03 06/06/23 23:54 06/07/23 00:01 Temperature 36.5 C Pulse Rate 79 69 78 Respiratory Rate 18 Blood Pressure 117/44 L Pulse Oximetry 100 Oxygen Delivery Oxygen Flow Rate 06/07/23 03:34 06/07/23 04:03 06/07/23 08:00 Temperature 36.8 C 36.8 C Pulse Rate 66 64 68 Respiratory Rate 17 18 Blood Pressure 136/54 L 144/50 H Pulse Oximetry 100 100 Oxygen Delivery Oxygen Flow Rate 06/07/23 09:23 06/07/23 11:33 06/07/23 09:30 Temperature Pulse Rate 69 Respiratory Rate Blood Pressure Pulse Oximetry 95 100 Oxygen Delivery Nasal Cannula Oxygen Flow Rate 2 06/07/23 11:00 Temperature Pulse Rate Respiratory Rate Blood Pressure Pulse Oximetry 95 Oxygen Delivery Room Air Oxygen Flow Rate Intake/Output Intake/Output: Intake & Output 06/04/23 06/05/23 06/06/23 06/07/23 23:59 23:59 23:59 23:59 Intake Total 1140 430 Output Total 1359 Balance -219 430 Meds/Results Medications:
== END 2023-06-07 13:35 | disposition home or self-care (01) ==
LOC: ANHED 22:50 → ANH2MED 06-06 00:06
PROVIDERS: Internal Medicine Nephrology; Admitting Provider Family Medicine; Emergency Provider Student in an Organized Health Care Education/Training Program; PCP Internal Medicine; Visit Provider General Practice
DX: J18.9 Pneumonia, unspecified organism (principal); J96.01 Acute respiratory failure with hypoxia; I25.10 Atherosclerotic heart disease of native coronary artery without angina pectoris; Z95.1 Presence of aortocoronary bypass graft; I73.9 Peripheral vascular disease, unspecified; I48.91 Unspecified atrial fibrillation; I12.0 Hypertensive chronic kidney disease with stage 5 chronic kidney disease or end stage renal disease; I50.9 Heart failure, unspecified; E11.22 Type 2 diabetes mellitus with diabetic chronic kidney disease; N18.6 End stage renal disease; D63.1 Anemia in chronic kidney disease; Z99.2 Dependence on renal dialysis; Z20.822 Contact with and (suspected) exposure to COVID-19; R94.31 Abnormal electrocardiogram [ECG] [EKG]; E11.319 Type 2 diabetes mellitus with unspecified diabetic retinopathy without macular edema; E11.40 Type 2 diabetes mellitus with diabetic neuropathy, unspecified; E66.01 Morbid (severe) obesity due to excess calories; Z89.512 Acquired absence of left leg below knee; Z89.511 Acquired absence of right leg below knee; E78.5 Hyperlipidemia, unspecified; F41.8 Other specified anxiety disorders; Z66 Do not resuscitate; F17.210 Nicotine dependence, cigarettes, uncomplicated; Z86.16 Personal history of COVID-19; Z79.4 Long term (current) use of insulin; Z79.899 Other long term (current) drug therapy
CPT/HCPCS: 36415; 71046; 80048; 80053; 82948; 83735; 83880; 84100; 84145; 84484; 85025; 85055; 86706; 87340; 87637; 87641; 93005; 99285; A9270; G0257; G0378; J0692; J1644; J1650; J1815; J3370; J7030; Q5105

== ENCOUNTER 2023-06-13 08:33 | Inpatient (IN) | payer MEDICARE, OTHER, SELFPAY ==
[2023-06-13] VITALS (19 sets, daily range): BP systolic 91–151; BP diastolic 26–84; PULSE 65–78; RESP 13–20; TEMP 36.2–37.2; O2SAT 92–100
--- NOTE | ~2023-06-13 | XR_ITS ---
Portable chest x-ray Comparison: 06/16/2023 Clinical History: Shortness of breath Findings: Right-sided central venous line is unchanged. There are probable mild central congestive c hanges. Cardiomediastinal silhouette is stable. Bones and soft tissues are unremarkable. Impression: Stable support line. Mild central congestive changes. Reviewed, dictated and finalized at location . SERVICE HELPER Impression: Stable support line. Mild central congestive changes.
--- NOTE | ~2023-06-13 | CT_ITS ---
EXAMINATION: CT brain wo con DATE: 06/18/2023 17:59 INDICATION: Altered mental status. TECHNIQUE: Computed tomography (CT) of the head was performed without intravenous contrast. The mA wa s adjusted according to patient size. Iterative reconstruction technique was employed. The dose-lengt h product was 605.33 mGy-cm. COMPARISON: Head CT 03/26/2023 FINDINGS: There are scattered areas of low attenuation in the cerebral white matter. There is no intr acranial hemorrhage, acute infarction, or abnormal intracranial mass lesion. The ventricles are farida l in size. There are likely changes of ocular lens replacement surgeries. There is mild mucosal thick ening in the ethmoid sinuses. The mastoid air cells are normal. IMPRESSION: 1. Stable moderate nonspecific cerebral white matter disease, which likely represents chronic small v essel ischemic disease. Reviewed, dictated and finalized at location E. ILLERY WORKER GENERAL IMPRESSION: 1. Stable moderate nonspecific cerebral white matter disease, which likely repr esents chronic small vessel ischemic disease.
--- NOTE | ~2023-06-13 | XR_ITS ---
MODIFIED ESOPHAGRAM HISTORY: Aspiration pneumonia TECHNIQUE: Modified barium esophagram was performed on 06/14/2023. I administered fluoroscopy and perf ormed the exam with speech pathologist. Patient was seated for lateral fluoroscopic imaging for saqib stion of thin liquids, pudding, solids and quantified amounts, followed by thin liquids in uncontroll ed amounts. This was recorded on tape. A single fluoroscopic spot image was also recorded. The DAP fo r this procedure was 5.194 Gycm2. The amount of fluoroscopy time used during this procedure was 4.3 m inutes. FINDINGS: Oral stage: Adequate function. Pharyngeal stage: Reduced laryngeal elevation. Trace laryngeal penetration with uncontrolled thin liq uids with no aspiration.. Cervical/esophageal stage: Adequate function. IMPRESSION: Mild pharyngeal dysphagia with trace laryngeal penetration of uncontrolled thin liquids w ithout aspiration. Please correlate with speech pathologist findings and specific feeding recommenda tions. Reviewed, dictated and finalized at location A. T COLOR OPERATOR IMPRESSION: Mild pharyngeal dysphagia with trace laryngeal penetration of uncon trolled thin liquids without aspiration. Please correlate with speech patholog ist findings and specific feeding recommendations.
--- NOTE | ~2023-06-13 | XR_ITS ---
EXAMINATION: XR chest 1V portable INDICATION: Shortness of breath TECHNIQUE: Portable AP chest at 06/16/2023 COMPARISON: 06/13/2023; CT, 1123 FINDINGS: A large bore right internal jugular catheter ends with its tip in the proximal right atrium . Cardiomegaly is noted. There is a diffuse interstitial pattern with interval improvement. There are small pleural effusions. No pneumothorax is identified. A stable nodule is again noted in the right lower lobe. Median sternotomy wires and mediastinal surgical clips are seen, likely from prior ricci ry artery bypass grafting. IMPRESSION: 1. Cardiomegaly with improving pulmonary edema. 2. Small pleural effusions. 3. Stable right lower lobe lung nodule, suspicious for primary bronchogenic carcinoma. Reviewed, dictated and finalized at location F. EILLANCE SENSOR OPERATOR IMPRESSION: 1. Cardiomegaly with improving pulmonary edema. 2. Small pleural effusions. 3. Stable right lower lobe lung nodule, suspicious for primary bronchogenic car cinoma.
--- NOTE | ~2023-06-13 | XR_ITS ---
XR chest 2V DATE: 06/13/2023 09:11 INDICATION: Dyspnea, wheezing. History of CHF TECHNIQUE: 2 views, AP and lateral projections COMPARISON: 06/05/2023 AP and lateral chest FINDINGS: Status post sternotomy. Right internal jugular dialysis catheter, tip situated near inferior cavoatrial junction. Cardiomegaly. There is pulmonary vascular congestion and redistribution, prominence of the minor and greater fissures, Kimi B-lines, consistent with congestive heart failure and pulmonary interstitial and subpleural edema. Additionally, there is patchy infiltrate in the lower lung zones, with consolidation right lower lung in particular, which may be due to pulmonary edema, pneumonia and/or aspiration. Probable small pleural effusions. Aortic calcification. Osteopenia. IMPRESSION: Congestive heart failure, pulmonary edema. Lower lung infiltrates, right greater than left, suggesting pulmonary edema, pneumonia and/or aspirat ion. Congestive changes and infiltrates are increased since 06/05/2023 Reviewed, dictated and finalized at location L. GER SUPPLY IMPRESSION: Congestive heart failure, pulmonary edema. Lower lung infiltrates, right greater than left, suggesting pulmonary edema, pn eumonia and/or aspiration. Congestive changes and infiltrates are increased since 06/05/2023
--- NOTE | 2023-06-13 08:35 | ECG_ITS ---
Measurements Intervals [place] Rate: 69 P: 86 MI: 189 QRS: 266 QRSD: 148 T: 192 QT: 426 QTc: 458 Interpretive Statements SINUS RHYTHM ATRIAL PREMATURE COMPLEX MARKED RIGHT AXIS DEVIATION RIGHT BUNDLE BRANCH BLOCK ANTEROSEPTAL INFARCT, AGE INDETERMINATE ST-T WAVE ABNORMALITY IN ANTEROLAT/HIGH LAT LEADS- CONSIDER ISCHEMIA BASELINE WANDER- II, III, AVL, AVF, V3-V6 COMPARED TO ECG 06/05/2023 17:46:09 NO SIGNIFICANT CHANGES Electronically Signed On 06-13-2023 9:09:00 [employer] SCI[employer] by Fito Mcintosh D.O.
[2023-06-13 09:02] LABS: Basophils Percent Auto 0.5 % (0.2-1.2); Eosinophils Absolute Auto 0.1 K/mm3 (0-0.3); Eosinophils Percent Auto 2.1 % (0-4.4); Hematocrit 29.4 % (37.0-47.0); Hemoglobin 8.7 g/dL (12.0-15.0); Immature Granulocyte Absolute 0.04 K/mm3 (0.00-0.031); Immature Granulocyte Percent A 0.6 % (0-0.5); Lymphocytes Absolute Auto 0.92 K/mm3 (0.9-3.2); Mean Corpuscular HGB Conc 29.6 g/dl (32-36); Mean Corpuscular Hemoglobin 31.8 pg (26-34); Mean Corpuscular Volume 107.3 fl (80-100); Mean Platelet Volume 12.7 fl (7.4-10.4); Monocytes Absolute Auto 0.4 K/mm3 (0.1-0.6); Monocytes Percent Auto 6.7 % (2.6-8.5); Neutrophils Percent Auto 76.1 % (45.5-73.1); Platelet Count Result 111 k/mm3 (150-375); Red Blood Count 2.74 M/mm3 (4.2-5.4); Red Cell Distribution Width 14.9 % (11.5-14.5); White Blood Count 6.6 K/mm3 (4.5-10.0)
[2023-06-13 09:13] LABS: Alanine Aminotransferase 11 U/L (6-35); Albumin Level 3.5 g/dL (3.5-5.1); Alkaline Phosphatase 89 U/L (38-126); Anion Gap 9 mmol/L (8-16); Aspartate Amino Transferase 16 U/L (14-36); Bilirubin,Total 0.7 mg/dL (0.2-1.3); Blood Urea Nitrogen 45 mg/dL (7-17); Calcium 7.8 mg/dL (8.4-10.2); Carbon Dioxide 28 mmol/L (22-30); Chloride 103 mmol/L (98-107); Estimated Glomerular Filt Rate 6; Glucose 137 mg/dL (65-110); INR 1.5; Sodium 140 mmol/L (137-145)
[2023-06-13 09:14] LABS: Partial Thromboplastin Time 37.2 SECONDS (22.3-36.8)
[2023-06-13 09:26] LABS: NT Pro B Type Natriuretic Pept > 30000 pg/mL (19.9-100)
[2023-06-13 09:30] LABS: Hypochromasia 1+ (NORMAL); Macrocytosis 1+ (NORMAL); Schistocytes None Seen (NORMAL)
--- NOTE | 2023-06-13 12:40 | ED.GENADULT ---
HPI - General Adult General Chief complaint: Shortness of Breath/Dyspnea Stated complaint: SOB Time Seen by Provider: 06/13/23 08:39 History of Present Illness HPI narrative: Patient is a 72-year-old female with history of CHF and end-stage renal disease who presents ER with shortness of breath. She has mild hypoxia. She is due for dialysis today. Denies chest pain or chest pressure. No fevers chills sweats. No cough. Related Data Home Medications Medication Instructions Recorded Confirmed insulin degludec 100 unit/mL 28 unit subcut HS 11/03/19 06/13/23 subcutaneous solution (Tresiba U-100 Insulin) cetirizine 10 mg tablet 10 mg PO DAILY allergies 02/06/22 06/13/23 insulin aspart U-100 100 unit/mL 10 unit subcut TIDWMEAL 02/28/22 06/13/23 (3 mL) subcutaneous pen (Novolog FlexPen U-100 Insulin aspart) pantoprazole 40 mg tablet,delayed 40 mg PO DAILY 02/28/22 06/13/23 release calcium carbonate 300 mg (750 mg) 2 tablet PO TIDWMEAL Indigestion 01/10/23 06/13/23 chewable tablet (Tums E-X) nifedipine 30 mg tablet,extended 30 mg PO BID PRN dialysis 02/20/23 06/13/23 release atorvastatin 40 mg tablet 40 mg PO HS 04/24/23 06/13/23 carvedilol 12.5 mg tablet (Coreg) 12.5 mg PO Q12H 04/24/23 06/13/23 gabapentin 400 mg capsule 400 mg PO TID 04/24/23 06/13/23 losartan 100 mg tablet 100 mg PO .MONWEDFRISUN 04/24/23 06/13/23 nitroglycerin 0.4 mg sublingual 0.4 mg sublingual Q5MIN PRN Chest 04/24/23 06/13/23 tablet Pain Allergies Allergy/AdvReac Type Severity Reaction Status Date / Time No Known Allergies Allergy Verified 05/25/23 02:47 Review of Systems Review of Systems: All systems reviewed & are unremarkable except as noted in HPI and below Constitutional: Constitutional: Reports no additional constitutional complaints ENT: Reports system reviewed and no additional complaints, except as documented Cardiovascular: Cardiovascular: Reports no additional cardiovascular complaints Respiratory: Respiratory: Denies cough, Reports dyspnea and Denies wheezing Gastrointestinal: Gastrointestinal: Reports no additional gastrointestinal complaints [facility] Past Medical History Medical History Anxiety with depression Arterial vascular disease Chronic anemia Coronary artery disease COVID Digital arterial occlusive disease End-stage renal disease on hemodialysis Saturday, , Saturday. 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 Hemoglobin A1c was 6.8% in February 2020. Osteomyelitis Paroxysmal atrial fibrillation Peripheral vascular disease Renal osteodystrophy Thrombocytopenia Surgical History Surgical History Amputation of right forefoot Right 4th and 5th ray amputation in 04/2017. Right foot transmetatarsal amputation with partial fasciotomy due to wet gangrene, osteomyelitis, and necrotizing fasciitis in May 2017. 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 History of below-knee amputation of both lower extremities Left nwrnk-fvv-dzig amputation in 2017. Right lwzbk-lke-fjfg amputation in 02/2020. 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 History of vascular surgery Right lower extremity stents in March 2017. Left lower extremity stent in 2014. Family History Family History Mother Diabetes mellitus Father Lung cancer Acute myocardial infarction Sibling Diabetes mellitus Social
--- NOTE | 2023-06-13 14:50 | PM.CNNEP ---
Assessment and Plan Assessment and plan (1) End stage renal disease: Code(s): N18.6 - End stage renal disease Status: Chronic Assessment and Plan: HD tomorrow (since unable to get HD today) and likely again on Saturday continue T/T/S dialysis schedule while hospitalized follow electrolytes, volume status, and clearance (2) Shortness of breath: Code(s): R06.02 - Shortness of breath Status: Acute Assessment and Plan: likely related to several issues: pulmonary edema/CHF suspected pneumonia - aspiration? underlying history of COPD reactive airway disease admission CXR noted fluid removal/ultrafiltration as tolerated with dialysis antibiotics supplemental oxygen follow respiratory status (3) Pneumonia: Code(s): J18.9 - Pneumonia, unspecified organism Status: Acute Assessment and Plan: as suggested by admission CXR aspiration? aspiration precautions on antibiotics follow cultures (4) Hypertension: Status: Chronic Assessment and Plan: reasonable control resume home medications follow trend of hemodynamics (5) Anemia: Status: Chronic Assessment and Plan: due to ESRD Epogen with HD follow trend of H/H (6) Insulin dependent type 2 diabetes mellitus: Status: Chronic Assessment and Plan: follow accuchecks glycemic control per hospitalists I will continue follow the patient with you while she remains hospitalized make further recommendations during her hospital course. Thank you for allowing me to participate in the care of this patient. History of Present Illness Reason for Consult Consult date: 06/13/23 Reason for consult: end stage renal disease Chief Complaint Chief complaint: chf exacerbation,hypoxia,fluid overload History of Present Illness Narrative: The patient is a 72-year-old female with extensive past medical history as outlined below who presented to [facility] Emergency Room for further evaluation of shortness of breath and altered mentation. Apparently, early this morning, when the patient's sister and caregiver try to wake the patient up, she seemed to be very lethargic. When her sister attempted to talk to the patient, the patient would only give one-word answers and then quickly go back to sleep. Patient's sister contacted her outpatient dialysis unit to relay these events and the nursing staff encouraged her to bring her for her scheduled dialysis treatment today. However, as the patient's sister was quite concerned by her mentation, she brought the patient to the emergency room instead for further assessment. By the patient's arrival to the emergency room, her mentation seemed to be somewhat better as she was more awake and alert but she was noted to be hypoxic. Upon further questioning to the patient, she reported generalized weakness and shortness of breath that seemed to be somewhat worse than her baseline. Subsequent workup and evaluation demonstrated labs consistent with her known history of end-stage renal disease and a chest x-ray that revealed evidence of pulmonary edema and congestive heart failure with the suggestion of aspiration pneumonia. Given the patient's constellation of symptoms as well as her laboratory/ imaging findings, she was admitted the hospital for further evaluation and therapy. Renal consultation was requested due to her end-stage renal disease. The patient is quite familiar to me as I have taking care of her on multiple/numerous occasions whenever she is admitted here to [facility]. The patient normally dialyzes on a Saturday, , Saturday dialysis schedule at [facility] under the care of Dr. Clarke. She does not recall any issues or problems with her last outpatient dialysis treatment. From my previous discussions with her outpatient dialysis unit, she sometimes has significant fluid gains in [facility]
--- NOTE | 2023-06-13 19:07 | PM.IMHP ---
H&P: HPI History of Present Illness Date/Time: 06/13/23 19:07 Chief Complaint: 72-year-old female with PMHx: of but not limited to CHF, end-stage renal disease on HD TTS, CAD s/p: CABG history of bilateral lower extremity amputations, diabetes, HTN, uses 2 L oxygen via NC at night, presented to the emergency room via EMS with complaints of ongoing weakness, shortness of breath Narrative: patient provides limited HPI, she reports ongoing weakness and shortness of breath, she states her sister did not want her to attend dialysis today. Patient was recently seen and discharged from hospital 06/07/2023 with PN, acute respiratory failure with hypoxia. spoke with her sister on the phone who reveals she is patient's caregiver, she states this morning she tried to get her sister and of bed to go to dialysis when she noticed patient was very lethargic only providing 1 word answers sister states she became very concerned, she states she called the dialysis unit who encouraged her to bring her into dialysis for treatment, her sister was unsure of patient's condition citing she decided to bring patient to emergency room. Patient's sister states pt did not complain about any chest pain, nausea, vomiting, fever, chills. Of note long discussion with sister over the phone last hospital admission patient's troponin was elevated then downtrended, cardiology was consulted and the patient has decided to be DNR and does not wish further interventions. The sister explained that she understood but she was very nervous about patient's condition and did not want her to at home, which is why she decided to bring her to the emergency room. ED workup reveals: CHF exacerbation, CXR reveals congestive heart failure, pulmonary edema, lower lung infiltrates right greater than left, pulmonary edema, PN and/or aspiration, congestive changes and infiltrates are increased since 06/05/2023. Review of Systems Review of Systems: All systems reviewed & are unremarkable except as noted in HPI and below PMFSH Past Medical History Medical History Anxiety with depression Arterial vascular disease Chronic anemia Coronary artery disease COVID Digital arterial occlusive disease End-stage renal disease on hemodialysis Saturday, , Saturday. 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 Hemoglobin A1c was 6.8% in February 2020. Osteomyelitis Paroxysmal atrial fibrillation Peripheral vascular disease Renal osteodystrophy Thrombocytopenia Surgical History Surgical History Amputation of right forefoot Right 4th and 5th ray amputation in 04/2017. Right foot transmetatarsal amputation with partial fasciotomy due to wet gangrene, osteomyelitis, and necrotizing fasciitis in May 2017. 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 History of below-knee amputation of both lower extremities Left clkmd-[id number] amputation in 2017. Right ilquc-[id number]-[id number] amputation in 02/2020. 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 History of vascular surgery Right lower extremity stents in March 2017. Left lower extremity stent in 2014. Family History Family History Mother Diabetes mellitus Father Lung cancer Acute myocardial infarction Sibling Diabetes mellitus Social History Social History Social History: Smokes
[2023-06-13] MEDS: APIXABAN 5 MG TABLET PO (20:39)
[2023-06-13] MEDS: carvediloL 12.5 MG TABLET PO (20:39)
[2023-06-13] MEDS: AMOXICILLIN/CLAVULANATE K 500-125 MG TAB 1 TABLET PO (20:40)
[2023-06-13] MEDS: GABAPENTIN 400 MG CAPSULE PO (20:40)
[2023-06-13] MEDS: INSULIN GLARGINE (*BKC) 100 UNITS/ML 28 UNITS SUB-Q (22:16)
[2023-06-14] VITALS (33 sets, daily range): BP systolic 102–136; BP diastolic 38–100; PULSE 60–102; RESP 16–20; TEMP 35.9–37; O2SAT 95–100
[2023-06-14 05:04] LABS: Basophils Percent Auto 0.5 % (0.2-1.2); Eosinophils Absolute Auto 0.2 K/mm3 (0-0.3); Eosinophils Percent Auto 2.7 % (0-4.4); Hematocrit 28.7 % (37.0-47.0); Hemoglobin 8.5 g/dL (12.0-15.0); Immature Granulocyte Absolute 0.04 K/mm3 (0.00-0.031); Immature Granulocyte Percent A 0.7 % (0-0.5); Immature Platelet Fraction Pct 8.9 % (0.9-11.2); Lymphocytes Absolute Auto 1.12 K/mm3 (0.9-3.2); Lymphocytes Percent Auto 18.9 % (18.3-44.2); Mean Corpuscular HGB Conc 29.6 g/dl (32-36); Mean Corpuscular Hemoglobin 31.6 pg (26-34); Mean Corpuscular Volume 106.7 fl (80-100); Mean Platelet Volume 12.1 fl (7.4-10.4); Monocytes Absolute Auto 0.4 K/mm3 (0.1-0.6); Monocytes Percent Auto 7.4 % (2.6-8.5); Neutrophils Absolute Auto 4.1 K/mm3 (1.3-6.7); Neutrophils Percent Auto 69.8 % (45.5-73.1); Platelet Count Result 97 k/mm3 (150-375); Red Blood Count 2.69 M/mm3 (4.2-5.4); Red Cell Distribution Width 14.9 % (11.5-14.5); White Blood Count 5.9 K/mm3 (4.5-10.0)
[2023-06-14 05:10] LABS: Alanine Aminotransferase 8 U/L (6-35); Albumin Level 3.2 g/dL (3.5-5.1); Alkaline Phosphatase 70 U/L (38-126); Anion Gap 11 mmol/L (8-16); Aspartate Amino Transferase 14 U/L (14-36); Bilirubin,Total 0.9 mg/dL (0.2-1.3); Blood Urea Nitrogen 54 mg/dL (7-17); Calcium 7.6 mg/dL (8.4-10.2); Carbon Dioxide 26 mmol/L (22-30); Chloride 103 mmol/L (98-107); Estimated Glomerular Filt Rate 5; Glucose 79 mg/dL (65-110); Sodium 140 mmol/L (137-145)
[2023-06-14 05:20] LABS: NT Pro B Type Natriuretic Pept > 30000 pg/mL (19.9-100)
[2023-06-14 06:43] LABS: Hypochromasia 1+ (NORMAL); Platelet Estimate Decreased (Adequate); Schistocytes None Seen (NORMAL)
--- NOTE | 2023-06-14 07:30 | PC.NURSE ---
BG 65. 4 oz of apple juice given.
[2023-06-14 08:31] LABS: Glucose Point of Care 64 mg/dl (65-105)
[2023-06-14 09:05] LABS: Glucose Point of Care 92 mg/dl (65-105)
[2023-06-14] MEDS: EPOETIN ALFA-EPBX 10,000 UNITS/ML VIAL 10000 UNITS IV PUSH (10:00)
[2023-06-14 10:19] LABS: Glucose Point of Care 90 mg/dl (65-105)
--- NOTE | 2023-06-14 11:27 | P.PNNP_ITS ---
Progress Note: A&P Assessment and Plan (1) End stage renal disease: Code(s): N18.6 - End stage renal disease Status: Chronic Assessment and Plan: * HD today and again tomorrow * continue T/T/S dialysis schedule from then on while hospitalized * follow electrolytes, volume status, and clearance (2) Shortness of breath: Code(s): R06.02 - Shortness of breath Status: Acute Assessment and Plan: * likely related to several issues: * pulmonary edema/CHF * suspected pneumonia - aspiration? * underlying history of COPD * reactive airway disease * admission CXR noted * fluid removal/ultrafiltration as tolerated with dialysis * antibiotics * supplemental oxygen * follow respiratory status * The patient does have a history of coronary disease. She has not had a stress test lately. Consider 1 of these next week? (3) Pneumonia: Code(s): J18.9 - Pneumonia, unspecified organism Status: Acute Assessment and Plan: * as suggested by admission CXR * aspiration? * aspiration precautions * on antibiotics * follow cultures (4) Hypertension: Qualifiers: Hypertension type: renovascular hypertension Qualified Code(s): I15.0 - Renovascular hypertension Code(s): I10 - Essential (primary) hypertension Status: Chronic Assessment and Plan: Systolic blood pressure is under good control running in the 100-120 range (5) Anemia: Code(s): D64.9 - Anemia, unspecified Status: Chronic Assessment and Plan: Hemoglobin is still somewhat low . She is getting Epogen. Will check a reticulocyte count. No need for iron levels since she has pneumonia and we would is give iron anyway. (6) Insulin dependent type 2 diabetes mellitus: Code(s): E11.9 - Type 2 diabetes mellitus without complications; Z79.4 - group home (current) use of insulin Status: Chronic Assessment and Plan: Glucose management per hospitalists. Subjective Date/time seen: 06/14/23 11:27 Interval history: Patient is feeling okay today Is lying in semi-Roblero's position She is on dialysis and tolerating it well. She was seen at 10:40 a.m.. Blood pressure is doing well Review of Systems Cardiovascular: Cardiovascular: Reports no additional cardiovascular comp laints Respiratory: Respiratory: Reports no additional respiratory complaints Gastrointestinal: Gastrointestinal: Reports no additional gastrointestinal complaints Genitourinary: Genitourinary: Reports no additional female genitourinary c omplaints Exam Narrative: WDWN in NAD skin no rash head ncat lungs clear cor reg no rub abd BS+ nontender and soft ext no edema. Objective Data Vital Signs Vital Signs: Vital Signs - 24 hr 06/13/23 11:32 06/13/23 12:02 06/13/23 12:47 Temperature 97.8 F 97.7 F Pulse Rate 69 65 69 Respiratory Rate 14 15 17 Blood Pressure 127/57 L 116/51 L 129/70 Pulse Oximetry 98 100 98 Oxygen Delivery Oxygen Flow Rate 06/13/23 14:44 06/13/23 13:16 06/13/23 13:31 Temperature 97.9 F 97.6 F Pulse Rate 71 70 68 Respiratory Rate 20 16 14 Blood Pressure 151/46 H 91/26 L 109/38 L Pulse Oximetry 98 100 Oxygen Delivery
--- NOTE | 2023-06-14 11:27 | PM.PNNEP ---
Progress Note: A&P Assessment and Plan (1) End stage renal disease: Code(s): N18.6 - End stage renal disease Status: Chronic Assessment and Plan: HD today and again tomorrow continue T/T/S dialysis schedule from then on while hospitalized follow electrolytes, volume status, and clearance (2) Shortness of breath: Code(s): R06.02 - Shortness of breath Status: Acute Assessment and Plan: likely related to several issues: pulmonary edema/CHF suspected pneumonia - aspiration? underlying history of COPD reactive airway disease admission CXR noted fluid removal/ultrafiltration as tolerated with dialysis antibiotics supplemental oxygen follow respiratory status The patient does have a history of coronary disease. She has not had a stress test lately. Consider 1 of these next week? (3) Pneumonia: Code(s): J18.9 - Pneumonia, unspecified organism Status: Acute Assessment and Plan: as suggested by admission CXR aspiration? aspiration precautions on antibiotics follow cultures (4) Hypertension: Qualifiers: Hypertension type: renovascular hypertension Qualified Code(s): I15.0 - Renovascular hypertension Code(s): I10 - Essential (primary) hypertension Status: Chronic Assessment and Plan: Systolic blood pressure is under good control running in the 100-120 range (5) Anemia: Code(s): D64.9 - Anemia, unspecified Status: Chronic Assessment and Plan: Hemoglobin is still somewhat low . She is getting Epogen. Will check a reticulocyte count. No need for iron levels since she has pneumonia and we would is give iron anyway. (6) Insulin dependent type 2 diabetes mellitus: Code(s): E11.9 - Type 2 diabetes mellitus without complications; Z79.4 - rn long term care (current) use of insulin Status: Chronic Assessment and Plan: Glucose management per hospitalists. Subjective Date/time seen: 06/14/23 11:27 Interval history: Patient is feeling okay today Is lying in semi-Roblero's position She is on dialysis and tolerating it well. She was seen at 10:40 a.m.. Blood pressure is doing well Review of Systems Cardiovascular: Cardiovascular: Reports no additional cardiovascular complaints Respiratory: Respiratory: Reports no additional respiratory complaints Gastrointestinal: Gastrointestinal: Reports no additional gastrointestinal complaints Genitourinary: Genitourinary: Reports no additional female genitourinary complaints Exam Narrative: WDWN in NAD skin no rash head ncat lungs clear cor reg no rub abd BS+ nontender and soft ext no edema. Objective Data Vital Signs Vital Signs: Vital Signs - 24 hr 06/13/23 11:32 06/13/23 12:02 06/13/23 12:47 Temperature 97.8 F 97.7 F Pulse Rate 69 65 69 Respiratory Rate 14 15 17 Blood Pressure 127/57 L 116/51 L 129/70 Pulse Oximetry 98 100 98 Oxygen Delivery Oxygen Flow Rate 06/13/23 14:44 06/13/23 13:16 06/13/23 13:31 Temperature 97.9 F 97.6 F Pulse Rate 71 70 68 Respiratory Rate 20 16 14 Blood Pressure 151/46 H 91/26 L 109/38 L Pulse Oximetry 98 100 Oxygen Delivery Oxygen Flow Rate 06/13/23 13:46 06/13/23 15:20 06/13/23 16:12 Temperature 97.8 F 97.2 F L 98.9 F Pulse Rate 68 69 78 Respiratory Rate 14 16 20 Blood Pressure 103/45 L 138/53 L 138/62 Pulse Oximetry 92 97 Oxygen Delivery Oxygen Flow Rate 06/13/23 16:00 06/13/23 16:00 06/13/23 18:00 Temperature Pulse Rate 71 74 Respiratory Rate Blood Pressure Pulse Oximetry 92 Oxygen Delivery Nasal Cannula Oxygen Flow Rate 2 06/13/23 19:53 06/13/23 20:39 06/13/23 20:00 Temperature 97.6 F Pulse Rate 74 76 76 Respiratory Rate 16 16 Blood Pressure 135/51 L Pulse Oximetry 93 93 Oxygen Delivery Nasal Cannula Oxygen Flow Rate 2 06/14/23 00:00 06/14/23 00:00 06/13/23 20:00 Temperature 97.1
[2023-06-14] MEDS: CLOPIDOGREL BISULFATE 75 MG TABLET PO (11:45)
[2023-06-14] MEDS: APIXABAN 5 MG TABLET PO ×2 (11:45→22:20)
[2023-06-14] MEDS: AMOXICILLIN/CLAVULANATE K 500-125 MG TAB 1 TABLET PO (11:45)
[2023-06-14] MEDS: PANTOPRAZOLE 40 MG TABLET PO (11:45)
[2023-06-14] MEDS: carvediloL 12.5 MG TABLET PO ×2 (11:45→22:20)
[2023-06-14] MEDS: LORATADINE 10 MG TABLET PO (11:45)
[2023-06-14] MEDS: GABAPENTIN 400 MG CAPSULE PO ×2 (11:45→17:02)
[2023-06-14 12:25] LABS: Glucose Point of Care 79 mg/dl (65-105)
--- NOTE | 2023-06-14 12:57 | PC.NURSE ---
Spoke with BRIANNA Bingham from [facility] who reports pt is ok to get MRI. Pain pump will restart, if the pump malfunctions pt will be ok to wait until Saturday to be seen in clinic. Pt also has option to call designated nurse to check pump. Otilia reports pump will beep q 10 minutes if its malfunctioning. Medications in pump are as follows: Dilaudid, Clonidine, and Bupivacaine.
--- NOTE | 2023-06-14 13:47 | PCPTNOTE ---
attempted PT eval, pt is at dialysis 13:47, per RN pt will be back in room around 16:00
--- NOTE | 2023-06-14 14:38 | PM.IMPN ---
Progress Note: A&P Assessment and Plan (1) Hypoxia: Code(s): R09.02 - Hypoxemia Status: Acute (2) Breath shortness: Code(s): R06.02 - Shortness of breath Status: Acute (3) Hypertension: Qualifiers: Hypertension type: renovascular hypertension Qualified Code(s): I15.0 - Renovascular hypertension Code(s): I10 - Essential (primary) hypertension Status: Chronic (4) Arterial vascular disease: Code(s): I70.90 - Unspecified atherosclerosis Status: Acute (5) Coronary artery disease: Qualifiers: Coronary Disease-Associated Artery/Lesion type: chronic coronary microvascular dysfunction Qualified Code(s): I25.85 - Chronic coronary microvascular dysfunction Code(s): I25.10 - Atherosclerotic heart disease of [place] coronary artery without angina pectoris Status: Chronic (6) CKD (chronic kidney disease) requiring chronic dialysis: Code(s): N18.6 - End stage renal disease; Z99.2 - Dependence on renal dialysis Status: Acute (7) History of left below knee amputation: Code(s): Z89.512 - Acquired absence of left leg below knee Status: Acute (8) Pulmonary edema: Qualifiers: Chronicity: chronic Qualified Code(s): J81.1 - Chronic pulmonary edema Code(s): J81.1 - Chronic pulmonary edema Status: Acute (9) Diabetes: Qualifiers: Diabetes mellitus type: type 2 Diabetes mellitus impregnation operator insulin use: with intermediate use Diabetes mellitus complication status: with other specified complication Qualified Code(s): E11.69 - Type 2 diabetes mellitus with other specified complication; Z79.4 - custom harvester (current) use of insulin Code(s): E11.9 - Type 2 diabetes mellitus without complications Status: Acute (10) Acute exacerbation of CHF (congestive heart failure): Qualifiers: Heart failure type: diastolic Qualified Code(s): I50.33 - Acute on chronic diastolic (congestive) heart failure Code(s): I50.9 - Heart failure, unspecified Status: Acute (11) Anemia: Qualifiers: Anemia type: due to chronic kidney disease Chronic kidney disease stage: on chronic dialysis Qualified Code(s): N18.6 - End stage renal disease; D63.1 - Anemia in chronic kidney disease; Z99.2 - Dependence on renal dialysis Code(s): D64.9 - Anemia, unspecified Status: Chronic Plan SOB/Hypoxia -89% POA -placed on 2L supplemental oxygen with improvement wean as as tolerated -Missed her dialysis -CXR showing pulmonary edema/new worsening infiltrates Aspiration PNA vs HCAP recent admission?? -pBNP elevated but trended down since last admission 06/05/2023 ESRD-chronic dialysis Acute on chronic renal failure -Missed dialysis -nephrology consulted -Dialysis scheduled 06/14 and 06/15 -Avoid nephrotoxic drugs. -Monitor antihypertensive drug therapy. -Avoid NSAIDs. -strict I&O's -fluid restriction -Routine CMP monitoring GFR. -Monitor electrolytes especially potassium. -Antibiotic doses depending on creatinine clearance. -Pharmacy does medications. Aspiration PNA vs HCAP?? -CXR pulmonary edema with worsening infilitration -No leukocytosis -.barium swallow scheduled 06/14/2023 -Continued PT PO abx from home -appears this is more fluid overload from missing dialysis Elevated Toponin -Trending flat -was seen by cardiology 06/05/2023 -likey ischemic demand chronically elevated ESRD -Denies CP -Does not want any interventions -Last ECHO 11/23 diastolic dysfunction LVEF 60-65% CAD -CABG -continue Plavix, statin, BB and IMDUR Paroxysmal atrial fibrillation -Resumed eleiquis A/C diastolic heart failure -CXR showing pulmonary edema -This likely due to missed dialysis Diabetes -Accu-Cheks a.c. HS -sliding scale insulin -resume patient's home long-acting -Diabetic diet -consult to dietitian -encourage lifestyle modifications and weight loss -Optimize
--- NOTE | 2023-06-14 14:59 | PCSTNOTE ---
Please refer to the Bedside Swallow Evaluation in the EMR. Please note, silent aspiration cannot be ruled out at bedside.
[2023-06-14] MEDS: CALCIUM CARBONATE (TUMS) 500 MG (200 MG ELEMENTAL) 1500 MG PO ×2 (15:25→17:03)
[2023-06-14 15:52] LABS: Glucose Point of Care 68 mg/dl (65-105)
[2023-06-14 18:30] LABS: Glucose Point of Care 130 mg/dl (65-105)
[2023-06-14 20:27] LABS: Glucose Point of Care 121 mg/dl (65-105)
[2023-06-14] MEDS: INSULIN GLARGINE (*BKC) 100 UNITS/ML 28 UNITS SUB-Q (22:21)
[2023-06-15] VITALS (37 sets, daily range): BP systolic 115–159; BP diastolic 42–99; PULSE 52–75; RESP 16–22; TEMP 35.8–37.2; O2SAT 96–100
[2023-06-15 00:17] LABS: Glucose Point of Care 135 mg/dl (65-105)
[2023-06-15 04:40] LABS: Basophils Percent Auto 0.7 % (0.2-1.2); Eosinophils Absolute Auto 0.2 K/mm3 (0-0.3); Hematocrit 29.9 % (37.0-47.0); Hemoglobin 8.9 g/dL (12.0-15.0); Immature Granulocyte Absolute 0.03 K/mm3 (0.00-0.031); Immature Granulocyte Percent A 0.7 % (0-0.5); Lymphocytes Absolute Auto 1.08 K/mm3 (0.9-3.2); Lymphocytes Percent Auto 24.3 % (18.3-44.2); Mean Corpuscular HGB Conc 29.8 g/dl (32-36); Mean Corpuscular Volume 107.6 fl (80-100); Mean Platelet Volume 12.8 fl (7.4-10.4); Monocytes Absolute Auto 0.5 K/mm3 (0.1-0.6); Monocytes Percent Auto 10.1 % (2.6-8.5); Neutrophils Absolute Auto 2.7 K/mm3 (1.3-6.7); Neutrophils Percent Auto 60.2 % (45.5-73.1); Platelet Count Result 101 k/mm3 (150-375); Red Blood Count 2.78 M/mm3 (4.2-5.4); Red Cell Distribution Width 14.7 % (11.5-14.5); White Blood Count 4.5 K/mm3 (4.5-10.0)
[2023-06-15 05:16] LABS: Albumin Level 3.1 g/dL (3.5-5.1); Anion Gap 5 mmol/L (8-16); Blood Urea Nitrogen 28 mg/dL (7-17); Calcium 7.8 mg/dL (8.4-10.2); Carbon Dioxide 30 mmol/L (22-30); Chloride 104 mmol/L (98-107); Estimated Glomerular Filt Rate 9; Glucose 73 mg/dL (65-110); Phosphorus 5.6 mg/dL (2.5-4.5); Potassium 4.4 mmol/L (3.4-5.0); Sodium 139 mmol/L (137-145)
[2023-06-15 05:28] LABS: Glucose Point of Care 69 mg/dl (65-105)
[2023-06-15 08:00] LABS: Glucose Point of Care 86 mg/dl (65-105)
[2023-06-15] MEDS: SODIUM CHLORIDE 0.9% IV 1,000 ML 999 ML IV CONT (08:18)
--- NOTE | 2023-06-15 10:23 | PM.IMPN ---
Progress Note: A&P Assessment and Plan (1) Hypoxia: Code(s): R09.02 - Hypoxemia Status: Acute (2) Breath shortness: Code(s): R06.02 - Shortness of breath Status: Acute (3) Hypertension: Qualifiers: Hypertension type: renovascular hypertension Qualified Code(s): I15.0 - Renovascular hypertension Code(s): I10 - Essential (primary) hypertension Status: Chronic (4) Arterial vascular disease: Code(s): I70.90 - Unspecified atherosclerosis Status: Acute (5) Coronary artery disease: Qualifiers: Coronary Disease-Associated Artery/Lesion type: chronic coronary microvascular dysfunction Qualified Code(s): I25.85 - Chronic coronary microvascular dysfunction Code(s): I25.10 - Atherosclerotic heart disease of [place] coronary artery without angina pectoris Status: Chronic (6) CKD (chronic kidney disease) requiring chronic dialysis: Code(s): N18.6 - End stage renal disease; Z99.2 - Dependence on renal dialysis Status: Acute (7) History of left below knee amputation: Code(s): Z89.512 - Acquired absence of left leg below knee Status: Acute (8) Pulmonary edema: Qualifiers: Chronicity: chronic Qualified Code(s): J81.1 - Chronic pulmonary edema Code(s): J81.1 - Chronic pulmonary edema Status: Acute (9) Diabetes: Qualifiers: Diabetes mellitus complication status: with other specified complication Diabetes mellitus terminal supervisor insulin use: with terminal supervisor use Diabetes mellitus type: type 2 Qualified Code(s): E11.69 - Type 2 diabetes mellitus with other specified complication; Z79.4 - local intermodal truck driver (current) use of insulin Code(s): E11.9 - Type 2 diabetes mellitus without complications Status: Acute (10) Acute exacerbation of CHF (congestive heart failure): Qualifiers: Heart failure type: diastolic Qualified Code(s): I50.33 - Acute on chronic diastolic (congestive) heart failure Code(s): I50.9 - Heart failure, unspecified Status: Acute (11) Anemia: Qualifiers: Anemia type: due to chronic kidney disease Chronic kidney disease stage: on chronic dialysis Qualified Code(s): N18.6 - End stage renal disease; D63.1 - Anemia in chronic kidney disease; Z99.2 - Dependence on renal dialysis Code(s): D64.9 - Anemia, unspecified Status: Chronic Plan SOB/Hypoxia-Improving -89% POA -placed on 2L supplemental oxygen with improvement wean as as tolerated -Missed her dialysis -CXR showing pulmonary edema/new worsening infiltrates Aspiration PNA vs HCAP recent admission?? -pBNP elevated but trended down since last admission 06/05/2023 -F/U CXR 06/16/2023 for improvement following dialysis ESRD-chronic dialysis Acute on chronic renal failure -Missed dialysis -nephrology consulted -Dialysis scheduled 06/14 and 06/15 -Dialysis T/T/S -Avoid nephrotoxic drugs. -Monitor antihypertensive drug therapy. -Avoid NSAIDs. -strict I&O's -fluid restriction -Routine CMP monitoring GFR. -Monitor electrolytes especially potassium. -Antibiotic doses depending on creatinine clearance. -Pharmacy does medications. Aspiration PNA vs HCAP?? -CXR pulmonary edema with worsening infilitration -No leukocytosis -Barium swallow trace dysphagia with thin liquids will follow speech recommendations -Continued PT PO abx from home -appears this is more fluid overload from missing dialysis Elevated Troponin -Trending flat -was seen by cardiology 06/05/2023 -likey ischemic demand chronically elevated ESRD -Denies CP -Does not want any interventions -Last ECHO 11/23 diastolic dysfunction LVEF 60-65% CAD -CABG -continue Plavix, statin, BB and IMDUR -Stress ordered for 06/17/2023 -cardiology consulted for any further recommendations. Paroxysmal atrial fibrillation -Resumed eliquis Chronic Anemia -Secondary to ESRD -Monitor H&H -No signs of bleedin
--- NOTE | 2023-06-15 10:34 | PM.PNNEP ---
Progress Note: A&P Assessment and Plan (1) End stage renal disease: Code(s): N18.6 - End stage renal disease Status: Chronic Assessment and Plan: HD under way continue T/T/S dialysis schedule from then on while hospitalized volume status looks okay. Electrolytes look okay (2) Shortness of breath: Code(s): R06.02 - Shortness of breath Status: Acute Assessment and Plan: this is multifactorial, likely related to several issues: pulmonary edema/CHF suspected pneumonia - aspiration? underlying history of COPD reactive airway disease she does have coronary disease. Under if this is an issue. admission CXR noted fluid removal/ultrafiltration as tolerated with dialysis antibiotics supplemental oxygen follow respiratory status The patient does have a history of coronary disease. She has not had a stress test lately. Will order 1 for Saturday. If this is coronary disease we may be able to treat this medically and help keep her out of the hospital. (3) Pneumonia: Code(s): J18.9 - Pneumonia, unspecified organism Status: Acute Assessment and Plan: as suggested by admission CXR aspiration? aspiration precautions on antibiotics follow cultures (4) Hypertension: Qualifiers: Hypertension type: renovascular hypertension Qualified Code(s): I15.0 - Renovascular hypertension Code(s): I10 - Essential (primary) hypertension Status: Chronic Assessment and Plan: Systolic blood pressure is under good control running in the 100-140 range (5) Anemia: Qualifiers: Anemia type: due to chronic kidney disease Chronic kidney disease stage: on chronic dialysis Qualified Code(s): N18.6 - End stage renal disease; D63.1 - Anemia in chronic kidney disease; Z99.2 - Dependence on renal dialysis Code(s): D64.9 - Anemia, unspecified Status: Chronic Assessment and Plan: Hemoglobin is still somewhat low . it rosa from 8.5-8.9. She is getting Epogen. Reticulocyte count 2.7, not too bad. No need for iron levels since she has pneumonia and we would not give iron anyway. (6) Insulin dependent type 2 diabetes mellitus: Code(s): E11.9 - Type 2 diabetes mellitus without complications; Z79.4 - senior care (current) use of insulin Status: Chronic Assessment and Plan: Glucose management per hospitalists. Subjective Date/time seen: 06/15/23 10:34 Interval history: Patient is feeling okay today. No more shortness of breath. She is on dialysis and tolerating it well. She was seen at 8:40 a.m. Exam Narrative: WDWN in NAD skin no rash head ncat lungs clear bilateral cor reg no rub abd BS+ nontender and soft ext no edema or cyanosis. Objective Data Vital Signs Vital Signs: Vital Signs - 24 hr 06/14/23 10:45 06/14/23 11:00 06/14/23 11:15 Temperature Pulse Rate 80 80 70 Respiratory Rate Blood Pressure 113/46 L 110/44 L 102/57 L Pulse Oximetry Oxygen Delivery Oxygen Flow Rate 06/14/23 11:30 06/14/23 11:36 06/14/23 11:45 Temperature 98.1 F Pulse Rate 88 83 102 H Respiratory Rate 16 Blood Pressure 107/51 L 136/48 L 116/63 Pulse Oximetry Oxygen Delivery Oxygen Flow Rate 06/14/23 12:19 06/14/23 13:54 06/14/23 11:45 Temperature 96.7 F L Pulse Rate 84 75 Respiratory Rate 20 Blood Pressure 124/96 H Pulse Oximetry 95 Oxygen Delivery Nasal Cannula Oxygen Flow Rate 2 06/14/23 15:34 06/14/23 12:00 06/14/23 14:00 Temperature 97.4 F L Pulse Rate 65 84 94 Respiratory Rate 20 Blood Pressure 128/100 H Pulse Oximetry 98 Oxygen Delivery Oxygen Flow Rate 06/14/23 16:00 06/14/23 18:00 06/14/23 12:00 Temperature Pulse Rate 97 92 Respiratory Rate Blood Pressure Pulse Oximetry 97 Oxygen Delivery Nasal Cannula Oxygen Flow Rate 2 06/14/23 16:00 06/14/23 19:56 06/03
[2023-06-15] MEDS: EPOETIN ALFA-EPBX 10,000 UNITS/ML VIAL 10000 UNITS IV PUSH (11:21)
[2023-06-15 12:41] LABS: Glucose Point of Care 59 mg/dl (65-105)
[2023-06-15 13:30] LABS: Glucose Point of Care 79 mg/dl (65-105)
--- NOTE | 2023-06-15 13:38 | PM.CNCAR ---
Assessment and Plan Assessment and plan (1) Acute exacerbation of CHF (congestive heart failure): Qualifiers: Heart failure type: diastolic Qualified Code(s): I50.33 - Acute on chronic diastolic (congestive) heart failure Code(s): I50.9 - Heart failure, unspecified Status: Acute Assessment and Plan: Volume removal with dialysis. (2) Elevated troponin: Code(s): R79.89 - Other specified abnormal findings of blood chemistry Status: Acute Assessment and Plan: Chronically elevated. Lower than recent admissions at present. Continue current medical therapy. (3) Hypertension: Qualifiers: Hypertension type: renovascular hypertension Qualified Code(s): I15.0 - Renovascular hypertension Code(s): I10 - Essential (primary) hypertension Status: Chronic Assessment and Plan: Continue carvedilol, losartan, nifedipine other med (4) CAD (coronary artery disease): Code(s): I25.10 - Atherosclerotic heart disease of [place] coronary artery without angina pectoris Status: Acute Assessment and Plan: Continue standard home regimen without change. Could up titrate isosorbide if need be History of Present Illness History of Present Illness Consult date/time: 06/15/23 13:38 Requesting physician: Rosemary Lopez, M[employer]ICUT LINE OPERATOR Reason For Visit: chf exacerbation,hypoxia,fluid overload Narrative: Reason for consultation: CAD, CHF Date of service 06/15/2023 Requesting provider: Rosemary Lopez History:72-year-old female with PMHx: of but not limited to CHF, end-stage renal disease on HD TTS,? CAD s/p: CABG history of bilateral lower extremity amputations, diabetes, HTN, uses 2 L oxygen via [place] at night, presented to the emergency room via EMS with complaints of ongoing weakness, shortness of breath. She was just discharged and has been now readmitted. ?She has known severe CAD and PAD, along with ESRD. She is an established patient of [facility]. Has recurrent admissions to here. . She presents again for similar symptoms. Reports she had an episode of shortness of breath yesterday. She denies significant pain at this point but is more short of breath. No syncope, presyncope, paroxysmal nocturnal dyspnea, orthopnea. Elevated troponins are noted Review of Systems Review of Systems: All systems reviewed & are unremarkable except as noted in HPI and below Constitutional: Constitutional: Denies body ache(s) Eyes: Eyes: Denies blurry vision ENT: Reports Normal hearing present Cardiovascular: Cardiovascular: Denies chest pain Respiratory: Respiratory: Reports dyspnea Gastrointestinal: Gastrointestinal: Denies abdominal pain Genitourinary: Genitourinary: Denies hematuria Musculoskeletal: Musculoskeletal: Denies back pain Integumentary/Breasts: Skin/Breast: Denies erythema Neurologic: Denies Abnormal speech present Psychiatric: Psychiatric: Denies anxiety Endocrine: Endocrine: Denies excessive sweating Hematologic/Lymphatic: Hematologic/Lymphatic: Denies easy bleeding Allergic/Immunologic: Allergic/Immunologic: Denies GI upset with certain foods PMFSH Past Medical History Medical History (Updated 06/15/23 @ 13:45 by Noé Calzada MD) Anxiety with depression Arterial vascular disease CAD (coronary artery disease) Chronic anemia Coronary artery disease COVID Digital arterial occlusive disease End-stage renal disease on hemodialysis Saturday, , Saturday. 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 Hemoglobin A1c was 6.8% in February 2020. Osteomyelitis Paroxysmal atrial fibrillation Peripheral vascular disease Renal osteodystrophy Thrombocytopenia Surgical History Surgical History Amputation of right forefoot Right 4th a
[2023-06-15] MEDS: carvediloL 12.5 MG TABLET PO ×2 (14:01→20:51)
[2023-06-15] MEDS: CLOPIDOGREL BISULFATE 75 MG TABLET PO (14:01)
[2023-06-15] MEDS: LORATADINE 10 MG TABLET PO (14:01)
[2023-06-15] MEDS: AMOXICILLIN/CLAVULANATE K 500-125 MG TAB 1 TABLET PO (14:02)
[2023-06-15] MEDS: GABAPENTIN 400 MG CAPSULE PO ×2 (14:02→18:06)
[2023-06-15] MEDS: PANTOPRAZOLE 40 MG TABLET PO (14:02)
[2023-06-15] MEDS: APIXABAN 5 MG TABLET PO ×2 (14:02→20:51)
[2023-06-15] MEDS: CALCIUM CARBONATE (TUMS) 500 MG (200 MG ELEMENTAL) 1500 MG PO ×2 (14:11→18:06)
[2023-06-15 16:32] LABS: Glucose Point of Care 119 mg/dl (65-105)
--- NOTE | 2023-06-15 18:53 | PC.NURSE ---
This patient, Tawana Prado, was received from IMU on 06/15/23 at 1853. Patient/family oriented to unit policies and routines. Report received from Tania
[2023-06-15 21:53] LABS: Glucose Point of Care 130 mg/dl (65-105)
[2023-06-16] VITALS (17 sets, daily range): BP systolic 126–153; BP diastolic 42–54; PULSE 58–69; RESP 16–18; TEMP 36.1–36.8; O2SAT 96–100
[2023-06-16 00:41] LABS: Glucose Point of Care 111 mg/dl (65-105)
[2023-06-16 04:46] LABS: Basophils Percent Auto 0.6 % (0.2-1.2); Eosinophils Absolute Auto 0.2 K/mm3 (0-0.3); Hematocrit 30.4 % (37.0-47.0); Hemoglobin 8.9 g/dL (12.0-15.0); Immature Granulocyte Absolute 0.02 K/mm3 (0.00-0.031); Immature Granulocyte Percent A 0.4 % (0-0.5); Immature Platelet Fraction Pct 13.5 % (0.9-11.2); Lymphocytes Absolute Auto 1.19 K/mm3 (0.9-3.2); Lymphocytes Percent Auto 25.2 % (18.3-44.2); Mean Corpuscular HGB Conc 29.3 g/dl (32-36); Mean Corpuscular Hemoglobin 31.1 pg (26-34); Mean Corpuscular Volume 106.3 fl (80-100); Mean Platelet Volume 13.1 fl (7.4-10.4); Monocytes Absolute Auto 0.6 K/mm3 (0.1-0.6); Monocytes Percent Auto 12.5 % (2.6-8.5); Neutrophils Absolute Auto 2.7 K/mm3 (1.3-6.7); Neutrophils Percent Auto 57.3 % (45.5-73.1); Platelet Count Result 98 k/mm3 (150-375); Red Blood Count 2.86 M/mm3 (4.2-5.4); Red Cell Distribution Width 14.3 % (11.5-14.5); White Blood Count 4.7 K/mm3 (4.5-10.0)
[2023-06-16 04:59] LABS: Alanine Aminotransferase 8 U/L (6-35); Alkaline Phosphatase 68 U/L (38-126); Anion Gap 4 mmol/L (8-16); Aspartate Amino Transferase 18 U/L (14-36); Bilirubin,Total 0.7 mg/dL (0.2-1.3); Blood Urea Nitrogen 18 mg/dL (7-17); Calcium 7.7 mg/dL (8.4-10.2); Carbon Dioxide 36 mmol/L (22-30); Chloride 97 mmol/L (98-107); Estimated Glomerular Filt Rate 12; Glucose 83 mg/dL (65-110); Sodium 137 mmol/L (137-145)
--- NOTE | 2023-06-16 08:33 | PM.PNCARD ---
Progress Note: A&P Assessment and Plan (1) Acute exacerbation of CHF (congestive heart failure): Qualifiers: Heart failure type: diastolic Qualified Code(s): I50.33 - Acute on chronic diastolic (congestive) heart failure Code(s): I50.9 - Heart failure, unspecified Status: Acute Assessment and Plan: Volume removal with dialysis. Will also order chest physiotherapy today. I do not think that a repeat stress test is going to help. We know that she has obstructive CAD including graft stenosis. Will hold stress test for tomorrow and discuss with Dr. Maria (2) Elevated troponin: Code(s): R79.89 - Other specified abnormal findings of blood chemistry Status: Acute Assessment and Plan: Chronically elevated. Lower than recent admissions at present. Continue current medical therapy. (3) Hypertension: Qualifiers: Hypertension type: renovascular hypertension Qualified Code(s): I15.0 - Renovascular hypertension Code(s): I10 - Essential (primary) hypertension Status: Chronic Assessment and Plan: Continue carvedilol, losartan, nifedipine other med (4) CAD (coronary artery disease): Code(s): I25.10 - Atherosclerotic heart disease of [place] coronary artery without angina pectoris Status: Acute Assessment and Plan: Continue standard home regimen without change. Could up titrate isosorbide if need be Subjective Date/time seen: 06/16/23 08:33 Interval history: 72-year-old female with PMHx: of but not limited to CHF, end-stage renal disease on HD TTS,? CAD s/p: CABG history of bilateral lower extremity amputations, diabetes, HTN, uses 2 L oxygen via [place] at night, presented to the emergency room via EMS with complaints of ongoing weakness, shortness of breath Patient provides limited HPI, she reports ongoing weakness and shortness of breath, she states her sister did not want her to attend dialysis today.? Patient was recently seen and discharged from hospital 06/07/2023 with PN, acute respiratory failure with hypoxia.? spoke with her sister on the phone who reveals she is patient's caregiver, she states this morning she tried to get her sister and of bed to go to dialysis when she noticed patient was very lethargic? only providing 1 word answers sister states she became very concerned, she states she called the dialysis unit who encouraged her to bring her into dialysis for treatment, her sister was unsure of? patient's condition citing she decided to bring patient to emergency room.? Patient's sister states pt did not complain about any chest pain, nausea, vomiting, fever, chills. ? Of note long discussion with sister over the phone last hospital admission patient's troponin was elevated then downtrended, cardiology was consulted and the patient has decided to be DNR and does not wish further interventions.? The sister explained that she understood but she was very nervous about patient's condition and did not want her to at home, which is why she decided to bring her to the emergency room. ?ED workup reveals:? CHF exacerbation, CXR reveals congestive heart failure, pulmonary edema, lower lung infiltrates right greater than left, pulmonary edema, PN and/or aspiration, congestive changes and infiltrates are increased since 06/05/2023. Date of service 06/16/2023: She is feeling better. Less short of breath. Feels like she needs to cough a can not cough anything up but denies any chest pain. Review of Systems Review of Systems: All systems reviewed & are unremarkable except as noted in HPI and below Constitutional: Constitutional: Denies body ache(s) and Denies excessive sweating Eyes: Eyes: Denies blurry vision ENT: Reports Normal hearing present Cardiovascular: Cardiovascular: Denies chest pain and Reports dyspnea Respiratory: Respiratory: Reports dyspnea Gastrointestinal: Gastrointestinal: Denies abdominal pain Genitourinary: Genitourina
[2023-06-16 08:48] LABS: Glucose Point of Care 77 mg/dl (65-105)
--- NOTE | 2023-06-16 08:59 | PM.PNNEP ---
Progress Note: A&P Assessment and Plan (1) End stage renal disease: Code(s): N18.6 - End stage renal disease Status: Chronic Assessment and Plan: HD due on Saturday. continue T/T/S dialysis schedule from then on while hospitalized volume status looks okay. Electrolytes look okay . Potassium is 4 and bicarbonate is 36 (2) Shortness of breath: Code(s): R06.02 - Shortness of breath Status: Acute Assessment and Plan: this is multifactorial, likely related to several issues: pulmonary edema/CHF suspected pneumonia - aspiration? underlying history of COPD reactive airway disease she does have coronary disease. Under if this is an issue. shortness of breath is better. Stan check a stress test tomorrow to make sure that there is no cardiac issue involved in her periods of shortness of breath Will do another dialysis and remove more fluid on Saturday. (3) Pneumonia: Code(s): J18.9 - Pneumonia, unspecified organism Status: Acute Assessment and Plan: as suggested by admission CXR aspiration? aspiration precautions on Augmentin. (4) Hypertension: Qualifiers: Hypertension type: renovascular hypertension Qualified Code(s): I15.0 - Renovascular hypertension Code(s): I10 - Essential (primary) hypertension Status: Chronic Assessment and Plan: Systolic blood pressure is under good control running in the 100-140 range (5) Anemia: Qualifiers: Anemia type: due to chronic kidney disease Chronic kidney disease stage: on chronic dialysis Qualified Code(s): N18.6 - End stage renal disease; D63.1 - Anemia in chronic kidney disease; Z99.2 - Dependence on renal dialysis Code(s): D64.9 - Anemia, unspecified Status: Chronic Assessment and Plan: Hemoglobin is 8.9 today. She is getting Epogen. Reticulocyte count 2.7, not too bad. No need for iron levels since she has pneumonia and we would not give iron anyway. (6) Insulin dependent type 2 diabetes mellitus: Code(s): E11.9 - Type 2 diabetes mellitus without complications; Z79.4 - intermediate card tender (current) use of insulin Status: Chronic Assessment and Plan: Glucose management per hospitalists. (7) Abnormal urinalysis: Code(s): R82.90 - Unspecified abnormal findings in urine Status: Acute Assessment and Plan: urine culture grew Klebsiella which is resistant to Augmentin. Will switch to cefepime. Subjective Date/time seen: 06/16/23 08:59 Interval history: patient is alert. No shortness of breath she is having trouble coughing some sputum up. She does have a flutter valve which helps a little bit. Will give some Mucinex Exam Narrative: WDWN in NAD skin no rash or subcu nodule head ncat lungs clear bilateral cor reg no rub or gallop abd BS+ nontender and soft ext no edema or cyanosis. Objective Data Vital Signs Vital Signs: Vital Signs - 24 hr 06/15/23 09:00 06/15/23 09:15 06/15/23 09:30 Temperature Pulse Rate 69 63 63 Respiratory Rate Blood Pressure 132/54 L 137/58 L 133/60 Pulse Oximetry Oxygen Delivery Oxygen Flow Rate 06/15/23 09:45 06/15/23 10:00 06/15/23 10:15 Temperature Pulse Rate 70 62 63 Respiratory Rate Blood Pressure 135/64 149/62 H 141/65 H Pulse Oximetry Oxygen Delivery Oxygen Flow Rate 06/15/23 10:30 06/15/23 10:45 06/15/23 11:00 Temperature Pulse Rate 64 64 64 Respiratory Rate Blood Pressure 156/64 H 149/67 H 155/64 H Pulse Oximetry Oxygen Delivery Oxygen Flow Rate 06/15/23 12:22 06/15/23 11:15 06/15/23 11:30 Temperature 96.4 F L Pulse Rate 66 65 64 Respiratory Rate 20 Blood Pressure 126/99 H 148/63 H 148/63 H Pulse Oximetry 99 Oxygen Delivery Oxygen Flow Rate 06/15/23 11:45 06/15/23 11:51 06/15/23 11:55 Temperature Pulse Rate 65 66 66 Respiratory R
[2023-06-16] MEDS: PANTOPRAZOLE 40 MG TABLET PO (09:53)
[2023-06-16] MEDS: LORATADINE 10 MG TABLET PO (09:53)
[2023-06-16] MEDS: CALCIUM CARBONATE (TUMS) 500 MG (200 MG ELEMENTAL) 1500 MG PO ×3 (09:53→17:42)
[2023-06-16] MEDS: GABAPENTIN 400 MG CAPSULE PO ×3 (09:53→17:42)
[2023-06-16] MEDS: CLOPIDOGREL BISULFATE 75 MG TABLET PO (09:53)
[2023-06-16] MEDS: APIXABAN 5 MG TABLET PO ×2 (09:53→20:52)
[2023-06-16] MEDS: CEFEPIME 1 GM/NS 50 ML 1 GM/50 ML BAG IVPB (09:55)
[2023-06-16] MEDS: carvediloL 12.5 MG TABLET PO ×2 (09:59→20:51)
--- NOTE | 2023-06-16 11:25 | PM.IMPN ---
Progress Note: A&P Assessment and Plan (1) Hypoxia: Code(s): R09.02 - Hypoxemia Status: Acute (2) Breath shortness: Code(s): R06.02 - Shortness of breath Status: Acute (3) Hypertension: Qualifiers: Hypertension type: renovascular hypertension Qualified Code(s): I15.0 - Renovascular hypertension Code(s): I10 - Essential (primary) hypertension Status: Chronic (4) Arterial vascular disease: Code(s): I70.90 - Unspecified atherosclerosis Status: Acute (5) Coronary artery disease: Qualifiers: Coronary Disease-Associated Artery/Lesion type: chronic coronary microvascular dysfunction Qualified Code(s): I25.85 - Chronic coronary microvascular dysfunction Code(s): I25.10 - Atherosclerotic heart disease of [place] coronary artery without angina pectoris Status: Chronic (6) CKD (chronic kidney disease) requiring chronic dialysis: Code(s): N18.6 - End stage renal disease; Z99.2 - Dependence on renal dialysis Status: Acute (7) History of left below knee amputation: Code(s): Z89.512 - Acquired absence of left leg below knee Status: Acute (8) Pulmonary edema: Qualifiers: Chronicity: chronic Qualified Code(s): J81.1 - Chronic pulmonary edema Code(s): J81.1 - Chronic pulmonary edema Status: Acute (9) Diabetes: Qualifiers: Diabetes mellitus complication status: with other specified complication Diabetes mellitus termite inspector insulin use: with termite inspector use Diabetes mellitus type: type 2 Qualified Code(s): E11.69 - Type 2 diabetes mellitus with other specified complication; Z79.4 - buttermaker (current) use of insulin Code(s): E11.9 - Type 2 diabetes mellitus without complications Status: Acute (10) Acute exacerbation of CHF (congestive heart failure): Qualifiers: Heart failure type: diastolic Qualified Code(s): I50.33 - Acute on chronic diastolic (congestive) heart failure Code(s): I50.9 - Heart failure, unspecified Status: Acute (11) Anemia: Qualifiers: Anemia type: due to chronic kidney disease Chronic kidney disease stage: on chronic dialysis Qualified Code(s): N18.6 - End stage renal disease; D63.1 - Anemia in chronic kidney disease; Z99.2 - Dependence on renal dialysis Code(s): D64.9 - Anemia, unspecified Status: Chronic Plan SOB/Hypoxia-Improving -89% POA -placed on 2L supplemental oxygen with improvement wean as as tolerated -Missed her dialysis -CXR showing pulmonary edema/new worsening infiltrates Aspiration PNA vs HCAP recent admission POA -pBNP elevated but trended down since last admission 06/05/2023 -F/U CXR 06/16/2023 show improvement to pulmonary edema -Productive cough note mucolytic started ESRD-chronic dialysis Acute on chronic renal failure -Missed dialysis -nephrology consulted -Dialysis scheduled 06/14 and 06/15 -Dialysis T/T/S (Saturday_06/18/2023) -Avoid nephrotoxic drugs. -Monitor antihypertensive drug therapy. -Avoid NSAIDs. -strict I&O's -fluid restriction -Routine CMP monitoring GFR. -Monitor electrolytes especially potassium. -Antibiotic doses depending on creatinine clearance. -Pharmacy does medications. UTI 06/01/2024 -Klebs aerogenes -was discharged on amoxicillin-resistant -Switch to cefepime IVPB Aspiration PNA vs HCAP?? -CXR pulmonary edema with worsening infilitration -No leukocytosis -Barium swallow trace dysphagia with thin liquids will follow speech recommendations -Continued PT PO abx from home -appears this is more fluid overload from missing dialysis -Productive cough note mucolytic started Elevated Troponin -Trending flat -was seen by cardiology 06/05/2023 -likey ischemic demand chronically elevated ESRD -Denies CP -Does not want any interventions -Last ECHO 11/23 diastolic dysfunction LVEF 60-65% CAD -CABG -continue Plavix, statin, BB and IMDUR -Stre
[2023-06-16 12:16] LABS: Glucose Point of Care 108 mg/dl (65-105)
[2023-06-16] MEDS: INSULIN ASPART (*BKC) 100 UNITS/ML 8 UNITS SUB-Q ×2 (12:45→17:35)
[2023-06-16] MEDS: guaiFENesin 12 HR 600 MG TABCR 1200 MG PO ×2 (12:54→20:52)
[2023-06-16 17:11] LABS: Glucose Point of Care 154 mg/dl (65-105)
[2023-06-16 20:45] LABS: Glucose Point of Care 105 mg/dl (65-105)
[2023-06-16] MEDS: TOLNAFTATE 1% POWDER 45 GM BTL 1 APPLIC TOPICAL (20:52)
[2023-06-17] VITALS (14 sets, daily range): BP systolic 121–136; BP diastolic 38–56; PULSE 62–72; RESP 14–18; TEMP 36.4–36.8; O2SAT 94–100
[2023-06-17 00:16] LABS: Glucose Point of Care 121 mg/dl (65-105)
[2023-06-17 04:30] LABS: Glucose Point of Care 101 mg/dl (65-105)
[2023-06-17 05:43] LABS: Basophils Percent Auto 0.6 % (0.2-1.2); Eosinophils Absolute Auto 0.2 K/mm3 (0-0.3); Eosinophils Percent Auto 2.9 % (0-4.4); Hematocrit 31.3 % (37.0-47.0); Hemoglobin 9.2 g/dL (12.0-15.0); Immature Granulocyte Absolute 0.02 K/mm3 (0.00-0.031); Immature Granulocyte Percent A 0.4 % (0-0.5); Immature Platelet Fraction Pct 14.6 % (0.9-11.2); Lymphocytes Absolute Auto 1.18 K/mm3 (0.9-3.2); Lymphocytes Percent Auto 21.7 % (18.3-44.2); Mean Corpuscular HGB Conc 29.4 g/dl (32-36); Mean Corpuscular Hemoglobin 31.5 pg (26-34); Mean Corpuscular Volume 107.2 fl (80-100); Mean Platelet Volume 13.1 fl (7.4-10.4); Monocytes Absolute Auto 0.6 K/mm3 (0.1-0.6); Monocytes Percent Auto 10.7 % (2.6-8.5); Neutrophils Absolute Auto 3.5 K/mm3 (1.3-6.7); Neutrophils Percent Auto 63.7 % (45.5-73.1); Platelet Count Result 96 k/mm3 (150-375); Red Blood Count 2.92 M/mm3 (4.2-5.4); Red Cell Distribution Width 14.6 % (11.5-14.5); White Blood Count 5.4 K/mm3 (4.5-10.0)
[2023-06-17 05:54] LABS: Alanine Aminotransferase 8 U/L (6-35); Alkaline Phosphatase 72 U/L (38-126); Anion Gap 5 mmol/L (8-16); Aspartate Amino Transferase 15 U/L (14-36); Bilirubin,Total 0.8 mg/dL (0.2-1.3); Blood Urea Nitrogen 31 mg/dL (7-17); Calcium 8.1 mg/dL (8.4-10.2); Carbon Dioxide 35 mmol/L (22-30); Chloride 95 mmol/L (98-107); Estimated Glomerular Filt Rate 8; Glucose 106 mg/dL (65-110); Phosphorus 4.9 mg/dL (2.5-4.5); Potassium 4.6 mmol/L (3.4-5.0); Sodium 135 mmol/L (137-145)
[2023-06-17 08:47] LABS: Glucose Point of Care 110 mg/dl (65-105)
[2023-06-17] MEDS: GABAPENTIN 400 MG CAPSULE PO ×3 (09:33→18:04)
[2023-06-17] MEDS: INSULIN ASPART (*BKC) 100 UNITS/ML 8 UNITS SUB-Q (09:33)
[2023-06-17] MEDS: PANTOPRAZOLE 40 MG TABLET PO (09:33)
[2023-06-17] MEDS: carvediloL 12.5 MG TABLET PO ×2 (09:33→20:35)
[2023-06-17] MEDS: CLOPIDOGREL BISULFATE 75 MG TABLET PO (09:33)
[2023-06-17] MEDS: LORATADINE 10 MG TABLET PO (09:36)
[2023-06-17] MEDS: APIXABAN 5 MG TABLET PO ×2 (09:36→20:35)
[2023-06-17] MEDS: guaiFENesin 12 HR 600 MG TABCR 1200 MG PO ×2 (09:36→20:35)
[2023-06-17] MEDS: TOLNAFTATE 1% POWDER 45 GM BTL 1 APPLIC TOPICAL ×2 (09:36→20:43)
--- NOTE | 2023-06-17 10:12 | PM.IMPN ---
Progress Note: A&P Assessment and Plan (1) Hypoxia: Code(s): R09.02 - Hypoxemia Status: Acute (2) Breath shortness: Code(s): R06.02 - Shortness of breath Status: Acute (3) Hypertension: Qualifiers: Hypertension type: renovascular hypertension Qualified Code(s): I15.0 - Renovascular hypertension Code(s): I10 - Essential (primary) hypertension Status: Chronic (4) Arterial vascular disease: Code(s): I70.90 - Unspecified atherosclerosis Status: Acute (5) Coronary artery disease: Qualifiers: Coronary Disease-Associated Artery/Lesion type: chronic coronary microvascular dysfunction Qualified Code(s): I25.85 - Chronic coronary microvascular dysfunction Code(s): I25.10 - Atherosclerotic heart disease of [place] coronary artery without angina pectoris Status: Chronic (6) CKD (chronic kidney disease) requiring chronic dialysis: Code(s): N18.6 - End stage renal disease; Z99.2 - Dependence on renal dialysis Status: Acute (7) History of left below knee amputation: Code(s): Z89.512 - Acquired absence of left leg below knee Status: Acute (8) Pulmonary edema: Qualifiers: Chronicity: chronic Qualified Code(s): J81.1 - Chronic pulmonary edema Code(s): J81.1 - Chronic pulmonary edema Status: Acute (9) Diabetes: Qualifiers: Diabetes mellitus complication status: with other specified complication Diabetes mellitus guest relations receptionist insulin use: with guest relations receptionist use Diabetes mellitus type: type 2 Qualified Code(s): E11.69 - Type 2 diabetes mellitus with other specified complication; Z79.4 - electric serviceman (current) use of insulin Code(s): E11.9 - Type 2 diabetes mellitus without complications Status: Acute (10) Acute exacerbation of CHF (congestive heart failure): Qualifiers: Heart failure type: diastolic Qualified Code(s): I50.33 - Acute on chronic diastolic (congestive) heart failure Code(s): I50.9 - Heart failure, unspecified Status: Acute (11) Anemia: Qualifiers: Anemia type: due to chronic kidney disease Chronic kidney disease stage: on chronic dialysis Qualified Code(s): N18.6 - End stage renal disease; D63.1 - Anemia in chronic kidney disease; Z99.2 - Dependence on renal dialysis Code(s): D64.9 - Anemia, unspecified Status: Chronic Plan SOB/Hypoxia-Improving -89% POA -placed on 2L supplemental oxygen with improvement wean as as tolerated -Missed her dialysis -CXR showing pulmonary edema/new worsening infiltrates Aspiration PNA vs HCAP recent admission POA -pBNP elevated but trended down since last admission 06/05/2023 -F/U CXR 06/16/2023 show improvement to pulmonary edema -Productive cough mucolytic started -underlaying ALANNA?? recommended O/P sleep study doesn't want a CPAP ESRD-chronic dialysis Acute on chronic renal failure -Missed dialysis -nephrology consulted -Dialysis scheduled 06/14 and 06/15 -Dialysis T/T/S (Saturday_06/18/2023) -Avoid nephrotoxic drugs. -Monitor antihypertensive drug therapy. -Avoid NSAIDs. -strict I&O's -fluid restriction -Routine CMP monitoring GFR. -Monitor electrolytes especially potassium. -Antibiotic doses depending on creatinine clearance. -Pharmacy does medications. UTI 06/01/2024 -Klebs aerogenes -was discharged on amoxicillin-resistant -Switch to cefepime IVPB Aspiration PNA vs HCAP?? -CXR pulmonary edema with worsening infilitration -No leukocytosis -Barium swallow trace dysphagia with thin liquids will follow speech recommendations -Continued PT PO abx from home -appears this is more fluid overload from missing dialysis -Productive cough note mucolytic started Elevated Troponin -Trending flat -was seen by cardiology 06/05/2023 -likey ischemic demand chronically elevated ESRD -Denies CP -Does not want any interventions -Last ECHO 11/23 diastolic dysfunction LVEF 60-65%
--- NOTE | 2023-06-17 11:46 | PM.PNNEP ---
Progress Note: A&P Assessment and Plan (1) End stage renal disease: Code(s): N18.6 - End stage renal disease Status: Chronic Assessment and Plan: HD tomorrow continue T/T/S dialysis schedule from then on while hospitalized follow electrolytes, volume status, and clearance (2) Shortness of breath: Code(s): R06.02 - Shortness of breath Status: Acute Assessment and Plan: some clinical improvement this is multifactorial, likely related to several issues: pulmonary edema/CHF suspected pneumonia - aspiration? underlying history of COPD reactive airway disease does have coronary disease (but refusing further intervention) continue current therapy (3) Pneumonia: Code(s): J18.9 - Pneumonia, unspecified organism Status: Acute Assessment and Plan: as suggested by admission CXR aspiration? on antibiotics (4) Urinary tract infection: Code(s): N39.0 - Urinary tract infection, site not specified Status: Acute Assessment and Plan: urine culture with Klebs aerogenes (Enterobacter) on antibiotics (5) Hypertension: Qualifiers: Hypertension type: renovascular hypertension Qualified Code(s): I15.0 - Renovascular hypertension Code(s): I10 - Essential (primary) hypertension Status: Chronic Assessment and Plan: reasonable control follow trend of hemodynamics (6) Anemia: Qualifiers: Anemia type: due to chronic kidney disease Chronic kidney disease stage: on chronic dialysis Qualified Code(s): N18.6 - End stage renal disease; D63.1 - Anemia in chronic kidney disease; Z99.2 - Dependence on renal dialysis Code(s): D64.9 - Anemia, unspecified Status: Chronic Assessment and Plan: due to ESRD and acute illness Epogen with HD follow H/H (7) Insulin dependent type 2 diabetes mellitus: Code(s): E11.9 - Type 2 diabetes mellitus without complications; Z79.4 - long term care phlebotomist (current) use of insulin Status: Chronic Assessment and Plan: follow accu-cheks glycemic control per hospitalists Will continue to follow. Subjective Date/time seen: 06/17/23 11:46 Interval history: Follow-up for end stage renal disease on hemodialysis. Chart reviewed since last seen -- no acute issues/complaints voiced at this time; breathing/respiratory status seems stable; no events overnight or earlier this AM; no apparent distress noted. Exam Narrative: General: elderly female in NAD Heart: normal S1 and S2; no rub Lungs: clear anteriorly; decreased at bases Abdomen: soft, nontender, nondistended, positive bowel sounds Extremities: no cyanosis or clubbing; no edema; s/p left BKA and right AKA Skin: warm and dry Objective Data Vital Signs Vital Signs: Vital Signs Temp Pulse Resp BP Pulse Ox O2 Del Method O2 Flow Rate 06/17/23 11:24 94 Nasal Cannula 2 06/17/23 10:41 64 14 126/56 L 95 06/17/23 09:33 64 06/17/23 04:00 97.5 F L 64 18 136/53 L 100 06/17/23 04:00 66 06/17/23 00:00 65 06/16/23 23:57 97.3 F L 65 18 143/54 H 98 06/16/23 20:00 67 18 96 Nasal Cannula 2 06/16/23 20:00 68 06/16/23 20:51 67 06/16/23 20:00 98.1 F 67 18 141/47 H 96 06/16/23 18:40 97.0 F L 67 16 153/51 H 96 06/16/23 16:00 67 Intake/Output Intake/Output: Intake & Output 06/14/23 06/15/23 06/16/23 06/17/23 23:59 23:59 23:59 23:59 Intake Total 090 212 5866 860 Output Total 1999 1999 Balance -1400 -1660 1120 860 Meds/Results Medications: Active Medications Generic Name Dose Route Start Last Admin Trade Name Freq PRN Reason Stop Dose Admin Acetaminophen 650 mg 06/13/23 12:51 Acetaminophen 325 Mg Tablet PO Q4H PRN Mild Pain (1-3) or Fever Hydrocodone Bitart/Acetaminophen 1 tab 06/13/23 12:51 Hydrocodone/Acetaminophen (*Crx) 5-
--- NOTE | 2023-06-17 11:46 | P.PNNP_ITS ---
Progress Note: A&P Assessment and Plan (1) End stage renal disease: Code(s): N18.6 - End stage renal disease Status: Chronic Assessment and Plan: * HD tomorrow * continue T/T/S dialysis schedule from then on while hospitalized * follow electrolytes, volume status, and clearance (2) Shortness of breath: Code(s): R06.02 - Shortness of breath Status: Acute Assessment and Plan: * some clinical improvement * this is multifactorial, likely related to several issues: * pulmonary edema/CHF * suspected pneumonia - aspiration? * underlying history of COPD * reactive airway disease * does have coronary disease (but refusing further intervention) * continue current therapy (3) Pneumonia: Code(s): J18.9 - Pneumonia, unspecified organism Status: Acute Assessment and Plan: * as suggested by admission CXR * aspiration? * on antibiotics (4) Urinary tract infection: Code(s): N39.0 - Urinary tract infection, site not specified Status: Acute Assessment and Plan: * urine culture with Klebs aerogenes (Enterobacter) * on antibiotics (5) Hypertension: Qualifiers: Hypertension type: renovascular hypertension Qualified Code(s): I15.0 - Renovascular hypertension Code(s): I10 - Essential (primary) hypertension Status: Chronic Assessment and Plan: * reasonable control * follow trend of hemodynamics (6) Anemia: Qualifiers: Anemia type: due to chronic kidney disease Chronic kidney disease s tage: on chronic dialysis Qualified Code(s): N18.6 - End stage renal disease; D63.1 - Anemia in chronic kidney disease; Z99.2 - Dependence on renal dialysis Code(s): D64.9 - Anemia, unspecified Status: Chronic Assessment and Plan: * due to ESRD and acute illness * Epogen with HD * follow H/H (7) Insulin dependent type 2 diabetes mellitus: Code(s): E11.9 - Type 2 diabetes mellitus without complications; Z79.4 - [facility] (c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 Subjective Date/time seen: 06/17/23 11:46 Interval history: Follow-up for end stage renal disease on hemodialysis. Chart reviewed since last seen -- no acute issues/complaints voiced at this time; breathing/respiratory status seems stable; no events overnight or earlier this AM; no apparent distress noted. Exam Narrative: General: elderly female in NAD Heart: normal S1 and S2; no rub Lungs: clear anteriorly; decreased at bases Abdomen: soft, nontender, nondistended, positive bowel sounds Extremities: no cyanosis or clubbing; no edema; s/p left BKA and right AKA Skin: warm and dry Objective Data Vital Signs Vital Signs: Vital Signs Temp Pulse Resp BP Pulse Ox O2 Del Method O2 Flow Rate 06/17/23 11:24 94 Nasal Cannula 2 06/17/23 10:41 64 14 126/56 L 95 06/17/23 09:33 64 06/17/23 04:00 97.5 F L 64 18 136/53 L 100 06/17/23 04:00 66 06/17/23 00:00 65 06/16/23 23:57 97.3 F L 65 18 143/54 H 98 06/16/23 20:00 67 18 96 Nasal Cannula 2 06/16/23 20:00 68 06/16/23 20:51 67
[2023-06-17 12:07] LABS: Glucose Point of Care 93 mg/dl (65-105)
[2023-06-17] MEDS: CALCIUM CARBONATE (TUMS) 500 MG (200 MG ELEMENTAL) 600 MG PO ×2 (12:58→18:03)
[2023-06-17 17:00] LABS: Glucose Point of Care 91 mg/dl (65-105)
[2023-06-17 20:32] LABS: Glucose Point of Care 137 mg/dl (65-105)
[2023-06-17] MEDS: INSULIN GLARGINE (*BKC) 100 UNITS/ML 14 UNITS SUB-Q (20:35)
[2023-06-18] VITALS (32 sets, daily range): BP systolic 88–144; BP diastolic 40–73; PULSE 50–96; RESP 14–18; TEMP 36.3–37.8; O2SAT 95–100
[2023-06-18 05:09] LABS: Glucose Point of Care 107 mg/dl (65-105)
[2023-06-18 06:02] LABS: Basophils Percent Auto 0.7 % (0.2-1.2); Eosinophils Absolute Auto 0.2 K/mm3 (0-0.3); Eosinophils Percent Auto 3.2 % (0-4.4); Hematocrit 32.9 % (37.0-47.0); Hemoglobin 9.6 g/dL (12.0-15.0); Immature Granulocyte Absolute 0.04 K/mm3 (0.00-0.031); Immature Granulocyte Percent A 0.7 % (0-0.5); Immature Platelet Fraction Pct 14.9 % (0.9-11.2); Lymphocytes Absolute Auto 1.63 K/mm3 (0.9-3.2); Lymphocytes Percent Auto 27.3 % (18.3-44.2); Mean Corpuscular HGB Conc 29.2 g/dl (32-36); Mean Corpuscular Hemoglobin 31.4 pg (26-34); Mean Corpuscular Volume 107.5 fl (80-100); Mean Platelet Volume 13.6 fl (7.4-10.4); Monocytes Absolute Auto 0.6 K/mm3 (0.1-0.6); Monocytes Percent Auto 9.5 % (2.6-8.5); Neutrophils Absolute Auto 3.5 K/mm3 (1.3-6.7); Neutrophils Percent Auto 58.6 % (45.5-73.1); Platelet Count Result 106 k/mm3 (150-375); Red Blood Count 3.06 M/mm3 (4.2-5.4); Red Cell Distribution Width 14.7 % (11.5-14.5)
[2023-06-18 06:11] LABS: Alanine Aminotransferase 7 U/L (6-35); Alkaline Phosphatase 76 U/L (38-126); Anion Gap 7 mmol/L (8-16); Aspartate Amino Transferase 15 U/L (14-36); Blood Urea Nitrogen 41 mg/dL (7-17); Calcium 7.6 mg/dL (8.4-10.2); Carbon Dioxide 32 mmol/L (22-30); Chloride 96 mmol/L (98-107); Estimated Glomerular Filt Rate 6; Glucose 93 mg/dL (65-110); Potassium 4.8 mmol/L (3.4-5.0); Sodium 135 mmol/L (137-145)
--- NOTE | 2023-06-18 07:25 | P.CDI_ITS ---
CDI Query Clarification Request Documentation in the medical record indicates that this patient has : BMI 45.1 Based on your medical judgement , can you further clarify in the progress notes the diagnosis associated with this finding if known, in the progress notes such as: * Overweight * Obesity * Morbid Obesity * Other condition (please specify) * None of the above/Not applicable/ Unknown <Rosemary Flores RN - Last Filed: 06/18/23 07:30> Clarified Diagnosis Clarified Diagnosis: Morbid obesity <Rosemary Lopez APRN - Last Filed: 06/18/23 10:10> Provider Comments Obesity -encourage increased on physical activity and lifestyle modifications -Stress monitoring and eating disorder evaluation. -encourage outpatient weight loss clinic -BMI . -Diet exercise counseling done. -consult to dietitian <Rosemary Lopez APRN - Last Filed: 06/18/23 10:10>
[2023-06-18] MEDS: LORATADINE 10 MG TABLET PO (08:28)
[2023-06-18] MEDS: carvediloL 12.5 MG TABLET PO ×2 (08:28→19:53)
[2023-06-18] MEDS: APIXABAN 5 MG TABLET PO ×2 (08:28→19:54)
[2023-06-18] MEDS: PANTOPRAZOLE 40 MG TABLET PO (08:28)
[2023-06-18] MEDS: GABAPENTIN 400 MG CAPSULE PO ×3 (08:28→18:04)
[2023-06-18] MEDS: CALCIUM CARBONATE (TUMS) 500 MG (200 MG ELEMENTAL) 600 MG PO ×3 (08:28→18:03)
[2023-06-18] MEDS: guaiFENesin 12 HR 600 MG TABCR 1200 MG PO ×2 (08:28→19:53)
[2023-06-18] MEDS: CLOPIDOGREL BISULFATE 75 MG TABLET PO (08:28)
[2023-06-18] MEDS: TOLNAFTATE 1% POWDER 45 GM BTL 1 APPLIC TOPICAL ×2 (08:31→19:53)
[2023-06-18 08:37] LABS: Glucose Point of Care 93 mg/dl (65-105)
[2023-06-18] MEDS: HEPARIN SODIUM 1,000 UNITS/ML VIAL 1000 UNITS IV PUSH (09:21)
[2023-06-18] MEDS: HEPARIN SODIUM 1,000 UNITS/ML VIAL 500 UNITS IV PUSH ×4 (09:25→12:42)
--- NOTE | 2023-06-18 10:20 | P.PNNP_ITS ---
Progress Note: A&P Assessment and Plan (1) End stage renal disease: Code(s): N18.6 - End stage renal disease Status: Chronic Assessment and Plan: * HD today * continue T/T/S dialysis schedule from then on while hospitalized * follow electrolytes, volume status, and clearance (2) Shortness of breath: Code(s): R06.02 - Shortness of breath Status: Acute Assessment and Plan: * some clinical improvement * this is multifactorial, likely related to several issues: * pulmonary edema/CHF * suspected pneumonia - aspiration? * underlying history of COPD * reactive airway disease * does have coronary disease (but refusing further intervention) * continue current therapy (3) Pneumonia: Code(s): J18.9 - Pneumonia, unspecified organism Status: Acute Assessment and Plan: * as suggested by admission CXR * aspiration? * on antibiotics (4) Urinary tract infection: Code(s): N39.0 - Urinary tract infection, site not specified Status: Acute Assessment and Plan: * urine culture with Klebs aerogenes (Enterobacter) * on antibiotics (5) Hypertension: Qualifiers: Hypertension type: renovascular hypertension Qualified Code(s): I15.0 - Renovascular hypertension Code(s): I10 - Essential (primary) hypertension Status: Chronic Assessment and Plan: * reasonable control * follow trend of hemodynamics (6) Anemia: Qualifiers: Anemia type: due to chronic kidney disease Chronic kidney disease stag e: on chronic dialysis Qualified Code(s): N18.6 - End stage renal disease; D63.1 - Anemia in chronic kidney disease; Z99.2 - Dependence on renal dialysis Code(s): D64.9 - Anemia, unspecified Status: Chronic Assessment and Plan: * due to ESRD and acute illness * Epogen with HD * follow H/H (7) Insulin dependent type 2 diabetes mellitus: Code(s): E11.9 - Type 2 diabetes mellitus without complications; Z79.4 - penitentiary (c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 Subjective Date/time seen: 06/18/23 10:20 Interval history: Follow-up for end stage renal disease on hemodialysis. Tolerating dialysis treatment at the time of my visit (seen on HD at 10:10AM); no apparent distress noted; no issues/events overnight or earlier this morning; asking me about possible discharge today Exam Narrative: General: elderly female in NAD Heart: normal S1 and S2; no rub Lungs: clear anteriorly; decreased at bases Abdomen: soft, nontender, nondistended, positive bowel sounds Extremities: no cyanosis or clubbing; no edema; s/p left BKA and right AKA Skin: warm and intact Objective Data Vital Signs Vital Signs: Vital Signs Temp Pulse Resp BP Pulse Ox O2 Del Method O2 Flow Rate 06/18/23 10:20 62 88/45 L 06/18/23 10:00 62 100/51 L 06/18/23 08:34 60 14 135/65 95 06/18/23 08:28 60 06/18/23 07:53 98 Nasal Cannula 2 06/18/23 09:40 60 139/60 06/18/23 09:25 61 140/61 06/18/23 09:25 2 06/18/23 09:11 97.7 F 62 18 143/62 H 06/18/23 04:03 61 06/18/23 04:30 97.3 F L
--- NOTE | 2023-06-18 10:20 | PM.PNNEP ---
Progress Note: A&P Assessment and Plan (1) End stage renal disease: Code(s): N18.6 - End stage renal disease Status: Chronic Assessment and Plan: HD today continue T/T/S dialysis schedule from then on while hospitalized follow electrolytes, volume status, and clearance (2) Shortness of breath: Code(s): R06.02 - Shortness of breath Status: Acute Assessment and Plan: some clinical improvement this is multifactorial, likely related to several issues: pulmonary edema/CHF suspected pneumonia - aspiration? underlying history of COPD reactive airway disease does have coronary disease (but refusing further intervention) continue current therapy (3) Pneumonia: Code(s): J18.9 - Pneumonia, unspecified organism Status: Acute Assessment and Plan: as suggested by admission CXR aspiration? on antibiotics (4) Urinary tract infection: Code(s): N39.0 - Urinary tract infection, site not specified Status: Acute Assessment and Plan: urine culture with Klebs aerogenes (Enterobacter) on antibiotics (5) Hypertension: Qualifiers: Hypertension type: renovascular hypertension Qualified Code(s): I15.0 - Renovascular hypertension Code(s): I10 - Essential (primary) hypertension Status: Chronic Assessment and Plan: reasonable control follow trend of hemodynamics (6) Anemia: Qualifiers: Anemia type: due to chronic kidney disease Chronic kidney disease stage: on chronic dialysis Qualified Code(s): N18.6 - End stage renal disease; D63.1 - Anemia in chronic kidney disease; Z99.2 - Dependence on renal dialysis Code(s): D64.9 - Anemia, unspecified Status: Chronic Assessment and Plan: due to ESRD and acute illness Epogen with HD follow H/H (7) Insulin dependent type 2 diabetes mellitus: Code(s): E11.9 - Type 2 diabetes mellitus without complications; Z79.4 - alf (current) use of insulin Status: Chronic Assessment and Plan: follow accu-cheks glycemic control per hospitalists Will continue to follow. Subjective Date/time seen: 06/18/23 10:20 Interval history: Follow-up for end stage renal disease on hemodialysis. Tolerating dialysis treatment at the time of my visit (seen on HD at 10:10AM); no apparent distress noted; no issues/events overnight or earlier this morning; asking me about possible discharge today Exam Narrative: General: elderly female in NAD Heart: normal S1 and S2; no rub Lungs: clear anteriorly; decreased at bases Abdomen: soft, nontender, nondistended, positive bowel sounds Extremities: no cyanosis or clubbing; no edema; s/p left BKA and right AKA Skin: warm and intact Objective Data Vital Signs Vital Signs: Vital Signs Temp Pulse Resp BP Pulse Ox O2 Del Method O2 Flow Rate 06/18/23 10:20 62 88/45 L 06/18/23 10:00 62 100/51 L 06/18/23 08:34 60 14 135/65 95 06/18/23 08:28 60 06/18/23 07:53 98 Nasal Cannula 2 06/18/23 09:40 60 139/60 06/18/23 09:25 61 140/61 06/18/23 09:25 2 06/18/23 09:11 97.7 F 62 18 143/62 H 06/18/23 04:03 61 06/18/23 04:30 97.3 F L 58 L 16 128/43 L 100 06/18/23 00:01 63 06/17/23 20:03 72 06/17/23 20:40 96 Nasal Cannula 2 06/17/23 20:35 70 06/17/23 20:23 97.9 F 69 18 121/38 L 96 06/17/23 19:33 66 16 Nasal Cannula 2 06/17/23 16:00 63 06/17/23 12:00 98.2 F 65 16 125/42 L 100 06/17/23 12:00 62 06/17/23 11:24 94 Nasal Cannula 2 Intake/Output Intake/Output: Intake & Output 06/15/23 06/16/23 06/17/23 06/18/23 23:59 23:59 23:59 23:59 Intake Total 340 1120 1200 240 Output Total 2000 Balance -1660 1120 1200 240 Meds/Results Medications: Active Medications Generic Name Dose Route Start Last
--- NOTE | 2023-06-18 10:38 | PM.PNCARD ---
Progress Note: A&P Assessment and Plan (1) Acute exacerbation of CHF (congestive heart failure): Qualifiers: Heart failure type: diastolic Qualified Code(s): I50.33 - Acute on chronic diastolic (congestive) heart failure Code(s): I50.9 - Heart failure, unspecified Status: Acute Assessment and Plan: Volume removal with dialysis. (2) Elevated troponin: Code(s): R79.89 - Other specified abnormal findings of blood chemistry Status: Acute Assessment and Plan: Chronically elevated. Lower than recent admissions at present. Continue current medical therapy. (3) Hypertension: Qualifiers: Hypertension type: renovascular hypertension Qualified Code(s): I15.0 - Renovascular hypertension Code(s): I10 - Essential (primary) hypertension Status: Chronic Assessment and Plan: Continue carvedilol, losartan, nifedipine (4) CAD (coronary artery disease): Code(s): I25.10 - Atherosclerotic heart disease of [place] coronary artery without angina pectoris Status: Acute Assessment and Plan: Continue standard home regimen without change. Could up titrate isosorbide if need be. Plan Cardiology will sign off at this time. Please call us back if needed. Subjective Date/time seen: 06/18/23 10:38 Interval history: 72-year-old female with PMHx of but not limited to CHF, end-stage renal disease on HD TTS,? CAD s/p: CABG history of bilateral lower extremity amputations, diabetes, HTN, uses 2 L oxygen via [place] at night, presented to the emergency room via EMS with complaints of ongoing weakness, shortness of breath. Patient provides limited HPI, she reports ongoing weakness and shortness of breath, she states her sister did not want her to attend dialysis today.? Patient was recently seen and discharged from hospital 06/07/2023 with PN, acute respiratory failure with hypoxia.? spoke with her sister on the phone who reveals she is patient's caregiver, she states this morning she tried to get her sister and of bed to go to dialysis when she noticed patient was very lethargic? only providing 1 word answers sister states she became very concerned, she states she called the dialysis unit who encouraged her to bring her into dialysis for treatment, her sister was unsure of? patient's condition citing she decided to bring patient to emergency room.? Patient's sister states pt did not complain about any chest pain, nausea, vomiting, fever, chills. ? Of note long discussion with sister over the phone last hospital admission patient's troponin was elevated then downtrended, cardiology was consulted and the patient has decided to be DNR and does not wish further interventions.? The sister explained that she understood but she was very nervous about patient's condition and did not want her to at home, which is why she decided to bring her to the emergency room. ED workup reveals:? CHF exacerbation, CXR reveals congestive heart failure, pulmonary edema, lower lung infiltrates right greater than left, pulmonary edema, PN and/or aspiration, congestive changes and infiltrates are increased since 06/05/2023. Date of service 06/16/2023: She is feeling better. Less short of breath. Feels like she needs to cough a can not cough anything up but denies any chest pain. Date of service 06/18: Seen on dialysis this morning. Denies shortness of breath or chest pain. Tele without any significant arrhythmias. Review of Systems Review of Systems: All systems reviewed & are unremarkable except as noted in HPI and below (HPI) Exam Const: General: comfortable and no acute distress HENMT: Mouth: Yes moist mucous membranes Eyes: General: appearance normal, both eyes and all related structures Sclera: sclerae normal Resp: Effort & Inspection: normal respiratory effort Cardio: Rate: regular rate Rhythm: regular rhythm Skin: General skin exam: normal color Neuro: Speech: normal sp
[2023-06-18] MEDS: ALBUMIN HUMAN 25% 12.5 GM/50ML 50 ML IVPB (11:30)
[2023-06-18] MEDS: EPOETIN ALFA-EPBX 10,000 UNITS/ML VIAL 10000 UNITS IV PUSH (11:34)
[2023-06-18] MEDS: HEPARIN SODIUM 1,000 UNITS/ML VIAL 6000 UNITS IV PUSH (13:13)
[2023-06-18 13:44] LABS: Glucose Point of Care 161 mg/dl (65-105)
[2023-06-18] MEDS: INSULIN ASPART (*BKC) 100 UNITS/ML 8 UNITS SUB-Q ×2 (13:47→18:03)
--- NOTE | 2023-06-18 14:10 | PM.IMPN ---
Progress Note: A&P Assessment and Plan (1) Hypoxia: Code(s): R09.02 - Hypoxemia Status: Acute (2) Breath shortness: Code(s): R06.02 - Shortness of breath Status: Acute (3) Hypertension: Qualifiers: Hypertension type: renovascular hypertension Qualified Code(s): I15.0 - Renovascular hypertension Code(s): I10 - Essential (primary) hypertension Status: Chronic (4) Arterial vascular disease: Code(s): I70.90 - Unspecified atherosclerosis Status: Acute (5) Coronary artery disease: Qualifiers: Coronary Disease-Associated Artery/Lesion type: chronic coronary microvascular dysfunction Qualified Code(s): I25.85 - Chronic coronary microvascular dysfunction Code(s): I25.10 - Atherosclerotic heart disease of [place] coronary artery without angina pectoris Status: Chronic (6) CKD (chronic kidney disease) requiring chronic dialysis: Code(s): N18.6 - End stage renal disease; Z99.2 - Dependence on renal dialysis Status: Acute (7) History of left below knee amputation: Code(s): Z89.512 - Acquired absence of left leg below knee Status: Acute (8) Pulmonary edema: Qualifiers: Chronicity: chronic Qualified Code(s): J81.1 - Chronic pulmonary edema Code(s): J81.1 - Chronic pulmonary edema Status: Acute (9) Diabetes: Qualifiers: Diabetes mellitus complication status: with other specified complication Diabetes mellitus buttermaker insulin use: with buttermaker use Diabetes mellitus type: type 2 Qualified Code(s): E11.69 - Type 2 diabetes mellitus with other specified complication; 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 Code(s): E11.9 - Type 2 diabetes mellitus without complications Status: Acute (10) Acute exacerbation of CHF (congestive heart failure): Qualifiers: Heart failure type: diastolic Qualified Code(s): I50.33 - Acute on chronic diastolic (congestive) heart failure Code(s): I50.9 - Heart failure, unspecified Status: Acute (11) Anemia: Qualifiers: Anemia type: due to chronic kidney disease Chronic kidney disease stage: on chronic dialysis Qualified Code(s): N18.6 - End stage renal disease; D63.1 - Anemia in chronic kidney disease; Z99.2 - Dependence on renal dialysis Code(s): D64.9 - Anemia, unspecified Status: Chronic Plan SOB/Hypoxia-Improving -89% POA -placed on 2L supplemental oxygen with improvement wean as as tolerated -Missed her dialysis -CXR showing pulmonary edema/new worsening infiltrates Aspiration PNA vs HCAP recent admission POA -pBNP elevated but trended down since last admission 06/05/2023 -F/U CXR 06/16/2023 show improvement to pulmonary edema -Productive cough mucolytic started -underlaying ALANNA?? recommended O/P sleep study doesn't want a CPAP ESRD-chronic dialysis Acute on chronic renal failure -Missed dialysis -nephrology consulted -Dialysis scheduled 06/14 and 06/15 -Dialysis T/T/S (Saturday_06/18/2023) -Avoid nephrotoxic drugs. -Monitor antihypertensive drug therapy. -Avoid NSAIDs. -strict I&O's -fluid restriction -Routine CMP monitoring GFR. -Monitor electrolytes especially potassium. -Antibiotic doses depending on creatinine clearance. -Pharmacy does medications. UTI 06/01/2024 -Klebs aerogenes -was discharged on amoxicillin-resistant -Switch to cefepime IVPB Aspiration PNA vs HCAP?? -CXR pulmonary edema with worsening infilitration -No leukocytosis -Barium swallow trace dysphagia with thin liquids will follow speech recommendations -Continued PT PO abx from home -appears this is more fluid overload from missing dialysis -Productive cough note mucolytic started Elevated Troponin -Trending flat -was seen by cardiology 06/05/2023 -likey ischemic demand chronically elevated ESRD -Denies CP -Does not want any interventions -Last ECHO 11/23 diastolic dysfunction LVEF 60-6
[2023-06-18 16:15] LABS: Anion Gap 6 mmol/L (8-16); Blood Urea Nitrogen 16 mg/dL (7-17); Calcium 7.6 mg/dL (8.4-10.2); Carbon Dioxide 29 mmol/L (22-30); Chloride 101 mmol/L (98-107); Estimated Glomerular Filt Rate 13; Glucose 165 mg/dL (65-110); Potassium 3.8 mmol/L (3.4-5.0); Sodium 136 mmol/L (137-145)
[2023-06-18 17:18] LABS: Glucose Point of Care 127 mg/dl (65-105)
[2023-06-18] MEDS: SULFAMETHOXAZOLE/TRIMETHOPRIM 800/160 MG DS TABLET 1 TAB PO (18:06)
[2023-06-18 21:01] LABS: Glucose Point of Care 104 mg/dl (65-105)
[2023-06-18] MEDS: INSULIN GLARGINE (*BKC) 100 UNITS/ML 14 UNITS SUB-Q (21:37)
[2023-06-19] VITALS (8 sets, daily range): BP systolic 114–117; BP diastolic 44–51; PULSE 73–86; RESP 16; TEMP 36.6; O2SAT 97–100
[2023-06-19 01:08] LABS: Glucose Point of Care 114 mg/dl (65-105)
[2023-06-19 05:32] LABS: Basophils Percent Auto 0.6 % (0.2-1.2); Eosinophils Absolute Auto 0.1 K/mm3 (0-0.3); Eosinophils Percent Auto 2.9 % (0-4.4); Hematocrit 30.5 % (37.0-47.0); Hemoglobin 8.9 g/dL (12.0-15.0); Immature Granulocyte Absolute 0.02 K/mm3 (0.00-0.031); Immature Granulocyte Percent A 0.4 % (0-0.5); Lymphocytes Absolute Auto 1.37 K/mm3 (0.9-3.2); Lymphocytes Percent Auto 27.9 % (18.3-44.2); Mean Corpuscular HGB Conc 29.2 g/dl (32-36); Mean Corpuscular Hemoglobin 31.6 pg (26-34); Mean Corpuscular Volume 108.2 fl (80-100); Monocytes Absolute Auto 0.4 K/mm3 (0.1-0.6); Neutrophils Absolute Auto 2.9 K/mm3 (1.3-6.7); Neutrophils Percent Auto 59.2 % (45.5-73.1); Platelet Count Result 107 k/mm3 (150-375); Red Blood Count 2.82 M/mm3 (4.2-5.4); Red Cell Distribution Width 14.8 % (11.5-14.5); White Blood Count 4.9 K/mm3 (4.5-10.0)
[2023-06-19 05:47] LABS: Alanine Aminotransferase 7 U/L (6-35); Albumin Level 2.9 g/dL (3.5-5.1); Alkaline Phosphatase 73 U/L (38-126); Anion Gap 8 mmol/L (8-16); Aspartate Amino Transferase 14 U/L (14-36); Bilirubin,Total 0.8 mg/dL (0.2-1.3); Blood Urea Nitrogen 24 mg/dL (7-17); Calcium 7.5 mg/dL (8.4-10.2); Carbon Dioxide 26 mmol/L (22-30); Chloride 102 mmol/L (98-107); Estimated Glomerular Filt Rate 10; Glucose 111 mg/dL (65-110); Potassium 4.2 mmol/L (3.4-5.0); Sodium 136 mmol/L (137-145)
[2023-06-19 06:05] LABS: Anisocytosis 1+ (NORMAL); Hypochromasia 1+ (NORMAL); Ovalocytes 1+ (NORMAL); Schistocytes None Seen (NORMAL)
[2023-06-19 08:11] LABS: Glucose Point of Care 106 mg/dl (65-105)
[2023-06-19] MEDS: APIXABAN 5 MG TABLET PO (09:51)
[2023-06-19] MEDS: carvediloL 12.5 MG TABLET PO (09:51)
[2023-06-19] MEDS: SULFAMETHOXAZOLE/TRIMETHOPRIM 400/80 MG TABLET 1 TAB PO (09:52)
[2023-06-19] MEDS: PANTOPRAZOLE 40 MG TABLET PO (09:52)
[2023-06-19] MEDS: CLOPIDOGREL BISULFATE 75 MG TABLET PO (09:52)
[2023-06-19] MEDS: GABAPENTIN 400 MG CAPSULE PO ×2 (09:52→12:49)
[2023-06-19] MEDS: LORATADINE 10 MG TABLET PO (09:52)
[2023-06-19] MEDS: guaiFENesin 12 HR 600 MG TABCR 1200 MG PO (09:52)
[2023-06-19] MEDS: CALCIUM CARBONATE (TUMS) 500 MG (200 MG ELEMENTAL) 600 MG PO ×2 (09:53→12:49)
[2023-06-19] MEDS: INSULIN ASPART (*BKC) 100 UNITS/ML 8 UNITS SUB-Q ×2 (09:54→12:49)
[2023-06-19] MEDS: TOLNAFTATE 1% POWDER 45 GM BTL 1 APPLIC TOPICAL (09:56)
[2023-06-19 11:57] LABS: Glucose Point of Care 82 mg/dl (65-105)
--- NOTE | 2023-06-19 12:20 | P.DS_ITS ---
DS: Admitting Diagnosis Discharge Date 06/19/23 Admitting Diagnosis SOB DS: Discharge Diagnosis Discharge Diagnosis (1) Hypoxia: Code(s): R09.02 - Hypoxemia Status: Resolved Assessment and Plan: * CXR showing pulmonary edema/new worsening infiltrates Aspiration PNA vs HCAP recent admission POA * pBNP elevated but trended down since last admission 06/05/2023 * F/U CXR 06/16/2023 show improvement to pulmonary edema * underlaying ALANNA?? recommended O/P sleep study doesn't want a CPAP * continue with home oxygen needs (2) Hypertension: Qualifiers: Hypertension type: renovascular hypertension Qualified Code(s): I15.0 - Renovascular hypertension Code(s): I10 - Essential (primary) hypertension Status: Chronic (3) CKD (chronic kidney disease) requiring chronic dialysis: Code(s): N18.6 - End stage renal disease; Z99.2 - Dependence on renal dialysis Status: Chronic Assessment and Plan: * continue dialysis on T/T/S * nephrology followed while inpatient * labs stable at baseline (4) Pulmonary edema: Qualifiers: Chronicity: chronic Qualified Code(s): J81.1 - Chronic pulmonary edema Code(s): J81.1 - Chronic pulmonary edema Status: Acute Assessment and Plan: * CXR pulmonary edema with worsening infilitration, likely secondary to missing dialysis * Barium swallow trace dysphagia with thin liquids will follow speech recommendations (5) Diabetes: Qualifiers: Diabetes mellitus complication status: with other specified complication Diabetes mellitus detention insulin use: with terminal system operator use Diabetes mellitus type: type 2 Qualified Code(s): E11.69 - Type 2 diabetes mellitus with other specified complication; 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 HS * sliding scale insulin * resume patient's home long-acting * Diabetic diet (6) Acute exacerbation of CHF (congestive heart failure): Qualifiers: Heart failure type: diastolic Qualified Code(s): I50.33 - Acute on chronic diastolic (congestive) heart failure Code(s): I50.9 - Heart failure, unspecified Status: Acute Assessment and Plan: * as seen by cardiology 06/05/2023 * likey ischemic demand chronically elevated ESRD * Does not want any interventions * Last ECHO 11/23 diastolic dysfunction LVEF 60-65% * continue Plavix, statin, BB and IMDUR * Stress ordered for 06/17/2023-Cancelled per cardiology * Paroxysmal atrial fibrillation * yoly (7) Anemia: Qualifiers: Anemia type: due to chronic kidney disease Chronic kidney disease stage: on chronic dialysis Qualified Code(s): N18.6 - End stage renal disease; D63.1 - Anemia in chronic kidney disease; Z99.2 - Dependence on renal dialysis Code(s): D64.9 - Anemia, unspecified Status: Chronic Assessment and Plan: * Secondary to ESRD * Monitor H&H stable * No signs of bleeding DS: Summary Hospital Course Hospital Course: Patient is 72 YO female with PMH of CHF, end-stage renal disease on HD TTS, CAD s/p: CABG history of bilateral lower extremity amputations, diabetes, HTN, uses 2 L oxygen via NC at night admitted with complaints of ongoing weakness, shortness of breath. Patient was recently seen and discharged from hospital 06/07/2023 with PN, acute respiratory failure with hypoxia. Last hospital admission patient's troponin was elevated then downtrended, cardiol
--- NOTE | 2023-06-19 12:20 | PM.DS ---
DS: Admitting Diagnosis Discharge Date 06/19/23 Admitting Diagnosis SOB DS: Discharge Diagnosis Discharge Diagnosis (1) Hypoxia: Code(s): R09.02 - Hypoxemia Status: Resolved Assessment and Plan: CXR showing pulmonary edema/new worsening infiltrates Aspiration PNA vs HCAP recent admission POA pBNP elevated but trended down since last admission 06/05/2023 F/U CXR 06/16/2023 show improvement to pulmonary edema underlaying ALANNA?? recommended O/P sleep study doesn't want a CPAP continue with home oxygen needs (2) Hypertension: Qualifiers: Hypertension type: renovascular hypertension Qualified Code(s): I15.0 - Renovascular hypertension Code(s): I10 - Essential (primary) hypertension Status: Chronic (3) CKD (chronic kidney disease) requiring chronic dialysis: Code(s): N18.6 - End stage renal disease; Z99.2 - Dependence on renal dialysis Status: Chronic Assessment and Plan: continue dialysis on T/T/S nephrology followed while inpatient labs stable at baseline (4) Pulmonary edema: Qualifiers: Chronicity: chronic Qualified Code(s): J81.1 - Chronic pulmonary edema Code(s): J81.1 - Chronic pulmonary edema Status: Acute Assessment and Plan: CXR pulmonary edema with worsening infilitration, likely secondary to missing dialysis Barium swallow trace dysphagia with thin liquids will follow speech recommendations (5) Diabetes: Qualifiers: Diabetes mellitus complication status: with other specified complication 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 HS sliding scale insulin resume patient's home long-acting Diabetic diet (6) Acute exacerbation of CHF (congestive heart failure): Qualifiers: Heart failure type: diastolic Qualified Code(s): I50.33 - Acute on chronic diastolic (congestive) heart failure Code(s): I50.9 - Heart failure, unspecified Status: Acute Assessment and Plan: as seen by cardiology 06/05/2023 likey ischemic demand chronically elevated ESRD Does not want any interventions Last ECHO 11/23 diastolic dysfunction LVEF 60-65% continue Plavix, statin, BB and IMDUR Stress ordered for 06/17/2023-Cancelled per cardiology Paroxysmal atrial fibrillation yoly (7) Anemia: Qualifiers: Anemia type: due to chronic kidney disease Chronic kidney disease stage: on chronic dialysis Qualified Code(s): N18.6 - End stage renal disease; D63.1 - Anemia in chronic kidney disease; Z99.2 - Dependence on renal dialysis Code(s): D64.9 - Anemia, unspecified Status: Chronic Assessment and Plan: Secondary to ESRD Monitor H&H stable No signs of bleeding DS: Summary Hospital Course Hospital Course: Patient is 72 YO female with PMH of CHF, end-stage renal disease on HD TTS, CAD s/p: CABG history of bilateral lower extremity amputations, diabetes, HTN, uses 2 L oxygen via NC at night admitted with complaints of ongoing weakness, shortness of breath. Patient was recently seen and discharged from hospital 06/07/2023 with PN, acute respiratory failure with hypoxia. Last hospital admission patient's troponin was elevated then downtrended, cardiology was consulted and the patient has decided to be DNR and does not wish further interventions. ED workup showed: CHF exacerbation, CXR reveals congestive heart failure, pulmonary edema, lower lung infiltrates right greater than left, pulmonary edema, PN and/or aspiration, congestive changes and infiltrates are increased since 06/05/2023. Patient received dialysis while inpatient. Labs are at baseline for
== END 2023-06-19 13:35 | disposition home or self-care (01) | DRG 291 ==
LOC: ANHED 09:05 → ANHIMU 13:53 → ANH2MED 06-16 13:23
PROVIDERS: Internal Medicine Nephrology; Nurse Practitioner; Nurse Practitioner Family; Admitting Provider Internal Medicine; Emergency Provider Emergency Medicine; PCP Internal Medicine; Visit Provider Nurse Practitioner
DX: I13.2 Hypertensive heart and chronic kidney disease with heart failure and with stage 5 chronic kidney disease, or end stage renal disease (principal); I50.33 Acute on chronic diastolic (congestive) heart failure; N18.6 End stage renal disease; J18.9 Pneumonia, unspecified organism; Z68.42 Body mass index [BMI] 45.0-49.9, adult; I25.10 Atherosclerotic heart disease of native coronary artery without angina pectoris; E11.22 Type 2 diabetes mellitus with diabetic chronic kidney disease; E11.319 Type 2 diabetes mellitus with unspecified diabetic retinopathy without macular edema; E11.40 Type 2 diabetes mellitus with diabetic neuropathy, unspecified; E11.51 Type 2 diabetes mellitus with diabetic peripheral angiopathy without gangrene; I70.209 Unspecified atherosclerosis of native arteries of extremities, unspecified extremity; I48.0 Paroxysmal atrial fibrillation; D63.1 Anemia in chronic kidney disease; D69.6 Thrombocytopenia, unspecified; E78.5 Hyperlipidemia, unspecified; E66.01 Morbid (severe) obesity due to excess calories; N25.0 Renal osteodystrophy; R79.89 Other specified abnormal findings of blood chemistry; F41.9 Anxiety disorder, unspecified; F32.A Depression, unspecified; F17.210 Nicotine dependence, cigarettes, uncomplicated; Z99.2 Dependence on renal dialysis; Z79.01 Long term (current) use of anticoagulants; Z79.4 Long term (current) use of insulin; Z89.512 Acquired absence of left leg below knee; Z89.022 Acquired absence of left finger(s); Z89.611 Acquired absence of right leg above knee; Z95.1 Presence of aortocoronary bypass graft; Z98.1 Arthrodesis status; Z99.3 Dependence on wheelchair
CPT/HCPCS: 36415; 70450; 71045; 71046; 80048; 80053; 80069; 82948; 83735; 83880; 84100; 84484; 85025; 85055; 85610; 85730; 92611; 93005; 94667; 94668; 96374; 97162; 99285; A9270; G0257; G0378; J0692; J1644; J1815; J7030; P9047; Q5105

== ENCOUNTER 2023-06-20 13:18 | Observation (INO) | payer MEDICARE, OTHER, SELFPAY ==
[2023-06-20] VITALS (21 sets, daily range): BP systolic 87–139; BP diastolic 26–63; PULSE 72–104; RESP 16; TEMP 36.3–37.2; O2SAT 95–100
--- NOTE | ~2023-06-20 | XR_ITS ---
EXAMINATION: XR chest 1V portable INDICATION: Recent pneumonia, altered mental status TECHNIQUE: Portable AP chest at 1453 hours COMPARISON: 06/18/2023 FINDINGS: A large bore right internal jugular catheter ends with this tip in the right atrium. Cardio megaly is noted. A mild diffuse interstitial pattern persists but is decreased. No pleural effusion o r pneumothorax. Median sternotomy wires and mediastinal surgical clips are seen, likely from prior co ronary artery bypass grafting. IMPRESSION: 1. Cardiomegaly with improving pulmonary edema. Reviewed, dictated and finalized at location [facility] [employer]
[2023-06-20 10:54] LABS: Glucose Point of Care 148 mg/dl (65-105)
[2023-06-20 12:54] LABS: MRSA (PCR) NOT DETECTED (NOT DETECTE)
--- NOTE | 2023-06-20 13:05 | PM.IMHP ---
H&P: HPI History of Present Illness Date/Time: 06/20/23 13:05 Chief Complaint: unresponsive Narrative: 72-year-old female presents here with episode of altered mental status/unresponsiveness with past medical history of CHF, ESRD on HD, CAD, BLE amputations, DM, HTN, chronic anemia, and pAFib. [facility] in the afternoon back home where she lives with her sister, held the who is her primary caregiver. Patient reports that she was eating dinner at the table without incident and was helped to bed by her nieces. Patient does not remember anything after that and woke up at [facility]. Patient denied any precipitating chest pain, palpitations, or shortness of breath. Patient has had similar presentations prior to admission. Currently receives HD on Tuesdays, , Saturdays. No recent missed dialysis treatments. Per review of chart sent by [facility], patient arrived not answering questions or interactive during intake with spontaneous eye opening. Baseline is A/Ox3-4. Workup [facility] revealed normal electrolytes, BP of 146/73, CT head showed diffuse age-related atrophic changes with micro angiopathy changes. Blood sugar was 71 at EMS arrival. Arrived here today at her baseline, currently A&Ox3-4. Only current complaint is discomfort her buttock - reports she has a pressure sore. Discussed with patient her increase in hospital admissions since October of 2022, patient unable to identify any precipitating factors or factors at home that may be contributing to these frequent admissions. Patient is currently open to hospice care. Review of Systems Review of Systems: All systems reviewed & are unremarkable except as noted in HPI and below PMFSH Past Medical History Medical History Anxiety with depression Arterial vascular disease CAD (coronary artery disease) Chronic anemia Coronary artery disease COVID Digital arterial occlusive disease End-stage renal disease on hemodialysis Saturday, , Saturday. 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 Hemoglobin A1c was 6.8% in February 2020. Osteomyelitis Paroxysmal atrial fibrillation Peripheral vascular disease Renal osteodystrophy Thrombocytopenia Surgical History Surgical History Amputation of right forefoot Right 4th and 5th ray amputation in 04/2017. Right foot transmetatarsal amputation with partial fasciotomy due to wet gangrene, osteomyelitis, and necrotizing fasciitis in May 2017. 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 History of below-knee amputation of both lower extremities Left [id number] amputation in 2017. Right tyumu-[id number] amputation in 02/2020. 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 History of vascular surgery Right lower extremity stents in March 2017. Left lower extremity stent in 2014. Family History Family History Mother Diabetes mellitus Father Lung cancer Acute myocardial infarction Sibling Diabetes mellitus Social History Social History Social History: Smokes 3-4 cig/day Surrogate medical decision maker: Kierra Blanton (sister) or Cyndi Blanton (daughter). Code Status: DNR/DNI. Smoking packs per day: 0.25 Smoking cigarettes per day: 5.0 Years smoked: 61 Smoking pack-years: 15.25 Smoking
[2023-06-20] MEDS: CLOPIDOGREL BISULFATE 75 MG TABLET PO (14:11)
[2023-06-20 14:22] LABS: Basophils Percent Auto 0.5 % (0.2-1.2); Eosinophils Absolute Auto 0.1 K/mm3 (0-0.3); Eosinophils Percent Auto 2.1 % (0-4.4); Hematocrit 31.1 % (37.0-47.0); Hemoglobin 9.2 g/dL (12.0-15.0); Immature Granulocyte Absolute 0.02 K/mm3 (0.00-0.031); Immature Granulocyte Percent A 0.3 % (0-0.5); Immature Platelet Fraction Pct 11.7 % (0.9-11.2); Lymphocytes Absolute Auto 1.24 K/mm3 (0.9-3.2); Lymphocytes Percent Auto 21.6 % (18.3-44.2); Mean Corpuscular HGB Conc 29.6 g/dl (32-36); Mean Corpuscular Hemoglobin 31.9 pg (26-34); Mean Platelet Volume 13.7 fl (7.4-10.4); Monocytes Absolute Auto 0.4 K/mm3 (0.1-0.6); Monocytes Percent Auto 6.3 % (2.6-8.5); Neutrophils Percent Auto 69.2 % (45.5-73.1); Platelet Count Result 122 k/mm3 (150-375); Red Blood Count 2.88 M/mm3 (4.2-5.4); White Blood Count 5.7 K/mm3 (4.5-10.0)
[2023-06-20 14:29] LABS: Alanine Aminotransferase 7 U/L (6-35); Alkaline Phosphatase 70 U/L (38-126); Anion Gap 9 mmol/L (8-16); Aspartate Amino Transferase 24 U/L (14-36); Bilirubin,Total 0.8 mg/dL (0.2-1.3); Blood Urea Nitrogen 39 mg/dL (7-17); Calcium 7.5 mg/dL (8.4-10.2); Carbon Dioxide 25 mmol/L (22-30); Chloride 102 mmol/L (98-107); Estimated Glomerular Filt Rate 7; Glucose 126 mg/dL (65-110); Potassium 4.6 mmol/L (3.4-5.0); Sodium 136 mmol/L (137-145)
[2023-06-20 14:32] LABS: Hypochromasia 1+ (NORMAL); Ovalocytes 1+ (NORMAL); Platelet Estimate Decreased (Adequate); Schistocytes None Seen (NORMAL)
--- NOTE | 2023-06-20 16:15 | PM.CNNEP ---
Assessment and Plan Assessment and plan (1) End stage renal disease: Code(s): N18.6 - End stage renal disease Status: Chronic Assessment and Plan: HD today continue T/T/S dialysis schedule while hospitalized follow electrolytes, volume status, and clearance (2) AMS (altered mental status): Code(s): R41.82 - Altered mental status, unspecified Status: Acute Assessment and Plan: appears back to baseline CT Head at [place]: diffuse age-related atrophic changes with micro angiopathy changes follow mentation (3) Hypertension: Assessment and Plan: reasonable control resume home medications follow trend of hemodynamics (4) Anemia: Assessment and Plan: due to ESRD Epogen with HD follow trend of H/H (5) Insulin dependent type 2 diabetes mellitus: Assessment and Plan: follow accuchecks glycemic control per hospitalists I will continue follow the patient with you while she remains hospitalized make further recommendations during her hospital course. Thank you for allowing me to participate in the care of this patient. History of Present Illness Reason for Consult Consult date: 06/20/23 Reason for consult: end stage renal disease Chief Complaint Chief complaint: ams History of Present Illness Narrative: The patient is a 72-year-old female with a past medical history as outlined below who presented to [facility] Emergency for further evaluation of altered mental status/unresponsiveness. The patient was just recently discharged from [facility] yesterday. The patient was apparently eating dinner without incident and was taken the bed with the assistance of family members. At some point she apparently became altered with minimal responsiveness which led to her transport to [facility] for assessment. As far as I am aware, there were no precipitating factors before this episode of unresponsiveness and per review of ER records at [facility], she was not answering questions or interactive on arrival. Workup and evaluation demonstrated labs consistent with a known history of end-stage renal disease and she otherwise was hemodynamically stable. CT scan of the head showed no acute intracranial pathology. She was subsequently transferred here to [facility] as [facility] does not dialysis capabilities. On arrival here to [facility], her mentation appears to be back to baseline. Her only real complaint was that of some discomfort in her buttocks area where she has a pressure sore. Renal consultation was requested due to her end-stage renal disease. The patient is quite familiar to me as I have taking care of her on multiple/numerous occasions whenever she is admitted here to [facility]. The patient normally dialyzes on a Saturday, , Saturday dialysis schedule at [facility] under the care of Dr. Clarke. She does not recall any issues or problems with her last outpatient dialysis treatment. From my previous discussions with her outpatient dialysis unit, she sometimes has significant fluid gains in between her dialysis treatments and they sometimes have difficulty getting her down to her dry weight due to her issues/problems with intradialytic hypotension. This is further complicated by her lack of adherence to a fluid restriction as well. Currently, at the time my visit, she is in no apparent distress and is tolerating her dialysis treatment (seen on HD at 4:05PM). Review of Systems Review of Systems: As per HPI. [facility] Past Medical History Medical History Anxiety with depression Arterial vascular disease CAD (coronary artery disease) Chronic anemia Coronary artery disease COVID Digital arterial occlusive disease End-stage renal disease on hemodialysis Saturday, , Saturday. Enlarged uter
[2023-06-20] MEDS: EPOETIN ALFA-EPBX 10,000 UNITS/ML VIAL 10000 UNITS IV PUSH (17:49)
[2023-06-20] MEDS: APIXABAN 5 MG TABLET PO (20:22)
[2023-06-20] MEDS: ACETAMINOPHEN 325 MG TABLET 650 MG PO (20:22)
[2023-06-20] MEDS: ATORVASTATIN 40 MG TABLET PO (20:22)
[2023-06-20] MEDS: GABAPENTIN 400 MG CAPSULE PO (20:22)
[2023-06-20] MEDS: carvediloL 12.5 MG TABLET PO (20:23)
[2023-06-20] MEDS: CALCIUM CARBONATE (TUMS) 500 MG (200 MG ELEMENTAL) 400 MG PO (20:23)
[2023-06-20] MEDS: INSULIN GLARGINE (*BKC) 100 UNITS/ML 28 UNITS SUB-Q (20:28)
[2023-06-20] MEDS: INSULIN ASPART (*BKC) 100 UNITS/ML 10 UNITS SUB-Q (20:29)
[2023-06-20 20:59] LABS: Glucose Point of Care 138 mg/dl (65-105)
[2023-06-20 21:51] LABS: Amphetamine Screen Urine Negative (Negative); Barbiturate Screen Urine Negative (Negative); Benzodiazepines Screen Urine Negative (Negative); Cannabinoid Screen Urine Negative (Negative); Cocaine Screen Urine Negative (Negative); Methadone Screen Urine Negative (Negative); Opiate Screen Urine Negative (Negative); Phencyclidine Screen Urine Negative (Negative)
[2023-06-20 22:25] LABS: Appearance Urine Cloudy (Clear); Bacteria Urine 1+ /hpf; Bilirubin Urine Negative (Negative); Blood Urine 2+ (Negative); Color Urine Yellow (Yellow); Glucose Urine UA Trace mg/dL (Negative); Ketones Urine Trace mg/dL (Negative); Leukocyte Esterase Ur 2+ LEU/UL (Negative); Need Manual Microscopic Reviewed; Nitrate Urine Negative (Negative); Non Pathogenic Casts 0-2; Protein Urine 3+ mg/dL (Negative); Specific Grav Ur 1.017 (1.001-1.035); Squamous Epithelial Cell Urine Few /hpf (Few); Urobilinogen Urine 0.2 mg/dL (<2.0); WBC Urine 21-50 /hpf; pH Urine 5.5 (5.0-9.0)
[2023-06-20 22:26] LABS: Add Urine Microscopic? YES
[2023-06-21] VITALS (13 sets, daily range): BP systolic 100–162; BP diastolic 49–54; PULSE 66–94; RESP 16–18; TEMP 36.2–36.6; O2SAT 91–100
[2023-06-21 05:59] LABS: Hematocrit 30.2 % (37.0-47.0); Hemoglobin 8.9 g/dL (12.0-15.0); Mean Corpuscular HGB Conc 29.5 g/dl (32-36); Mean Corpuscular Hemoglobin 31.6 pg (26-34); Mean Corpuscular Volume 107.1 fl (80-100); Mean Platelet Volume 12.9 fl (7.4-10.4); Platelet Count Result 109 k/mm3 (150-375); Red Blood Count 2.82 M/mm3 (4.2-5.4); Red Cell Distribution Width 15.2 % (11.5-14.5); White Blood Count 4.7 K/mm3 (4.5-10.0)
[2023-06-21 06:17] LABS: Alanine Aminotransferase 8 U/L (6-35); Albumin Level 3.3 g/dL (3.5-5.1); Alkaline Phosphatase 71 U/L (38-126); Anion Gap 6 mmol/L (8-16); Aspartate Amino Transferase 24 U/L (14-36); Bilirubin,Total 0.5 mg/dL (0.2-1.3); Blood Urea Nitrogen 17 mg/dL (7-17); Carbon Dioxide 29 mmol/L (22-30); Chloride 105 mmol/L (98-107); Estimated Glomerular Filt Rate 12; Glucose 74 mg/dL (65-110); Magnesium 2.2 mg/dL (1.6-2.3); Phosphorus 3.9 mg/dL (2.5-4.5); Potassium 3.8 mmol/L (3.4-5.0); Sodium 140 mmol/L (137-145)
--- NOTE | 2023-06-21 09:00 | PCRCNOTE ---
Attempted ABG draw this morning was unable to obtain specimen. Pt refused further sticks for ABG. RT learnt pt is going hospice. RN aware of refusal of ABG.
[2023-06-21 09:17] LABS: Glucose Point of Care 140 mg/dl (65-105)
--- NOTE | 2023-06-21 09:30 | PM.IMPN ---
Progress Note: A&P Assessment and Plan (1) AMS (altered mental status): Code(s): R41.82 - Altered mental status, unspecified Status: Acute Assessment and Plan: Patient with altered mental status. No symptoms prior. Consider seizure vs cardiac dysrhythmia (less likely) vs overly tired vs TIA affecting the brain stem vs infectious vs untreated ALANNA Presented similarly on 05/06 and was diagnosed with a UTI and COVID. CT Head at [place]: diffuse age-related atrophic changes with micro angiopathy changes. Patient currently back at baseline, Patient would benefit from sleep study however patient refusing CPAP. UA noted. CXR showing CMG with improving pulm edema. Check ABG to exclude CO2 narcosis. Family and patient were provided information about hospice (2) End-stage renal disease on hemodialysis: Code(s): N18.6 - End stage renal disease; Z99.2 - Dependence on renal dialysis Status: Chronic Assessment and Plan: ESRD on HD - , , Sat. Had HD 06/20 Nephrology consulted Monitor I&Os, volume status and electrolytes Fluid restriction (3) Insulin dependent type 2 diabetes mellitus: Code(s): E11.9 - Type 2 diabetes mellitus without complications; Z79.4 - intermediate manager (current) use of insulin Status: Chronic Assessment and Plan: A1c 7.0 on 04/24/23. The patient's blood glucose was reviewed on 06/21 Glucose remains well controlled. Continue AccuCheks covering with sliding scale. Hypoglycemia protocol available as needed. Continue to monitor (4) Hypertension: Qualifiers: Hypertension type: renovascular hypertension Qualified Code(s): I15.0 - Renovascular hypertension Code(s): I10 - Essential (primary) hypertension Status: Chronic Assessment and Plan: Patient's blood pressure was reviewed on 06/21 Blood pressure remains well controlled. Will continue current medications. (5) Chronic anemia: Code(s): D64.9 - Anemia, unspecified Status: Chronic Assessment and Plan: Hgb low at 8-9 range. Anemia due to chronic renal failure/ESRD -Epogen with HD -daily CBC (6) CHF (congestive heart failure): Code(s): I50.9 - Heart failure, unspecified Status: Acute Assessment and Plan: Echo (11/2022): EF 60-65%, moderate left ventricular wall thickness, LV diastolic function is grade 1 dysfunction, no AV stenosis, trace MV and TV regurgitation, known pulmonary hypertension. CXR showing improving pulmonary edema Continue HD to control fluid status. (7) Complex care coordination: Code(s): Z71.89 - Other specified counseling Status: Acute Assessment and Plan: Frequent hospital admissions since October of 2022 -discharged on 06/19 around 1:30p, presented back to [place] that evening for AMS/unresponsive episode per chart review, patient has presented with this complaint multiple times. transferred here and admitted today on 06/20. -discussed patient's case with care coordination, multiple attempts have been made to discuss palliative care and hospice care with patient -POA: Cyndi Blanton, daughter. ([phone]) -caregiver: Kierra Blanton, sister. ([phone]) -patient open to discussing hospice care, daughter contacted and open to meeting to discuss/meet with care coordination. daughter available tomorrow 8-9 am. daughter raised some concerns that patient and patient's sister, Kierra, may have poor understanding of steps to take when she becomes short of breath or how to take care of her at home. Daughter also requesting that meeting remains between the patient and herself, that other family members are not involved. Care coordination notified and consult placed. Hospice met with patient and dtr this morning as an informational meeting. The patietn and dtr will talk among themselves about how they want to proceed. Plan Home Meds/Chronic Conditions -HLD: Continue home atorvastatin -OTC/[facility]
[2023-06-21] MEDS: carvediloL 12.5 MG TABLET PO ×2 (09:45→22:33)
[2023-06-21] MEDS: CALCIUM CARBONATE (TUMS) 500 MG (200 MG ELEMENTAL) 400 MG PO ×3 (09:45→17:37)
[2023-06-21] MEDS: GABAPENTIN 400 MG CAPSULE PO ×3 (09:45→17:37)
[2023-06-21] MEDS: APIXABAN 5 MG TABLET PO ×2 (09:45→22:33)
[2023-06-21] MEDS: INSULIN ASPART (*BKC) 100 UNITS/ML 10 UNITS SUB-Q (09:45)
[2023-06-21] MEDS: CLOPIDOGREL BISULFATE 75 MG TABLET PO (09:46)
[2023-06-21] MEDS: PANTOPRAZOLE 40 MG TABLET PO (09:46)
[2023-06-21] MEDS: LORATADINE 10 MG TABLET PO (09:46)
--- NOTE | 2023-06-21 11:08 | PM.PNNEP ---
Progress Note: A&P Assessment and Plan (1) End stage renal disease: Code(s): N18.6 - End stage renal disease Status: Chronic Assessment and Plan: HD tomorrow continue T/T/S dialysis schedule while hospitalized follow electrolytes, volume status, and clearance (2) AMS (altered mental status): Code(s): R41.82 - Altered mental status, unspecified Status: Acute Assessment and Plan: appears back to baseline CT Head at [place]: diffuse age-related atrophic changes with micro angiopathy changes follow mentation (3) Hypertension: Qualifiers: Hypertension type: renovascular hypertension Qualified Code(s): I15.0 - Renovascular hypertension Code(s): I10 - Essential (primary) hypertension Status: Chronic Assessment and Plan: reasonable control follow trend of hemodynamics (4) Anemia: Qualifiers: Anemia type: due to chronic kidney disease Chronic kidney disease stage: on chronic dialysis Qualified Code(s): N18.6 - End stage renal disease; D63.1 - Anemia in chronic kidney disease; Z99.2 - Dependence on renal dialysis Code(s): D64.9 - Anemia, unspecified Status: Chronic Assessment and Plan: due to ESRD and acute illness Epogen with HD follow H/H (5) Insulin dependent type 2 diabetes mellitus: Code(s): E11.9 - Type 2 diabetes mellitus without complications; Z79.4 - [facility] (current) use of insulin Status: Chronic Assessment and Plan: follow accu-cheks glycemic control per hospitalists Will continue to follow. Subjective Date/time seen: 06/21/23 11:08 Interval history: Follow-up for end stage renal disease on hemodialysis. Tolerated dialysis treatment yesterday without any issues or problems although fluid removal was limited due to hemodynamics/hypotension; patient and daughter met with hospice earlier today for informational purposes (unclear if hospice to be pursued at this time); Exam Narrative: General: elderly female in NAD Heart: normal S1 and S2; no rub Lungs: clear anteriorly; decreased at bases Abdomen: soft, nontender, nondistended, positive bowel sounds Extremities: no cyanosis or clubbing; no edema; s/p left BKA and right AKA Skin: warm and dry Objective Data Vital Signs Vital Signs: Vital Signs Temp Pulse Resp BP Pulse Ox O2 Del Method O2 Flow Rate 06/21/23 11:00 74 18 06/21/23 08:00 87 06/21/23 09:45 94 06/21/23 05:12 97.8 F 66 16 124/54 L 99 06/21/23 04:00 72 06/21/23 00:00 88 06/20/23 20:00 95 Nasal Cannula 2 06/20/23 20:00 102 H 06/20/23 20:23 89 06/20/23 20:00 97.4 F L 89 16 124/59 L 95 06/20/23 19:06 93 124/42 L 06/20/23 19:00 104 H 139/53 L 06/20/23 19:18 98.3 F 102 H 16 128/54 L 06/20/23 18:45 95 118/43 L 06/20/23 18:30 93 118/58 L 06/20/23 18:16 87 125/42 L 06/20/23 18:00 93 125/53 L 06/20/23 17:45 89 109/49 L 06/20/23 17:30 85 108/44 L 06/20/23 17:15 86 102/40 L 06/20/23 17:00 85 106/38 L 06/20/23 16:45 87 117/37 L 06/20/23 16:30 84 116/42 L Intake/Output Intake/Output: Intake & Output 06/18/23 06/19/23 06/20/23 06/21/23 23:59 23:59 23:59 23:59 Intake Total 120 282 Output Total 400 Balance -280 282 Meds/Results Medications: Active Medications Generic Name Dose Route Start Last Admin Trade Name Nba PRN Reason Stop Dose Admin Acetaminophen 650 mg 06/20/23 12:58 06/20/23 20:22 Acetaminophen 325 Mg Tablet PO 650 mg Q4H PRN Administration Mild Pain (1-3) or Fever Albuterol/Ipratropium 3 ml 06/21/23 14:00 06/21/23 13:49 Ipratropium 0.5 Mg/Albuterol Sulfate 2.5 Mg Ampul.Neb 3 Ml INHALATION 3 ml Q6HRT KEMI Administration Apixaban 5 mg 06/20/23 21:00 06/21/23 09:45 Apixaban 5 Mg Tablet PO
[2023-06-21 12:27] LABS: Glucose Point of Care 75 mg/dl (65-105)
[2023-06-21] MEDS: ISOSORBIDE MONONITRATE 60 MG TAB.ER.24H PO (12:42)
[2023-06-21] MEDS: IPRATROPIUM 0.5 MG/ALBUTEROL SULFATE 2.5 MG AMPUL.NEB 3 ML INHALATION ×2 (13:49→20:40)
--- NOTE | 2023-06-21 16:54 | PC.NURSE ---
kpatient refused covid swab stating its been done already and she doesn't want it done anymore.
[2023-06-21 17:29] LABS: Glucose Point of Care 106 mg/dl (65-105)
[2023-06-21] MEDS: INSULIN GLARGINE (*BKC) 100 UNITS/ML 28 UNITS SUB-Q (22:32)
[2023-06-21] MEDS: ATORVASTATIN 40 MG TABLET PO (22:33)
[2023-06-22] VITALS (8 sets, daily range): BP systolic 150–166; BP diastolic 53–63; PULSE 57–69; RESP 18–21; TEMP 36.2–37; O2SAT 97–100
--- NOTE | 2023-06-22 04:15 | PCRCNOTE ---
Patient did not want to be awakened for 0200 updraft treatment. Treatment to resume at 0800.
[2023-06-22 05:55] LABS: Hematocrit 31.1 % (37.0-47.0); Hemoglobin 8.9 g/dL (12.0-15.0); Immature Platelet Fraction Pct 10.8 % (0.9-11.2); Mean Corpuscular HGB Conc 28.6 g/dl (32-36); Mean Corpuscular Hemoglobin 31.9 pg (26-34); Mean Corpuscular Volume 111.5 fl (80-100); Mean Platelet Volume 13.1 fl (7.4-10.4); Platelet Count Result 118 k/mm3 (150-375); Red Blood Count 2.79 M/mm3 (4.2-5.4); Red Cell Distribution Width 15.6 % (11.5-14.5); White Blood Count 6.2 K/mm3 (4.5-10.0)
[2023-06-22 06:08] LABS: Alanine Aminotransferase 8 U/L (6-35); Albumin Level 3.5 g/dL (3.5-5.1); Alkaline Phosphatase 71 U/L (38-126); Anion Gap 7 mmol/L (8-16); Aspartate Amino Transferase 25 U/L (14-36); Bilirubin,Total 0.5 mg/dL (0.2-1.3); Blood Urea Nitrogen 25 mg/dL (7-17); Calcium 7.9 mg/dL (8.4-10.2); Carbon Dioxide 28 mmol/L (22-30); Chloride 106 mmol/L (98-107); Estimated Glomerular Filt Rate 7; Glucose 164 mg/dL (65-110); Magnesium 2.3 mg/dL (1.6-2.3); Phosphorus 5.4 mg/dL (2.5-4.5); Potassium 4.3 mmol/L (3.4-5.0); Sodium 141 mmol/L (137-145)
[2023-06-22 07:05] LABS: Glucose Point of Care 125 mg/dl (65-105)
[2023-06-22] MEDS: IPRATROPIUM 0.5 MG/ALBUTEROL SULFATE 2.5 MG AMPUL.NEB 3 ML INHALATION (08:14)
[2023-06-22 08:32] LABS: Glucose Point of Care 163 mg/dl (65-105)
--- NOTE | 2023-06-22 10:31 | PM.DS ---
DS: Admitting Diagnosis Discharge Date 06/22/23 Admitting Diagnosis Altered mental status. DS: Discharge Diagnosis Discharge Diagnosis (1) AMS (altered mental status): Code(s): R41.82 - Altered mental status, unspecified Status: Acute (2) End-stage renal disease on hemodialysis: Code(s): N18.6 - End stage renal disease; Z99.2 - Dependence on renal dialysis Status: Chronic (3) Insulin dependent type 2 diabetes mellitus: Code(s): E11.9 - Type 2 diabetes mellitus without complications; Z79.4 - penitentiary (current) use of insulin Status: Chronic (4) Hypertension: Qualifiers: Hypertension type: renovascular hypertension Qualified Code(s): I15.0 - Renovascular hypertension Code(s): I10 - Essential (primary) hypertension Status: Chronic (5) Chronic anemia: Code(s): D64.9 - Anemia, unspecified Status: Chronic (6) CHF (congestive heart failure): Code(s): I50.9 - Heart failure, unspecified Status: Acute (7) Complex care coordination: Code(s): Z71.89 - Other specified counseling Status: Acute DS: Summary Hospital Course Reason for hospitalization: 72yo female with ESRD, DM, CAD, HTN and pAFib who presents with altered mental status. She has had multiple hospitalizations recently usually returning to the hospital a few days after discharge (this is her 7th hospitalization since May). Please see H&P for details. Hospital Course: Patient presents with altered mental status. No symptoms prior. Consider seizure vs cardiac dysrhythmia (less likely) vs overly tired vs TIA vs infectious vs untreated ALANNA. Presented similarly on 05/06 and was diagnosed with a UTI and COVID. CT Head at [place]: diffuse age-related atrophic changes with micro angiopathy changes. Patient currently back at baseline. CXR showing CMG with improving pulm edema. UCx negative. BCx NGTD. ABG ordered but patient refused. Nephrology consulted to arrange for inpatient dialysis. Hospice as an option was discussed again with the patient and family. Patient and family met with hospice and have decided to return home with [facility]. Patient is due for dialysis today and she is refusing and just wants to go home and be comfortable. Patient was discharged home on 06/22/23. Status at Discharge Cognitive/behavioral status at discharge: stable Time Spent with Patient Time attestation: Total time spent providing and/or coordinating discharge services: 35 minutes Time spent: Greater than 30 minutes Exam Narrative: AF ? 98.6 150/53 66 18 99% 2L Gen - NARD lying semi recumbent in bed Chest - bibasilar inspiratory crackles with faint end-expiratory wheezes CV -irregularly irregular. S1-S2 Abd - Soft, NT/ND, Positive BS Ext - left BKA and right AKA. Psych - Nml mood and affect Skin - Warm and dry DS: Data Data Completed and Pending Labs on day of discharge: Labs from last 24 hours 06/22/23 06/22/23 06/21/23 08:29 05:38 22:04 WBC 6.2 RBC 2.79 L Hgb 8.9 L Hct 31.1 L MCV 111.5 H MCH 31.9 MCHC 28.6 L RDW 15.6 H Plt Count 118 L MPV 13.1 H % Immature Plt Fraction 10.8 Sodium 141 Potassium 4.3 Chloride 106 Carbon Dioxide 28 Anion Gap 7 L BUN 25 H Creatinine 5.60 H Estim Creat Clear Calc Not Reportable Estimated GFR 7 L Glucose 164 H POC Capillary Glucose 163 H 125 H Calcium 7.9 L Phosphorus 5.4 H Magnesium 2.3 Total Bilirubin 0.5 AST 25 ALT 8 Alkaline Phosphatase 71 Total Protein 6.0 L Albumin 3.5 06/21/23 06/21/23 17:26 12:20 WBC RBC Hgb Hct MCV MCH MCHC RDW Plt Count MPV % Immature Plt Fraction Sodium Potassium Chloride Carbon Dioxide Anion Gap BUN Creatinine Estim Creat Clear Calc Estimated GFR Glucose POC Capillary Glucose 106 H 75 Calcium Phosphorus Ma
[2023-06-22] MEDS: carvediloL 12.5 MG TABLET PO (10:39)
[2023-06-22] MEDS: GABAPENTIN 400 MG CAPSULE PO (10:39)
[2023-06-22] MEDS: APIXABAN 5 MG TABLET PO (10:40)
[2023-06-22] MEDS: LORATADINE 10 MG TABLET PO (10:40)
[2023-06-22] MEDS: CALCIUM CARBONATE (TUMS) 500 MG (200 MG ELEMENTAL) 400 MG PO (10:40)
[2023-06-22] MEDS: PANTOPRAZOLE 40 MG TABLET PO (10:40)
[2023-06-22] MEDS: CLOPIDOGREL BISULFATE 75 MG TABLET PO (10:40)
[2023-06-22] MEDS: ISOSORBIDE MONONITRATE 60 MG TAB.ER.24H PO (10:40)
== END 2023-06-22 12:02 | disposition hospice, home (50) ==
PROVIDERS: Internal Medicine; Student in an Organized Health Care Education/Training Program; Admitting Provider Internal Medicine; PCP Internal Medicine; Visit Provider Internal Medicine
DX: R41.82 Altered mental status, unspecified (principal); I13.2 Hypertensive heart and chronic kidney disease with heart failure and with stage 5 chronic kidney disease, or end stage renal disease; I50.9 Heart failure, unspecified; E11.22 Type 2 diabetes mellitus with diabetic chronic kidney disease; N18.6 End stage renal disease; I15.0 Renovascular hypertension; E11.51 Type 2 diabetes mellitus with diabetic peripheral angiopathy without gangrene; E11.319 Type 2 diabetes mellitus with unspecified diabetic retinopathy without macular edema; E11.21 Type 2 diabetes mellitus with diabetic nephropathy; E11.40 Type 2 diabetes mellitus with diabetic neuropathy, unspecified; Z99.3 Dependence on wheelchair; Z99.2 Dependence on renal dialysis; D63.1 Anemia in chronic kidney disease; I27.20 Pulmonary hypertension, unspecified; Z71.89 Other specified counseling; I25.10 Atherosclerotic heart disease of native coronary artery without angina pectoris; Z95.1 Presence of aortocoronary bypass graft; I48.0 Paroxysmal atrial fibrillation; R06.2 Wheezing; F41.8 Other specified anxiety disorders; E78.5 Hyperlipidemia, unspecified; Z98.62 Peripheral vascular angioplasty status; Z66 Do not resuscitate; Z89.512 Acquired absence of left leg below knee; Z89.511 Acquired absence of right leg below knee; Z89.012 Acquired absence of left thumb; Z89.022 Acquired absence of left finger(s); Z98.890 Other specified postprocedural states; Z87.01 Personal history of pneumonia (recurrent); Z86.16 Personal history of COVID-19; F17.210 Nicotine dependence, cigarettes, uncomplicated; Z79.4 Long term (current) use of insulin; Z79.02 Long term (current) use of antithrombotics/antiplatelets; Z79.01 Long term (current) use of anticoagulants; Z79.899 Other long term (current) drug therapy
CPT/HCPCS: 36415; 36600; 71045; 80053; 80307; 81001; 82948; 83735; 84100; 85025; 85027; 85055; 87040; 87086; 87088; 87641; 94640; A9270; G0257; G0378; G0379; J1644; J1815; J7030; P9047; Q5105